=== PATIENT | female | born 1950 | race Caucasian/White ===

== ENCOUNTER 2020-03-06 08:54 | Outpatient (CLI) | payer MEDICARE, MEDICAID, SELFPAY ==
--- NOTE | ~2020-03-06 | MR_ITS ---
EXAMINATION: MR pelvis wo/w con INDICATION: Right ovarian mass TECHNIQUE: Coronal SSFSE ARC, Sagittal T2 FRFSE small rskoh-zz-xlea, Coronal 2D FIESTA FatSat, Axial SSFSE BH ARC, Axial 3D DualEcho BH, Axial STIR, Axial DWI b=500, pre and dynamic postcontrast Axial L CINTHYA ARC COMPARISON: 08/03/2019 CONTRAST: Multihance, 10 cc FINDINGS: There is a stable 3.5 x 2.6 cm heterogeneously enhancing mass of the right adnexa. The mass enhances more vigorously than the adjacent uterus. There are no pathologically enlarged pelvic lymph nodes. No dilated loops of bowel are present. There is mild lumbar spondylosis. IMPRESSION: 1. Stable enhancing solid mass of the right adnexa. Differential is unchanged including ovarian neopl asm and pedunculated fibroid. Surgical consultation is recommended if not previously obtained. Reviewed, dictated and finalized at location A. IMPRESSION: 1. Stable enhancing solid mass of the right adnexa. Differential is unchanged i ncluding ovarian neoplasm and pedunculated fibroid. Surgical consultation is re commended if not previously obtained.
[2020-03-06 09:27] LABS: Estimated Glomerular Filt Rate 44
== END 2020-03-06 08:55 | disposition home or self-care (01) ==
PROVIDERS: PCP Internal Medicine
DX: N83.8 Other noninflammatory disorders of ovary, fallopian tube and broad ligament (principal)
CPT/HCPCS: 72197; A9577

== ENCOUNTER 2020-07-02 10:56 | Outpatient (NON) | payer MEDICARE, SELFPAY ==
[2020-07-02 11:19] LABS: Basophils Absolute Auto 0.05 K/mm3 (0.00-0.10); Basophils Percent Auto 0.7 % (0.0-1.0); Eosinophils Absolute Auto 0.27 K/mm3 (0.02-0.50); Hematocrit 48.2 % (35.0-42.0); Hemoglobin 14.8 g/dL (11.7-13.8); Immature Granulocyte Absolute 0.02 K/mm3 (0.00-0.00); Immature Granulocyte Percent A 0.3 % (0.0-0.0); Lymphocytes Absolute Auto 1.22 K/mm3 (1.10-4.50); Lymphocytes Percent Auto 18.1 % (18.0-42.0); Mean Corpuscular HGB Conc 30.7 g/dL (32.0-36.0); Mean Corpuscular Hemoglobin 28.3 pg (27.0-31.0); Mean Corpuscular Volume 92.2 fL (78.0-102.0); Mean Platelet Volume 10.7 fl (9.2-11.8); Monocytes Absolute Auto 0.71 K/mm3 (0.10-0.90); Monocytes Percent Auto 10.5 % (2.0-11.0); Neutrophils Absolute Auto 4.5 K/mm3 (1.7-7.2); Neutrophils Percent Auto 66.4 % (50.0-70.0); Platelet Count Result 275 K/mm3 (150-420); Red Blood Count 5.23 M/mm3 (4.20-5.40); Red Cell Distribution Width 13.6 % (11.6-14.4); White Blood Count 6.7 K/mm3 (4.8-10.8)
[2020-07-02 11:24] LABS: Add Urine Microscopic? NO; Appearance Urine Clear (Clear); Bilirubin Urine Negative (Negative); Blood Urine Negative (Negative); Color Urine Yellow (Yellow); Glucose Urine UA Negative (Negative); Ketones Urine Negative (Negative); Leukocyte Esterase Ur Negative LEU/UL (Negative); Nitrate Urine Negative (Negative); Protein Urine Negative (Negative); Specific Grav Ur 1.015 (1.010-1.020); Urobilinogen Urine 0.2 mg/dL (0.2-1.0)
[2020-07-02 11:50] LABS: Alanine Aminotransferase 24 U/L (14-59); Albumin Level 3.4 g/dL (3.4-5.0); Alkaline Phosphatase 74 U/L (46-116); Anion Gap 7 mmol/L (8-16); Aspartate Amino Transferase 18 U/L (15-37); Bilirubin,Total 0.6 mg/dL (0.00-1.00); Blood Urea Nitrogen 17 mg/dL (7-18); Calcium 9.1 mg/dL (8.5-10.1); Carbon Dioxide 32 mmol/L (21-32); Chloride 105 mmol/L (98-108); Estimated Glomerular Filt Rate 43; Ferritin 44 ng/mL (8-252); Glucose 79 mg/dL (70-99); Iron 47 ug/dL (50-170); Lipase 198 U/L (73-393); Osmolality Calculated 298 mOsm/kg (285-295); Percent Iron Saturation 19 % (12-57); Potassium 4.6 mmol/L (3.5-5.1); Sodium 144 mmol/L (136-145); Total Protein 6.1 g/dL (6.4-8.2)
== END 2020-07-02 10:57 ==
LOC: CHSLAB 10:57
PROVIDERS: Visit Provider Internal Medicine
DX: E78.5 Hyperlipidemia, unspecified (principal); I10 Essential (primary) hypertension; E61.1 Iron deficiency
CPT/HCPCS: 36415; 80053; 81003; 82728; 83540; 83550; 83690; 85025

== ENCOUNTER 2020-10-19 08:00 | Outpatient (CLI) | payer MEDICARE, MEDICAID, SELFPAY ==
[2020-10-19] MEDS: IRON SUCROSE COMPLEX 300 MG in SODIUM CHLORIDE 0.9% IV 250 ML 125 MG IVPB (08:32)
== END 2020-10-19 08:01 | disposition home or self-care (01) ==
LOC: CHSTREATRM 08:04
PROVIDERS: PCP Internal Medicine; Visit Provider Internal Medicine
DX: D50.9 Iron deficiency anemia, unspecified (principal)
CPT/HCPCS: 96365; 96366; J1756; J7050

== ENCOUNTER 2020-11-02 10:13 | Outpatient (CLI) | payer MEDICARE, MEDICAID, SELFPAY ==
--- NOTE | 2020-11-02 10:28 | PC.NURSE ---
Pt to room 228 per wc. To chair with standby assist. A&Ox3. Has no questions or complaints. Oriented to room, call bel in reach. Reminded to call with needs.
[2020-11-02] MEDS: IRON SUCROSE COMPLEX 300 MG in SODIUM CHLORIDE 0.9% IV 250 ML 125 MG IVPB (10:42)
--- NOTE | 2020-11-02 12:45 | PC.NURSE ---
Venofer infused as ordered. Pt tolerated well. Has no complaints. Discharged back to [place] per accompanied by [facility].
== END 2020-11-02 10:14 | disposition home or self-care (01) ==
PROVIDERS: PCP Internal Medicine; Visit Provider Internal Medicine
DX: D50.9 Iron deficiency anemia, unspecified (principal)
CPT/HCPCS: 96365; 96366; J1756; J7050

== ENCOUNTER 2020-11-16 10:04 | Outpatient (CLI) | payer MEDICARE, MEDICAID, SELFPAY ==
--- NOTE | 2020-11-16 10:20 | PC.NURSE ---
PT TO ROOM 228 PER WC, TO CHAIR WITH STANDBY ASSIST. A&OX3. HAS NO QUESTIONS OR COMPLAINTS. ORIENTED TO ROOM, CALL TRISTAN IN REACH. REMINDED TO CALL WITH NEEDS.
[2020-11-16] MEDS: IRON SUCROSE COMPLEX 300 MG in SODIUM CHLORIDE 0.9% IV 250 ML 125 MG IVPB (10:47)
--- NOTE | 2020-11-16 11:30 | PC.NURSE ---
PT SLEEPING IN CHAIR, APPEARS COMFORTABLE.
--- NOTE | 2020-11-16 13:00 | PC.NURSE ---
VENOFER INFUSED ORDERED. PT TOLERATED WELL. HAS NO QUESTIONS OR COMPLAINTS. A&OX3. DISCHARGED TO HOME PER TO [facility].
== END 2020-11-16 10:05 | disposition home or self-care (01) ==
LOC: CHSTREATRM 10:06
PROVIDERS: PCP Internal Medicine; Visit Provider Internal Medicine
DX: D50.9 Iron deficiency anemia, unspecified (principal)
CPT/HCPCS: 96365; 96366; J1756; J7050

== ENCOUNTER 2020-11-28 10:36 | Outpatient (NON) | payer MEDICARE, SELFPAY ==
[2020-11-28 10:46] LABS: Basophils Absolute Auto 0.04 K/mm3 (0.00-0.10); Basophils Percent Auto 0.6 % (0.0-1.0); Eosinophils Percent Auto 5.6 % (1.0-6.0); Hematocrit 49.3 % (35.0-42.0); Hemoglobin 15.7 g/dL (11.7-13.8); Immature Granulocyte Absolute 0.02 K/mm3 (0.00-0.00); Immature Granulocyte Percent A 0.3 % (0.0-0.0); Lymphocytes Percent Auto 20.9 % (18.0-42.0); Mean Corpuscular HGB Conc 31.8 g/dL (32.0-36.0); Mean Corpuscular Hemoglobin 29.1 pg (27.0-31.0); Mean Corpuscular Volume 91.5 fL (78.0-102.0); Mean Platelet Volume 10.5 fl (9.2-11.8); Monocytes Absolute Auto 0.81 K/mm3 (0.10-0.90); Monocytes Percent Auto 11.3 % (2.0-11.0); Neutrophils Absolute Auto 4.4 K/mm3 (1.7-7.2); Neutrophils Percent Auto 61.3 % (50.0-70.0); Platelet Count Result 261 K/mm3 (150-420); Red Blood Count 5.39 M/mm3 (4.20-5.40); Red Cell Distribution Width 13.9 % (11.6-14.4); White Blood Count 7.2 K/mm3 (4.8-10.8)
[2020-11-28 11:10] LABS: Alanine Aminotransferase 33 U/L (14-59); Albumin Level 3.4 g/dL (3.4-5.0); Alkaline Phosphatase 68 U/L (46-116); Anion Gap 7 mmol/L (8-16); Aspartate Amino Transferase 22 U/L (15-37); Bilirubin,Total 0.6 mg/dL (0.00-1.00); Blood Urea Nitrogen 19 mg/dL (7-18); Calcium 8.8 mg/dL (8.5-10.1); Carbon Dioxide 31 mmol/L (21-32); Chloride 103 mmol/L (98-108); Cholesterol 139 mg/dL (0-200); Estimated Glomerular Filt Rate 44; Ferritin 229 ng/mL (8-252); Glucose 79 mg/dL (70-99); HDL Direct 51 mg/dL (40-60); Iron 48 ug/dL (50-170); LDL Cholesterol Calculated 70 mg/dL (<130); Osmolality Calculated 293 mOsm/kg (285-295); Potassium 4.5 mmol/L (3.5-5.1); Sodium 141 mmol/L (136-145); Total Protein 6.4 g/dL (6.4-8.2); Triglycerides 92 mg/dL (0-150)
== END 2020-11-28 10:37 ==
LOC: CHSLAB 10:37
PROVIDERS: Visit Provider Internal Medicine
DX: E78.2 Mixed hyperlipidemia (principal); E61.1 Iron deficiency; N18.2 Chronic kidney disease, stage 2 (mild)
CPT/HCPCS: 36415; 80053; 80061; 82728; 83540; 85025

== ENCOUNTER 2021-01-14 09:23 | Outpatient (NON) | payer MEDICARE, SELFPAY ==
[2021-01-14 09:59] LABS: Basophils Absolute Auto 0.05 K/mm3 (0.00-0.10); Basophils Percent Auto 0.7 % (0.0-1.0); Eosinophils Absolute Auto 0.32 K/mm3 (0.02-0.50); Eosinophils Percent Auto 4.6 % (1.0-6.0); Hematocrit 49.6 % (35.0-42.0); Hemoglobin 15.6 g/dL (11.7-13.8); Immature Granulocyte Absolute 0.02 K/mm3 (0.00-0.00); Immature Granulocyte Percent A 0.3 % (0.0-0.0); Lymphocytes Absolute Auto 1.57 K/mm3 (1.10-4.50); Lymphocytes Percent Auto 22.4 % (18.0-42.0); Mean Corpuscular HGB Conc 31.5 g/dL (32.0-36.0); Mean Corpuscular Hemoglobin 28.9 pg (27.0-31.0); Mean Corpuscular Volume 91.9 fL (78.0-102.0); Mean Platelet Volume 10.3 fl (9.2-11.8); Monocytes Absolute Auto 0.67 K/mm3 (0.10-0.90); Monocytes Percent Auto 9.5 % (2.0-11.0); Neutrophils Absolute Auto 4.4 K/mm3 (1.7-7.2); Neutrophils Percent Auto 62.5 % (50.0-70.0); Platelet Count Result 265 K/mm3 (150-420)
[2021-01-14 10:52] LABS: Ferritin 152 ng/mL (8-252); Iron 43 ug/dL (50-170); Percent Iron Saturation 18 % (12-57); Vitamin B12 598 pg/mL (193-986)
== END 2021-01-14 09:24 | disposition home or self-care (01) ==
LOC: CHSLAB 09:25
PROVIDERS: PCP Internal Medicine; Visit Provider Internal Medicine
DX: D50.9 Iron deficiency anemia, unspecified (principal)
CPT/HCPCS: 36415; 82607; 82728; 83540; 83550; 85025

== ENCOUNTER 2021-02-01 10:00 | Outpatient (CLI) | payer MEDICARE, MEDICAID, SELFPAY ==
[2021-02-01] MEDS: IRON SUCROSE COMPLEX 300 MG in SODIUM CHLORIDE 0.9% IV 250 ML 125 MG IVPB (10:44)
[2021-02-01 10:51] VITALS: BP 125/66; PULSE 69; RESP 16; O2SAT 95
--- NOTE | 2021-02-01 12:58 | PC.NURSE ---
Patient tolerated #1 of 3 q 2 week Venofer IV infusions. Educated on Venofer given. No concerns voiced. Will return February 15 @ 1000 for #2. Safe exit of hospital.
== END 2021-02-01 10:01 | disposition home or self-care (01) ==
LOC: CHSTREATRM 10:03
PROVIDERS: PCP Internal Medicine; Visit Provider Internal Medicine
DX: D50.9 Iron deficiency anemia, unspecified (principal)
CPT/HCPCS: 96365; 96366; J1756; J7050

== ENCOUNTER 2021-02-04 13:37 | Emergency (ER) | payer MEDICARE, MEDICAID, SELFPAY ==
[2021-02-04 13:40] VITALS: BP 129/84; PULSE 68; RESP 20; TEMP 36.9; O2SAT 100
--- NOTE | 2021-02-04 14:18 | ED.SKABFB ---
HPI - Skin/Abscess/Foreign Bdy General Chief complaint: Extremity Injury, Upper Stated complaint: Ambulance Source: patient and EMS Mode of arrival: ambulatory History of Present Illness HPI narrative: this is a 70-year-old female with history of iron deficiency anemia COPD depression that recently received IV infusion iron and few days later developed some well demarcated area of erythema mildly warm with some mild tenderness no tenseness in her muscles has good range of motion there is no fever or chills. MD complaint: discoloration Onset (ago): day(s) Location: R hand ( right arm) Severity: mild Related Data Home Medications Medication Instructions Recorded Confirmed acetaminophen 500 mg capsule 500 mg PO Q6H PRN 11/24/19 02/04/21 albuterol sulfate 90 mcg/actuation 2 puff INHALATION Q4H PRN gm MDD 11/24/19 02/04/21 aerosol inhaler 1999 alendronate 70 mg tablet 70 mg PO WEEKLY 11/24/19 02/04/21 aspirin 81 mg tablet,delayed 81 mg PO DAILY 11/24/19 02/04/21 release atorvastatin 40 mg tablet 40 mg PO DAILY 11/24/19 02/04/21 escitalopram oxalate 20 mg tablet 10 mg PO DAILY 11/24/19 02/04/21 ferrous sulfate 325 mg (65 mg 325 mg PO BID tablet 11/24/19 02/04/21 iron) tablet fluticasone propionate 115 2 puff INHALATION BID 11/24/19 02/04/21 mcg-salmeterol 21 mcg/actuation HFA inhaler furosemide 40 mg tablet 40 mg PO QAM 11/24/19 02/04/21 ipratropium 0.5 mg-albuterol 3 mg 3 ml INHALATION Q4H PRN 11/24/19 02/04/21 (2.5 mg base)/3 mL nebulization soln levetiracetam 250 mg tablet 250 mg PO Q12H 11/24/19 02/04/21 magnesium hydroxide 400 mg/5 mL 30 ml PO DAILY PRN ml 11/24/19 02/04/21 oral suspension melatonin 5 mg capsule 5 mg PO DAILY 11/24/19 02/04/21 potassium chloride 20 mEq 20 meq PO DAILY 11/24/19 02/04/21 tablet,extended release ropinirole 1 mg tablet 1 mg PO TID 11/24/19 02/04/21 spironolactone 25 mg tablet 25 mg PO DAILY 11/24/19 02/04/21 tiotropium bromide 18 mcg capsule 1 cap INHALATION DAILY 11/24/19 02/04/21 with inhalation device umeclidinium 62.5 mcg/actuation 1 inhalation INHALATION DAILY 11/24/19 02/04/21 blister powder for inhalation Allergies Allergy/AdvReac Type Severity Reaction Status Date / Time adhesive Allergy Unknown Verified 04/11/19 13:24 hydrocodone Allergy Unknown Verified 04/11/19 13:24 iodine Allergy Unknown Verified 04/11/19 13:24 latex Allergy Unknown Verified 09/26/14 10:09 lorazepam Allergy Unknown Verified 06/13/19 13:48 nickel Allergy Unknown Verified 04/11/19 13:25 Review of Systems Review of Systems: All systems reviewed & are unremarkable except as noted in HPI and below PMFSH Past Medical History Medical History CKD (chronic kidney disease) stage 3, GFR 30-59 ml/min COPD (chronic obstructive pulmonary disease) Diastolic dysfunction Dyslipidemia Edema of both legs Family History Family History Sibling Family history of arthritis Social History Social History Smoking status: Former smoker Smoking end date: 09/14/05 Alcohol intake: never Exam Const: General: no acute distress and alert Orientation/consciousness: patient oriented x3 HENMT: Head: normal to inspection Eyes: Conjunctivae: conjunctivae normal Pupils: Equal, round and reactive pupils present Neck: Neck: normal visual inspection, no lymphadenopathy and no meningeal signs Chest: Chest palpation & inspection: normal inspection of the chest Resp: Effort & Inspection: normal respiratory effort Auscultation: clear to auscultation bilaterally Cardio: Rate: regular rate Rhythm: regular rhythm GI: GI Palp: Yes Soft to palpation Percussion: Yes normal to percussion Back/Spine/Pelvis: Back: no CVA tenderness Skin: Other: Has a well demarcated area of erythema with some mild warmth and some mild tend
[2021-02-04 14:31] VITALS: BP 124/75; PULSE 83; RESP 20; TEMP 36.6; O2SAT 97
== END 2021-02-04 14:32 | disposition home or self-care (01) ==
PROVIDERS: Emergency Provider Emergency Medicine; PCP Internal Medicine
DX: L03.113 Cellulitis of right upper limb (principal)
CPT/HCPCS: 99283

== ENCOUNTER 2021-03-06 08:50 | Outpatient (CLI) | payer MEDICARE, MEDICAID, SELFPAY ==
--- NOTE | ~2021-03-06 | MR_ITS ---
EXAMINATION: MR pelvis wo/w con DATE: 03/06/2021 12:41 INDICATION: Right ovarian mass. TECHNIQUE: Magnetic resonance imaging (MRI) of the pelvis was performed without and with 10 mL MultiH ance intravenous contrast. Sequences included coronal and axial T2-weighted FS FSE, axial T1-weighted FS FSE, axial LAVA, coronal FS FIESTA, coronal LAVA-flex, axial T2-weighted FSE, axial dual-echo T1- weighted FSPGR, axial FS FIESTA, axial DWI, and small jjsfn-mg-bjex sagittal, coronal, and axial T2-w eighted FSE. Postcontrast sequences included coronal LAVA-flex and a time course of axial LAVA. COMPARISON: Pelvis MRI 03/06/2020, 08/03/2019, pelvis ultrasound 09/16/2014, CT abdomen and pelvis 015 FINDINGS: There are no dilated loops of bowel. There is a ventral hernia containing nonobstructed bowel. There is a stent graft in abdominal aorta and the common iliac arteries. There is a 2.2 cm subserosal fibro id in the fundus of the uterus. There is a 3.4 cm enhancing mass posterior to the uterus on the right . The right ovary is not specifically identified. There is a 19 mm cyst in left ovary, likely benign. There are no pathologically enlarged lymph nodes. There is no free intraperitoneal fluid. IMPRESSION: 1. 3.4 cm right adnexal mass, stable from 08/03/19 and increased in size from 2.3 cm on 09/16/14. The d ifferential diagnosis includes pedunculated fibroid and less likely ovarian neoplasm. Reviewed, dictated and finalized at location A. IMPRESSION: 1. 3.4 cm right adnexal mass, stable from 08/03/19 and increased in size from 2 .3 cm on 09/16/14. The differential diagnosis includes pedunculated fibroid and l ess likely ovarian neoplasm.
[2021-03-06 09:25] LABS: Anion Gap 8 mmol/L (8-16); Blood Urea Nitrogen 17 mg/dL (7-18); Calcium 9.4 mg/dL (8.5-10.1); Carbon Dioxide 32 mmol/L (21-32); Chloride 104 mmol/L (98-108); Estimated Glomerular Filt Rate 43; Glucose 103 mg/dL (70-99); Osmolality Calculated 299 mOsm/kg (285-295); Sodium 144 mmol/L (136-145)
[2021-03-06 15:54] LABS: Basophils Absolute Auto 0.04 K/mm3 (0.00-0.10); Basophils Percent Auto 0.5 % (0.0-1.0); Eosinophils Absolute Auto 0.36 K/mm3 (0.02-0.50); Eosinophils Percent Auto 4.3 % (1.0-6.0); Hematocrit 49.7 % (35.0-42.0); Hemoglobin 15.7 g/dL (11.7-13.8); Immature Granulocyte Absolute 0.03 K/mm3 (0.00-0.00); Immature Granulocyte Percent A 0.4 % (0.0-0.0); Lymphocytes Absolute Auto 1.39 K/mm3 (1.10-4.50); Lymphocytes Percent Auto 16.7 % (18.0-42.0); Mean Corpuscular HGB Conc 31.6 g/dL (32.0-36.0); Mean Corpuscular Hemoglobin 29.7 pg (27.0-31.0); Mean Platelet Volume 10.7 fl (9.2-11.8); Monocytes Absolute Auto 0.75 K/mm3 (0.10-0.90); Neutrophils Absolute Auto 5.8 K/mm3 (1.7-7.2); Neutrophils Percent Auto 69.1 % (50.0-70.0); Platelet Count Result 279 K/mm3 (150-420); Red Blood Count 5.29 M/mm3 (4.20-5.40); Red Cell Distribution Width 14.5 % (11.6-14.4); White Blood Count 8.3 K/mm3 (4.8-10.8)
[2021-03-06 16:16] LABS: Alanine Aminotransferase 28 U/L (14-59); Albumin Level 3.7 g/dL (3.4-5.0); Alkaline Phosphatase 71 U/L (46-116); Aspartate Amino Transferase 17 U/L (15-37); Bilirubin Direct 0.2 mg/dL (0-0.2); Bilirubin,Total 0.7 mg/dL (0.00-1.00); Cholesterol 142 mg/dL (0-200); Creatine Kinase 114 U/L (26-192); Ferritin 187 ng/mL (8-252); HDL Direct 49 mg/dL (40-60); Iron 50 ug/dL (50-170); LDL Cholesterol Calculated 71 mg/dL (<130); Percent Iron Saturation 18 % (12-57); Total Protein 6.7 g/dL (6.4-8.2); Triglycerides 109 mg/dL (0-150)
[2021-03-09 12:55] LABS: Vitamin D 25 Hydroxy 117 ng/mL (30-100)
== END 2021-03-06 08:51 | disposition home or self-care (01) ==
LOC: CHSIMG 08:52
PROVIDERS: PCP Internal Medicine; Visit Provider Obstetrics & Gynecology Gynecologic Oncology
DX: N83.8 Other noninflammatory disorders of ovary, fallopian tube and broad ligament (principal); C34.90 Malignant neoplasm of unspecified part of unspecified bronchus or lung; E78.5 Hyperlipidemia, unspecified; M81.0 Age-related osteoporosis without current pathological fracture; E61.1 Iron deficiency
CPT/HCPCS: 36415; 72197; 80048; 80061; 80076; 82306; 82550; 82728; 83540; 83550; 85025; A9577

== ENCOUNTER 2021-03-11 16:06 | Outpatient (NON) | payer MEDICARE, SELFPAY ==
[2021-03-14 04:44] LABS: CA-125 10 U/mL (<35)
== END 2021-03-11 16:07 | disposition home or self-care (01) ==
LOC: CHSLAB 16:10
PROVIDERS: Visit Provider Obstetrics & Gynecology Gynecologic Oncology
DX: R19.09 Other intra-abdominal and pelvic swelling, mass and lump (principal); N83.8 Other noninflammatory disorders of ovary, fallopian tube and broad ligament
CPT/HCPCS: 36415; 86304; 86305

== ENCOUNTER 2021-06-18 10:39 | Outpatient (NON) | payer MEDICARE, SELFPAY ==
[2021-06-18 11:01] LABS: Appearance Urine Clear (Clear); Bilirubin Urine Negative (Negative); Color Urine Light Yellow (Yellow); Glucose Urine UA Negative (Negative); Ketones Urine Negative (Negative); Leukocyte Esterase Ur 1+ (Negative); Nitrate Urine Negative (Negative); Protein Urine Negative (Negative); Specific Grav Ur 1.015 (1.010-1.020); Urobilinogen Urine 0.2 mg/dL (0.2-1.0)
[2021-06-18 11:13] LABS: Add Urine Microscopic? YES; Bacteria Urine 1+ /hpf; Blood Urine Trace-Intact (Negative); RBC Urine 0-2 /hpf (0-2); Squamous Epithelial Cell Urine Moderate /hpf (Few)
== END 2021-06-18 10:40 | disposition home or self-care (01) ==
LOC: CHSLAB 10:40
PROVIDERS: Visit Provider Internal Medicine
DX: N39.0 Urinary tract infection, site not specified (principal)
CPT/HCPCS: 81001; 87086; 87088

== ENCOUNTER 2021-09-25 10:43 | Outpatient (NON) | payer MEDICARE, SELFPAY ==
[2021-09-25 11:03] LABS: Add Urine Microscopic? YES; Appearance Urine Clear (Clear); Basophils Absolute Auto 0.06 K/mm3 (0.00-0.10); Basophils Percent Auto 0.8 % (0.0-1.0); Bilirubin Urine Negative (Negative); Blood Urine Negative (Negative); Color Urine Yellow (Yellow); Eosinophils Absolute Auto 0.37 K/mm3 (0.02-0.50); Eosinophils Percent Auto 5.1 % (1.0-6.0); Glucose Urine UA Negative (Negative); Hematocrit 49.4 % (35.0-42.0); Hemoglobin 15.6 g/dL (11.7-13.8); Immature Granulocyte Absolute 0.02 K/mm3 (0.00-0.00); Immature Granulocyte Percent A 0.3 % (0.0-0.0); Ketones Urine Negative (Negative); Leukocyte Esterase Ur Trace LEU/UL (Negative); Lymphocytes Absolute Auto 1.63 K/mm3 (1.10-4.50); Lymphocytes Percent Auto 22.6 % (18.0-42.0); Mean Corpuscular HGB Conc 31.6 g/dL (32.0-36.0); Mean Corpuscular Hemoglobin 29.7 pg (27.0-31.0); Mean Corpuscular Volume 94.1 fL (78.0-102.0); Mean Platelet Volume 11.3 fl (9.2-11.8); Monocytes Absolute Auto 0.77 K/mm3 (0.10-0.90); Monocytes Percent Auto 10.7 % (2.0-11.0); Neutrophils Absolute Auto 4.4 K/mm3 (1.7-7.2); Neutrophils Percent Auto 60.5 % (50.0-70.0); Nitrate Urine Negative (Negative); Platelet Count Result 303 K/mm3 (150-420); Protein Urine Negative (Negative); Red Blood Count 5.25 M/mm3 (4.20-5.40); Red Cell Distribution Width 13.4 % (11.6-14.4); Specific Grav Ur 1.025 (1.010-1.020); Urobilinogen Urine 0.2 mg/dL (0.2-1.0); White Blood Count 7.2 K/mm3 (4.8-10.8); pH Urine 5.5 (5.0-8.0)
[2021-09-25 11:10] LABS: Bacteria Urine 1+ /hpf; RBC Urine None seen /hpf (0-2); Squamous Epithelial Cell Urine Moderate /hpf (Few)
[2021-09-25 11:43] LABS: Alanine Aminotransferase 28 U/L (14-59); Albumin Level 3.4 g/dL (3.4-5.0); Alkaline Phosphatase 79 U/L (46-116); Anion Gap 6 mmol/L (8-16); Aspartate Amino Transferase 27 U/L (15-37); Bilirubin,Total 0.5 mg/dL (0.00-1.00); Blood Urea Nitrogen 10 mg/dL (7-18); Carbon Dioxide 32 mmol/L (21-32); Chloride 104 mmol/L (98-108); Cholesterol 156 mg/dL (0-200); Estimated Glomerular Filt Rate 45; Ferritin 163 ng/mL (8-252); Glucose 73 mg/dL (70-99); HDL Direct 52 mg/dL (40-60); Iron 60 ug/dL (50-170); LDL Cholesterol Calculated 79 mg/dL (<130); Osmolality Calculated 292 mOsm/kg (285-295); Potassium 4.3 mmol/L (3.5-5.1); Sodium 142 mmol/L (136-145); Total Protein 6.7 g/dL (6.4-8.2); Triglycerides 125 mg/dL (0-150)
[2021-09-28 12:31] LABS: Vitamin D 25 Hydroxy 118 ng/mL (30-100)
== END 2021-09-25 10:44 | disposition home or self-care (01) ==
LOC: CHSLAB 10:44
PROVIDERS: Visit Provider Internal Medicine
DX: E78.5 Hyperlipidemia, unspecified (principal); M81.0 Age-related osteoporosis without current pathological fracture; D64.0 Hereditary sideroblastic anemia; I10 Essential (primary) hypertension; N39.0 Urinary tract infection, site not specified
CPT/HCPCS: 36415; 80053; 80061; 81001; 82306; 82728; 83540; 85025

== ENCOUNTER 2021-11-22 11:06 | Outpatient (CLI) | payer MEDICARE, SELFPAY ==
[2021-11-22 11:21] LABS: Basophils Absolute Auto 0.04 K/mm3 (0.00-0.10); Basophils Percent Auto 0.4 % (0.0-1.0); Eosinophils Absolute Auto 0.23 K/mm3 (0.02-0.50); Eosinophils Percent Auto 2.3 % (1.0-6.0); Hematocrit 47.8 % (35.0-42.0); Hemoglobin 15.4 g/dL (11.7-13.8); Immature Granulocyte Absolute 0.03 K/mm3 (0.00-0.00); Immature Granulocyte Percent A 0.3 % (0.0-0.0); Lymphocytes Absolute Auto 1.25 K/mm3 (1.10-4.50); Lymphocytes Percent Auto 12.6 % (18.0-42.0); Mean Corpuscular HGB Conc 32.2 g/dL (32.0-36.0); Mean Corpuscular Hemoglobin 29.8 pg (27.0-31.0); Mean Corpuscular Volume 92.5 fL (78.0-102.0); Mean Platelet Volume 9.6 fl (9.2-11.8); Neutrophils Absolute Auto 7.8 K/mm3 (1.7-7.2); Neutrophils Percent Auto 78.4 % (50.0-70.0); Platelet Count Result 325 K/mm3 (150-420); Red Blood Count 5.17 M/mm3 (4.20-5.40); White Blood Count 9.9 K/mm3 (4.8-10.8)
--- NOTE | 2021-11-22 11:30 | ECG_ITS ---
Measurements Intervals [place] Rate: 75 P: 75 LA: 162 QRS: 87 QRSD: 90 T: 25 QT: 393 QTc: 439 Interpretive Statements SINUS RHYTHM NONSPECIFIC T-WAVE ABNORMALITY BORDERLINE ECG NO PREVIOUS ECG AVAILABLE FOR COMPARISON Electronically Signed On 11-22-2021 15:08:11 ELA TEACHER by Elijah Roberts M.D.
[2021-11-22 11:45] LABS: Alanine Aminotransferase 22 U/L (14-59); Albumin Level 3.1 g/dL (3.4-5.0); Alkaline Phosphatase 82 U/L (46-116); Anion Gap 8 mmol/L (8-16); Aspartate Amino Transferase 17 U/L (15-37); Bilirubin,Total 0.7 mg/dL (0.00-1.00); Blood Urea Nitrogen 10 mg/dL (7-18); Carbon Dioxide 31 mmol/L (21-32); Chloride 103 mmol/L (98-108); Creatine Kinase 95 U/L (26-192); Estimated Glomerular Filt Rate 43; Glucose 87 mg/dL (70-99); NT Pro B Type Natriuretic Pept 428 pg/mL (0-125); Osmolality Calculated 292 mOsm/kg (285-295); Sodium 142 mmol/L (136-145); Total Protein 7.2 g/dL (6.4-8.2); Troponin I 8.9 ng/L (0.00-60.4)
[2021-11-22 11:49] LABS: D Dimer 2.24 mg/L (0.19-0.50)
== END 2021-11-22 11:07 | disposition home or self-care (01) ==
LOC: CHSLAB 11:08
PROVIDERS: PCP Internal Medicine; Visit Provider Internal Medicine
DX: R06.00 Dyspnea, unspecified (principal)
CPT/HCPCS: 36415; 80053; 82550; 82553; 83880; 84484; 85025; 85380; 93005

== ENCOUNTER 2021-11-22 11:53 | Emergency (ER) | payer MEDICARE, MEDICAID, SELFPAY ==
--- NOTE | ~2021-11-22 | XR_ITS ---
EXAMINATION: XR chest 1V portable EXAM DATE: 11/22/2021 12:27 INDICATION: SOB times one week. TECHNIQUE: Portable AP frontal chest x-ray was obtained. Comparison is made to prior examination from 09/22/2019. FINDINGS: Some ill-defined bibasilar reticulation, possible mild pulmonary edema or pneumonia without confluent consolidation. There is old right rib fracture. There is no pneumothorax suspected. Cardio mediastinal silhouette is normal. There is aortic arteriosclerosis. Similar appearance to lungs IMPRESSION: Indistinct basilar reticulation, possible mild edema or pneumonia. Reviewed, dictated and finalized at location A. PAPER DISTRIBUTOR SUPERVISOR
--- NOTE | ~2021-11-22 | NM_ITS ---
EXAMINATION: NM pulmonary perfusion EXAM DATE: 11/22/2021 15:41 INDICATION: Shortness of breath for a week. TECHNIQUE: A perfusion lung scan was performed. The patient was injected with 5 mCi technetium 99m M AA and imaged. The Modified PIOPED 2 criteria used for interpretation of this perfusion only study, w ith 3 possible interpretations (PE present, PE absent, nondiagnostic) based on findings present, and correlated with a recent chest x-ray. More specifically, a high probability scan will be interpreted as pulmonary embolism present. A normal or near normal scan will be interpreted as pulmonary embolism absent. And finally an intermediate probability scan will be interpreted as nondiagnostic. Correlat ion is made to chest x-ray earlier same date.. FINDINGS: Chest x-ray demonstrated no focal consolidation. There are multiple segmental perfusion def ects, largest involving most of the right upper lobe, but also other segmental perfusion defects in t he lungs. High probability pulmonary embolism. IMPRESSION: Pulmonary embolism present. Reviewed, dictated and finalized at location A. ER MAKER IMPRESSION: Pulmonary embolism present.
[2021-11-22 12:00] VITALS: BP 111/80; PULSE 71; RESP 20; TEMP 36.7; O2SAT 93
--- NOTE | 2021-11-22 12:20 | ED.GENADULT ---
HPI - General Adult General Chief complaint: Recheck/Abnormal Lab/Rx Stated complaint: SOB Source: patient Mode of arrival: ambulatory Limitations: no limitations History of Present Illness HPI narrative: Teresa is a 71F with a PMH of CKD, COPD, HLD, HFpEF and osteoprosis that presented to the ED from her PCP office with a week of SOB off and on. It started suddenly 5 nights ago. She has had more coughing with the SOB but no sputum production. It is not worse with activity. She denies CP, lightheadedness and N/V. Related Data Home Medications Medication Instructions Recorded Confirmed acetaminophen 500 mg capsule 500 mg PO Q6H PRN 11/24/19 11/22/21 albuterol sulfate 90 mcg/actuation 2 puff INHALATION Q4H PRN gm MDD 11/24/19 11/22/21 aerosol inhaler 1999 alendronate 70 mg tablet 70 mg PO WEEKLY 11/24/19 11/22/21 aspirin 81 mg tablet,delayed 81 mg PO DAILY 11/24/19 11/22/21 release atorvastatin 40 mg tablet 40 mg PO DAILY 11/24/19 11/22/21 escitalopram oxalate 20 mg tablet 10 mg PO DAILY 11/24/19 11/22/21 ferrous sulfate 325 mg (65 mg 325 mg PO BID tablet 11/24/19 11/22/21 iron) tablet fluticasone propionate 115 2 puff INHALATION BID 11/24/19 11/22/21 mcg-salmeterol 21 mcg/actuation HFA inhaler furosemide 40 mg tablet 40 mg PO QAM 11/24/19 11/22/21 ipratropium 0.5 mg-albuterol 3 mg 3 ml INHALATION Q4H PRN 11/24/19 11/22/21 (2.5 mg base)/3 mL nebulization soln levetiracetam 250 mg tablet 250 mg PO Q12H 11/24/19 11/22/21 magnesium hydroxide 400 mg/5 mL 30 ml PO DAILY PRN ml 11/24/19 11/22/21 oral suspension melatonin 5 mg capsule 5 mg PO HS 11/24/19 11/22/21 potassium chloride 20 mEq 20 meq PO DAILY 11/24/19 11/22/21 tablet,extended release ropinirole 1 mg tablet 1 mg PO TID 11/24/19 11/22/21 spironolactone 25 mg tablet 25 mg PO DAILY 11/24/19 11/22/21 tiotropium bromide 18 mcg capsule 1 cap INHALATION DAILY 11/24/19 11/22/21 with inhalation device umeclidinium 62.5 mcg/actuation 1 inhalation INHALATION DAILY 11/24/19 11/22/21 blister powder for inhalation Allergies Allergy/AdvReac Type Severity Reaction Status Date / Time adhesive Allergy Unknown Verified 04/11/19 13:24 hydrocodone Allergy Unknown Verified 04/11/19 13:24 iodine Allergy Unknown Verified 04/11/19 13:24 latex Allergy Unknown Verified 09/26/14 10:09 lorazepam Allergy Unknown Verified 06/13/19 13:48 nickel Allergy Unknown Verified 04/11/19 13:25 Review of Systems Constitutional: Constitutional: Reports no additional constitutional complaints, Denies chills and Denies fever(s) Eyes: Eyes: Reports no additional eye complaints ENT: Reports system reviewed and no additional complaints, except as documented Cardiovascular: Cardiovascular: Reports no additional cardiovascular complaints Respiratory: Respiratory: Reports as per HPI Gastrointestinal: Gastrointestinal: Reports no additional gastrointestinal complaints Genitourinary: Genitourinary: Reports no additional female genitourinary complaints Musculoskeletal: Musculoskeletal: Reports no additional musculoskeletal complaints Integumentary/Breasts: Skin/Breast: Reports system reviewed and no additional complaints, except as docu Neurologic: Reports system reviewed and no additional complaints, except as documented Psychiatric: Psychiatric: Reports no additional psychiatric complaints Endocrine: Endocrine: Reports no additional endocrine complaints Hematologic/Lymphatic: Hematologic/Lymphatic: Reports no additional hematologic/lymphatic complaints Allergic/Immunologic: Allergic/Immunologic: Reports no additional allergic/immunologic complaints [facility] Past Medical History Medical History CKD (chronic kidney disease) stage 3, GFR 30-59 ml/min COPD (chronic obstructive pulmonary disease) Diastolic dysfunction Dyslipidemia Edema of both legs Family History Family History (Reviewed 11/22/21 @ 12:42 by Sukhjinder Danielson
[2021-11-22] MEDS: AZITHROMYCIN 250 MG TABLET 500 MG PO (13:09)
[2021-11-22] MEDS: predniSONE 40 MG, predniSONE 10 MG 50 MG PO (13:09)
[2021-11-22] MEDS: FUROSEMIDE INJ 40 MG/4 ML VIAL IV PUSH (13:09)
[2021-11-22 13:11] VITALS: BP 124/73; PULSE 71; RESP 20; TEMP 36.9; O2SAT 91
--- NOTE | 2021-11-22 13:31 | PC.NURSE ---
awaiting return call for nuclear medicine staff per berry in xray. pt resting per cot. no complaints or needs at time.
--- NOTE | 2021-11-22 13:46 | PC.NURSE ---
patient resting eyes closed, lights off. call jenkins in reach. pulmonary perfusion test is pending nuclear medication staff arrival at approx. 3pm
[2021-11-22 13:57] VITALS: BP 134/78; PULSE 64; RESP 20; O2SAT 91
--- NOTE | 2021-11-22 14:50 | PC.NURSE ---
Portia from nuclear medicine is here and awaiting dose for testing. pt up to commode and in wheelchair.
--- NOTE | 2021-11-22 15:16 | PC.NURSE ---
pt taken to xray department for pulmonary perfusion test.
[2021-11-22 16:46] VITALS: BP 127/76; PULSE 67; RESP 20; O2SAT 92
== END 2021-11-22 16:45 | disposition home or self-care (01) ==
PROVIDERS: Emergency Provider Family Medicine; PCP Internal Medicine
DX: I26.99 Other pulmonary embolism without acute cor pulmonale (principal); J44.9 Chronic obstructive pulmonary disease, unspecified; E78.5 Hyperlipidemia, unspecified; R60.9 Edema, unspecified; Z87.891 Personal history of nicotine dependence
CPT/HCPCS: 36415; 71045; 78580; 80053; 82550; 82553; 83880; 84484; 85025; 85380; 93005; 96374; 99284; A9270; A9540; J1940; J7512

== ENCOUNTER 2021-11-25 10:12 | Emergency (ER) | payer MEDICARE, BC, MEDICAID, SELFPAY ==
[2021-11-25 10:21] VITALS: BP 139/70; PULSE 90; RESP 16; TEMP 36.5; O2SAT 92
--- NOTE | 2021-11-25 10:28 | ED.GENADULT ---
HPI - General Adult General Chief complaint: Unspecified Stated complaint: ambulance Time Seen by Provider: 11/25/21 10:28 Source: patient, family and RN notes reviewed Mode of arrival: EMS Limitations: no limitations History of Present Illness Onset (ago): hour(s) (1) Associated symptoms: denies other symptoms Related Data Home Medications Medication Instructions Recorded Confirmed acetaminophen 500 mg capsule 500 mg PO Q6H PRN 11/24/19 11/25/21 albuterol sulfate 90 mcg/actuation 2 puff INHALATION Q4H PRN gm MDD 11/24/19 11/25/21 aerosol inhaler 1999 alendronate 70 mg tablet 70 mg PO WEEKLY 11/24/19 11/25/21 aspirin 81 mg tablet,delayed 81 mg PO DAILY 11/24/19 11/25/21 release atorvastatin 40 mg tablet 40 mg PO DAILY 11/24/19 11/25/21 escitalopram oxalate 20 mg tablet 10 mg PO DAILY 11/24/19 11/25/21 ferrous sulfate 325 mg (65 mg 325 mg PO BID tablet 11/24/19 11/25/21 iron) tablet fluticasone propionate 115 2 puff INHALATION BID 11/24/19 11/25/21 mcg-salmeterol 21 mcg/actuation HFA inhaler furosemide 40 mg tablet 40 mg PO QAM 11/24/19 11/25/21 ipratropium 0.5 mg-albuterol 3 mg 3 ml INHALATION Q4H PRN 11/24/19 11/25/21 (2.5 mg base)/3 mL nebulization soln levetiracetam 250 mg tablet 250 mg PO Q12H 11/24/19 11/25/21 magnesium hydroxide 400 mg/5 mL 30 ml PO DAILY PRN ml 11/24/19 11/25/21 oral suspension melatonin 5 mg capsule 5 mg PO HS 11/24/19 11/25/21 potassium chloride 20 mEq 20 meq PO DAILY 11/24/19 11/25/21 tablet,extended release ropinirole 1 mg tablet 1 mg PO TID 11/24/19 11/25/21 spironolactone 25 mg tablet 25 mg PO DAILY 11/24/19 11/25/21 tiotropium bromide 18 mcg capsule 1 cap INHALATION DAILY 11/24/19 11/25/21 with inhalation device umeclidinium 62.5 mcg/actuation 1 inhalation INHALATION DAILY 11/24/19 11/25/21 blister powder for inhalation Allergies Allergy/AdvReac Type Severity Reaction Status Date / Time adhesive Allergy Unknown Unknown Verified 11/25/21 10:16 hydrocodone Allergy Unknown Unknown Verified 11/25/21 10:16 iodine Allergy Unknown Unknown Verified 11/25/21 10:16 latex Allergy Unknown Unknown Verified 11/25/21 10:16 lorazepam Allergy Unknown Unknown Verified 11/25/21 10:16 nickel Allergy Unknown Unknown Verified 11/25/21 10:16 [facility] Past Medical History Medical History CKD (chronic kidney disease) stage 3, GFR 30-59 ml/min COPD (chronic obstructive pulmonary disease) Diastolic dysfunction Dyslipidemia Edema of both legs Family History Family History Sibling Family history of arthritis Social History Social History Smoking status: Former smoker Smoking end date: 09/14/05 Alcohol intake: never Discharge Plan Discharge Prescriptions: No Action apixaban 5 mg tablet 10 mg PO BID 7 Days Qty: 28 RF: 0 spironolactone 25 mg tablet 25 mg PO DAILY RF: 0 furosemide [Lasix] 40 mg tablet 40 mg PO QAM RF: 0 Spiriva with HandiHaler 18 mcg capsule, w/inhalation device 1 cap INHALATION DAILY RF: 0 ropinirole 1 mg tablet 1 mg PO TID RF: 0 albuterol sulfate [ProAir HFA] 90 mcg/actuation HFA aerosol inhaler 2 puff INHALATION Q4H MDD 2000 PRN (Reason: Pain (Scale Score 4-6)) RF: 0 potassium chloride 20 mEq tablet extended release 20 meq PO DAILY RF: 0 magnesium hydroxide [Milk of Magnesia] 400 mg/5 mL suspension 30 ml PO DAILY PRN (Reason: Constipation) RF: 0 melatonin 5 mg capsule 5 mg PO HS RF: 0 levetiracetam 250 mg tablet 250 mg PO Q12H RF: 0 ipratropium-albuterol 0.5 mg-3 mg(2.5 mg base)/3 mL solution for nebulization 3 ml INHALATION Q4H PRN (Reason: Shortness Of Breath Or Wheezing) RF: 0 Incruse Ellipta 62.5 mcg/actuation blister with device 1 inhalation INHALATION DAILY RF: 0 ferrous sulfate 325 mg (65 mg iron) tablet
--- NOTE | 2021-11-25 10:42 | ED.WEAKNESS ---
HPI - Weakness General Chief complaint: Unspecified Stated complaint: ambulance Time Seen by Provider: 11/25/21 10:28 Source: patient, EMS and RN notes reviewed Mode of arrival: EMS Limitations: no limitations History of Present Illness HPI Narrative: Patient was here 3 days ago and diagnosed at that time with a pulmonary embolism. She has a history of COPD as well. This morning at the custodial she apparently had saturations in the 80s. Her daughter states that she saw her 2 days ago on Thursday and she seemed fatigued. Then yesterday she spent all day in bed. One patient states she just feels tired weak all over. They called her primary care physician who sent her out here for further evaluation because she had the pulmonary embolism. She has been taking her Eliquis for the last 2 days. Daughter says when she talked to her this morning she just did not seem herself. Nurses at the custodial felt she was not acting right. When she arrives here she has no complaints. She only states that she is fatigued. MD Complaint: generalized weakness Onset (ago): day(s) (1) Duration: constant Location: generalized Severity: mild Relieving factors: rest Exacerbating factors: none Context: new medication Associated symptoms: denies other symptoms Related Data Home Medications Medication Instructions Recorded Confirmed acetaminophen 500 mg capsule 500 mg PO Q6H PRN 11/24/19 11/25/21 albuterol sulfate 90 mcg/actuation 2 puff INHALATION Q4H PRN gm MDD 11/24/19 11/25/21 aerosol inhaler 1999 alendronate 70 mg tablet 70 mg PO WEEKLY 11/24/19 11/25/21 aspirin 81 mg tablet,delayed 81 mg PO DAILY 11/24/19 11/25/21 release atorvastatin 40 mg tablet 40 mg PO DAILY 11/24/19 11/25/21 escitalopram oxalate 20 mg tablet 10 mg PO DAILY 11/24/19 11/25/21 ferrous sulfate 325 mg (65 mg 325 mg PO BID tablet 11/24/19 11/25/21 iron) tablet fluticasone propionate 115 2 puff INHALATION BID 11/24/19 11/25/21 mcg-salmeterol 21 mcg/actuation HFA inhaler furosemide 40 mg tablet 40 mg PO QAM 11/24/19 11/25/21 ipratropium 0.5 mg-albuterol 3 mg 3 ml INHALATION Q4H PRN 11/24/19 11/25/21 (2.5 mg base)/3 mL nebulization soln levetiracetam 250 mg tablet 250 mg PO Q12H 11/24/19 11/25/21 magnesium hydroxide 400 mg/5 mL 30 ml PO DAILY PRN ml 11/24/19 11/25/21 oral suspension melatonin 5 mg capsule 5 mg PO HS 11/24/19 11/25/21 potassium chloride 20 mEq 20 meq PO DAILY 11/24/19 11/25/21 tablet,extended release ropinirole 1 mg tablet 1 mg PO TID 11/24/19 11/25/21 spironolactone 25 mg tablet 25 mg PO DAILY 11/24/19 11/25/21 tiotropium bromide 18 mcg capsule 1 cap INHALATION DAILY 11/24/19 11/25/21 with inhalation device umeclidinium 62.5 mcg/actuation 1 inhalation INHALATION DAILY 11/24/19 11/25/21 blister powder for inhalation Allergies Allergy/AdvReac Type Severity Reaction Status Date / Time adhesive Allergy Unknown Unknown Verified 11/25/21 10:16 hydrocodone Allergy Unknown Unknown Verified 11/25/21 10:16 iodine Allergy Unknown Unknown Verified 11/25/21 10:16 latex Allergy Unknown Unknown Verified 11/25/21 10:16 lorazepam Allergy Unknown Unknown Verified 11/25/21 10:16 nickel Allergy Unknown Unknown Verified 11/25/21 10:16 Review of Systems Review of Systems: All systems reviewed & are unremarkable except as noted in HPI and below Constitutional: Constitutional: Denies chills and Denies fever(s) PMFSH Past Medical History Medical History (Updated 11/25/21 @ 11:50 by Harrison Lerner MD) CKD (chronic kidney disease) stage 3, GFR 30-59 ml/min COPD (chronic obstructive pulmonary disease) Diastolic dysfunction Dyslipidemia Edema of both legs History of tobacco abuse Small cell lung cancer Family History Family History Sibling Family history of arthritis Social History Social History Smoking status: Former smoker
[2021-11-25 11:00] LABS: Basophils Absolute Auto 0.06 K/mm3 (0.00-0.10); Basophils Percent Auto 0.6 % (0.0-1.0); Eosinophils Percent Auto 2.1 % (1.0-6.0); Hematocrit 47.3 % (35.0-42.0); Hemoglobin 15.3 g/dL (11.7-13.8); Immature Granulocyte Absolute 0.05 K/mm3 (0.00-0.00); Immature Granulocyte Percent A 0.5 % (0.0-0.0); Lymphocytes Percent Auto 16.6 % (18.0-42.0); Mean Corpuscular HGB Conc 32.3 g/dL (32.0-36.0); Mean Corpuscular Hemoglobin 29.9 pg (27.0-31.0); Mean Corpuscular Volume 92.4 fL (78.0-102.0); Mean Platelet Volume 9.7 fl (9.2-11.8); Monocytes Absolute Auto 0.63 K/mm3 (0.10-0.90); Monocytes Percent Auto 6.5 % (2.0-11.0); Neutrophils Absolute Auto 7.1 K/mm3 (1.7-7.2); Neutrophils Percent Auto 73.7 % (50.0-70.0); Platelet Count Result 359 K/mm3 (150-420); Red Blood Count 5.12 M/mm3 (4.20-5.40); White Blood Count 9.6 K/mm3 (4.8-10.8)
[2021-11-25 11:13] LABS: Add Urine Microscopic? YES; Appearance Urine Clear (Clear); Bilirubin Urine Negative (Negative); Blood Urine Negative (Negative); Color Urine Yellow (Yellow); Glucose Urine UA Negative (Negative); Ketones Urine Negative (Negative); Leukocyte Esterase Ur Trace LEU/UL (Negative); Nitrate Urine Negative (Negative); Protein Urine Negative (Negative); Specific Grav Ur 1.025 (1.010-1.020); Urobilinogen Urine 0.2 mg/dL (0.2-1.0); pH Urine 5.5 (5.0-8.0)
[2021-11-25 11:17] LABS: RBC Urine None seen /hpf (0-2); Squamous Epithelial Cell Urine Moderate /hpf (Few); WBC Urine 0-3 /hpf (0-3)
[2021-11-25 11:18] LABS: Bacteria Urine Trace /hpf
[2021-11-25 11:24] LABS: Alanine Aminotransferase 26 U/L (14-59); Albumin Level 3.3 g/dL (3.4-5.0); Alkaline Phosphatase 77 U/L (46-116); Anion Gap 9 mmol/L (8-16); Aspartate Amino Transferase 21 U/L (15-37); Bilirubin,Total 0.5 mg/dL (0.00-1.00); Blood Urea Nitrogen 20 mg/dL (7-18); Calcium 9.5 mg/dL (8.5-10.1); Carbon Dioxide 30 mmol/L (21-32); Chloride 103 mmol/L (98-108); Estimated CRCL calculation 33 ml/min; Estimated Glomerular Filt Rate 42; Glucose 85 mg/dL (70-99); Magnesium 1.9 mg/dL (1.8-2.4); Osmolality Calculated 295 mOsm/kg (285-295); Potassium 4.1 mmol/L (3.5-5.1); Sodium 142 mmol/L (136-145); Thyroid Stimulating Hormone 1.76 uIU/mL (0.36-3.74); Total Protein 7.3 g/dL (6.4-8.2)
[2021-11-25 11:59] VITALS: BP 133/87; PULSE 81; RESP 16; TEMP 36.4; O2SAT 93
== END 2021-11-25 12:01 ==
PROVIDERS: Emergency Provider Emergency Medicine; PCP Internal Medicine
DX: R53.1 Weakness (principal)
CPT/HCPCS: 36415; 80053; 81001; 83735; 84443; 85025; 99283

== ENCOUNTER 2021-12-01 08:26 | Emergency (ER) | payer MEDICARE, BC, MEDICAID, SELFPAY ==
--- NOTE | ~2021-12-01 | CT_ITS ---
EXAMINATION: CT soft tissue neck wo con DATE: 12/01/2021 09:11 INDICATION: Anterior neck pain. Patient allergic to CT contrast. TECHNIQUE: Computed tomography (CT) of the neck was performed without intravenous contrast. The dose- length product was 554.11 mGy-cm. Automated exposure control and iterative reconstruction technique w ere employed. COMPARISON: None FINDINGS: Neck soft tissues are within normal limits. No focal abnormal fluid collections or masses. No lymphadenopathy. Mucosal and parapharyngeal spaces are symmetric. Airway is patent. The parotid, s ubmandibular and thyroid glands are symmetric. There is emphysema in the lung apices. Mild cervical s pondylosis. No focal lytic or blastic lesions. IMPRESSION: 1. No significant abnormality of the neck soft tissues. Reviewed, dictated and finalized at location A.
[2021-12-01 08:37] VITALS: BP 115/71; PULSE 80; RESP 16; TEMP 36.1; O2SAT 95
--- NOTE | 2021-12-01 08:40 | ED.URI ---
HPI - URI/Sore Throat General Chief Complaint: Unspecified Stated Complaint: ambulance Time Seen by Provider: 12/01/21 08:40 Source: patient, family and RN notes reviewed Mode of arrival: ambulatory Limitations: no limitations History of Present Illness MD elicited complaint: sore throat Onset (ago): hour(s) Consistency: constant Severity: moderate Exacerbating factors: swallowing Relieving factors: nothing Associated symptoms: denies other symptoms Treatments prior to arrival: none Related Data Home Medications Medication Instructions Recorded Confirmed acetaminophen 500 mg capsule 500 mg PO Q6H PRN 11/24/19 12/01/21 albuterol sulfate 90 mcg/actuation 2 puff INHALATION Q4H PRN gm MDD 11/24/19 12/01/21 aerosol inhaler 1999 alendronate 70 mg tablet 70 mg PO WEEKLY 11/24/19 12/01/21 aspirin 81 mg tablet,delayed 81 mg PO DAILY 11/24/19 12/01/21 release atorvastatin 40 mg tablet 40 mg PO DAILY 11/24/19 12/01/21 escitalopram oxalate 20 mg tablet 10 mg PO DAILY 11/24/19 12/01/21 ferrous sulfate 325 mg (65 mg 325 mg PO BID tablet 11/24/19 12/01/21 iron) tablet fluticasone propionate 115 2 puff INHALATION BID 11/24/19 12/01/21 mcg-salmeterol 21 mcg/actuation HFA inhaler furosemide 40 mg tablet 40 mg PO QAM 11/24/19 12/01/21 ipratropium 0.5 mg-albuterol 3 mg 3 ml INHALATION Q4H PRN 11/24/19 12/01/21 (2.5 mg base)/3 mL nebulization soln levetiracetam 250 mg tablet 250 mg PO Q12H 11/24/19 12/01/21 magnesium hydroxide 400 mg/5 mL 30 ml PO DAILY PRN ml 11/24/19 12/01/21 oral suspension melatonin 5 mg capsule 5 mg PO HS 11/24/19 12/01/21 potassium chloride 20 mEq 20 meq PO DAILY 11/24/19 12/01/21 tablet,extended release ropinirole 1 mg tablet 1 mg PO TID 11/24/19 12/01/21 spironolactone 25 mg tablet 25 mg PO DAILY 03/12/20 03/20/22 tiotropium bromide 18 mcg capsule 1 cap INHALATION DAILY 11/24/19 12/01/21 with inhalation device umeclidinium 62.5 mcg/actuation 1 inhalation INHALATION DAILY 11/24/19 12/01/21 blister powder for inhalation Allergies Allergy/AdvReac Type Severity Reaction Status Date / Time adhesive Allergy Unknown Unknown Verified 12/01/21 08:41 hydrocodone Allergy Unknown Unknown Verified 12/01/21 08:41 iodine Allergy Unknown Unknown Verified 12/01/21 08:41 latex Allergy Unknown Unknown Verified 12/01/21 08:41 lorazepam Allergy Unknown Unknown Verified 12/01/21 08:41 nickel Allergy Unknown Unknown Verified 12/01/21 08:41 Review of Systems Review of Systems: All systems reviewed & are unremarkable except as noted in HPI and below PMFSH Past Medical History Medical History CKD (chronic kidney disease) stage 3, GFR 30-59 ml/min COPD (chronic obstructive pulmonary disease) Diastolic dysfunction Dyslipidemia Edema of both legs History of tobacco abuse Small cell lung cancer Family History Family History Sibling Family history of arthritis Social History Social History Smoking status: Former smoker Smoking end date: 09/14/05 Alcohol intake: never Exam Const: General: healthy appearing, no acute distress and alert Nutritional Appearance: well nourished Orientation/consciousness: patient oriented x3 HENMT: Head: normal to inspection Face and sinus: normal facial exam Mouth: Yes moist mucous membranes Throat: posterior oropharynx normal Eyes: Conjunctivae: conjunctivae normal Pupils: Equal, round and reactive pupils present EOM: EOMs intact bilaterally Neck: Neck: no lymphadenopathy, trachea midline, supple and tender (left soft tissue trachea) Resp: Effort & Inspection: normal respiratory effort Auscultation: clear to auscultation bilaterally Cardio: Rate: regular rate Rhythm: regular rhythm GI: GI Palp: Yes Soft to palpation, No Tenderness to palpation present (GI) and Yes Hernia present (large ventra
[2021-12-01] MEDS: MAG HYDROX/ALUMINUM HYD/SIMETH 30 ML, PHENobarb/HYOSCY/ATROPINE/SCOP 32.4 MG, LIDOCAINE... PO (09:55)
[2021-12-01 10:12] VITALS: BP 127/88; PULSE 79; RESP 16; TEMP 36; O2SAT 95
== END 2021-12-01 10:26 ==
PROVIDERS: Emergency Provider Emergency Medicine; PCP Internal Medicine
DX: I88.9 Nonspecific lymphadenitis, unspecified (principal); K21.9 Gastro-esophageal reflux disease without esophagitis; N18.9 Chronic kidney disease, unspecified; J44.9 Chronic obstructive pulmonary disease, unspecified; E78.5 Hyperlipidemia, unspecified; Z87.891 Personal history of nicotine dependence; Z85.118 Personal history of other malignant neoplasm of bronchus and lung
CPT/HCPCS: 70490; 99284; A9270

== ENCOUNTER 2022-01-24 12:09 | Outpatient (CLI) | payer MEDICARE, BC, MEDICAID, SELFPAY ==
--- NOTE | 2022-01-24 12:12 | ECHO_ITS ---
Patient Info Name: Teresa Levi Age: 71 years : 1950 Gender: Female Ht: 65 in Wt: 168 lbs BSA: 1.89 m2 HR: 73 bpm BP: 109 / 57 mmHg Technical Quality: Fair Exam Date: 01/24/2022 12:27 PM Exam Location: [facility] Patient Status: Outpatient Admit Date: 01/24/2022 Staff Ordering Physician: Oli Meyers DO Architectural Intern: Gamaliel Teran RDCS, RT Attending Provider: Oli Meyers DO Referring Physician: Luigi BULLARD; Exam Type: CA echo dop color flow w con Study Info Indications I26.09 - Other pulmonary embolism with acute cor pulmonale Complete two-dimensional, color flow and Doppler transthoracic echocardiogram is performed with contrast to opacify the left ventricle and to improve the deliniation of the left ventricle endocardial borders. Summary 1. Left ventricular chamber dimension is normal. 2. Definity contrast administered improved wall motion interpretation. 3. Left ventricular systolic function is normal, estimated at 55-60%. 4. The left ventricular diastolic function is grade I diastolic dysfunction. 5. E/e' 9 is minimally elevated. Left Ventricle E/e' 9 is minimally elevated. Definity contrast administered improved wall motion interpretation. Left ventricular chamber dimension is normal. Left ventricular systolic function is normal, estimated at 55-60%. The left ventricular diastolic function is grade I diastolic dysfunction. Right Ventricle Right ventricular systolic function is normal based on normal TAPSE 1.9 cm. Right ventricular chamber dimension is not well visualized. Left Atria Left atrial chamber dimension is normal. Right Atria Right atrial chamber dimension is normal. Aortic Valve The aortic valve is trileaflet. There is no aortic valve stenosis. There is no aortic valve regurgitation. Pulmonic Valve There is no pulmonic regurgitation. Mitral Valve There is no mitral valve stenosis. There is no mitral valve regurgitation. Tricuspid Valve There is no tricuspid valve regurgitation. Pericardium/Pleural There is no pericardial effusion. Inferior Vena Cava Normal inferior vena cava with >50% collapse upon inspiration consistent with normal right atrial pressure, 5 mmHg. Aorta The aortic root size at the sinus of Valsalva is normal. Left Ventricular Outflow Tract Name Value Normal LVOT 2D LVOT Diameter 2.00 cm LVOT Doppler LVOT Peak Velocity 97.38 cm/s LVOT Peak Gradient 4 mmHg LVOT Mean Gradient 2 mmHg LVOT VTI 18.46 cm LVOT VTI/AV VTI Ratio 0.64 LVOT Stroke Volume 57.95 ml Mitral Valve Name Value Normal MV Doppler MV Decel Crenshaw 539.37 cm/s2 MV PHT 0 s MV Area (PHT)
== END 2022-01-24 12:10 | disposition home or self-care (01) ==
PROVIDERS: PCP Internal Medicine; Visit Provider Internal Medicine Cardiovascular Disease
DX: I26.99 Other pulmonary embolism without acute cor pulmonale (principal)
CPT/HCPCS: C8929

== ENCOUNTER 2022-03-10 09:27 | Inpatient (IN) | payer MEDICARE, MEDICAID, SELFPAY ==
[2022-03-10] VITALS (15 sets, daily range): BP systolic 107–133; BP diastolic 33–72; PULSE 73–122; RESP 16–28; TEMP 36.2–37.1; O2SAT 88–100
--- NOTE | ~2022-03-10 | XR_ITS ---
EXAMINATION: XR chest 1V portable INDICATION: Shortness of breath TECHNIQUE: Portable AP chest at 0959 hours COMPARISON: 11/22/2021 FINDINGS: The lungs are hyperinflated but free of acute opacities. No pleural effusion or pneumothora x. The cardiomediastinal silhouette is normal. IMPRESSION: 1. No acute cardiopulmonary abnormality. 2. Emphysema. Reviewed, dictated and finalized at location A.
--- NOTE | 2022-03-10 09:35 | ED.SOB ---
HPI - SOB/Dyspnea General Chief Complaint: Shortness of Breath/Dyspnea Stated Complaint: ambulance Time Seen by Provider: 03/10/22 09:35 History of Present Illness HPI Narrative: 71-year-old female with a history of hypertension, small cell lung cancer status post chemo / RT 6 years ago, pulmonary embolism on Eliquis, COPD, diastolic CHF,dyslipidemia, CKD presents to the ER with a five-day history of -- worsening shortness of breath for which she has been using albuterol inhalers. -- today she was noted to be in severe distress with oxygen saturation of 50% as noted by EMS. EMS gave her 125 of Solu-Medrol and albuterol nebulizer treatment. -- She has a COVID test done every 2 days and has had a negative test till date. -- bilateral leg swelling She denied any chest pain. She denied any fever. No cough or sputum production. On arrival to the ER her breathing has improved and she is saturating 97% on room air. MD elicited complaint: shortness of breath Pertinent past history: COPD, congestive heart failure and PE Onset (ago): day(s) ( Started 5 days ago) Context: occurred during exertion Timing: constant Severity: severe Exacerbating factors: nothing Relieving factors: nothing Known history of: COPD, congestive heart failure and PE Associated symptoms: wheezing and chest congestion Related Data Home oxygen amount: none Home Medications Medication Instructions Recorded Confirmed acetaminophen 500 mg capsule 500 mg PO Q6H PRN Pain 11/24/19 03/10/22 albuterol sulfate 90 mcg/actuation 2 puff inhalation Q4H PRN Pain 11/24/19 03/10/22 aerosol inhaler (ProAir HFA) (Scale Score 4-6) alendronate 70 mg tablet 70 mg PO WEEKLY 11/24/19 03/10/22 aspirin 81 mg tablet,delayed 81 mg PO DAILY 11/24/19 03/10/22 release (Adult Aspirin Regimen) atorvastatin 40 mg tablet 40 mg PO DAILY 11/24/19 03/10/22 escitalopram oxalate 20 mg tablet 10 mg PO DAILY 11/24/19 03/10/22 ferrous sulfate 325 mg (65 mg 650 mg PO DAILY 11/24/19 03/10/22 iron) tablet furosemide 40 mg tablet (Lasix) 40 mg PO QAM 11/24/19 03/10/22 levetiracetam 250 mg tablet 250 mg PO Q12H 11/24/19 03/10/22 melatonin 5 mg capsule 5 mg PO HS 11/24/19 03/10/22 potassium chloride 20 mEq 20 meq PO DAILY 11/24/19 03/10/22 tablet,extended release ropinirole 1 mg tablet 1 mg PO TID 11/24/19 03/10/22 spironolactone 25 mg tablet 25 mg PO DAILY 11/24/19 03/10/22 alprazolam 0.5 mg tablet 1 tablet QID PRN Anxiety 03/10/22 03/10/22 ergocalciferol (vitamin D2) 1,250 1 cap WEEKLY 03/10/22 03/10/22 mcg (50,000 unit) capsule multivitamin with folic acid 400 1 tablet PO DAILY 03/10/22 03/10/22 mcg tablet (Daily-Annie (with folic acid)) Allergies Allergy/AdvReac Type Severity Reaction Status Date / Time adhesive Allergy Unknown Unknown Verified 03/10/22 09:36 hydrocodone Allergy Unknown Unknown Verified 03/10/22 09:36 iodine Allergy Unknown Unknown Verified 03/10/22 09:36 latex Allergy Unknown Unknown Verified 03/10/22 09:36 lorazepam Allergy Unknown Unknown Verified 03/10/22 09:36 nickel Allergy Unknown Unknown Verified 03/10/22 09:36 Review of Systems Review of Systems: All systems reviewed & are unremarkable except as noted in HPI and below Constitutional: Constitutional: Reports as per HPI, Reports no additional constitutional complaints and Reports fatigue Eyes: Eyes: Reports as per HPI and Reports no additional eye complaints ENT: Reports system reviewed and no additional complaints, except as documented and Reports as per HPI Cardiovascular: Cardiovascular: Reports as per HPI and Reports no additional cardiovascular complaints Respiratory: Respiratory: Reports as per HPI, Reports no additional respiratory complaints, Reports chest congestion, Reports dyspnea and Reports wheezing Gastrointestinal: Gastrointestinal: Reports as per HPI and Reports no additional gastrointestinal complaints Genitourinary: Genitourinary: Reports no additional female genitourinary complaints a
--- NOTE | 2022-03-10 09:46 | ECG_ITS ---
Measurements Intervals Leo Rate: 93 P: 81 MA: 172 QRS: 42 QRSD: 85 T: 71 QT: 369 QTc: 459 Interpretive Statements SINUS RHYTHM WITH OCCASIONAL VENTRICULAR PREMATURE COMPLEXES ABNORMAL ECG COMPARED TO ECG 11/22/2021 11:32:42 1 PVC IS SEEN Electronically Signed On 03-10-2022 15:42:35 CDT by Alex Burdick M.D.
[2022-03-10 10:17] LABS: Basophils Absolute Auto 0.05 K/mm3 (0.00-0.10); Basophils Percent Auto 0.5 % (0.0-1.0); Eosinophils Absolute Auto 0.49 K/mm3 (0.02-0.50); Eosinophils Percent Auto 5.2 % (1.0-6.0); Hematocrit 32.4 % (35.0-42.0); Hemoglobin 9.5 g/dL (11.7-13.8); Immature Granulocyte Absolute 0.04 K/mm3 (0.00-0.00); Immature Granulocyte Percent A 0.4 % (0.0-0.0); Immature Platelet Fraction Pct 1.7 % (1.0-7.0); Lymphocytes Absolute Auto 1.92 K/mm3 (1.10-4.50); Lymphocytes Percent Auto 20.6 % (18.0-42.0); Mean Corpuscular HGB Conc 29.3 g/dL (32.0-36.0); Mean Corpuscular Hemoglobin 29.5 pg (27.0-31.0); Mean Corpuscular Volume 100.6 fL (78.0-102.0); Monocytes Absolute Auto 0.65 K/mm3 (0.10-0.90); Neutrophils Absolute Auto 6.2 K/mm3 (1.7-7.2); Neutrophils Percent Auto 66.3 % (50.0-70.0); Platelet Count Result 410 K/mm3 (150-420); Red Blood Count 3.22 M/mm3 (4.20-5.40); Red Cell Distribution Width 13.2 % (11.6-14.4); White Blood Count 9.3 K/mm3 (4.8-10.8)
[2022-03-10 10:30] LABS: Lactic Acid Reflex 1.4 mmol/L (0.4-2.0)
[2022-03-10 10:37] LABS: Alanine Aminotransferase 23 U/L (14-59); Albumin Level 3.2 g/dL (3.4-5.0); Alkaline Phosphatase 78 U/L (46-116); Anion Gap 5 mmol/L (8-16); Aspartate Amino Transferase 20 U/L (15-37); Bilirubin,Total 0.3 mg/dL (0.00-1.00); Blood Urea Nitrogen 20 mg/dL (7-18); Calcium 9.2 mg/dL (8.5-10.1); Carbon Dioxide 35 mmol/L (21-32); Chloride 105 mmol/L (98-108); Estimated CRCL calculation 32 ml/min; Estimated Glomerular Filt Rate 38; Glucose 109 mg/dL (70-99); NT Pro B Type Natriuretic Pept 346 pg/mL (0-125); Osmolality Calculated 303 mOsm/kg (285-295); Potassium 4.3 mmol/L (3.5-5.1); Sodium 145 mmol/L (136-145); Total Protein 5.9 g/dL (6.4-8.2); Troponin I 8.5 ng/L (0.00-60.4)
[2022-03-10 10:44] LABS: Base Excess ABG 5.9 mmol/L (0-2); HCO3 ABG 31.4 mmol/L (23-29); Oxygen Content ABG 11.7 %vol (16.0-22.0); Oxygen Saturation ABG 80.6 % (95-97); Oxyhemoglobin 80.1 % (94-100); PCO2 ABG 49.9 mmHg (35-45); PO2 ABG 44.3 mmHg (75-85); Total Hemoglobin 10.4 g/dL (12.0-18.0); pH ABG 7.42 (7.35-7.45)
[2022-03-10 10:46] LABS: Device ROOM AIR; Modified Allen's Test Pass; Site Drawn LEFT RADIAL
--- NOTE | 2022-03-10 10:48 | PC.NURSE ---
Pt's O2 81% after being on RA for a while. ERP aware. After ABG's drawn, pt placed on 3L NC.
--- NOTE | 2022-03-10 10:50 | PC.NURSE ---
Pt placed on 3lpm
--- NOTE | 2022-03-10 11:45 | PC.NURSE ---
Rapid COVID test sent to lab [id number]
--- NOTE | 2022-03-10 11:51 | PC.NURSE ---
Spoke with Pt's POA, Isabela Ponce, on the phone and updated her about pt's admission and plan of care.
[2022-03-10 12:10] LABS: SARS-CoV-2 Ag Negative (Negative)
--- NOTE | 2022-03-10 14:09 | PC.NURSE ---
Pt admitted to room 205 from the ER for Exacerbation of CHF & COPD. She is A/O x3. She is very SOB with O2 @ 3L/NC. Denies pain at this time. RN reviewed the Call system, the TV remote and medications.
[2022-03-10] MEDS: rOPINIRole HCL 1 MG TABLET PO ×3 (14:31→21:32)
[2022-03-10] MEDS: ALBUTEROL SULFATE (*SP) INHALER 2 PUFF INHALATION (14:31)
[2022-03-10] MEDS: ALPRAZolam (*CRX) 0.5 MG TABLET PO ×2 (14:32→21:06)
[2022-03-10] MEDS: levETIRAcetam 250 MG TABLET PO (21:06)
[2022-03-10] MEDS: MELATONIN 5 MG TABLET PO (21:06)
[2022-03-10] MEDS: IPRATROPIUM 0.5 MG/ALBUTEROL SULFATE 2.5 MG AMPUL.NEB 3 ML INHALATION (22:55)
[2022-03-11] VITALS (19 sets, daily range): BP systolic 99–126; BP diastolic 56–69; PULSE 62–101; RESP 14–24; TEMP 36.2–36.7; O2SAT 86–100
[2022-03-11] MEDS: IPRATROPIUM 0.5 MG/ALBUTEROL SULFATE 2.5 MG AMPUL.NEB 3 ML INHALATION ×4 (05:12→23:47)
[2022-03-11 05:36] LABS: Hematocrit 30.8 % (35.0-42.0); Hemoglobin 9.1 g/dL (11.7-13.8); Mean Corpuscular HGB Conc 29.5 g/dL (32.0-36.0); Mean Corpuscular Hemoglobin 29.5 pg (27.0-31.0); Platelet Count Result 374 K/mm3 (150-420); Red Blood Count 3.08 M/mm3 (4.20-5.40); Red Cell Distribution Width 13.2 % (11.6-14.4); White Blood Count 9.8 K/mm3 (4.8-10.8)
[2022-03-11 05:46] LABS: Anion Gap 3 mmol/L (8-16); Blood Urea Nitrogen 26 mg/dL (7-18); Calcium 8.9 mg/dL (8.5-10.1); Carbon Dioxide 33 mmol/L (21-32); Chloride 106 mmol/L (98-108); Estimated CRCL calculation 34 ml/min; Estimated Glomerular Filt Rate 41; Glucose 130 mg/dL (70-99); Osmolality Calculated 300 mOsm/kg (285-295); Potassium 4.3 mmol/L (3.5-5.1); Sodium 142 mmol/L (136-145)
--- NOTE | 2022-03-11 08:00 | PM.IMHP ---
H&P: HPI History of Present Illness Date/Time: 03/11/22 08:00 Chief Complaint: Shortness of breath , COPD exacerbation Narrative: This is a 71 Year old female that lives in assisted living that came to the emergency room with shortness of breath. Patient states that any time that she is doing any activity she cannot catch her breath. Patient states she normally uses her inhaler with shortness of breath but has not had it for over 1 month as insurance was requiring her to wait for a new inhaler per patient. Patient informs me that she has a Past medical history of CHF, CKD, PE, Depression, Copd but she does not normally require oxygen. Patient according to her records shows that she had a PE this year and she has been on Eliquis every since and she will remain on it at this time. Patient does not ambulate and is normally in a wheel chair. At this time patient is on 2l NC and with activity still has some shortness of breath. On admission patient was requiring High flow oxygen at 7l NC currently patient is on 3lNC and is 98% at this time we will to monitor patient and wean her down. Patient labs on admission was WBCs 9.3, hemoglobin 9.5, platelet 14, sodium 145, potassium 4.3, BUN 20, creatinine 1.37, glucose 109, troponins normal at 8.5 at this time patient will be admitted as observation patient we will go ahead and evaluate if patient is going to need home oxygen we will continue to attempt to hydrate to fix this acute kidney injury she has at this time. Patient will receive IV steroids as well as IV antibiotic plan will be to return home physical therapy will see. Review of Systems Review of Systems: Shortness of breath All systems reviewed & are unremarkable except as noted in HPI and below PMFSH Past Medical History Medical History CKD (chronic kidney disease) stage 3, GFR 30-59 ml/min COPD (chronic obstructive pulmonary disease) Diastolic dysfunction Dyslipidemia Edema of both legs History of tobacco abuse Small cell lung cancer Family History Family History Sibling Family history of arthritis Social History Social History Smoking packs per day: 1 Smoking cigarettes per day: 20.0 Years smoked: 50 Smoking pack-years: 50.00 Smoking status: Former smoker Tobacco type: cigarettes Second hand tobacco smoke exposure: No Smoking end date: 09/14/05 Alcohol intake: never Substance use: never Substance use type: does not use Gender identity (if verbalized by the patient): Female Sexual Orientation (if Verbalized by the Patient): Straight or Heterosexual Spiritual care concerns: No Comments At time as signature, I have reviewed and agree with nursing past medical, social, surgical and family history. Please see nursing chart for further information. There is no relevant family history pertinent to the presenting complaint. Meds Home Medications and Allergies Home Medications Medication Instructions Recorded Confirmed Type acetaminophen 500 mg capsule 500 mg PO Q6H PRN Pain 11/24/19 03/10/22 History albuterol sulfate 90 mcg/actuation 2 puff inhalation Q4H PRN Pain 11/24/19 03/10/22 History aerosol inhaler (ProAir HFA) (Scale Score 4-6) aspirin 81 mg tablet,delayed 81 mg PO DAILY 11/24/19 03/10/22 History release (Adult Aspirin Regimen) atorvastatin 40 mg tablet 40 mg PO DAILY 11/24/19 03/10/22 History escitalopram oxalate 20 mg tablet 10 mg PO DAILY 11/24/19 03/10/22 History ferrous sulfate 325 mg (65 mg 650 mg PO DAILY 11/24/19 03/10/22 History iron) tablet furosemide 40 mg tablet (Lasix) 40 mg PO QAM 11/24/19 03/10/22 History levetiracetam 250 mg tablet 250 mg PO Q12H 11/24/19 03/10/22 History melatonin 5 mg capsule 5 mg PO HS 11/24/19 03/10/22 History potassium chloride 20 mEq 20 meq PO DAILY 11/24/19 03/10/22 History ta
[2022-03-11] MEDS: ASPIRIN 81 MG ENTERIC TABLET PO (09:00)
[2022-03-11] MEDS: ATORVASTATIN 40 MG TABLET PO (09:04)
[2022-03-11] MEDS: POTASSIUM CHLORIDE 20 MEQ TABLET PO (09:06)
[2022-03-11] MEDS: ALPRAZolam (*CRX) 0.5 MG TABLET PO (09:06)
[2022-03-11] MEDS: FERROUS SULFATE 324 MG TABLET 648 MG PO (09:06)
[2022-03-11] MEDS: ESCITALOPRAM OXALATE 10 MG TABLET PO (09:06)
[2022-03-11] MEDS: SPIRONOLACTONE 25 MG TABLET PO (09:07)
[2022-03-11] MEDS: MULTIVITAMINS THERAPEUTIC TAB (*BKC) 1 TABLET PO (09:07)
[2022-03-11] MEDS: FUROSEMIDE 40 MG TABLET PO (09:08)
[2022-03-11] MEDS: levETIRAcetam 250 MG TABLET PO ×2 (09:08→20:00)
--- NOTE | 2022-03-11 09:12 | HOMEO2EVAL ---
Evaluation was performed at [facility] Home Oxygen Evaluation RC: Home Oxygen (O2) Evaluation Start: 03/10/22 14:37 Freq: ONCE Status: Active Protocol: RPE Activity Type Activity Date Activity User E-sign Co-sign Detail Recorded Client Recorded Date Recorded By Document 03/11/22 08:30 [email or web address] [id number] 03/11/22 09:10 SJB Document 03/11/22 08:33 SJB [id number] 03/11/22 09:10 SJB Document 03/11/22 08:38 SJB [id number] 03/11/22 09:10 SJB 03/11/22 03/11/22 03/11/22 08:30 08:33 08:38 Home O2 Evaluation Test Phase Resting Resting Resting Oxygen Delivery Room Air Nasal Cannula Nasal Cannula Pulse Oximetry (90-100 %) 86 L 89 L 94 Pulse Rate (60-100 beats/min) 101 H 98 89 Activity Tolerance Good Good Rating of Perceived Dyspnea (PD) +1 Mild, +1 Mild, Noticeable to Noticeable to the Participant the Participant but Not to an but Not to an Observer Observer Rate of Perceived Exertion (PE) 6 Very, very 6 Very, very light light Home Oxygen Evaluation Comments Pt sitting in Pt's sp02 only On 2 lpm, pt's chair on room up to 89%, will Sp02 remained air. Pt is not increase 02 to 93-94%. Pt is ambulatory, 2 lpm. very talkative. she uses a Explained to wheelchair to patient that travel around she would be the [place]. getting oxygen Will start ordered for her patient on 1 to have at the lpm due to Sp02 [place] for being 86%. when she goes home. Treatment Charges O2 Evaluation - Inpatient
[2022-03-11] MEDS: FUROSEMIDE INJ 20 MG/2 ML VIAL 10 MG IV PUSH (10:27)
[2022-03-11] MEDS: rOPINIRole HCL 1 MG TABLET PO ×2 (13:03→17:53)
[2022-03-11] MEDS: ACETAMINOPHEN 500 MG TABLET PO (14:00)
[2022-03-11] MEDS: MELATONIN 5 MG TABLET PO (19:59)
[2022-03-12] VITALS (8 sets, daily range): BP systolic 112; BP diastolic 49; PULSE 60–100; RESP 16–20; TEMP 36.9; O2SAT 94–98
[2022-03-12] MEDS: IPRATROPIUM 0.5 MG/ALBUTEROL SULFATE 2.5 MG AMPUL.NEB 3 ML INHALATION ×2 (05:09→11:26)
[2022-03-12] MEDS: ACETAMINOPHEN 500 MG TABLET PO (06:15)
[2022-03-12] MEDS: MULTIVITAMINS THERAPEUTIC TAB (*BKC) 1 TABLET PO (09:12)
[2022-03-12] MEDS: FERROUS SULFATE 324 MG TABLET 648 MG PO (09:12)
[2022-03-12] MEDS: SPIRONOLACTONE 25 MG TABLET PO (09:12)
[2022-03-12] MEDS: rOPINIRole HCL 1 MG TABLET PO (09:13)
[2022-03-12] MEDS: levETIRAcetam 250 MG TABLET PO (09:13)
[2022-03-12] MEDS: FUROSEMIDE 40 MG TABLET PO (09:13)
[2022-03-12] MEDS: POTASSIUM CHLORIDE 20 MEQ TABLET PO (09:13)
[2022-03-12] MEDS: ASPIRIN 81 MG ENTERIC TABLET PO (09:13)
[2022-03-12] MEDS: ATORVASTATIN 40 MG TABLET PO (09:13)
[2022-03-12] MEDS: ESCITALOPRAM OXALATE 10 MG TABLET PO (09:14)
--- NOTE | 2022-03-12 10:35 | PM.DS ---
DS: Admitting Diagnosis Discharge Date 03/12/2022 Admitting Diagnosis COPD congestive heart failure exarbation DS: Discharge Diagnosis Discharge Diagnosis (1) Acute respiratory failure with hypoxia: Code(s): J96.01 - Acute respiratory failure with hypoxia Status: Acute Assessment and Plan: Improving Possibly secondary to CHF exacerbation Patient will discharge home with continuous 2 L supplementary oxygen She will also discharge home with Medrol pack, azithromycin, Tessalon Perles, guaifenesin (2) Asthma exacerbation in COPD: Code(s): J44.1 - Chronic obstructive pulmonary disease with (acute) exacerbation; J45.901 - Unspecified asthma with (acute) exacerbation Status: Acute Assessment and Plan: secondary to CHF exacerbation Patient will discharge home with continuous 2 L supplementary oxygen She will also discharge home with Medrol pack, azithromycin, Tessalon Perles, guaifenesin (3) Diastolic CHF: Code(s): I50.30 - Unspecified diastolic (congestive) heart failure Status: Acute Assessment and Plan: Improved Continue Lasix along with spironolactone (4) CKD (chronic kidney disease) stage 3, GFR 30-59 ml/min: Code(s): N18.30 - Chronic kidney disease, stage 3 unspecified Status: Acute Assessment and Plan: Improved CR 1.89..1.29 Repeat CMP in 1 week with results going to primary care physician (5) Pulmonary embolism: Code(s): I26.99 - Other pulmonary embolism without acute cor pulmonale Status: Acute Assessment and Plan: H/O of PE Continue on Eliquis (6) Dyslipidemia: Code(s): E78.5 - Hyperlipidemia, unspecified Status: Acute Assessment and Plan: continue on home medication monitor and change as indicated DS: Summary Hospital Course Reason for hospitalization: Shortness of breath Hospital Course: This is a 71 Year old female that lives in assisted living that came to the emergency room with shortness of breath. Patient states that any time that she is doing any activity she cannot catch her breath. Patient states she normally uses her inhaler with shortness of breath but has not had it for over 1 month as insurance was requiring her to wait for a new inhaler per patient. Patient informs me that she has a Past medical history of CHF, CKD, PE, Depression, Copd but she does not normally require oxygen. Patient according to her records shows that she had a PE this year and she has been on Eliquis every since and she will remain on it at this time. Patient does not ambulate and is normally in a wheel chair.? Patient condition has improved she will discharge home with oxygen at 2 L continuously. Patient condition has improved her edema to her lower extremity has also improved. Patient continues to have a cough. She was discharged home with azithromycin, Tessalon Perles, guaifenesin, and Medrol pack. She will also discharged home with home health nursing and PT. The patient denies CP, palpitation, extremity numbness, lightheadedness, dizziness, constipation, diarrhea, chills, or fever. Time Spent with Patient Time attestation: Total time spent providing and/or coordinating discharge services: Exam Narrative: GENERAL:Well-appearing, well-nourished, and in no acute distress. HEAD:Normocephalic, atraumatic. EYES: PERRLA and EOMI. ENT: Nares clear, no rhinorrhea or epistaxis. Mucous membranes moist. CHEST: Clear to diminished auscultation. No respiratory distress. Dyspnea on exertion HEART: Regular rate and rhythm. Normal peripheral pulses. ABDOMEN: Soft, nontender, nondistended, normal active bowel sounds. EXTREMITIES: Normal range of motion. trace pitting edema. SKIN: Warm, dry, no rash. NEURO: No focal deficits. Alert and oriented x3. Discharge Plan Discharge Attending physician on discharge: Demarcus Amezcua Discharging Clinician: Gabrielle Quintana Anticipated Discharge Date/Ti
--- NOTE | 2022-03-12 12:42 | PC.NURSE ---
reviewed discharge instructions with pt Isabela crews. All questions answered.
--- NOTE | 2022-03-14 12:44 | PC.NURSE ---
Unable to reach for discharge call back.
== END 2022-03-12 12:35 | disposition home health service (06) | DRG 291 ==
LOC: CHSED 12:22 → CHS2ND 03-11 08:49
PROVIDERS: Nurse Practitioner Family; Admitting Provider Internal Medicine; Emergency Provider Internal Medicine Critical Care Medicine; PCP Internal Medicine; Visit Provider Internal Medicine
DX: I50.33 Acute on chronic diastolic (congestive) heart failure (principal); J96.01 Acute respiratory failure with hypoxia; J44.9 Chronic obstructive pulmonary disease, unspecified; I13.0 Hypertensive heart and chronic kidney disease with heart failure and stage 1 through stage 4 chronic kidney disease, or unspecified chronic kidney disease; J45.901 Unspecified asthma with (acute) exacerbation; I50.30 Unspecified diastolic (congestive) heart failure; J44.1 Chronic obstructive pulmonary disease with (acute) exacerbation; N18.30 Chronic kidney disease, stage 3 unspecified; E78.5 Hyperlipidemia, unspecified; F32.A Depression, unspecified; Z20.822 Contact with and (suspected) exposure to COVID-19; Z79.01 Long term (current) use of anticoagulants; Z85.118 Personal history of other malignant neoplasm of bronchus and lung; Z86.711 Personal history of pulmonary embolism; Z87.891 Personal history of nicotine dependence
CPT/HCPCS: 36415; 36600; 71045; 80048; 80053; 82805; 83605; 83880; 84484; 85025; 85027; 85055; 87426; 93005; 94618; 94640; 97161; 97165; 97530; 97535; 99285; A9270; C9803; J0456; J0696; J1100; J1940

== ENCOUNTER 2022-04-03 15:14 | Outpatient (CLI) | payer MEDICARE, MEDICAID, SELFPAY ==
--- NOTE | ~2022-04-03 | US_ITS ---
EXAMINATION: US venous doppler [facility] DATE: 04/03/2022 16:23 INDICATION: Lower limb pain and swelling. TECHNIQUE: Grayscale ultrasound images without and with compression and Doppler ultrasound images of the bilateral lower extremity veins were obtained. COMPARISON: None. FINDINGS: The visualized portions of right common femoral vein, profunda (deep) femoral vein, femoral vein, pop liteal vein, peroneal veins, posterior tibial veins, and greater saphenous vein outflow are patent. The visualized portions of left common femoral vein, profunda femoral vein, femoral vein, popliteal v ein, peroneal veins, posterior tibial veins, and greater saphenous vein outflow are patent. IMPRESSION: 1. No deep venous thrombosis. Reviewed, dictated and finalized at location A.
[2022-04-03 15:35] LABS: Basophils Absolute Auto 0.03 K/mm3 (0.00-0.10); Basophils Percent Auto 0.4 % (0.0-1.0); Eosinophils Absolute Auto 0.28 K/mm3 (0.02-0.50); Eosinophils Percent Auto 3.4 % (1.0-6.0); Hematocrit 25.6 % (35.0-42.0); Hemoglobin 7.5 g/dL (11.7-13.8); Immature Granulocyte Absolute 0.04 K/mm3 (0.00-0.00); Immature Granulocyte Percent A 0.5 % (0.0-0.0); Lymphocytes Absolute Auto 1.32 K/mm3 (1.10-4.50); Lymphocytes Percent Auto 15.9 % (18.0-42.0); Mean Corpuscular HGB Conc 29.3 g/dL (32.0-36.0); Mean Corpuscular Hemoglobin 28.5 pg (27.0-31.0); Mean Corpuscular Volume 97.3 fL (78.0-102.0); Monocytes Absolute Auto 0.66 K/mm3 (0.10-0.90); Neutrophils Percent Auto 71.8 % (50.0-70.0); Platelet Count Result 376 K/mm3 (150-420); Red Blood Count 2.63 M/mm3 (4.20-5.40); Red Cell Distribution Width 14.6 % (11.6-14.4); White Blood Count 8.3 K/mm3 (4.8-10.8)
[2022-04-03 15:48] LABS: Add Urine Microscopic? YES; Appearance Urine Clear (Clear); Bilirubin Urine Negative (Negative); Blood Urine Negative (Negative); Color Urine Light Yellow (Yellow); Glucose Urine UA Negative (Negative); Ketones Urine Negative (Negative); Leukocyte Esterase Ur Trace (Negative); Nitrate Urine Negative (Negative); Protein Urine Negative (Negative); Urobilinogen Urine 0.2 mg/dL (0.2-1.0)
[2022-04-03 15:57] LABS: Alanine Aminotransferase 24 U/L (14-59); Albumin Level 2.9 g/dL (3.4-5.0); Alkaline Phosphatase 73 U/L (46-116); Anion Gap 3 mmol/L (8-16); Aspartate Amino Transferase 16 U/L (15-37); Bilirubin,Total 0.2 mg/dL (0.00-1.00); Blood Urea Nitrogen 18 mg/dL (7-18); Calcium 8.7 mg/dL (8.5-10.1); Carbon Dioxide 35 mmol/L (21-32); Chloride 103 mmol/L (98-108); Estimated Glomerular Filt Rate 40; Glucose 100 mg/dL (70-99); NT Pro B Type Natriuretic Pept 665 pg/mL (0-125); Osmolality Calculated 293 mOsm/kg (285-295); Sodium 141 mmol/L (136-145); Total Protein 5.9 g/dL (6.4-8.2)
[2022-04-03 15:58] LABS: CRP < 0.5 mg/dL (0.0-0.9)
[2022-04-03 16:02] LABS: Bacteria Urine Trace /hpf; RBC Urine 0-2 /hpf (0-2); Squamous Epithelial Cell Urine Rare /hpf (Few); WBC Urine 0-3 /hpf (0-3)
== END 2022-04-03 15:15 | disposition home or self-care (01) ==
LOC: CHSLAB 15:18
PROVIDERS: PCP Internal Medicine; Visit Provider Nurse Practitioner Family
DX: I50.9 Heart failure, unspecified (principal); M79.89 Other specified soft tissue disorders; R33.9 Retention of urine, unspecified
CPT/HCPCS: 36415; 80053; 81001; 83880; 85025; 86140; 87086; 93970

== ENCOUNTER 2022-04-03 16:29 | Emergency (ER) | payer MEDICARE, MEDICAID, SELFPAY ==
--- NOTE | ~2022-04-03 | XR_ITS ---
EXAMINATION: XR chest 1V portable DATE: 04/03/2022 17:50 INDICATION: Shortness of breath. TECHNIQUE: A single frontal view of the chest was obtained. COMPARISON: Chest single view 03/10/2022, CT abdomen and pelvis 04/03/2022 FINDINGS: There is mild atelectasis in the lower lung zones. No pleural effusion or pneumothorax. The heart size is normal. IMPRESSION: 1. Mild atelectasis in the lower lung zones. Reviewed, dictated and finalized at location [facility].
--- NOTE | ~2022-04-03 | CT_ITS ---
EXAMINATION: CT abdomen pelvis wo con DATE: 04/03/2022 17:50 INDICATION: Anemia, urinary retention. History of cancer. Hypertension. TECHNIQUE: Computed tomography (CT) of the abdomen and pelvis was performed without intravenous contr ast. Automated exposure control and iterative reconstruction technique were employed. Exam dose: 549 .09 mGy-cm total exam DLP. COMPARISON: None. FINDINGS: Mild bilateral lung discoid atelectasis and/or scarring. No pulmonary consolidation. Normal heart size. No pericardial or pleural effusion. The liver, gallbladder, spleen, pancreas, bile ducts and pancreatic duct are unremarkable. Normal morphology of the adrenal glands. Status post left nephrectomy. No abnormal soft tissue mass is noted in the left nephrectomy bed. No right renal mass lesion or right urinary tract calculus or hydroureteronephrosis. The urinary blad cyrus is unremarkable. Uterus and adnexal areas are unremarkable. There is extensive calcification of the abdominal aorta and particularly the right renal artery. Aortic and bilateral iliac endovascular stent. There is extensive calcification of the iliac and femo ral arteries. Diverticulosis of the sigmoid colon; no CT evidence of diverticulitis. There is a wide ventral abdomi nal wall hernia containing nonobstructed nonstrangulated colon and a loop of nonobstructed nonstrangu lated small bowel. Several additional small fat-containing ventral abdominal wall hernias. Diffuse osteopenia. Mild anterior wedge compression fracture deformity, likely chronic, at L1. Probab le chronic S2 sacral fracture deformity. Old right rib fracture deformities. IMPRESSION: Status post left nephrectomy Status post cholecystectomy Large ventral abdominal wall hernia containing nonobstructed nonstrangulated small bowel and large veronica wel; several smaller fat-containing ventral abdominal wall hernias Abdominal bilateral common iliac vascular stent Extensive atherosclerotic calcification, especially of the right renal artery Mild old L1 compression fracture deformity and probable old S2 sacral fracture deformity in addition old healed right rib fractures Reviewed, dictated and finalized at [facility]. Reviewed, dictated and finalized at location B. IMPRESSION: Status post left nephrectomy Status post cholecystectomy Large ventral abdominal wall hernia containing nonobstructed nonstrangulated sm all bowel and large bowel; several smaller fat-containing ventral abdominal wal l hernias Abdominal bilateral common iliac vascular stent Extensive atherosclerotic calcification, especially of the right renal artery Mild old L1 compression fracture deformity and probable old S2 sacral fracture deformity in addition old healed right rib fractures
[2022-04-03 16:35] VITALS: BP 148/72; PULSE 93; RESP 18; TEMP 36.5; O2SAT 97
[2022-04-03 16:55] VITALS: BP 140/66; PULSE 81; RESP 16; O2SAT 97
--- NOTE | 2022-04-03 17:08 | ECG_ITS ---
Measurements Intervals [place] Rate: 81 P: 75 [place]: 170 QRS: 45 QRSD: 86 T: 56 QT: 379 QTc: 442 Interpretive Statements SINUS RHYTHM BASELINE ARTIFACT- I, II, III, AVR, AVL, AVF, V1-V6 NORMAL ECG Electronically Signed On 04-03-2022 20:29:31 CDT by Oli Meyers D.O.
--- NOTE | 2022-04-03 17:22 | ED.GENADULT ---
HPI - General Adult General Chief complaint: Unspecified Stated complaint: bad blood work Time Seen by Provider: 04/03/22 16:33 Source: patient and RN notes reviewed Mode of arrival: wheelchair Limitations: no limitations History of Present Illness HPI narrative: persistent SOB (pt is on home oxygen); persistent leg swelling x 2 mos, worse than usual today; hands are cramping x today. Onset (ago): day(s) (1) Location: lower extremity (swollen and mild pain, more than usual) Severity: mild Severity scale (1-10): 4 Quality: aching and dull Pain Consistency: constant Relieving factors: medication Exacerbating factors: none Associated symptoms: shortness of breath Related Data Home Medications Medication Instructions Recorded Confirmed acetaminophen 500 mg capsule 500 mg PO Q6H PRN Pain 11/24/19 04/03/22 albuterol sulfate 90 mcg/actuation 2 puff inhalation Q4H PRN Pain 11/24/19 04/03/22 aerosol inhaler (ProAir HFA) (Scale Score 4-6) aspirin 81 mg tablet,delayed 81 mg PO DAILY 11/24/19 04/03/22 release (Adult Aspirin Regimen) atorvastatin 40 mg tablet 40 mg PO DAILY 11/24/19 04/03/22 escitalopram oxalate 20 mg tablet 10 mg PO DAILY 11/24/19 04/03/22 ferrous sulfate 325 mg (65 mg 650 mg PO DAILY 11/24/19 04/03/22 iron) tablet furosemide 40 mg tablet (Lasix) 40 mg PO QAM 11/24/19 04/03/22 levetiracetam 250 mg tablet 250 mg PO Q12H 11/24/19 04/03/22 melatonin 5 mg capsule 5 mg PO HS 11/24/19 04/03/22 potassium chloride 20 mEq 20 meq PO DAILY 11/24/19 04/03/22 tablet,extended release ropinirole 1 mg tablet 1 mg PO TID 11/24/19 04/03/22 spironolactone 25 mg tablet 25 mg PO DAILY 11/24/19 04/03/22 alprazolam 0.5 mg tablet 1 tablet QID PRN Anxiety 03/10/22 04/03/22 ergocalciferol (vitamin D2) 1,250 1 cap WEEKLY 03/10/22 04/03/22 mcg (50,000 unit) capsule multivitamin with folic acid 400 1 tablet PO DAILY 03/10/22 04/03/22 mcg tablet (Daily-Annie (with folic acid)) Allergies Allergy/AdvReac Type Severity Reaction Status Date / Time adhesive Allergy Unknown Unknown Verified 04/03/22 16:50 hydrocodone Allergy Unknown Unknown Verified 04/03/22 16:50 iodine Allergy Unknown Unknown Verified 04/03/22 16:50 latex Allergy Unknown Unknown Verified 04/03/22 16:50 lorazepam Allergy Unknown Unknown Verified 04/03/22 16:50 nickel Allergy Unknown Unknown Verified 04/03/22 16:50 Review of Systems Review of Systems: All systems reviewed & are unremarkable except as noted in HPI and below Constitutional: Constitutional: Reports no additional constitutional complaints Eyes: Eyes: Reports no additional eye complaints ENT: Reports system reviewed and no additional complaints, except as documented Cardiovascular: Cardiovascular: Reports no additional cardiovascular complaints Respiratory: Respiratory: Reports no additional respiratory complaints Gastrointestinal: Gastrointestinal: Reports no additional gastrointestinal complaints Genitourinary: Genitourinary: Reports no additional female genitourinary complaints Musculoskeletal: Musculoskeletal: Reports no additional musculoskeletal complaints Comments: hand cramps and leg swelling Integumentary/Breasts: Skin/Breast: Reports system reviewed and no additional complaints, except as docu Neurologic: Reports system reviewed and no additional complaints, except as documented Psychiatric: Psychiatric: Reports no additional psychiatric complaints Endocrine: Endocrine: Reports no additional endocrine complaints Hematologic/Lymphatic: Hematologic/Lymphatic: Reports no additional hematologic/lymphatic complaints Allergic/Immunologic: Allergic/Immunologic: Reports no additional allergic/immunologic complaints PMFSH Past Medical History Medical History CKD (chronic kidney disease) stage 3, GFR 30-59 ml/min COPD (chronic obstructive pulmonary disease) Diastolic dysfunction Dyslipidemia Edema of both legs Hand cramps Hi
[2022-04-03] MEDS: ACETAMINOPHEN 325 MG TABLET 650 MG PO (17:25)
[2022-04-03] MEDS: FUROSEMIDE INJ 100 MG/10 ML VIAL 80 MG IV PUSH (17:27)
[2022-04-03 17:31] LABS: Base Excess ABG 6.3 mmol/L (0-2); HCO3 ABG 31.4 mmol/L (23-29); Oxygen Content ABG 11.3 %vol (16.0-22.0); Oxyhemoglobin 97.2 % (94-100); PCO2 ABG 49.2 mmHg (35-45); PO2 ABG 110.6 mmHg (75-85); Total Hemoglobin 8.1 g/dL (12.0-18.0); pH ABG 7.42 (7.35-7.45)
[2022-04-03 17:33] LABS: Device NASAL CANNULA; Modified Allen's Test Pass; Site Drawn RIGHT RADIAL
[2022-04-03 17:51] LABS: Magnesium 1.7 mg/dL (1.8-2.4); Troponin I 10.9 ng/L (0.00-60.4)
[2022-04-03 17:52] LABS: Lactic Acid Reflex 0.8 mmol/L (0.4-2.0)
[2022-04-03] MEDS: CALCIUM CARBONATE (TUMS) 500 MG (200 MG ELEMENTAL) 1000 MG PO (18:53)
[2022-04-03] MEDS: MAGNESIUM OXIDE 400 MG TABLET PO (18:53)
[2022-04-03 18:55] VITALS: BP 130/81; PULSE 79; RESP 16; TEMP 36.6; O2SAT 97
[2022-04-03] MEDS: cefTRIAXone 1 GM, LIDOCAINE HCL 1% LOCAL INJ 2.1 ML IM (19:36)
[2022-04-03 20:01] VITALS: BP 122/68; PULSE 87; RESP 20; TEMP 36.6; O2SAT 98
--- NOTE | 2022-04-04 17:49 | PC.NURSE ---
call from [facility] to clarify lasix order. per dr galvez per phone, continue pmd orders for lasix 40mg po x1 daily. call to patient and message left for pharmacy.
--- NOTE | 2022-04-04 18:11 | PC.NURSE ---
spoke with boris ny , updated on lasix instructions. voiced understanding.
== END 2022-04-03 20:04 | disposition home or self-care (01) ==
PROVIDERS: Emergency Provider Emergency Medicine; PCP Internal Medicine
DX: R25.2 Cramp and spasm (principal); N18.30 Chronic kidney disease, stage 3 unspecified; R60.0 Localized edema; N39.0 Urinary tract infection, site not specified; J44.9 Chronic obstructive pulmonary disease, unspecified; E78.5 Hyperlipidemia, unspecified; Z87.891 Personal history of nicotine dependence
CPT/HCPCS: 36415; 36600; 71045; 74176; 80053; 81001; 82805; 83605; 83735; 83880; 84484; 85025; 86140; 87086; 93005; 93970; 96372; 96374; 99284; A9270; J0696; J1940

== ENCOUNTER 2022-04-08 15:34 | Outpatient (CLI) | payer MEDICARE, MEDICAID, SELFPAY ==
[2022-04-08 16:18] LABS: Basophils Absolute Auto 0.03 K/mm3 (0.00-0.10); Basophils Percent Auto 0.4 % (0.0-1.0); Eosinophils Absolute Auto 0.23 K/mm3 (0.02-0.50); Eosinophils Percent Auto 2.9 % (1.0-6.0); Hematocrit 23.1 % (35.0-42.0); Immature Granulocyte Absolute 0.08 K/mm3 (0.00-0.00); Immature Reticulocyte Fraction 42.6 % (2.0-16.52); Lymphocytes Percent Auto 16.3 % (18.0-42.0); Mean Corpuscular HGB Conc 28.6 g/dL (32.0-36.0); Mean Corpuscular Hemoglobin 28.6 pg (27.0-31.0); Mean Platelet Volume 9.5 fl (9.2-11.8); Neutrophils Absolute Auto 5.6 K/mm3 (1.7-7.2); Neutrophils Percent Auto 69.4 % (50.0-70.0); Nucleated Red Blood Cells Absolute Auto 0.02 K/mm3 (0.00-0.00); Nucleated Red Blood Cells Perc 0.3 % (0-0.0); Platelet Count Result 435 K/mm3 (150-420); Red Blood Count 2.31 M/mm3 (4.20-5.40); Red Cell Distribution Width 16.1 % (11.6-14.4); Reticulocyte Percent 11.89 % (0.50-1.50); Reticulocytes Absolute 0.27 M/mm3 (0.02-0.1)
[2022-04-08 16:49] LABS: Hemoglobin 6.6 g/dL (11.7-13.8)
[2022-04-08 17:32] LABS: Alanine Aminotransferase 30 U/L (14-59); Albumin Level 3.1 g/dL (3.4-5.0); Alkaline Phosphatase 64 U/L (46-116); Anion Gap 3 mmol/L (8-16); Aspartate Amino Transferase 29 U/L (15-37); Bilirubin,Total 0.2 mg/dL (0.00-1.00); Blood Urea Nitrogen 23 mg/dL (7-18); Calcium 8.6 mg/dL (8.5-10.1); Carbon Dioxide 36 mmol/L (21-32); Chloride 105 mmol/L (98-108); Estimated Glomerular Filt Rate 39; Ferritin 11 ng/mL (8-252); Glucose 92 mg/dL (70-99); Iron 127 ug/dL (50-170); NT Pro B Type Natriuretic Pept 675 pg/mL (0-125); Osmolality Calculated 301 mOsm/kg (285-295); Potassium 4.2 mmol/L (3.5-5.1); Sodium 144 mmol/L (136-145); Total Protein 5.8 g/dL (6.4-8.2); Vitamin B12 763 pg/mL (193-986)
[2022-04-12 06:01] LABS: Red Blood Cell Folate >1000 ng/mL RBC (>280)
[2022-04-14 17:36] LABS: Reference Lab Test Name FLOW CYTOMETRY
== END 2022-04-08 15:35 | disposition home or self-care (01) ==
LOC: CHSLAB 15:39
PROVIDERS: PCP Internal Medicine; Visit Provider Internal Medicine
DX: D64.9 Anemia, unspecified (principal); N18.30 Chronic kidney disease, stage 3 unspecified; I50.9 Heart failure, unspecified
CPT/HCPCS: 36415; 80053; 82607; 82728; 82747; 83540; 83880; 85025; 85046; 88184; 88185; 88189

== ENCOUNTER 2022-04-08 16:55 | Emergency (ER) | payer MEDICARE, MEDICAID, SELFPAY ==
[2022-04-08] VITALS (34 sets, daily range): BP systolic 95–137; BP diastolic 49–78; PULSE 82–103; RESP 15–32; TEMP 35.9–36.9; O2SAT 92–100
--- NOTE | 2022-04-08 17:12 | ED.GENADULT ---
HPI - General Adult General Chief complaint: Recheck/Abnormal Lab/Rx Stated complaint: low hemoglobin Source: patient, family and RN notes reviewed Mode of arrival: ambulatory Limitations: no limitations History of Present Illness HPI narrative: patient still having some cramping after visit last week. Never did get the magnesium filled because of an abnormal dose request. Sent over by her PCP for further blood testing and found to have a hemoglobin of 6.6 and is now here for blood transfusion. MD complaint: Low hemoglobin Onset (ago): day(s) (7) Severity: moderate ( Leg cramping) Quality: aching and dull Pain Consistency: intermittent Relieving factors: none Exacerbating factors: movement Associated symptoms: denies other symptoms Treatments prior to arrival: none Related Data Home Medications Medication Instructions Recorded Confirmed acetaminophen 500 mg capsule 500 mg PO Q6H PRN Pain 11/24/19 04/08/22 albuterol sulfate 90 mcg/actuation 2 puff inhalation Q4H PRN Pain 11/24/19 04/08/22 aerosol inhaler (ProAir HFA) (Scale Score 4-6) aspirin 81 mg tablet,delayed 81 mg PO DAILY 11/24/19 04/08/22 release (Adult Aspirin Regimen) atorvastatin 40 mg tablet 40 mg PO DAILY 11/24/19 04/08/22 escitalopram oxalate 20 mg tablet 10 mg PO DAILY 11/24/19 04/08/22 ferrous sulfate 325 mg (65 mg 650 mg PO DAILY 11/24/19 04/08/22 iron) tablet levetiracetam 250 mg tablet 250 mg PO Q12H 11/24/19 04/08/22 melatonin 5 mg capsule 5 mg PO HS 11/24/19 04/08/22 potassium chloride 20 mEq 20 meq PO DAILY 11/24/19 04/08/22 tablet,extended release ropinirole 1 mg tablet 1 mg PO TID 11/24/19 04/08/22 spironolactone 25 mg tablet 25 mg PO DAILY 11/24/19 04/08/22 alprazolam 0.5 mg tablet 1 tablet QID PRN Anxiety 03/10/22 04/08/22 ergocalciferol (vitamin D2) 1,250 1 cap WEEKLY 03/10/22 04/08/22 mcg (50,000 unit) capsule multivitamin with folic acid 400 1 tablet PO DAILY 03/10/22 04/08/22 mcg tablet (Daily-Annie (with folic acid)) Allergies Allergy/AdvReac Type Severity Reaction Status Date / Time adhesive Allergy Unknown Unknown Verified 04/08/22 17:19 hydrocodone Allergy Unknown Unknown Verified 04/08/22 17:19 iodine Allergy Unknown Unknown Verified 04/08/22 17:19 latex Allergy Unknown Unknown Verified 04/08/22 17:19 lorazepam Allergy Unknown Unknown Verified 04/08/22 17:19 nickel Allergy Unknown Unknown Verified 04/08/22 17:19 Review of Systems Review of Systems: All systems reviewed & are unremarkable except as noted in HPI and below PMFSH Past Medical History Medical History CKD (chronic kidney disease) stage 3, GFR 30-59 ml/min COPD (chronic obstructive pulmonary disease) Diastolic dysfunction Dyslipidemia Edema of both legs Hand cramps History of tobacco abuse Small cell lung cancer Family History Family History Sibling Family history of arthritis Social History Social History Smoking packs per day: 1 Smoking cigarettes per day: 20.0 Years smoked: 50 Smoking pack-years: 50.00 Smoking status: Former smoker Tobacco type: cigarettes Second hand tobacco smoke exposure: No Smoking end date: 09/14/05 Alcohol intake: never Substance use: never Substance use type: does not use Gender identity (if verbalized by the patient): Female Sexual Orientation (if Verbalized by the Patient): Straight or Heterosexual Spiritual care concerns: No Exam Const: General: healthy appearing, no acute distress and alert Nutritional Appearance: well nourished Orientation/consciousness: patient oriented x3 Limitations: no limitations HENMT: Head: normal to inspection Ears: external ears normal Eyes: Conjunctivae: conjunctival abnormality bilateral pallor Pupils: Equal, round and reactive pupils present EOM: EOMs intact bilaterally Neck: Neck: n
--- NOTE | 2022-04-08 17:26 | PC.NURSE ---
BLOOD CONSENT OBTAINED.
[2022-04-08] MEDS: MAGNESIUM SULF 2 GM/WATER 50ML 2 GM/50 ML BAG IVPB (17:31)
--- NOTE | 2022-04-08 18:16 | PC.NURSE ---
PT IS LYING ON STRETCHER WITH FRIEND AT BEDSIDE. VSS PER MONITOR. PT IS WATCHING TV WITHOUT DISTRESS, IV MEDICATION INFUSING ORDERED WITHOUT DIFFICULTY. PT IS AWAITING BLOOD TO BE READY IN LAB AT THIS TIME. WILL CONTINUE TO MONITOR.
--- NOTE | 2022-04-08 18:39 | PC.NURSE ---
PT UP TO WC REQUESTED. PT IS AWAITING BLOOD FOR TRANSFUSION. FRIEND REMAINS AT BEDSIDE. NAD NOTED. LAB AT BEDSIDE AT THIS TIME. WILL CONTINUE TO MONITOR.
--- NOTE | 2022-04-08 19:18 | PC.NURSE ---
1900 pt is reporting leg cramps, erp aware. blood to be given.
[2022-04-08 20:10] LABS: Hematocrit 26.8 % (35.0-42.0); Hemoglobin 7.9 g/dL (11.7-13.8)
[2022-04-08] MEDS: SODIUM CHLORIDE 0.9% IV 250 ML 30 ML IV CONT (20:26)
[2022-04-08] MEDS: FUROSEMIDE INJ 20 MG/2 ML VIAL IV PUSH (21:45)
[2022-04-08 22:59] LABS: Hematocrit 28.8 % (35.0-42.0); Hemoglobin 8.8 g/dL (11.7-13.8)
--- NOTE | 2022-04-08 23:04 | PC.NURSE ---
NS 250ml used with blood infusion of two units
== END 2022-04-08 23:26 | disposition home or self-care (01) ==
PROVIDERS: Emergency Provider Emergency Medicine; PCP Internal Medicine
DX: D64.9 Anemia, unspecified (principal); E83.42 Hypomagnesemia; N18.30 Chronic kidney disease, stage 3 unspecified; J44.9 Chronic obstructive pulmonary disease, unspecified; E78.5 Hyperlipidemia, unspecified; Z87.891 Personal history of nicotine dependence
CPT/HCPCS: 36415; 36430; 80053; 82607; 82728; 82747; 83540; 83880; 85014; 85018; 85025; 85046; 86850; 86900; 86901; 86920; 88184; 88185; 88189; 96361; 96365; 96375; 99285; J1940; J3475; J7050; P9016

== ENCOUNTER 2022-04-14 06:49 | Emergency (ER) | payer MEDICARE, MEDICAID, SELFPAY ==
--- NOTE | ~2022-04-14 | CT_ITS ---
EXAMINATION: CT brain wo con DATE: 04/14/2022 07:53 INDICATION: Fall. TECHNIQUE: Computed tomography (CT) of the head was performed without intravenous contrast. The mA wa s adjusted according to patient size. Iterative reconstruction technique was employed. The dose-lengt h product was 681.00 mGy-cm. COMPARISON: None FINDINGS: There are scattered areas of low attenuation in the cerebral white matter. There is no intr acranial hemorrhage, acute infarction, or abnormal intracranial mass lesion. The ventricles are jorge l in size. The orbits are normal. There is mild mucosal thickening in the ethmoid sinuses. There is a small left mastoid effusion. IMPRESSION: 1. Extensive nonspecific cerebral white matter disease, which likely represents chronic small vessel ischemic disease. Reviewed, dictated and finalized at location A.
--- NOTE | ~2022-04-14 | XR_ITS ---
EXAMINATION: XR hand RT min 3V DATE: 04/14/2022 07:55 INDICATION: Right hand injury. Third digit pain. TECHNIQUE: 3 views of right hand were obtained. COMPARISON: None. FINDINGS: Bone alignment is normal. There is a chip fracture of palmar base of third middle phalanx. There is mild osteoarthritis of first carpometacarpal joint and some of the interphalangeal joints. IMPRESSION: 1. Chip fracture of palmar base of third middle phalanx. 2. Mild polyarticular osteoarthritis. Reviewed, dictated and finalized at location A.
--- NOTE | ~2022-04-14 | XR_ITS ---
EXAMINATION: XR chest 1V portable DATE: 04/14/2022 07:54 INDICATION: Lung cancer. Fall. TECHNIQUE: A single frontal view of the chest was obtained. COMPARISON: Chest single view 04/03/2022, chest CT 02/28/2019 FINDINGS: There are lucencies in the lungs, consistent with emphysema. No pleural effusion or pneumot horax. The heart size is normal. There are old healed right rib fractures. IMPRESSION: 1. Emphysema. Reviewed, dictated and finalized at location A. IMPRESSION: 1. Emphysema.
--- NOTE | ~2022-04-14 | XR_ITS ---
EXAMINATION: XR knee RT 3V DATE: 04/14/2022 07:55 INDICATION: Anterior knee pain and swelling. TECHNIQUE: 3 views of right knee were obtained. COMPARISON: None. FINDINGS: Bone alignment is normal. There is a nondisplaced transverse fracture of patella. There is mild osteoarthritis of lateral compartment. There is a small knee joint effusion. IMPRESSION: 1. Nondisplaced transverse fracture of patella. 2. Mild right knee osteoarthritis. 3. Small right knee joint effusion. Reviewed, dictated and finalized at location A.
--- NOTE | ~2022-04-14 | XR_ITS ---
EXAMINATION: XR pelvis 1-2V DATE: 04/14/2022 07:56 INDICATION: Fall. TECHNIQUE: An anteroposterior view of the pelvis was obtained. COMPARISON: None. FINDINGS: Bone alignment is normal. No fracture. The hip joint spaces are normal. IMPRESSION: 1. No fracture. Reviewed, dictated and finalized at location A. IMPRESSION: 1. No fracture.
[2022-04-14 06:58] VITALS: BP 122/70; PULSE 78; RESP 20; TEMP 37.7; O2SAT 95
--- NOTE | 2022-04-14 07:08 | ECG_ITS ---
Measurements Intervals [place] Rate: 93 P: 79 [place]: 175 QRS: 68 QRSD: 89 T: 55 QT: 350 QTc: 437 Interpretive Statements SINUS RHYTHM NORMAL ECG COMPARED TO ECG 04/03/2022 17:39:41 NO SIGNIFICANT CHANGES Electronically Signed On 04-14-2022 14:27:14 CDT by Elijah Roberts M.D.
--- NOTE | 2022-04-14 07:12 | ED.GENADULT ---
HPI - General Adult General Chief complaint: Fall Stated complaint: Ambulance Time Seen by Provider: 04/14/22 06:58 Source: patient Mode of arrival: EMS History of Present Illness HPI narrative: This is a 71-year-old detention patient presents to ED after multiple falls. Patient says she was sitting in her wheelchair last night when she fell asleep. She then slid out of the wheelchair onto the floor. She had to be helped back into the chair by the detention staff. She was then trying to get into her chair this morning when she felt her right knee gave out. She then fell and struck her knee. She denies head trauma or loss of consciousness. She is complaining of pain to her right knee into her right hand. She does take Eliquis for history of blood clots. The patient denies fever, chills, chest pain difficulty breathing, abdominal pain, nausea vomiting or diarrhea. She denies urinary symptoms. She did require a transfusion of 2 units of packed red blood cells last week due to anemia of unknown origin. Related Data Home Medications Medication Instructions Recorded Confirmed acetaminophen 500 mg capsule 500 mg PO Q6H PRN Pain 11/24/19 04/14/22 aspirin 81 mg tablet,delayed 81 mg PO DAILY 11/24/19 04/14/22 release (Adult Aspirin Regimen) atorvastatin 40 mg tablet 40 mg PO DAILY 11/24/19 04/14/22 escitalopram oxalate 20 mg tablet 10 mg PO DAILY 11/24/19 04/14/22 ferrous sulfate 325 mg (65 mg 650 mg PO DAILY 11/24/19 04/14/22 iron) tablet levetiracetam 250 mg tablet 250 mg PO Q12H 11/24/19 04/14/22 melatonin 5 mg capsule 5 mg PO HS 11/24/19 04/14/22 potassium chloride 20 mEq 20 meq PO DAILY 11/24/19 04/14/22 tablet,extended release spironolactone 25 mg tablet 25 mg PO DAILY 11/24/19 04/14/22 alprazolam 0.5 mg tablet 1 tablet QID PRN Anxiety 03/10/22 04/14/22 ergocalciferol (vitamin D2) 1,250 1 cap WEEKLY 03/10/22 04/14/22 mcg (50,000 unit) capsule multivitamin with folic acid 400 1 tablet PO DAILY 03/10/22 04/14/22 mcg tablet (Daily-Annie (with folic acid)) alendronate 70 mg tablet 70 mg PO DIRECTED 04/14/22 04/14/22 gabapentin 300 mg capsule 300 mg PO DIRECTED 04/14/22 04/14/22 omeprazole 20 mg capsule,delayed 20 mg PO DIRECTED 04/14/22 04/14/22 release Allergies Allergy/AdvReac Type Severity Reaction Status Date / Time adhesive Allergy Unknown Unknown Verified 04/08/22 17:19 hydrocodone Allergy Unknown Unknown Verified 04/08/22 17:19 iodine Allergy Unknown Unknown Verified 04/08/22 17:19 latex Allergy Unknown Unknown Verified 04/08/22 17:19 lorazepam Allergy Unknown Unknown Verified 04/08/22 17:19 nickel Allergy Unknown Unknown Verified 04/08/22 17:19 Review of Systems Constitutional: Constitutional: Denies fever(s) Eyes: Eyes: Denies no additional eye complaints ENT: Denies dysphagia Cardiovascular: Cardiovascular: Denies chest pain Respiratory: Respiratory: Denies chest congestion Gastrointestinal: Gastrointestinal: Denies abdominal pain Genitourinary: Genitourinary: Denies abnormal vaginal bleeding Musculoskeletal: Musculoskeletal: Denies back pain Integumentary/Breasts: Skin/Breast: Denies breast pain Neurologic: Denies confusion Psychiatric: Psychiatric: Denies anxiety Endocrine: Endocrine: Denies excessive sweating Hematologic/Lymphatic: Hematologic/Lymphatic: Denies easy bleeding Allergic/Immunologic: Allergic/Immunologic: Denies lip swelling PMFSH Past Medical History Medical History (Updated 04/14/22 @ 07:18 by Wale Simon MD) CKD (chronic kidney disease) stage 3, GFR 30-59 ml/min COPD (chronic obstructive pulmonary disease) Diastolic dysfunction Dyslipidemia Edema of both legs Hand cramps History of tobacco abuse Pulmonary embolism Small cell lung cancer Family History Family History Sibling Family history of arthritis Social History Social History (Reviewed 04/14/22 @ 07:18 by Lucy
[2022-04-14] MEDS: ACETAMINOPHEN 500 MG TABLET 1000 MG PO (07:17)
[2022-04-14 08:11] LABS: Basophils Absolute Auto 0.04 K/mm3 (0.00-0.10); Basophils Percent Auto 0.4 % (0.0-1.0); Eosinophils Absolute Auto 0.22 K/mm3 (0.02-0.50); Hematocrit 28.6 % (35.0-42.0); Hemoglobin 8.3 g/dL (11.7-13.8); Immature Granulocyte Absolute 0.04 K/mm3 (0.00-0.00); Immature Granulocyte Percent A 0.4 % (0.0-0.0); Lymphocytes Absolute Auto 0.67 K/mm3 (1.10-4.50); Lymphocytes Percent Auto 6.1 % (18.0-42.0); Mean Corpuscular Hemoglobin 28.4 pg (27.0-31.0); Mean Corpuscular Volume 97.9 fL (78.0-102.0); Mean Platelet Volume 8.9 fl (9.2-11.8); Monocytes Absolute Auto 0.93 K/mm3 (0.10-0.90); Monocytes Percent Auto 8.5 % (2.0-11.0); Neutrophils Percent Auto 82.6 % (50.0-70.0); Platelet Count Result 402 K/mm3 (150-420); Red Blood Count 2.92 M/mm3 (4.20-5.40); White Blood Count 10.9 K/mm3 (4.8-10.8)
[2022-04-14 08:20] LABS: Anion Gap 4 mmol/L (8-16); Blood Urea Nitrogen 18 mg/dL (7-18); Calcium 8.9 mg/dL (8.5-10.1); Carbon Dioxide 33 mmol/L (21-32); Chloride 107 mmol/L (98-108); Estimated CRCL calculation 29 ml/min; Estimated Glomerular Filt Rate 36; Glucose 99 mg/dL (70-99); Osmolality Calculated 299 mOsm/kg (285-295); Potassium 4.1 mmol/L (3.5-5.1); Sodium 144 mmol/L (136-145)
[2022-04-14 09:49] LABS: Add Urine Microscopic? NO; Appearance Urine Clear (Clear); Bilirubin Urine Negative (Negative); Blood Urine Negative (Negative); Color Urine Yellow (Yellow); Glucose Urine UA Negative (Negative); Ketones Urine Negative (Negative); Leukocyte Esterase Ur Negative LEU/UL (Negative); Nitrate Urine Negative (Negative); Protein Urine Negative (Negative); Urobilinogen Urine 0.2 mg/dL (0.2-1.0)
--- NOTE | 2022-04-14 10:06 | ED.GENADULT ---
HPI - General Adult General Chief complaint: Fall Stated complaint: Ambulance Time Seen by Provider: 04/14/22 06:58 History of Present Illness HPI narrative: this is a 71-year-old intermediate patient to the ED following a fall. Patient says that she slid out of her wheelchair last night after she fell asleep in the chair. She denies hitting her head, she denies loss of consciousness, she denies any serious injury not fall. However this morning she was trying to get back into the wheelchair and she fell forward onto a flexed knee. She is now complaining of left knee and left 3rd finger pain. Patient has been unable to bear weight on her right knee since the injury. Patient takes Eliquis for pulmonary embolism. The patient denies any chest pain, dizziness, palpitations or weakness leading up to the fall. She has been feeling well overall the last several days. Related Data Home Medications Medication Instructions Recorded Confirmed acetaminophen 500 mg capsule 500 mg PO Q6H PRN Pain 11/24/19 04/14/22 aspirin 81 mg tablet,delayed 81 mg PO DAILY 11/24/19 04/14/22 release (Adult Aspirin Regimen) atorvastatin 40 mg tablet 40 mg PO DAILY 11/24/19 04/14/22 escitalopram oxalate 20 mg tablet 10 mg PO DAILY 11/24/19 04/14/22 ferrous sulfate 325 mg (65 mg 650 mg PO DAILY 11/24/19 04/14/22 iron) tablet levetiracetam 250 mg tablet 250 mg PO Q12H 11/24/19 04/14/22 melatonin 5 mg capsule 5 mg PO HS 11/24/19 04/14/22 potassium chloride 20 mEq 20 meq PO DAILY 11/24/19 04/14/22 tablet,extended release spironolactone 25 mg tablet 25 mg PO DAILY 11/24/19 04/14/22 alprazolam 0.5 mg tablet 1 tablet QID PRN Anxiety 03/10/22 04/14/22 ergocalciferol (vitamin D2) 1,250 1 cap WEEKLY 03/10/22 04/14/22 mcg (50,000 unit) capsule multivitamin with folic acid 400 1 tablet PO DAILY 03/10/22 04/14/22 mcg tablet (Daily-Annie (with folic acid)) alendronate 70 mg tablet 70 mg PO DIRECTED 04/14/22 04/14/22 gabapentin 300 mg capsule 300 mg PO DIRECTED 04/14/22 04/14/22 omeprazole 20 mg capsule,delayed 20 mg PO DIRECTED 04/14/22 04/14/22 release Allergies Allergy/AdvReac Type Severity Reaction Status Date / Time adhesive Allergy Unknown Unknown Verified 04/08/22 17:19 hydrocodone Allergy Unknown Unknown Verified 04/08/22 17:19 iodine Allergy Unknown Unknown Verified 04/08/22 17:19 latex Allergy Unknown Unknown Verified 04/08/22 17:19 lorazepam Allergy Unknown Unknown Verified 04/08/22 17:19 nickel Allergy Unknown Unknown Verified 04/08/22 17:19 Review of Systems Constitutional: Constitutional: Denies chills Eyes: Eyes: Denies no additional eye complaints ENT: Denies dysphagia Cardiovascular: Cardiovascular: Denies chest pain Respiratory: Respiratory: Denies chest congestion Gastrointestinal: Gastrointestinal: Denies abdominal pain Musculoskeletal: Musculoskeletal: Denies back pain Integumentary/Breasts: Skin/Breast: Denies breast pain Neurologic: Denies confusion Psychiatric: Psychiatric: Denies anxiety Endocrine: Endocrine: Denies excessive sweating Hematologic/Lymphatic: Hematologic/Lymphatic: Reports easy bruising Allergic/Immunologic: Allergic/Immunologic: Denies lip swelling PMFSH Past Medical History Medical History CKD (chronic kidney disease) stage 3, GFR 30-59 ml/min COPD (chronic obstructive pulmonary disease) Diastolic dysfunction Dyslipidemia Edema of both legs Hand cramps History of tobacco abuse Pulmonary embolism Small cell lung cancer Family History Family History Sibling Family history of arthritis Social History Social History Smoking packs per day: 1 Smoking cigarettes per day: 20.0 Years smoked: 50 Smoking pack-years: 50.00 Smoking status: Former smoker Tobacco type: cigarettes Second hand tobacco smoke
[2022-04-14 10:44] VITALS: BP 109/65; PULSE 83; RESP 16; O2SAT 100
--- NOTE | 2022-04-14 11:09 | PC.NURSE ---
Gave report to [facility] about pt's return. Staff concerned that Pt will not be able to get up on her own due to being non-weightbearing. RN and tech at bedside assisting Pt to wheelchair to test mobility. Pt able to get up and into wheelchair with only standby assistance. Pt states that she has a walker at her apartment that she will be able to use for stability getting up and down. [facility] aware of this and gave the ok for pt to return. Pt's TROYAIsabela, also aware of Dx and need to schedule follow-up appointment with Dr. Rudolph.
== END 2022-04-14 11:30 ==
PROVIDERS: Emergency Provider Emergency Medicine; PCP Internal Medicine
DX: S82.001A Unspecified fracture of right patella, initial encounter for closed fracture (principal); S62.622A Displaced fracture of middle phalanx of right middle finger, initial encounter for closed fracture; W05.0XXA Fall from non-moving wheelchair, initial encounter; N18.9 Chronic kidney disease, unspecified; J44.9 Chronic obstructive pulmonary disease, unspecified; E78.5 Hyperlipidemia, unspecified; Z87.891 Personal history of nicotine dependence; Z86.711 Personal history of pulmonary embolism
CPT/HCPCS: 29130; 36415; 70450; 71045; 72170; 73130; 73562; 80048; 81003; 83735; 85025; 93005; 99284; L1830

== ENCOUNTER 2022-04-17 11:12 | Outpatient (NON) | payer MEDICARE, MEDICAID, SELFPAY ==
[2022-04-17 11:45] LABS: Basophils Absolute Auto 0.05 K/mm3 (0.00-0.10); Basophils Percent Auto 0.5 % (0.0-1.0); Eosinophils Absolute Auto 0.22 K/mm3 (0.02-0.50); Eosinophils Percent Auto 2.1 % (1.0-6.0); Hematocrit 29.9 % (35.0-42.0); Hemoglobin 8.7 g/dL (11.7-13.8); Immature Granulocyte Absolute 0.04 K/mm3 (0.00-0.00); Immature Granulocyte Percent A 0.4 % (0.0-0.0); Lymphocytes Percent Auto 7.8 % (18.0-42.0); Mean Corpuscular HGB Conc 29.1 g/dL (32.0-36.0); Mean Corpuscular Hemoglobin 28.6 pg (27.0-31.0); Mean Corpuscular Volume 98.4 fL (78.0-102.0); Monocytes Absolute Auto 0.66 K/mm3 (0.10-0.90); Monocytes Percent Auto 6.4 % (2.0-11.0); Neutrophils Absolute Auto 8.5 K/mm3 (1.7-7.2); Neutrophils Percent Auto 82.8 % (50.0-70.0); Platelet Count Result 440 K/mm3 (150-420); Red Blood Count 3.04 M/mm3 (4.20-5.40); Red Cell Distribution Width 14.6 % (11.6-14.4); White Blood Count 10.3 K/mm3 (4.8-10.8)
[2022-04-17 12:05] LABS: Occult Blood Positive (Negative)
[2022-04-17 12:05] LABS: Occult Blood Positive (Negative)
[2022-04-17 12:05] LABS: Occult Blood Positive (Negative)
[2022-04-17 12:18] LABS: Anion Gap 8 mmol/L (8-16); Blood Urea Nitrogen 18 mg/dL (7-18); Calcium 8.8 mg/dL (8.5-10.1); Carbon Dioxide 34 mmol/L (21-32); Chloride 104 mmol/L (98-108); Estimated Glomerular Filt Rate 39; Glucose 111 mg/dL (70-99); NT Pro B Type Natriuretic Pept 837 pg/mL (0-125); Osmolality Calculated 304 mOsm/kg (285-295); Potassium 3.9 mmol/L (3.5-5.1); Sodium 146 mmol/L (136-145)
== END 2022-04-17 11:13 | disposition home or self-care (01) ==
LOC: CHSLAB 11:16
PROVIDERS: Visit Provider Internal Medicine
DX: D64.9 Anemia, unspecified (principal); N18.30 Chronic kidney disease, stage 3 unspecified; I50.9 Heart failure, unspecified
CPT/HCPCS: 36415; 80048; 82272; 83880; 85025

== ENCOUNTER 2022-05-01 11:16 | Emergency (ER) | payer MEDICARE, MEDICAID, SELFPAY ==
[2022-05-01] VITALS (11 sets, daily range): BP systolic 104–122; BP diastolic 50–66; PULSE 84–98; RESP 18–24; TEMP 36.2–36.8; O2SAT 92–100
--- NOTE | ~2022-05-01 | XR_ITS ---
EXAMINATION: XR chest 1V portable INDICATION: Shortness of breath TECHNIQUE: Portable AP chest at 1212 hours COMPARISON: 04/14/2022 FINDINGS: The lungs are hyperinflated. There are minimal airspace opacities of the left lung base. No pleural effusion or pneumothorax. The cardiomediastinal silhouette is normal. Healed right-sided rib fractures are noted. IMPRESSION: 1. Minimal left basilar airspace opacities, consistent with atelectasis versus pneumonia. Reviewed, dictated and finalized at location A.
--- NOTE | 2022-05-01 11:28 | ECG_ITS ---
Measurements Intervals [place] Rate: 87 P: 73 CO: 159 QRS: 55 QRSD: 92 T: 54 QT: 373 QTc: 451 Interpretive Statements SINUS RHYTHM NORMAL ECG COMPARED TO ECG 04/14/2022 07:19:54 NO SIGNIFICANT CHANGES Electronically Signed On 05-01-2022 13:53:40 CDT by Db Newell M.D.
[2022-05-01] MEDS: IPRATROPIUM 0.5 MG/ALBUTEROL SULFATE 2.5 MG AMPUL.NEB 3 ML INHALATION (12:07)
[2022-05-01] MEDS: methylPREDNISolone ACETATE 40 MG/ML VIAL 80 MG IM (12:12)
[2022-05-01 12:14] LABS: Basophils Absolute Auto 0.05 K/mm3 (0.00-0.10); Basophils Percent Auto 0.5 % (0.0-1.0); Eosinophils Absolute Auto 0.27 K/mm3 (0.02-0.50); Eosinophils Percent Auto 2.6 % (1.0-6.0); Immature Granulocyte Absolute 0.07 K/mm3 (0.00-0.00); Immature Granulocyte Percent A 0.7 % (0.0-0.0); Lymphocytes Absolute Auto 1.17 K/mm3 (1.10-4.50); Lymphocytes Percent Auto 11.4 % (18.0-42.0); Mean Corpuscular Hemoglobin 25.4 pg (27.0-31.0); Mean Corpuscular Volume 90.7 fL (78.0-102.0); Mean Platelet Volume 9.1 fl (9.2-11.8); Monocytes Absolute Auto 0.99 K/mm3 (0.10-0.90); Monocytes Percent Auto 9.6 % (2.0-11.0); Neutrophils Absolute Auto 7.7 K/mm3 (1.7-7.2); Neutrophils Percent Auto 75.2 % (50.0-70.0); Nucleated Red Blood Cells Absolute Auto 0.04 K/mm3 (0.00-0.00); Nucleated Red Blood Cells Perc 0.4 % (0-0.0); Platelet Count Result 405 K/mm3 (150-420); Red Blood Count 2.05 M/mm3 (4.20-5.40); Red Cell Distribution Width 16.6 % (11.6-14.4); White Blood Count 10.3 K/mm3 (4.8-10.8)
[2022-05-01 12:17] LABS: Hematocrit 18.6 % (35.0-42.0); Hemoglobin 5.2 g/dL (11.7-13.8)
[2022-05-01 12:41] LABS: Alanine Aminotransferase 26 U/L (14-59); Albumin Level 2.8 g/dL (3.4-5.0); Alkaline Phosphatase 71 U/L (46-116); Anion Gap 5 mmol/L (8-16); Aspartate Amino Transferase 16 U/L (15-37); Bilirubin,Total 0.3 mg/dL (0.00-1.00); Blood Urea Nitrogen 32 mg/dL (7-18); Calcium 8.7 mg/dL (8.5-10.1); Carbon Dioxide 36 mmol/L (21-32); Chloride 102 mmol/L (98-108); Estimated Glomerular Filt Rate 38; Glucose 101 mg/dL (70-99); Magnesium 2.4 mg/dL (1.8-2.4); NT Pro B Type Natriuretic Pept 1579 pg/mL (0-125); Osmolality Calculated 302 mOsm/kg (285-295); Potassium 4.1 mmol/L (3.5-5.1); Sodium 143 mmol/L (136-145); Total Protein 5.9 g/dL (6.4-8.2); Troponin I 11.6 ng/L (0.00-60.4)
[2022-05-01 12:44] LABS: INR 1.1; Partial Thromboplastin Time 25.7 SEC (23.90-30.70); Prothrombin Time 11.7 Seconds (9.50-12.10)
[2022-05-01 12:46] LABS: D Dimer 0.69 mg/L (0.19-0.50)
[2022-05-01 12:48] LABS: Occult Blood Positive (Negative)
[2022-05-01 12:58] LABS: SARS-CoV-2 RNA PCR Negative (Negative)
--- NOTE | 2022-05-01 13:05 | ED.SOB ---
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 The patient presents via EMS with increasing shortness of breath over the last day or 2 O2 sats at 100% on room air there is no chest pain no abdominal pain, although the patient does have a pretty significant central ventral ventral hernia in her abdomen, there is no abdominal pain no nausea vomiting. Currently the patient is followed from [facility], with no fever chills no chest pain. MD elicited complaint: shortness of breath Pertinent past history: asthma and congestive heart failure Onset (ago): day(s) Timing: constant Severity: moderate Exacerbating factors: nothing Related Data Home Medications Medication Instructions Recorded Confirmed acetaminophen 500 mg capsule 500 mg PO Q6H PRN Pain 11/24/19 05/01/22 aspirin 81 mg tablet,delayed 81 mg PO DAILY 11/24/19 05/01/22 release (Adult Aspirin Regimen) atorvastatin 40 mg tablet 40 mg PO DAILY 11/24/19 05/01/22 escitalopram oxalate 20 mg tablet 10 mg PO DAILY 11/24/19 05/01/22 levetiracetam 250 mg tablet 250 mg PO Q12H 11/24/19 05/01/22 melatonin 5 mg capsule 5 mg PO HS 11/24/19 05/01/22 potassium chloride 20 mEq 20 meq PO DAILY 11/24/19 05/01/22 tablet,extended release spironolactone 25 mg tablet 25 mg PO DAILY 11/24/19 05/01/22 alprazolam 0.5 mg tablet 1 tablet QID PRN Anxiety 03/10/22 05/01/22 ergocalciferol (vitamin D2) 1,250 1 cap WEEKLY 03/10/22 05/01/22 mcg (50,000 unit) capsule multivitamin with folic acid 400 1 tablet PO DAILY 03/10/22 05/01/22 mcg tablet (Daily-Annie (with folic acid)) alendronate 70 mg tablet 70 mg PO DIRECTED 04/14/22 05/01/22 gabapentin 300 mg capsule 300 mg PO DIRECTED 04/14/22 05/01/22 omeprazole 20 mg capsule,delayed 20 mg PO DIRECTED 04/14/22 05/01/22 release Allergies Allergy/AdvReac Type Severity Reaction Status Date / Time adhesive Allergy Unknown Unknown Verified 05/01/22 11:28 hydrocodone Allergy Unknown Unknown Verified 05/01/22 11:28 iodine Allergy Unknown Unknown Verified 05/01/22 11:28 latex Allergy Unknown Unknown Verified 05/01/22 11:28 lorazepam Allergy Unknown Unknown Verified 05/01/22 11:28 nickel Allergy Unknown Unknown Verified 05/01/22 11:28 Review of Systems Review of Systems: All systems reviewed & are unremarkable except as noted in HPI and below PMFSH Past Medical History Medical History CKD (chronic kidney disease) stage 3, GFR 30-59 ml/min COPD (chronic obstructive pulmonary disease) Diastolic dysfunction Dyslipidemia Edema of both legs Hand cramps History of tobacco abuse Pulmonary embolism Small cell lung cancer Family History Family History Sibling Family history of arthritis Father Melanoma Mother No problems noted. Social History Social History Smoking packs per day: 1 Smoking cigarettes per day: 20.0 Years smoked: 50 Smoking pack-years: 50.00 Smoking status: Former smoker Tobacco type: cigarettes Second hand tobacco smoke exposure: No Smoking end date: 09/14/05 Alcohol intake: never Substance use: never Substance use type: does not use Gender identity (if verbalized by the patient): Female Sexual Orientation (if Verbalized by the Patient): Straight or Heterosexual Spiritual care concerns: No Exam Const: General: healthy appearing and no acute distress Limitations: no limitations HENMT: Head: normal to inspection Face and sin
[2022-05-01] MEDS: SODIUM CHLORIDE 0.9% IV 250 ML 30 ML IV CONT (13:15)
--- NOTE | 2022-05-07 12:49 | PC.NURSE ---
final blood culture results x2 no growth
== END 2022-05-01 15:22 | disposition short-term general hospital (02) ==
PROVIDERS: Emergency Provider Emergency Medicine; PCP Internal Medicine
DX: R06.02 Shortness of breath (principal); K92.2 Gastrointestinal hemorrhage, unspecified; Z20.822 Contact with and (suspected) exposure to COVID-19; N18.30 Chronic kidney disease, stage 3 unspecified; J44.9 Chronic obstructive pulmonary disease, unspecified; E78.5 Hyperlipidemia, unspecified; Z87.891 Personal history of nicotine dependence
CPT/HCPCS: 36415; 36430; 71045; 80053; 82272; 83735; 83880; 84484; 85025; 85380; 85610; 85730; 86850; 86900; 86901; 86920; 87040; 93005; 94640; 96360; 96361; 96372; 99285; C9803; J1030; J7050; P9016; U0003; U0005

== ENCOUNTER 2022-05-01 16:00 | Inpatient (IN) | payer MEDICARE, MEDICAID, SELFPAY ==
--- NOTE | ~2022-05-01 | XR_ITS ---
EXAMINATION: XR chest 1V portable DATE: 05/03/2022 06:01 INDICATION: Shortness of breath. Wheezing. TECHNIQUE: A single frontal view of the chest was obtained. COMPARISON: Chest single view 05/02/2022 FINDINGS: There are lucencies in the lungs, consistent with emphysema. There are airspace opacities i n left lower lung zone. No pleural effusion or pneumothorax. The heart size is normal. IMPRESSION: 1. Stable airspace opacities in left lower lung zone, consistent with atelectasis versus pneumonia. 2. Emphysema. Reviewed, dictated and finalized at location A. IMPRESSION: 1. Stable airspace opacities in left lower lung zone, consistent with atelectas is versus pneumonia. 2. Emphysema.
--- NOTE | ~2022-05-01 | XR_ITS ---
EXAMINATION: XR chest 1V portable DATE: 05/02/2022 05:24 INDICATION: Shortness of breath TECHNIQUE: frontal view of the chest was obtained. COMPARISON: Chest radiograph dated 05/01/2022 FINDINGS: Mild linear discoid atelectasis in the right mid and lower lung zone. Additional more patchy airspace opacities at the medial aspect of the bilateral lower lung zones which could represent additional at electasis or pneumonia. Increased lucency and some architectural distortion in the upper lung zones c onsistent with emphysema. No pneumothorax or definitive pleural effusion. The cardiomediastinal silho uette is normal. IMPRESSION: 1. Opacities at the medial lung bases which could represent atelectasis or pneumonia. 2. Emphysema. Reviewed, dictated and finalized at location A. IMPRESSION: 1. Opacities at the medial lung bases which could represent atelectasis or pneu monia. 2. Emphysema.
--- NOTE | ~2022-05-01 | XR_ITS ---
EXAMINATION: XR chest 1V portable DATE: 05/06/2022 10:32 INDICATION: Wheezing. TECHNIQUE: A single frontal view of the chest was obtained. COMPARISON: Chest single view 05/03/2022, CT abdomen and pelvis 04/03/2022 FINDINGS: There are lucencies in the lungs, consistent with emphysema. There are airspace opacities i n right mid and lower lung zones and left lower lung zone. No pleural effusion or pneumothorax. The h eart size is normal. There are old healed right rib fractures. IMPRESSION: 1. Mild airspace opacities in right mid and lower lung zones and left lower lung zone, consistent wit h atelectasis/scarring versus pneumonia. 2. Emphysema. Reviewed, dictated and finalized at location A. IMPRESSION: 1. Mild airspace opacities in right mid and lower lung zones and left lower shyam g zone, consistent with atelectasis/scarring versus pneumonia. 2. Emphysema.
--- NOTE | ~2022-05-01 | US_ITS ---
EXAMINATION: US venous doppler UE RT DATE: 05/08/2022 11:28 INDICATION: Right upper extremity swelling and redness TECHNIQUE: Valente scale images with and without compression and Doppler images of the right upper extre mity veins were obtained. COMPARISON: None. FINDINGS: The right internal jugular vein, subclavian vein, axillary vein, brachial veins, basilic vein, cephal ic vein, radial vein, and ulnar vein are patent. IMPRESSION: 1. Patent right upper extremity veins. No evidence of deep venous thrombosis. Reviewed, dictated and finalized at location A.
--- NOTE | ~2022-05-01 | XR_ITS ---
EXAMINATION: XR elbow RT 2V DATE: 05/09/2022 11:04 INDICATION: Right elbow pain and swelling. TECHNIQUE: 2 views of right elbow were obtained. COMPARISON: None. FINDINGS: Bone alignment is normal. No fracture. Joint spaces are normal. There is heterotopic ossifi cation distal to medial humeral epicondyle. There is an elbow joint effusion. There is soft tissue sw elling overlying olecranon, consistent with bursitis. IMPRESSION: 1. Elbow joint effusion. No fracture identified. 2. Olecranon bursitis. Reviewed, dictated and finalized at location A.
--- NOTE | ~2022-05-01 | XR_ITS ---
EXAMINATION: XR chest 1V portable DATE: 05/07/2022 08:27 INDICATION: Pneumonia. TECHNIQUE: A single frontal view of the chest was obtained. COMPARISON: Chest single view 05/06/2022 FINDINGS: There are lucencies in the lungs, consistent with emphysema. There are airspace opacities i n right mid and lower lung zones and left lower lung zone. No pleural effusion or pneumothorax. The h eart size is normal. IMPRESSION: 1. Stable airspace opacities in right mid and lower lung zones and left lower lung zone, consistent w ith atelectasis/scarring versus pneumonia. 2. Emphysema. Reviewed, dictated and finalized at location A. IMPRESSION: 1. Stable airspace opacities in right mid and lower lung zones and left lower l karina zone, consistent with atelectasis/scarring versus pneumonia. 2. Emphysema.
[2022-05-01 16:05] VITALS: PULSE 88; RESP 26; O2SAT 98
--- NOTE | 2022-05-01 16:05 | ADMGEN ---
This patient, Teresa Levi, was admitted to Medical Room 249-01. Patient/family oriented to hospital policies and general routines including ID bracelet, bed and alarms, visiting hours, pain management, procedures, bathroom and other care routines, personal items, smoking policy, room service/diet, and visiting hours. Information on how to activate the Rapid Response Team has been discussed. Patient/Family are encouraged to report perceived risks to care and to ask questions if they do not understand what they are told or what they should do.
[2022-05-01 18:16] VITALS: PULSE 88; RESP 26; O2SAT 98
[2022-05-01 18:26] VITALS: BP 109/54; PULSE 97; RESP 24; TEMP 36.1; O2SAT 97
[2022-05-01 18:45] LABS: Basophils Percent Auto 0.4 % (0.2-1.2); Eosinophils Absolute Auto 0.1 K/mm3 (0-0.3); Eosinophils Percent Auto 1.4 % (0-4.4); Hematocrit 21.7 % (37.0-47.0); Immature Granulocyte Absolute 0.06 K/mm3 (0.00-0.031); Immature Granulocyte Percent A 0.6 % (0-0.5); Lymphocytes Absolute Auto 0.97 K/mm3 (0.9-3.2); Lymphocytes Percent Auto 9.5 % (18.3-44.2); Mean Corpuscular Hemoglobin 25.3 pg (26-34); Mean Corpuscular Volume 87.1 fl (80-100); Monocytes Absolute Auto 0.9 K/mm3 (0.1-0.6); Neutrophils Absolute Auto 8.1 K/mm3 (1.3-6.7); Neutrophils Percent Auto 79.1 % (45.5-73.1); Nucleated Red Blood Cells Perc 0.4 % (0.0-0.2); Platelet Count Result 373 k/mm3 (150-375); Red Blood Count 2.49 M/mm3 (4.2-5.4); Red Cell Distribution Width 17.2 % (11.5-14.5); White Blood Count 10.2 K/mm3 (4.5-10.0)
[2022-05-01 18:53] LABS: Magnesium 2.2 mg/dL (1.6-2.3)
[2022-05-01 18:56] LABS: INR 1.5; Prothrombin Time 17.1 Seconds (11.1-14.7)
[2022-05-01] MEDS: BISACODYL 5 MG TABLET EC 20 MG PO (19:01)
[2022-05-01] MEDS: polyethylene glycoL 3350 238 GM BOTTLE PO (19:02)
[2022-05-01 19:24] LABS: Hemoglobin 6.3 g/dL (12.0-15.0)
[2022-05-01 19:27] LABS: Anisocytosis 2+ (NORMAL); Hypochromasia 1+ (NORMAL); Platelet Estimate Adequate (Adequate)
[2022-05-01 20:00] VITALS: PULSE 98; RESP 20; O2SAT 93
--- NOTE | 2022-05-01 20:00 | PM.IMHP ---
H&P: HPI History of Present Illness Date/Time: 05/01/22 20:00 Chief Complaint: GI bleed, anemia. Narrative: This is a 71-year-old female with history of pulmonary embolism diagnosed in January 2022 on apixaban, chronic respiratory failure on 2 L nasal cannula, chronic obstructive pulmonary disease, stroke, seizure disorder, coronary artery disease, hypertension, and other comorbidities who is being directly admitted to the medical floor from the emergency department at the [facility] for further treatment and evaluation of anemia felt to be related to a GI bleed. She presented to the ER with complaints of shortness of breath and workup revealed profound anemia with a hemoglobin of 5.2. Over the last several months she has had 1 hospitalization and multiple ER visits and her hemoglobin and hematocrit were noted to have drifted down gradually. In fact she was seen in the ER on 04/08/2022 at which time her hemoglobin was 6.6 and she was given a unit of blood and discharged home. Her stool was guaiac positive and plans were made for and upcoming upper and lower endoscopy. At the time my evaluation she is resting comfortably and she has completed her bowel prep though she has yet to have a bowel movement. She does seem a bit short of breath after receiving a unit of blood but she states she is not more short of breath and she has been the last several days. She has not noticed any overt blood or dark stools. She has not had abdominal pain or bloating (she does have a large ventral hernia which has not been causing her problems) though she does endorse belching. Aside from the apixaban started in November 2021, she does not believe she has been placed on any new medications recently. Review of Systems Review of Systems: Twelve systems were reviewed. No fever, chills, or sweats. No cold or flu symptoms. No chest or pleuritic pain. Perhaps mild orthopnea, she has also noticed some lower extremity edema the last couple of days which is unusual for her. Appetite has been good. No nausea or vomiting. Last week she fell asleep in her wheelchair and fell forward out of the chair which resulted in a right 3rd finger fracture and a transverse, nondisplaced fracture of the right patella. She is being followed by Dr. Rudolph. Except as documented, all other systems were reviewed and are negative. [facility] Past Medical History Medical History (Updated 05/01/22 @ 23:57 by Deidre Murillo PA-C) Cerebrovascular accident Residual right-sided weakness. Chronic kidney disease, stage 3 Chronic obstructive pulmonary disease Depression with anxiety Diastolic congestive heart failure Diastolic dysfunction Dyslipidemia Hypertension Pulmonary embolism (11/2021) Seizure disorder Small cell lung cancer Status post chemoradiotherapy. Surgical History Surgical History (Updated 05/01/22 @ 23:08 by Deidre Murillo PA-C) History of abdominal aortic aneurysm repair History of cardiac catheterization History of heart artery stent History of incisional hernia repair History of inguinal hernia repair History of left nephrectomy At age 3, done for unclear reasons. Family History Family History Sibling Family history of arthritis Father Melanoma Mother No problems noted. Social History Social History (Updated 05/01/22 @ 23:55 by Deidre Murillo PA-C) Social History: [id number]: Isabela. Code status: Full code. Smoking packs per day: 1 Smoking cigarettes per day: 20.0 Years smoked: 50 Smoking pack-years: 50.00 Smoking status: Former smoker Tobacco type: cigarettes Second hand tobacco smoke exposure: No Smoking end date: 09/14/05 Alcohol intake: former Alcohol use details: No alcohol since 2005. Substance use: never Substance use type: does not use Additional living arrangements comments: Lives in assisted living. Wheelchair-bound due to r
[2022-05-01] MEDS: SODIUM CHLORIDE 0.9% IV 250 ML 30 ML IV CONT (20:05)
[2022-05-01 22:00] VITALS: BP 115/69; PULSE 98; RESP 20; TEMP 37.1; O2SAT 93
[2022-05-01] MEDS: rOPINIRole HCL 1 MG TABLET PO (22:57)
[2022-05-01] MEDS: levETIRAcetam 250 MG TABLET PO (22:57)
[2022-05-01] MEDS: MELATONIN 5 MG TABLET PO (22:57)
[2022-05-01] MEDS: GABAPENTIN 300 MG CAPSULE PO (22:58)
[2022-05-01] MEDS: PANTOPRAZOLE SODIUM IV 40 MG VIAL IV PUSH (22:58)
[2022-05-02] VITALS (26 sets, daily range): BP systolic 113–146; BP diastolic 59–85; PULSE 74–104; RESP 18–26; TEMP 36–36.9; O2SAT 89–100; BMI 34.1
[2022-05-02] MEDS: methylPREDNISolone SOD SUCC 125 MG VIAL 60 MG IV PUSH ×2 (06:39→12:10)
[2022-05-02] MEDS: SODIUM CHLORIDE 0.9% IV 250 ML 30 ML (06:43)
[2022-05-02] MEDS: ACETAMINOPHEN 500 MG TABLET PO (08:25)
[2022-05-02] MEDS: levETIRAcetam 250 MG TABLET PO ×2 (08:26→21:00)
[2022-05-02] MEDS: rOPINIRole HCL 1 MG TABLET PO ×3 (08:26→20:59)
[2022-05-02] MEDS: GABAPENTIN 300 MG CAPSULE PO ×3 (08:26→20:59)
[2022-05-02] MEDS: POTASSIUM CHLORIDE 20 MEQ TABLET.ER PO (08:26)
[2022-05-02] MEDS: FUROSEMIDE 40 MG TABLET PO (08:26)
[2022-05-02] MEDS: ALPRAZolam (*CRX) 0.5 MG TABLET BY MOUTH (08:27)
[2022-05-02] MEDS: ESCITALOPRAM OXALATE 10 MG TABLET PO (08:27)
[2022-05-02] MEDS: PANTOPRAZOLE SODIUM IV 40 MG VIAL IV PUSH ×2 (08:27→21:00)
[2022-05-02] MEDS: ALBUTEROL SULFATE NEB 2.5 MG/0.5 ML INH INHALATION ×5 (08:30→23:36)
[2022-05-02] MEDS: UMECLIDINIUM BROMIDE 62.5 MCG ELLIPTA 1 PUFF INHALATION (08:30)
[2022-05-02] MEDS: IPRATROPIUM BR 0.02% INH SOLN 0.5 MG/2.5 ML VIAL INHALATION ×5 (08:30→23:36)
[2022-05-02] MEDS: FUROSEMIDE INJ 40 MG/4 ML VIAL IV PUSH ×2 (09:10→15:43)
--- NOTE | 2022-05-02 10:05 | PM.IMPN ---
Progress Note: A&P Assessment and Plan (1) GI bleed: Code(s): K92.2 - Gastrointestinal hemorrhage, unspecified Status: Acute Assessment and Plan: patient admitted to the hospital and found to have hemoglobin 5.2 and positive fecal occult. Planned for upper and lower endoscopy with Dr. Freeman hilario is today however patient developed respiratory distress and was transferred to IMU. We will defer endoscopy until patient's respiratory status is stable. Continue IV Protonix b.i.d. Hold anticoagulation and antiplatelets. Monitor stools transfuse as needed as below (2) Acute blood loss anemia: Code(s): D62 - Acute posthemorrhagic anemia Status: Acute Assessment and Plan: Secondary to GI bleed. patient received 1 unit of PRBCs at [facility], orders to transfuse 2 units upon transfer. Patient received 1 unit of blood and then was noted to have respiratory distress. She was given Lasix 40 mg IV x1 2nd unit now transfusing and will repeat hemoglobin a 2 hours after unit. Give additional lasix 40 mg IV following the 2nd unit of blooe. Transfuse if hemoglobin <7 (3) Acute and chronic respiratory failure, unspecified whether with hypoxia or hypercapnia: Qualifiers: Respiratory failure complication: hypoxia and hypercapnia Qualified Code(s): J96.21 - Acute and chronic respiratory failure with hypoxia; J96.22 - Acute and chronic respiratory failure with hypercapnia Code(s): J96.20 - Acute and chronic respiratory failure, unspecified whether with hypoxia or hypercapnia Status: Acute Assessment and Plan: patient uses 2 L of oxygen at home chronically. Patient requiring BiPAP for respiratory distress. ABG results as above. Appears patient has chronic mildly elevated CO2. PO2 84 on 35% FiO2. We will continue treatment for acute CHF exacerbation and acute COPD exacerbation. Monitor respiratory status weaned to home oxygen use as tolerated. D-dimer 0.69 on admission. VTE on likely with age adjusted level. Per ED notes, CTA was discussed with patient's family /POA which was refused due to patient chronic kidney disease. patient does have history of PE diagnosed in November 2021 and has been on Eliquis up until admission when she was admitted for evaluation of GI bleed and acute anemia. (4) Diastolic congestive heart failure: Qualifiers: Heart failure chronicity: acute on chronic Qualified Code(s): I50.33 - Acute on chronic diastolic (congestive) heart failure Code(s): I50.30 - Unspecified diastolic (congestive) heart failure Status: Acute Assessment and Plan: 01/24/2022 transthoracic echocardiogram showed normal LV systolic function, EF 55-60% and grade 1 diastolic dysfunction. Patient had increasing shortness of breath and 2+ pitting edema to bilateral lower extremities toes to the thighs. BNP 1579 on admission. Lasix IV as above following transfusion. Then will continue 40 mg IV as blood pressure tolerates. Daily weights and strict I's and O's. Spironolactone held due to GI bleed. (5) Chronic obstructive pulmonary disease: Code(s): J44.9 - Chronic obstructive pulmonary disease, unspecified Status: Acute Assessment and Plan: patient with wheezing noted likely secondary to CHF exacerbation and volume overload from transfusions, but may be acute exacerbation of COPD. However patient does have COPD oxygen dependent and significant emphysema noticed on noted on chest x-ray. Patient was started on IV steroids overnight. Given complaints of GI bleed will decrease steroids to 40 mg IV q.8 hours. Continue DuoNebs q.4 hours scheduled. Patient was placed on BiPAP this morning at 08/19/2020/FiO2 35% with titration to keep SpO2 greater than 92%. Patient had an improved work of breathing and comfort noted following BiPAP application. Will continue for now while diuresing. ABG in a.m.
[2022-05-02 10:26] LABS: Alveolar/Arterial O2 Gradient 108.4 mmHg; Base Excess ABG 3.7 mEq/l (+/-2.0); Device BIPAP; Fractional Inspired Oxygen 35 %; HCO3 ABG 29.2 mEq/l (22.0-26.0); Modified Allen's Test Pass; Oxygen Content ABG 12.5 %vol (16.0-22.0); Oxygen Saturation ABG 96.2 % (95.0-100.0); Oxyhemoglobin 94.3 % THb (90.0-100.0); PO2 ABG 84.2 mmHg (80.0-100.0); PO2 FiO2 Ratio Arterial Blood 2.41 %; Site Drawn RIGHT RADIAL; Total Hemoglobin 9.3 g/dL (12.0-18.0); pH ABG 7.393 (7.350-7.450)
[2022-05-02 10:27] LABS: Expiratory Pressure 6 cmH2O; Inspiratory Pressure 12 cmH2O
[2022-05-02 11:22] LABS: Alanine Aminotransferase 22 U/L (6-35); Albumin Level 2.9 g/dL (3.5-5.1); Alkaline Phosphatase 66 U/L (38-126); Anion Gap 5 mmol/L (8-16); Aspartate Amino Transferase 23 U/L (14-36); Bilirubin,Total 0.3 mg/dL (0.2-1.3); Blood Urea Nitrogen 32 mg/dL (7-17); Calcium 8.7 mg/dL (8.4-10.2); Carbon Dioxide 35 mmol/L (22-30); Chloride 96 mmol/L (98-107); Estimated CRCL calculation 41 ml/min; Estimated Glomerular Filt Rate 40; Glucose 88 mg/dL (65-110); Magnesium 2.2 mg/dL (1.6-2.3); Potassium 4.3 mmol/L (3.4-5.0); Sodium 136 mmol/L (137-145)
--- NOTE | 2022-05-02 12:45 | PC.NURSE ---
Pt trx to 214 from 249 with Bipap & blood transfusing. Pt A & O x 3. V/S stable.
--- NOTE | 2022-05-02 12:52 | PC.NURSE ---
This patient, Teresa Levi, was received from room 249 to room 214 on 05/02/22 at 1252. Patient/family oriented to unit policies and routines.
--- NOTE | 2022-05-02 15:23 | WPDGICN ---
Assessment and Plan Assessment and plan (1) Acute blood loss anemia: Code(s): D62 - Acute posthemorrhagic anemia Status: Acute Assessment and Plan: admitted with worsening anemia, initially noted several weeks ago and had positive blood in stool but did not follow-up with gi patient completed prep last night but became tachypneic and currently is on bipap no overt gib and thus far responded to blood transfusion hold off endoscopy evaluation until respiratory status is better (2) Occult blood in stools: Code(s): R19.5 - Other fecal abnormalities Status: Acute Assessment and Plan: will need at some point egd and colonoscopy (3) Acute and chronic respiratory failure, unspecified whether with hypoxia or hypercapnia: Qualifiers: Respiratory failure complication: hypoxia and hypercapnia Qualified Code(s): J96.21 - Acute and chronic respiratory failure with hypoxia; J96.22 - Acute and chronic respiratory failure with hypercapnia Code(s): J96.20 - Acute and chronic respiratory failure, unspecified whether with hypoxia or hypercapnia Status: Acute Assessment and Plan: currently on bipap, also fluid overload by primary she is not stable to undergo procedures today (4) Diastolic congestive heart failure: Qualifiers: Heart failure chronicity: acute on chronic Qualified Code(s): I50.33 - Acute on chronic diastolic (congestive) heart failure Code(s): I50.30 - Unspecified diastolic (congestive) heart failure Status: Acute (5) Chronic obstructive pulmonary disease: Code(s): J44.9 - Chronic obstructive pulmonary disease, unspecified Status: Acute (6) Pulmonary embolism: Onset Date: 11/2021 Code(s): I26.99 - Other pulmonary embolism without acute cor pulmonale Status: Acute Assessment and Plan: blood thinner on hold in setting of worsening anemia (7) CKD (chronic kidney disease) stage 3, GFR 30-59 ml/min: Qualifiers: Chronic kidney disease stage 3 subtype: unspecified whether 3a or 3b Qualified Code(s): N18.30 - Chronic kidney disease, stage 3 unspecified Code(s): N18.30 - Chronic kidney disease, stage 3 unspecified Status: Acute GI Consult Note Consult date/time: 05/02/22 15:23 Reason for consult: acute on chronic blood loss anemia, FOBT+ HPI: Teresa Levi is a 71 year old female with history of pulmonary embolism diagnosed in January 2022 on apixaban, lung cancer s/p XRT and chemotherapy now on remission, chronic respiratory failure on 2 L nasal cannula, chronic obstructive pulmonary disease, stroke, seizure disorder, coronary artery disease, hypertension who was admitted from [facility] to the medical floor for further treatment and evaluation of anemia. She came here with progressive shortness of breath and fatigue, found to have profound anemia with a hemoglobin of 5.2, inr 1.5, bun 32, creatinine 1.3. She has been evaluated previously and had other ER visits, her hemoglobin noted to have drifted down gradually, she was seen in the ER on 04/08/2022 at which time her hemoglobin was 6.6 with positive occult blood in stool and given a unit of blood and discharged home but never had scopes, the idea was for her to see GI eventually. Denies obvious blood in stool but has been darker. She received more blood transfusion but also noted to have more respiratory distress and currently is on bipap with high pco2. Family member at bedside Review of Systems Constitutional: Constitutional: Reports fatigue, Reports lethargy and Reports weakness Eyes: Eyes: Denies blurry vision ENT: Reports Normal hearing present Cardiovascular: Cardiovascular: Reports lightheadedness Respiratory: Respiratory: Reports dyspnea on exertion Gastrointestinal: Gastrointestinal: Denies nausea Genitourinary: Genitourinary: Denies hematuria Musculoskeletal: Musculoskeletal: Denies myalgias Integumentary/Breast
[2022-05-02 17:04] LABS: Hematocrit 31.6 % (37.0-47.0); Hemoglobin 9.6 g/dL (12.0-15.0)
[2022-05-02] MEDS: ALBUTEROL SULFATE NEB 2.5 MG/0.5 ML INH (17:11)
[2022-05-02] MEDS: methylPREDNISolone SOD SUCC 40 MG VIAL IV PUSH (21:00)
[2022-05-03] VITALS (21 sets, daily range): BP systolic 111–129; BP diastolic 56–68; PULSE 61–87; RESP 16–28; TEMP 36.4–36.8; O2SAT 92–100
[2022-05-03] MEDS: IPRATROPIUM BR 0.02% INH SOLN 0.5 MG/2.5 ML VIAL INHALATION ×6 (04:17→23:59)
[2022-05-03] MEDS: ALBUTEROL SULFATE NEB 2.5 MG/0.5 ML INH INHALATION ×6 (04:17→23:59)
[2022-05-03 04:49] LABS: Hematocrit 29.6 % (37.0-47.0); Hemoglobin 8.9 g/dL (12.0-15.0); Mean Corpuscular HGB Conc 30.1 g/dl (32-36); Mean Corpuscular Hemoglobin 25.5 pg (26-34); Mean Corpuscular Volume 84.8 fl (80-100); Mean Platelet Volume 9.5 fl (7.4-10.4); Platelet Count Result 339 k/mm3 (150-375); Red Blood Count 3.49 M/mm3 (4.2-5.4); Red Cell Distribution Width 16.2 % (11.5-14.5); White Blood Count 4.4 K/mm3 (4.5-10.0)
[2022-05-03 05:40] LABS: Alveolar/Arterial O2 Gradient 128.7 mmHg; Base Excess ABG 9.1 mEq/l (+/-2.0); Fractional Inspired Oxygen 35 %; Oxygen Content ABG 12.4 %vol (16.0-22.0); Oxygen Saturation ABG 88.8 % (95.0-100.0); PCO2 ABG 55.9 mmHg (35.0-45.0); PO2 ABG 55.9 mmHg (80.0-100.0); Total Hemoglobin 10.2 g/dL (12.0-18.0); pH ABG 7.415 (7.350-7.450)
[2022-05-03 05:44] LABS: Device NON-INVASIVE VENT; Modified Allen's Test Pass; Non-Invasive Vent Rate 20 /MIN; Oxyhemoglobin 86.4 % THb (90.0-100.0); Site Drawn RIGHT RADIAL
[2022-05-03 05:45] LABS: Non-Invasive Expiratory Pressure 6 CMH2O; Non-Invasive Inspiratory Pressure 12 CMH2O
[2022-05-03] MEDS: methylPREDNISolone SOD SUCC 40 MG VIAL IV PUSH ×3 (06:01→21:18)
[2022-05-03] MEDS: ACETAMINOPHEN 500 MG TABLET PO (06:02)
[2022-05-03] MEDS: ALPRAZolam (*CRX) 0.5 MG TABLET BY MOUTH (06:03)
[2022-05-03] MEDS: UMECLIDINIUM BROMIDE 62.5 MCG ELLIPTA 1 PUFF INHALATION (08:51)
[2022-05-03] MEDS: ESCITALOPRAM OXALATE 10 MG TABLET PO (09:01)
[2022-05-03] MEDS: PANTOPRAZOLE SODIUM IV 40 MG VIAL IV PUSH ×2 (09:01→21:18)
[2022-05-03] MEDS: levETIRAcetam 250 MG TABLET PO ×2 (09:01→20:55)
[2022-05-03] MEDS: rOPINIRole HCL 1 MG TABLET PO ×3 (09:01→18:05)
[2022-05-03] MEDS: FUROSEMIDE INJ 40 MG/4 ML VIAL IV PUSH (09:01)
[2022-05-03] MEDS: POTASSIUM CHLORIDE 20 MEQ TABLET.ER PO (09:01)
[2022-05-03] MEDS: GABAPENTIN 300 MG CAPSULE PO ×3 (09:01→18:05)
--- NOTE | 2022-05-03 13:25 | WPDGIPROGNO ---
Progress Note: A&P Assessment and Plan (1) Acute blood loss anemia: Code(s): D62 - Acute posthemorrhagic anemia Status: Acute Assessment and Plan: ongoing for few weeks responded to blood transfusion will give her another day to improve respiratory status and most likely will do egd and colonoscopy Thursday (2) Occult blood in stools: Code(s): R19.5 - Other fecal abnormalities Status: Acute Assessment and Plan: will do egd and colonoscopy (3) Acute and chronic respiratory failure, unspecified whether with hypoxia or hypercapnia: Qualifiers: Respiratory failure complication: hypoxia and hypercapnia Qualified Code(s): J96.21 - Acute and chronic respiratory failure with hypoxia; J96.22 - Acute and chronic respiratory failure with hypercapnia Code(s): J96.20 - Acute and chronic respiratory failure, unspecified whether with hypoxia or hypercapnia Status: Acute Assessment and Plan: treated and better (4) Pulmonary embolism: Onset Date: 11/2021 Code(s): I26.99 - Other pulmonary embolism without acute cor pulmonale Status: Acute (5) Diastolic dysfunction: Code(s): I51.89 - Other ill-defined heart diseases Status: Acute Subjective Date/time seen: 05/03/22 13:25 Interval history: she is much better, fully awake and no more respiratory distress. No report of overt gib Review of Systems Review of Systems: All systems reviewed & are unremarkable except as noted in HPI and below Exam Const: General: comfortable and no acute distress Other: chronically ill appearing HENMT: General nose exam: Normal nares present Eyes: General: appearance normal, both eyes and all related structures Neck: Neck: no JVD Resp: Auscultation: no crackles and diminished lung sounds Cardio: Rate: regular rate Rhythm: regular rhythm GI: Inspection: non-distended GI Palp: Yes Soft to palpation and No Tenderness to palpation present (GI) Auscultation: normal bowel sounds Skin: General skin exam: normal color Neuro: Speech: normal speech Extrem: General: normal to inspection Psych: Mental Status: mental status grossly normal Objective Data Vital Signs Vital Signs: Vital Signs - 24 hr 05/02/22 14:05 05/02/22 16:00 05/02/22 16:45 Temperature 97.2 F L 97.7 F Pulse Rate 80 95 76 Respiratory Rate 23 H 26 H 19 Blood Pressure 146/61 H 133/85 Pulse Oximetry 96 89 L Oxygen Delivery Oxygen Flow Rate Fraction of Inspired Oxygen 05/02/22 17:00 05/02/22 18:06 05/02/22 16:00 Temperature Pulse Rate 77 Respiratory Rate 20 Blood Pressure Pulse Oximetry 97 100 Oxygen Delivery Nasal Cannula BiPAP Oxygen Flow Rate 2 Fraction of Inspired Oxygen 35 05/02/22 16:00 05/02/22 18:00 05/02/22 20:17 Temperature Pulse Rate 79 88 79 Respiratory Rate 24 H Blood Pressure Pulse Oximetry Oxygen Delivery Oxygen Flow Rate Fraction of Inspired Oxygen 05/02/22 20:21 05/02/22 20:27 05/02/22 20:00 Temperature 97.9 F Pulse Rate 82 83 Respiratory Rate 20 20 Blood Pressure 118/75 Pulse Oximetry 97 100 Oxygen Delivery Nasal Cannula Oxygen Flow Rate 2 Fraction of Inspired Oxygen 05/02/22 20:00 05/02/22 20:00 05/02/22 22:00 Temperature Pulse Rate 82 80 Respiratory Rate Blood Pressure Pulse Oximetry 100 Oxygen Delivery Nasal Cannula Oxygen Flow Rate 2 Fraction of Inspired Oxygen 05/02/22 23:25 05/02/22 23:36 05/02/22 23:45 Temperature 98.2 F Pulse Rate 84 89 88 Respiratory Rate 20 20 20 Blood Pressure 126/59 L Pulse Oximetry 95 Oxygen Delivery Oxygen Flow Rate Fraction of Inspired Oxygen 05/02/22 23:45 05/03/22 00:00 05/03/22 00:00 Temperature Pulse Rate 88 75 Respiratory Rate 20 Blood Pressure Pulse Oximetry 97 95 Oxygen Delivery BiPAP BiPAP Oxygen Flow Rate Fraction of Inspired Oxygen 35 05/03/22
--- NOTE | 2022-05-03 14:01 | PM.IMPN ---
Progress Note: A&P Assessment and Plan (1) GI bleed: Code(s): K92.2 - Gastrointestinal hemorrhage, unspecified Status: Acute Assessment and Plan: patient admitted to the hospital and found to have hemoglobin 5.2 and positive fecal occult. Planned for upper and lower endoscopy with Dr. Freeman hilario is today however patient developed respiratory distress and was transferred to IMU. We will defer endoscopy until patient's respiratory status is stable. Continue IV Protonix b.i.d. Hold anticoagulation and antiplatelets. Monitor stools transfuse as needed as below (2) Acute blood loss anemia: Code(s): D62 - Acute posthemorrhagic anemia Status: Acute Assessment and Plan: Secondary to GI bleed. patient received 1 unit of PRBCs at [facility], orders to transfuse 2 units upon transfer. Patient received 1 unit of blood and then was noted to have respiratory distress. She was given Lasix 40 mg IV x1 2nd unit now transfusing and will repeat hemoglobin a 2 hours after unit. Give additional lasix 40 mg IV following the 2nd unit of blooe. Transfuse if hemoglobin <7 05/03/2022 interval history: patient is 71 female with history of chronic respiratory failure on home oxygen 2L NC, also history of PE on Eliquis, history of diastolic CHF and COPD presented with GI bleed with hgb of 5.2 and stool Hemoccult positive, patient was transfused 2 units, initially was admitted on medsurg and developed SOB was transferred to IMU, eliquis and aspirin on hold, suspect exacerbation of diastolic CHF and being treated with lasix being treated for COPD with methylprednisone 40mg q8 and bronchodilators, patient seen by GI recommended EGD and colonoscopy for GI bleed once patient respiratory issues have improved, today stats feeling better not as short of breath, will monitor and patient is scheduled for EGD and colonoscopy, patient is clinically stable, will CPM. (3) Acute and chronic respiratory failure, unspecified whether with hypoxia or hypercapnia: Qualifiers: Respiratory failure complication: hypoxia and hypercapnia Qualified Code(s): J96.21 - Acute and chronic respiratory failure with hypoxia; J96.22 - Acute and chronic respiratory failure with hypercapnia Code(s): J96.20 - Acute and chronic respiratory failure, unspecified whether with hypoxia or hypercapnia Status: Acute Assessment and Plan: patient uses 2 L of oxygen at home chronically. Patient requiring BiPAP for respiratory distress. ABG results as above. Appears patient has chronic mildly elevated CO2. PO2 84 on 35% FiO2. We will continue treatment for acute CHF exacerbation and acute COPD exacerbation. Monitor respiratory status weaned to home oxygen use as tolerated. D-dimer 0.69 on admission. VTE on likely with age adjusted level. Per ED notes, CTA was discussed with patient's family /POA which was refused due to patient chronic kidney disease. patient does have history of PE diagnosed in November 2021 and has been on Eliquis up until admission when she was admitted for evaluation of GI bleed and acute anemia. (4) Diastolic congestive heart failure: Qualifiers: Heart failure chronicity: acute on chronic Qualified Code(s): I50.33 - Acute on chronic diastolic (congestive) heart failure Code(s): I50.30 - Unspecified diastolic (congestive) heart failure Status: Acute Assessment and Plan: 01/24/2022 transthoracic echocardiogram showed normal LV systolic function, EF 55-60% and grade 1 diastolic dysfunction. Patient had increasing shortness of breath and 2+ pitting edema to bilateral lower extremities toes to the thighs. BNP 1579 on admission. Lasix IV as above following transfusion. Then will continue 40 mg IV as blood pressure tolerates. Daily weights and strict I's and O's. Spironolactone held due to GI bleed. (5) Chronic obstructive pulmonary disease:
--- NOTE | 2022-05-03 18:41 | PC.NURSE ---
This patient, Teresa Levi, was transferred to [facility] on 05/03/22 at 1841. Personal belongings sent with patient. Report given to LEON Sanders. Appropriate documentation sent with patient.
[2022-05-04] VITALS (21 sets, daily range): BP systolic 108–118; BP diastolic 53–70; PULSE 74–89; RESP 17–24; TEMP 35.8–36.5; O2SAT 94–99
[2022-05-04] MEDS: IPRATROPIUM BR 0.02% INH SOLN 0.5 MG/2.5 ML VIAL INHALATION ×5 (03:11→20:11)
[2022-05-04] MEDS: ALBUTEROL SULFATE NEB 2.5 MG/0.5 ML INH INHALATION ×5 (03:11→20:11)
[2022-05-04] MEDS: methylPREDNISolone SOD SUCC 40 MG VIAL IV PUSH (05:33)
[2022-05-04 06:08] LABS: Hematocrit 32.7 % (37.0-47.0); Hemoglobin 9.7 g/dL (12.0-15.0); Mean Corpuscular HGB Conc 29.7 g/dl (32-36); Mean Corpuscular Hemoglobin 25.5 pg (26-34); Mean Corpuscular Volume 86.1 fl (80-100); Mean Platelet Volume 9.8 fl (7.4-10.4); Platelet Count Result 354 k/mm3 (150-375); Red Cell Distribution Width 16.7 % (11.5-14.5); White Blood Count 9.1 K/mm3 (4.5-10.0)
[2022-05-04 06:26] LABS: Anion Gap 8 mmol/L (8-16); Blood Urea Nitrogen 43 mg/dL (7-17); Calcium 8.9 mg/dL (8.4-10.2); Carbon Dioxide 33 mmol/L (22-30); Chloride 95 mmol/L (98-107); Estimated CRCL calculation 44 ml/min; Estimated Glomerular Filt Rate 44; Glucose 119 mg/dL (65-110); Potassium 3.4 mmol/L (3.4-5.0); Sodium 136 mmol/L (137-145)
[2022-05-04] MEDS: UMECLIDINIUM BROMIDE 62.5 MCG ELLIPTA 1 PUFF INHALATION (08:11)
--- NOTE | 2022-05-04 08:12 | WPDGIPROGNO ---
Progress Note: A&P Assessment and Plan (1) Acute blood loss anemia: Code(s): D62 - Acute posthemorrhagic anemia Status: Acute Assessment and Plan: ongoing for few weeks- probably slow source of bleeding responded to blood transfusion egd and colonoscopy tomorrow (2) Occult blood in stools: Code(s): R19.5 - Other fecal abnormalities Status: Acute Assessment and Plan: will do egd and colonoscopy (3) Acute and chronic respiratory failure, unspecified whether with hypoxia or hypercapnia: Qualifiers: Respiratory failure complication: hypoxia and hypercapnia Qualified Code(s): J96.21 - Acute and chronic respiratory failure with hypoxia; J96.22 - Acute and chronic respiratory failure with hypercapnia Code(s): J96.20 - Acute and chronic respiratory failure, unspecified whether with hypoxia or hypercapnia Status: Acute Assessment and Plan: treated and better, using bipap as needed (4) Pulmonary embolism: Onset Date: 11/2021 Code(s): I26.99 - Other pulmonary embolism without acute cor pulmonale Status: Acute Assessment and Plan: blood thinner on hold (5) Diastolic dysfunction: Code(s): I51.89 - Other ill-defined heart diseases Status: Acute Subjective Date/time seen: 05/04/22 08:12 Interval history: she is using bipap but comfortable and resting, no report of overt gib Review of Systems Review of Systems: All systems reviewed & are unremarkable except as noted in HPI and below Exam Const: General: comfortable and no acute distress Other: chronically ill appearing HENMT: General nose exam: Normal nares present Eyes: General: appearance normal, both eyes and all related structures Neck: Neck: no JVD Resp: Auscultation: no crackles and diminished lung sounds Other: using bipap Cardio: Rate: regular rate Rhythm: regular rhythm GI: Inspection: non-distended GI Palp: Yes Soft to palpation and No Tenderness to palpation present (GI) Auscultation: normal bowel sounds Skin: General skin exam: normal color Neuro: Speech: normal speech Extrem: General: normal to inspection Psych: Mental Status: mental status grossly normal Objective Data Vital Signs Vital Signs: Vital Signs - 24 hr 05/03/22 08:45 05/03/22 08:45 05/03/22 08:54 Temperature Pulse Rate 84 76 Respiratory Rate 20 20 Blood Pressure Pulse Oximetry 92 Oxygen Delivery Nasal Cannula Oxygen Flow Rate 2 Fraction of Inspired Oxygen 05/03/22 10:00 05/03/22 12:00 05/03/22 12:08 Temperature Pulse Rate 64 71 64 Respiratory Rate 20 20 Blood Pressure Pulse Oximetry Oxygen Delivery Oxygen Flow Rate Fraction of Inspired Oxygen 05/03/22 12:00 05/03/22 16:05 05/03/22 16:12 Temperature 98.1 F Pulse Rate 67 80 86 Respiratory Rate 24 H 20 20 Blood Pressure 129/65 Pulse Oximetry 99 Oxygen Delivery Oxygen Flow Rate Fraction of Inspired Oxygen 05/03/22 16:00 05/03/22 19:51 05/03/22 20:20 Temperature 97.9 F 98.3 F Pulse Rate 61 73 73 Respiratory Rate 28 H 20 20 Blood Pressure 111/63 115/60 Pulse Oximetry 100 96 96 Oxygen Delivery Nasal Cannula Oxygen Flow Rate 2 Fraction of Inspired Oxygen 35 05/03/22 23:30 05/04/22 00:01 05/04/22 00:11 Temperature 98.0 F Pulse Rate 74 77 77 Respiratory Rate 17 20 22 H Blood Pressure 113/58 L Pulse Oximetry 98 97 Oxygen Delivery BiPAP Oxygen Flow Rate Fraction of Inspired Oxygen 05/04/22 00:12 05/04/22 00:12 05/03/22 21:20 Temperature Pulse Rate 81 74 Respiratory Rate 20 18 Blood Pressure Pulse Oximetry 97 Oxygen Delivery BiPAP Oxygen Flow Rate Fraction of Inspired Oxygen 40 05/03/22 21:33 05/04/22 03:12 05/04/22 03:13 Temperature Pulse Rate 73 78 78 Respiratory Rate 18 20 20 Blood Pressure Pulse Oximetry 96 Oxygen Delivery BiPAP Oxygen Flow Rate Fraction of I
[2022-05-04] MEDS: rOPINIRole HCL 1 MG TABLET PO ×3 (08:32→17:03)
[2022-05-04] MEDS: levETIRAcetam 250 MG TABLET PO ×2 (08:32→20:39)
[2022-05-04] MEDS: GABAPENTIN 300 MG CAPSULE PO ×3 (08:32→17:04)
[2022-05-04] MEDS: ALPRAZolam (*CRX) 0.5 MG TABLET BY MOUTH ×2 (08:32→17:05)
[2022-05-04] MEDS: FUROSEMIDE INJ 40 MG/4 ML VIAL IV PUSH (08:32)
[2022-05-04] MEDS: ESCITALOPRAM OXALATE 10 MG TABLET PO (08:32)
[2022-05-04] MEDS: PANTOPRAZOLE SODIUM IV 40 MG VIAL IV PUSH ×2 (08:32→20:35)
[2022-05-04] MEDS: POTASSIUM CHLORIDE 20 MEQ TABLET.ER 40 MEQ PO (08:33)
--- NOTE | 2022-05-04 10:36 | PM.IMPN ---
Progress Note: A&P Assessment and Plan (1) GI bleed: Code(s): K92.2 - Gastrointestinal hemorrhage, unspecified Status: Acute Assessment and Plan: patient admitted to the hospital and found to have hemoglobin 5.2 and positive fecal occult. Planned for upper and lower endoscopy with Dr. Grider on 05/02, however patient developed respiratory distress and was transferred to IMU. Patient's respiratory status is improving with diuresis. Plan for EGD and colonoscopy Thursday. GI following. Colon prep to start tonight 05/04. Continue IV Protonix b.i.d. Hold anticoagulation and antiplatelets. Monitor stools transfuse for Hgb <7 (2) Acute blood loss anemia: Code(s): D62 - Acute posthemorrhagic anemia Status: Acute Assessment and Plan: Secondary to GI bleed. patient received 1 unit of PRBCs at [facility], orders to transfuse 2 units upon transfer. Patient received total 3 units PRBC 05/01 to 05/02. Patient received 1 unit of blood and then was noted to have respiratory distress. Hgb 9.7 today and stable from yesterday. Endoscopy 05/05 as above. Transfuse if hemoglobin <7 (3) Acute and chronic respiratory failure, unspecified whether with hypoxia or hypercapnia: Qualifiers: Respiratory failure complication: hypoxia and hypercapnia Qualified Code(s): J96.21 - Acute and chronic respiratory failure with hypoxia; J96.22 - Acute and chronic respiratory failure with hypercapnia Code(s): J96.20 - Acute and chronic respiratory failure, unspecified whether with hypoxia or hypercapnia Status: Acute Assessment and Plan: patient uses 2 L of oxygen at home chronically. Patient required BiPAP for respiratory distress and was weaned to nighttime use only on 05/03. Appears patient has chronic mildly elevated CO2. We will continue treatment for acute CHF exacerbation and acute COPD exacerbation. Monitor respiratory status weaned to home oxygen use as tolerated. D-dimer 0.69 on admission. VTE on likely with age adjusted level. Per ED notes, CTA was discussed with patient's family/POA which was refused due to patient chronic kidney disease. Patient does have history of PE diagnosed in November 2021 and has been on Eliquis up until admission when she was admitted for evaluation of GI bleed and acute anemia. 05/04 Respiratory status improving. Bipap PRN. (4) Diastolic congestive heart failure: Qualifiers: Heart failure chronicity: acute on chronic Qualified Code(s): I50.33 - Acute on chronic diastolic (congestive) heart failure Code(s): I50.30 - Unspecified diastolic (congestive) heart failure Status: Acute Assessment and Plan: Acute on chronic. 01/24/2022 transthoracic echocardiogram showed normal LV systolic function, EF 55-60% and grade 1 diastolic dysfunction. Patient had increasing shortness of breath and 2+ pitting edema to bilateral lower extremities toes to the thighs. BNP 1579 on admission. Continue 40 mg IV as blood pressure tolerates. Daily weights and strict I's and O's. Patient is -1.7 liters from admission. Weights are fluctuant and appear inaccurate. Spironolactone held due to GI bleed. (5) Chronic obstructive pulmonary disease: Code(s): J44.9 - Chronic obstructive pulmonary disease, unspecified Status: Acute Assessment and Plan: patient with wheezing noted likely secondary to CHF exacerbation and volume overload from transfusions, but may be acute exacerbation of COPD. However patient does have COPD oxygen dependent and significant emphysema noticed on noted on chest x-ray. Wean Solumedrol 40 mg IV q-day. Transition to oral prednisone after Endoscopy. Continue DuoNebs q.4 hours scheduled. Patient weaned from BiPAP Continue Xanax q.i.d. p.r.n. (6) Chronic kidney disease, stage 3: Code(s): N18.30 - Chronic kidney disease, stage 3 unspecified Status: A
[2022-05-04] MEDS: polyethylene glycoL 3350 238 GM BOTTLE PO ×2 (12:58→20:39)
[2022-05-04] MEDS: BISACODYL 5 MG TABLET EC 20 MG PO (17:04)
[2022-05-04] MEDS: ACETAMINOPHEN 500 MG TABLET PO (17:08)
[2022-05-04] MEDS: SALINE LOCK FLUSH 10 ML IV PUSH (20:49)
[2022-05-05] VITALS (17 sets, daily range): BP systolic 110–132; BP diastolic 58–72; PULSE 62–83; RESP 18–24; TEMP 36.2–36.4; O2SAT 91–98
[2022-05-05] MEDS: IPRATROPIUM BR 0.02% INH SOLN 0.5 MG/2.5 ML VIAL INHALATION ×3 (01:37→08:11)
[2022-05-05] MEDS: ALBUTEROL SULFATE NEB 2.5 MG/0.5 ML INH INHALATION ×3 (01:37→08:11)
[2022-05-05 06:51] LABS: Hematocrit 29.3 % (37.0-47.0); Hemoglobin 8.9 g/dL (12.0-15.0); Mean Corpuscular HGB Conc 30.4 g/dl (32-36); Mean Corpuscular Hemoglobin 25.8 pg (26-34); Mean Corpuscular Volume 84.9 fl (80-100); Mean Platelet Volume 9.7 fl (7.4-10.4); Platelet Count Result 332 k/mm3 (150-375); Red Blood Count 3.45 M/mm3 (4.2-5.4); Red Cell Distribution Width 16.9 % (11.5-14.5); White Blood Count 13.6 K/mm3 (4.5-10.0)
[2022-05-05 07:13] LABS: Anion Gap 6 mmol/L (8-16); Blood Urea Nitrogen 36 mg/dL (7-17); Calcium 8.1 mg/dL (8.4-10.2); Carbon Dioxide 36 mmol/L (22-30); Chloride 96 mmol/L (98-107); Estimated CRCL calculation 52 ml/min; Estimated Glomerular Filt Rate 55; Glucose 88 mg/dL (65-110); Potassium 3.6 mmol/L (3.4-5.0); Sodium 138 mmol/L (137-145)
[2022-05-05] MEDS: UMECLIDINIUM BROMIDE 62.5 MCG ELLIPTA 1 PUFF INHALATION (08:11)
[2022-05-05] MEDS: ESCITALOPRAM OXALATE 10 MG TABLET PO (09:04)
[2022-05-05] MEDS: ALPRAZolam (*CRX) 0.5 MG TABLET BY MOUTH ×2 (09:04→16:58)
[2022-05-05] MEDS: rOPINIRole HCL 1 MG TABLET PO ×2 (09:04→16:59)
[2022-05-05] MEDS: levETIRAcetam 250 MG TABLET PO ×2 (09:04→20:58)
[2022-05-05] MEDS: PANTOPRAZOLE SODIUM IV 40 MG VIAL IV PUSH (09:05)
[2022-05-05] MEDS: methylPREDNISolone SOD SUCC 40 MG VIAL IV PUSH (09:05)
[2022-05-05] MEDS: GABAPENTIN 300 MG CAPSULE PO ×2 (09:05→16:59)
[2022-05-05] MEDS: POTASSIUM CHLORIDE 20 MEQ TABLET.ER 40 MEQ PO (09:05)
--- NOTE | 2022-05-05 10:36 | PM.IMPN ---
Progress Note: A&P Assessment and Plan (1) GI bleed: Code(s): K92.2 - Gastrointestinal hemorrhage, unspecified Status: Acute Assessment and Plan: Patient admitted to the hospital and found to have hemoglobin 5.2 and positive fecal occult. 05/02 Upper and lower endoscopy Dr. Grider deferred due to respiratory distress. Respiratory status is improving with diuresis. 05/05 EGD and colonoscopy pending. Continue IV Protonix b.i.d. Hold anticoagulation and antiplatelets. Monitor stools transfuse for Hgb <7 (2) Acute blood loss anemia: Code(s): D62 - Acute posthemorrhagic anemia Status: Acute Assessment and Plan: Secondary to GI bleed. patient received 1 unit of PRBCs at [facility] and 2 units PRBC upon transfer. Hgb 9.6 to 8.9 to 9.7 to 8.9 after transfusions. Stable >48 hours. Endoscopy 05/05 as above. Transfuse if hemoglobin <7 (3) Acute and chronic respiratory failure, unspecified whether with hypoxia or hypercapnia: Qualifiers: Respiratory failure complication: hypoxia and hypercapnia Qualified Code(s): J96.21 - Acute and chronic respiratory failure with hypoxia; J96.22 - Acute and chronic respiratory failure with hypercapnia Code(s): J96.20 - Acute and chronic respiratory failure, unspecified whether with hypoxia or hypercapnia Status: Acute Assessment and Plan: Patient uses 2 L of oxygen at home chronically. Patient required BiPAP for respiratory distress and was weaned to nighttime use only on 05/03. Appears patient has chronic mildly elevated CO2. Mental status at baseline. Continue treatment for acute CHF exacerbation and acute COPD exacerbation. D-dimer 0.69 on admission. VTE on likely with age adjusted level. Per ED notes, CTA was discussed with patient's family/POA which was refused due to patient chronic kidney disease. Patient does have history of PE diagnosed in November 2021 and has been on Eliquis up until admission when she was admitted for evaluation of GI bleed and acute anemia. 05/04 Respiratory status improving. Bipap PRN. 05/05 Respiratory status continues to improve. TCO2 36. Likely from diuretic and bowel prep. Transition to oral furosemide and oral prednisone tomorrow. WBC increased 13.6, afebrile, may be secondary to steroids. (4) Diastolic congestive heart failure: Qualifiers: Heart failure chronicity: acute on chronic Qualified Code(s): I50.33 - Acute on chronic diastolic (congestive) heart failure Code(s): I50.30 - Unspecified diastolic (congestive) heart failure Status: Acute Assessment and Plan: Acute on chronic. 01/24/2022 transthoracic echocardiogram showed normal LV systolic function, EF 55-60% and grade 1 diastolic dysfunction. Patient had increasing shortness of breath and 2+ pitting edema to bilateral lower extremities toes to the thighs. BNP 1579 on admission. Transition to furosemide 40 mg PO daily as patient appears to be improving. Patient is -3.3 liters from admission. Daily weights. Spironolactone held due to GI bleed, resume when taking PO as BP tolerates (5) Chronic obstructive pulmonary disease: Qualifiers: COPD type: COPD with acute exacerbation Qualified Code(s): J44.1 - Chronic obstructive pulmonary disease with (acute) exacerbation Code(s): J44.9 - Chronic obstructive pulmonary disease, unspecified Status: Acute Assessment and Plan: Patient with wheezing noted likely secondary to CHF exacerbation and volume overload from transfusions, but may be acute exacerbation of COPD. However patient does have COPD oxygen dependent and significant emphysema noticed on noted on chest x-ray. Transition to oral prednisone tomorrow 05/06/22 with taper Continue Incruse Ellipta. Add Advair 2 puffs BID for triple therapy LAMA/LABA/ICS. Change DuoNebs q.4 hours PRN. Continue Xanax q.i.d. p.r.n. Bipap p.r.n dyspnea (6) Chronic kidn
[2022-05-05] MEDS: LACTATED RINGERS 1,000 ML 150 ML IV CONT (12:49)
--- NOTE | 2022-05-05 13:24 | WPDANESEPPF ---
Anes - Initial Pre Proc Eval Procedure: Operation Date: 05/02/22 15:45 Proposed Procedures p Esophagogastroduodenoscopy & Colonoscopy - Otf Grider MD Operation Date: 05/05/22 14:30 Proposed Procedures p Esophagogastroduodenoscopy & Colonoscopy - Otf Grider MD Date/Time: 05/05/22 13:24 Surgeon: Annalise Sinha MD Pre Op Diagnosis: Anemia Patient Data Age: 71 Gender: F Height: 1.65 m Weight: 93 kg Last Vital Signs Temp 97.4 F L 05/05/22 12:51 Pulse 78 05/05/22 12:51 Resp 20 05/05/22 12:51 BP 132/72 05/05/22 12:51 Pulse Ox 98 05/05/22 12:51 O2 Del Method Nasal Cannula 05/05/22 12:51 O2 Flow Rate 2 05/05/22 12:51 FiO2 40 05/04/22 00:12 Allergies Allergy/AdvReac Type Severity Reaction Status Date / Time adhesive Allergy Unknown Unknown Verified 05/05/22 12:50 hydrocodone Allergy Unknown Unknown Verified 05/05/22 12:50 iodine Allergy Unknown Unknown Verified 05/05/22 12:50 latex Allergy Unknown Unknown Verified 05/05/22 12:50 lorazepam Allergy Unknown Unknown Verified 05/05/22 12:50 nickel Allergy Unknown Unknown Verified 05/05/22 12:50 Home Medications Medication Instructions Recorded Confirmed Type acetaminophen 500 mg capsule 500 mg PO Q6H PRN Pain 11/24/19 05/01/22 History aspirin 81 mg tablet,delayed 81 mg PO DAILY 11/24/19 05/01/22 History release (Adult Aspirin Regimen) atorvastatin 40 mg tablet 40 mg PO DAILY 11/24/19 05/01/22 History escitalopram oxalate 20 mg tablet 10 mg PO DAILY 11/24/19 05/01/22 History levetiracetam 250 mg tablet 250 mg PO Q12H 11/24/19 05/01/22 History melatonin 5 mg capsule 5 mg PO HS 11/24/19 05/01/22 History potassium chloride 20 mEq 20 meq PO DAILY 11/24/19 05/01/22 History tablet,extended release spironolactone 25 mg tablet 25 mg PO DAILY 11/24/19 05/01/22 History alprazolam 0.5 mg tablet 1 tablet QID PRN Anxiety 03/10/22 05/01/22 History ergocalciferol (vitamin D2) 1,250 1 cap WEEKLY 03/10/22 05/01/22 History mcg (50,000 unit) capsule multivitamin with folic acid 400 1 tablet PO DAILY 03/10/22 05/01/22 History mcg tablet (Daily-Annie (with folic acid)) furosemide 40 mg tablet (Lasix) 40 mg PO DAILY #20 tabs 04/03/22 05/01/22 Rx alendronate 70 mg tablet 70 mg PO WEEKLY 04/14/22 05/01/22 History gabapentin 300 mg capsule 300 mg PO TID 04/14/22 05/01/22 History omeprazole 20 mg capsule,delayed 20 mg PO DAILY 04/14/22 05/01/22 History release apixaban 5 mg tablet (Eliquis) 5 mg PO BID 05/01/22 05/01/22 History ropinirole 1 mg tablet 1 mg PO TID 05/01/22 05/01/22 History umeclidinium 62.5 mcg/actuation 1 inh inhalation DAILY 05/01/22 05/01/22 History blister powder for inhalation (Incruse Ellipta) Laboratory Tests 05/05/22 05/05/22 06:34 06:34 WBC 13.6 K/mm3 H K/mm3 (4.5-10.0) RBC 3.45 M/mm3 L M/mm3 (4.2-5.4) Hgb 8.9 g/dL L g/dL (12.0-15.0) Hct 29.3 % L % (37.0-47.0) MCV 84.9 fl fl (80-100) MCH 25.8 pg L pg (26-34) MCHC 30.4 g/dl L g/dl (32-36) RDW 16.9 % H % (11.5-14.5) Plt Count 332 k/mm3 k/mm3 (150-375) MPV 9.7 fl fl (7.4-10.4) Sodium 138 mmol/L mmol/L (137-145) Potassium 3.6 mmol/L mmol/L (3.4-5.0) Chloride 96 mmol/L L mmol/L (98-107) Carbon Dioxide 36 mmol/L H mmol/L (22-30) Anion Gap 6 mmol/L L mmol/L (8-16) BUN 36 mg/dL H mg/dL (7-17) Creatinine 1.00 mg/dL mg/dL (0.7-1.0) Estim Creat Clear Calc 52 ml/min ml/min Estimated GFR 55 L (59 - ) Glucose 88 mg/dL mg/dL (65-110) Calcium 8.1 mg/dL L mg/dL (8.4-10.2) Patient hx anesthesia problems: none Family hx anesthesia problems: none Results Review: All pre-operative results and documents have been reviewed as part of the pre-operative evaluation. [facility] Past Medical History Medical History (Updated 05/03/22 @ 13:23 by Otf Draper
--- NOTE | 2022-05-05 14:08 | SUR.OPER ---
EGD START 1348, END 1352 COLONOSCOPY START 1358, END 1407
[2022-05-05] MEDS: ACETAMINOPHEN 500 MG TABLET PO (16:58)
[2022-05-05] MEDS: FLUTICASONE/SALMETEROL 115-21 MCG INHALER 1 PUFF 2 PUFF INHALATION (20:16)
[2022-05-05] MEDS: guaiFENesin 12 HR 600 MG TABCR PO (20:58)
[2022-05-05] MEDS: SALINE LOCK FLUSH 10 ML IV PUSH (20:58)
[2022-05-06] VITALS (8 sets, daily range): BP systolic 112–135; BP diastolic 56–90; PULSE 63–87; RESP 18–22; TEMP 35.8–36.3; O2SAT 90–98
[2022-05-06] MEDS: ACETAMINOPHEN 500 MG TABLET PO (01:17)
[2022-05-06] MEDS: ALPRAZolam (*CRX) 0.5 MG TABLET BY MOUTH (01:19)
[2022-05-06] MEDS: GABAPENTIN 300 MG CAPSULE PO ×4 (02:44→16:51)
[2022-05-06] MEDS: rOPINIRole HCL 1 MG TABLET PO ×4 (02:44→16:51)
[2022-05-06] MEDS: SALINE LOCK FLUSH 10 ML IV PUSH ×3 (05:36→20:42)
[2022-05-06 05:55] LABS: Hematocrit 31.2 % (37.0-47.0); Hemoglobin 9.1 g/dL (12.0-15.0); Mean Corpuscular HGB Conc 29.2 g/dl (32-36); Mean Corpuscular Hemoglobin 25.2 pg (26-34); Mean Corpuscular Volume 86.4 fl (80-100); Mean Platelet Volume 9.9 fl (7.4-10.4); Platelet Count Result 310 k/mm3 (150-375); Red Blood Count 3.61 M/mm3 (4.2-5.4); Red Cell Distribution Width 16.7 % (11.5-14.5); White Blood Count 13.2 K/mm3 (4.5-10.0)
[2022-05-06 06:09] LABS: Anion Gap 4 mmol/L (8-16); Blood Urea Nitrogen 30 mg/dL (7-17); Calcium 8.8 mg/dL (8.4-10.2); Carbon Dioxide 34 mmol/L (22-30); Chloride 96 mmol/L (98-107); Estimated CRCL calculation 52 ml/min; Estimated Glomerular Filt Rate 55; Glucose 84 mg/dL (65-110); Potassium 3.8 mmol/L (3.4-5.0); Sodium 134 mmol/L (137-145)
[2022-05-06] MEDS: UMECLIDINIUM BROMIDE 62.5 MCG ELLIPTA 1 PUFF INHALATION (07:50)
[2022-05-06] MEDS: FLUTICASONE/SALMETEROL 115-21 MCG INHALER 1 PUFF 2 PUFF INHALATION ×2 (07:50→20:25)
[2022-05-06] MEDS: ESCITALOPRAM OXALATE 10 MG TABLET PO (08:30)
[2022-05-06] MEDS: guaiFENesin 12 HR 600 MG TABCR PO ×2 (08:30→20:42)
[2022-05-06] MEDS: FUROSEMIDE 40 MG TABLET PO (08:30)
[2022-05-06] MEDS: levETIRAcetam 250 MG TABLET PO ×2 (08:30→20:42)
[2022-05-06] MEDS: predniSONE 20 MG TABLET 40 MG PO (08:30)
[2022-05-06] MEDS: PANTOPRAZOLE 40 MG TABLET PO (08:30)
[2022-05-06] MEDS: POTASSIUM CHLORIDE 20 MEQ TABLET.ER 40 MEQ PO (08:31)
--- NOTE | 2022-05-06 12:57 | P.DS_ITS ---
DS: Discharge Diagnosis Discharge Diagnosis (1) GI bleed: Code(s): K92.2 - Gastrointestinal hemorrhage, unspecified Status: Acute Assessment and Plan: Patient admitted to the hospital and found to have hemoglobin 5.2 and positive fecal occult. 05/02 Upper and lower endoscopy Dr. Grider deferred due to respiratory distress. Respiratory status is improving with diuresis. 05/05 EGD and colonoscopy pending. Continue IV Protonix b.i.d. Hold anticoagulation and antiplatelets. Monitor stools transfuse for Hgb <7 (2) Acute blood loss anemia: Code(s): D62 - Acute posthemorrhagic anemia Status: Acute Assessment and Plan: Secondary to GI bleed. patient received 1 unit of PRBCs at [facility] and 2 units PRBC upon transfer. Hgb 9.6 to 8.9 to 9.7 to 8.9 after transfusions. Stable >48 hours. Endoscopy 05/05 as above. Transfuse if hemoglobin <7 (3) Acute and chronic respiratory failure, unspecified whether with hypoxia or hypercapnia: Qualifiers: Respiratory failure complication: hypoxia and hypercapnia Qualified Code(s): J96.21 - Acute and chronic respiratory failure with hypoxia; J96.22 - Acute and chronic respiratory failure with hypercapnia Code(s): J96.20 - Acute and chronic respiratory failure, unspecified whether with hypoxia or hypercapnia Status: Acute Assessment and Plan: Patient uses 2 L of oxygen at home chronically. Patient required BiPAP for respiratory distress and was weaned to nighttime use only on 05/03. Appears patient has chronic mildly elevated CO2. Mental status at baseline. Continue treatment for acute CHF exacerbation and acute COPD exacerbation. D-dimer 0.69 on admission. VTE on likely with age adjusted level. Per ED notes, CTA was discussed with patient's family/POA which was refused due to patient chronic kidney disease. Patient does have history of PE diagnosed in November 2021 and has been on Eliquis up until admission when she was admitted for evaluation of GI bleed and acute anemia. 05/04 Respiratory status improving. Bipap PRN. 05/05 Respiratory status continues to improve. TCO2 36. Likely from diuretic and bowel prep. Transition to oral furosemide and oral prednisone tomorrow. WBC increased 13.6, afebrile, may be secondary to steroids. (4) Diastolic congestive heart failure: Qualifiers: Heart failure chronicity: acute on chronic Qualified Code(s): I50.33 - Acute on chronic diastolic (congestive) heart failure Code(s): I50.30 - Unspecified diastolic (congestive) heart failure Status: Acute Assessment and Plan: Acute on chronic. 01/24/2022 transthoracic echocardiogram showed normal LV systolic function, EF 55-60% and grade 1 diastolic dysfunction. Patient had increasing shortness of breath and 2+ pitting edema to bilateral lower extremities toes to the thighs. BNP 1579 on admission. Transition to furosemide 40 mg PO daily as patient appears to be improving. Patient is -3.3 liters from admission. Daily weights. Spironolactone held due to GI bleed, resume when taking PO as BP tolerates (5) Chronic obstructive pulmonary disease: Qualifiers: COPD type: COPD with acute exacerbation Qualified Code(s): J44.1 - Chronic obstructive pulmonary disease with (acute) exacerbation Code(s): J44.9 - Chronic obstructive pulmonary disease, unspecified Status: Acute Assessment and Plan: Patient with wheezing noted likely secondary to CHF exacerbation and volume overload from transfusions, but may be acute exacerbation of COPD. However patient does lopez
--- NOTE | 2022-05-06 15:30 | PM.IMPN ---
Progress Note: A&P Assessment and Plan (1) GI bleed: Code(s): K92.2 - Gastrointestinal hemorrhage, unspecified Status: Acute Assessment and Plan: Patient admitted to the hospital and found to have hemoglobin 5.2 and positive fecal occult.? 05/02 Upper and lower endoscopy Dr. Grider deferred due to respiratory distress.? Respiratory status is improving with diuresis. 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 Continue IV Protonix b.i.d. Hold anticoagulation and antiplatelets.? Monitor stools transfuse for Hgb <7 05/06 Hgb 8.0, no stools, patient needs small bowel capsule endoscopy. Discussed with GI. Hold Eliquis until after capsule study and then will re-evaluate if it is safe to resume. Resume aspirin in 48 hours. (2) Acute blood loss anemia: Code(s): D62 - Acute posthemorrhagic anemia Status: Acute Assessment and Plan: Secondary to GI bleed.? patient received 1 unit of PRBCs at [facility] and 2 units PRBC upon transfer.? Hgb 9.6 to 8.9 to 9.7 to 8.9 after transfusions. Stable >48 hours. Transfuse if hemoglobin <7 Will start iron supplement x 8 weeks. (3) Acute and chronic respiratory failure, unspecified whether with hypoxia or hypercapnia: Qualifiers: Respiratory failure complication: hypoxia and hypercapnia Qualified Code(s): J96.21 - Acute and chronic respiratory failure with hypoxia; J96.22 - Acute and chronic respiratory failure with hypercapnia Code(s): J96.20 - Acute and chronic respiratory failure, unspecified whether with hypoxia or hypercapnia Status: Acute Assessment and Plan: Patient uses 2 L of oxygen at home chronically.? Patient required BiPAP for respiratory distress and was weaned to nighttime use only on 05/03. Appears patient has chronic mildly elevated CO2. Mental status at baseline. Continue treatment for acute CHF exacerbation and acute COPD exacerbation.? D-dimer 0.69 on admission. VTE on likely with age adjusted level.? Per ED notes, CTA was discussed with patient's family/POA which was refused due to patient chronic kidney disease.? Patient does have history of PE diagnosed in November 2021 and has been on Eliquis up until admission when she was admitted for evaluation of GI bleed and acute anemia. 05/04 Respiratory status improving. Bipap PRN. 05/05 Respiratory status continues to improve. TCO2 36. Likely from diuretic and bowel prep. Transition to oral furosemide and oral prednisone tomorrow. WBC increased 13.6, afebrile, may be secondary to steroids. 05/06/22 WBC 13.2. Repeat chest x-ray appears improved from previous images. Continue prednisone with 12-day taper outpatient. Resume furosemide 40 mg PO daily. Jerel added outpatient. She reports Pulmonology appointment is upcoming next week. Patient could not tolerate bipap last night. She may need evaluation in the future given her emphysema, however, the most recent blood gas shows pCO2 55, however, this maybe be falsely elevated from aggressive diuresis. (4) Diastolic congestive heart failure: Qualifiers: Heart failure chronicity: acute on chronic Qualified Code(s): I50.33 - Acute on chronic diastolic (congestive) heart failure Code(s): I50.30 - Unspecified diastolic (congestive) heart failure Status: Acute Assessment and Plan: cute on chronic. 01/24/2022 transthoracic echocardiogram showed normal LV systolic function, EF 55-60% and grade 1 diastolic dysfunction.? Patient had increasing shortness of breath and 2+ pitting edema to bilateral lower extremities toes to the thighs.? BNP 1579 on admission. Transition to furosemide 40 mg PO daily as patient appears to be improving. Patient is -3.3 liters from admission. Daily weights. Resume Spironolactone (5) Chronic obstructive pulmonary disease: Qualifiers: COPD type: COPD with acute exacerbation Qualified Code(s): J44.1 - Chronic obstructive pulmonary disea
[2022-05-07] VITALS (10 sets, daily range): BP systolic 98–143; BP diastolic 44–69; PULSE 62–96; RESP 16–18; TEMP 36.1–37.5; O2SAT 88–98
[2022-05-07] MEDS: ALTEPLASE 2 MG VIAL (CATHFLO) 1 MG IV PUSH (00:29)
[2022-05-07 04:07] LABS: EDCOVIDSCREEN Negative (Negative)
[2022-05-07] MEDS: ALPRAZolam (*CRX) 0.5 MG TABLET BY MOUTH (04:59)
[2022-05-07] MEDS: ACETAMINOPHEN 500 MG TABLET PO ×2 (04:59→20:02)
[2022-05-07] MEDS: SALINE LOCK FLUSH 10 ML IV PUSH ×3 (05:50→20:03)
[2022-05-07 06:44] LABS: Hematocrit 32.4 % (37.0-47.0); Hemoglobin 9.4 g/dL (12.0-15.0); Mean Corpuscular Hemoglobin 25.7 pg (26-34); Mean Corpuscular Volume 88.5 fl (80-100); Mean Platelet Volume 9.8 fl (7.4-10.4); Platelet Count Result 324 k/mm3 (150-375); Red Blood Count 3.66 M/mm3 (4.2-5.4); Red Cell Distribution Width 17.2 % (11.5-14.5); White Blood Count 17.3 K/mm3 (4.5-10.0)
[2022-05-07 07:00] LABS: Anion Gap 3 mmol/L (8-16); Blood Urea Nitrogen 29 mg/dL (7-17); Calcium 8.4 mg/dL (8.4-10.2); Carbon Dioxide 35 mmol/L (22-30); Chloride 99 mmol/L (98-107); Estimated CRCL calculation 51 ml/min; Estimated Glomerular Filt Rate 55; Glucose 84 mg/dL (65-110); Potassium 3.9 mmol/L (3.4-5.0); Sodium 137 mmol/L (137-145)
[2022-05-07] MEDS: UMECLIDINIUM BROMIDE 62.5 MCG ELLIPTA 1 PUFF INHALATION (07:47)
[2022-05-07] MEDS: FLUTICASONE/SALMETEROL 115-21 MCG INHALER 1 PUFF 2 PUFF INHALATION ×2 (07:50→19:51)
--- NOTE | 2022-05-07 08:04 | P.PNIM_ITS ---
Progress Note: A&P Assessment and Plan (1) GI bleed: Code(s): K92.2 - Gastrointestinal hemorrhage, unspecified Status: Acute Assessment and Plan: Patient admitted to the hospital and found to have hemoglobin 5.2 and positive fecal occult.? 05/02 Upper and lower endoscopy Dr. Grider deferred due to respiratory distress.? Respiratory status is improving with diuresis. 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 Continue IV Protonix b.i.d. Hold anticoagulation and antiplatelets.? Monitor stools transfuse for Hgb <7 05/06 Hgb 8.0, no stools, patient needs small bowel capsule endoscopy. Discussed with GI. Hold Eliquis until after capsule study and then will re-evaluate if it is safe to resume. Resume aspirin in 48 hours. (2) Acute blood loss anemia: Code(s): D62 - Acute posthemorrhagic anemia Status: Acute Assessment and Plan: Secondary to GI bleed.? patient received [address] [facility] and 2 units PRBC upon transfer.? Hgb 9.6 to 8.9 to 9.7 to 8.9 after transfusions. Stable >48 hours. Transfuse if hemoglobin <7 Will start iron supplement x 8 weeks. (3) Acute and chronic respiratory failure, unspecified whether with hypoxia or hypercapnia: Qualifiers: Respiratory failure complication: hypoxia and hypercapnia Qualified Code(s): J96.21 - Acute and chronic respiratory failure with hypoxia; J96.22 - Acute and chronic respiratory failure with hypercapnia Code(s): J96.20 - Acute and chronic respiratory failure, unspecified whether with hypoxia or hypercapnia Status: Acute Assessment and Plan: Patient uses 2 L of oxygen at home chronically.? Patient required BiPAP for respiratory distress and was weaned to nighttime use only on 05/03. Appears patient has chronic mildly elevated CO2. Mental status at baseline. Continue treatment for acute CHF exacerbation and acute COPD exacerbation.? D-dimer 0.69 on admission. VTE on likely with age adjusted level.? Per ED notes, CTA was discussed with patient's family/POA which was refused due to patient chronic kidney disease.? Patient does have history of PE diagnosed in November 2021 and has been on Eliquis up until admission when she was admitted for evaluation of GI bleed and acute anemia. 05/04 Respiratory status improving. Bipap PRN. 05/05 Respiratory status continues to improve. TCO2 36. Likely from diuretic and bowel prep. Transition to oral furosemide and oral prednisone tomorrow. WBC increased 13.6, afebrile, may be secondary to steroids. 05/06/22 WBC 13.2. Repeat chest x-ray appears improved from previous images. Continue prednisone with 12-day taper outpatient. Resume furosemide 40 mg PO daily. Jerel added outpatient. She reports Pulmonology appointment is upcoming next week. Patient could not tolerate bipap last night. She may need evaluation in the future given her emphysema, however, the most recent blood gas shows pCO2 55, however, this maybe be falsely elevated from aggressive diuresis. (4) Diastolic congestive heart failure: Qualifiers: Heart failure chronicity: acute on chronic Qualified Code(s): I50.33 - Acute on chronic diastolic (congestive) heart failure Code(s): I50.30 - Unspecified diastolic (congestive) heart failure Status: Acute Assessment and Plan: cute on chronic. 01/24/2022 transthoracic echocardiogram showed normal LV systolic function, EF 55-60% and grade 1 diastolic dysfunction.? Patient had increasing shortness of breath and 2+ pitting edema to bilateral lower extremities toes to the thighs.? BNP 1579 on admission. Transition to furosemide 40 mg P
--- NOTE | 2022-05-07 08:07 | P.PNIM_ITS ---
Progress Note: A&P Assessment and Plan (1) GI bleed: Code(s): K92.2 - Gastrointestinal hemorrhage, unspecified Status: Acute Assessment and Plan: Patient admitted to the hospital and found to have hemoglobin 5.2 and positive fecal occult.? 05/02 Upper and lower endoscopy Dr. Grider deferred due to respiratory distress.? Respiratory status is improving with diuresis. 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 Continue IV Protonix b.i.d. Hold anticoagulation and antiplatelets.? Monitor stools transfuse for Hgb <7 05/06 Hgb 8.0, no stools, patient needs small bowel capsule endoscopy. Discussed with GI. Hold Eliquis until after capsule study and then will re-evaluate if it is safe to resume. Resume aspirin in 48 hours. - stable (2) Acute blood loss anemia: Code(s): D62 - Acute posthemorrhagic anemia Status: Acute Assessment and Plan: Secondary to GI bleed.? patient received 1 unit of PRBCs at [facility] and 2 units PRBC upon transfer.? Hgb 9.6 to 8.9 to 9.7 to 8.9 after transfusions. Stable >48 hours. Transfuse if hemoglobin <7 continue iron supplement x 8 weeks. (3) Acute and chronic respiratory failure, unspecified whether with hypoxia or hypercapnia: Qualifiers: Respiratory failure complication: hypoxia and hypercapnia Qualified Code(s): J96.21 - Acute and chronic respiratory failure with hypoxia; J96.22 - Acute and chronic respiratory failure with hypercapnia Code(s): J96.20 - Acute and chronic respiratory failure, unspecified whether with hypoxia or hypercapnia Status: Acute Assessment and Plan: Patient uses 2 L of oxygen at home chronically.? Patient required BiPAP for respiratory distress and was weaned to nighttime use only on 05/03. --repeat chest x-ray --Monitor vital signs, I&Os, neuro status and patient is a fall risk Follow WBC, serum electrolytes, temperature curves and cultures Send sputum cultures Obtain Pneumococcal antigen urine and legionella pneumophila Ag Ur Oxygen via NC; wean as tolerated. Keep SpO2 greater than 88% Ceftriaxone 2 gram IV q24H and Azithromycin 500mg IV q24H Continue breathing treatments P.r.n. Tylenol, Zofran, and melatonin (4) Diastolic congestive heart failure: Qualifiers: Heart failure chronicity: acute on chronic Qualified Code(s): I50.33 - Acute on chronic diastolic (congestive) heart failure Code(s): I50.30 - Unspecified diastolic (congestive) heart failure Status: Acute Assessment and Plan: acute on chronic. 01/24/2022 transthoracic echocardiogram showed normal LV systolic function, EF 55-60% and grade 1 diastolic dysfunction.? Patient had increasing shortness of breath and 2+ pitting edema to bilateral lower extremities toes to the thighs.? BNP 1579 on admission. Transition to furosemide 40 mg PO daily as patient appears to be improving. Patient is -3.3 liters from admission. Daily weights. Resume Spironolactone (5) Chronic obstructive pulmonary disease: Qualifiers: COPD type: COPD with acute exacerbation Qualified Code(s): J44.1 - Chronic obstructive pulmonary disease with (acute) exacerbation Code(s): J44.9 - Chronic obstructive pulmonary disease, unspecified Status: Acute Assessment and Plan: Patient with wheezing noted likely secondary to CHF exacerbation and volume overload from transfusions, but may be acute exacerbation of COPD.? However patient does have COPD oxygen dependent and significant emphysema noticed on noted on chest x-ray. Transition to oral prednisone tomorrow 05/06/22 with tap
[2022-05-07] MEDS: predniSONE 20 MG TABLET 40 MG PO (08:48)
[2022-05-07] MEDS: ESCITALOPRAM OXALATE 10 MG TABLET PO (08:50)
[2022-05-07] MEDS: SPIRONOLACTONE 25 MG TABLET PO (08:50)
[2022-05-07] MEDS: GABAPENTIN 300 MG CAPSULE PO ×3 (08:50→17:51)
[2022-05-07] MEDS: guaiFENesin 12 HR 600 MG TABCR PO ×2 (08:50→20:03)
[2022-05-07] MEDS: rOPINIRole HCL 1 MG TABLET PO ×3 (08:50→17:51)
[2022-05-07] MEDS: levETIRAcetam 250 MG TABLET PO ×2 (08:51→20:03)
[2022-05-07] MEDS: PANTOPRAZOLE 40 MG TABLET PO (08:51)
[2022-05-07] MEDS: FUROSEMIDE 40 MG TABLET PO (08:51)
[2022-05-07] MEDS: POTASSIUM CHLORIDE 20 MEQ TABLET.ER 40 MEQ PO (08:51)
[2022-05-08] VITALS (11 sets, daily range): BP systolic 101–137; BP diastolic 62–75; PULSE 70–87; RESP 16–24; TEMP 36.8; O2SAT 94–100
[2022-05-08] MEDS: SALINE LOCK FLUSH 10 ML IV PUSH ×3 (05:32→20:11)
[2022-05-08 06:49] LABS: Hematocrit 34.4 % (37.0-47.0); Hemoglobin 9.2 g/dL (12.0-15.0); Mean Corpuscular HGB Conc 26.7 g/dl (32-36); Mean Corpuscular Hemoglobin 25.6 pg (26-34); Mean Corpuscular Volume 95.6 fl (80-100); Mean Platelet Volume 10.7 fl (7.4-10.4); Platelet Count Result 257 k/mm3 (150-375); Red Cell Distribution Width 17.6 % (11.5-14.5); White Blood Count 12.9 K/mm3 (4.5-10.0)
[2022-05-08 07:09] LABS: Anion Gap 6 mmol/L (8-16); Blood Urea Nitrogen 27 mg/dL (7-17); Calcium 8.7 mg/dL (8.4-10.2); Carbon Dioxide 29 mmol/L (22-30); Chloride 100 mmol/L (98-107); Estimated CRCL calculation 56 ml/min; Estimated Glomerular Filt Rate > 60; Glucose 79 mg/dL (65-110); Potassium 3.9 mmol/L (3.4-5.0); Sodium 135 mmol/L (137-145)
--- NOTE | 2022-05-08 08:03 | PM.IMPN ---
Progress Note: A&P Assessment and Plan (1) GI bleed: Code(s): K92.2 - Gastrointestinal hemorrhage, unspecified Status: Acute Assessment and Plan: Patient admitted to the hospital and found to have hemoglobin 5.2 and positive fecal occult.? 05/02 Upper and lower endoscopy Dr. Grider deferred due to respiratory distress.? Respiratory status is improving with diuresis. 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 Continue IV Protonix b.i.d. Hold anticoagulation and antiplatelets.? Monitor stools transfuse for Hgb <7 05/06 Hgb 8.0, no stools, patient needs small bowel capsule endoscopy. Discussed with GI. Hold Eliquis until after capsule study and then will re-evaluate if it is safe to resume. Resume aspirin in 48 hours. - stable (2) Acute blood loss anemia: Code(s): D62 - Acute posthemorrhagic anemia Status: Acute Assessment and Plan: Secondary to GI bleed.? patient received 1 unit of PRBCs at [facility] and 2 units PRBC upon transfer.? Hgb 9.6 to 8.9 to 9.7 to 8.9 after transfusions. Stable >48 hours. Transfuse if hemoglobin <7 continue iron supplement x 8 weeks. (3) Acute and chronic respiratory failure, unspecified whether with hypoxia or hypercapnia: Qualifiers: Respiratory failure complication: hypoxia and hypercapnia Qualified Code(s): J96.21 - Acute and chronic respiratory failure with hypoxia; J96.22 - Acute and chronic respiratory failure with hypercapnia Code(s): J96.20 - Acute and chronic respiratory failure, unspecified whether with hypoxia or hypercapnia Status: Acute Assessment and Plan: Patient uses 2 L of oxygen at home chronically.? Patient required BiPAP for respiratory distress and was weaned to nighttime use only on 05/03. --repeat chest x-ray --Monitor vital signs, I&Os, neuro status and patient is a fall risk Follow WBC, serum electrolytes, temperature curves and cultures Send sputum cultures Obtain Pneumococcal antigen urine and legionella pneumophila Ag Ur Oxygen via NC; wean as tolerated. Keep SpO2 greater than 88% Ceftriaxone 2 gram IV q24H and Azithromycin 500mg IV q24H Continue breathing treatments P.r.n. Tylenol, Zofran, and melatonin (4) Diastolic congestive heart failure: Qualifiers: Heart failure chronicity: acute on chronic Qualified Code(s): I50.33 - Acute on chronic diastolic (congestive) heart failure Code(s): I50.30 - Unspecified diastolic (congestive) heart failure Status: Acute Assessment and Plan: acute on chronic. 01/24/2022 transthoracic echocardiogram showed normal LV systolic function, EF 55-60% and grade 1 diastolic dysfunction.? Patient had increasing shortness of breath and 2+ pitting edema to bilateral lower extremities toes to the thighs.? BNP 1579 on admission. Transition to furosemide 40 mg PO daily as patient appears to be improving. Patient is -3.3 liters from admission. Daily weights. Resume Spironolactone 05/08/22 Administered x1 furosemide 20 mg IVP (5) Chronic obstructive pulmonary disease: Qualifiers: COPD type: COPD with acute exacerbation Qualified Code(s): J44.1 - Chronic obstructive pulmonary disease with (acute) exacerbation Code(s): J44.9 - Chronic obstructive pulmonary disease, unspecified Status: Acute Assessment and Plan: Patient with wheezing noted likely secondary to CHF exacerbation and volume overload from transfusions, but may be acute exacerbation of COPD.? However patient does have COPD oxygen dependent and significant emphysema noticed on noted on chest x-ray. Transition to oral prednisone tomorrow 05/06/22 with taper Continue Incruse Ellipta and Advair 2 puffs BID for triple therapy LAMA/LABA/ICS. Change DuoNebs q.4 hours PRN. ? Continue Xanax q.i.d. p.r.n. Patient could not tolerate bipap last night. (6) Chronic kidney disease, stage 3: Code(s): N18.30 - Chronic kidney disease, sta
[2022-05-08] MEDS: ACETAMINOPHEN 500 MG TABLET PO (08:15)
[2022-05-08] MEDS: levETIRAcetam 250 MG TABLET PO ×2 (08:18→20:11)
[2022-05-08] MEDS: POTASSIUM CHLORIDE 20 MEQ TABLET.ER 40 MEQ PO (08:18)
[2022-05-08] MEDS: GABAPENTIN 300 MG CAPSULE PO ×3 (08:18→17:11)
[2022-05-08] MEDS: PANTOPRAZOLE 40 MG TABLET PO (08:19)
[2022-05-08] MEDS: guaiFENesin 12 HR 600 MG TABCR PO ×2 (08:19→20:11)
[2022-05-08] MEDS: ESCITALOPRAM OXALATE 10 MG TABLET PO (08:19)
[2022-05-08] MEDS: rOPINIRole HCL 1 MG TABLET PO ×3 (08:19→17:11)
[2022-05-08] MEDS: FUROSEMIDE 40 MG TABLET PO (08:19)
[2022-05-08] MEDS: SPIRONOLACTONE 25 MG TABLET PO (08:20)
[2022-05-08] MEDS: predniSONE 20 MG TABLET 40 MG PO (08:20)
--- NOTE | 2022-05-08 08:47 | PCOTNOTE ---
Attempted to see patient this am, however patient declined due to pain in arm and (L) side of neck. Pt reported They've given me pain medicine, and they've repositioned me. I'd like to rest.
[2022-05-08] MEDS: UMECLIDINIUM BROMIDE 62.5 MCG ELLIPTA 1 PUFF INHALATION (08:48)
[2022-05-08] MEDS: FLUTICASONE/SALMETEROL 115-21 MCG INHALER 1 PUFF 2 PUFF INHALATION ×2 (08:48→21:11)
--- NOTE | 2022-05-08 11:05 | PC.NURSE ---
to ultrasound per bed with oxygen @3L
[2022-05-08] MEDS: FUROSEMIDE INJ 40 MG/4 ML VIAL 20 MG IV PUSH (11:55)
[2022-05-08] MEDS: ALBUTEROL SULFATE NEB 2.5 MG/0.5 ML INH INHALATION ×2 (14:11→21:09)
[2022-05-08] MEDS: IPRATROPIUM BR 0.02% INH SOLN 0.5 MG/2.5 ML VIAL INHALATION ×2 (14:11→21:09)
[2022-05-08] MEDS: ALPRAZolam (*CRX) 0.5 MG TABLET BY MOUTH ×2 (14:41→20:11)
[2022-05-08] MEDS: TROLAMINE SALICYLATE 10% (*BKC) 113 GM CREAM 1 APPLIC TOPICAL (20:12)
[2022-05-09] VITALS (9 sets, daily range): BP systolic 104–124; BP diastolic 47–68; PULSE 61–83; RESP 16–22; TEMP 36–36.1; O2SAT 92–99
[2022-05-09] MEDS: SALINE LOCK FLUSH 10 ML IV PUSH ×3 (05:46→20:01)
[2022-05-09] MEDS: IPRATROPIUM BR 0.02% INH SOLN 0.5 MG/2.5 ML VIAL INHALATION (07:37)
[2022-05-09] MEDS: ALBUTEROL SULFATE NEB 2.5 MG/0.5 ML INH INHALATION (07:37)
[2022-05-09] MEDS: FLUTICASONE/SALMETEROL 115-21 MCG INHALER 1 PUFF 2 PUFF INHALATION ×2 (07:38→20:23)
--- NOTE | 2022-05-09 07:47 | PM.DS ---
DS: Admitting Diagnosis Discharge Date 05/10/2022 Admitting Diagnosis gastrointestinal hemorrhage Acute blood loss anemia Acute on chronic respiratory failure COPD CKD stage 3 Epilepsy Community-acquired pneumonia bursitis DS: Discharge Diagnosis Discharge Diagnosis (1) GI bleed: Code(s): K92.2 - Gastrointestinal hemorrhage, unspecified Status: Acute Assessment and Plan: Patient admitted to the hospital and found to have hemoglobin 5.2 and positive fecal occult.? 05/02 Upper and lower endoscopy Dr. Grider deferred due to respiratory distress.? Respiratory status is improving with diuresis. 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 Continue IV Protonix b.i.d. Hold anticoagulation and antiplatelets.? Monitor stools transfuse for Hgb <7 05/06 Hgb 8.0, no stools, patient needs small bowel capsule endoscopy. Discussed with GI. Hold Eliquis until after capsule study and then will re-evaluate if it is safe to resume. Resume aspirin in 48 hours. - stable (2) Acute blood loss anemia: Code(s): D62 - Acute posthemorrhagic anemia Status: Acute Assessment and Plan: Secondary to GI bleed.? patient received 1 unit of PRBCs at [facility] and 2 units PRBC upon transfer.? Hgb 9.6 to 8.9 to 9.7 to 8.9 after transfusions. Stable >48 hours. Transfuse if hemoglobin <7 continue iron supplement x 8 weeks. (3) Acute and chronic respiratory failure, unspecified whether with hypoxia or hypercapnia: Qualifiers: Respiratory failure complication: hypoxia and hypercapnia Qualified Code(s): J96.21 - Acute and chronic respiratory failure with hypoxia; J96.22 - Acute and chronic respiratory failure with hypercapnia Code(s): J96.20 - Acute and chronic respiratory failure, unspecified whether with hypoxia or hypercapnia Status: Acute Assessment and Plan: Patient uses 2 L of oxygen at home chronically.? Patient required BiPAP for respiratory distress and was weaned to nighttime use only on 05/03. --repeat chest x-ray --Monitor vital signs, I&Os, neuro status and patient is a fall risk Follow WBC, serum electrolytes, temperature curves and cultures Send sputum cultures Obtain Pneumococcal antigen urine and legionella pneumophila Ag Ur Oxygen via NC; wean as tolerated. Keep SpO2 greater than 88% Ceftriaxone 2 gram IV q24H and Azithromycin 500mg IV q24H Continue breathing treatments P.r.n. Tylenol, Zofran, and melatonin (4) Diastolic congestive heart failure: Qualifiers: Heart failure chronicity: acute on chronic Qualified Code(s): I50.33 - Acute on chronic diastolic (congestive) heart failure Code(s): I50.30 - Unspecified diastolic (congestive) heart failure Status: Acute Assessment and Plan: acute on chronic. 01/24/2022 transthoracic echocardiogram showed normal LV systolic function, EF 55-60% and grade 1 diastolic dysfunction.? Patient had increasing shortness of breath and 2+ pitting edema to bilateral lower extremities toes to the thighs.? BNP 1579 on admission. Transition to furosemide 40 mg PO daily as patient appears to be improving. Patient is -3.3 liters from admission. Daily weights. Resume Spironolactone 05/08/22 Administered x1 furosemide 20 mg IVP (5) Chronic obstructive pulmonary disease: Qualifiers: COPD type: COPD with acute exacerbation Qualified Code(s): J44.1 - Chronic obstructive pulmonary disease with (acute) exacerbation Code(s): J44.9 - Chronic obstructive pulmonary disease, unspecified Status: Acute Assessment and Plan: Patient with wheezing noted likely secondary to CHF exacerbation and volume overload from transfusions, but may be acute exacerbation of COPD.? However patient does have COPD oxygen dependent and significant emphysema noticed on noted on chest x-ray. Transition to oral prednisone tomorrow 05/06/22 with taper Continue Incruse Ellipta and
[2022-05-09] MEDS: UMECLIDINIUM BROMIDE 62.5 MCG ELLIPTA 1 PUFF INHALATION (07:48)
[2022-05-09] MEDS: levETIRAcetam 250 MG TABLET PO ×2 (09:12→20:01)
[2022-05-09] MEDS: PANTOPRAZOLE 40 MG TABLET PO (09:12)
[2022-05-09] MEDS: predniSONE 20 MG TABLET 40 MG PO (09:12)
[2022-05-09] MEDS: SPIRONOLACTONE 25 MG TABLET PO (09:12)
[2022-05-09] MEDS: ESCITALOPRAM OXALATE 10 MG TABLET PO (09:12)
[2022-05-09] MEDS: rOPINIRole HCL 1 MG TABLET PO ×3 (09:13→17:30)
[2022-05-09] MEDS: FUROSEMIDE 40 MG TABLET PO (09:13)
[2022-05-09] MEDS: guaiFENesin 12 HR 600 MG TABCR PO ×2 (09:13→20:01)
[2022-05-09] MEDS: GABAPENTIN 300 MG CAPSULE PO ×3 (09:13→17:30)
[2022-05-09] MEDS: POTASSIUM CHLORIDE 20 MEQ TABLET.ER 40 MEQ PO (09:13)
[2022-05-09 09:51] LABS: Basophils Percent Auto 0.1 % (0.2-1.2); Eosinophils Absolute Auto 0.1 K/mm3 (0-0.3); Eosinophils Percent Auto 0.8 % (0-4.4); Hematocrit 34.5 % (37.0-47.0); Hemoglobin 9.8 g/dL (12.0-15.0); Immature Granulocyte Percent A 0.6 % (0-0.5); Lymphocytes Absolute Auto 1.14 K/mm3 (0.9-3.2); Lymphocytes Percent Auto 6.7 % (18.3-44.2); Mean Corpuscular HGB Conc 28.4 g/dl (32-36); Mean Platelet Volume 9.8 fl (7.4-10.4); Monocytes Absolute Auto 0.7 K/mm3 (0.1-0.6); Monocytes Percent Auto 4.2 % (2.6-8.5); Neutrophils Absolute Auto 14.9 K/mm3 (1.3-6.7); Neutrophils Percent Auto 87.6 % (45.5-73.1); Platelet Count Result 338 k/mm3 (150-375); Red Blood Count 3.92 M/mm3 (4.2-5.4); Red Cell Distribution Width 17.2 % (11.5-14.5)
[2022-05-09 10:02] LABS: Anion Gap 5 mmol/L (8-16); Blood Urea Nitrogen 25 mg/dL (7-17); Calcium 8.5 mg/dL (8.4-10.2); Carbon Dioxide 37 mmol/L (22-30); Chloride 98 mmol/L (98-107); Estimated CRCL calculation 51 ml/min; Estimated Glomerular Filt Rate 55; Glucose 136 mg/dL (65-110); Potassium 3.7 mmol/L (3.4-5.0); Sodium 140 mmol/L (137-145)
[2022-05-09] MEDS: ACETAMINOPHEN 500 MG TABLET PO (10:11)
[2022-05-09] MEDS: IBUPROFEN 600 MG TABLET PO (12:44)
--- NOTE | 2022-05-09 12:47 | PM.IMPN ---
Progress Note: A&P Assessment and Plan (1) GI bleed: Code(s): K92.2 - Gastrointestinal hemorrhage, unspecified Status: Acute Assessment and Plan: Patient admitted to the hospital and found to have hemoglobin 5.2 and positive fecal occult.? 05/02 Upper and lower endoscopy Dr. Grider deferred due to respiratory distress.? Respiratory status is improving with diuresis. 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 Continue IV Protonix b.i.d. Hold anticoagulation and antiplatelets.? Monitor stools transfuse for Hgb <7 05/06 Hgb 8.0, no stools, patient needs small bowel capsule endoscopy. Discussed with GI. Hold Eliquis until after capsule study and then will re-evaluate if it is safe to resume. Resume aspirin in 48 hours. - stable (2) Acute blood loss anemia: Code(s): D62 - Acute posthemorrhagic anemia Status: Acute Assessment and Plan: Secondary to GI bleed.? patient received [address] [facility] and 2 units PRBC upon transfer.? Hgb 9.6 to 8.9 to 9.7 to 8.9 after transfusions. Stable >48 hours. Transfuse if hemoglobin <7 continue iron supplement x 8 weeks. (3) Acute and chronic respiratory failure, unspecified whether with hypoxia or hypercapnia: Qualifiers: Respiratory failure complication: hypoxia and hypercapnia Qualified Code(s): J96.21 - Acute and chronic respiratory failure with hypoxia; J96.22 - Acute and chronic respiratory failure with hypercapnia Code(s): J96.20 - Acute and chronic respiratory failure, unspecified whether with hypoxia or hypercapnia Status: Acute Assessment and Plan: Patient uses 2 L of oxygen at home chronically.? Patient required BiPAP for respiratory distress and was weaned to nighttime use only on 05/03. --repeat chest x-ray --Monitor vital signs, I&Os, neuro status and patient is a fall risk Follow WBC, serum electrolytes, temperature curves and cultures Send sputum cultures Obtain Pneumococcal antigen urine and legionella pneumophila Ag Ur Oxygen via NC; wean as tolerated. Keep SpO2 greater than 88% Ceftriaxone 2 gram IV q24H and Azithromycin 500mg IV q24H Discontinued, change antibiotics to doxycycline Continue breathing treatments P.r.n. Tylenol, Zofran, and melatonin (4) Diastolic congestive heart failure: Qualifiers: Heart failure chronicity: acute on chronic Qualified Code(s): I50.33 - Acute on chronic diastolic (congestive) heart failure Code(s): I50.30 - Unspecified diastolic (congestive) heart failure Status: Acute Assessment and Plan: acute on chronic. 01/24/2022 transthoracic echocardiogram showed normal LV systolic function, EF 55-60% and grade 1 diastolic dysfunction.? Patient had increasing shortness of breath and 2+ pitting edema to bilateral lower extremities toes to the thighs.? BNP 1579 on admission. Transition to furosemide 40 mg PO daily as patient appears to be improving. Patient is -3.3 liters from admission. Daily weights. Resume Spironolactone 05/08/22 Administered x1 furosemide 20 mg IVP stable (5) Chronic obstructive pulmonary disease: Qualifiers: COPD type: COPD with acute exacerbation Qualified Code(s): J44.1 - Chronic obstructive pulmonary disease with (acute) exacerbation Code(s): J44.9 - Chronic obstructive pulmonary disease, unspecified Status: Acute Assessment and Plan: Patient with wheezing noted likely secondary to CHF exacerbation and volume overload from transfusions, but may be acute exacerbation of COPD.? However patient does have COPD oxygen dependent and significant emphysema noticed on noted on chest x-ray. Transition to oral prednisone tomorrow 05/06/22 with taper Continue Incruse Ellipta and Advair 2 puffs BID for triple therapy LAMA/LABA/ICS. Change DuoNebs q.4 hours PRN. ? Continue Xanax q.i.d. p.r.n. Patient could not tolerate bipap last night. stable (6) Chronic kidney disea
[2022-05-09 13:06] LABS: CRP 0.7 mg/dL (<1.0)
[2022-05-09 13:50] LABS: Erythrocyte Sedimentation Rate 12 mm/hr (0-20)
--- NOTE | 2022-05-09 16:41 | PM.CNOR ---
Assessment and Plan Assessment and plan (1) Olecranon bursitis of right elbow: Code(s): M70.21 - Olecranon bursitis, right elbow Status: Acute (2) Fracture of phalanx of right middle finger: Code(s): S62.602A - Fracture of unspecified phalanx of right middle finger, initial encounter for closed fracture Status: Acute (3) Right patella fracture: Code(s): S82.001A - Unspecified fracture of right patella, initial encounter for closed fracture Status: Acute Plan Olecranon bursitis. No signs of infection at this time. Bursa is soft and without erythema. I agree to continue antibiotics because she does have some redness and skin irritation and abrasions. Discussed options with patient. I recommend against draining the bursa at this time to avoid introducing infection. May consider drainage as an outpatient if pain persists. I recommend she avoid pressure at the elbow and avoid repetitive elbow motion. I recommend she ice and elevate her hand to help decrease swelling. Continue knee immobilizer until next visit in the office. Middle phalanx fracture looks stable. She has a follow up apt already scheduled at our office on 05/21/22. Will follow up for bursitis at that time. History of Present Illness HPI Consult date: 05/11/22 Chief complaint: elbow pain Narrative: Patient complains for elbow pain and swelling in her arm that started yesterday 05/08/22. Notes pain when she rests her elbow on the arm rest. Notes it feels warm and swollen. She has never had this before. Notes that a lot of IVs were attempted in that arm prior to placing a port. Skin irritation around sites of IV attempts. She does have a skin proximal to the elbow. No numbness or tingling. She is wearing her knee immobilizer from patella fracture. No pain at patella. Review of Systems Review of Systems: All systems reviewed & are unremarkable except as noted in HPI and below PMFSH Past Medical History Medical History (Updated 05/11/22 @ 10:09 by NATASHA Guzman) Cerebrovascular accident Residual right-sided weakness. Chronic kidney disease, stage 3 Chronic obstructive pulmonary disease Depression with anxiety Diastolic congestive heart failure Diastolic dysfunction Dyslipidemia Hypertension Occult blood in stools Pulmonary embolism (11/2021) Seizure disorder Small cell lung cancer Status post chemoradiotherapy. Surgical History Surgical History (Updated 05/01/22 @ 23:08 by Deidre Murillo PA-C) History of abdominal aortic aneurysm repair History of cardiac catheterization History of heart artery stent History of incisional hernia repair History of inguinal hernia repair History of left nephrectomy At age 3, done for unclear reasons. Family History Family History Sibling Family history of arthritis Father Melanoma Mother No problems noted. Social History Social History (Updated 05/01/22 @ 23:55 by Deidre Murillo PA-C) Social History: [id number]: Isabela. Code status: Full code. Smoking packs per day: 1 Smoking cigarettes per day: 20.0 Years smoked: 20 Smoking pack-years: 20.00 Smoking status: Former smoker Tobacco type: cigarettes Second hand tobacco smoke exposure: No Smoking end date: 09/14/05 Alcohol intake: former Alcohol use details: No alcohol since 2005. Substance use: never Substance use type: does not use Additional living arrangements comments: Lives in assisted living. Wheelchair-bound due to right-sided deficits from prior CVA. Spiritual care concerns: No Meds Home Medications and Allergies Home Medications Medication Instructions Recorded Confirmed Type acetaminophen 500 mg capsule 500 mg PO Q6H PRN Pain 11/24/19 05/10/22 History aspirin 81 mg tablet,delayed 81 mg PO DAILY 11/24/19 05/10/22 History release (Adult Aspirin Regimen) atorvastatin 40 mg tablet 40 mg PO DA
[2022-05-09] MEDS: DOXYCYCLINE HYCLATE 100 MG TABLET PO (20:01)
[2022-05-09] MEDS: SULFAMETHOXAZOLE/TRIMETHOPRIM 800/160 MG DS TABLET 1 TAB PO (20:01)
[2022-05-09] MEDS: ALPRAZolam (*CRX) 0.5 MG TABLET BY MOUTH (20:03)
[2022-05-10] VITALS (8 sets, daily range): BP systolic 119–132; BP diastolic 62–74; PULSE 52–93; RESP 16–24; TEMP 35.5–36.6; O2SAT 97–100
[2022-05-10 00:07] LABS: Pneumococcal Antigen Urine Not Detected (Not Detected)
[2022-05-10] MEDS: SALINE LOCK FLUSH 10 ML IV PUSH ×2 (06:02→13:47)
[2022-05-10 06:13] LABS: Hematocrit 32.2 % (37.0-47.0); Hemoglobin 9.3 g/dL (12.0-15.0); Mean Corpuscular HGB Conc 28.9 g/dl (32-36); Mean Corpuscular Hemoglobin 25.1 pg (26-34); Mean Corpuscular Volume 86.8 fl (80-100); Mean Platelet Volume 9.9 fl (7.4-10.4); Platelet Count Result 332 k/mm3 (150-375); Red Blood Count 3.71 M/mm3 (4.2-5.4); Red Cell Distribution Width 17.3 % (11.5-14.5); White Blood Count 11.6 K/mm3 (4.5-10.0)
[2022-05-10 06:26] LABS: Anion Gap 5 mmol/L (8-16); Blood Urea Nitrogen 25 mg/dL (7-17); Calcium 8.8 mg/dL (8.4-10.2); Carbon Dioxide 33 mmol/L (22-30); Chloride 98 mmol/L (98-107); Estimated CRCL calculation 51 ml/min; Estimated Glomerular Filt Rate 55; Glucose 84 mg/dL (65-110); Potassium 3.9 mmol/L (3.4-5.0); Sodium 136 mmol/L (137-145)
[2022-05-10] MEDS: FLUTICASONE/SALMETEROL 115-21 MCG INHALER 1 PUFF 2 PUFF INHALATION (07:44)
[2022-05-10] MEDS: UMECLIDINIUM BROMIDE 62.5 MCG ELLIPTA 1 PUFF INHALATION (07:44)
[2022-05-10] MEDS: GABAPENTIN 300 MG CAPSULE PO ×3 (08:45→17:05)
[2022-05-10] MEDS: predniSONE 20 MG TABLET 40 MG PO (08:45)
[2022-05-10] MEDS: FUROSEMIDE 40 MG TABLET PO (08:45)
[2022-05-10] MEDS: DOXYCYCLINE HYCLATE 100 MG TABLET PO (08:45)
[2022-05-10] MEDS: ESCITALOPRAM OXALATE 10 MG TABLET PO (08:45)
[2022-05-10] MEDS: levETIRAcetam 250 MG TABLET PO (08:46)
[2022-05-10] MEDS: POTASSIUM CHLORIDE 20 MEQ TABLET.ER 40 MEQ PO (08:46)
[2022-05-10] MEDS: guaiFENesin 12 HR 600 MG TABCR PO (08:46)
[2022-05-10] MEDS: SULFAMETHOXAZOLE/TRIMETHOPRIM 800/160 MG DS TABLET 1 TAB PO (08:46)
[2022-05-10] MEDS: PANTOPRAZOLE 40 MG TABLET PO (08:46)
[2022-05-10] MEDS: SPIRONOLACTONE 25 MG TABLET PO (08:46)
[2022-05-10] MEDS: rOPINIRole HCL 1 MG TABLET PO ×3 (08:46→17:05)
[2022-05-10 14:19] LABS: EDCOVIDSCREEN Negative (Negative)
[2022-05-10] MEDS: ALPRAZolam (*CRX) 0.5 MG TABLET BY MOUTH (17:08)
[2022-05-10] MEDS: IPRATROPIUM BR 0.02% INH SOLN 0.5 MG/2.5 ML VIAL INHALATION (17:13)
[2022-05-10] MEDS: ALBUTEROL SULFATE NEB 2.5 MG/0.5 ML INH INHALATION (17:13)
[2022-05-11 21:45] LABS: Legionella pneumophila Ag Ur Not Detected (Not Detected)
== END 2022-05-10 18:25 | disposition swing bed (61) | DRG 377 ==
LOC: ANH2MED 05-02 10:14 → ANHIMU 05-02 12:48 → ANH3MEDSUR 05-03 19:08
PROVIDERS: Internal Medicine; Internal Medicine Gastroenterology; Nurse Practitioner Family; Physician Assistant; Admitting Provider Family Medicine; PCP Internal Medicine; Visit Provider Nurse Practitioner Family
PROC: 0DJ08ZZ Inspection of Upper Intestinal Tract, Via Natural or Artificial Opening Endoscopic (ICD-10-PCS; CPT 43235; principal; 2022-05-05 14:30)
DX: K31.811 Angiodysplasia of stomach and duodenum with bleeding (principal); I50.33 Acute on chronic diastolic (congestive) heart failure; J18.9 Pneumonia, unspecified organism; J96.22 Acute and chronic respiratory failure with hypercapnia; J96.21 Acute and chronic respiratory failure with hypoxia; D62 Acute posthemorrhagic anemia; I13.0 Hypertensive heart and chronic kidney disease with heart failure and stage 1 through stage 4 chronic kidney disease, or unspecified chronic kidney disease; K57.31 Diverticulosis of large intestine without perforation or abscess with bleeding; K44.9 Diaphragmatic hernia without obstruction or gangrene; K64.8 Other hemorrhoids; K63.5 Polyp of colon; J43.9 Emphysema, unspecified; N18.30 Chronic kidney disease, stage 3 unspecified; G40.909 Epilepsy, unspecified, not intractable, without status epilepticus; I25.10 Atherosclerotic heart disease of native coronary artery without angina pectoris; E78.5 Hyperlipidemia, unspecified; M70.21 Olecranon bursitis, right elbow; F41.8 Other specified anxiety disorders; S82.034D Nondisplaced transverse fracture of right patella, subsequent encounter for closed fracture with routine healing; S62.602D Fracture of unspecified phalanx of right middle finger, subsequent encounter for fracture with routine healing; D50.9 Iron deficiency anemia, unspecified; E66.9 Obesity, unspecified; Z68.34 Body mass index [BMI] 34.0-34.9, adult; S50.811A Abrasion of right forearm, initial encounter; Y84.8 Other medical procedures as the cause of abnormal reaction of the patient, or of later complication, without mention of misadventure at the time of the procedure; Y82.8 Other medical devices associated with adverse incidents; Z20.822 Contact with and (suspected) exposure to COVID-19; Z87.891 Personal history of nicotine dependence; Z79.82 Long term (current) use of aspirin; Z95.5 Presence of coronary angioplasty implant and graft; Z90.5 Acquired absence of kidney; Z85.118 Personal history of other malignant neoplasm of bronchus and lung; Z99.81 Dependence on supplemental oxygen; Z86.711 Personal history of pulmonary embolism; Z79.01 Long term (current) use of anticoagulants; Z92.21 Personal history of antineoplastic chemotherapy; Z92.3 Personal history of irradiation; Z99.3 Dependence on wheelchair; W05.0XXD Fall from non-moving wheelchair, subsequent encounter
CPT/HCPCS: 36415; 36430; 36569; 36600; 71045; 73070; 80048; 80053; 82805; 83735; 85014; 85018; 85025; 85027; 85610; 85652; 86140; 86850; 86900; 86901; 86920; 87426; 87449; 87899; 88305; 93971; 94002; 94003; 94640; 94667; 94668; 96374; 96375; 96376; 97161; 97166; 97530; 97535; A9270; C1751; C9113; C9803; G0378; G0379; J0456; J0696; J1940; J2704; J2920; J2930; J2997; J7050; J7120; J7512; P9016

== ENCOUNTER 2022-05-10 18:53 | Inpatient (IN) | payer MEDICARE, MEDICAID, SELFPAY ==
--- NOTE | ~2022-05-10 | XR_ITS ---
EXAMINATION: XR chest 1V portable DATE: 05/19/2022 07:50 INDICATION: Chronic shortness of breath. Cough. TECHNIQUE: A single frontal view of the chest was obtained. COMPARISON: Chest single view 05/07/2022, CT abdomen and pelvis 04/03/2022 FINDINGS: There are lucencies in the lungs, consistent with emphysema. There are airspace and interst itial opacities in the lower lung zones. No pleural effusion or pneumothorax. The heart size is jorge l. IMPRESSION: 1. Stable airspace and interstitial opacities in the lower lung zones, consistent with atelectasis/sc arring versus pneumonia. 2. Emphysema. Reviewed, dictated and finalized at location A. IMPRESSION: 1. Stable airspace and interstitial opacities in the lower lung zones, consiste nt with atelectasis/scarring versus pneumonia. 2. Emphysema.
[2022-05-10 19:58] VITALS: BMI 30.1
[2022-05-10 20:00] VITALS: PULSE 80; O2SAT 94
--- NOTE | 2022-05-10 20:25 | ADMGEN ---
This patient, Teresa Levi, was admitted to 2nd Floor Room 205-2. Patient oriented to hospital policies and general routines including ID bracelet, bed and alarms, visiting hours, pain management, procedures, bathroom and other care routines, personal items, smoking policy, room service/diet, and visiting hours. Information on how to activate the Rapid Response Team has been discussed. Patient are encouraged to report perceived risks to care and to ask questions if they do not understand what they are told or what they should do.
[2022-05-10 20:55] VITALS: O2SAT 94
[2022-05-10] MEDS: MELATONIN 5 MG TABLET PO (21:52)
[2022-05-10] MEDS: levETIRAcetam 250 MG TABLET PO (21:52)
[2022-05-10] MEDS: DOXYCYCLINE HYCLATE 100 MG TABLET PO (21:52)
[2022-05-10 23:20] VITALS: BP 138/59; PULSE 78; RESP 15; TEMP 36.4; O2SAT 96
[2022-05-11 05:36] VITALS: O2SAT 95
[2022-05-11 08:00] VITALS: BP 125/70; PULSE 80; PULSE 83; RESP 14; RESP 16; TEMP 36.4; O2SAT 96; O2SAT 97
[2022-05-11] MEDS: DOXYCYCLINE HYCLATE 100 MG TABLET PO ×2 (08:54→20:18)
[2022-05-11] MEDS: UMECLIDINIUM BROMIDE 62.5 MCG ELLIPTA 1 PUFF INHALATION (08:54)
[2022-05-11] MEDS: GABAPENTIN 300 MG CAPSULE PO ×3 (08:54→16:11)
[2022-05-11] MEDS: ESCITALOPRAM OXALATE 10 MG TABLET PO (08:54)
[2022-05-11] MEDS: PANTOPRAZOLE 40 MG TABLET PO (08:54)
[2022-05-11] MEDS: MULTIVITAMINS THERAPEUTIC TAB (*BKC) 1 TABLET PO (08:55)
[2022-05-11] MEDS: ATORVASTATIN 40 MG TABLET PO (08:55)
[2022-05-11] MEDS: ASPIRIN 81 MG ENTERIC TABLET PO (08:55)
[2022-05-11] MEDS: rOPINIRole HCL 1 MG TABLET PO ×3 (08:55→16:11)
[2022-05-11] MEDS: POTASSIUM CHLORIDE 20 MEQ TABLET PO (08:55)
[2022-05-11] MEDS: FUROSEMIDE 40 MG TABLET PO (08:55)
[2022-05-11] MEDS: levETIRAcetam 250 MG TABLET PO ×2 (08:56→20:17)
--- NOTE | 2022-05-11 09:09 | PM.IMHP ---
H&P: HPI History of Present Illness Date/Time: 05/11/22 09:09 Chief Complaint: Rehab weakness Narrative: 71-year-old female with history of pulmonary embolism diagnosed in January 2022 on apixaban, chronic respiratory failure on 2 L nasal cannula, chronic obstructive pulmonary disease, stroke, seizure disorder, coronary artery disease, osteoporosis and hypertension. Patient presented to the emergency department with a hemoglobin of 5.2 and occult blood positive. EGD completed on patient while hospitalized with consult from GI. It appears that patient also required BiPAP at bedtime. according to hospitalist Dilia Yepez NP patient refused BiPAP as inpatient ,does not indicate that on respiratory therapist notes. Patient will come to our hospital without the use of BiPAP. According to hospitalist patient will need a sleep study as outpatient. Patient is currently using 2 L nasal cannula which is chronic for her she does not appear to be in any respiratory distress Patient was also diagnosed with pneumonia she is currently taking doxycycline and Bactrim for treatment. Patient was also diagnosed with bursitis we will continue treatment plan. She will need to follow orthopedic as outpatient. Patient admitted in swing bed for rehabilitation due to decreased balance decreased mobility in severe limited function endurant and/or mobility. The patient denies SOB, CP, palpitation, extremity numbness, lightheadedness, dizziness, constipation, diarrhea, chills, or fever. Review of Systems Review of Systems: A 14 organ system Review of Systems was performed and pertinent positives included in the HPI, otherwise remaining ROS is negative. [facility] Past Medical History Medical History (Updated 05/11/22 @ 10:09 by NATASHA Guzman) Cerebrovascular accident Residual right-sided weakness. Chronic kidney disease, stage 3 Chronic obstructive pulmonary disease Depression with anxiety Diastolic congestive heart failure Diastolic dysfunction Dyslipidemia Hypertension Occult blood in stools Pulmonary embolism (11/2021) Seizure disorder Small cell lung cancer Status post chemoradiotherapy. Surgical History Surgical History (Updated 05/01/22 @ 23:08 by Deidre Murillo PA-C) History of abdominal aortic aneurysm repair History of cardiac catheterization History of heart artery stent History of incisional hernia repair History of inguinal hernia repair History of left nephrectomy At age 3, done for unclear reasons. Family History Family History Sibling Family history of arthritis Father Melanoma Mother No problems noted. Social History Social History (Updated 05/01/22 @ 23:55 by Deidre Murillo PA-C) Social History: [id number]: Isabela. Code status: Full code. Smoking packs per day: 1 Smoking cigarettes per day: 20.0 Years smoked: 20 Smoking pack-years: 20.00 Smoking status: Former smoker Tobacco type: cigarettes Second hand tobacco smoke exposure: No Smoking end date: 09/14/05 Alcohol intake: former Alcohol use details: No alcohol since 2005. Substance use: never Substance use type: does not use Additional living arrangements comments: Lives in assisted living. Wheelchair-bound due to right-sided deficits from prior CVA. Spiritual care concerns: No Meds Home Medications and Allergies Home Medications Medication Instructions Recorded Confirmed Type acetaminophen 500 mg capsule 500 mg PO Q6H PRN Pain 11/24/19 05/10/22 History aspirin 81 mg tablet,delayed 81 mg PO DAILY 11/24/19 05/10/22 History release (Adult Aspirin Regimen) atorvastatin 40 mg tablet 40 mg PO DAILY 11/24/19 05/10/22 History escitalopram oxalate 20 mg tablet 10 mg PO DAILY 11/24/19 05/10/22 History levetiracetam 250 mg tablet 250 mg PO Q12H 11/24/19 05/10/22 History melatonin 5 mg capsule 5 mg PO HS 11/24/19 05/10/22 History potassium chlo
[2022-05-11] MEDS: SALMET XINAFT/FLUTIC PROPIN 100 MCG/50 MCG INH CAP 1 PUFF INHALATION ×2 (11:00→16:12)
[2022-05-11 16:20] VITALS: BP 116/52; PULSE 77; RESP 18; TEMP 36.4; O2SAT 94
[2022-05-11 20:00] VITALS: O2SAT 94
[2022-05-11] MEDS: MELATONIN 5 MG TABLET PO (20:18)
[2022-05-11] MEDS: SULFAMETHOXAZOLE/TRIMETHOPRIM 800/160 MG DS TABLET 1 TAB PO (20:18)
[2022-05-11] MEDS: traMADol HCL (*CRX) 25 MG TABLET PO (20:22)
[2022-05-11 23:16] VITALS: BP 100/56; PULSE 73; RESP 17; TEMP 36.7; O2SAT 95
[2022-05-12 05:39] VITALS: O2SAT 100
[2022-05-12] MEDS: SALMET XINAFT/FLUTIC PROPIN 100 MCG/50 MCG INH CAP 1 PUFF INHALATION ×2 (06:21→18:03)
--- NOTE | 2022-05-12 06:27 | PC.NURSE ---
Pt educated on proper technique on using the Advair Diskus and rinsing the mouth out after use to prevent thrush.
[2022-05-12 07:51] VITALS: BP 111/50; PULSE 66; RESP 14; TEMP 36.2; O2SAT 94
[2022-05-12 08:00] VITALS: PULSE 66; RESP 14; O2SAT 94
[2022-05-12] MEDS: UMECLIDINIUM BROMIDE 62.5 MCG ELLIPTA 1 PUFF INHALATION (08:52)
[2022-05-12] MEDS: levETIRAcetam 250 MG TABLET PO ×2 (08:53→20:28)
[2022-05-12] MEDS: GABAPENTIN 300 MG CAPSULE PO ×3 (08:53→16:28)
[2022-05-12] MEDS: predniSONE 20 MG TABLET 40 MG PO (08:54)
[2022-05-12] MEDS: MULTIVITAMINS THERAPEUTIC TAB (*BKC) 1 TABLET PO (08:54)
[2022-05-12] MEDS: ATORVASTATIN 40 MG TABLET PO (08:54)
[2022-05-12] MEDS: FUROSEMIDE 40 MG TABLET PO (08:54)
[2022-05-12] MEDS: PANTOPRAZOLE 40 MG TABLET PO (08:55)
[2022-05-12] MEDS: POTASSIUM CHLORIDE 20 MEQ TABLET PO (08:55)
[2022-05-12] MEDS: ESCITALOPRAM OXALATE 10 MG TABLET PO (08:55)
[2022-05-12] MEDS: SULFAMETHOXAZOLE/TRIMETHOPRIM 800/160 MG DS TABLET 1 TAB PO ×2 (08:55→20:28)
[2022-05-12] MEDS: ASPIRIN 81 MG ENTERIC TABLET PO (08:55)
[2022-05-12] MEDS: DOXYCYCLINE HYCLATE 100 MG TABLET PO ×2 (09:00→20:28)
[2022-05-12] MEDS: rOPINIRole HCL 1 MG TABLET PO ×3 (09:05→16:28)
[2022-05-12] MEDS: traMADol HCL (*CRX) 25 MG TABLET PO (09:07)
[2022-05-12] MEDS: ACETAMINOPHEN 500 MG TABLET 1000 MG PO (13:06)
[2022-05-12] MEDS: ALPRAZolam (*CRX) 0.5 MG TABLET PO (13:07)
[2022-05-12 15:38] VITALS: BP 107/46; PULSE 68; RESP 20; TEMP 36.1; O2SAT 95
[2022-05-12] MEDS: traZODone HCL 50 MG TABLET PO (20:28)
[2022-05-12] MEDS: MELATONIN 5 MG TABLET PO (20:28)
[2022-05-13] VITALS: BP 105/44; PULSE 54; RESP 16; TEMP 36.6; O2SAT 100
[2022-05-13 05:42] VITALS: O2SAT 97
[2022-05-13] MEDS: SALMET XINAFT/FLUTIC PROPIN 100 MCG/50 MCG INH CAP 1 PUFF INHALATION ×2 (06:32→17:44)
[2022-05-13 07:35] VITALS: BP 104/50; PULSE 62; RESP 18; TEMP 36.3; O2SAT 94
[2022-05-13] MEDS: UMECLIDINIUM BROMIDE 62.5 MCG ELLIPTA 1 PUFF INHALATION (08:15)
[2022-05-13] MEDS: levETIRAcetam 250 MG TABLET PO ×2 (08:16→20:38)
[2022-05-13] MEDS: ASPIRIN 81 MG ENTERIC TABLET PO (08:17)
[2022-05-13] MEDS: ESCITALOPRAM OXALATE 10 MG TABLET PO (08:17)
[2022-05-13] MEDS: GABAPENTIN 300 MG CAPSULE PO ×3 (08:17→17:44)
[2022-05-13] MEDS: POTASSIUM CHLORIDE 20 MEQ TABLET PO (08:17)
[2022-05-13] MEDS: FUROSEMIDE 40 MG TABLET PO (08:17)
[2022-05-13] MEDS: MULTIVITAMINS THERAPEUTIC TAB (*BKC) 1 TABLET PO (08:17)
[2022-05-13] MEDS: PANTOPRAZOLE 40 MG TABLET PO (08:18)
[2022-05-13] MEDS: ATORVASTATIN 40 MG TABLET PO (08:18)
[2022-05-13] MEDS: rOPINIRole HCL 1 MG TABLET PO ×3 (08:18→17:44)
[2022-05-13] MEDS: predniSONE 20 MG TABLET 40 MG PO (08:18)
[2022-05-13] MEDS: DOXYCYCLINE HYCLATE 100 MG TABLET PO ×2 (08:19→20:37)
[2022-05-13] MEDS: SULFAMETHOXAZOLE/TRIMETHOPRIM 800/160 MG DS TABLET 1 TAB PO ×2 (08:19→20:37)
[2022-05-13 16:00] VITALS: BP 106/52; PULSE 64; RESP 18; TEMP 36.2; O2SAT 95
[2022-05-13] MEDS: traZODone HCL 50 MG TABLET PO (20:37)
[2022-05-13] MEDS: MELATONIN 5 MG TABLET PO (20:38)
[2022-05-14] VITALS: BP 106/63; PULSE 68; RESP 16; TEMP 36.5; O2SAT 97
[2022-05-14 05:40] VITALS: O2SAT 93
[2022-05-14] MEDS: SALMET XINAFT/FLUTIC PROPIN 100 MCG/50 MCG INH CAP 1 PUFF INHALATION ×2 (06:30→19:01)
[2022-05-14 08:00] VITALS: BP 109/42; PULSE 70; RESP 16; TEMP 36.2; O2SAT 93
[2022-05-14] MEDS: predniSONE 20 MG TABLET 40 MG PO (08:57)
[2022-05-14] MEDS: ASPIRIN 81 MG ENTERIC TABLET PO (08:57)
[2022-05-14] MEDS: levETIRAcetam 250 MG TABLET PO ×2 (08:57→21:25)
[2022-05-14] MEDS: MULTIVITAMINS THERAPEUTIC TAB (*BKC) 1 TABLET PO (08:58)
[2022-05-14] MEDS: FUROSEMIDE 40 MG TABLET PO (08:58)
[2022-05-14] MEDS: ATORVASTATIN 40 MG TABLET PO (08:58)
[2022-05-14] MEDS: rOPINIRole HCL 1 MG TABLET PO ×3 (08:58→17:29)
[2022-05-14] MEDS: PANTOPRAZOLE 40 MG TABLET PO (08:58)
[2022-05-14] MEDS: SULFAMETHOXAZOLE/TRIMETHOPRIM 800/160 MG DS TABLET 1 TAB PO ×2 (08:58→20:16)
[2022-05-14] MEDS: GABAPENTIN 300 MG CAPSULE PO ×3 (08:59→17:29)
[2022-05-14] MEDS: DOXYCYCLINE HYCLATE 100 MG TABLET PO ×2 (08:59→20:16)
[2022-05-14] MEDS: ESCITALOPRAM OXALATE 10 MG TABLET PO (08:59)
[2022-05-14] MEDS: UMECLIDINIUM BROMIDE 62.5 MCG ELLIPTA 1 PUFF INHALATION (09:00)
[2022-05-14] MEDS: POTASSIUM CHLORIDE 20 MEQ TABLET PO (09:00)
[2022-05-14] MEDS: polyethylene glycoL 3350 17 GM POWD.PACK PO (10:00)
[2022-05-14 15:36] VITALS: BP 102/54; PULSE 78; RESP 18; TEMP 36.6; O2SAT 94
[2022-05-14] MEDS: MELATONIN 5 MG TABLET PO (20:16)
[2022-05-14] MEDS: traZODone HCL 50 MG TABLET PO (21:25)
[2022-05-14] MEDS: ACETAMINOPHEN 500 MG TABLET 1000 MG PO (21:26)
--- NOTE | 2022-05-14 22:57 | PC.NURSE ---
Rounding note charted at 2253 in error, charted on incorrect patient.
[2022-05-14 23:40] VITALS: BP 108/41; PULSE 88; RESP 18; TEMP 36.4; O2SAT 93
[2022-05-15 05:24] VITALS: O2SAT 93
[2022-05-15] MEDS: SALMET XINAFT/FLUTIC PROPIN 100 MCG/50 MCG INH CAP 1 PUFF INHALATION ×2 (06:04→16:46)
[2022-05-15 08:00] VITALS: BP 100/49; PULSE 69; RESP 16; TEMP 36.4; O2SAT 91; O2SAT 92
[2022-05-15] MEDS: predniSONE 20 MG TABLET 40 MG PO (08:15)
[2022-05-15] MEDS: rOPINIRole HCL 1 MG TABLET PO ×3 (09:06→16:46)
[2022-05-15] MEDS: MULTIVITAMINS THERAPEUTIC TAB (*BKC) 1 TABLET PO (09:06)
[2022-05-15] MEDS: PANTOPRAZOLE 40 MG TABLET PO (09:06)
[2022-05-15] MEDS: POTASSIUM CHLORIDE 20 MEQ TABLET PO (09:06)
[2022-05-15] MEDS: GABAPENTIN 300 MG CAPSULE PO ×3 (09:07→16:46)
[2022-05-15] MEDS: SULFAMETHOXAZOLE/TRIMETHOPRIM 800/160 MG DS TABLET 1 TAB PO ×2 (09:07→20:04)
[2022-05-15] MEDS: ATORVASTATIN 40 MG TABLET PO (09:07)
[2022-05-15] MEDS: DOXYCYCLINE HYCLATE 100 MG TABLET PO ×2 (09:08→20:04)
[2022-05-15] MEDS: FUROSEMIDE 40 MG TABLET PO (09:08)
[2022-05-15] MEDS: ESCITALOPRAM OXALATE 10 MG TABLET PO (09:08)
[2022-05-15] MEDS: ASPIRIN 81 MG ENTERIC TABLET PO (09:08)
[2022-05-15] MEDS: levETIRAcetam 250 MG TABLET PO ×2 (09:25→20:04)
[2022-05-15] MEDS: UMECLIDINIUM BROMIDE 62.5 MCG ELLIPTA 1 PUFF INHALATION (09:36)
[2022-05-15 16:40] VITALS: BP 112/49; PULSE 75; RESP 75; TEMP 36.2; O2SAT 93
[2022-05-15 19:34] VITALS: PULSE 75; RESP 16; O2SAT 93
[2022-05-15] MEDS: MELATONIN 5 MG TABLET PO (20:04)
[2022-05-15] MEDS: ACETAMINOPHEN 500 MG TABLET 1000 MG PO (20:04)
[2022-05-15 23:57] VITALS: BP 111/58; PULSE 81; RESP 17; TEMP 36.6; O2SAT 93
[2022-05-16] MEDS: SALMET XINAFT/FLUTIC PROPIN 100 MCG/50 MCG INH CAP 1 PUFF INHALATION ×2 (05:39→16:37)
[2022-05-16 06:30] VITALS: O2SAT 96
[2022-05-16 08:00] VITALS: BP 115/60; PULSE 80; RESP 16; TEMP 36.6; O2SAT 93; O2SAT 94
[2022-05-16] MEDS: predniSONE 20 MG TABLET 40 MG PO (08:15)
[2022-05-16] MEDS: POTASSIUM CHLORIDE 20 MEQ TABLET PO (09:20)
[2022-05-16] MEDS: levETIRAcetam 250 MG TABLET PO ×2 (09:54→21:24)
[2022-05-16] MEDS: PANTOPRAZOLE 40 MG TABLET PO (09:55)
[2022-05-16] MEDS: MULTIVITAMINS THERAPEUTIC TAB (*BKC) 1 TABLET PO (09:55)
[2022-05-16] MEDS: GABAPENTIN 300 MG CAPSULE PO ×3 (09:55→16:37)
[2022-05-16] MEDS: rOPINIRole HCL 1 MG TABLET PO ×3 (09:55→16:37)
[2022-05-16] MEDS: ATORVASTATIN 40 MG TABLET PO (09:56)
[2022-05-16] MEDS: SULFAMETHOXAZOLE/TRIMETHOPRIM 800/160 MG DS TABLET 1 TAB PO ×2 (09:56→21:20)
[2022-05-16] MEDS: DOXYCYCLINE HYCLATE 100 MG TABLET PO (09:56)
[2022-05-16] MEDS: FUROSEMIDE 40 MG TABLET PO (09:57)
[2022-05-16] MEDS: ESCITALOPRAM OXALATE 10 MG TABLET PO (09:57)
[2022-05-16] MEDS: ASPIRIN 81 MG ENTERIC TABLET PO (09:59)
[2022-05-16] MEDS: UMECLIDINIUM BROMIDE 62.5 MCG ELLIPTA 1 PUFF INHALATION (09:59)
--- NOTE | 2022-05-16 14:02 | PC.NURSE ---
Pt left heel is red and non blanchable but firm. Left heel off the bed and elevated when up. Right heel is red but does jas. It is also elevated when in bed or up. Pt denies any pain in either heel.
[2022-05-16 16:35] VITALS: BP 110/54; PULSE 70; RESP 18; TEMP 36.3; O2SAT 96
[2022-05-16 19:49] VITALS: O2SAT 94
[2022-05-16] MEDS: MELATONIN 5 MG TABLET PO (21:21)
[2022-05-16] MEDS: traZODone HCL 50 MG TABLET PO (21:21)
[2022-05-17] VITALS: BP 128/57; PULSE 70; RESP 20; TEMP 35.9; O2SAT 96
[2022-05-17 05:45] VITALS: O2SAT 99
[2022-05-17] MEDS: SALMET XINAFT/FLUTIC PROPIN 100 MCG/50 MCG INH CAP 1 PUFF INHALATION ×2 (06:32→18:44)
[2022-05-17 08:00] VITALS: BP 135/76; PULSE 86; RESP 16; TEMP 36.5; O2SAT 97
[2022-05-17] MEDS: ASPIRIN 81 MG ENTERIC TABLET PO (08:53)
[2022-05-17] MEDS: POTASSIUM CHLORIDE 20 MEQ TABLET PO (08:53)
[2022-05-17] MEDS: PANTOPRAZOLE 40 MG TABLET PO (08:54)
[2022-05-17] MEDS: MULTIVITAMINS THERAPEUTIC TAB (*BKC) 1 TABLET PO (08:54)
[2022-05-17] MEDS: ESCITALOPRAM OXALATE 10 MG TABLET PO (08:54)
[2022-05-17] MEDS: predniSONE 20 MG TABLET 40 MG PO (08:54)
[2022-05-17] MEDS: SULFAMETHOXAZOLE/TRIMETHOPRIM 800/160 MG DS TABLET 1 TAB PO ×2 (08:54→21:30)
[2022-05-17] MEDS: GABAPENTIN 300 MG CAPSULE PO ×3 (08:55→16:34)
[2022-05-17] MEDS: ATORVASTATIN 40 MG TABLET PO (08:55)
[2022-05-17] MEDS: rOPINIRole HCL 1 MG TABLET PO ×3 (08:55→16:34)
[2022-05-17] MEDS: FUROSEMIDE 40 MG TABLET PO (08:55)
[2022-05-17] MEDS: levETIRAcetam 250 MG TABLET PO ×2 (08:56→21:30)
[2022-05-17] MEDS: UMECLIDINIUM BROMIDE 62.5 MCG ELLIPTA 1 PUFF INHALATION (08:57)
[2022-05-17] MEDS: polyethylene glycoL 3350 17 GM POWD.PACK PO (08:57)
[2022-05-17 15:43] VITALS: BP 135/56; PULSE 98; TEMP 36.6; O2SAT 93
[2022-05-17] MEDS: traZODone HCL 50 MG TABLET PO (21:31)
[2022-05-17] MEDS: MELATONIN 5 MG TABLET PO (21:31)
[2022-05-18] VITALS (8 sets, daily range): BP systolic 100–127; BP diastolic 49–62; PULSE 59–85; RESP 14–20; TEMP 36.4–36.6; O2SAT 94–99
[2022-05-18] MEDS: SALMET XINAFT/FLUTIC PROPIN 100 MCG/50 MCG INH CAP 1 PUFF INHALATION ×2 (06:31→18:36)
[2022-05-18] MEDS: BENZOCAINE/MENTHOL (*BKC) LOZENGE 1 LOZENGE PO ×2 (07:14→21:33)
[2022-05-18] MEDS: rOPINIRole HCL 1 MG TABLET PO ×3 (08:04→16:55)
[2022-05-18] MEDS: MULTIVITAMINS THERAPEUTIC TAB (*BKC) 1 TABLET PO (08:04)
[2022-05-18] MEDS: GABAPENTIN 300 MG CAPSULE PO ×3 (08:04→16:55)
[2022-05-18] MEDS: ATORVASTATIN 40 MG TABLET PO (08:04)
[2022-05-18] MEDS: SULFAMETHOXAZOLE/TRIMETHOPRIM 800/160 MG DS TABLET 1 TAB PO ×2 (08:04→21:33)
[2022-05-18] MEDS: ESCITALOPRAM OXALATE 10 MG TABLET PO (08:04)
[2022-05-18] MEDS: predniSONE 20 MG TABLET 40 MG PO (08:05)
[2022-05-18] MEDS: POTASSIUM CHLORIDE 20 MEQ TABLET PO (08:05)
[2022-05-18] MEDS: FUROSEMIDE 40 MG TABLET PO (08:05)
[2022-05-18] MEDS: ASPIRIN 81 MG ENTERIC TABLET PO (08:06)
[2022-05-18] MEDS: levETIRAcetam 250 MG TABLET PO ×2 (08:06→21:33)
[2022-05-18] MEDS: PANTOPRAZOLE 40 MG TABLET PO (08:06)
[2022-05-18] MEDS: UMECLIDINIUM BROMIDE 62.5 MCG ELLIPTA 1 PUFF INHALATION (08:07)
[2022-05-18] MEDS: polyethylene glycoL 3350 17 GM POWD.PACK PO (08:07)
[2022-05-18] MEDS: IPRATROPIUM 0.5 MG/ALBUTEROL SULFATE 2.5 MG AMPUL.NEB 3 ML INHALATION ×2 (12:34→18:12)
[2022-05-18] MEDS: traZODone HCL 50 MG TABLET PO (21:33)
[2022-05-18] MEDS: MELATONIN 5 MG TABLET PO (21:33)
[2022-05-19] VITALS (12 sets, daily range): BP systolic 95–115; BP diastolic 41–59; PULSE 69–95; RESP 12–20; TEMP 36.1–36.6; O2SAT 95–99
[2022-05-19] MEDS: IPRATROPIUM 0.5 MG/ALBUTEROL SULFATE 2.5 MG AMPUL.NEB 3 ML INHALATION ×3 (00:17→12:33)
[2022-05-19 05:27] LABS: Hematocrit 29.7 % (35.0-42.0); Hemoglobin 8.7 g/dL (11.7-13.8); Mean Corpuscular HGB Conc 29.3 g/dL (32.0-36.0); Mean Corpuscular Hemoglobin 24.6 pg (27.0-31.0); Mean Corpuscular Volume 84.1 fL (78.0-102.0); Mean Platelet Volume 10.8 fl (9.2-11.8); Platelet Count Result 310 K/mm3 (150-420); Red Blood Count 3.53 M/mm3 (4.20-5.40); White Blood Count 10.8 K/mm3 (4.8-10.8)
[2022-05-19 05:50] LABS: Anion Gap 4 mmol/L (8-16); Blood Urea Nitrogen 27 mg/dL (7-18); Calcium 8.6 mg/dL (8.5-10.1); Carbon Dioxide 32 mmol/L (21-32); Chloride 103 mmol/L (98-108); Estimated CRCL calculation 37 ml/min; Estimated Glomerular Filt Rate 40; Glucose 74 mg/dL (70-99); NT Pro B Type Natriuretic Pept 955 pg/mL (0-125); Osmolality Calculated 292 mOsm/kg (285-295); Sodium 139 mmol/L (136-145)
[2022-05-19] MEDS: SALMET XINAFT/FLUTIC PROPIN 100 MCG/50 MCG INH CAP 1 PUFF INHALATION ×2 (07:05→18:17)
[2022-05-19] MEDS: POTASSIUM CHLORIDE 20 MEQ TABLET PO (08:39)
[2022-05-19] MEDS: BENZOCAINE/MENTHOL (*BKC) LOZENGE 1 LOZENGE PO ×2 (08:39→21:38)
[2022-05-19] MEDS: levETIRAcetam 250 MG TABLET PO ×2 (08:40→21:37)
[2022-05-19] MEDS: predniSONE 20 MG, predniSONE 10 MG 30 MG PO (08:41)
[2022-05-19] MEDS: PANTOPRAZOLE 40 MG TABLET PO (08:42)
[2022-05-19] MEDS: SULFAMETHOXAZOLE/TRIMETHOPRIM 800/160 MG DS TABLET 1 TAB PO ×2 (08:42→21:37)
[2022-05-19] MEDS: MULTIVITAMINS THERAPEUTIC TAB (*BKC) 1 TABLET PO (08:42)
[2022-05-19] MEDS: GABAPENTIN 300 MG CAPSULE PO ×3 (08:42→16:09)
[2022-05-19] MEDS: ATORVASTATIN 40 MG TABLET PO (08:43)
[2022-05-19] MEDS: FUROSEMIDE 40 MG TABLET PO (08:43)
[2022-05-19] MEDS: ESCITALOPRAM OXALATE 10 MG TABLET PO (08:43)
[2022-05-19] MEDS: ASPIRIN 81 MG ENTERIC TABLET PO (08:44)
[2022-05-19] MEDS: rOPINIRole HCL 1 MG TABLET PO ×3 (08:45→16:09)
[2022-05-19] MEDS: UMECLIDINIUM BROMIDE 62.5 MCG ELLIPTA 1 PUFF INHALATION (08:45)
[2022-05-19] MEDS: polyethylene glycoL 3350 17 GM POWD.PACK PO (08:49)
--- NOTE | 2022-05-19 12:28 | P.PNIM_ITS ---
Progress Note: A&P Assessment and Plan (1) Olecranon bursitis of right elbow: Code(s): M70.21 - Olecranon bursitis, right elbow Status: Acute Assessment and Plan: * on 05/08/2022 ultrasound was obtained, did not reveal a DVT or soft tissue swelling. * On 05/09/2022 .? X-ray was obtained which revealed effusion and some soft tissue swelling overlying the olecranon * Ortho was consulted per Ortho no signs of infection of antibiotics recommend against draining may consider draining as outpatient if pain is persistent. Recommend to ice and elevate extremity swelling * Continue to keep heel elevated as they are marvin (2) Diastolic congestive heart failure: Qualifiers: Heart failure chronicity: acute on chronic Qualified Code(s): I50.33 - Acute on chronic diastolic (congestive) heart failure Code(s): I50.30 - Unspecified diastolic (congestive) heart failure Status: Acute Assessment and Plan: * Compensated * 01/24/2022 transthoracic echocardiogram showed normal LV systolic function, EF 55-60% and grade 1 diastolic dysfunction. * Continue Lasix and spironolactone daily * Will monitor patient does have pitting edema 2+ to lower extremities will possibly need to increase * Continue daily weights (3) GI bleed: Code(s): K92.2 - Gastrointestinal hemorrhage, unspecified Status: Acute Assessment and Plan: * Result * Hold Eliquis until small bowel capsule endoscope. Will determine after proced ure of Eliquis will continue continue for now continue aspirin. Hold antiplatelets as well * 05/02 Upper and lower endoscopy Dr. 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 * Periodically monitor H&H * Sinew iron supplements x8 weeks (4) Seizure disorder: Code(s): G40.909 - Epilepsy, unspecified, not intractable, without status epilepticus Status: Chronic Assessment and Plan: * Continue Keppra * no s/s seizures (5) Chronic obstructive pulmonary disease: Qualifiers: COPD type: COPD with acute exacerbation Qualified Code(s): J44.1 - Chronic obstructive pulmonary disease with (acute) exacerbation Code(s): J44.9 - Chronic obstructive pulmonary disease, unspecified Status: Acute Assessment and Plan: * Stable * 3 oxygen changed to 2l * Continue inhalers * Duonebs q6 h * prednisone dosage changed to a tapered dosage (6) Right patella fracture: Code(s): S82.001A - Unspecified fracture of right patella, initial encounter for closed fracture Status: Acute Assessment and Plan: * Status post fall 1 04/14/[address] Rudolph nonweightbearing to the right lower extremity with knee immobilizer * Ortho consulted continue knee immobilizer until next visit in office.Middle phalanx fracture looks stable stable * Patient is chair bound at baseline (7) Weakness: Code(s): R53.1 - Weakness Status: Acute Assessment and Plan: ? Exhibit tolerance during physical activity as evidenced by a normal fluctuation of vital signs during physical activity. ? Patient will be ability to perform required activities of daily living. ? Provide appropriate nutrition for healing and strength. ? Use appropriate to prevent falls. ? Continue physical therapy/occupational therapy. (8) Fracture of phalanx of right middle finger: Code(s): S62.602A - Fracture of unspecified phalanx of right middle finger, initial encounter for closed fracture Status: Acute (9) CKD (chronic kidney disease) stage 3, GFR
--- NOTE | 2022-05-19 12:28 | PM.IMPN ---
Progress Note: A&P Assessment and Plan (1) Olecranon bursitis of right elbow: Code(s): M70.21 - Olecranon bursitis, right elbow Status: Acute Assessment and Plan: on 05/08/2022 ultrasound was obtained, did not reveal a DVT or soft tissue swelling. On 05/09/2022 .? X-ray was obtained which revealed effusion and some soft tissue swelling overlying the olecranon Ortho was consulted per Ortho no signs of infection of antibiotics recommend against draining may consider draining as outpatient if pain is persistent. Recommend to ice and elevate extremity swelling Continue to keep heel elevated as they are marvin (2) Diastolic congestive heart failure: Qualifiers: Heart failure chronicity: acute on chronic Qualified Code(s): I50.33 - Acute on chronic diastolic (congestive) heart failure Code(s): I50.30 - Unspecified diastolic (congestive) heart failure Status: Acute Assessment and Plan: Compensated 01/24/2022 transthoracic echocardiogram showed normal LV systolic function, EF 55-60% and grade 1 diastolic dysfunction. Continue Lasix and spironolactone daily Will monitor patient does have pitting edema 2+ to lower extremities will possibly need to increase Continue daily weights (3) GI bleed: Code(s): K92.2 - Gastrointestinal hemorrhage, unspecified Status: Acute Assessment and Plan: Result Hold Eliquis until small bowel capsule endoscope. Will determine after procedure of Eliquis will continue continue for now continue aspirin. Hold antiplatelets as well 05/02 Upper and lower endoscopy Dr. 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 Periodically monitor H&H Sinew iron supplements x8 weeks (4) Seizure disorder: Code(s): G40.909 - Epilepsy, unspecified, not intractable, without status epilepticus Status: Chronic Assessment and Plan: Continue Keppra no s/s seizures (5) Chronic obstructive pulmonary disease: Qualifiers: COPD type: COPD with acute exacerbation Qualified Code(s): J44.1 - Chronic obstructive pulmonary disease with (acute) exacerbation Code(s): J44.9 - Chronic obstructive pulmonary disease, unspecified Status: Acute Assessment and Plan: Stable 3 oxygen changed to 2l Continue inhalers Duonebs q6 h prednisone dosage changed to a tapered dosage (6) Right patella fracture: Code(s): S82.001A - Unspecified fracture of right patella, initial encounter for closed fracture Status: Acute Assessment and Plan: Status post fall 1 04/14/[address] Rudolph nonweightbearing to the right lower extremity with knee immobilizer Ortho consulted continue knee immobilizer until next visit in office.Middle phalanx fracture looks stable stable Patient is chair bound at baseline (7) Weakness: Code(s): R53.1 - Weakness Status: Acute Assessment and Plan: ? Exhibit tolerance during physical activity as evidenced by a normal fluctuation of vital signs during physical activity. ? Patient will be ability to perform required activities of daily living. ? Provide appropriate nutrition for healing and strength. ? Use appropriate to prevent falls. ? Continue physical therapy/occupational therapy. (8) Fracture of phalanx of right middle finger: Code(s): S62.602A - Fracture of unspecified phalanx of right middle finger, initial encounter for closed fracture Status: Acute (9) CKD (chronic kidney disease) stage 3, GFR 30-59 ml/min: Qualifiers: Chronic kidney disease stage 3 subtype: unspecified whether 3a or 3b Qualified Code(s): N18.30 - Chronic kidney disease, stage 3 unspecified Code(s): N18.30 - Chronic kidney disease, stage 3 unspecified Status: Acute Assessment and Plan: chronic, stage III,? baseline BUN 18-26,? creatinine 1.2-1.3,? GFR 36-40. Will periodically monitor due t
[2022-05-19] MEDS: MELATONIN 5 MG TABLET PO (21:37)
[2022-05-19] MEDS: ACETAMINOPHEN 500 MG TABLET 1000 MG PO (21:38)
[2022-05-20] VITALS: BP 110/56; PULSE 86; RESP 18; TEMP 36.5; O2SAT 96
[2022-05-20] MEDS: BENZOCAINE/MENTHOL (*BKC) LOZENGE 1 LOZENGE PO ×2 (03:14→06:03)
[2022-05-20] MEDS: SALMET XINAFT/FLUTIC PROPIN 100 MCG/50 MCG INH CAP 1 PUFF INHALATION (06:02)
--- NOTE | 2022-05-20 07:53 | P.DS_ITS ---
DS: Admitting Diagnosis Discharge Date 05/20/2022 Admitting Diagnosis REhab, Weakness, Fracture of right patella DS: Discharge Diagnosis Discharge Diagnosis (1) Weakness: Code(s): R53.1 - Weakness Status: Acute Assessment and Plan: ? Exhibit tolerance during physical activity as evidenced by a normal fluctuation of vital signs during physical activity. ? Patient will be ability to perform required activities of daily living. ? Provide appropriate nutrition for healing and strength. ? Use appropriate to prevent falls. ? Continue physical therapy/occupational therapy. (2) Seizure disorder: Code(s): G40.909 - Epilepsy, unspecified, not intractable, without status epilepticus Status: Chronic Assessment and Plan: * no s/s of seizures (3) Chronic obstructive pulmonary disease: Qualifiers: COPD type: COPD with acute exacerbation Qualified Code(s): J44.1 - Chronic obstructive pulmonary disease with (acute) exacerbation Code(s): J44.9 - Chronic obstructive pulmonary disease, unspecified Status: Acute Assessment and Plan: * Stable * 3 oxygen changed to 2l * Continue inhalers * Duonebs q6 h * prednisone dosage changed to a tapered dosage * Prednisone 20 mg x2day, 10mg x 2 days, 5mg x2days (4) Chronic kidney disease, stage 3: Code(s): N18.30 - Chronic kidney disease, stage 3 unspecified Status: Acute Assessment and Plan: * BUN 27 * CR 1.32 (5) Acute respiratory failure with hypoxia: Code(s): J96.01 - Acute respiratory failure with hypoxia Status: Acute Assessment and Plan: * Prednisone 20 mg x2day, 10mg x 2 days, 5mg x2days (6) Olecranon bursitis of right elbow: Code(s): M70.21 - Olecranon bursitis, right elbow Status: Acute Assessment and Plan: * on 05/08/2022 ultrasound was obtained, did not reveal a DVT or soft tissue swelling. * On 05/09/2022 .? X-ray was obtained which revealed effusion and some soft tissue swelling overlying the olecranon * Ortho was consulted per Ortho no signs of infection of antibiotics recommend against draining may consider draining as outpatient if pain is persistent. Recommend to ice and elevate extremity swelling * Continue to keep heel elevated as they are marvin (7) Diastolic congestive heart failure: Qualifiers: Heart failure chronicity: acute on chronic Qualified Code(s): I50.33 - Acute on chronic diastolic (congestive) heart failure Code(s): I50.30 - Unspecified diastolic (congestive) heart failure Status: Acute Assessment and Plan: * Compensated * 01/24/2022 transthoracic echocardiogram showed normal LV systolic function, EF 55-60% and grade 1 diastolic dysfunction. * Continue Lasix and spironolactone daily * Will monitor patient does have pitting edema 2+ to lower extremities will possibly need to increase * Continue daily weights (8) GI bleed: Code(s): K92.2 - Gastrointestinal hemorrhage, unspecified Status: Acute Assessment and Plan: * Result * Hold Eliquis until small bowel capsule endoscope. Will determine after procedure of Eliquis will continue continue for now continue aspirin. Hold antiplatelets as well * 05/02 Upper and lower endoscopy Dr. 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 * Periodically monitor H&H * Sinew iron supplements x8 weeks (9) Right patella fracture: Code(s): S82.001A - Unspecified fracture of right patella, initial encounter for clos
--- NOTE | 2022-05-20 07:53 | PM.DS ---
DS: Admitting Diagnosis Discharge Date 05/20/2022 Admitting Diagnosis REhab, Weakness, Fracture of right patella DS: Discharge Diagnosis Discharge Diagnosis (1) Weakness: Code(s): R53.1 - Weakness Status: Acute Assessment and Plan: ? Exhibit tolerance during physical activity as evidenced by a normal fluctuation of vital signs during physical activity. ? Patient will be ability to perform required activities of daily living. ? Provide appropriate nutrition for healing and strength. ? Use appropriate to prevent falls. ? Continue physical therapy/occupational therapy. (2) Seizure disorder: Code(s): G40.909 - Epilepsy, unspecified, not intractable, without status epilepticus Status: Chronic Assessment and Plan: no s/s of seizures (3) Chronic obstructive pulmonary disease: Qualifiers: COPD type: COPD with acute exacerbation Qualified Code(s): J44.1 - Chronic obstructive pulmonary disease with (acute) exacerbation Code(s): J44.9 - Chronic obstructive pulmonary disease, unspecified Status: Acute Assessment and Plan: Stable 3 oxygen changed to 2l Continue inhalers Duonebs q6 h prednisone dosage changed to a tapered dosage Prednisone 20 mg x2day, 10mg x 2 days, 5mg x2days (4) Chronic kidney disease, stage 3: Code(s): N18.30 - Chronic kidney disease, stage 3 unspecified Status: Acute Assessment and Plan: BUN 27 CR 1.32 (5) Acute respiratory failure with hypoxia: Code(s): J96.01 - Acute respiratory failure with hypoxia Status: Acute Assessment and Plan: Prednisone 20 mg x2day, 10mg x 2 days, 5mg x2days (6) Olecranon bursitis of right elbow: Code(s): M70.21 - Olecranon bursitis, right elbow Status: Acute Assessment and Plan: on 05/08/2022 ultrasound was obtained, did not reveal a DVT or soft tissue swelling. On 05/09/2022 .? X-ray was obtained which revealed effusion and some soft tissue swelling overlying the olecranon Ortho was consulted per Ortho no signs of infection of antibiotics recommend against draining may consider draining as outpatient if pain is persistent. Recommend to ice and elevate extremity swelling Continue to keep heel elevated as they are marvin (7) Diastolic congestive heart failure: Qualifiers: Heart failure chronicity: acute on chronic Qualified Code(s): I50.33 - Acute on chronic diastolic (congestive) heart failure Code(s): I50.30 - Unspecified diastolic (congestive) heart failure Status: Acute Assessment and Plan: Compensated 01/24/2022 transthoracic echocardiogram showed normal LV systolic function, EF 55-60% and grade 1 diastolic dysfunction. Continue Lasix and spironolactone daily Will monitor patient does have pitting edema 2+ to lower extremities will possibly need to increase Continue daily weights (8) GI bleed: Code(s): K92.2 - Gastrointestinal hemorrhage, unspecified Status: Acute Assessment and Plan: Result Hold Eliquis until small bowel capsule endoscope. Will determine after procedure of Eliquis will continue continue for now continue aspirin. Hold antiplatelets as well 05/02 Upper and lower endoscopy Dr. 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 Periodically monitor H&H Sinew iron supplements x8 weeks (9) Right patella fracture: Code(s): S82.001A - Unspecified fracture of right patella, initial encounter for closed fracture Status: Acute Assessment and Plan: Status post fall 1 04/14/[address] Rudolph nonweightbearing to the right lower extremity with knee immobilizer Ortho consulted continue knee immobilizer until next visit in office.Middle phalanx fracture looks stable stable Patient is chair bound at baseline (10) Fracture of phalanx of right middle finger: Code(s): S62.602A - Fracture of unspe
[2022-05-20 08:00] VITALS: BP 120/60; PULSE 80; RESP 16; TEMP 36.8; O2SAT 95; O2SAT 96
[2022-05-20] MEDS: levETIRAcetam 250 MG TABLET PO (08:52)
[2022-05-20] MEDS: polyethylene glycoL 3350 17 GM POWD.PACK PO (08:52)
[2022-05-20] MEDS: SULFAMETHOXAZOLE/TRIMETHOPRIM 800/160 MG DS TABLET 1 TAB PO (08:53)
[2022-05-20] MEDS: ASPIRIN 81 MG ENTERIC TABLET PO (08:53)
[2022-05-20] MEDS: ATORVASTATIN 40 MG TABLET PO (08:53)
[2022-05-20] MEDS: ESCITALOPRAM OXALATE 10 MG TABLET PO (08:53)
[2022-05-20] MEDS: POTASSIUM CHLORIDE 20 MEQ TABLET PO (08:53)
[2022-05-20] MEDS: MULTIVITAMINS THERAPEUTIC TAB (*BKC) 1 TABLET PO (08:53)
[2022-05-20] MEDS: GABAPENTIN 300 MG CAPSULE PO ×2 (08:53→12:49)
[2022-05-20] MEDS: FUROSEMIDE 40 MG TABLET PO (08:54)
[2022-05-20] MEDS: rOPINIRole HCL 1 MG TABLET PO ×2 (08:54→12:49)
[2022-05-20] MEDS: PANTOPRAZOLE 40 MG TABLET PO (08:54)
[2022-05-20] MEDS: predniSONE 20 MG, predniSONE 10 MG 30 MG PO (08:54)
[2022-05-20] MEDS: UMECLIDINIUM BROMIDE 62.5 MCG ELLIPTA 1 PUFF INHALATION (08:55)
[2022-05-20 14:03] VITALS: O2SAT 94
--- NOTE | 2022-05-20 14:42 | PC.NURSE ---
Pt discharged home with her friend Isabela. Discharge instructions given for new medication: Prednisone in decreasing dosage, script sent to pt pharmacy of choice. All other home medications remain the same. Instructions for wound care of abrasion on Left angulo given to pt. Pt instructed to keep the right knee brace on while up and to keep her appointment with her ortho doctor. Follow up appointments reviewed with pt. RN transfered pt to family car via and helped her inside.
--- NOTE | 2022-05-21 10:02 | PC.NURSE ---
Follow up call attempted, called home phone and cell phone, no answer.
--- NOTE | 2022-05-22 13:18 | PC.NURSE ---
discharge call back completed, all instructions reviewed, no questions, saw ortho yesterday, brace is off, call apply weight as tolerated, home health has seen her and will draw her blood thursday, bath aid will be in tomorrow, pt/ot schedule still to be determined, call in for pulmonology appointment, to see Dr Meyers thursday next week.
== END 2022-05-20 14:30 | disposition home health service (06) | DRG 947 ==
PROVIDERS: Nurse Practitioner Family; Admitting Provider Internal Medicine; PCP Internal Medicine; Visit Provider Internal Medicine
DX: R53.1 Weakness (principal); J18.9 Pneumonia, unspecified organism; J96.10 Chronic respiratory failure, unspecified whether with hypoxia or hypercapnia; I13.0 Hypertensive heart and chronic kidney disease with heart failure and stage 1 through stage 4 chronic kidney disease, or unspecified chronic kidney disease; I50.32 Chronic diastolic (congestive) heart failure; I69.351 Hemiplegia and hemiparesis following cerebral infarction affecting right dominant side; S82.001D Unspecified fracture of right patella, subsequent encounter for closed fracture with routine healing; N18.30 Chronic kidney disease, stage 3 unspecified; I25.10 Atherosclerotic heart disease of native coronary artery without angina pectoris; K31.819 Angiodysplasia of stomach and duodenum without bleeding; J44.9 Chronic obstructive pulmonary disease, unspecified; E78.5 Hyperlipidemia, unspecified; M81.0 Age-related osteoporosis without current pathological fracture; M70.21 Olecranon bursitis, right elbow; G40.909 Epilepsy, unspecified, not intractable, without status epilepticus; F32.A Depression, unspecified; F41.9 Anxiety disorder, unspecified; W19.XXXD Unspecified fall, subsequent encounter; S62.602D Fracture of unspecified phalanx of right middle finger, subsequent encounter for fracture with routine healing; Z86.711 Personal history of pulmonary embolism; Z79.01 Long term (current) use of anticoagulants; Z85.118 Personal history of other malignant neoplasm of bronchus and lung; Z87.891 Personal history of nicotine dependence; Z99.81 Dependence on supplemental oxygen; Z95.5 Presence of coronary angioplasty implant and graft; Z90.5 Acquired absence of kidney
CPT/HCPCS: 36415; 71045; 80048; 83880; 85027; 92526; 92610; 94640; 97110; 97161; 97165; 97530; 97535; A9270; J7512

== ENCOUNTER 2022-05-22 05:52 | Outpatient (CLI) | payer MEDICARE, MEDICAID, SELFPAY ==
--- NOTE | 2022-05-22 06:54 | SUR.OPER ---
Patient brought to GI Lab. Instructions for patient undergoing Capsule Endoscopy reviewed with patient. Consent form signed. Sensor array applied to patient's abdomen and connected to recorded. Patient swallowed capsule with 16 ozs of water infused with Simethicone. Patient instructed they may have clear liquids at 0830 this AM and eat or drink at 1030 this AM. Patient instructed that GI RN Hali will arrive at [place] around 5pm today for removal of recording device and to call [phone] or to return to the hospital if any nausea and vomiting or abdominal pain is experienced.
--- NOTE | 2022-05-23 09:15 | SUR.OPER ---
Patient unable to return to Endoscopy to remove recorder so I went to [facility] in [facility] for recorder box removal. Patient voiced no complaints. States they have understanding of instructions. Facility aware recorder removed at 1600. Recorder returned to Endoscopy 0715 05/23/2022 to Rose Marie Gunn Rn.
== END 2022-05-22 05:53 | disposition home or self-care (01) ==
PROVIDERS: PCP Internal Medicine; Visit Provider Internal Medicine Gastroenterology
PROC: 0DJ07ZZ Inspection of Upper Intestinal Tract, Via Natural or Artificial Opening (ICD-10-PCS; CPT 91110; principal; 2022-05-22 07:00)
DX: Z01.818 Encounter for other preprocedural examination (principal)
CPT/HCPCS: 91110

== ENCOUNTER 2022-05-26 13:25 | Outpatient (NON) | payer MEDICARE, SELFPAY ==
[2022-05-26 13:39] LABS: Basophils Absolute Auto 0.03 K/mm3 (0.00-0.10); Basophils Percent Auto 0.2 % (0.0-1.0); Eosinophils Absolute Auto 0.09 K/mm3 (0.02-0.50); Eosinophils Percent Auto 0.7 % (1.0-6.0); Hematocrit 33.6 % (35.0-42.0); Hemoglobin 9.5 g/dL (11.7-13.8); Immature Granulocyte Absolute 0.13 K/mm3 (0.00-0.00); Immature Granulocyte Percent A 1.1 % (0.0-0.0); Lymphocytes Absolute Auto 0.55 K/mm3 (1.10-4.50); Lymphocytes Percent Auto 4.6 % (18.0-42.0); Mean Corpuscular HGB Conc 28.3 g/dL (32.0-36.0); Mean Corpuscular Hemoglobin 24.4 pg (27.0-31.0); Mean Corpuscular Volume 86.2 fL (78.0-102.0); Mean Platelet Volume 10.1 fl (9.2-11.8); Monocytes Absolute Auto 0.53 K/mm3 (0.10-0.90); Monocytes Percent Auto 4.4 % (2.0-11.0); Neutrophils Absolute Auto 10.8 K/mm3 (1.7-7.2); Nucleated Red Blood Cells Absolute Auto 0.02 K/mm3 (0.00-0.00); Nucleated Red Blood Cells Perc 0.2 % (0-0.0); Platelet Count Result 369 K/mm3 (150-420); Red Cell Distribution Width 17.9 % (11.6-14.4); White Blood Count 12.1 K/mm3 (4.8-10.8)
[2022-05-26 14:01] LABS: Alanine Aminotransferase 33 U/L (14-59); Albumin Level 3.3 g/dL (3.4-5.0); Alkaline Phosphatase 81 U/L (46-116); Anion Gap 6 mmol/L (8-16); Aspartate Amino Transferase 16 U/L (15-37); Bilirubin,Total 0.4 mg/dL (0.00-1.00); Blood Urea Nitrogen 19 mg/dL (7-18); Calcium 8.8 mg/dL (8.5-10.1); Carbon Dioxide 37 mmol/L (21-32); Chloride 100 mmol/L (98-108); Estimated Glomerular Filt Rate 51; Glucose 121 mg/dL (70-99); NT Pro B Type Natriuretic Pept 753 pg/mL (0-125); Osmolality Calculated 299 mOsm/kg (285-295); Potassium 3.8 mmol/L (3.5-5.1); Sodium 143 mmol/L (136-145); Total Protein 5.9 g/dL (6.4-8.2)
== END 2022-05-26 13:26 | disposition home or self-care (01) ==
LOC: CHSLAB 13:27
PROVIDERS: Visit Provider Internal Medicine
DX: D64.9 Anemia, unspecified (principal); J44.9 Chronic obstructive pulmonary disease, unspecified; I10 Essential (primary) hypertension; I50.9 Heart failure, unspecified
CPT/HCPCS: 80053; 83880; 85025

== ENCOUNTER 2022-06-05 16:24 | Inpatient (IN) | payer MEDICARE, MEDICAID, SELFPAY ==
[2022-06-05] VITALS (24 sets, daily range): BP systolic 100–136; BP diastolic 61–104; PULSE 79–101; RESP 12–26; TEMP 36.5–37; O2SAT 94–100; BMI 29.0
--- NOTE | ~2022-06-05 | XR_ITS ---
EXAMINATION: XR chest 2V DATE: 06/05/2022 16:56 INDICATION: Shortness of breath TECHNIQUE: AP and lateral views of the chest are obtained. COMPARISON: 05/19/2022, 05/07/2022 FINDINGS: There are small pleural effusions. There is no pneumothorax. There are minimal airspace opa cities of the lung bases. The cardiomediastinal silhouette is normal. There is a chronic compression fracture of T6 without significant change. IMPRESSION: 1. Small pleural effusions with minimal bibasilar airspace opacities, likely atelectasis. Reviewed, dictated and finalized at location A. IMPRESSION: 1. Small pleural effusions with minimal bibasilar airspace opacities, likely at electasis.
--- NOTE | 2022-06-05 16:37 | ECG_ITS ---
Measurements Intervals [place] Rate: 84 P: 70 VA: 166 QRS: 31 QRSD: 89 T: 45 QT: 372 QTc: 442 Interpretive Statements SINUS RHYTHM BASELINE WANDER- V5 NORMAL ECG COMPARED TO ECG 05/01/2022 11:36:10 NO SIGNIFICANT CHANGES Electronically Signed On 06-05-2022 16:50:24 CDT by Oli Meyers D.O.
--- NOTE | 2022-06-05 16:37 | ED.SOB ---
HPI - SOB/Dyspnea General Chief Complaint: Shortness of Breath/Dyspnea Stated Complaint: SOB Time Seen by Provider: 06/05/22 16:37 History of Present Illness HPI Narrative: Patient is a 71-year-old female with a history of COPD (on 2 L baseline), HFpEF, PE on Eliquis, hyperlipidemia, seizure disorder presenting with shortness of breath. Patient states that she has been increasingly short of breath over the last week. Her decorating consultant increased her Lasix dose on Thursday but the prescription was not completed until yesterday. She has taken 2 doses but her shortness of breath has continued. She has also had a productive cough. Denies fevers, chest pain, abdominal pain, nausea or vomiting, diarrhea, dysuria. States her leg swelling has been controlled but her left leg has been weeping. Related Data Home Medications Medication Instructions Recorded Confirmed acetaminophen 500 mg capsule 500 mg PO Q6H PRN Pain 11/24/19 06/02/22 aspirin 81 mg tablet,delayed 81 mg PO DAILY 11/24/19 06/02/22 release (Adult Aspirin Regimen) atorvastatin 40 mg tablet 40 mg PO DAILY 11/24/19 06/02/22 escitalopram oxalate 20 mg tablet 10 mg PO DAILY 11/24/19 06/02/22 levetiracetam 250 mg tablet 250 mg PO Q12H 11/24/19 06/02/22 melatonin 5 mg capsule 5 mg PO HS 11/24/19 06/02/22 potassium chloride 20 mEq 20 meq PO DAILY 11/24/19 06/02/22 tablet,extended release spironolactone 25 mg tablet 25 mg PO DAILY 11/24/19 06/02/22 alprazolam 0.5 mg tablet 1 tablet QID PRN Anxiety 03/10/22 06/02/22 multivitamin with folic acid 400 1 tablet PO DAILY 03/10/22 06/02/22 mcg tablet (Daily-Annie (with folic acid)) gabapentin 300 mg capsule 300 mg PO TID 04/14/22 06/02/22 apixaban 5 mg tablet (Eliquis) 5 mg PO BID 05/01/22 06/02/22 ropinirole 1 mg tablet 1 mg PO TID 05/01/22 06/02/22 umeclidinium 62.5 mcg/actuation 1 inh inhalation DAILY 05/01/22 06/02/22 blister powder for inhalation (Incruse Ellipta) fluticasone propionate 230 1 puff inhalation BID 05/21/22 06/02/22 mcg-salmeterol 21 mcg/actuation HFA inhaler Allergies Allergy/AdvReac Type Severity Reaction Status Date / Time adhesive Allergy Unknown Unknown Verified 06/05/22 16:39 hydrocodone Allergy Unknown Unknown Verified 06/05/22 16:39 iodine Allergy Unknown Unknown Verified 06/05/22 16:39 latex Allergy Unknown Unknown Verified 06/05/22 16:39 lorazepam Allergy Unknown Unknown Verified 06/05/22 16:39 nickel Allergy Unknown Unknown Verified 06/05/22 16:39 Review of Systems Review of Systems: All systems reviewed & are unremarkable except as noted in HPI and below PMFSH Past Medical History Medical History Cerebrovascular accident Residual right-sided weakness. Chronic kidney disease, stage 3 Chronic obstructive pulmonary disease Depression with anxiety Diastolic congestive heart failure Diastolic dysfunction Dyslipidemia Hypertension Occult blood in stools Pulmonary embolism (11/2021) Seizure disorder Small cell lung cancer Status post chemoradiotherapy. Surgical History Surgical History History of abdominal aortic aneurysm repair History of cardiac catheterization History of heart artery stent History of incisional hernia repair History of inguinal hernia repair History of left nephrectomy At age 3, done for unclear reasons. Family History Family History Sibling Family history of arthritis Father Melanoma Mother No problems noted. Social History Social History Social History: [id number]: Isabela. Code status: Full code. Smoking packs per day: 1 Smoking cigarettes per day: 20.0 Years smoked: 20 Smoking pack-years: 20.00 Smoking status: Former smoker Tobacco type: cigarettes Second hand tobacco smoke exposure: No Smo
[2022-06-05 17:25] LABS: Basophils Percent Auto 0.2 % (0.2-1.2); Eosinophils Absolute Auto 0.1 K/mm3 (0-0.3); Eosinophils Percent Auto 1.5 % (0-4.4); Immature Granulocyte Absolute 0.07 K/mm3 (0.00-0.031); Immature Granulocyte Percent A 0.8 % (0-0.5); Lymphocytes Absolute Auto 1.28 K/mm3 (0.9-3.2); Lymphocytes Percent Auto 15.5 % (18.3-44.2); Mean Corpuscular HGB Conc 27.2 g/dl (32-36); Mean Corpuscular Hemoglobin 23.6 pg (26-34); Mean Corpuscular Volume 86.7 fl (80-100); Mean Platelet Volume 10.1 fl (7.4-10.4); Monocytes Absolute Auto 0.6 K/mm3 (0.1-0.6); Monocytes Percent Auto 6.8 % (2.6-8.5); Neutrophils Absolute Auto 6.2 K/mm3 (1.3-6.7); Neutrophils Percent Auto 75.2 % (45.5-73.1); Nucleated Red Blood Cells Absolute Auto 0.1 K/mm3 (0.0-0.012); Nucleated Red Blood Cells Perc 0.8 % (0.0-0.2); Platelet Count Result 303 k/mm3 (150-375); Red Blood Count 2.33 M/mm3 (4.2-5.4); Red Cell Distribution Width 19.5 % (11.5-14.5); White Blood Count 8.3 K/mm3 (4.5-10.0)
[2022-06-05 17:29] LABS: Alanine Aminotransferase 23 U/L (6-35); Albumin Level 3.2 g/dL (3.5-5.1); Alkaline Phosphatase 62 U/L (38-126); Anion Gap 5 mmol/L (8-16); Aspartate Amino Transferase 26 U/L (14-36); Bilirubin,Total 0.2 mg/dL (0.2-1.3); Blood Urea Nitrogen 38 mg/dL (7-17); Calcium 9.3 mg/dL (8.4-10.2); Carbon Dioxide 38 mmol/L (22-30); Chloride 97 mmol/L (98-107); Estimated Glomerular Filt Rate 40; Glucose 118 mg/dL (65-110); Potassium 3.6 mmol/L (3.4-5.0); Sodium 140 mmol/L (137-145)
[2022-06-05 17:48] LABS: Hematocrit 20.2 % (37.0-47.0); Hemoglobin 5.5 g/dL (12.0-15.0)
[2022-06-05 17:49] LABS: Hypochromasia 1+ (NORMAL); Ovalocytes 1+ (NORMAL); Platelet Estimate Adequate (Adequate); Target Cells 1+ (NORMAL)
[2022-06-05 17:50] LABS: Schistocytes None Seen (NORMAL)
[2022-06-05] MEDS: IPRATROPIUM BR 0.02% INH SOLN 0.5 MG/2.5 ML VIAL INHALATION (17:55)
[2022-06-05] MEDS: ALBUTEROL SULFATE NEB 2.5 MG/3 ML INH 10 MG INHALATION (17:55)
[2022-06-05 18:42] LABS: SARS-CoV-2 RNA PCR Negative
[2022-06-05] MEDS: TUBING, BLOOD SET 1 EACH XX (21:12)
[2022-06-05] MEDS: SODIUM CHLORIDE 0.9% IV 250 ML 30 ML IV CONT (21:12)
[2022-06-05] MEDS: TUBING, BLOOD PLUM PUMP TUBING 1 EACH XX (21:12)
--- NOTE | 2022-06-05 21:56 | PM.IMHP ---
H&P: HPI History of Present Illness Date/Time: 06/05/22 21:56 Chief Complaint: generalizzed weakness Narrative: Patient is a 71-year-old female with a history of COPD (on 2 L baseline), HFpEF, PE on Eliquis, hyperlipidemia, seizure disorder presenting with worsening shortness of breath and generalsied weakness. she is also had cough. she was here in april and had pneumoina at that time. she went to [facility] for 10 more days. she then recently had a egd/colonoscpy done on 05/29/2022 and had cauterisation done. she also had a video capsule endoscopy which she reports came back okay. she dneies any blood in her stool and also no dark stool. she was told she was low in the blood by her PCP yesterday. she asked her to go to the hospital. the blood were drawn a week ago. she denies any chest pain, nasuea, vomiting. she reprts leg swelling since april. 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 she has hx of stroke with right side weakness residual deficit. Review of Systems Review of Systems: - CONSTITUTIONAL: Denies weight loss, fever and chills. - HEENT: Denies changes in vision and hearing - RESPIRATORY: rerots SOB and cough. - CV: Denies palpitations and CP. - GI: Denies abdominal pain, nausea, vomiting and diarrhea. - : Denies dysuria and urinary frequency. - MSK: Denies myalgia and joint pain. - SKIN: Denies rash and pruritus. - NEUROLOGICAL: Denies headache and syncope. - PSYCHIATRIC: Denies recent changes in mood. Denies anxiety and depression. All systems reviewed & are unremarkable except as noted in HPI and below PMFSH Past Medical History Medical History Cerebrovascular accident Residual right-sided weakness. Chronic kidney disease, stage 3 Chronic obstructive pulmonary disease Depression with anxiety Diastolic congestive heart failure Diastolic dysfunction Dyslipidemia Hypertension Occult blood in stools Pulmonary embolism (11/2021) Seizure disorder Small cell lung cancer Status post chemoradiotherapy. Surgical History Surgical History History of abdominal aortic aneurysm repair History of cardiac catheterization History of heart artery stent History of incisional hernia repair History of inguinal hernia repair History of left nephrectomy At age 3, done for unclear reasons. Family History Family History Sibling Family history of arthritis Father Melanoma Mother No problems noted. Social History Social History Social History: [id number]: Isabela. Code status: Full code. Smoking packs per day: 1 Smoking cigarettes per day: 20.0 Years smoked: 20 Smoking pack-years: 20.00 Smoking status: Former smoker Tobacco type: cigarettes Second hand tobacco smoke exposure: No Smoking end date: 09/14/05 Alcohol intake: former Alcohol use details: No alcohol since 2005. Substance use: never Substance use type: does not use Additional living arrangements comments: Lives in assisted living. Wheelchair-bound due to right-sided deficits from prior CVA. Spiritual care concerns: No Meds Home Medications and Allergies Home Medications Medication Instructions Recorded Confirmed Type acetaminophen 500 mg capsule 500 mg PO Q6H PRN Pain 11/24/19 06/02/22 History aspirin 81 mg tablet,delayed 81 mg PO DAILY 11/24/19 06/02/22 History release (Adult Aspirin Regimen) atorvastatin 40 mg tablet 40 mg PO DAILY 11/24/19 06/02/22 History escitalopram oxalate 20 mg tablet 10 mg PO DAILY 11/24/19 06/02/22 History levetiracetam 250 mg tablet 250 mg PO Q12H 11/24/19 06/02/22 History melatonin 5 mg capsule 5 mg PO HS 11/24/19 06/02/22 History potassium chloride 20 mEq 20 meq PO DAILY
[2022-06-05 21:57] LABS: NT Pro B Type Natriuretic Pept 1180 pg/mL (5-100)
--- NOTE | 2022-06-05 23:00 | ADMGEN ---
This patient, Teresa Levi, was admitted to IMU Room 206-01. Patient/family oriented to hospital policies and general routines including ID bracelet, bed and alarms, visiting hours, pain management, procedures, bathroom and other care routines, personal items, smoking policy, room service/diet, and visiting hours. Information on how to activate the Rapid Response Team has been discussed. Patient/Family are encouraged to report perceived risks to care and to ask questions if they do not understand what they are told or what they should do.
[2022-06-05] MEDS: FUROSEMIDE INJ 40 MG/4 ML VIAL IV PUSH (23:59)
[2022-06-05] MEDS: SODIUM CHLORIDE 0.9% IV 100 ML 30 ML (23:59)
[2022-06-05] MEDS: PANTOPRAZOLE SODIUM IV 40 MG VIAL IV PUSH (23:59)
[2022-06-06] VITALS (17 sets, daily range): BP systolic 114–122; BP diastolic 54–79; PULSE 71–101; RESP 16–20; TEMP 36.3–36.8; O2SAT 94–100
--- NOTE | 2022-06-06 | ECHO_ITS ---
Patient Info Name: Teresa Levi Age: 71 years : 1950 Gender: Female Ht: 65 in Wt: 170 lbs BSA: 1.90 m2 HR: 72 bpm BP: 132 / 85 mmHg Technical Quality: Good Exam Date: 06/06/2022 10:46 AM Exam Location: [facility] Patient Status: Inpatient Admit Date: 06/05/2022 Staff Ordering Physician: Grupo Cabrales MD Transportation Attendant: Gamaliel Teran, YIN, RT Attending Provider: Grupo Cabrales MD Exam Type: CA echo doppler color flow Study Info Indications I50.9 - Heart failure, unspecified Complete two-dimensional, color flow and Doppler transthoracic echocardiogram is performed. Summary 1. Complete two-dimensional, color flow and Doppler transthoracic echocardiogram is performed. 2. Left ventricular chamber dimension is normal. 3. Left ventricular systolic function is normal, estimated at 55-60%. 4. There is mildly increased left ventricular wall thickness. 5. The left ventricular diastolic function is grade I diastolic dysfunction. 6. E/e' 13 is mildly elevated. 7. The mitral valve has moderately calcified annulus. 8. Dilated inferior vena cava with >50% collapse upon inspiration consistent with elevated right atrial pressure, 10 mmHg. Left Ventricle E/e' 13 is mildly elevated. Left ventricular chamber dimension is normal. Left ventricular systolic function is normal, estimated at 55-60%. There is mildly increased left ventricular wall thickness. The left ventricular diastolic function is grade I diastolic dysfunction. Right Ventricle Right ventricular systolic function is normal and with normal TAPSE 2.9 cm. Right ventricular chamber dimension is normal. Left Atria Left atrial chamber dimension is normal. Right Atria Right atrial chamber dimension is normal. Aortic Valve The aortic valve is trileaflet. There is no aortic valve stenosis. There is no aortic valve regurgitation. Pulmonic Valve There is no pulmonic regurgitation. Mitral Valve The mitral valve has moderately calcified annulus. There is no mitral valve stenosis. There is no mitral valve regurgitation. Tricuspid Valve There is no tricuspid valve regurgitation. Pericardium/Pleural There is no pericardial effusion. Inferior Vena Cava Dilated inferior vena cava with >50% collapse upon inspiration consistent with elevated right atrial pressure, 10 mmHg. Aorta The aortic root size at the sinus of Valsalva is normal. Left Ventricular Outflow Tract Name Value Normal LVOT 2D LVOT Diameter 2.1 cm LVOT Doppler LVOT Peak Gradient 5 mmHg LVOT Mean Gradient 2 mmHg LVOT VTI 21 cm LVOT VTI/AV VTI Ratio 0.7 LVOT Stroke Volume 73 ml Mitral Valve Name Value Normal MV Doppler MV Decel [place] 619 cm/s2
[2022-06-06 04:20] LABS: Lactate Dehydrogenase 167 U/L (120-246)
[2022-06-06 05:33] LABS: Basophils Percent Auto 0.1 % (0.2-1.2); Hematocrit 26.6 % (37.0-47.0); Immature Granulocyte Absolute 0.09 K/mm3 (0.00-0.031); Immature Granulocyte Percent A 1.2 % (0-0.5); Immature Platelet Fraction Pct 2.5 % (0.9-11.2); Immature Reticulocyte Fraction 30.1 % (3.0-15.9); Lymphocytes Absolute Auto 0.51 K/mm3 (0.9-3.2); Lymphocytes Percent Auto 6.6 % (18.3-44.2); Mean Corpuscular HGB Conc 30.1 g/dl (32-36); Mean Corpuscular Hemoglobin 25.9 pg (26-34); Mean Corpuscular Volume 86.1 fl (80-100); Mean Platelet Volume 9.5 fl (7.4-10.4); Monocytes Absolute Auto 0.1 K/mm3 (0.1-0.6); Monocytes Percent Auto 1.3 % (2.6-8.5); Neutrophils Percent Auto 90.8 % (45.5-73.1); Nucleated Red Blood Cells Absolute Auto 0.1 K/mm3 (0.0-0.012); Nucleated Red Blood Cells Perc 1.7 % (0.0-0.2); Platelet Count Result 318 k/mm3 (150-375); Red Blood Count 3.09 M/mm3 (4.2-5.4); Red Cell Distribution Width 17.5 % (11.5-14.5); Reticulocyte Hemoglobin Conten 18.9 pg (28.2-35.7); Reticulocyte Percent 5.84 % (0.7-4.3); Reticulocytes Absolute 0.18 B/L (32.2-175.7); White Blood Count 7.7 K/mm3 (4.5-10.0)
[2022-06-06 05:56] LABS: Platelet Estimate Adequate (Adequate)
[2022-06-06 05:57] LABS: Anisocytosis 2+ (NORMAL); Hypochromasia 2+ (NORMAL); Ovalocytes 1+ (NORMAL); Poikilocytosis 1+ (NORMAL); Schistocytes None Seen (NORMAL); Target Cells 1+ (NORMAL)
[2022-06-06] MEDS: PANTOPRAZOLE SODIUM IV 40 MG VIAL IV PUSH ×2 (08:13→21:18)
[2022-06-06] MEDS: ESCITALOPRAM OXALATE 10 MG TABLET PO (09:31)
[2022-06-06] MEDS: ATORVASTATIN 40 MG TABLET PO (09:31)
[2022-06-06] MEDS: GABAPENTIN 300 MG CAPSULE PO ×3 (09:31→16:18)
[2022-06-06] MEDS: levETIRAcetam 250 MG TABLET PO ×2 (09:31→21:18)
[2022-06-06] MEDS: MULTIVITAMINS THERAPEUTIC TAB (*BKC) 1 TABLET PO (09:31)
[2022-06-06] MEDS: FUROSEMIDE 40 MG TABLET PO ×2 (09:31→16:17)
[2022-06-06] MEDS: POTASSIUM CHLORIDE 20 MEQ TABLET.ER PO (09:31)
[2022-06-06] MEDS: SPIRONOLACTONE 25 MG TABLET PO (09:31)
--- NOTE | 2022-06-06 10:16 | PM.IMPN ---
Progress Note: A&P Assessment and Plan (1) Weakness: Code(s): R53.1 - Weakness Status: Acute (2) Acute blood loss anemia: Code(s): D62 - Acute posthemorrhagic anemia Status: Acute (3) Diastolic congestive heart failure: Qualifiers: Heart failure chronicity: acute on chronic Qualified Code(s): I50.33 - Acute on chronic diastolic (congestive) heart failure Code(s): I50.30 - Unspecified diastolic (congestive) heart failure Status: Acute (4) Seizure disorder: Code(s): G40.909 - Epilepsy, unspecified, not intractable, without status epilepticus Status: Chronic (5) GI bleed: Code(s): K92.2 - Gastrointestinal hemorrhage, unspecified Status: Acute (6) Chronic obstructive pulmonary disease: Qualifiers: COPD type: COPD with acute exacerbation Qualified Code(s): J44.1 - Chronic obstructive pulmonary disease with (acute) exacerbation Code(s): J44.9 - Chronic obstructive pulmonary disease, unspecified Status: Acute (7) Chronic kidney disease, stage 3: Code(s): N18.30 - Chronic kidney disease, stage 3 unspecified Status: Acute (8) Pulmonary embolism: Onset Date: 11/2021 Code(s): I26.99 - Other pulmonary embolism without acute cor pulmonale Status: Acute (9) Dyslipidemia: Code(s): E78.5 - Hyperlipidemia, unspecified Status: Acute (10) Diastolic dysfunction: Code(s): I51.89 - Other ill-defined heart diseases Status: Acute Plan # generalsied weaknesss/progressvie shortness: noted to have severe anemia. Improved with transfusion # severe anemia: acute on chornic: hb down to 5.5. hb 9.5 05/26 transfuse two units prbc. lasix in between. no signs of blood loss noted. recent EGD and colonoscpy with AVM s/p APC. PPI bid. ongoing gi bleed vs other etiologies. hematology consult. Post transfusion hemoglobin appropriately jeri. Continue to monitor H&H. PPI. Underlying AVMs and ongoing anticoagulation is likely the reason for an ongoing anemia and dependency on transfusion for area. history of PE in November of 2021 diagnosed with lung scan. No venous duplex was done at the time. Repeat venous duplex subsequently has all been negative. This is the only time she had issue withVTE . Now with ongoing bleeding issues She is wheelchair-bound with limited ambulation and hence has underlying risk factors for DVT /PE May benefit from prophylactic dose rather for VTE risk 2.5 mg b.i.d. # hx of lung cancer s/p chemo and radiation in remission; follows oncologist in [facility] # COPD not in exacerbation. continue inhaler as home # HFpEF: compesnated fairly. monitor volume status # Chronic resp failure: on home oxygen 2 L at all times. # hx of stroke with right sided residual weakness, wheelchair bound # iron deficiency anemia hx. 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 on Protonix bid. capsule endoscopy negative. # ckd stage III # chronic anemia: needing blood transfusion intermittently. eliquis at home. which will be kept on hold. # pulmonary embolism: on eliquis # Seziure disorder; on keppra. no active seizure # DVT proph: SCDs # Code status: full code Subjective Date/time seen: 06/06/22 10:16 Interval history: Patient is a 71-year-old female with a history of COPD (on 2 L baseline), HFpEF, PE on Eliquis, hyperlipidemia, seizure disorder presenting with worsening shortness of breath and generalsied weakness. she is also had cough. she was here in april and had pneumoina at that time. she went to [facility] for 10 more days. she then recently had a egd/colonoscpy done on 05/29/2022 and had cauterisation done. she also had a video capsule endoscopy which she reports came back okay. she dneies any blood in her stool and also no dark stool. she was told she was low in the blood by her PCP yesterday. she asked her to go to the hospital. the blood were drawn a week ago. she d
[2022-06-06] MEDS: IRON SUCROSE COMPLEX 200 MG in SODIUM CHLORIDE 0.9% IV 50 ML 120 MG IVPB (10:21)
[2022-06-06] MEDS: rOPINIRole HCL 1 MG TABLET BY MOUTH ×2 (12:15→16:17)
--- NOTE | 2022-06-06 17:49 | PDONCCN ---
HPI - Date of Consult Date/Time: 06/06/22 17:49 Requesting Physician: Grupo Cabrales MD Primary Care Provider: Salima Donahue MD - Consult Narrative Reason for consult: Normocytic anemia Narrative: Teresa Levi is a 71 year old female with history of lung cancer 7 years ago status post chemotherapy and radiation therapy, history of congenitally absent 1 kidney, COPD, pulmonary embolism on Eliquis diagnosed in November of 2021 came into the hospital with shortness of breath and tiredness and fatigue. She denies any diarrhea constipation. She denies any melena hematochezia. Labs showed hemoglobin of 5.5. She denies being a vegetarian. Denies any previous history of stomach surgeries. She was taking oral iron but discontinued by the primary care physician previously. Patient had EGD and colonoscopy done on May 05 that showed colonic polyps, internal hemorrhoid and diverticulosis. EGD showed hiatal hernia and duodenal AVM. AVM was updated. Patient had capsule enteroscopy done on May 22 that came back unremarkable. Patient has received 2 units of packed red blood cell. Review of Systems - Review of Systems All systems reviewed & are unremarkable except as noted in HPI and [facility] Medical History: Medical History (Last Reviewed 06/05/22 @ 17:39 by Rose Marie Butterfield MD) Cerebrovascular accident Residual right-sided weakness. Chronic kidney disease, stage 3 Chronic obstructive pulmonary disease Depression with anxiety Diastolic congestive heart failure Diastolic dysfunction Dyslipidemia Hypertension Occult blood in stools Pulmonary embolism Onset Date: 11/2021 Seizure disorder Small cell lung cancer Status post chemoradiotherapy. Surgical History: Surgical History (Last Reviewed 06/05/22 @ 17:39 by Rose Marie Butterfield MD) History of abdominal aortic aneurysm repair History of cardiac catheterization History of heart artery stent History of incisional hernia repair History of inguinal hernia repair History of left nephrectomy At age 3, done for unclear reasons. Family History: Family History (Last Reviewed 06/05/22 @ 23:36 by Pooja Hawkins RN) Sibling Family history of arthritis Father Melanoma Mother No problems noted. - Social History Social History: Social History (Last Reviewed 06/05/22 @ 17:39 by Rose Marie Butterfield MD) Alcohol Use: Alcohol intake: never Alcohol use details: No alcohol since 2005. Substance Use: Substance use: never Substance use type: does not use Others: Spiritual care concerns: No Smoking Status: Smoking status: Former smoker Tobacco type: cigarettes Second hand tobacco smoke exposure: No Smoking end date: 09/14/05 Approximate Smoking End Date: stopped smoking 2016 Smoking Pack-years: Smoking packs per day: 1 Smoking cigarettes per day: 10 Years smoked: 20 Smoking pack-years: 10.00 Exam - Vital Signs Vital Signs - 24 hr 06/05/22 18:06 06/05/22 18:03 06/05/22 20:43 Temperature 36.7 C Pulse Rate 87 83 96 Respiratory Rate 20 12 20 Blood Pressure 130/67 100/78 Pulse Oximetry 100 95 Oxygen Delivery Oxygen Flow Rate 06/05/22 21:08 06/05/22 21:24 06/05/22 21:39 Temperature 36.7 C 36.7 C 37.0 C Pulse Rate 98 96 90 Respiratory Rate 20 22 H 20 Blood Pressure 124/65 106/77 126/61 Pulse Oximetry 95 96 97 Oxygen Delivery Oxygen Flow Rate 06/05/22 21:53 06/05/22 22:00 06/05/22 21:45 Temperature Pulse Rate 92 92 Respiratory Rate 18 26 H Blood Pressure 114/99 H 126/61 Pulse Oximetry 97 97 97 Oxygen Delivery Nasal Cannula Oxygen Flow Rate 3 06/05/22 21:30 06/05/22 21:00 06/05/22 20:50 Temperature Pulse Rate 91 92 92 Respiratory Rate 20 20 18 Blood Pressure 125/71 124/65 124/65 Pulse Oximetry 98 95 95 Oxygen Delivery Oxygen Flow Rate 06/05/22 20:37 06/05/22 20:30 06/05/22 20:00 Temperat
[2022-06-06] MEDS: IRON SUCROSE COMPLEX 500 MG in SODIUM CHLORIDE 0.9% IV 250 ML 78.57 MG IVPB (18:59)
[2022-06-06] MEDS: EPOETIN ALFA-EPBX 20,000 UNITS/ML VIAL 20000 UNITS SUB-Q (18:59)
[2022-06-06] MEDS: FLUTICASONE/SALMETEROL 230-21 MCG INHALER 1 PUFF 2 PUFF INHALATION (20:02)
--- NOTE | 2022-06-06 21:35 | PC.NURSE ---
Called report to LEON Newell. No report needed. [id number].
--- NOTE | 2022-06-06 21:59 | ADMGEN ---
This patient, Teresa Levi, was tranferd to [facility] surg Room 302 . Patient/family oriented to hospital policies and general routines including ID bracelet, bed and alarms, visiting hours, pain management, procedures, bathroom and other care routines, personal items, smoking policy, room service/diet, and visiting hours. Information on how to activate the Rapid Response Team has been discussed. Patient/Family are encouraged to report perceived risks to care and to ask questions if they do not understand what they are told or what they should do.
[2022-06-06] MEDS: MELATONIN 5 MG TABLET PO (22:04)
[2022-06-07] MEDS: ALPRAZolam (*CRX) 0.5 MG TABLET BY MOUTH ×2 (06:15→20:51)
[2022-06-07] MEDS: FLUTICASONE/SALMETEROL 230-21 MCG INHALER 1 PUFF 2 PUFF INHALATION ×2 (07:26→20:20)
[2022-06-07 08:00] VITALS: O2SAT 95
[2022-06-07] MEDS: UMECLIDINIUM BROMIDE 62.5 MCG ELLIPTA 1 PUFF INHALATION (08:07)
[2022-06-07] MEDS: GABAPENTIN 300 MG CAPSULE PO ×3 (08:11→16:46)
[2022-06-07] MEDS: PANTOPRAZOLE SODIUM IV 40 MG VIAL IV PUSH ×2 (08:11→20:52)
[2022-06-07] MEDS: ATORVASTATIN 40 MG TABLET PO (08:11)
[2022-06-07] MEDS: SPIRONOLACTONE 25 MG TABLET PO (08:12)
[2022-06-07] MEDS: rOPINIRole HCL 1 MG TABLET BY MOUTH ×3 (08:12→16:46)
[2022-06-07] MEDS: ESCITALOPRAM OXALATE 10 MG TABLET PO (08:12)
[2022-06-07] MEDS: MULTIVITAMINS THERAPEUTIC TAB (*BKC) 1 TABLET PO (08:12)
[2022-06-07] MEDS: levETIRAcetam 250 MG TABLET PO ×2 (08:12→20:51)
[2022-06-07] MEDS: FUROSEMIDE 40 MG TABLET PO ×2 (08:12→16:46)
[2022-06-07] MEDS: POTASSIUM CHLORIDE 20 MEQ TABLET.ER PO (08:12)
[2022-06-07 09:28] LABS: Basophils Percent Auto 0.3 % (0.2-1.2); Eosinophils Absolute Auto 0.1 K/mm3 (0-0.3); Eosinophils Percent Auto 1.3 % (0-4.4); Hematocrit 25.2 % (37.0-47.0); Hemoglobin 7.4 g/dL (12.0-15.0); Immature Granulocyte Absolute 0.17 K/mm3 (0.00-0.031); Immature Granulocyte Percent A 1.7 % (0-0.5); Lymphocytes Absolute Auto 0.93 K/mm3 (0.9-3.2); Lymphocytes Percent Auto 9.4 % (18.3-44.2); Mean Corpuscular HGB Conc 29.4 g/dl (32-36); Mean Corpuscular Volume 88.4 fl (80-100); Mean Platelet Volume 9.8 fl (7.4-10.4); Monocytes Percent Auto 9.9 % (2.6-8.5); Neutrophils Absolute Auto 7.6 K/mm3 (1.3-6.7); Neutrophils Percent Auto 77.4 % (45.5-73.1); Nucleated Red Blood Cells Absolute Auto 0.3 K/mm3 (0.0-0.012); Nucleated Red Blood Cells Perc 2.8 % (0.0-0.2); Platelet Count Result 298 k/mm3 (150-375); Red Blood Count 2.85 M/mm3 (4.2-5.4); Red Cell Distribution Width 18.6 % (11.5-14.5); White Blood Count 9.9 K/mm3 (4.5-10.0)
[2022-06-07 09:43] LABS: Alanine Aminotransferase 19 U/L (6-35); Albumin Level 3.2 g/dL (3.5-5.1); Alkaline Phosphatase 50 U/L (38-126); Anion Gap 9 mmol/L (8-16); Aspartate Amino Transferase 21 U/L (14-36); Bilirubin,Total 0.3 mg/dL (0.2-1.3); Blood Urea Nitrogen 33 mg/dL (7-17); Calcium 8.5 mg/dL (8.4-10.2); Carbon Dioxide 37 mmol/L (22-30); Chloride 98 mmol/L (98-107); Estimated CRCL calculation 37 ml/min; Estimated Glomerular Filt Rate 40; Glucose 103 mg/dL (65-110); Magnesium 1.9 mg/dL (1.6-2.3); Potassium 3.1 mmol/L (3.4-5.0); Sodium 144 mmol/L (137-145)
--- NOTE | 2022-06-07 10:26 | WPDGICN ---
Assessment and Plan Assessment and plan (1) Iron deficiency anemia: Code(s): D50.9 - Iron deficiency anemia, unspecified Status: Acute Assessment and Plan: the dropping ferritin suggest chronic blood loss anemia. Dr. Millard has just completed and investigation with upper endoscopy, colonoscopy, and small-bowel capsule endoscopy with the only finding being a small AVM in the duodenum that was obliterated. (2) Occult blood in stools: Code(s): R19.5 - Other fecal abnormalities Status: Acute Assessment and Plan: positive Hemoccult could be caused by a number of factors and is not unlikely in a patient who is anticoagulated. Considering her significant drop in blood counts however 1 would have to assume that she has some sort of blood loss anemia although there are no overt signs of it. (3) Pulmonary embolism: Onset Date: 11/2021 Code(s): I26.99 - Other pulmonary embolism without acute cor pulmonale Status: Acute Assessment and Plan: Given the recent diagnosis of pulmonary embolism she is anticoagulated. (4) Chronic anticoagulation: Code(s): Z79.01 - snf (current) use of anticoagulants Status: Acute Assessment and Plan: Given that these significant drops in her blood count began after she was placed on anticoagulant, it is suspicious for possible minute source of bleeding not found on previous investigation. (5) Chronic kidney disease, stage 3: Code(s): N18.30 - Chronic kidney disease, stage 3 unspecified Status: Acute Assessment and Plan: This could be slight factor her anemia although would not explain her low ferritin Plan I would discussed with Dr. Millard to see if he would like to repeat endoscopic examination. GI Consult Note Consult date/time: 06/07/22 10:26 HPI: Teresa Levi is a 71 year old female with a complicated medical history was admitted this time because of marked weakness, shortness of breath, and fatigue. Dr. Millard has recently evaluated her and we are asked to see her again at this time. She was found to be markedly anemic with hemoglobin of 5.5. She was admitted just over 1 month ago with a similar situation and underwent endoscopic investigation which revealed a small duodenal AVM which was cauterized. Colonoscopy did not show any thing that would explain anemia. Subsequent capsule endoscopy done by Dr. Millard was also normal. She has not seen blood in her stools. She has not had black or tarry stools. She is not having any acute gastrointestinal symptoms at this time. She has a history of having had a pulmonary embolism 5 months ago for which reason she is on apixaban. She has history of lung cancer treated with chemotherapy and radiation. She does have COPD for which she is on oxygen. She also has a history of abdominal aortic aneurysm repair and cardiac stents placed. Her serum ferritin, which was 187 a year ago dropped to 11 last month and is 5 now. She has been seen i n consultation by , oncologist, who is planning continuing investigation as an outpatient. Review of Systems Review of Systems: All systems reviewed & are unremarkable except as noted in HPI and below PMFSH Past Medical History Medical History Cerebrovascular accident Residual right-sided weakness. Chronic kidney disease, stage 3 Chronic obstructive pulmonary disease Depression with anxiety Diastolic congestive heart failure Diastolic dysfunction Dyslipidemia Hypertension Occult blood in stools Pulmonary embolism (11/2021) Seizure disorder Small cell lung cancer Status post chemoradiotherapy. Surgical History Surgical History History of abdominal aortic aneurysm repair History of cardiac catheterization History of heart artery stent History of incisional hernia r
[2022-06-07 11:50] LABS: Platelet Estimate Adequate (Adequate)
[2022-06-07 11:51] LABS: Anisocytosis 2+ (NORMAL); Hypochromasia 2+ (NORMAL); Poikilocytosis 1+ (NORMAL)
[2022-06-07 11:54] LABS: Ovalocytes 1+ (NORMAL)
[2022-06-07 11:55] LABS: Schistocytes None Seen (NORMAL)
--- NOTE | 2022-06-07 13:35 | PM.IMPN ---
Progress Note: A&P Assessment and Plan (1) Weakness: Code(s): R53.1 - Weakness Status: Acute (2) Acute blood loss anemia: Code(s): D62 - Acute posthemorrhagic anemia Status: Acute (3) Diastolic congestive heart failure: Qualifiers: Heart failure chronicity: acute on chronic Qualified Code(s): I50.33 - Acute on chronic diastolic (congestive) heart failure Code(s): I50.30 - Unspecified diastolic (congestive) heart failure Status: Acute (4) Seizure disorder: Code(s): G40.909 - Epilepsy, unspecified, not intractable, without status epilepticus Status: Chronic (5) GI bleed: Code(s): K92.2 - Gastrointestinal hemorrhage, unspecified Status: Acute (6) Chronic obstructive pulmonary disease: Qualifiers: COPD type: COPD with acute exacerbation Qualified Code(s): J44.1 - Chronic obstructive pulmonary disease with (acute) exacerbation Code(s): J44.9 - Chronic obstructive pulmonary disease, unspecified Status: Acute (7) Chronic kidney disease, stage 3: Code(s): N18.30 - Chronic kidney disease, stage 3 unspecified Status: Acute (8) Pulmonary embolism: Onset Date: 11/2021 Code(s): I26.99 - Other pulmonary embolism without acute cor pulmonale Status: Acute (9) Dyslipidemia: Code(s): E78.5 - Hyperlipidemia, unspecified Status: Acute (10) Diastolic dysfunction: Code(s): I51.89 - Other ill-defined heart diseases Status: Acute Plan # generalsied weaknesss/progressvie shortness: noted to have severe anemia. Improved with transfusion # severe anemia: acute on chornic: hb down to 5.5. hb 9.5 05/26 transfuse two units prbc. lasix in between. no signs of blood loss noted. recent EGD and colonoscpy with AVM s/p APC. PPI bid. ongoing gi bleed vs other etiologies. hematology consulted. Post transfusion hemoglobin appropriately jeri. Continue to monitor H&H. PPI. Underlying AVMs and ongoing anticoagulation is likely the reason for an ongoing anemia and dependency on transfusion for area. history of PE in November of 2021 diagnosed with lung scan. No venous duplex was done at the time. Repeat venous duplex subsequently has all been negative. This is the only time she had issue withVTE . Now with ongoing bleeding issues She is wheelchair-bound with limited ambulation and hence has underlying risk factors for DVT /PE Discussed with the going off anticoagulation as she has completed full course of anticoagulation treatment for her were 1 time diagnosis of PE. Family is agreeable with the plan Also started on Epogen by Hematology for her anemia related to anemia of chronic disease with underlying CKD stage III Dr. Millard to see in a.m. if repeat scopes are needed which I doubt unless the H&H continues to drop again This was discussed with the family and patient. I am hopeful with and discontinued on anticoagulation the problem of ongoing bleed intermittently will resolve. # hx of lung cancer s/p chemo and radiation in remission; follows oncologist in [facility]. No evidence of active cancer # COPD not in exacerbation. continue inhaler as home # HFpEF: compesnated fairly. monitor volume status # Chronic resp failure: on home oxygen 2 L at all times. # hx of stroke with right sided residual weakness, wheelchair bound # iron deficiency anemia hx. 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 on Protonix bid. capsule endoscopy negative. # ckd stage III # chronic anemia: needing blood transfusion intermittently. eliquis at home. which will be kept on hold. # pulmonary embolism: on eliquis. Will stop as this was only 1 episode of PE that was diagnosed in November of 2021. Venous duplex was not done at that time but subsequent venous duplex x2 has been negative # Seziure disorder; on keppra. no active seizure # DVT proph: SCDs # Code status: full code Subjective
[2022-06-07 14:00] VITALS: BP 102/53; PULSE 82; RESP 18; TEMP 36.2; O2SAT 97
[2022-06-07 14:14] VITALS: BP 102/64
[2022-06-07] MEDS: POTASSIUM CHLORIDE 20 MEQ TABLET 40 MEQ PO (14:59)
[2022-06-07 20:20] VITALS: PULSE 83; RESP 16; O2SAT 92
[2022-06-07 20:33] VITALS: PULSE 85; RESP 18
[2022-06-07] MEDS: MELATONIN 5 MG TABLET PO (20:51)
[2022-06-07 22:00] VITALS: BP 116/63; PULSE 84; RESP 19; TEMP 36.4; O2SAT 98
[2022-06-08] VITALS (7 sets, daily range): BP systolic 94–123; BP diastolic 51–62; PULSE 66–83; RESP 16–22; TEMP 36.3–37.1; O2SAT 92–97
[2022-06-08 06:24] LABS: Basophils Percent Auto 0.4 % (0.2-1.2); Eosinophils Absolute Auto 0.2 K/mm3 (0-0.3); Eosinophils Percent Auto 1.9 % (0-4.4); Hematocrit 25.4 % (37.0-47.0); Hemoglobin 7.4 g/dL (12.0-15.0); Immature Granulocyte Absolute 0.35 K/mm3 (0.00-0.031); Immature Granulocyte Percent A 3.8 % (0-0.5); Lymphocytes Percent Auto 12.9 % (18.3-44.2); Mean Corpuscular HGB Conc 29.1 g/dl (32-36); Mean Corpuscular Hemoglobin 25.9 pg (26-34); Mean Corpuscular Volume 88.8 fl (80-100); Mean Platelet Volume 9.9 fl (7.4-10.4); Monocytes Absolute Auto 0.9 K/mm3 (0.1-0.6); Monocytes Percent Auto 9.7 % (2.6-8.5); Neutrophils Absolute Auto 6.6 K/mm3 (1.3-6.7); Neutrophils Percent Auto 71.3 % (45.5-73.1); Nucleated Red Blood Cells Absolute Auto 0.3 K/mm3 (0.0-0.012); Nucleated Red Blood Cells Perc 3.6 % (0.0-0.2); Platelet Count Result 316 k/mm3 (150-375); Red Blood Count 2.86 M/mm3 (4.2-5.4); Red Cell Distribution Width 19.1 % (11.5-14.5); White Blood Count 9.3 K/mm3 (4.5-10.0)
[2022-06-08 06:48] LABS: Alanine Aminotransferase 20 U/L (6-35); Albumin Level 3.1 g/dL (3.5-5.1); Alkaline Phosphatase 60 U/L (38-126); Anion Gap 7 mmol/L (8-16); Aspartate Amino Transferase 24 U/L (14-36); Bilirubin,Total 0.4 mg/dL (0.2-1.3); Blood Urea Nitrogen 29 mg/dL (7-17); Calcium 8.6 mg/dL (8.4-10.2); Carbon Dioxide 33 mmol/L (22-30); Chloride 99 mmol/L (98-107); Estimated CRCL calculation 40 ml/min; Estimated Glomerular Filt Rate 44; Glucose 85 mg/dL (65-110); Magnesium 1.8 mg/dL (1.6-2.3); Potassium 3.6 mmol/L (3.4-5.0); Sodium 139 mmol/L (137-145)
[2022-06-08 07:29] LABS: Anisocytosis 1+ (NORMAL); Platelet Estimate Adequate (Adequate)
[2022-06-08 07:30] LABS: Hypochromasia 1+ (NORMAL); Ovalocytes 1+ (NORMAL); Schistocytes None Seen (NORMAL)
[2022-06-08] MEDS: FLUTICASONE/SALMETEROL 230-21 MCG INHALER 1 PUFF 2 PUFF INHALATION ×2 (07:54→20:03)
[2022-06-08] MEDS: UMECLIDINIUM BROMIDE 62.5 MCG ELLIPTA 1 PUFF INHALATION (07:54)
[2022-06-08] MEDS: GABAPENTIN 300 MG CAPSULE PO ×3 (08:38→17:02)
[2022-06-08] MEDS: ATORVASTATIN 40 MG TABLET PO (08:38)
[2022-06-08] MEDS: FUROSEMIDE 40 MG TABLET PO ×2 (08:38→17:02)
[2022-06-08] MEDS: PANTOPRAZOLE SODIUM IV 40 MG VIAL IV PUSH ×2 (08:38→20:37)
[2022-06-08] MEDS: rOPINIRole HCL 1 MG TABLET BY MOUTH ×3 (08:38→17:02)
[2022-06-08] MEDS: SPIRONOLACTONE 25 MG TABLET PO (08:38)
[2022-06-08] MEDS: MULTIVITAMINS THERAPEUTIC TAB (*BKC) 1 TABLET PO (08:38)
[2022-06-08] MEDS: ESCITALOPRAM OXALATE 10 MG TABLET PO (08:38)
[2022-06-08] MEDS: levETIRAcetam 250 MG TABLET PO ×2 (08:38→20:37)
[2022-06-08] MEDS: POTASSIUM CHLORIDE 20 MEQ TABLET.ER PO (08:38)
--- NOTE | 2022-06-08 08:52 | WPDGIPROGNO ---
Progress Note: A&P Assessment and Plan (1) Occult blood in stools: Code(s): R19.5 - Other fecal abnormalities Status: Acute Assessment and Plan: ? positive Hemoccult could be caused? by a number of factors and is not unlikely in a patient who is anticoagulated.? Considering her significant drop in blood counts however 1 would have to assume that she has some sort of blood loss anemia although there are no overt signs of it. (2) Iron deficiency anemia: Code(s): D50.9 - Iron deficiency anemia, unspecified Status: Acute Assessment and Plan: I believe that if she is able to stay off Eliquis that there is a very high probability that she would not have further drop in her blood counts. Therefore this point we will not plan further diagnostic studies such as endoscopy for the time being. 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 Plan From my perspective, she can be discharged. Subjective Date/time seen: Teresa Levi is a 71 year old female? with a complicated medical history was admitted this time because of marked weakness, shortness of breath, and fatigue. ? Dr. Millard has recently evaluated her and we are asked to see her again at this time. She was found to be markedly anemic with hemoglobin of 5.5.? She was admitted just over 1 month ago with a similar situation and underwent endoscopic investigation which revealed a small duodenal? AVM which was cauterized.? Colonoscopy did not show any thing that would explain anemia.? Subsequent capsule endoscopy done by Dr. Millard was also normal.? She has not seen blood in her stools.? She has not had black or tarry stools.? She is not having any acute gastrointestinal? symptoms at this time.? She has a history of having had a pulmonary embolism 5 months ago for which reason she is on apixaban.? She has history of lung cancer treated with chemotherapy and radiation.? She does have COPD for which she is on oxygen.? She also has a history of abdominal aortic aneurysm repair and cardiac stents placed. ? Her serum ferritin, which was 187 a year ago dropped to 11 last month and is 5 now.? She has been seen i n consultation by ,? oncologist, who is planning? continuing investigation as an outpatient 06/08/22 08:52 Hemoglobin is remaining stable off Eliquis. It appears that all are in agreement that she could stay to discontinue it at this time which I think will significantly decrease the chance of further drop in her counts. Exam Const: General: comfortable and alert; No acute distress Nutritional Appearance: average body habitus Orientation/consciousness: patient oriented x3 Resp: Auscultation: clear to auscultation bilaterally Cardio: Rhythm: regular rhythm GI: Inspection: normal to inspection GI Palp: Yes Soft to palpation, No Tenderness to palpation present (GI), Yes No hepatosplenomegaly present and Yes Hernia present ( large ventral hernia) Auscultation: normal bowel sounds Skin: General skin exam: ecchymosis ( Multiple ecchymoses on upper extremities), no petechiae and pallor Neuro: General: patient oriented x3 Objective Data Vital Signs Vital Signs: Vital Signs - 24 hr 06/07/22 10:20 06/07/22 14:00 06/07/22 14:14 Temperature 36.2 C L Pulse Rate 82 Respiratory Rate 18 Blood Pressure 102/53 L 102/64 Pulse Oximetry 97 Oxygen Delivery Nasal Cannula Oxygen Flow Rate 2 06/07/22 20:20 06/07/22 20:20 06/07/22 20:33 Temperature Pulse Rate 83 83 85 Respiratory Rate 16 16 18 Blood Pressure Pulse Oximetry 92 Oxygen Delivery Nasal Cannula Oxygen Flow Rate 2 06/07/22 22:00 06/08/22 07:55 06/08/22 06:00 Temperature 36.4 C L 37.1 C Pulse Rate 84 80 66 Respiratory Rate 19 22 H Blood Pressure 116/63 123/58
--- NOTE | 2022-06-08 15:19 | PM.IMPN ---
Progress Note: A&P Assessment and Plan (1) Weakness: Code(s): R53.1 - Weakness Status: Acute (2) Acute blood loss anemia: Code(s): D62 - Acute posthemorrhagic anemia Status: Acute (3) Diastolic congestive heart failure: Qualifiers: Heart failure chronicity: acute on chronic Qualified Code(s): I50.33 - Acute on chronic diastolic (congestive) heart failure Code(s): I50.30 - Unspecified diastolic (congestive) heart failure Status: Acute (4) Seizure disorder: Code(s): G40.909 - Epilepsy, unspecified, not intractable, without status epilepticus Status: Chronic (5) GI bleed: Code(s): K92.2 - Gastrointestinal hemorrhage, unspecified Status: Acute (6) Chronic obstructive pulmonary disease: Qualifiers: COPD type: COPD with acute exacerbation Qualified Code(s): J44.1 - Chronic obstructive pulmonary disease with (acute) exacerbation Code(s): J44.9 - Chronic obstructive pulmonary disease, unspecified Status: Acute (7) Chronic kidney disease, stage 3: Code(s): N18.30 - Chronic kidney disease, stage 3 unspecified Status: Acute (8) Pulmonary embolism: Onset Date: 11/2021 Code(s): I26.99 - Other pulmonary embolism without acute cor pulmonale Status: Acute (9) Dyslipidemia: Code(s): E78.5 - Hyperlipidemia, unspecified Status: Acute (10) Diastolic dysfunction: Code(s): I51.89 - Other ill-defined heart diseases Status: Acute Plan # generalsied weaknesss/progressvie shortness: noted to have severe anemia. Improved with transfusion # severe anemia: acute on chronic: hb down to 5.5. hb 9.5 05/26 transfuse two units prbc. lasix in between. no signs of blood loss noted. recent EGD and colonoscpy with AVM s/p APC. PPI bid. ongoing gi bleed vs other etiologies. hematology consulted. Post transfusion hemoglobin appropriately jeri. Continue to monitor H&H. PPI. Underlying AVMs and ongoing anticoagulation is likely the reason for an ongoing anemia and dependency on transfusion for area. history of PE in November of 2021 diagnosed with lung scan. No venous duplex was done at the time. Repeat venous duplex subsequently has all been negative. This is the only time she had issue with VTE . Now with ongoing bleeding issues She is wheelchair-bound with limited ambulation and hence has underlying risk factors for DVT /PE Discussed with going off anticoagulation as she has completed full course of anticoagulation treatment for her were 1 time diagnosis of PE. Family is agreeable with the plan Also started on Epogen by Hematology for her anemia related to anemia of chronic disease with underlying CKD stage III Dr. Millard to see in a.m. if repeat scopes are needed which I doubt unless the H&H continues to drop again This was discussed with the family and patient. I am hopeful with that with anticoagulation discontinued, the problem of ongoing bleed intermittently will resolve. # hx of lung cancer s/p chemo and radiation in remission; follows oncologist in [facility]. No evidence of active cancer # COPD not in exacerbation. continue inhaler as home # HFpEF: compesnated fairly. monitor volume status # Chronic resp failure: on home oxygen 2 L at all times. # hx of stroke with right sided residual weakness, wheelchair bound # iron deficiency anemia hx. 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 on Protonix bid. capsule endoscopy negative. # ckd stage III # chronic anemia: needing blood transfusion intermittently. eliquis at home. which will be kept on hold. # pulmonary embolism: on eliquis. Will stop as this was only 1 episode of PE that was diagnosed in November of 2021. Venous duplex was not done at that time but subsequent venous duplex x2 has been negative # Seizure disorder; on keppra. no active seizure # DVT proph: SCDs # Code status: full code Subject
[2022-06-08] MEDS: MELATONIN 5 MG TABLET PO (20:42)
[2022-06-09 06:00] VITALS: BP 103/54; PULSE 77; RESP 20; TEMP 36.6; O2SAT 97
[2022-06-09 06:43] LABS: Basophils Percent Auto 0.5 % (0.2-1.2); Eosinophils Absolute Auto 0.1 K/mm3 (0-0.3); Eosinophils Percent Auto 1.5 % (0-4.4); Hematocrit 26.6 % (37.0-47.0); Hemoglobin 7.5 g/dL (12.0-15.0); Immature Granulocyte Absolute 0.32 K/mm3 (0.00-0.031); Immature Granulocyte Percent A 3.7 % (0-0.5); Lymphocytes Absolute Auto 1.23 K/mm3 (0.9-3.2); Lymphocytes Percent Auto 14.4 % (18.3-44.2); Mean Corpuscular HGB Conc 28.2 g/dl (32-36); Mean Corpuscular Hemoglobin 25.9 pg (26-34); Mean Corpuscular Volume 91.7 fl (80-100); Mean Platelet Volume 9.9 fl (7.4-10.4); Monocytes Absolute Auto 0.7 K/mm3 (0.1-0.6); Monocytes Percent Auto 8.6 % (2.6-8.5); Neutrophils Absolute Auto 6.1 K/mm3 (1.3-6.7); Neutrophils Percent Auto 71.3 % (45.5-73.1); Nucleated Red Blood Cells Absolute Auto 0.4 K/mm3 (0.0-0.012); Nucleated Red Blood Cells Perc 4.3 % (0.0-0.2); Platelet Count Result 342 k/mm3 (150-375); Red Cell Distribution Width 19.7 % (11.5-14.5); White Blood Count 8.6 K/mm3 (4.5-10.0)
[2022-06-09 06:54] LABS: Alanine Aminotransferase 20 U/L (6-35); Alkaline Phosphatase 62 U/L (38-126); Anion Gap 4 mmol/L (8-16); Aspartate Amino Transferase 24 U/L (14-36); Bilirubin,Total 0.3 mg/dL (0.2-1.3); Blood Urea Nitrogen 23 mg/dL (7-17); Calcium 8.5 mg/dL (8.4-10.2); Carbon Dioxide 38 mmol/L (22-30); Chloride 97 mmol/L (98-107); Estimated CRCL calculation 35 ml/min; Estimated Glomerular Filt Rate 37; Glucose 90 mg/dL (65-110); Magnesium 1.8 mg/dL (1.6-2.3); Potassium 3.6 mmol/L (3.4-5.0); Sodium 139 mmol/L (137-145)
[2022-06-09] MEDS: UMECLIDINIUM BROMIDE 62.5 MCG ELLIPTA 1 PUFF INHALATION (07:46)
[2022-06-09] MEDS: FLUTICASONE/SALMETEROL 230-21 MCG INHALER 1 PUFF 2 PUFF INHALATION ×2 (07:46→20:30)
[2022-06-09 07:49] VITALS: PULSE 79; RESP 18; O2SAT 96
[2022-06-09] MEDS: rOPINIRole HCL 1 MG TABLET BY MOUTH ×3 (09:20→17:03)
[2022-06-09] MEDS: MULTIVITAMINS THERAPEUTIC TAB (*BKC) 1 TABLET PO (09:20)
[2022-06-09] MEDS: ATORVASTATIN 40 MG TABLET PO (09:21)
[2022-06-09] MEDS: SPIRONOLACTONE 25 MG TABLET PO (09:21)
[2022-06-09] MEDS: GABAPENTIN 300 MG CAPSULE PO ×3 (09:21→17:03)
[2022-06-09] MEDS: levETIRAcetam 250 MG TABLET PO ×2 (09:21→21:14)
[2022-06-09] MEDS: FUROSEMIDE 40 MG TABLET PO ×2 (09:21→17:03)
[2022-06-09] MEDS: ESCITALOPRAM OXALATE 10 MG TABLET PO (09:21)
[2022-06-09] MEDS: POTASSIUM CHLORIDE 20 MEQ TABLET.ER PO (09:22)
[2022-06-09] MEDS: PANTOPRAZOLE SODIUM IV 40 MG VIAL IV PUSH ×2 (09:22→21:15)
--- NOTE | 2022-06-09 11:44 | PM.IMPN ---
Progress Note: A&P Assessment and Plan (1) Weakness: Code(s): R53.1 - Weakness Status: Acute (2) Acute blood loss anemia: Code(s): D62 - Acute posthemorrhagic anemia Status: Acute (3) Diastolic congestive heart failure: Qualifiers: Heart failure chronicity: acute on chronic Qualified Code(s): I50.33 - Acute on chronic diastolic (congestive) heart failure Code(s): I50.30 - Unspecified diastolic (congestive) heart failure Status: Acute (4) Seizure disorder: Code(s): G40.909 - Epilepsy, unspecified, not intractable, without status epilepticus Status: Chronic (5) GI bleed: Code(s): K92.2 - Gastrointestinal hemorrhage, unspecified Status: Acute (6) Chronic obstructive pulmonary disease: Qualifiers: COPD type: COPD with acute exacerbation Qualified Code(s): J44.1 - Chronic obstructive pulmonary disease with (acute) exacerbation Code(s): J44.9 - Chronic obstructive pulmonary disease, unspecified Status: Acute (7) Chronic kidney disease, stage 3: Code(s): N18.30 - Chronic kidney disease, stage 3 unspecified Status: Acute (8) Pulmonary embolism: Onset Date: 11/2021 Code(s): I26.99 - Other pulmonary embolism without acute cor pulmonale Status: Acute (9) Dyslipidemia: Code(s): E78.5 - Hyperlipidemia, unspecified Status: Acute (10) Diastolic dysfunction: Code(s): I51.89 - Other ill-defined heart diseases Status: Acute Plan # generalsied weaknesss/progressvie shortness: noted to have severe anemia. Improved with transfusion # severe anemia: acute on chronic: hb down to 5.5. hb 9.5 05/26 transfuse two units prbc. lasix in between. no signs of blood loss noted. recent EGD and colonoscpy with AVM s/p APC. PPI bid. ongoing gi bleed vs other etiologies. hematology consulted. Post transfusion hemoglobin appropriately jeri. Continue to monitor H&H. PPI. Underlying AVMs and ongoing anticoagulation is likely the reason for an ongoing anemia and dependency on transfusion for area. history of PE in November of 2021 diagnosed with lung scan. No venous duplex was done at the time. Repeat venous duplex subsequently has all been negative. This is the only time she had issue with VTE . Now with ongoing bleeding issues She is wheelchair-bound with limited ambulation and hence has underlying risk factors for DVT /PE Discussed with going off anticoagulation as she has completed full course of anticoagulation treatment for her were 1 time diagnosis of PE. Family is agreeable with the plan Also started on Epogen by Hematology for her anemia related to anemia of chronic disease with underlying CKD stage III Dr. Millard to see in a.m. if repeat scopes are needed which I doubt unless the H&H continues to drop again This was discussed with the family and patient. I am hopeful with that with anticoagulation discontinued, the problem of ongoing bleed intermittently will resolve. Discussed with Dr. Millard he will evaluate and discuss # hx of lung cancer s/p chemo and radiation in remission; follows oncologist in [facility]. No evidence of active cancer # COPD not in exacerbation. continue inhaler as home # HFpEF: compesnated fairly. monitor volume status # Chronic resp failure: on home oxygen 2 L at all times. # hx of stroke with right sided residual weakness, wheelchair bound # iron deficiency anemia hx. 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 on Protonix bid. capsule endoscopy negative. # ckd stage III # chronic anemia: needing blood transfusion intermittently. eliquis at home. which will be discontinued now # pulmonary embolism: on eliquis. Will stop as this was only 1 episode of PE that was diagnosed in November of 2021. Venous duplex was not done at that time but subsequent venous duplex x2 has been negative # Seizure disorder; on keppra. no a
[2022-06-09 14:00] VITALS: BP 101/53; PULSE 91; RESP 19; TEMP 37.2; O2SAT 95
[2022-06-09 20:30] VITALS: PULSE 84; RESP 18; O2SAT 97
[2022-06-09 20:45] VITALS: O2SAT 97
[2022-06-09] MEDS: MELATONIN 5 MG TABLET PO (21:14)
[2022-06-09 22:00] VITALS: BP 112/63; PULSE 85; RESP 16; TEMP 35.8; O2SAT 100
[2022-06-10 05:58] LABS: Basophils Percent Auto 0.5 % (0.2-1.2); Eosinophils Absolute Auto 0.2 K/mm3 (0-0.3); Hematocrit 27.2 % (37.0-47.0); Hemoglobin 7.7 g/dL (12.0-15.0); Immature Granulocyte Absolute 0.36 K/mm3 (0.00-0.031); Immature Granulocyte Percent A 4.3 % (0-0.5); Lymphocytes Percent Auto 16.5 % (18.3-44.2); Mean Corpuscular HGB Conc 28.3 g/dl (32-36); Mean Corpuscular Hemoglobin 26.1 pg (26-34); Mean Corpuscular Volume 92.2 fl (80-100); Mean Platelet Volume 9.7 fl (7.4-10.4); Monocytes Absolute Auto 0.7 K/mm3 (0.1-0.6); Monocytes Percent Auto 8.5 % (2.6-8.5); Neutrophils Absolute Auto 5.8 K/mm3 (1.3-6.7); Neutrophils Percent Auto 68.2 % (45.5-73.1); Nucleated Red Blood Cells Absolute Auto 0.1 K/mm3 (0.0-0.012); Nucleated Red Blood Cells Perc 1.2 % (0.0-0.2); Platelet Count Result 381 k/mm3 (150-375); Red Blood Count 2.95 M/mm3 (4.2-5.4); Red Cell Distribution Width 21.2 % (11.5-14.5); White Blood Count 8.5 K/mm3 (4.5-10.0)
[2022-06-10 06:00] VITALS: BP 100/63; PULSE 71; RESP 18; TEMP 36.6; O2SAT 98
[2022-06-10 06:17] LABS: Alanine Aminotransferase 20 U/L (6-35); Alkaline Phosphatase 60 U/L (38-126); Anion Gap 4 mmol/L (8-16); Aspartate Amino Transferase 23 U/L (14-36); Bilirubin,Total 0.4 mg/dL (0.2-1.3); Blood Urea Nitrogen 20 mg/dL (7-17); Calcium 8.3 mg/dL (8.4-10.2); Carbon Dioxide 37 mmol/L (22-30); Chloride 96 mmol/L (98-107); Estimated CRCL calculation 37 ml/min; Estimated Glomerular Filt Rate 40; Glucose 87 mg/dL (65-110); Magnesium 1.8 mg/dL (1.6-2.3); Potassium 3.6 mmol/L (3.4-5.0); Sodium 137 mmol/L (137-145)
[2022-06-10 06:39] LABS: Anisocytosis 1+ (NORMAL); Hypochromasia 1+ (NORMAL); Microcytosis 1+ (NORMAL)
[2022-06-10 06:48] LABS: Schistocytes None Seen (NORMAL)
[2022-06-10] MEDS: FLUTICASONE/SALMETEROL 230-21 MCG INHALER 1 PUFF 2 PUFF INHALATION (08:06)
[2022-06-10] MEDS: UMECLIDINIUM BROMIDE 62.5 MCG ELLIPTA 1 PUFF INHALATION (08:06)
[2022-06-10 08:07] VITALS: O2SAT 96
[2022-06-10] MEDS: rOPINIRole HCL 1 MG TABLET BY MOUTH ×3 (08:43→16:47)
[2022-06-10] MEDS: GABAPENTIN 300 MG CAPSULE PO ×3 (08:43→16:47)
[2022-06-10] MEDS: levETIRAcetam 250 MG TABLET PO ×2 (08:43→20:23)
[2022-06-10] MEDS: POTASSIUM CHLORIDE 20 MEQ TABLET.ER PO (08:43)
[2022-06-10] MEDS: SPIRONOLACTONE 25 MG TABLET PO (08:43)
[2022-06-10] MEDS: FUROSEMIDE 40 MG TABLET PO ×2 (08:43→16:47)
[2022-06-10] MEDS: ATORVASTATIN 40 MG TABLET PO (08:43)
[2022-06-10] MEDS: MULTIVITAMINS THERAPEUTIC TAB (*BKC) 1 TABLET PO (08:44)
[2022-06-10] MEDS: PANTOPRAZOLE SODIUM IV 40 MG VIAL IV PUSH (08:44)
[2022-06-10] MEDS: ESCITALOPRAM OXALATE 10 MG TABLET PO (08:44)
[2022-06-10 08:45] VITALS: O2SAT 97
[2022-06-10 13:45] VITALS: BP 106/59; PULSE 95; RESP 12; TEMP 36.9; O2SAT 96
--- NOTE | 2022-06-10 13:54 | PM.DS ---
DS: Admitting Diagnosis Discharge Date 06/10/2022 Admitting Diagnosis acute on chronic anemia DS: Discharge Diagnosis Discharge Diagnosis (1) Weakness: Code(s): R53.1 - Weakness Status: Acute (2) Acute blood loss anemia: Code(s): D62 - Acute posthemorrhagic anemia Status: Acute (3) Diastolic congestive heart failure: Qualifiers: Heart failure chronicity: acute on chronic Qualified Code(s): I50.33 - Acute on chronic diastolic (congestive) heart failure Code(s): I50.30 - Unspecified diastolic (congestive) heart failure Status: Acute (4) Seizure disorder: Code(s): G40.909 - Epilepsy, unspecified, not intractable, without status epilepticus Status: Chronic (5) GI bleed: Code(s): K92.2 - Gastrointestinal hemorrhage, unspecified Status: Acute (6) Chronic obstructive pulmonary disease: Qualifiers: COPD type: COPD with acute exacerbation Qualified Code(s): J44.1 - Chronic obstructive pulmonary disease with (acute) exacerbation Code(s): J44.9 - Chronic obstructive pulmonary disease, unspecified Status: Acute (7) Chronic kidney disease, stage 3: Code(s): N18.30 - Chronic kidney disease, stage 3 unspecified Status: Acute (8) Pulmonary embolism: Onset Date: 11/2021 Code(s): I26.99 - Other pulmonary embolism without acute cor pulmonale Status: Acute (9) Dyslipidemia: Code(s): E78.5 - Hyperlipidemia, unspecified Status: Acute (10) Diastolic dysfunction: Code(s): I51.89 - Other ill-defined heart diseases Status: Acute DS: Summary Hospital Course Hospital Course: # generalsied weaknesss/progressvie shortness: noted to have severe anemia.? Improved with transfusion # severe anemia: acute on chronic: hb down to 5.5. hb 9.5 05/26 transfuse two units prbc. lasix in between. no signs of blood loss noted. recent EGD and colonoscpy with AVM s/p APC. PPI bid. ongoing gi bleed vs other etiologies. hematology consulted.? Post transfusion hemoglobin appropriately jeri.? Continue to monitor H&H.? PPI.? Underlying AVMs and ongoing anticoagulation is likely the reason for an ongoing anemia and dependency on transfusion for anemia. ? history of PE in? November of 2021 diagnosed with lung scan.? No venous duplex was done at the time.? Repeat venous duplex subsequently has all been negative.? ? This is the only time she had issue with VTE .? Now with ongoing bleeding issues . While she does have risk factors for DVT/ PE due to wheelchair-bound limited ambulation. Discussed pros and cons with ongoing anticoagulation and adequate treatment for 1 episode of PE. Discuss going off anticoagulation due to ongoing GI bleed and severe anemia and family agreeable with the plan. A hopeful that anticoagulation discontinued the problem 1 going bleed intermittently will resolve. H&H monitored throughout the hospital stay and remained stable. She was also seen by liaison officer and was started on Epogen for anemia related to anemia of chronic disease with underlying CKD stage 3. # hx of lung cancer s/p chemo and radiation in remission; follows oncologist in [facility].? No evidence of active cancer # COPD not in exacerbation. continue inhaler as home # HFpEF: compesnated fairly. monitor volume status # Chronic resp failure: on home oxygen 2 L at all times. # hx of stroke with right sided residual weakness, wheelchair bound # iron deficiency anemia hx.? 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 on Protonix bid. capsule endoscopy negative. # ckd stage III # chronic anemia: needing blood transfusion intermittently. eliquis at home. which will be? discontinued now # pulmonary embolism: on eliquis.? Will stop as this was only 1 episode of PE that was diagnosed in November of 2021.? Venous duplex was not done at that time but subsequent venous duplex x2 has been negative # Seizure disorder; o
[2022-06-10 16:14] LABS: EDCOVIDSCREEN Negative (Negative)
[2022-06-10] MEDS: MELATONIN 5 MG TABLET PO (20:24)
== END 2022-06-10 20:40 | disposition home health service (06) | DRG 811 ==
LOC: ANHED 16:56 → ANHIMU 21:43 → ANH3MEDSUR 06-06 22:34
PROVIDERS: Emergency Medicine; Admitting Provider Internal Medicine; Emergency Provider Emergency Medicine; PCP Internal Medicine; Visit Provider Internal Medicine
DX: D62 Acute posthemorrhagic anemia (principal); I50.33 Acute on chronic diastolic (congestive) heart failure; K92.2 Gastrointestinal hemorrhage, unspecified; I13.0 Hypertensive heart and chronic kidney disease with heart failure and stage 1 through stage 4 chronic kidney disease, or unspecified chronic kidney disease; I69.351 Hemiplegia and hemiparesis following cerebral infarction affecting right dominant side; J96.10 Chronic respiratory failure, unspecified whether with hypoxia or hypercapnia; J44.9 Chronic obstructive pulmonary disease, unspecified; N18.30 Chronic kidney disease, stage 3 unspecified; D63.1 Anemia in chronic kidney disease; T45.515A Adverse effect of anticoagulants, initial encounter; E78.5 Hyperlipidemia, unspecified; G40.909 Epilepsy, unspecified, not intractable, without status epilepticus; F32.A Depression, unspecified; F41.9 Anxiety disorder, unspecified; Z20.822 Contact with and (suspected) exposure to COVID-19; Z79.01 Long term (current) use of anticoagulants; Z86.711 Personal history of pulmonary embolism; Z95.5 Presence of coronary angioplasty implant and graft; Z85.118 Personal history of other malignant neoplasm of bronchus and lung; Z87.891 Personal history of nicotine dependence; Z92.3 Personal history of irradiation; Z99.3 Dependence on wheelchair; Z99.81 Dependence on supplemental oxygen; Z90.5 Acquired absence of kidney
CPT/HCPCS: 36415; 36430; 71046; 80053; 82728; 83615; 83735; 83880; 85025; 85046; 85055; 86850; 86900; 86901; 86920; 87426; 93005; 93306; 94640; 97110; 97162; 97165; 97530; 97535; 99285; A9270; C9113; C9803; J1756; J1940; J7050; P9016; Q5105; U0003; U0005

== ENCOUNTER 2022-06-19 13:41 | Outpatient (NON) | payer MEDICARE, SELFPAY ==
[2022-06-19 13:56] LABS: Basophils Absolute Auto 0.05 K/mm3 (0.00-0.10); Basophils Percent Auto 0.4 % (0.0-1.0); Eosinophils Absolute Auto 0.13 K/mm3 (0.02-0.50); Eosinophils Percent Auto 1.1 % (1.0-6.0); Hematocrit 35.5 % (35.0-42.0); Hemoglobin 10.1 g/dL (11.7-13.8); Immature Granulocyte Absolute 0.12 K/mm3 (0.00-0.00); Lymphocytes Absolute Auto 1.82 K/mm3 (1.10-4.50); Lymphocytes Percent Auto 15.2 % (18.0-42.0); Mean Corpuscular HGB Conc 28.5 g/dL (32.0-36.0); Mean Corpuscular Hemoglobin 25.5 pg (27.0-31.0); Mean Corpuscular Volume 89.6 fL (78.0-102.0); Mean Platelet Volume 10.8 fl (9.2-11.8); Monocytes Absolute Auto 0.92 K/mm3 (0.10-0.90); Monocytes Percent Auto 7.7 % (2.0-11.0); Neutrophils Percent Auto 74.6 % (50.0-70.0); Platelet Count Result 422 K/mm3 (150-420); Red Blood Count 3.96 M/mm3 (4.20-5.40); Red Cell Distribution Width 20.1 % (11.6-14.4)
[2022-06-19 14:33] LABS: Alanine Aminotransferase 23 U/L (14-59); Albumin Level 3.3 g/dL (3.4-5.0); Alkaline Phosphatase 85 U/L (46-116); Anion Gap 7 mmol/L (8-16); Aspartate Amino Transferase 20 U/L (15-37); Bilirubin,Total 0.4 mg/dL (0.00-1.00); Blood Urea Nitrogen 15 mg/dL (7-18); Calcium 9.5 mg/dL (8.5-10.1); Carbon Dioxide 35 mmol/L (21-32); Chloride 101 mmol/L (98-108); Estimated Glomerular Filt Rate 33; Glucose 99 mg/dL (70-99); Osmolality Calculated 296 mOsm/kg (285-295); Potassium 3.7 mmol/L (3.5-5.1); Sodium 143 mmol/L (136-145); Total Protein 6.3 g/dL (6.4-8.2)
== END 2022-06-19 13:42 | disposition home or self-care (01) ==
LOC: CHSLAB 13:43
PROVIDERS: Visit Provider Internal Medicine
DX: I50.30 Unspecified diastolic (congestive) heart failure (principal); D50.9 Iron deficiency anemia, unspecified
CPT/HCPCS: 36415; 80053; 85025

== ENCOUNTER 2022-07-16 10:48 | Outpatient (NON) | payer MEDICARE, SELFPAY ==
[2022-07-16 11:04] LABS: Basophils Absolute Auto 0.04 K/mm3 (0.00-0.10); Basophils Percent Auto 0.5 % (0.0-1.0); Eosinophils Absolute Auto 0.38 K/mm3 (0.02-0.50); Eosinophils Percent Auto 4.7 % (1.0-6.0); Hematocrit 34.4 % (35.0-42.0); Hemoglobin 9.6 g/dL (11.7-13.8); Immature Granulocyte Absolute 0.03 K/mm3 (0.00-0.00); Immature Granulocyte Percent A 0.4 % (0.0-0.0); Lymphocytes Absolute Auto 1.67 K/mm3 (1.10-4.50); Lymphocytes Percent Auto 20.7 % (18.0-42.0); Mean Corpuscular HGB Conc 27.9 g/dL (32.0-36.0); Mean Corpuscular Hemoglobin 23.5 pg (27.0-31.0); Mean Corpuscular Volume 84.3 fL (78.0-102.0); Mean Platelet Volume 10.1 fl (9.2-11.8); Monocytes Absolute Auto 0.84 K/mm3 (0.10-0.90); Monocytes Percent Auto 10.4 % (2.0-11.0); Neutrophils Absolute Auto 5.1 K/mm3 (1.7-7.2); Neutrophils Percent Auto 63.3 % (50.0-70.0); Platelet Count Result 406 K/mm3 (150-420); Red Blood Count 4.08 M/mm3 (4.20-5.40); Red Cell Distribution Width 18.9 % (11.6-14.4); White Blood Count 8.1 K/mm3 (4.8-10.8)
[2022-07-16 11:59] LABS: Alanine Aminotransferase 19 U/L (14-59); Albumin Level 3.2 g/dL (3.4-5.0); Alkaline Phosphatase 71 U/L (46-116); Anion Gap 5 mmol/L (8-16); Aspartate Amino Transferase 20 U/L (15-37); Bilirubin,Total 0.4 mg/dL (0.00-1.00); Blood Urea Nitrogen 18 mg/dL (7-18); Calcium 9.1 mg/dL (8.5-10.1); Carbon Dioxide 34 mmol/L (21-32); Chloride 104 mmol/L (98-108); Estimated Glomerular Filt Rate 37; Ferritin 11 ng/mL (8-252); Glucose 81 mg/dL (70-99); Iron 15 ug/dL (50-170); NT Pro B Type Natriuretic Pept 395 pg/mL (0-125); Osmolality Calculated 296 mOsm/kg (285-295); Potassium 3.6 mmol/L (3.5-5.1); Sodium 143 mmol/L (136-145); Total Protein 7.1 g/dL (6.4-8.2)
== END 2022-07-16 10:49 | disposition home or self-care (01) ==
LOC: CHSLAB 10:50
PROVIDERS: Visit Provider Internal Medicine
DX: I50.9 Heart failure, unspecified (principal); I12.9 Hypertensive chronic kidney disease with stage 1 through stage 4 chronic kidney disease, or unspecified chronic kidney disease; N18.30 Chronic kidney disease, stage 3 unspecified; D64.9 Anemia, unspecified
CPT/HCPCS: 36415; 80053; 82728; 83540; 83880; 85025

== ENCOUNTER 2022-07-17 13:29 | Emergency (ER) | payer MEDICARE, MEDICAID, SELFPAY ==
--- NOTE | ~2022-07-17 | XR_ITS ---
EXAMINATION: XR chest 1V portable DATE: 07/17/2022 13:54 INDICATION: Shortness of breath TECHNIQUE: frontal view of the chest was obtained. COMPARISON: Chest radiograph dated 06/05/2022 FINDINGS: Mild hyperexpansion of lungs with increased lucency and architectural distortion in the upper lung zo jay consistent with moderate emphysema better appreciated on CT dated 02/28/2019. Bronchovascular [place] ding along with some bronchial wall thickening in the bilateral lower lung zones. No pleural effusion or pneumothorax. Heart size is normal. IMPRESSION: 1. Emphysema. 2. Bronchial wall thickening in the lower lung zones which could be seen with bronchitis, reactive ai rway disease/asthma or mild pulmonary edema. Reviewed, dictated and finalized at location [facility]. IMPRESSION: 1. Emphysema. 2. Bronchial wall thickening in the lower lung zones which could be seen with b ronchitis, reactive airway disease/asthma or mild pulmonary edema.
[2022-07-17 13:51] VITALS: BP 118/66; PULSE 88; RESP 20; TEMP 36.6; O2SAT 98
[2022-07-17 14:01] VITALS: O2SAT 98
[2022-07-17 14:05] LABS: Basophils Absolute Auto 0.03 K/mm3 (0.00-0.10); Basophils Percent Auto 0.3 % (0.0-1.0); Eosinophils Absolute Auto 0.29 K/mm3 (0.02-0.50); Hematocrit 31.8 % (35.0-42.0); Hemoglobin 9.2 g/dL (11.7-13.8); Immature Granulocyte Absolute 0.04 K/mm3 (0.00-0.00); Immature Granulocyte Percent A 0.4 % (0.0-0.0); Lymphocytes Absolute Auto 1.75 K/mm3 (1.10-4.50); Lymphocytes Percent Auto 18.1 % (18.0-42.0); Mean Corpuscular HGB Conc 28.9 g/dL (32.0-36.0); Mean Corpuscular Hemoglobin 23.8 pg (27.0-31.0); Mean Corpuscular Volume 82.4 fL (78.0-102.0); Mean Platelet Volume 9.3 fl (9.2-11.8); Monocytes Absolute Auto 0.75 K/mm3 (0.10-0.90); Monocytes Percent Auto 7.8 % (2.0-11.0); Neutrophils Absolute Auto 6.8 K/mm3 (1.7-7.2); Neutrophils Percent Auto 70.4 % (50.0-70.0); Platelet Count Result 452 K/mm3 (150-420); Red Blood Count 3.86 M/mm3 (4.20-5.40); Red Cell Distribution Width 18.8 % (11.6-14.4); White Blood Count 9.7 K/mm3 (4.8-10.8)
--- NOTE | 2022-07-17 14:13 | ED.SOB ---
HPI - SOB/Dyspnea General Chief Complaint: Shortness of Breath/Dyspnea Stated Complaint: Ambulance Time Seen by Provider: 07/17/22 13:44 Source: patient and EMS Mode of arrival: EMS Limitations: no limitations History of Present Illness HPI Narrative: this is a 72-year-old female from [facility] that presents after EMS was called for a patient that was choking, upon arrival the the patient had removed the the substance that was causing the choking patient was after that mildly short of breath, has a history of COPD and currently is satting 98 to 99% on 4L of oxygen which is her level of oxygen that she uses at the [facility] for her COPD. After talking to the patient she is back to normal she does not feel short of breath she did receive a breathing treatment EN route via EMS. Currently there is no fever chills no coughing no shortness of breath no chest pain or pressure. MD elicited complaint: shortness of breath Onset (ago): hour(s) Related Data Home Medications Medication Instructions Recorded Confirmed acetaminophen 500 mg capsule 500 mg PO Q6H PRN Pain (Scale 11/24/19 07/17/22 Score 1-3) aspirin 81 mg tablet,delayed 81 mg PO DAILY 11/24/19 07/17/22 release (Adult Aspirin Regimen) atorvastatin 40 mg tablet 40 mg PO HS 11/24/19 07/17/22 escitalopram oxalate 20 mg tablet 10 mg PO DAILY 11/24/19 07/17/22 levetiracetam 250 mg tablet 250 mg PO Q12H 11/24/19 07/17/22 (Keppra) melatonin 5 mg capsule 5 mg PO HS 11/24/19 07/17/22 potassium chloride 20 mEq 20 meq PO DAILY 11/24/19 07/17/22 tablet,extended release spironolactone 25 mg tablet 25 mg PO DAILY 11/24/19 07/17/22 alprazolam 0.5 mg tablet 1 tablet PO Q6H PRN Anxiety 03/10/22 07/17/22 multivitamin with folic acid 400 1 tablet PO DAILY 03/10/22 07/17/22 mcg tablet (Daily-Annie (with folic acid)) gabapentin 300 mg capsule 300 mg PO TID 04/14/22 07/17/22 umeclidinium 62.5 mcg/actuation 1 inh inhalation DAILY 05/01/22 07/17/22 blister powder for inhalation (Incruse Ellipta) fluticasone propionate 230 2 puff inhalation BID 05/21/22 07/17/22 mcg-salmeterol 21 mcg/actuation HFA inhaler (Advair HFA) ropinirole 1 mg tablet 1 mg TID 06/06/22 07/17/22 Allergies Allergy/AdvReac Type Severity Reaction Status Date / Time adhesive Allergy Unknown Unknown Verified 07/17/22 14:06 hydrocodone Allergy Unknown Unknown Verified 07/17/22 14:06 iodine Allergy Unknown Unknown Verified 07/17/22 14:06 latex Allergy Unknown Unknown Verified 07/17/22 14:06 lorazepam Allergy Unknown Unknown Verified 07/17/22 14:06 nickel Allergy Unknown Unknown Verified 07/17/22 14:06 ferrous sulfate Allergy Unknown Verified 07/17/22 14:06 Review of Systems Review of Systems: All systems reviewed & are unremarkable except as noted in HPI and below PMFSH Past Medical History Medical History Cerebrovascular accident Residual right-sided weakness. Chronic kidney disease, stage 3 Chronic obstructive pulmonary disease Depression with anxiety Diastolic congestive heart failure Diastolic dysfunction Dyslipidemia Hypertension Occult blood in stools Pulmonary embolism (11/2021) Seizure disorder Small cell lung cancer Status post chemoradiotherapy. Surgical History Surgical History History of abdominal aortic aneurysm repair History of cardiac catheterization History of heart artery stent History of incisional hernia repair History of inguinal hernia repair History of left nephrectomy At age 3, done for unclear reasons. Family History Family History Sibling Family history of arthritis Father Melanoma Mother No problems noted. Social History Social History Social History: [id number]: Isabela. Code status: Full code. Smoking pa
[2022-07-17 14:23] LABS: Alanine Aminotransferase 22 U/L (14-59); Albumin Level 3.2 g/dL (3.4-5.0); Alkaline Phosphatase 70 U/L (46-116); Anion Gap 3 mmol/L (8-16); Aspartate Amino Transferase 17 U/L (15-37); Bilirubin,Total 0.4 mg/dL (0.00-1.00); Blood Urea Nitrogen 18 mg/dL (7-18); Calcium 8.9 mg/dL (8.5-10.1); Carbon Dioxide 35 mmol/L (21-32); Chloride 105 mmol/L (98-108); Estimated CRCL calculation 32 ml/min; Estimated Glomerular Filt Rate 35; Glucose 106 mg/dL (70-99); Osmolality Calculated 297 mOsm/kg (285-295); Sodium 143 mmol/L (136-145)
[2022-07-17] MEDS: cefTRIAXone 1 GM VIAL IM (14:25)
[2022-07-17] MEDS: LIDOCAINE HCL 1% LOCAL INJ 10 ML VIAL (14:25)
[2022-07-17 14:51] VITALS: BP 119/73; PULSE 85; RESP 20; TEMP 36.7; O2SAT 97
== END 2022-07-17 14:56 ==
PROVIDERS: Emergency Provider Emergency Medicine; PCP Internal Medicine
DX: J44.9 Chronic obstructive pulmonary disease, unspecified (principal); I12.9 Hypertensive chronic kidney disease with stage 1 through stage 4 chronic kidney disease, or unspecified chronic kidney disease; N18.30 Chronic kidney disease, stage 3 unspecified; E78.5 Hyperlipidemia, unspecified; G40.909 Epilepsy, unspecified, not intractable, without status epilepticus; Z87.891 Personal history of nicotine dependence
CPT/HCPCS: 36415; 71045; 80053; 85025; 96372; 99283; J0696

== ENCOUNTER 2022-07-31 15:45 | Outpatient (CLI) | payer MEDICARE, MEDICAID, SELFPAY ==
[2022-07-31 16:07] LABS: Basophils Absolute Auto 0.1 K/mm3 (0.0-0.1); Basophils Percent Auto 0.5 % (0.2-1.2); Eosinophils Absolute Auto 0.3 K/mm3 (0-0.3); Eosinophils Percent Auto 2.5 % (0-4.4); Hemoglobin 8.6 g/dL (12.0-15.0); Immature Granulocyte Absolute 0.04 K/mm3 (0.00-0.031); Immature Granulocyte Percent A 0.3 % (0-0.5); Lymphocytes Percent Auto 15.6 % (18.3-44.2); Mean Corpuscular HGB Conc 28.7 g/dl (32-36); Mean Corpuscular Hemoglobin 22.8 pg (26-34); Mean Corpuscular Volume 79.4 fl (80-100); Mean Platelet Volume 8.6 fl (7.4-10.4); Monocytes Absolute Auto 0.9 K/mm3 (0.1-0.6); Monocytes Percent Auto 7.7 % (2.6-8.5); Neutrophils Absolute Auto 8.5 K/mm3 (1.3-6.7); Neutrophils Percent Auto 73.4 % (45.5-73.1); Platelet Count Result 400 k/mm3 (150-375); Red Blood Count 3.78 M/mm3 (4.2-5.4); Red Cell Distribution Width 18.6 % (11.5-14.5); White Blood Count 11.6 K/mm3 (4.5-10.0)
[2022-07-31 16:11] LABS: Platelet Estimate Increased (Adequate)
[2022-07-31 16:12] LABS: Anisocytosis 1+ (NORMAL); Hypochromasia 1+ (NORMAL); Ovalocytes 1+ (NORMAL); Poikilocytosis 1+ (NORMAL); Schistocytes None Seen (NORMAL)
[2022-07-31 17:17] LABS: Iron 22 ug/dL (37-170)
[2022-07-31 17:23] LABS: Percent Iron Saturation 5 % (20-50)
[2022-07-31 17:53] LABS: Ferritin 5.19 ng/mL (11.1-264)
== END 2022-07-31 15:46 | disposition home or self-care (01) ==
LOC: ANHLAB 15:48
PROVIDERS: PCP Internal Medicine; Visit Provider Internal Medicine Hematology & Oncology
DX: D64.9 Anemia, unspecified (principal)
CPT/HCPCS: 36415; 82607; 82728; 83540; 83550; 85025

== ENCOUNTER 2022-08-12 12:34 | Outpatient (CLI) | payer MEDICARE, MEDICAID, SELFPAY ==
--- NOTE | ~2022-08-12 | CT_ITS ---
EXAMINATION: CT diagnostic chest wo con DATE: 08/12/2022 13:10 INDICATION: Shortness of breath for 2 days. COPD. History of lung cancer. TECHNIQUE: Computed tomography (CT) of the chest was performed without intravenous contrast. Automate d exposure control and iterative reconstruction technique were employed. Exam dose: 239.43 mGy-cm to paco exam DLP. COMPARISON: 07/17/2022 portable AP chest 02/28/2019 CTA chest FINDINGS: Heart size is within normal range. No pericardial or pleural effusion. There is extensive thoracic aortic and some great vessel calcifications in addition to prominent gideon nary artery calcifications. No thoracic aortic aneurysm. Normal size and attenuation of the thyroid gland. No hilar or mediastinal mass lesion or lymphadenopa thy. Moderate to moderately severe emphysema and bilateral pulmonary hyperinflation. There is a chronic linear scarring in the right lower lobe and left lower lobe. There is another line ar scar or discoid atelectasis in the right lower lobe since 02/28/2019. There is minimal atelectasis at the dependent lung bases, both lower lobes. Included portions of the adrenal glands are unremarkable. One or more ventral abdominal wall hernias. Multiple old healed right rib fractures. Moderate anterior wedge compression fracture deformity of T6. Degenerative disc disease of the lower cervical spine and degenerative spurring of the thoracic spine . No suspicious osteolytic or osteoblastic lesions are noted. IMPRESSION: Moderate to moderately severe emphysema Mild discoid atelectasis and/or scarring in the lower lobes Minimal bilateral lower lobe dependent atelectasis Aortic, great vessel and coronary artery atherosclerosis Reviewed, dictated and finalized at [facility]. Reviewed, dictated and finalized at location [facility]. [employer]
== END 2022-08-12 12:35 | disposition home or self-care (01) ==
LOC: CHSIMG 12:36
PROVIDERS: PCP Internal Medicine; Visit Provider Internal Medicine Pulmonary Disease
DX: C34.90 Malignant neoplasm of unspecified part of unspecified bronchus or lung (principal); R06.00 Dyspnea, unspecified; J44.1 Chronic obstructive pulmonary disease with (acute) exacerbation
CPT/HCPCS: 71250

== ENCOUNTER 2022-09-15 06:19 | Inpatient (IN) | payer MEDICARE, MEDICAID, SELFPAY ==
[2022-09-15] VITALS (13 sets, daily range): BP systolic 117–138; BP diastolic 60–74; PULSE 73–110; RESP 17–28; TEMP 36–37.3; O2SAT 90–98; BMI 32.5; BMI 30.5
--- NOTE | ~2022-09-15 | XR_ITS ---
EXAMINATION: XR chest 1V portable DATE: 09/15/2022 06:43 INDICATION: Cough. TECHNIQUE: A single frontal view of the chest was obtained. COMPARISON: Chest single view 07/17/2022, chest CT 08/12/2022 FINDINGS: The lungs are hyperexpanded with lucencies, consistent with emphysema. There are mild airsp gregorio opacities in the lower lung zones. No pleural effusion or pneumothorax. The heart size is normal. IMPRESSION: 1. Stable mild airspace opacities in the lower lung zones, consistent with atelectasis/scarring or le ss likely pneumonia. 2. Severe emphysema. Reviewed, dictated and finalized at location A. [facility] ASS[facility] IMPRESSION: 1. Stable mild airspace opacities in the lower lung zones, consistent with atel ectasis/scarring or less likely pneumonia. 2. Severe emphysema.
--- NOTE | 2022-09-15 06:22 | ECG_ITS ---
Measurements Intervals [place] Rate: 104 P: 73 UT: 156 QRS: 31 QRSD: 94 T: 72 QT: 335 QTc: 442 Interpretive Statements SINUS TACHYCARDIA ATRIAL AND VENTRICULAR PREMATURE COMPLEXES DELAYED PRECORDIAL R/S TRANSITION BASELINE ARTIFACT- I, II, III, AVR, AVL, AVF, V1-V6 ABNORMAL ECG COMPARED TO ECG 06/05/2022 16:42:01 SINUS TACHYCARDIA NOW PRESENT Electronically Signed On 09-15-2022 7:51:00 TYPE CUTTER by Oli Meyers D.O.
[2022-09-15 06:41] LABS: Alveolar/Arterial O2 Gradient 156.4 mmHg; Base Excess ABG 9.1 mEq/l (+/-2.0); Carboxyhemoglobin 1.1 % THb (0-2.0); Fractional Inspired Oxygen 45 %; HCO3 ABG 36.4 mEq/l (22.0-26.0); Methemoglobin ABG 0.3 %THb (0-1.5); Oxygen Content ABG 17.6 %vol (16.0-22.0); Oxygen Saturation ABG 96.8 % (95.0-100.0); PO2 ABG 93.1 mmHg (80.0-100.0); PO2 FiO2 Ratio Arterial Blood 2.07 %; Reduced Hemoglobin 3.6 %THb (0-5.0); Total Hemoglobin 13.1 g/dL (12.0-18.0); pH ABG 7.382 (7.350-7.450)
[2022-09-15 06:43] LABS: PCO2 ABG 62.7 mmHg (35.0-45.0)
[2022-09-15] MEDS: methylPREDNISolone SOD SUCC 125 MG VIAL IV PUSH (06:43)
[2022-09-15 06:44] LABS: Device OTHER DEVICE; Modified Allen's Test Pass; Site Drawn RIGHT RADIAL
[2022-09-15 07:02] LABS: Basophils Absolute Auto 0.1 K/mm3 (0.0-0.1); Basophils Percent Auto 0.4 % (0.2-1.2); Eosinophils Absolute Auto 0.2 K/mm3 (0-0.3); Eosinophils Percent Auto 1.3 % (0-4.4); Hemoglobin 12.3 g/dL (12.0-15.0); Immature Granulocyte Percent A 0.5 % (0-0.5); Lymphocytes Absolute Auto 2.56 K/mm3 (0.9-3.2); Lymphocytes Percent Auto 13.6 % (18.3-44.2); Mean Corpuscular HGB Conc 29.3 g/dl (32-36); Mean Corpuscular Hemoglobin 25.9 pg (26-34); Mean Corpuscular Volume 88.6 fl (80-100); Mean Platelet Volume 10.2 fl (7.4-10.4); Monocytes Absolute Auto 1.7 K/mm3 (0.1-0.6); Neutrophils Absolute Auto 14.2 K/mm3 (1.3-6.7); Neutrophils Percent Auto 75.2 % (45.5-73.1); Platelet Count Result 304 k/mm3 (150-375); Red Blood Count 4.74 M/mm3 (4.2-5.4); White Blood Count 18.8 K/mm3 (4.5-10.0)
[2022-09-15 07:03] LABS: Albumin Level 4.1 g/dL (3.5-5.1); Alkaline Phosphatase 72 U/L (38-126); Aspartate Amino Transferase 36 U/L (14-36); Bilirubin,Total 0.7 mg/dL (0.2-1.3); Blood Urea Nitrogen 27 mg/dL (7-17); Carbon Dioxide 38 mmol/L (22-30); Estimated Glomerular Filt Rate 40; Glucose 109 mg/dL (65-110)
[2022-09-15 07:08] LABS: Alanine Aminotransferase 22 U/L (6-35); Anion Gap 4 mmol/L (8-16); Calcium 8.7 mg/dL (8.4-10.2); Chloride 95 mmol/L (98-107); Sodium 137 mmol/L (137-145)
[2022-09-15 07:25] LABS: Hypochromasia 1+ (NORMAL); Platelet Estimate Adequate (Adequate); Poikilocytosis 1+ (NORMAL)
[2022-09-15 07:26] LABS: Anisocytosis 1+ (NORMAL); Influenza A QL RT-PCR Negative (Negative); Influenza B QL RT-PCR Negative (Negative); Ovalocytes 1+ (NORMAL); RSV RNA, RT-PCR Negative (Negative); SARS-CoV-2 RNA PCR Negative; Schistocytes Rare (NORMAL)
[2022-09-15] MEDS: ALBUTEROL SULFATE NEB 2.5 MG/3 ML INH 10 MG INHALATION (07:42)
[2022-09-15] MEDS: IPRATROPIUM BR 0.02% INH SOLN 0.5 MG/2.5 ML VIAL 1 MG INHALATION (07:42)
--- NOTE | 2022-09-15 08:02 | ED.SOB ---
HPI - SOB/Dyspnea General Chief Complaint: Shortness of Breath/Dyspnea Stated Complaint: SOB, COUGH Time Seen by Provider: 09/15/22 07:08 Source: patient, EMS, RN notes reviewed and old records reviewed Mode of arrival: EMS Limitations: no limitations History of Present Illness HPI Narrative: THis is a 72 year old female with history of COPD, chronic respiratory failure on 2 L NC who presents for evaluation of shortness of breath. She reports having shortness of breath for 4 days. She also has cough productive with yellow phlegm. She denies fever, chills, nausea or vomiting. EMS reports patient was 78% on her 2L on their arrival, so they gave her neb treatment. She states she feels better but she is still sob. She is 99% on roon her 2 L NC currently. She denies chest pain as well. Related Data Home oxygen amount: 2 liters Home Medications Medication Instructions Recorded Confirmed acetaminophen 500 mg capsule 500 mg PO Q6H PRN Pain (Scale 11/24/19 09/15/22 Score 1-3) aspirin 81 mg tablet,delayed 81 mg PO DAILY 11/24/19 09/15/22 release (Adult Aspirin Regimen) atorvastatin 40 mg tablet 40 mg PO HS 11/24/19 09/15/22 escitalopram oxalate 20 mg tablet 10 mg PO DAILY 11/24/19 09/15/22 levetiracetam 250 mg tablet 250 mg PO Q12H 11/24/19 09/15/22 (Keppra) melatonin 5 mg capsule 5 mg PO HS 11/24/19 09/15/22 potassium chloride 20 mEq 20 meq PO DAILY 11/24/19 09/15/22 tablet,extended release spironolactone 25 mg tablet 25 mg PO DAILY 11/24/19 09/15/22 alprazolam 0.5 mg tablet 1 tablet PO HS PRN Anxiety 03/10/22 09/15/22 multivitamin with folic acid 400 1 tablet PO DAILY 03/10/22 09/15/22 mcg tablet (Daily-Annie (with folic acid)) gabapentin 300 mg capsule 300 mg PO TID 04/14/22 09/15/22 umeclidinium 62.5 mcg/actuation 1 inh inhalation DAILY 05/01/22 09/15/22 blister powder for inhalation (Incruse Ellipta) fluticasone propionate 230 2 puff inhalation BID 05/21/22 09/15/22 mcg-salmeterol 21 mcg/actuation HFA inhaler (Advair HFA) ropinirole 1 mg tablet 1 mg TID 06/06/22 09/15/22 calcium-ergocalciferol (vit D2) 1 tablet PO WEEKLY 08/22/22 09/15/22 tablet ferrous sulfate 325 mg (65 mg 325 mg PO BID 08/22/22 09/15/22 iron) tablet Allergies Allergy/AdvReac Type Severity Reaction Status Date / Time iodine Allergy Unknown Unknown Verified 09/01/22 13:43 latex Allergy Unknown Unknown Verified 09/01/22 13:43 lorazepam Allergy Unknown Unknown Verified 09/01/22 13:43 ferrous sulfate AdvReac Other Verified 09/01/22 13:43 iohexol AdvReac Other Verified 09/01/22 13:43 [From contrast - CT, X-RAY] Review of Systems Constitutional: Constitutional: Denies weakness Cardiovascular: Cardiovascular: Denies syncope, Denies rapid heart rate, Denies irregular heart rhythm, Denies leg edema and Denies dyspnea Respiratory: Respiratory: Reports chest congestion, Reports cough, Denies hemoptysis, Denies excessive phlegm production, Reports dyspnea and Reports wheezing Gastrointestinal: Gastrointestinal: Denies abdominal pain, Denies hematochezia, Denies diarrhea and Denies vomiting Genitourinary: Genitourinary: Denies hematuria and Denies dysuria Musculoskeletal: Musculoskeletal: Denies joint swelling, Denies loss of height and Denies muscle weakness Neurologic: Denies syncope, Denies focal weakness and Denies weakness PMF Past Medical History Medical History Cerebrovascular accident Residual right-sided weakness. Chronic kidney disease, stage 3 Chronic obstructive pulmonary disease Depression with anxiety Diastolic congestive heart failure Diastolic dysfunction Dyslipidemia Hypertension Occult blood in stools Pulmonary embolism (11/2021) Seizure disorder Small cell lung cancer Status post chemoradiotherapy. Surgical History Surgical History History of abdominal aortic aneurysm repair H
[2022-09-15 08:57] LABS: NT Pro B Type Natriuretic Pept 773 pg/mL (5-100)
[2022-09-15 09:21] LABS: Lactic Acid Reflex 0.9 mmol/L (0.7-2.0)
--- NOTE | 2022-09-15 10:29 | ADMGEN ---
This patient, Teresa Levi, was admitted to IMU Room 204-01. 09:59 am Patient/family oriented to hospital policies and general routines including ID bracelet, bed and alarms, visiting hours, pain management, procedures, bathroom and other care routines, personal items, smoking policy, room service/diet, and visiting hours. Patient on 2L NC. A&O X 4. No distress noted. Information on how to activate the Rapid Response Team has been discussed. Patient/Family are encouraged to report perceived risks to care and to ask questions if they do not understand what they are told or what they should do.
[2022-09-15] MEDS: methylPREDNISolone SOD SUCC 125 MG VIAL 60 MG IV PUSH ×3 (12:05→23:14)
[2022-09-15] MEDS: ALBUTEROL SULFATE NEB 2.5 MG/3 ML INH 5 MG INHALATION ×2 (15:00→20:12)
[2022-09-15] MEDS: IPRATROPIUM BR 0.02% INH SOLN 0.5 MG/2.5 ML VIAL INHALATION ×2 (15:00→20:12)
--- NOTE | 2022-09-15 19:30 | PM.IMHP ---
H&P: HPI History of Present Illness Date/Time: 09/15/22 19:30 Chief Complaint: Cough and shortness of breath. Narrative: This is a pleasant 72-year-old female with history of pulmonary embolism, chronic respiratory failure on 2 L nasal cannula, chronic obstructive pulmonary disease, stroke, seizures, coronary artery disease, hypertension, and other comorbidities who presented to the emergency department via EMS for evaluation of cough and shortness of breath. She is chronically on 2 liters and does endorse baseline dyspnea with exertion and dry cough. Over last several days however she has developed a cough which is now productive of green-yellow phlegm and she also notes increasing dyspnea on lesser and lesser exertion. She denies sick contacts. She has not had fever chills but endorses sweats. Appetite has been okay without nausea, vomiting, or significant diarrhea. She denies chest pain, pleuritic pain, and palpitations. She endorses some mild discomfort in the left superior shoulder which is reproducible on exam. She has not noticed any significant lower extremity edema. No syncope or near syncope. Today she was much more short of breath and was struggling to breathe and she called 911. On EMS arrival her SpO2 was reportedly 78% on her usual 2 liters and she was given a nebulizer treatment in route to the hospital with some improvement. She was afebrile with stable vital signs on arrival to the ED. Chest x-ray showed stable mild airspace opacities and severe emphysema. She was negative for COVID, RSV, and influenza. Due to ongoing wheezing and cough she is being admitted in this setting for treatment of COPD exacerbation in addition to probable pneumonia. Review of Systems Review of Systems: Twelve systems were reviewed and are negative except for as per HPI. 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 Chronic kidney disease, stage 3 Chronic obstructive pulmonary disease Chronic respiratory failure with hypoxia, on home oxygen therapy Depression with anxiety Diastolic congestive heart failure Diastolic dysfunction Dyslipidemia Hypertension Occult blood in stools Pulmonary embolism (11/2021) Seizure disorder Small cell lung cancer Status post chemoradiotherapy. Surgical History Surgical History History of abdominal aortic aneurysm repair History of cardiac catheterization History of heart artery stent History of incisional hernia repair History of inguinal hernia repair History of left nephrectomy At age 3, done for unclear reasons. Family History Family History Sibling Family history of arthritis Father Melanoma Mother No problems noted. Social History Social History (Updated 09/15/22 @ 19:20 by Deidre Murillo PA-C) Social History: Ijlea-ev-qauojfoy: Isabela Ponce, friend. Code status: Full code. Smoking packs per day: 1 Smoking cigarettes per day: 20.0 Years smoked: 30 Smoking pack-years: 30.00 Smoking status: Former smoker Tobacco type: cigarettes Second hand tobacco smoke exposure: No Smoking end date: 09/14/05 Alcohol intake: former Alcohol use details: No alcohol since 2005. Substance use: never Substance use type: does not use Lack of Transportation: No Lack of Food: Never True Current Housing: I Have Housing Concerned About Future Housing: No Difficulty Paying Gas/Electric Bills: No Difficulty Paying for Meds: No Currently Unemployed: No Education: High School Diploma/GED Difficulty w/ Childcare or Family Care: No Additional living arrangements comments: Lives in assisted living. Wheelchair-bound due to right-sided deficits from prior CVA. Spiritual care concerns: No
[2022-09-15] MEDS: ACETAMINOPHEN 325 MG TABLET 650 MG PO (20:38)
[2022-09-15] MEDS: guaiFENesin 12 HR 600 MG TABCR PO (20:39)
[2022-09-15] MEDS: ATORVASTATIN 40 MG TABLET PO (23:13)
[2022-09-15] MEDS: rOPINIRole HCL 1 MG TABLET BY MOUTH (23:13)
[2022-09-15] MEDS: MELATONIN 5 MG TABLET PO (23:13)
[2022-09-15] MEDS: GABAPENTIN 300 MG CAPSULE PO (23:13)
[2022-09-15] MEDS: levETIRAcetam 250 MG TABLET PO (23:13)
[2022-09-16] VITALS (21 sets, daily range): BP systolic 118–125; BP diastolic 54–74; PULSE 70–96; RESP 14–20; TEMP 36.1–37.1; O2SAT 91–95; BMI 31.5
[2022-09-16] MEDS: IPRATROPIUM BR 0.02% INH SOLN 0.5 MG/2.5 ML VIAL INHALATION ×4 (02:21→20:35)
[2022-09-16] MEDS: ALBUTEROL SULFATE NEB 2.5 MG/3 ML INH 5 MG INHALATION ×4 (02:21→20:35)
[2022-09-16 04:39] LABS: Hematocrit 38.2 % (37.0-47.0); Hemoglobin 11.4 g/dL (12.0-15.0); Mean Corpuscular HGB Conc 29.8 g/dl (32-36); Platelet Count Result 303 k/mm3 (150-375); Red Blood Count 4.39 M/mm3 (4.2-5.4); Red Cell Distribution Width 24.8 % (11.5-14.5); White Blood Count 14.1 K/mm3 (4.5-10.0)
[2022-09-16 04:52] LABS: Alanine Aminotransferase 21 U/L (6-35); Albumin Level 3.9 g/dL (3.5-5.1); Alkaline Phosphatase 79 U/L (38-126); Anion Gap 7 mmol/L (8-16); Aspartate Amino Transferase 24 U/L (14-36); Bilirubin,Total 0.4 mg/dL (0.2-1.3); Blood Urea Nitrogen 31 mg/dL (7-17); Calcium 8.9 mg/dL (8.4-10.2); Carbon Dioxide 34 mmol/L (22-30); Chloride 95 mmol/L (98-107); Estimated CRCL calculation 34 ml/min; Estimated Glomerular Filt Rate 40; Glucose 128 mg/dL (65-110); Magnesium 2.5 mg/dL (1.6-2.3); Potassium 3.7 mmol/L (3.4-5.0); Sodium 136 mmol/L (137-145)
[2022-09-16 05:09] LABS: Band Neutrophils Percent 12 % (0-6); Lymphocytes Absolute Manual 0.42 K/mm3 (1.1-4.5); Neutrophils Absolute Manual 13.67 K/mm3 (1.7-7.2); Neutrophils Percent Manual 85 % (46-73); Total Cells Counted 100
[2022-09-16 05:10] LABS: Hypochromasia 1+ (NORMAL); Microcytosis 1+ (NORMAL); Platelet Estimate Adequate (Adequate); Schistocytes None Seen (NORMAL)
[2022-09-16] MEDS: methylPREDNISolone SOD SUCC 125 MG VIAL 60 MG IV PUSH ×4 (06:16→23:32)
[2022-09-16] MEDS: GABAPENTIN 300 MG CAPSULE PO ×3 (08:06→16:40)
[2022-09-16] MEDS: PANTOPRAZOLE 40 MG TABLET PO (08:06)
[2022-09-16] MEDS: POTASSIUM CHLORIDE 20 MEQ TABLET.ER PO (08:06)
[2022-09-16] MEDS: MULTIVITAMINS THERAPEUTIC TAB (*BKC) 1 TABLET PO (08:06)
[2022-09-16] MEDS: rOPINIRole HCL 1 MG TABLET BY MOUTH ×3 (08:07→16:40)
[2022-09-16] MEDS: SPIRONOLACTONE 25 MG TABLET PO (08:07)
[2022-09-16] MEDS: ASPIRIN 81 MG ENTERIC TABLET PO (08:07)
[2022-09-16] MEDS: guaiFENesin 12 HR 600 MG TABCR PO ×2 (08:07→21:12)
[2022-09-16] MEDS: ESCITALOPRAM OXALATE 10 MG TABLET PO (08:07)
[2022-09-16] MEDS: levETIRAcetam 250 MG TABLET PO ×2 (08:07→21:12)
[2022-09-16] MEDS: FUROSEMIDE 40 MG TABLET PO ×2 (08:07→16:40)
[2022-09-16] MEDS: FLUTICASONE/SALMETEROL 230-21 MCG INHALER 1 PUFF 2 PUFF INHALATION ×2 (08:27→20:35)
--- NOTE | 2022-09-16 16:01 | PM.IMPN ---
Progress Note: A&P Assessment and Plan (1) Shortness of breath: Code(s): R06.02 - Shortness of breath Status: Acute (2) Chronic obstructive pulmonary disease: Qualifiers: COPD type: COPD with acute exacerbation Qualified Code(s): J44.1 - Chronic obstructive pulmonary disease with (acute) exacerbation Code(s): J44.9 - Chronic obstructive pulmonary disease, unspecified Status: Acute (3) Community acquired pneumonia: Code(s): J18.9 - Pneumonia, unspecified organism Status: Acute (4) Chronic respiratory failure with hypoxia, on home oxygen therapy: Code(s): J96.11 - Chronic respiratory failure with hypoxia; Z99.81 - Dependence on supplemental oxygen Status: Acute (5) Diastolic congestive heart failure: Qualifiers: Heart failure chronicity: acute on chronic Qualified Code(s): I50.33 - Acute on chronic diastolic (congestive) heart failure Code(s): I50.30 - Unspecified diastolic (congestive) heart failure Status: Acute (6) Chronic kidney disease, stage 3: Code(s): N18.30 - Chronic kidney disease, stage 3 unspecified Status: Acute (7) Seizure disorder: Code(s): G40.909 - Epilepsy, unspecified, not intractable, without status epilepticus Status: Chronic (8) Hypertension: Code(s): I10 - Essential (primary) hypertension Status: Acute Plan The patient presented to the emergency department via EMS for evaluation of cough and shortness of breath for the last 4 days or so. # bilateral pneumonia: With associated COPD exacerbation. On ceftriaxone and azithromycin continue # acute on chronic hypoxic respiratory failure: SpO2 and mid 70s on EMS arrival improved with nebulization. Likely COPD exacerbation with pneumonia. On 2 L oxygen at all times # acute COPD exacerbation: On Solu-Medrol and bronchodilators scheduled continue same # chronic CHF with preserved ejection fraction: BNP is 773 fairly at baseline. No leg swelling noted. Not in exacerbation. Will continue Lasix and spironolactone. # chronic anemia: With history of GI bleed from AVMs in the past. Intermittent transfusion required in the past. H&H remains stable continue to monitor. This was while she was on anticoagulation which has now been stopped. # history of lung cancer status post chemoradiation in remission; follows oncologist in [facility].? No evidence of active cancer # hx of stroke with right sided residual weakness, wheelchair bound # iron deficiency anemia hx.? 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 on Protonix bid. capsule endoscopy negative. # ckd stage III currently at baseline continue to monitor # history of PE November 2021 1 episode and hence anticoagulation was stopped since then particularly also because complicated by recurrent GI bleed # Seizure disorder; on keppra. no active seizure # DVT proph: SCDs # Code status: full code Subjective Date/time seen: 09/16/22 16:01 Interval history: History reviewed. Feels about the same oxygen requirement has gone down. Still has cough and shortness of breath on exertion. Labs and x-rays were reviewed Review of Systems Review of Systems: All systems reviewed & are unremarkable except as noted in HPI and below Exam Narrative: General: Well-developed, non toxic appearing female in no acute distress HEENT: PERRL, EOMI. Sclera anicteric. Oral mucosa moist. Neck: Supple. No JVD or lymphadenopathy. Respiratory: Coarse breath sound with bilateral diffuse wheezes, no respiratory distress Cardiovascular: Regular rate and rhythm with S1-S2. Gastrointestinal: Abdomen is soft, nontender, and nondistended with positive bowel sounds. Large ventral hernias reproducible and not tender to palpation. Skin: Warm and dry. No rash or lesions on limited exam. Extremities: No cyanosis, clubbing, or significant edema. Radial and pedal pulses intact. Negative Lakshmi
[2022-09-16] MEDS: ATORVASTATIN 40 MG TABLET PO (21:12)
[2022-09-16] MEDS: MELATONIN 5 MG TABLET PO (21:13)
--- NOTE | 2022-09-16 22:48 | PC.NURSE ---
Patient transferred from IMU. Report received from LEON Love.
--- NOTE | 2022-09-16 23:16 | PC.NURSE ---
This patient, Teresa Levi, was transferred to [ [facility]] on 09/16/22 at 2245. Personal belongings sent with patient. Report given to [ JOSE]. Appropriate documentation sent with patient.
[2022-09-16] MEDS: ACETAMINOPHEN 325 MG TABLET 650 MG PO (23:31)
[2022-09-17] VITALS (20 sets, daily range): BP systolic 117–135; BP diastolic 61–75; PULSE 75–102; RESP 16–22; TEMP 36.2–37.1; O2SAT 92–99
[2022-09-17] MEDS: IPRATROPIUM BR 0.02% INH SOLN 0.5 MG/2.5 ML VIAL INHALATION ×4 (01:53→19:39)
[2022-09-17] MEDS: ALBUTEROL SULFATE NEB 2.5 MG/3 ML INH 5 MG INHALATION ×4 (01:53→19:39)
[2022-09-17] MEDS: methylPREDNISolone SOD SUCC 125 MG VIAL 60 MG IV PUSH ×3 (06:07→18:00)
[2022-09-17 06:35] LABS: Basophils Percent Auto 0.2 % (0.2-1.2); Hematocrit 37.4 % (37.0-47.0); Hemoglobin 11.2 g/dL (12.0-15.0); Immature Granulocyte Absolute 0.18 K/mm3 (0.00-0.031); Immature Granulocyte Percent A 1.4 % (0-0.5); Lymphocytes Percent Auto 3.2 % (18.3-44.2); Mean Corpuscular HGB Conc 29.9 g/dl (32-36); Mean Corpuscular Hemoglobin 25.6 pg (26-34); Mean Corpuscular Volume 85.6 fl (80-100); Monocytes Absolute Auto 0.2 K/mm3 (0.1-0.6); Monocytes Percent Auto 1.6 % (2.6-8.5); Neutrophils Absolute Auto 11.8 K/mm3 (1.3-6.7); Neutrophils Percent Auto 93.6 % (45.5-73.1); Platelet Count Result 330 k/mm3 (150-375); Red Blood Count 4.37 M/mm3 (4.2-5.4); Red Cell Distribution Width 24.6 % (11.5-14.5); White Blood Count 12.6 K/mm3 (4.5-10.0)
[2022-09-17 06:49] LABS: Alanine Aminotransferase 23 U/L (6-35); Albumin Level 3.7 g/dL (3.5-5.1); Alkaline Phosphatase 73 U/L (38-126); Anion Gap 5 mmol/L (8-16); Aspartate Amino Transferase 29 U/L (14-36); Bilirubin,Total 0.4 mg/dL (0.2-1.3); Blood Urea Nitrogen 43 mg/dL (7-17); Calcium 8.6 mg/dL (8.4-10.2); Carbon Dioxide 34 mmol/L (22-30); Chloride 100 mmol/L (98-107); Estimated CRCL calculation 34 ml/min; Estimated Glomerular Filt Rate 40; Glucose 132 mg/dL (65-110); Magnesium 2.4 mg/dL (1.6-2.3); Potassium 3.8 mmol/L (3.4-5.0); Sodium 139 mmol/L (137-145)
[2022-09-17] MEDS: FLUTICASONE/SALMETEROL 230-21 MCG INHALER 1 PUFF 2 PUFF INHALATION ×2 (08:32→20:11)
[2022-09-17] MEDS: levETIRAcetam 250 MG TABLET PO ×2 (09:47→20:59)
[2022-09-17] MEDS: rOPINIRole HCL 1 MG TABLET BY MOUTH ×3 (09:48→16:13)
[2022-09-17] MEDS: FUROSEMIDE 40 MG TABLET PO ×2 (09:48→16:15)
[2022-09-17] MEDS: GABAPENTIN 300 MG CAPSULE PO ×3 (09:48→16:13)
[2022-09-17] MEDS: POTASSIUM CHLORIDE 20 MEQ TABLET.ER PO (09:48)
[2022-09-17] MEDS: PANTOPRAZOLE 40 MG TABLET PO (09:48)
[2022-09-17] MEDS: SPIRONOLACTONE 25 MG TABLET PO (09:48)
[2022-09-17] MEDS: ASPIRIN 81 MG ENTERIC TABLET PO (09:48)
[2022-09-17] MEDS: ESCITALOPRAM OXALATE 10 MG TABLET PO (09:48)
[2022-09-17] MEDS: MULTIVITAMINS THERAPEUTIC TAB (*BKC) 1 TABLET PO (09:48)
[2022-09-17] MEDS: guaiFENesin 12 HR 600 MG TABCR PO ×2 (09:49→20:59)
[2022-09-17] MEDS: hydrOXYzine HCL 25 MG TABLET PO ×2 (11:47→18:00)
--- NOTE | 2022-09-17 15:03 | PCPTNOTE ---
Attempted PT evaluation, pt refused due to pain. Pt stated she would do therapy later. RN aware. Will follow
--- NOTE | 2022-09-17 16:08 | PM.IMPN ---
Progress Note: A&P Assessment and Plan (1) Shortness of breath: Code(s): R06.02 - Shortness of breath Status: Acute (2) Chronic obstructive pulmonary disease: Qualifiers: COPD type: COPD with acute exacerbation Qualified Code(s): J44.1 - Chronic obstructive pulmonary disease with (acute) exacerbation Code(s): J44.9 - Chronic obstructive pulmonary disease, unspecified Status: Acute (3) Community acquired pneumonia: Code(s): J18.9 - Pneumonia, unspecified organism Status: Acute (4) Chronic respiratory failure with hypoxia, on home oxygen therapy: Code(s): J96.11 - Chronic respiratory failure with hypoxia; Z99.81 - Dependence on supplemental oxygen Status: Acute (5) Diastolic congestive heart failure: Qualifiers: Heart failure chronicity: acute on chronic Qualified Code(s): I50.33 - Acute on chronic diastolic (congestive) heart failure Code(s): I50.30 - Unspecified diastolic (congestive) heart failure Status: Acute (6) Chronic kidney disease, stage 3: Code(s): N18.30 - Chronic kidney disease, stage 3 unspecified Status: Acute (7) Seizure disorder: Code(s): G40.909 - Epilepsy, unspecified, not intractable, without status epilepticus Status: Chronic (8) Hypertension: Code(s): I10 - Essential (primary) hypertension Status: Acute Plan The patient presented to the emergency department via EMS for evaluation of cough and shortness of breath for the last 4 days or so. # bilateral pneumonia: With associated COPD exacerbation. On ceftriaxone and azithromycin continue # acute on chronic hypoxic respiratory failure: SpO2 and mid 70s on EMS arrival improved with nebulization. Likely COPD exacerbation with pneumonia. On 2 L oxygen at all times # acute COPD exacerbation: On Solu-Medrol and bronchodilators scheduled continue same # chronic CHF with preserved ejection fraction: BNP is 773 fairly at baseline. No leg swelling noted. Not in exacerbation. Will continue Lasix and spironolactone. # chronic anemia: With history of GI bleed from AVMs in the past. Intermittent transfusion required in the past. H&H remains stable continue to monitor. This was while she was on anticoagulation which has now been stopped. # history of lung cancer status post chemoradiation in remission; follows oncologist in [facility].? No evidence of active cancer # hx of stroke with right sided residual weakness, wheelchair bound # iron deficiency anemia hx.? 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 on Protonix bid. capsule endoscopy negative. # ckd stage III currently at baseline continue to monitor # history of PE November 2021 1 episode and hence anticoagulation was stopped since then particularly also because complicated by recurrent GI bleed # Seizure disorder; on keppra. no active seizure # DVT proph: SCDs # Code status: full code 09/17/2021 interval history: patient with shortness of breath multifactorial as patient has exacerbation of COPD being treated with steroid and bronchodilator there is also concern the patient has pneumonia patient is being treated ceftriaxone and azithromycin also concerning for CHF his patient the diastolic dysfunction patient being diuresed with furosemide 40 mg b.i.d. patient's symptoms are getting better not requiring as much oxygen however patient feels anxious most likely secondary to steroid will give the patient hydroxyzine will monitor. Subjective Date/time seen: 09/17/22 16:08 Interval history: History reviewed. Feels about the same oxygen requirement has gone down. Still has cough and shortness of breath on exertion. Labs and x-rays were reviewed 09/17/2021 interval history: patient with shortness of breath multifactorial as patient has exacerbation of COPD being treated with steroid and bronchodilator there is also concern the patient has pneumonia patient is
[2022-09-17] MEDS: ATORVASTATIN 40 MG TABLET PO (20:58)
[2022-09-17] MEDS: MELATONIN 5 MG TABLET PO (20:59)
[2022-09-18] VITALS (20 sets, daily range): BP systolic 100–128; BP diastolic 47–76; PULSE 65–114; RESP 16–20; TEMP 36.1–36.6; O2SAT 93–95
[2022-09-18] MEDS: methylPREDNISolone SOD SUCC 125 MG VIAL 60 MG IV PUSH ×5 (01:08→23:50)
[2022-09-18] MEDS: ALBUTEROL SULFATE NEB 2.5 MG/3 ML INH 5 MG INHALATION ×4 (02:14→21:51)
[2022-09-18] MEDS: IPRATROPIUM BR 0.02% INH SOLN 0.5 MG/2.5 ML VIAL INHALATION ×4 (02:14→21:51)
[2022-09-18 07:41] LABS: Hemoglobin 11.8 g/dL (12.0-15.0); Mean Corpuscular HGB Conc 30.3 g/dl (32-36); Mean Corpuscular Hemoglobin 25.7 pg (26-34); Mean Corpuscular Volume 84.8 fl (80-100); Mean Platelet Volume 9.6 fl (7.4-10.4); Platelet Count Result 337 k/mm3 (150-375); White Blood Count 11.8 K/mm3 (4.5-10.0)
[2022-09-18 07:53] LABS: Anion Gap 5 mmol/L (8-16); Blood Urea Nitrogen 44 mg/dL (7-17); Calcium 8.8 mg/dL (8.4-10.2); Carbon Dioxide 35 mmol/L (22-30); Chloride 98 mmol/L (98-107); Estimated CRCL calculation 37 ml/min; Estimated Glomerular Filt Rate 44; Glucose 123 mg/dL (65-110); Magnesium 2.3 mg/dL (1.6-2.3); Potassium 4.3 mmol/L (3.4-5.0); Sodium 138 mmol/L (137-145)
[2022-09-18] MEDS: ESCITALOPRAM OXALATE 10 MG TABLET PO (08:05)
[2022-09-18] MEDS: rOPINIRole HCL 1 MG TABLET BY MOUTH ×3 (08:05→17:58)
[2022-09-18] MEDS: GABAPENTIN 300 MG CAPSULE PO ×3 (08:05→17:58)
[2022-09-18] MEDS: guaiFENesin 12 HR 600 MG TABCR PO ×2 (08:05→21:53)
[2022-09-18] MEDS: POTASSIUM CHLORIDE 20 MEQ TABLET.ER PO (08:06)
[2022-09-18] MEDS: levETIRAcetam 250 MG TABLET PO ×2 (08:06→21:53)
[2022-09-18] MEDS: SPIRONOLACTONE 25 MG TABLET PO (08:06)
[2022-09-18] MEDS: PANTOPRAZOLE 40 MG TABLET PO (08:07)
[2022-09-18] MEDS: ASPIRIN 81 MG ENTERIC TABLET PO (08:07)
[2022-09-18] MEDS: MULTIVITAMINS THERAPEUTIC TAB (*BKC) 1 TABLET PO (08:07)
[2022-09-18] MEDS: FUROSEMIDE 40 MG TABLET PO ×2 (08:07→17:58)
[2022-09-18] MEDS: SODIUM CHLORIDE 0.9% IV 250 ML 75 ML (08:08)
[2022-09-18] MEDS: FLUTICASONE/SALMETEROL 230-21 MCG INHALER 1 PUFF 2 PUFF INHALATION ×2 (10:13→21:51)
[2022-09-18] MEDS: hydrOXYzine HCL 25 MG TABLET PO ×2 (13:09→17:57)
--- NOTE | 2022-09-18 13:53 | PM.IMPN ---
Progress Note: A&P Assessment and Plan (1) Shortness of breath: Code(s): R06.02 - Shortness of breath Status: Acute (2) Chronic obstructive pulmonary disease: Qualifiers: COPD type: COPD with acute exacerbation Qualified Code(s): J44.1 - Chronic obstructive pulmonary disease with (acute) exacerbation Code(s): J44.9 - Chronic obstructive pulmonary disease, unspecified Status: Acute (3) Community acquired pneumonia: Code(s): J18.9 - Pneumonia, unspecified organism Status: Acute (4) Chronic respiratory failure with hypoxia, on home oxygen therapy: Code(s): J96.11 - Chronic respiratory failure with hypoxia; Z99.81 - Dependence on supplemental oxygen Status: Acute (5) Diastolic congestive heart failure: Qualifiers: Heart failure chronicity: acute on chronic Qualified Code(s): I50.33 - Acute on chronic diastolic (congestive) heart failure Code(s): I50.30 - Unspecified diastolic (congestive) heart failure Status: Acute (6) Chronic kidney disease, stage 3: Code(s): N18.30 - Chronic kidney disease, stage 3 unspecified Status: Acute (7) Seizure disorder: Code(s): G40.909 - Epilepsy, unspecified, not intractable, without status epilepticus Status: Chronic (8) Hypertension: Code(s): I10 - Essential (primary) hypertension Status: Acute Plan The patient presented to the emergency department via EMS for evaluation of cough and shortness of breath for the last 4 days or so. # bilateral pneumonia: With associated COPD exacerbation. On ceftriaxone and azithromycin continue # acute on chronic hypoxic respiratory failure: SpO2 and mid 70s on EMS arrival improved with nebulization. Likely COPD exacerbation with pneumonia. On 2 L oxygen at all times # acute COPD exacerbation: On Solu-Medrol and bronchodilators scheduled continue same # chronic CHF with preserved ejection fraction: BNP is 773 fairly at baseline. No leg swelling noted. Not in exacerbation. Will continue Lasix and spironolactone. # chronic anemia: With history of GI bleed from AVMs in the past. Intermittent transfusion required in the past. H&H remains stable continue to monitor. This was while she was on anticoagulation which has now been stopped. # history of lung cancer status post chemoradiation in remission; follows oncologist in [facility].? No evidence of active cancer # hx of stroke with right sided residual weakness, wheelchair bound # iron deficiency anemia hx.? 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 on Protonix bid. capsule endoscopy negative. # ckd stage III currently at baseline continue to monitor # history of PE November 2021 1 episode and hence anticoagulation was stopped since then particularly also because complicated by recurrent GI bleed # Seizure disorder; on keppra. no active seizure # DVT proph: SCDs # Code status: full code 09/18/2021 interval history: patient with shortness of breath multifactorial as patient has exacerbation of COPD being treated with steroid and bronchodilator there is also concern the patient has pneumonia patient is being treated ceftriaxone and azithromycin also concerning for CHF his patient the diastolic dysfunction patient being diuresed with furosemide 40 mg b.i.d. patient's symptoms are getting better not requiring as much oxygen however patient was feeling anxious on 09/17 most likely secondary to steroid, gave the patient hydroxyzine, today patient is not appear as anxious, will have a PT OT evaluate the patient continue to monitor Subjective Date/time seen: 09/18/22 13:53 Interval history: History reviewed. Feels about the same oxygen requirement has gone down. Still has cough and shortness of breath on exertion. Labs and x-rays were reviewed 09/18/2021 interval history: patient with shortness of breath multifactorial as patient has exacerbation of COPD being ezekiel
--- NOTE | 2022-09-18 17:13 | ECG_ITS ---
Measurements Intervals [place] Rate: 83 P: 77 KS: 148 QRS: 36 QRSD: 92 T: 52 QT: 370 QTc: 435 Interpretive Statements SINUS RHYTHM BASELINE ARTIFACT- I, II, III, AVR, AVL, AVF, V1-V3 NORMAL ECG COMPARED TO ECG 09/15/2022 06:28:14 SINUS RHYTHM NOW PRESENT Electronically Signed On 09-18-2022 19:07:41 [employer] LETTER CARRIER by Oli Meyers D.O.
[2022-09-18] MEDS: ATORVASTATIN 40 MG TABLET PO (21:53)
[2022-09-18] MEDS: MELATONIN 5 MG TABLET PO (21:53)
[2022-09-19] VITALS (16 sets, daily range): BP systolic 124–131; BP diastolic 57–81; PULSE 64–95; RESP 14–20; TEMP 36.3–36.6; O2SAT 92–97
[2022-09-19] MEDS: methylPREDNISolone SOD SUCC 125 MG VIAL 60 MG IV PUSH ×3 (05:51→17:00)
[2022-09-19] MEDS: hydrOXYzine HCL 25 MG TABLET PO (06:43)
[2022-09-19 07:11] LABS: Hematocrit 38.2 % (37.0-47.0); Hemoglobin 11.7 g/dL (12.0-15.0); Mean Corpuscular HGB Conc 30.6 g/dl (32-36); Mean Corpuscular Hemoglobin 25.4 pg (26-34); Mean Platelet Volume 9.4 fl (7.4-10.4); Platelet Count Result 321 k/mm3 (150-375); White Blood Count 11.4 K/mm3 (4.5-10.0)
[2022-09-19 07:25] LABS: Anion Gap 4 mmol/L (8-16); Blood Urea Nitrogen 40 mg/dL (7-17); Calcium 8.7 mg/dL (8.4-10.2); Carbon Dioxide 35 mmol/L (22-30); Chloride 97 mmol/L (98-107); Estimated CRCL calculation 41 ml/min; Estimated Glomerular Filt Rate 49; Glucose 117 mg/dL (65-110); Magnesium 2.2 mg/dL (1.6-2.3); Potassium 4.2 mmol/L (3.4-5.0); Sodium 136 mmol/L (137-145)
[2022-09-19] MEDS: ESCITALOPRAM OXALATE 10 MG TABLET PO (08:04)
[2022-09-19] MEDS: rOPINIRole HCL 1 MG TABLET BY MOUTH ×3 (08:04→16:56)
[2022-09-19] MEDS: levETIRAcetam 250 MG TABLET PO ×2 (08:04→22:56)
[2022-09-19] MEDS: FUROSEMIDE 40 MG TABLET PO ×2 (08:04→16:55)
[2022-09-19] MEDS: PANTOPRAZOLE 40 MG TABLET PO (08:04)
[2022-09-19] MEDS: GABAPENTIN 300 MG CAPSULE PO ×3 (08:04→16:55)
[2022-09-19] MEDS: guaiFENesin 12 HR 600 MG TABCR PO ×2 (08:04→22:56)
[2022-09-19] MEDS: AZITHROMYCIN 250 MG TABLET 500 MG PO (08:04)
[2022-09-19] MEDS: ASPIRIN 81 MG ENTERIC TABLET PO (08:04)
[2022-09-19] MEDS: CEFDINIR 300 MG CAPSULE PO ×2 (08:05→22:56)
[2022-09-19] MEDS: SPIRONOLACTONE 25 MG TABLET PO (08:05)
[2022-09-19] MEDS: POTASSIUM CHLORIDE 20 MEQ TABLET.ER PO (08:05)
[2022-09-19] MEDS: IPRATROPIUM BR 0.02% INH SOLN 0.5 MG/2.5 ML VIAL INHALATION ×3 (08:26→21:28)
[2022-09-19] MEDS: ALBUTEROL SULFATE NEB 2.5 MG/3 ML INH 5 MG INHALATION ×3 (08:26→21:29)
--- NOTE | 2022-09-19 09:06 | PCOTNOTE ---
Attempted to see patient this am, however patient was severely nauseated and dry heaving.
[2022-09-19] MEDS: ONDANSETRON INJ 4 MG/2 ML VIAL IV PUSH (09:28)
[2022-09-19] MEDS: MULTIVITAMINS THERAPEUTIC TAB (*BKC) 1 TABLET PO (12:08)
--- NOTE | 2022-09-19 14:21 | PM.DS ---
DS: Admitting Diagnosis Discharge Date 09/19/2022 Admitting Diagnosis Cough and shortness of breath. DS: Discharge Diagnosis Discharge Diagnosis (1) Shortness of breath: Code(s): R06.02 - Shortness of breath Status: Acute (2) Chronic obstructive pulmonary disease: Qualifiers: COPD type: COPD with acute exacerbation Qualified Code(s): J44.1 - Chronic obstructive pulmonary disease with (acute) exacerbation Code(s): J44.9 - Chronic obstructive pulmonary disease, unspecified Status: Acute (3) Community acquired pneumonia: Code(s): J18.9 - Pneumonia, unspecified organism Status: Acute (4) Chronic respiratory failure with hypoxia, on home oxygen therapy: Code(s): J96.11 - Chronic respiratory failure with hypoxia; Z99.81 - Dependence on supplemental oxygen Status: Acute (5) Diastolic congestive heart failure: Qualifiers: Heart failure chronicity: acute on chronic Qualified Code(s): I50.33 - Acute on chronic diastolic (congestive) heart failure Code(s): I50.30 - Unspecified diastolic (congestive) heart failure Status: Acute (6) Chronic kidney disease, stage 3: Code(s): N18.30 - Chronic kidney disease, stage 3 unspecified Status: Acute (7) Seizure disorder: Code(s): G40.909 - Epilepsy, unspecified, not intractable, without status epilepticus Status: Chronic (8) Hypertension: Code(s): I10 - Essential (primary) hypertension Status: Acute Plan The patient presented to the emergency department via EMS for evaluation of cough and shortness of breath for the last 4 days or so. # bilateral pneumonia: With associated COPD exacerbation. On ceftriaxone and azithromycin continue # acute on chronic hypoxic respiratory failure: SpO2 and mid 70s on EMS arrival improved with nebulization. Likely COPD exacerbation with pneumonia. On 2 L oxygen at all times # acute COPD exacerbation: On Solu-Medrol and bronchodilators scheduled continue same # chronic CHF with preserved ejection fraction: BNP is 773 fairly at baseline. No leg swelling noted. Not in exacerbation. Will continue Lasix and spironolactone. # chronic anemia: With history of GI bleed from AVMs in the past. Intermittent transfusion required in the past. H&H remains stable continue to monitor. This was while she was on anticoagulation which has now been stopped. # history of lung cancer status post chemoradiation in remission; follows oncologist in [facility].? No evidence of active cancer # hx of stroke with right sided residual weakness, wheelchair bound # iron deficiency anemia hx.? 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 on Protonix bid. capsule endoscopy negative. # ckd stage III currently at baseline continue to monitor # history of PE November 2021 1 episode and hence anticoagulation was stopped since then particularly also because complicated by recurrent GI bleed # Seizure disorder; on keppra. no active seizure # DVT proph: SCDs # Code status: full code 09/18/2021 interval history: patient with shortness of breath multifactorial as patient has exacerbation of COPD being treated with steroid and bronchodilator there is also concern the patient has pneumonia patient is being treated ceftriaxone and azithromycin also concerning for CHF his patient the diastolic dysfunction patient being diuresed with furosemide 40 mg b.i.d. patient's symptoms are getting better not requiring as much oxygen however patient was feeling anxious on 09/17 most likely secondary to steroid, gave the patient hydroxyzine, today patient is not appear as anxious, will have a PT OT evaluate the patient continue to monitor DS: Summary Hospital Course Reason for hospitalization: Cough and shortness of breath. Narrative: This is a pleasant 72-year-old female with history of pulmonary embolism, chronic respiratory failure on 2 L nasal cannula, chronic ob
[2022-09-19 19:17] LABS: Mycoplasma IgM Antibody Titer 508 U/mL (<770)
--- NOTE | 2022-09-19 19:26 | PC.NURSE ---
informed GILDA Murillo pt no IV access, possible discharge pending ambulance pick-up. solumetrol not d/c'd. Discharge medication prednisone, inquiring about ok to d/c solumetrol ordered scheduled q6hrs, awaiting call back.
[2022-09-19] MEDS: ATORVASTATIN 40 MG TABLET PO (20:01)
[2022-09-19] MEDS: FLUTICASONE/SALMETEROL 230-21 MCG INHALER 1 PUFF 2 PUFF INHALATION (21:28)
--- NOTE | 2022-09-19 23:41 | PC.NURSE ---
called SILVIO Orourke [phone] informed pt in route to facility spoke with Sanket.
== END 2022-09-19 23:40 | disposition home health service (06) | DRG 190 ==
LOC: ANHED 07:29 → ANHIMU 09:12 → ANH3MEDSUR 09-17 14:00 → ANHIMU 09-22 10:51
PROVIDERS: Emergency Medicine; Internal Medicine; Physician Assistant; Admitting Provider Student in an Organized Health Care Education/Training Program; Emergency Provider General Practice; PCP Internal Medicine; Visit Provider Family Medicine
DX: J44.0 Chronic obstructive pulmonary disease with (acute) lower respiratory infection (principal); J18.9 Pneumonia, unspecified organism; I13.0 Hypertensive heart and chronic kidney disease with heart failure and stage 1 through stage 4 chronic kidney disease, or unspecified chronic kidney disease; I50.32 Chronic diastolic (congestive) heart failure; I69.353 Hemiplegia and hemiparesis following cerebral infarction affecting right non-dominant side; J96.11 Chronic respiratory failure with hypoxia; J44.1 Chronic obstructive pulmonary disease with (acute) exacerbation; N18.30 Chronic kidney disease, stage 3 unspecified; I25.10 Atherosclerotic heart disease of native coronary artery without angina pectoris; D50.9 Iron deficiency anemia, unspecified; E78.5 Hyperlipidemia, unspecified; G40.909 Epilepsy, unspecified, not intractable, without status epilepticus; F32.A Depression, unspecified; F41.9 Anxiety disorder, unspecified; Z20.822 Contact with and (suspected) exposure to COVID-19; Z86.711 Personal history of pulmonary embolism; Z99.81 Dependence on supplemental oxygen; Z95.5 Presence of coronary angioplasty implant and graft; Z90.5 Acquired absence of kidney; Z87.891 Personal history of nicotine dependence; Z99.3 Dependence on wheelchair; Z85.118 Personal history of other malignant neoplasm of bronchus and lung
CPT/HCPCS: 36415; 36600; 71045; 80048; 80053; 82375; 82805; 83050; 83605; 83735; 83880; 85025; 85027; 86738; 87040; 87637; 93005; 94640; 94667; 94668; 96365; 96366; 96375; 97161; 97165; 97530; 97535; 99285; A9270; G0378; J0131; J0456; J0696; J2405; J2930; J7050

== ENCOUNTER 2022-11-17 11:21 | Outpatient (NON) | payer MEDICARE, SELFPAY ==
[2022-11-17 11:41] LABS: Hematocrit 39.3 % (35.0-42.0); Hemoglobin 12.3 g/dL (11.7-13.8); Mean Corpuscular HGB Conc 31.3 g/dL (32.0-36.0); Mean Corpuscular Hemoglobin 28.7 pg (27.0-31.0); Mean Corpuscular Volume 91.6 fL (78.0-102.0); Platelet Count Result 302 K/mm3 (150-420); Red Blood Count 4.29 M/mm3 (4.20-5.40); Red Cell Distribution Width 17.6 % (11.6-14.4); White Blood Count 8.7 K/mm3 (4.8-10.8)
[2022-11-17 12:08] LABS: Anion Gap 5 mmol/L (8-16); Blood Urea Nitrogen 16 mg/dL (7-18); Calcium 9.3 mg/dL (8.5-10.1); Carbon Dioxide 37 mmol/L (21-32); Chloride 103 mmol/L (98-108); Estimated Glomerular Filt Rate 38; Ferritin 38 ng/mL (8-252); Glucose 78 mg/dL (70-99); Iron 107 ug/dL (50-170); Osmolality Calculated 300 mOsm/kg (285-295); Percent Iron Saturation 33 % (12-57); Potassium 4.2 mmol/L (3.5-5.1); Sodium 145 mmol/L (136-145)
== END 2022-11-17 11:22 | disposition home or self-care (01) ==
LOC: CHSLAB 11:25
PROVIDERS: Visit Provider Internal Medicine Hematology & Oncology
DX: D64.9 Anemia, unspecified (principal)
CPT/HCPCS: 36415; 80048; 82728; 83540; 83550; 85027

== ENCOUNTER 2022-11-28 12:19 | Outpatient (CLI) | payer MEDICARE, MEDICAID, SELFPAY ==
[2022-11-28 13:27] LABS: Alveolar/Arterial O2 Gradient 86.3 mmHg; Base Excess ABG 9.3 mEq/l (+/-2.0); Carboxyhemoglobin 0.1 % THb (0-2.0); Fractional Inspired Oxygen 28 %; HCO3 ABG 35.7 mEq/l (22.0-26.0); Methemoglobin ABG 0.3 %THb (0-1.5); Oxygen Content ABG 16.1 %vol (16.0-22.0); PO2 FiO2 Ratio Arterial Blood 1.69 %; Reduced Hemoglobin 16.6 %THb (0-5.0); Total Hemoglobin 13.8 g/dL (12.0-18.0); pH ABG 7.422 (7.350-7.450)
[2022-11-28 13:31] LABS: Modified Allen's Test Pass; Oxygen Saturation ABG 83.1 % (95.0-100.0); PO2 ABG 47.3 mmHg (80.0-100.0); Site Drawn RIGHT RADIAL
[2022-11-28 13:32] LABS: Device NASAL CANNULA
[2022-11-28 14:00] VITALS: PULSE 76; O2SAT 84
[2022-11-28 14:01] VITALS: O2SAT 86
[2022-11-28 14:02] VITALS: O2SAT 92
[2022-11-28 14:05] VITALS: PULSE 79; PULSE 89; O2SAT 90; O2SAT 93
--- NOTE | 2022-11-28 15:17 | HOMEO2EVAL ---
Evaluation was performed at [facility] Home Oxygen Evaluation RC: Home Oxygen (O2) Evaluation Start: 11/28/22 15:15 Freq: Status: Active Protocol: RPE Activity Type Activity Date Activity User E-sign Co-sign Detail Recorded Client Recorded Date Recorded By Document 11/28/22 14:00 [email or web address] [email or web address] 11/28/22 15:17 ROSIE Document 11/28/22 14:01 ROSIE [email or web address] 11/28/22 15:17 ROSIE Document 11/28/22 14:02 ROSIE [email or web address] 11/28/22 15:17 ROSIE Document 11/28/22 14:05 ROSIE [email or web address] 11/28/22 15:17 ROSIE Document 11/28/22 14:05 ROSIE [email or web address] 11/28/22 15:17 ROSIE 11/28/22 11/28/22 11/28/22 14:00 14:01 14:02 Home O2 Evaluation [Oxygen] -Test Phase Resting Resting Resting -Oxygen Delivery Room Air Nasal Cannula Nasal Cannula -Oxygen Flow Rate (L/min) 1 2 [Pulse Oximetry] -Pulse Oximetry (90-100 %) 84 L 86 L 92 [Pulse Rate] -Pulse Rate (60-100 beats/min) 76 [Comments] -Home Oxygen Evaluation Comments [Charges] -Treatment Charges O2 Evaluation - Outpatient 11/28/22 11/28/22 14:05 14:05 Home O2 Evaluation [Oxygen] -Test Phase Exercise Resting -Oxygen Delivery Nasal Cannula Nasal Cannula -Oxygen Flow Rate (L/min) 2 2 [Pulse Oximetry] -Pulse Oximetry (90-100 %) 90 93 [Pulse Rate] -Pulse Rate (60-100 beats/min) 89 79 [Comments] -Home Oxygen Evaluation Comments PT REQUIRES 2 L AT REST AND WITH ACTIVITY [Charges] -Treatment Charges
--- NOTE | 2022-11-28 15:18 | PCRCNOTE ---
FAXED EVAL TO DR POST OFFICE STAFF, PT IS REQUESTING A POC. DR POST IS AWARE. UNABLE TO TOLERATE PULSE DOSE TANKS, UNABLE TO OPEN PORTABLE TANKS WITH TANK BURKS. POC WILL HELP PT STAY ACTIVE AND INDEPENDENT
--- NOTE | 2022-11-28 15:37 | P.PCNPFT_ITS ---
PFT Procedure Performed PFT Procedure Performed Spirometry with Pre/Post Bronchodilator Plethysmography (Lung Vol) Diffusing Cap (DLCO) Flow Vol Loop PFT Interpretation This is a pulmonary function test with pre and post-bronchodilator spirometry, plethysmography and diffusing capacity. The test was performed and results interpreted in accordance with the 2019 and 2005 ATS/ERS Task Force guidelines respectively using the Global Lung Function Initiative-2012 reference equations. Patient demonstrated good effort and cooperation. Reproducibility criteria were met. The quality of the pre bronchodilator spirometry maneuver was Grade A and post bronchodilator spirometry maneuver was Grade A. Findings: Spirometry: There is decreased maximal expiratory airflow at all lung volumes with concave expiratory flow tracing. The contour the inspiratory flow tracing is normal. pre bronchodilator FVC is 1.39 L, 48% predicted. The pre bronchodilator FEV1 is 0.59 L, 26% predicted. The pre bronchodilator FEV1: FVC ratio is 42%. The post bronchodilator FVC is 1.50 L, representing an 8% increase. The post bronchodilator FEV1 is 0.63 L, representing a 6% increase. The post bronchodilator FEV1: FVC ratio is 42%. Plethysmography: The total lung capacity is 4.40 L, 85% predicted. The functional residual capacity is 3.27 L, 110% predicted. The residual volume is 3.01 L, 133% predicted. Diffusing capacity: The diffusing capacity unadjusted for hemoglobin and carboxyhemoglobin is 5.2, 25% predicted. The diffusing capacity adjusted for alveolar volume is 2.58, 61% predicted. When compared to PFTs from [facility] on 06/20/2019 the post bronchodilator FVC has decreased from 2.10 L to 1.50 L. The post bronchodilator FEV1 has decreased from 0.80 L to 0.63 L. The total lung capacity is unchanged from 4.88 L to 4.40 L. The functional residual capacity is unchanged from 3.71 L to 3.27 L. The residual volume is unchanged from 3.24 L to 3.01 L. The diffusing capacity unadjusted from hemoglobin and carboxyhemoglobin is unchanged from 5.6 to 5.2. The diffusing capacity adjusted for alveolar volume is unchanged from 2.39 to 2.58. Impression: There is a very severe obstructive abnormality without significant improvement after inhaling a single dose of albuterol. The increase in residual volume is consistent with air trapping from an obstructive abnormality. The diffusing capacity unadjusted for hemoglobin and carboxyhemoglobin is severely decreased and remains mildly decreased when adjusted for alveolar volume. When compared to previous PFTs there has been a greater than anticipated time dependent decrease in the FVC and FEV1 with no significant change in the total lung capacity, functional residual capacity, residual volume or DLCO.
== END 2022-11-28 12:20 | disposition home or self-care (01) ==
LOC: ANHPFT 12:20
PROVIDERS: PCP Internal Medicine; Visit Provider Internal Medicine Pulmonary Disease
DX: J44.1 Chronic obstructive pulmonary disease with (acute) exacerbation (principal); R06.00 Dyspnea, unspecified; R94.2 Abnormal results of pulmonary function studies
CPT/HCPCS: 36600; 82375; 82805; 83050; 94060; 94618; 94726; 94729

== ENCOUNTER 2023-01-26 12:58 | Outpatient (NON) | payer MEDICARE, SELFPAY ==
[2023-01-26 13:21] LABS: Basophils Absolute Auto 0.04 K/mm3 (0.00-0.10); Basophils Percent Auto 0.5 % (0.0-1.0); Eosinophils Absolute Auto 0.27 K/mm3 (0.02-0.50); Eosinophils Percent Auto 3.4 % (1.0-6.0); Hematocrit 42.1 % (35.0-42.0); Hemoglobin 12.8 g/dL (11.7-13.8); Immature Granulocyte Absolute 0.02 K/mm3 (0.00-0.00); Immature Granulocyte Percent A 0.3 % (0.0-0.0); Lymphocytes Absolute Auto 1.32 K/mm3 (1.10-4.50); Lymphocytes Percent Auto 16.5 % (18.0-42.0); Mean Corpuscular HGB Conc 30.4 g/dL (32.0-36.0); Mean Corpuscular Hemoglobin 28.2 pg (27.0-31.0); Mean Corpuscular Volume 92.7 fL (78.0-102.0); Monocytes Absolute Auto 0.73 K/mm3 (0.10-0.90); Monocytes Percent Auto 9.1 % (2.0-11.0); Neutrophils Absolute Auto 5.6 K/mm3 (1.7-7.2); Neutrophils Percent Auto 70.2 % (50.0-70.0); Platelet Count Result 276 K/mm3 (150-420); Red Blood Count 4.54 M/mm3 (4.20-5.40); Red Cell Distribution Width 14.3 % (11.6-14.4)
[2023-01-26 13:34] LABS: Alanine Aminotransferase 23 U/L (14-59); Albumin Level 3.5 g/dL (3.4-5.0); Alkaline Phosphatase 74 U/L (46-116); Anion Gap 8 mmol/L (8-16); Aspartate Amino Transferase 23 U/L (15-37); Bilirubin,Total 0.4 mg/dL (0.00-1.00); Blood Urea Nitrogen 20 mg/dL (7-18); Calcium 9.1 mg/dL (8.5-10.1); Carbon Dioxide 36 mmol/L (21-32); Chloride 102 mmol/L (98-108); Estimated Glomerular Filt Rate 43; Glucose 77 mg/dL (70-99); Osmolality Calculated 303 mOsm/kg (285-295); Potassium 3.5 mmol/L (3.5-5.1); Sodium 146 mmol/L (136-145); Total Protein 6.6 g/dL (6.4-8.2)
== END 2023-01-26 12:59 | disposition home or self-care (01) ==
LOC: CHSLAB 13:00
PROVIDERS: Visit Provider Internal Medicine
DX: E86.0 Dehydration (principal); D64.0 Hereditary sideroblastic anemia
CPT/HCPCS: 80053; 85025

== ENCOUNTER 2023-02-12 13:38 | Outpatient (NON) | payer MEDICARE, SELFPAY ==
[2023-02-12 13:51] LABS: Basophils Absolute Auto 0.06 K/mm3 (0.00-0.10); Basophils Percent Auto 0.6 % (0.0-1.0); Eosinophils Absolute Auto 0.21 K/mm3 (0.02-0.50); Eosinophils Percent Auto 2.2 % (1.0-6.0); Hematocrit 39.5 % (35.0-42.0); Hemoglobin 12.1 g/dL (11.7-13.8); Immature Granulocyte Absolute 0.06 K/mm3 (0.00-0.00); Immature Granulocyte Percent A 0.6 % (0.0-0.0); Lymphocytes Absolute Auto 1.11 K/mm3 (1.10-4.50); Lymphocytes Percent Auto 11.8 % (18.0-42.0); Mean Corpuscular HGB Conc 30.6 g/dL (32.0-36.0); Mean Corpuscular Hemoglobin 28.3 pg (27.0-31.0); Mean Corpuscular Volume 92.3 fL (78.0-102.0); Mean Platelet Volume 10.3 fl (9.2-11.8); Monocytes Absolute Auto 0.56 K/mm3 (0.10-0.90); Neutrophils Absolute Auto 7.4 K/mm3 (1.7-7.2); Neutrophils Percent Auto 78.8 % (50.0-70.0); Platelet Count Result 329 K/mm3 (150-420); Red Blood Count 4.28 M/mm3 (4.20-5.40); White Blood Count 9.4 K/mm3 (4.8-10.8)
[2023-02-12 14:56] LABS: Ferritin 24 ng/mL (8-252); Iron 48 ug/dL (50-170); Percent Iron Saturation 16 % (12-57)
== END 2023-02-12 13:39 | disposition home or self-care (01) ==
LOC: CHSLAB 13:39
PROVIDERS: Visit Provider Internal Medicine Hematology & Oncology
DX: D64.9 Anemia, unspecified (principal)
CPT/HCPCS: 36415; 82728; 83540; 83550; 85025

== ENCOUNTER 2023-02-23 14:26 | Outpatient (NON) | payer MEDICARE, SELFPAY ==
[2023-02-23 14:46] LABS: Iron 51 ug/dL (50-170); Percent Iron Saturation 17 % (12-57)
== END 2023-02-23 14:27 | disposition home or self-care (01) ==
LOC: CHSLAB 14:28
PROVIDERS: Visit Provider Internal Medicine Hematology & Oncology
DX: D64.9 Anemia, unspecified (principal)
CPT/HCPCS: 36415; 83540; 83550

== ENCOUNTER 2023-04-02 11:44 | Outpatient (NON) | payer MEDICARE, SELFPAY ==
[2023-04-02 12:22] LABS: Appearance Urine Clear (Clear); Basophils Absolute Auto 0.04 K/mm3 (0.00-0.10); Basophils Percent Auto 0.5 % (0.0-1.0); Bilirubin Urine Negative (Negative); Blood Urine Negative (Negative); Color Urine Light Yellow (Yellow); Eosinophils Absolute Auto 0.29 K/mm3 (0.02-0.50); Eosinophils Percent Auto 3.6 % (1.0-6.0); Glucose Urine UA Negative (Negative); Hematocrit 42.8 % (35.0-42.0); Hemoglobin 13.4 g/dL (11.7-13.8); Immature Granulocyte Absolute 0.03 K/mm3 (0.00-0.00); Immature Granulocyte Percent A 0.4 % (0.0-0.0); Ketones Urine Negative (Negative); Leukocyte Esterase Ur Negative LEU/UL (Negative); Lymphocytes Absolute Auto 1.33 K/mm3 (1.10-4.50); Lymphocytes Percent Auto 16.7 % (18.0-42.0); Mean Corpuscular HGB Conc 31.3 g/dL (32.0-36.0); Mean Corpuscular Hemoglobin 28.3 pg (27.0-31.0); Mean Corpuscular Volume 90.5 fL (78.0-102.0); Mean Platelet Volume 10.7 fl (9.2-11.8); Monocytes Absolute Auto 0.87 K/mm3 (0.10-0.90); Monocytes Percent Auto 10.9 % (2.0-11.0); Neutrophils Absolute Auto 5.4 K/mm3 (1.7-7.2); Neutrophils Percent Auto 67.9 % (50.0-70.0); Nitrate Urine Negative (Negative); Platelet Count Result 321 K/mm3 (150-420); Protein Urine Negative (Negative); Red Blood Count 4.73 M/mm3 (4.20-5.40); Red Cell Distribution Width 15.3 % (11.6-14.4); Urobilinogen Urine 0.2 mg/dL (0.2-1.0)
[2023-04-02 12:30] LABS: Add Urine Microscopic? NO
[2023-04-02 12:55] LABS: Alanine Aminotransferase 27 U/L (14-59); Albumin Level 3.6 g/dL (3.4-5.0); Alkaline Phosphatase 82 U/L (46-116); Anion Gap 5 mmol/L (8-16); Aspartate Amino Transferase 21 U/L (15-37); Bilirubin,Total 0.7 mg/dL (0.00-1.00); Blood Urea Nitrogen 20 mg/dL (7-18); Calcium 9.5 mg/dL (8.5-10.1); Carbon Dioxide 39 mmol/L (21-32); Chloride 102 mmol/L (98-108); Cholesterol 160 mg/dL (0-200); Creatine Kinase 144 U/L (26-192); Estimated Glomerular Filt Rate 37; Ferritin 31 ng/mL (8-252); Glucose 83 mg/dL (70-99); HDL Direct 59 mg/dL (40-60); Iron 74 ug/dL (50-170); LDL Cholesterol Calculated 88 mg/dL (<130); NT Pro B Type Natriuretic Pept 437 pg/mL (0-125); Osmolality Calculated 303 mOsm/kg (285-295); Sodium 146 mmol/L (136-145); Total Protein 6.7 g/dL (6.4-8.2); Triglycerides 66 mg/dL (0-150)
[2023-04-06 13:03] LABS: Vitamin D 25 Hydroxy 123 ng/mL (30-100)
== END 2023-04-02 11:45 | disposition home or self-care (01) ==
LOC: CHSLAB 11:46
PROVIDERS: Visit Provider Internal Medicine
DX: M81.0 Age-related osteoporosis without current pathological fracture (principal); E78.2 Mixed hyperlipidemia; D64.9 Anemia, unspecified; R06.00 Dyspnea, unspecified; N39.0 Urinary tract infection, site not specified
CPT/HCPCS: 36415; 80053; 80061; 81003; 82306; 82550; 82728; 83540; 83880; 85025

== ENCOUNTER 2023-06-12 13:35 | Outpatient (CLI) | payer MEDICARE, SELFPAY ==
--- NOTE | ~2023-06-12 | XR_ITS ---
EXAMINATION: XR wrist LT min 3V, XR hand LT min 3V DATE: 06/12/2023 14:11 INDICATION: First digit pain at the left hand TECHNIQUE: 1. Posteroanterior, ulnar deviation, oblique, and lateral views of the left wrist were obtained. 2. Dorsal palmar, oblique and lateral views of the left hand were obtained. COMPARISON: None. FINDINGS: Alignment of the left hand and wrist is normal. No fracture identified. Mild osteoarthritis at the d istal radioulnar, radiocarpal and first carpal metacarpal joints. Negligible osteoarthritis at a few of the interphalangeal joints. No erosions to suggest inflammatory arthritis. Diffuse osteopenia. Sof t tissues are unremarkable. No focal soft tissue swelling. IMPRESSION: 1. 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 No acute osseous abnormal ity. Reviewed, dictated and finalized at location A. IMPRESSION: 1. 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 No acute osseous abnormality.
[2023-06-12 13:51] LABS: Basophils Absolute Auto 0.05 K/mm3 (0.00-0.10); Basophils Percent Auto 0.5 % (0.0-1.0); Eosinophils Absolute Auto 0.49 K/mm3 (0.02-0.50); Eosinophils Percent Auto 4.9 % (1.0-6.0); Hematocrit 43.1 % (35.0-42.0); Hemoglobin 13.6 g/dL (11.7-13.8); Immature Granulocyte Absolute 0.04 K/mm3 (0.00-0.00); Immature Granulocyte Percent A 0.4 % (0.0-0.0); Lymphocytes Absolute Auto 1.22 K/mm3 (1.10-4.50); Lymphocytes Percent Auto 12.2 % (18.0-42.0); Mean Corpuscular HGB Conc 31.6 g/dL (32.0-36.0); Mean Corpuscular Hemoglobin 27.5 pg (27.0-31.0); Mean Corpuscular Volume 87.1 fL (78.0-102.0); Mean Platelet Volume 9.6 fl (9.2-11.8); Monocytes Absolute Auto 0.97 K/mm3 (0.10-0.90); Monocytes Percent Auto 9.7 % (2.0-11.0); Neutrophils Absolute Auto 7.2 K/mm3 (1.7-7.2); Neutrophils Percent Auto 72.3 % (50.0-70.0); Platelet Count Result 358 K/mm3 (150-420); Red Blood Count 4.95 M/mm3 (4.20-5.40)
[2023-06-12 15:18] LABS: Alanine Aminotransferase 23 U/L (14-59); Albumin Level 3.2 g/dL (3.4-5.0); Alkaline Phosphatase 86 U/L (46-116); Anion Gap 7 mmol/L (8-16); Aspartate Amino Transferase 22 U/L (15-37); Bilirubin,Total 0.5 mg/dL (0.00-1.00); Blood Urea Nitrogen 15 mg/dL (7-18); Calcium 9.9 mg/dL (8.5-10.1); Carbon Dioxide 36 mmol/L (21-32); Chloride 100 mmol/L (98-108); Estimated Glomerular Filt Rate 47; Glucose 79 mg/dL (70-99); NT Pro B Type Natriuretic Pept 600 pg/mL (0-125); Osmolality Calculated 295 mOsm/kg (285-295); Potassium 3.4 mmol/L (3.5-5.1); Sodium 143 mmol/L (136-145); Total Protein 6.8 g/dL (6.4-8.2); Uric Acid 7.7 mg/dL (2.6-6.0)
== END 2023-06-12 13:36 | disposition home or self-care (01) ==
LOC: CHSIMG 13:37
PROVIDERS: PCP Internal Medicine; Visit Provider Nurse Practitioner Family
DX: M19.042 Primary osteoarthritis, left hand (principal); M19.032 Primary osteoarthritis, left wrist; I50.9 Heart failure, unspecified; N18.9 Chronic kidney disease, unspecified
CPT/HCPCS: 36415; 73110; 73130; 80053; 83880; 84550; 85025

== ENCOUNTER 2023-06-15 10:32 | Outpatient (NON) | payer MEDICARE, SELFPAY ==
[2023-06-15 11:19] LABS: Basophils Absolute Auto 0.06 K/mm3 (0.00-0.10); Basophils Percent Auto 0.5 % (0.0-1.0); Eosinophils Absolute Auto 0.23 K/mm3 (0.02-0.50); Eosinophils Percent Auto 1.8 % (1.0-6.0); Hematocrit 42.8 % (35.0-42.0); Hemoglobin 13.1 g/dL (11.7-13.8); Immature Granulocyte Absolute 0.09 K/mm3 (0.00-0.00); Immature Granulocyte Percent A 0.7 % (0.0-0.0); Lymphocytes Percent Auto 13.4 % (18.0-42.0); Mean Corpuscular HGB Conc 30.6 g/dL (32.0-36.0); Mean Corpuscular Hemoglobin 27.2 pg (27.0-31.0); Mean Corpuscular Volume 88.8 fL (78.0-102.0); Mean Platelet Volume 10.8 fl (9.2-11.8); Monocytes Absolute Auto 1.42 K/mm3 (0.10-0.90); Monocytes Percent Auto 11.2 % (2.0-11.0); Neutrophils Absolute Auto 9.2 K/mm3 (1.7-7.2); Neutrophils Percent Auto 72.4 % (50.0-70.0); Platelet Count Result 403 K/mm3 (150-420); Red Blood Count 4.82 M/mm3 (4.20-5.40); Red Cell Distribution Width 14.1 % (11.6-14.4); White Blood Count 12.7 K/mm3 (4.8-10.8)
[2023-06-15 12:04] LABS: Anion Gap 8 mmol/L (8-16); Blood Urea Nitrogen 18 mg/dL (7-18); Carbon Dioxide 34 mmol/L (21-32); Chloride 103 mmol/L (98-108); Estimated Glomerular Filt Rate 48; Ferritin 49 ng/mL (8-252); Folic Acid 10.4 ng/mL (8.6->20); Glucose 61 mg/dL (70-99); Iron 39 ug/dL (50-170); Osmolality Calculated 299 mOsm/kg (285-295); Percent Iron Saturation 15 % (12-57); Potassium 3.7 mmol/L (3.5-5.1); Sodium 145 mmol/L (136-145); Vitamin B12 677 pg/mL (193-986)
== END 2023-06-15 10:33 | disposition home or self-care (01) ==
LOC: CHSLAB 10:34
PROVIDERS: Visit Provider Internal Medicine Hematology & Oncology
DX: D64.9 Anemia, unspecified (principal)
CPT/HCPCS: 80048; 82607; 82728; 82746; 83540; 83550; 85025

== ENCOUNTER 2023-06-29 11:15 | Emergency (ER) | payer MEDICARE, MEDICAID, SELFPAY ==
[2023-06-29] VITALS (32 sets, daily range): BP systolic 96–136; BP diastolic 53–81; PULSE 72–106; RESP 15–27; TEMP 37.1; O2SAT 86–100
--- NOTE | ~2023-06-29 | US_ITS ---
EXAMINATION: US venous doppler LE DATE: 06/29/2023 12:50 INDICATION: Lower limb swelling, shortness of breath and elevated d-dimer. TECHNIQUE: Grayscale ultrasound images without and with compression and Doppler ultrasound images of the bilateral lower extremity veins were obtained. COMPARISON: None. FINDINGS: The visualized portions of right common femoral vein, profunda (deep) femoral vein, femoral vein, pop liteal vein, posterior tibial veins, peroneal veins, gastrocnemius vein and greater saphenous vein ou tflow are patent. The visualized portions of left common femoral vein, profunda femoral vein, femoral vein, popliteal v ein, posterior tibial veins, peroneal veins, gastrocnemius vein and greater saphenous vein outflow ar e patent. IMPRESSION: 1. No deep venous thrombosis in either lower limb. Reviewed, dictated and finalized at location A.
--- NOTE | ~2023-06-29 | XR_ITS ---
Portable chest x-ray Comparison: 09/15/2022 Clinical History: Shortness of breath Findings: There is interstitial prominence, with basilar predominance. No definite pleural effusion. Cardiomediastinal silhouette is stable. Bones and soft tissues are unremarkable. Impression: Chronic interstitial disease versus interstitial pulmonary edema. Correlate clinically. Reviewed, dictated and finalized at [facility]. Impression: Chronic interstitial disease versus interstitial pulmonary edema. Correlate cli nically.
--- NOTE | 2023-06-29 11:25 | ED.SOB ---
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 Patient and family at bedside note that the shortness of breath started around 06/20/2023. She went in for a primary care doctor appointment last Thursday, they noted that she should increase her oxygen from 2 L to 4 L at that time and prescribed her with Levaquin. The daughter at bedside was unable to fill that medication until last . Patient states that she does not believe the antibiotics have done anything for her symptoms. She has continued to have significant shortness of breath which is much worse with attempting to walk around her assisted living facility. She notes she gets significantly winded just from getting up to do a small task within her kitchen. She Denies any associated fever chills. She does note that she feels some chest congestion but is unable to cough up much sputum. She is supposed to be wearing a BiPAP at night but has been having difficulty wearing LEs due to issues with the mask and needing to take it off throughout the night. She did go into her primary care doctor's office today and they noted that she was still hypoxic and sent her into the emergency department for continued workup. Patient denies any associated chest pain. She does note some chronic lower extremity swelling which does not seem to have worsened from baseline. She does not believe she has put on any water weight. Related Data Home Medications Medication Instructions Recorded Confirmed acetaminophen 500 mg capsule 500 mg PO Q6H PRN Pain (Scale 11/24/19 06/29/23 Score 1-3) aspirin 81 mg tablet,delayed 81 mg PO DAILY 11/24/19 06/29/23 release (Adult Aspirin Regimen) atorvastatin 40 mg tablet 40 mg PO HS 11/24/19 06/29/23 escitalopram oxalate 20 mg tablet 10 mg PO DAILY 11/24/19 06/29/23 levetiracetam 250 mg tablet 250 mg PO Q12H 11/24/19 06/29/23 (Keppra) melatonin 5 mg capsule 5 mg PO HS 11/24/19 06/29/23 potassium chloride 20 mEq 20 meq PO DAILY 11/24/19 06/29/23 tablet,extended release multivitamin with folic acid 400 1 tablet PO DAILY 03/10/22 06/29/23 mcg tablet (Daily-Annie (with folic acid)) gabapentin 300 mg capsule 300 mg PO TID 04/14/22 06/29/23 umeclidinium 62.5 mcg/actuation 1 inh inhalation DAILY 05/01/22 06/29/23 blister powder for inhalation (Incruse Ellipta) fluticasone propionate 230 2 puff inhalation BID 05/21/22 06/29/23 mcg-salmeterol 21 mcg/actuation HFA inhaler (Advair HFA) ropinirole 1 mg tablet 1 mg TID 06/06/22 06/29/23 calcium-ergocalciferol (vit D2) 1 tablet PO WEEKLY 08/22/22 06/29/23 tablet ferrous sulfate 325 mg (65 mg 325 mg PO BID 08/22/22 06/29/23 iron) tablet levofloxacin 500 mg tablet 500 mg PO DAILY 06/29/23 06/29/23 Allergies Allergy/AdvReac Type Severity Reaction Status Date / Time iodine Allergy Unknown Unknown Verified 06/29/23 11:28 latex Allergy Unknown Unknown Verified 06/29/23 11:28 lorazepam Allergy Unknown Unknown Verified 06/29/23 11:28 ferrous sulfate AdvReac Other Verified 06/29/23 11:28 iohexol AdvReac Other Verified 06/29/23 11:28 [From contrast - CT, X-RAY] Review of Systems Review of Systems: All systems reviewed & are unremarkable except as noted in HPI and below PMFSH Past Medical History Medical History 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 Chronic kidney disease, stage 3 Chronic obstructive pulmonary disease Chronic respiratory failure with hypoxia, on home oxygen therapy Depression with anxiety Diastolic congestive heart failure Riri
--- NOTE | 2023-06-29 11:30 | ECG_ITS ---
Measurements Intervals [place] Rate: 87 P: 55 [place]: 169 QRS: 11 QRSD: 89 T: 32 QT: 363 QTc: 438 Interpretive Statements SINUS RHYTHM WITH OCCASIONAL VENTRICULAR PREMATURE COMPLEXES BASELINE ARTIFACT BORDERLINE ECG COMPARED TO ECG 09/18/2022 17:48:45 NO SIGNIFICANT CHANGES Electronically Signed On 06-29-2023 16:37:22 CDT by Elijah Roberts M.D.
[2023-06-29 11:57] LABS: Basophils Absolute Auto 0.06 K/mm3 (0.00-0.10); Basophils Percent Auto 0.4 % (0.0-1.0); Eosinophils Absolute Auto 0.74 K/mm3 (0.02-0.50); Eosinophils Percent Auto 5.4 % (1.0-6.0); Hematocrit 41.6 % (35.0-42.0); Hemoglobin 12.4 g/dL (11.7-13.8); Immature Granulocyte Absolute 0.07 K/mm3 (0.00-0.00); Immature Granulocyte Percent A 0.5 % (0.0-0.0); Lymphocytes Absolute Auto 0.64 K/mm3 (1.10-4.50); Lymphocytes Percent Auto 4.6 % (18.0-42.0); Mean Corpuscular HGB Conc 29.8 g/dL (32.0-36.0); Mean Corpuscular Hemoglobin 27.4 pg (27.0-31.0); Mean Corpuscular Volume 91.8 fL (78.0-102.0); Mean Platelet Volume 10.4 fl (9.2-11.8); Monocytes Absolute Auto 1.05 K/mm3 (0.10-0.90); Monocytes Percent Auto 7.6 % (2.0-11.0); Neutrophils Absolute Auto 11.2 K/mm3 (1.7-7.2); Neutrophils Percent Auto 81.5 % (50.0-70.0); Platelet Count Result 355 K/mm3 (150-420); Red Blood Count 4.53 M/mm3 (4.20-5.40); Red Cell Distribution Width 14.2 % (11.6-14.4); White Blood Count 13.8 K/mm3 (4.8-10.8)
[2023-06-29] MEDS: ALBUTEROL SULFATE NEB 2.5 MG/3 ML INH INHALATION (12:02)
[2023-06-29] MEDS: IPRATROPIUM BR 0.02% INH SOLN 0.5 MG/2.5 ML VIAL 1 MG INHALATION (12:02)
[2023-06-29] MEDS: methylPREDNISolone SOD SUCC 125 MG VIAL IV PUSH (12:02)
[2023-06-29 12:12] LABS: Partial Thromboplastin Time 26.8 SEC (23.90-30.70); Prothrombin Time 11.3 Seconds (9.50-12.10)
[2023-06-29 12:14] LABS: D Dimer 1.45 mg/L (0.19-0.50)
[2023-06-29 12:21] LABS: Alanine Aminotransferase 24 U/L (14-59); Albumin Level 2.6 g/dL (3.4-5.0); Alkaline Phosphatase 84 U/L (46-116); Anion Gap 6 mmol/L (8-16); Aspartate Amino Transferase 14 U/L (15-37); Bilirubin,Total 0.5 mg/dL (0.00-1.00); Blood Urea Nitrogen 14 mg/dL (7-18); Calcium 9.3 mg/dL (8.5-10.1); Carbon Dioxide 36 mmol/L (21-32); Chloride 102 mmol/L (98-108); Estimated CRCL calculation 38 ml/min; Estimated Glomerular Filt Rate 43; Glucose 94 mg/dL (70-99); Magnesium 1.9 mg/dL (1.8-2.4); NT Pro B Type Natriuretic Pept 876 pg/mL (0-125); Osmolality Calculated 298 mOsm/kg (285-295); Potassium 3.6 mmol/L (3.5-5.1); Sodium 144 mmol/L (136-145); Total Protein 7.1 g/dL (6.4-8.2); Troponin I 9.4 ng/L (0.00-60.4)
[2023-06-29 12:32] LABS: Influenza A QL RT-PCR Negative (Negative); Influenza B QL RT-PCR Negative (Negative); SARS-CoV-2 RNA PCR Negative (Negative)
[2023-06-29 12:34] LABS: RSV RNA, RT-PCR Negative (Negative)
[2023-06-29 13:15] LABS: Appearance Urine Clear (Clear); Bilirubin Urine Negative (Negative); Blood Urine Negative (Negative); Color Urine Light Yellow (Yellow); Glucose Urine UA Negative (Negative); Ketones Urine Negative (Negative); Leukocyte Esterase Ur Negative LEU/UL (Negative); Nitrate Urine Negative (Negative); Protein Urine Negative (Negative); Specific Grav Ur 1.015 (1.010-1.020); Urobilinogen Urine 0.2 mg/dL (0.2-1.0); pH Urine 6.5 (5.0-8.0)
[2023-06-29 13:16] LABS: Add Urine Microscopic? NO
--- NOTE | 2023-06-29 13:17 | PC.NURSE ---
PT HAS RETURNED FROM US, USED BEDSIDE COMMODE AND IS AWAITING RETURN CALL FROM [facility] AT THIS TIME. LOOSE COUGH NOTED UPON TRANSFER. PT WAS ABLE TO TRANSFER MUCH BETTER THAN WHEN SHE ARRIVED. PT RESP STATUS HAS IMPROVED POST NEB TX. DAUGHTER HAS LEFT FOR AN APPOINTMENT, SHE IS TO RETURN. PT IS AWAITING BLOOD CULTURES TO BE OBTAINED PRIOR TO INITIATING ABX. WILL CONTINUE TO MONITOR.
[2023-06-29] MEDS: DOXYCYCLINE HYCLATE 100 MG TABLET PO (13:33)
[2023-06-29] MEDS: ENOXAPARIN 100 MG/ML SYRINGE 76 MG SUB-Q (13:34)
[2023-06-29 13:36] LABS: HCO3 VBG 33.3 mEq/l (24.0-30.0); PCO2 VBG 60.4 mmHg (42.0-48.0); PO2 VBG 31.5 mmHg (35.0-45.0); pH VBG 7.36 (7.33-7.43)
[2023-06-29 13:37] LABS: Device ROOM AIR
--- NOTE | 2023-06-29 14:51 | PC.NURSE ---
PT SLEEPING UPON TRANSFER, EMS AT BEDSIDE. DAUGHTER HAS RETURNED AND AWARE OF PLAN OF CARE. PT SX GREATLY IMPROVED. BELONGINGS LIST COMPLETED.
--- NOTE | 2023-07-05 12:10 | PC.NURSE ---
final blood culture reports x2 reviewed. no growth after 5 days. no change in plan of care.
== END 2023-06-29 14:52 | disposition short-term general hospital (02) ==
PROVIDERS: Emergency Provider Student in an Organized Health Care Education/Training Program; PCP Internal Medicine
DX: J44.1 Chronic obstructive pulmonary disease with (acute) exacerbation (principal); J15.9 Unspecified bacterial pneumonia; R09.02 Hypoxemia; R79.1 Abnormal coagulation profile; I25.10 Atherosclerotic heart disease of native coronary artery without angina pectoris; I13.0 Hypertensive heart and chronic kidney disease with heart failure and stage 1 through stage 4 chronic kidney disease, or unspecified chronic kidney disease; N18.30 Chronic kidney disease, stage 3 unspecified; I50.30 Unspecified diastolic (congestive) heart failure; E78.5 Hyperlipidemia, unspecified; Z20.822 Contact with and (suspected) exposure to COVID-19; Z87.891 Personal history of nicotine dependence
CPT/HCPCS: 36415; 71045; 80053; 81003; 82803; 83735; 83880; 84484; 85025; 85380; 85610; 85730; 87040; 87637; 93005; 93970; 96365; 96372; 96375; 99285; A9270; J0696; J1650; J2930

== ENCOUNTER 2023-06-29 15:35 | Inpatient (IN) | payer MEDICARE, MEDICAID, SELFPAY ==
[2023-06-29] VITALS (7 sets, daily range): BP systolic 109–116; BP diastolic 66–68; PULSE 76–90; RESP 20–22; TEMP 36.2–36.4; O2SAT 90–94; BMI 27.5
--- NOTE | ~2023-06-29 | CT_ITS ---
EXAMINATION: CTA chest PE protocol DATE: 06/30/2023 14:52 INDICATION: Hypoxia. TECHNIQUE: Computed tomography angiography (CTA) of the chest was performed with 100 mL Omnipaque-350 intravenous contrast timed to evaluate the pulmonary arteries. Coronal maximum intensity projection 3D-reconstructions were created by the technologist. Automated exposure control and iterative reconst ruction technique were employed. The dose-length product was 419.69 mGy-cm. COMPARISON: Chest CT 08/12/2022 FINDINGS: There is severe emphysema. There is mild atelectasis bilaterally, worst in the lower lobes. No pleural effusion. The heart size is normal. There are coronary artery calcifications. No pericard ial effusion. There is no pulmonary embolus. There is a gallstone in the gallbladder which is normal in size. There is a ventral hernia containing colon. There is kyphosis and moderate spondylosis of th oracic spine. There is a chronic burst fracture of T6. There is a chronic compression fracture of L1. IMPRESSION: 1. No pulmonary embolus. 2. Severe emphysema. Reviewed, dictated and finalized at location E.
--- NOTE | ~2023-06-29 | NM_ITS ---
EXAMINATION: NM lung vent and perfusion DATE: 06/29/2023 18:44 INDICATION: Hypoxia. TECHNIQUE: 24.9 x 3 xenon-133 was given for ventilation images. 4.88 mCi Tc-99m MAA was administered intravenously for perfusion images. Scintigraphic images of the chest were obtained. COMPARISON: Chest single view 06/29/2023, chest CT 08/12/2022 FINDINGS: Ventilation images demonstrate small and moderate size defects in the upper and lower lobes on the si ngle breath image. There is diffuse retention in the lungs bilaterally on the washout images. Perfusi on images show matched large defects in the upper lobes and left lower lobe and matched moderate size d defects in right lower lobe. These findings are likely at least predominantly secondary to severe e mphysema. IMPRESSION: 1. Nondiagnostic (intermediate probability for pulmonary embolism). Reviewed, dictated and finalized at location E.
--- NOTE | 2023-06-29 16:21 | ADMGEN ---
This patient, Teresa Levi, was admitted to 3 [facility] Surg Room 332-02 from [facility]. Patient arrived per [facility] by [place]. Patient/family oriented to hospital policies and general routines including ID bracelet, bed and alarms, visiting hours, pain management, procedures, bathroom and other care routines, personal items, smoking policy, room service/diet, and visiting hours. Information on how to activate the Rapid Response Team has been discussed. Patient/Family are encouraged to report perceived risks to care and to ask questions if they do not understand what they are told or what they should do.
--- NOTE | 2023-06-29 19:50 | PM.IMHP ---
H&P: HPI History of Present Illness Date/Time: 06/29/23 18:30 Chief Complaint: Shortness of breath. Narrative: This is a very pleasant 73-year-old female with history of pulmonary embolism, chronic respiratory failure on 2 L nasal cannula, chronic obstructive pulmonary disease, stroke, seizures, coronary artery disease, hypertension, and other comorbidities who presented to the emergency department the [facility] early this morning for evaluation of shortness of breath. She has chronic shortness of breath though endorses increasing dyspnea on lesser and lesser exertion for the past 5 days or so. She was seen by her primary doctor last Thursday at which time she was told to increase her oxygen from 2 L to 4 L. She was prescribed Levaquin though it does not sound as though she had any imaging done at that time. It is now to the point where she is getting short of breath when doing small tasks at home. She has mild chest congestion and has a cough which is occasionally productive of clear sputum though she feels like she has more to cough up. She is post wear BiPAP at night however has difficulties wearing it; she frequently takes it off while asleep and does not remember doing so. She went back to her doctor today for a follow-up appointment and was directed to the ED for further evaluation. Initial concerns were for COPD exacerbation versus pneumonia versus CHF exacerbation or combination of the above. She was ambulated and desaturated to the 70s on 4 L when moving from a wheelchair to the stretcher. She was given a nebulizer treatment and Solu-Medrol. D-dimer was elevated however she has a contrast allergy and a solitary kidney the she is being transferred to this facility for V/Q scan. Lower extremity venous Doppler ultrasounds were negative for DVT. She was given a dose of Lovenox 1 milligram/kilogram x1 and she is being admitted in this setting. At the time my evaluation she is resting comfortably. She does have some wheezing and she is requesting a nebulizer treatment. She denies fever, chills, sweats, sinus congestion, sore throat, chest pain, pleuritic pain, palpitations, nausea, and vomiting. Review of Systems Review of Systems: Twelve systems were reviewed and are negative except for as per HPI. 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 Chronic kidney disease, stage 3 Chronic obstructive pulmonary disease Chronic respiratory failure with hypoxia, on home oxygen therapy Depression with anxiety Diastolic congestive heart failure Diastolic dysfunction Dyslipidemia Hypertension Occult blood in stools Pulmonary embolism (11/2021) Seizure disorder Small cell lung cancer Status post chemoradiotherapy. Surgical History Surgical History History of abdominal aortic aneurysm repair History of cardiac catheterization History of heart artery stent History of incisional hernia repair History of inguinal hernia repair History of left nephrectomy At age 3, done for unclear reasons. Family History Family History Sibling Family history of arthritis Lung transplant status, bilateral COPD (chronic obstructive pulmonary disease) Colon cancer Father Melanoma Mother No problems noted. Social History Social History Social History: Qfbal-ul-xaslebyt: Isabeal Ponce, friend. Code status: Full code. Smoking packs per day: 1 Smoking cigarettes per day: 20.0 Years smoked: 30 Smoking pack-years: 30.00 Smoking status: Former smoker Tobacco type: cigarettes Second hand tobacco smoke exposure: No Smoking end date: 09/14/05 Alcohol intake: never Alcohol use detai
[2023-06-29] MEDS: ALBUTEROL SULFATE NEB 2.5 MG/3 ML INH INHALATION (20:19)
[2023-06-29] MEDS: IPRATROPIUM BR 0.02% INH SOLN 0.5 MG/2.5 ML VIAL INHALATION (20:19)
[2023-06-29] MEDS: FLUTICASONE/SALMETEROL 230-21 MCG INHALER 1 PUFF 2 PUFF INHALATION (20:19)
[2023-06-29] MEDS: NYSTATIN 100,000 UNITS/ML SUSP 5 ML ORAL.SUSP 4 ML PO (21:05)
[2023-06-29] MEDS: MELATONIN 5 MG TABLET PO (21:06)
[2023-06-29] MEDS: ATORVASTATIN 40 MG TABLET PO (21:06)
[2023-06-29] MEDS: GABAPENTIN 300 MG CAPSULE PO (21:06)
[2023-06-29] MEDS: levETIRAcetam 250 MG TABLET PO (21:06)
[2023-06-29] MEDS: rOPINIRole HCL 1 MG TABLET BY MOUTH (21:06)
[2023-06-29] MEDS: ALPRAZolam (*CRX) 0.5 MG TABLET PO (21:06)
[2023-06-30] VITALS (19 sets, daily range): BP systolic 103–113; BP diastolic 59–89; PULSE 58–126; RESP 16–24; TEMP 36.1–36.3; O2SAT 88–95
[2023-06-30] MEDS: methylPREDNISolone SOD SUCC 125 MG VIAL 60 MG IV PUSH ×5 (00:33→23:54)
[2023-06-30] MEDS: ALBUTEROL SULFATE NEB 2.5 MG/3 ML INH INHALATION ×4 (02:17→20:12)
[2023-06-30] MEDS: IPRATROPIUM BR 0.02% INH SOLN 0.5 MG/2.5 ML VIAL INHALATION ×4 (02:17→20:12)
[2023-06-30] MEDS: ALPRAZolam (*CRX) 0.5 MG TABLET PO (06:13)
[2023-06-30 07:05] LABS: Hemoglobin 11.6 g/dL (12.0-15.0); Mean Corpuscular HGB Conc 31.4 g/dl (32-36); Mean Corpuscular Hemoglobin 27.6 pg (26-34); Mean Corpuscular Volume 88.1 fl (80-100); Mean Platelet Volume 10.2 fl (7.4-10.4); Platelet Count Result 340 k/mm3 (150-375); White Blood Count 8.1 K/mm3 (4.5-10.0)
[2023-06-30 07:19] LABS: Anion Gap 5 mmol/L (8-16); Blood Urea Nitrogen 23 mg/dL (7-17); Calcium 8.9 mg/dL (8.4-10.2); Carbon Dioxide 36 mmol/L (22-30); Chloride 98 mmol/L (98-107); Estimated CRCL calculation 42 ml/min; Estimated Glomerular Filt Rate 49; Glucose 145 mg/dL (65-110); Magnesium 2.3 mg/dL (1.6-2.3); Potassium 3.8 mmol/L (3.4-5.0); Sodium 139 mmol/L (137-145)
[2023-06-30] MEDS: FLUTICASONE/SALMETEROL 230-21 MCG INHALER 1 PUFF 2 PUFF INHALATION ×2 (08:01→20:12)
[2023-06-30] MEDS: POTASSIUM CHLORIDE 20 MEQ ER TABLET PO ×2 (09:31→17:31)
[2023-06-30] MEDS: NYSTATIN 100,000 UNITS/ML SUSP 5 ML ORAL.SUSP 4 ML PO ×4 (09:31→20:42)
[2023-06-30] MEDS: levETIRAcetam 250 MG TABLET PO ×2 (09:31→20:41)
[2023-06-30] MEDS: GABAPENTIN 300 MG CAPSULE PO ×3 (09:32→17:32)
[2023-06-30] MEDS: ESCITALOPRAM OXALATE 10 MG TABLET PO (09:32)
[2023-06-30] MEDS: rOPINIRole HCL 1 MG TABLET BY MOUTH ×3 (09:32→17:32)
[2023-06-30] MEDS: FERROUS SULFATE 325 MG TABLET DR PO ×2 (09:32→17:31)
[2023-06-30] MEDS: MULTIVITAMINS THERAPEUTIC TAB (*BKC) 1 TABLET PO (09:32)
[2023-06-30] MEDS: PANTOPRAZOLE 40 MG TABLET PO (09:32)
[2023-06-30] MEDS: levoFLOXacin 500 MG TABLET PO (09:33)
[2023-06-30] MEDS: ASPIRIN 81 MG ENTERIC TABLET PO (09:33)
[2023-06-30] MEDS: ENOXAPARIN 40 MG/0.4 ML SYRINGE SUB-Q (09:33)
[2023-06-30] MEDS: FUROSEMIDE 40 MG TABLET PO ×2 (09:33→17:31)
--- NOTE | 2023-06-30 11:55 | PM.IMPN ---
Progress Note: A&P Assessment and Plan (1) Acute exacerbation of chronic obstructive pulmonary disease: Code(s): J44.1 - Chronic obstructive pulmonary disease with (acute) exacerbation Status: Inactive Assessment and Plan: The patient transferred to the ED from an outside facility for evaluation of increasing SOB. CXR showing chronic interstitial dz vs pulmonary edema. BNP 876. Troponin negative x1. EKG showing NSR, no change. DDimer positive - see below Concern for COPD exacerbation: started on levaquin, scheduled bronchodilators and Solu-Medrol Although she denies feeling better, her cough is improved and exam better. Continue the same. Wean O2 as toelrated to baseline 2L. (2) D-dimer, elevated: Code(s): R79.89 - Other specified abnormal findings of blood chemistry Status: Inactive Assessment and Plan: DDimer was positive at the outside hospital at 1.45. DDimer has been elevated in the past. LE venous doppler negative for DVT VQ scan was nondiagnostic (intermediate probability) No true allergy to contrast (and on steroids anyway). Cr 1.1. CrCl 42. Discussed with patient and family about needing CTA. The POA is aware of the risk of contrast on the kidney. Start NS. Check CTA chest (3) Chronic respiratory failure with hypoxia, on home oxygen therapy: Code(s): J96.11 - Chronic respiratory failure with hypoxia; Z99.81 - Dependence on supplemental oxygen Status: Acute Assessment and Plan: Patient with acute on chronic respiratory failure. She is normally on 2L but has been up to 4L past few days related to above. Wean o2 as tolerated. (4) Chronic kidney disease, stage 3: Code(s): N18.30 - Chronic kidney disease, stage 3 unspecified Status: Acute Assessment and Plan: Baseline Cr 1.1-1.4 mostly. Cr stable and within her baseline. Follow closely after contrast exposure. (5) Diastolic congestive heart failure: Qualifiers: Heart failure chronicity: acute on chronic Qualified Code(s): I50.33 - Acute on chronic diastolic (congestive) heart failure Code(s): I50.30 - Unspecified diastolic (congestive) heart failure Status: Acute Assessment and Plan: Echo from May 2022 showing EF 55-60% with Grade I diastolic dysfunction. As above. (6) Hypertension: Code(s): I10 - Essential (primary) hypertension Status: Acute Assessment and Plan: Patient's blood pressure was reviewed on 06/30 Blood pressure remains well controlled. Will continue to monitor (7) Seizure disorder: Code(s): G40.909 - Epilepsy, unspecified, not intractable, without status epilepticus Status: Chronic Assessment and Plan: Patient with history of seizure disorder. Keppra continued. Plan DVT prophylaxis -Lovenox Code status -modified Subjective Date/time seen: 06/30/23 11:55 Interval history: 73yo female with COPD, chronic respiratory failure(2L), CKD (only has 1 kidney), dCHF and HTN here for shortness of breath. Patient denies CP or abd pain. No n/v. Eating okay. She feels 'terrible' but can not clarify what specific symptoms she has. Cough is nonproductive and seems to be decreasing. Friend (POA) in the room who supplements hx. Patietn has been wheezing. Denies myalgias. Friend states patient is at an assisted living and can transfer herself to on her own. She does not walk due to strke. Patient is supposed to be wearing a bipap at night and is mostly compliant. The patient is NOT allergic to contrast but family/patient was supposed to tell people that because she has one kidney and can not tolerate to much dye load. Exam Narrative: AF 97.0 108/60 72 94% 4L Gen - NARD lying semi-recumbent in bed Chest - distant but clear BS, prlonged expiratory phase but no wheezing CV - RRR S1/S2. Tele showing no significant dysrhythmias Abd - Soft, NT/ND, Positive BS. central hernia not
[2023-06-30] MEDS: SODIUM CHLORIDE 0.9% IV 1,000 ML 100 ML IV CONT (15:51)
[2023-06-30] MEDS: MELATONIN 5 MG TABLET PO (20:41)
[2023-06-30] MEDS: ATORVASTATIN 40 MG TABLET PO (20:41)
[2023-06-30] MEDS: FLUTICASONE PROPIONATE 0.05% NA SPR 16 GM BTL (*BKC) 1 SPRAY NASAL (20:43)
--- NOTE | 2023-06-30 21:06 | ECG_ITS ---
Measurements Intervals [place] Rate: 120 P: [place]: 180 QRS: 56 QRSD: 87 T: 65 QT: 295 QTc: 417 Interpretive Statements SINUS TACHYCARDIA BASELINE ARTIFACT BORDERLINE ECG COMPARED TO ECG 06/29/2023 11:40:56 HEART RATE HAS INCREASED Electronically Signed On 07-01-2023 8:57:26 CDT by Elijah Roberts M.D.
[2023-06-30] MEDS: guaiFENesin 12 HR 600 MG TABCR 1200 MG PO (21:59)
[2023-07-01] VITALS (22 sets, daily range): BP systolic 106–113; BP diastolic 53–68; PULSE 71–110; RESP 14–22; TEMP 36.1–36.4; O2SAT 78–95
[2023-07-01] MEDS: IPRATROPIUM BR 0.02% INH SOLN 0.5 MG/2.5 ML VIAL INHALATION ×4 (02:12→19:32)
[2023-07-01] MEDS: ALBUTEROL SULFATE NEB 2.5 MG/3 ML INH INHALATION ×4 (02:15→19:32)
[2023-07-01] MEDS: methylPREDNISolone SOD SUCC 125 MG VIAL 60 MG IV PUSH ×2 (05:16→12:27)
[2023-07-01 06:19] LABS: Hematocrit 38.1 % (37.0-47.0); Hemoglobin 11.8 g/dL (12.0-15.0); Mean Corpuscular Hemoglobin 27.5 pg (26-34); Mean Corpuscular Volume 88.8 fl (80-100); Mean Platelet Volume 9.8 fl (7.4-10.4); Platelet Count Result 353 k/mm3 (150-375); Red Blood Count 4.29 M/mm3 (4.2-5.4); Red Cell Distribution Width 14.6 % (11.5-14.5); White Blood Count 19.3 K/mm3 (4.5-10.0)
[2023-07-01 06:36] LABS: Anion Gap 6 mmol/L (8-16); Blood Urea Nitrogen 31 mg/dL (7-17); Calcium 8.7 mg/dL (8.4-10.2); Carbon Dioxide 31 mmol/L (22-30); Chloride 102 mmol/L (98-107); Estimated CRCL calculation 40 ml/min; Estimated Glomerular Filt Rate 44; Glucose 135 mg/dL (65-110); Potassium 3.9 mmol/L (3.4-5.0); Sodium 139 mmol/L (137-145)
[2023-07-01] MEDS: UMECLIDINIUM BROMIDE 62.5 MCG ELLIPTA 1 PUFF INHALATION (07:10)
[2023-07-01] MEDS: rOPINIRole HCL 1 MG TABLET BY MOUTH ×3 (08:58→17:04)
[2023-07-01] MEDS: NYSTATIN 100,000 UNITS/ML SUSP 5 ML ORAL.SUSP 4 ML PO ×4 (08:58→20:16)
[2023-07-01] MEDS: levoFLOXacin 500 MG TABLET PO (08:58)
[2023-07-01] MEDS: guaiFENesin 12 HR 600 MG TABCR 1200 MG PO ×2 (08:58→20:02)
[2023-07-01] MEDS: POTASSIUM CHLORIDE 20 MEQ ER TABLET PO ×2 (08:58→17:04)
[2023-07-01] MEDS: FERROUS SULFATE 325 MG TABLET DR PO ×2 (08:59→17:04)
[2023-07-01] MEDS: MULTIVITAMINS THERAPEUTIC TAB (*BKC) 1 TABLET PO (08:59)
[2023-07-01] MEDS: GABAPENTIN 300 MG CAPSULE PO ×3 (08:59→17:04)
[2023-07-01] MEDS: ENOXAPARIN 40 MG/0.4 ML SYRINGE SUB-Q (08:59)
[2023-07-01] MEDS: ESCITALOPRAM OXALATE 10 MG TABLET PO (08:59)
[2023-07-01] MEDS: FUROSEMIDE 40 MG TABLET PO ×2 (08:59→17:04)
[2023-07-01] MEDS: ASPIRIN 81 MG ENTERIC TABLET PO (08:59)
[2023-07-01] MEDS: PANTOPRAZOLE 40 MG TABLET PO (08:59)
[2023-07-01] MEDS: levETIRAcetam 250 MG TABLET PO ×2 (08:59→20:02)
--- NOTE | 2023-07-01 13:37 | PM.IMPN ---
Progress Note: A&P Assessment and Plan (1) Acute exacerbation of chronic obstructive pulmonary disease: Code(s): J44.1 - Chronic obstructive pulmonary disease with (acute) exacerbation Status: Inactive Assessment and Plan: The patient transferred to the ED from an outside facility for evaluation of increasing SOB. CXR showing chronic interstitial dz vs pulmonary edema. BNP 876. Troponin negative x1. EKG showing NSR, no change. DDimer positive - see below Concern for COPD exacerbation: started on levaquin, scheduled bronchodilators and Solu-Medrol Although she denies feeling better, her cough is improved and exam better. Continue the same. Wean O2 as tolerated to baseline 2L. DC IV steroids, start oral steroids tomorrow (2) D-dimer, elevated: Code(s): R79.89 - Other specified abnormal findings of blood chemistry Status: Inactive Assessment and Plan: DDimer was positive at the outside hospital at 1.45. DDimer has been elevated in the past. LE venous doppler negative for DVT VQ scan was nondiagnostic (intermediate probability) No true allergy to contrast (and on steroids anyway). Cr 1.1. CrCl 42. Discussed with patient and family about needing CTA. The POA is aware of the risk of contrast on the kidney. Start NS. Check CTA chest (3) Chronic respiratory failure with hypoxia, on home oxygen therapy: Code(s): J96.11 - Chronic respiratory failure with hypoxia; Z99.81 - Dependence on supplemental oxygen Status: Acute Assessment and Plan: Patient with acute on chronic respiratory failure. She is normally on 2L but has been up to 4L past few days related to above. Wean o2 as tolerated. (4) Chronic kidney disease, stage 3: Code(s): N18.30 - Chronic kidney disease, stage 3 unspecified Status: Acute Assessment and Plan: Baseline Cr 1.1-1.4 mostly. Cr stable and within her baseline. Follow closely after contrast exposure. (5) Diastolic congestive heart failure: Qualifiers: Heart failure chronicity: acute on chronic Qualified Code(s): I50.33 - Acute on chronic diastolic (congestive) heart failure Code(s): I50.30 - Unspecified diastolic (congestive) heart failure Status: Acute Assessment and Plan: Echo from May 2022 showing EF 55-60% with Grade I diastolic dysfunction. As above. (6) Hypertension: Code(s): I10 - Essential (primary) hypertension Status: Acute Assessment and Plan: Patient's blood pressure was reviewed on 07/01 Blood pressure remains well controlled. Will continue to monitor (7) Seizure disorder: Code(s): G40.909 - Epilepsy, unspecified, not intractable, without status epilepticus Status: Chronic Assessment and Plan: Patient with history of seizure disorder. Keppra continued. Plan DVT prophylaxis -Lovenox Code status -modified Subjective Date/time seen: 07/01/23 13:37 Interval history: 73yo female with COPD, chronic respiratory failure(2L), CKD (only has 1 kidney), dCHF and HTN here for shortness of breath. No overnight events noted. No chest pain or shortness of breath. No nausea, vomiting or diarrhea. No fevers or chills. Patient still feels quite weak and dyspneic with exertion. Review of Systems Review of Systems: 12 point review of systems was assessed and was negative except as noted in the HPI Exam Narrative: General: No acute distress, alert and oriented per baseline HEENT: Atraumatic, normocephalic, mucous membranes moist CV: Regular rate and rhythm, S1, S2 Lungs: Diminished throughout, scattered soft end expiratory wheezes Abdomen: Soft, nontender, nondistended Extremities: Normal to inspection Skin: No rashes noted, no lesions or wounds seen Psych: Euthymic, normal affect Objective Data Vital Signs Vital Signs: Vital Signs - 24 hr 06/30/23 13:39 06/30/23 13:39 06/30/23 13
[2023-07-01] MEDS: ACETAMINOPHEN 500 MG TABLET PO (14:14)
--- NOTE | 2023-07-01 14:37 | PM.CNPUL ---
Assessment and Plan Assessment and plan (1) COPD exacerbation: Code(s): J44.1 - Chronic obstructive pulmonary disease with (acute) exacerbation Status: Acute Assessment and Plan: Patient with tobacco use (35 PY, quit 2003), PFTs 11/28/2022 with FEV1 0.59 L, 26%, no bronchodilator response, airtrapping, decreased DLCO when corrected for alveolar volume, severe apical panlobular emphysema on CT scan of the neck from 03/04/2019 and chest on 08/13/2022, hypoxic respiratory failure on 2 L NC rest and activity since 2020, hypercarbic respiratory failure with ABG on 2 L was 7.42/56/47 and started on noninvasive ventilation 12/2022.? Wheelchair bound after she had a stroke in 2013 with dyspnea on exertion with wheelchair transfers and pivots? Echocardiogram from with LVEF 50-55%, grade 1 diastolic dysfunction, RVSP 37. ? Inpatient COPD exacerbation and pneumonia 09/15/2022. ? 09/15/2022 white blood cell count 18.8, eosinophils 1.3%=244/uL.? 08/22/2022 white blood cell count 10.5,? eosinophils 3.1% equals 326/uL. 06/29/2023, white blood cell count 13.8, eosinophils 5.4%=745. 06/29/2023: Patient admitted with COPD exacerbation treated with Solu-Medrol, Levaquin and bronchodilators. CT angiogram of the chest negative for PE, bibasilar atelectasis and severe panlobular emphysema. 07/01: Currently the patient tells me that she has not improved compared to 2 days ago. She still has dyspnea on exertion moving in bed, she is not wheezing, her cough is mildly improved with decreased mucus and she has no hemoptysis. She is afebrile. Currently she is on 4 L nasal cannula saturations 92%. White blood cell count 19.3, blood cultures negative, she is on 4 L nasal cannula saturations 92%. Plan: I will increase the frequency of her albuterol and ipratropium nebulizers from Q 6 hours to q.4 hours. I will continue Solu-Medrol at 40 mg IV q.6 hours. Continue guaifenesin 1200 mg p.o. b.i.d.. [facility] aid in sp[facility] expectoration. Continue Tessalon Perles 200 mg t.i.d.. Continue Levaquin 500 mg p.o. q.day. I will place the patient on a hospital noninvasive ventilator with the AVAPS mode as below. Will follow with you. (2) Respiratory failure with hypoxia and hypercapnia: Code(s): J96.91 - Respiratory failure, unspecified with hypoxia; J96.92 - Respiratory failure, unspecified with hypercapnia Status: Acute Assessment and Plan: Patient with chronic hypoxemic and hypercarbic respiratory failure from her COPD. She is on 2 L nasal cannula at rest and with ambulation at baseline and a home noninvasive ventilator with 2 l bleed in. I have a download from 12/20/2022 through 01/19/2023 from [employer]. ?No use until approximately 12/30/22. Patient is on VIVO45 machine with a rate of 12, tidal volume 400, EPAP minimum 5, maximum EPAP 10, minimal pressure support 10, maximal pressure support 15, rise time of 3. ?Total usage days is 42%.? Days with compliance greater than 4 hours is 19%.? Average EPAP is 8. Average peak pressure is 18, tidal volume 582, average leak 52. ?I interpret this download as poor compliance, adequate pressures and high leak. 07/01: Will place the patient on hospital AVAPS rate of 14, tidal volume 400, EPAP 8, minimal PSV 9, maximal PSV 25 and FiO2 32%. I will check a blood gas prior to removal. History of Present Illness History of Present Illness Consult date: 07/01/23 Chief complaint: Acute on Chronic Respiratory Failure Narrative: 07/01/2023: This is a new pulmonary consult for COPD exacerbation. ?history of GOLD grade 4 group E COPD with chronic hypoxemic respiratory failure on 2 L with rest and activity and chronic hypercarbic respiratory failure on noninvasive ventilation, diastolic dysfunction, lung CA, CAD with PCI in 1992, AAA repaired in 2007, CKD s/p nephrectomy in childhood. Patient is followed in the [facility] in last seen on 01/21/2023. From that office note: GOLD g
[2023-07-01] MEDS: methylPREDNISolone SOD SUCC 40 MG VIAL IV PUSH (17:03)
[2023-07-01] MEDS: BENZONATATE 100 MG CAPSULE 200 MG PO (17:04)
[2023-07-01] MEDS: HYDROcodone/acetaminophen (*CRX) 5-325 MG TABLET 1 TAB PO (17:22)
[2023-07-01] MEDS: MELATONIN 5 MG TABLET PO (20:02)
[2023-07-01] MEDS: ALPRAZolam (*CRX) 0.5 MG TABLET PO (20:02)
[2023-07-01] MEDS: ATORVASTATIN 40 MG TABLET PO (20:02)
[2023-07-01] MEDS: FLUTICASONE PROPIONATE 0.05% NA SPR 16 GM BTL (*BKC) 1 SPRAY NASAL (20:05)
[2023-07-02] VITALS (21 sets, daily range): BP systolic 120–125; BP diastolic 61–74; PULSE 59–106; RESP 16–22; TEMP 35.7–36.2; O2SAT 92–98
[2023-07-02] MEDS: IPRATROPIUM BR 0.02% INH SOLN 0.5 MG/2.5 ML VIAL INHALATION ×6 (00:43→20:07)
[2023-07-02] MEDS: ALBUTEROL SULFATE NEB 2.5 MG/3 ML INH INHALATION ×6 (00:43→20:07)
[2023-07-02 05:11] LABS: Alveolar/Arterial O2 Gradient 130.1 mmHg; Base Excess ABG 6.5 mEq/l (+/-2.0); Fractional Inspired Oxygen 40 %; HCO3 ABG 32.3 mEq/l (22.0-26.0); Oxygen Content ABG 17.7 %vol (16.0-22.0); Oxygen Saturation ABG 97.3 % (95.0-100.0); Oxyhemoglobin 96.3 % THb (90.0-100.0); PCO2 ABG 51.1 mmHg (35.0-45.0); PO2 ABG 96.3 mmHg (80.0-100.0); PO2 FiO2 Ratio Arterial Blood 2.41 %; pH ABG 7.418 (7.350-7.450)
[2023-07-02 05:14] LABS: Device NON-INVASIVE VENT; Modified Allen's Test Pass; Site Drawn RIGHT RADIAL
[2023-07-02 05:15] LABS: Non-Invasive Vent Rate 12 /MIN
[2023-07-02] MEDS: methylPREDNISolone SOD SUCC 40 MG VIAL IV PUSH ×2 (05:56→05:57)
[2023-07-02 09:14] LABS: Influenza A QL RT-PCR Negative (Negative); Influenza B QL RT-PCR Negative (Negative); RSV RNA, RT-PCR Negative (Negative); SARS-CoV-2 RNA PCR Negative (Negative)
[2023-07-02] MEDS: ASPIRIN 81 MG ENTERIC TABLET PO (09:30)
[2023-07-02] MEDS: guaiFENesin 12 HR 600 MG TABCR 1200 MG PO ×2 (09:30→21:41)
[2023-07-02] MEDS: ESCITALOPRAM OXALATE 10 MG TABLET PO (09:30)
[2023-07-02] MEDS: NYSTATIN 100,000 UNITS/ML SUSP 5 ML ORAL.SUSP 4 ML PO ×4 (09:30→21:42)
[2023-07-02] MEDS: rOPINIRole HCL 1 MG TABLET BY MOUTH ×3 (09:30→18:02)
[2023-07-02] MEDS: ENOXAPARIN 40 MG/0.4 ML SYRINGE SUB-Q (09:30)
[2023-07-02] MEDS: levoFLOXacin 500 MG TABLET PO (09:30)
[2023-07-02] MEDS: PANTOPRAZOLE 40 MG TABLET PO (09:31)
[2023-07-02] MEDS: GABAPENTIN 300 MG CAPSULE PO ×3 (09:31→18:02)
[2023-07-02] MEDS: FERROUS SULFATE 325 MG TABLET DR PO ×2 (09:31→18:02)
[2023-07-02] MEDS: BENZONATATE 100 MG CAPSULE 200 MG PO ×3 (09:31→18:02)
[2023-07-02] MEDS: FUROSEMIDE 40 MG TABLET PO ×2 (09:31→18:02)
[2023-07-02] MEDS: POTASSIUM CHLORIDE 20 MEQ ER TABLET PO ×2 (09:31→18:02)
[2023-07-02] MEDS: levETIRAcetam 250 MG TABLET PO ×2 (09:31→21:41)
[2023-07-02] MEDS: MULTIVITAMINS THERAPEUTIC TAB (*BKC) 1 TABLET PO (09:31)
--- NOTE | 2023-07-02 10:52 | PM.PNPUL ---
Progress Note: A&P Assessment and Plan (1) COPD exacerbation: Code(s): J44.1 - Chronic obstructive pulmonary disease with (acute) exacerbation Status: Acute Assessment and Plan: Patient with tobacco use (35 PY, quit 2003), PFTs 11/28/2022 with FEV1 0.59 L, 26%, no bronchodilator response, airtrapping, decreased DLCO when corrected for alveolar volume, severe apical panlobular emphysema on CT scan of the neck from 03/04/2019 and chest on 08/13/2022, hypoxic respiratory failure on 2 L NC rest and activity since 2020, hypercarbic respiratory failure with ABG on 2 L was 7.42/56/47 and started on noninvasive ventilation 12/2022.? Wheelchair bound after she had a stroke in 2013 with dyspnea on exertion with wheelchair transfers and pivots? Echocardiogram from with LVEF 50-55%, grade 1 diastolic dysfunction, RVSP 37. ? Inpatient COPD exacerbation and pneumonia 09/15/2022. ? 09/15/2022 white blood cell count 18.8, eosinophils 1.3%=244/uL.? 08/22/2022 white blood cell count 10.5,? eosinophils 3.1% equals 326/uL. 06/29/2023, white blood cell count 13.8, eosinophils 5.4%=745. 06/29/2023: Patient admitted with COPD exacerbation treated with Solu-Medrol, Levaquin and bronchodilators. CT angiogram of the chest negative for PE, bibasilar atelectasis and severe panlobular emphysema. 07/01: Currently the patient tells me that she has not improved compared to 2 days ago. She still has dyspnea on exertion moving in bed, she is not wheezing, her cough is mildly improved with decreased mucus and she has no hemoptysis. She is afebrile. Currently she is on 4 L nasal cannula saturations 92%. White blood cell count 19.3, blood cultures negative, she is on 4 L nasal cannula saturations 92%. Plan: I will increase the frequency of her albuterol and ipratropium nebulizers from Q 6 hours to q.4 hours. I will continue Solu-Medrol at 40 mg IV q.6 hours. Continue guaifenesin 1200 mg p.o. b.i.d.. I have ordered of [employer] flutter valve to aid in sputum expectoration. Continue Tessalon Perles 200 mg t.i.d.. Continue Levaquin 500 mg p.o. q.day. I will place the patient on a hospital noninvasive ventilator with the AVAPS mode as below. 07/02/23: Patient tells me she is feeling a little bit better overall but her breathing still is the same with shortness of breath at rest and dyspnea on exertion. She has walked to the bathroom. She denies cough, phlegm, hemoptysis. She has no wheezing. Currently she is on 4 L nasal cannula saturations 93%. Repeat COVID, influenza and RSV RT PCR test today negative. Plan: Patient has no wheezing on exam and I will decrease her Solu-Medrol to 20 mg IV q.6 hours. Continue albuterol and ipratropium nebulizers q.4 hours. Continue Tessalon Perles 200 t.i.d. guaifenesin 1200 mg p.o. q.i.d., the [employer] flutter valve. She has received a total of 7 days of Levaquin as an outpatient and an inpatient and currently she has no phlegm production I will discontinue the Levaquin today. Discuss with Lela Aguirre, will follow with you. (2) Respiratory failure with hypoxia and hypercapnia: Code(s): J96.91 - Respiratory failure, unspecified with hypoxia; J96.92 - Respiratory failure, unspecified with hypercapnia Status: Acute Assessment and Plan: Patient with chronic hypoxemic and hypercarbic respiratory failure from her COPD. She is on 2 L nasal cannula at rest and with ambulation at baseline and a home noninvasive ventilator with 2 l bleed in. I have a download from 12/20/2022 through 01/19/2023 from [employer]. ?No use until approximately 12/30/22. Patient is on VIVO45 machine with a rate of 12, tidal volume 400, EPAP minimum 5, maximum EPAP 10, minimal pressure support 10, maximal pressure support 15, rise time of 3. ?Total usage days is 42%.? Days with compliance greater than 4 hours is 19%.? Average EPAP is 8. Average peak pressure is 18, tidal volume 582, average leak 52. ?I interpret this download as poor compliance, adequate pr
[2023-07-02] MEDS: methylPREDNISolone SOD SUCC 40 MG VIAL 20 MG IV PUSH ×2 (12:25→18:02)
--- NOTE | 2023-07-02 14:01 | PM.IMPN ---
Progress Note: A&P Assessment and Plan (1) Acute exacerbation of chronic obstructive pulmonary disease: Code(s): J44.1 - Chronic obstructive pulmonary disease with (acute) exacerbation Status: Inactive Assessment and Plan: The patient transferred to the ED from an outside facility for evaluation of increasing SOB. CXR showing chronic interstitial dz vs pulmonary edema. BNP 876. Troponin negative x1. EKG showing NSR, no change. DDimer positive - see below Concern for COPD exacerbation: started on levaquin, scheduled bronchodilators and Solu-Medrol Although she denies feeling better, her cough is improved and exam better. Appreciate pulmonology consultation, IV steroid dose decreased today, repeat COVID test ordered and pending Wean O2 as tolerated to baseline 2L. (2) D-dimer, elevated: Code(s): R79.89 - Other specified abnormal findings of blood chemistry Status: Inactive Assessment and Plan: DDimer was positive at the outside hospital at 1.45. DDimer has been elevated in the past. LE venous doppler negative for DVT VQ scan was nondiagnostic (intermediate probability) No true allergy to contrast (and on steroids anyway). Cr 1.1. CrCl 42. Discussed with patient and family about needing CTA. The POA is aware of the risk of contrast on the kidney. CTA showed no PE, severe emphysema (3) Chronic respiratory failure with hypoxia, on home oxygen therapy: Code(s): J96.11 - Chronic respiratory failure with hypoxia; Z99.81 - Dependence on supplemental oxygen Status: Acute Assessment and Plan: Patient with acute on chronic respiratory failure. She is normally on 2L but has been up to 4L past few days related to above. Wean o2 as tolerated. (4) Chronic kidney disease, stage 3: Code(s): N18.30 - Chronic kidney disease, stage 3 unspecified Status: Acute Assessment and Plan: Baseline Cr 1.1-1.4 mostly. Cr stable and within her baseline. Follow closely after contrast exposure. (5) Diastolic congestive heart failure: Qualifiers: Heart failure chronicity: acute on chronic Qualified Code(s): I50.33 - Acute on chronic diastolic (congestive) heart failure Code(s): I50.30 - Unspecified diastolic (congestive) heart failure Status: Acute Assessment and Plan: Echo from May 2022 showing EF 55-60% with Grade I diastolic dysfunction. As above. (6) Hypertension: Code(s): I10 - Essential (primary) hypertension Status: Acute Assessment and Plan: Patient's blood pressure was reviewed on 07/02 Blood pressure remains well controlled. Will continue to monitor (7) Seizure disorder: Code(s): G40.909 - Epilepsy, unspecified, not intractable, without status epilepticus Status: Chronic Assessment and Plan: Patient with history of seizure disorder. Keppra continued. Plan DVT prophylaxis -Lovenox Code status -modified Subjective Date/time seen: 07/02/23 14:01 Interval history: 73yo female with COPD, chronic respiratory failure(2L), CKD (only has 1 kidney), dCHF and HTN here for shortness of breath. No overnight events noted. No chest pain or shortness of breath. No nausea, vomiting or diarrhea. No fevers or chills. Patient still feels quite weak and dyspneic with exertion. Review of Systems Review of Systems: 12 point review of systems was assessed and was negative except as noted in the HPI Exam Narrative: General: No acute distress, alert and oriented per baseline HEENT: Atraumatic, normocephalic, mucous membranes moist CV: Regular rate and rhythm, S1, S2 Lungs: Diminished throughout, scattered soft end expiratory wheezes Abdomen: Soft, nontender, nondistended Extremities: Normal to inspection Skin: No rashes noted, no lesions or wounds seen Psych: Euthymic, normal affect Objective Data Vital Signs Vital Signs: Vital Signs -
[2023-07-02] MEDS: MELATONIN 5 MG TABLET PO (21:41)
[2023-07-02] MEDS: ATORVASTATIN 40 MG TABLET PO (21:42)
[2023-07-02] MEDS: FLUTICASONE PROPIONATE 0.05% NA SPR 16 GM BTL (*BKC) 1 SPRAY NASAL (21:43)
[2023-07-02] MEDS: ALPRAZolam (*CRX) 0.5 MG TABLET PO (21:50)
[2023-07-03] VITALS (27 sets, daily range): BP systolic 132–136; BP diastolic 60–68; PULSE 4–102; RESP 18–20; TEMP 35.8–36.6; O2SAT 83–99
[2023-07-03] MEDS: methylPREDNISolone SOD SUCC 40 MG VIAL 20 MG IV PUSH ×2 (00:08→06:08)
[2023-07-03 05:03] LABS: Alveolar/Arterial O2 Gradient 131.9 mmHg; Base Excess ABG 6.2 mEq/l (+/-2.0); Fractional Inspired Oxygen 36 %; HCO3 ABG 31.5 mEq/l (22.0-26.0); Oxygen Content ABG 17.3 %vol (16.0-22.0); Oxygen Saturation ABG 94.3 % (95.0-100.0); Oxyhemoglobin 92.9 % THb (90.0-100.0); PCO2 ABG 47.7 mmHg (35.0-45.0); PO2 ABG 69.5 mmHg (80.0-100.0); PO2 FiO2 Ratio Arterial Blood 1.93 %; Total Hemoglobin 13.2 g/dL (12.0-18.0); pH ABG 7.437 (7.350-7.450)
[2023-07-03 05:04] LABS: Modified Allen's Test Pass; Site Drawn RIGHT RADIAL
[2023-07-03 05:05] LABS: Device OTHER DEVICE
[2023-07-03] MEDS: IPRATROPIUM BR 0.02% INH SOLN 0.5 MG/2.5 ML VIAL INHALATION ×5 (05:15→20:39)
[2023-07-03] MEDS: ALBUTEROL SULFATE NEB 2.5 MG/3 ML INH INHALATION ×5 (05:15→20:39)
[2023-07-03] MEDS: POTASSIUM CHLORIDE 20 MEQ ER TABLET PO ×2 (09:06→17:28)
[2023-07-03] MEDS: rOPINIRole HCL 1 MG TABLET BY MOUTH ×3 (09:06→17:28)
[2023-07-03] MEDS: ESCITALOPRAM OXALATE 10 MG TABLET PO (09:06)
[2023-07-03] MEDS: GABAPENTIN 300 MG CAPSULE PO ×3 (09:06→17:29)
[2023-07-03] MEDS: ASPIRIN 81 MG ENTERIC TABLET PO (09:06)
[2023-07-03] MEDS: levETIRAcetam 250 MG TABLET PO ×2 (09:07→22:17)
[2023-07-03] MEDS: PANTOPRAZOLE 40 MG TABLET PO (09:07)
[2023-07-03] MEDS: ENOXAPARIN 40 MG/0.4 ML SYRINGE SUB-Q (09:07)
[2023-07-03] MEDS: NYSTATIN 100,000 UNITS/ML SUSP 5 ML ORAL.SUSP 4 ML PO ×4 (09:07→22:19)
[2023-07-03] MEDS: FUROSEMIDE 40 MG TABLET PO ×2 (09:07→17:29)
[2023-07-03] MEDS: guaiFENesin 12 HR 600 MG TABCR 1200 MG PO ×2 (09:07→22:18)
[2023-07-03] MEDS: FERROUS SULFATE 325 MG TABLET DR PO ×2 (09:07→17:29)
[2023-07-03] MEDS: MULTIVITAMINS THERAPEUTIC TAB (*BKC) 1 TABLET PO (09:07)
[2023-07-03] MEDS: BENZONATATE 100 MG CAPSULE 200 MG PO ×3 (09:08→17:29)
[2023-07-03 09:31] LABS: Basophils Percent Auto 0.3 % (0.2-1.2); Hematocrit 41.8 % (37.0-47.0); Hemoglobin 12.9 g/dL (12.0-15.0); Immature Granulocyte Absolute 0.25 K/mm3 (0.00-0.031); Immature Granulocyte Percent A 1.8 % (0-0.5); Lymphocytes Absolute Auto 0.54 K/mm3 (0.9-3.2); Lymphocytes Percent Auto 3.9 % (18.3-44.2); Mean Corpuscular HGB Conc 30.9 g/dl (32-36); Mean Corpuscular Hemoglobin 27.2 pg (26-34); Mean Corpuscular Volume 88.2 fl (80-100); Mean Platelet Volume 9.7 fl (7.4-10.4); Monocytes Absolute Auto 0.3 K/mm3 (0.1-0.6); Neutrophils Absolute Auto 12.7 K/mm3 (1.3-6.7); Platelet Count Result 378 k/mm3 (150-375); Red Blood Count 4.74 M/mm3 (4.2-5.4); Red Cell Distribution Width 14.7 % (11.5-14.5); White Blood Count 13.8 K/mm3 (4.5-10.0)
[2023-07-03 09:35] LABS: Alanine Aminotransferase 25 U/L (6-35); Albumin Level 3.8 g/dL (3.5-5.1); Alkaline Phosphatase 70 U/L (38-126); Anion Gap 5 mmol/L (8-16); Aspartate Amino Transferase 26 U/L (14-36); Bilirubin,Total 0.6 mg/dL (0.2-1.3); Blood Urea Nitrogen 38 mg/dL (7-17); Calcium 9.1 mg/dL (8.4-10.2); Carbon Dioxide 35 mmol/L (22-30); Chloride 101 mmol/L (98-107); Estimated CRCL calculation 37 ml/min; Estimated Glomerular Filt Rate 40; Glucose 120 mg/dL (65-110); Potassium 3.9 mmol/L (3.4-5.0); Sodium 141 mmol/L (137-145)
--- NOTE | 2023-07-03 10:09 | PM.PNPUL ---
Progress Note: A&P Assessment and Plan (1) COPD exacerbation: Code(s): J44.1 - Chronic obstructive pulmonary disease with (acute) exacerbation Status: Acute Assessment and Plan: Patient with tobacco use (35 PY, quit 2003), PFTs 11/28/2022 with FEV1 0.59 L, 26%, no bronchodilator response, airtrapping, decreased DLCO when corrected for alveolar volume, severe apical panlobular emphysema on CT scan of the neck from 03/04/2019 and chest on 08/13/2022, hypoxic respiratory failure on 2 L NC rest and activity since 2020, hypercarbic respiratory failure with ABG on 2 L was 7.42/56/47 and started on noninvasive ventilation 12/2022.? Wheelchair bound after she had a stroke in 2013 with dyspnea on exertion with wheelchair transfers and pivots? Echocardiogram from with LVEF 50-55%, grade 1 diastolic dysfunction, RVSP 37. ? Inpatient COPD exacerbation and pneumonia 09/15/2022. ? 09/15/2022 white blood cell count 18.8, eosinophils 1.3%=244/uL.? 08/22/2022 white blood cell count 10.5,? eosinophils 3.1% equals 326/uL. 06/29/2023, white blood cell count 13.8, eosinophils 5.4%=745. 06/29/2023: Patient admitted with COPD exacerbation treated with Solu-Medrol, Levaquin and bronchodilators. CT angiogram of the chest negative for PE, bibasilar atelectasis and severe panlobular emphysema. 07/01: Currently the patient tells me that she has not improved compared to 2 days ago. She still has dyspnea on exertion moving in bed, she is not wheezing, her cough is mildly improved with decreased mucus and she has no hemoptysis. She is afebrile. Currently she is on 4 L nasal cannula saturations 92%. White blood cell count 19.3, blood cultures negative, she is on 4 L nasal cannula saturations 92%. Plan: I will increase the frequency of her albuterol and ipratropium nebulizers from Q 6 hours to q.4 hours. I will continue Solu-Medrol at 40 mg IV q.6 hours. Continue guaifenesin 1200 mg p.o. b.i.d.. I have ordered of [employer] flutter valve to aid in sputum expectoration. Continue Tessalon Perles 200 mg t.i.d.. Continue Levaquin 500 mg p.o. q.day. I will place the patient on a hospital noninvasive ventilator with the AVAPS mode as below. 07/02/23: Patient tells me she is feeling a little bit better overall but her breathing still is the same with shortness of breath at rest and dyspnea on exertion. She has walked to the bathroom. She denies cough, phlegm, hemoptysis. She has no wheezing. Currently she is on 4 L nasal cannula saturations 93%. Repeat COVID, influenza and RSV RT PCR test today negative. Plan: Patient has no wheezing on exam and I will decrease her Solu-Medrol to 20 mg IV q.6 hours. Continue albuterol and ipratropium nebulizers q.4 hours. Continue Tessalon Perles 200 t.i.d. guaifenesin 1200 mg p.o. q.i.d., the [employer] flutter valve. She has received a total of 7 days of Levaquin as an outpatient and an inpatient and currently she has no phlegm production I will discontinue the Levaquin today. 07/03: Patient continues to improve and feels at her baseline at rest. She pivots and did get out of bed yesterday. She is producing a small amount of phlegm that is clear in color. Patient is afebrile. Currently she is on 4 L with saturation 91%. White blood cell count 13.8, creatinine 1.3. Weight 81.5 kg. Plan: No wheezing today and I will change patient to prednisone 40 mg p.o. q.day. I will change her albuterol and ipratropium nebulizers from q.4 hours to q. 4 hours while awake. Continue Tessalon Perles 200 t.i.d., guaifenesin 1200 mg b.i.d. and [employer] flutter valve while awake. If patient remains clinically stable on 07/04 she will be ready from discharge from a pulmonary perspective on these pulmonary medicines. The patient tells me she may be discharged to [facility] (swing bed): Prednisone 40 mg p.o. q.day x4 days. Advair 230-21 at 2 puffs twice a day Incruse Ellipta 62.5 at 1 puff q.day. Albuterol 2 puffs q.4 hours p.r.n. shortness of bill
[2023-07-03] MEDS: predniSONE 20 MG TABLET 40 MG PO (11:10)
--- NOTE | 2023-07-03 15:16 | HOMEO2EVAL ---
Evaluation was performed at [facility] Home Oxygen Evaluation RC: Home Oxygen (O2) Evaluation Start: 07/03/23 09:11 Freq: ONCE Status: Active Protocol: RPE Activity Type Activity Date Activity User E-sign Co-sign Detail Recorded Client Recorded Date Recorded By Document 07/03/23 14:00 [email or web address] [email or web address] 07/03/23 15:16 DJO Document 07/03/23 14:05 [email or web address] [email or web address] 07/03/23 15:16 DJO Document 07/03/23 14:10 [email or web address] [email or web address] 07/03/23 15:16 DJO Document 07/03/23 14:15 [email or web address] [email or web address] 07/03/23 15:16 DJO Document 07/03/23 14:20 [email or web address] [email or web address] 07/03/23 15:16 DJO Document 07/03/23 14:25 [email or web address] [email or web address] 07/03/23 15:16 DJO Document 07/03/23 14:35 [email or web address] [email or web address] 07/03/23 15:16 DJO 07/03/23 07/03/23 07/03/23 14:00 14:05 14:10 Home O2 Evaluation [Oxygen] -Test Phase Resting Resting Resting -Oxygen Delivery Room Air Nasal Cannula Nasal Cannula -Oxygen Flow Rate (L/min) 2 3 [Pulse Oximetry] -Pulse Oximetry (90-100 %) 83 L 87 L 88 L [Pulse Rate] -Pulse Rate (60-100 beats/min) 95 84 92 [Evaluation] -Activity Tolerance [Charges] -Treatment Charges O2 Evaluation - Inpatient 07/03/23 07/03/23 07/03/23 14:15 14:20 14:25 Home O2 Evaluation [Oxygen] -Test Phase Resting Exercise Exercise -Oxygen Delivery Nasal Cannula Nasal Cannula Nasal Cannula -Oxygen Flow Rate (L/min) 4 4 5 [Pulse Oximetry] -Pulse Oximetry (90-100 %) 91 88 L 90 [Pulse Rate] -Pulse Rate (60-100 beats/min) 90 100 102 H [Evaluation] -Activity Tolerance Poor Poor [Charges] -Treatment Charges 07/03/23 14:35 Home O2 Evaluation [Oxygen] -Test Phase Resting -Oxygen Delivery Nasal Cannula -Oxygen Flow Rate (L/min) 4 [Pulse Oximetry] -Pulse Oximetry (90-100 %) 90 [Pulse Rate] -Pulse Rate (60-100 beats/min) 4 L [Evaluation] -Activity Tolerance [Charges] -Treatment Charges
--- NOTE | 2023-07-03 15:23 | PCRTNOTE ---
HOME O2 EVAL COMPLETE, 4L AT REST AND 5L WITH ACTIVITY. AMBULANCE TO TRANSFER PT HOME. NO TANK NEEDED FOR DISCHARGE
--- NOTE | 2023-07-03 16:15 | PM.IMPN ---
Progress Note: A&P Assessment and Plan (1) Acute exacerbation of chronic obstructive pulmonary disease: Code(s): J44.1 - Chronic obstructive pulmonary disease with (acute) exacerbation Status: Inactive Assessment and Plan: The patient transferred to the ED from an outside facility for evaluation of increasing SOB. CXR showing chronic interstitial dz vs pulmonary edema. BNP 876. Troponin negative x1. EKG showing NSR, no change. DDimer positive - see below Concern for COPD exacerbation: started on levaquin, scheduled bronchodilators and Solu-Medrol Although she denies feeling better, her cough is improved and exam better. Appreciate pulmonology consultation DC IV steroids, start prednisone (2) D-dimer, elevated: Code(s): R79.89 - Other specified abnormal findings of blood chemistry Status: Inactive Assessment and Plan: DDimer was positive at the outside hospital at 1.45. DDimer has been elevated in the past. LE venous doppler negative for DVT VQ scan was nondiagnostic (intermediate probability) No true allergy to contrast (and on steroids anyway). Cr 1.1. CrCl 42. Discussed with patient and family about needing CTA. The POA is aware of the risk of contrast on the kidney. CTA showed no PE, severe emphysema (3) Chronic respiratory failure with hypoxia, on home oxygen therapy: Code(s): J96.11 - Chronic respiratory failure with hypoxia; Z99.81 - Dependence on supplemental oxygen Status: Acute Assessment and Plan: Patient with acute on chronic respiratory failure. She is normally on 2L but has been up to 4L past few days related to above. Wean o2 as tolerated. (4) Chronic kidney disease, stage 3: Code(s): N18.30 - Chronic kidney disease, stage 3 unspecified Status: Acute Assessment and Plan: Baseline Cr 1.1-1.4 mostly. Cr stable and within her baseline. Follow closely after contrast exposure. (5) Diastolic congestive heart failure: Qualifiers: Heart failure chronicity: acute on chronic Qualified Code(s): I50.33 - Acute on chronic diastolic (congestive) heart failure Code(s): I50.30 - Unspecified diastolic (congestive) heart failure Status: Acute Assessment and Plan: Echo from May 2022 showing EF 55-60% with Grade I diastolic dysfunction. As above. (6) Hypertension: Code(s): I10 - Essential (primary) hypertension Status: Acute Assessment and Plan: Patient's blood pressure was reviewed on 07/02 Blood pressure remains well controlled. Will continue to monitor (7) Seizure disorder: Code(s): G40.909 - Epilepsy, unspecified, not intractable, without status epilepticus Status: Chronic Assessment and Plan: Patient with history of seizure disorder. Keppra continued. Plan DVT prophylaxis -Lovenox Code status -modified Subjective Date/time seen: 07/03/23 16:15 Interval history: 73yo female with COPD, chronic respiratory failure(2L), CKD (only has 1 kidney), dCHF and HTN here for shortness of breath. No overnight events noted. No chest pain or shortness of breath. No nausea, vomiting or diarrhea. No fevers or chills. Feeling much better than yesterday. Review of Systems Review of Systems: 12 point review of systems was assessed and was negative except as noted in the HPI Exam Narrative: General: No acute distress, alert and oriented per baseline HEENT: Atraumatic, normocephalic, mucous membranes moist CV: Regular rate and rhythm, S1, S2 Lungs: Diminished throughout, scattered soft end expiratory wheezes Abdomen: Soft, nontender, nondistended Extremities: Normal to inspection Skin: No rashes noted, no lesions or wounds seen Psych: Euthymic, normal affect Objective Data Vital Signs Vital Signs: Vital Signs - 24 hr 07/02/23 20:07 07/02/23 20:08 07/02/23 20:20 Temperature Pulse Rate 88 94 Respir
[2023-07-03] MEDS: ATORVASTATIN 40 MG TABLET PO (22:16)
[2023-07-03] MEDS: FLUTICASONE PROPIONATE 0.05% NA SPR 16 GM BTL (*BKC) 1 SPRAY NASAL (22:19)
[2023-07-03] MEDS: MELATONIN 5 MG TABLET PO (22:19)
[2023-07-04] VITALS (13 sets, daily range): BP systolic 120–127; BP diastolic 67–68; PULSE 55–94; RESP 20; TEMP 35.8–36.7; O2SAT 92–96
[2023-07-04] MEDS: IPRATROPIUM BR 0.02% INH SOLN 0.5 MG/2.5 ML VIAL INHALATION ×3 (07:34→14:57)
[2023-07-04] MEDS: ALBUTEROL SULFATE NEB 2.5 MG/3 ML INH INHALATION ×3 (07:34→14:57)
[2023-07-04] MEDS: predniSONE 20 MG TABLET 40 MG PO (08:59)
[2023-07-04] MEDS: BENZONATATE 100 MG CAPSULE 200 MG PO ×3 (09:00→18:12)
[2023-07-04] MEDS: POTASSIUM CHLORIDE 20 MEQ ER TABLET PO ×2 (09:00→18:12)
[2023-07-04] MEDS: PANTOPRAZOLE 40 MG TABLET PO (09:00)
[2023-07-04] MEDS: MULTIVITAMINS THERAPEUTIC TAB (*BKC) 1 TABLET PO (09:00)
[2023-07-04] MEDS: levETIRAcetam 250 MG TABLET PO (09:00)
[2023-07-04] MEDS: guaiFENesin 12 HR 600 MG TABCR 1200 MG PO (09:00)
[2023-07-04] MEDS: rOPINIRole HCL 1 MG TABLET BY MOUTH ×3 (09:00→18:13)
[2023-07-04] MEDS: NYSTATIN 100,000 UNITS/ML SUSP 5 ML ORAL.SUSP 4 ML PO ×3 (09:00→18:14)
[2023-07-04] MEDS: FUROSEMIDE 40 MG TABLET PO ×2 (09:00→18:13)
[2023-07-04] MEDS: ESCITALOPRAM OXALATE 10 MG TABLET PO (09:00)
[2023-07-04] MEDS: ASPIRIN 81 MG ENTERIC TABLET PO (09:01)
[2023-07-04] MEDS: FERROUS SULFATE 325 MG TABLET DR PO ×2 (09:01→18:12)
[2023-07-04] MEDS: GABAPENTIN 300 MG CAPSULE PO ×3 (09:01→18:12)
--- NOTE | 2023-07-04 10:03 | PM.DS ---
DS: Admitting Diagnosis Discharge Date 07/04/23 Admitting Diagnosis sob DS: Discharge Diagnosis Discharge Diagnosis (1) Acute exacerbation of chronic obstructive pulmonary disease: Code(s): J44.1 - Chronic obstructive pulmonary disease with (acute) exacerbation Status: Inactive Assessment and Plan: The patient transferred to the ED from an outside facility for evaluation of increasing SOB. CXR showing chronic interstitial dz vs pulmonary edema. BNP 876. Troponin negative x1. EKG showing NSR, no change. DDimer positive - see below Concern for COPD exacerbation: started on levaquin, scheduled bronchodilators and Solu-Medrol Although she denies feeling better, her cough is improved and exam better. Appreciate pulmonology consultation DC IV steroids, start prednisone (2) D-dimer, elevated: Code(s): R79.89 - Other specified abnormal findings of blood chemistry Status: Inactive Assessment and Plan: DDimer was positive at the outside hospital at 1.45. DDimer has been elevated in the past. LE venous doppler negative for DVT VQ scan was nondiagnostic (intermediate probability) No true allergy to contrast (and on steroids anyway). Cr 1.1. CrCl 42. Discussed with patient and family about needing CTA. The POA is aware of the risk of contrast on the kidney. CTA showed no PE, severe emphysema (3) Chronic respiratory failure with hypoxia, on home oxygen therapy: Code(s): J96.11 - Chronic respiratory failure with hypoxia; Z99.81 - Dependence on supplemental oxygen Status: Acute Assessment and Plan: Patient with acute on chronic respiratory failure. She is normally on 2L but has been up to 4L past few days related to above. Wean o2 as tolerated. (4) Chronic kidney disease, stage 3: Code(s): N18.30 - Chronic kidney disease, stage 3 unspecified Status: Acute Assessment and Plan: Baseline Cr 1.1-1.4 mostly. Cr stable and within her baseline. Follow closely after contrast exposure. (5) Diastolic congestive heart failure: Qualifiers: Heart failure chronicity: acute on chronic Qualified Code(s): I50.33 - Acute on chronic diastolic (congestive) heart failure Code(s): I50.30 - Unspecified diastolic (congestive) heart failure Status: Acute Assessment and Plan: Echo from May 2022 showing EF 55-60% with Grade I diastolic dysfunction. As above. (6) Hypertension: Code(s): I10 - Essential (primary) hypertension Status: Acute Assessment and Plan: Patient's blood pressure was reviewed on 07/02 Blood pressure remains well controlled. Will continue to monitor (7) Seizure disorder: Code(s): G40.909 - Epilepsy, unspecified, not intractable, without status epilepticus Status: Chronic Assessment and Plan: Patient with history of seizure disorder. Keppra continued. Plan DVT prophylaxis -Lovenox Code status -modified DS: Summary Hospital Course Hospital Course: 73yo female with COPD, chronic respiratory failure(2L), CKD (only has 1 kidney), dCHF and HTN here for shortness of breath. The patient transferred to the ED from an outside facility for evaluation of increasing SOB. CXR showing chronic interstitial dz vs pulmonary edema. BNP 876. Troponin negative x1. EKG showing NSR, no change. DDimer positive - see below Concern for COPD exacerbation: started on levaquin, scheduled bronchodilators and Solu-Medrol Although she denies feeling better, her cough is improved and exam better. Appreciate pulmonology consultation DC IV steroids, start prednisone DDimer was positive at the outside hospital at 1.45. DDimer has been elevated in the past. LE venous doppler negative for DVT VQ scan was nondiagnostic (intermediate probability) No true allergy to contrast (and on steroids anyway). Cr 1.1. CrCl 42. Discussed with patient and family about needing CTA. The POA is aware of the r
[2023-07-04] MEDS: ENOXAPARIN 40 MG/0.4 ML SYRINGE SUB-Q (13:00)
[2023-07-04 14:07] LABS: SARS-CoV-2 RNA PCR Negative (Negative)
--- NOTE | 2023-07-04 15:59 | PC.NURSE ---
This RN gave report to Sheryl QUINTERO at [facility] at 1559. Sheryl QUINTERO agreed to receive the pt and continue care.
[2023-07-07 04:29] LABS: Adenovirus DNA Not Detected (Not Detected); Chlamydophila pneumoniae Not Detected (Not Detected); Coronavirus 229E Not Detected (Not Detected); Coronavirus HKU1 Not Detected (Not Detected); Coronavirus NL63 Not Detected (Not Detected); Coronavirus OC43 Not Detected (Not Detected); Human Metapneumovirus Not Detected (Not Detected); Human Parainfluenza Virus 1 Not Detected (Not Detected); Human Parainfluenza Virus 2 Not Detected (Not Detected); Human Parainfluenza Virus 3 Not Detected (Not Detected); Human Parainfluenza Virus 4 Not Detected (Not Detected); Human RSV B Not Detected (Not Detected); Influenza A Not Detected (Not Detected); Influenza B Not Detected (Not Detected); Mycoplasma pneumoniae Not Detected (Not Detected); Rhinovirus/Enterovirus Detected (Not Detected)
[2023-07-08 12:58] LABS: Alpha-1-Antitrypsin, QN 173 mg/dL (83-199)
== END 2023-07-04 20:00 | disposition swing bed (61) | DRG 190 ==
PROVIDERS: Internal Medicine; Internal Medicine Pulmonary Disease; Physician Assistant; Admitting Provider Internal Medicine; PCP Internal Medicine; Visit Provider Student in an Organized Health Care Education/Training Program
DX: J44.1 Chronic obstructive pulmonary disease with (acute) exacerbation (principal); I50.33 Acute on chronic diastolic (congestive) heart failure; J96.21 Acute and chronic respiratory failure with hypoxia; I13.0 Hypertensive heart and chronic kidney disease with heart failure and stage 1 through stage 4 chronic kidney disease, or unspecified chronic kidney disease; I69.351 Hemiplegia and hemiparesis following cerebral infarction affecting right dominant side; N18.30 Chronic kidney disease, stage 3 unspecified; F41.8 Other specified anxiety disorders; I25.10 Atherosclerotic heart disease of native coronary artery without angina pectoris; G40.909 Epilepsy, unspecified, not intractable, without status epilepticus; Z20.822 Contact with and (suspected) exposure to COVID-19; Z99.81 Dependence on supplemental oxygen; Z86.711 Personal history of pulmonary embolism; Z85.118 Personal history of other malignant neoplasm of bronchus and lung; Z95.5 Presence of coronary angioplasty implant and graft; Z90.5 Acquired absence of kidney; Z87.891 Personal history of nicotine dependence; Z79.82 Long term (current) use of aspirin
CPT/HCPCS: 36415; 36600; 71275; 78582; 80048; 80053; 82103; 82104; 82805; 83735; 85025; 85027; 87633; 87635; 87637; 93005; 94002; 94618; 94640; 97110; 97161; 97166; 97530; 97535; A9270; A9540; A9558; J1650; J2920; J2930; J7030; J7512; Q9967

== ENCOUNTER 2023-07-04 20:37 | Inpatient (IN) | payer MEDICARE, MEDICAID, SELFPAY ==
[2023-07-04 20:56] VITALS: O2SAT 92
--- NOTE | 2023-07-04 20:59 | ADMGEN ---
This patient, Teresa Levi, was admitted to 2nd Floor Room 203-2. Patient oriented to hospital policies and general routines including ID bracelet, bed and alarms, visiting hours, pain management, procedures, bathroom and other care routines, personal items, smoking policy, room service/diet, and visiting hours. Information on how to activate the Rapid Response Team has been discussed. Patient are encouraged to report perceived risks to care and to ask questions if they do not understand what they are told or what they should do.
[2023-07-04 21:00] VITALS: O2SAT 92
[2023-07-04 21:13] VITALS: O2SAT 92
[2023-07-04] MEDS: ATORVASTATIN 40 MG TABLET PO (21:53)
[2023-07-04] MEDS: NYSTATIN 100,000 UNITS/ML SUSP 5 ML ORAL.SUSP 4 ML PO (21:53)
[2023-07-04] MEDS: levETIRAcetam 250 MG TABLET PO (21:53)
[2023-07-04] MEDS: FLUTICASONE PROPIONATE 0.05% NA SPR 16 GM BTL (*BKC) 1 SPRAY NASAL (21:53)
[2023-07-04] MEDS: MELATONIN 5 MG TABLET PO (21:54)
[2023-07-05] VITALS: BP 131/67; PULSE 62; RESP 16; TEMP 36.1; O2SAT 92
--- NOTE | 2023-07-05 00:13 | PC.NURSE ---
Pt is now laying in bed w/CPAP on that came w/pt on w/previous settings unchanged.
[2023-07-05 05:32] VITALS: O2SAT 96
[2023-07-05] MEDS: SALMET XINAFT/FLUTIC PROPIN 250 MCG/50 MCG INH CAP 1 PUFF INHALATION ×2 (06:29→09:11)
[2023-07-05 08:00] VITALS: BP 128/70; PULSE 75; RESP 17; TEMP 35.8; O2SAT 96
[2023-07-05] MEDS: ENOXAPARIN 40 MG/0.4 ML SYRINGE SUB-Q (09:11)
[2023-07-05] MEDS: PANTOPRAZOLE 40 MG TABLET PO (09:12)
[2023-07-05] MEDS: BENZONATATE 100 MG CAPSULE 200 MG PO ×3 (09:12→17:49)
[2023-07-05] MEDS: MULTIVITAMINS THERAPEUTIC TAB (*BKC) 1 TABLET PO (09:12)
[2023-07-05] MEDS: NYSTATIN 100,000 UNITS/ML SUSP 5 ML ORAL.SUSP 4 ML PO ×4 (09:12→20:24)
[2023-07-05] MEDS: rOPINIRole HCL 1 MG TABLET BY MOUTH ×3 (09:12→17:49)
[2023-07-05] MEDS: POTASSIUM CHLORIDE 20 MEQ ER TABLET PO ×2 (09:12→17:48)
[2023-07-05] MEDS: FUROSEMIDE 40 MG TABLET PO ×2 (09:13→17:49)
[2023-07-05] MEDS: GABAPENTIN 300 MG CAPSULE PO ×3 (09:13→17:49)
[2023-07-05] MEDS: levETIRAcetam 250 MG TABLET PO ×2 (09:13→20:24)
[2023-07-05] MEDS: DOCUSATE SODIUM 100 MG CAPSULE PO ×2 (09:13→17:49)
[2023-07-05] MEDS: predniSONE 20 MG TABLET 40 MG PO (09:13)
[2023-07-05] MEDS: ESCITALOPRAM OXALATE 10 MG TABLET PO (09:13)
[2023-07-05] MEDS: ASPIRIN 81 MG ENTERIC TABLET PO (09:13)
[2023-07-05] MEDS: FERROUS SULFATE 325 MG TABLET DR PO ×2 (09:14→17:49)
[2023-07-05] MEDS: UMECLIDINIUM/VILANTEROL 62.5-25 MCG ELLIPTA 1 PUFF INHALATION (09:23)
--- NOTE | 2023-07-05 14:38 | PM.IMHP ---
H&P: HPI History of Present Illness Date/Time: 07/05/23 14:38 Chief Complaint: Shortness of breath Narrative: This is a 73 year old pleasant female with a PMH of COPD on 4-5 L NC, CVA with right sided residual, CKD 3, COPD, depression, diastolic heart failure, HLD, HTN, seizures, PE, and small cell lung carcinoma. She presented to [facility] on 06/29 with complaints of shortness of breath and then transferred to [facility]. She has chronic SOB but was having increased dyspnea with minimal exertion. She also had an oxygen increase from 2 L nc baseline to 4 L nc. She had some mild chest congestion and cough as well. She was admitted for a COPD exacerbation and superimposed pneumonia. She was treated with IV antibiotics, steroids, adjustments to her BiPAP settings, and increased oxygen. She presents to [facility] for continued therapy as this episode has caused her considerable weakness. She normally was walking 4 laps at the assisted living (the [facility]) where she lives but now she fatigues with minimal transfers from her wheelchair to bed, also requiring increase in oxygen to 5 L with activity. 07/05-Today she appears well. She is obviously chronically ill but is able to have a conversation without becoming short of breath. She does say that she feels fatigued and her shortness of breath is present but stable. She denies dizziness, headache, chest pain, n/v/d. She had a bowel movement yesterday. She does say she feels jittery from the steroids and she has been having difficulties sleeping. I reviewed the plan of care with her and her POAIsabela. All questions and concerns were answered. 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 Chronic kidney disease, stage 3 Chronic obstructive pulmonary disease Chronic respiratory failure with hypoxia, on home oxygen therapy Depression with anxiety Diastolic congestive heart failure Diastolic dysfunction Dyslipidemia Hypertension Occult blood in stools Pulmonary embolism (11/2021) Seizure disorder Small cell lung cancer Status post chemoradiotherapy. Surgical History Surgical History History of abdominal aortic aneurysm repair History of cardiac catheterization History of heart artery stent History of incisional hernia repair History of inguinal hernia repair History of left nephrectomy At age 3, done for unclear reasons. Family History Family History Sibling Family history of arthritis Lung transplant status, bilateral COPD (chronic obstructive pulmonary disease) Colon cancer Father Melanoma Mother No problems noted. Social History Social History Social History: [id number]: Isabela Ponce, friend. Code status: Full code. Smoking packs per day: 1 Smoking cigarettes per day: 20.0 Years smoked: 36 Smoking pack-years: 36.00 Smoking status: Former smoker Tobacco type: cigarettes Second hand tobacco smoke exposure: No Smoking end date: 09/14/05 Alcohol intake: former Alcohol use details: No alcohol since 2005. Substance use: current Substance use type: prescription drug Lack of Transportation: No Lack of Food: Never True Current Housing: I Have Housing Concerned About Future Housing: No Difficulty Paying Gas/Electric Bills: No Difficulty Paying for Meds: No Currently Unemployed: No Education: High School Diploma/GED Difficulty w/ Childcare or Family Care: No Additional living arrangements comments: Lives in assisted living. Wheelchair-bound due to right-sided deficits from prior CVA.
[2023-07-05 16:00] VITALS: BP 128/70; PULSE 82; RESP 17; TEMP 35.8; O2SAT 97
[2023-07-05] MEDS: MELATONIN 5 MG TABLET PO (20:24)
[2023-07-05] MEDS: ATORVASTATIN 40 MG TABLET PO (20:24)
[2023-07-05] MEDS: FLUTICASONE PROPIONATE 0.05% NA SPR 16 GM BTL (*BKC) 1 SPRAY NASAL (20:24)
[2023-07-05] MEDS: ACETAMINOPHEN 325 MG TABLET 650 MG PO (22:51)
[2023-07-05] MEDS: guaiFENesin 12 HR 600 MG TABCR 1200 MG PO (22:52)
[2023-07-05 23:08] VITALS: BP 128/73; PULSE 65; RESP 19; TEMP 36.1; O2SAT 96
[2023-07-06 05:30] VITALS: O2SAT 93
[2023-07-06 05:42] LABS: Basophils Absolute Auto 0.01 K/mm3 (0.00-0.10); Basophils Percent Auto 0.1 % (0.0-1.0); Eosinophils Absolute Auto 0.19 K/mm3 (0.02-0.50); Hematocrit 39.1 % (35.0-42.0); Hemoglobin 12.3 g/dL (11.7-13.8); Immature Granulocyte Absolute 0.79 K/mm3 (0.00-0.00); Immature Granulocyte Percent A 8.4 % (0.0-0.0); Lymphocytes Percent Auto 11.7 % (18.0-42.0); Mean Corpuscular HGB Conc 31.5 g/dL (32.0-36.0); Mean Corpuscular Hemoglobin 27.5 pg (27.0-31.0); Mean Corpuscular Volume 87.3 fL (78.0-102.0); Mean Platelet Volume 9.9 fl (9.2-11.8); Monocytes Percent Auto 8.5 % (2.0-11.0); Neutrophils Absolute Auto 6.5 K/mm3 (1.7-7.2); Neutrophils Percent Auto 69.3 % (50.0-70.0); Platelet Count Result 372 K/mm3 (150-420); Red Blood Count 4.48 M/mm3 (4.20-5.40); Red Cell Distribution Width 14.7 % (11.6-14.4); White Blood Count 9.4 K/mm3 (4.8-10.8)
[2023-07-06 05:47] LABS: Alanine Aminotransferase 21 U/L (14-59); Albumin Level 2.2 g/dL (3.4-5.0); Alkaline Phosphatase 62 U/L (46-116); Anion Gap 6 mmol/L (8-16); Aspartate Amino Transferase 15 U/L (15-37); Bilirubin,Total 0.6 mg/dL (0.00-1.00); Blood Urea Nitrogen 34 mg/dL (7-18); Calcium 8.6 mg/dL (8.5-10.1); Carbon Dioxide 31 mmol/L (21-32); Chloride 105 mmol/L (98-108); Estimated CRCL calculation 38 ml/min; Estimated Glomerular Filt Rate 51; Glucose 73 mg/dL (70-99); Osmolality Calculated 300 mOsm/kg (285-295); Potassium 3.6 mmol/L (3.5-5.1); Sodium 142 mmol/L (136-145); Total Protein 5.6 g/dL (6.4-8.2)
[2023-07-06 06:22] LABS: Total Cells Counted 100
[2023-07-06 06:23] LABS: Band Neutrophils Percent 0 % (0-6); Basophils Percent Manual 0 % (0-1); Eosinophils Percent Manual 0 % (1-6); Lymphocytes Absolute Manual 1.31 K/mm3 (1.1-4.5); Lymphocytes Percent Manual 14 % (18-44); Metamyelocytes Percent 1 %; Monocytes Absolute Manual 0.84 K/mm3 (0.1-0.90); Monocytes Percent Manual 9 % (3-9); Myelocytes Percent 3 %; Neutrophils Absolute Manual 6.86 K/mm3 (1.7-7.2); Neutrophils Percent Manual 73 % (46-73); Platelet Estimate Adequate (Adequate); Schistocytes None Seen (NORMAL)
[2023-07-06] MEDS: SALMET XINAFT/FLUTIC PROPIN 250 MCG/50 MCG INH CAP 1 PUFF INHALATION ×2 (06:38→18:25)
[2023-07-06 08:00] VITALS: BP 114/63; PULSE 62; RESP 16; TEMP 36.2; O2SAT 93
[2023-07-06] MEDS: predniSONE 20 MG TABLET 40 MG PO (08:53)
[2023-07-06] MEDS: ASPIRIN 81 MG ENTERIC TABLET PO (08:54)
[2023-07-06] MEDS: BENZONATATE 100 MG CAPSULE 200 MG PO ×3 (08:54→17:04)
[2023-07-06] MEDS: DOCUSATE SODIUM 100 MG CAPSULE PO ×2 (08:54→17:06)
[2023-07-06] MEDS: PANTOPRAZOLE 40 MG TABLET PO (08:55)
[2023-07-06] MEDS: GABAPENTIN 300 MG CAPSULE PO ×3 (08:55→17:05)
[2023-07-06] MEDS: ESCITALOPRAM OXALATE 10 MG TABLET PO (08:56)
[2023-07-06] MEDS: rOPINIRole HCL 1 MG TABLET BY MOUTH ×3 (08:56→17:05)
[2023-07-06] MEDS: levETIRAcetam 250 MG TABLET PO ×2 (08:56→20:16)
[2023-07-06] MEDS: MULTIVITAMINS THERAPEUTIC TAB (*BKC) 1 TABLET PO (08:57)
[2023-07-06] MEDS: FUROSEMIDE 40 MG TABLET PO ×2 (08:57→17:06)
[2023-07-06] MEDS: POTASSIUM CHLORIDE 20 MEQ ER TABLET PO ×2 (08:57→17:05)
[2023-07-06] MEDS: FERROUS SULFATE 325 MG TABLET DR PO ×2 (08:58→17:06)
[2023-07-06] MEDS: UMECLIDINIUM/VILANTEROL 62.5-25 MCG ELLIPTA 1 PUFF INHALATION (08:58)
[2023-07-06] MEDS: NYSTATIN 100,000 UNITS/ML SUSP 5 ML ORAL.SUSP 4 ML PO ×4 (08:58→20:15)
[2023-07-06] MEDS: ENOXAPARIN 40 MG/0.4 ML SYRINGE SUB-Q (08:59)
[2023-07-06 16:00] VITALS: BP 104/59; PULSE 72; RESP 16; TEMP 36.7; O2SAT 97
[2023-07-06] MEDS: FLUTICASONE PROPIONATE 0.05% NA SPR 16 GM BTL (*BKC) 1 SPRAY NASAL (20:15)
[2023-07-06] MEDS: ATORVASTATIN 40 MG TABLET PO (20:16)
[2023-07-06] MEDS: ACETAMINOPHEN 325 MG TABLET 650 MG PO (20:16)
[2023-07-06] MEDS: MELATONIN 5 MG TABLET PO (20:16)
[2023-07-06 23:25] VITALS: BP 116/67; PULSE 70; RESP 20; TEMP 36.3; O2SAT 93
[2023-07-07 05:30] VITALS: O2SAT 97
[2023-07-07] MEDS: SALMET XINAFT/FLUTIC PROPIN 250 MCG/50 MCG INH CAP 1 PUFF INHALATION ×2 (05:53→18:02)
[2023-07-07 08:00] VITALS: BP 119/72; PULSE 71; RESP 16; TEMP 36.1; O2SAT 93
[2023-07-07] MEDS: ENOXAPARIN 40 MG/0.4 ML SYRINGE SUB-Q (08:48)
[2023-07-07] MEDS: PANTOPRAZOLE 40 MG TABLET PO (08:49)
[2023-07-07] MEDS: rOPINIRole HCL 1 MG TABLET BY MOUTH ×3 (08:49→16:25)
[2023-07-07] MEDS: GABAPENTIN 300 MG CAPSULE PO ×3 (08:50→16:26)
[2023-07-07] MEDS: POTASSIUM CHLORIDE 20 MEQ ER TABLET PO ×2 (08:50→16:26)
[2023-07-07] MEDS: NYSTATIN 100,000 UNITS/ML SUSP 5 ML ORAL.SUSP 4 ML PO ×4 (08:50→20:46)
[2023-07-07] MEDS: ESCITALOPRAM OXALATE 10 MG TABLET PO (08:51)
[2023-07-07] MEDS: FUROSEMIDE 40 MG TABLET PO ×2 (08:51→16:26)
[2023-07-07] MEDS: MULTIVITAMINS THERAPEUTIC TAB (*BKC) 1 TABLET PO (08:51)
[2023-07-07] MEDS: DOCUSATE SODIUM 100 MG CAPSULE PO ×2 (08:51→16:25)
[2023-07-07] MEDS: levETIRAcetam 250 MG TABLET PO ×2 (08:52→20:45)
[2023-07-07] MEDS: predniSONE 20 MG TABLET 40 MG PO (08:52)
[2023-07-07] MEDS: BENZONATATE 100 MG CAPSULE 200 MG PO ×3 (08:52→16:25)
[2023-07-07] MEDS: FERROUS SULFATE 325 MG TABLET DR PO ×2 (08:53→16:26)
[2023-07-07] MEDS: ASPIRIN 81 MG ENTERIC TABLET PO (08:53)
[2023-07-07] MEDS: UMECLIDINIUM/VILANTEROL 62.5-25 MCG ELLIPTA 1 PUFF INHALATION (08:54)
[2023-07-07 16:00] VITALS: BP 123/58; PULSE 63; RESP 16; TEMP 36.5; O2SAT 95
[2023-07-07] MEDS: ARTIFICIAL TEARS OPHTH SOLN 15 ML BOTTLE 1 DROP EACH EYE ×2 (17:03→20:45)
[2023-07-07 20:00] VITALS: PULSE 63; RESP 16; O2SAT 95
[2023-07-07] MEDS: MELATONIN 5 MG TABLET PO (20:45)
[2023-07-07] MEDS: ACETAMINOPHEN 325 MG TABLET 650 MG PO (20:46)
[2023-07-07] MEDS: ATORVASTATIN 40 MG TABLET PO (20:46)
[2023-07-07] MEDS: FLUTICASONE PROPIONATE 0.05% NA SPR 16 GM BTL (*BKC) 1 SPRAY NASAL (20:47)
[2023-07-08] VITALS: BP 113/70; PULSE 84; RESP 17; TEMP 36.6; O2SAT 97
[2023-07-08 05:30] VITALS: O2SAT 96
[2023-07-08] MEDS: SALMET XINAFT/FLUTIC PROPIN 250 MCG/50 MCG INH CAP 1 PUFF INHALATION ×2 (06:03→18:07)
[2023-07-08] MEDS: ARTIFICIAL TEARS OPHTH SOLN 15 ML BOTTLE 1 DROP EACH EYE ×3 (06:03→21:02)
[2023-07-08 08:00] VITALS: BP 106/65; PULSE 67; PULSE 68; RESP 14; TEMP 36.4; O2SAT 97
[2023-07-08] MEDS: GABAPENTIN 300 MG CAPSULE PO ×3 (09:13→16:23)
[2023-07-08] MEDS: BENZONATATE 100 MG CAPSULE 200 MG PO ×3 (09:13→16:23)
[2023-07-08] MEDS: predniSONE 20 MG TABLET 40 MG PO (09:14)
[2023-07-08] MEDS: FUROSEMIDE 40 MG TABLET PO ×2 (09:14→16:25)
[2023-07-08] MEDS: FERROUS SULFATE 325 MG TABLET DR PO ×2 (09:14→16:24)
[2023-07-08] MEDS: MULTIVITAMINS THERAPEUTIC TAB (*BKC) 1 TABLET PO (09:14)
[2023-07-08] MEDS: PANTOPRAZOLE 40 MG TABLET PO (09:15)
[2023-07-08] MEDS: rOPINIRole HCL 1 MG TABLET BY MOUTH ×3 (09:15→16:23)
[2023-07-08] MEDS: POTASSIUM CHLORIDE 20 MEQ ER TABLET PO ×2 (09:15→16:24)
[2023-07-08] MEDS: DOCUSATE SODIUM 100 MG CAPSULE PO ×2 (09:15→16:23)
[2023-07-08] MEDS: ASPIRIN 81 MG ENTERIC TABLET PO (09:15)
[2023-07-08] MEDS: levETIRAcetam 250 MG TABLET PO ×2 (09:16→21:04)
[2023-07-08] MEDS: NYSTATIN 100,000 UNITS/ML SUSP 5 ML ORAL.SUSP 4 ML PO ×4 (09:16→21:04)
[2023-07-08] MEDS: ESCITALOPRAM OXALATE 10 MG TABLET PO (09:17)
[2023-07-08] MEDS: ENOXAPARIN 40 MG/0.4 ML SYRINGE SUB-Q (09:17)
[2023-07-08] MEDS: UMECLIDINIUM/VILANTEROL 62.5-25 MCG ELLIPTA 1 PUFF INHALATION (10:00)
[2023-07-08 16:00] VITALS: BP 124/88; PULSE 69; RESP 16; TEMP 36.7; O2SAT 94
[2023-07-08] MEDS: OLOPATADINE 0.1% OPHTH SOLN 5 ML BTL 1 DROP RIGHT EYE (16:20)
[2023-07-08] MEDS: ACETAMINOPHEN 325 MG TABLET 650 MG PO (21:04)
[2023-07-08] MEDS: FLUTICASONE PROPIONATE 0.05% NA SPR 16 GM BTL (*BKC) 1 SPRAY NASAL (21:04)
[2023-07-08] MEDS: ATORVASTATIN 40 MG TABLET PO (21:04)
[2023-07-08] MEDS: MELATONIN 5 MG TABLET PO (21:04)
[2023-07-08 23:21] VITALS: BP 119/69; PULSE 78; RESP 19; TEMP 36.6; O2SAT 96
[2023-07-09 05:27] VITALS: O2SAT 96
[2023-07-09] MEDS: SALMET XINAFT/FLUTIC PROPIN 250 MCG/50 MCG INH CAP 1 PUFF INHALATION ×2 (06:32→17:51)
[2023-07-09 08:00] VITALS: BP 103/52; PULSE 78; PULSE 80; RESP 14; RESP 16; TEMP 36.7; O2SAT 98
[2023-07-09] MEDS: POTASSIUM CHLORIDE 20 MEQ ER TABLET PO ×2 (09:15→16:48)
[2023-07-09] MEDS: NYSTATIN 100,000 UNITS/ML SUSP 5 ML ORAL.SUSP 4 ML PO ×4 (09:15→20:38)
[2023-07-09] MEDS: FERROUS SULFATE 325 MG TABLET DR PO ×2 (09:16→16:49)
[2023-07-09] MEDS: rOPINIRole HCL 1 MG TABLET BY MOUTH ×3 (09:16→16:50)
[2023-07-09] MEDS: FUROSEMIDE 40 MG TABLET PO ×2 (09:16→16:49)
[2023-07-09] MEDS: GABAPENTIN 300 MG CAPSULE PO ×3 (09:16→16:49)
[2023-07-09] MEDS: BENZONATATE 100 MG CAPSULE 200 MG PO ×3 (09:16→16:49)
[2023-07-09] MEDS: PANTOPRAZOLE 40 MG TABLET PO (09:16)
[2023-07-09] MEDS: DOCUSATE SODIUM 100 MG CAPSULE PO ×2 (09:17→16:49)
[2023-07-09] MEDS: levETIRAcetam 250 MG TABLET PO ×2 (09:17→20:38)
[2023-07-09] MEDS: ESCITALOPRAM OXALATE 10 MG TABLET PO (09:17)
[2023-07-09] MEDS: ASPIRIN 81 MG ENTERIC TABLET PO (09:18)
[2023-07-09] MEDS: UMECLIDINIUM/VILANTEROL 62.5-25 MCG ELLIPTA 1 PUFF INHALATION (09:22)
[2023-07-09] MEDS: OLOPATADINE 0.1% OPHTH SOLN 5 ML BTL 1 DROP RIGHT EYE (09:23)
[2023-07-09] MEDS: MULTIVITAMINS THERAPEUTIC TAB (*BKC) 1 TABLET PO (09:24)
[2023-07-09] MEDS: ENOXAPARIN 40 MG/0.4 ML SYRINGE SUB-Q (09:24)
[2023-07-09 15:58] VITALS: BP 130/66; PULSE 85; RESP 20; TEMP 36.2; O2SAT 92
[2023-07-09] MEDS: FLUTICASONE PROPIONATE 0.05% NA SPR 16 GM BTL (*BKC) 1 SPRAY NASAL (20:38)
[2023-07-09] MEDS: MELATONIN 5 MG TABLET PO (20:38)
[2023-07-09] MEDS: ATORVASTATIN 40 MG TABLET PO (20:38)
[2023-07-09] MEDS: ACETAMINOPHEN 325 MG TABLET 650 MG PO (20:38)
[2023-07-09] MEDS: TOBRAMYCIN SULFATE 0.3% OPHTH SOLN 5 ML 1 DROP EACH EYE (20:39)
[2023-07-09 23:58] VITALS: BP 121/67; PULSE 72; RESP 17; TEMP 36.8; O2SAT 96
[2023-07-10] MEDS: TOBRAMYCIN SULFATE 0.3% OPHTH SOLN 5 ML 1 DROP EACH EYE ×3 (05:00→12:43)
[2023-07-10] MEDS: SALMET XINAFT/FLUTIC PROPIN 250 MCG/50 MCG INH CAP 1 PUFF INHALATION (05:31)
--- NOTE | 2023-07-10 07:28 | PM.DS ---
DS: Admitting Diagnosis Discharge Date 07/10/2023 Admitting Diagnosis COPD and CHF, DS: Discharge Diagnosis Discharge Diagnosis (1) Respiratory failure with hypoxia and hypercapnia: Code(s): J96.91 - Respiratory failure, unspecified with hypoxia; J96.92 - Respiratory failure, unspecified with hypercapnia Status: Acute Assessment and Plan: Severe COPD Recent admission at [facility] for COPD exacerbation with superimposed bacteria pneumonia Followed by pulmonology during her stay Received Levaquin, bronchodilations, and solu-medrol Increased oxygen requirements. She was on 2 L NC at baseline prior to this admission, now requiring 4 L at rest and 5 L with activity. Her IV steroids were d/c'd and she was started on prednisone 40 mg PO for 4 days. (07/05-07/08) Continue with Advair inhaler, Incruse Ellipta, Albuterol, Tessalon caity, and Mucinex When she naps or sleeps noninvasive ventilator with the AVAPS AE mode through [employer]: AVAPS-AE mode with a rate of 12, tidal volume 400, EPAP minimum 5, maximum EPAP 10, minimal pressure support 10, maximal pressure support 15, rise time of 3 with 4 L bleed. She has her home BiPAP machine here. (2) Community acquired pneumonia: Code(s): J18.9 - Pneumonia, unspecified organism Status: Acute Assessment and Plan: Completed Levaquin at [facility] (3) Hypertension: Code(s): I10 - Essential (primary) hypertension Status: Acute Assessment and Plan: Stable on home agents. Blood pressures reviewed 120-130/70, HR 60-70 (4) Anemia, unspecified: Code(s): D64.9 - Anemia, unspecified Status: Acute Assessment and Plan: Follows with Dr Farfan. Fe Deficiency. Continue ferrous sulfate 325 mg PO BID (5) Diastolic congestive heart failure: Qualifiers: Heart failure chronicity: acute on chronic Qualified Code(s): I50.33 - Acute on chronic diastolic (congestive) heart failure Code(s): I50.30 - Unspecified diastolic (congestive) heart failure Status: Acute Assessment and Plan: Follows with Dr Meyers. Lasix 40 mg daily, ASA 81 mg ECHO from 05/2023 Summary ? 1. Complete two-dimensional, color flow and Doppler transthoracic echocardiogram is performed. ? 2. Left ventricular chamber dimension is normal. ? 3. Left ventricular systolic function is normal, estimated at 55-60%. ? 4. There is mildly increased left ventricular wall thickness. ? 5. The left ventricular diastolic function is grade I diastolic dysfunction. ? 6. E/e' 13 is mildly elevated. ? 7. The mitral valve has moderately calcified annulus. ? 8. Dilated inferior vena cava with >50% collapse upon inspiration consistent with elevated right atrial pressure, 10 mmHg. (6) Seizure disorder: Code(s): G40.909 - Epilepsy, unspecified, not intractable, without status epilepticus Status: Chronic Assessment and Plan: Simple seizure disorder Takes keppra daily Last seizure was when she was hospitalized in 2013 for her lung cancer (7) Chronic kidney disease, stage 3: Code(s): N18.30 - Chronic kidney disease, stage 3 unspecified Status: Acute Assessment and Plan: Cr seems to range anywhere from 1.1-1.5 nephrectomy as a child due to underdeveloped kidney avoid nephrotoxic agents (8) Dyslipidemia: Code(s): E78.5 - Hyperlipidemia, unspecified Status: Acute Assessment and Plan: Stable on Atorvastatin (9) Chronic anticoagulation: Code(s): Z79.01 - joint terminal attack controller (current) use of anticoagulants Status: Acute Assessment and Plan: Hx of PE and Stroke Takes Jessica DS: Summary Hospital Course Reason for hospitalization: COPD Exacerbation , Right eye infection Hospital Course: This is a 73 year old ill looking female who lives in assistive living. Patient has conjunctivitis with erythema to the right eye. Patient is on onxygen which is chronic she currently h
[2023-07-10 08:00] VITALS: BP 125/70; PULSE 72; RESP 14; TEMP 36.6; O2SAT 96; O2SAT 97
[2023-07-10] MEDS: ENOXAPARIN 40 MG/0.4 ML SYRINGE SUB-Q (08:48)
[2023-07-10] MEDS: rOPINIRole HCL 1 MG TABLET BY MOUTH ×2 (08:48→12:44)
[2023-07-10] MEDS: GABAPENTIN 300 MG CAPSULE PO ×2 (08:48→12:43)
[2023-07-10] MEDS: POTASSIUM CHLORIDE 20 MEQ ER TABLET PO (08:49)
[2023-07-10] MEDS: NYSTATIN 100,000 UNITS/ML SUSP 5 ML ORAL.SUSP 4 ML PO ×2 (08:49→12:43)
[2023-07-10] MEDS: PANTOPRAZOLE 40 MG TABLET PO (08:50)
[2023-07-10] MEDS: BENZONATATE 100 MG CAPSULE 200 MG PO ×2 (08:50→12:44)
[2023-07-10] MEDS: levETIRAcetam 250 MG TABLET PO (08:50)
[2023-07-10] MEDS: FUROSEMIDE 40 MG TABLET PO (08:50)
[2023-07-10] MEDS: ASPIRIN 81 MG ENTERIC TABLET PO (08:50)
[2023-07-10] MEDS: MULTIVITAMINS THERAPEUTIC TAB (*BKC) 1 TABLET PO (08:50)
[2023-07-10] MEDS: FERROUS SULFATE 325 MG TABLET DR PO (08:51)
[2023-07-10] MEDS: DOCUSATE SODIUM 100 MG CAPSULE PO (08:51)
[2023-07-10] MEDS: ESCITALOPRAM OXALATE 10 MG TABLET PO (08:51)
[2023-07-10] MEDS: UMECLIDINIUM/VILANTEROL 62.5-25 MCG ELLIPTA 1 PUFF INHALATION (08:52)
--- NOTE | 2023-07-10 14:10 | PC.NURSE ---
Pt discharged back to her home at the [facility]. [facility] personal picked pt up . RN took pt down stairs via WC and helped her into the car. Pt was given medication instructions and instructed to call her PCP for a post hospital follow up.
--- NOTE | 2023-07-13 09:14 | PC.NURSE ---
discharge call back, to jonathan, no questions on dc instructions today
== END 2023-07-10 13:30 | DRG 947 ==
PROVIDERS: Nurse Practitioner Acute Care; Admitting Provider Internal Medicine; PCP Internal Medicine; Visit Provider Nurse Practitioner Family
DX: R53.1 Weakness (principal); J18.9 Pneumonia, unspecified organism; I13.0 Hypertensive heart and chronic kidney disease with heart failure and stage 1 through stage 4 chronic kidney disease, or unspecified chronic kidney disease; I50.32 Chronic diastolic (congestive) heart failure; J96.11 Chronic respiratory failure with hypoxia; I69.351 Hemiplegia and hemiparesis following cerebral infarction affecting right dominant side; N18.30 Chronic kidney disease, stage 3 unspecified; J44.9 Chronic obstructive pulmonary disease, unspecified; E78.5 Hyperlipidemia, unspecified; D64.9 Anemia, unspecified; G40.909 Epilepsy, unspecified, not intractable, without status epilepticus; F32.A Depression, unspecified; F41.9 Anxiety disorder, unspecified; Z79.82 Long term (current) use of aspirin; Z99.81 Dependence on supplemental oxygen; Z86.711 Personal history of pulmonary embolism; Z85.038 Personal history of other malignant neoplasm of large intestine; Z95.5 Presence of coronary angioplasty implant and graft; Z87.891 Personal history of nicotine dependence; Z99.3 Dependence on wheelchair
CPT/HCPCS: 36415; 80053; 85025; 97110; 97161; 97165; 97530; 97535; A9270; J1650; J7512

== ENCOUNTER 2023-07-16 16:09 | Outpatient (CLI) | payer MEDICARE, SELFPAY ==
[2023-07-16 16:26] LABS: Basophils Absolute Auto 0.02 K/mm3 (0.00-0.10); Basophils Percent Auto 0.2 % (0.0-1.0); Eosinophils Absolute Auto 0.31 K/mm3 (0.02-0.50); Eosinophils Percent Auto 2.8 % (1.0-6.0); Hematocrit 40.3 % (35.0-42.0); Hemoglobin 12.5 g/dL (11.7-13.8); Immature Granulocyte Absolute 0.05 K/mm3 (0.00-0.00); Immature Granulocyte Percent A 0.5 % (0.0-0.0); Lymphocytes Absolute Auto 0.96 K/mm3 (1.10-4.50); Lymphocytes Percent Auto 8.8 % (18.0-42.0); Mean Corpuscular Hemoglobin 27.3 pg (27.0-31.0); Mean Platelet Volume 9.9 fl (9.2-11.8); Monocytes Absolute Auto 1.14 K/mm3 (0.10-0.90); Monocytes Percent Auto 10.4 % (2.0-11.0); Neutrophils Absolute Auto 8.5 K/mm3 (1.7-7.2); Neutrophils Percent Auto 77.3 % (50.0-70.0); Platelet Count Result 309 K/mm3 (150-420); Red Blood Count 4.58 M/mm3 (4.20-5.40); Red Cell Distribution Width 15.2 % (11.6-14.4); White Blood Count 10.9 K/mm3 (4.8-10.8)
[2023-07-16 17:02] LABS: Alanine Aminotransferase 28 U/L (14-59); Albumin Level 2.7 g/dL (3.4-5.0); Alkaline Phosphatase 83 U/L (46-116); Anion Gap 3 mmol/L (8-16); Aspartate Amino Transferase 15 U/L (15-37); Bilirubin,Total 0.6 mg/dL (0.00-1.00); Blood Urea Nitrogen 15 mg/dL (7-18); Calcium 9.5 mg/dL (8.5-10.1); Carbon Dioxide 40 mmol/L (21-32); Chloride 100 mmol/L (98-108); Estimated Glomerular Filt Rate 49; Glucose 109 mg/dL (70-99); NT Pro B Type Natriuretic Pept 600 pg/mL (0-125); Osmolality Calculated 297 mOsm/kg (285-295); Potassium 3.4 mmol/L (3.5-5.1); Sodium 143 mmol/L (136-145); Total Protein 6.1 g/dL (6.4-8.2)
== END 2023-07-16 16:10 | disposition home or self-care (01) ==
LOC: CHSLAB 16:11
PROVIDERS: PCP Internal Medicine; Visit Provider Nurse Practitioner Family
DX: R53.83 Other fatigue (principal); J44.9 Chronic obstructive pulmonary disease, unspecified; I50.22 Chronic systolic (congestive) heart failure
CPT/HCPCS: 36415; 80053; 83880; 85025

== ENCOUNTER 2023-07-17 13:36 | Outpatient (NON) | payer MEDICARE, SELFPAY ==
[2023-07-17 14:14] LABS: Appearance Urine Clear (Clear); Bilirubin Urine Negative (Negative); Blood Urine Negative (Negative); Color Urine Light Yellow (Yellow); Glucose Urine UA Negative (Negative); Ketones Urine Negative (Negative); Leukocyte Esterase Ur Negative (Negative); Nitrate Urine Negative (Negative); Protein Urine Negative (Negative); Urobilinogen Urine 0.2 mg/dL (0.2-1.0)
[2023-07-17 14:30] LABS: Add Urine Microscopic? NO
== END 2023-07-17 13:37 | disposition home or self-care (01) ==
LOC: CHSLAB 13:40
PROVIDERS: PCP Internal Medicine; Visit Provider Nurse Practitioner Family
DX: N39.0 Urinary tract infection, site not specified (principal)
CPT/HCPCS: 81003; 87086

== ENCOUNTER 2023-07-22 09:35 | Emergency (ER) | payer MEDICARE, MEDICAID, SELFPAY ==
--- NOTE | ~2023-07-22 | US_ITS ---
EXAMINATION: US venous doppler [facility] DATE: 07/22/2023 12:03 INDICATION: Lower limb pain, swelling and erythema TECHNIQUE: Grayscale ultrasound images without and with compression and Doppler ultrasound images of the bilateral lower extremity veins were obtained. COMPARISON: 06/29/2023 FINDINGS: The visualized portions of right common femoral vein, profunda (deep) femoral vein, femoral vein, pop liteal vein, posterior tibial veins, peroneal veins, gastrocnemius vein and greater saphenous vein ou tflow remain patent. The visualized portions of left common femoral vein, profunda femoral vein, femoral vein, popliteal v ein, posterior tibial veins, peroneal veins, gastrocnemius vein and greater saphenous vein outflow re main patent. IMPRESSION: 1. No deep venous thrombosis in either lower limb. Reviewed, dictated and finalized at location A. ALION CHIEF
--- NOTE | ~2023-07-22 | XR_ITS ---
EXAMINATION: XR chest 2V DATE: 07/22/2023 10:39 INDICATION: Shortness of breath TECHNIQUE: AP and lateral views of the chest are obtained. COMPARISON: 06/29/2023 FINDINGS: Emphysema is again noted. There is mild atelectasis of the lung bases. No pleural effusion or pneumothorax. The cardiomediastinal silhouette is normal. There is moderate thoracic spondylosis. A T6 compression fracture is again noted. IMPRESSION: 1. Mild atelectasis of the lung bases. Reviewed, dictated and finalized at location B. CHEMIST
[2023-07-22 09:36] VITALS: BP 142/74; PULSE 87; RESP 20; TEMP 36.9; O2SAT 100
--- NOTE | 2023-07-22 09:41 | ECG_ITS ---
Measurements Intervals [place] Rate: 85 P: 55 RI: 175 QRS: 16 QRSD: 91 T: 53 QT: 361 QTc: 432 Interpretive Statements SINUS RHYTHM WITH SINUS ARRHYTHMIA BASELINE ARTIFACT- I, II, III, AVR NORMAL ECG COMPARED TO ECG 06/30/2023 21:18:31 SINUS RHYTHM NOW PRESENT SINUS ARRHYTHMIA NOW PRESENT Electronically Signed On 07-22-2023 10:09:45 [employer]ORCYCLE [employer] by Oli Meyers D.O.
[2023-07-22] MEDS: ALBUTEROL SULFATE NEB 2.5 MG/3 ML INH INHALATION (10:04)
[2023-07-22] MEDS: IPRATROPIUM BR 0.02% INH SOLN 0.5 MG/2.5 ML VIAL INHALATION (10:04)
[2023-07-22 10:05] VITALS: PULSE 94; RESP 17
[2023-07-22 10:14] VITALS: PULSE 95; RESP 27
[2023-07-22 10:16] LABS: Basophils Percent Auto 0.3 % (0.2-1.2); Eosinophils Absolute Auto 0.5 K/mm3 (0-0.3); Eosinophils Percent Auto 5.1 % (0-4.4); Hematocrit 38.7 % (37.0-47.0); Hemoglobin 11.6 g/dL (12.0-15.0); Immature Granulocyte Absolute 0.03 K/mm3 (0.00-0.031); Immature Granulocyte Percent A 0.3 % (0-0.5); Lymphocytes Absolute Auto 0.93 K/mm3 (0.9-3.2); Lymphocytes Percent Auto 9.4 % (18.3-44.2); Mean Corpuscular Hemoglobin 26.8 pg (26-34); Mean Corpuscular Volume 89.4 fl (80-100); Mean Platelet Volume 9.6 fl (7.4-10.4); Monocytes Absolute Auto 0.8 K/mm3 (0.1-0.6); Monocytes Percent Auto 7.7 % (2.6-8.5); Neutrophils Absolute Auto 7.6 K/mm3 (1.3-6.7); Neutrophils Percent Auto 77.2 % (45.5-73.1); Platelet Count Result 299 k/mm3 (150-375); Red Blood Count 4.33 M/mm3 (4.2-5.4); Red Cell Distribution Width 15.7 % (11.5-14.5); White Blood Count 9.9 K/mm3 (4.5-10.0)
[2023-07-22 10:28] LABS: Prothrombin Time 13.5 Seconds (11.1-14.7)
[2023-07-22 10:29] LABS: Partial Thromboplastin Time 31.8 SECONDS (22.3-36.8)
[2023-07-22 10:32] LABS: Alanine Aminotransferase 22 U/L (6-35); Albumin Level 3.6 g/dL (3.5-5.1); Alkaline Phosphatase 84 U/L (38-126); Aspartate Amino Transferase 26 U/L (14-36); Bilirubin,Total 0.8 mg/dL (0.2-1.3); Blood Urea Nitrogen 8 mg/dL (7-17); Calcium 9.5 mg/dL (8.4-10.2); Carbon Dioxide > 40 mmol/L (22-30); Chloride 97 mmol/L (98-107); Estimated Glomerular Filt Rate 55; Glucose 103 mg/dL (65-110); Potassium 3.7 mmol/L (3.4-5.0); Sodium 138 mmol/L (137-145)
[2023-07-22 10:38] LABS: NT Pro B Type Natriuretic Pept 765 pg/mL (19.9-100)
--- NOTE | 2023-07-22 10:57 | PCRCNOTE ---
Addendum entered by Irais Ling, SLD EDUCATIONAL AIDE 07/22/23 11:12: Spoke with ultrasound, stated they will notify respiratory when patient returns to room. Original Note: Attempted to obtain ABG, patient in imaging.
[2023-07-22 12:12] LABS: Alveolar/Arterial O2 Gradient 130.7 mmHg; Carboxyhemoglobin 0.2 % THb (0-2.0); Device NASAL CANNULA; Fractional Inspired Oxygen 36 %; Methemoglobin ABG 0.3 %THb (0-1.5); Modified Allen's Test Pass; Oxygen Content ABG 16.5 %vol (16.0-22.0); Oxygen Saturation ABG 92.9 % (95.0-100.0); Oxyhemoglobin 91.8 % THb (90.0-100.0); PCO2 ABG 50.9 mmHg (35.0-45.0); PO2 ABG 66.9 mmHg (80.0-100.0); PO2 FiO2 Ratio Arterial Blood 1.86 %; Reduced Hemoglobin 7.7 %THb (0-5.0); Site Drawn LEFT RADIAL; Total Hemoglobin 12.8 g/dL (12.0-18.0); pH ABG 7.388 (7.350-7.450)
--- NOTE | 2023-07-22 13:34 | ED.GENADULT ---
HPI - General Adult General Chief complaint: Extremity Injury, Lower Stated complaint: possible blood clot going knee to ankle Time Seen by Provider: 07/22/23 09:45 History of Present Illness HPI narrative: Patient is a 73-year-old female who presents ER for evaluation of her left lower extremity. Patient was sent by her assisted living for evaluation of possible DVT. Patient had recent hospitalization for COPD. Patient reports she is having increased edema in her legs but more so on the left side. She has developed some redness and has had some weeping blisters. No fevers or chills or sweats. No chest pain or chest pressure. Patient has chronic dyspnea and is dependent on 4 L of oxygen at all times. She has mild wheezing at this time. Related Data Home Medications Medication Instructions Recorded Confirmed acetaminophen 500 mg capsule 500 mg PO Q6H PRN Pain (Scale 11/24/19 07/04/23 Score 1-3) aspirin 81 mg tablet,delayed 81 mg PO DAILY 11/24/19 07/04/23 release (Adult Aspirin Regimen) atorvastatin 40 mg tablet 40 mg PO HS 11/24/19 07/04/23 escitalopram oxalate 20 mg tablet 10 mg PO DAILY 11/24/19 07/04/23 levetiracetam 250 mg tablet 250 mg PO Q12H 11/24/19 07/04/23 (Keppra) melatonin 5 mg capsule 5 mg PO HS 11/24/19 07/04/23 potassium chloride 20 mEq 20 meq PO BID 11/24/19 07/04/23 tablet,extended release multivitamin with folic acid 400 1 tablet PO DAILY 03/10/22 07/04/23 mcg tablet (Daily-Annie (with folic acid)) gabapentin 300 mg capsule 300 mg PO TID 04/14/22 07/04/23 ropinirole 1 mg tablet 1 mg TID 06/06/22 07/04/23 ferrous sulfate 325 mg (65 mg 325 mg PO BID 08/22/22 07/04/23 iron) tablet albuterol sulfate 90 mcg/actuation 2 puff inhalation Q6H PRN 06/29/23 07/04/23 aerosol inhaler shortness of breath or wheezing alprazolam 0.5 mg tablet 0.5 mg PO Q8-12H PRN Anxiety 06/29/23 07/04/23 ergocalciferol (vitamin D2) 1,250 50,000 unit PO WEEKLY 06/29/23 07/04/23 mcg (50,000 unit) capsule fluticasone propionate 50 1 spray intranasal HS 06/29/23 07/04/23 mcg/actuation nasal spray,suspension nystatin 100,000 unit/mL oral 4 ml PO QID 06/29/23 07/04/23 suspension Allergies Allergy/AdvReac Type Severity Reaction Status Date / Time latex Allergy Unknown Unknown Verified 06/29/23 16:25 lorazepam Allergy Unknown Unknown Verified 06/29/23 11:28 adhesive tape AdvReac Rash Verified 06/29/23 16:25 nickel AdvReac Rash Verified 06/29/23 16:25 Review of Systems Review of Systems: All systems reviewed & are unremarkable except as noted in HPI and below Constitutional: Constitutional: Denies chills, Denies fatigue and Denies fever(s) ENT: Denies nasal congestion and Denies sore throat Cardiovascular: Cardiovascular: Reports no additional cardiovascular complaints Respiratory: Respiratory: Reports cough, Reports dyspnea and Reports wheezing Gastrointestinal: Gastrointestinal: Reports no additional gastrointestinal complaints Integumentary/Breasts: Skin/Breast: Reports erythema and Denies rash Comments: Clusters PMFSH Past Medical History Medical History 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 Chronic kidney disease, stage 3 Chronic obstructive pulmonary disease Chronic respiratory failure with hypoxia, on home oxygen therapy Depression with anxiety Diastolic congestive heart failure Diastolic dysfunction Dyslipidemia Hypertension Occult blood in stools Pulmonary embolism (11/2021) Seizure disorder Small cell lung cancer Status post chemoradiotherapy. Surgical History Surgical History History of abdominal aortic aneurysm repair History of cardiac catheterization History of heart artery stent History of incisional hernia repair History of inguinal hernia repair History of left nephrectomy At age 3, do
== END 2023-07-22 15:23 ==
PROVIDERS: Emergency Provider Emergency Medicine; PCP Internal Medicine
DX: I69.951 Hemiplegia and hemiparesis following unspecified cerebrovascular disease affecting right dominant side (principal); I13.0 Hypertensive heart and chronic kidney disease with heart failure and stage 1 through stage 4 chronic kidney disease, or unspecified chronic kidney disease; N18.30 Chronic kidney disease, stage 3 unspecified; I50.30 Unspecified diastolic (congestive) heart failure; J96.11 Chronic respiratory failure with hypoxia; J44.9 Chronic obstructive pulmonary disease, unspecified; Z99.81 Dependence on supplemental oxygen; G40.909 Epilepsy, unspecified, not intractable, without status epilepticus; F41.8 Other specified anxiety disorders; Z95.5 Presence of coronary angioplasty implant and graft; Z86.711 Personal history of pulmonary embolism; Z85.118 Personal history of other malignant neoplasm of bronchus and lung; Z92.21 Personal history of antineoplastic chemotherapy; Z92.3 Personal history of irradiation; Z87.891 Personal history of nicotine dependence; Z90.5 Acquired absence of kidney; Z79.82 Long term (current) use of aspirin
CPT/HCPCS: 36415; 36600; 71046; 80053; 82375; 82805; 83050; 83880; 85025; 85610; 85730; 93005; 93970; 94640; 99284

== ENCOUNTER 2023-11-05 12:29 | Outpatient (NON) | payer MEDICARE, SELFPAY ==
[2023-11-05 13:10] LABS: Basophils Absolute Auto 0.04 K/mm3 (0.00-0.10); Basophils Percent Auto 0.5 % (0.0-1.0); Eosinophils Absolute Auto 0.22 K/mm3 (0.02-0.50); Eosinophils Percent Auto 2.9 % (1.0-6.0); Hematocrit 41.3 % (35.0-42.0); Hemoglobin 12.9 g/dL (11.7-13.8); Immature Granulocyte Absolute 0.04 K/mm3 (0.00-0.00); Immature Granulocyte Percent A 0.5 % (0.0-0.0); Lymphocytes Percent Auto 18.7 % (18.0-42.0); Mean Corpuscular HGB Conc 31.2 g/dL (32.0-36.0); Mean Corpuscular Volume 89.6 fL (78.0-102.0); Mean Platelet Volume 10.6 fl (9.2-11.8); Monocytes Absolute Auto 0.72 K/mm3 (0.10-0.90); Monocytes Percent Auto 9.6 % (2.0-11.0); Neutrophils Absolute Auto 5.1 K/mm3 (1.7-7.2); Neutrophils Percent Auto 67.8 % (50.0-70.0); Platelet Count Result 309 K/mm3 (150-420); Red Blood Count 4.61 M/mm3 (4.20-5.40); Red Cell Distribution Width 14.2 % (11.6-14.4); White Blood Count 7.5 K/mm3 (4.8-10.8)
[2023-11-05 13:11] LABS: Appearance Urine Clear (Clear); Bilirubin Urine Negative (Negative); Blood Urine Negative (Negative); Color Urine Light Yellow (Yellow); Glucose Urine UA Negative (Negative); Ketones Urine Negative (Negative); Leukocyte Esterase Ur 1+ LEU/UL (Negative); Nitrate Urine Negative (Negative); Protein Urine Negative (Negative); Specific Grav Ur 1.025 (1.010-1.020); Urobilinogen Urine 0.2 mg/dL (0.2-1.0)
[2023-11-05 13:20] LABS: Add Urine Microscopic? YES; Bacteria Urine 1+ /hpf; RBC Urine None seen /hpf (0-2); Squamous Epithelial Cell Urine Moderate /hpf (Few)
[2023-11-05 14:06] LABS: Alanine Aminotransferase 31 U/L (14-59); Albumin Level 2.9 g/dL (3.4-5.0); Alkaline Phosphatase 62 U/L (46-116); Anion Gap 9 mmol/L (8-16); Aspartate Amino Transferase 19 U/L (15-37); Bilirubin,Total 0.5 mg/dL (0.00-1.00); Blood Urea Nitrogen 17 mg/dL (7-18); Calcium 8.6 mg/dL (8.5-10.1); Carbon Dioxide 34 mmol/L (21-32); Chloride 103 mmol/L (98-108); Cholesterol 159 mg/dL (0-200); Creatine Kinase 109 U/L (26-192); Estimated Glomerular Filt Rate 40; Ferritin 29 ng/mL (8-252); Free T3 2.63 pg/mL (2.18-3.98); Free T4 Free Thyroxine 1.05 ng/dL (0.76-1.46); Glucose 76 mg/dL (70-99); HDL Direct 56 mg/dL (40-60); Iron 29 ug/dL (50-170); LDL Cholesterol Calculated 88 mg/dL (<130); NT Pro B Type Natriuretic Pept 699 pg/mL (0-125); Osmolality Calculated 302 mOsm/kg (285-295); Potassium 3.6 mmol/L (3.5-5.1); Sodium 146 mmol/L (136-145); Thyroid Stimulating Hormone 1.56 uIU/mL (0.36-3.74); Total Protein 5.8 g/dL (6.4-8.2); Triglycerides 75 mg/dL (0-150); Vitamin B12 807 pg/mL (193-986)
== END 2023-11-05 12:30 | disposition home or self-care (01) ==
LOC: CHSLAB 12:31
PROVIDERS: Visit Provider Internal Medicine
DX: E78.2 Mixed hyperlipidemia (principal); D64.9 Anemia, unspecified; N39.0 Urinary tract infection, site not specified; I50.9 Heart failure, unspecified; R53.83 Other fatigue
CPT/HCPCS: 80053; 80061; 81001; 82550; 82607; 82728; 83540; 83880; 84439; 84443; 84481; 85025; 87086; 87088

== ENCOUNTER 2023-11-06 12:19 | Outpatient (CLI) | payer MEDICARE, SELFPAY ==
--- NOTE | ~2023-11-06 | XR_ITS ---
Clinical Indication: Shortness of breath PA and lateral views of the chest: Comparison: 07/22/2023 Findings: The lungs are clear, without evidence of focal consolidation or pleural effusion. Suspected COPD. Cardiomediastinal silhouette is within normal limits. Bones and soft tissues are unremarkable. Impression: Clear lungs. Suspected COPD. Reviewed, dictated and finalized at location . D WASTE DIVISION SUPERVISOR Impression: Clear lungs. Suspected COPD.
--- NOTE | ~2023-11-06 | US_ITS ---
US arterial ankle brachial ind INDICATION: Hypertension. Hyperlipidemia. Stroke. TECHNIQUE: Segmental pressures and plethysmographic and Doppler waveforms of the brachial and lower e xtremity arteries were obtained. COMPARISON: None. FINDINGS: Right and left brachial artery pressures of 136 mm Hg and 140 mm Hg, respectively, are concordant (no rmal difference <= 30 mmHg). The right ankle-brachial index (YENNY) is 1.06 (normal >= 0.9-1.0). The right great toe-brachial index (TBI) is 0.76 (normal >= 0.60). The left YENNY is 0.94. The left TBI is 0.65. IMPRESSION: 1. Normal ankle-brachial indices. Reviewed, dictated and finalized at location A. UTER TECHNICAL SUPPORT SPECIALIST
== END 2023-11-06 12:20 | disposition home or self-care (01) ==
LOC: CHSIMG 12:20
PROVIDERS: PCP Internal Medicine; Visit Provider Internal Medicine
DX: I73.9 Peripheral vascular disease, unspecified (principal); R06.02 Shortness of breath
CPT/HCPCS: 71046; 93922

== ENCOUNTER 2023-12-10 11:49 | Outpatient (NON) | payer MEDICARE, SELFPAY ==
[2023-12-10 13:01] LABS: Basophils Absolute Auto 0.02 K/mm3 (0.00-0.10); Basophils Percent Auto 0.3 % (0.0-1.0); Eosinophils Absolute Auto 0.23 K/mm3 (0.02-0.50); Eosinophils Percent Auto 3.2 % (1.0-6.0); Hematocrit 42.1 % (35.0-42.0); Hemoglobin 13.2 g/dL (11.7-13.8); Immature Granulocyte Absolute 0.03 K/mm3 (0.00-0.00); Immature Granulocyte Percent A 0.4 % (0.0-0.0); Mean Corpuscular HGB Conc 31.4 g/dL (32-36); Mean Corpuscular Hemoglobin 27.8 pg (27.0-31.0); Mean Corpuscular Volume 88.6 fL (78.0-102.0); Mean Platelet Volume 11.2 fl (9.2-11.8); Monocytes Absolute Auto 0.71 K/mm3 (0.10-0.90); Monocytes Percent Auto 9.9 % (2.0-11.0); Neutrophils Absolute Auto 4.41 K/mm3 (1.70-7.20); Neutrophils Percent Auto 61.2 % (50.0-70.0); Platelet Count Result 330 K/mm3 (150-420); Red Blood Count 4.75 M/mm3 (4.20-5.40); Red Cell Distribution Width 14.2 % (11.6-14.4); White Blood Count 7.2 K/mm3 (4.8-10.8)
[2023-12-10 17:55] LABS: Ferritin 47 ng/mL (8-252); Iron 49 ug/dL (50-170)
== END 2023-12-10 11:50 | disposition home or self-care (01) ==
LOC: CHSLAB 11:50
PROVIDERS: Visit Provider Internal Medicine
DX: D50.9 Iron deficiency anemia, unspecified (principal)
CPT/HCPCS: 36415; 82728; 83540; 85025

== ENCOUNTER 2024-03-02 14:06 | Outpatient (NON) | payer MEDICARE, SELFPAY ==
[2024-03-02 14:24] LABS: Basophils Absolute Auto 0.02 K/mm3 (0.00-0.10); Basophils Percent Auto 0.3 % (0.0-1.0); Eosinophils Absolute Auto 0.23 K/mm3 (0.02-0.50); Hematocrit 43.6 % (35.0-42.0); Hemoglobin 13.6 g/dL (11.7-13.8); Immature Granulocyte Absolute 0.03 K/mm3 (0.00-0.00); Immature Granulocyte Percent A 0.4 % (0.0-0.0); Lymphocytes Absolute Auto 1.19 K/mm3 (1.10-4.50); Lymphocytes Percent Auto 15.6 % (18.0-42.0); Mean Corpuscular HGB Conc 31.2 g/dL (32-36); Mean Corpuscular Hemoglobin 28.1 pg (27.0-31.0); Mean Corpuscular Volume 90.1 fL (78.0-102.0); Mean Platelet Volume 10.1 fl (9.2-11.8); Monocytes Absolute Auto 0.52 K/mm3 (0.10-0.90); Monocytes Percent Auto 6.8 % (2.0-11.0); Neutrophils Absolute Auto 5.66 K/mm3 (1.70-7.20); Neutrophils Percent Auto 73.9 % (50.0-70.0); Platelet Count Result 328 K/mm3 (150-420); Red Blood Count 4.84 M/mm3 (4.20-5.40); White Blood Count 7.7 K/mm3 (4.8-10.8)
[2024-03-02 15:37] LABS: Anion Gap 7 mmol/L (4-12); Calcium 9.3 mg/dL (8.5-10.1); Carbon Dioxide 34 mmol/L (21-32); Chloride 101 mmol/L (98-108); Estimated Glomerular Filt Rate 52; Ferritin 36 ng/mL (8-252); Glucose 100 mg/dL (70-99); Iron 63 ug/dL (50-170); Percent Iron Saturation 23 % (12-57); Potassium 3.6 mmol/L (3.5-5.1); Sodium 142 mmol/L (136-145); Vitamin B12 1100 pg/mL (193-986)
[2024-03-02 16:03] LABS: Blood Urea Nitrogen 17 mg/dL (7-18); Osmolality Calculated 295 mOsm/kg (285-295)
[2024-03-02 16:04] LABS: Folic Acid > 20.0 ng/mL (8.6->20)
== END 2024-03-02 14:07 | disposition home or self-care (01) ==
LOC: CHSLAB 14:09
PROVIDERS: Visit Provider Internal Medicine Hematology & Oncology
DX: D64.9 Anemia, unspecified (principal)
CPT/HCPCS: 36415; 80048; 82607; 82728; 82746; 83540; 83550; 85025

== ENCOUNTER 2024-05-11 10:01 | Outpatient (NON) | payer MEDICARE, SELFPAY ==
[2024-05-11 10:58] LABS: Basophils Absolute Auto 0.05 K/mm3 (0.00-0.10); Basophils Percent Auto 0.7 % (0.0-1.0); Eosinophils Absolute Auto 0.25 K/mm3 (0.02-0.50); Eosinophils Percent Auto 3.6 % (1.0-6.0); Hematocrit 40.5 % (35.0-42.0); Hemoglobin 12.8 g/dL (11.7-13.8); Immature Granulocyte Absolute 0.02 K/mm3 (0.00-0.00); Immature Granulocyte Percent A 0.3 % (0.0-0.0); Lymphocytes Absolute Auto 1.47 K/mm3 (1.10-4.50); Lymphocytes Percent Auto 21.3 % (18.0-42.0); Mean Corpuscular HGB Conc 31.6 g/dL (32-36); Mean Corpuscular Hemoglobin 28.5 pg (27.0-31.0); Mean Corpuscular Volume 90.2 fL (78.0-102.0); Mean Platelet Volume 10.9 fl (9.2-11.8); Monocytes Absolute Auto 0.75 K/mm3 (0.10-0.90); Monocytes Percent Auto 10.9 % (2.0-11.0); Neutrophils Absolute Auto 4.37 K/mm3 (1.70-7.20); Neutrophils Percent Auto 63.2 % (50.0-70.0); Platelet Count Result 292 K/mm3 (150-420); Red Blood Count 4.49 M/mm3 (4.20-5.40); Red Cell Distribution Width 13.7 % (11.6-14.4); White Blood Count 6.9 K/mm3 (4.8-10.8)
[2024-05-11 10:59] LABS: Add Urine Microscopic? YES; Appearance Urine Clear (Clear); Bilirubin Urine Negative (Negative); Blood Urine Negative (Negative); Color Urine Light Yellow (Yellow); Glucose Urine UA Negative (Negative); Ketones Urine Negative (Negative); Leukocyte Esterase Ur 2+ (Negative); Nitrate Urine Negative (Negative); Protein Urine Negative (Negative); Urobilinogen Urine 0.2 mg/dL (0.2-1.0)
[2024-05-11 11:04] LABS: Bacteria Urine 2+ /hpf; RBC Urine None seen /hpf (0-2); Squamous Epithelial Cell Urine Few /hpf (Few); Transitional Epi Cells Urine Few /hpf
[2024-05-11 12:14] LABS: Alanine Aminotransferase 25 U/L (14-59); Albumin Level 3.3 g/dL (3.4-5.0); Alkaline Phosphatase 72 U/L (46-116); Anion Gap 6 mmol/L (4-12); Aspartate Amino Transferase 22 U/L (15-37); Bilirubin,Total 0.4 mg/dL (0.00-1.00); Blood Urea Nitrogen 17 mg/dL (7-18); Calcium 9.2 mg/dL (8.5-10.1); Carbon Dioxide 38 mmol/L (21-32); Chloride 100 mmol/L (98-108); Cholesterol 161 mg/dL (0-200); Creatine Kinase 100 U/L (26-192); Estimated Glomerular Filt Rate 52; Ferritin 28 ng/mL (8-252); Free T4 Free Thyroxine 0.93 ng/dL (0.76-1.46); Glucose 76 mg/dL (70-99); HDL Direct 65 mg/dL (40-60); Iron 30 ug/dL (50-170); LDL Cholesterol Calculated 86 mg/dL (<130); NT Pro B Type Natriuretic Pept 470 pg/mL (0-125); Osmolality Calculated 298 mOsm/kg (285-295); Potassium 3.3 mmol/L (3.5-5.1); Sodium 144 mmol/L (136-145); Thyroid Stimulating Hormone 1.25 uIU/mL (0.36-3.74); Total Protein 5.9 g/dL (6.4-8.2); Triglycerides 52 mg/dL (0-150); Uric Acid 6.9 mg/dL (2.6-6.0)
== END 2024-05-11 10:02 | disposition home or self-care (01) ==
LOC: CHSLAB 10:03
PROVIDERS: Visit Provider Internal Medicine
DX: D64.9 Anemia, unspecified (principal); G40.89 Other seizures; E79.0 Hyperuricemia without signs of inflammatory arthritis and tophaceous disease; E78.2 Mixed hyperlipidemia; R53.83 Other fatigue; I25.10 Atherosclerotic heart disease of native coronary artery without angina pectoris; I50.9 Heart failure, unspecified
CPT/HCPCS: 36415; 80053; 80061; 81001; 82550; 82728; 83540; 83880; 84439; 84443; 84550; 85025; 87086; 87088

== ENCOUNTER 2024-06-17 09:44 | Outpatient (CLI) | payer MEDICARE, MEDICAID, SELFPAY ==
[2024-06-17] MEDS: IRON SUCROSE COMPLEX 500 MG in SODIUM CHLORIDE 0.9% IV 250 ML 62.5 MG IVPB (10:39)
[2024-06-17 10:40] VITALS: BP 130/60; PULSE 76; RESP 18; TEMP 36.1; O2SAT 90; BMI 23.3
== END 2024-06-17 09:45 | disposition home or self-care (01) ==
PROVIDERS: PCP Internal Medicine; Visit Provider Internal Medicine
DX: D50.9 Iron deficiency anemia, unspecified (principal)
CPT/HCPCS: 96365; 96366; J1756; J7050

== ENCOUNTER 2024-07-01 09:49 | Outpatient (CLI) | payer MEDICARE, MEDICAID, SELFPAY ==
[2024-07-01] MEDS: IRON SUCROSE COMPLEX 400 MG, IRON SUCROSE COMPLEX 100 MG in SODIUM CHLORIDE 0.9% IV 250 ML 62.5 MG IVPB (10:39)
[2024-07-01 10:57] VITALS: BMI 24.0
[2024-07-01 10:58] VITALS: BP 120/60; PULSE 74; RESP 18; TEMP 36.6; O2SAT 94
== END 2024-07-01 14:45 | disposition home or self-care (01) ==
PROVIDERS: PCP Internal Medicine; Visit Provider Internal Medicine
DX: D50.9 Iron deficiency anemia, unspecified (principal)
CPT/HCPCS: 96365; 96366; J1756; J7050

== ENCOUNTER 2024-07-27 11:00 | Outpatient (CLI) | payer MEDICARE, MEDICAID, SELFPAY ==
--- NOTE | ~2024-07-27 | CT_ITS ---
EXAMINATION: CT brain wo con DATE: 07/27/2024 11:35 INDICATION: Unilateral right hemiparesis TECHNIQUE: Computed tomography (CT) of the head was performed without intravenous contrast. Sagittal and coronal reconstructions were performed. The mA was adjusted according to patient size. Iterative reconstruction technique was employed. The dose-length product was 605.33 mGy-cm. COMPARISON: head CT dated 04/14/2022 FINDINGS: No acute intracranial hemorrhage, acute infarction or abnormal extra axial fluid collection. Unchange d small old lacunar infarct in the periventricular right frontoparietal rankin radiata. There is mode rate scattered white matter hypoattenuation consistent with chronic small vessel ischemic disease. Sy mmetric prominence of the sulci consistent with mild age-appropriate diffuse cerebral and cerebellar volume loss. Ventricles are normal and symmetric. No mass/mass effect. The orbits, paranasal sinuses and mastoid air cells are normal. IMPRESSION: 1. No acute intracranial process. 2. Unchanged small old lacunar infarct at the right frontoparietal rankin radiata and moderate scatte red white matter hypoattenuation consistent with chronic small vessel ischemic disease. Reviewed, dictated and finalized at location B. TING SIGN MACHINE OPERATOR IMPRESSION: 1. No acute intracranial process. 2. Unchanged small old lacunar infarct at the right frontoparietal rankin radia ta and moderate scattered white matter hypoattenuation consistent with chronic small vessel ischemic disease.
== END 2024-07-27 11:01 | disposition home or self-care (01) ==
PROVIDERS: PCP Internal Medicine; Visit Provider Nurse Practitioner Family
DX: G81.90 Hemiplegia, unspecified affecting unspecified side (principal); Z86.73 Personal history of transient ischemic attack (TIA), and cerebral infarction without residual deficits
CPT/HCPCS: 70450

== ENCOUNTER 2024-11-09 13:29 | Outpatient (CLI) | payer MEDICARE, MEDICAID, SELFPAY ==
--- OUTSIDE RECORDS SUMMARY | 2024-11-09 15:13 | XMS_ITS | Encounter Summary ---
Author Organization [facility] Address [address] [place] [address] Care Team Providers Care Marine Propulsion Technician Name Role Phone Salima Donahue MD Primary Care Provider [phone] Gordy Rodriguez MD Unavailable Unavailable Encounter Details Date Type Department Care Team (Late st Contact Info) Description 02/19/2019 Abstract SFL CONVERSION [address] [place] [address] , Generic Conversion, Social History Tobacco Use Types Packs/Day Years Used Date Smoking Tobacco: Former Cigarettes Q uit: 2008 Smokeless Tobacco: Never Alcohol Use Standard Drinks/Week Comments No 0 (1 standard drink = 0.6 oz pur e alcohol) Comments Unknown Sex and Gender Information Value Date Recorded Sex Assigned at Not on file Legal Sex Female 6:15 PM CDT Gender Identity Not on file Sexual Orientation Not on file documented as of this encounter Functional Status * RETIRED Are you deaf or do you have serious difficulty hearing Answer Date of Assessment Author Status No 01/09/2019 10:40 AM CDT Acti ve * RETIRED Are you blind or do you have serious difficulty seeing, even when wearing glasses? Answer Date of Assessment Author Status Yes 01/09/2019 10:40 AM CDT Acti ve * Do you have serious difficulty walking or climbing stairs? Answer Date of Assessment Author Status Yes 01/09/2019 10:40 AM CDT Mckayla Dc RN Active * Do you have difficulty dressing or bathing? Answer Date of Assessment Author Status Yes 01/09/2019 10:40 AM CDT Mckayla Dc RN Active * Because of a physical, mental, or emotional condition, do you have difficulty doing errands alone such as visiting a doctor's office or shopping? Answer Date of Assessment Author Status Yes 01/09/2019 10:40 AM CDT Mckayla Dc RN Active documented as of this encounter Mental Status * Because of a physical, mental, or emotional condition, do you have serious difficulty concentrating, remembering, or making decisions? Answer Entry Date Author Status No 01/09/2019 10:40 AM AGUSTINT Mckayla Dc RN Active documented in this encounter Plan of Treatment Not on file documented as of this encounter Visit Diagnoses Not on filedocumented in this encounter Care Teams Marine Propulsion Technician Relationship Specialty Start Date End Date Salima Donahue MD [address] [place] [id number] PCP - General INTERNAL MEDICINE 12/10/17 Gordy Rodriguez MD [address] [place] [address] [place] Senior Boiler Operator INTERVENTIONAL CARDIOLOGY 09/24/18 documented as of this encounter
--- OUTSIDE RECORDS SUMMARY | 2024-11-09 15:13 | XMS_ITS | Clinical Summary ---
Author Organization [facility] Address [address] [facility] [place] [address] Care Team Providers Care Shop Helper Name Role Phone Salima Donahue MD Primary Care Provider + Allergies Active Allergy Reactions Criticality Noted Date Comments Iodine Rash High 02/28/2019 Patient states it made her kidney fail Nickel Rash Low 02/28/2019 Tapentadol Rash Low 02/28/2019 Patient states the adhesive takes her skin off Medications spironolactone (ALDACTONE) 25 mg tablet 2 Active melatonin 5 mg Tablet Take 5 mg by mouth. Active escitalopram oxalate (LEXAPRO) 20 mg tablet 2 Active acetaminophen (TYLENOL) 500 mg tablet 2 Active levETIRAcetam (KEPPRA) 250 mg tablet 2 Active albuterol sulfate 90 mcg/Actuation inhaler INHALE 2 PUFFS BY INHALATION ROUTE EVERY 6 HOURS 2 Active ALPRAZolam (XANAX) 0.5 mg tablet Take 0.5 mg by mouth every 4 hours as needed. 2 Active atorvastatin (LIPITOR) 40 mg tablet 2 Active Advair HFA 230-21 mcg/actuation HFA Aerosol Inhaler INHALE 2 PUFFS BY INHALATION ROUTE 2 TIMES PER DAY IN THE MORNING ANDEVENING 2 Active furosemide (LASIX) 40 mg tablet Take 40 mg by mouth 2 times daily. 2 Active gabapentin (NEURONTIN) 300 mg capsule TAKE 1 CAPSULE BY MOUTH THREE TIMES A DAY 2 Active omeprazole (PriLOSEC) 20 mg Capsule, Delayed Release(E.C.) 2 Active rOPINIRole (REQUIP) 1 mg tablet 2 Active Incruse Ellipta 62.5 mcg/actuation Disk with Device 2 Active umeclidinium (INCRUSE ELLIPTA) 62.5 mcg/actuation Disk with Device Take 1 Puff by inhalation daily. Active ferrous sulfate 325 mg (65 mg iron) Tablet, Delayed Release (E.C.)Indicatio ns:Chronic anemia Take 2 Tablets (650 mg) by mouth 2 times daily. 60 Tablet 6 3 Active ferrous sulfate 325 mg (65 mg iron) tablet Take 1 Tablet (325 mg) by mouth 2 times daily. 60 Tablet 5 3 Active Active Problems No known active problems Encounters Date Type Department Care Team Description 11/02/2024 External Device Data STL ABSTRACTION Provider, Abstract 10/11/2024 External Device Data STL ABSTRACTION Provider, Abstract 10/05/2024 External Device Data STL ABSTRACTION Provider, Abstract 10/05/2024 External Device Data STL ABSTRACTION Provider, Abstract from Last 3 Months Family History Medical History Relation Name Comments Melanoma Father No Known Problems Mother No Known Problems Sister 1 No Known Problems Sister 2 No Known Problems Sister 3 No Known Problems Sister 4 No Known Problems Sister 5 Relation Name Status Comments Father Mother Sister 1 Alive Sister 2 Alive Sister 3 Alive Sister 4 Alive Sister 5 Alive Social History Tobacco Use Types Packs/Day Years Used Date Smoking Tobacco: Former Cigarettes 1 30 0 09/14/1973 - 09/14/2003 Smokeless Tobacco: Never Tobacco Cessation:Counseling Given: Not Answered Alcohol Use Standard Drinks/Week Comments Never 0 (1 standard drink = 0.6 oz pur e alcohol) Comments Unknown Sex and Gender Information Value Date Recorded Sex Assigned at Not on file Legal Sex Female 2:17 PM CDT Gender Identity Not on file Sexual Orientation Not on file Last Filed Vital Signs Vital Sign Reading Time Taken Comments Blood Pressure 124/63 03/10/2024 10:55 AM CDT Pulse 72 03/10/2024 10:55 AM CDT Temperature 36.6 C (97.8 F) 03/10/2024 10:52 AM CDT Respiratory Rate 16 03/10/2024 10:52 AM CDT Oxygen Saturation 90% 03/10/2024 10:52 AM CDT Inhaled Oxygen Concentration - - Weight 59.4 kg (131 lb) 03/10/2024 10:52 AM CDT Height 165.1 cm (5' 5 ) 07/31/2022 2:58 PM PIECE GOODS PACKER Body Mass Index 21.8 07/31/2022 2:58 PM PIECE GOODS PACKER Plan of Treatment Upcoming Encounters Date Type Department Care Team (Late st Contact Info) Description 03/28/2025 11:00 AM CDT Office Visit [facility] - [place] [address] [facility] [address] [place] [address] Dino Farfan MD [address] [facility] [address] [place] [address] Health Maintenance Due Date Last Done Comments DTAP/TDAP/TD VACCINES (1 - Tdap) 1970 PNEUMOCOCCAL VACCINE 65+ YEARS (1 of 2 - PCV) 06/16/19 70 BREAST CANCER SCREENING 1991 COLORECTAL SCREENING 1996 Colorectal Cancer Screening 1996 FIT-DNA Q 3 years 1996 FIT/FOBT Q 1 year 1996 Flex Sig/CT Colonography Q 5 years 1996 ZOSTER VACCINE (1 of 2) 2001 RSV VACCINE (60+ or ) (1 - Risk 60-74 years 1-dose series) 2011 OSTEOPOROSIS SCREENING 2016 INFLUENZA VACCINE (#1) 2024 Insurance MEDICARE PART A AND B [facility] [place] [id number] Care Teams Shop Helper Relationship Specialty Start Date End Date Salima Donahue MD [address] [place] [address] PCP - General Internal Medicine 07/31/22
--- OUTSIDE RECORDS SUMMARY | 2024-11-09 15:13 | XMS_ITS | Encounter Summary ---
Author Organization [facility] Address [address] [place] [address] Care Team Providers Care Manager Card Name Role Phone Salima Donahue MD Primary Care Provider [phone] Claude Pinto MD Unavailable Gordy Rodriguez MD Unavailable Unavailable Encounter Details Date Type Department Care Team (Late st Contact Info) Description 11/28/2017 Abstract SJS CONVERSION [address] [place] [address] , Generic MD Jenniffer Social History Tobacco Use Types Packs/Day Years Used Date Smoking Tobacco: Former Comments Unknown Sex and Gender Information Value Date Recorded Sex Assigned at Not on file Legal Sex Female 6:15 PM CDT Gender Identity Not on file Sexual Orientation Not on file documented as of this encounter Plan of Treatment Not on file documented as of this encounter Visit Diagnoses Not on filedocumented in this encounter Care Teams Manager Card Relationship Specialty Start Date End Date Salima Donahue MD [address] [place] [address] PCP - General INTERNAL MEDICINE 12/10/17 Claude Pinto MD [address] [place] [address] [place] It Support Specialist CARDIOVASCULAR DISEASE 12/10/17 09/27/18 Gordy Rodriguez MD [address] [place] [address] Bowler It Support Specialist INTERVENTIONAL CARDIOLOGY 09/24/18 documented as of this encounter
--- OUTSIDE RECORDS SUMMARY | 2024-11-09 15:13 | XMS_ITS | Continuity of Care Document ---
Author Organization [facility] Address [address] [place] [address] Phone Care Team Providers Care Echocardiography Radiology Technologist Name Role Phone Faina ROGERS, Heidi Unavailable [...] Glaucoma EYE EXAM ESTABLISHED PATIENT, MEDICAL Oc t Scan Image/ OCT, Glaucoma SPECIAL REPORTS OR FORMS EYE EXAM ESTABLISHED PATIENT, MEDICAL Oc t Scan Image/ OCT, Retina FUNDUS PHOTOGRAPHY EYE EXAM, NEW PATIENT MEDICAL REFRACTION NO UPDATE DU VISUAL FIELD, BI-LATERAL Scan Image/ OCT, Retina Advance Directives Directive Yes / No Effective Date File Name No Information Encounters Encounter Description Practice Location Reason(s) For Visit Diagnoses Date Provider Providers Copied on Encounter [facility], [address] [place] [address], [id number] , [phone] [facility] No Information 3 Faina Gordon. [address] [place] [address], [id number], [place]. tel:[phone] [facility], [address] [place] [address], [id number] , [place] tel:[phone] [facility] decreased vision, double vision (chief complaint) Papilledema, unspecifiedOpen angle with borderline glaucoma findingsOther dissociated deviation of eye movementsNystagmus, unspecifiedOpen angle with borderline glaucoma findings 3 Ruben Newell. [address] [place] [address], [address], [place], [place], [id number], [place]. tel:[phone] Referring Provider: Norman Gould, [address] [place] [address], [id number] . tel:[phone] [facility], [address] [place] [address], [id number] , tel:[phone] [facility] Macular puckering of retinaPapilledema, unspecifiedOther dissociated deviation of eye movements May-0 3 Ruben Newell. [address] [place] [address], [address], [address] [place] [address], [place]. tel:[phone] [facility], [address] [place] [address], [address] [place] [address] , tel:[phone] [facility] no change in vision (chief complaint) Nystagmus, unspecifiedAnatomic al narrow angle borderline glaucomaLens replaced by other meansPapilledema, unspecifiedOther dissociated deviation of eye movementsMacular puckering of retinaSenile nuclear sclerosisEpilepsy, unspecifiedNystagmu s, unspecified Sep-2 2 Ruben Newell. [address] [place] [address], [address], [address] [place] [address], . tel:[phone] Referring Provider: Reece Perez, [address] [place] [address], [id number] . tel:[phone] [facility], [address] [place] [address], [address] [place] [address] , tel:[phone] [facility] No Information Apr-0 2 Ruben Newell. [address] [place] [address], [id number], [place]. tel:[phone] Referring Provider: Norman Gould, [address] [place] [address], [address] . tel:[phone] [facility], [address] [place] [address], [id number] , tel:[phone] [facility] improved vision (chief complaint) Papilledema, unspecifiedOther dissociated deviation of eye movements Mar-0 2 Ruben Newell. [address] [place] [address], [address], [id number], [place]. [phone] Referring Provider: Reece Perez, [address] [place] [address], [address] . tel:[phone] [facility], [address] [place] [address], [address] [place] [address] , tel:[phone] [facility] No Information 2 Lee Austin. [address] [place] [address], [address] [place] [address], [place]. tel:[phone] Referring Provider: Norman Gould, [address] [place] [address], [id number] . tel:[phone] [facility], [address] [place] [address], [address] [place] [address] , tel:[phone] [facility] No Information 2 Ruben Newell. [address] [place] [address], [address] [place] [address], [place]. tel:[phone] Referring Provider: Norman Gould, [address] [place] [address], [id number] . tel:[phone] [facility], [address] [place] [address], [address] [place] [address] , tel:[phone] [facility] follow-up (chief complaint) Papilledema, unspecifiedCATOther dissociated deviation of eye movementsEpilepsy, unspecified 1 Ruben Newell. [address] [place] [address], [address] [place] [address], [id number], [place]. [phone] Referring Provider: Norman Gould, [address] [place] [address], [id number] . tel:[phone] [facility], [address] [place] [address], [id number] , tel:[phone] [facility] Macular puckering of retinaPapilledema, unspecifiedSenile nuclear sclerosisSenile nuclear sclerosisOther dissociated deviation of eye movementsOther dissociated deviation of eye movements Dec-0 1-201 1 Knupp Reece. [address] [place] [address], [address], [place], [address] [place] [address], [place]. [phone] [facility], [address] [place] [address], [address] [place] [address] , tel:[phone] [facility] Floaters & Flashes (chief complaint) Macular puckering of retinaPapilledema, unspecifiedPapilled demetrio, unspecifiedMacular puckering of retina Oct-2 5-201 1 Knupadali Newell. [address] [place] [address], [address], [place], [address] [place] [address], [place]. [phone] Referring Provider: Norman Gould, [address] [place] [address], [id number] . tel:[phone] [facility], [address] [place] [address], [address] [place] [address] , tel:[phone] [facility] No Information Oct-2 1 anne Newell. [address] [place] [address], [address] [place] [address], [address] [place] [address], [place]. tel:[phone] Referring Provider: Norman Gould, [address] [place] [address], [id number] . tel:[phone] [facility], [address] [place] [address], [id number] , tel:[phone] [facility] No Information Oct-1 2- 1 Lee Austin. [address] [place] [address], [id number], [place]. tel:[phone] Referring Provider: Norman Gould, [address] [place] [address], [address] . tel:[phone] [facility], [address] [place] [address], [id number] , [phone] [facility] No Information Ruben Newell. [address], [address], [place], [place], [id number], . tel:[phone] Referring Provider: Reece Perez, [address], [place], [address] . tel:[phone] Family History Family Member Type Diagnosis Age [...] Disease Payers Payer name Insurance type Covered green party ID Authoriza tion(s) [place] [employer] [facility] [id number] Social History Type Description Quantity Date Captured [...] weeks I will refer to university based neuro-conservation biology professor for further evaluation and care. She will [...] advised pt and family that follow-up with neuro-conservation biology professor at a university setting is necessary per her new development with nystagmus and change in measurements found at todays exam. This will be arranged by our office. Dr. Miranda will be leaving the area permanently soon so patient will continue the new MD as needed. Educational materials provided:none needed. Related to Papilledema, unspecified - PRN Related to Papil ledema, unspecified - Return in 01/21/13 with KARINA for Ref T & VF then KARINA to ck pupils, then Dil and OCT (ON). Related to Skew deviation Papilledema, unspeci fied Skew deviation Related to Skew deviation Papilledema, unspeci fied - Addendum:Follow up with Neurology and PCP as per their instructions, previously. Related to Papilledema, unspecified - Return in 1 year w brant COLLINS for Ref T & VF then Dil [...] previous papilledema. Letter Dr. Callie MD [facility] Neurology, Dr. Godfrey MD PCP [...] Dr. Hebert Lozano & Dr Rajan ([facility] Neuro), Dr. Donaheu, done Related to Papilledema, unspecified - 6 [...] Dr. Hebert Lozano & Dr Rajan ([facility] Neuro), Dr. Donahue, done Related to CAT - 3 mo c KARINA/VF and OCT KARINA will dilate Related to CAT Papilledema, Recurre nt since 05/12/11. OCT demonstrates increased thcikness OU (OD 96->107, OS99->209). Decreased vision OU (20/25->20/30 OD 20/25->20/50 OS) Recurrence of diplopia since 05/12 (2LHT) pc/IOL OU ERM OS - 1. Pt. to be admitted at [facility]. for recurrence of papilledema, diplopia (LHT) in the presence of encephalopahty of unknown etiology. Original improved after high dose steroids. Will be done thru a direct admit to Dr. Musa (Neurology at [facility]). Spoke with [facility] Resident display fabrication supervisor who will write the orders (pager [phone]) Pt. given order for admission under Dr. Musa.LETTER TO CALLIE, done will be faxed as soon as typed 07/09. Related to Papilledema, unspecified - 4-6 weeks for HVF, Refract, KARINA to dilate Related to Papilledema, unspecified Assessments Type Assessment Date No Information Patient Care Teams Name Effective Dates (start - stop) Status Members No Information
--- OUTSIDE RECORDS SUMMARY | 2024-11-09 15:13 | XMS_ITS | Clinical Summary ---
Author Organization [facility] Address [address] [place] [address] Care Team Providers Care Warehouse Order Filler Name Role Phone Salima Donahue MD Primary Care Provider [phone] Gordy Rodriguez MD Unavailable Unavailable Allergies Active Allergy Reactions Criticality Noted Date Comments Acyclovir Vomiting Low 09/16/2012 Lorazepam Other (see comment) 12/08/2017 Patient states it made her kidney fail Hydrocodone-Acetaminop hen Rash Low 04/27/2017 Iodine Other (see comment) High 02/28/2019 Patient states it made her kidney fail Nickel Rash Low 02/28/2019 Tape Rash Low 02/28/2019 Patient states the adhesive takes her skin off Medications albuterol sulfate HFA (PROAIR HFA) 108 (90 BASE) MCG/ACT inhaler Inhale 1 puff into the lungs four times daily 2 Active ropinirole 1 MG tablet Take 1 mg by mouth 3 (three) times daily. Active levETIRAcetam 250 MG tablet Take 250 mg by mouth 2 (two) times daily. Active atorvastatin 40 MG tablet Take 40 mg by mouth nightly at bedtime. Active escitalopram 20 MG tablet Take 20 mg by mouth daily. Active Umeclidinium [place] (INCRUSE ELLIPTA) 62.5 MCG/INH AEROSOL POWDER, BREATH ACTIVATED Inhale 1 puff into the lungs daily. Active alendronate 70 MG tablet Take 70 mg by mouth every 7 days. Take in the morning with a full glass of water, on an empty stomach, and do not take anything else by mouth or lie down for the next 30 min. Active vitamin D2, ergocalciferol, 42913 UNITS capsule Take 50,000 Units by mouth once a week. Active aspirin 81 MG tablet Take 81 mg by mouth daily. Active acetaminophen 500 MG tablet Take 500 mg by mouth every 6 (six) hours as needed for Pain. Active ferrous sulfate EC 325 (65 Fe) MG tablet Take 2 tablets by mouth daily. Active melatonin 5 MG tablet Take 5 mg by mouth nightly at bedtime. Active ipratropium-alb uterol 0.5-2.5 (3) MG/3ML Solution Take 3 mLs by nebulization every 4 (four) hours as needed. Active predniSONE 20 MG tablet 40 mg daily for 3 days then 30 mg daily for 3 days then 20 mg daily for 3 days then 10 mg daily for 3 days then stop. 40 tablet 9 Active Active Problems Problem Noted Date Diagnosed Date COPD exacerbation ([facility]) 02/28/2019 CHF exacerbation ([facility]) 01/09/2019 PVD (peripheral vascular disease) 11/17/2018 Exertional dyspnea 10/20/2018 H/O: lung cancer 12/09/2017 Coronary artery disease invo lving [place] coronary artery of [place] heart without angina pectoris COPD (chronic obstructive pu lmonary disease) ([facility]) Hypercholesterolemia S/P AAA repair Immunizations Name Administration Dates Next Due Pneumococcal (Pneumovax 23) 01/13/2019(D eferred: Other - patient believes she has already had one ) Social History Tobacco Use Types Packs/Day Years Used Date Smoking Tobacco: Former Cigarettes Q uit: 2007 Smokeless Tobacco: Never Alcohol Use Standard Drinks/Week Comments No 0 (1 standard drink = 0.6 oz pur e alcohol) Comments Unknown Sex and Gender Information Value Date Recorded Sex Assigned at Not on file Legal Sex Female 6:15 PM CDT Gender Identity Not on file Sexual Orientation Not on file Last Filed Vital Signs Vital Sign Reading Time Taken Comments Blood Pressure 132/69 03/06/2019 3:53 AM CDT Pulse 64 03/06/2019 3:53 AM CDT Temperature 36.7 C (98.1 F) 03/06/2019 3:53 AM CDT Respiratory Rate 18 03/06/2019 3:53 AM CDT Oxygen Saturation 96% 03/06/2019 3:53 AM CDT Inhaled Oxygen Concentration - - Weight 76 kg (167 lb 8.8 oz) 03/06/2019 3:53 AM CDT Height 165.1 cm (5' 5 ) 03/01/2019 4:51 AM CDT Body Mass Index 27.88 03/01/2019 4:51 AM CDT Plan of Treatment Health Maintenance Due Date Last Done Comments ASCVD Statin 1950 Colorectal Cancer Screening Colonoscopy (10 Years) 1950 Pneumococcal Vaccine: 65+ Years (1 of 2 - PCV) 1957 Hepatitis C 1969 DTaP, Tdap and Td Vaccines (1 - Tdap) 1970 Mammogram Screening 1991 Zoster Vaccines (1 of 2) 2001 RSV Immunization or 60+ Years (1 - Risk 60-74 years 1-dose series) 2011 Annual Medicare Wellness Visit 2016 Dexa Scan (General) 2016 ASCVD LDL 03/01/2020 03/01/2019, 08/14, 08/27/2018, Additional history exists COVID-19 Vaccine ( season) 2024 Influenza Adult (#1) 2024 Meningococcal B Vaccine Aged Out No l onger eligible based on patient's age to complete this topic Meningococcal Vaccine Aged Out No lisseth kimberly eligible based on patient's age to complete this topic RSV Immunizations Under 20 Months Aged Out No longer eligible based on patient's age to complete this topic Procedures Procedure Name Priority Date/Time Associated Diagnosis Comments LIPID PANEL Routine 03/01/2019 3:14 AM CDT from Last 3 Months or Most Recently Relevant to Health Maintenance Results * LIPID PANEL (03/01/2019 3:14 AM CDT) CHOLESTEROL 112 MG/DL 03/01/2019 4:04 AM CDT [facility] Comment:DESIRABLE: <200 TRIGLYCERIDES 59 MG/DL 03/01/2019 4:04 AM CDT [facility] Comment:<150 NORMAL HDL 56 >49 MG/DL 03/01/2019 4:04 AM CDT [facility] LDL (CALCULATED) 44 MG/DL 03/01/20 19 4:04 AM CDT [facility] Comment:<100 OPTIMAL VLDL CALCULATION 12 MG/DL 03/01/20 19 4:04 AM CDT [facility] Comment:REFERENCE RANGE NOT ESTABLISHED CHOL/HDL RATIO 2.0 03/01/2019 4:04 AM CDT [facility] Comment:REFERENCE RANGE NOT ESTABLISHED LDL/HDL 0.8 03/01/2019 4:04 AM CDT [facility] Comment:REFERENCE RANGE NOT ESTABLISHED NON HDL CHOLESTEROL 56 MG/DL 03/01/2019 4:04 AM CDT [facility] Comment:REFERENCE RANGE NOT ESTABLISHED 03/01/2019 3:14 AM CDT [facility] Uday DO LABORATORY Final Result Performing Organization Address City/State/[facility] Co de Phone Number [facility] [address] [place] [address], [id number] from Last 3 Months or Most Recently Relevant to Health Maintenance Insurance MEDICAID MEDICARE MEDICARE MEDICAID Advance Directives Documents on File Type Date Recorded Patient Draw Hand Expl anation Advance Directives and Living Will 03/02/2019 10:16 AM short form poa for health care Advance Directives and Living Will 03/02/2019 9:23 AM POLST Power of Field Party Manager 01/17/2019 7:32 AM Advance Directives and Living Will 01/10/2019 2:49 PM 12/30/2007 POA FOR HEALTHCARE Advance Directives and Living Will 05/25/2014 ADVANCE DIRECTIVE Advance Directives and Living Will 05/25/2014 ADVANCE DIRECTIVE Advance Directives and Living Will 12/12/2013 ADVANCE DIRECTIVE Advance Directives and Living Will 12/12/2013 ADVANCE DIRECTIVE Advance Directives and Living Will 12/05/2013 ADVANCE DIRECTIVE Advance Directives and Living Will 12/05/2013 ADVANCE DIRECTIVE Advance Directives and Living Will 11/07/2013 ADVANCE DIRECTIVE * Full Code (Latest Code Status on File) Date Activated Date Inactivated Comments 02/28/2019 8:42 PM 03/06/2019 3:05 PM * DNR Date Activated Date Inactivated Comments 01/13/2019 3:34 PM 01/14/2019 7:54 PM * Full Code Date Activated Date Inactivated Comments 01/09/2019 10:34 AM 01/13/2019 3:34 PM Care Teams Warehouse Order Filler Relationship Specialty Start Date End Date Salima Donahue MD [address] [place] [address] PCP - General INTERNAL MEDICINE 12/10/17 Gordy Rodriguez MD [address] [place] [address] [place] [facility] Administrative Assistant INTERVENTIONAL CARDIOLOGY 09/24/18
== END 2024-11-09 13:30 | disposition home or self-care (01) ==
LOC: ANHNEURO 13:30
PROVIDERS: PCP Internal Medicine; Visit Provider Nurse Practitioner Family
DX: R29.898 Other symptoms and signs involving the musculoskeletal system (principal)
CPT/HCPCS: 95886; 95909

== ENCOUNTER 2025-04-04 09:46 | Outpatient (CLI) | payer MEDICARE, MEDICAID, SELFPAY ==
--- OUTSIDE RECORDS SUMMARY | 2025-04-04 09:53 | XMS_ITS | Clinical Summary ---
Author Organization [facility] Address [address] [place] [address] Care Team Providers Care Jewel Sawyer Name Role Phone Salima Donahue MD Primary Care Provider [phone] Gordy Rodriguez MD Unavailable Unavailable Allergies Active [...] 20 mg by mouth daily. Active Umeclidinium [place] (INCRUSE ELLIPTA) 62.5 MCG/INH AEROSOL POWDER, BREATH ACTIVATED Inhale 1 puff into the lungs daily. Active alendronate 70 MG tablet Take 70 mg by mouth every 7 days. Take in the morning with a full glass of water, on an empty stomach, and do not take anything else by mouth or lie down for the next 30 min. Active vitamin D2, ergocalciferol, 78570 UNITS capsule Take 50,000 Units by mouth [...] Problem Noted Date Diagnosed Date COPD exacerbation ([facility]) 02/28/2019 CHF exacerbation ([facility]) 01/09/2019 PVD (peripheral vascular disease) 11/17/2018 Exertional dyspnea 10/20/2018 H/O: lung cancer 12/09/2017 Coronary artery disease invo lving [place] coronary artery of [place] heart without angina pectoris COPD (chronic obstructive pu lmonary disease) ([facility]) Hypercholesterolemia S/P AAA repair Immunizations Immunization Administration Dates Next Due Pneumococcal (Pneumovax 23) 01/13/2019(D eferred: Other - patient believes she has already had one) Social History Tobacco Use Types Packs/Day Years [...] 3:53 AM CDT Height 165.1 cm (5' 5) 03/01/2019 4:51 AM CDT Body Mass Index 27.88 03/01/2019 4:51 AM CDT Plan of Treatment Health Maintenance Due Date Last Done Comments ASCVD Statin 1950 Colorectal Cancer Screening Colonoscopy (10 Years) 1951 Hepatitis C 1969 DTaP, Tdap and Td Vaccines (1 - Tdap) 1970 Pneumococcal Vaccine: 50+ Years (1 of 2 - PCV) 1970 Mammogram Screening 1991 Zoster Vaccines (1 of 2) 2001 RSV Immunization or 60+ Years (1 - Risk 60-74 years 1-dose series) 2011 Annual Medicare Wellness Visit 2016 Dexa Scan (General) 2016 [facility] LDL 03/01/2020 03/01/2019, 08/14, 08/27/2018, Additional history exists COVID-19 Vaccine (2023- season) 2024 Meningococcal B Vaccine Aged Out No [...] CHOLESTEROL 112 MG/DL 03/01/2019 4:04 AM CDT [facility] Comment:DESIRABLE: <200 TRIGLYCERIDES 59 MG/DL 03/01/2019 4:04 AM CDT [facility] Comment:<150 NORMAL HDL 56 >49 MG/DL 03/01/2019 4:04 AM CDT [facility] LDL (CALCULATED) 44 MG/DL 03/01/20 4:04 AM CDT [facility] Comment:<100 OPTIMAL VLDL CALCULATION 12 MG/DL 03/01/20 4:04 AM CDT [facility] Comment:REFERENCE RANGE NOT ESTABLISHED CHOL/HDL RATIO 2.0 03/01/2019 4:04 AM CDT [facility] Comment:REFERENCE RANGE NOT ESTABLISHED LDL/HDL 0.8 03/01/2019 4:04 AM CDT [facility] Comment:REFERENCE RANGE NOT ESTABLISHED NON HDL CHOLESTEROL 56 MG/DL 03/01/2019 4:04 AM CDT [facility] Comment:REFERENCE RANGE NOT ESTABLISHED 03/01/2019 3:14 AM CDT Dino S Uday DO LABORATORY Final Result [facility] [address] [place] [address], [id number] from Last 3 Months or Most Recently Relevant to Health Maintenance Insurance MEDICAID MEDICARE MEDICARE MEDICAID Advance Directives Documents on File Type Date Recorded Patient Enterostomal Nurse Expl anation Advance Directives and Living Will 03/02/2019 10:16 AM short form poa for health care Advance Directives and Living Will 03/02/2019 9:23 AM POLST Power of Zipper Setter Chainstitch 01/17/2019 7:32 AM Advance Directives and Living [...] 10:34 AM 01/13/2019 3:34 PM Care Teams Jewel Sawyer Relationship Specialty Start Date End Date Salima Donahue MD [address] [place] [id number] PCP - General INTERNAL MEDICINE 12/10/17 Gordy Rodriguez MD [address] [place] [address] [place] Sr. Director INTERVENTIONAL CARDIOLOGY 09/24/18
--- OUTSIDE RECORDS SUMMARY | 2025-04-04 09:53 | XMS_ITS | Clinical Summary ---
Author Organization [facility] Address [address] [facility] [place] [address] Care Team Providers Care Client Insights Consultant Name Role Phone Salima Donahue MD Primary [...] times daily. 60 Tablet 5 3 Active amoxicillin-cla vulanate (AUGMENTIN) 875-125 mg tablet Take 1 Tablet by mouth 2 times daily. 5 Active Active Problems No known active problems Encounters Date Type Department Care Team Description 03/28/2025 11:00 AM CDT Office Visit [facility] Oncology and Hematology - [place] [address] [place] [address] Dino Farfan MD Chronic anemia (Primary Dx) 03/20/2025 Orders Only Initial Department [address] YOST: [place] [address] Provider, Historical 03/07/2025 External Device Data STL ABSTRACTION Provider, Abstract 02/28/2025 External Device Data STL ABSTRACTION Provider, Abstract 02/07/2025 External Device Data STL ABSTRACTION Provider, Abstract 02/02/2025 External Device Data STL ABSTRACTION Provider, Abstract 02/01/2025 External Device Data STL ABSTRACTION Provider, Abstract 01/31/2025 External Device Data STL ABSTRACTION Provider, Abstract [...] Sign Reading Time Taken Comments Blood Pressure 126/73 03/28/2025 11:08 AM CDT Pulse 66 03/28/2025 11:08 AM CDT Temperature 36.3 C (97.4 F) 03/28/2025 11:08 AM CDT Respiratory Rate 15 03/28/2025 11:08 AM CDT Oxygen Saturation 91% 03/28/2025 11:08 AM CDT Inhaled Oxygen Concentration - - Weight 63.1 kg (139 lb 3.2 oz) 03/28/2025 11:08 AM CDT Height 165.1 cm (5' 5) 07/31/2022 2:58 PM PAYMENT POSTER Body Mass Index 23.16 07/31/2022 2:58 PM PAYMENT POSTER Plan of Treatment Upcoming Encounters Date Type Department Care Team (Late st Contact Info) Description 09/28/2025 2:30 PM PAYMENT POSTER Office Visit [facility] Oncology and Hematology [facility] [address] [place] [address] [facility] [address] [place] [address] Dino Farfan MD [address] [facility] [address] [place] [address] Health Maintenance Due Date Last Done Comments DTAP/TDAP/TD VACCINES (1 - Tdap) 1970 PNEUMOCOCCAL VACCINE 50+ YEARS (1 of 2 - PCV) 06/16/19 70 Traditional Medicare (ACO) Annual Wellness Visit 06/16 BREAST CANCER SCREENING 1991 COLORECTAL SCREENING 1996 Colorectal Cancer Screening 1996 FIT-DNA Q 3 years 1996 FIT/FOBT Q 1 year 1996 Flex Sig/CT Colonography Q 5 years 1996 ZOSTER VACCINE (1 of 2) 2001 RSV VACCINE (60+ or ) (1 - Risk 60-74 years 1-dose series) 2011 OSTEOPOROSIS SCREENING 2016 INFLUENZA VACCINE (#1) 2025 Procedures Procedure Name Priority Date/Time Associated Diagnosis Comments VITAMIN D 25 HYDROXY Routine 03/20/2025 11:20 AM CDT BRAIN NATRIURETIC PEPTIDE, BNP OR PROBNP Routine 03/20/2025 11:20 AM CDT VITAMIN B12 LEVEL Routine 03/20/2025 11: 20 AM CDT TSH Routine 03/20/2025 11:20 AM CDT T4 FREE Routine 03/20/2025 11:20 AM CDT CBC WITH DIFFERENTIAL Routine 03/20/2025 11:20 AM CDT URINALYSIS WITH REFLEX CULTURE Routine 03/20/2025 11:20 AM CDT CK Routine 03/20/2025 11:20 AM CDT LIPID PANEL Routine 03/20/2025 11:20 AM CDT COMPREHENSIVE METABOLIC PANEL Routine 03/20/2025 11:20 AM CDT URIC ACID Routine 03/20/2025 11:20 AM CDT IRON, TIBC, AND PERCENT SATURATION Routine 03/20/2025 11:20 AM CDT URINE CULTURE Routine 03/20/2025 11:20 AM CDT from Last 3 Months Results * (ABNORMAL) URINALYSIS WITH REFLEX CULTURE (03/20/2025 11:20 AM CDT) COLOR UA YELLOW YELLOW [facility] CLARITY UA CLEAR CLEAR [facility] SPECIFIC GRAVITY UA 1.011 1.001 - 1.035 [facility] PH UA 7.5 5.0 - 8.0 [facility] GLUCOSE UA NEGATIVE NEGATIVE [facility] BILIRUBIN UA NEGATIVE NEGATIVE [facility] KETONES UA NEGATIVE NEGATIVE [facility] BLOOD UA NEGATIVE NEGATIVE [facility] PROTEIN UA NEGATIVE NEGATIVE [facility] NITRITE UA POSITIVE(A) NEGATIVE [facility] LEUKOCYTE ESTERASE UA 2+(A) NEGATIVE [facility] WBC UA 6-10(A) < OR = 5 /HPF [facility] RBC UA NONE SEEN < OR = 2 /HPF [facility] EPITHELIAL CELLS, URINE NONE SEEN < OR = 5 /HPF [facility] BACTERIA UA MANY(A) NONE SEEN /HPF [facility] HYALINE CAST 6-10(A) NONE SEEN /LPF [facility] URINE NOTE [facility] Comment: This urine was analyzed for the presence of WBC, RBC, bacteria, casts, and other formed elements. Only those elements seen were reported. URINE CULTURE [facility] Comment: CULTURE INDICATED - RESULTS TO FOLLOW [facility] [address] [place] [address] 03/20/2025 11:2 0 AM CDT 03/20/2025 11:21 AM CDT Salima Donahue MD URINE ORDERABLES Final R esult [facility] [phone] [facility] [address] [place] [address] * IRON, TIBC, AND PERCENT SATURATION (03/20/2025 11:20 AM CDT) IRON 74 45 - 160 mcg/dL [facility] TIBC 276 250 - 450 mcg/dL (calc) [facility] IRON % SATURATION 27 16 - 45 % (calc) [facility] FERRITIN 50 16 - 288 ng/mL [facility] Comment: [facility] [address] [place] [address] 03/20/2025 11:2 0 AM CDT 03/20/2025 11:21 AM CDT us Salima Donahue MD CHEMISTRY ORDERABLES Fin al Result [facility] [phone] [facility] [address] [address] * (ABNORMAL) CBC WITH DIFFERENTIAL (03/20/2025 11:20 AM CDT) WBC 9.3 3.8 - 10.8 Thousand/u L [facility] RBC 4.53 3.80 - 5.10 Million/uL [facility] HEMOGLOBIN 12.9 11.7 - 15.5 g/dL [facility] HEMATOCRIT 41.9 35.0 - 45.0 % [facility] MCV 92.5 80.0 - 100.0 fL [facility] MCH 28.5 27.0 - 33.0 pg [facility] MCHC 30.8(L) 32.0 - 36.0 g/dL [facility] Comment: For adults, a slight decrease in the calculated MCHC value (in the range of 30 to 32 g/dL) is most likely not clinically significant; however, it should be interpreted with caution in correlation with other red cell parameters and the patient's clinical condition. RDW 13.5 11.0 - 15.0 % [facility] PLATELETS 333 140 - 400 Thousand/u L [facility] MPV 10.2 7.5 - 12.5 fL [facility] NEUTROPHIL ABSOLUTE 6,947 1,500 - 7,800 cells/uL [facility] LYMPHOCYTE ABSOLUTE 1,414 850 - 3,900 cells/uL [facility] MONOCYTE ABSOLUTE 605 200 - 950 cells/uL [facility] EOSINOPHIL ABSOLUTE 279 15 - 500 cells/uL [facility] BASOPHILS ABSOLUTE 56 0 - 200 cells/uL [facility] NEUTROPHIL 74.7 % [facility] LYMPHOCYTES 15.2 % [facility] MONOCYTE 6.5 % [facility] EOSINOPHILS 3.0 % [facility] BASOPHILS 0.6 % [facility] COMMENT HEMATOLOGY [facility] Comment: We received your handwritten test order and performed CBC with differential (includes hemogram, platelet count and WBC with automated differential). If you intended to order a CBC without differential or another test, please contact us at [phone] ( ), to adjust the billing appropriately. [address] [address] 03/20/2025 11:2 0 AM CDT 03/20/2025 11:21 AM CDT us Salima Donahue MD HEMATOLOGY ORDERABLES Fi nal Result [facility] [phone] [employer] [facility] [address] [place] [address] * (ABNORMAL) VITAMIN D 25 HYDROXY (03/20/2025 11:20 AM CDT) VITAMIN D, 25 OH, TOTAL >150(H) 30 - 100 ng/mL [facility] Comment: Vitamin D Status 25-OH Vitamin D: Deficiency: <20 ng/mL Insufficiency: 20 - 29 ng/mL Optimal: > or = 30 ng/mL For 25-OH Vitamin D testing on patients on D2-supplementation and patients for whom quantitation of D2 and D3 fractions is required, the QuestAssureD(TM) 25-OH VIT D, (D2,D3), LC/MS/MS is recommended: order code 94144 (patients >2yrs). Vitamin D is fat-soluble and therefore inadvertent or intentional ingestion of excessively high amounts could be toxic. Studies in children and adults suggest blood levels would need to exceed 150 ng/mL before there is any concern. Abida MF, Marixa SORIA, Rosie ALFORD, et al., Evaluation, treatment, and prevention of vitamin D deficiency: an Endocrine Society clinical practice guideline. J.Clin. Endocrinol.Metab.2011;96 (7):1911-30. See Note 1 Note 1 For additional information, please refer to http://education.Accelitec/faq/ZIV779 (This link is being provided for informational/ educational purposes only.) [facility] [address] [place] [address] 03/20/2025 11:2 0 AM CDT 03/20/2025 11:21 AM CDT Salima Donahue MD CHEMISTRY ORDERABLES Fin al Result [facility] [phone] [facility] [address] [place] [address] * (ABNORMAL) URINE CULTURE (03/20/2025 11:20 AM CDT) URINE CULTURE SEE NOTE(A) [facility] Comment: CULTURE, URINE, ROUTINE Micro Number: [id number] Test Status: Final Specimen Source: Urine Specimen Quality: Adequate Result: Greater than 100,000 CFU/mL of Escherichia coli E.coli INT SPARKLE AMOX/CLAVULANATE S 4 AMP/SULBACTAM S <=2 CEFAZOLIN NR <=4 2 CEFEPIME S <=0.12 CEFTAZIDIME S <=1 CEFTRIAXONE S <=0.25 CIPROFLOXACIN R >=4 GENTAMICIN S <=1 IMIPENEM S <=0.25 LEVOFLOXACIN R >=8 MEROPENEM S <=0.25 NITROFURANTOIN I 64 PIP/TAZOBACTAM S <=4 TRIMETHOPRIM/SULFA S <=20 S = Susceptible I = Intermediate R = Resistant NS = Not susceptible SDD = Susceptible Dose Dependent * = Not Tested NR = Not Reported NN = See Therapy Comments THERAPY COMMENTS Note 1: For infections other than uncomplicated UTI caused by E. coli, K. pneumoniae or P. mirabilis: Cefazolin is resistant if SPARKLE > or = 8 mcg/mL. (Distinguishing susceptible versus intermediate for isolates with SPARKLE < or = 4 mcg/mL requires additional testing.) Note 2: For uncomplicated UTI caused by E. coli, K. pneumoniae or P. mirabilis: Cefazolin is susceptible if SPARKLE <32 mcg/mL and predicts susceptible to the oral agents cefaclor, cefdinir, cefpodoxime, cefprozil, cefuroxime, cephalexin and loracarbef. [facility] [address] [place] [address] 03/20/2025 11:2 0 AM CDT 03/20/2025 11:21 AM CDT Salima Donahue MD MICROBIOLOGY - GENERAL O RDERABLES Final Result Performing Organization Address City/[facility] Co de Phone Number [facility] [phone] [facility] [address] [place] [address] * URIC ACID (03/20/2025 11:20 AM CDT) URIC ACID 6.6 2.5 - 7.0 mg/dL [facility] Comment: Therapeutic target for gout patients: <6.0 mg/dL [address] [address] 03/20/2025 11:2 0 AM CDT 03/20/2025 11:21 AM CDT Salima Donahue MD CHEMISTRY ORDERABLES Fin al Result Performing Organization Address [facility] Co de Phone Number [facility] [phone] [facility] [address] [place] [address] * TSH (03/20/2025 11:20 AM CDT) TSH 1.12 0.40 - 4.50 mIU/L [facility] Comment: [place] [address] [place] [address] 03/20/2025 11:2 0 AM CDT 03/20/2025 11:21 AM CDT Salima Donahue MD CHEMISTRY ORDERABLES Fin al Result [facility] [phone] [employer] [facility] [address] [place] [address] * T4 FREE (03/20/2025 11:20 AM CDT) [facility] T4 FREE 1.1 0.8 - 1.8 ng/dL [facility] Comment: [facility] [address] [place] [address] 03/20/2025 11:2 0 AM CDT 03/20/2025 11:21 AM CDT Salima Donahue MD CHEMISTRY ORDERABLES Fin al Result Performing Organization Address [facility] Co de Phone Number [facility] [phone] [facility] [address] [place] [address] * BRAIN NATRIURETIC PEPTIDE, BNP OR PROBNP (03/20/2025 11:20 AM CDT) [facility] BRAIN NATRIURETIC PEPTIDE 69 <100 pg/mL [facility] Comment: BNP levels increase with age in the general population with the highest values seen in individuals greater than 75 years of age. Reference: J. Am. Karlo. Cardiol. 2002; 40:976-982. [facility] [address] [place] [address] 03/20/2025 11:2 0 AM CDT 03/20/2025 11:21 AM CDT Salima Donahue MD CHEMISTRY ORDERABLES Fin al Result Performing Organization Address City/[facility] Co de Phone Number [facility] [phone] [facility] [address] [place] [address] * VITAMIN B12 LEVEL (03/20/2025 11:20 AM CDT) VITAMIN B12 872 200 - 1100 pg/mL [facility] Comment: [facility] [address] [place] [address] 03/20/2025 11:2 0 AM CDT 03/20/2025 11:21 AM CDT Salima Donahue MD CHEMISTRY ORDERABLES Fin al Result Performing Organization Address City/[facility]/ZIP Co de Phone Number [facility] [phone] [facility] [address] [place] [address] * CK (03/20/2025 11:20 AM CDT) Pathologist [facility] CK 181 18 - 225 U/L [facility] Comment: [facility] [address] [place] [address] 03/20/2025 11:2 0 AM CDT 03/20/2025 11:21 AM CDT Salima Donahue MD CHEMISTRY ORDERABLES Fin al Result Performing Organization Address City/[facility] de Phone Number [facility] [phone] [facility] [address] [place] [address] * LIPID PANEL (03/20/2025 11:20 AM CDT) Pathologist [facility] CHOLESTEROL 172 <200 mg/dL [facility] HDL 63 > OR = 50 mg/dL [facility] TRIGLYCERIDE 81 <150 mg/dL [facility] LDL CALCULATED 92 mg/dL (calc) [facility] Comment: Reference range: <100 Desirable range <100 mg/dL for primary prevention; <70 mg/dL for patients with CHD or diabetic patients with > or = 2 CHD risk factors. LDL-C is now calculated using the Grayson calculation, which is a validated novel method providing better accuracy than the Friedewald equation in the estimation of LDL-C. Bethel LIRA et al. POLLY. 2013;310(19): 7053-2752 (http://education.[employer]Art [employer]/faq/DGO539) CHOL/HDL RATIO 2.7 <5.0 (calc) [facility] NON-HDL CHOLESTEROL 109 <130 mg/dL (calc) [facility] Comment: For patients with diabetes plus 1 major ASCVD risk factor, treating to a non-HDL-C goal of <100 mg/dL (LDL-C of <70 mg/dL) is considered a therapeutic option. [address] [address] 03/20/2025 11:2 0 AM CDT 03/20/2025 11:21 AM CDT us Salima Donahue MD CHEMISTRY ORDERABLES Fin al Result [facility] [phone] [facility] [address] [place] [address] * (ABNORMAL) COMPREHENSIVE METABOLIC PANEL (03/20/2025 11:20 AM CDT) GLUCOSE 86 65 - 99 mg/dL [facility] Comment: Fasting reference interval BUN 19 7 - 25 mg/dL [facility] CREATININE 1.15(H) 0.60 - 1.00 mg/dL [facility] GFR 50(L) > OR = 60 mL/min/1.7 3m2 [facility] BUN/CREAT RATIO 17 6 - 22 (calc) [facility] SODIUM 143 135 - 146 mmol/L [facility] POTASSIUM 3.9 3.5 - 5.3 mmol/L [facility] CHLORIDE 96(L) 98 - 110 mmol/L [facility] CO2 36(H) 20 - 32 mmol/L [facility] CALCIUM 9.9 8.6 - 10.4 mg/dL [facility] TOTAL PROTEIN 6.7 6.1 - 8.1 g/dL [facility] ALBUMIN 4.0 3.6 - 5.1 g/dL [facility] GLOBULIN 2.7 1.9 - 3.7 g/dL (calc) [facility] ALBUMIN/GLOBULIN RATIO 1.5 1.0 - 2.5 (calc) [facility] BILIRUBIN TOTAL 0.5 0.2 - 1.2 mg/dL [facility] ALKALINE PHOSPHATASE 63 37 - 153 U/L [facility] AST 26 10 - 35 U/L [facility] ALT 19 6 - 29 U/L [facility] Comment: [facility] [address] [place] [address] 03/20/2025 11:2 0 AM CDT 03/20/2025 11:21 AM CDT Salima Donahue MD CHEMISTRY ORDERABLES Fin al Result Performing Organization Address City/State/[facility] Phone Number [facility] [phone] [employer] [facility] [address] [place] [address] from Last 3 Months Insurance MEDICARE PART A AND B [facility] GILDA [place]N [id number] Care Teams Client Insights Consultant Relationship Specialty Start Date End Date Salima Donahue MD [address] [place] [address] PCP - General Internal Medicine 07/31/22
--- OUTSIDE RECORDS SUMMARY | 2025-04-04 09:53 | XMS_ITS | Encounter Summary ---
Author Organization [facility] Address [address] [place] [address] Care Team Providers Care Dish Up Person Name Role Phone Salima Donahue MD Primary Care Provider [phone] Gordy Rodriguez MD Unavailable Unavailable Encounter Details Date Type Department Care Team (Late st Contact Info) Description 02/19/2019 Abstract [facility] CONVERSION [address] [place] [address] , Generic Conversion, Social History Tobacco Use [...] on filedocumented in this encounter Care Teams Dish Up Person Relationship Specialty Start Date End Date Salima Donahue MD [address] [place] [address] PCP - General INTERNAL MEDICINE 12/10/17 Gordy Rodriguez MD [address] [place] [address] [place] Production Maintenance Mechanic INTERVENTIONAL CARDIOLOGY 09/24/18 documented as of this encounter
--- OUTSIDE RECORDS SUMMARY | 2025-04-04 09:53 | XMS_ITS | Encounter Summary ---
Author Organization [facility] Address [address] [place] [address] Care Team Providers Care Burnt Lime Drawer Name Role Phone Salima Donahue MD Primary Care Provider Claude Pinto MD Unavailable Gordy Rodriguez MD Unavailable Unavailable Encounter Details Date Type Department Care Team (Late st Contact Info) Description 11/28/2017 Abstract [facility] CONVERSION [address] [place] [address] , Generic MD Jenniffer Social History Tobacco [...] on filedocumented in this encounter Care Teams Burnt Lime Drawer Relationship Specialty Start Date End Date Salima Donahue MD [address] [place] [address] PCP - General INTERNAL MEDICINE 12/10/17 Claude Pinto MD [address] [place] [address] [employer] Teacher CARDIOVASCULAR DISEASE 12/10/17 09/27/18 Gordy Rodriguez MD [address] [place] [address] [employer] Teacher INTERVENTIONAL CARDIOLOGY 09/24/18 documented as of this encounter
[2025-04-04 10:12] VITALS: BP 136/79; PULSE 72; RESP 16; TEMP 36.6; O2SAT 95; BMI 24.0
[2025-04-04] MEDS: ZOLEDRONIC ACID 5 MG/100 ML 100 ML 400 MG IVPB (10:19)
[2025-04-04 10:41] VITALS: BP 132/67; PULSE 68; RESP 14; O2SAT 94
--- NOTE | 2025-04-04 10:43 | PC.NURSE ---
Tolerated Reclast infusion well. SEE MAR/patient care notes.
--- NOTE | 2025-04-04 10:43 | PC.NURSE ---
doesn't need CBC prior to this infusion. Had to say yes in order go forward in the MAR.
--- NOTE | 2025-04-04 10:46 | PC.NURSE ---
[facility] came to pick patient up to return to [facility].
== END 2025-04-04 09:47 | disposition home or self-care (01) ==
PROVIDERS: PCP Internal Medicine; Visit Provider Internal Medicine
DX: M81.0 Age-related osteoporosis without current pathological fracture (principal)
CPT/HCPCS: 96374; J3489

== ENCOUNTER 2025-06-28 14:24 | Outpatient (CLI) | payer MEDICARE, MEDICAID, SELFPAY ==
--- OUTSIDE RECORDS SUMMARY | 2013-03-23 04:59 | XMS_ITS | Continuity of Care Document ---
Author Organization [facility], L TD Address [address] [place] [address] Phone Care Team Providers Care Export Administrator Name Role Phone Heidi Eisenberg MD Unavailable Unavailable Allergies, Adverse Reactions, Alerts Substance Reaction Status Criticality acyclovir Unknown Active No Information Medications Medication Instructions Dosage Effective Dates (start - stop) Status Comments CITALOPRAM HBR (unknown strength) Not Available - Active ALPRAZOLAM (unknown strength) Not Available - Active ALLOPURINOL (unknown strength) Not Available - Active VITAMINS (unknown strength) Not Available - Active XANAX (unknown strength) Not Available - Active METOPROLOL SUCCINATE (unknown strength) Not Available - Active LOVASTATIN (unknown strength) Not Available - Active B12 (unknown strength) Not Available - Act charissa ASPIR 81 (unknown strength) Not Available - Active SPIRIVA HANDIHALER (unknown strength) Not Available - Active CALCIO HUMAIRA (unknown strength) Not Available - Active POTASSIUM (unknown strength) Not Available - Active VITAMIN D2 (unknown strength) Not Available - Active MAGNESIA [...] Provider Providers Copied on Encounter [facility], [address] [place] [address], [id number] , tel:[phone] [facility] No Information 3 Faina Gordon. [address] [place] [address], [id number], [place]. tel:[phone] [facility], [address] [place] [address], [id number] , [place] tel:[phone] [facility] Papilledema, unspecifiedOpen angle with borderline glaucoma findingsOther dissociated deviation of eye movementsNystagmus, unspecifiedOpen angle with borderline glaucoma findings 3 Ruben Newell. [address] [place] [address], [address], [place], [place], [id number], [place]. tel:[phone] Referring Provider: Norman Gould, [address] [place] [address], [id number] . tel:[phone] [facility], [address] [place] [address], [id number] , [place] tel:[phone] [facility] Macular puckering of retinaPapilledema, unspecifiedOther dissociated deviation of eye movements May-0 3 Ruben Newell. [address] [place] [address], [address] [facility], [place], [place], [id number], [place]. tel:[phone] [facility], [address] [place] [address], [id number] , [place] tel:[phone] [facility] Nystagmus, unspecifiedAnatomic al narrow angle borderline glaucomaLens replaced by other meansPapilledema, unspecifiedOther dissociated deviation of eye movementsMacular puckering of retinaSenile nuclear sclerosisEpilepsy, unspecifiedNystagmu s, unspecified Sep-2 2 Ruben Newell. [address] [place] [address], [place], [place], [id number], [place]. tel:[phone] Referring Provider: Reece Perez, [address] [place] [address], [place], [address] . tel:[phone] [facility], [address] [place] [address], [id number] , [place] tel:[phone] [facility] No Information 2 Ruben Newell. [address] [place] [address], [place], [place], [id number], [place]. tel:[phone] Referring Provider: Norman Gould, [address] [place] [address], [id number] . tel:[phone] [facility], [address] [place] [address], [id number] , [place] tel:[phone] [facility] Papilledema, unspecifiedOther dissociated deviation of eye movements Nov-0 2 Ruben Newell. [address] [place] [address], [address] [facility], [place], [place], [id number], [place]. tel:[phone] Referring Provider: Reece Perez, [address] [place] [address] [address] [facility], [place], [place], [address] [place] [address] . tel:[phone] [facility], [address] [place] [address], [address] [place] [address] , tel: [phone] [facility] No Information 2 Lee Norman. [address] [place] [address], [address] [place] [address], . tel:[phone] Referring Provider: Norman Gould, [address] [place] [address], [address] [place] [address] . tel:[phone] [facility], [address] [place] [address], [address] [place] [address] , tel: [phone] [facility] No Information 2 Knupp Reece. [address] [place] [address], [address], [address] [place] [address], . tel:[phone] Referring Provider: Norman Gould, [address] [place] [address], [address] [place] [address] . tel:[phone] [facility], [address] [place] [address], [address] [place] [address] , tel: [phone] [facility] Papilledema, unspecifiedCATOther dissociated deviation of eye movementsEpilepsy, unspecified Dec- 1 Knupp Reece. [address] [place] [address], [address], [place], [address] [place] [address], . tel:[phone] Referring Provider: Norman Mosesatia Bryanna, [address] [place] [address], [address] [place] [address] . tel:[phone] [facility], [address] [place] [address], [address] [place] [address] , tel: [phone] [facility] Macular puckering of retinaPapilledema, unspecifiedSenile nuclear sclerosisSenile nuclear sclerosisOther dissociated deviation of eye movementsOther dissociated deviation of eye movements Dec- 1 Knupp Reece. [address] [place] [address], [address] [facility], [place], [id number], [place]. tel:[phone] [facility], [address] [place] [address], [id number] , [place] tel:[phone] [facility] Macular puckering of retinaPapilledema, unspecifiedPapilled demetrio, unspecifiedMacular puckering of retina Oct-2 1 Ruben Newell. [address] [place] [address], [address], [place], [place], [id number], [place]. tel:[phone] Referring Provider: Norman Gould, [address] [place] [address], [id number] . tel:[phone] [facility], [address] [place] [address], [id number] , [place] tel:[phone] [facility] No Information Jun-2 1 Ruben Newell. [address] [place] [address], [place] [address], [place], [id number], [place]. [phone] Referring Provider: Norman Gould, [address] [place] [address], [id number] . tel:[phone] [facility], [address] [place] [address], [id number] , [place] tel:[phone] [facility] No Information Jun- 1 Lee Austin. [address] [place] [address], [id number], [place]. tel:[phone] Referring Provider: Norman Gould, [address] [place] [address], [id number] . tel:[phone] [facility], [address] [place] [address], [id number] , [place] tel:[phone] [facility] No Information Apr- 1 Ruben Newell. [address] [place] [address], [address], [place], [place], [id number], [place]. tel:[phone] Referring Provider: Reece Perez, [address] [facility] [address], [place], [address] . tel:[phone] Family History Family Member Type Diagnosis Age [...] Insurance type Covered republican ID Authoriza tion(s) [facility] [id number] Social History Type Description Quantity Date Captured [...] weeks I will refer to university based neuro-pattern clerk for further evaluation and care. She will [...] advised pt and family that follow-up with neuro-pattern clerk at a [place] setting is necessary per her new development [...] from previous papilledema. Letter Dr. Callie MD [facility] Neurology, Dr. Godfrey MD PCP done. [...] Letter Dr. Hebert Lozano & Dr Rajan ([facility] Neuro), Dr. Donahue, done Related to [...] Letter Dr. Hebert Lozano & Dr Rajan ([facility] Neuro), Dr. Donahue, done Related to CAT - 4-6 weeks for HVF, Refract, KARINA to dilate Related to Papilledema, unspecified Papilledema, Recurre nt since 05/12/11. OCT demonstrates increased thcikness OU (OD 96->107, OS99->209). Decreased vision OU (20/25->20/30 OD 20/25->20/50 OS) Recurrence of diplopia since 05/12 (2LHT) pc/IOL OU ERM OS - 1. Pt. to be admitted at [facility]. for recurrence of papilledema, diplopia (LHT) in the presence of encephalopahty of unknown etiology. Original improved after high dose steroids. Will be done thru a direct admit to Dr. Musa (Neurology at [facility]). Spoke with LEIGH Resident christian education director who will write the orders (pager [phone]) Pt. given order for admission under Dr. Musa.LETTER TO CALLIE, done will be faxed as soon as typed 07/09. Related to Papilledema, unspecified Assessments Type Assessment Date No Information Patient Care Teams Name Effective Dates (start - stop) Status Members No Information
--- NOTE | ~2025-06-28 | US_ITS ---
EXAMINATION: US venous doppler [facility] DATE: 06/28/2025 15:17 INDICATION: Left lower limb swelling TECHNIQUE: Grayscale ultrasound images without and with compression and Doppler ultrasound images of the left lower extremity veins were obtained. COMPARISON: None. FINDINGS: The visualized portions of left common femoral vein, profunda (deep) femoral vein, femoral vein, popliteal vein, peroneal veins, posterior tibial veins, gastrocnemius vein and greater saphenous vein outflow are patent. Subcutaneous edema at the left calf. IMPRESSION: 1. No deep venous thrombosis in the left lower limb. Reviewed, dictated and finalized at location A.
[2025-06-28 14:46] LABS: Hematocrit 40.3 % (35.0-42.0); Hemoglobin 12.2 g/dL (11.7-13.8); Mean Corpuscular HGB Conc 30.3 g/dL (32-36); Mean Corpuscular Hemoglobin 28.2 pg (27.0-31.0); Mean Corpuscular Volume 93.3 fL (78.0-102.0); Platelet Count Result 305 K/mm3 (150-420); Red Blood Count 4.32 M/mm3 (4.20-5.40); White Blood Count 8.1 K/mm3 (4.8-10.8)
--- OUTSIDE RECORDS SUMMARY | 2025-06-28 16:47 | XMS_ITS | Encounter Summary ---
Author Organization [facility] Address [address] [place] [address] Care Team Providers Care Unit Secy Name Role Phone Salima Donahue MD Primary Care Provider [phone] Claude Pinto MD Unavailable [phone] Gordy Rodriguez MD Unavailable Unavailable Encounter Details Date Type Department Care Team (Late st Contact Info) Description 11/28/2017 Abstract [facility] CONVERSION [address] [place] [address] , Generic MD Jenniffer Social History Tobacco [...] on filedocumented in this encounter Care Teams Unit Secy Relationship Specialty Start Date End Date Salima Donahue MD [address] [place] [address] PCP - General INTERNAL MEDICINE 12/10/17 Claude Pinto MD [address] [place] [address] [place] Compressor Assembler CARDIOVASCULAR DISEASE 12/10/17 09/27/18 Gordy Rodriguez MD [address] [place] [address] [place] Compressor Assembler INTERVENTIONAL CARDIOLOGY 09/24/18 documented as of this encounter
--- OUTSIDE RECORDS SUMMARY | 2025-06-28 16:47 | XMS_ITS | Clinical Summary ---
Author Organization [facility] Address [address] [place] [address] Care Team Providers Care Automotive Title Clerk Name Role Phone Salima Donahue MD Primary Care Provider [phone] Gordy Rodriguez MD Unavailable Unavailable Allergies Active [...] 20 mg by mouth daily. Active Umeclidinium [place] (INCRUSE ELLIPTA) 62.5 MCG/INH AEROSOL POWDER, BREATH ACTIVATED Inhale 1 puff into the lungs daily. Active alendronate 70 MG tablet Take 70 mg by mouth every 7 days. Take in the morning with a full glass of water, on an empty stomach, and do not take anything else by mouth or lie down for the next 30 min. Active vitamin D2, ergocalciferol, 01706 UNITS capsule Take 50,000 Units by mouth [...] Problem Noted Date Diagnosed Date COPD exacerbation 02/28/2019 CHF exacerbation 01/09/2019 PVD (peripheral vascular disease) 11/17/2018 Exertional dyspnea 10/20/2018 H/O: lung cancer 12/09/2017 Coronary artery disease invo lving [place] coronary artery of [place] heart without angina pectoris COPD (chronic obstructive pulmonary disease) Hypercholesterolemia S/P AAA repair Immunizations Immunization Administration [...] Additional history exists COVID-19 Vaccine ( season) 2025 Influenza Adult (#1) 2025 Hepatitis A Vaccines Aged Out No long er eligible based on patient's age to complete this topic Meningococcal B Vaccine Aged Out No l [...] CHOLESTEROL 112 MG/DL 03/01/2019 4:04 AM CDT [facility] Comment:DESIRABLE: <200 TRIGLYCERIDES 59 MG/DL 03/01/2019 4:04 AM CDT [facility] Comment:<150 NORMAL HDL 56 >49 MG/DL 03/01/2019 4:04 AM CDT [facility] LDL (CALCULATED) 44 MG/DL 03/01/20 4:04 AM CDT [facility] Comment:<100 OPTIMAL VLDL CALCULATION 12 MG/DL 03/01/20 4:04 AM CDT [facility] Comment:REFERENCE RANGE NOT ESTABLISHED CHOL/HDL RATIO 2.0 03/01/2019 4:04 AM CDT [facility] Comment:REFERENCE RANGE NOT ESTABLISHED LDL/HDL 0.8 03/01/2019 4:04 AM CDT [facility] Comment:REFERENCE RANGE NOT ESTABLISHED NON HDL CHOLESTEROL 56 MG/DL 03/01/2019 4:04 AM CDT [facility] Comment:REFERENCE RANGE NOT ESTABLISHED 03/01/2019 3:14 AM CDT Dino Frye DO LABORATORY Final Result Performing Organization Address City/State/[facility] Co de Phone Number [facility] [address] [place] [address], [id number] from Last 3 Months or Most Recently Relevant to Health Maintenance Insurance MEDICAID MEDICARE MEDICARE MEDICAID Advance Directives Documents on File Type Date Recorded Patient 2Nd Pressman Expl anation Advance Directives and Living Will 03/02/2019 10:16 AM short form poa for health care Advance Directives and Living Will 03/02/2019 9:23 AM POLST Power of Occupational Therapy Assistant 01/17/2019 7:32 AM Advance Directives and Living [...] 10:34 AM 01/13/2019 3:34 PM Care Teams Automotive Title Clerk Relationship Specialty Start Date End Date Salima Donahue MD [address] [place] [address] PCP - General INTERNAL MEDICINE 12/10/17 Gordy Rodriguez MD [address] [place] [address] [place] Image Editor INTERVENTIONAL CARDIOLOGY 09/24/18
--- OUTSIDE RECORDS SUMMARY | 2025-06-28 16:47 | XMS_ITS | Encounter Summary ---
Author Organization [facility] Address [address] [place] [address] Care Team Providers Care Contract Administrative Assistant Name Role Phone Salima Donahue MD Primary Care Provider [phone] Gordy Rodriguez MD Unavailable Unavailable Encounter Details Date Type Department Care Team (Late st Contact Info) Description 02/19/2019 Abstract SFL CONVERSION [address] [place] [address] , Generic Conversion, Social History Tobacco Use [...] Assessment Author Status Yes 01/09/2019 10:40 AM Mckayla Soliman RN Active * Because of a physical, mental, or emotional condition, do you have difficulty doing errands alone such as visiting a doctor's office or shopping? Answer Date of Assessment Author Status Yes 01/09/2019 10:40 AM Mckayla Soliman RN Active documented as of this encounter Mental Status * Because of a physical, mental, or emotional condition, do you have serious difficulty concentrating, remembering, or making decisions? Answer Entry Date Author Status No 01/09/2019 10:40 AM Mckayla Soliman RN Active documented in this encounter Plan of Treatment Not on file documented as of this encounter Visit Diagnoses Not on filedocumented in this encounter Care Teams Contract Administrative Assistant Relationship Specialty Start Date End Date Salima Donahue MD [address] [place] [phone] PCP - General INTERNAL MEDICINE 12/10/17 Gordy Rodriguez MD [address] [place] [address] [place] Is Manager INTERVENTIONAL CARDIOLOGY 09/24/18 documented as of this encounter
--- OUTSIDE RECORDS SUMMARY | 2025-06-28 16:47 | XMS_ITS | Clinical Summary ---
Author Organization [facility] Address [address] [facility] [place] [address] Care Team Providers Care Relocation Director Name Role Phone Salima Donahue MD Primary [...] Encounters Date Type Department Care Team Description 06/06/2025 External Device Data STL ABSTRACTION Provider, Abstract 05/30/2025 External Device Data STL ABSTRACTION Provider, Abstract 04/04/2025 External Device Data STL ABSTRACTION Provider, Abstract 03/28/2025 11:00 AM CDT Office Visit [facility] Oncology and Hematology - [facility] Uziel Bailey [address] [place] [phone] Dino Farfan MD Chronic anemia (Primary Dx) from Last 3 Months Family History Medical [...] 165.1 cm (5' 5) 07/31/2022 2:58 PM CASE MONITOR Body Mass Index 23.16 07/31/2022 2:58 PM CASE MONITOR Plan of Treatment Upcoming Encounters Date Type Department Care Team (Late st Contact Info) Description 09/28/2025 2:30 PM CASE MONITOR Office Visit [facility] Oncology and Hematology [facility] [address] [facility] [address] [place] [address] Dino Farfan MD [address] [facility] [address] [place] [address] Health Maintenance Due Date Last Done Comments DTAP/TDAP/TD VACCINES (1 - Tdap) 1970 PNEUMOCOCCAL VACCINE 50+ YEARS (1 of 2 - PCV) 06/16/19 70 BREAST CANCER SCREENING 1991 FIT-DNA Q 3 years 1996 FIT/FOBT Q 1 year 1996 Flex Sig/CT Colonography Q 5 years 1996 ZOSTER VACCINE (1 of 2) 2001 RSV VACCINE (60+ or ) (1 - Risk 60-74 years 1-dose series) 2011 OSTEOPOROSIS SCREENING 2016 INFLUENZA VACCINE (#1) 2025 COLORECTAL SCREENING 05/05/2032 05/05/2022 Colorectal Cancer Screening 05/05/2032 Insurance MEDICARE PART A AND B [facility] Care Teams Relocation Director Relationship Specialty Start Date End Date Salima Donahue MD [address] [place] [phone] PCP - General Internal Medicine 07/31/22
== END 2025-06-28 14:25 | disposition home or self-care (01) ==
LOC: CHSLAB 14:26
PROVIDERS: PCP Internal Medicine; Visit Provider Internal Medicine
DX: M79.89 Other specified soft tissue disorders (principal); E55.9 Vitamin D deficiency, unspecified
CPT/HCPCS: 36415; 82306; 85027; 93971

== ENCOUNTER 2025-07-02 14:43 | Emergency (ER) | payer MEDICARE, MEDICAID, SELFPAY ==
--- OUTSIDE RECORDS SUMMARY | 2013-03-23 04:59 | XMS_ITS | Continuity of Care Document ---
Author Organization [facility], TD Address [address] [place] [address] Phone Care Team Providers Care Web Content Developer Name Role Phone Faina ROGERS, Heidi Unavailable [...] Diagnoses Date Provider Providers Copied on Encounter [facility], [address] [place] [address], [id number] , tel:[phone] [facility] No Information 3 Faina Gordon. [address] [place] [address], [id number], [place]. tel:[phone] [facility], [address] [place] [address], [id number] , [place] tel:[phone] [facility] Papilledema, unspecifiedOpen angle with borderline glaucoma findingsOther dissociated deviation of eye movementsNystagmus, unspecifiedOpen angle with borderline glaucoma findings 3 Ruben Newell. [address] [place] [address], [address], [place], [place], [id number], [place]. tel:[phone] Referring Provider: Norman Gould, [address] [place] [address], [address] . tel:[phone] [facility], [address] [place] [address], [id number] , [place] tel:[phone] [facility] Macular puckering of retinaPapilledema, unspecifiedOther dissociated deviation of eye movements May-0 3 Ruben Newell. [address] [place] [address], [address] [facility], [place], [place], [id number], [place]. tel:[phone] [facility], [address] [place] [address], [id number] , [place] tel:[phone] [facility] Nystagmus, unspecifiedAnatomic al narrow angle borderline glaucomaLens replaced by other meansPapilledema, unspecifiedOther dissociated deviation of eye movementsMacular puckering of retinaSenile nuclear sclerosisEpilepsy, unspecifiedNystagmu s, unspecified Sep-2 2 Ruben Newell. [address] [place] [address], [place], [place], [id number], [place]. tel:[phone] Referring Provider: Reece Perez, [address] [place] [address], [place], [address] . tel:[phone] [facility], [address] [place] [address], [id number] , [place] tel:[phone] [facility] No Information 2 Ruben Newell. [address] [place] [address], [place], [place], [id number], [place]. tel:[phone] Referring Provider: Norman Gould, [address] [place] [address], [address] . tel:[phone] [facility], [address] [place] [address], [id number] , [place] tel:[phone] [facility] Papilledema, unspecifiedOther dissociated deviation of eye movements Nov-0 2 Ruben Newell. [address] [place] [address], [address] [facility], [place], [place], [id number], [place]. tel:[phone] Referring Provider: Reece Perez, [address] [place] [address] [address] [facility], [place], [place], [address] [place] [address] . tel:[phone] [facility], [address] [place] [address], [address] [place] [address] , tel: [phone] [facility] No Information 2 Lee Norman. [address] [place] [address], [address] [place] [address], . tel:[phone] Referring Provider: Norman Gould, [address] [place] [address], [address] [place] [address] . tel:[phone] [facility], [address] [place] [address], [address] [place] [address] , tel: [phone] [facility] No Information 2 Knupp Reece. [address] [place] [address], [address], [address] [place] [address], . tel:[phone] Referring Provider: Norman Gould, [address] [place] [address], [address] [place] [address] . tel:[phone] [facility], [address] [place] [address], [address] [place] [address] , tel: [phone] [facility] Papilledema, unspecifiedCATOther dissociated deviation of eye movementsEpilepsy, unspecified Dec- 1 Knupp Reece. [address] [place] [address], [address], [place], [address] [place] [address], . tel:[phone] Referring Provider: Norman Mosesatia Bryanna, [address] [place] [address], [address] [place] [address] . tel:[phone] [facility], [address] [place] [address], [address] [place] [address] , tel: [phone] [facility] Macular puckering of retinaPapilledema, unspecifiedSenile nuclear sclerosisSenile nuclear sclerosisOther dissociated deviation of eye movementsOther dissociated deviation of eye movements Dec- 1 Knupp Reece. [address] [place] [address], [address] [facility], [place], [place], [id number], [place]. tel:[phone] [facility], [address] [place] [address], [id number] , [place] tel:[phone] [facility] Macular puckering of retinaPapilledema, unspecifiedPapilled demetrio, unspecifiedMacular puckering of retina Oct-2 1 Ruben Newell. [address] [place] [address], [address], [place], [place], [id number], [place]. tel:[phone] Referring Provider: Norman Gould, [address] [place] [address], [address] . tel:[phone] [facility], [address] [place] [address], [id number] , [place] tel:[phone] [facility] No Information Jun-2 1 Ruben Newell. [address] [place] [address], [place] [address], [place], [place], [id number], [place]. [phone] Referring Provider: Norman Gould, [address] [place] [address], [address] . tel:[phone] [facility], [address] [place] [address], [id number] , [place] tel:[phone] [facility] No Information Jun- 1 Lee Austin. [address] [place] [address], [id number], [place]. tel:[phone] Referring Provider: Norman Gould, [address] [place] [address], [address] . tel:[phone] [facility], [address] [place] [address], [id number] , [place] tel: [phone] [facility] No Information Apr- 1 Ruben Newell. [address] [place] [address], [address], [place], [place], [id number], [place]. tel:[phone] Referring Provider: Reece Perez, [address], [place], [address] . tel:[phone] Family History Family Member Type Diagnosis Age [...] Disease Payers Payer name Insurance type Covered alliance party ID Authoriza tion(s) [facility] [id number] Social History Type Description Quantity Date Captured Comments Sex Female Smoking Status No Information Chief Complaint And Reason For Visit No Information Reason For Referral Reason For Referral No Information History Of Present Illness Encounter Date Complaint History Of Prese nt Illness No Information Functional Status Date Functional Assessmen t No Information Instructions Date Instruction Additional Infor alex Papilledema, unspeci fied - Addendum:1. Previous episodes [...] weeks I will refer to university based neuro-hat band attacher for further evaluation and care. She will remain under care of Dr. Kerri Lozano MD as well (local neurologist). Related to Papilledema, unspecified - Return in 6 months with ADA [...] advised pt and family that follow-up with neuro-hat band attacher at a [place] setting is necessary per her new development with nystagmus and change in measurements found at todays exam. This will be arranged by our office. Dr. Miranda will be leaving the area permanently soon so patient will continue the new MD as needed. Educational materials provided:none needed. Related to Papilledema, unspecified - PRN Related to Papil ledema, unspecified - Repeat visual field in 6 month s OU. Related to Central 30-2 test performed. Papilledema, unspeci fied Skew deviation Related to Skew deviation - Return in 01/21/13 with KARINA for Ref T & VF then KARINA to ck pupils, then Dil and OCT (ON). Related to Skew deviation Papilledema, unspeci fied - Addendum:Follow up with Neurology and PCP as per their instructions, previously. Related to Papilledema, unspecified - Return in 1 year w [facility] KARINA for Ref T & VF then [...] papilledema. Letter Dr. Callie MD [facility] Neurology, Dr. Godfrey MD PCP done. Related to Papilledema, unspecified - Return in Return i n 1 year with KARINA for Ref T & D. Related to Papilledema, unspecified - Repeat visual field in 1 year OU. Related to Central 30-2 test performed. - Repeat visual field in 6 month [...] Hebert Lozano & Dr Rajan ([facility] Neuro), Dr. Donahue, done Related [...] Hebert Lozano & Dr Rajan ([facility] Neuro), Dr. Donahue, done Related to CAT - 3 mo c KARINA/VF and OCT KARINA will dilate Related to CAT Papilledema, Recurre nt since 05/12/11. OCT demonstrates increased thcikness OU (OD 96->107, OS99->209). Decreased vision OU (20/25->20/30 OD 20/25->20/50 OS) Recurrence of diplopia since 05/12 (2LHT) pc/IOL OU ERM OS - 1. Pt. to be admitted at [facility]. for recurrence of papilledema, diplopia (LHT) in the presence of encephalopahty of unknown etiology. Original improved after high dose steroids. Will be done thru a direct admit to Dr. Musa (Neurology at [facility]). Spoke with [facility] Resident employment consultant who will write the orders (pager [phone]) Pt. given order for admission under Dr. Musa.LETTER TO CALLIE, done will be faxed as soon as typed 07/09. Related to Papilledema, unspecified - 4-6 weeks for HVF, Refract, KARINA to dilate Related to Papilledema, unspecified Assessments Type Assessment Date No Information Patient Care Teams Name Effective Dates (start - stop) Status Members No Information
[2025-07-02 14:43] VITALS: BP 114/82; PULSE 84; RESP 18; TEMP 36.5; O2SAT 97
--- OUTSIDE RECORDS SUMMARY | 2025-07-02 14:47 | XMS_ITS | Clinical Summary ---
Author Organization [facility] Address [address] [place] [address] Care Team Providers Care Cam Specialist Name Role Phone Salima Donahue MD Primary Care Provider [phone] Gordy Rodriguez MD Unavailable Unavailable Allergies Active [...] 20 mg by mouth daily. Active Umeclidinium [place] (INCRUSE ELLIPTA) 62.5 MCG/INH AEROSOL POWDER, BREATH ACTIVATED Inhale 1 puff into the lungs daily. Active alendronate 70 MG tablet Take 70 mg by mouth every 7 days. Take in the morning with a full glass of water, on an empty stomach, and do not take anything else by mouth or lie down for the next 30 min. Active vitamin D2, ergocalciferol, 37350 UNITS capsule Take 50,000 Units by mouth [...] cancer 12/09/2017 Coronary artery disease invo lving [place] coronary artery of [place] heart without angina pectoris COPD (chronic obstructive [...] CHOLESTEROL 112 MG/DL 03/01/2019 4:04 AM CDT [facility] Comment:DESIRABLE: <200 TRIGLYCERIDES 59 MG/DL 03/01/2019 4:04 AM CDT [facility] Comment:<150 NORMAL HDL 56 >49 MG/DL 03/01/2019 4:04 AM CDT [facility] LDL (CALCULATED) 44 MG/DL 03/01/20 4:04 AM CDT [facility] Comment:<100 OPTIMAL VLDL CALCULATION 12 MG/DL 03/01/20 4:04 AM CDT [facility] Comment:REFERENCE RANGE NOT ESTABLISHED CHOL/HDL RATIO 2.0 03/01/2019 4:04 AM CDT [facility] Comment:REFERENCE RANGE NOT ESTABLISHED LDL/HDL 0.8 03/01/2019 4:04 AM CDT [facility] Comment:REFERENCE RANGE NOT ESTABLISHED NON HDL CHOLESTEROL 56 MG/DL 03/01/2019 4:04 AM CDT [facility] Comment:REFERENCE RANGE NOT ESTABLISHED 03/01/2019 3:14 AM CDT Dino Frye DO LABORATORY Final Result Performing Organization Address City/State/[facility] Co de Phone Number [facility] [address] [place] [address], [phone] from Last 3 Months or Most Recently Relevant to Health Maintenance Insurance MEDICAID MEDICARE MEDICARE MEDICAID Advance Directives Documents on File Type Date Recorded Patient Co Founder And Chief Strategy Officer Expl anation Advance Directives and Living Will 03/02/2019 10:16 AM short form poa for health care Advance Directives and Living Will 03/02/2019 9:23 AM POLST Power of Jigman 01/17/2019 7:32 AM Advance Directives and Living [...] 10:34 AM 01/13/2019 3:34 PM Care Teams Cam Specialist Relationship Specialty Start Date End Date Salima Donahue MD [address] [place] [address] PCP - General INTERNAL MEDICINE 12/10/17 Gordy Rodriguez MD [address] [place] [address] [place] Control Room Tender INTERVENTIONAL CARDIOLOGY 09/24/18
--- OUTSIDE RECORDS SUMMARY | 2025-07-02 14:47 | XMS_ITS | Clinical Summary ---
Author Organization [facility] Address [address] [place] [address] Care Team Providers Care Tube Sizer Operator Name Role Phone Salima Donahue MD Primary [...] 165.1 cm (5' 5) 07/31/2022 2:58 PM STAVE CUTTER Body Mass Index 23.16 07/31/2022 2:58 PM STAVE CUTTER Plan of Treatment Upcoming Encounters Date Type Department Care Team (Late st Contact Info) Description 09/28/2025 2:30 PM STAVE CUTTER Office Visit [facility] Oncology and Hematology - [place] [address] [facility] [address] [place] [address] Dino Farfan MD [address] [facility] [address] [place] [address] Health Maintenance Due Date Last [...] 05/05/2032 Insurance MEDICARE PART A AND B [facility] Care Teams Tube Sizer Operator Relationship Specialty Start Date End Date Salima Donahue MD [address] [place] [phone] PCP - General Internal Medicine 07/31/22
--- OUTSIDE RECORDS SUMMARY | 2025-07-02 14:47 | XMS_ITS | Encounter Summary ---
Author Organization [facility] Address [address] [place] [address] Care Team Providers Care Airplane Patroller Name Role Phone Salima Donahue MD Primary Care Provider [phone] Claude Pinto MD Unavailable [phone] Gordy Rodriguez MD Unavailable Unavailable Encounter Details Date Type Department Care Team (Late st Contact Info) Description 11/28/2017 Abstract [facility]JS CONVERSION [address] [place] [address] , Generic MD Jenniffer Social History Tobacco [...] on filedocumented in this encounter Care Teams Airplane Patroller Relationship Specialty Start Date End Date Salima Donahue MD [address] [place] [address] PCP - General INTERNAL MEDICINE 12/10/17 Claude Pinto MD [address] [place] [address] [place] Floor Broker CARDIOVASCULAR DISEASE 12/10/17 09/27/18 Gordy Rodriguez MD [address] [place] [address] [place] Floor Broker INTERVENTIONAL CARDIOLOGY 09/24/18 documented as of this encounter
--- OUTSIDE RECORDS SUMMARY | 2025-07-02 14:47 | XMS_ITS | Encounter Summary ---
Author Organization [facility] Address [address] [place] [address] Care Team Providers Care National Service Officer Name Role Phone Salima Donahue MD Primary Care Provider [phone] Gordy Rodriguez MD Unavailable Unavailable Encounter Details Date Type Department Care Team (Late st Contact Info) Description 02/19/2019 Abstract SFL CONVERSION [address] [place] [address] , Generic Conversion, Social History Tobacco Use [...] on filedocumented in this encounter Care Teams National Service Officer Relationship Specialty Start Date End Date Salima Donahue MD [address] [place] [phone] PCP - General INTERNAL MEDICINE 12/10/17 Gordy Rodriguez MD [address] [place] [address] [place] Checker Loader INTERVENTIONAL CARDIOLOGY 09/24/18 documented as of this encounter
--- NOTE | 2025-07-02 14:54 | ED.GENADULT ---
HPI - General Adult General Chief complaint: Extremity Injury, Lower Stated complaint: bruised leg Time Seen by Provider: 07/02/25 14:51 History of Present Illness HPI narrative: Teresa is a 75F with a PMH of lung cancer, PE, CKD, CHF, and COPD that presented to the ED via EMS from the [facility] via EMS. She hit her leg on a wheelchair and has had painful swelling since. No other injuries reported. Related Data Home Medications ?Medication ?Instructions ?Recorded ?Confirmed ?Last Taken ?Type acetaminophen 500 mg capsule 500 mg PO Q6H PRN Pain (Scale 11/24/19 05/23/25 07/01/23 14:15 History Score 1-3) aspirin 81 mg tablet,delayed 81 mg PO DAILY 11/24/19 05/23/25 07/01/24 History release (Adult Aspirin Regimen) atorvastatin 40 mg tablet 40 mg PO HS 11/24/19 05/23/25 07/01/24 History escitalopram oxalate 20 mg tablet 10 mg PO DAILY 11/24/19 05/23/25 07/01/24 History levetiracetam 250 mg tablet 250 mg PO Q12H 11/24/19 05/23/25 07/01/24 History (Keppra) melatonin 5 mg capsule 5 mg PO HS 11/24/19 05/23/25 06/30/24 History potassium chloride 20 mEq 30 meq PO BID 11/24/19 05/23/25 07/01/24 History tablet,extended release multivitamin with folic acid 400 1 tablet PO DAILY 03/10/22 05/23/25 07/01/24 History mcg tablet (Daily-Annie (with folic acid)) alprazolam 0.5 mg tablet 0.5 mg PO Q8-12H PRN Anxiety 06/29/23 05/23/25 06/17/24 History ferrous sulfate 325 mg (65 mg 325 mg PO TID 12/02/23 05/23/25 07/01/24 History iron) tablet Allergies Allergy/AdvReac Type Severity Reaction Status Date / Time latex Allergy Unknown Unknown Verified 07/02/25 14:53 lorazepam Allergy Unknown Unknown Verified 07/02/25 14:53 adhesive tape AdvReac Rash Verified 07/02/25 14:53 nickel AdvReac Rash Verified 07/02/25 14:53 Review of Systems Review of Systems: All systems reviewed & are unremarkable except as noted in HPI and below [facility] Past Medical History Medical History Chronic respiratory failure with hypoxia, on home oxygen therapy 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 Chronic obstructive pulmonary disease Chronic kidney disease, stage 3 Pulmonary embolism (11/2021) Small cell lung cancer Status post chemoradiotherapy. Dyslipidemia Diastolic dysfunction Surgical History Surgical History History of incisional hernia repair History of inguinal hernia repair History of heart artery stent History of cardiac catheterization History of left nephrectomy At age 3, done for unclear reasons. History of abdominal aortic aneurysm repair Family History Family History Sibling Family history of arthritis Lung transplant status, bilateral COPD (chronic obstructive pulmonary disease) Colon cancer Father Melanoma Mother No problems noted. Social History Social History Social History: [id number]: Isabela Ponce, friend. Code status: Full code. Smoking packs per day: 1 Smoking cigarettes per day: 20.0 Years smoked: 36 Smoking pack-years: 36.00 Smoking status: Former smoker Tobacco type: cigarettes Second hand tobacco smoke exposure: No Smoking end date: 09/14/05 Alcohol intake: former Alcohol use details: No alcohol since 2005. Substance use: current Substance use type: prescription drug Lack of Transportation: No Lack of Food: Never True Current Housing: I Have Housing Concerned About Future Housing: No Difficulty Paying Gas/Electric Bills: No Difficulty Paying for Meds: No Currently Unemployed: No Education: High School Diploma/GED Difficulty w/ Childcare or Family Care: No Additional living arrangements comments: Lives in assisted living. Wheelchair-bound due to right-sided deficits from prior CVA. Spiritual care concerns: No Exam Const: General: cooperative, healthy appearing, comfortable, no acute distress, well developed, alert, awake and Physically active Orientation/consciousness: oriented to person, oriented to place and oriented to time HENMT: Head: normal to inspection, normocephalic and atraumatic Ears: hearing grossly normal bilaterally and external ears normal Face/Nose/Sinus: Normal external nose present Eyes: General: appearance normal, both eyes and all related structures Periorbital: periorbital findings normal Sclera: sclerae normal Pupils: Equal, round and reactive pupils present Neck: Neck: normal visual inspection Chest: Chest palpation & inspection: normal inspection of the chest Resp: Effort & Inspection: normal respiratory effort, able to speak in complete sentences and no respiratory distress Other: on supplemental oxygen Cardio: Jugular venous distension: no JVD Skin: General skin exam: normal color and no rashes or lesions noted Neuro: General: oriented to person, oriented to place and oriented to time Cranial nerves: Yes Equal, round and reactive pupils present Extrem: General: normal to inspection Other: hematoma on RLE Course Course Emergency Course: Attempted to drain hematoma but blood had congealed. Hematoma placed under a compression bandage. Vital Signs Vital signs: Vital Signs Temperature 97.7 F 07/02/25 14:43 Pulse Rate 84 07/02/25 14:43 Respiratory Rate 18 07/02/25 14:43 Blood Pressure 114/82 07/02/25 14:43 Pulse Oximetry 97 07/02/25 14:43 Oxygen Delivery Nasal Cannula 07/02/25 14:43 Oxygen Flow Rate 2 07/02/25 14:43 Temperature 97.8 F 07/02/25 16:45 Pulse Rate 66 07/02/25 16:45 Respiratory Rate 16 07/02/25 16:45 Blood Pressure 130/65 07/02/25 16:45 Pulse Oximetry 99 07/02/25 16:45 Oxygen Delivery Nasal Cannula 07/02/25 16:45 Oxygen Flow Rate 2 07/02/25 16:45 Medical Decision Making Vital Signs Vital Signs: Vital Signs Temperature 97.7 F 07/02/25 14:43 Pulse Rate 84 07/02/25 14:43 Respiratory Rate 18 07/02/25 14:43 Blood Pressure 114/82 07/02/25 14:43 Pulse Oximetry 97 07/02/25 14:43 Oxygen Delivery Nasal Cannula 07/02/25 14:43 Oxygen Flow Rate 2 07/02/25 14:43 Temperature 97.8 F 07/02/25 16:45 Pulse Rate 66 07/02/25 16:45 Respiratory Rate 16 07/02/25 16:45 Blood Pressure 130/65 07/02/25 16:45 Pulse Oximetry 99 07/02/25 16:45 Oxygen Delivery Nasal Cannula 07/02/25 16:45 Oxygen Flow Rate 2 07/02/25 16:45 Discharge Plan Discharge Clinical Impression: Hematoma Patient Disposition: Home Condition: Stable Instructions: Hematoma (ED) Patient Language: Citizen Of [place] Prescriptions: No Action multivitamin with folic acid [Daily-Annie (with folic acid)] 400 mcg tablet 1 tablet PO DAILY ferrous sulfate 325 mg (65 mg iron) tablet 325 mg PO TID potassium chloride 20 mEq tablet extended release 30 meq PO BID melatonin 5 mg capsule 5 mg PO HS levetiracetam [Keppra] 250 mg tablet 250 mg PO Q12H escitalopram oxalate 20 mg tablet 10 mg PO DAILY atorvastatin 40 mg tablet 40 mg PO HS aspirin [Adult Aspirin Regimen] 81 mg tablet,delayed release (DR/EC) 81 mg PO DAILY acetaminophen 500 mg capsule 500 mg PO Q6H PRN (Reason: Pain (Scale Score 1-3)) (DME) comp.stocking,knee,long,medium Misc See Rx Instructions .Route Qty: 12 0RF Rx Instructions: As directed furosemide [Lasix] 40 mg tablet 40 mg PO BID Qty: 60 0RF fluticasone propion-salmeterol [Advair HFA] 230-21 mcg/actuation HFA aerosol inhaler See Rx Instructions .ROUTE .COMPLEX Qty: 12 6RF Dose Instruction: Inhale 2 puffs by mouth twice daily. Rx Instructions: Inhale 2 puffs by mouth twice daily. albuterol sulfate 90 mcg/actuation HFA aerosol inhaler 2 puff inhalation Q6H PRN (Reason: shortness of breath or wheezing) Qty: 8.5 3RF Rx Instructions: Use with spacer. alprazolam 0.5 mg tablet 0.5 mg PO Q8-12H PRN (Reason: Anxiety) pantoprazole 40 mg Tablet,Delayed Release (Dr/Ec) 40 mg PO QAM Qty: 30 0RF Incruse Ellipta 62.5 mcg/actuation blister with device See Rx Instructions .ROUTE .COMPLEX Qty: 30 6RF Dose Instruction: Inhale 1 puff by mouth at the same time daily. Rx Instructions: Inhale 1 puff by mouth at the same time daily. Follow-up/Referrals: Salima Donahue MD [Primary Care Provider, Internal Medicine]
[2025-07-02] MEDS: MORPHINE SULFATE (*CRX) 4 MG/ML INJ 2 MG IM (15:08)
[2025-07-02] MEDS: LIDOCAINE, EPINEPHRINE, TETRACAINE VISCOUS SOLN 3 ML TOPICAL (15:09)
[2025-07-02 16:45] VITALS: BP 130/65; PULSE 66; RESP 16; TEMP 36.6; O2SAT 99
== END 2025-07-02 18:35 | disposition home or self-care (01) ==
PROVIDERS: Emergency Provider Family Medicine; PCP Internal Medicine
DX: S80.11XA Contusion of right lower leg, initial encounter (principal); I13.0 Hypertensive heart and chronic kidney disease with heart failure and stage 1 through stage 4 chronic kidney disease, or unspecified chronic kidney disease; I50.9 Heart failure, unspecified; N18.30 Chronic kidney disease, stage 3 unspecified; J44.9 Chronic obstructive pulmonary disease, unspecified; Z87.891 Personal history of nicotine dependence; W22.8XXA Striking against or struck by other objects, initial encounter
CPT/HCPCS: 96372; 99283; J2270

== ENCOUNTER 2025-07-18 15:47 | Emergency (ER) | payer MEDICARE, MEDICAID, SELFPAY ==
--- OUTSIDE RECORDS SUMMARY | 2013-03-23 03:59 | XMS_ITS | Continuity of Care Document ---
Author Organization [facility], L TD Address [address] [place] [address] Phone Care Team Providers Care Net Developer Contract Name Role Phone Faina ROGERS, Heidi Unavailable [...] Diagnoses Date Provider Providers Copied on Encounter [facility], [address] [place] [address], [id number] , tel:[phone] [facility] No Information 3 Faina Gordon. [address] [place] [address], [id number], [place]. tel:[phone] [facility], [address] [place] [address], [id number] , [place] tel:[phone] [facility] Papilledema, unspecifiedOpen angle with borderline glaucoma findingsOther dissociated deviation of eye movementsNystagmus, unspecifiedOpen angle with borderline glaucoma findings 3 Ruben Newell. [address] [place] [address], [address], [place], [place], [id number], [place]. tel:[phone] Referring Provider: Norman Gould, [address] [place] [address], [address] . tel:[phone] [facility], [address] [place] [address], [id number] , [place] tel:[phone] [facility] Macular puckering of retinaPapilledema, unspecifiedOther dissociated deviation of eye movements May-0 3 Ruben Newell. [address] [place] [address], [address] [facility], [place], [place], [id number], [place]. tel:[phone] [facility], [address] [place] [address], [id number] , [place] tel:[phone] [facility] Nystagmus, unspecifiedAnatomic al narrow angle borderline glaucomaLens replaced by other meansPapilledema, unspecifiedOther dissociated deviation of eye movementsMacular puckering of retinaSenile nuclear sclerosisEpilepsy, unspecifiedNystagmu s, unspecified Sep-2 2 Ruben Newell. [address] [place] [address], [place], [place], [id number], [place]. tel:[phone] Referring Provider: Reece Perez, [address] [place] [address], [place], [address] . tel:[phone] [facility], [address] [place] [address], [id number] , [place] tel:[phone] [facility] No Information 2 Ruben Newell. [address] [place] [address], [place], [place], [id number], [place]. tel:[phone] Referring Provider: Norman Gould, [address] [place] [address], [address] . tel:[phone] [facility], [address] [place] [address], [id number] , [place] tel:[phone] [facility] Papilledema, unspecifiedOther dissociated deviation of eye movements Nov-0 2 Ruben Newell. [address] [place] [address], [address] [facility], [place], [place], [id number], [place]. tel:[phone] Referring Provider: Reece Perez, [address] [place] [address] [address] [facility], [place], [address] [place] [address] . tel:[phone] [facility], [address] [place] [address], [address] [place] [address] , tel: [phone] [facility] No Information 2 Lee Norman. [address] [place] [address], [address] [place] [address], . tel:[phone] Referring Provider: Norman Gould, [address] [place] [address], [address] [place] [address] . tel:[phone] [facility], [address] [place] [address], [address] [place] [address] , tel: [phone] [facility] No Information 2 Knupp Reece. [address] [place] [address], [address], [address] [place] [address], . tel:[phone] Referring Provider: Norman Gould, [address] [place] [address], [address] [place] [address] . tel:[phone] [facility], [address] [place] [address], [address] [place] [address] , tel: [phone] [facility] Papilledema, unspecifiedCATOther dissociated deviation of eye movementsEpilepsy, unspecified Dec- 1 Knupp Reece. [address] [place] [address], [address], [place], [address] [place] [address], . tel:[phone] Referring Provider: Norman Mosesatia Bryanna, [address] [place] [address], [address] [place] [address] . tel:[phone] [facility], [address] [place] [address], [address] [place] [address] , tel: [phone] [facility] Macular puckering of retinaPapilledema, unspecifiedSenile nuclear sclerosisSenile nuclear sclerosisOther dissociated deviation of eye movementsOther dissociated deviation of eye movements Dec- 1 Knupp Reece. [address] [place] [address], [address] [facility], [place], [place], [id number], [place]. tel:[phone] [facility], [address] [place] [address], [id number] , [place] tel:[phone] [facility] Macular puckering of retinaPapilledema, unspecifiedPapilled demetrio, unspecifiedMacular puckering of retina Oct-2 1 Ruben [place]ell. [address] [place] [address], [address], [place], [place], [id number], [place]. tel:[phone] Referring Provider: Norman Gould, [address] [place] [address], [address] . tel:[phone] [facility], [address] [place] [address], [id number] , [place] tel:[phone] [facility] No Information Jun-2 1 Ruben [place]ell. [address] [place] [address], [place] [address], [place], [place], [id number], [place]. [phone] Referring Provider: Norman Gould, [address] [place] [address], [id number] . tel:[phone] [facility], [address] [place] [address], [id number] , [place] tel:[phone] [facility] No Information Jun- 1 Lee Austin. [address] [place] [address], [id number], [place]. tel:[phone] Referring Provider: Norman Gould, [address] [place] [address], [id number] . tel:[phone] [facility], [address] [place] [address], [id number] , [place] tel:[phone] [facility] No Information Apr- 1 Ruben [place]ell. [address] [place] [address], [address], [place], [place], [id number], [place]. tel:[phone] Referring Provider: Reece Perez, [address] [facility] [address], [place], [address] . tel:[phone] Family History Family Member Type Diagnosis Age [...] Insurance type Covered republican ID Authoriza tion(s) [place] Public [facility] [id number] Social History Type Description Quantity Date Captured [...] weeks I will refer to university based neuro-telesales representative for further evaluation and care. She will [...] advised pt and family that follow-up with neuro-telesales representative at a [facility] [place] setting is necessary per her new development [...] from previous papilledema. Letter Dr. Callie MD [facility] Neurology, Dr. Godfrey MD PCP [...] Letter Dr. Hebert Lozano & Dr Rajan ([facility] Neuro), Dr. Donahue, done Related [...] Letter Dr. Hebert Lozano & Dr Rajan ([facility] Neuro), Dr. Donahue, done Related to CAT - 4-6 weeks for HVF, Refract, KARINA to dilate Related to Papilledema, unspecified Papilledema, Recurre nt since 05/12/11. OCT demonstrates increased thcikness OU (OD 96->107, OS99->209). Decreased vision OU (20/25->20/30 OD 20/25->20/50 OS) Recurrence of diplopia since 05/12 (2LHT) pc/IOL OU ERM OS - 1. Pt. to be admitted at [facility]. for recurrence of papilledema, diplopia (LHT) in the presence of encephalopahty of unknown etiology. Original improved after high dose steroids. Will be done thru a direct admit to Dr. Musa (Neurology at [facility]). Spoke with LEIGH Resident network operations center engineer who will write the orders (pager [phone]) Pt. given order for admission under Dr. Musa.LETTER TO CALLIE, done will be faxed as soon as typed 07/09. Related to Papilledema, unspecified Assessments Type Assessment Date No Information Patient Care Teams Name Effective Dates (start - stop) Status Members No Information
--- OUTSIDE RECORDS SUMMARY | 2013-03-23 03:59 | XMS_ITS | Continuity of Care Document ---
Author Organization [facility], TD Address [address] [place] [address] Phone Care Team Providers Care Insulation Foreman Name Role Phone Faina ROGERS, Heidi Unavailable Unavailable Allergies, Adverse Reactions, Alerts Substance Reaction Status Criticality acyclovir Unknown Active No Information Medications Medication Instructions Dosage Effective Dates (start - stop) Status Comments ALPRAZOLAM (unknown strength) Not Available - Active CITALOPRAM HBR (unknown strength) Not Available - Active ALLOPURINOL (unknown strength) Not Available - Active VITAMINS (unknown strength) Not Available - Active XANAX [...] Diagnoses Date Provider Providers Copied on Encounter [facility], [address] [place] [address], [id number] , tel:[phone] [facility] No Information 3 Faina Gordon. [address] [place] [address], [id number], [place]. tel:[phone] [facility], [address] [place] [address], [id number] , [place] tel:[phone] [facility] Papilledema, unspecifiedOpen angle with borderline glaucoma findingsOther dissociated deviation of eye movementsNystagmus, unspecifiedOpen angle with borderline glaucoma findings 3 Ruben [place]. [address] [place] [address], [address], [place], [place], [id number], [place]. tel:[phone] Referring Provider: Norman Gould, [address] [place] [address], [address] . tel:[phone] [facility], [address] [place] [address], [id number] , [place] tel:[phone] [facility] Macular puckering of retinaPapilledema, unspecifiedOther dissociated deviation of eye movements May-0 3 Ruben [place]ell. [address] [place] [address], [address] [facility], [place], [place], [id number], [place]. tel:[phone] [facility], [address] [place] [address], [id number] , [place] tel:[phone] [facility] Nystagmus, unspecifiedAnatomic al narrow angle borderline glaucomaLens replaced by other meansPapilledema, unspecifiedOther dissociated deviation of eye movementsMacular puckering of retinaSenile nuclear sclerosisEpilepsy, unspecifiedNystagmu s, unspecified Sep-2 2 Ruben Newell. [address] [place] [address], [place], [place], [id number], [place]. tel:[phone] Referring Provider: Reece Perez, [address] [place] [address], [place], [address] . tel:[phone] [facility], [address] [place] [address], [id number] , [place] tel:[phone] [facility] No Information 2 Ruben [place]ell. [address] [place] [address], [place], [place], [id number], [place]. tel:[phone] Referring Provider: Norman Gould, [address] [place] [address], [id number] . tel:[phone] [facility], [address] [place] [address], [id number] , [place] tel:[phone] [facility] Papilledema, unspecifiedOther dissociated deviation of eye movements Nov-0 2 Ruben Newell. [address] [place] [address], [address] [facility], [place], [place], [id number], [place]. tel:[phone] Referring Provider: Reece Perez, [address] [place] [address] [address] [facility], [place], [place], [address] [place] [address] . tel:[phone] [facility], [address] [place] [address], [address] [place] [address] , tel: [phone] [facility] No Information 2 Lee Norman. [address] [place] [address], [address] [place] [address], . tel:[phone] Referring Provider: Norman Gould, [address] [place] [address], [address] [place] [address] . tel:[phone] [facility], [address] [place] [address], [address] [place] [address] , tel: [phone] [facility] No Information 2 Knupp Reece. [address] [place] [address], [address], [address] [place] [address], . tel:[phone] Referring Provider: Norman Gould, [address] [place] [address], [address] [place] [address] . tel:[phone] [facility], [address] [place] [address], [address] [place] [address] , tel: [phone] [facility] Papilledema, unspecifiedCATOther dissociated deviation of eye movementsEpilepsy, unspecified Dec- 1 Knupp Reece. [address] [place] [address], [address], [place], [address] [place] [address], . tel:[phone] Referring Provider: Norman Mosesatia Bryanna, [address] [place] [address], [address] [place] [address] . tel:[phone] [facility], [address] [place] [address], [address] [place] [address] , tel: [phone] [facility] Macular puckering of retinaPapilledema, unspecifiedSenile nuclear sclerosisSenile nuclear sclerosisOther dissociated deviation of eye movementsOther dissociated deviation of eye movements Dec- 1 Knupp Reece. [address] [place] [address], [address] [facility], [place], [place], [id number], [place]. tel:[phone] [facility], [address] [place] [address], [id number] , [place] tel:[phone] [facility] Macular puckering of retinaPapilledema, unspecifiedPapilled demetrio, unspecifiedMacular puckering of retina Oct-2 1 Ruben [place]. [address] [place] [address], [address], [place], [place], [id number], [place]. tel:[phone] Referring Provider: Norman Gould, [address] [place] [address], [id number] . tel:[phone] [facility], [address] [place] [address], [id number] , [place] tel:[phone] [facility] No Information Jun-2 1 Ruben [place]. [address] [place] [address], [place] [address], [place], [id number], [place]. [phone] Referring Provider: Norman Gould, [address] [place] [address], [id number] . tel:[phone] [facility], [address] [place] [address], [id number] , [place] tel:[phone] [facility] No Information Jun- 1 Lee Austin. [address] [place] [address], [id number], [place]. tel:[phone] Referring Provider: Norman Gould, [address] [place] [address], [id number] . tel:[phone] [facility], [address] [place] [address], [id number] , [place] tel:[phone] [facility] No Information Apr- 1 Ruben [place]. [address] [place] [address], [address], [place], [place], [id number], [place]. tel:[phone] Referring Provider: Reece Perez, [address] [facility] [address], [place], [address] . tel:[phone] Family History Family Member Type Diagnosis Age [...] Disorders Payers Payer name Insurance type Covered constitution party ID Authoriza tion(s) [place] Public [facility] [id number] Social History Type Description Quantity Date Captured [...] dilate andOCT disc, Related to Papilledema, unspecified - Repeat visual field in 6 month s OU. Related to Central 30-2 test performed. Papilledema, unspeci fied - Addendum:1. Previous episodes [...] weeks I will refer to university based neuro-residential living assistant for further evaluation and care. She will remain under care of Dr. Kerri Lozano MD as well (local neurologist). Related to Papilledema, unspecified Papilledema, unspeci fied . Condition: stable. [...] advised pt and family that follow-up with neuro-residential living assistant at a [facility] [place] setting is necessary per her new development with nystagmus and change in measurements found at todays exam. This will be arranged by our office. Dr. Miranda will be leaving the area permanently soon so patient will continue the new MD as needed. Educational materials provided:none needed. Related to Papilledema, unspecified - PRN Related to Papil ledema, unspecified Papilledema, unspeci fied Skew deviation Related to Skew deviation - Return in 01/21/13 with KARINA for Ref T & VF then KARINA to ck pupils, then Dil and OCT (ON). Related to Skew deviation - Repeat visual field in 1 year OU. Related to Central 30-2 test performed. - Return in Return i n 1 year with KARINA for Ref T & D. Related to Papilledema, unspecified - Return in 1 year w ith KARINA for Ref T & VF then Dil and OCT (ON). Related to Papilledema, unspecified Papilledema, unspeci fied - Addendum:Follow up with Neurology and PCP as per their instructions, previously. Related to Papilledema, unspecified Papilledema, unspeci fied [...] from previous papilledema. Letter Dr. Callie MD [facility] Neurology, Dr. Godfrey MD PCP done. Related to Papilledema, unspecified FU bilat Papilledema skew dev 2ndary to ? encephalopathy: VF, (no progression): OD full OS NFL Def s/I with nasal step S/I, no change 08-24. Skew Dev resolved @ 08/14/11 exam. [...] Letter Dr. Hebert Lozano & Dr Rajan ([facility] Neuro), Dr. Donahue, done Related to Papilledema, unspecified - 6 m c KARINA/HVF, IOP check, KARINA to dilate then OCT Related to Papilledema, unspecified - Repeat visual field in 6 month s OU. Related to Central 30-2 test performed. FU bilat Papilledema skew dev 2ndary to [...] Letter Dr. Hebert Lozano & Dr Rajan ([facility] Neuro), Dr. Donahue, done Related to CAT - 3 mo c KARINA/VF and OCT KARINA will dilate Related to CAT Papilledema, Recurre nt since 05/12/11. OCT demonstrates increased thcikness OU (OD 96->107, OS99->209). Decreased vision OU (20/25->20/30 OD 20/25->20/50 OS) Recurrence of diplopia since 05/12 (2LHT) pc/IOL OU ERM OS - 1. Pt. to be admitted at [facility]. for recurrence of papilledema, diplopia (LHT) in the presence of encephalopahty of unknown etiology. Original improved after high dose steroids. Will be done thru a direct admit to Dr. Musa (Neurology at [facility]). Spoke with [facility] Resident certified personal chef who will write the orders (pager [phone]) Pt. given order for admission under Dr. Musa.LETTER TO CALLIE, done will be faxed as soon as typed 07/09. Related to Papilledema, unspecified - 4-6 weeks for HVF, Refract, KARINA to dilate Related to Papilledema, unspecified Assessments Type Assessment Date No Information Patient Care Teams Name Effective Dates (start - stop) Status Members No Information
[2025-07-18] VITALS (14 sets, daily range): BP systolic 130–156; BP diastolic 70–77; O2SAT 94–98
--- NOTE | 2025-07-18 16:05 | ED.LOWEXIN ---
HPI - Extremity Injury (Lower) General Chief Complaint: Extremity Injury, Lower Stated Complaint: Swollen, Painful L. Leg Time Seen by Provider: 07/18/25 16:06 Source: patient and family Mode of arrival: ambulatory Limitations: no limitations History of Present Illness HPI Narrative: Patient is a 75-year-old female with a left lower extremity pain and swelling with skin changes of redness over the past 3 days. Patient does not definitely recall an injury but she has been running into her wheelchair sides lately with her legs. No fever or chills. MD complaint: leg injury (Left lower) Onset (ago): day(s) (3) Type of Injury: unknown Place: home Severity: moderate Severity scale (1-10): 6 Relieving factors: nothing Exacerbating factors: weight bearing, movement and palpation Context: other (Patient has been hurting her legs on her wheelchair lately and now she has a left lower extremity pain and swelling and skin change for the past 3 days) Associated symptoms: swelling and able to partially bear weight Other symptoms: none Treatments prior to arrival: other (None) Related Data Home Medications ?Medication ?Instructions ?Recorded ?Confirmed ?Last Taken ?Type acetaminophen 500 mg capsule 500 mg PO Q6H PRN Pain (Scale 11/24/19 05/23/25 07/01/23 14:15 History Score 1-3) aspirin 81 mg tablet,delayed 81 mg PO DAILY 11/24/19 05/23/25 07/01/24 History release (Adult Aspirin Regimen) atorvastatin 40 mg tablet 40 mg PO HS 11/24/19 05/23/25 07/01/24 History escitalopram oxalate 20 mg tablet 10 mg PO DAILY 11/24/19 05/23/25 07/01/24 History levetiracetam 250 mg tablet 250 mg PO Q12H 11/24/19 05/23/25 07/01/24 History (Keppra) melatonin 5 mg capsule 5 mg PO HS 11/24/19 05/23/25 06/30/24 History potassium chloride 20 mEq 30 meq PO BID 11/24/19 05/23/25 07/01/24 History tablet,extended release multivitamin with folic acid 400 1 tablet PO DAILY 03/10/22 05/23/25 07/01/24 History mcg tablet (Daily-Annie (with folic acid)) alprazolam 0.5 mg tablet 0.5 mg PO Q8-12H PRN Anxiety 06/29/23 05/23/25 06/17/24 History ferrous sulfate 325 mg (65 mg 325 mg PO TID 12/02/23 05/23/25 07/01/24 History iron) tablet escitalopram oxalate 10 mg tablet mg 07/18/25 Unknown History levocetirizine 5 mg tablet mg 07/18/25 Unknown History ropinirole 2 mg tablet mg 07/18/25 Unknown History Allergies Allergy/AdvReac Type Severity Reaction Status Date / Time Iodinated Contrast Media Allergy Unknown Rash Verified 07/18/25 16:38 latex Allergy Unknown Unknown Verified 07/18/25 16:38 lorazepam Allergy Unknown Unknown Verified 07/18/25 16:38 adhesive tape AdvReac Rash Verified 07/18/25 16:38 nickel AdvReac Rash Verified 07/18/25 16:38 Review of Systems Review of Systems: All systems reviewed & are unremarkable except as noted in HPI and below Constitutional: Constitutional: Reports no additional constitutional complaints Eyes: Eyes: Reports no additional eye complaints ENT: Reports system reviewed and no additional complaints, except as documented Cardiovascular: Cardiovascular: Reports no additional cardiovascular complaints Respiratory: Respiratory: Reports no additional respiratory complaints Gastrointestinal: Gastrointestinal: Reports no additional gastrointestinal complaints Genitourinary: Genitourinary: Reports no additional female genitourinary complaints Musculoskeletal: Musculoskeletal: Reports no additional musculoskeletal complaints Integumentary/Breasts: Skin/Breast: Reports system reviewed and no additional complaints, except as docu Neurologic: Reports system reviewed and no additional complaints, except as documented Psychiatric: Psychiatric: Reports no additional psychiatric complaints Endocrine: Endocrine: Reports no additional endocrine complaints Hematologic/Lymphatic: Hematologic/Lymphatic: Reports no additional hematologic/lymphatic complaints Allergic/Immunologic: Allergic/Immunologic: Reports no additional allergic/immunologic complaints PMFSH Past Medical History Medical History Chronic respiratory failure with hypoxia, on home oxygen therapy 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 Chronic obstructive pulmonary disease Chronic kidney disease, stage 3 Pulmonary embolism (11/2021) Small cell lung cancer Status post chemoradiotherapy. Dyslipidemia Diastolic dysfunction Surgical History Surgical History History of incisional hernia repair History of inguinal hernia repair History of heart artery stent History of cardiac catheterization History of left nephrectomy At age 3, done for unclear reasons. History of abdominal aortic aneurysm repair Family History Family History Sibling Family history of arthritis Lung transplant status, bilateral COPD (chronic obstructive pulmonary disease) Colon cancer Father Melanoma Mother No problems noted. Social History Social History Social History: [id number]: Isabela Ponce, friend. Code status: Full code. Smoking packs per day: 1 Smoking cigarettes per day: 20.0 Years smoked: 36 Smoking pack-years: 36.00 Tobacco type: cigarettes Second hand tobacco smoke exposure: No Smoking end date: 09/14/05 Alcohol intake: former Alcohol use details: No alcohol since 2005. Substance use: current Substance use type: prescription drug Lack of Transportation: No Lack of Food: Never True Current Housing: I Have Housing Concerned About Future Housing: No Difficulty Paying Gas/Electric Bills: No Difficulty Paying for Meds: No Currently Unemployed: No Education: High School Diploma/GED Difficulty w/ Childcare or Family Care: No Additional living arrangements comments: Lives in assisted living. Wheelchair-bound due to right-sided deficits from prior CVA. Spiritual care concerns: No Exam Const: General: healthy appearing Nutritional Appearance: well nourished Orientation/consciousness: patient oriented x3 HENMT: Head: normal to inspection Ears: external ears normal Face/Nose/Sinus: Normal external nose present Eyes: Conjunctivae: conjunctivae normal Pupils: Equal, round and reactive pupils present EOM: EOMs intact bilaterally Neck: Neck: normal visual inspection Chest: Chest palpation & inspection: normal inspection of the chest Resp: Effort & Inspection: normal respiratory effort and not labored Auscultation: clear to auscultation bilaterally and no crackles Cardio: Rate: regular rate Rhythm: regular rhythm Heart sounds: no murmurs GI: Inspection: non-distended GI Palp: Yes Soft to palpation and No Tenderness to palpation present (GI) Auscultation: normal bowel sounds : General: Yes bladder normal to palpation Back/Spine/Pelvis: Back: no CVA tenderness Skin: General skin exam: No normal color Rashes: no rashes Wounds: wound noted Other: Left lower extremity is swollen and red and painful to palpation which extends below the knee to the top of the ankle Neuro: General: patient oriented x3, moves all extremities and no meningeal signs Psych: Mental Status: mental status grossly normal Affect: normal affect Attitude: cooperative MDM - Extremity Injury (Lower) MDM Narrative Medical decision making narrative: Patient is a 75-year-old female with a left lower extremity pain and swelling over the past 3 days. She will need an ultrasound for DVT rule out but we will need to transfer her up to [facility] if needed. We will get labs to include a dimer and pain control. Transfer patient to [facility] for ultrasound and rule out DVT. She will need further treatment with antibiotics for cellulitis. Lab Data Attestation: I reviewed the patient's lab results. 07/18/25 16:04 07/18/25 16:04 Labs: Lab Results 07/18/25 Range/Units 16:04 WBC 9.1 (4.8-10.8) K/mm3 RBC 4.18 L (4.20-5.40) M/mm3 Hgb 11.9 (11.7-13.8) g/dL Hct 39.2 (35.0-42.0) % MCV 93.8 (78.0-102.0) fL MCH 28.5 (27.0-31.0) pg MCHC 30.4 L (32-36) g/dL RDW 13.4 (11.6-14.4) % Plt Count 314 (150-420) K/mm3 MPV 9.4 (9.2-11.8) fl Immature Gran % (Auto) 0.4 H (0.0-0.0) % Neut % (Auto) 69.2 (50.0-70.0) % Lymph % (Auto) 15.7 L (18.0-42.0) % [place] % (Auto) 9.9 (2.0-11.0) % Eos % (Auto) 4.4 (1.0-6.0) % Baso % (Auto) 0.4 (0.0-1.0) % Lymph # (Auto) 1.43 (1.10-4.50) K/mm3 [place] # (Auto) 0.90 (0.10-0.90) K/mm3 Eos # (Auto) 0.40 (0.02-0.50) K/mm3 Baso # (Auto) 0.04 (0.00-0.10) K/mm3 Abs Immat Gran (auto) 0.04 H (0.00-0.00) K/mm3 Absolute Neuts (auto) 6.29 (1.70-7.20) K/mm3 Absolute Nucleated RBC 0.00 (0.00-0.00) K/mm3 Nucleated RBC % 0.0 (0-0.0) % PT 10.6 (9.50-12.1) Seconds INR 1.0 APTT 27.9 (23.9-30.70) Sec D-Dimer 1.71 H (0.19-0.50) mg/L Sodium 145 (137-145) mmol/L Potassium 3.9 (3.4-5.0) mmol/L Chloride 100 (98-107) mmol/L Carbon Dioxide > 40 H (22-30) mmol/L Anion Gap 4.32521 (4-12) mmol/L BUN 21 H D (7-17) mg/dL Creatinine 1.28 H (0.7-1.0) mg/dL Estim Creat Clear Calc Not Reportable Estimated GFR 41 L (59 - ) Glucose 100 (65-110) mg/dL Calculated Osmolality 303 H (285-295) mOsm/kg Lactic Acid 0.9 (0.7-2.0) mmol/L Calcium 9.6 (8.4-10.2) mg/dL Total Bilirubin 1.5 H (0.2-1.3) mg/dL AST 53 H (14-36) U/L ALT 32 (6-35) U/L Alkaline Phosphatase 70 (38-126) U/L Total Protein 6.9 (6.3-8.2) g/dL Albumin 4.1 (3.5-5.1) g/dL Discharge Plan Discharge Clinical Impression: Cellulitis of left leg, Left leg swelling Patient Disposition: Acute Care Hospital Condition: Stable Patient Language: Japanese Prescriptions: No Action multivitamin with folic acid [Daily-Annie (with folic acid)] 400 mcg tablet 1 tablet PO DAILY ropinirole 2 mg tablet escitalopram oxalate 10 mg tablet levocetirizine 5 mg tablet ferrous sulfate 325 mg (65 mg iron) tablet 325 mg PO TID potassium chloride 20 mEq tablet extended release 30 meq PO BID melatonin 5 mg capsule 5 mg PO HS levetiracetam [Keppra] 250 mg tablet 250 mg PO Q12H escitalopram oxalate 20 mg tablet 10 mg PO DAILY atorvastatin 40 mg tablet 40 mg PO HS aspirin [Adult Aspirin Regimen] 81 mg tablet,delayed release (DR/EC) 81 mg PO DAILY acetaminophen 500 mg capsule 500 mg PO Q6H PRN (Reason: Pain (Scale Score 1-3)) (DME) comp.stocking,knee,long,medium Misc See Rx Instructions .Route Qty: 12 0RF Rx Instructions: As directed furosemide [Lasix] 40 mg tablet 40 mg PO BID Qty: 60 0RF fluticasone propion-salmeterol [Advair HFA] 230-21 mcg/actuation HFA aerosol inhaler See Rx Instructions .ROUTE .COMPLEX Qty: 12 6RF Dose Instruction: Inhale 2 puffs by mouth twice daily. Rx Instructions: Inhale 2 puffs by mouth twice daily. alprazolam 0.5 mg tablet 0.5 mg PO Q8-12H PRN (Reason: Anxiety) pantoprazole 40 mg Tablet,Delayed Release (Dr/Ec) 40 mg PO QAM Qty: 30 0RF Incruse Ellipta 62.5 mcg/actuation blister with device See Rx Instructions .ROUTE .COMPLEX Qty: 30 6RF Dose Instruction: Inhale 1 puff by mouth at the same time daily. Rx Instructions: Inhale 1 puff by mouth at the same time daily. albuterol sulfate 90 mcg/actuation HFA aerosol inhaler 2 puff inhalation Q6H PRN (Reason: shortness of breath or wheezing) Qty: 8.5 3RF Rx Instructions: Use with spacer. Follow-up/Referrals: Salima Donahue MD [Primary Care Provider, Internal Medicine] Time of Disposition: 17:09
[2025-07-18] MEDS: MORPHINE SULFATE (*CRX) 4 MG/ML INJ IV PUSH (16:14)
[2025-07-18 16:18] LABS: Hematocrit 39.2 % (35.0-42.0); Hemoglobin 11.9 g/dL (11.7-13.8); Immature Granulocyte Percent A 0.4 % (0.0-0.0); Lymphocytes Absolute Auto 1.43 K/mm3 (1.10-4.50); Mean Corpuscular HGB Conc 30.4 g/dL (32-36); Mean Corpuscular Hemoglobin 28.5 pg (27.0-31.0); Mean Corpuscular Volume 93.8 fL (78.0-102.0); Nucleated Red Blood Cells Absolute Auto 0.00 K/mm3 (0.00-0.00); Nucleated Red Blood Cells Perc 0.0 % (0-0.0); Platelet Count Result 314 K/mm3 (150-420); Red Blood Count 4.18 M/mm3 (4.20-5.40); White Blood Count 9.1 K/mm3 (4.8-10.8)
[2025-07-18 16:22] LABS: Alanine Aminotransferase 32 U/L (6-35); Albumin Level 4.1 g/dL (3.5-5.1); Alkaline Phosphatase 70 U/L (38-126); Anion Gap 4.99999 mmol/L (4-12); Aspartate Amino Transferase 53 U/L (14-36); Bilirubin,Total 1.5 mg/dL (0.2-1.3); Blood Urea Nitrogen 21 mg/dL (7-17); Calcium 9.6 mg/dL (8.4-10.2); Carbon Dioxide > 40 mmol/L (22-30); Chloride 100 mmol/L (98-107); Estimated Glomerular Filt Rate 41; Glucose 100 mg/dL (65-110); Osmolality Calculated 303 mOsm/kg (285-295); Potassium 3.9 mmol/L (3.4-5.0); Sodium 145 mmol/L (137-145); Total Protein 6.9 g/dL (6.3-8.2)
[2025-07-18 16:24] LABS: INR 1.0; Partial Thromboplastin Time 27.9 Sec (23.9-30.70); Prothrombin Time 10.6 Seconds (9.50-12.1)
[2025-07-18] MEDS: cefTRIAXone 1 GM in SODIUM CHLORIDE 0.9% IV 50 ML 100 ML IVPB (16:24)
--- OUTSIDE RECORDS SUMMARY | 2025-07-18 16:46 | XMS_ITS | Encounter Summary ---
Author Organization [facility] Address [address] [place] [address] Care Team Providers Care Senior Reactor Operator Name Role Phone Salima Donahue MD Primary Care Provider [phone] Gordy Rodriguez MD Unavailable Unavailable Encounter Details Date Type Department Care Team (Late st Contact Info) Description 02/19/2019 Abstract [facility] CONVERSION [address] [place] [address] , Generic Conversion, Social History Tobacco Use [...] on filedocumented in this encounter Care Teams Senior Reactor Operator Relationship Specialty Start Date End Date Salima Donahue MD [address] [place] [id number] PCP - General INTERNAL MEDICINE 12/10/17 Gordy Rodriguez MD [address] [place] [address] [place] [employer] Supervisor INTERVENTIONAL CARDIOLOGY 09/24/18 documented as of this encounter
--- OUTSIDE RECORDS SUMMARY | 2025-07-18 16:47 | XMS_ITS | Clinical Summary ---
Author Organization [facility] Address [address] [address] Care Team Providers Care Athletic Coach Name Role Phone Salima Donahue MD Primary [...] Encounters Date Type Department Care Team Description 07/05/2025 External Device Data STL ABSTRACTION Provider, Abstract 07/04/2025 External Device Data STL ABSTRACTION Provider, Abstract 06/06/2025 External Device Data STL ABSTRACTION Provider, [...] 165.1 cm (5' 5) 07/31/2022 2:58 PM LINE OUT WORKER Body Mass Index 23.16 07/31/2022 2:58 PM LINE OUT WORKER Plan of Treatment Upcoming Encounters Date Type Department Care Team (Late st Contact Info) Description 09/28/2025 2:30 PM LINE OUT WORKER Office Visit [facility] - [place] [address] [facility] [address] [place] [address] Dino Farfan MD [address] [facility] [address] [place] [address] Health Maintenance Due Date Last Done Comments DTAP/TDAP/TD VACCINES (1 - Tdap) 1970 PNEUMOCOCCAL VACCINE 50+ YEARS (1 of 2 - PCV) 06/16/19 70 BREAST CANCER SCREENING 1991 FIT-DNA Q 3 years 1996 FIT/FOBT Q 1 year 1996 Flex Sig/CT Colonography Q 5 years 1996 RSV VACCINE (60+ or ) (1 - Risk 50-74 years 1-dose series) 2001 ZOSTER VACCINE (1 of 2) 2001 OSTEOPOROSIS SCREENING 2016 INFLUENZA VACCINE (#1) 2025 COLORECTAL SCREENING 05/05/2032 05/05/2022 Colorectal Cancer Screening 05/05/2032 Insurance MEDICARE PART A AND B [facility] Care Teams Athletic Coach Relationship Specialty Start Date End Date Salima Donahue MD [address] [place] [phone] PCP - General Internal Medicine 07/31/22
--- OUTSIDE RECORDS SUMMARY | 2025-07-18 16:47 | XMS_ITS | Encounter Summary ---
Author Organization [facility] Address [address] [place] [address] Care Team Providers Care Healthcare Interpreter Name Role Phone Salima Donahue MD Primary Care Provider [phone] Claude Pinto MD Unavailable [phone] Gordy Rodriguez MD Unavailable Unavailable Encounter Details Date Type Department Care Team (Late st Contact Info) Description 11/28/2017 Abstract [facility] CONVERSION [address] [place] [address] , Generic MD Jenniffer Social History Tobacco [...] on filedocumented in this encounter Care Teams Healthcare Interpreter Relationship Specialty Start Date End Date Salima Donahue MD [address] [place] [address] PCP - General INTERNAL MEDICINE 12/10/17 Claude Pinto MD [address] [place] [address] [place] [employer]orer CARDIOVASCULAR DISEASE 12/10/17 09/27/18 Gordy Rodriguez MD [address] [place] [address] [place] [employer] INTERVENTIONAL CARDIOLOGY 09/24/18 documented as of this encounter
--- OUTSIDE RECORDS SUMMARY | 2025-07-18 16:47 | XMS_ITS | Clinical Summary ---
Author Organization [facility] Address [address] [place] [address] Care Team Providers Care Therapeutic Strategy Lead Name Role Phone Salima Donahue MD Primary Care Provider [phone] Gordy Rodriguez MD Unavailable Unavailable Allergies Active [...] 20 mg by mouth daily. Active Umeclidinium [place] (INCRUSE ELLIPTA) 62.5 MCG/INH AEROSOL POWDER, BREATH ACTIVATED Inhale 1 puff into the lungs daily. Active alendronate 70 MG tablet Take 70 mg by mouth every 7 days. Take in the morning with a full glass of water, on an empty stomach, and do not take anything else by mouth or lie down for the next 30 min. 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 COPD (chronic obstructive [...] CHOLESTEROL 112 MG/DL 03/01/2019 4:04 AM CDT [facility] Comment:DESIRABLE: <200 TRIGLYCERIDES 59 MG/DL 03/01/2019 4:04 AM CDT [facility] Comment:<150 NORMAL HDL 56 >49 MG/DL 03/01/2019 4:04 AM CDT [facility] LDL (CALCULATED) 44 MG/DL 03/01/20 4:04 AM CDT [facility] Comment:<100 OPTIMAL VLDL CALCULATION 12 MG/DL 03/01/20 4:04 AM CDT [facility] Comment:REFERENCE RANGE NOT ESTABLISHED CHOL/HDL RATIO 2.0 03/01/2019 4:04 AM CDT [facility] Comment:REFERENCE RANGE NOT ESTABLISHED LDL/HDL 0.8 03/01/2019 4:04 AM CDT [facility] Comment:REFERENCE RANGE NOT ESTABLISHED NON HDL CHOLESTEROL 56 MG/DL 03/01/2019 4:04 AM CDT [facility] Comment:REFERENCE RANGE NOT ESTABLISHED 03/01/2019 3:14 AM CDT Dino Frye DO LABORATORY Final Result Performing Organization Address City/State/[facility] Co de Phone Number [facility] [address] [place] [address], [phone] from Last 3 Months or Most Recently Relevant to Health Maintenance Insurance MEDICAID MEDICARE MEDICARE MEDICAID Advance Directives Documents on File Type Date Recorded Patient Strings Teacher Expl anation Advance Directives and Living Will 03/02/2019 10:16 AM short form poa for health care Advance Directives and Living Will 03/02/2019 9:23 AM POLST Power of Design Teacher 01/17/2019 7:32 AM Advance Directives and Living [...] 10:34 AM 01/13/2019 3:34 PM Care Teams Therapeutic Strategy Lead Relationship Specialty Start Date End Date Salima Donahue MD [address] [place] [address] PCP - General INTERNAL MEDICINE 12/10/17 Gordy Rodriguez MD [address] [place] [address] [employer] INTERVENTIONAL CARDIOLOGY 09/24/18
[2025-07-18] MEDS: SODIUM CHLORIDE 0.9% IV 500 ML 999 ML IV CONT (17:37)
--- NOTE | 2025-07-22 13:07 | PC.NURSE ---
PRELIMINARY BLOOD CULTURE NO GROWTH IN 24 HOURS
--- NOTE | 2025-07-23 12:49 | PC.NURSE ---
PRELIMINARY BLOOD CULTURE REPORT; NO GROWTH IN 48 HOURS.
--- NOTE | 2025-07-26 13:02 | PC.NURSE ---
blood, final, no growth
== END 2025-07-18 18:00 | disposition short-term general hospital (02) ==
PROVIDERS: Emergency Provider Emergency Medicine; PCP Internal Medicine
DX: L03.116 Cellulitis of left lower limb (principal); I13.0 Hypertensive heart and chronic kidney disease with heart failure and stage 1 through stage 4 chronic kidney disease, or unspecified chronic kidney disease; I50.30 Unspecified diastolic (congestive) heart failure; N18.30 Chronic kidney disease, stage 3 unspecified; F17.210 Nicotine dependence, cigarettes, uncomplicated; Z86.73 Personal history of transient ischemic attack (TIA), and cerebral infarction without residual deficits; Z79.899 Other long term (current) drug therapy; Z85.118 Personal history of other malignant neoplasm of bronchus and lung
CPT/HCPCS: 36415; 80053; 83605; 85025; 85380; 85610; 85730; 96365; 96375; 99285; J0696; J2270; J7040

== ENCOUNTER 2025-07-18 19:04 | Emergency (ER) | payer MEDICARE, MEDICAID, SELFPAY ==
--- OUTSIDE RECORDS SUMMARY | 2013-03-23 03:59 | XMS_ITS | Continuity of Care Document ---
Author Organization [facility], [facility] Address [address] [place] [address] Phone Care Team Providers Care Paste Mixer Name Role Phone Faina ROGERS, Heidi Unavailable [...] Provider Providers Copied on Encounter [facility], [address] [place] [address], [id number] , tel:[phone] [facility] No Information 3 Faina Gordon. [address] [place] [address], [id number], [place]. tel:[phone] [facility], [address] [place] [address], [id number] , [place] tel:[phone] [facility] Papilledema, unspecifiedOpen angle with borderline glaucoma findingsOther dissociated deviation of eye movementsNystagmus, unspecifiedOpen angle with borderline glaucoma findings 3 Ruben Newell. [address] [place] [address], [address], [place], [place], [id number], [place]. tel:[phone] Referring Provider: Norman Gould, [address] [place] [address], [address] . tel:[phone] [facility], [address] [place] [address], [id number] , [place] tel:[phone] [facility] Macular puckering of retinaPapilledema, unspecifiedOther dissociated deviation of eye movements May-0 3 Ruben Newell. [address] [place] [address], [address] [facility], [place], [place], [id number], [place]. tel:[phone] [facility], [address] [place] [address], [id number] , [place] tel:[phone] [facility] Nystagmus, unspecifiedAnatomic al narrow angle borderline glaucomaLens replaced by other meansPapilledema, unspecifiedOther dissociated deviation of eye movementsMacular puckering of retinaSenile nuclear sclerosisEpilepsy, unspecifiedNystagmu s, unspecified Sep-2 2 Ruben Newell. [address] [place] [address], [place], [place], [id number], [place]. tel:[phone] Referring Provider: Reece Perez, [address] [place] [address], [place], [address] . tel:[phone] [facility], [address] [place] [address], [id number] , [place] tel:[phone] [facility] No Information 2 Ruben Newell. [address] [place] [address], [place], [place], [id number], [place]. tel:[phone] Referring Provider: Normna Gould, [address] [place] [address], [address] . tel:[phone] [facility], [address] [place] [address], [id number] , [place] tel:[phone] [facility] Papilledema, unspecifiedOther dissociated deviation of eye movements Nov-0 2 Ruben Newell. [address] [place] [address], [address] [facility], [place], [place], [id number], [place]. tel:[phone] Referring Provider: Reece Perez, [address] [place] [address] [address] [facility], [place], [place], [address] [place] [address] . tel:[phone] [facility], [address] [place] [address], [address] [place] [address] , tel: [phone] [facility] No Information 2 Lee Norman. [address] [place] [address], [address] [place] [address], . tel:[phone] Referring Provider: Norman Gould, [address] [place] [address], [address] [place] [address] . tel:[phone] [facility], [address] [place] [address], [address] [place] [address] , tel: [phone] [facility] No Information 2 Knupp Reece. [address] [place] [address], [address], [address] [place] [address], . tel:[phone] Referring Provider: Norman Gould, [address] [place] [address], [address] [place] [address] . tel:[phone] [facility], [address] [place] [address], [address] [place] [address] , tel: [phone] [facility] Papilledema, unspecifiedCATOther dissociated deviation of eye movementsEpilepsy, unspecified Dec- 1 Knupp Reece. [address] [place] [address], [address], [place], [address] [place] [address], . tel:[phone] Referring Provider: Norman Mosesatia Bryanna, [address] [place] [address], [address] [place] [address] . tel:[phone] [facility], [address] [place] [address], [address] [place] [address] , tel: [phone] [facility] Macular puckering of retinaPapilledema, unspecifiedSenile nuclear sclerosisSenile nuclear sclerosisOther dissociated deviation of eye movementsOther dissociated deviation of eye movements Dec- 1 Knupp Reece. [address] [place] [address], [address] [facility], [place], [id number], [place]. tel:[phone] [facility], [address] [place] [address], [id number] , [place] tel:[phone] [facility] Macular puckering of retinaPapilledema, unspecifiedPapilled demetrio, unspecifiedMacular puckering of retina Oct-2 1 Ruben Newell. [address] [place] [address], [address], [place], [place], [id number], [place]. tel:[phone] Referring Provider: Norman Gould, [address] [place] [address], [address] . tel:[phone] [facility], [address] [place] [address], [id number] , [place] tel:[phone] [facility] No Information Jun-2 1 Ruben Newell. [address] [place] [address], [place] [address], [place], [place], [id number], [place]. [phone] Referring Provider: Norman Gould, [address] [place] [address], [address] . tel:[phone] [facility], [address] [place] [address], [id number] , [place] tel:[phone] [facility] No Information Jun- 1 Lee Austin. [address] [place] [address], [id number], [place]. tel:[phone] Referring Provider: Norman Gould, [address] [place] [address], [address] . tel:[phone] [facility], [address] [place] [address], [id number] , [place] tel:[phone] [facility] No Information Apr- 1 Ruben Newell. [address] [place] [address], [address], [place], [place], [id number], [place]. tel:[phone] Referring Provider: Reece Perez, [address] [facility] [address], [place], [address] . tel:[phone] Family History Family Member Type Diagnosis Age [...] Disorders Payers Payer name Insurance type Covered alliance party ID Authoriza tion(s) [place] Public [facility] [id number] Social History Type Description Quantity Date Captured [...] weeks I will refer to university based neuro-wood engraver for further evaluation and care. She will [...] advised pt and family that follow-up with neuro-wood engraver at a [place] setting is necessary per her new development [...] from previous papilledema. Letter Dr. Callie MD [facility] Neurology, Dr. Godfrey MD PCP done. Related [...] Letter Dr. Hebert Lozano & Dr Rajan ([facility] Neuro), Dr. Donahue, done Related to Papilledema, [...] Letter Dr. Hebert Lozano & Dr Rajan ([facility] Neuro), Dr. Donahue, done Related to CAT - 4-6 weeks for HVF, Refract, KARINA to dilate Related to Papilledema, unspecified Papilledema, Recurre nt since 05/12/11. OCT demonstrates increased thcikness OU (OD 96->107, OS99->209). Decreased vision OU (20/25->20/30 OD 20/25->20/50 OS) Recurrence of diplopia since 05/12 (2LHT) pc/IOL OU ERM OS - 1. Pt. to be admitted at [facility]. for recurrence of papilledema, diplopia (LHT) in the presence of encephalopahty of unknown etiology. Original improved after high dose steroids. Will be done thru a direct admit to Dr. Musa (Neurology at [facility]). Spoke with LEIGH Resident insulation cupola operator who will write the orders (pager [phone]) Pt. given order for admission under Dr. Musa.LETTER TO CALLIE, done will be faxed as soon as typed 07/09. Related to Papilledema, unspecified Assessments Type Assessment Date No Information Patient Care Teams Name Effective Dates (start - stop) Status Members No Information
--- OUTSIDE RECORDS SUMMARY | 2013-03-23 03:59 | XMS_ITS | Continuity of Care Document ---
Author Organization [facility], L TD Address [address] [place] [address] Phone Care Team Providers Care Accounting Manager Assistant Controller Name Role Phone Faina ROGERS, Heidi Unavailable [...] Provider Providers Copied on Encounter [facility], [address] [place] [address], [id number] , tel:[phone] [facility] No Information 3 Faina Gordon. [address] [place] [address], [id number], [place]. tel:[phone] [facility], [address] [place] [address], [id number] , [place] tel:[phone] [facility] Papilledema, unspecifiedOpen angle with borderline glaucoma findingsOther dissociated deviation of eye movementsNystagmus, unspecifiedOpen angle with borderline glaucoma findings 3 Ruben Newell. [address] [place] [address], [address], [place], [place], [id number], [place]. tel:[phone] Referring Provider: Norman Gould, [address] [place] [address], [address] . tel:[phone] [facility], [address] [place] [address], [id number] , [place] tel:[phone] [facility] Macular puckering of retinaPapilledema, unspecifiedOther dissociated deviation of eye movements May-0 3 Ruben Newell. [address] [place] [address], [address] [facility], [place], [place], [id number], [place]. tel:[phone] [facility], [address] [place] [address], [id number] , [place] tel:[phone] [facility] Nystagmus, unspecifiedAnatomic al narrow angle borderline glaucomaLens replaced by other meansPapilledema, unspecifiedOther dissociated deviation of eye movementsMacular puckering of retinaSenile nuclear sclerosisEpilepsy, unspecifiedNystagmu s, unspecified Sep-2 2 Ruben Newell. [address] [place] [address], [place], [place], [id number], [place]. tel:[phone] Referring Provider: Reece Perez, [address] [place] [address], [place], [address] . tel:[phone] [facility], [address] [place] [address], [id number] , [place] tel:[phone] [facility] No Information 2 Ruben Newell. [address] [place] [address], [place], [place], [id number], [place]. tel:[phone] Referring Provider: Nomran Gould, [address] [place] [address], [address] . tel:[phone] [facility], [address] [place] [address], [id number] , [place] tel:[phone] [facility] Papilledema, unspecifiedOther dissociated deviation of eye movements Nov-0 2 Ruben Newell. [address] [place] [address], [address] [facility], [place], [place], [id number], [place]. tel:[phone] Referring Provider: Reece Perez, [address] [place] [address] [address] [facility], [place], [place], [address] [place] [address] . tel:[phone] [facility], [address] [place] [address], [address] [place] [address] , tel: [phone] [facility] No Information 2 Lee Norman. [address] [place] [address], [address] [place] [address], . tel:[phone] Referring Provider: Norman Gould, [address] [place] [address], [address] [place] [address] . tel:[phone] [facility], [address] [place] [address], [address] [place] [address] , tel: [phone] [facility] No Information 2 Knupp Reece. [address] [place] [address], [address], [address] [place] [address], . tel:[phone] Referring Provider: Norman Gould, [address] [place] [address], [address] [place] [address] . tel:[phone] [facility], [address] [place] [address], [address] [place] [address] , tel: [phone] [facility] Papilledema, unspecifiedCATOther dissociated deviation of eye movementsEpilepsy, unspecified Dec- 1 Knupp Reece. [address] [place] [address], [address], [place], [place], [address] [place] [address], . tel:[phone] Referring Provider: Norman Mosesatia Bryanna, [address] [place] [address], [address] [place] [address] . tel:[phone] [facility], [address] [place] [address], [address] [place] [address] , tel: [phone] [facility] Macular puckering of retinaPapilledema, unspecifiedSenile nuclear sclerosisSenile nuclear sclerosisOther dissociated deviation of eye movementsOther dissociated deviation of eye movements Dec- 1 Knupp Reece. [address] [place] [address], [address] [facility], [place], [place], [id number], [place]. tel:[phone] [facility], [address] [place] [address], [id number] , [place] tel:[phone] [facility] Macular puckering of retinaPapilledema, unspecifiedPapilled demetrio, unspecifiedMacular puckering of retina Oct-2 1 Ruben Newell. [address] [place] [address], [address], [place], [place], [id number], [place]. tel:[phone] Referring Provider: Norman Gould, [address] [place] [address], [address] . tel:[phone] [facility], [address] [place] [address], [id number] , [place] tel:[phone] [facility] No Information Jun-2 1 Ruben Newell. [address] [place] [address], [place] [address], [place], [place], [id number], [place]. [phone] Referring Provider: Norman Gould, [address] [place] [address], [address] . tel:[phone] [facility], [address] [place] [address], [id number] , [place] tel:[phone] [facility] No Information Jun- 1 Lee Austin. [address] [place] [address], [id number], [place]. tel:[phone] Referring Provider: Norman Gould, [address] [place] [address], [address] . tel:[phone] [facility], [address] [place] [address], [id number] , [place] tel:[phone] [facility] No Information Apr- 1 Ruben Newell. [address] [place] [address], [address], [place], [place], [id number], [place]. tel:[phone] Referring Provider: Reece Perez, [address] [facility] [address], [place], [address] . tel:[phone] Family History Family Member Type Diagnosis Age [...] Disorders Payers Payer name Insurance type Covered green party ID Authoriza tion(s) [place] [facility] [id number] Social History Type Description Quantity Date Captured [...] weeks I will refer to university based neuro-distribution sales manager for further evaluation and care. She will [...] advised pt and family that follow-up with neuro-distribution sales manager at a [place] setting is necessary per her new development [...] papilledema. Letter Dr. Callie MD [facility] Neurology, Dr. Godfrey MD PCP [...] Hebert Lozano & Dr Rajan ([facility] Neuro), Dr. Donahue, done Related [...] Hebert Lozano & Dr Rajan ([facility] Neuro), Dr. Donahue, done Related to CAT - 4-6 weeks for HVF, Refract, KARINA to dilate Related to Papilledema, unspecified Papilledema, Recurre nt since 05/12/11. OCT demonstrates increased thcikness OU (OD 96->107, OS99->209). Decreased vision OU (20/25->20/30 OD 20/25->20/50 OS) Recurrence of diplopia since 05/12 (2LHT) pc/IOL OU ERM OS - 1. Pt. to be admitted at [facility]. for recurrence of papilledema, diplopia (LHT) in the presence of encephalopahty of unknown etiology. Original improved after high dose steroids. Will be done thru a direct admit to Dr. Musa (Neurology at [facility]). Spoke with LEIGH Resident hydro generation supervisor who will write the orders (pager [phone]) Pt. given order for admission under Dr. Musa.LETTER TO CALLIE, done will be faxed as soon as typed 07/09. Related to Papilledema, unspecified Assessments Type Assessment Date No Information Patient Care Teams Name Effective Dates (start - stop) Status Members No Information
--- NOTE | ~2025-07-18 | US_ITS ---
EXAMINATION:US venous doppler LE LT INDICATION:Possible DVT TECHNIQUE: Multiple grayscale, color flow and Doppler images of the left lower extremity deep venous systems were obtained and reviewed. COMPARISON:Ultrasound dated 06/28/2025 FINDINGS: The common femoral, superficial femoral and popliteal veins demonstrate normal respiratory variation, augmentation and compressibility. Color flow is also seen within the posterior tibial, peroneal, greater saphenous and profunda veins. In the left lateral angulo in the area of redness and swelling there is an oval hypoechoic parallel oriented mass located superficially measuring 2.3 x 2.5 x 0.5 cm, most likely hematoma. IMPRESSION: 1: No lower extremity deep venous thrombosis. 2: Oval parallel oriented hypoechoic 2.5 cm mass located superficially in the area of swelling and bruising, most likely hematoma. Reviewed, dictated and finalized at location O. S OPERATOR APPRENTICE
--- NOTE | 2025-07-18 20:14 | ED.GENADULT ---
HPI - General Adult General Chief complaint: Extremity Problem,Nontraumatic Stated complaint: Left leg pain Time Seen by Provider: 07/18/25 19:11 History of Present Illness HPI narrative: This is a 75 year old female sent from [place] for possible DVT. Patient is poor historian due to previous CVA. Her vnkrz-qr-qsfzqjzt and close friend is with her and says that she has been having issues hitting her legs on the side of her wheelchair. She developed a hematoma several weeks ago that needed to be drained. Today she has redness and discoloration of her left leg. There is a fluctuant mass in the middle. It is very tender and causing her significant pain. She denies fevers chills nausea vomiting diarrhea. Related Data Home Medications ?Medication ?Instructions ?Recorded ?Confirmed ?Last Taken ?Type acetaminophen 500 mg capsule 500 mg PO Q6H PRN Pain (Scale 11/24/19 05/23/25 07/01/23 14:15 History Score 1-3) aspirin 81 mg tablet,delayed 81 mg PO DAILY 11/24/19 05/23/25 07/01/24 History release (Adult Aspirin Regimen) atorvastatin 40 mg tablet 40 mg PO HS 11/24/19 05/23/25 07/01/24 History escitalopram oxalate 20 mg tablet 10 mg PO DAILY 11/24/19 05/23/25 07/01/24 History levetiracetam 250 mg tablet 250 mg PO Q12H 11/24/19 05/23/25 07/01/24 History (Keppra) melatonin 5 mg capsule 5 mg PO HS 11/24/19 05/23/25 06/30/24 History potassium chloride 20 mEq 30 meq PO BID 11/24/19 05/23/25 07/01/24 History tablet,extended release multivitamin with folic acid 400 1 tablet PO DAILY 03/10/22 05/23/25 07/01/24 History mcg tablet (Daily-Annie (with folic acid)) alprazolam 0.5 mg tablet 0.5 mg PO Q8-12H PRN Anxiety 06/29/23 05/23/25 06/17/24 History ferrous sulfate 325 mg (65 mg 325 mg PO TID 12/02/23 05/23/25 07/01/24 History iron) tablet escitalopram oxalate 10 mg tablet mg 07/18/25 Unknown History levocetirizine 5 mg tablet mg 07/18/25 Unknown History ropinirole 2 mg tablet mg 07/18/25 Unknown History Allergies Allergy/AdvReac Type Severity Reaction Status Date / Time Iodinated Contrast Media Allergy Unknown Rash Verified 07/18/25 16:38 latex Allergy Unknown Unknown Verified 07/18/25 16:38 lorazepam Allergy Unknown Unknown Verified 07/18/25 16:38 adhesive tape AdvReac Rash Verified 07/18/25 16:38 nickel AdvReac Rash Verified 07/18/25 16:38 [facility] Past Medical History Medical History Chronic respiratory failure with hypoxia, on home oxygen therapy 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 Chronic obstructive pulmonary disease Chronic kidney disease, stage 3 Pulmonary embolism (11/2021) Small cell lung cancer Status post chemoradiotherapy. Dyslipidemia Diastolic dysfunction Surgical History Surgical History History of incisional hernia repair History of inguinal hernia repair History of heart artery stent History of cardiac catheterization History of left nephrectomy At age 3, done for unclear reasons. History of abdominal aortic aneurysm repair Family History Family History Sibling Family history of arthritis Lung transplant status, bilateral COPD (chronic obstructive pulmonary disease) Colon cancer Father Melanoma Mother No problems noted. Social History Social History Social History: Wtwoy-yd-wangbkow: Isabela Ponce, friend. Code status: Full code. Smoking packs per day: 1 Smoking cigarettes per day: 20.0 Years smoked: 36 Smoking pack-years: 36.00 Tobacco type: cigarettes Second hand tobacco smoke exposure: No Smoking end date: 09/14/05 Alcohol intake: former Alcohol use details: No alcohol since 2005. Substance use: current Substance use type: prescription drug Lack of Transportation: No Lack of Food: Never True Current Housing: I Have Housing Concerned About Future Housing: No Difficulty Paying Gas/Electric Bills: No Difficulty Paying for Meds: No Currently Unemployed: No Education: High School Diploma/GED Difficulty w/ Childcare or Family Care: No Additional living arrangements comments: Lives in assisted living. Wheelchair-bound due to right-sided deficits from prior CVA. Spiritual care concerns: No Exam Narrative: APPEARANCE: No apparent distress. Head: atraumatic. EYES: EOMI, NOSE: Atraumatic NECK: Trachea midline RESPIRATORY: No increased rate of breathing CARDIOVASCULAR: RRR, ABDOMINAL: Non-distended MUSCULOSKELETAl: No obvious deformities NEURO: Alert. Moving 4/4 extremities SKIN:: Focal exam of the left lower extremity revealed +2 pitting edema. She has significant bruising and erythema over the left lower extremity with a central fluctuant mass. pulses are +2. Cap Refill is normal. PSYCHIATRIC: Normal affect Medical Decision Making MDM Narrative Medical decision making narrative: -Course: 75-year-old female presenting with redness and discoloration to the left lower extremity. She has a tense/fluctuant mass in middle which is causing her significant pain. Differential includes hematoma versus abscess. different options were discussed with the patient but given the unclear etiology we will do an I and D. incision and drainage was performed with evacuation of clotted blood. Pressure dressing was placed. Patient will be discharged on prophylactic Keflex. She has close follow-up with her primary care physician Dr. Donahue. Patient discharged with return precautions. -DDX includes but is not limited to: Hematoma, abscess Discharge Plan Discharge Clinical Impression: Hematoma, Bruise Patient Disposition: Home Condition: Stable Instructions: Antibiotic Form, Hematoma (ED) Additional Instructions: You were seen emergency department for a hematoma. This was drained in the emergency department. Please follow-up with Dr. Donahue at your appointment tomorrow morning. Please complete a course of keflex. Teresa is at high risk for infection, so if she develops worsening redness fevers or swelling please return ED for re-evaluation. Patient Language: Honduran Prescriptions: New cephalexin 500 mg capsule 500 mg PO Q12H Qty: 14 0RF No Action multivitamin with folic acid [Daily-Annie (with folic acid)] 400 mcg tablet 1 tablet PO DAILY ropinirole 2 mg tablet escitalopram oxalate 10 mg tablet levocetirizine 5 mg tablet ferrous sulfate 325 mg (65 mg iron) tablet 325 mg PO TID potassium chloride 20 mEq tablet extended release 30 meq PO BID melatonin 5 mg capsule 5 mg PO HS levetiracetam [Keppra] 250 mg tablet 250 mg PO Q12H escitalopram oxalate 20 mg tablet 10 mg PO DAILY atorvastatin 40 mg tablet 40 mg PO HS aspirin [Adult Aspirin Regimen] 81 mg tablet,delayed release (DR/EC) 81 mg PO DAILY acetaminophen 500 mg capsule 500 mg PO Q6H PRN (Reason: Pain (Scale Score 1-3)) (DME) comp.stocking,knee,long,medium Misc See Rx Instructions .Route Qty: 12 0RF Rx Instructions: As directed furosemide [Lasix] 40 mg tablet 40 mg PO BID Qty: 60 0RF fluticasone propion-salmeterol [Advair HFA] 230-21 mcg/actuation HFA aerosol inhaler See Rx Instructions .ROUTE .COMPLEX Qty: 12 6RF Dose Instruction: Inhale 2 puffs by mouth twice daily. Rx Instructions: Inhale 2 puffs by mouth twice daily. alprazolam 0.5 mg tablet 0.5 mg PO Q8-12H PRN (Reason: Anxiety) pantoprazole 40 mg Tablet,Delayed Release (Dr/Ec) 40 mg PO QAM Qty: 30 0RF Incruse Ellipta 62.5 mcg/actuation blister with device See Rx Instructions .ROUTE .COMPLEX Qty: 30 6RF Dose Instruction: Inhale 1 puff by mouth at the same time daily. Rx Instructions: Inhale 1 puff by mouth at the same time daily. albuterol sulfate 90 mcg/actuation HFA aerosol inhaler 2 puff inhalation Q6H PRN (Reason: shortness of breath or wheezing) Qty: 8.5 3RF Rx Instructions: Use with spacer. Follow-up/Referrals: Salima Donahue MD [Primary Care Provider, Internal Medicine] - 1 Day
[2025-07-18] MEDS: CEPHALEXIN 500 MG CAPSULE PO (21:00)
== END 2025-07-18 21:27 | disposition home or self-care (01) ==
PROVIDERS: Emergency Provider Emergency Medicine; PCP Internal Medicine
DX: S80.12XA Contusion of left lower leg, initial encounter (principal); J96.11 Chronic respiratory failure with hypoxia; J44.9 Chronic obstructive pulmonary disease, unspecified; Z99.81 Dependence on supplemental oxygen; I50.30 Unspecified diastolic (congestive) heart failure; I13.0 Hypertensive heart and chronic kidney disease with heart failure and stage 1 through stage 4 chronic kidney disease, or unspecified chronic kidney disease; N18.30 Chronic kidney disease, stage 3 unspecified; G40.909 Epilepsy, unspecified, not intractable, without status epilepticus; I69.951 Hemiplegia and hemiparesis following unspecified cerebrovascular disease affecting right dominant side; E78.5 Hyperlipidemia, unspecified; F41.8 Other specified anxiety disorders; Z99.3 Dependence on wheelchair; Z95.5 Presence of coronary angioplasty implant and graft; Z85.118 Personal history of other malignant neoplasm of bronchus and lung; Z87.891 Personal history of nicotine dependence; Z86.711 Personal history of pulmonary embolism; Z90.5 Acquired absence of kidney; Z79.82 Long term (current) use of aspirin; Z79.899 Other long term (current) drug therapy; X58.XXXA Exposure to other specified factors, initial encounter
CPT/HCPCS: 10060; 10140; 93971; 99284; A9270

== ENCOUNTER 2025-07-21 16:25 | Emergency (ER) | payer MEDICARE, MEDICAID, SELFPAY ==
[2025-07-21 16:27] VITALS: PULSE 87; RESP 18; TEMP 36.4; O2SAT 98
--- OUTSIDE RECORDS SUMMARY | 2025-07-21 16:28 | XMS_ITS | Clinical Summary ---
Author Organization [facility] Address [address] [place] [address] Care Team Providers Care Industrial Gas Fitter Helper Name Role Phone Salima Donahue MD Primary Care Provider [phone] Gordy Rodriguez MD Unavailable Unavailable Allergies Active [...] 20 mg by mouth daily. Active Umeclidinium Wisner (INCRUSE ELLIPTA) 62.5 MCG/INH AEROSOL POWDER, BREATH ACTIVATED Inhale 1 puff into the lungs daily. Active alendronate 70 MG tablet Take 70 mg by mouth every 7 days. Take in the morning with a full glass of water, on an empty stomach, and do not take anything else by mouth or lie down for the next 30 min. Active vitamin D2, ergocalciferol, 90734 UNITS capsule Take 50,000 Units by mouth [...] cancer 12/09/2017 Coronary artery disease invo lving [place] coronary artery of [place] heart without angina pectoris COPD (chronic obstructive [...] CHOLESTEROL 112 MG/DL 03/01/2019 4:04 AM CDT [facility] Comment:DESIRABLE: <200 TRIGLYCERIDES 59 MG/DL 03/01/2019 4:04 AM CDT [facility] Comment:<150 NORMAL HDL 56 >49 MG/DL 03/01/2019 4:04 AM CDT [facility] LDL (CALCULATED) 44 MG/DL 03/01/20 4:04 AM CDT [facility] Comment:<100 OPTIMAL VLDL CALCULATION 12 MG/DL 03/01/20 4:04 AM CDT [facility] Comment:REFERENCE [place] NOT ESTABLISHED CHOL/HDL RATIO 2.0 03/01/2019 4:04 AM CDT [facility] Comment:REFERENCE [place] NOT ESTABLISHED LDL/HDL 0.8 03/01/2019 4:04 AM CDT [facility] Comment:REFERENCE RANGE NOT ESTABLISHED NON HDL CHOLESTEROL 56 MG/DL 03/01/2019 4:04 AM CDT [facility] Comment:REFERENCE [place] NOT ESTABLISHED 03/01/2019 3:14 AM CDT Dino Frye DO LABORATORY Final Result Performing Organization Address City/State/[facility] Co de Phone Number [facility] [address] [place] [address], [phone] from Last 3 Months or Most Recently Relevant to Health Maintenance Insurance MEDICAID MEDICARE MEDICARE MEDICAID Advance Directives Documents on File Type Date Recorded Patient Medical Insurance Verifier Expl anation Advance Directives and Living Will 03/02/2019 10:16 AM short form poa for health care Advance Directives and Living Will 03/02/2019 9:23 AM POLST Power of Student Assistant 01/17/2019 7:32 AM Advance Directives and [...] 10:34 AM 01/13/2019 3:34 PM Care Teams Industrial Gas Fitter Helper Relationship Specialty Start Date End Date Salima Donahue MD [address] [place] [address] PCP - General INTERNAL MEDICINE 12/10/17 Gordy Rodriguez MD [address] [place] [address] [place] Endless Track Vehicle Supervisor INTERVENTIONAL CARDIOLOGY 09/24/18
--- OUTSIDE RECORDS SUMMARY | 2025-07-21 16:28 | XMS_ITS | Encounter Summary ---
Author Organization [facility] Address [address] [place] [address] Care Team Providers Care Marine Oil Terminal Superintendent Name Role Phone Salima Donahue MD Primary Care Provider [phone] Claude Pinto MD Unavailable [phone] Gordy Rodriguez MD Unavailable Unavailable Encounter Details Date Type Department Care Team (Late st Contact Info) Description 11/28/2017 Abstract [facility] CONVERSION [address] [place] [address] , Generic MD Jenniffer Social History Tobacco [...] filedocumented in this encounter Care Teams Marine Oil Terminal Superintendent Relationship Specialty Start Date End Date Salima Donahue MD [address] [place] [address] PCP - General INTERNAL MEDICINE 12/10/17 Claude Pinto MD [address] [place] [address] [place] Groundman CARDIOVASCULAR DISEASE 12/10/17 09/27/18 Gordy Rodriguez MD [address] [place] [address] [employer] Groundman INTERVENTIONAL CARDIOLOGY 09/24/18 documented as of this encounter
--- OUTSIDE RECORDS SUMMARY | 2025-07-21 16:28 | XMS_ITS | Clinical Summary ---
Author Organization [facility] Address [address] [facility] [place] [address] Care Team Providers Care Mason Liner Name Role Phone Salima Donahue MD Primary [...] 165.1 cm (5' 5) 07/31/2022 2:58 PM BOAT OPERATOR Body Mass Index 23.16 07/31/2022 2:58 PM BOAT OPERATOR Plan of Treatment Upcoming Encounters Date Type Department Care Team (Late st Contact Info) Description 09/28/2025 2:30 PM BOAT OPERATOR Office Visit [facility] Oncology and Hematology - [place] [address] [facility] [address] [place] [address] Dino Farfan MD [address] [facility] [address] [place] [address] Health Maintenance Due Date Last [...] 05/05/2032 Insurance MEDICARE PART A AND B [facility] Care Teams Mason Liner Relationship Specialty Start Date End Date Salima Donahue MD [address] [place] [id number] PCP - General Internal Medicine 07/31/22
--- OUTSIDE RECORDS SUMMARY | 2025-07-21 16:28 | XMS_ITS | Encounter Summary ---
Author Organization [facility] Address [address] [place] [address] Care Team Providers Care Baseball Sewer Hand Name Role Phone Salima Donahue MD Primary Care Provider [phone] Gordy Rodriguez MD Unavailable Unavailable Encounter Details Date Type Department Care Team (Late st Contact Info) Description 02/19/2019 Abstract [facility] CONVERSION [address] [place] [address] , Generic Conversion, Social History Tobacco Use [...] on filedocumented in this encounter Care Teams Baseball Sewer Hand Relationship Specialty Start Date End Date Salima Donahue MD [address] [place] [id number] PCP - General INTERNAL MEDICINE 12/10/17 Gordy Rodriguez MD [address] [place] [address] [place] M[place] Machine Operator Gear INTERVENTIONAL CARDIOLOGY 09/24/18 documented as of this encounter
[2025-07-21 20:00] VITALS: PULSE 85; RESP 18; O2SAT 98
[2025-07-21 21:14] VITALS: BP 130/66; PULSE 87; RESP 18; O2SAT 98
--- NOTE | 2025-07-21 21:17 | ED.GENADULT ---
HPI - General Adult General Chief complaint: Recheck/Abnormal Lab/Rx Stated complaint: L LEG SWELLING S/P PROCEDURE Time Seen by Provider: 07/21/25 20:07 History of Present Illness HPI narrative: This is a 75-year-old female presenting for a wound check. She had a hematoma on her left leg that was drained in our ED several days ago. She then saw her primary care physician put multiple stitches into and then put a compression bandage on it. She started to experience pain and discomfort on bandage in called EMS. EMS remove the compression bandage and her symptoms have resolved. No other symptoms. Related Data Home Medications ?Medication ?Instructions ?Recorded ?Confirmed ?Last Taken ?Type acetaminophen 500 mg capsule 500 mg PO Q6H PRN Pain (Scale 11/24/19 05/23/25 07/01/23 14:15 History Score 1-3) aspirin 81 mg tablet,delayed 81 mg PO DAILY 11/24/19 05/23/25 07/01/24 History release (Adult Aspirin Regimen) atorvastatin 40 mg tablet 40 mg PO HS 11/24/19 05/23/25 07/01/24 History escitalopram oxalate 20 mg tablet 10 mg PO DAILY 11/24/19 05/23/25 07/01/24 History levetiracetam 250 mg tablet 250 mg PO Q12H 11/24/19 05/23/25 07/01/24 History (Keppra) melatonin 5 mg capsule 5 mg PO HS 11/24/19 05/23/25 06/30/24 History potassium chloride 20 mEq 30 meq PO BID 11/24/19 05/23/25 07/01/24 History tablet,extended release multivitamin with folic acid 400 1 tablet PO DAILY 03/10/22 05/23/25 07/01/24 History mcg tablet (Daily-Annie (with folic acid)) alprazolam 0.5 mg tablet 0.5 mg PO Q8-12H PRN Anxiety 06/29/23 05/23/25 06/17/24 History ferrous sulfate 325 mg (65 mg 325 mg PO TID 12/02/23 05/23/25 07/01/24 History iron) tablet escitalopram oxalate 10 mg tablet mg 07/18/25 Unknown History levocetirizine 5 mg tablet mg 07/18/25 Unknown History ropinirole 2 mg tablet mg 07/18/25 Unknown History Allergies Allergy/AdvReac Type Severity Reaction Status Date / Time Iodinated Contrast Media Allergy Unknown Rash Verified 07/21/25 16:26 latex Allergy Unknown Unknown Verified 07/21/25 16:26 lorazepam Allergy Unknown Unknown Verified 07/21/25 16:26 adhesive tape AdvReac Rash Verified 07/21/25 16:26 nickel AdvReac Rash Verified 07/21/25 16:26 [facility] Past Medical History Medical History Chronic respiratory failure with hypoxia, on home oxygen therapy 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 Chronic obstructive pulmonary disease Chronic kidney disease, stage 3 Pulmonary embolism (11/2021) Small cell lung cancer Status post chemoradiotherapy. Dyslipidemia Diastolic dysfunction Surgical History Surgical History History of incisional hernia repair History of inguinal hernia repair History of heart artery stent History of cardiac catheterization History of left nephrectomy At age 3, done for unclear reasons. History of abdominal aortic aneurysm repair Family History Family History Sibling Family history of arthritis Lung transplant status, bilateral COPD (chronic obstructive pulmonary disease) Colon cancer Father Melanoma Mother No problems noted. Social History Social History Social History: Jjifl-ab-ahurvmge: Isabela Ponce, friend. Code status: Full code. Smoking packs per day: 1 Smoking cigarettes per day: 20.0 Years smoked: 36 Smoking pack-years: 36.00 Tobacco type: cigarettes Second hand tobacco smoke exposure: No Smoking end date: 09/14/05 Alcohol intake: former Alcohol use details: No alcohol since 2005. Substance use: current Substance use type: prescription drug Lack of Transportation: No Lack of Food: Never True Current Housing: I Have Housing Concerned About Future Housing: No Difficulty Paying Gas/Electric Bills: No Difficulty Paying for Meds: No Currently Unemployed: No Education: High School Diploma/GED Difficulty w/ Childcare or Family Care: No Additional living arrangements comments: Lives in assisted living. Wheelchair-bound due to right-sided deficits from prior CVA. Spiritual care concerns: No Exam Narrative: APPEARANCE: No apparent distress. Head: atraumatic. EYES: EOMI, NOSE: Atraumatic NECK: Trachea midline RESPIRATORY: No increased rate of breathing CARDIOVASCULAR: RRR, ABDOMINAL: Non-distended MUSCULOSKELETAl: No obvious deformities NEURO: Alert. Moving 4/4 extremities SKIN:: Focal exam of the left leg showed a well-healed incision that has been repaired from sutures since it was incised several days ago. There is no signs of infection, hematoma or fluctuance. Foot is well perfused. PSYCHIATRIC: Normal affect Course Vital Signs Vital signs: Vital Signs Temperature 97.6 F 07/21/25 16:27 Pulse Rate 87 07/21/25 16:27 Respiratory Rate 18 07/21/25 16:27 Pulse Oximetry 98 07/21/25 16:27 Temperature 97.6 F 07/21/25 16:27 Pulse Rate 87 07/21/25 21:14 Respiratory Rate 18 07/21/25 21:14 Blood Pressure 130/66 07/21/25 21:14 Pulse Oximetry 98 07/21/25 21:14 Medical Decision Making MDM Narrative Medical decision making narrative: -Course: 75-year-old female presenting for a wound check. She is having discomfort in her leg that resolved after the compression bandage was removed. The wound itself looks like it is healing well without signs of infection. She will be discharged follow-up with primary care physician. -DDX includes but is not limited to: Wound infection, compression bandage too tight, Vital Signs Vital Signs: Vital Signs Temperature 97.6 F 07/21/25 16:27 Pulse Rate 87 07/21/25 16:27 Respiratory Rate 18 07/21/25 16:27 Pulse Oximetry 98 07/21/25 16:27 Temperature 97.6 F 07/21/25 16:27 Pulse Rate 87 07/21/25 21:14 Respiratory Rate 18 07/21/25 21:14 Blood Pressure 130/66 07/21/25 21:14 Pulse Oximetry 98 07/21/25 21:14 Discharge Plan Discharge Clinical Impression: Visit for wound check Patient Disposition: Home Condition: Stable Instructions: Antibiotic Form, Acute Wounds (ED) Additional Instructions: You were seen for a wound check. Your wound is healing well. Please follow-up with Dr. Donahue for suture removal as directed by Dr. Yip. Patient Language: Turkish Prescriptions: No Action multivitamin with folic acid [Daily-Annie (with folic acid)] 400 mcg tablet 1 tablet PO DAILY ropinirole 2 mg tablet escitalopram oxalate 10 mg tablet levocetirizine 5 mg tablet ferrous sulfate 325 mg (65 mg iron) tablet 325 mg PO TID potassium chloride 20 mEq tablet extended release 30 meq PO BID melatonin 5 mg capsule 5 mg PO HS levetiracetam [Keppra] 250 mg tablet 250 mg PO Q12H escitalopram oxalate 20 mg tablet 10 mg PO DAILY atorvastatin 40 mg tablet 40 mg PO HS aspirin [Adult Aspirin Regimen] 81 mg tablet,delayed release (DR/EC) 81 mg PO DAILY acetaminophen 500 mg capsule 500 mg PO Q6H PRN (Reason: Pain (Scale Score 1-3)) (DME) comp.stocking,knee,long,medium Misc See Rx Instructions .Route Qty: 12 0RF Rx Instructions: As directed furosemide [Lasix] 40 mg tablet 40 mg PO BID Qty: 60 0RF fluticasone propion-salmeterol [Advair HFA] 230-21 mcg/actuation HFA aerosol inhaler See Rx Instructions .ROUTE .COMPLEX Qty: 12 6RF Dose Instruction: Inhale 2 puffs by mouth twice daily. Rx Instructions: Inhale 2 puffs by mouth twice daily. alprazolam 0.5 mg tablet 0.5 mg PO Q8-12H PRN (Reason: Anxiety) pantoprazole 40 mg Tablet,Delayed Release (Dr/Ec) 40 mg PO QAM Qty: 30 0RF cephalexin 500 mg capsule 500 mg PO Q12H Qty: 14 0RF Incruse Ellipta 62.5 mcg/actuation blister with device See Rx Instructions .ROUTE .COMPLEX Qty: 30 6RF Dose Instruction: Inhale 1 puff by mouth at the same time daily. Rx Instructions: Inhale 1 puff by mouth at the same time daily. albuterol sulfate 90 mcg/actuation HFA aerosol inhaler 2 puff inhalation Q6H PRN (Reason: shortness of breath or wheezing) Qty: 8.5 3RF Rx Instructions: Use with spacer. Follow-up/Referrals: Salima Donahue MD [Primary Care Provider, Internal Medicine]
== END 2025-07-21 23:41 ==
PROVIDERS: Emergency Provider Emergency Medicine; PCP Internal Medicine
DX: S80.12XD Contusion of left lower leg, subsequent encounter (principal); J96.11 Chronic respiratory failure with hypoxia; Z99.81 Dependence on supplemental oxygen; I50.30 Unspecified diastolic (congestive) heart failure; I11.0 Hypertensive heart disease with heart failure; I69.951 Hemiplegia and hemiparesis following unspecified cerebrovascular disease affecting right dominant side; E78.5 Hyperlipidemia, unspecified; G40.909 Epilepsy, unspecified, not intractable, without status epilepticus; J44.9 Chronic obstructive pulmonary disease, unspecified; F41.8 Other specified anxiety disorders; Z99.3 Dependence on wheelchair; Z95.5 Presence of coronary angioplasty implant and graft; Z86.711 Personal history of pulmonary embolism; Z85.118 Personal history of other malignant neoplasm of bronchus and lung; Z87.891 Personal history of nicotine dependence; Z90.5 Acquired absence of kidney; Z79.82 Long term (current) use of aspirin; Z79.899 Other long term (current) drug therapy; X58.XXXD Exposure to other specified factors, subsequent encounter
CPT/HCPCS: 99281

== ENCOUNTER 2025-07-30 14:13 | Inpatient (IN) | payer MEDICARE, MEDICAID, SELFPAY ==
--- OUTSIDE RECORDS SUMMARY | 2013-03-23 03:59 | XMS_ITS | Continuity of Care Document ---
Author Organization [facility], [facility] TD Address [address] [place] [address] Phone Care Team Providers Care Social Media Marketer Name Role Phone Faina ROGERS, Heidi Unavailable Unavailable Allergies, Adverse Reactions, Alerts Substance Reaction Status Criticality acyclovir Unknown Active No Information Medications Medication Instructions Dosage Effective Dates (start - stop) Status Comments VITAMINS (unknown strength) Not Available - Active ALLOPURINOL (unknown strength) Not Available - Active CITALOPRAM HBR (unknown strength) Not Available - Active ALPRAZOLAM (unknown strength) Not Available - Active XANAX (unknown strength) Not Available - Active MAGNESIA (unknown strength) Not Available - Active METOPROLOL SUCCINATE (unknown strength) Not Available - Active LOVASTATIN (unknown strength) Not Available - Active B12 (unknown strength) Not Available - Act charissa ASPIR 81 (unknown strength) Not Available - Active SPIRIVA HANDIHALER (unknown strength) Not Available - Active CALCIO HUMAIRA (unknown strength) Not Available - Active VITAMIN D2 (unknown strength) Not Available - Active POTASSIUM (unknown strength) Not Available - Active Procedures Procedure Date EYE EXAM ESTABLISHED PATIENT, MEDICAL Mc REFRACTION OPTIONAL UPDATE DU VISUAL FIELD Scan Image/ OCT, Glaucoma EYE EXAM ESTABLISHED PATIENT, MEDICAL Se DU VISUAL FIELD, BI-LATERAL Scan Image/ OCT, Glaucoma SPECIAL REPORTS OR FORMS EYE EXAM ESTABLISHED PATIENT, MEDICAL Ma DU VISUAL FIELD, BI-LATERAL Scan Image/ OCT, [...] Diagnoses Date Provider Providers Copied on Encounter [facility], [address] [place] [address], [id number] , tel:[phone] [facility] No Information 3 Faina Gordon. [address] [place] [address], [id number], [place]. tel:[phone] [facility], [address] [place] [address], [id number] , [place] tel:[phone] [facility] Papilledema, unspecifiedOpen angle with borderline glaucoma findingsOther dissociated deviation of eye movementsNystagmus, unspecifiedOpen angle with borderline glaucoma findings 3 Ruben Newell. [address] [place] [address], [address], [place], [place], [id number], [place]. tel:[phone] Referring Provider: Norman Gould, [address] [place] [address], [address] . tel:[phone] [facility], [address] [place] [address], [id number] , [place] tel:[phone] [facility] Macular puckering of retinaPapilledema, unspecifiedOther dissociated deviation of eye movements May-0 3 Ruben Newell. [address] [place] [address], [address] [facility], [place], [place], [id number], [place]. tel:[phone] [facility], [address] [place] [address], [id number] , [place] tel:[phone] [facility] Nystagmus, unspecifiedAnatomic al narrow angle borderline glaucomaLens replaced by other meansPapilledema, unspecifiedOther dissociated deviation of eye movementsMacular puckering of retinaSenile nuclear sclerosisEpilepsy, unspecifiedNystagmu s, unspecified Sep-2 2 Ruben Newell. [address] [place] [address], [place], [place], [id number], [place]. tel:[phone] Referring Provider: Reece Perez, [address] [place] [address], [place], [address] . tel:[phone] [facility], [address] [place] [address], [id number] , [place] tel:[phone] [facility] No Information 2 Ruben Newell. [address] [place] [address], [place], [place], [id number], [place]. tel:[phone] Referring Provider: Norman Gould, [address] [place] [address], [address] . tel:[phone] [facility], [address] [place] [address], [id number] , [place] tel:[phone] [facility] Papilledema, unspecifiedOther dissociated deviation of eye movements Nov-0 2 Ruben Newell. [address] [place] [address], [address] [facility], [place], [id number], [place]. tel:[phone] Referring Provider: Reece Perez, [address] [place] [address] [address] [facility], [place], [place], [address] [place] [address] . tel:[phone] [facility], [address] [place] [address], [address] [place] [address] , tel: [phone] [facility] No Information 2 Lee Norman. [address] [place] [address], [address] [place] [address], . tel:[phone] Referring Provider: Norman Gould, [address] [place] [address], [address] [place] [address] . tel:[phone] [facility], [address] [place] [address], [address] [place] [address] , tel: [phone] [facility] No Information 2 Knupp Reece. [address] [place] [address], [address], [address] [place] [address], . tel:[phone] Referring Provider: Norman Gould, [address] [place] [address], [address] [place] [address] . tel:[phone] [facility], [address] [place] [address], [address] [place] [address] , tel: [phone] [facility] Papilledema, unspecifiedCATOther dissociated deviation of eye movementsEpilepsy, unspecified Dec- 1 Knupp Reece. [address] [place] [address], [address], [place], [address] [place] [address], . tel:[phone] Referring Provider: Norman Mosesatia Bryanna, [address] [place] [address], [address] [place] [address] . tel:[phone] [facility], [address] [place] [address], [address] [place] [address] , tel: [phone] [facility] Macular puckering of retinaPapilledema, unspecifiedSenile nuclear sclerosisSenile nuclear sclerosisOther dissociated deviation of eye movementsOther dissociated deviation of eye movements Dec- 1 Knupp Reece. [address] [place] [address], [address] [facility], [place], [id number], [place]. tel:[phone] [facility], [address] [place] [address], [id number] , [place] tel:[phone] [facility] Macular puckering of retinaPapilledema, unspecifiedPapilled demetrio, unspecifiedMacular puckering of retina Oct-2 1 Ruben Newell. [address] [place] [address], [address], [place], [place], [id number], [place]. tel:[phone] Referring Provider: Norman Gould, [address] [place] [address], [address] . tel:[phone] [facility], [address] [place] [address], [id number] , [place] tel:[phone] [facility] No Information Jun-2 1 Ruben Newell. [address] [place] [address], [place] [address], [place], [id number], [place]. [phone] Referring Provider: Norman Gould, [address] [place] [address], [address] . tel:[phone] [facility], [address] [place] [address], [id number] , [place] tel:[phone] [facility] No Information Jun- 1 Lee Austin. [address] [place] [address], [id number], [place]. tel:[phone] Referring Provider: Norman Gould, [address] [place] [address], [address] . tel:[phone] [facility], [address] [place] [address], [id number] , [place] tel:[phone] [facility] No Information Apr- 1 Ruben Newell. [address] [place] [address], [address], [place], [place], [id number], [place]. tel:[phone] Referring Provider: Reece Perez, [address] [facility] [address], [place], [address] . tel:[phone] Family History Family Member Type Diagnosis Age At Onset Problem (finding) No Family history of Re spiratory Disease Mother Problem (finding) HBP Grandmother Problem (finding) stroke Problem (finding) No Family history of As thma Problem (finding) No Family history of St rabismus Problem (finding) No Family hist ory of Macular Degeneration Problem (finding) No Family history of Gl aucoma Problem (finding) No Family history of He art Disease Problem (finding) No Family history of Di abetes mellitus Father Problem (finding) cataract Problem (finding) No Family history of Ar thritis Problem (finding) No Family history of Re tinal Disorders Payers Payer name Insurance type Covered republican ID Authoriza tion(s) [place] [employer] [facility] [id number] Social History Type Description Quantity Date Captured [...] weeks I will refer to university based neuro-finishing area operator for further evaluation and care. She will remain under care of Dr. Kerri Lozano MD as well (local neurologist). Related to Papilledema, unspecified - Repeat visual field in 6 month s OU. Related to Central 30-2 test performed. - PRN Related to Papil ledema, unspecified [...] advised pt and family that follow-up with neuro-finishing area operator [place] setting is necessary per her new development with nystagmus and change in measurements found at todays exam. This will be arranged by our office. Dr. Miranda will be leaving the area permanently soon so patient will continue the new MD as needed. Educational materials provided:none needed. Related to Papilledema, unspecified - Return in 01/21/13 with KARINA for [...] from previous papilledema. Letter Dr. Callie MD [facility] Neurology, Dr. Godfrey MD PCP done. [...] Letter Dr. Hebert Lozano & Dr Rajan ([facility] Neuro), Dr. Donahue, done Related to Papilledema, unspecified - 3 mo c KARINA/VF and OCT KARINA will dilate Related to CAT FU bilat Papilledema skew dev 2ndary to [...] Letter Dr. Hebert Lozano & Dr Rajan ([facility] Neuro), Dr. Donahue, done Related to CAT - 4-6 weeks for HVF, Refract, KARINA to dilate Related to Papilledema, unspecified Papilledema, Recurre nt since 05/12/11. OCT demonstrates increased thcikness OU (OD 96->107, OS99->209). Decreased vision OU (20/25->20/30 OD 20/25->20/50 OS) Recurrence of diplopia since 05/12 (2LHT) pc/IOL OU ERM OS - 1. Pt. to be admitted at [facility]. for recurrence of papilledema, diplopia (LHT) in the presence of encephalopahty of unknown etiology. Original improved after high dose steroids. Will be done thru a direct admit to Dr. Musa (Neurology at [facility]). Spoke with LEIGH Resident broadcast operations engineer who will write the orders (pager [phone]) Pt. given order for admission under Dr. Musa.LETTER TO CALLIE, done will be faxed as soon as typed 07/09. Related to Papilledema, unspecified Assessments Type Assessment Date No Information Patient Care Teams Name Effective Dates (start - stop) Status Members No Information
--- OUTSIDE RECORDS SUMMARY | 2013-03-23 03:59 | XMS_ITS | Continuity of Care Document ---
Author Organization [facility], L TD Address [address] [place] [address] Phone Care Team Providers Care Blood Tester Name Role Phone Faina ROGERS, Heidi Unavailable [...] Diagnoses Date Provider Providers Copied on Encounter [facility], [address] [place] [address], [id number] , tel:[phone] [facility] No Information 3 Faina Gordon. [address] [place] [address], [id number], [place]. tel:[phone] [facility], [address] [place] [address], [id number] , [place] tel:[phone] [facility] Papilledema, unspecifiedOpen angle with borderline glaucoma findingsOther dissociated deviation of eye movementsNystagmus, unspecifiedOpen angle with borderline glaucoma findings 3 Ruben Newell. [address] [place] [address], [address], [place], [place], [id number], [place]. tel:[phone] Referring Provider: Norman Gould, [address] [place] [address], [address] . tel:[phone] [facility], [address] [place] [address], [id number] , [place] tel:[phone] [facility] Macular puckering of retinaPapilledema, unspecifiedOther dissociated deviation of eye movements May-0 3 Ruben Newell. [address] [place] [address], [address], [place], [place], [id number], [place]. tel:[phone] [facility], [address] [place] [address], [id number] , [place] tel:[phone] [facility] Nystagmus, unspecifiedAnatomic al narrow angle borderline glaucomaLens replaced by other meansPapilledema, unspecifiedOther dissociated deviation of eye movementsMacular puckering of retinaSenile nuclear sclerosisEpilepsy, unspecifiedNystagmu s, unspecified Sep-2 2 Ruben Newell. [address] [place] [address], [place], [place], [id number], [place]. tel:[phone] Referring Provider: Reece Perez, [address] [place] [address], [place], [address] . tel:[phone] [facility], [address] [place] [address], [id number] , [place] tel:[phone] [facility] No Information 2 Ruben Newell. [address] [place] [address], [place], [place], [id number], [place]. tel:[phone] Referring Provider: Norman Gould, [address] [place] [address], [address] . tel:[phone] [facility], [address] [place] [address], [id number] , [place] tel:[phone] [facility] Papilledema, unspecifiedOther dissociated deviation of eye movements Nov-0 2 Ruben Newell. [address] [place] [address], [address], [place], [place], [id number], [place]. tel:[phone] Referring Provider: Reece Perez, [address] [place] [address], [place], [place], [address] [place] [address] . tel:[phone] [facility], [address] [place] [address], [address] [place] [address] , tel: [phone] [facility] No Information 2 Lee Norman. [address] [place] [address], [address] [place] [address], . tel:[phone] Referring Provider: Norman Gould, [address] [place] [address], [address] [place] [address] . tel:[phone] [facility], [address] [place] [address], [address] [place] [address] , tel: [phone] [facility] No Information 2 Knupp Reece. [address] [place] [address], [address], [address] [place] [address], . tel:[phone] Referring Provider: Norman Gould, [address] [place] [address], [address] [place] [address] . tel:[phone] [facility], [address] [place] [address], [address] [place] [address] , tel: [phone] [facility] Papilledema, unspecifiedCATOther dissociated deviation of eye movementsEpilepsy, unspecified Dec- 1 Knupp Reece. [address] [place] [address], [address], [place], [address] [place] [address], . tel:[phone] Referring Provider: Norman Mosesatia Bryanna, [address] [place] [address], [address] [place] [address] . tel:[phone] [facility], [address] [place] [address], [address] [place] [address] , tel: [phone] [facility] Macular puckering of retinaPapilledema, unspecifiedSenile nuclear sclerosisSenile nuclear sclerosisOther dissociated deviation of eye movementsOther dissociated deviation of eye movements Dec- 1 Knupp Reece. [address] [place] [address], [address], [place], [place], [id number], [place]. tel:[phone] [facility], [address] [place] [address], [id number] , [place] tel:[phone] [facility] Macular puckering of retinaPapilledema, unspecifiedPapilled demetrio, unspecifiedMacular puckering of retina Oct-2 1 Ruben Newell. [address] [place] [address], [address], [place], [place], [id number], [place]. tel:[phone] Referring Provider: Norman Gould, [address] [place] [address], [address] . tel:[phone] [facility], [address] [place] [address], [id number] , [place] tel:[phone] [facility] No Information Jun-2 1 Ruben Newell. [address] [place] [address], [place] [address], [place], [place], [id number], [place]. [phone] Referring Provider: Norman Gould, [address] [place] [address], [address] . tel:[phone] [facility], [address] [place] [address], [id number] , [place] tel:[phone] [facility] No Information Jun- 1 Lee Austin. [address] [place] [address], [id number], [place]. tel:[phone] Referring Provider: Norman Gould, [address] [place] [address], [address] . tel:[phone] [facility], [address] [place] [address], [id number] , [place] tel:[phone] [facility] No Information Apr- 1 Ruben Newell. [address] [place] [address], [address], [place], [place], [id number], [place]. tel:[phone] Referring Provider: Reece Perez, [address], [place], [address] . tel:[phone] Family History Family Member Type Diagnosis Age [...] Disease Payers Payer name Insurance type Covered republican ID Authoriza tion(s) [place] [facility] [id number] Social History Type Description Quantity Date Captured [...] weeks I will refer to university based neuro-lawn sprinkler installer for further evaluation and care. She will [...] advised pt and family that follow-up with neuro-lawn sprinkler installer at a [place] setting is necessary per her new development [...] from previous papilledema. Letter Dr. Callie MD [facility] Neurology, Dr. Godfrey MD PCP done. Related [...] Letter Dr. Hebert Lozano & Dr Rajan ([facility] Neuro), Dr. Donahue, done Related to Papilledema, [...] Letter Dr. Hebert Lozano & Dr Rajan ([facility] Neuro), Dr. Donahue, done Related to CAT - 4-6 weeks for HVF, Refract, KARINA to dilate Related to Papilledema, unspecified Papilledema, Recurre nt since 05/12/11. OCT demonstrates increased thcikness OU (OD 96->107, OS99->209). Decreased vision OU (20/25->20/30 OD 20/25->20/50 OS) Recurrence of diplopia since 05/12 (2LHT) pc/IOL OU ERM OS - 1. Pt. to be admitted at [facility]. for recurrence of papilledema, diplopia (LHT) in the presence of encephalopahty of unknown etiology. Original improved after high dose steroids. Will be done thru a direct admit to Dr. Musa (Neurology at [facility]). Spoke with LEIGH Resident primary special education teacher who will write the orders (pager [phone]) Pt. given order for admission under Dr. Musa.LETTER TO CALLIE, done will be faxed as soon as typed 07/09. Related to Papilledema, unspecified Assessments Type Assessment Date No Information Patient Care Teams Name Effective Dates (start - stop) Status Members No Information
--- OUTSIDE RECORDS SUMMARY | 2013-03-23 03:59 | XMS_ITS | Continuity of Care Document ---
Author Organization [facility], L TD Address [address] [place] [address] Phone Care Team Providers Care Radiology Tech Name Role Phone Faina ROGERS, Heidi Unavailable [...] Diagnoses Date Provider Providers Copied on Encounter [facility], [address] [place] [address], [id number] , tel:[phone] [facility] No Information 3 Faina Gordon. [address] [place] [address], [id number], [place]. tel:[phone] [facility], [address] [place] [address], [id number] , [place] tel:[phone] [facility] Papilledema, unspecifiedOpen angle with borderline glaucoma findingsOther dissociated deviation of eye movementsNystagmus, unspecifiedOpen angle with borderline glaucoma findings 3 Ruben Newell. [address] [place] [address], [address], [place], [place], [id number], [place]. tel:[phone] Referring Provider: Norman Gould, [address] [place] [address], [address] . tel:[phone] [facility], [address] [place] [address], [id number] , [place] tel:[phone] [facility] Macular puckering of retinaPapilledema, unspecifiedOther dissociated deviation of eye movements May-0 3 Ruben Newell. [address] [place] [address], [address] [facility], [place], [place], [id number], [place]. tel:[phone] [facility], [address] [place] [address], [id number] , [place] tel:[phone] [facility] Nystagmus, unspecifiedAnatomic al narrow angle borderline glaucomaLens replaced by other meansPapilledema, unspecifiedOther dissociated deviation of eye movementsMacular puckering of retinaSenile nuclear sclerosisEpilepsy, unspecifiedNystagmu s, unspecified Sep-2 2 Ruben Newell. [address] [place] [address], [place], [place], [id number], [place]. tel:[phone] Referring Provider: Reece Perez, [address] [place] [address], [place], [address] . tel:[phone] [facility], [address] [place] [address], [id number] , [place] tel:[phone] [facility] No Information 2 Ruben Newell. [address] [place] [address], [place], [place], [id number], [place]. tel:[phone] Referring Provider: Norman Gould, [address] [place] [address], [address] . tel:[phone] [facility], [address] [place] [address], [id number] , [place] tel:[phone] [facility] Papilledema, unspecifiedOther dissociated deviation of eye movements Nov-0 2 Ruben Newell. [address] [place] [address], [address] [facility], [place], [place], [id number], [place]. tel:[phone] Referring Provider: Reece Perez, [address] [place] [address] [address] [facility], [place], [place], [address] [place] [address] . tel:[phone] [facility], [address] [place] [address], [address] [place] [address] , tel: [phone] [facility] No Information 2 Lee Norman. [address] [place] [address], [address] [place] [address], . tel:[phone] Referring Provider: Norman Gould, [address] [place] [address], [address] [place] [address] . tel:[phone] [facility], [address] [place] [address], [address] [place] [address] , tel: [phone] [facility] No Information 2 Knupp Reece. [address] [place] [address], [address], [address] [place] [address], . tel:[phone] Referring Provider: Norman Gould, [address] [place] [address], [address] [place] [address] . tel:[phone] [facility], [address] [place] [address], [address] [place] [address] , tel: [phone] [facility] Papilledema, unspecifiedCATOther dissociated deviation of eye movementsEpilepsy, unspecified Dec- 1 Knupp Reece. [address] [place] [address], [address], [place], [address] [place] [address], . tel:[phone] Referring Provider: Norman Mosesatia Bryanna, [address] [place] [address], [address] [place] [address] . tel:[phone] [facility], [address] [place] [address], [address] [place] [address] , tel: [phone] [facility] Macular puckering of retinaPapilledema, unspecifiedSenile nuclear sclerosisSenile nuclear sclerosisOther dissociated deviation of eye movementsOther dissociated deviation of eye movements Dec- 1 Knupp Reece. [address] [place] [address], [address] [facility], [place], [id number], [place]. tel:[phone] [facility], [address] [place] [address], [id number] , [place] tel:[phone] [facility] Macular puckering of retinaPapilledema, unspecifiedPapilled demetrio, unspecifiedMacular puckering of retina Oct-2 1 Ruben Newell. [address] [place] [address], [address], [place], [place], [id number], [place]. tel:[phone] Referring Provider: Norman Gould, [address] [place] [address], [address] . tel:[phone] [facility], [address] [place] [address], [id number] , [place] tel:[phone] [facility] No Information Jun-2 1 Ruben Newell. [address] [place] [address], [place] [address], [place], [place], [id number], [place]. [phone] Referring Provider: Norman Gould, [address] [place] [address], [address] . tel:[phone] [facility], [address] [place] [address], [id number] , [place] tel:[phone] [facility] No Information Jun- 1 Lee Austin. [address] [place] [address], [id number], [place]. tel:[phone] Referring Provider: Norman Gould, [address] [place] [address], [address] . tel:[phone] [facility], [address] [place] [address], [id number] , [place] tel:[phone] [facility] No Information Apr- 1 Ruben Newell. [address] [place] [address], [address], [place], [place], [id number], [place]. tel:[phone] Referring Provider: Reece Perez, [address] [facility] [address], [place], [address] . tel:[phone] Family History Family Member Type Diagnosis Age [...] Disorders Payers Payer name Insurance type Covered democrat ID Authoriza tion(s) [place] [employer] [facility] [id number] Social History Type Description Quantity Date Captured [...] weeks I will refer to university based neuro-school speech language pathologist for further evaluation and care. She will [...] advised pt and family that follow-up with neuro-school speech language pathologist at a [place] setting is necessary per her new development [...] from previous papilledema. Letter Dr. Callie MD [facility] Neurology, Dr. Godfrey MD PCP done. [...] Letter Dr. Hebert Lozano & Dr Rajan ([facility] Neuro), Dr. Donahue, done Related to [...] Letter Dr. Hebert Lozano & Dr Rajan ([facility] Neuro), Dr. Donahue, done Related to CAT - 4-6 weeks for HVF, Refract, KARINA to dilate Related to Papilledema, unspecified Papilledema, Recurre nt since 05/12/11. OCT demonstrates increased thcikness OU (OD 96->107, OS99->209). Decreased vision OU (20/25->20/30 OD 20/25->20/50 OS) Recurrence of diplopia since 05/12 (2LHT) pc/IOL OU ERM OS - 1. Pt. to be admitted at [facility]. for recurrence of papilledema, diplopia (LHT) in the presence of encephalopahty of unknown etiology. Original improved after high dose steroids. Will be done thru a direct admit to Dr. Musa (Neurology at [facility]). Spoke with LEIGH Resident qa automation architect who will write the orders (pager [phone]) Pt. given order for admission under Dr. Musa.LETTER TO CALLIE, done will be faxed as soon as typed 07/09. Related to Papilledema, unspecified Assessments Type Assessment Date No Information Patient Care Teams Name Effective Dates (start - stop) Status Members No Information
[2025-07-30] VITALS (25 sets, daily range): BP systolic 116–150; BP diastolic 57–98; PULSE 88–109; RESP 18–33; TEMP 36.8–38; O2SAT 97–100; BMI 25.0
--- NOTE | ~2025-07-30 | CT_ITS ---
EXAMINATION:CT diagnostic chest wo con DATE: 07/31/2025 13:48 INDICATION: Pneumonia COPD TECHNIQUE: Computed tomography (CT) of the chest was performed without intravenous contrast. The dose-length product (DLP) was 207.44 mGy-cm. COMPARISON: None. FINDINGS: Patchy consolidative changes are developing in the medial segment of the right middle lobe. Mild scattered fibrotic and atelectatic appearing changes throughout the lower lobes bilaterally. Moderately severe centrilobular emphysematous changes especially in the upper lobes. No new nodules or masses seen. Heart and great vessels stable in size with no cardiomegaly or large pericardial effusion/bulky lymphadenopathy. Coronary artery calcification and/or stenting. 50% compression deformity of T6 similar to the previous exam. IMPRESSION: Small area of consolidation in the medial segment of the right middle lobe consistent with early pneumonia. Finding should be followed radiographically until clear. Reviewed, dictated and finalized at location A. THERAPIST IMPRESSION: Small area of consolidation in the medial segment of the right midd le lobe consistent with early pneumonia. Finding should be followed radiographi adrienne until clear.
--- NOTE | ~2025-07-30 | XR_ITS ---
EXAMINATION: XR chest 2V, 07/30/2025 14:55 STRAP STITCHER HISTORY: SOB COMPARISON: No comparisons available. Technique: 2 views obtained. Findings: COPD changes noted. Small basilar infiltrates. No pneumothorax. Heart is normal size. Small hiatal hernia. Bony thorax no acute abnormality. Impression: Early bilateral pneumonia Reviewed, dictated and finalized at location P. P STITCHER Impression: Early bilateral pneumonia
--- NOTE | ~2025-07-30 | US_ITS ---
EXAMINATION: US venous doppler [facility], 08/01/2025 7:14 [employer] WORK[employer] HISTORY: swelling COMPARISON: None Technique: Valente-scale and color Doppler images were attempted of the lower saphenofemoral junction, common femoral vein,superficial femoral vein, proximal deep femoral vein, proximal deep femoral vein, popliteal vein and posterior tibial veins. Findings: Deep Venous System:Normal flow, augmentation and compressibility. No echogenic thrombus identified. Superficial Venous SystemNo superficial thrombophlebitis. Soft tissues: Soft tissues are unremarkable. Impression: Negative for DVT. Reviewed, dictated and finalized at location P. HOUSE WORKER Impression: Negative for DVT.
--- NOTE | 2025-07-30 14:24 | ECG_ITS ---
Test Date: 2025-07-30 14:27:28 Measurements Intervals [place] Rate: 87 P: 75 MN: 165 QRS: 38 QRSD: 92 T: 61 QT: 357 QTc: 431 Interpretive Statements SINUS RHYTHM NONSPECIFIC T-WAVE ABNORMALITY No previous ECG available for comparison Electronically Signed On 07-31-2025 00:09:26 SHAPING MACHINE TENDER by Alexei Epps D.O
[2025-07-30 14:41] LABS: Hematocrit 35.4 % (37.0-47.0); Hemoglobin 10.6 g/dL (12.0-15.0); Immature Granulocyte Percent A 0.5 % (0-0.5); Lymphocytes Absolute Auto 1.02 K/mm3 (0.9-3.2); Mean Corpuscular HGB Conc 29.9 g/dl (32-36); Mean Corpuscular Hemoglobin 28.7 pg (26-34); Mean Corpuscular Volume 95.9 fl (80-100); Nucleated Red Blood Cells Absolute Auto 0.000 K/mm3 (0.0-0.012); Nucleated Red Blood Cells Perc 0.0 % (0.0-0.2); Platelet Count Result 270 k/mm3 (150-375); Red Blood Count 3.69 M/mm3 (4.2-5.4); White Blood Count 15.5 K/mm3 (4.5-10.0)
[2025-07-30 14:50] LABS: Hypochromasia 1+; Schistocytes None Seen; Stomatocytes 1+
[2025-07-30 14:54] LABS: Alanine Aminotransferase 29 U/L (6-35); Albumin Level 3.6 g/dL (3.5-5.1); Alkaline Phosphatase 65 U/L (38-126); Aspartate Amino Transferase 36 U/L (14-36); Bilirubin,Total 0.5 mg/dL (0.2-1.3); Blood Urea Nitrogen 22 mg/dL (7-17); Calcium 9.3 mg/dL (8.4-10.2); Chloride 95 mmol/L (98-107); Estimated CRCL calculation 40 ml/min; Estimated Glomerular Filt Rate 48; Glucose 110 mg/dL (65-110); Potassium 4.4 mmol/L (3.4-5.0); Sodium 141 mmol/L (137-145); Total Protein 6.7 g/dL (6.3-8.2)
[2025-07-30] MEDS: IPRATROPIUM 0.5 MG/ALBUTEROL SULFATE 2.5 MG (BASE) AMPUL.NEB 3 ML INHALATION ×6 (15:01→23:06)
--- NOTE | 2025-07-30 15:03 | ED.URI ---
HPI - URI/Sore Throat General Chief Complaint: Upper Respiratory Infection Stated Complaint: cough, body aches Time Seen by Provider: 07/30/25 14:39 Source: patient and EMS Mode of arrival: EMS Limitations: no limitations History of Present Illness HPI Narrative: This is a 75-year-old female with history of COPD, hypertension, lung cancer, CHF, CKD who presents the ED for shortness of breath. Patient states that for the past couple days she has been having upper respiratory type symptoms with worsening shortness of breath. She does wear 3 L of oxygen at baseline. She has an inhaler that she takes a few times a day but has no breathing treatments at home. Denies fevers, chills. She states that today her shortness of breath became severe prompting her to call EMS. Related Data Home Medications ?Medication ?Instructions ?Recorded ?Confirmed ?Last Taken ?Type acetaminophen 500 mg capsule 500 mg PO Q6H PRN Pain (Scale 11/24/19 07/30/25 07/01/23 14:15 History Score 1-3) aspirin 81 mg tablet,delayed 81 mg PO DAILY 11/24/19 07/30/25 07/01/24 History release (Adult Aspirin Regimen) atorvastatin 40 mg tablet 40 mg PO HS 11/24/19 07/30/25 07/01/24 History levetiracetam 250 mg tablet 250 mg PO Q12H 11/24/19 07/30/25 07/01/24 History (Keppra) melatonin 5 mg capsule 5 mg PO HS 11/24/19 07/30/25 06/30/24 History potassium chloride 20 mEq 20 meq PO BID 11/24/19 07/30/25 07/01/24 History tablet,extended release multivitamin with folic acid 400 1 tablet PO DAILY 03/10/22 07/30/25 07/01/24 History mcg tablet (Daily-Annie (with folic acid)) alprazolam 0.5 mg tablet 0.5 mg PO Q8-12H PRN Anxiety 06/29/23 07/30/25 06/17/24 History ferrous sulfate 325 mg (65 mg 325 mg PO TID 12/02/23 07/30/25 07/01/24 History iron) tablet escitalopram oxalate 10 mg tablet 10 mg PO DAILY 07/18/25 07/30/25 Unknown History levocetirizine 5 mg tablet 5 mg PO QPM 07/18/25 07/30/25 Unknown History ropinirole 2 mg tablet 1 mg PO TID 07/18/25 07/30/25 Unknown History ergocalciferol (vitamin D2) 1,250 1,250 mcg PO WEEKLY 07/30/25 07/30/25 Unknown History mcg (50,000 unit) capsule (Vitamin D2) gabapentin 300 mg capsule 300 mg PO TID 07/30/25 07/30/25 Unknown History spironolactone 25 mg tablet 25 mg PO DAILY 07/30/25 07/30/25 Unknown History (Aldactone) Allergies Allergy/AdvReac Type Severity Reaction Status Date / Time Iodinated Contrast Media Allergy Unknown Rash Verified 07/30/25 17:36 latex Allergy Unknown Unknown Verified 07/30/25 17:36 adhesive tape AdvReac Rash Verified 07/30/25 17:36 nickel AdvReac Rash Verified 07/30/25 17:36 Review of Systems Review of Systems: Gen.: Denies fevers or chills Eyes: Denies eye pain or visual change ENT: Denies congestion Respiratory: As per HPI CV: Denies chest pain or palpitations GI: Denies abdominal pain nausea, emesis or diarrhea denies burning, urgency, frequency or hematuria Musculoskeletal: Denies back pain or muscle pain Neuro: Denies numbness, tingling, weakness or focal weakness Skin: Denies rash Except as documented, all other systems reviewed and negative [facility] Past Medical History Medical History Chronic respiratory failure with hypoxia, on home oxygen therapy 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 Chronic obstructive pulmonary disease Chronic kidney disease, stage 3 Pulmonary embolism (11/2021) Small cell lung cancer Status post chemoradiotherapy. Dyslipidemia Diastolic dysfunction Surgical History Surgical History History of incisional hernia repair History of inguinal hernia repair History of heart artery stent History of cardiac catheterization History of left nephrectomy At age 3, done for unclear reasons. History of abdominal aortic aneurysm repair Family History Family History Sibling Family history of arthritis Lung transplant status, bilateral COPD (chronic obstructive pulmonary disease) Colon cancer Father Melanoma Mother No problems noted. Social History Social History Social History: [id number]: Isabela Ponce, friend. Code status: Full code. Smoking packs per day: 1 Smoking cigarettes per day: 20.0 Years smoked: 40 Smoking pack-years: 40.00 Smoking status: Former smoker Tobacco type: cigarettes Second hand tobacco smoke exposure: No Smoking end date: 09/14/05 Alcohol intake: never Alcohol use details: No alcohol since 2005. Substance use: former Substance use type: does not use Other substance usage details: one pack per day for 40 years Lack of Transportation: No Lack of Food: Never True Current Housing: I Have Housing Concerned About Future Housing: No Difficulty Paying Gas/Electric Bills: No Difficulty Paying for Meds: No Currently Unemployed: No Education: High School Diploma/GED Difficulty w/ Childcare or Family Care: No Additional living arrangements comments: Lives in assisted living. Wheelchair-bound due to right-sided deficits from prior CVA. Spiritual care concerns: No Exam Narrative: APPEARANCE: No acute distress, nontoxic, resting in bed EYES: EOMI HEENT: Normocephalic, atraumatic, OMM RESPIRATORY: Tachypneic. Diminished breath sounds throughout with faint end-expiratory wheezes CARDIOVASCULAR: Regular rate and rhythm without murmurs rubs or gallops. ABDOMINAL: Soft, nontender, nondistended, no rebound or guarding MUSCULOSKELETAl: Moves all extremities. No clubbing, cyanosis or edema. NEURO: Awake and alert. Following commands, speech normal, no focal deficits SKIN:: Warm, dry. No rashes lesions or abrasions PSYCHIATRIC: Normal affect/mood, Course Vital Signs Vital signs: Vital Signs Temperature 98.3 F 07/30/25 14:17 Pulse Rate 88 07/30/25 14:17 Respiratory Rate 24 H 07/30/25 14:17 Blood Pressure 116/98 H 07/30/25 14:17 Pulse Oximetry 100 07/30/25 14:17 Oxygen Delivery Nasal Cannula 07/30/25 14:17 Oxygen Flow Rate 3 07/30/25 14:17 Temperature 98.9 F 07/30/25 19:02 Pulse Rate 94 07/30/25 19:47 Respiratory Rate 18 07/30/25 19:47 Blood Pressure 146/73 H 07/30/25 17:37 Pulse Oximetry 97 07/30/25 19:47 Oxygen Delivery BiPAP 07/30/25 19:47 Oxygen Flow Rate 3 07/30/25 15:35 Fraction of Inspired Oxygen 40 07/30/25 16:30 MDM - URI/Sore Throat MDM Narrative Medical decision making narrative: 75-year-old female Presenting for shortness of breath. On initial evaluation patient was in moderate distress, afebrile, hemodynamic stable. She was tachypneic to 24 on 3 L nasal cannula. Differentials include but are not limited to: ACS, CHF Exacerbation, COPD exacerbation, PE, PNA, PTX, bronchitis, viral syndrome Notable exam findings: Tachypneic with accessory muscle use with significantly diminished breath sounds throughout with very faint end-expiratory wheezes throughout. I personally reviewed the patient's lab result. Notable lab findings: Leukocytosis at 15.5. Anemia at 10.6. ABG interpreted by myself likely consistent with a mixed sample but still showed a significant hypercarbia at 77. CMP showed a metabolic alkalosis. COVID/flu/RSV negative. I personally reviewed the patient's images and interpret as follows: Chest x-ray: Bibasilar infiltrates I personally reviewed the patient's EKGs: 07/30/2025 at 2:27 p.m.: Normal sinus rhythm, normal axis, normal intervals, nonspecific T-wave change, no ST changes Patient was given 1 DuoNeb with slight improvement of her symptoms but she still is using significant accessory muscles and was still very tight. She was given 2 subsequent DuoNebs but after discussion with respiratory therapist, we did elect to start the patient on BiPAP. At that time, POA wanted it to be known that she is DNR/DNI in the patient does corroborate this. On re-evaluation, she did seem to have significant improvement of her respiratory effort and was beginning to have improvement of her aeration. Patient was started on Rocephin and doxycycline. She was given 125 mg Solu-Medrol. Case was discussed with hospitalist who will admit the patient. CRITICAL CARE Indication: Acute hypercarbic respiratory failure, COPD exacerbation Time type: intermittent I provided a total of 50 minutes of critical care excluding separately billable procedures. This includes time w/ EMS, initial bedside evaluation, reviewing old records, review of testing done while under my care, discussion w/ the family, nurses, technical healthcare consultant and guiding the patient?s care while in the emergency department. Approximate time distribution: 15 minutes ? Initial evaluation, d/w involved parties, attempting to gather old records. 5 minutes ? Documenting medical record 10 minutes ? Review of results (EKGs, labs, imaging) 15 minutes ? Serial repeat bedside evaluation 5 minutes ? Discussing case with multiple providers Medical Records Attestation: I reviewed the patient's medical records. Lab Data Attestation: I reviewed the patient's lab results. 07/30/25 14:35 07/30/25 14:35 Labs: Lab Results 07/30/25 07/30/25 Range/Units 14:32 14:35 WBC 15.5 H (4.5-10.0) K/mm3 RBC 3.69 L (4.2-5.4) M/mm3 Hgb 10.6 L (12.0-15.0) g/dL Hct 35.4 L (37.0-47.0) % MCV 95.9 (80-100) fl MCH 28.7 (26-34) pg MCHC 29.9 L (32-36) g/dl RDW 14.2 (11.5-14.5) % Plt Count 270 (150-375) k/mm3 MPV 9.1 (7.4-10.4) fl Immature Gran % (Auto) 0.5 (0-0.5) % Neut % (Auto) 83.2 H (45.5-73.1) % Lymph % (Auto) 6.6 L (18.3-44.2) % Edwards % (Auto) 7.5 (2.6-8.5) % Eos % (Auto) 1.9 (0-4.4) % Baso % (Auto) 0.3 (0.2-1.2) % Lymph # (Auto) 1.02 (0.9-3.2) K/mm3 Edwards # (Auto) 1.2 H (0.1-0.6) K/mm3 Eos # (Auto) 0.3 (0-0.3) K/mm3 Baso # (Auto) 0.0 (0.0-0.1) K/mm3 Abs Immat Gran (auto) 0.07 H (0.00-0.031) K/mm3 Absolute Neuts (auto) 12.9 H (1.3-6.7) K/mm3 Absolute Nucleated RBC 0.000 (0.0-0.012) K/mm3 Band Neutrophils % Not Reportable Nucleated RBC % 0.0 (0.0-0.2) % Platelet Estimate Adequate (Adequate) Hypochromasia 1+ Stomatocytes 1+ Schistocytes None seen Sodium 141 (137-145) mmol/L Potassium 4.4 (3.4-5.0) mmol/L Chloride 95 L (98-107) mmol/L Carbon Dioxide > 40 H (22-30) mmol/L Anion Gap (4-12) mmol/L BUN 22 H (7-17) mg/dL Creatinine 1.12 H (0.7-1.0) mg/dL Estim Creat Clear Calc 40 ml/min Estimated GFR 48 L (59 - ) Glucose 110 (65-110) mg/dL Calcium 9.3 (8.4-10.2) mg/dL Total Bilirubin 0.5 (0.2-1.3) mg/dL AST 36 (14-36) U/L ALT 29 (6-35) U/L Alkaline Phosphatase 65 (38-126) U/L Total Protein 6.7 (6.3-8.2) g/dL Albumin 3.6 (3.5-5.1) g/dL Influenza A (RT-PCR) Negative (Negative) Influenza B (RT-PCR) Negative (Negative) RSV (RT-PCR) Negative (Negative) SARS-CoV-2 RNA (RT-PCR) Negative (Negative) ABG Data ABG results: 07/30/25 15:36 Puncture Site Right radial ABG pH 7.355 ABG pCO2 76.9 H* ABG pO2 29.5 L* ABG PO2/FiO2 Ratio 1.05 ABG HCO3 42.0 H ABG O2 Saturation 50.2 L* ABG O2 Content 9.4 L ABG Base Excess 13.3 A-a Gradient 79.4 Oxyhemoglobin 54.4 L* Total Hemoglobin 12.3 O2 Delivery Device Nasal cannula O2 Liters/Min 2.0 FiO2 28 Imaging Data Radiologist's impression: Impressions Chest X-Ray 07/30/25 15:01 Impression: Early bilateral pneumonia Discharge Plan Discharge Clinical Impression: Acute hypercapnic respiratory failure, Acute exacerbation of chronic obstructive pulmonary disease Bilateral pneumonia Qualifiers: Pneumonia type: due to unspecified organism Lung location: lower lobe of lung Qualified Code(s): J18.9 - Pneumonia, unspecified organism Anemia, unspecified Qualifiers: Anemia type: unspecified type Qualified Code(s): D64.9 - Anemia, unspecified Patient Disposition: Still a Patient Condition: Serious
[2025-07-30 15:14] LABS: Influenza A QL RT-PCR Negative (Negative); Influenza B QL RT-PCR Negative (Negative); RSV RNA, RT-PCR Negative (Negative); SARS-CoV-2 RNA PCR Negative (Negative)
[2025-07-30 15:22] LABS: Carbon Dioxide > 40 mmol/L (22-30)
--- NOTE | 2025-07-30 15:36 | PC.NURSE ---
2x RN attempts unable to obtain blood cultures
[2025-07-30 15:48] LABS: Alveolar/Arterial O2 Gradient 79.4 mmHg; Fractional Inspired Oxygen 28 %; HCO3 ABG 42.0 mEq/l (22.0-26.0); Oxygen Content ABG 9.4 %vol (16.0-22.0); PO2 FiO2 Ratio Arterial Blood 1.05 %
--- OUTSIDE RECORDS SUMMARY | 2025-07-30 15:52 | XMS_ITS | Encounter Summary ---
Author Organization [facility] Address [address] [place] [address] Care Team Providers Care Ice Seller Name Role Phone Salima Donahue MD Primary Care Provider [phone] Gordy Rodriguez MD Unavailable Unavailable Encounter Details Date Type Department Care Team (Late st Contact Info) Description 02/19/2019 Abstract [facility] CONVERSION [address] [place] [address] , Generic Conversion, Social History Tobacco Use [...] on filedocumented in this encounter Care Teams Ice Seller Relationship Specialty Start Date End Date Salima Donahue MD [address] [place] [phone] PCP - General INTERNAL MEDICINE 12/10/17 Gordy Rodriguez MD [address] [place] [address] [place] [employer] Motor Assembler And Tester INTERVENTIONAL CARDIOLOGY 09/24/18 documented as of this encounter
--- OUTSIDE RECORDS SUMMARY | 2025-07-30 15:52 | XMS_ITS | Clinical Summary ---
Author Organization [facility] Address [address] [place] [address] Care Team Providers Care Flaker Tender Name Role Phone Salima Donahue MD Primary Care Provider Gordy Rodriguez MD Unavailable Unavailable Allergies Active [...] 20 mg by mouth daily. Active Umeclidinium Bruno (INCRUSE ELLIPTA) 62.5 MCG/INH AEROSOL POWDER, BREATH ACTIVATED Inhale 1 puff into the lungs daily. Active alendronate 70 MG tablet Take 70 mg by mouth every 7 days. Take in the morning with a full glass of water, on an empty stomach, and do not take anything else by mouth or lie down for the next 30 min. Active vitamin D2, ergocalciferol, 38147 UNITS capsule Take 50,000 Units by mouth [...] cancer 12/09/2017 Coronary artery disease invo lving [place] coronary artery of [place] heart without angina pectoris COPD (chronic obstructive [...] CHOLESTEROL 112 MG/DL 03/01/2019 4:04 AM CDT [facility] Comment:DESIRABLE: <200 TRIGLYCERIDES 59 MG/DL 03/01/2019 4:04 AM CDT [facility] Comment:<150 NORMAL HDL 56 >49 MG/DL 03/01/2019 4:04 AM CDT [facility] LDL (CALCULATED) 44 MG/DL 03/01/20 4:04 AM CDT [facility] Comment:<100 OPTIMAL VLDL CALCULATION 12 MG/DL 03/01/20 4:04 AM CDT [facility] Comment:REFERENCE RANGE NOT ESTABLISHED CHOL/HDL RATIO 2.0 03/01/2019 4:04 AM CDT [facility] Comment:REFERENCE RANGE NOT ESTABLISHED LDL/HDL 0.8 03/01/2019 4:04 AM CDT [facility] Comment:REFERENCE RANGE NOT ESTABLISHED NON HDL CHOLESTEROL 56 MG/DL 03/01/2019 4:04 AM CDT [facility] Comment:REFERENCE RANGE NOT ESTABLISHED 03/01/2019 3:14 AM CDT Dino Frye DO LABORATORY Final Result Performing Organization Address City/State/[facility] Co de Phone Number [facility] [address] [place] [address], [id number] from Last 3 Months or Most Recently Relevant to Health Maintenance Insurance MEDICAID MEDICARE MEDICARE MEDICAID Advance Directives Documents on File Type Date Recorded Patient Logger Driving Horses Expl anation Advance Directives and Living Will 03/02/2019 10:16 AM short form poa for health care Advance Directives and Living Will 03/02/2019 9:23 AM POLST Power of Hole Filler 01/17/2019 7:32 AM Advance Directives and Living [...] 10:34 AM 01/13/2019 3:34 PM Care Teams Flaker Tender Relationship Specialty Start Date End Date Salima Donahue MD [address] [place] [address] PCP - General INTERNAL MEDICINE 12/10/17 Gordy Rodriguez MD [address] [place] [address] Production Manager INTERVENTIONAL CARDIOLOGY 09/24/18
--- OUTSIDE RECORDS SUMMARY | 2025-07-30 15:52 | XMS_ITS | Clinical Summary ---
Author Organization [facility] Chidi Velezbrett Address [address] [place] [address] Care Team Providers Care Basketball Assembler Name Role Phone Salima Donahue MD Primary [...] 165.1 cm (5' 5) 07/31/2022 2:58 PM MARKETING OPERATIONS ASSOCIATE Body Mass Index 23.16 07/31/2022 2:58 PM MARKETING OPERATIONS ASSOCIATE Plan of Treatment Upcoming Encounters Date Type Department Care Team (Late st Contact Info) Description 09/28/2025 2:30 PM MARKETING OPERATIONS ASSOCIATE Office Visit [facility] Oncology and Hematology - [place] [address] [facility] [address] [place] [address] Dino Farfan MD [address] [facility] [address] [place] [address] Health Maintenance Due Date Last [...] 05/05/2032 Insurance MEDICARE PART A AND B [facility] [employer] [place] Care Teams Basketball Assembler Relationship Specialty Start Date End Date Salima Donahue MD [address] [place] [phone] PCP - General Internal Medicine 07/31/22
--- OUTSIDE RECORDS SUMMARY | 2025-07-30 15:52 | XMS_ITS | Encounter Summary ---
Author Organization [facility] Address [address] [place] [address] Care Team Providers Care Textile Science Technician Name Role Phone Salima Donahue MD Primary Care Provider [phone] Claude Pinto MD Unavailable [phone] Gordy Rodriguez MD Unavailable Unavailable Encounter Details Date Type Department Care Team (Late st Contact Info) Description 11/28/2017 Abstract [facility] CONVERSION [address] [place] [address] , Generic MD Jenniffer Social History Tobacco [...] on filedocumented in this encounter Care Teams Textile Science Technician Relationship Specialty Start Date End Date Salima Donahue MD [address] [place] [address] PCP - General INTERNAL MEDICINE 12/10/17 Claude Pinto MD [address] [place] [address] [place] [facility] CARDIOVASCULAR DISEASE 12/10/17 09/27/18 Gordy Rodriguez MD [address] [place] [address] [place] [facility] INTERVENTIONAL CARDIOLOGY 09/24/18 documented as of this encounter
--- NOTE | 2025-07-30 15:53 | PC.NURSE ---
Pt. receiving breathing treatment. Phlebotomy at bedside attempting blood cultures.
[2025-07-30] MEDS: cefTRIAXone 1 GM in SODIUM CHLORIDE 0.9% IV 50 ML 100 ML IVPB (16:14)
[2025-07-30 16:27] LABS: PCO2 ABG 76.9 mmHg (35.0-45.0); PO2 ABG 29.5 mmHg (80.0-100.0)
[2025-07-30 16:28] LABS: Oxygen Saturation ABG 50.2 % (95.0-100.0)
[2025-07-30 16:29] LABS: Liters per Minute 2.0 LPM; Modified Allen's Test Pass; Site Drawn RIGHT RADIAL
--- NOTE | 2025-07-30 16:30 | PCRCNOTE ---
Pt appears SOB with rest.Breath sounds are extremely diminished with scattered wheezes.. Gave patient 3 duoneb treatments, jeromy ABG, placed on BIPAP for respiratory distress. POA in room and told me Teresa wants meds only and no intubation. Dr. Jo made aware.
[2025-07-30] MEDS: DOXYCYCLINE IV 100 MG in SODIUM CHLORIDE 0.9% IV 100 ML IVPB (16:46)
--- NOTE | 2025-07-30 17:00 | WPCEDHO ---
ED Hand Off Checklist All vitals saved: YES IV Site documented: YES All med administrations documented: YES Triage Note Triage Note Arrived to ed from an assisted 07/30/25 14:17 living facility [facility]. Complaining of fever, body aches and cough. Audible wheezes heard at bedside. Pt on home O2 @3L/NC. 99% on O2. Harsh cough, afebrile Allergies Iodinated Contrast Media Allergy (Unknown, Verified 07/30/25 14:28) Rash latex Allergy (Unknown, Verified 07/30/25 14:28) Unknown skin reaction adhesive tape Adverse Reaction (Verified 07/30/25 14:28) Rash nickel Adverse Reaction (Verified 07/30/25 14:28) Rash Family History (Last Reviewed 07/30/25 @ 15:07 by Jesus Jo DO) Sibling Family history of arthritis Lung transplant status, bilateral COPD (chronic obstructive pulmonary disease) Colon cancer Father Melanoma Mother No problems noted. Administered/Completed Medications Discontinued Medications Albuterol/Ipratropium (Ipratropium 0.5 Mg/Albuterol Sulfate 2.5 Mg (Base) Ampul.Neb 3 Ml) 3 ml INHALATION ONCE STA Stop: 07/30/25 14:46 Last Admin: 07/30/25 15:01 Dose: 3 ml Documented By: SHAKIRA Albuterol/Ipratropium (Ipratropium 0.5 Mg/Albuterol Sulfate 2.5 Mg (Base) Ampul.Neb 3 Ml) 3 ml INHALATION ONCE STA Stop: 07/30/25 15:26 Last Admin: 07/30/25 15:53 Dose: 3 ml Documented By: SHAKIRA Albuterol/Ipratropium (Ipratropium 0.5 Mg/Albuterol Sulfate 2.5 Mg (Base) Ampul.Neb 3 Ml) 3 ml INHALATION ONCE STA Stop: 07/30/25 15:56 Last Admin: 07/30/25 15:55 Dose: 3 ml Documented By: SHAKIRA Ceftriaxone Sodium 1 gm/ (Sodium Chloride) 50 mls @ 100 mls/hr IVPB ONCE STA Stop: 07/30/25 15:38 Last Infusion: 07/30/25 16:46 Dose: Infused Documented By: Admin: 07/30/25 16:14 Dose: 100 mls/hr Documented By: SHIVA Doxycycline Hyclate 100 mg/ (Sodium Chloride) 100 mls @ 100 mls/hr IVPB ONCE ONE Stop: 07/30/25 16:08 Last Admin: 07/30/25 16:46 Dose: 100 mls/hr Documented By: JACQUI Methylprednisolone Sodium Succinate (Methylprednisolone Sod Succ 125 Mg Vial) 125 mg IV PUSH ONCE STA Stop: 07/30/25 14:56 Last Admin: 07/30/25 15:35 Dose: 125 mg Documented By: SHIVA Heard 07/30/25 16:59 ED Hand Off by Grace Alvarez ED Hand Off Checklist All vitals saved: YES IV Site documented:YES All med administrations documented:YES Triage Note Triage Note Arrived to ed from an assisted 07/30/25 14:17 living facility [facility]. Complaining of fever, body aches and cough. Audible wheezes heard at bedside. Pt on home O2 @3L/NC. 99% on O2. Harsh cough, afebrile Allergies Iodinated Contrast Media Allergy (Unknown, Verified 07/30/25 14:28) Rash latex Allergy (Unknown, Verified 07/30/25 14:28) Unknown skin reaction adhesive tape Adverse Reaction (Verified 07/30/25 14:28) Rash nickel Adverse Reaction (Verified 07/30/25 14:28) Rash Family History (Last Reviewed 07/30/25 @ 15:07 by Jesus Jo DO) Sibling Family history of arthritis Lung transplant status, bilateral COPD (chronic obstructive pulmonary disease) Colon cancer Father Melanoma Mother No problems noted. Administered/Completed Medications Discontinued Medications Albuterol/Ipratropium (Ipratropium 0.5 Mg/Albuterol Sulfate 2.5 Mg (Base) Ampul.Neb 3 Ml) 3 ml INHALATION ONCE STA Stop: 07/30/25 14:46 Last Admin: 07/30/25 15:01 Dose: 3 ml Documented By: SHAKIRA Albuterol/Ipratropium (Ipratropium 0.5 Mg/Albuterol Sulfate 2.5 Mg (Base) Ampul.Neb 3 Ml) 3 ml INHALATION ONCE STA Stop: 07/30/25 15:26 Last Admin: 07/30/25 15:53 Dose: 3 ml Documented By: SHAKIRA Albuterol/Ipratropium (Ipratropium 0.5 Mg/Albuterol Sulfate 2.5 Mg (Base) Ampul.Neb 3 Ml) 3 ml INHALATION ONCE STA Stop: 07/30/25 15:56 Last Admin: 07/30/25 15:55 Dose: 3 ml Documented By: SHAKIRA Ceftriaxone Sodium 1 gm/ (Sodium Chloride) 50 mls @ 100 mls/hr IVPB ONCE STA Stop: 07/30/25 15:38 Last Infusion: 07/30/25 16:46 Dose: Infused Documented By: Admin: 07/30/25 16:14 Dose: 100 mls/hr Documented By: SHIVA Doxycycline Hyclate 100 mg/ (Sodium Chloride) 100 mls @ 100 mls/hr IVPB ONCE ONE Stop: 07/30/25 16:08 Last Admin: 07/30/25 16:46 Dose: 100 mls/hr Documented By: JACQUI Methylprednisolone Sodium Succinate (Methylprednisolone Sod Succ 125 Mg Vial) 125 mg IV PUSH ONCE STA Stop: 07/30/25 14:56 Last Admin: 07/30/25 15:35 Dose: 125 mg Documented By: SHIVA Notes 07/30/25 16:30 Respiratory Therapy Note by Elba Mcgrath Pt appears SOB with rest.Breath sounds are extremely diminished with scattered wheezes.. Gave patient 3 duoneb treatments, jeromy ABG, placed on BIPAP for respiratory distress. POA in room and told me Teresa wants meds only and no intubation. Dr. Jo made aware. Initialized on 07/30/25 16:30 - END OF NOTE 07/30/25 15:53 Nurse Note by Grace Alvarez Pt. receiving breathing treatment. Phlebotomy at bedside attempting blood cultures. Initialized on 07/30/25 15:53 - END OF NOTE 07/30/25 15:36 Nurse Note by Grace Pineda 2x RN attempts unable to obtain blood cultures Initialized on 07/30/25 15:36 - END OF NOTE Interventions/Assessments IV / Saline Lock, Insert Start: 07/30/25 14:24 Freq: STAT Status: Active Protocol: Document 07/30/25 14:36 SAB (Rec: 07/30/25 14:37 SAB [id number]) IV Assessment Peripheral Access Right Antecubital IV Catheter Access Initiated IV Insertion Date 07/30/25 IV Insertion Time 14:37 Catheter Gauge 20 IV Insertion 1 Attempts IV Site Assessment WNL IV Care and WNL Maintenance PA: Respiratory Assessment Start: 07/30/25 14:17 Freq: Status: Active Protocol: Document 07/30/25 15:35 [facility] (Rec: 07/30/25 15:36 Jann [id number]) Respiratory Assessment Symptoms Cough,Shortness of Breath at Rest,Shortness of Breath With Exertion Effort Abdominal Breathing,Short of Breath Pattern Tachypnea Adult Capillary Normal/Less than 2 Seconds Refill Anterior Bilateral Throughout Phase Inspiratory & Expiratory Lung Sounds Wheezes Cough Description Ineffective,Non-Productive Cough Frequency Intermittent Oxygen Delivery Oxygen Delivery Nasal Cannula Oxygen Flow Rate (L/ 3 min) Pulse Oximetry (90- 99 100 %) Last Vital Signs Temperature 99.4 F 07/30/25 16:58 Pulse Rate 96 07/30/25 16:58 Respiratory Rate 24 H 07/30/25 16:58 Pulse Oximetry 97 07/30/25 16:58 Blood Pressure 138/97 H 07/30/25 16:58 Blood Pressure Mean 110 07/30/25 16:58 Blood Pressure Position Sitting 07/30/25 16:30 Oxygen Delivery BiPAP 07/30/25 16:30 Oxygen Flow Rate 3 07/30/25 15:35 Fraction of Inspired Oxygen 40 07/30/25 16:30 Weight 77.1 kg 07/30/25 14:17 Last Result - Abnormals Only WBC 15.5 K/mm3 (4.5-10.0) H 07/30/25 14:35 RBC 3.69 M/mm3 (4.2-5.4) L 07/30/25 14:35 Hgb 10.6 g/dL (12.0-15.0) L 07/30/25 14:35 Hct 35.4 % (37.0-47.0) L 07/30/25 14:35 MCHC 29.9 g/dl (32-36) L 07/30/25 14:35 Neut % (Auto) 83.2 % (45.5-73.1) H 07/30/25 14:35 Lymph % (Auto) 6.6 % (18.3-44.2) L 07/30/25 14:35 [place] # (Auto) 1.2 K/mm3 (0.1-0.6) H 07/30/25 14:35 Abs Immat Gran (auto) 0.07 K/mm3 (0.00-0.031) H 07/30/25 14:35 Absolute Neuts (auto) 12.9 K/mm3 (1.3-6.7) H 07/30/25 14:35 ABG pCO2 76.9 mmHg (35.0-45.0) H* 07/30/25 15:36 ABG pO2 29.5 mmHg (80.0-100.0) L* 07/30/25 15:36 ABG HCO3 42.0 mEq/l (22.0-26.0) H 07/30/25 15:36 ABG O2 Saturation 50.2 % (95.0-100.0) L* 07/30/25 15:36 ABG O2 Content 9.4 %vol (16.0-22.0) L 07/30/25 15:36 Oxyhemoglobin 54.4 % THb (90.0-100.0) L* 07/30/25 15:36 Chloride 95 mmol/L (98-107) L 07/30/25 14:35 Carbon Dioxide > 40 mmol/L (22-30) H 07/30/25 14:35 BUN 22 mg/dL (7-17) H 07/30/25 14:35 Creatinine 1.12 mg/dL (0.7-1.0) H 07/30/25 14:35 Estimated GFR 48 (59-) L 07/30/25 14:35 Most Recent Suicide Severity Rating Suicide Severity Rating NO RISK INDICATED 07/30/25 14:17 Initialized on 07/30/25 16:59 - END OF NOTE 07/30/25 16:30 Respiratory Therapy Note by Elba Mcgrath Pt appears SOB with rest.Breath sounds are extremely diminished with scattered wheezes.. Gave patient 3 duoneb treatments, jeromy ABG, placed on BIPAP for respiratory distress. POA in room and told me Teresa wants meds only and no intubation. Dr. Jo made aware. Initialized on 07/30/25 16:30 - END OF NOTE 07/30/25 15:53 Nurse Note by Grace Alvarez Pt. receiving breathing treatment. Phlebotomy at bedside attempting blood cultures. Initialized on 07/30/25 15:53 - END OF NOTE 07/30/25 15:36 Nurse Note by Grace Pineda RN attempts unable to obtain blood cultures Initialized on 07/30/25 15:36 - END OF NOTE Interventions/Assessments IV / Saline Lock, Insert Start: 07/30/25 14:24 Freq: STAT Status: Active Protocol: Document 07/30/25 14:36 SAB (Rec: 07/30/25 14:37 SAB [id number]) IV Assessment Peripheral Access Right Antecubital IV Catheter Access Initiated IV Insertion Date 07/30/25 IV Insertion Time 14:37 Catheter Gauge 20 IV Insertion 1 Attempts IV Site Assessment WNL IV Care and WNL Maintenance PA: Respiratory Assessment Start: 07/30/25 14:17 Freq: Status: Active Protocol: Document 07/30/25 15:35 KED (Rec: 07/30/25 15:36 KED [id number]) Respiratory Assessment Symptoms Cough,Shortness of Breath at Rest,Shortness of Breath With Exertion Effort Abdominal Breathing,Short of Breath Pattern Tachypnea Adult Capillary Normal/Less than 2 Seconds Refill Anterior Bilateral Throughout Phase Inspiratory & Expiratory Lung Sounds Wheezes Cough Description Ineffective,Non-Productive Cough Frequency Intermittent Oxygen Delivery Oxygen Flow Rate 3 Oxygen Delivery Nasal Cannula Pulse Oximetry (90- 99 100) Last Vital Signs Temperature 99.4 F 07/30/25 16:58 Pulse Rate 96 07/30/25 16:58 Respiratory Rate 24 H 07/30/25 16:58 Pulse Oximetry 97 07/30/25 16:58 Blood Pressure 138/97 H 07/30/25 16:58 Blood Pressure Mean 110 07/30/25 16:58 Blood Pressure Position Sitting 07/30/25 16:30 Oxygen Delivery BiPAP 07/30/25 16:30 Oxygen Flow Rate 3 07/30/25 15:35 Fraction of Inspired Oxygen 40 07/30/25 16:30 Weight 77.1 kg 07/30/25 14:17 Last Result - Abnormals Only WBC 15.5 K/mm3 (4.5-10.0) H 07/30/25 14:35 RBC 3.69 M/mm3 (4.2-5.4) L 07/30/25 14:35 Hgb 10.6 g/dL (12.0-15.0) L 07/30/25 14:35 Hct 35.4 % (37.0-47.0) L 07/30/25 14:35 MCHC 29.9 g/dl (32-36) L 07/30/25 14:35 Neut % (Auto) 83.2 % (45.5-73.1) H 07/30/25 14:35 Lymph % (Auto) 6.6 % (18.3-44.2) L 07/30/25 14:35 [place] # (Auto) 1.2 K/mm3 (0.1-0.6) H 07/30/25 14:35 Abs Immat Gran (auto) 0.07 K/mm3 (0.00-0.031) H 07/30/25 14:35 Absolute Neuts (auto) 12.9 K/mm3 (1.3-6.7) H 07/30/25 14:35 ABG pCO2 76.9 mmHg (35.0-45.0) H* 07/30/25 15:36 ABG pO2 29.5 mmHg (80.0-100.0) L* 07/30/25 15:36 ABG HCO3 42.0 mEq/l (22.0-26.0) H 07/30/25 15:36 ABG O2 Saturation 50.2 % (95.0-100.0) L* 07/30/25 15:36 ABG O2 Content 9.4 %vol (16.0-22.0) L 07/30/25 15:36 Oxyhemoglobin 54.4 % THb (90.0-100.0) L* 07/30/25 15:36 Chloride 95 mmol/L (98-107) L 07/30/25 14:35 Carbon Dioxide > 40 mmol/L (22-30) H 07/30/25 14:35 BUN 22 mg/dL (7-17) H 07/30/25 14:35 Creatinine 1.12 mg/dL (0.7-1.0) H 07/30/25 14:35 Estimated GFR 48 (59-) L 07/30/25 14:35 Most Recent Suicide Severity Rating Suicide Severity Rating NO RISK INDICATED 07/30/25 14:17
--- NOTE | 2025-07-30 18:23 | ADMGEN ---
This patient, Teresa Levi, was admitted to IMU Room 200-01 at approximately 1722. Patient/family oriented to hospital policies and general routines including ID bracelet, bed and alarms, visiting hours, pain management, procedures, bathroom and other care routines, personal items, smoking policy, room service/diet, and visiting hours. Information on how to activate the Rapid Response Team has been discussed. Patient/Family are encouraged to report perceived risks to care and to ask questions if they do not understand what they are told or what they should do.
--- NOTE | 2025-07-30 18:27 | PM.IMHP ---
H&P: HPI History of Present Illness Date/Time: 07/30/25 18:27 Chief Complaint: Body aches and cough Narrative: 75-year-old female with a past medical history of CHF, seizure disorder, CVA, CKD, COPD, PE, small cell lung cancer, hypertension presents to the ED from assisted living on 07/30/2025 with complaints of shortness of breath. Patient states that for the past few days she has been having worsening dyspnea with a cough with white sputum that has increased from her chronic cough along with body aches and fever. Patient does wear 2 L of oxygen at baseline. She is prescribed NIV but does not wear it as she does not like the masks going over the bridge of her nose. Initial vital signs 116/98, HR 88, respirations 24, afebrile and 100% on 3 L O2 Labs significant for WBC 15.5 anemia with hemoglobin 10.6 and hematocrit 35.4. Chemistry with chloride 95, carbon dioxide greater than 40, BUN 22, creatinine 1.12. Viral panel negative. 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 Chronic obstructive pulmonary disease Chronic kidney disease, stage 3 Pulmonary embolism (11/2021) Small cell lung cancer Status post chemoradiotherapy. Dyslipidemia Diastolic dysfunction Surgical History Surgical History History of incisional hernia repair History of inguinal hernia repair History of heart artery stent History of cardiac catheterization History of left nephrectomy At age 3, done for unclear reasons. History of abdominal aortic aneurysm repair Family History Family History Sibling Family history of arthritis Lung transplant status, bilateral COPD (chronic obstructive pulmonary disease) Colon cancer Father Melanoma Mother No problems noted. Social History Social History Social History: [id number]: Isabela Quacher, friend. Code status: Full code. Smoking packs per day: 1 Smoking cigarettes per day: 20.0 Years smoked: 40 Smoking pack-years: 40.00 Smoking status: Former smoker Tobacco type: cigarettes Second hand tobacco smoke exposure: No Smoking end date: 09/14/05 Alcohol intake: never Alcohol use details: No alcohol since 2005. Substance use: former Substance use type: does not use Other substance usage details: one pack per day for 40 years Lack of Transportation: No Lack of Food: Never True Current Housing: I Have Housing Concerned About Future Housing: No Difficulty Paying Gas/Electric Bills: No Difficulty Paying for Meds: No Currently Unemployed: No Education: High School Diploma/GED Difficulty w/ Childcare or Family Care: No Additional living arrangements comments: Lives in assisted living. Wheelchair-bound due to right-sided deficits from prior CVA. Spiritual care concerns: No Meds Home Medications and Allergies Home Medications ?Medication ?Instructions ?Recorded ?Confirmed ?Type acetaminophen 500 mg capsule 500 mg PO Q6H PRN Pain (Scale 11/24/19 07/30/25 History Score 1-3) aspirin 81 mg tablet,delayed 81 mg PO DAILY 11/24/19 07/30/25 History release (Adult Aspirin Regimen) atorvastatin 40 mg tablet 40 mg PO HS 11/24/19 07/30/25 History levetiracetam 250 mg tablet 250 mg PO Q12H 11/24/19 07/30/25 History (Keppra) melatonin 5 mg capsule 5 mg PO HS 11/24/19 07/30/25 History potassium chloride 20 mEq 20 meq PO BID 11/24/19 07/30/25 History tablet,extended release multivitamin with folic acid 400 1 tablet PO DAILY 03/10/22 07/30/25 History mcg tablet (Daily-Annie (with folic acid)) pantoprazole 40 mg tablet,delayed 40 mg PO QAM #30 tabs 05/06/22 07/30/25 Rx release comp.stocking,knee,long,medium #12 ea 06/02/22 07/30/25 Rx Held on 07/30/25. Instructions: Patient no longer taking furosemide 40 mg tablet (Lasix) 40 mg PO BID #60 tabs 06/02/22 07/30/25 Rx alprazolam 0.5 mg tablet 0.5 mg PO Q8-12H PRN Anxiety 06/29/23 07/30/25 History ferrous sulfate 325 mg (65 mg 325 mg PO TID 12/02/23 07/30/25 History iron) tablet umeclidinium 62.5 mcg/actuation See Rx Instructions .Route 01/09/25 07/30/25 Rx blister powder for inhalation .COMPLEX #30 grams (Incruse Ellipta) Advair HFA 230 mcg-21 See Rx Instructions .Route 05/23/25 07/30/25 Rx mcg/actuation aerosol inhaler .COMPLEX #12 grams (fluticasone propion-salmeterol) albuterol sulfate 90 mcg/actuation 2 puff inhalation Q6H PRN 07/06/25 07/30/25 Rx aerosol inhaler shortness of breath or wheezing #8.5 grams escitalopram oxalate 10 mg tablet 10 mg PO DAILY 07/18/25 07/30/25 History levocetirizine 5 mg tablet 5 mg PO QPM 07/18/25 07/30/25 History ropinirole 2 mg tablet 1 mg PO TID 07/18/25 07/30/25 History ergocalciferol (vitamin D2) 1,250 1,250 mcg PO WEEKLY 07/30/25 07/30/25 History mcg (50,000 unit) capsule (Vitamin D2) gabapentin 300 mg capsule 300 mg PO TID 07/30/25 07/30/25 History spironolactone 25 mg tablet 25 mg PO DAILY 07/30/25 07/30/25 History (Aldactone) Allergies Allergy/AdvReac Type Severity Reaction Status Date / Time Iodinated Contrast Media Allergy Unknown Rash Verified 07/30/25 17:36 latex Allergy Unknown Unknown Verified 07/30/25 17:36 adhesive tape AdvReac Rash Verified 07/30/25 17:36 nickel AdvReac Rash Verified 07/30/25 17:36 Vital Signs Vital Signs - 24 hr 07/30/25 14:17 07/30/25 15:02 07/30/25 15:05 Temperature 98.3 F Pulse Rate 88 89 89 Respiratory Rate 24 H 22 H 22 H Blood Pressure 116/98 H Pulse Oximetry 100 98 Oxygen Delivery Nasal Cannula Nasal Cannula Oxygen Flow Rate 3 3 Fraction of Inspired Oxygen 07/30/25 15:11 07/30/25 15:12 07/30/25 15:35 Temperature Pulse Rate 98 Respiratory Rate 22 H Blood Pressure Pulse Oximetry 100 99 Oxygen Delivery Nasal Cannula Nasal Cannula Oxygen Flow Rate 2 3 Fraction of Inspired Oxygen 07/30/25 15:35 07/30/25 15:55 07/30/25 16:01 Temperature Pulse Rate 99 100 102 H Respiratory Rate 24 H 28 H 28 H Blood Pressure 150/74 H Pulse Oximetry 98 98 Oxygen Delivery BiPAP Oxygen Flow Rate Fraction of Inspired Oxygen 07/30/25 16:15 07/30/25 16:30 07/30/25 16:30 Temperature Pulse Rate 103 H 104 H Respiratory Rate 26 H 23 H Blood Pressure 129/69 138/97 H Pulse Oximetry 98 98 98 Oxygen Delivery BiPAP Oxygen Flow Rate Fraction of Inspired Oxygen 40 07/30/25 16:52 07/30/25 16:58 07/30/25 17:37 Temperature 99.4 F 100.4 F H Pulse Rate 96 109 H Respiratory Rate 24 H 33 H Blood Pressure 138/97 H 146/73 H Pulse Oximetry 98 97 98 Oxygen Delivery Oxygen Flow Rate Fraction of Inspired Oxygen Exam Narrative: GENERAL: non-toxic appearing. Tachypneic in mild distress HEAD: Normocephalic, atraumatic. EYES: PERRLA. Conjunctivae clear. NOSE: Normal no drainage. THROAT: Pharynx clear, no exudate. NECK: Trachea midline. Thyroid not palpable. No adenopathy, no masses. RESPIRATORY: Airway patent. Decreased air movement with expiratory wheezes heard throughout. Mildly tachypneic and using accessory muscles. BiPAP in place CARDIOVASCULAR: Regular rate and rhythm BREASTS: Defer GASTROINTESTINAL: Abdomen is soft and nontender. Large, soft ventral hernia present with no erythema or pain. GENITOURINARY: Defer MUSCULOSKELETAL: Moves all extremities. No gross deformities. Bilateral lower extremity edema with scattered bruising. Dressing to left lateral leg SKIN: Warm, dry, normal color. NEURO: A&O X4. Speech clear PSYCHIATRIC: Normal interaction H&P: Results Labs Labs: Short CBC 07/30/25 Range/Units 14:35 WBC 15.5 H (4.5-10.0) K/mm3 Hgb 10.6 L (12.0-15.0) g/dL Hct 35.4 L (37.0-47.0) % Plt Count 270 (150-375) k/mm3 BMP 07/30/25 14:35 Sodium 141 Potassium 4.4 Chloride 95 L Carbon Dioxide > 40 H BUN 22 H Creatinine 1.12 H Glucose 110 Calcium 9.3 Liver Function 07/30/25 Range/Units 14:35 Total Bilirubin 0.5 (0.2-1.3) mg/dL AST 36 (14-36) U/L ALT 29 (6-35) U/L Alkaline Phosphatase 65 (38-126) U/L Albumin 3.6 (3.5-5.1) g/dL Assessment and Plan Assessment and plan (1) Respiratory failure with hypoxia and hypercapnia: Qualifiers: Chronicity: acute on chronic Qualified Code(s): J96.21 - Acute and chronic respiratory failure with hypoxia; J96.22 - Acute and chronic respiratory failure with hypercapnia Code(s): J96.91 - Respiratory failure, unspecified with hypoxia; J96.92 - Respiratory failure, unspecified with hypercapnia Status: Acute Assessment and Plan: - DuoNebs Q2H for 3 doses, then Q4H scheduled - steroids: Methylprednisolone 125 once in ED--> methylprednisolone 60 mg IV push b.i.d. - home medications: Advair b.i.d., albuterol p.r.n., Incruse Ellipta daily - started on ceftriaxone and azithromycin on 07/30 - currently requiring BiPAP -ABG in a.m. -pulmonology consult (2) Bilateral pneumonia: Qualifiers: Lung location: lower lobe of lung Pneumonia type: due to unspecified organism Qualified Code(s): J18.9 - Pneumonia, unspecified organism Code(s): J18.9 - Pneumonia, unspecified organism Status: Acute Assessment and Plan: Patient states that for the past few days she has been having worsening dyspnea with a cough with white sputum that has increased from her chronic cough along with body aches and fever. Chest x-ray read COPD changes with early bilateral pneumonia. - started on ceftriaxone and azithromycin on 07/30 -schedule DuoNebs as above -Tylenol p.r.n. -Mucinex 600 b.i.d. -MRSA PCR pending - Viral PCR negative - sputum culture -currently requiring BiPAP -trend CBC -trend fever curve (3) Diastolic CHF: Qualifiers: Heart failure chronicity: unspecified Qualified Code(s): I50.30 - Unspecified diastolic (congestive) heart failure Code(s): I50.30 - Unspecified diastolic (congestive) heart failure Status: Chronic Assessment and Plan: - most recent echo 06/05/2022 EF 55-60%. Grade I diastolic dysfunction. Elevated RA pressure. Increased LV wall thickness. - echo ordered - BNP in a.m. - currently on: Lasix 40 mg p.o. b.i.d., spironolactone 25 mg p.o. daily - monitor I&Os and daily weights - trend renal function (4) Seizure disorder: Code(s): G40.909 - Epilepsy, unspecified, not intractable, without status epilepticus Status: Chronic Assessment and Plan: Patient unsure when last seizure was. -continue Keppra Plan Diet: NPO with sips GI prophylaxis: Pantoprazole DVT prophylaxis: Lovenox lines/drains: PIV Fluids: NA Code status: DNR/DNI Quality VTE Prophylaxis VTE prophylaxis: pharmacologic ordered Hospitalist [facility] Advance Care Plan I have confirmed that the patient's Advanced Care Plan is present, code status is documented, or surrogate decision maker is listed in patient medical record.: Yes Medication Reconciliation I have utilized all available resources to obtain, update and review the patients current medications (includes all prescriptions, OTC, herbals, cannabis, and nutritional supplements).: Yes
[2025-07-30] MEDS: AZITHROMYCIN IV 500 MG in SODIUM CHLORIDE 0.9% IV 250 ML IVPB (19:03)
[2025-07-30] MEDS: ATORVASTATIN 40 MG TABLET PO (20:48)
[2025-07-30] MEDS: MELATONIN 5 MG TABLET PO (20:49)
[2025-07-30] MEDS: LORATADINE 10 MG TABLET PO (20:49)
[2025-07-30] MEDS: ENOXAPARIN 40 MG/0.4 ML SYRINGE SUB-Q (21:43)
[2025-07-31] VITALS (23 sets, daily range): BP systolic 111–127; BP diastolic 56–95; PULSE 70–91; RESP 15–27; TEMP 36.3–36.8; O2SAT 93–98
--- NOTE | 2025-07-31 | ECHO_ITS ---
Patient Info Name: Teresa Levi Age: 75 years : 1950 Gender: Female Ht: 65 in Wt: 150 lbs BSA: 1.78 m2 HR: 76 bpm BP: 112 / 59 mmHg Technical Quality: Poor Exam Date: 07/31/2025 10:23 AM Patient Status: I Admit Date: 07/30/2025 Exam Type: CA echo dop color flow w con Complete two-dimensional, color flow and Doppler transthoracic echocardiogram is performed with contrast to opacify the left ventricle and to improve the deliniation of the left ventricle endocardial borders. Staff Referring Physician: Alex Nava Executive Cyber Leader: Mildred Walker Attending Provider: [employer] Contrast/Agitated Saline Contrast/Ag. Saline: Definity Amount: 3.00 ml Existing IV Access: Yes Reason for Poor Study: poor echocardiographic windows Summary 1. Technically suboptimal study due to poor sonographic images. 2. Definity contrast administered improved wall motion interpretation. 3. Left ventricular chamber dimension is moderately enlarged. 4. Left ventricular systolic function is moderately globally reduced, estimated at 40-45. 5. The left ventricular diastolic function is grade I diastolic dysfunction. 6. No pulmonary hypertension, estimated pulmonary arterial systolic pressure is 19 mmHg. Left Ventricle Definity contrast administered improved wall motion interpretation. Left ventricular chamber dimension is moderately enlarged. Left ventricular systolic function is moderately globally reduced, estimated at 40-45. The left ventricular diastolic function is grade I diastolic dysfunction. Right Ventricle Right ventricular chamber dimension is normal. Right ventricular systolic function is normal. Left Atria Left atrial chamber dimension is normal. Right Atria Right atrial chamber dimension is normal. Aortic Valve The aortic valve is trileaflet. There is no aortic valve stenosis. There is no aortic valve regurgitation. Pulmonic Valve There is no pulmonic regurgitation. Mitral Valve There is no mitral valve stenosis. There is no mitral valve regurgitation. Tricuspid Valve There is no tricuspid valve regurgitation. No pulmonary hypertension, estimated pulmonary arterial systolic pressure is 19 mmHg. Pericardium/Pleural There is no pericardial effusion. Inferior Vena Cava Normal inferior vena cava with >50% collapse upon inspiration consistent with normal right atrial pressure, 5 mmHg. Aorta The aortic root size at the sinus of Valsalva is normal. Left Ventricular Outflow Tract Name Value Normal LVOT 2D LVOT Diameter 2.0 cm Pulmonic Valve Name Value Normal PV Doppler PV Peak Velocity 106 cm/s PV Peak Gradient 5 mmHg Mitral Valve Name Value Normal MV Diastolic Function MV E Peak Velocity 78 cm/s MV A Peak Velocity 92 cm/s MV E/A 0.8 MV Decel Time (PW) 140 ms MV Annular TDI MV E/e' (Septal) 11.1 MV E/e' (Lateral) 6.7 MV E/e' (Average) 8.9 Tricuspid Valve Name Value Normal TV Regurgitation Doppler TR Peak Velocity 188 cm/s TR Peak Gradient 14 mmHg Estimated PAP/RSVP RA Pressure 5 mmHg <=5 PA Systolic Pressure 19 mmHg <36 RV Systolic Pressure 19 mmHg <36 Aortic Valve Name Value Normal AV Doppler AV Peak Velocity 143 cm/s AV Peak Gradient 8 mmHg AV Mean Gradient 5 mmHg AV VTI 26 cm AV Regurgitation 2D LVOT Area 3.0 cm2 Ventricles Name Value Normal LV Dimensions 2D/MM IVS Diastolic Thickness (2D) 1.1 cm 0.6-1.0 LVID Diastole (2D) 4.6 cm 3.8-5.2 LVIW Diastolic Thickness (2D) 0.9 cm 0.6-0.9 LVID Systole (2D) 3.5 cm 2.2-3.5 LVOT Diameter 2.0 cm LV Mass (2D Cubed) 154.44 g 67.00-162.00 LV Mass Index (2D Cubed) 87 g/m2 43-95 Relative Wall Thickness (2D) 0.39 <=0.42 LV Fractional Shortening/Ejection Fraction 2D/MM LV Fractional Shortening (2D) 24 % 27-45 LV EF (2D Teichkirstenz) 48 % LV Diastolic Volume (4C MOD) 161 ml LV EF (4C MOD) 41 % LV Diastolic Volume (2C MOD) 134 ml LV EF (2C MOD) 38 % LV Diastolic Volume (BP MOD) 150 ml 46-106 LV Diastolic Volume Index (BP MOD) 85 ml/m2 29-61 LV Systolic Volume (BP MOD) 92 ml 14-42 LV Systolic Volume Index (BP MOD) 52 ml/m2 8-24 LV EF (BP MOD) 39 % 54-74 LV Diastolic Length (4C) 8.5 cm LV Systolic Length (4C) 7.9 cm LV Stroke Volume (4C MOD) 65 ml Atria Name Value Normal LA Dimensions LA Volume (4C A-L) 42 ml LA Volume (BP A-L) 40 ml RA Dimensions RA Systolic Major [place] Length (4C) 4.4 cm 2.2-2.8 RA Area (4C) 11.1 cm2 <=18.0 Report Signatures
[2025-07-31] MEDS: ACETAMINOPHEN 325 MG TABLET 650 MG PO (03:49)
[2025-07-31] MEDS: ALPRAZolam (*CRX) 0.5 MG TABLET PO (03:49)
[2025-07-31 03:54] LABS: Hematocrit 35.6 % (37.0-47.0); Hemoglobin 10.9 g/dL (12.0-15.0); Immature Granulocyte Percent A 0.6 % (0-0.5); Lymphocytes Absolute Auto 0.59 K/mm3 (0.9-3.2); Mean Corpuscular HGB Conc 30.6 g/dl (32-36); Mean Corpuscular Hemoglobin 29.0 pg (26-34); Mean Corpuscular Volume 94.7 fl (80-100); Nucleated Red Blood Cells Absolute Auto 0.000 K/mm3 (0.0-0.012); Nucleated Red Blood Cells Perc 0.0 % (0.0-0.2); Platelet Count Result 299 k/mm3 (150-375); Red Blood Count 3.76 M/mm3 (4.2-5.4); White Blood Count 12.5 K/mm3 (4.5-10.0)
[2025-07-31] MEDS: IPRATROPIUM 0.5 MG/ALBUTEROL SULFATE 2.5 MG (BASE) AMPUL.NEB 3 ML INHALATION ×4 (03:59→19:58)
[2025-07-31 04:06] LABS: Alanine Aminotransferase 32 U/L (6-35); Albumin Level 3.9 g/dL (3.5-5.1); Alkaline Phosphatase 63 U/L (38-126); Anion Gap 5 mmol/L (4-12); Aspartate Amino Transferase 38 U/L (14-36); Bilirubin,Total 0.5 mg/dL (0.2-1.3); Blood Urea Nitrogen 24 mg/dL (7-17); Calcium 8.9 mg/dL (8.4-10.2); Carbon Dioxide 36 mmol/L (22-30); Chloride 98 mmol/L (98-107); Estimated CRCL calculation 36 ml/min; Estimated Glomerular Filt Rate 48; Glucose 133 mg/dL (65-110); Magnesium 2.2 mg/dL (1.6-2.3); Potassium 4.4 mmol/L (3.4-5.0); Sodium 139 mmol/L (137-145); Total Protein 7.1 g/dL (6.3-8.2)
[2025-07-31 04:11] LABS: NT Pro B Type Natriuretic Pept 1520 pg/mL (19.9-100)
[2025-07-31 04:25] LABS: Alveolar/Arterial O2 Gradient 115.1 mmHg; Fractional Inspired Oxygen 40 %; HCO3 ABG 42.2 mEq/l (22.0-26.0); Oxygen Content ABG 16.2 %vol (16.0-22.0); Oxygen Saturation ABG 97.0 % (95.0-100.0); PO2 ABG 93.7 mmHg (80.0-100.0); PO2 FiO2 Ratio Arterial Blood 2.34 %
[2025-07-31 04:28] LABS: Modified Allen's Test Pass; PCO2 ABG 66.4 mmHg (35.0-45.0); Site Drawn RIGHT RADIAL
[2025-07-31 04:37] LABS: Anisocytosis 1+; Schistocytes None Seen
[2025-07-31 06:30] LABS: MRSA (PCR) NOT DETECTED (NOT DETECTE)
[2025-07-31] MEDS: ASPIRIN 81 MG ENTERIC TABLET PO (08:43)
[2025-07-31] MEDS: SPIRONOLACTONE 25 MG TABLET PO (08:43)
[2025-07-31] MEDS: GABAPENTIN 300 MG CAPSULE PO ×3 (08:43→16:03)
[2025-07-31] MEDS: PANTOPRAZOLE 40 MG TABLET PO (08:45)
[2025-07-31] MEDS: guaiFENesin 12 HR 600 MG TABCR PO ×2 (08:45→20:20)
[2025-07-31] MEDS: ESCITALOPRAM OXALATE 10 MG TABLET PO (08:45)
[2025-07-31] MEDS: POTASSIUM CHLORIDE 20 MEQ ER TABLET PO ×2 (08:45→16:03)
[2025-07-31] MEDS: FUROSEMIDE 40 MG TABLET PO (08:45)
[2025-07-31 09:02] LABS: CRP 2.2 mg/dL (<1.0)
[2025-07-31 09:49] LABS: Procalcitonin 0.1 ng/mL
[2025-07-31] MEDS: PERFLUTREN LIPID MICROSPHERES 1.5 ML VIAL DILUTED TO 10 ML TOTAL VOLUME IV PUSH (12:28)
--- NOTE | 2025-07-31 12:54 | P.CONPL_ITS ---
Assessment and Plan Assessment and plan (1) Chronic obstructive pulmonary disease: Qualifiers: COPD type: COPD with acute exacerbation Qualified Code(s): J44.1 - Chronic obstructive pulmonary disease with (acute) exacerbation Code(s): J44.9 - Chronic obstructive pulmonary disease, unspecified Status: Acute Assessment and Plan: GOLD grade 4 group E COPD Patient with tobacco use (35 PY, quit 2003), Alpha 1 anti trypsin genotype MM. PFTs 11/28/2022 with FEV1 0.59 L, 26%, no bronchodilator response, airtrapping, decreased DLCO when corrected for alveolar volume, severe apical panlobular emphysema on CT scan of the neck from 03/04/2019 and chest on 08/13/2022, hypoxic respiratory failure on 2 L NC rest and activity since 2020, hypercarbic respiratory failure with ABG on 2 L was 7.42/56/47 and started on noninvasive ventilation with 4 L bleed in on 12/2022. Unable to tolerate noninvasive ventilation due to mask discomfort despite multiple mask trials. Wheelchair bound after she had a stroke in 2013 with dyspnea on exertion with wheelchair transfers and pivots Echocardiogram from 06/06/2022 with LVEF 55-60, grade 1 diastolic dysfunction, Normal right ventricular size and function. Normal right atrial size. No tricuspid regurg to measure RVSP. Inpatient COPD exacerbation and pneumonia 09/15/2022. 09/15/2022 white blood cell count 18.8, eosinophils 1.3%=244/uL. 08/22/2022 white blood cell count 10.5, eosinophils 3.1% equals 326/uL. Last inpatient hospitalization 06/29/2023 (rhinoviral infection). Currently the patient has COPD exacerbation precipitated by turning the heat on in her building. She was seen in the emergency department with wheezing, treated with Solu-Medrol, bronchodilators and antibiotics for possible pneumonia. 07/31/2025: Patient wore the noninvasive ventilator with a BiPAP mode overnight. When I enter the room she was on the BiPAP. She told me she was much better. She told me she is breathing back to her normal. She denied fever cough, phlegm or hemoptysis. She is afebrile. White blood cell count 12.5, creatinine 1.11, BNP 1520, procalcitonin 0.1, CRP 2.2, D-dimer 1.27. Patient told me the BiPAP was uncomfortable and I placed her on noninvasive ventilation with the AVAPS mode and adjusted the settings to come for resulting in a rate of 14, tidal volume 500, EPAP 7, minimal inspiratory pressure 8, maximal inspiratory pressure 25, inspiratory time 1.2, rise of 5 which is a slowest and 30% FiO2. She was requesting to come off of the noninvasive ventilator and I placed her on 2 L nasal cannula and she had no respiratory distress with saturations 96%. Plan: Agree with treatment for COPD exacerbation. Patient has improved and I will change her Solu-Medrol to prednisone 40 mg p.o. q.day. she has no wheezing and I will decrease her duo nebulizer frequency from q.4 hours to q.6 hours. I will continued Claritin 10 mg p.o. q.day and guaifenesin 600 mg p.o. b.i.d.. I will send a respiratory pathogen panel, urine for Legionella antigen, urine for pneumococcal antigen and mycoplasma IgM looking for infectious etiologies. I will obtain a CT scan of the chest to assess for pneumonia, CHF, or other concurrent illnesses. Patient with positive D-dimer the low clinical suspicion for PE. she has had leg trauma with swelling of the legs and will obtain lower extremity Dopplers to exclude DVT. Discussed with Dr. Leo, will follow with you (2) Respiratory failure with hypoxia and hypercapnia: Qualifiers: Chronicity: acute on chronic Qualified Code(s): J96.21 - Acute and chronic respiratory failure with hypoxia; J96.22 - Acute and chronic respiratory failure with hypercapnia Code(s): J96.91 - Respiratory failure, unspecified with hypoxia; J96.92 - Respiratory failure, unspecified with hypercapnia Status: Acute Assessment and Plan: patient with chronic hypoxemic respiratory failure requiring 4 L bleed in at night with her noninvasive ventilator. last home O2 assessment on 07/03/2023 required 4 L at rest and 5 L with activity. Recently the patient tells me she has when wearing 2 L nasal cannula 24-7 and this is increased to 3 L 24-7 over the last week. Regarding her chronic hypercarbic respiratory failure patient had ABG on 11/28/2022 at 7.42/56/47 on 2 L nasal cannula. Patient was set up with noninvasive ventilation with AVAPS AE mode through via [employer]. with auto breath rate, tidal volume 525, minimum EPAP 5, maximum EPAP 10, minimum pressure support 10, maximum pressure support 20, AVAPS rate 5, inspiratory time 1.0. Patient tried multiple face mass but never could find a mask that she could tolerate and therefore has been non compliant. 01/29/2025: Overnight oximetry on noninvasive ventilator with 4 L bleed in. Recording duration 7 hours and 53 minutes. Basal saturation 97.5. Low saturation 94%. High saturation 99%. Time with saturation less than or equal to 88% was 0 minutes. Oxygen desaturation 0. 4 L provides adequate oxygenation. Will call the patient to determine if she was wearing her noninvasive ventilator or not. 07/30/2025 patient presents with COPD exacerbation and ABG on 2 L nasal cannula 7.. This was a mixed sample with chronic compensated respiratory acidosis. Patient was started on BiPAP rate of 12, pressures 14/6 and 40% FiO2 with repeat blood gas 7.42/94. She said these pressures were uncomfortable and she could not tolerate the BiPAP. 07/31/2025: I changed her to noninvasive ventilation With the AVAPS mode And adjusting the settings to comfort resulting in rate of 14, tidal volume 500, EPAP 7, minimal inspiratory pressure 8, maximal inspiratory pressure 25, inspiratory time 1.0, rise of 5 which is are slowest and 32% FiO2. plan: The patient can wear AVAPS p.r.n. during the day. She should wear AVAPS mode with the settings above tonight. I will chain an overnight oximetry and an ABG prior to removal on these settings. ABG on noninvasive ventilator will be assessed and changes will be made the night of 08/01/2025. (3) Lung cancer: Code(s): C34.90 - Malignant neoplasm of unspecified part of unspecified bronchus or lung Status: Acute Assessment and Plan: patient with a history of tobacco use, 35 pack years, quit 2003. patient with a history of small cell lung cancer in 02/2013 status post chemotherapy and radiation therapy. Is felt that she was cured. Given her continued symptoms and hypoxemic respiratory failure I will obtain a CT scan of the chest. 08/13/2022: Chest CT demonstrated severe apical predominant panlobular emphysema, bilateral lower lobe atelectasis.? No evidence of lung cancer. 01/16/23: Patient has quit for smoking for greater than 15 years and does not qualify for low-dose CT scan. 06/30/23: CT angiogram of the chest shows no pulmonary embolism severe emphysema no concerning nodules or masses. 12/02/23: Quit tobacco in 2003 and does not qualify for low-dose CT scan. 05/18/2024: Patient quit tobacco in 2003 and does not qualify for low-dose CT scan screening. 11/15/2024: Patient quit tobacco in 2003 and does not qualify for low-dose CT scan. 07/31/2025: Will obtain CT scan of the chest. History of Present Illness History of Present Illness Consult date: 07/31/25 Chief complaint: acute hypercarbic failure,copd exacerabtion,cap Narrative: 07/31/2025: This is a new pulmonary consult for COPD exacerbation and acute on chronic hypercarbic and hypoxemic respiratory failure. Patient with a history of gold grade 4 group E COPD with chronic hypercarbic and hypoxemic respiratory failure prescribed a nonnvasive ventilator with the AVAPS mode but is intolerant, 2 L nasal cannula 24-7, diastolic heart failure, small cell lung cancer 02/2013 status post chemotherapy and radiation and felt to be cured. Patient is followed in the Pulmonary Clinic in last seen on 06/02/2025. At that time she was stable on Advair 230-21 at 2 puffs b.i.d., Incruse 1 puff q.day, albuterol p.r.n., 2 L 24-7. She was prescribed noninvasive ventilation but not wearing it because she has failed multiple masks. She was in wheelchair from a previous stroke but had been working with PT at assisted living with walking in the halls with a walker. Medications were continued, recommended regular exercise is stain up-to-date on vaccines. 07/02/2025: The patient was seen in the emergency department for leg trauma after hitting this on her wheelchair with painful swelling. She was diagnosed with a hematoma. Again seen in the ER 07/18/2025 for the same issue and had an I and D with 5 mL expressed. Placed on Keflex. Again seen on 07/21/2025 With leg pain as her PCP but multiple stitches in her leg and a compression bandage. The compression bandage was removed and pain went away. On 07/24/2025 the heater was turned on in her facility and this caused her to have shortness of breath, wheezing and a dry cough. She then developed decreased appetite and pain throughout her body. She had chills but no fever. 07/30/25: Symptoms progressed and she presented to the emergency room on 07/31/25. Her blood pressure is 116/98, heart rate 88, respirations 24 with saturations on 3 L nasal cannula 100%. She was afebrile. She had a faint wheeze with decreased breath sounds. White blood cell count was 15.5, creatinine was 1.12, COVID influenza RSV RT PCR assay negative, MRSA swab negative. ABG on 2 L nasal cannula 7.36//30. He has and fills were 1.9% equals 295 per micro L. patient was placed on BiPAP rate of 12, pressures 14/6 and 40% with a repeat blood gas of 7.42/66/94. Patient was treated with Solu- Medrol, ceftriaxone, doxycycline that was changed to azithromycin. Patient also started on Claritin 10 and guaifenesin 600 p.o. b.i.d.. 07/31/2025: Patient wore the noninvasive ventilator with a BiPAP mode overnight. When I enter the room she was on the BiPAP. She told me she was much better. She told me she is breathing back to her normal. She denied fever cough, phlegm or hemoptysis. She is afebrile. White blood cell count 12.5, creatinine 1.11, BNP 1520, procalcitonin 0.1, CRP 2.2, D-dimer 1.27. Patient told me the BiPAP was uncomfortable and I placed her on noninvasive ventilation with the AVAPS mode and adjusted the settings to come for resulting in a rate of 14, tidal volume 500, EPAP 7, minimal inspiratory pressure 8, maximal inspiratory pressure 25, inspiratory time 1.2, rise of 5 which is a slowest and 30% FiO2. She was requesting to come off of the noninvasive ventilator and I placed her on 2 L nasal cannula and she had no respiratory distress with saturations 96%. DATA: 01/29/25 - Overnight oximetry on noninvasive ventilator with 4 L bleed in. Recording duration 7 hours and 53 minutes. Basal saturation 97.5. Low saturation 94%. High saturation 99%. Time with saturation less than or equal to 88% was 0 minutes. Oxygen desaturation 0. 4 L provides adequate oxygenation. 11/06/23 - CXR - The lungs are clear, without evidence of focal consolidation or pleural effusion. Suspected COPD. Cardiomediastinal silhouette is within normal limits. Bones and soft tissues are unremarkable. 07/03/2023: Home O2 assessment: Rest room air saturations 83%. Rest nasal cannula 2 L saturation 87%. Rest nasal cannula 3 L saturation 88%. Rest nasal cannula 4 L saturation 91%. Exercise nasal cannula 4 L, saturations 88%. Exercise nasal cannula 5 L saturation 90%. Patient requires 4 L at rest and 5 with activity. 07/02/24: Patient wore her home noninvasive ventilator in the hospital, with an AVAPS-AE mode with a rate of 12, tidal volume 400, EPAP minimum 5, maximum EPAP 10, minimal pressure support 10, maximal pressure support 15, rise time of 3 with 4 L bleed in and did well.? Patient had an overnight oximetry with recording time of 7 hours and 31 minutes, average saturation 92%.? Low saturation 88%.? Time with saturation less than or equal to 88% was 1 minute, oxygen desaturation index 0.4.? Patient had a blood gas prior to removal of this machine with pH of 7.44/48/70.? These settings provide adequate oxygenation and ventilation.? 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 06/30/2023: EXAMINATION: CTA chest PE protocol ?INDICATION: Hypoxia. ?COMPARISON: Chest CT 08/12/2022 ?FINDINGS: There is severe emphysema. There is mild atelectasis bilaterally, worst in the lower lobes. No pleural effusion. The heart size is normal. There are coronary artery calcifications. No pericardial effusion. There is no pulmonary embolus. There is a gallstone in the gallbladder which is normal in size. There is a ventral hernia containing colon. There is kyphosis and moderate spondylosis of thoracic spine. There is a chronic burst fracture of T6. There is a chronic compression fracture of L1. ?IMPRESSION: ?1. No pulmonary embolus. ?2. Severe emphysema. ?11/28/2022 PFTs ??The test was performed and results interpreted in accordance with the 2019 and 2005 ATS/ERS Task Force guidelines respectively using the Global Lung Function Initiative-2012 reference equations. Patient demonstrated good effort and cooperation. Reproducibility criteria were met. The quality of the pre bronchodilator spirometry maneuver was Grade A and post bronchodilator spirometry maneuver was Grade A. ??Findings: ??Spirometry: ? There is decreased maximal expiratory airflow at all lung volumes with concave expiratory flow tracing.? The contour the inspiratory flow tracing is normal.? pre bronchodilator FVC is 1.39 L, 48% predicted.? The pre bronchodilator FEV1 is 0.59 L, 26% predicted.? The pre bronchodilator FEV1:? FVC ratio is 42%.? The post bronchodilator FVC is 1.50 L,? representing an 8% increase.? The post bronchodilator FEV1 is 0.63 L, representing a 6% increase.? The post bronchodilator FEV1:? FVC ratio is 42%.? ??Plethysmography:? The total lung capacity is 4.40 L, 85% predicted.? The functional residual capacity is 3.27 L, 110% predicted.? The residual volume is 3.01 L, 133% predicted.? ??Diffusing capacity:? The diffusing capacity unadjusted for hemoglobin and carboxyhemoglobin is 5.2, 25% predicted.? The diffusing capacity adjusted for alveolar volume is 2.58, 61% predicted. ??When compared to PFTs from [facility] on 06/20/2019 the post bronchodilator FVC has decreased from 2.10 L to 1.50 L.? The post bronchodilator FEV1 has decreased from 0.80 L to 0.63 L.? The total lung capacity is unchanged from 4.88 L to 4.40 L.? The functional residual capacity is unchanged from 3.71 L to 3.27 L.? The residual volume is unchanged from 3.24 L to 3.01 L.? The diffusing capacity unadjusted from hemoglobin and carboxyhemoglobin is unchanged from 5.6 to 5.2.? The diffusing capacity adjusted for alveolar volume is unchanged from 2.39 to 2.58. ??Impression:?There is a very severe obstructive abnormality without significant improvement after inhaling a single dose of albuterol.?The increase in residual volume is consistent with?air trapping?from an obstructive abnormality.? The diffusing capacity unadjusted for hemoglobin and carboxyhemoglobin is severely decreased and?remains mildly decreased when adjusted for alveolar volume. ??When compared to previous PFTs there has been a?greater than anticipated time dependent decrease in the FVC and FEV1?with no significant change in the total lung capacity, functional residual capacity, residual volume or DLCO. ?11/28/2022? ABG on 2 L nasal cannula pulse delivery: ? PH 7.42 / 56/47. ? Saturations were 83%.? Checked manually saturations were 84%. ?11/28/2022 ? Home O2 assessment:? Rest room air saturation 84%.? Rest nasal cannula 1 L saturation 86%, rest nasal cannula 2 L saturation 92%.? Exercise 2 L nasal cannula saturation 90%. ? These measurements were made with continuous flow nasal cannula.? I spoke with the floor technician and they attempted to place the patient on 4 L pulse delivery nasal cannula and her saturations remained less than 88%.??The patient requires 2 L oxygen at rest and with exercise at continuous flow. ??? Collectively these results demonstrate progression of the patient's very severe obstructive abnormality consistent with GOLD grade 4 COPD? with chronic hypercarbic respiratory failure from her COPD and hypoxemic respiratory failure from her COPD. ? Patient has chronic hypercarbic respiratory failure from her COPD and would benefit from noninvasive ventilation. ? She would benefit from noninvasive ventilation to prevent further deterioration and subsequent hospitalizations. ? Previously the patient had been on BiPAP on 05/05/2022 and she said that she could not tolerate these pressures and she had claustrophobia.?? I talked to the patient about this and she is also had a stroke with decreased mobility of her right upper extremity and is unsure if she will be able to? initiate her machine and mask at home although she is willing to try. ??? I will initiate home noninvasive ventilation with an AVAPS-AE mode? with a set rate of auto, tidal volume 500, minimal inspiratory pressure 5, maximal expiratory pressure 15, minimal inspiratory pressure 6, maximal inspiratory pressure 25,? rise time 1.0 sec, and 2 L bleed in. These settings can be adjusted for patient comfort on initial set up. ??? The pulmonary function test coordinator has reached out to [facility] to see if this can be coordinated through them and the outpatient clinic will coordinate our efforts with the PFT lab. ?? 08/12/2022 EXAMINATION: CT diagnostic chest wo con ???INDICATION: SOB for 2 days. COPD. History of lung cancer. ???COMPARISON: 07/17/2022 portable AP chest ???02/28/2019 CTA chest ???FINDINGS: Heart size is within normal range. No pericardial or pleural effusion. ???There is extensive thoracic aortic and some great vessel calcifications in addition to prominent coronary artery calcifications. No thoracic aortic aneurysm. ???Normal size and attenuation of the thyroid gland. No hilar or mediastinal mass lesion or lymphadenopathy. ???Moderate to moderately severe emphysema and bilateral pulmonary hyperinflation. ???There is a chronic linear scarring in the right lower lobe and left lower lobe. There is another linear scar or discoid atelectasis in the right lower lobe since 02/28/2019. ???There is minimal atelectasis at the dependent lung bases, both lower lobes. ???Included portions of the adrenal glands are unremarkable. ???One or more ventral abdominal wall hernias. ???Multiple old healed right rib fractures. ???Moderate anterior wedge compression fracture deformity of T6. ???Degenerative disc disease of the lower cervical spine and degenerative spurring of the thoracic spine. ???No suspicious osteolytic or osteoblastic lesions are noted. ???IMPRESSION:? Moderate to moderately severe emphysema ???Mild discoid atelectasis and/or scarring in the lower lobes ???Minimal bilateral lower lobe dependent atelectasis ???Aortic, great vessel and coronary artery atherosclerosis ???06/05/2022 CXR EXAMINATION: XR chest 2V ?INDICATION: SOB,?COMPARISON: 05/19/2022, 05/07/2022 ?FINDINGS: There are small pleural effusions. There is no pneumothorax. There are minimal airspace opacities of the lung bases. The cardiomediastinal silhouette is normal. There is a chronic compression fracture of T6 without significant change. ?IMPRESSION: ?1. Small pleural effusions with minimal bibasilar airspace opacities, likely atelectasis. ???04/03/2022 ABG on 3 L 7.42/49/111 ???03/10/2022 ABG RA 7.42/50/44 ?06/20/2019:? I have PFT report from [facility]. ???Findings: ???Spirometry:? There is decreased maximal expiratory airflow at all lung volumes with concave expiratory flow tracing.? The contour of the inspiratory flow tracing is normal.? The pre bronchodilator FVC is 1.64 L, 64% predicted.? The pre bronchodilator FEV1 is 0.76 L, 37% predicted.? The pre bronchodilator FEV1:? FVC ratio is 47%.? The post bronchodilator FVC is 2.10 L, representing a 28% increase.? The post bronchodilator FEV1 is 0.80 L, representing a 5% increase.? The post bronchodilator FEV1:? FVC ratio is 38%. ???Plethysmography:? The total lung capacity is 4.88 L, 110% predicted.? The functional residual capacity is 3.71 L, 159% predicted.? The residual volume is 3.24 L, 185% predicted. ???Diffusing capacity:? The diffusing capacity unadjusted for hemoglobin and carboxyhemoglobin is 5.6, 28% predicted.? The diffusing capacity adjusted for alveolar volume is 2.39, 66% predicted. ?My?Impression: There is a severe obstructive abnormality with significant improvement after inhaling a single dose of albuterol. The increase in residual volume is consistent with air trapping from an obstructive abnormality.? Hyperinflation is present as demonstrated by the increase in functional residual capacity and is consistent with an obstructive abnormality. The diffusing capacity unadjusted for hemoglobin and carboxyhemoglobin is severely decreased and is mildly decreased when adjusted for alveolar volume. ???When compared to the spirometry on 03/03/2019 the pre bronchodilator FVC has increased from 1.05 L to 1.64 L. The pre bronchodilator FEV1 has increased from 0.47 L to 0.76 L. ?03/03/2019 I have an echocardiogram report from [facility]: ???Summary:? The calculated ejection fraction is 52.? Left ventricular diastolic function is abnormal, grade 1 impaired relaxation.? Right ventricular systolic function is normal.? No evidence of pericardial effusion.? A trace of tricuspid regurgitation normal RV size and function normal right atrial size. ???01/09/2019 echocardiogram report from [facility].? Summary:? The left ventricle size is normal.? The left ventricular systolic function is lower limits of normal with an estimated LV EF of 50-55%.? Left ventricular diastolic function is abnormal grade 1, impaired relaxation, right ventricular systolic pressure is 37, mild aortic valve sclerosis ?03/03/2019:? I have a spirometry report from [facility]. ??Spirometry:? There is decreased maximal expiratory airflow at all lung volumes with concave expiratory flow tracing.? The contour the inspiratory flow tracing is normal.? The FVC is 1.05 L, 36% predicted.? The FEV1 is 0.47 L, 20% predicted.? The FEV1:? FVC ratio is 45%. ???My impression:? There is a very severe obstructive abnormality. ?? ?01/09/2019:? CT angiogram chest report from [facility].? Impression: no CT evidence of pulmonary embolism.? Mosaic perfusion in the upper and lower lobes may represent small airways disease or peripheral airways disease or sequela of radiation therapy if applicable.? The left hilar and suprahilar mass seen in 2012 is no longer present. ? 09/22/2018:? I have a report CT scan of the chest from [facility] demonstrating no pulmonary embolism, mild to moderate emphysema small amount of post infectious residual, no lymphadenopathy no pleural effusions, no pericardial effusion, no pneumothorax. ?? 01/09/2019: ? Report from [facility] ???EXAMINATION:CTA, CHEST FOR PE ???CLINICAL INDICATION: ???68-year-old inpatient with increasing SOB bilateral hand??and leg swelling over the past 6 weeks.? Given history of CHF, COPD,??coronary artery disease and lung carcinoma.??COMPARISON:??CTA chest abdomen pelvis with contrast 01/28/2013 and FDG PET/CT 02/02/2013 ?FINDINGS: ?The study was technically adequate??No intraluminal filling defects, wall thickening, or thrombus is present in??the pulmonary arterial vascular tree to suggest pulmonary embolus ?Although there is no given history of whether this patient had radiation or??chemotherapy the large left hilar and suprahilar mass seen in 2013 is no??longer present.? Mild thickening within the left hilar region of the??previously seen mass.? No recurrent hilar mass or mediastinal or hilar??lymphadenopathy.? Subtle mosaic perfusion of the upper lobes and dependent??lower lobes may represent small airway disease or peripheral airway disease ???or could be sequela of radiation therapy.? Additionally, small bibasilar??effusions and bilateral enhancing lower lobe atelectasis probably??compressive atelectasis.? The mosaic perfusion in the lower lobes has??superimposed interlobar septal thickening and groundglass opacities which??is suggestive of development of pulmonary edema. ???Mild cardiomegaly due to biventricular prominence.? No pericardial??effusion.? There is moderate hepatic venous reflux suggestive of a elevated??right heart pressures..? Normal caliber thoracic aorta.? No evidence of??aortic dissection. ???Included portions of the liver is homogeneous in density.? No definite??enhancing hepatic mass in the upper liver.? The spleen and adrenal glands??and tail of pancreas are unremarkable.? Stable wide neck supra umbilical?epigastric region ventral wall hernia containing nonentrapped nonobstructed?appearing loops of transverse colon unchanged since 2013.? This is only?partially included on this study. ???Bone window imaging fails to demonstrate pathologic bony abnormality.???Interval wedge compression deformity of T6. ?IMPRESSION: ???1. No CT evidence of pulmonary embolus ???2.? Mosaic perfusion in the upper and lower lobes may represent small ???airway disease or peripheral airway disease or sequela of radiation therapy?if applicable. ???3.? Concomitant findings of definite pulmonary edema bibasilar effusions??lower lobe atelectasis may represent CHF; there is always a possibility??this could represent malignant pleural effusions ???4.? Although there is no given history of bladder on this patient has?undergone radiation therapy or chemotherapy the left hilar and suprahilar?mass seen in 2013 is no longer present. ???5.? Wedge compression deformity T6 Since 2013 Review of Systems 2 Constitutional: Constitutional: Reports no additional constitutional complaints Eyes: Eyes: Reports no additional eye complaints ENT: Reports system reviewed and no additional complaints, except as documented Cardiovascular: Cardiovascular: Reports no additional cardiovascular complaints Respiratory: Respiratory: Reports no additional respiratory complaints Gastrointestinal: Gastrointestinal: Reports no additional gastrointestinal complaints Musculoskeletal: Musculoskeletal: Reports no additional musculoskeletal complaints Neurologic: Reports system reviewed and no additional complaints, except as documented Psychiatric: Psychiatric: Reports no additional psychiatric complaints Endocrine: Endocrine: Reports no additional endocrine complaints Hematologic/Lymphatic: Hematologic/Lymphatic: Reports no additional hematologic/lymphatic complaints Allergic/Immunologic: Allergic/Immunologic: Reports no additional allergic/immunologic complaints [facility] Past Medical History Medical History Chronic respiratory failure with hypoxia, on home oxygen therapy 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 Chronic obstructive pulmonary disease Chronic kidney disease, stage 3 Pulmonary embolism (11/2021) Small cell lung cancer Status post chemoradiotherapy. Dyslipidemia Diastolic dysfunction Surgical History Surgical History History of incisional hernia repair History of inguinal hernia repair History of heart artery stent History of cardiac catheterization History of left nephrectomy At age 3, done for unclear reasons. History of abdominal aortic aneurysm repair Family History Family History Sibling Family history of arthritis Lung transplant status, bilateral COPD (chronic obstructive pulmonary disease) Colon cancer Father Melanoma Mother No problems noted. Social History Social History Social History: [id number]: Isabela Ponce, friend. Code status: Full code. Smoking packs per day: 1 Smoking cigarettes per day: 20.0 Years smoked: 40 Smoking pack-years: 40.00 Smoking status: Former smoker Tobacco type: cigarettes Second hand tobacco smoke exposure: No Smoking end date: 09/14/05 Alcohol intake: never Alcohol use details: No alcohol since 2005. Substance use: former Substance use type: does not use Other substance usage details: one pack per day for 40 years Lack of Transportation: No Lack of Food: Never True Current Housing: I Have Housing Concerned About Future Housing: No Difficulty Paying Gas/Electric Bills: No Difficulty Paying for Meds: No Currently Unemployed: No Education: High School Diploma/GED Difficulty w/ Childcare or Family Care: No Additional living arrangements comments: Lives in assisted living. Wheelchair- bound due to right-sided deficits from prior CVA. Spiritual care concerns: No Meds Home Medications and Allergies Home Medications ?Medication ?Instructions ?Recorded ?Confirmed ?Type acetaminophen 500 mg capsule 500 mg PO Q6H PRN Pain (S elizabeth 11/24/19 07/30/25 History Score 1-3) aspirin 81 mg tablet,delayed 81 mg PO DAILY 11/24/19 1 09/29/24 History release (Adult Aspirin Regimen) atorvastatin 40 mg tablet 40 mg PO HS 11/24/19 5 History levetiracetam 250 mg tablet 250 mg PO Q12H 11/24/19 History (Keppra) melatonin 5 mg capsule 5 mg PO HS 11/24/19 07/30/25 History potassium chloride 20 mEq 20 meq PO BID 11/24/1907/30 History tablet,extended release multivitamin with folic acid 400 1 tablet PO DAILY 07/30/25 History mcg tablet (Daily-Annie (with folic acid)) pantoprazole 40 mg tablet,delayed 40 mg PO QAM #30 tab s 05/06/22 07/30/25 Rx release comp.stocking,knee,long,medium #12 ea 06/02/22 5 Rx Held on 07/30/25. Instructions: Patient no longer taking furosemide 40 mg tablet (Lasix) 40 mg PO BID #60 tabs 06/02/22 07/30/25 Rx alprazolam 0.5 mg tablet 0.5 mg PO Q8-12H PRN Anxiety 06/29/23 07/30/25 History ferrous sulfate 325 mg (65 mg 325 mg PO TID 12/02/23 1 09/29/24 History iron) tablet Advair HFA 230 mcg-21 See Rx Instructions .Route 0 05/23/25 07/30/25 Rx mcg/actuation aerosol inhaler .COMPLEX #12 grams (fluticasone propion-salmeterol) albuterol sulfate 90 mcg/actuation 2 puff inhalation Q 6H PRN 07/06/25 07/30/25 Rx aerosol inhaler shortness of breath or wheez ing #8.5 grams escitalopram oxalate 10 mg tablet 10 mg PO DAILY 07/1807/30/25 History levocetirizine 5 mg tablet 5 mg PO QPM 07/18/25 History ropinirole 2 mg tablet 1 mg PO TID 07/18/25 5 History ergocalciferol (vitamin D2) 1,250 1,250 mcg PO WEEKLY 07/30/25 07/30/25 History mcg (50,000 unit) capsule (Vitamin D2) gabapentin 300 mg capsule 300 mg PO TID 07/30/2507/30 History spironolactone 25 mg tablet 25 mg PO DAILY 07/30/25 History (Aldactone) umeclidinium 62.5 mcg/actuation See Rx Instructions .R oute 07/31/25 Rx blister powder for inhalation .COMPLEX #30 grams (Incruse Ellipta) Allergies Allergy/AdvReac Type Severity Reaction Status Date / Time Iodinated Contrast Media Allergy Unknown Rash Verified 07/30/25 17:36 latex Allergy Unknown Unknown Verified 07/30/25 17:36 adhesive tape AdvReac Rash Verified 07/30/25 17:36 nickel AdvReac Rash Verified 07/30/25 17:36 Vital Signs Vital Signs - 24 hr 07/30/25 14:17 07/30/25 15:02 07/30/25 15:05 Temperature 36.8 C Pulse Rate 88 89 89 Respiratory Rate 24 H 22 H 22 H Blood Pressure 116/98 H Pulse Oximetry 100 98 Oxygen Delivery Nasal Cannula Nasal Cannula Oxygen Flow Rate 3 3 Fraction of Inspired Oxygen 07/30/25 15:11 07/30/25 15:12 07/30/25 15:35 Temperature Pulse Rate 98 Respiratory Rate 22 H Blood Pressure Pulse Oximetry 100 99 Oxygen Delivery Nasal Cannula Nasal Cannula Oxygen Flow Rate 2 3 Fraction of Inspired Oxygen 07/30/25 15:35 07/30/25 15:55 07/30/25 16:01 Temperature Pulse Rate 99 100 102 H Respiratory Rate 24 H 28 H 28 H Blood Pressure 150/74 H Pulse Oximetry 98 98 Oxygen Delivery BiPAP Oxygen Flow Rate Fraction of Inspired Oxygen 07/30/25 16:15 07/30/25 16:30 07/30/25 16:30 Temperature Pulse Rate 103 H 104 H Respiratory Rate 26 H 23 H Blood Pressure 129/69 138/97 H Pulse Oximetry 98 98 98 Oxygen Delivery BiPAP Oxygen Flow Rate Fraction of Inspired Oxygen 40 07/30/25 16:52 07/30/25 16:58 07/30/25 17:37 Temperature 37.4 C 38.0 C H Pulse Rate 96 109 H Respiratory Rate 24 H 33 H Blood Pressure 138/97 H 146/73 H Pulse Oximetry 98 97 98 Oxygen Delivery Oxygen Flow Rate Fraction of Inspired Oxygen 07/30/25 18:00 07/30/25 19:02 07/30/25 19:40 Temperature 37.2 C Pulse Rate 95 94 Respiratory Rate 18 Blood Pressure Pulse Oximetry Oxygen Delivery Oxygen Flow Rate Fraction of Inspired Oxygen 07/30/25 19:47 07/30/25 19:50 07/30/25 20:00 Temperature 37.1 C Pulse Rate 94 96 99 Respiratory Rate 18 20 24 H Blood Pressure 126/57 L Pulse Oximetry 97 97 Oxygen Delivery BiPAP Oxygen Flow Rate Fraction of Inspired Oxygen 07/30/25 20:00 07/30/25 20:00 07/30/25 21:38 Temperature Pulse Rate 106 H 90 Respiratory Rate 21 H Blood Pressure Pulse Oximetry Oxygen Delivery BiPAP Oxygen Flow Rate Fraction of Inspired Oxygen 40 07/30/25 21:45 07/30/25 21:53 07/30/25 23:00 Temperature Pulse Rate 96 95 94 Respiratory Rate 22 H 21 H Blood Pressure Pulse Oximetry Oxygen Delivery Oxygen Flow Rate Fraction of Inspired Oxygen 07/30/25 23:15 07/30/25 23:30 07/30/25 23:56 Temperature Pulse Rate 96 98 Respiratory Rate 22 H 18 Blood Pressure Pulse Oximetry 98 Oxygen Delivery BiPAP BiPAP Oxygen Flow Rate Fraction of Inspired Oxygen 40 07/31/25 00:00 07/31/25 00:00 07/31/25 04:00 Temperature 36.6 C Pulse Rate 78 84 74 Respiratory Rate 24 H 20 Blood Pressure 122/62 Pulse Oximetry 97 Oxygen Delivery Oxygen Flow Rate Fraction of Inspired Oxygen 07/31/25 04:00 07/31/25 04:00 07/31/25 04:00 Temperature 36.3 C L Pulse Rate 91 77 Respiratory Rate 27 H Blood Pressure 112/59 L Pulse Oximetry 97 Oxygen Delivery BiPAP Oxygen Flow Rate Fraction of Inspired Oxygen 40 07/31/25 04:03 07/31/25 04:16 07/31/25 07:34 Temperature Pulse Rate 75 82 73 Respiratory Rate 16 16 19 Blood Pressure Pulse Oximetry 98 98 Oxygen Delivery BiPAP BiPAP Oxygen Flow Rate Fraction of Inspired Oxygen 07/31/25 07:44 07/31/25 07:50 07/31/25 08:00 Temperature 36.6 C Pulse Rate 76 73 75 Respiratory Rate 15 16 26 H Blood Pressure 111/58 L Pulse Oximetry 96 Oxygen Delivery Oxygen Flow Rate Fraction of Inspired Oxygen 07/31/25 08:00 07/31/25 08:00 07/31/25 08:36 Temperature Pulse Rate 75 Respiratory Rate Blood Pressure Pulse Oximetry 98 94 Oxygen Delivery BiPAP Oxygen Flow Rate 12 Fraction of Inspired Oxygen 30 07/31/25 10:00 07/31/25 11:28 07/31/25 12:00 Temperature Pulse Rate 76 Respiratory Rate Blood Pressure Pulse Oximetry 95 93 Oxygen Delivery Nasal Cannula Nasal Cannula Oxygen Flow Rate 2 2 Fraction of Inspired Oxygen 07/31/25 12:00 07/31/25 12:00 Temperature 36.7 C Pulse Rate 80 84 Respiratory Rate 20 Blood Pressure 126/95 H Pulse Oximetry 96 Oxygen Delivery Oxygen Flow Rate Fraction of Inspired Oxygen Exam 2 Const: General: cooperative, comfortable and no acute distress O rientation/consciousness: oriented to person, oriented to place and oriented to time HENMT: Head: normal to inspection Ears: hearing grossly normal bilaterally Eyes: General: appearance normal, both eyes and all related structures Neck: Neck: normal visual inspection Chest: Chest palpation & inspection: normal inspection of the chest Resp: Effort & Inspection: normal respiratory effort and able to speak in complete sentences Auscultation: no crackles, no rales, no rhonchi, no wheezes and diminished lung sounds Cardio: Jugular venous distension: no JVD GI: Inspection: normal to inspection GI Palp: No abdominal tenderness Skin: General skin exam: normal color Neuro: General: oriented to person, oriented to place and oriented to time Extrem: General: normal to inspection and edema Other: Positive bilateral lower extremity edema. Psych: Appearance: grossly normal Results Laboratory Findings 07/31/25 03:15 07/31/25 03:15 ABG, PT/INR, D-dimer: ABG ABG pH 7.421 (7.350-7.450) 07/31/25 04:07 ABG pCO2 66.4 mmHg (35.0-45.0) H* 07/31/25 04:07 ABG pO2 93.7 mmHg (80.0-100.0) 07/31/25 04:07 ABG O2 Saturation 97.0 % (95.0-100.0) 07/31/25 04:07 PT/INR, D-dimer D-Dimer 1.27 ug/mL (<0.48) H 07/31/25 09:02 Abnormal lab findings: Abnormal Labs 07/30/25 07/30/25 07/31/25 14:35 15:36 03:15 WBC 15.5 H 12.5 H RBC 3.69 L 3.76 L Hgb 10.6 L 10.9 L Hct 35.4 L 35.6 L MCHC 29.9 L 30.6 L Immature Gran % (Auto) 0.6 H Neut % (Auto) 83.2 H 93.5 H Lymph % (Auto) 6.6 L 4.7 L [place] % (Auto) 1.0 L Lymph # (Auto) 0.59 L [place] # (Auto) 1.2 H Abs Immat Gran (auto) 0.07 H 0.08 H Absolute Neuts (auto) 12.9 H 11.6 H D-Dimer ABG pCO2 76.9 H* ABG pO2 29.5 L* ABG HCO3 42.0 H ABG O2 Saturation 50.2 L* ABG O2 Content 9.4 L Oxyhemoglobin 54.4 L* Total Hemoglobin Chloride 95 L Carbon Dioxide > 40 H 36 H BUN 22 H 24 H Creatinine 1.12 H 1.11 H Estimated GFR 48 L 48 L Glucose 133 H AST 38 H C-Reactive Protein 2.2 H NT-Pro-B Natriuret Pep 1520 H 07/31/25 07/31/25 04:07 09:02 WBC RBC Hgb Hct MCHC Immature Gran % (Auto) Neut % (Auto) Lymph % (Auto) [place] % (Auto) Lymph # (Auto) [place] # (Auto) Abs Immat Gran (auto) Absolute Neuts (auto) D-Dimer 1.27 H ABG pCO2 66.4 H* ABG pO2 ABG HCO3 42.2 H ABG O2 Saturation ABG O2 Content Oxyhemoglobin Total Hemoglobin 11.8 L Chloride Carbon Dioxide BUN Creatinine Estimated GFR Glucose AST C-Reactive Protein NT-Pro-B Natriuret Pep Diagnostic Findings Additional studies: ITS Impressions Chest X-Ray 07/30/25 15:01 Impression: Early bilateral pneumonia
--- NOTE | 2025-07-31 13:22 | IVDEFINITY ---
Prior to administration of IV Definity the patient was educated on the risks and benefits of the imaging enhancing agent including potential adverse side effects. The patient verbalized understanding. Allergies were verified. No exclusion criteria were identified and at least one of the following inclusion criteria were met: 1) physician request, 2) patient technically difficult to image (per the [place] [employer] guidelines of two or more segments not discernable within the apical view), or 3) questionable left ventricular function. ?
--- NOTE | 2025-07-31 14:52 | P.PNIM_ITS ---
Progress Note: A&P Assessment and Plan (1) Acute exacerbation of chronic obstructive pulmonary disease: Code(s): J44.1 - Chronic obstructive pulmonary disease with (acute) exacerbation Status: Acute Plan Acute COPD exacerbation Acute on chronic hypercapnic and hypoxic respiratory failure Right middle lobe pneumonia -patient has longstanding COPD follows Dr. Nava -she has gold grade 4, history of alpha-1 antitrypsin genotype mm -she has air trapping with COPD not a candidate for zephyr valve or surgery -appreciate pulmonology consultation: Discussed with Dr. Nava, plan for AVAPS mode on noninvasive ventilator. With elevated dimer will evaluate for DVT/PE, imaging ordered. 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 We will follow the infection lab panel. -D-dimer 1.27, CT chest noncontrast was ordered which shows small area of consolidation in medial segment of right middle lobe, will follow lower extremity venous duplex. If we still have concern for pulmonary embolism we may need to repeat CT with a CTA chest for PE protocol -pCO2 66.4, P is stable 7.42, likely could hypercarbia is chronic -PT OT consulted for weakness -apnea link ordered for this evening on AVAPS -steroids: Changes Solu-Medrol to prednisone 40 mg daily -nebs: duoneb QID -guaifenesin for cough -patient developing infiltrate in the right middle lobe seen on CT scan -antibiotics: Rocephin/azithromycin 07/30- -at home on Advair Chronic conditions -left lower extremity hematoma: Has been lanced and stitches placed on 07/18, we will remove sutures -heart failure: On Aldactone, Lasix with potassium supplement -RLS: requip -GERD: PPI -insomnia: melatonin -allergies: claritin -siezure disorder: keppra BID -peripheral neuropathy: Gabapentin -depression: Lexapro, p.r.n. Xanax -hyperlipidemia: Aspirin, statin -supplements: On ferrous sulfate, vitamin-D 2, multivitamin Diet: Heart healthy DVT prophylaxis: SCDs, Lovenox. Patient had recent hematoma on her leg which is resolved, will monitor closely for any signs of bleeding Code status: DNR Disposition: Home in 2-3 days Time Spent With Patient Time: 35 minutes Subjective Date/time seen: 07/31/25 14:52 Interval history: Patient seen examined. Patient was admitted overnight with COPD exacerbation and acute chronic hypercarbic respiratory failure. She is very well known to Dr. Nava. Recommendation for pulmonology is to workup for clots with elevated dimer, CTA chest and venous duplex ordered. Pulmonology team will adjust her BiPAP to AVAPS mode. She has pCO2 elevated at 66 hour with stable PH this appears to be chronic. She has stitches on her left lower extremity which are due to be removed, they were placed for a bleeding wound on 07/18. She denies fever, chills, nausea vomiting diarrhea. She states her breathing may be better than yesterday. Family updated at bedside. Echocardiogram from this morning shows EF 40-45%, grade 1 diastolic dysfunction, no pulm htn. Review of Systems Review of Systems: 10 point ROS complete, negative other th an what is specified in HPI. Exam Narrative: - GENERAL: Pleasant elderly woman in no acute distress. - EYES: EOMI. Anicteric. - HENT: Moist mucous membranes. - LUNGS: End-expiratory wheezing bilate rally throughout, no rhonchi - CARDIOVASCULAR: Regular rate and rhyth m. - ABDOMEN: Soft, non-tender and non-dist ended. - EXTREMITIES: 2+ lower extremity edema , peripheral pulses intact, wound on left lower extremity eschar with stitches in place - NEUROLOGIC: No focal neurological defi cits. - PSYCHIATRIC: Awake, Alert and oriented x 3. Appropriate mood and affect. - SKIN: No rashes or lesions. Objective Data Vital Signs Vital Signs: Vital Signs - 24 hr 07/30/25 15:02 07/30/25 15:05 07/30/25 15:11 Temperature Pulse Rate 89 89 Respiratory Rate 22 H 22 H Blood Pressure Pulse Oximetry 98 100 Oxygen Delivery Nasal Cannula Nasal Cannula Oxygen Flow Rate 3 2 Fraction of Inspired Oxygen 07/30/25 15:12 07/30/25 15:35 07/30/25 15:35 Temperature Pulse Rate 98 99 Respiratory Rate 22 H 24 H Blood Pressure 150/74 H Pulse Oximetry 99 98 Oxygen Delivery Nasal Cannula Oxygen Flow Rate 3 Fraction of Inspired Oxygen 07/30/25 15:55 07/30/25 16:01 07/30/25 16:15 Temperature Pulse Rate 100 102 H 103 H Respiratory Rate 28 H 28 H 26 H Blood Pressure 129/69 Pulse Oximetry 98 98 Oxygen Delivery BiPAP Oxygen Flow Rate Fraction of Inspired Oxygen 07/30/25 16:30 07/30/25 16:30 07/30/25 16:52 Temperature Pulse Rate 104 H Respiratory Rate 23 H Blood Pressure 138/97 H Pulse Oximetry 98 98 98 Oxygen Delivery BiPAP Oxygen Flow Rate Fraction of Inspired Oxygen 40 07/30/25 16:58 07/30/25 17:37 07/30/25 18:00 Temperature 37.4 C 38.0 C H Pulse Rate 96 109 H 95 Respiratory Rate 24 H 33 H Blood Pressure 138/97 H 146/73 H Pulse Oximetry 97 98 Oxygen Delivery Oxygen Flow Rate Fraction of Inspired Oxygen 07/30/25 19:02 07/30/25 19:40 07/30/25 19:47 Temperature 37.2 C Pulse Rate 94 94 Respiratory Rate 18 18 Blood Pressure Pulse Oximetry 97 Oxygen Delivery BiPAP Oxygen Flow Rate Fraction of Inspired Oxygen 07/30/25 19:50 07/30/25 20:00 07/30/25 20:00 Temperature 37.1 C Pulse Rate 96 99 106 H Respiratory Rate 20 24 H Blood Pressure 126/57 L Pulse Oximetry 97 Oxygen Delivery Oxygen Flow Rate Fraction of Inspired Oxygen 07/30/25 20:00 07/30/25 21:38 07/30/25 21:45 Temperature Pulse Rate 90 96 Respiratory Rate 21 H 22 H Blood Pressure Pulse Oximetry Oxygen Delivery BiPAP Oxygen Flow Rate Fraction of Inspired Oxygen 40 07/30/25 21:53 07/30/25 23:00 07/30/25 23:15 Temperature Pulse Rate 95 94 96 Respiratory Rate 21 H 22 H Blood Pressure Pulse Oximetry Oxygen Delivery Oxygen Flow Rate Fraction of Inspired Oxygen 07/30/25 23:30 07/30/25 23:56 07/31/25 00:00 Temperature Pulse Rate 98 78 Respiratory Rate 18 Blood Pressure Pulse Oximetry 98 Oxygen Delivery BiPAP BiPAP Oxygen Flow Rate Fraction of Inspired Oxygen 40 07/31/25 00:00 07/31/25 04:00 07/31/25 04:00 Temperature 36.6 C Pulse Rate 84 74 Respiratory Rate 24 H 20 Blood Pressure 122/62 Pulse Oximetry 97 Oxygen Delivery BiPAP Oxygen Flow Rate Fraction of Inspired Oxygen 40 07/31/25 04:00 07/31/25 04:00 07/31/25 04:03 Temperature 36.3 C L Pulse Rate 91 77 75 Respiratory Rate 27 H 16 Blood Pressure 112/59 L Pulse Oximetry 97 98 Oxygen Delivery BiPAP Oxygen Flow Rate Fraction of Inspired Oxygen 07/31/25 04:16 07/31/25 07:34 07/31/25 07:44 Temperature Pulse Rate 82 73 76 Respiratory Rate 16 19 15 Blood Pressure Pulse Oximetry 98 Oxygen Delivery BiPAP Oxygen Flow Rate Fraction of Inspired Oxygen 07/31/25 07:50 07/31/25 08:00 07/31/25 08:00 Temperature 36.6 C Pulse Rate 73 75 75 Respiratory Rate 16 26 H Blood Pressure 111/58 L Pulse Oximetry 96 Oxygen Delivery Oxygen Flow Rate Fraction of Inspired Oxygen 07/31/25 08:00 07/31/25 08:36 07/31/25 10:00 Temperature Pulse Rate 76 Respiratory Rate Blood Pressure Pulse Oximetry 98 94 Oxygen Delivery BiPAP Oxygen Flow Rate 12 Fraction of Inspired Oxygen 30 07/31/25 11:28 07/31/25 12:00 07/31/25 12:00 Temperature Pulse Rate 80 Respiratory Rate Blood Pressure Pulse Oximetry 95 93 Oxygen Delivery Nasal Cannula Nasal Cannula Oxygen Flow Rate 2 2 Fraction of Inspired Oxygen 07/31/25 12:00 07/31/25 13:24 07/31/25 13:30 Temperature 36.7 C Pulse Rate 84 85 90 Respiratory Rate 20 18 18 Blood Pressure 126/95 H Pulse Oximetry 96 Oxygen Delivery Oxygen Flow Rate Fraction of Inspired Oxygen 07/31/25 14:00 07/31/25 14:03 Temperature Pulse Rate 90 Respiratory Rate Blood Pressure Pulse Oximetry Oxygen Delivery Nasal Cannula Oxygen Flow Rate 2 Fraction of Inspired Oxygen Intake/Output Intake/Output: Intake & Output 07/28/25 07/29/25 07/30/25 07/31/25 23:59 23:59 23:59 23:59 Intake Total 300 25 Output Total 250 Balance 300 -225 Meds/Results Medications: Active Medications Generic Name Dose Route Start Last Admin Trade Name Freq PRN Reason Stop Dose Admin Acetaminophen 650 mg 07/30/25 18:01 07/31/25 03:49 Acetaminophen 325 Mg Tablet PO 650 mg Q6H PRN Administration Mild Pain (1-3) or Fever Albuterol/Ipratropium 3 ml 07/31/25 14:00 07/31/25 13:22 Ipratropium 0.5 Mg/Albuterol Sulfate 2.5 Mg (Base) Ampul.Neb 3 Ml INHALATION 3 ml Q6HRT JESSIE Administration Alprazolam 0.5 mg 07/30/25 23:58 07/31/25 03:49 Alprazolam (*Crx) 0.5 Mg Tablet PO 0.5 mg Q8H PRN Administration Anxiety Aspirin 81 mg 07/31/25 09:00 07/31/25 08:43 Aspirin 81 Mg Enteric Tablet PO 81 mg DAILY JESSIE Administration Atorvastatin Calcium 40 mg 07/30/25 21:00 07/30/25 20:48 Atorvastatin 40 Mg Tablet PO 40 mg HS JESSIE Administration Enoxaparin Sodium 40 mg 07/30/25 21:00 07/30/25 21:43 Enoxaparin 40 Mg/0.4 Ml Syringe SUB-Q 40 mg HS JESSIE Administration Escitalopram Oxalate 10 mg 07/31/25 09:00 07/31/25 08:45 Escitalopram Oxalate 10 Mg Tablet PO 10 mg DAILY JESSIE Administration Furosemide 40 mg 07/31/25 09:00 07/31/25 08:45 Furosemide 40 Mg Tablet PO 40 mg On Hold: 07/31/25 11:06 BID JESSIE Administration Gabapentin 300 mg 07/31/25 09:00 07/31/25 12:10 Gabapentin 300 Mg Capsule PO 300 mg TID JESSIE Administration Guaifenesin 600 mg 07/31/25 09:00 07/31/25 08:45 Guaifenesin 12 Hr 600 Mg Tabcr PO 600 mg Q12HR JESSIE Administration Ceftriaxone Sodium 1 gm/ 50 mls @ 100 mls/hr 07/31/25 16:00 Sodium Chloride IVPB Q24H JESSIE Azithromycin 500 mg/ Sodium 250 mls @ 250 mls/hr 07/30/25 19:00 07/30/25 20:50 Chloride IVPB 08/03/25 19:59 Infused Q24H JESSIE Infusion Levetiracetam 250 mg 07/30/25 21:00 07/31/25 08:45 Levetiracetam 250 Mg Tablet PO 250 mg Q12HR JESSIE Administration Loratadine 10 mg 07/30/25 21:00 07/30/25 20:49 Loratadine 10 Mg Tablet PO 10 mg HS JESSIE Administration Melatonin 5 mg 07/30/25 18:38 07/30/25 20:49 Melatonin 5 Mg Tablet PO 5 mg HS PRN Administration Insomnia Pantoprazole Sodium 40 mg 07/31/25 09:00 07/31/25 08:45 Pantoprazole 40 Mg Tablet PO 40 mg QAM JESSIE Administration Potassium Chloride 20 meq 07/31/25 09:00 07/31/25 08:45 Potassium Chloride 20 Meq Er Tablet PO 20 meq BID JESSIE Administration Prednisone 40 mg 07/31/25 11:50 07/31/25 12:10 Prednisone 20 Mg Tablet PO 40 mg DAILY@0800 JESSIE Administration Ropinirole HCl 1 mg 07/31/25 09:00 07/31/25 12:10 Ropinirole Hcl 1 Mg Tablet PO 1 mg TID JESSIE Administration Spironolactone 25 mg 07/31/25 09:00 07/31/25 08:43 Spironolactone 25 Mg Tablet PO 25 mg DAILY JESISE Administration Radiology Results: ITS Impressions Chest X-Ray 07/30/25 15:01 Impression: Early bilateral pneumonia Chest CT 07/31/25 14:05 IMPRESSION: Small area of consolidation in the medial segment of the right middle lobe consistent with early pneumonia. Finding should be followed radiographically until clear. Labs Labs: Laboratory Results - last 24 hr 07/30/25 07/30/25 07/30/25 14:32 14:35 15:36 WBC RBC Hgb Hct MCV MCH MCHC RDW Plt Count MPV Immature Gran % (Auto) Neut % (Auto) Lymph % (Auto) [place] % (Auto) Eos % (Auto) Baso % (Auto) Lymph # (Auto) [place] # (Auto) Eos # (Auto) Baso # (Auto) Abs Immat Gran (auto) Absolute Neuts (auto) Absolute Nucleated RBC Band Neutrophils % Nucleated RBC % Platelet Estimate Anisocytosis Schistocytes D-Dimer Puncture Site Right radial ABG pH 7.355 ABG pCO2 76.9 H* ABG pO2 29.5 L* ABG PO2/FiO2 Ratio 1.05 ABG HCO3 42.0 H ABG O2 Saturation 50.2 L* ABG O2 Content 9.4 L ABG Base Excess 13.3 A-a Gradient 79.4 Oxyhemoglobin 54.4 L* Total Hemoglobin 12.3 O2 Delivery Device Nasal cannula O2 Liters/Min 2.0 FiO2 28 Expiratory Pressure Inspiratory Pressure Sodium 141 Potassium 4.4 Chloride 95 L Carbon Dioxide > 40 H Anion Gap BUN 22 H Creatinine 1.12 H Estim Creat Clear Calc 40 Estimated GFR 48 L Glucose 110 Calcium 9.3 Magnesium Total Bilirubin 0.5 AST 36 ALT 29 Alkaline Phosphatase 65 C-Reactive Protein NT-Pro-B Natriuret Pep Total Protein 6.7 Albumin 3.6 Procalcitonin Nasal MRSA (PCR) Influenza A (RT-PCR) Negative Influenza B (RT-PCR) Negative RSV (RT-PCR) Negative SARS-CoV-2 RNA (RT-PCR) Negative 07/31/25 07/31/25 07/31/25 03:15 04:07 05:13 WBC 12.5 H RBC 3.76 L Hgb 10.9 L Hct 35.6 L MCV 94.7 MCH 29.0 MCHC 30.6 L RDW 14.5 Plt Count 299 MPV 9.8 Immature Gran % (Auto) 0.6 H Neut % (Auto) 93.5 H Lymph % (Auto) 4.7 L [place] % (Auto) 1.0 L Eos % (Auto) 0.0 Baso % (Auto) 0.2 Lymph # (Auto) 0.59 L [place] # (Auto) 0.1 Eos # (Auto) 0.0 Baso # (Auto) 0.0 Abs Immat Gran (auto) 0.08 H Absolute Neuts (auto) 11.6 H Absolute Nucleated RBC 0.000 Band Neutrophils % Not Reportable Nucleated RBC % 0.0 Platelet Estimate Adequate Anisocytosis 1+ Schistocytes None seen D-Dimer Puncture Site Right radial ABG pH 7.421 ABG pCO2 66.4 H* ABG pO2 93.7 ABG PO2/FiO2 Ratio 2.34 ABG HCO3 42.2 H ABG O2 Saturation 97.0 ABG O2 Content 16.2 ABG Base Excess 15.0 A-a Gradient 115.1 Oxyhemoglobin 96.7 Total Hemoglobin 11.8 L O2 Delivery Device Bipap O2 Liters/Min Not Reportable FiO2 40 Expiratory Pressure 6 Inspiratory Pressure 14 Sodium 139 Potassium 4.4 Chloride 98 Carbon Dioxide 36 H Anion Gap 5 BUN 24 H Creatinine 1.11 H Estim Creat Clear Calc 36 Estimated GFR 48 L Glucose 133 H Calcium 8.9 Magnesium 2.2 Total Bilirubin 0.5 AST 38 H ALT 32 Alkaline Phosphatase 63 C-Reactive Protein 2.2 H NT-Pro-B Natriuret Pep 1520 H Total Protein 7.1 Albumin 3.9 Procalcitonin Nasal MRSA (PCR) Not detected Influenza A (RT-PCR) Influenza B (RT-PCR) RSV (RT-PCR) SARS-CoV-2 RNA (RT-PCR) 07/31/25 09:02 WBC RBC Hgb Hct MCV MCH MCHC RDW Plt Count MPV Immature Gran % (Auto) Neut % (Auto) Lymph % (Auto) [place] % (Auto) Eos % (Auto) Baso % (Auto) Lymph # (Auto) [place] # (Auto) Eos # (Auto) Baso # (Auto) Abs Immat Gran (auto) Absolute Neuts (auto) Absolute Nucleated RBC Band Neutrophils % Nucleated RBC % Platelet Estimate Anisocytosis Schistocytes D-Dimer 1.27 H Puncture Site ABG pH ABG pCO2 ABG pO2 ABG PO2/FiO2 Ratio ABG HCO3 ABG O2 Saturation ABG O2 Content ABG Base Excess A-a Gradient Oxyhemoglobin Total Hemoglobin O2 Delivery Device O2 Liters/Min FiO2 Expiratory Pressure Inspiratory Pressure Sodium Potassium Chloride Carbon Dioxide Anion Gap BUN Creatinine Estim Creat Clear Calc Estimated GFR Glucose Calcium Magnesium Total Bilirubin AST ALT Alkaline Phosphatase C-Reactive Protein NT-Pro-B Natriuret Pep Total Protein Albumin Procalcitonin 0.1 Nasal MRSA (PCR) Influenza A (RT-PCR) Influenza B (RT-PCR) RSV (RT-PCR) SARS-CoV-2 RNA (RT-PCR)
[2025-07-31] MEDS: cefTRIAXone 1 GM in SODIUM CHLORIDE 0.9% IV 50 ML 100 ML IVPB (15:51)
[2025-07-31] MEDS: AZITHROMYCIN IV 500 MG in SODIUM CHLORIDE 0.9% IV 250 ML IVPB (18:00)
[2025-07-31] MEDS: ENOXAPARIN 40 MG/0.4 ML SYRINGE SUB-Q (20:20)
[2025-07-31] MEDS: ATORVASTATIN 40 MG TABLET PO (20:20)
[2025-07-31] MEDS: LORATADINE 10 MG TABLET PO (20:20)
[2025-08-01] VITALS (24 sets, daily range): BP systolic 118–142; BP diastolic 57–73; PULSE 57–101; RESP 15–29; TEMP 36.4–36.7; O2SAT 91–100
[2025-08-01] MEDS: IPRATROPIUM 0.5 MG/ALBUTEROL SULFATE 2.5 MG (BASE) AMPUL.NEB 3 ML INHALATION ×4 (01:47→19:20)
--- NOTE | 2025-08-01 01:47 | PCRCNOTE ---
Pt having an apnea link procedure. 0200 tx omitted.
[2025-08-01 04:51] LABS: Alveolar/Arterial O2 Gradient 74.5 mmHg; Fractional Inspired Oxygen 32 %; HCO3 ABG 37.8 mEq/l (22.0-26.0); Oxygen Content ABG 16.0 %vol (16.0-22.0); Oxygen Saturation ABG 96.0 % (95.0-100.0); PO2 ABG 83.0 mmHg (80.0-100.0); PO2 FiO2 Ratio Arterial Blood 2.59 %
[2025-08-01 04:56] LABS: Modified Allen's Test Pass; PCO2 ABG 60.4 mmHg (35.0-45.0); Site Drawn RIGHT RADIAL
--- NOTE | 2025-08-01 08:13 | PM.IMPN ---
Progress Note: A&P Assessment and Plan (1) Acute exacerbation of chronic obstructive pulmonary disease: Code(s): J44.1 - Chronic obstructive pulmonary disease with (acute) exacerbation Status: Acute Plan Acute COPD exacerbation Acute on chronic hypercapnic and hypoxic respiratory failure Right middle lobe pneumonia -patient has longstanding COPD follows Dr. Nava -she has gold grade 4, history of alpha-1 antitrypsin genotype mm -she has air trapping with COPD not a candidate for zephyr valve or surgery -appreciate pulmonology consultation: Discussed with Dr. Nava, plan for AVAPS mode on noninvasive ventilator. With elevated dimer will evaluate for DVT/PE, imaging ordered. Trials Manager changing to p.o. prednisone and decreased Chel frequency. We will follow the infection lab panel. -D-dimer 1.27, CT chest noncontrast was ordered which shows small area of consolidation in medial segment of right middle lobe, will follow lower extremity venous duplex. If we still have concern for pulmonary embolism we may need to repeat CT with a CTA chest for PE protocol -pCO2 66.4, P is stable 7.42, likely could hypercarbia is chronic -PT OT consulted for weakness -apnea link ordered for this evening on AVAPS -steroids: Changes Solu-Medrol to prednisone 40 mg daily -nebs: duoneb QID -guaifenesin for cough -patient developing infiltrate in the right middle lobe seen on CT scan -antibiotics: Rocephin/azithromycin 07/30- -at home on Advair Chronic conditions -left lower extremity hematoma: Has been lanced and stitches placed on 07/18, we will remove sutures -heart failure: On Aldactone, Lasix with potassium supplement -RLS: requip -GERD: PPI -insomnia: melatonin -allergies: claritin -siezure disorder: keppra BID -peripheral neuropathy: Gabapentin -depression: Lexapro, p.r.n. Xanax -hyperlipidemia: Aspirin, statin -supplements: On ferrous sulfate, vitamin-D 2, multivitamin Diet: Heart healthy DVT prophylaxis: SCDs, Lovenox. Patient had recent hematoma on her leg which is resolved, will monitor closely for any signs of bleeding Code status: DNR Disposition: Home in 2-3 days Subjective Date/time seen: 08/01/25 08:13 Interval history: 08/01: Consulted cardiology due to reduced ejection fraction. Patient reports breathing better than yesterday. No evidence of lower extremity DVT. Review of Systems Review of Systems: 10 point ROS complete, negative other than what is specified in HPI. All systems reviewed & are unremarkable except as noted in HPI and below Exam Narrative: - GENERAL: Pleasant elderly woman in no acute distress. - EYES: EOMI. Anicteric. - HENT: Moist mucous membranes. - LUNGS: End-expiratory wheezing bilaterally throughout, no rhonchi - CARDIOVASCULAR: Regular rate and rhythm. - ABDOMEN: Soft, non-tender and non-distended. - EXTREMITIES: 2+ lower extremity edema, peripheral pulses intact, wound on left lower extremity eschar with stitches in place - NEUROLOGIC: No focal neurological deficits. - PSYCHIATRIC: Awake, Alert and oriented x 3. Appropriate mood and affect. - SKIN: No rashes or lesions. Objective Data Vital Signs Vital Signs: Vital Signs - 24 hr 07/31/25 08:36 07/31/25 10:00 07/31/25 11:28 Temperature Pulse Rate 76 Respiratory Rate Blood Pressure Pulse Oximetry 94 95 Oxygen Delivery Nasal Cannula Oxygen Flow Rate 2 Fraction of Inspired Oxygen 07/31/25 12:00 07/31/25 12:00 07/31/25 12:00 Temperature 98.1 F Pulse Rate 80 84 Respiratory Rate 20 Blood Pressure 126/95 H Pulse Oximetry 93 96 Oxygen Delivery Nasal Cannula Oxygen Flow Rate 2 Fraction of Inspired Oxygen 07/31/25 13:24 07/31/25 13:30 07/31/25 14:00 Temperature Pulse Rate 85 90 90 Respiratory Rate 18 18 Blood Pressure Pulse Oximetry Oxygen Delivery Oxygen Flow Rate Fraction of Inspired Oxygen 07/31/25 14:03 07/31/25 14:31 07/31/25 16:00 Temperature Pulse Rate 78 Respiratory Rate Blood Pressure Pulse Oximetry Oxygen Delivery Nasal Cannula Nasal Cannula Oxygen Flow Rate 2 2 Fraction of Inspired Oxygen 07/31/25 16:00 07/31/25 16:00 07/31/25 18:00 Temperature 98.3 F Pulse Rate 81 73 Respiratory Rate 22 H Blood Pressure 119/56 L Pulse Oximetry 96 97 Oxygen Delivery Nasal Cannula Oxygen Flow Rate 2 Fraction of Inspired Oxygen 07/31/25 19:58 07/31/25 20:00 07/31/25 20:00 Temperature 97.5 F L Pulse Rate 82 80 74 Respiratory Rate 20 21 H Blood Pressure 127/61 Pulse Oximetry 96 Oxygen Delivery Oxygen Flow Rate Fraction of Inspired Oxygen 07/31/25 20:04 07/31/25 20:04 07/31/25 21:50 Temperature Pulse Rate 70 78 Respiratory Rate 18 22 H Blood Pressure Pulse Oximetry 95 93 Oxygen Delivery Nasal Cannula BiPAP Oxygen Flow Rate 2 Fraction of Inspired Oxygen 07/31/25 21:59 07/31/25 22:00 08/01/25 00:00 Temperature 97.5 F L Pulse Rate 70 61 Respiratory Rate 15 Blood Pressure 120/61 Pulse Oximetry 93 98 Oxygen Delivery BiPAP Oxygen Flow Rate Fraction of Inspired Oxygen 32 08/01/25 00:00 08/01/25 02:00 08/01/25 02:10 Temperature Pulse Rate 61 61 57 L Respiratory Rate 19 Blood Pressure Pulse Oximetry 100 Oxygen Delivery BiPAP Oxygen Flow Rate Fraction of Inspired Oxygen 08/01/25 04:00 08/01/25 04:00 08/01/25 06:00 Temperature 98.1 F Pulse Rate 61 57 L 66 Respiratory Rate 15 Blood Pressure 125/65 Pulse Oximetry 97 Oxygen Delivery Oxygen Flow Rate Fraction of Inspired Oxygen 08/01/25 07:31 08/01/25 07:59 Temperature 98.0 F Pulse Rate 69 91 Respiratory Rate 18 Blood Pressure 142/72 H Pulse Oximetry 100 95 Oxygen Delivery Oxygen Flow Rate Fraction of Inspired Oxygen Intake/Output Intake/Output: Intake & Output 07/29/25 07/30/25 07/31/25 08/01/25 23:59 23:59 23:59 23:59 Intake Total 300 1105 60 Output Total 650 320 Balance 300 455 -260 Meds/Results Medications: Active Medications Generic Name Dose Route Start Last Admin Trade Name Monsterq PRN Reason Stop Dose Admin Acetaminophen 650 mg 07/30/25 18:01 07/31/25 03:49 Acetaminophen 325 Mg Tablet PO 650 mg Q6H PRN Administration Mild Pain (1-3) or Fever Albuterol/Ipratropium 3 ml 07/31/25 14:00 08/01/25 01:47 Ipratropium 0.5 Mg/Albuterol Sulfate 2.5 Mg (Base) Ampul.Neb 3 Ml INHALATION 3 ml Q6HRT JESSIE Administration Alprazolam 0.5 mg 07/30/25 23:58 07/31/25 03:49 Alprazolam (*Crx) 0.5 Mg Tablet PO 0.5 mg Q8H PRN Administration Anxiety Aspirin 81 mg 07/31/25 09:00 07/31/25 08:43 Aspirin 81 Mg Enteric Tablet PO 81 mg DAILY JESSIE Administration Atorvastatin Calcium 40 mg 07/30/25 21:00 07/31/25 20:20 Atorvastatin 40 Mg Tablet PO 40 mg HS JESSIE Administration Enoxaparin Sodium 40 mg 07/30/25 21:00 07/31/25 20:20 Enoxaparin 40 Mg/0.4 Ml Syringe SUB-Q 40 mg HS JESSIE Administration Escitalopram Oxalate 10 mg 07/31/25 09:00 07/31/25 08:45 Escitalopram Oxalate 10 Mg Tablet PO 10 mg DAILY JESSIE Administration Furosemide 40 mg 07/31/25 09:00 07/31/25 08:45 Furosemide 40 Mg Tablet PO 40 mg On Hold: 07/31/25 11:06 BID JESSIE Administration Gabapentin 300 mg 07/31/25 09:00 07/31/25 16:03 Gabapentin 300 Mg Capsule PO 300 mg TID JESSIE Administration Guaifenesin 600 mg 07/31/25 09:00 07/31/25 20:20 Guaifenesin 12 Hr 600 Mg Tabcr PO 600 mg Q12HR JESSIE Administration Ceftriaxone Sodium 1 gm/ 50 mls @ 100 mls/hr 07/31/25 16:00 07/31/25 15:51 Sodium Chloride IVPB 100 mls/hr Q24H JESSIE Administration Azithromycin 500 mg/ Sodium 250 mls @ 250 mls/hr 07/30/25 19:00 07/31/25 18:00 Chloride IVPB 08/03/25 19:59 250 mls/hr Q24H JESSIE Administration Levetiracetam 250 mg 07/30/25 21:00 07/31/25 20:19 Levetiracetam 250 Mg Tablet PO 250 mg Q12HR JESSIE Administration Loratadine 10 mg 07/30/25 21:00 07/31/25 20:20 Loratadine 10 Mg Tablet PO 10 mg HS JESSIE Administration Melatonin 5 mg 07/30/25 18:38 07/30/25 20:49 Melatonin 5 Mg Tablet PO 5 mg HS PRN Administration Insomnia Pantoprazole Sodium 40 mg 07/31/25 09:00 07/31/25 08:45 Pantoprazole 40 Mg Tablet PO 40 mg QAM JESSIE Administration Potassium Chloride 20 meq 07/31/25 09:00 07/31/25 16:03 Potassium Chloride 20 Meq Er Tablet PO 20 meq BID JESSIE Administration Prednisone 40 mg 07/31/25 11:50 07/31/25 12:10 Prednisone 20 Mg Tablet PO 40 mg DAILY@0800 JESSIE Administration Ropinirole HCl 1 mg 07/31/25 09:00 07/31/25 16:03 Ropinirole Hcl 1 Mg Tablet PO 1 mg TID JESSIE Administration Spironolactone 25 mg 07/31/25 09:00 07/31/25 08:43 Spironolactone 25 Mg Tablet PO 25 mg DAILY JESSIE Administration Radiology Results: ITS Impressions Chest X-Ray 07/30/25 15:01 Impression: Early bilateral pneumonia Chest CT 07/31/25 14:05 IMPRESSION: Small area of consolidation in the medial segment of the right middle lobe consistent with early pneumonia. Finding should be followed radiographically until clear. Venous Doppler Study 08/01/25 08:07 Impression: Negative for DVT. Labs Labs: Laboratory Results - last 24 hr 07/31/25 07/31/25 08/01/25 03:15 09:02 04:38 D-Dimer 1.27 H Puncture Site Right radial ABG pH 7.414 ABG pCO2 60.4 H* ABG pO2 83.0 ABG PO2/FiO2 Ratio 2.59 ABG HCO3 37.8 H ABG O2 Saturation 96.0 ABG O2 Content 16.0 ABG Base Excess 11.1 A-a Gradient 74.5 Oxyhemoglobin 95.9 Total Hemoglobin 11.8 L O2 Delivery Device Bipap O2 Liters/Min Not Reportable FiO2 32 Expiratory Pressure 8 Inspiratory Pressure 25 C-Reactive Protein 2.2 H Procalcitonin 0.1 Quality VTE Prophylaxis VTE prophylaxis: pharmacologic ordered Hospitalist [facility] Advance Care Plan I have confirmed that the patient's Advanced Care Plan is present, code status is documented, or surrogate decision maker is listed in patient medical record.: Yes Medication Reconciliation I have utilized all available resources to obtain, update and review the patients current medications (includes all prescriptions, OTC, herbals, cannabis, and nutritional supplements).: Yes
[2025-08-01] MEDS: GABAPENTIN 300 MG CAPSULE PO ×3 (08:23→16:58)
[2025-08-01] MEDS: guaiFENesin 12 HR 600 MG TABCR PO (08:23)
[2025-08-01] MEDS: ASPIRIN 81 MG ENTERIC TABLET PO (08:23)
[2025-08-01] MEDS: ESCITALOPRAM OXALATE 10 MG TABLET PO (08:23)
[2025-08-01] MEDS: POTASSIUM CHLORIDE 20 MEQ ER TABLET PO ×2 (08:23→16:58)
[2025-08-01] MEDS: SPIRONOLACTONE 25 MG TABLET PO (08:24)
[2025-08-01] MEDS: PANTOPRAZOLE 40 MG TABLET PO (08:24)
[2025-08-01 09:28] LABS: Hematocrit 37.1 % (37.0-47.0); Hemoglobin 11.3 g/dL (12.0-15.0); Mean Corpuscular HGB Conc 30.5 g/dl (32-36); Mean Corpuscular Hemoglobin 29.2 pg (26-34); Mean Corpuscular Volume 95.9 fl (80-100); Platelet Count Result 287 k/mm3 (150-375); Red Blood Count 3.87 M/mm3 (4.2-5.4); White Blood Count 14.0 K/mm3 (4.5-10.0)
[2025-08-01 10:07] LABS: Alanine Aminotransferase 32 U/L (6-35); Albumin Level 3.9 g/dL (3.5-5.1); Alkaline Phosphatase 60 U/L (38-126); Anion Gap 5 mmol/L (4-12); Aspartate Amino Transferase 38 U/L (14-36); Bilirubin,Total 0.5 mg/dL (0.2-1.3); Blood Urea Nitrogen 37 mg/dL (7-17); Calcium 9.0 mg/dL (8.4-10.2); Carbon Dioxide 36 mmol/L (22-30); Chloride 99 mmol/L (98-107); Estimated CRCL calculation 33 ml/min; Estimated Glomerular Filt Rate 44; Glucose 101 mg/dL (65-110); Potassium 3.9 mmol/L (3.4-5.0); Sodium 140 mmol/L (137-145); Total Protein 7.1 g/dL (6.3-8.2)
--- NOTE | 2025-08-01 11:29 | P.PNPL_ITS ---
Progress Note: A&P Assessment and Plan (1) Chronic obstructive pulmonary disease: Qualifiers: COPD type: COPD with acute exacerbation Qualified Code(s): J44.1 - Chronic obstructive pulmonary disease with (acute) exacerbation Code(s): J44.9 - Chronic obstructive pulmonary disease, unspecified Status: Acute Assessment and Plan: GOLD grade 4 group E COPD Patient with tobacco use (35 PY, quit 2003), Alpha 1 anti trypsin genotype MM. PFTs 11/28/2022 with FEV1 0.59 L, 26%, no bronchodilator response, airtrapping, decreased DLCO when corrected for alveolar volume, severe apical panlobular emphysema on CT scan of the neck from 03/04/2019 and chest on 08/13/2022, hypoxic respiratory failure on 2 L NC rest and activity since 2020, hypercarbic respiratory failure with ABG on 2 L was 7.42/56/47 and started on noninvasive ventilation with 4 L bleed in on 12/2022. Unable to tolerate noninvasive ventilation due to mask discomfort despite multiple mask trials. Wheelchair bound after she had a stroke in 2013 with dyspnea on exertion with wheelchair transfers and pivots Echocardiogram from 06/06/2022 with LVEF 55-60, grade 1 diastolic dysfunction, Normal right ventricular size and function. Normal right atrial size. No tricuspid regurg to measure RVSP. Inpatient COPD exacerbation and pneumonia 09/15/2022. 09/15/2022 white blood cell count 18.8, eosinophils 1.3%=244/uL. 08/22/2022 white blood cell count 10.5, eosinophils 3.1% equals 326/uL. Last inpatient hospitalization 06/29/2023 (rhinoviral infection). Currently the patient has COPD exacerbation precipitated by turning the heat on in her building. She was seen in the emergency department with wheezing, treated with Solu-Medrol, bronchodilators and antibiotics for possible pneumonia. 07/31/2025: Patient wore the noninvasive ventilator with a BiPAP mode overnight. When I enter the room she was on the BiPAP. She told me she was much better. She told me she is breathing back to her normal. She denied fever cough, phlegm or hemoptysis. She is afebrile. White blood cell count 12.5, creatinine 1.11, BNP 1520, procalcitonin 0.1, CRP 2.2, D-dimer 1.27. Patient told me the BiPAP was uncomfortable and I placed her on noninvasive ventilation with the AVAPS mode and adjusted the settings to come for resulting in a rate of 14, tidal volume 500, EPAP 7, minimal inspiratory pressure 8, maximal inspiratory pressure 25, inspiratory time 1.2, rise of 5 which is a slowest and 30% FiO2. She was requesting to come off of the noninvasive ventilator and I placed her on 2 L nasal cannula and she had no respiratory distress with saturations 96%. Plan: Agree with treatment for COPD exacerbation. Patient has improved and I will change her Solu-Medrol to prednisone 40 mg p.o. q.day. she has no wheezing and I will decrease her duo nebulizer frequency from q.4 hours to q.6 hours. I will continued Claritin 10 mg p.o. q.day and guaifenesin 600 mg p.o. b.i.d.. I will send a respiratory pathogen panel, urine for Legionella antigen, urine for pneumococcal antigen and mycoplasma IgM looking for infectious etiologies. I will obtain a CT scan of the chest to assess for pneumonia, CHF, or other concurrent illnesses. Patient with positive D-dimer the low clinical suspicion for PE. she has had leg trauma with swelling of the legs and will obtain lower extremity Dopplers to exclude DVT. Later in the day patient had a CT scan of the chest which demonstrated a new right middle lobe infiltrate and severe apical predominant centrilobular emphysema. Echocardiogram with an LVEF of 40-45%, grade 1 diastolic dysfunction, normal RV size and function. Normal right atrial size. PASP 19. 08/01/2025: Patient tells me she has rest shortness of breath and the same dyspnea on exertion is yesterday. She has coughing but the phlegm is stuck in her throat. Her nasal congestion is the same. Overall she feels slightly worse than yesterday. When I enter the room she was on 2 L nasal cannula saturation 90%. She is afebrile. White blood cell count 12.5, creatinine 1.19, yesterday she was positive 455 mL and is cumulative positive 495 mL since admission. Weight today is 66.4. Plan: Will continue treatment for COPD exacerbation and pneumonia. Continue prednisone 40 mg p.o. q.day, day 3. Continue ceftriaxone and azithromycin, both day 3. Continue DuoNebs q.6 hours. I will increase guaifenesin from 600 to 1200 mg p.o. b.i.d.. I will add a Cornet flutter valve. Continue Claritin 10 Q.day. respiratory pathogen panel, urine for Legionella antigen, urine for pneumococcal antigen, serum mycoplasma IgM pending. Discussed with Dr. Wilkins, will follow with you (2) Respiratory failure with hypoxia and hypercapnia: Qualifiers: Chronicity: acute on chronic Qualified Code(s): J96.21 - Acute and chronic respiratory failure with hypoxia; J96.22 - Acute and chronic respiratory failure with hypercapnia Code(s): J96.91 - Respiratory failure, unspecified with hypoxia; J96.92 - Respiratory failure, unspecified with hypercapnia Status: Acute Assessment and Plan: patient with chronic hypoxemic respiratory failure requiring 4 L bleed in at night with her noninvasive ventilator. last home O2 assessment on 07/03/2023 required 4 L at rest and 5 L with activity. Recently the patient tells me she has when wearing 2 L nasal cannula 24-7 and this is increased to 3 L 24-7 over the last week. Regarding her chronic hypercarbic respiratory failure patient had ABG on 11/28/2022 at 7.42/56/47 on 2 L nasal cannula. Patient was set up with noninvasive ventilation with AVAPS AE mode through via [employer] with auto breath rate, tidal volume 525, minimum EPAP 5, maximum EPAP 10, minimum pressure support 10, maximum pressure support 20, AVAPS rate 5, inspiratory time 1.0. Patient tried multiple face mass but never could find a mask that she could tolerate and therefore has been non compliant. 01/29/2025: Overnight oximetry on noninvasive ventilator with 4 L bleed in. Recording duration 7 hours and 53 minutes. Basal saturation 97.5. Low saturation 94%. High saturation 99%. Time with saturation less than or equal to 88% was 0 minutes. Oxygen desaturation 0. 4 L provides adequate oxygenation. Will call the patient to determine if she was wearing her noninvasive ventilator or not. 07/30/2025 patient presents with COPD exacerbation and ABG on 2 L nasal cannula 7.36/77/ 30. This was a mixed sample with chronic compensated respiratory acidosis. Patient was started on BiPAP rate of 12, pressures 14/6 and 40% FiO2 with repeat blood gas 7.42/66/94. She said these pressures were uncomfortable and she could not tolerate the BiPAP. 07/31/2025: I changed her to noninvasive ventilation With the AVAPS mode And adjusting the settings to comfort resulting in rate of 14, tidal volume 500, EPAP 7, minimal inspiratory pressure 8, maximal inspiratory pressure 25, inspiratory time 1.0, rise of 5 which is are slowest and 32% FiO2. plan: The patient can wear AVAPS p.r.n. during the day. She should wear AVAPS mode with the settings above tonight. I will chain an overnight oximetry and an ABG prior to removal on these settings. ABG on noninvasive ventilator will be assessed and changes will be made the night of 08/01/2025. 08/01/25: Patient wore the hospital noninvasive ventilator with the AVAPS mode and said that it hurt her nose. The air delivery was acceptable but she has a previous history of a broken nose and cannot sleep with the mask on and has failed multiple masks as an outpatient. Patient had an ABG prior to removal with pH of 7.41/60/83. Patient had an overnight oximetry on these settings and 32% FiO2 with a recording duration of 8 hours, average saturation 95%. Low saturation 88%. Time with saturation less than or equal to 88% was 0 minutes. Oxygen desaturation index 2.2. Obtained download from [facility] from October 29, 2024 to January 19, 2025.. Patient is on a Vivo 45. Patient is on a AVAPS AE mode with a set rate of 12, target volume 400 mL. EPAP minimum 5. EPAP maximum 10. minimum pressure support 10. Maximum pressure support 15. , rise time of 3. Backup inspiratory time 1.5 seconds. There has been no usage during this time interval. I interpret this download as total noncompliance. Plan: The above AVAPS settings provide adequate oxygenation and ventilation although the patient has a difficult time sleeping with this. I told her she can wear it during the day when she is awake. Tonight if she cannot sleep after 1-2 hours of the AVAPS she should discontinue this so she can get a good night's sleep. (3) Lung cancer: Code(s): C34.90 - Malignant neoplasm of unspecified part of unspecified bronchus or lung Status: Acute Assessment and Plan: patient with a history of tobacco use, 35 pack years, quit 2003. patient with a history of small cell lung cancer in 02/2013 status post chemotherapy and radiation therapy. Is felt that she was cured. Given her continued symptoms and hypoxemic respiratory failure I will obtain a CT scan of the chest. 08/13/2022: Chest CT demonstrated severe apical predominant panlobular emphysema, bilateral lower lobe atelectasis.? No evidence of lung cancer. 01/16/23: Patient has quit for smoking for greater than 15 years and does not qualify for low-dose CT scan. 06/30/23: CT angiogram of the chest shows no pulmonary embolism severe emphysema no concerning nodules or masses. 12/02/23: Quit tobacco in 2003 and does not qualify for low-dose CT scan. 05/18/2024: Patient quit tobacco in 2003 and does not qualify for low-dose CT scan screening. 11/15/2024: Patient quit tobacco in 2003 and does not qualify for low-dose CT scan. 07/31/2025: Will obtain CT scan of the chest. Later in the day patient had a CT scan of the chest which demonstrated a new right middle lobe infiltrate and severe apical predominant centrilobular emphysema. No concerning nodules or masses. Subjective Date/time seen: 08/01/25 11:29 Interval history: 07/31/2025: This is a new pulmonary consult for COPD exacerbation and acute on chronic hypercarbic and hypoxemic respiratory failure. Patient with a history of gold grade 4 group E COPD with chronic hypercarbic and hypoxemic respiratory failure prescribed a nonnvasive ventilator with the AVAPS mode but is intolerant, 2 L nasal cannula 24-7, diastolic heart failure, small cell lung cancer 02/2013 status post chemotherapy and radiation and felt to be cured. Patient is followed in the [facility]monary [facility] in last seen on 06/02/2025. At that time she was stable on Advair 230-21 at 2 puffs b.i.d., Incruse 1 puff q.day, albuterol p.r.n., 2 L 24-7. She was prescribed noninvasive ventilation but not wearing it because she has failed multiple masks. She was in wheelchair from a previous stroke but had been working with PT at assisted living with walking in the halls with a walker. Medications were continued, recommended regular exercise is stain up-to-date on vaccines. 07/02/2025: The patient was seen in the emergency department for leg trauma after hitting this on her wheelchair with painful swelling. She was diagnosed with a hematoma. Again seen in the ER 07/18/2025 for the same issue and had an I and D with 5 mL expressed. Placed on Keflex. Again seen on 07/21/2025 With leg pain as her PCP but multiple stitches in her leg and a compression bandage. The compression bandage was removed and pain went away. On 07/24/2025 the heater was turned on in her facility and this caused her to have shortness of breath, wheezing and a dry cough. She then developed decreased appetite and pain throughout her body. She had chills but no fever. 07/30/25: Symptoms progressed and she presented to the emergency room on 07/31/25. Her blood pressure is 116/98, heart rate 88, respirations 24 with saturations on 3 L nasal cannula 100%. She was afebrile. She had a faint wheeze with decreased breath sounds. White blood cell count was 15.5, creatinine was 1.12, COVID influenza RSV RT PCR assay negative, MRSA swab negative. ABG on 2 L nasal cannula 7.36/77/30. He has and fills were 1.9% equals 295 per micro L. patient was placed on BiPAP rate of 12, pressures 14/6 and 40% with a repeat blood gas of 7.42/66/94. Patient was treated with Solu- Medrol, ceftriaxone, doxycycline that was changed to azithromycin. Patient also started on Claritin 10 and guaifenesin 600 p.o. b.i.d.. 07/31/2025: Patient wore the noninvasive ventilator with a BiPAP mode overnight. When I enter the room she was on the BiPAP. She told me she was much better. She told me she is breathing back to her normal. She denied fever cough, phlegm or hemoptysis. She is afebrile. White blood cell count 12.5, creatinine 1.11, BNP 1520, procalcitonin 0.1, CRP 2.2, D-dimer 1.27. Patient told me the BiPAP was uncomfortable and I placed her on noninvasive ventilation with the AVAPS mode and adjusted the settings to come for resulting in a rate of 14, tidal volume 500, EPAP 7, minimal inspiratory pressure 8, maximal inspiratory pressure 25, inspiratory time 1.2, rise of 5 which is a slowest and 32% FiO2. She was requesting to come off of the noninvasive ventilator and I placed her on 2 L nasal cannula and she had no respiratory distress with saturations 96%. Later in the day patient had a CT scan of the chest which demonstrated a new right middle lobe infiltrate and severe apical predominant centrilobular emphysema. Echocardiogram with an LVEF of 40-45%, grade 1 diastolic dysfunction, normal RV size and function. Normal right atrial size. PASP 19. Obtained download from [facility] [facility] from October 29, 2024 to January 19, 2025.. Patient is on a Vivo 45. Patient is on a AVAPS AE mode with a set rate of 12, target volume 400 mL. EPAP minimum 5. EPAP maximum 10. minimum pressure support 10. Maximum pressure support 15. , rise time of 3. Backup inspiratory time 1.5 seconds. There has been no usage during this time interval. I interpret this download as total noncompliance. 08/01/2025: Patient tells me she has rest shortness of breath and the same dyspnea on exertion is yesterday. She has coughing but the phlegm is stuck in her throat. Her nasal congestion is the same. Overall she feels slightly worse than yesterday. When I enter the room she was on 2 L nasal cannula saturation 90%. She is afebrile. White blood cell count 12.5, creatinine 1.19, yesterday she was positive 455 mL and is cumulative positive 495 mL since admission. W eight today is 66.4. Patient wore the hospital noninvasive ventilator with the AVAPS mode and said that it hurt her nose. The air delivery was acceptable but she has a previous history of a broken nose and cannot sleep with the mask on and has failed multiple masks as an outpatient. Patient had an ABG prior to removal with pH of 7.41/60/83. Patient had an overnight oximetry on these settings and 32% FiO2 with a recording duration of 8 hours, average saturation 95%. Low saturation 88%. Time with saturation less than or equal to 88% was 0 minutes. Oxygen desaturation index 2.2. DATA: 07/31/25: Echo Summary 1. Technically suboptimal study due to poor sonographic images. 2. Definity contrast administered improved wall motion interpretation. 3. Left ventricular chamber dimension is moderately enlarged. 4. Left ventricular systolic function is moderately globally reduced, estimated at 40-45. 5. The left ventricular diastolic function is grade I diastolic dysfunction. 6. No pulmonary hypertension, estimated pulmonary arterial systolic pressure is 19 mmHg. Right Ventricle Right ventricular chamber dimension is normal. Right ventricular systolic function is normal. Left Atria Left atrial chamber dimension is normal. Right Atria Right atrial chamber dimension is normal. 07/31/25: EXAMINATION:CT diagnostic chest wo con INDICATION: Pneumonia COPD COMPARISON: None. FINDINGS: Patchy consolidative changes are developing in the medial segment of the right middle lobe. Mild scattered fibrotic and atelectatic appearing changes throughout the lower lobes bilaterally. Moderately severe centrilobular emphysematous changes especially in the upper lobes. No new nodules or masses seen. Heart and great vessels stable in size with no cardiomegaly or large pericardial effusion/bulky lymphadenopathy. Coronary artery calcification and/or stenting. 50% compression deformity of T6 similar to the previous exam. IMPRESSION: Small area of consolidation in the medial segment of the right middle lobe consistent with early pneumonia. Finding should be followed radiographically until clear. 01/29/25 - Overnight oximetry on noninvasive ventilator with 4 L bleed in. Recording duration 7 hours and 53 minutes. Basal saturation 97.5. Low saturation 94%. High saturation 99%. Time with saturation less than or equal to 88% was 0 minutes. Oxygen desaturation 0. 4 L provides adequate oxygenation. 11/06/23 - CXR - The lungs are clear, without evidence of focal consolidation or pleural effusion. Suspected COPD. Cardiomediastinal silhouette is within normal limits. Bones and soft tissues are unremarkable. 07/03/2023: Home O2 assessment: Rest room air saturations 83%. Rest nasal cannula 2 L saturation 87%. Rest nasal cannula 3 L saturation 88%. Rest nasal cannula 4 L saturation 91%. Exercise nasal cannula 4 L, saturations 88%. Exercise nasal cannula 5 L saturation 90%. Patient requires 4 L at rest and 5 with activity. 07/02/24: Patient wore her home noninvasive ventilator in the hospital, with an AVAPS-AE mode with a rate of 12, tidal volume 400, EPAP minimum 5, maximum EPAP 10, minimal pressure support 10, maximal pressure support 15, rise time of 3 with 4 L bleed in and did well.? Patient had an overnight oximetry with recording time of 7 hours and 31 minutes, average saturation 92%.? Low saturation 88%.? Time with saturation less than or equal to 88% was 1 minute, oxygen desaturation index 0.4.? Patient had a blood gas prior to removal of this machine with pH of 7.44/48/70.? These settings provide adequate oxygenation and ventilation.? 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 06/30/2023: EXAMINATION: CTA chest PE protocol ?INDICATION: Hypoxia. ?COMPARISON: Chest CT 08/12/2022 ?FINDINGS: There is severe emphysema. There is mild atelectasis bilaterally, worst in the lower lobes. No pleural effusion. The heart size is normal. There are coronary artery calcifications. No pericardial effusion. There is no pulmonary embolus. There is a gallstone in the gallbladder which is normal in size. There is a ventral hernia containing colon. There is kyphosis and moderate spondylosis of thoracic spine. There is a chronic burst fracture of T6. There is a chronic compression fracture of L1. ?IMPRESSION: ?1. No pulmonary embolus. ?2. Severe emphysema. ?11/28/2022 PFTs ??The test was performed and results interpreted in accordance with the 2019 and 2005 ATS/ERS Task Force guidelines respectively using the Global Lung Function Initiative-2012 reference equations. Patient demonstrated good effort and cooperation. Reproducibility criteria were met. The quality of the pre br onchodilator spirometry maneuver was Grade A and post bronchodilator spirometry maneuver was Grade A. ??Findings: ??Spirometry: ? There is decreased maximal expiratory airflow at all lung volumes with concave expiratory flow tracing.? The contour the inspiratory flow tracing is normal.? pre bronchodilator FVC is 1.39 L, 48% predicted.? The pre bronchodilator FEV1 is 0.59 L, 26% predicted.? The pre bronchodilator FEV1:? FVC ratio is 42%.? The post bronchodilator FVC is 1.50 L,? representing an 8% increase.? The post bronchodilator FEV1 is 0.63 L, representing a 6% increase.? The post bronchodilator FEV1:? FVC ratio is 42%.? ??Plethysmography:? The total lung capacity is 4.40 L, 85% predicted.? The functional residual capacity is 3.27 L, 110% predicted.? The residual volume is 3.01 L, 133% predicted.? ??Diffusing capacity:? The diffusing capacity unadjusted for hemoglobin and carboxyhemoglobin is 5.2, 25% predicted.? The diffusing capacity adjusted for alveolar volume is 2.58, 61% predicted. ??When compared to PFTs from [facility] on 06/20/2019 the post bronchodilator FVC has decreased from 2.10 L to 1.50 L.? The post bronchodilator FEV1 has decreased from 0.80 L to 0.63 L.? The total lung capacity is unchanged from 4.88 L to 4.40 L.? The functional residual capacity is unchanged from 3.71 L to 3.27 L.? The residual volume is unchanged from 3.24 L to 3.01 L.? The diffusing capacity unadjusted from hemoglobin and carboxyhemoglobin is unchanged from 5.6 to 5.2.? The diffusing capacity adjusted for alveolar volume is unchanged from 2.39 to 2.58. ??Impression:?There is a very severe obstructive abnormality without significant improvement after inhaling a single dose of albuterol.?The increase in residual volume is consistent with?air trapping?from an obstructive abnormality.? The diffusing capacity unadjusted for hemoglobin and carboxyhemoglobin is severely decreased and?remains mildly decreased when adjusted for alveolar volume. ??When compared to previous PFTs there has been a?greater than anticipated time dependent decrease in the FVC and FEV1?with no significant change in the total lung capacity, functional residual capacity, residual volume or DLCO. ?11/28/2022? ABG on 2 L nasal cannula pulse delivery: ? PH 7.42 / 56/47. ? Saturations were 83%.? Checked manually saturations were 84%. ?11/28/2022 ? Home O2 assessment:? Rest room air saturation 84%.? Rest nasal cannula 1 L saturation 86%, rest nasal cannula 2 L saturation 92%.? Exercise 2 L nasal cannula saturation 90%. ? These measurements were made with continuous flow nasal cannula.? I spoke with the orthotic finish grinding technician and they attempted to place the patient on 4 L pulse delivery nasal cannula and her saturations remained less than 88%.??The patient requires 2 L oxygen at rest and with exercise at continuous flow. ??? Collectively these results demonstrate progression of the patient's very severe obstructive abnormality consistent with GOLD grade 4 COPD? with chronic hypercarbic respiratory failure from her COPD and hypoxemic respiratory failure from her COPD. ? Patient has chronic hypercarbic respiratory failure from her COPD and would benefit from noninvasive ventilation. ? She would benefit from noninvasive ventilation to prevent further deterioration and subsequent hospitalizations. ? Previously the patient had been on BiPAP on 05/05/2022 and she said that she could not tolerate these pressures and she had claustrophobia.?? I talked to the patient about this and she is also had a stroke with decreased mobility of her right upper extremity and is unsure if she will be able to? initiate her machine and mask at home although she is willing to try. ??? I will initiate home noninvasive ventilation with an AVAPS-AE mode? with a set rate of auto, tidal volume 500, minimal inspiratory pressure 5, maximal expiratory pressure 15, minimal inspiratory pressure 6, maximal inspiratory pressure 25,? rise time 1.0 sec, and 2 L bleed in. These settings can be adjusted for patient comfort on initial set up. ??? The pulmonary function test coordinator has reached out to [facility] to see if this can be coordinated through them and the outpatient clinic will coordinate our efforts with the PFT lab. ?? 08/12/2022 EXAMINATION: CT diagnostic chest wo con ???INDICATION: SOB for 2 days. COPD. History of lung cancer. ???COMPARISON: 07/17/2022 portable AP chest ???02/28/2019 CTA chest ???FINDINGS: Heart size is within normal range. No pericardial or pleural effus ion. ???There is extensive thoracic aortic and some great vessel calcifications in addition to prominent coronary artery calcifications. No thoracic aortic aneurysm. ???Normal size and attenuation of the thyroid gland. No hilar or mediastinal mass lesion or lymphadenopathy. ???Moderate to moderately severe emphysema and bilateral pulmonary hyperinflation. ???There is a chronic linear scarring in the right lower lobe and left lower lobe. There is another linear scar or discoid atelectasis in the right lower lobe since 02/28/2019. ???There is minimal atelectasis at the dependent lung bases, both lower lobes. ???Included portions of the adrenal glands are unremarkable. ???One or more ventral abdominal wall hernias. ???Multiple old healed right rib fractures. ???Moderate anterior wedge compression fracture deformity of T6. ???Degenerative disc disease of the lower cervical spine and degenerative spurring of the thoracic spine. ???No suspicious osteolytic or osteoblastic lesions are noted. ???IMPRESSION:? Moderate to moderately severe emphysema ???Mild discoid atelectasis and/or scarring in the lower lobes ???Minimal bilateral lower lobe dependent atelectasis ???Aortic, great vessel and coronary artery atherosclerosis ???06/05/2022 CXR EXAMINATION: XR chest 2V ?INDICATION: SOB,?COMPARISON: 05/19/2022, 05/07/2022 ?FINDINGS: There are small pleural effusions. There is no pneumothorax. There are minimal airspace opacities of the lung bases. The cardiomediastinal silhouette is normal. There is a chronic compression fracture of T6 without significant change. ?IMPRESSION: ?1. Small pleural effusions with minimal bibasilar airspace opacities, likely atelectasis. ???04/03/2022 ABG on 3 L 7.42/49/111 ???03/10/2022 ABG RA 7.42/50/44 ?06/20/2019:? I have PFT report from [facility]. ???Findings: ???Spirometry:? There is decreased maximal expiratory airflow at all lung volumes with concave expiratory flow tracing.? The contour of the inspiratory flow tracing is normal.? The pre bronchodilator FVC is 1.64 L, 64% predicted.? The pre bronchodilator FEV1 is 0.76 L, 37% predicted.? The pre bronchodilator FEV1:? FVC ratio is 47%.? The post bronchodilator FVC is 2.10 L, representing a 28% increase.? The post bronchodilator FEV1 is 0.80 L, representing a 5% increase.? The post bronchodilator FEV1:? FVC ratio is 38%. ???Plethysmography:? The total lung capacity is 4.88 L, 110% predicted.? The functional residual capacity is 3.71 L, 159% predicted.? The residual volume is 3.24 L, 185% predicted. ???Diffusing capacity:? The diffusing capacity unadjusted for hemoglobin and carboxyhemoglobin is 5.6, 28% predicted.? The diffusing capacity adjusted for alveolar volume is 2.39, 66% predicted. ?My?Impression: There is a severe obstructive abnormality with significant improvement after inhaling a single dose of albuterol. The increase in residual volume is consistent with air trapping from an obstructive abnormality.? Hyperinflation is present as demonstrated by the increase in functional residual capacity and is consistent with an obstructive abnormality. The diffusing capacity unadjusted for hemoglobin and carboxyhemoglobin is severely decreased and is mildly decreased when adjusted for alveolar volume. ???When compared to the spirometry on 03/03/2019 the pre bronchodilator FVC has increased from 1.05 L to 1.64 L. The pre bronchodilator FEV1 has increased from 0.47 L to 0.76 L. ?03/03/2019 I have an echocardiogram report from [facility]: ???Summary:? The calculated ejection fraction is 52.? Left ventricular diastolic function is abnormal, grade 1 impaired relaxation.? Right ventricular systolic function is normal.? No evidence of pericardial effusion.? A trace of tricuspid regurgitation normal RV size and function normal right atrial size. ???01/09/2019 echocardiogram report from [facility].? Summary:? The left ventricle size is normal.? The left ventricular systolic function is lower limits of normal with an estimated LV EF of 50-55%.? Left ventricular diastolic function is abnormal grade 1, impaired relaxation, right ventricular systolic pressure is 37, mild aortic valve sclerosis ?03/03/2019:? I have a spirometry report from [facility]. ??Spirometry:? There is decreased maximal expiratory airflow at all lung volumes with concave expiratory flow tracing.? The contour the inspiratory flow tracing is normal.? The FVC is 1.05 L, 36% predicted.? The FEV1 is 0.47 L, 20% predicted.? The FEV1:? FVC ratio is 45%. ???My impression:? There is a very severe obstructive abnormality. ?? ?01/09/2019:? CT angiogram chest report from [facility].? Impression: no CT evidence of pulmonary embolism.? Mosaic perfusion in the upper and lower lobes may represent small airways disease or peripheral airways disease or sequela of radiation therapy if applicable.? The left hilar and suprahilar mass seen in 2012 is no longer present. ? 09/22/2018:? I have a report CT scan of the chest from [facility] demonstrating no pulmonary embolism, mild to moderate emphysema small amount of post infectious residual, no lymphadenopathy no pleural effusions, no pericardial effusion, no pneumothorax. ?? 01/09/2019: ? Report from [facility] ???EXAMINATION:CTA, CHEST FOR PE ???CLINICAL INDICATION: ???68-year-old inpatient with increasing SOB bilateral hand??and leg swelling over the past 6 weeks.? Given history of CHF, COPD,??coronary artery disease and lung carcinoma.??COMPARISON:??CTA chest abdomen pelvis with contrast 01/28/2013 and FDG PET/CT 02/02/2013 ?FINDINGS: ?The study was technically adequate??No intraluminal filling defects, wall thickening, or thrombus is present in??the pulmonary arterial vascular tree to suggest pulmonary embolus ?Although there is no given history of whether this patient had radiation or??chemotherapy the large left hilar and suprahilar mass seen in 2012 is no??longer present.? Mild thickening within the left hilar region of the??previously seen mass.? No recurrent hilar mass or mediastinal or hil ar??lymphadenopathy.? Subtle mosaic perfusion of the upper lobes and dependent??lower lobes may represent small airway disease or peripheral airway disease ???or could be sequela of radiation therapy.? Additionally, small bibasilar??effusions and bilateral enhancing lower lobe atelectasis probably??compressive atelectasis.? The mosaic perfusion in the lower lobes has??superimposed interlobar septal thickening and groundglass opacities which??is suggestive of development of pulmonary edema. ???Mild cardiomegaly due to biventricular prominence.? No pericardial??effusion.? There is moderate hepatic venous reflux suggestive of a elevated??right heart pressures..? Normal caliber thoracic aorta.? No evidence of??aortic dissection. ???Included portions of the liver is homogeneous in density.? No definite??enhancing hepatic mass in the upper liver.? The spleen and adrenal glands??and tail of pancreas are unremarkable.? Stable wide neck supra umbilical?epigastric region ventral wall hernia containing nonentrapped nonobstructed?appearing loops of transverse colon unchanged since 2013.? This is only?partially included on this study. ???Bone window imaging fails to demonstrate pathologic bony abnormality.???Interval wedge compression deformity of T6. ?IMPRESSION: ???1. No CT evidence of pulmonary embolus ???2.? Mosaic perfusion in the upper and lower lobes may represent small ???airway disease or peripheral airway disease or sequela of radiation therapy?if applicable. ???3.? Concomitant findings of definite pulmonary edema bibasilar effusions??lower lobe atelectasis may represent CHF; there is always a possibility??this could represent malignant pleural effusions ???4.? Although there is no given history of bladder on this patient has?undergone radiation therapy or chemotherapy the left hilar and suprahilar?mass seen in 2013 is no longer present. ???5.? Wedge compression deformity T6 Since 2013 Review of Systems Constitutional: Constitutional: Reports no additional constitutional complaints Eyes: Eyes: Reports no additional eye complaints ENT: Reports system reviewed and no additional complaints, except as documented Cardiovascular: Cardiovascular: Reports no additional cardiovascular complaints Respiratory: Respiratory: Reports no additional respiratory complaints Gastrointestinal: Gastrointestinal: Reports no additional gastrointestinal complaints Musculoskeletal: Musculoskeletal: Reports no additional musculoskeletal complaints Neurologic: Reports system reviewed and no additional complaints, except as documented Psychiatric: Psychiatric: Reports no additional psychiatric complaints Endocrine: Endocrine: Reports no additional endocrine complaints Hematologic/Lymphatic: Hematologic/Lymphatic: Reports no additional hematologic/lymphatic complaints Allergic/Immunologic: Allergic/Immunologic: Reports no additional allergic/immunologic complaints Exam Const: General: cooperative, comfortable and no acute distress Orientation/consciousness: oriented to person, oriented to place and oriented to time HENMT: Head: normal to inspection Ears: hearing grossly normal bilaterally Eyes: General: appearance normal, both eyes and all related structures Neck: Neck: normal visual inspection Chest: Chest palpation & inspection: normal inspection of the chest Resp: Effort & Inspection: normal respiratory effort and able to speak in complete sentences Auscultation: no crackles, no rales, no rhonchi, no wheezes and diminished lung sounds Cardio: Jugular venous distension: no JVD GI: Inspection: normal to inspection Skin: General skin exam: normal color Neuro: General: oriented to person, oriented to place and oriented to time Extrem: General: normal to inspection and edema Other: Positive bilateral lower extremity edema. Psych: Appearance: grossly normal Objective Data Vital Signs Vital Signs: Vital Signs - 24 hr 07/31/25 12:00 07/31/25 12:00 07/31/25 12:00 Temperature 36.7 C Pulse Rate 80 84 Respiratory Rate 20 Blood Pressure 126/95 H Pulse Oximetry 93 96 Oxygen Delivery Nasal Cannula Oxygen Flow Rate 2 Fraction of Inspired Oxygen 07/31/25 13:24 07/31/25 13:30 07/31/25 14:00 Temperature Pulse Rate 85 90 90 Respiratory Rate 18 18 Blood Pressure Pulse Oximetry Oxygen Delivery Oxygen Flow Rate Fraction of Inspired Oxygen 07/31/25 14:03 07/31/25 14:31 07/31/25 16:00 Temperature Pulse Rate 78 Respiratory Rate Blood Pressure Pulse Oximetry Oxygen Delivery Nasal Cannula Nasal Cannula Oxygen Flow Rate 2 2 Fraction of Inspired Oxygen 07/31/25 16:00 07/31/25 16:00 07/31/25 18:00 Temperature 36.8 C Pulse Rate 81 73 Respiratory Rate 22 H Blood Pressure 119/56 L Pulse Oximetry 96 97 Oxygen Delivery Nasal Cannula Oxygen Flow Rate 2 Fraction of Inspired Oxygen 07/31/25 19:58 07/31/25 20:00 07/31/25 20:00 Temperature 36.4 C L Pulse Rate 82 80 74 Respiratory Rate 20 21 H Blood Pressure 127/61 Pulse Oximetry 96 Oxygen Delivery Oxygen Flow Rate Fraction of Inspired Oxygen 07/31/25 20:04 07/31/25 20:04 07/31/25 21:50 Temperature Pulse Rate 70 78 Respiratory Rate 18 22 H Blood Pressure Pulse Oximetry 95 93 Oxygen Delivery Nasal Cannula BiPAP Oxygen Flow Rate 2 Fraction of Inspired Oxygen 07/31/25 21:59 07/31/25 22:00 08/01/25 00:00 Temperature 36.4 C L Pulse Rate 70 61 Respiratory Rate 15 Blood Pressure 120/61 Pulse Oximetry 93 98 Oxygen Delivery BiPAP Oxygen Flow Rate Fraction of Inspired Oxygen 32 08/01/25 00:00 08/01/25 02:00 08/01/25 02:10 Temperature Pulse Rate 61 61 57 L Respiratory Rate 19 Blood Pressure Pulse Oximetry 100 Oxygen Delivery BiPAP Oxygen Flow Rate Fraction of Inspired Oxygen 08/01/25 04:00 08/01/25 04:00 08/01/25 06:00 Temperature 36.7 C Pulse Rate 61 57 L 66 Respiratory Rate 15 Blood Pressure 125/65 Pulse Oximetry 97 Oxygen Delivery Oxygen Flow Rate Fraction of Inspired Oxygen 08/01/25 07:31 08/01/25 07:59 08/01/25 08:00 Temperature 36.7 C Pulse Rate 69 91 86 Respiratory Rate 18 Blood Pressure 142/72 H Pulse Oximetry 100 95 Oxygen Delivery Oxygen Flow Rate Fraction of Inspired Oxygen 08/01/25 08:00 08/01/25 08:25 08/01/25 08:25 Temperature Pulse Rate 101 H Respiratory Rate 24 H Blood Pressure Pulse Oximetry 98 91 91 Oxygen Delivery Nasal Cannula Nasal Cannula Nasal Cannula Oxygen Flow Rate 2 2 Fraction of Inspired Oxygen 08/01/25 08:25 08/01/25 08:35 08/01/25 10:00 Temperature Pulse Rate 101 H 97 87 Respiratory Rate 24 H 24 H Blood Pressure Pulse Oximetry Oxygen Delivery Oxygen Flow Rate Fraction of Inspired Oxygen Intake/Output Intake/Output: Intake & Output 07/29/25 07/30/25 07/31/25 08/01/25 23:59 23:59 23:59 23:59 Intake Total 300 1105 110 Output Total 650 720 Balance 300 455 -610 Meds/Results Medications: Active Medications Generic Name Dose Route Start Last Admin Trade Name Freq PRN Reason Stop Dose Admin Acetaminophen 650 mg 07/30/25 18:01 07/31/25 03:49 Acetaminophen 325 Mg Tablet PO 650 mg Q6H PRN Administration Mild Pain (1-3) or Fever Albuterol/Ipratropium 3 ml 07/31/25 14:00 08/01/25 08:25 Ipratropium 0.5 Mg/Albuterol Sulfate 2.5 Mg (Base) Ampul.Neb 3 Ml INHALATION 3 ml Q6HRT JESSIE Administration Alprazolam 0.5 mg 07/30/25 23:58 07/31/25 03:49 Alprazolam (*Crx) 0.5 Mg Tablet PO 0.5 mg Q8H PRN Administration Anxiety Aspirin 81 mg 07/31/25 09:00 08/01/25 08:23 Aspirin 81 Mg Enteric Tablet PO 81 mg DAILY JESSIE Administration Atorvastatin Calcium 40 mg 07/30/25 21:00 07/31/25 20:20 Atorvastatin 40 Mg Tablet PO 40 mg HS JESSIE Administration Enoxaparin Sodium 40 mg 07/30/25 21:00 07/31/25 20:20 Enoxaparin 40 Mg/0.4 Ml Syringe SUB-Q 40 mg HS JESSIE Administration Escitalopram Oxalate 10 mg 07/31/25 09:00 08/01/25 08:23 Escitalopram Oxalate 10 Mg Tablet PO 10 mg DAILY JESSIE Administration Furosemide 40 mg 07/31/25 09:00 07/31/25 08:45 Furosemide 40 Mg Tablet PO 40 mg On Hold: 07/31/25 11:06 BID JESSIE Administration Gabapentin 300 mg 07/31/25 09:00 08/01/25 08:23 Gabapentin 300 Mg Capsule PO 300 mg TID JESSIE Administration Guaifenesin 600 mg 07/31/25 09:00 08/01/25 08:23 Guaifenesin 12 Hr 600 Mg Tabcr PO 600 mg Q12HR JESSIE Administration Ceftriaxone Sodium 1 gm/ 50 mls @ 100 mls/hr 07/31/25 16:00 07/31/25 15:51 Sodium Chloride IVPB 100 mls/hr Q24H JESSIE Administration Azithromycin 500 mg/ Sodium 250 mls @ 250 mls/hr 07/30/25 19:00 07/31/25 18:00 Chloride IVPB 08/03/25 19:59 250 mls/hr Q24H JESSIE Administration Levetiracetam 250 mg 07/30/25 21:00 08/01/25 08:24 Levetiracetam 250 Mg Tablet PO 250 mg Q12HR JESSIE Administration Loratadine 10 mg 07/30/25 21:00 07/31/25 20:20 Loratadine 10 Mg Tablet PO 10 mg HS JESSIE Administration Melatonin 5 mg 07/30/25 18:38 07/30/25 20:49 Melatonin 5 Mg Tablet PO 5 mg HS PRN Administration Insomnia Pantoprazole Sodium 40 mg 07/31/25 09:00 08/01/25 08:24 Pantoprazole 40 Mg Tablet PO 40 mg QAM JESSIE Administration Potassium Chloride 20 meq 07/31/25 09:00 08/01/25 08:23 Potassium Chloride 20 Meq Er Tablet PO 20 meq BID JESSIE Administration Prednisone 40 mg 07/31/25 11:50 08/01/25 08:23 Prednisone 20 Mg Tablet PO 40 mg DAILY@0800 JESSIE Administration Ropinirole HCl 1 mg 07/31/25 09:00 08/01/25 08:23 Ropinirole Hcl 1 Mg Tablet PO 1 mg TID JESSIE Administration Spironolactone 25 mg 07/31/25 09:00 08/01/25 08:24 Spironolactone 25 Mg Tablet PO 25 mg DAILY JESSIE Administration Radiology Results: ITS Impressions Chest X-Ray 07/30/25 15:01 Impression: Early bilateral pneumonia Chest CT 07/31/25 14:05 IMPRESSION: Small area of consolidation in the medial segment of the right middle lobe consistent with early pneumonia. Finding should be followed radiographically until clear. Venous Doppler Study 08/01/25 08:07 Impression: Negative for DVT. Labs Labs: Laboratory Results - last 24 hr 08/01/25 08/01/25 04:38 09:00 WBC 14.0 H RBC 3.87 L Hgb 11.3 L Hct 37.1 MCV 95.9 MCH 29.2 MCHC 30.5 L RDW 14.7 H Plt Count 287 MPV 9.7 Puncture Site Right radial ABG pH 7.414 ABG pCO2 60.4 H* ABG pO2 83.0 ABG PO2/FiO2 Ratio 2.59 ABG HCO3 37.8 H ABG O2 Saturation 96.0 ABG O2 Content 16.0 ABG Base Excess 11.1 A-a Gradient 74.5 Oxyhemoglobin 95.9 Total Hemoglobin 11.8 L O2 Delivery Device Bipap O2 Liters/Min Not Reportable FiO2 32 Expiratory Pressure 8 Inspiratory Pressure 25 Sodium 140 Potassium 3.9 Chloride 99 Carbon Dioxide 36 H Anion Gap 5 BUN 37 H D Creatinine 1.19 H Estim Creat Clear Calc 33 Estimated GFR 44 L Glucose 101 Calcium 9.0 Total Bilirubin 0.5 AST 38 H ALT 32 Alkaline Phosphatase 60 Total Protein 7.1 Albumin 3.9
--- NOTE | 2025-08-01 12:16 | PM.CNCAR ---
Assessment and Plan Assessment and plan (1) Bilateral pneumonia: Qualifiers: Lung location: lower lobe of lung Pneumonia type: due to unspecified organism Qualified Code(s): J18.9 - Pneumonia, unspecified organism Code(s): J18.9 - Pneumonia, unspecified organism Status: Acute Assessment and Plan: On antibiotics. (2) COPD exacerbation: Code(s): J44.1 - Chronic obstructive pulmonary disease with (acute) exacerbation Status: Acute (3) Combined systolic and diastolic cardiac dysfunction: Code(s): I51.89 - Other ill-defined heart diseases Status: Acute Assessment and Plan: Mild. Appears euvolemic except mild edema of legs. On Lasix 40 mg PO BID and Spironolactone 25 mg daily. No further cardiac workup is needed. Will sign off, please call with any questions. (4) Dyslipidemia: Code(s): E78.5 - Hyperlipidemia, unspecified Status: Acute Assessment and Plan: On Atorvastatin. History of Present Illness History of Present Illness Consult date/time: 08/01/25 12:16 Reason For Visit: acute hypercarbic failure,copd exacerabtion,cap Narrative: 75 yr old woman who is my regular cardiology patient presents to ER with sob. She has a history of stroke with residual right sided weakness in 2015, systolic and diastolic dysfunction, COPD, dyslipidemia, pulmonary embolism. States she was sob for last few days and came to ER which showed RML pneumonia. She had injuries to both legs from trauma from her wheelchair that had to be cushioned. She got left leg lanced to remove some hematoma. She has mod left and mild right leg edema. She has been wheelchair bound since her stroke and can walk with assistance very short distance due to weakness. Denies chest pain, orthopnea, palpitations, dizziness. Cardiovascular Procedures Echo/MUGA:: 07/31/25 Echo: EF 40-45%, mod LVE, grade I diastolic dsyfunction. 06/06/22 Echo: EF 55-60%, mild LVH, grade I diastolic dysfunction (E/e' 13), mod MAC. 01/24/22 Echo: EF 55-60%, grade I diastolic dysfunction (E/e' 9). 03/03/19 Echo: EF 52%, grade I diastolic dysfunction, trace TR. Electrophysiology:: 07/22/23 EKG: Sinus rhythm with sinus arrhythmia. 05/01/22 EKG: Sinus rhythm. 11/22/21 EKG: Sinus rhythm, borderline T wave in inferior leads. Stress Tests:: 06/28/25 Venous duplex; No DVT of left leg. 06/20/23 CTA chest: No pulm embolism. Severe emphysema. 07/22/23 Venous duplex: No DVT of both legs. 11/22/21 V/Q scan: High probability for pulm embolism, majority in RUL. Review of Systems Review of Systems: All systems reviewed & are unremarkable except as noted in HPI and below Constitutional: Constitutional: Reports as per HPI, Denies chills, Reports fatigue and Denies fever(s) Cardiovascular: Cardiovascular: Reports as per HPI and Denies chest pain Respiratory: Respiratory: Reports as per HPI, Reports cough, Reports excessive phlegm production and Reports dyspnea Gastrointestinal: Gastrointestinal: Reports as per HPI and Denies abdominal pain Genitourinary: Genitourinary: Reports as per HPI and Denies dysuria Musculoskeletal: Musculoskeletal: Reports as per HPI Neurologic: Reports as per HPI, Denies dizziness and Denies syncope [facility] Past Medical History Medical History Chronic respiratory failure with hypoxia, on home oxygen therapy 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 Chronic obstructive pulmonary disease Chronic kidney disease, stage 3 Pulmonary embolism (11/2021) Small cell lung cancer Status post chemoradiotherapy. Dyslipidemia Diastolic dysfunction Surgical History Surgical History History of incisional hernia repair History of inguinal hernia repair History of heart artery stent History of cardiac catheterization History of left nephrectomy At age 3, done for unclear reasons. History of abdominal aortic aneurysm repair Family History Family History Sibling Family history of arthritis Lung transplant status, bilateral COPD (chronic obstructive pulmonary disease) Colon cancer Father Melanoma Mother No problems noted. Social History Social History Social History: [id number]: Isabela Ponce, friend. Code status: Full code. Smoking packs per day: 1 Smoking cigarettes per day: 20.0 Years smoked: 40 Smoking pack-years: 40.00 Smoking status: Former smoker Tobacco type: cigarettes Second hand tobacco smoke exposure: No Smoking end date: 09/14/05 Alcohol intake: never Alcohol use details: No alcohol since 2005. Substance use: former Substance use type: does not use Other substance usage details: one pack per day for 40 years Lack of Transportation: No Lack of Food: Never True Current Housing: I Have Housing Concerned About Future Housing: No Difficulty Paying Gas/Electric Bills: No Difficulty Paying for Meds: No Currently Unemployed: No Education: High School Diploma/GED Difficulty w/ Childcare or Family Care: No Additional living arrangements comments: Lives in assisted living. Wheelchair-bound due to right-sided deficits from prior CVA. Spiritual care concerns: No Meds Home Medications and Allergies Home Medications ?Medication ?Instructions ?Recorded ?Confirmed ?Type acetaminophen 500 mg capsule 500 mg PO Q6H PRN Pain (Scale 11/24/19 07/30/25 History Score 1-3) aspirin 81 mg tablet,delayed 81 mg PO DAILY 11/24/19 07/30/25 History release (Adult Aspirin Regimen) atorvastatin 40 mg tablet 40 mg PO HS 11/24/19 07/30/25 History levetiracetam 250 mg tablet 250 mg PO Q12H 11/24/19 07/30/25 History (Keppra) melatonin 5 mg capsule 5 mg PO HS 11/24/19 07/30/25 History potassium chloride 20 mEq 20 meq PO BID 11/24/19 07/30/25 History tablet,extended release multivitamin with folic acid 400 1 tablet PO DAILY 03/10/22 07/30/25 History mcg tablet (Daily-Annie (with folic acid)) pantoprazole 40 mg tablet,delayed 40 mg PO QAM #30 tabs 05/06/22 07/30/25 Rx release comp.stocking,knee,long,medium #12 ea 06/02/22 07/30/25 Rx Held on 07/30/25. Instructions: Patient no longer taking furosemide 40 mg tablet (Lasix) 40 mg PO BID #60 tabs 06/02/22 07/30/25 Rx alprazolam 0.5 mg tablet 0.5 mg PO Q8-12H PRN Anxiety 06/29/23 07/30/25 History ferrous sulfate 325 mg (65 mg 325 mg PO TID 12/02/23 07/30/25 History iron) tablet Advair HFA 230 mcg-21 See Rx Instructions .Route 05/23/25 07/30/25 Rx mcg/actuation aerosol inhaler .COMPLEX #12 grams (fluticasone propion-salmeterol) albuterol sulfate 90 mcg/actuation 2 puff inhalation Q6H PRN 07/06/25 07/30/25 Rx aerosol inhaler shortness of breath or wheezing #8.5 grams escitalopram oxalate 10 mg tablet 10 mg PO DAILY 07/18/25 07/30/25 History levocetirizine 5 mg tablet 5 mg PO QPM 07/18/25 07/30/25 History ropinirole 2 mg tablet 1 mg PO TID 07/18/25 07/30/25 History ergocalciferol (vitamin D2) 1,250 1,250 mcg PO WEEKLY 07/30/25 07/30/25 History mcg (50,000 unit) capsule (Vitamin D2) gabapentin 300 mg capsule 300 mg PO TID 07/30/25 07/30/25 History spironolactone 25 mg tablet 25 mg PO DAILY 07/30/25 07/30/25 History (Aldactone) umeclidinium 62.5 mcg/actuation See Rx Instructions .Route 07/31/25 Rx blister powder for inhalation .COMPLEX #30 grams (Incruse Ellipta) Allergies Allergy/AdvReac Type Severity Reaction Status Date / Time Iodinated Contrast Media Allergy Unknown Rash Verified 07/30/25 17:36 latex Allergy Unknown Unknown Verified 07/30/25 17:36 adhesive tape AdvReac Rash Verified 07/30/25 17:36 nickel AdvReac Rash Verified 07/30/25 17:36 Vital Signs Vital Signs - 24 hr 07/31/25 13:24 07/31/25 13:30 07/31/25 14:00 Temperature Pulse Rate 85 90 90 Respiratory Rate 18 18 Blood Pressure Pulse Oximetry Oxygen Delivery Oxygen Flow Rate Fraction of Inspired Oxygen 07/31/25 14:03 07/31/25 14:31 07/31/25 16:00 Temperature Pulse Rate 78 Respiratory Rate Blood Pressure Pulse Oximetry Oxygen Delivery Nasal Cannula Nasal Cannula Oxygen Flow Rate 2 2 Fraction of Inspired Oxygen 07/31/25 16:00 07/31/25 16:00 07/31/25 18:00 Temperature 98.3 F Pulse Rate 81 73 Respiratory Rate 22 H Blood Pressure 119/56 L Pulse Oximetry 96 97 Oxygen Delivery Nasal Cannula Oxygen Flow Rate 2 Fraction of Inspired Oxygen 07/31/25 19:58 07/31/25 20:00 07/31/25 20:00 Temperature 97.5 F L Pulse Rate 82 80 74 Respiratory Rate 20 21 H Blood Pressure 127/61 Pulse Oximetry 96 Oxygen Delivery Oxygen Flow Rate Fraction of Inspired Oxygen 07/31/25 20:04 07/31/25 20:04 07/31/25 21:50 Temperature Pulse Rate 70 78 Respiratory Rate 18 22 H Blood Pressure Pulse Oximetry 95 93 Oxygen Delivery Nasal Cannula BiPAP Oxygen Flow Rate 2 Fraction of Inspired Oxygen 07/31/25 21:59 07/31/25 22:00 08/01/25 00:00 Temperature 97.5 F L Pulse Rate 70 61 Respiratory Rate 15 Blood Pressure 120/61 Pulse Oximetry 93 98 Oxygen Delivery BiPAP Oxygen Flow Rate Fraction of Inspired Oxygen 32 08/01/25 00:00 08/01/25 02:00 08/01/25 02:10 Temperature Pulse Rate 61 61 57 L Respiratory Rate 19 Blood Pressure Pulse Oximetry 100 Oxygen Delivery BiPAP Oxygen Flow Rate Fraction of Inspired Oxygen 08/01/25 04:00 08/01/25 04:00 08/01/25 06:00 Temperature 98.1 F Pulse Rate 61 57 L 66 Respiratory Rate 15 Blood Pressure 125/65 Pulse Oximetry 97 Oxygen Delivery Oxygen Flow Rate Fraction of Inspired Oxygen 08/01/25 07:31 08/01/25 07:59 08/01/25 08:00 Temperature 98.0 F Pulse Rate 69 91 86 Respiratory Rate 18 Blood Pressure 142/72 H Pulse Oximetry 100 95 Oxygen Delivery Oxygen Flow Rate Fraction of Inspired Oxygen 08/01/25 08:00 08/01/25 08:25 08/01/25 08:25 Temperature Pulse Rate 101 H Respiratory Rate 24 H Blood Pressure Pulse Oximetry 98 91 91 Oxygen Delivery Nasal Cannula Nasal Cannula Nasal Cannula Oxygen Flow Rate 2 2 Fraction of Inspired Oxygen 08/01/25 08:25 08/01/25 08:35 08/01/25 10:00 Temperature Pulse Rate 101 H 97 87 Respiratory Rate 24 H 24 H Blood Pressure Pulse Oximetry Oxygen Delivery Oxygen Flow Rate Fraction of Inspired Oxygen 08/01/25 11:29 08/01/25 12:00 08/01/25 12:00 Temperature 98.1 F Pulse Rate 86 97 Respiratory Rate 22 H Blood Pressure 120/63 Pulse Oximetry 96 99 Oxygen Delivery Nasal Cannula Oxygen Flow Rate 2 Fraction of Inspired Oxygen Exam Const: General: cooperative, healthy appearing and comfortable Resp: Auscultation: wheezes and diminished lung sounds Cardio: Rate: regular rate Rhythm: regular rhythm Heart sounds: no murmurs Peripheral pulses: dorsalis pedis present GI: GI Palp: No abdominal tenderness and Yes Soft to palpation Neuro: General: oriented to person, oriented to place and oriented to time Extrem: Right lower extremity: edema Left lower extremity: edema Other: Mild-mod edema of both legs Results Labs and Meds 08/01/25 09:00 08/01/25 09:00 Lab results: Cardiac Enzymes 08/01/25 Range/Units 09:00 AST 38 H (14-36) U/L CBC 08/01/25 Range/Units 09:00 WBC 14.0 H (4.5-10.0) K/mm3 RBC 3.87 L (4.2-5.4) M/mm3 Hgb 11.3 L (12.0-15.0) g/dL Hct 37.1 (37.0-47.0) % Plt Count 287 (150-375) k/mm3 Comprehensive Metabolic Panel 08/01/25 Range/Units 09:00 Sodium 140 (137-145) mmol/L Potassium 3.9 (3.4-5.0) mmol/L Chloride 99 (98-107) mmol/L Carbon Dioxide 36 H (22-30) mmol/L BUN 37 H D (7-17) mg/dL Creatinine 1.19 H (0.7-1.0) mg/dL Glucose 101 (65-110) mg/dL Calcium 9.0 (8.4-10.2) mg/dL AST 38 H (14-36) U/L ALT 32 (6-35) U/L Alkaline Phosphatase 60 (38-126) U/L Total Protein 7.1 (6.3-8.2) g/dL Albumin 3.9 (3.5-5.1) g/dL Intake and Output 07/31/25 08/01/25 08/01/25 23:59 07:59 15:59 Intake Total 840 60 290 Output Total 400 320 400 Balance 440 -260 -110 Intake: Oral 840 60 290 Output: Urine 400 320 Catheter Urine 400 Coude 400 Other: # Urine Diapers 1 Number of Bowel Movements Today 0 Patient Weight 08/01/25 23:59 Weight 66.4 kg
[2025-08-01] MEDS: cefTRIAXone 1 GM in SODIUM CHLORIDE 0.9% IV 50 ML 100 ML IVPB (15:03)
[2025-08-01] MEDS: AZITHROMYCIN IV 500 MG in SODIUM CHLORIDE 0.9% IV 250 ML IVPB (18:19)
[2025-08-01 20:16] LABS: Magnesium 2.3 mg/dL (1.6-2.3)
[2025-08-01] MEDS: ATORVASTATIN 40 MG TABLET PO (21:09)
[2025-08-01] MEDS: ENOXAPARIN 40 MG/0.4 ML SYRINGE SUB-Q (21:09)
[2025-08-01] MEDS: guaiFENesin 12 HR 600 MG TABCR 1200 MG PO (21:09)
[2025-08-01] MEDS: LORATADINE 10 MG TABLET PO (21:10)
[2025-08-02] VITALS (21 sets, daily range): BP systolic 116–130; BP diastolic 55–69; PULSE 59–101; RESP 16–24; TEMP 36.2–36.8; O2SAT 91–100
[2025-08-02] MEDS: ACETAMINOPHEN 325 MG TABLET 650 MG PO (00:09)
[2025-08-02] MEDS: IPRATROPIUM 0.5 MG/ALBUTEROL SULFATE 2.5 MG (BASE) AMPUL.NEB 3 ML INHALATION ×4 (01:11→19:23)
[2025-08-02] MEDS: ALPRAZolam (*CRX) 0.5 MG TABLET PO (02:15)
[2025-08-02 04:35] LABS: Hematocrit 33.7 % (37.0-47.0); Hemoglobin 10.2 g/dL (12.0-15.0); Mean Corpuscular HGB Conc 30.3 g/dl (32-36); Mean Corpuscular Hemoglobin 28.8 pg (26-34); Mean Corpuscular Volume 95.2 fl (80-100); Platelet Count Result 283 k/mm3 (150-375); Red Blood Count 3.54 M/mm3 (4.2-5.4); White Blood Count 11.2 K/mm3 (4.5-10.0)
[2025-08-02 04:50] LABS: Alanine Aminotransferase 30 U/L (6-35); Albumin Level 3.6 g/dL (3.5-5.1); Alkaline Phosphatase 60 U/L (38-126); Anion Gap 4 mmol/L (4-12); Aspartate Amino Transferase 36 U/L (14-36); Bilirubin,Total 0.4 mg/dL (0.2-1.3); Blood Urea Nitrogen 50 mg/dL (7-17); Calcium 8.5 mg/dL (8.4-10.2); Carbon Dioxide 33 mmol/L (22-30); Chloride 99 mmol/L (98-107); Estimated CRCL calculation 28 ml/min; Estimated Glomerular Filt Rate 36; Glucose 105 mg/dL (65-110); Potassium 3.8 mmol/L (3.4-5.0); Sodium 136 mmol/L (137-145); Total Protein 6.5 g/dL (6.3-8.2)
--- NOTE | 2025-08-02 07:28 | P.PNIM_ITS ---
Progress Note: A&P Assessment and Plan (1) Acute exacerbation of chronic obstructive pulmonary disease: Code(s): J44.1 - Chronic obstructive pulmonary disease with (acute) exacerbation Status: Acute Plan Acute COPD exacerbation Acute on chronic hypercapnic and hypoxic respiratory failure Right middle lobe pneumonia -patient has longstanding COPD follows Dr. Nava -she has gold grade 4, history of alpha-1 antitrypsin genotype mm -she has air trapping with COPD not a candidate for zephyr valve or surgery -Discussed with Dr. Nava, plan for AVAPS mode on noninvasive ventilator. -lower extremity ultrasound negative for DVT -pCO2 66.4, P is stable 7.42, likely could hypercarbia is chronic -PT OT consulted for weakness -steroids: Changes Solu-Medrol to prednisone 40 mg daily -nebs: duoneb QID -guaifenesin for cough -patient developing infiltrate in the right middle lobe seen on CT scan -continue ceftriaxone and azithromycin -at home on Advair CHF -BNP pending -cardiology consulted -IV Lasix 40 b.i.d. -monitor renal function during diuresis -echocardiogram shows 40-45% left ventricular diastolic dysfunction -EKG sinus rhythm -comorbid condition COPD -currently on spironolactone and Lasix -beta-cody can be added as outpatient after discussing with Cardiology -Daily weights. -fluid restriction -Strict I&O's -elevate/Samir wrap legs if needed -atorvastatin 40 mg p.o. q.h.s. -Optimize blood pressure less than 130/80. -Fall risk assessment. Chronic conditions -left lower extremity hematoma: Has been lanced and stitches placed on 07/18, we will remove sutures -heart failure: On Aldactone, Lasix with potassium supplement -RLS: requip -GERD: PPI -insomnia: melatonin -allergies: claritin -siezure disorder: keppra BID -peripheral neuropathy: Gabapentin -depression: Lexapro, p.r.n. Xanax -hyperlipidemia: Aspirin, statin -supplements: On ferrous sulfate, vitamin-D 2, multivitamin Diet: Heart healthy DVT prophylaxis: SCDs, Lovenox. Patient had recent hematoma on her leg which is resolved, will monitor closely for any signs of bleeding Code status: DNR Disposition: Home in 2-3 days Subjective Date/time seen: 08/02/25 07:28 Interval history: Patient was evaluated by the Cardiology. Advised to continue Lasix and spironolactone. Lasix currently on hold will restart. Creatinine rise from 1.19-1.44. Discussed with the Nephrology who agrees with the plan. The patient will use home CPAP today. Review of Systems Review of Systems: 10 point ROS complete, negative other th an what is specified in HPI. All systems reviewed & are unremarkable except as noted in HPI and below Exam Narrative: - GENERAL: Pleasant elderly woman in no acute distress. - EYES: EOMI. Anicteric. - HENT: Moist mucous membranes. - LUNGS: End-expiratory wheezing bilate rally throughout, no rhonchi - CARDIOVASCULAR: Regular rate and rhyth m. - ABDOMEN: Soft, non-tender and non-dist ended. - EXTREMITIES: 2+ lower extremity edema , peripheral pulses intact, wound on left lower extremity eschar with stitches in place - NEUROLOGIC: No focal neurological defi cits. - PSYCHIATRIC: Awake, Alert and oriented x 3. Appropriate mood and affect. - SKIN: No rashes or lesions. Objective Data Vital Signs Vital Signs: Vital Signs - 24 hr 08/01/25 07:31 08/01/25 07:59 08/01/25 08:00 Temperature 98.0 F Pulse Rate 69 91 86 Respiratory Rate 18 Blood Pressure 142/72 H Pulse Oximetry 100 95 Oxygen Delivery Oxygen Flow Rate 08/01/25 08:00 08/01/25 08:25 08/01/25 08:25 Temperature Pulse Rate 101 H Respiratory Rate 24 H Blood Pressure Pulse Oximetry 98 91 91 Oxygen Delivery Nasal Cannula Nasal Cannula Nasal Cannula Oxygen Flow Rate 2 2 08/01/25 08:25 08/01/25 08:35 08/01/25 10:00 Temperature Pulse Rate 101 H 97 87 Respiratory Rate 24 H 24 H Blood Pressure Pulse Oximetry Oxygen Delivery Oxygen Flow Rate 08/01/25 11:29 08/01/25 12:00 08/01/25 12:00 Temperature 98.1 F Pulse Rate 86 97 Respiratory Rate 22 H Blood Pressure 120/63 Pulse Oximetry 96 99 Oxygen Delivery Nasal Cannula Oxygen Flow Rate 2 08/01/25 14:00 08/01/25 14:22 08/01/25 14:22 Temperature Pulse Rate 82 89 89 Respiratory Rate 20 20 Blood Pressure Pulse Oximetry 94 Oxygen Delivery Nasal Cannula Oxygen Flow Rate 2 08/01/25 15:20 08/01/25 15:52 08/01/25 16:00 Temperature 98.1 F Pulse Rate 73 90 Respiratory Rate 18 29 H Blood Pressure 118/57 L Pulse Oximetry 95 98 Oxygen Delivery Nasal Cannula Oxygen Flow Rate 2 08/01/25 16:00 08/01/25 18:00 08/01/25 19:20 Temperature Pulse Rate 88 96 91 Respiratory Rate 20 Blood Pressure Pulse Oximetry Oxygen Delivery Oxygen Flow Rate 08/01/25 19:30 08/01/25 20:00 08/01/25 20:00 Temperature 98.1 F Pulse Rate 100 88 Respiratory Rate 20 24 H Blood Pressure 137/73 Pulse Oximetry 98 98 Oxygen Delivery Nasal Cannula Oxygen Flow Rate 2 08/01/25 20:00 08/01/25 22:00 08/01/25 23:40 Temperature 97.5 F L Pulse Rate 95 84 80 Respiratory Rate 23 H Blood Pressure 122/64 Pulse Oximetry 100 Oxygen Delivery Oxygen Flow Rate 08/02/25 00:00 08/02/25 00:00 08/02/25 01:11 Temperature Pulse Rate 79 79 Respiratory Rate 20 Blood Pressure Pulse Oximetry 97 Oxygen Delivery Nasal Cannula Oxygen Flow Rate 2 08/02/25 01:23 08/02/25 02:00 08/02/25 04:00 Temperature Pulse Rate 92 81 Respiratory Rate 20 Blood Pressure Pulse Oximetry 99 Oxygen Delivery Nasal Cannula Oxygen Flow Rate 2 08/02/25 04:00 08/02/25 04:00 08/02/25 06:00 Temperature 97.3 F L Pulse Rate 73 59 L 60 Respiratory Rate Blood Pressure 119/69 Pulse Oximetry 99 Oxygen Delivery Oxygen Flow Rate Intake/Output Intake/Output: Intake & Output 07/30/25 07/31/25 08/01/25 08/02/25 23:59 23:59 23:59 23:59 Intake Total 300 1405 822 450 Output Total 650 820 260 Balance 300 755 2 190 Meds/Results Medications: Active Medications Generic Name Dose Route Start Last Admin Trade Name Freq PRN Reason Stop Dose Admin Acetaminophen 650 mg 07/30/25 18:01 08/02/25 00:09 Acetaminophen 325 Mg Tablet PO 650 mg Q6H PRN Administration Mild Pain (1-3) or Fever Albuterol/Ipratropium 3 ml 07/31/25 14:00 08/02/25 01:11 Ipratropium 0.5 Mg/Albuterol Sulfate 2.5 Mg (Base) Ampul.Neb 3 Ml INHALATION 3 ml Q6HRT JESSIE Administration Alprazolam 0.5 mg 07/30/25 23:58 08/02/25 02:15 Alprazolam (*Crx) 0.5 Mg Tablet PO 0.5 mg Q8H PRN Administration Anxiety Aspirin 81 mg 07/31/25 09:00 08/01/25 08:23 Aspirin 81 Mg Enteric Tablet PO 81 mg DAILY JESSIE Administration Atorvastatin Calcium 40 mg 07/30/25 21:00 08/01/25 21:09 Atorvastatin 40 Mg Tablet PO 40 mg HS JESSIE Administration Enoxaparin Sodium 40 mg 07/30/25 21:00 08/01/25 21:09 Enoxaparin 40 Mg/0.4 Ml Syringe SUB-Q 40 mg HS JESSIE Administration Escitalopram Oxalate 10 mg 07/31/25 09:00 08/01/25 08:23 Escitalopram Oxalate 10 Mg Tablet PO 10 mg DAILY JESSIE Administration Furosemide 40 mg 07/31/25 09:00 07/31/25 08:45 Furosemide 40 Mg Tablet PO 40 mg On Hold: 07/31/25 11:06 BID JESSIE Administration Gabapentin 300 mg 07/31/25 09:00 08/01/25 16:58 Gabapentin 300 Mg Capsule PO 300 mg TID JESSIE Administration Guaifenesin 1,200 mg 08/01/25 21:00 08/01/25 21:09 Guaifenesin 12 Hr 600 Mg Tabcr PO 1,200 mg Q12HR JESSIE Administration Ceftriaxone Sodium 1 gm/ 50 mls @ 100 mls/hr 07/31/25 16:00 08/01/25 15:03 Sodium Chloride IVPB 100 mls/hr Q24H JESSIE Administration Azithromycin 500 mg/ Sodium 250 mls @ 250 mls/hr 07/30/25 19:00 08/01/25 18:19 Chloride IVPB 08/03/25 19:59 250 mls/hr Q24H JESSIE Administration Levetiracetam 250 mg 07/30/25 21:00 08/01/25 21:10 Levetiracetam 250 Mg Tablet PO 250 mg Q12HR JESSIE Administration Loratadine 10 mg 07/30/25 21:00 08/01/25 21:10 Loratadine 10 Mg Tablet PO 10 mg HS JESSIE Administration Melatonin 5 mg 07/30/25 18:38 07/30/25 20:49 Melatonin 5 Mg Tablet PO 5 mg HS PRN Administration Insomnia Pantoprazole Sodium 40 mg 07/31/25 09:00 08/01/25 08:24 Pantoprazole 40 Mg Tablet PO 40 mg QAM JESSIE Administration Potassium Chloride 20 meq 07/31/25 09:00 08/01/25 16:58 Potassium Chloride 20 Meq Er Tablet PO 20 meq BID JESSIE Administration Prednisone 40 mg 07/31/25 11:50 08/01/25 08:23 Prednisone 20 Mg Tablet PO 40 mg DAILY@0800 JESSIE Administration Ropinirole HCl 1 mg 07/31/25 09:00 08/01/25 16:58 Ropinirole Hcl 1 Mg Tablet PO 1 mg TID JESSIE Administration Spironolactone 25 mg 07/31/25 09:00 08/01/25 08:24 Spironolactone 25 Mg Tablet PO 25 mg DAILY JESSIE Administration Radiology Results: ITS Impressions Chest X-Ray 07/30/25 15:01 Impression: Early bilateral pneumonia Chest CT 07/31/25 14:05 IMPRESSION: Small area of consolidation in the medial segment of the right middle lobe consistent with early pneumonia. Finding should be followed radiographically until clear. Venous Doppler Study 08/01/25 08:07 Impression: Negative for DVT. Labs Labs: Laboratory Results - last 24 hr 07/31/25 07/31/25 08/01/25 09:02 13:34 09:00 WBC 14.0 H RBC 3.87 L Hgb 11.3 L Hct 37.1 MCV 95.9 MCH 29.2 MCHC 30.5 L RDW 14.7 H Plt Count 287 MPV 9.7 Sodium 140 Potassium 3.9 Chloride 99 Carbon Dioxide 36 H Anion Gap 5 BUN 37 H D Creatinine 1.19 H Estim Creat Clear Calc 33 Estimated GFR 44 L Glucose 101 Calcium 9.0 Magnesium 2.3 Total Bilirubin 0.5 AST 38 H ALT 32 Alkaline Phosphatase 60 Total Protein 7.1 Albumin 3.9 Chlamy pneumoniae PCR Not detected Adenovirus (PCR) Not detected B. pertussis DNA (PCR) Not detected B.parapertussis DNA PCR Not detected Coronavirus OC43 (PCR) Not detected Coronavirus HKU1 (PCR) Not detected Coronavirus 229E (PCR) Not detected Coronavirus NL63 (PCR) Not detected Human Metapneumovir PCR Not detected Influenza A (H1) PCR Not detected Influ A (H1/) PCR Not detected Influenza A (H3) PCR Not detected Influenza Type A (PCR) Not detected Influenza Type B (PCR) Not detected M.pneumoniae IgM Titer <770 M. pneumoniae (PCR) Not detected Parainfluenza 1 (PCR) Not detected Parainfluenza 2 (PCR) Not detected Parainfluenza 3 (PCR) Not detected Parainfluenza 4 (PCR) Not detected RSV (PCR) Not detected Entero/Rhino (PCR) Not detected SARS-CoV-2 (PCR) Not detected 08/02/25 03:44 WBC 11.2 H RBC 3.54 L Hgb 10.2 L Hct 33.7 L MCV 95.2 MCH 28.8 MCHC 30.3 L RDW 14.5 Plt Count 283 MPV 9.9 Sodium 136 L Potassium 3.8 Chloride 99 Carbon Dioxide 33 H Anion Gap 4 BUN 50 H D Creatinine 1.44 H Estim Creat Clear Calc 28 Estimated GFR 36 L Glucose 105 Calcium 8.5 Magnesium Total Bilirubin 0.4 AST 36 ALT 30 Alkaline Phosphatase 60 Total Protein 6.5 Albumin 3.6 Chlamy pneumoniae PCR Adenovirus (PCR) B. pertussis DNA (PCR) B.parapertussis DNA PCR Coronavirus OC43 (PCR) Coronavirus HKU1 (PCR) Coronavirus 229E (PCR) Coronavirus NL63 (PCR) Human Metapneumovir PCR Influenza A (H1) PCR Influ A (H1/) PCR Influenza A (H3) PCR Influenza Type A (PCR) Influenza Type B (PCR) M.pneumoniae IgM Titer M. pneumoniae (PCR) Parainfluenza 1 (PCR) Parainfluenza 2 (PCR) Parainfluenza 3 (PCR) Parainfluenza 4 (PCR) RSV (PCR) Entero/Rhino (PCR) SARS-CoV-2 (PCR) Quality VTE Prophylaxis VTE prophylaxis: pharmacologic ordered Hospitalist MIPS Advance Care Plan I have confirmed that the patient's Advanced Care Plan is present, code status is documented, or surrogate decision maker is listed in patient medical record.: Yes Medication Reconciliation I have utilized all available resources to obtain, update and review the patients current medications (includes all prescriptions, OTC, herbals, cannabis, and nutritional supplements).: Yes
[2025-08-02 07:56] LABS: NT Pro B Type Natriuretic Pept 1580 pg/mL (19.9-100)
[2025-08-02] MEDS: PANTOPRAZOLE 40 MG TABLET PO (08:20)
[2025-08-02] MEDS: GABAPENTIN 300 MG CAPSULE PO ×3 (08:20→17:42)
[2025-08-02] MEDS: guaiFENesin 12 HR 600 MG TABCR 1200 MG PO ×2 (08:20→22:07)
[2025-08-02] MEDS: SPIRONOLACTONE 25 MG TABLET PO (08:21)
[2025-08-02] MEDS: ESCITALOPRAM OXALATE 10 MG TABLET PO (08:21)
[2025-08-02] MEDS: ASPIRIN 81 MG ENTERIC TABLET PO (08:21)
[2025-08-02] MEDS: POTASSIUM CHLORIDE 20 MEQ ER TABLET PO ×2 (08:21→17:45)
[2025-08-02] MEDS: FUROSEMIDE 40 MG TABLET PO ×2 (08:21→17:42)
--- NOTE | 2025-08-02 08:45 | P.PNPL_ITS ---
Progress Note: A&P Assessment and Plan (1) Chronic obstructive pulmonary disease: Qualifiers: COPD type: COPD with acute exacerbation Qualified Code(s): J44.1 - Chronic obstructive pulmonary disease with (acute) exacerbation Code(s): J44.9 - Chronic obstructive pulmonary disease, unspecified Status: Acute Assessment and Plan: GOLD grade 4 group E COPD Patient with tobacco use (35 PY, quit 2003), Alpha 1 anti trypsin genotype MM. PFTs 11/28/2022 with FEV1 0.59 L, 26%, no bronchodilator response, airtrapping, decreased DLCO when corrected for alveolar volume, severe apical panlobular emphysema on CT scan of the neck from 03/04/2019 and chest on 08/13/2022, hypoxic respiratory failure on 2 L NC rest and activity since 2020, hypercarbic respiratory failure with ABG on 2 L was 7.42/56/47 and started on noninvasive ventilation with 4 L bleed in on 12/2022. Unable to tolerate noninvasive ventilation due to mask discomfort despite multiple mask trials. Wheelchair bound after she had a stroke in 2013 with dyspnea on exertion with wheelchair transfers and pivots Echocardiogram from 06/06/2022 with LVEF 55-60, grade 1 diastolic dysfunction, Normal right ventricular size and function. Normal right atrial size. No tricuspid regurg to measure RVSP. Inpatient COPD exacerbation and pneumonia 09/15/2022. 09/15/2022 white blood cell count 18.8, eosinophils 1.3%=244/uL. 08/22/2022 white blood cell count 10.5, eosinophils 3.1% equals 326/uL. Last inpatient hospitalization 06/29/2023 (rhinoviral infection). Currently the patient has COPD exacerbation precipitated by turning the heat on in her building. She was seen in the emergency department with wheezing, treated with Solu-Medrol, bronchodilators and antibiotics for possible pneumonia. 07/31/2025: Patient wore the noninvasive ventilator with a BiPAP mode overnight. When I enter the room she was on the BiPAP. She told me she was much better. She told me she is breathing back to her normal. She denied fever cough, phlegm or hemoptysis. She is afebrile. White blood cell count 12.5, creatinine 1.11, BNP 1520, procalcitonin 0.1, CRP 2.2, D-dimer 1.27. Patient told me the BiPAP was uncomfortable and I placed her on noninvasive ventilation with the AVAPS mode and adjusted the settings to come for resulting in a rate of 14, tidal volume 500, EPAP 7, minimal inspiratory pressure 8, maximal inspiratory pressure 25, inspiratory time 1.2, rise of 5 which is a slowest and 30% FiO2. She was requesting to come off of the noninvasive ventilator and I placed her on 2 L nasal cannula and she had no respiratory distress with saturations 96%. Plan: Agree with treatment for COPD exacerbation. Patient has improved and I will change her Solu-Medrol to prednisone 40 mg p.o. q.day. she has no wheezing and I will decrease her duo nebulizer frequency from q.4 hours to q.6 hours. I will continued Claritin 10 mg p.o. q.day and guaifenesin 600 mg p.o. b.i.d.. I will send a respiratory pathogen panel, urine for Legionella antigen, urine for pneumococcal antigen and mycoplasma IgM looking for infectious etiologies. I will obtain a CT scan of the chest to assess for pneumonia, CHF, or other concurrent illnesses. Patient with positive D-dimer the low clinical suspicion for PE. she has had leg trauma with swelling of the legs and will obtain lower extremity Dopplers to exclude DVT. Later in the day patient had a CT scan of the chest which demonstrated a new right middle lobe infiltrate and severe apical predominant centrilobular emphysema. Echocardiogram with an LVEF of 40-45%, grade 1 diastolic dysfunction, normal RV size and function. Normal right atrial size. PASP 19. 08/01/2025: Patient tells me she has rest shortness of breath and the same dyspnea on exertion is yesterday. She has coughing but the phlegm is stuck in her throat. Her nasal congestion is the same. Overall she feels slightly worse than yesterday. When I enter the room she was on 2 L nasal cannula saturation 90%. She is afebrile. White blood cell count 12.5, creatinine 1.19, yesterday she was positive 455 mL and is cumulative positive 495 mL since admission. Weight today is 66.4. Plan: Will continue treatment for COPD exacerbation and pneumonia. Continue prednisone 40 mg p.o. q.day, day 3. Continue ceftriaxone and azithromycin, both day 3. Continue DuoNebs q.6 hours. I will increase guaifenesin from 600 to 1200 mg p.o. b.i.d.. I will add a Cornet flutter valve. Continue Claritin 10 Q.day. respiratory pathogen panel, urine for Legionella antigen, urine for pneumococcal antigen, serum mycoplasma IgM pending. 08/02/2025: Patient complains of fatigue. She still has shortness of breath at rest and dyspnea on exertion walking from the bed to the chair. She was in the chair 15 hours yesterday. She denies cough and phlegm and says that her phlegm just gets stuck in her throat. Last night she did not wear the noninvasive ventilator and wore 2 L nasal cannula. When I enter the room she was on 2 L nasal cannula saturations 99%. I decreased from 1 L and her saturati ons were 97%. White blood cell count 11.2, creatinine 1.44. BNP is unchanged from 1520 on 07/31 to 1580 today. she is using a Cornet flutter valve. Yesterday she was positive 2 mL and cumulative she is positive 1.2 L since admission. Her weight today is 68.7. Lasix is on on hold because of creatinine at 1.44. MRSA nasal swab negative. Respiratory pathogen panel negative, serum mycoplasma IgM negative, urine for Legionella antigen, urine for pneumococcal antigen pending. Plan: Will continue treatment for COPD exacerbation and pneumonia. Continue prednisone 40 mg p.o. q.day, day 4. Continue ceftriaxone and azithromycin, both day 4. Continue DuoNebs q.6 hours, guaifenesin 1200 mg p.o. b.i.d. I will add Mucomyst nebulizers q.6 hours.. Continue flutter valve. Continue Claritin [address] Wilkins, will follow with you (2) Respiratory failure with hypoxia and hypercapnia: Qualifiers: Chronicity: acute on chronic Qualified Code(s): J96.21 - Acute and chronic respiratory failure with hypoxia; J96.22 - Acute and chronic respiratory failure with hypercapnia Code(s): J96.91 - Respiratory failure, unspecified with hypoxia; J96.92 - Respiratory failure, unspecified with hypercapnia Status: Acute Assessment and Plan: patient with chronic hypoxemic respiratory failure requiring 4 L bleed in at night with her noninvasive ventilator. last home O2 assessment on 07/03/2023 required 4 L at rest and 5 L with activity. Recently the patient tells me she has when wearing 2 L nasal cannula 24-7 and this is increased to 3 L 24-7 over the last week. Regarding her chronic hypercarbic respiratory failure patient had ABG on 11/28/2022 at 7.42/56/47 on 2 L nasal cannula. Patient was set up with noninvasive ventilation with AVAPS AE mode through via [employer] with auto breath rate, tidal volume 525, minimum EPAP 5, maximum EPAP 10, minimum pressure support 10, maximum pressure support 20, AVAPS rate 5, inspiratory time 1.0. Patient tried multiple face mass but never could find a mask that she could tolerate and therefore has been non compliant. 01/29/2025: Overnight oximetry on noninvasive ventilator with 4 L bleed in. Recording duration 7 hours and 53 minutes. Basal saturation 97.5. Low saturation 94%. High saturation 99%. Time with saturation less than or equal to 88% was 0 minutes. Oxygen desaturation 0. 4 L provides adequate oxygenation. Will call the patient to determine if she was wearing her noninvasive ventilator or not. 07/30/2025 patient presents with COPD exacerbation and ABG on 2 L nasal cannula 7.36/77/ 30. This was a mixed sample with chronic compensated respiratory acidosis. Patient was started on BiPAP rate of 12, pressures 14/6 and 40% FiO2 with repeat blood gas 7.42/66/94. She said these pressures were uncomfortable and she could not tolerate the BiPAP. 07/31/2025: I changed her to noninvasive ventilation With the AVAPS mode And adjusting the settings to comfort resulting in rate of 14, tidal volume 500, EPAP 7, minimal inspiratory pressure 8, maximal inspiratory pressure 25, inspiratory time 1.0, rise of 5 which is are slowest and 32% FiO2. plan: The patient can wear AVAPS p.r.n. during the day. She should wear AVAPS mode with the settings above tonight. I will chain an overnight oximetry and an ABG prior to removal on these settings. ABG on noninvasive ventilator will be assessed and changes will be made the night of 08/01/2025. 08/01/25: Patient wore the hospital noninvasive ventilator with the AVAPS mode and said that it hurt her nose. The air delivery was acceptable but she has a previous history of a broken nose and cannot sleep with the mask on and has failed multiple masks as an outpatient. Patient had an ABG prior to removal with pH of 7.41/60/83. Patient had an overnight oximetry on these settings and 32% FiO2 with a recording duration of 8 hours, average saturation 95%. Low saturation 88%. Time with saturation less than or equal to 88% was 0 minutes. Oxygen desaturation index 2.2. Obtained download from [employer] from October 29, 2024 to January 19, 2025.. Patient is on a Vivo 45. Patient is on a AVAPS AE mode with a set rate of 12, target volume 400 mL. EPAP minimum 5. EPAP maximum 10. minimum pressure support 10. Maximum pressure support 15. , rise time of 3. Backup inspiratory time 1.5 seconds. There has been no usage during this time interval. I interpret this download as total noncompliance. Plan: The above AVAPS settings provide adequate oxygenation and ventilation although the patient has a difficult time sleeping with this. I told her she can wear it during the day when she is awake. Tonight if she cannot sleep after 1-2 hours of the AVAPS she should discontinue this so she can get a good night's sleep. 08/02/25: Patient not tolerate the hospital machine because the mask is uncomfortable. Her family supposed to bring in her home machine today. Plan: Given her previous broken nose she cannot tolerate any mask on the bridge of her nose. Although she has failed an over the mouth under the nose mask at home she only tried this for a few days and is willing to try and over the mouth under the nose mask again. We will try to obtain this from the [employer] and if not will try to provide her 1 through our respiratory division. Will change her home noninvasive ventilator settings to AVAPS AE with a rate of 14, tidal volume 500, EPAP minimum 5, EPAP maximum 15, pressure support minimum 10, pressure support maximum 25. (3) Lung cancer: Code(s): C34.90 - Malignant neoplasm of unspecified part of unspecified bronchus or lung Status: Acute Assessment and Plan: patient with a history of tobacco use, 35 pack years, quit 2003. patient with a history of small cell lung cancer in 02/2013 status post chemotherapy and radiation therapy. Is felt that she was cured. Given her continued symptoms and hypoxemic respiratory failure I will obtain a CT scan of the chest. 08/13/2022: Chest CT demonstrated severe apical predominant panlobular emphysema, bilateral lower lobe atelectasis.? No evidence of lung cancer. 01/16/23: Patient has quit for smoking for greater than 15 years and does not qualify for low-dose CT scan. 06/30/23: CT angiogram of the chest shows no pulmonary embolism severe emphysema no concerning nodules or masses. 12/02/23: Quit tobacco in 2003 and does not qualify for low-dose CT scan. 05/18/2024: Patient quit tobacco in 2003 and does not qualify for low-dose CT scan screening. 11/15/2024: Patient quit tobacco in 2003 and does not qualify for low-dose CT scan. 07/31/2025: Will obtain CT scan of the chest. Later in the day patient had a CT scan of the chest which demonstrated a new right middle lobe infiltrate and severe apical predominant centrilobular emphysema. No concerning nodules or masses. Subjective Date/time seen: 08/02/25 08:45 Interval history: 07/31/2025: This is a new pulmonary consult for COPD exacerbation and acute on chronic hypercarbic and hypoxemic respiratory failure. Patient with a history of gold grade 4 group E COPD with chronic hypercarbic and hypoxemic respiratory failure prescribed a nonnvasive ventilator with the AVAPS mode but is intolerant, 2 L nasal cannula 24-7, diastolic heart failure, small cell lung cancer 02/2013 status post chemotherapy and radiation and felt to be cured. Patient is followed in the [facility] in last seen on 06/02/2025. At that time she was stable on Advair 230-21 at 2 puffs b.i.d., Incruse 1 puff q.day, albuterol p.r.n., 2 L 24-7. She was prescribed noninvasive ventilation b ut not wearing it because she has failed multiple masks. She was in wheelchair from a previous stroke but had been working with PT at assisted living with walking in the halls with a walker. Medications were continued, recommended regular exercise is stain up-to-date on vaccines. 07/02/2025: The patient was seen in the emergency department for leg trauma after hitting this on her wheelchair with painful swelling. She was diagnosed with a hematoma. Again seen in the ER 07/18/2025 for the same issue and had an I and D with 5 mL expressed. Placed on Keflex. Again seen on 07/21/2025 With leg pain as her PCP but multiple stitches in her leg and a compression bandage. The compression bandage was removed and pain went away. On 07/24/2025 the heater was turned on in her facility and this caused her to have shortness of breath, wheezing and a dry cough. She then developed decreased appetite and pain throughout her body. She had chills but no fever. 07/30/25: Symptoms progressed and she presented to the emergency room on 07/31/25. Her blood pressure is 116/98, heart rate 88, respirations 24 with saturations on 3 L nasal cannula 100%. She was afebrile. She had a faint wheeze with decreased breath sounds. White blood cell count was 15.5, creatinine was 1.12, COVID influenza RSV RT PCR assay negative, MRSA swab negative. ABG on 2 L nasal cannula 7.36//30. He has and fills were 1.9% equals 295 per micro L. patient was placed on BiPAP rate of 12, pressures 14/6 and 40% with a repeat blood gas of 7.42/66/94. Patient was treated with Solu- Medrol, ceftriaxone, doxycycline that was changed to azithromycin. Patient also started on Claritin 10 and guaifenesin 600 p.o. b.i.d.. 07/31/2025: Patient wore the noninvasive ventilator with a BiPAP mode overnight. When I enter the room she was on the BiPAP. She told me she was much better. She told me she is breathing back to her normal. She denied fever cough, phlegm or hemoptysis. She is afebrile. White blood cell count 12.5, creatinine 1.11, BNP 1520, procalcitonin 0.1, CRP 2.2, D-dimer 1.27. Patient told me the BiPAP was uncomfortable and I placed her on noninvasive ventilation with the AVAPS mode and adjusted the settings to come for resulting in a rate of 14, tidal volume 500, EPAP 7, minimal inspiratory pressure 8, maximal inspiratory pressure 25, inspiratory time 1.2, rise of 5 which is a slowest and 32% FiO2. She was requesting to come off of the noninvasive ventilator and I placed her on 2 L nasal cannula and she had no respiratory distress with saturations 96%. Later in the day patient had a CT scan of the chest which demonstrated a new right middle lobe infiltrate and severe apical predominant centrilobular emphysema. Echocardiogram with an LVEF of 40-45%, grade 1 diastolic dysfunction, normal RV size and function. Normal right atrial size. PASP 19. Obtained download from [employer] from October 29, 2024 to January 19, 2025.. Patient is on a Vivo 45. Patient is on a AVAPS AE mode with a set rate of 12, target volume 400 mL. EPAP minimum 5. EPAP maximum 10. minimum pressure support 10. Maximum pressure support 15. , rise time of 3. Backup inspiratory time 1.5 seconds. There has been no usage during this time interval. I interpret this download as total noncompliance. 08/01/2025: Patient tells me she has rest shortness of breath and the same dyspnea on exertion is yesterday. She has coughing but the phlegm is stuck in her throat. Her nasal congestion is the same. Overall she feels slightly worse than yesterday. When I enter the room she was on 2 L nasal cannula saturation 90%. She is afebrile. White blood cell count 12.5, creatinine 1.19, yesterday she was positive 455 mL and is cumulative positive 495 mL since admission. Weight today is 66.4. Patient wore the hospital noninvasive ventilator with the AVAPS mode and said that it hurt her nose. The air delivery was acceptable but she has a previous history of a broken nose and cannot sleep with the mask on and has failed multiple masks as an outpatient. Patient had an ABG prior to removal with pH of 7.41/60/83. Patient had an overnight oximetry on these settings and 32% FiO2 with a recording duration of 8 hours, average saturation 95%. Low saturation 88%. Time with saturation less than or equal to 88% was 0 minutes. Oxygen desaturation index 2.2. 08/02/2025: Patient complains of fatigue. She still has shortness of breath at rest and dyspnea on exertion walking from the bed to the chair. She was in the chair 15 hours yesterday. She denies cough and phlegm and says that her phlegm just gets stuck in her throat. Last night she did not wear the noninvasive ventilator and wore 2 L nasal cannula. When I enter the room she was on 2 L nasal cannula saturations 99%. I decreased from 1 L and her saturations were 97%. White blood cell count 11.2, creatinine 1.44. BNP is unchanged from 1520 on 07/31 to 1580 today. she is using a Cornet flutter valve. Yesterday she was positive 2 mL and cumulative she is positive 1.2 L since admission. Her weight today is 68.7. Lasix is on on hold because of creatinine at 1.44. DATA: 07/31/25: Echo Summary 1. Technically suboptimal study due to poor sonographic images. 2. Definity contrast administered improved wall motion interpretation. 3. Left ventricular chamber dimension is moderately enlarged. 4. Left ventricular systolic function is moderately globally reduced, estimated at 40-45. 5. The left ventricular diastolic function is grade I diastolic dysfunction. 6. No pulmonary hypertension, estimated pulmonary arterial systolic pressure is 19 mmHg. Right Ventricle Right ventricular chamber dimension is normal. Right ventricular systolic function is normal. Left Atria Left atrial chamber dimension is normal. Right Atria Right atrial chamber dimension is normal. 07/31/25: EXAMINATION:CT diagnostic chest wo con INDICATION: Pneumonia COPD COMPARISON: None. FINDINGS: Patchy consolidative changes are developing in the medial segment of t he right middle lobe. Mild scattered fibrotic and atelectatic appearing changes throughout the lower lobes bilaterally. Moderately severe centrilobular emphysematous changes especially in the upper lobes. No new nodules or masses seen. Heart and great vessels stable in size with no cardiomegaly or large pericardial effusion/bulky lymphadenopathy. Coronary artery calcification and/or stenting. 50% compression deformity of T6 similar to the previous exam. IMPRESSION: Small area of consolidation in the medial segment of the right middle lobe consistent with early pneumonia. Finding should be followed radiographically until clear. 01/29/25 - Overnight oximetry on noninvasive ventilator with 4 L bleed in. Recording duration 7 hours and 53 minutes. Basal saturation 97.5. Low saturation 94%. High saturation 99%. Time with saturation less than or equal to 88% was 0 minutes. Oxygen desaturation 0. 4 L provides adequate oxygenation. 11/06/23 - CXR - The lungs are clear, without evidence of focal consolidation or pleural effusion. Suspected COPD. Cardiomediastinal silhouette is within normal limits. Bones and soft tissues are unremarkable. 07/03/2023: Home O2 assessment: Rest room air saturations 83%. Rest nasal cannula 2 L saturation 87%. Rest nasal cannula 3 L saturation 88%. Rest nasal cannula 4 L saturation 91%. Exercise nasal cannula 4 L, saturations 88%. Exercise nasal cannula 5 L saturation 90%. Patient requires 4 L at rest and 5 with activity. 07/02/24: Patient wore her home noninvasive ventilator in the hospital, with an AVAPS-AE mode with a rate of 12, tidal volume 400, EPAP minimum 5, maximum EPAP 10, minimal pressure support 10, maximal pressure support 15, rise time of 3 with 4 L bleed in and did well.? Patient had an overnight oximetry with recording time of 7 hours and 31 minutes, average saturation 92%.? Low saturation 88%.? Time with saturation less than or equal to 88% was 1 minute, oxygen desaturation index 0.4.? Patient had a blood gas prior to removal of this machine with pH of 7.44/48/70.? These settings provide adequate oxygenation and ventilation.? 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 06/30/2023: EXAMINATION: CTA chest PE protocol ?INDICATION: Hypoxia. ?COMPARISON: Chest CT 08/12/2022 ?FINDINGS: There is severe emphysema. There is mild atelectasis bilaterally, worst in the lower lobes. No pleural effusion. The heart size is normal. There are coronary artery calcifications. No pericardial effusion. There is no pulmonary embolus. There is a gallstone in the gallbladder which is normal in size. There is a ventral hernia containing colon. There is kyphosis and moderate spondylosis of thoracic spine. There is a chronic burst fracture of T6. There is a chronic compression fracture of L1. ?IMPRESSION: ?1. No pulmonary embolus. ?2. Severe emphysema. ?11/28/2022 PFTs ??The test was performed and results interpreted in accordance with the 2019 and 2005 ATS/ERS Task Force guidelines respectively using the Global Lung Function Initiative-2012 reference equations. Patient demonstrated good effort and cooperation. Reproducibility criteria were met. The quality of the pre bronchodilator spirometry maneuver was Grade A and post bronchodilator spirometry maneuver was Grade A. ??Findings: ??Spirometry: ? There is decreased maximal expiratory airflow at all lung volumes with concave expiratory flow tracing.? The contour the inspiratory flow tracing is normal.? pre bronchodilator FVC is 1.39 L, 48% predicted.? The pre bronchodilator FEV1 is 0.59 L, 26% predicted.? The pre bronchodilator FEV1:? FVC ratio is 42%.? The post bronchodilator FVC is 1.50 L,? representing an 8% increase.? The post bronchodilator FEV1 is 0.63 L, representing a 6% increase.? The post bronchodilator FEV1:? FVC ratio is 42%.? ??Plethysmography:? The total lung capacity is 4.40 L, 85% predicted.? The functional residual capacity is 3.27 L, 110% predicted.? The residual volume is 3.01 L, 133% predicted.? ??Diffusing capacity:? The diffusing capacity unadjusted for hemoglobin and carboxyhemoglobin is 5.2, 25% predicted.? The diffusing capacity adjusted for alveolar volume is 2.58, 61% predicted. ??When compared to PFTs from [facility] on 06/20/2019 the post bronchodilator FVC has decreased from 2.10 L to 1.50 L.? The post bronchodilator FEV1 has decreased from 0.80 L to 0.63 L.? The total lung capacity is unchanged from 4.88 L to 4.40 L.? The functional residual capacity is unchanged from 3.71 L to 3.27 L.? The residual volume is unchanged from 3.24 L to 3.01 L.? The diffusing capacity unadjusted from hemoglobin and carboxyhemoglobin is unchanged from 5.6 to 5.2.? The diffusing capacity adjusted for alveolar volume is unchanged from 2.39 to 2.58. ??Impression:?There is a very severe obstructive abnormality without significant improvement after inhaling a single dose of albuterol.?The increase in residual volume is consistent with?air trapping?from an obstructive abnormality.? The diffusing capacity unadjusted for hemoglobin and carboxyhemoglobin is severely decreased and?remains mildly decreased when adjusted for alveolar volume. ??When compared to previous PFTs there has been a?greater than anticipated time dependent decrease in the FVC and FEV1?with no significant change in the total lung capacity, functional residual capacity, residual volume or DLCO. ?11/28/2022? ABG on 2 L nasal cannula pulse delivery: ? PH 7.42 / 56/47. ? Saturations were 83%.? Checked manually saturations were 84%. ?11/28/2022 ? Home O2 assessment:? Rest room air saturation 84%.? Rest nasal cannula 1 L saturation 86%, rest nasal cannula 2 L saturation 92%.? Exercise 2 L nasal cannula saturation 90%. ? These measurements were made with continuous flow nasal cannula.? I spoke with the oil and gas exploration technician and they attempted to place the patient on 4 L pulse delivery nasal cannula and her saturations remained less than 88%.??The patient requires 2 L oxygen at rest and with exercise at continuous flow. ??? Collectively these results demonstrate progression of the patient's very severe obstructive abnormality consistent with GOLD grade 4 COPD? with chronic hypercarbic respiratory failure from her COPD and hypoxemic respiratory failure from her COPD. ? Patient has chronic hypercarbic respiratory failure from her COPD and would benefit from noninvasive ventilation. ? She would benefit from noninvasive ventilation to prevent further deterioration and subsequent hospitalizations. ? Previously the patient had been on BiPAP on 05/05/2022 and she said that she could not tolerate these pressures and she had claustrophobia.?? I talked to the patient about this and she is also had a stroke with decreased mobility of her right upper extremity and is unsure if she will be able to? initiate her machine and mask at home although she is willing to try. ??? I will initiate home noninvasive ventilation with an AVAPS-AE mode? with a set rate of auto, tidal volume 500, minimal inspiratory pressure 5, maximal expiratory pressure 15, minimal inspiratory pressure 6, maximal inspiratory pressure 25,? rise time 1.0 sec, and 2 L bleed in. These settings can be adjusted for patient comfort on initial set up. ??? The pulmonary function test coordinator has reached out to [facility] to see if this can be coordinated through them and the outpatient clinic will coordinate our efforts with the PFT lab. ?? 08/12/2022 EXAMINATION: CT diagnostic chest wo con ???INDICATION: SOB for 2 days. COPD. History of lung cancer. ???COMPARISON: 07/17/2022 portable AP chest ???02/28/2019 CTA chest ???FINDINGS: Heart size is within normal range. No pericardial or pleural ef fusion. ???There is extensive thoracic aortic and some great vessel calcifications in addition to prominent coronary artery calcifications. No thoracic aortic aneurysm. ???Normal size and attenuation of the thyroid gland. No hilar or mediastinal mass lesion or lymphadenopathy. ???Moderate to moderately severe emphysema and bilateral pulmonary hyperinflation. ???There is a chronic linear scarring in the right lower lobe and left lower lobe. There is another linear scar or discoid atelectasis in the right lower lobe since 02/28/2019. ???There is minimal atelectasis at the dependent lung bases, both lower lobes. ???Included portions of the adrenal glands are unremarkable. ???One or more ventral abdominal wall hernias. ???Multiple old healed right rib fractures. ???Moderate anterior wedge compression fracture deformity of T6. ???Degenerative disc disease of the lower cervical spine and degenerative spurring of the thoracic spine. ???No suspicious osteolytic or osteoblastic lesions are noted. ???IMPRESSION:? Moderate to moderately severe emphysema ???Mild discoid atelectasis and/or scarring in the lower lobes ???Minimal bilateral lower lobe dependent atelectasis ???Aortic, great vessel and coronary artery atherosclerosis ???06/05/2022 CXR EXAMINATION: XR chest 2V ?INDICATION: SOB,?COMPARISON: 05/19/2022, 05/07/2022 ?FINDINGS: There are small pleural effusions. There is no pneumothorax. There are minimal airspace opacities of the lung bases. The cardiomediastinal silhouette is normal. There is a chronic compression fracture of T6 without significant change. ?IMPRESSION: ?1. Small pleural effusions with minimal bibasilar airspace opacities, likely atelectasis. ???04/03/2022 ABG on 3 L 7.42/49/111 ???03/10/2022 ABG RA 7.42/50/44 ?06/20/2019:? I have PFT report from [facility]. ???Findings: ???Spirometry:? There is decreased maximal expiratory airflow at all lung volumes with concave expiratory flow tracing.? The contour of the inspiratory flow tracing is normal.? The pre bronchodilator FVC is 1.64 L, 64% predicted.? The pre bronchodilator FEV1 is 0.76 L, 37% predicted.? The pre bronchodilator FEV1:? FVC ratio is 47%.? The post bronchodilator FVC is 2.10 L, representing a 28% increase.? The post bronchodilator FEV1 is 0.80 L, representing a 5% increas e.? The post bronchodilator FEV1:? FVC ratio is 38%. ???Plethysmography:? The total lung capacity is 4.88 L, 110% predicted.? The functional residual capacity is 3.71 L, 159% predicted.? The residual volume is 3.24 L, 185% predicted. ???Diffusing capacity:? The diffusing capacity unadjusted for hemoglobin and carboxyhemoglobin is 5.6, 28% predicted.? The diffusing capacity adjusted for alveolar volume is 2.39, 66% predicted. ?My?Impression: There is a severe obstructive abnormality with significant improvement after inhaling a single dose of albuterol. The increase in residual volume is consistent with air trapping from an obstructive abnormality.? Hyperinflation is present as demonstrated by the increase in functional residual capacity and is consistent with an obstructive abnormality. The diffusing capacity unadjusted for hemoglobin and carboxyhemoglobin is severely decreased and is mildly decreased when adjusted for alveolar volume. ???When compared to the spirometry on 03/03/2019 the pre bronchodilator FVC has increased from 1.05 L to 1.64 L. The pre bronchodilator FEV1 has increased from 0.47 L to 0.76 L. ?03/03/2019 [place] [facility] [place]:? The calculated ejection fraction is 52.? Left ventricular diastolic function is abnormal, grade 1 impaired relaxation.? Right ventricular systolic function is normal.? No evidence of pericardial effusion.? A trace of tricuspid regurgitation normal RV size and function normal right atrial size. ???01/09/2019 echocardiogram report from [facility].? Summary:? The left ventricle size is normal.? The left ventricular systolic function is lower limits of normal with an estimated LV EF of 50-55%.? Left ventricular diastolic function is abnormal grade 1, impaired relaxation, right ventricular systolic pressure is 37, mild aortic valve sclerosis ?03/03/2019:? I have a spirometry report from [facility]. ??Spirometry:? There is decreased maximal expiratory airflow at all lung volumes with concave expiratory flow tracing.? The contour the inspiratory flow tracing is normal.? The FVC is 1.05 L, 36% predicted.? The FEV1 is 0.47 L, 20% predicted.? The FEV1:? FVC ratio is 45%. ???My impression:? There is a very severe obstructive abnormality. ?? ?01/09/2019:? CT angiogram chest report from [facility].? Impression: no CT evidence of pulmonary embolism.? Mosaic perfusion in the upper and lower lobes may represent small airways disease or peripheral airways disease or sequela of radiation therapy if applicable.? The left hilar and suprahilar mass seen in 2012 is no longer present. ? 09/22/2018:? I have a report CT scan of the chest from [facility] demonstrating no pulmonary embolism, mild to moderate emphysema small amount of post infectious residual, no lymphadenopathy no pleural effusions, no pericardial effusion, no pneumothorax. ?? 01/09/2019: ? Report from [facility] ???EXAMINATION:CTA, CHEST FOR PE ???CLINICAL INDICATION: ???68-year-old inpatient with increasing SOB bilateral hand??and leg swelling over the past 6 weeks.? Given history of CHF, COPD,??coronary artery disease and lung carcinoma.??COMPARISON:??CTA chest abdomen pelvis with contrast 01/28/2013 and FDG PET/CT 02/02/2013 ?FINDINGS: ?The study was technically adequate??No intraluminal filling defects, wall thickening, or thrombus is present in??the pulmonary arterial vascular tree to suggest pulmonary embolus ?Although there is no given history of whether this patient had radiation or??chemotherapy the large left hilar and suprahilar mass seen in 2013 is no??longer present.? Mild thickening within the left hilar region of the??previously seen mass.? No recurrent hilar mass or mediastinal or hilar??lymphadenopathy.? Subtle mosaic perfusion of the upper lobes and dependent??lower lobes may represent small airway disease or peripheral airway disease ???or could be sequela of radiation therapy.? Additionally, small bibasilar??effusions and bilateral enhancing lower lobe atelectasis probably??compressive atelectasis.? The mosaic perfusion in the lower lobes has??superimposed interlobar septal thickening and groundglass opacities which??is suggestive of development of pulmonary edema. ???Mild cardiomegaly due to biventricular prominence.? No pericardial??effusion.? There is moderate hepatic venous reflux suggestive of a elevated??right heart pressures..? Normal caliber thoracic aorta.? No evidence of??aortic dissection. ???Included portions of the liver is homogeneous in density.? No definite??enhancing hepatic mass in the upper liver.? The spleen and adrenal glands??and tail of pancreas are unremarkable.? Stable wide neck supra umbilical?epigastric region ventral wall hernia containing nonentrapped nonobstructed?appearing loops of transverse colon unchanged since 2013.? This is only?partially included on this study. ???Bone window imaging fails to demonstrate pathologic bony abnormality.???Interval wedge compression deformity of T6. ?IMPRESSION: ???1. No CT evidence of pulmonary embolus ???2.? Mosaic perfusion in the upper and lower lobes may represent small ???airway disease or peripheral airway disease or sequela of radiation therapy?if applicable. ???3.? Concomitant findings of definite pulmonary edema bibasilar effusions??lower lobe atelectasis may represent CHF; there is always a possibility??this could represent malignant pleural effusions ???4.? Although there is no given history of bladder on this patient has?undergone radiation therapy or chemotherapy the left hilar and suprahilar?mass seen in 2013 is no longer present. ???5.? Wedge compression deformity T6 Since 2013 Review of Systems Constitutional: Constitutional: Reports no additional constitutional complaints Eyes: Eyes: Reports no additional eye complaints ENT: Reports system reviewed and no additional complaints, except as documented Cardiovascular: Cardiovascular: Reports no additional cardiovascular complaints Respiratory: Respiratory: Reports no additional respiratory complaints Gastrointestinal: Gastrointestinal: Reports no additional gastrointestinal complaints Musculoskeletal: Musculoskeletal: Reports no additional musculoskeletal complaints Neurologic: Reports system reviewed and no additional complaints, except as d ocumented Psychiatric: Psychiatric: Reports no additional psychiatric complaints Endocrine: Endocrine: Reports no additional endocrine complaints Hematologic/Lymphatic: Hematologic/Lymphatic: Reports no additional hematologic/lymphatic complaints Allergic/Immunologic: Allergic/Immunologic: Reports no additional allergic/immunologic complaints Exam Const: General: cooperative, comfortable and no acute distress Orientation/consciousness: oriented to person, oriented to place and oriented to time HENMT: Head: normal to inspection Ears: hearing grossly normal bilaterally Eyes: General: appearance normal, both eyes and all related structures Neck: Neck: normal visual inspection Chest: Chest palpation & inspection: normal inspection of the chest Resp: Effort & Inspection: normal respiratory effort and able to speak in complete sentences Auscultation: no crackles, no rales, no rhonchi, no wheezes and diminished lung sounds Cardio: Jugular venous distension: no JVD GI: Inspection: normal to inspection Skin: General skin exam: normal color Neuro: General: oriented to person, oriented to place and oriented to time Extrem: General: normal to inspection and edema Other: Positive bilateral lower extremity edema. Psych: Appearance: grossly normal Objective Data Vital Signs Vital Signs: Vital Signs - 24 hr 08/01/25 10:00 08/01/25 11:29 08/01/25 12:00 Temperature 36.7 C Pulse Rate 87 86 Respiratory Rate 22 H Blood Pressure 120/63 Pulse Oximetry 96 99 Oxygen Delivery Nasal Cannula Oxygen Flow Rate 2 08/01/25 12:00 08/01/25 14:00 08/01/25 14:22 Temperature Pulse Rate 97 82 89 Respiratory Rate 20 Blood Pressure Pulse Oximetry 94 Oxygen Delivery Nasal Cannula Oxygen Flow Rate 2 08/01/25 14:22 08/01/25 15:20 08/01/25 15:52 Temperature 36.7 C Pulse Rate 89 73 90 Respiratory Rate 20 18 29 H Blood Pressure 118/57 L Pulse Oximetry 95 Oxygen Delivery Oxygen Flow Rate 08/01/25 16:00 08/01/25 16:00 08/01/25 18:00 Temperature Pulse Rate 88 96 Respiratory Rate Blood Pressure Pulse Oximetry 98 Oxygen Delivery Nasal Cannula Oxygen Flow Rate 2 08/01/25 19:20 08/01/25 19:30 08/01/25 20:00 Temperature 36.7 C Pulse Rate 91 100 88 Respiratory Rate 20 20 24 H Blood Pressure 137/73 Pulse Oximetry 98 Oxygen Delivery Oxygen Flow Rate 08/01/25 20:00 08/01/25 20:00 08/01/25 22:00 Temperature Pulse Rate 95 84 Respiratory Rate Blood Pressure Pulse Oximetry 98 Oxygen Delivery Nasal Cannula Oxygen Flow Rate 2 08/01/25 23:40 08/02/25 00:00 08/02/25 00:00 Temperature 36.4 C L Pulse Rate 80 79 Respiratory Rate 23 H Blood Pressure 122/64 Pulse Oximetry 100 97 Oxygen Delivery Nasal Cannula Oxygen Flow Rate 2 08/02/25 01:11 08/02/25 01:23 08/02/25 02:00 Temperature Pulse Rate 79 92 81 Respiratory Rate 20 20 Blood Pressure Pulse Oximetry Oxygen Delivery Oxygen Flow Rate 08/02/25 04:00 08/02/25 04:00 08/02/25 04:00 Temperature 36.3 C L Pulse Rate 73 59 L Respiratory Rate Blood Pressure 119/69 Pulse Oximetry 99 99 Oxygen Delivery Nasal Cannula Oxygen Flow Rate 2 08/02/25 06:00 08/02/25 07:54 08/02/25 07:54 Temperature Pulse Rate 60 76 Respiratory Rate 20 Blood Pressure Pulse Oximetry 100 Oxygen Delivery Nasal Cannula Oxygen Flow Rate 3 08/02/25 07:54 08/02/25 08:03 Temperature 36.6 C Pulse Rate 75 77 Respiratory Rate 22 H 24 H Blood Pressure 116/67 Pulse Oximetry 100 Oxygen Delivery Oxygen Flow Rate Intake/Output Intake/Output: Intake & Output 07/30/25 07/31/25 08/01/25 08/02/25 23:59 23:59 23:59 23:59 Intake Total 300 1405 822 450 Output Total 650 820 260 Balance 300 755 2 190 Meds/Results Medications: Active Medications Generic Name Dose Route Start Last Admin Trade Name Freq PRN Reason Stop Dose Admin Acetaminophen 650 mg 07/30/25 18:01 08/02/25 00:09 Acetaminophen 325 Mg Tablet PO 650 mg Q6H PRN Administration Mild Pain (1-3) or Fever Acetylcysteine 200 mg 08/02/25 14:00 Acetylcysteine 20% Inhal Soln 800 Mg/4 Ml Vial INHALATION Q6HRT JESSIE Albuterol/Ipratropium 3 ml 07/31/25 14:00 08/02/25 07:53 Ipratropium 0.5 Mg/Albuterol Sulfate 2.5 Mg (Base) Ampul.Neb 3 Ml INHALATION 3 ml Q6HRT JESSIE Administration Alprazolam 0.5 mg 07/30/25 23:58 08/02/25 02:15 Alprazolam (*Crx) 0.5 Mg Tablet PO 0.5 mg Q8H PRN Administration Anxiety Aspirin 81 mg 07/31/25 09:00 08/02/25 08:21 Aspirin 81 Mg Enteric Tablet PO 81 mg DAILY JESSIE Administration Atorvastatin Calcium 40 mg 07/30/25 21:00 08/01/25 21:09 Atorvastatin 40 Mg Tablet PO 40 mg HS JESSIE Administration Enoxaparin Sodium 40 mg 07/30/25 21:00 08/01/25 21:09 Enoxaparin 40 Mg/0.4 Ml Syringe SUB-Q 40 mg HS JESSIE Administration Escitalopram Oxalate 10 mg 07/31/25 09:00 08/02/25 08:21 Escitalopram Oxalate 10 Mg Tablet PO 10 mg DAILY JESSIE Administration Furosemide 40 mg 07/31/25 09:00 08/02/25 08:21 Furosemide 40 Mg Tablet PO 40 mg BID JESSIE Administration Gabapentin 300 mg 07/31/25 09:00 08/02/25 08:20 Gabapentin 300 Mg Capsule PO 300 mg TID JESSIE Administration Guaifenesin 1,200 mg 08/01/25 21:00 08/02/25 08:20 Guaifenesin 12 Hr 600 Mg Tabcr PO 1,200 mg Q12HR JESSIE Administration Ceftriaxone Sodium 1 gm/ 50 mls @ 100 mls/hr 07/31/25 16:00 08/01/25 15:03 Sodium Chloride IVPB 100 mls/hr Q24H JESSIE Administration Azithromycin 500 mg/ Sodium 250 mls @ 250 mls/hr 07/30/25 19:00 08/01/25 18:19 Chloride IVPB 08/03/25 19:59 250 mls/hr Q24H JESSIE Administration Levetiracetam 250 mg 07/30/25 21:00 08/02/25 08:21 Levetiracetam 250 Mg Tablet PO 250 mg Q12HR JESSIE Administration Loratadine 10 mg 07/30/25 21:00 08/01/25 21:10 Loratadine 10 Mg Tablet PO 10 mg HS JESSIE Administration Melatonin 5 mg 07/30/25 18:38 07/30/25 20:49 Melatonin 5 Mg Tablet PO 5 mg HS PRN Administration Insomnia Pantoprazole Sodium 40 mg 07/31/25 09:00 08/02/25 08:20 Pantoprazole 40 Mg Tablet PO 40 mg QAM JESSIE Administration Potassium Chloride 20 meq 07/31/25 09:00 08/02/25 08:21 Potassium Chloride 20 Meq Er Tablet PO 20 meq BID JESSIE Administration Prednisone 40 mg 07/31/25 11:50 08/02/25 08:20 Prednisone 20 Mg Tablet PO 40 mg DAILY@0800 JESSIE Administration Ropinirole HCl 1 mg 07/31/25 09:00 08/02/25 08:21 Ropinirole Hcl 1 Mg Tablet PO 1 mg TID JESSIE Administration Spironolactone 25 mg 07/31/25 09:00 08/02/25 08:21 Spironolactone 25 Mg Tablet PO 25 mg DAILY JESSIE Administration Radiology Results: ITS Impressions Chest X-Ray 07/30/25 15:01 Impression: Early bilateral pneumonia Chest CT 07/31/25 14:05 IMPRESSION: Small area of consolidation in the medial segment of the right middle lobe consistent with early pneumonia. Finding should be followed radiographically until clear. Venous Doppler Study 08/01/25 08:07 Impression: Negative for DVT. Labs Labs: Laboratory Results - last 24 hr 07/31/25 07/31/25 08/01/25 09:02 13:34 09:00 WBC 14.0 H RBC 3.87 L Hgb 11.3 L Hct 37.1 MCV 95.9 MCH 29.2 MCHC 30.5 L RDW 14.7 H Plt Count 287 MPV 9.7 Sodium 140 Potassium 3.9 Chloride 99 Carbon Dioxide 36 H Anion Gap 5 BUN 37 H D Creatinine 1.19 H Estim Creat Clear Calc 33 Estimated GFR 44 L Glucose 101 Calcium 9.0 Magnesium 2.3 Total Bilirubin 0.5 AST 38 H ALT 32 Alkaline Phosphatase 60 NT-Pro-B Natriuret Pep Total Protein 7.1 Albumin 3.9 Chlamy pneumoniae PCR Not detected Adenovirus (PCR) Not detected B. pertussis DNA (PCR) Not detected B.parapertussis DNA PCR Not detected Coronavirus OC43 (PCR) Not detected Coronavirus HKU1 (PCR) Not detected Coronavirus 229E (PCR) Not detected Coronavirus NL63 (PCR) Not detected Human Metapneumovir PCR Not detected Influenza A (H1) PCR Not detected Influ A () PCR Not detected Influenza A (H3) PCR Not detected Influenza Type A (PCR) Not detected Influenza Type B (PCR) Not detected M.pneumoniae IgM Titer <770 M. pneumoniae (PCR) Not detected Parainfluenza 1 (PCR) Not detected Parainfluenza 2 (PCR) Not detected Parainfluenza 3 (PCR) Not detected Parainfluenza 4 (PCR) Not detected RSV (PCR) Not detected Entero/Rhino (PCR) Not detected SARS-CoV-2 (PCR) Not detected 08/02/25 03:44 WBC 11.2 H RBC 3.54 L Hgb 10.2 L Hct 33.7 L MCV 95.2 MCH 28.8 MCHC 30.3 L RDW 14.5 Plt Count 283 MPV 9.9 Sodium 136 L Potassium 3.8 Chloride 99 Carbon Dioxide 33 H Anion Gap 4 BUN 50 H D Creatinine 1.44 H Estim Creat Clear Calc 28 Estimated GFR 36 L Glucose 105 Calcium 8.5 Magnesium Total Bilirubin 0.4 AST 36 ALT 30 Alkaline Phosphatase 60 NT-Pro-B Natriuret Pep 1580 H Total Protein 6.5 Albumin 3.6 Chlamy pneumoniae PCR Adenovirus (PCR) B. pertussis DNA (PCR) B.parapertussis DNA PCR Coronavirus OC43 (PCR) Coronavirus HKU1 (PCR) Coronavirus 229E (PCR) Coronavirus NL63 (PCR) Human Metapneumovir PCR Influenza A (H1) PCR Influ A () PCR Influenza A (H3) PCR Influenza Type A (PCR) Influenza Type B (PCR) M.pneumoniae IgM Titer M. pneumoniae (PCR) Parainfluenza 1 (PCR) Parainfluenza 2 (PCR) Parainfluenza 3 (PCR) Parainfluenza 4 (PCR) RSV (PCR) Entero/Rhino (PCR) SARS-CoV-2 (PCR)
[2025-08-02] MEDS: ACETYLCYSTEINE 20% INHAL SOLN 800 MG/4 ML VIAL 200 MG INHALATION ×2 (13:38→19:23)
--- NOTE | 2025-08-02 14:04 | PC.NURSE ---
Pt transferred to room 244 at 1400. Report given to LEON [place].
[2025-08-02] MEDS: cefTRIAXone 1 GM in SODIUM CHLORIDE 0.9% IV 50 ML 100 ML IVPB (17:45)
--- NOTE | 2025-08-02 18:03 | PCRCNOTE ---
Patient spoke with Dr. Quiroz today regarding her home cpap machine. Dr Nava's would like respiratory therapist to set patient up with one of the hospital mouth only mask and cpap tubing on patients home unit for a better fit for the patient. Therapist did so and patient will attempt apnea link tonight on home unit with new mask and tubing. Richie aware.
[2025-08-02] MEDS: AZITHROMYCIN IV 500 MG in SODIUM CHLORIDE 0.9% IV 250 ML IVPB (19:23)
[2025-08-02] MEDS: ATORVASTATIN 40 MG TABLET PO (22:07)
[2025-08-02] MEDS: LORATADINE 10 MG TABLET PO (22:07)
[2025-08-02] MEDS: MELATONIN 5 MG TABLET PO (22:07)
[2025-08-02] MEDS: ENOXAPARIN 40 MG/0.4 ML SYRINGE SUB-Q (22:07)
--- NOTE | 2025-08-02 22:47 | PCRCNOTE ---
Patient had an order for overnight oximetry on her home bipap/cpap unit. Patients home unit would not work. After several attempts to restart the machine, used her home circuit and mask, tried using a hospital circuit and mask - the machine kept alarming Internal Function Failure: 2. The machine would not start up after this alarm. Unable to perform overnight oximetry on the patients home unit. Patient is wearing hospital V60 with AVAPS settings, with under the nose mask for sleep tonight. Advised patient to call home care company to tend to her machine.
[2025-08-03] VITALS (18 sets, daily range): BP systolic 126–138; BP diastolic 60–78; PULSE 58–86; RESP 16–20; TEMP 36.2–36.6; O2SAT 90–99
[2025-08-03] MEDS: IPRATROPIUM 0.5 MG/ALBUTEROL SULFATE 2.5 MG (BASE) AMPUL.NEB 3 ML INHALATION ×4 (02:44→20:01)
[2025-08-03] MEDS: ACETYLCYSTEINE 20% INHAL SOLN 800 MG/4 ML VIAL 200 MG INHALATION ×4 (02:47→20:01)
--- NOTE | 2025-08-03 04:18 | PC.NURSE ---
Pt having severe restless legs at this time, Adriana Moore notified and order received to give morning requip early.
--- NOTE | 2025-08-03 05:11 | PCRCNOTE ---
ABG was ordered for 08/03/25 0500, to be collected prior to removal of home BiPAP/CPAP machine. The home machine was not functioning. Overnight Oximetry was not completed and ABG was not drawn due to the same; last ABG from 08/01/25 am, was collected prior to removal of V60 with the same AVAPS settings as was used last night. RN aware.
[2025-08-03 08:08] LABS: Hematocrit 37.1 % (37.0-47.0); Hemoglobin 11.2 g/dL (12.0-15.0); Mean Corpuscular HGB Conc 30.2 g/dl (32-36); Mean Corpuscular Hemoglobin 28.7 pg (26-34); Mean Corpuscular Volume 95.1 fl (80-100); Platelet Count Result 316 k/mm3 (150-375); Red Blood Count 3.90 M/mm3 (4.2-5.4); White Blood Count 7.7 K/mm3 (4.5-10.0)
[2025-08-03] MEDS: ESCITALOPRAM OXALATE 10 MG TABLET PO (08:13)
[2025-08-03] MEDS: ASPIRIN 81 MG ENTERIC TABLET PO (08:13)
[2025-08-03] MEDS: SPIRONOLACTONE 25 MG TABLET PO (08:14)
[2025-08-03] MEDS: FUROSEMIDE 40 MG TABLET PO ×2 (08:14→16:04)
[2025-08-03] MEDS: PANTOPRAZOLE 40 MG TABLET PO (08:14)
[2025-08-03] MEDS: guaiFENesin 12 HR 600 MG TABCR 1200 MG PO ×2 (08:14→20:48)
[2025-08-03] MEDS: GABAPENTIN 300 MG CAPSULE PO ×3 (08:14→16:04)
[2025-08-03 08:24] LABS: Alanine Aminotransferase 31 U/L (6-35); Albumin Level 3.8 g/dL (3.5-5.1); Alkaline Phosphatase 60 U/L (38-126); Anion Gap 4 mmol/L (4-12); Aspartate Amino Transferase 29 U/L (14-36); Bilirubin,Total 0.4 mg/dL (0.2-1.3); Blood Urea Nitrogen 31 mg/dL (7-17); Calcium 8.3 mg/dL (8.4-10.2); Carbon Dioxide 37 mmol/L (22-30); Chloride 100 mmol/L (98-107); Estimated CRCL calculation 32 ml/min; Estimated Glomerular Filt Rate 42; Glucose 94 mg/dL (65-110); Potassium 3.8 mmol/L (3.4-5.0); Sodium 141 mmol/L (137-145); Total Protein 6.7 g/dL (6.3-8.2)
[2025-08-03 08:32] LABS: NT Pro B Type Natriuretic Pept 1150 pg/mL (19.9-100)
[2025-08-03] MEDS: POTASSIUM CHLORIDE 20 MEQ ER TABLET PO ×2 (09:09→16:04)
--- NOTE | 2025-08-03 09:40 | PM.PNPUL ---
Progress Note: A&P Assessment and Plan (1) Chronic obstructive pulmonary disease: Qualifiers: COPD type: COPD with acute exacerbation Qualified Code(s): J44.1 - Chronic obstructive pulmonary disease with (acute) exacerbation Code(s): J44.9 - Chronic obstructive pulmonary disease, unspecified Status: Acute Assessment and Plan: GOLD grade 4 group E COPD Patient with tobacco use (35 PY, quit 2003), Alpha 1 anti trypsin genotype MM. PFTs 11/28/2022 with FEV1 0.59 L, 26%, no bronchodilator response, airtrapping, decreased DLCO when corrected for alveolar volume, severe apical panlobular emphysema on CT scan of the neck from 03/04/2019 and chest on 08/13/2022, hypoxic respiratory failure on 2 L NC rest and activity since 2020, hypercarbic respiratory failure with ABG on 2 L was 7.42/56/47 and started on noninvasive ventilation with 4 L bleed in on 12/2022. Unable to tolerate noninvasive ventilation due to mask discomfort despite multiple mask trials. Wheelchair bound after she had a stroke in 2013 with dyspnea on exertion with wheelchair transfers and pivots Echocardiogram from 06/06/2022 with LVEF 55-60, grade 1 diastolic dysfunction, Normal right ventricular size and function. Normal right atrial size. No tricuspid regurg to measure RVSP. Inpatient COPD exacerbation and pneumonia 09/15/2022. 09/15/2022 white blood cell count 18.8, eosinophils 1.3%=244/uL. 08/22/2022 white blood cell count 10.5, eosinophils 3.1% equals 326/uL. Last inpatient hospitalization 06/29/2023 (rhinoviral infection). Currently the patient has COPD exacerbation precipitated by turning the heat on in her building. She was seen in the emergency department with wheezing, treated with Solu-Medrol, bronchodilators and antibiotics for possible pneumonia. 07/31/2025: Patient wore the noninvasive ventilator with a BiPAP mode overnight. When I enter the room she was on the BiPAP. She told me she was much better. She told me she is breathing back to her normal. She denied fever cough, phlegm or hemoptysis. She is afebrile. White blood cell count 12.5, creatinine 1.11, BNP 1520, procalcitonin 0.1, CRP 2.2, D-dimer 1.27. Patient told me the BiPAP was uncomfortable and I placed her on noninvasive ventilation with the AVAPS mode and adjusted the settings to come for resulting in a rate of 14, tidal volume 500, EPAP 7, minimal inspiratory pressure 8, maximal inspiratory pressure 25, inspiratory time 1.2, rise of 5 which is a slowest and 30% FiO2. She was requesting to come off of the noninvasive ventilator and I placed her on 2 L nasal cannula and she had no respiratory distress with saturations 96%. Plan: Agree with treatment for COPD exacerbation. Patient has improved and I will change her Solu-Medrol to prednisone 40 mg p.o. q.day. she has no wheezing and I will decrease her duo nebulizer frequency from q.4 hours to q.6 hours. I will continued Claritin 10 mg p.o. q.day and guaifenesin 600 mg p.o. b.i.d.. I will send a respiratory pathogen panel, urine for Legionella antigen, urine for pneumococcal antigen and mycoplasma IgM looking for infectious etiologies. I will obtain a CT scan of the chest to assess for pneumonia, CHF, or other concurrent illnesses. Patient with positive D-dimer the low clinical suspicion for PE. she has had leg trauma with swelling of the legs and will obtain lower extremity Dopplers to exclude DVT. Later in the day patient had a CT scan of the chest which demonstrated a new right middle lobe infiltrate and severe apical predominant centrilobular emphysema. Echocardiogram with an LVEF of 40-45%, grade 1 diastolic dysfunction, normal RV size and function. Normal right atrial size. PASP 19. 08/01/2025: Patient tells me she has rest shortness of breath and the same dyspnea on exertion is yesterday. She has coughing but the phlegm is stuck in her throat. Her nasal congestion is the same. Overall she feels slightly worse than yesterday. When I enter the room she was on 2 L nasal cannula saturation 90%. She is afebrile. White blood cell count 12.5, creatinine 1.19, yesterday she was positive 455 mL and is cumulative positive 495 mL since admission. Weight today is 66.4. Plan: Will continue treatment for COPD exacerbation and pneumonia. Continue prednisone 40 mg p.o. q.day, day 3. Continue ceftriaxone and azithromycin, both day 3. Continue DuoNebs q.6 hours. I will increase guaifenesin from 600 to 1200 mg p.o. b.i.d.. I will add a Cornet flutter valve. Continue Claritin 10 Q.day. respiratory pathogen panel, urine for Legionella antigen, urine for pneumococcal antigen, serum mycoplasma IgM pending. 08/02/2025: Patient complains of fatigue. She still has shortness of breath at rest and dyspnea on exertion walking from the bed to the chair. She was in the chair 15 hours yesterday. She denies cough and phlegm and says that her phlegm just gets stuck in her throat. Last night she did not wear the noninvasive ventilator and wore 2 L nasal cannula. When I enter the room she was on 2 L nasal cannula saturations 99%. I decreased from 1 L and her saturations were 97%. White blood cell count 11.2, creatinine 1.44. BNP is unchanged from 1520 on 07/31 to 1580 today. she is using a Cornet flutter valve. Yesterday she was positive 2 mL and cumulative she is positive 1.2 L since admission. Her weight today is 68.7. Lasix is on on hold because of creatinine at 1.44. MRSA nasal swab negative. Respiratory pathogen panel negative, serum mycoplasma IgM negative, urine for Legionella antigen, urine for pneumococcal antigen pending. Plan: Will continue treatment for COPD exacerbation and pneumonia. Continue prednisone 40 mg p.o. q.day, day 4. Continue ceftriaxone and azithromycin, both day 4. Continue DuoNebs q.6 hours, guaifenesin 1200 mg p.o. b.i.d. I will add Mucomyst nebulizers q.6 hours.. Continue flutter valve. Continue Claritin 10 Q.day. 08/03/2025: Patient tells me she is better today. She feels she is breathing 80% back to her normal. Her cough is at her normal with no phlegm. She still gets phlegm stuck in her throat. She has sinus congestion that is controlled with Claritin. She did not do any walking yesterday. When I enter the room she was on 1 L nasal cannula saturation 92%. Yesterday she was 770 mL positive. Cumulative since admission she is 1.7 L positive. Her weight today is 69.4 kg. Plan: Will continue treatment for COPD exacerbation and pneumonia. Continue prednisone 40 mg p.o. q.day, day 5. Continue ceftriaxone and azithromycin, both day 5, DC azithromycin after todays dose. Continue DuoNebs q.6 hours, guaifenesin 1200 mg p.o. b.i.d., Mucomyst nebulizers q.6 hours and flutter valve. Continue Claritin 10 Q.day. If patient remains stable and can correct the 8 hours on her home noninvasive ventilator possible discharge on 08/04/2025. Discussed with Dr. Wilkins, will follow with you (2) Respiratory failure with hypoxia and hypercapnia: Qualifiers: Chronicity: acute on chronic Qualified Code(s): J96.21 - Acute and chronic respiratory failure with hypoxia; J96.22 - Acute and chronic respiratory failure with hypercapnia Code(s): J96.91 - Respiratory failure, unspecified with hypoxia; J96.92 - Respiratory failure, unspecified with hypercapnia Status: Acute Assessment and Plan: patient with chronic hypoxemic respiratory failure requiring 4 L bleed in at night with her noninvasive ventilator. last home O2 assessment on 07/03/2023 required 4 L at rest and 5 L with activity. Recently the patient tells me she has when wearing 2 L nasal cannula 24-7 and this is increased to 3 L 24-7 over the last week. Regarding her chronic hypercarbic respiratory failure patient had ABG on 11/28/2022 at 7.42/56/47 on 2 L nasal cannula. Patient was set up with noninvasive ventilation with AVAPS AE mode through via [employer] with auto breath rate, tidal volume 525, minimum EPAP 5, maximum EPAP 10, minimum pressure support 10, maximum pressure support 20, AVAPS rate 5, inspiratory time 1.0. Patient tried multiple face mass but never could find a mask that she could tolerate and therefore has been non compliant. 01/29/2025: Overnight oximetry on noninvasive ventilator with 4 L bleed in. Recording duration 7 hours and 53 minutes. Basal saturation 97.5. Low saturation 94%. High saturation 99%. Time with saturation less than or equal to 88% was 0 minutes. Oxygen desaturation 0. 4 L provides adequate oxygenation. Will call the patient to determine if she was wearing her noninvasive ventilator or not. 07/30/2025 patient presents with COPD exacerbation and ABG on 2 L nasal cannula 7.36/77/ 30. This was a mixed sample with chronic compensated respiratory acidosis. Patient was started on BiPAP rate of 12, pressures 14/6 and 40% FiO2 with repeat blood gas 7.42/66/94. She said these pressures were uncomfortable and she could not tolerate the BiPAP. 07/31/2025: I changed her to noninvasive ventilation With the AVAPS mode And adjusting the settings to comfort resulting in rate of 14, tidal volume 500, EPAP 7, minimal inspiratory pressure 8, maximal inspiratory pressure 25, inspiratory time 1.0, rise of 5 which is are slowest and 32% FiO2. plan: The patient can wear AVAPS p.r.n. during the day. She should wear AVAPS mode with the settings above tonight. I will chain an overnight oximetry and an ABG prior to removal on these settings. ABG on noninvasive ventilator will be assessed and changes will be made the night of 08/01/2025. 08/01/25: Patient wore the hospital noninvasive ventilator with the AVAPS mode and said that it hurt her nose. The air delivery was acceptable but she has a previous history of a broken nose and cannot sleep with the mask on and has failed multiple masks as an outpatient. Patient had an ABG prior to removal with pH of 7.41/60/83. Patient had an overnight oximetry on these settings and 32% FiO2 with a recording duration of 8 hours, average saturation 95%. Low saturation 88%. Time with saturation less than or equal to 88% was 0 minutes. Oxygen desaturation index 2.2. Obtained download from [employer] from October 29, 2024 to January 19, 2025.. Patient is on a Vivo 45. Patient is on a AVAPS AE mode with a set rate of 12, target volume 400 mL. EPAP minimum 5. EPAP maximum 10. minimum pressure support 10. Maximum pressure support 15. , rise time of 3. Backup inspiratory time 1.5 seconds. There has been no usage during this time interval. I interpret this download as total noncompliance. Plan: The above AVAPS settings provide adequate oxygenation and ventilation although the patient has a difficult time sleeping with this. I told her she can wear it during the day when she is awake. Tonight if she cannot sleep after 1-2 hours of the AVAPS she should discontinue this so she can get a good night's sleep. 08/02/25: Patient not tolerate the hospital machine because the mask is uncomfortable. Her family supposed to bring in her home machine today. Plan: Given her previous broken nose she cannot tolerate any mask on the bridge of her nose. Although she has failed an over the mouth under the nose mask at home she only tried this for a few days and is willing to try and over the mouth under the nose mask again. We will try to obtain this from the [employer] and if not will try to provide her 1 through our respiratory division. Will change her home noninvasive ventilator settings to AVAPS AE with a rate of 14, tidal volume 500, EPAP minimum 5, EPAP maximum 15, pressure support minimum 10, pressure support maximum 25. 08/03/25: Patient brought her home machine in yesterday but this was giving us an error and we could not building supervisor and over the mouth under the nose mask to that her home machine. She used in over the mouth under the mat nose mask on the hospital machine with AVAPS settings and said she did well and was able to sleep. Plan: Will call [employer] via [employer] to come in and make changes to her AVAPS AE with the settings as above and initiate a over the mouth under the nose mask. will perform overnight oximetry on 2 L bleed in and ABG prior to removal. (3) Lung cancer: Code(s): C34.90 - Malignant neoplasm of unspecified part of unspecified bronchus or lung Status: Acute Assessment and Plan: patient with a history of tobacco use, 35 pack years, quit 2003. patient with a history of small cell lung cancer in 02/2013 status post chemotherapy and radiation therapy. Is felt that she was cured. Given her continued symptoms and hypoxemic respiratory failure I will obtain a CT scan of the chest. 08/13/2022: Chest CT demonstrated severe apical predominant panlobular emphysema, bilateral lower lobe atelectasis.? No evidence of lung cancer. 01/16/23: Patient has quit for smoking for greater than 15 years and does not qualify for low-dose CT scan. 06/30/23: CT angiogram of the chest shows no pulmonary embolism severe emphysema no concerning nodules or masses. 12/02/23: Quit tobacco in 2003 and does not qualify for low-dose CT scan. 05/18/2024: Patient quit tobacco in 2003 and does not qualify for low-dose CT scan screening. 11/15/2024: Patient quit tobacco in 2003 and does not qualify for low-dose CT scan. 07/31/2025: Will obtain CT scan of the chest. Later in the day patient had a CT scan of the chest which demonstrated a new right middle lobe infiltrate and severe apical predominant centrilobular emphysema. No concerning nodules or masses. Subjective Date/time seen: 08/03/25 09:40 Interval history: 07/31/2025: This is a new pulmonary consult for COPD exacerbation and acute on chronic hypercarbic and hypoxemic respiratory failure. Patient with a history of gold grade 4 group E COPD with chronic hypercarbic and hypoxemic respiratory failure prescribed a nonnvasive ventilator with the AVAPS mode but is intolerant, 2 L nasal cannula 24-7, diastolic heart failure, small cell lung cancer 02/2013 status post chemotherapy and radiation and felt to be cured. Patient is followed in the [facility] in last seen on 06/02/2025. At that time she was stable on Advair 230-21 at 2 puffs b.i.d., Incruse 1 puff q.day, albuterol p.r.n., 2 L 24-7. She was prescribed noninvasive ventilation but not wearing it because she has failed multiple masks. She was in wheelchair from a previous stroke but had been working with PT at assisted living with walking in the halls with a walker. Medications were continued, recommended regular exercise is stain up-to-date on vaccines. 07/02/2025: The patient was seen in the emergency department for leg trauma after hitting this on her wheelchair with painful swelling. She was diagnosed with a hematoma. Again seen in the ER 07/18/2025 for the same issue and had an I and D with 5 mL expressed. Placed on Keflex. Again seen on 07/21/2025 With leg pain as her PCP but multiple stitches in her leg and a compression bandage. The compression bandage was removed and pain went away. On 07/24/2025 the heater was turned on in her facility and this caused her to have shortness of breath, wheezing and a dry cough. She then developed decreased appetite and pain throughout her body. She had chills but no fever. 07/30/25: Symptoms progressed and she presented to the emergency room on 07/31/25. Her blood pressure is 116/98, heart rate 88, respirations 24 with saturations on 3 L nasal cannula 100%. She was afebrile. She had a faint wheeze with decreased breath sounds. White blood cell count was 15.5, creatinine was 1.12, COVID influenza RSV RT PCR assay negative, MRSA swab negative. ABG on 2 L nasal cannula 7.36/77/30. He has and fills were 1.9% equals 295 per micro L. patient was placed on BiPAP rate of 12, pressures 14/6 and 40% with a repeat blood gas of 7.42/66/94. Patient was treated with Solu-Medrol, ceftriaxone, doxycycline that was changed to azithromycin. Patient also started on Claritin 10 and guaifenesin 600 p.o. b.i.d.. 07/31/2025: Patient wore the noninvasive ventilator with a BiPAP mode overnight. When I enter the room she was on the BiPAP. She told me she was much better. She told me she is breathing back to her normal. She denied fever cough, phlegm or hemoptysis. She is afebrile. White blood cell count 12.5, creatinine 1.11, BNP 1520, procalcitonin 0.1, CRP 2.2, D-dimer 1.27. Patient told me the BiPAP was uncomfortable and I placed her on noninvasive ventilation with the AVAPS mode and adjusted the settings to come for resulting in a rate of 14, tidal volume 500, EPAP 7, minimal inspiratory pressure 8, maximal inspiratory pressure 25, inspiratory time 1.2, rise of 5 which is a slowest and 32% FiO2. She was requesting to come off of the noninvasive ventilator and I placed her on 2 L nasal cannula and she had no respiratory distress with saturations 96%. Later in the day patient had a CT scan of the chest which demonstrated a new right middle lobe infiltrate and severe apical predominant centrilobular emphysema. Echocardiogram with an LVEF of 40-45%, grade 1 diastolic dysfunction, normal RV size and function. Normal right atrial size. PASP 19. Obtained download from [employer] from October 29, 2024 to January 19, 2025.. Patient is on a Vivo 45. Patient is on a AVAPS AE mode with a set rate of 12, target volume 400 mL. EPAP minimum 5. EPAP maximum 10. minimum pressure support 10. Maximum pressure support 15. , rise time of 3. Backup inspiratory time 1.5 seconds. There has been no usage during this time interval. I interpret this download as total noncompliance. 08/01/2025: Patient tells me she has rest shortness of breath and the same dyspnea on exertion is yesterday. She has coughing but the phlegm is stuck in her throat. Her nasal congestion is the same. Overall she feels slightly worse than yesterday. When I enter the room she was on 2 L nasal cannula saturation 90%. She is afebrile. White blood cell count 12.5, creatinine 1.19, yesterday she was positive 455 mL and is cumulative positive 495 mL since admission. Weight today is 66.4. Patient wore the hospital noninvasive ventilator with the AVAPS mode and said that it hurt her nose. The air delivery was acceptable but she has a previous history of a broken nose and cannot sleep with the mask on and has failed multiple masks as an outpatient. Patient had an ABG prior to removal with pH of 7.41/60/83. Patient had an overnight oximetry on these settings and 32% FiO2 with a recording duration of 8 hours, average saturation 95%. Low saturation 88%. Time with saturation less than or equal to 88% was 0 minutes. Oxygen desaturation index 2.2. 08/02/2025: Patient complains of fatigue. She still has shortness of breath at rest and dyspnea on exertion walking from the bed to the chair. She was in the chair 15 hours yesterday. She denies cough and phlegm and says that her phlegm just gets stuck in her throat. Last night she did not wear the noninvasive ventilator and wore 2 L nasal cannula. When I enter the room she was on 2 L nasal cannula saturations 99%. I decreased from 1 L and her saturations were 97%. White blood cell count 11.2, creatinine 1.44. BNP is unchanged from 1520 on 07/31 to 1580 today. she is using a Cornet flutter valve. Yesterday she was positive 2 mL and cumulative she is positive 1.2 L since admission. Her weight today is 68.7. Lasix is on on hold because of creatinine at 1.44. 08/03/2025: Patient tells me she is better today. She feels she is breathing 80% back to her normal. Her cough is at her normal with no phlegm. She still gets phlegm stuck in her throat. She has sinus congestion that is controlled with Claritin. She did not do any walking yesterday. When I enter the room she was on 1 L nasal cannula saturation 92%. Yesterday she was 770 mL positive. Cumulative since admission she is 1.7 L positive. Her weight today is 69.4 kg. Patient brought her home machine in yesterday but this was giving us an error and we could not building supervisor and over the mouth under the nose mask to that her home machine. She used in over the mouth under the mat nose mask on the hospital machine with AVAPS settings and said she did well and was able to sleep. DATA: 07/31/25: Echo Summary 1. Technically suboptimal study due to poor sonographic images. 2. Definity contrast administered improved wall motion interpretation. 3. Left ventricular chamber dimension is moderately enlarged. 4. Left ventricular systolic function is moderately globally reduced, estimated at 40-45. 5. The left ventricular diastolic function is grade I diastolic dysfunction. 6. No pulmonary hypertension, estimated pulmonary arterial systolic pressure is 19 mmHg. Right Ventricle Right ventricular chamber dimension is normal. Right ventricular systolic function is normal. Left Atria Left atrial chamber dimension is normal. Right Atria Right atrial chamber dimension is normal. 07/31/25: EXAMINATION:CT diagnostic chest wo con INDICATION: Pneumonia COPD COMPARISON: None. FINDINGS: Patchy consolidative changes are developing in the medial segment of the right middle lobe. Mild scattered fibrotic and atelectatic appearing changes throughout the lower lobes bilaterally. Moderately severe centrilobular emphysematous changes especially in the upper lobes. No new nodules or masses seen. Heart and great vessels stable in size with no cardiomegaly or large pericardial effusion/bulky lymphadenopathy. Coronary artery calcification and/or stenting. 50% compression deformity of T6 similar to the previous exam. IMPRESSION: Small area of consolidation in the medial segment of the right middle lobe consistent with early pneumonia. Finding should be followed radiographically until clear. 01/29/25 - Overnight oximetry on noninvasive ventilator with 4 L bleed in. Recording duration 7 hours and 53 minutes. Basal saturation 97.5. Low saturation 94%. High saturation 99%. Time with saturation less than or equal to 88% was 0 minutes. Oxygen desaturation 0. 4 L provides adequate oxygenation. 11/06/23 - CXR - The lungs are clear, without evidence of focal consolidation or pleural effusion. Suspected COPD. Cardiomediastinal silhouette is within normal limits. Bones and soft tissues are unremarkable. 07/03/2023: Home O2 assessment: Rest room air saturations 83%. Rest nasal cannula 2 L saturation 87%. Rest nasal cannula 3 L saturation 88%. Rest nasal cannula 4 L saturation 91%. Exercise nasal cannula 4 L, saturations 88%. Exercise nasal cannula 5 L saturation 90%. Patient requires 4 L at rest and 5 with activity. 07/02/24: Patient wore her home noninvasive ventilator in the hospital, with an AVAPS-AE mode with a rate of 12, tidal volume 400, EPAP minimum 5, maximum EPAP 10, minimal pressure support 10, maximal pressure support 15, rise time of 3 with 4 L bleed in and did well.? Patient had an overnight oximetry with recording time of 7 hours and 31 minutes, average saturation 92%.? Low saturation 88%.? Time with saturation less than or equal to 88% was 1 minute, oxygen desaturation index 0.4.? Patient had a blood gas prior to removal of this machine with pH of 7.44/48/70.? These settings provide adequate oxygenation and ventilation.? 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 06/30/2023: EXAMINATION: CTA chest PE protocol ?INDICATION: Hypoxia. ?COMPARISON: Chest CT 08/12/2022 ?FINDINGS: There is severe emphysema. There is mild atelectasis bilaterally, worst in the lower lobes. No pleural effusion. The heart size is normal. There are coronary artery calcifications. No pericardial effusion. There is no pulmonary embolus. There is a gallstone in the gallbladder which is normal in size. There is a ventral hernia containing colon. There is kyphosis and moderate spondylosis of thoracic spine. There is a chronic burst fracture of T6. There is a chronic compression fracture of L1. ?IMPRESSION: ?1. No pulmonary embolus. ?2. Severe emphysema. ?11/28/2022 PFTs ??The test was performed and results interpreted in accordance with the 2019 and 2005 ATS/ERS Task Force guidelines respectively using the Global Lung Function Initiative-2012 reference equations. Patient demonstrated good effort and cooperation. Reproducibility criteria were met. The quality of the pre bronchodilator spirometry maneuver was Grade A and post bronchodilator spirometry maneuver was Grade A. ??Findings: ??Spirometry: ? There is decreased maximal expiratory airflow at all lung volumes with concave expiratory flow tracing.? The contour the inspiratory flow tracing is normal.? pre bronchodilator FVC is 1.39 L, 48% predicted.? The pre bronchodilator FEV1 is 0.59 L, 26% predicted.? The pre bronchodilator FEV1:? FVC ratio is 42%.? The post bronchodilator FVC is 1.50 L,? representing an 8% increase.? The post bronchodilator FEV1 is 0.63 L, representing a 6% increase.? The post bronchodilator FEV1:? FVC ratio is 42%.? ??Plethysmography:? The total lung capacity is 4.40 L, 85% predicted.? The functional residual capacity is 3.27 L, 110% predicted.? The residual volume is 3.01 L, 133% predicted.? ??Diffusing capacity:? The diffusing capacity unadjusted for hemoglobin and carboxyhemoglobin is 5.2, 25% predicted.? The diffusing capacity adjusted for alveolar volume is 2.58, 61% predicted. ??When compared to PFTs from [facility] on 06/20/2019 the post bronchodilator FVC has decreased from 2.10 L to 1.50 L.? The post bronchodilator FEV1 has decreased from 0.80 L to 0.63 L.? The total lung capacity is unchanged from 4.88 L to 4.40 L.? The functional residual capacity is unchanged from 3.71 L to 3.27 L.? The residual volume is unchanged from 3.24 L to 3.01 L.? The diffusing capacity unadjusted from hemoglobin and carboxyhemoglobin is unchanged from 5.6 to 5.2.? The diffusing capacity adjusted for alveolar volume is unchanged from 2.39 to 2.58. ??Impression:?There is a very severe obstructive abnormality without significant improvement after inhaling a single dose of albuterol.?The increase in residual volume is consistent with?air trapping?from an obstructive abnormality.? The diffusing capacity unadjusted for hemoglobin and carboxyhemoglobin is severely decreased and?remains mildly decreased when adjusted for alveolar volume. ??When compared to previous PFTs there has been a?greater than anticipated time dependent decrease in the FVC and FEV1?with no significant change in the total lung capacity, functional residual capacity, residual volume or DLCO. ?11/28/2022? ABG on 2 L nasal cannula pulse delivery: ? PH 7.42 / 56/47. ? Saturations were 83%.? Checked manually saturations were 84%. ?11/28/2022 ? Home O2 assessment:? Rest room air saturation 84%.? Rest nasal cannula 1 L saturation 86%, rest nasal cannula 2 L saturation 92%.? Exercise 2 L nasal cannula saturation 90%. ? These measurements were made with continuous flow nasal cannula.? I spoke with the medical delivery technician and they attempted to place the patient on 4 L pulse delivery nasal cannula and her saturations remained less than 88%.??The patient requires 2 L oxygen at rest and with exercise at continuous flow. ??? Collectively these results demonstrate progression of the patient's very severe obstructive abnormality consistent with GOLD grade 4 COPD? with chronic hypercarbic respiratory failure from her COPD and hypoxemic respiratory failure from her COPD. ? Patient has chronic hypercarbic respiratory failure from her COPD and would benefit from noninvasive ventilation. ? She would benefit from noninvasive ventilation to prevent further deterioration and subsequent hospitalizations. ? Previously the patient had been on BiPAP on 05/05/2022 and she said that she could not tolerate these pressures and she had claustrophobia.?? I talked to the patient about this and she is also had a stroke with decreased mobility of her right upper extremity and is unsure if she will be able to? initiate her machine and mask at home although she is willing to try. ??? I will initiate home noninvasive ventilation with an AVAPS-AE mode? with a set rate of auto, tidal volume 500, minimal inspiratory pressure 5, maximal expiratory pressure 15, minimal inspiratory pressure 6, maximal inspiratory pressure 25,? rise time 1.0 sec, and 2 L bleed in. These settings can be adjusted for patient comfort on initial set up. ??? The pulmonary function test coordinator has reached out to [facility] to see if this can be coordinated through them and the outpatient clinic will coordinate our efforts with the PFT lab. ?? 08/12/2022 EXAMINATION: CT diagnostic chest wo con ???INDICATION: SOB for 2 days. COPD. History of lung cancer. ???COMPARISON: 07/17/2022 portable AP chest ???02/28/2019 CTA chest ???FINDINGS: Heart size is within normal range. No pericardial or pleural effusion. ???There is extensive thoracic aortic and some great vessel calcifications in addition to prominent coronary artery calcifications. No thoracic aortic aneurysm. ???Normal size and attenuation of the thyroid gland. No hilar or mediastinal mass lesion or lymphadenopathy. ???Moderate to moderately severe emphysema and bilateral pulmonary hyperinflation. ???There is a chronic linear scarring in the right lower lobe and left lower lobe. There is another linear scar or discoid atelectasis in the right lower lobe since 02/28/2019. ???There is minimal atelectasis at the dependent lung bases, both lower lobes. ???Included portions of the adrenal glands are unremarkable. ???One or more ventral abdominal wall hernias. ???Multiple old healed right rib fractures. ???Moderate anterior wedge compression fracture deformity of T6. ???Degenerative disc disease of the lower cervical spine and degenerative spurring of the thoracic spine. ???No suspicious osteolytic or osteoblastic lesions are noted. ???IMPRESSION:? Moderate to moderately severe emphysema ???Mild discoid atelectasis and/or scarring in the lower lobes ???Minimal bilateral lower lobe dependent atelectasis ???Aortic, great vessel and coronary artery atherosclerosis ???06/05/2022 CXR EXAMINATION: XR chest 2V ?INDICATION: SOB,?COMPARISON: 05/19/2022, 05/07/2022 ?FINDINGS: There are small pleural effusions. There is no pneumothorax. There are minimal airspace opacities of the lung bases. The cardiomediastinal silhouette is normal. There is a chronic compression fracture of T6 without significant change. ?IMPRESSION: ?1. Small pleural effusions with minimal bibasilar airspace opacities, likely atelectasis. ???04/03/2022 ABG on 3 L 7.42/49/111 ???03/10/2022 ABG RA 7.42/50/44 ?06/20/2019:? I have PFT report from [facility]. ???Findings: ???Spirometry:? There is decreased maximal expiratory airflow at all lung volumes with concave expiratory flow tracing.? The contour of the inspiratory flow tracing is normal.? The pre bronchodilator FVC is 1.64 L, 64% predicted.? The pre bronchodilator FEV1 is 0.76 L, 37% predicted.? The pre bronchodilator FEV1:? FVC ratio is 47%.? The post bronchodilator FVC is 2.10 L, representing a 28% increase.? The post bronchodilator FEV1 is 0.80 L, representing a 5% increase.? The post bronchodilator FEV1:? FVC ratio is 38%. ???Plethysmography:? The total lung capacity is 4.88 L, 110% predicted.? The functional residual capacity is 3.71 L, 159% predicted.? The residual volume is 3.24 L, 185% predicted. ???Diffusing capacity:? The diffusing capacity unadjusted for hemoglobin and carboxyhemoglobin is 5.6, 28% predicted.? The diffusing capacity adjusted for alveolar volume is 2.39, 66% predicted. ?My?Impression: There is a severe obstructive abnormality with significant improvement after inhaling a single dose of albuterol. The increase in residual volume is consistent with air trapping from an obstructive abnormality.? Hyperinflation is present as demonstrated by the increase in functional residual capacity and is consistent with an obstructive abnormality. The diffusing capacity unadjusted for hemoglobin and carboxyhemoglobin is severely decreased and is mildly decreased when adjusted for alveolar volume. ???When compared to the spirometry on 03/03/2019 the pre bronchodilator FVC has increased from 1.05 L to 1.64 L. The pre bronchodilator FEV1 has increased from 0.47 L to 0.76 L. ?03/03/2019 I have an echocardiogram report from [facility]: ???Summary:? The calculated ejection fraction is 52.? Left ventricular diastolic function is abnormal, grade 1 impaired relaxation.? Right ventricular systolic function is normal.? No evidence of pericardial effusion.? A trace of tricuspid regurgitation normal RV size and function normal right atrial size. ???01/09/2019 echocardiogram report from [facility].? Summary:? The left ventricle size is normal.? The left ventricular systolic function is lower limits of normal with an estimated LV EF of 50-55%.? Left ventricular diastolic function is abnormal grade 1, impaired relaxation, right ventricular systolic pressure is 37, mild aortic valve sclerosis ?03/03/2019:? I have a spirometry report from [facility]. ??Spirometry:? There is decreased maximal expiratory airflow at all lung volumes with concave expiratory flow tracing.? The contour the inspiratory flow tracing is normal.? The FVC is 1.05 L, 36% predicted.? The FEV1 is 0.47 L, 20% predicted.? The FEV1:? FVC ratio is 45%. ???My impression:? There is a very severe obstructive abnormality. ?? ?01/09/2019:? CT angiogram chest report from [facility].? Impression: no CT evidence of pulmonary embolism.? Mosaic perfusion in the upper and lower lobes may represent small airways disease or peripheral airways disease or sequela of radiation therapy if applicable.? The left hilar and suprahilar mass seen in 2012 is no longer present. ? 09/22/2018:? I have a report CT scan of the chest from [facility] demonstrating no pulmonary embolism, mild to moderate emphysema small amount of post infectious residual, no lymphadenopathy no pleural effusions, no pericardial effusion, no pneumothorax. ?? 01/09/2019: ? Report from [facility] ???EXAMINATION:CTA, CHEST FOR PE ???CLINICAL INDICATION: ???68-year-old inpatient with increasing SOB bilateral hand??and leg swelling over the past 6 weeks.? Given history of CHF, COPD,??coronary artery disease and lung carcinoma.??COMPARISON:??CTA chest abdomen pelvis with contrast 01/28/2013 and FDG PET/CT 02/02/2013 ?FINDINGS: ?The study was technically adequate??No intraluminal filling defects, wall thickening, or thrombus is present in??the pulmonary arterial vascular tree to suggest pulmonary embolus ?Although there is no given history of whether this patient had radiation or??chemotherapy the large left hilar and suprahilar mass seen in 2013 is no??longer present.? Mild thickening within the left hilar region of the??previously seen mass.? No recurrent hilar mass or mediastinal or hilar??lymphadenopathy.? Subtle mosaic perfusion of the upper lobes and dependent??lower lobes may represent small airway disease or peripheral airway disease ???or could be sequela of radiation therapy.? Additionally, small bibasilar??effusions and bilateral enhancing lower lobe atelectasis probably??compressive atelectasis.? The mosaic perfusion in the lower lobes has??superimposed interlobar septal thickening and groundglass opacities which??is suggestive of development of pulmonary edema. ???Mild cardiomegaly due to biventricular prominence.? No pericardial??effusion.? There is moderate hepatic venous reflux suggestive of a elevated??right heart pressures..? Normal caliber thoracic aorta.? No evidence of??aortic dissection. ???Included portions of the liver is homogeneous in density.? No definite??enhancing hepatic mass in the upper liver.? The spleen and adrenal glands??and tail of pancreas are unremarkable.? Stable wide neck supra umbilical?epigastric region ventral wall hernia containing nonentrapped nonobstructed?appearing loops of transverse colon unchanged since 2013.? This is only?partially included on this study. ???Bone window imaging fails to demonstrate pathologic bony abnormality.???Interval wedge compression deformity of T6. ?IMPRESSION: ???1. No CT evidence of pulmonary embolus ???2.? Mosaic perfusion in the upper and lower lobes may represent small ???airway disease or peripheral airway disease or sequela of radiation therapy?if applicable. ???3.? Concomitant findings of definite pulmonary edema bibasilar effusions??lower lobe atelectasis may represent CHF; there is always a possibility??this could represent malignant pleural effusions ???4.? Although there is no given history of bladder on this patient has?undergone radiation therapy or chemotherapy the left hilar and suprahilar?mass seen in 2013 is no longer present. ???5.? Wedge compression deformity T6 Since 2013 Review of Systems Constitutional: Constitutional: Reports no additional constitutional complaints Eyes: Eyes: Reports no additional eye complaints ENT: Reports system reviewed and no additional complaints, except as documented Cardiovascular: Cardiovascular: Reports no additional cardiovascular complaints Respiratory: Respiratory: Reports no additional respiratory complaints Gastrointestinal: Gastrointestinal: Reports no additional gastrointestinal complaints Musculoskeletal: Musculoskeletal: Reports no additional musculoskeletal complaints Neurologic: Reports system reviewed and no additional complaints, except as documented Psychiatric: Psychiatric: Reports no additional psychiatric complaints Endocrine: Endocrine: Reports no additional endocrine complaints Hematologic/Lymphatic: Hematologic/Lymphatic: Reports no additional hematologic/lymphatic complaints Allergic/Immunologic: Allergic/Immunologic: Reports no additional allergic/immunologic complaints Exam Const: General: cooperative, comfortable and no acute distress Orientation/consciousness: oriented to person, oriented to place and oriented to time HENMT: Head: normal to inspection Ears: hearing grossly normal bilaterally Eyes: General: appearance normal, both eyes and all related structures Neck: Neck: normal visual inspection Chest: Chest palpation & inspection: normal inspection of the chest Resp: Effort & Inspection: normal respiratory effort and able to speak in complete sentences Auscultation: no crackles, no rales, no rhonchi, no wheezes and diminished lung sounds Cardio: Jugular venous distension: no JVD GI: Inspection: normal to inspection Skin: General skin exam: normal color Neuro: General: oriented to person, oriented to place and oriented to time Extrem: General: normal to inspection and edema Other: Positive bilateral lower extremity edema. Psych: Appearance: grossly normal Objective Data Vital Signs Vital Signs: Vital Signs - 24 hr 08/02/25 10:00 08/02/25 12:00 08/02/25 12:00 Temperature 36.8 C Pulse Rate 85 77 Respiratory Rate 20 Blood Pressure 130/63 Pulse Oximetry 99 95 Oxygen Delivery Nasal Cannula Oxygen Flow Rate 1 08/02/25 12:00 08/02/25 13:41 08/02/25 13:48 Temperature Pulse Rate 81 81 79 Respiratory Rate 20 20 Blood Pressure Pulse Oximetry Oxygen Delivery Oxygen Flow Rate 08/02/25 14:25 08/02/25 16:00 08/02/25 16:00 Temperature 36.5 C 36.5 C Pulse Rate 80 78 80 Respiratory Rate 16 16 Blood Pressure 119/57 L 121/58 L Pulse Oximetry 92 93 Oxygen Delivery Oxygen Flow Rate 08/02/25 19:26 08/02/25 19:36 08/02/25 19:36 Temperature Pulse Rate 79 82 Respiratory Rate 18 18 Blood Pressure Pulse Oximetry 92 Oxygen Delivery Nasal Cannula Oxygen Flow Rate 0.5 08/02/25 20:00 08/02/25 20:00 08/02/25 20:49 Temperature 36.2 C L Pulse Rate 86 87 Respiratory Rate 20 Blood Pressure 122/55 L Pulse Oximetry 91 Oxygen Delivery Nasal Cannula Oxygen Flow Rate 0.5 08/02/25 22:35 08/03/25 00:00 08/03/25 02:55 Temperature Pulse Rate 101 H 61 58 L Respiratory Rate 20 19 Blood Pressure Pulse Oximetry 93 99 Oxygen Delivery Oxygen Flow Rate 08/03/25 02:55 08/03/25 04:00 08/03/25 04:35 Temperature 36.4 C Pulse Rate 58 L 64 73 Respiratory Rate 19 20 Blood Pressure 126/61 Pulse Oximetry 94 Oxygen Delivery Oxygen Flow Rate 08/03/25 08:00 08/03/25 08:00 08/03/25 08:56 Temperature Pulse Rate 75 Respiratory Rate Blood Pressure Pulse Oximetry 90 94 Oxygen Delivery Nasal Cannula Nasal Cannula Oxygen Flow Rate 1 1 08/03/25 08:58 08/03/25 09:05 Temperature Pulse Rate 82 80 Respiratory Rate 18 18 Blood Pressure Pulse Oximetry Oxygen Delivery Oxygen Flow Rate Intake/Output Intake/Output: Intake & Output 07/31/25 08/01/25 08/02/25 08/03/25 23:59 23:59 23:59 23:59 Intake Total 1405 1122 1180 540 Output Total 650 820 410 650 Balance 755 302 770 -110 Meds/Results Medications: Active Medications Generic Name Dose Route Start Last Admin Trade Name Freq PRN Reason Stop Dose Admin Acetaminophen 650 mg 07/30/25 18:01 08/02/25 00:09 Acetaminophen 325 Mg Tablet PO 650 mg Q6H PRN Administration Mild Pain (1-3) or Fever Acetylcysteine 200 mg 08/02/25 14:00 08/03/25 08:54 Acetylcysteine 20% Inhal Soln 800 Mg/4 Ml Vial INHALATION 200 mg Q6HRT JESSIE Administration Albuterol/Ipratropium 3 ml 07/31/25 14:00 08/03/25 08:54 Ipratropium 0.5 Mg/Albuterol Sulfate 2.5 Mg (Base) Ampul.Neb 3 Ml INHALATION 3 ml Q6HRT JESSIE Administration Alprazolam 0.5 mg 07/30/25 23:58 08/02/25 02:15 Alprazolam (*Crx) 0.5 Mg Tablet PO 0.5 mg Q8H PRN Administration Anxiety Amoxicillin/Clavulanate Potassium 1 tablet 08/03/25 21:00 Amoxicillin/Clavulanate K 875-125 Mg Tab PO 08/06/25 20:59 Q12HR JESSIE Aspirin 81 mg 07/31/25 09:00 08/03/25 08:13 Aspirin 81 Mg Enteric Tablet PO 81 mg DAILY JESSIE Administration Atorvastatin Calcium 40 mg 07/30/25 21:00 08/02/25 22:07 Atorvastatin 40 Mg Tablet PO 40 mg HS JESSIE Administration Enoxaparin Sodium 40 mg 07/30/25 21:00 08/02/25 22:07 Enoxaparin 40 Mg/0.4 Ml Syringe SUB-Q 40 mg HS JESSIE Administration Escitalopram Oxalate 10 mg 07/31/25 09:00 08/03/25 08:13 Escitalopram Oxalate 10 Mg Tablet PO 10 mg DAILY JESSIE Administration Furosemide 40 mg 07/31/25 09:00 08/03/25 08:14 Furosemide 40 Mg Tablet PO 40 mg BID JESSIE Administration Gabapentin 300 mg 07/31/25 09:00 08/03/25 08:14 Gabapentin 300 Mg Capsule PO 300 mg TID JESSIE Administration Guaifenesin 1,200 mg 08/01/25 21:00 08/03/25 08:14 Guaifenesin 12 Hr 600 Mg Tabcr PO 1,200 mg Q12HR JESSIE Administration Azithromycin 500 mg/ Sodium 250 mls @ 250 mls/hr 07/30/25 19:00 08/02/25 21:00 Chloride IVPB 08/03/25 19:59 Infused Q24H JESSIE Infusion Levetiracetam 250 mg 07/30/25 21:00 08/03/25 08:14 Levetiracetam 250 Mg Tablet PO 250 mg Q12HR JESSIE Administration Loratadine 10 mg 07/30/25 21:00 08/02/25 22:07 Loratadine 10 Mg Tablet PO 10 mg HS JESSIE Administration Melatonin 5 mg 07/30/25 18:38 08/02/25 22:07 Melatonin 5 Mg Tablet PO 5 mg HS PRN Administration Insomnia Pantoprazole Sodium 40 mg 07/31/25 09:00 08/03/25 08:14 Pantoprazole 40 Mg Tablet PO 40 mg QAM JESSIE Administration Potassium Chloride 20 meq 07/31/25 09:00 08/03/25 09:09 Potassium Chloride 20 Meq Er Tablet PO 20 meq BID JESSIE Administration Prednisone 40 mg 07/31/25 11:50 08/03/25 08:13 Prednisone 20 Mg Tablet PO 40 mg DAILY@0800 JESSIE Administration Ropinirole HCl 1 mg 07/31/25 09:00 08/03/25 04:16 Ropinirole Hcl 1 Mg Tablet PO 1 mg TID JESSIE Administration Spironolactone 25 mg 07/31/25 09:00 08/03/25 08:14 Spironolactone 25 Mg Tablet PO 25 mg DAILY JESSIE Administration Radiology Results: ITS Impressions Chest X-Ray 07/30/25 15:01 Impression: Early bilateral pneumonia Chest CT 07/31/25 14:05 IMPRESSION: Small area of consolidation in the medial segment of the right middle lobe consistent with early pneumonia. Finding should be followed radiographically until clear. Venous Doppler Study 08/01/25 08:07 Impression: Negative for DVT. Labs Labs: Laboratory Results - last 24 hr 08/03/25 07:31 WBC 7.7 RBC 3.90 L Hgb 11.2 L Hct 37.1 MCV 95.1 MCH 28.7 MCHC 30.2 L RDW 14.7 H Plt Count 316 MPV 9.8 Sodium 141 Potassium 3.8 Chloride 100 Carbon Dioxide 37 H Anion Gap 4 BUN 31 H D Creatinine 1.24 H Estim Creat Clear Calc 32 Estimated GFR 42 L Glucose 94 Calcium 8.3 L Total Bilirubin 0.4 AST 29 ALT 31 Alkaline Phosphatase 60 NT-Pro-B Natriuret Pep 1150 H Total Protein 6.7 Albumin 3.8
--- NOTE | 2025-08-03 12:19 | P.PNIM_ITS ---
Progress Note: A&P Assessment and Plan (1) Acute exacerbation of chronic obstructive pulmonary disease: Code(s): J44.1 - Chronic obstructive pulmonary disease with (acute) exacerbation Status: Acute Plan Acute COPD exacerbation Acute on chronic hypercapnic and hypoxic respiratory failure Right middle lobe pneumonia -patient has longstanding COPD follows Dr. Nava -she has gold grade 4, history of alpha-1 antitrypsin genotype mm -she has air trapping with COPD not a candidate for zephyr valve or surgery -Discussed with Dr. Nava, plan for AVAPS mode on noninvasive ventilator. -lower extremity ultrasound negative for DVT -pCO2 66.4, P is stable 7.42, likely could hypercarbia is chronic -PT OT consulted for weakness -steroids: Changes Solu-Medrol to prednisone 40 mg daily -nebs: duoneb QID -guaifenesin for cough -patient developing infiltrate in the right middle lobe seen on CT scan -continue ceftriaxone and azithromycin -at home on Advair CHF -08/03:BNP 1150, improving -cardiology consulted -IV Lasix 40 b.i.d. -monitor renal function during diuresis -echocardiogram shows 40-45% left ventricular diastolic dysfunction -EKG sinus rhythm -comorbid condition COPD -currently on spironolactone and Lasix -beta-cody can be added as outpatient after discussing with Cardiology -Daily weights. -fluid restriction -Strict I&O's -elevate/Samir wrap legs if needed -atorvastatin 40 mg p.o. q.h.s. -Optimize blood pressure less than 130/80. -Fall risk assessment. Chronic conditions -left lower extremity hematoma: Has been lanced and stitches placed on 07/18, we will remove sutures -heart failure: On Aldactone, Lasix with potassium supplement -RLS: requip -GERD: PPI -insomnia: melatonin -allergies: claritin -siezure disorder: keppra BID -peripheral neuropathy: Gabapentin -depression: Lexapro, p.r.n. Xanax -hyperlipidemia: Aspirin, statin -supplements: On ferrous sulfate, vitamin-D 2, multivitamin Diet: Heart healthy DVT prophylaxis: SCDs, Lovenox. Patient had recent hematoma on her leg which is resolved, will monitor closely for any signs of bleeding Code status: DNR Disposition: Home in 2-3 days Subjective Date/time seen: 08/03/25 12:19 Interval history: WBC and creatinine improving. Will continue Lasix 40 mg p.o. b.i.d.. Patient is currently on Augmentin and azithromycin. Blood culture negative. Review of Systems Review of Systems: 10 point ROS complete, negative other th an what is specified in HPI. All systems reviewed & are unremarkable except as noted in HPI and below Exam Narrative: - GENERAL: Pleasant elderly woman in no acute distress. - EYES: EOMI. Anicteric. - HENT: Moist mucous membranes. - LUNGS: End-expiratory wheezing bilate rally throughout, no rhonchi - CARDIOVASCULAR: Regular rate and rhyth m. - ABDOMEN: Soft, non-tender and non-dist ended. - EXTREMITIES: 2+ lower extremity edema , peripheral pulses intact, wound on left lower extremity eschar with stitches in place - NEUROLOGIC: No focal neurological defi cits. - PSYCHIATRIC: Awake, Alert and oriented x 3. Appropriate mood and affect. - SKIN: No rashes or lesions. Objective Data Vital Signs Vital Signs: Vital Signs - 24 hr 08/02/25 13:41 08/02/25 13:48 08/02/25 14:25 Temperature 97.7 F Pulse Rate 81 79 80 Respiratory Rate 20 20 16 Blood Pressure 119/57 L Pulse Oximetry 92 Oxygen Delivery Oxygen Flow Rate 08/02/25 16:00 08/02/25 16:00 08/02/25 19:26 Temperature 97.7 F Pulse Rate 78 80 79 Respiratory Rate 16 18 Blood Pressure 121/58 L Pulse Oximetry 93 Oxygen Delivery Oxygen Flow Rate 08/02/25 19:36 08/02/25 19:36 08/02/25 20:00 Temperature Pulse Rate 82 86 Respiratory Rate 18 Blood Pressure Pulse Oximetry 92 Oxygen Delivery Nasal Cannula Oxygen Flow Rate 0.5 08/02/25 20:00 08/02/25 20:49 08/02/25 22:35 Temperature 97.2 F L Pulse Rate 87 101 H Respiratory Rate 20 20 Blood Pressure 122/55 L Pulse Oximetry 91 93 Oxygen Delivery Nasal Cannula Oxygen Flow Rate 0.5 08/03/25 00:00 08/03/25 02:55 08/03/25 02:55 Temperature Pulse Rate 61 58 L 58 L Respiratory Rate 19 19 Blood Pressure Pulse Oximetry 99 Oxygen Delivery Oxygen Flow Rate 08/03/25 04:00 08/03/25 04:35 08/03/25 08:00 Temperature 97.6 F Pulse Rate 64 73 Respiratory Rate 20 Blood Pressure 126/61 Pulse Oximetry 94 90 Oxygen Delivery Nasal Cannula Oxygen Flow Rate 1 08/03/25 08:00 08/03/25 08:56 08/03/25 08:58 Temperature Pulse Rate 75 82 Respiratory Rate 18 Blood Pressure Pulse Oximetry 94 Oxygen Delivery Nasal Cannula Oxygen Flow Rate 1 08/03/25 09:05 Temperature Pulse Rate 80 Respiratory Rate 18 Blood Pressure Pulse Oximetry Oxygen Delivery Oxygen Flow Rate Intake/Output Intake/Output: Intake & Output 07/31/25 08/01/25 08/02/25 08/03/25 23:59 23:59 23:59 23:59 Intake Total 1405 1122 1180 540 Output Total 650 820 410 650 Balance 755 302 770 -110 Meds/Results Medications: Active Medications Generic Name Dose Route Start Last Admin Trade Name Freq PRN Reason Stop Dose Admin Acetaminophen 650 mg 07/30/25 18:01 08/02/25 00:09 Acetaminophen 325 Mg Tablet PO 650 mg Q6H PRN Administration Mild Pain (1-3) or Fever Acetylcysteine 200 mg 08/02/25 14:00 08/03/25 08:54 Acetylcysteine 20% Inhal Soln 800 Mg/4 Ml Vial INHALATION 200 mg Q6HRT JESSIE Administration Albuterol/Ipratropium 3 ml 07/31/25 14:00 08/03/25 08:54 Ipratropium 0.5 Mg/Albuterol Sulfate 2.5 Mg (Base) Ampul.Neb 3 Ml INHALATION 3 ml Q6HRT JESSIE Administration Alprazolam 0.5 mg 07/30/25 23:58 08/02/25 02:15 Alprazolam (*Crx) 0.5 Mg Tablet PO 0.5 mg Q8H PRN Administration Anxiety Amoxicillin/Clavulanate Potassium 1 tablet 08/03/25 21:00 Amoxicillin/Clavulanate K 875-125 Mg Tab PO 08/06/25 20:59 Q12HR JESSIE Aspirin 81 mg 07/31/25 09:00 08/03/25 08:13 Aspirin 81 Mg Enteric Tablet PO 81 mg DAILY JESSIE Administration Atorvastatin Calcium 40 mg 07/30/25 21:00 08/02/25 22:07 Atorvastatin 40 Mg Tablet PO 40 mg HS JESSIE Administration Enoxaparin Sodium 40 mg 07/30/25 21:00 08/02/25 22:07 Enoxaparin 40 Mg/0.4 Ml Syringe SUB-Q 40 mg HS JESSIE Administration Escitalopram Oxalate 10 mg 07/31/25 09:00 08/03/25 08:13 Escitalopram Oxalate 10 Mg Tablet PO 10 mg DAILY JESSIE Administration Furosemide 40 mg 07/31/25 09:00 08/03/25 08:14 Furosemide 40 Mg Tablet PO 40 mg BID JESSIE Administration Gabapentin 300 mg 07/31/25 09:00 08/03/25 08:14 Gabapentin 300 Mg Capsule PO 300 mg TID JESSIE Administration Guaifenesin 1,200 mg 08/01/25 21:00 08/03/25 08:14 Guaifenesin 12 Hr 600 Mg Tabcr PO 1,200 mg Q12HR JESSIE Administration Azithromycin 500 mg/ Sodium 250 mls @ 250 mls/hr 07/30/25 19:00 08/02/25 21:00 Chloride IVPB 08/03/25 19:59 Infused Q24H JESSIE Infusion Levetiracetam 250 mg 07/30/25 21:00 08/03/25 08:14 Levetiracetam 250 Mg Tablet PO 250 mg Q12HR JESSIE Administration Loratadine 10 mg 07/30/25 21:00 08/02/25 22:07 Loratadine 10 Mg Tablet PO 10 mg HS JESSIE Administration Melatonin 5 mg 07/30/25 18:38 08/02/25 22:07 Melatonin 5 Mg Tablet PO 5 mg HS PRN Administration Insomnia Pantoprazole Sodium 40 mg 07/31/25 09:00 08/03/25 08:14 Pantoprazole 40 Mg Tablet PO 40 mg QAM JESSIE Administration Polyethylene Glycol 17 gm 08/03/25 10:44 08/03/25 11:09 Polyethylene Glycol 3350 17 Gm Powd.Pack PO 17 gm QAM JESSIE Administration Potassium Chloride 20 meq 07/31/25 09:00 08/03/25 09:09 Potassium Chloride 20 Meq Er Tablet PO 20 meq BID JESSIE Administration Prednisone 40 mg 07/31/25 11:50 08/03/25 08:13 Prednisone 20 Mg Tablet PO 40 mg DAILY@0800 JESSIE Administration Ropinirole HCl 1 mg 07/31/25 09:00 08/03/25 04:16 Ropinirole Hcl 1 Mg Tablet PO 1 mg TID JESSIE Administration Spironolactone 25 mg 07/31/25 09:00 08/03/25 08:14 Spironolactone 25 Mg Tablet PO 25 mg DAILY JESSIE Administration Radiology Results: ITS Impressions Chest X-Ray 07/30/25 15:01 Impression: Early bilateral pneumonia Chest CT 07/31/25 14:05 IMPRESSION: Small area of consolidation in the medial segment of the right middle lobe consistent with early pneumonia. Finding should be followed radiographically until clear. Venous Doppler Study 08/01/25 08:07 Impression: Negative for DVT. Labs Labs: Laboratory Results - last 24 hr 08/03/25 07:31 WBC 7.7 RBC 3.90 L Hgb 11.2 L Hct 37.1 MCV 95.1 MCH 28.7 MCHC 30.2 L RDW 14.7 H Plt Count 316 MPV 9.8 Sodium 141 Potassium 3.8 Chloride 100 Carbon Dioxide 37 H Anion Gap 4 BUN 31 H D Creatinine 1.24 H Estim Creat Clear Calc 32 Estimated GFR 42 L Glucose 94 Calcium 8.3 L Total Bilirubin 0.4 AST 29 ALT 31 Alkaline Phosphatase 60 NT-Pro-B Natriuret Pep 1150 H Total Protein 6.7 Albumin 3.8 Quality VTE Prophylaxis VTE prophylaxis: pharmacologic ordered
[2025-08-03] MEDS: AZITHROMYCIN IV 500 MG in SODIUM CHLORIDE 0.9% IV 250 ML IVPB (18:01)
[2025-08-03] MEDS: ATORVASTATIN 40 MG TABLET PO (20:48)
[2025-08-03] MEDS: LORATADINE 10 MG TABLET PO (20:48)
[2025-08-03] MEDS: ENOXAPARIN 40 MG/0.4 ML SYRINGE SUB-Q (20:51)
[2025-08-03] MEDS: ALPRAZolam (*CRX) 0.5 MG TABLET PO (23:28)
[2025-08-04] VITALS (10 sets, daily range): BP systolic 144; BP diastolic 68; PULSE 64–677; RESP 18–20; TEMP 36.3; O2SAT 88–96
--- NOTE | 2025-08-04 02:21 | PCRCNOTE ---
Patient did not receive 0200 updraft treatment due to being on an overnight oximetry study.
[2025-08-04 04:05] LABS: Alveolar/Arterial O2 Gradient 82.0 mmHg; Carboxyhemoglobin 0.4 % THb (0-2.0); Fractional Inspired Oxygen 28 %; HCO3 ABG 30.5 mEq/l (22.0-26.0); Methemoglobin ABG 0.1 %THb (0-1.5); Oxygen Content ABG 15.3 %vol (16.0-22.0); Oxygen Saturation ABG 90.1 % (95.0-100.0); PCO2 ABG 50.1 mmHg (35.0-45.0); PO2 ABG 58.5 mmHg (80.0-100.0); PO2 FiO2 Ratio Arterial Blood 2.09 %; Reduced Hemoglobin 8.6 %THb (0-5.0)
[2025-08-04 04:06] LABS: Site Drawn RIGHT BRACHIAL
[2025-08-04 04:07] LABS: Liters per Minute 2.0 LPM; Non-Invasive Vent Rate 14 /MIN
[2025-08-04 04:08] LABS: Non-Invasive Expiratory Pressure 7 CMH2O
[2025-08-04 05:50] LABS: Potassium 4.1 mmol/L (3.4-5.0)
[2025-08-04] MEDS: ACETAMINOPHEN 325 MG TABLET 650 MG PO (05:52)
[2025-08-04] MEDS: ASPIRIN 81 MG ENTERIC TABLET PO (08:53)
[2025-08-04] MEDS: SPIRONOLACTONE 25 MG TABLET PO (08:53)
[2025-08-04] MEDS: FUROSEMIDE 40 MG TABLET PO (08:53)
[2025-08-04] MEDS: GABAPENTIN 300 MG CAPSULE PO (08:53)
[2025-08-04] MEDS: ESCITALOPRAM OXALATE 10 MG TABLET PO (08:53)
[2025-08-04] MEDS: POTASSIUM CHLORIDE 20 MEQ ER TABLET PO (08:54)
[2025-08-04] MEDS: PANTOPRAZOLE 40 MG TABLET PO (08:54)
[2025-08-04] MEDS: guaiFENesin 12 HR 600 MG TABCR 1200 MG PO (08:54)
--- NOTE | 2025-08-04 09:31 | PCRCNOTE ---
went to room twice and pt was not available for treatment.
[2025-08-04 09:45] LABS: Hematocrit 35.5 % (37.0-47.0); Hemoglobin 10.5 g/dL (12.0-15.0); Mean Corpuscular HGB Conc 29.6 g/dl (32-36); Mean Corpuscular Hemoglobin 28.5 pg (26-34); Mean Corpuscular Volume 96.2 fl (80-100); Platelet Count Result 309 k/mm3 (150-375); Red Blood Count 3.69 M/mm3 (4.2-5.4); White Blood Count 8.0 K/mm3 (4.5-10.0)
[2025-08-04 09:48] LABS: Alanine Aminotransferase 28 U/L (6-35); Albumin Level 3.3 g/dL (3.5-5.1); Alkaline Phosphatase 60 U/L (38-126); Anion Gap 4 mmol/L (4-12); Aspartate Amino Transferase 29 U/L (14-36); Bilirubin,Total 0.4 mg/dL (0.2-1.3); Blood Urea Nitrogen 29 mg/dL (7-17); Calcium 8.1 mg/dL (8.4-10.2); Carbon Dioxide 32 mmol/L (22-30); Chloride 103 mmol/L (98-107); Estimated CRCL calculation 36 ml/min; Estimated Glomerular Filt Rate 50; Glucose 78 mg/dL (65-110); Sodium 139 mmol/L (137-145); Total Protein 6.1 g/dL (6.3-8.2)
--- NOTE | 2025-08-04 09:49 | PM.PNPUL ---
Progress Note: A&P Assessment and Plan (1) Chronic obstructive pulmonary disease: Qualifiers: COPD type: COPD with acute exacerbation Qualified Code(s): J44.1 - Chronic obstructive pulmonary disease with (acute) exacerbation Code(s): J44.9 - Chronic obstructive pulmonary disease, unspecified Status: Acute Assessment and Plan: GOLD grade 4 group E COPD Patient with tobacco use (35 PY, quit 2003), Alpha 1 anti trypsin genotype MM. PFTs 11/28/2022 with FEV1 0.59 L, 26%, no bronchodilator response, airtrapping, decreased DLCO when corrected for alveolar volume, severe apical panlobular emphysema on CT scan of the neck from 03/04/2019 and chest on 08/13/2022, hypoxic respiratory failure on 2 L NC rest and activity since 2020, hypercarbic respiratory failure with ABG on 2 L was 7.42/56/47 and started on noninvasive ventilation with 4 L bleed in on 12/2022. Unable to tolerate noninvasive ventilation due to mask discomfort despite multiple mask trials. Wheelchair bound after she had a stroke in 2013 with dyspnea on exertion with wheelchair transfers and pivots Echocardiogram from 06/06/2022 with LVEF 55-60, grade 1 diastolic dysfunction, Normal right ventricular size and function. Normal right atrial size. No tricuspid regurg to measure RVSP. Inpatient COPD exacerbation and pneumonia 09/15/2022. 09/15/2022 white blood cell count 18.8, eosinophils 1.3%=244/uL. 08/22/2022 white blood cell count 10.5, eosinophils 3.1% equals 326/uL. Last inpatient hospitalization 06/29/2023 (rhinoviral infection). Currently the patient has COPD exacerbation precipitated by turning the heat on in her building. She was seen in the emergency department with wheezing, treated with Solu-Medrol, bronchodilators and antibiotics for possible pneumonia. 07/31/2025: Patient wore the noninvasive ventilator with a BiPAP mode overnight. When I enter the room she was on the BiPAP. She told me she was much better. She told me she is breathing back to her normal. She denied fever cough, phlegm or hemoptysis. She is afebrile. White blood cell count 12.5, creatinine 1.11, BNP 1520, procalcitonin 0.1, CRP 2.2, D-dimer 1.27. Patient told me the BiPAP was uncomfortable and I placed her on noninvasive ventilation with the AVAPS mode and adjusted the settings to come for resulting in a rate of 14, tidal volume 500, EPAP 7, minimal inspiratory pressure 8, maximal inspiratory pressure 25, inspiratory time 1.2, rise of 5 which is a slowest and 30% FiO2. She was requesting to come off of the noninvasive ventilator and I placed her on 2 L nasal cannula and she had no respiratory distress with saturations 96%. Plan: Agree with treatment for COPD exacerbation. Patient has improved and I will change her Solu-Medrol to prednisone 40 mg p.o. q.day. she has no wheezing and I will decrease her duo nebulizer frequency from q.4 hours to q.6 hours. I will continued Claritin 10 mg p.o. q.day and guaifenesin 600 mg p.o. b.i.d.. I will send a respiratory pathogen panel, urine for Legionella antigen, urine for pneumococcal antigen and mycoplasma IgM looking for infectious etiologies. I will obtain a CT scan of the chest to assess for pneumonia, CHF, or other concurrent illnesses. Patient with positive D-dimer the low clinical suspicion for PE. she has had leg trauma with swelling of the legs and will obtain lower extremity Dopplers to exclude DVT. Later in the day patient had a CT scan of the chest which demonstrated a new right middle lobe infiltrate and severe apical predominant centrilobular emphysema. Echocardiogram with an LVEF of 40-45%, grade 1 diastolic dysfunction, normal RV size and function. Normal right atrial size. PASP 19. 08/01/2025: Patient tells me she has rest shortness of breath and the same dyspnea on exertion is yesterday. She has coughing but the phlegm is stuck in her throat. Her nasal congestion is the same. Overall she feels slightly worse than yesterday. When I enter the room she was on 2 L nasal cannula saturation 90%. She is afebrile. White blood cell count 12.5, creatinine 1.19, yesterday she was positive 455 mL and is cumulative positive 495 mL since admission. Weight today is 66.4. Plan: Will continue treatment for COPD exacerbation and pneumonia. Continue prednisone 40 mg p.o. q.day, day 3. Continue ceftriaxone and azithromycin, both day 3. Continue DuoNebs q.6 hours. I will increase guaifenesin from 600 to 1200 mg p.o. b.i.d.. I will add a Cornet flutter valve. Continue Claritin 10 Q.day. respiratory pathogen panel, urine for Legionella antigen, urine for pneumococcal antigen, serum mycoplasma IgM pending. 08/02/2025: Patient complains of fatigue. She still has shortness of breath at rest and dyspnea on exertion walking from the bed to the chair. She was in the chair 15 hours yesterday. She denies cough and phlegm and says that her phlegm just gets stuck in her throat. Last night she did not wear the noninvasive ventilator and wore 2 L nasal cannula. When I enter the room she was on 2 L nasal cannula saturations 99%. I decreased from 1 L and her saturations were 97%. White blood cell count 11.2, creatinine 1.44. BNP is unchanged from 1520 on 07/31 to 1580 today. she is using a Cornet flutter valve. Yesterday she was positive 2 mL and cumulative she is positive 1.2 L since admission. Her weight today is 68.7. Lasix is on on hold because of creatinine at 1.44. MRSA nasal swab negative. Respiratory pathogen panel negative, serum mycoplasma IgM negative, urine for Legionella antigen, urine for pneumococcal antigen pending. Plan: Will continue treatment for COPD exacerbation and pneumonia. Continue prednisone 40 mg p.o. q.day, day 4. Continue ceftriaxone and azithromycin, both day 4. Continue DuoNebs q.6 hours, guaifenesin 1200 mg p.o. b.i.d. I will add Mucomyst nebulizers q.6 hours.. Continue flutter valve. Continue Claritin 10 Q.day. 08/03/2025: Patient tells me she is better today. She feels she is breathing 80% back to her normal. Her cough is at her normal with no phlegm. She still gets phlegm stuck in her throat. She has sinus congestion that is controlled with Claritin. She did not do any walking yesterday. When I enter the room she was on 1 L nasal cannula saturation 92%. Yesterday she was 770 mL positive. Cumulative since admission she is 1.7 L positive. Her weight today is 69.4 kg. Plan: Will continue treatment for COPD exacerbation and pneumonia. Continue prednisone 40 mg p.o. q.day, day 5. Continue ceftriaxone and azithromycin, both day 5, DC azithromycin after todays dose. Continue DuoNebs q.6 hours, guaifenesin 1200 mg p.o. b.i.d., Mucomyst nebulizers q.6 hours and flutter valve. Continue Claritin 10 Q.day. If patient remains stable and can correct tolerate her home noninvasive ventilator possible discharge on 08/04/2025. 10/04/2024: Patient states she is breathing back at her baseline. She is feeling better than she has in the last month. Her cough is better with minimal phlegm and no hemoptysis. She ambulated from the bed to the chair. When I enter the room the patient was on 1 L nasal cannula saturations 98%. I placed her on room air and the patient saturations were 92%. White blood cell count 8.0, creatinine 1.08, BNP 1470. She is positive 1.0 L yesterday and cumulative she is positive 2.7 L. Her weight today is 70.5. Patient tells me she is ready to go home. Daughter is in the room and agrees. from a pulmonary perspective patient is ready to be discharged on these pulmonary medications: Augmentin 875-125 b.i.d. x4 days. Advair 230-21 at 2 puffs b.i.d. Incruse Ellipta 62.5 at 1 puff q.day Rescue albuterol 2 puffs q.4 hours p.r.n. shortness of breath or wheezing. Guaifenesin 600 mg p.o. b.i.d. p.r.n. congestion Flutter valve q.2 hours while awake Oxygen at rest and with activity per formal home O2 assessment which I have ordered. When she naps or sleeps: Through [employer], AVAPS AE rate of 14, tidal volume 500, EPAP minimum 5, EPAP maximum 15, pressure support minimum 10, pressure support maximum 25 with 3 L bleed in using an over the mouth under the nose mask. Diuretics per hospitalist team. Currently the patient is on Lasix 40 p.o. b.i.d.. Her weight is 70.5 kg. Follow-up in the Pulmonary Clinic in 3 weeks. 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 Discussed with Dr. Wilkins, will sign off, call with questions. (2) Respiratory failure with hypoxia and hypercapnia: Qualifiers: Chronicity: acute on chronic Qualified Code(s): J96.21 - Acute and chronic respiratory failure with hypoxia; J96.22 - Acute and chronic respiratory failure with hypercapnia Code(s): J96.91 - Respiratory failure, unspecified with hypoxia; J96.92 - Respiratory failure, unspecified with hypercapnia Status: Acute Assessment and Plan: patient with chronic hypoxemic respiratory failure requiring 4 L bleed in at night with her noninvasive ventilator. last home O2 assessment on 07/03/2023 required 4 L at rest and 5 L with activity. Recently the patient tells me she has when wearing 2 L nasal cannula 24-7 and this is increased to 3 L 24-7 over the last week. Regarding her chronic hypercarbic respiratory failure patient had ABG on 11/28/2022 at 7.42/56/47 on 2 L nasal cannula. Patient was set up with noninvasive ventilation with AVAPS AE mode through via [employer] with auto breath rate, tidal volume 525, minimum EPAP 5, maximum EPAP 10, minimum pressure support 10, maximum pressure support 20, AVAPS rate 5, inspiratory time 1.0. Patient tried multiple face mass but never could find a mask that she could tolerate and therefore has been non compliant. 01/29/2025: Overnight oximetry on noninvasive ventilator with 4 L bleed in. Recording duration 7 hours and 53 minutes. Basal saturation 97.5. Low saturation 94%. High saturation 99%. Time with saturation less than or equal to 88% was 0 minutes. Oxygen desaturation 0. 4 L provides adequate oxygenation. Will call the patient to determine if she was wearing her noninvasive ventilator or not. 07/30/2025 patient presents with COPD exacerbation and ABG on 2 L nasal cannula 7.36/77/ 30. This was a mixed sample with chronic compensated respiratory acidosis. Patient was started on BiPAP rate of 12, pressures 14/6 and 40% FiO2 with repeat blood gas 7.42/66/94. She said these pressures were uncomfortable and she could not tolerate the BiPAP. 07/31/2025: I changed her to noninvasive ventilation With the AVAPS mode And adjusting the settings to comfort resulting in rate of 14, tidal volume 500, EPAP 7, minimal inspiratory pressure 8, maximal inspiratory pressure 25, inspiratory time 1.0, rise of 5 which is are slowest and 32% FiO2. plan: The patient can wear AVAPS p.r.n. during the day. She should wear AVAPS mode with the settings above tonight. I will chain an overnight oximetry and an ABG prior to removal on these settings. ABG on noninvasive ventilator will be assessed and changes will be made the night of 08/01/2025. 08/01/25: Patient wore the hospital noninvasive ventilator with the AVAPS mode with 32% FIO2 and said that it hurt her nose. The air delivery was acceptable but she has a previous history of a broken nose and cannot sleep with the mask on and has failed multiple masks as an outpatient. Patient had an ABG prior to removal with pH of 7.41/60/83. Patient had an overnight oximetry on these settings and 32% FiO2 with a recording duration of 8 hours, average saturation 95%. Low saturation 88%. Time with saturation less than or equal to 88% was 0 minutes. Oxygen desaturation index 2.2. Obtained download from [employer] from October 29, 2024 to January 19, 2025.. Patient is on a Vivo 45. Patient is on a AVAPS AE mode with a set rate of 12, target volume 400 mL. EPAP minimum 5. EPAP maximum 10. minimum pressure support 10. Maximum pressure support 15. , rise time of 3. Backup inspiratory time 1.5 seconds. There has been no usage during this time interval. I interpret this download as total noncompliance. Plan: The above AVAPS settings provide adequate oxygenation and ventilation although the patient has a difficult time sleeping with this. I told her she can wear it during the day when she is awake. Tonight if she cannot sleep after 1-2 hours of the AVAPS she should discontinue this so she can get a good night's sleep. 08/02/25: Patient not tolerate the hospital machine because the mask is uncomfortable. Her family supposed to bring in her home machine today. Plan: Given her previous broken nose she cannot tolerate any mask on the bridge of her nose. Although she has failed an over the mouth under the nose mask at home she only tried this for a few days and is willing to try and over the mouth under the nose mask again. We will try to obtain this from the [facility] and if not will try to provide her 1 through our respiratory division. Will change her home noninvasive ventilator settings to AVAPS AE with a rate of 14, tidal volume 500, EPAP minimum 5, EPAP maximum 15, pressure support minimum 10, pressure support maximum 25. 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 She used in over the mouth under the mat nose mask on the hospital machine with AVAPS settings and said she did well and was able to sleep. Plan: Will call [facility] via [employer] to come in and make changes to her AVAPS AE with the settings as above and initiate a over the mouth under the nose mask. will perform overnight oximetry on 2 L bleed in and ABG prior to removal. 08/04/25: Patient wear her home machine with AVAPS AE rate of 14, tidal volume 500, EPAP minimum 5, EPAP maximum 15, pressure support minimum 10, pressure support maximum 25 with 2 L bleed in. Patient was using and over the mouth under the nose mask And said that she slept for 3 hours and feels like this was greatly improved. Patient had an overnight oximetry on these settings with recording duration of 4 hours and 18 minutes, average saturation 93%, low saturation 82%, time with saturation less than or equal to 88% was 31 minutes. Oxygen desaturation index 8.9. Patient had ABG prior to removal with a pH of 7.40/50/59. Plan: current AVAPS AE settings with under the nose over the mouth mask provide adequate ventilation. Overnight oximetry on 32% FiO2 on 08/01 provided adequate oxygenation and I will discharge her on 3 L bleed in at night. (3) Lung cancer: Code(s): C34.90 - Malignant neoplasm of unspecified part of unspecified bronchus or lung Status: Acute Assessment and Plan: patient with a history of tobacco use, 35 pack years, quit 2003. patient with a history of small cell lung cancer in 02/2013 status post chemotherapy and radiation therapy. Is felt that she was cured. Given her continued symptoms and hypoxemic respiratory failure I will obtain a CT scan of the chest. 08/13/2022: Chest CT demonstrated severe apical predominant panlobular emphysema, bilateral lower lobe atelectasis.? No evidence of lung cancer. 01/16/23: Patient has quit for smoking for greater than 15 years and does not qualify for low-dose CT scan. 06/30/23: CT angiogram of the chest shows no pulmonary embolism severe emphysema no concerning nodules or masses. 12/02/23: Quit tobacco in 2003 and does not qualify for low-dose CT scan. 05/18/2024: Patient quit tobacco in 2003 and does not qualify for low-dose CT scan screening. 11/15/2024: Patient quit tobacco in 2003 and does not qualify for low-dose CT scan. 07/31/2025: Will obtain CT scan of the chest. Later in the day patient had a CT scan of the chest which demonstrated a new right middle lobe infiltrate and severe apical predominant centrilobular emphysema. No concerning nodules or masses. Subjective Date/time seen: 08/04/25 09:49 Interval history: 07/31/2025: This is a new pulmonary consult for COPD exacerbation and acute on chronic hypercarbic and hypoxemic respiratory failure. Patient with a history of gold grade 4 group E COPD with chronic hypercarbic and hypoxemic respiratory failure prescribed a nonnvasive ventilator with the AVAPS mode but is intolerant, 2 L nasal cannula 24-7, diastolic heart failure, small cell lung cancer 02/2013 status post chemotherapy and radiation and felt to be cured. Patient is followed in the Pulmonary Clinic in last seen on 06/02/2025. At that time she was stable on Advair 230-21 at 2 puffs b.i.d., Incruse 1 puff q.day, albuterol p.r.n., 2 L 24-7. She was prescribed noninvasive ventilation but not wearing it because she has failed multiple masks. She was in wheelchair from a previous stroke but had been working with PT at assisted living with walking in the halls with a walker. Medications were continued, recommended regular exercise is stain up-to-date on vaccines. 07/02/2025: The patient was seen in the emergency department for leg trauma after hitting this on her wheelchair with painful swelling. She was diagnosed with a hematoma. Again seen in the ER 07/18/2025 for the same issue and had an I and D with 5 mL expressed. Placed on Keflex. Again seen on 07/21/2025 With leg pain as her PCP but multiple stitches in her leg and a compression bandage. The compression bandage was removed and pain went away. On 07/24/2025 the heater was turned on in her facility and this caused her to have shortness of breath, wheezing and a dry cough. She then developed decreased appetite and pain throughout her body. She had chills but no fever. 07/30/25: Symptoms progressed and she presented to the emergency room on 07/31/25. Her blood pressure is 116/98, heart rate 88, respirations 24 with saturations on 3 L nasal cannula 100%. She was afebrile. She had a faint wheeze with decreased breath sounds. White blood cell count was 15.5, creatinine was 1.12, COVID influenza RSV RT PCR assay negative, MRSA swab negative. ABG on 2 L nasal cannula 7.36/77/30. He has and fills were 1.9% equals 295 per micro L. patient was placed on BiPAP rate of 12, pressures 14/6 and 40% with a repeat blood gas of 7.42/66/94. Patient was treated with Solu-Medrol, ceftriaxone, doxycycline that was changed to azithromycin. Patient also started on Claritin 10 and guaifenesin 600 p.o. b.i.d.. 07/31/2025: Patient wore the noninvasive ventilator with a BiPAP mode overnight. When I enter the room she was on the BiPAP. She told me she was much better. She told me she is breathing back to her normal. She denied fever cough, phlegm or hemoptysis. She is afebrile. White blood cell count 12.5, creatinine 1.11, BNP 1520, procalcitonin 0.1, CRP 2.2, D-dimer 1.27. Patient told me the BiPAP was uncomfortable and I placed her on noninvasive ventilation with the AVAPS mode and adjusted the settings to come for resulting in a rate of 14, tidal volume 500, EPAP 7, minimal inspiratory pressure 8, maximal inspiratory pressure 25, inspiratory time 1.2, rise of 5 which is a slowest and 32% FiO2. She was requesting to come off of the noninvasive ventilator and I placed her on 2 L nasal cannula and she had no respiratory distress with saturations 96%. Later in the day patient had a CT scan of the chest which demonstrated a new right middle lobe infiltrate and severe apical predominant centrilobular emphysema. Echocardiogram with an LVEF of 40-45%, grade 1 diastolic dysfunction, normal RV size and function. Normal right atrial size. PASP 19. Obtained download from [employer] from October 29, 2024 to January 19, 2025.. Patient is on a Vivo 45. Patient is on a AVAPS AE mode with a set rate of 12, target volume 400 mL. EPAP minimum 5. EPAP maximum 10. minimum pressure support 10. Maximum pressure support 15. , rise time of 3. Backup inspiratory time 1.5 seconds. There has been no usage during this time interval. I interpret this download as total noncompliance. 08/01/2025: Patient tells me she has rest shortness of breath and the same dyspnea on exertion is yesterday. She has coughing but the phlegm is stuck in her throat. Her nasal congestion is the same. Overall she feels slightly worse than yesterday. When I enter the room she was on 2 L nasal cannula saturation 90%. She is afebrile. White blood cell count 12.5, creatinine 1.19, yesterday she was positive 455 mL and is cumulative positive 495 mL since admission. Weight today is 66.4. Patient wore the hospital noninvasive ventilator with the AVAPS mode and said that it hurt her nose. The air delivery was acceptable but she has a previous history of a broken nose and cannot sleep with the mask on and has failed multiple masks as an outpatient. Patient had an ABG prior to removal with pH of 7.41/60/83. Patient had an overnight oximetry on these settings and 32% FiO2 with a recording duration of 8 hours, average saturation 95%. Low saturation 88%. Time with saturation less than or equal to 88% was 0 minutes. Oxygen desaturation index 2.2. 08/02/2025: Patient complains of fatigue. She still has shortness of breath at rest and dyspnea on exertion walking from the bed to the chair. She was in the chair 15 hours yesterday. She denies cough and phlegm and says that her phlegm just gets stuck in her throat. Last night she did not wear the noninvasive ventilator and wore 2 L nasal cannula. When I enter the room she was on 2 L nasal cannula saturations 99%. I decreased from 1 L and her saturations were 97%. White blood cell count 11.2, creatinine 1.44. BNP is unchanged from 1520 on 07/31 to 1580 today. she is using a Cornet flutter valve. Yesterday she was positive 2 mL and cumulative she is positive 1.2 L since admission. Her weight today is 68.7. Lasix is on on hold because of creatinine at 1.44. 08/03/2025: Patient tells me she is better today. She feels she is breathing 80% back to her normal. Her cough is at her normal with no phlegm. She still gets phlegm stuck in her throat. She has sinus congestion that is controlled with Claritin. She did not do any walking yesterday. When I enter the room she was on 1 L nasal cannula saturation 92%. Yesterday she was 770 mL positive. Cumulative since admission she is 1.7 L positive. Her weight today is 69.4 kg. 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 She used in over the mouth under the mat nose mask on the hospital machine with AVAPS settings and said she did well and was able to sleep. 10/04/2024: Patient states she is breathing back at her baseline. She is feeling better than she has in the last month. Her cough is better with minimal phlegm and no hemoptysis. She ambulated from the bed to the chair. When I enter the room the patient was on 1 L nasal cannula saturations 98%. I placed her on room air and the patient saturations were 92%. She is positive 1.0 L yesterday and cumulative she is positive 2.7 L. Her weight today is 70.5. Patient tells me she is ready to go home. Daughter is in the room and agrees. Patient wear her home machine with AVAPS AE rate of 14, tidal volume 500, EPAP minimum 5, EPAP maximum 15, pressure support minimum 10, pressure support maximum 25 with 2 L bleed in. Patient was using and over the mouth under the nose mask And said that she slept for 3 hours and feels like this was greatly improved. Patient had an overnight oximetry on these settings with recording duration of 4 hours and 18 minutes, average saturation 93%, low saturation 82%, time with saturation less than or equal to 88% was 31 minutes. Oxygen desaturation index 8.9. Patient had ABG prior to removal with a pH of 7.40/50/59. DATA: 07/31/25: Echo Summary 1. Technically suboptimal study due to poor sonographic images. 2. Definity contrast administered improved wall motion interpretation. 3. Left ventricular chamber dimension is moderately enlarged. 4. Left ventricular systolic function is moderately globally reduced, estimated at 40-45. 5. The left ventricular diastolic function is grade I diastolic dysfunction. 6. No pulmonary hypertension, estimated pulmonary arterial systolic pressure is 19 mmHg. Right Ventricle Right ventricular chamber dimension is normal. Right ventricular systolic function is normal. Left Atria Left atrial chamber dimension is normal. Right Atria Right atrial chamber dimension is normal. 07/31/25: EXAMINATION:CT diagnostic chest wo con INDICATION: Pneumonia COPD COMPARISON: None. FINDINGS: Patchy consolidative changes are developing in the medial segment of the right middle lobe. Mild scattered fibrotic and atelectatic appearing changes throughout the lower lobes bilaterally. Moderately severe centrilobular emphysematous changes especially in the upper lobes. No new nodules or masses seen. Heart and great vessels stable in size with no cardiomegaly or large pericardial effusion/bulky lymphadenopathy. Coronary artery calcification and/or stenting. 50% compression deformity of T6 similar to the previous exam. IMPRESSION: Small area of consolidation in the medial segment of the right middle lobe consistent with early pneumonia. Finding should be followed radiographically until clear. 01/29/25 - Overnight oximetry on noninvasive ventilator with 4 L bleed in. Recording duration 7 hours and 53 minutes. Basal saturation 97.5. Low saturation 94%. High saturation 99%. Time with saturation less than or equal to 88% was 0 minutes. Oxygen desaturation 0. 4 L provides adequate oxygenation. 11/06/23 - CXR - The lungs are clear, without evidence of focal consolidation or pleural effusion. Suspected COPD. Cardiomediastinal silhouette is within normal limits. Bones and soft tissues are unremarkable. 07/03/2023: Home O2 assessment: Rest room air saturations 83%. Rest nasal cannula 2 L saturation 87%. Rest nasal cannula 3 L saturation 88%. Rest nasal cannula 4 L saturation 91%. Exercise nasal cannula 4 L, saturations 88%. Exercise nasal cannula 5 L saturation 90%. Patient requires 4 L at rest and 5 with activity. 07/02/24: Patient wore her home noninvasive ventilator in the hospital, with an AVAPS-AE mode with a rate of 12, tidal volume 400, EPAP minimum 5, maximum EPAP 10, minimal pressure support 10, maximal pressure support 15, rise time of 3 with 4 L bleed in and did well.? Patient had an overnight oximetry with recording time of 7 hours and 31 minutes, average saturation 92%.? Low saturation 88%.? Time with saturation less than or equal to 88% was 1 minute, oxygen desaturation index 0.4.? Patient had a blood gas prior to removal of this machine with pH of 7.44/48/70.? These settings provide adequate oxygenation and ventilation.? 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 06/30/2023: EXAMINATION: CTA chest PE protocol ?INDICATION: Hypoxia. ?COMPARISON: Chest CT 08/12/2022 ?FINDINGS: There is severe emphysema. There is mild atelectasis bilaterally, worst in the lower lobes. No pleural effusion. The heart size is normal. There are coronary artery calcifications. No pericardial effusion. There is no pulmonary embolus. There is a gallstone in the gallbladder which is normal in size. There is a ventral hernia containing colon. There is kyphosis and moderate spondylosis of thoracic spine. There is a chronic burst fracture of T6. There is a chronic compression fracture of L1. ?IMPRESSION: ?1. No pulmonary embolus. ?2. Severe emphysema. ?11/28/2022 PFTs ??The test was performed and results interpreted in accordance with the 2019 and 2005 ATS/ERS Task Force guidelines respectively using the Global Lung Function Initiative-2012 reference equations. Patient demonstrated good effort and cooperation. Reproducibility criteria were met. The quality of the pre bronchodilator spirometry maneuver was Grade A and post bronchodilator spirometry maneuver was Grade A. ??Findings: ??Spirometry: ? There is decreased maximal expiratory airflow at all lung volumes with concave expiratory flow tracing.? The contour the inspiratory flow tracing is normal.? pre bronchodilator FVC is 1.39 L, 48% predicted.? The pre bronchodilator FEV1 is 0.59 L, 26% predicted.? The pre bronchodilator FEV1:? FVC ratio is 42%.? The post bronchodilator FVC is 1.50 L,? representing an 8% increase.? The post bronchodilator FEV1 is 0.63 L, representing a 6% increase.? The post bronchodilator FEV1:? FVC ratio is 42%.? ??Plethysmography:? The total lung capacity is 4.40 L, 85% predicted.? The functional residual capacity is 3.27 L, 110% predicted.? The residual volume is 3.01 L, 133% predicted.? ??Diffusing capacity:? The diffusing capacity unadjusted for hemoglobin and carboxyhemoglobin is 5.2, 25% predicted.? The diffusing capacity adjusted for alveolar volume is 2.58, 61% predicted. ??When compared to PFTs from [facility] on 06/20/2019 the post bronchodilator FVC has decreased from 2.10 L to 1.50 L.? The post bronchodilator FEV1 has decreased from 0.80 L to 0.63 L.? The total lung capacity is unchanged from 4.88 L to 4.40 L.? The functional residual capacity is unchanged from 3.71 L to 3.27 L.? The residual volume is unchanged from 3.24 L to 3.01 L.? The diffusing capacity unadjusted from hemoglobin and carboxyhemoglobin is unchanged from 5.6 to 5.2.? The diffusing capacity adjusted for alveolar volume is unchanged from 2.39 to 2.58. ??Impression:?There is a very severe obstructive abnormality without significant improvement after inhaling a single dose of albuterol.?The increase in residual volume is consistent with?air trapping?from an obstructive abnormality.? The diffusing capacity unadjusted for hemoglobin and carboxyhemoglobin is severely decreased and?remains mildly decreased when adjusted for alveolar volume. ??When compared to previous PFTs there has been a?greater than anticipated time dependent decrease in the FVC and FEV1?with no significant change in the total lung capacity, functional residual capacity, residual volume or DLCO. ?11/28/2022? ABG on 2 L nasal cannula pulse delivery: ? PH 7.42 / 56/47. ? Saturations were 83%.? Checked manually saturations were 84%. ?11/28/2022 ? Home O2 assessment:? Rest room air saturation 84%.? Rest nasal cannula 1 L saturation 86%, rest nasal cannula 2 L saturation 92%.? Exercise 2 L nasal cannula saturation 90%. ? These measurements were made with continuous flow nasal cannula.? I spoke with the alternative energy technician and they attempted to place the patient on 4 L pulse delivery nasal cannula and her saturations remained less than 88%.??The patient requires 2 L oxygen at rest and with exercise at continuous flow. ??? Collectively these results demonstrate progression of the patient's very severe obstructive abnormality consistent with GOLD grade 4 COPD? with chronic hypercarbic respiratory failure from her COPD and hypoxemic respiratory failure from her COPD. ? Patient has chronic hypercarbic respiratory failure from her COPD and would benefit from noninvasive ventilation. ? She would benefit from noninvasive ventilation to prevent further deterioration and subsequent hospitalizations. ? Previously the patient had been on BiPAP on 05/05/2022 and she said that she could not tolerate these pressures and she had claustrophobia.?? I talked to the patient about this and she is also had a stroke with decreased mobility of her right upper extremity and is unsure if she will be able to? initiate her machine and mask at home although she is willing to try. ??? I will initiate home noninvasive ventilation with an AVAPS-AE mode? with a set rate of auto, tidal volume 500, minimal inspiratory pressure 5, maximal expiratory pressure 15, minimal inspiratory pressure 6, maximal inspiratory pressure 25,? rise time 1.0 sec, and 2 L bleed in. These settings can be adjusted for patient comfort on initial set up. ??? The pulmonary function test coordinator has reached out to [facility] to see if this can be coordinated through them and the outpatient clinic will coordinate our efforts with the PFT lab. ?? 08/12/2022 EXAMINATION: CT diagnostic chest wo con ???INDICATION: SOB for 2 days. COPD. History of lung cancer. ???COMPARISON: 07/17/2022 portable AP chest ???02/28/2019 CTA chest ???FINDINGS: Heart size is within normal range. No pericardial or pleural effusion. ???There is extensive thoracic aortic and some great vessel calcifications in addition to prominent coronary artery calcifications. No thoracic aortic aneurysm. ???Normal size and attenuation of the thyroid gland. No hilar or mediastinal mass lesion or lymphadenopathy. ???Moderate to moderately severe emphysema and bilateral pulmonary hyperinflation. ???There is a chronic linear scarring in the right lower lobe and left lower lobe. There is another linear scar or discoid atelectasis in the right lower lobe since 02/28/2019. ???There is minimal atelectasis at the dependent lung bases, both lower lobes. ???Included portions of the adrenal glands are unremarkable. ???One or more ventral abdominal wall hernias. ???Multiple old healed right rib fractures. ???Moderate anterior wedge compression fracture deformity of T6. ???Degenerative disc disease of the lower cervical spine and degenerative spurring of the thoracic spine. ???No suspicious osteolytic or osteoblastic lesions are noted. ???IMPRESSION:? Moderate to moderately severe emphysema ???Mild discoid atelectasis and/or scarring in the lower lobes ???Minimal bilateral lower lobe dependent atelectasis ???Aortic, great vessel and coronary artery atherosclerosis ???06/05/2022 CXR EXAMINATION: XR chest 2V ?INDICATION: SOB,?COMPARISON: 05/19/2022, 05/07/2022 ?FINDINGS: There are small pleural effusions. There is no pneumothorax. There are minimal airspace opacities of the lung bases. The cardiomediastinal silhouette is normal. There is a chronic compression fracture of T6 without significant change. ?IMPRESSION: ?1. Small pleural effusions with minimal bibasilar airspace opacities, likely atelectasis. ???04/03/2022 ABG on 3 L 7.42/49/111 ???03/10/2022 ABG RA 7.42/50/44 ?06/20/2019:? I have PFT report from [facility]. ???Findings: ???Spirometry:? There is decreased maximal expiratory airflow at all lung volumes with concave expiratory flow tracing.? The contour of the inspiratory flow tracing is normal.? The pre bronchodilator FVC is 1.64 L, 64% predicted.? The pre bronchodilator FEV1 is 0.76 L, 37% predicted.? The pre bronchodilator FEV1:? FVC ratio is 47%.? The post bronchodilator FVC is 2.10 L, representing a 28% increase.? The post bronchodilator FEV1 is 0.80 L, representing a 5% increase.? The post bronchodilator FEV1:? FVC ratio is 38%. ???Plethysmography:? The total lung capacity is 4.88 L, 110% predicted.? The functional residual capacity is 3.71 L, 159% predicted.? The residual volume is 3.24 L, 185% predicted. ???Diffusing capacity:? The diffusing capacity unadjusted for hemoglobin and carboxyhemoglobin is 5.6, 28% predicted.? The diffusing capacity adjusted for alveolar volume is 2.39, 66% predicted. ?My?Impression: There is a severe obstructive abnormality with significant improvement after inhaling a single dose of albuterol. The increase in residual volume is consistent with air trapping from an obstructive abnormality.? Hyperinflation is present as demonstrated by the increase in functional residual capacity and is consistent with an obstructive abnormality. The diffusing capacity unadjusted for hemoglobin and carboxyhemoglobin is severely decreased and is mildly decreased when adjusted for alveolar volume. ???When compared to the spirometry on 03/03/2019 the pre bronchodilator FVC has increased from 1.05 L to 1.64 L. The pre bronchodilator FEV1 has increased from 0.47 L to 0.76 L. ?03/03/2019 I have an echocardiogram report from [facility]: ???Summary:? The calculated ejection fraction is 52.? Left ventricular diastolic function is abnormal, grade 1 impaired relaxation.? Right ventricular systolic function is normal.? No evidence of pericardial effusion.? A trace of tricuspid regurgitation normal RV size and function normal right atrial size. ???01/09/2019 echocardiogram report from [facility].? Summary:? The left ventricle size is normal.? The left ventricular systolic function is lower limits of normal with an estimated LV EF of 50-55%.? Left ventricular diastolic function is abnormal grade 1, impaired relaxation, right ventricular systolic pressure is 37, mild aortic valve sclerosis ?03/03/2019:? I have a spirometry report from [facility]. ??Spirometry:? There is decreased maximal expiratory airflow at all lung volumes with concave expiratory flow tracing.? The contour the inspiratory flow tracing is normal.? The FVC is 1.05 L, 36% predicted.? The FEV1 is 0.47 L, 20% predicted.? The FEV1:? FVC ratio is 45%. ???My impression:? There is a very severe obstructive abnormality. ?? ?01/09/2019:? CT angiogram chest report from [facility].? Impression: no CT evidence of pulmonary embolism.? Mosaic perfusion in the upper and lower lobes may represent small airways disease or peripheral airways disease or sequela of radiation therapy if applicable.? The left hilar and suprahilar mass seen in 2012 is no longer present. ? 09/22/2018:? I have a report CT scan of the chest from [facility] demonstrating no pulmonary embolism, mild to moderate emphysema small amount of post infectious residual, no lymphadenopathy no pleural effusions, no pericardial effusion, no pneumothorax. ?? 01/09/2019: ? Report from [facility] ???EXAMINATION:CTA, CHEST FOR PE ???CLINICAL INDICATION: ???68-year-old inpatient with increasing SOB bilateral hand??and leg swelling over the past 6 weeks.? Given history of CHF, COPD,??coronary artery disease and lung carcinoma.??COMPARISON:??CTA chest abdomen pelvis with contrast 01/28/2013 and FDG PET/CT 02/02/2013 ?FINDINGS: ?The study was technically adequate??No intraluminal filling defects, wall thickening, or thrombus is present in??the pulmonary arterial vascular tree to suggest pulmonary embolus ?Although there is no given history of whether this patient had radiation or??chemotherapy the large left hilar and suprahilar mass seen in 2012 is no??longer present.? Mild thickening within the left hilar region of the??previously seen mass.? No recurrent hilar mass or mediastinal or hilar??lymphadenopathy.? Subtle mosaic perfusion of the upper lobes and dependent??lower lobes may represent small airway disease or peripheral airway disease ???or could be sequela of radiation therapy.? Additionally, small bibasilar??effusions and bilateral enhancing lower lobe atelectasis probably??compressive atelectasis.? The mosaic perfusion in the lower lobes has??superimposed interlobar septal thickening and groundglass opacities which??is suggestive of development of pulmonary edema. ???Mild cardiomegaly due to biventricular prominence.? No pericardial??effusion.? There is moderate hepatic venous reflux suggestive of a elevated??right heart pressures..? Normal caliber thoracic aorta.? No evidence of??aortic dissection. ???Included portions of the liver is homogeneous in density.? No definite??enhancing hepatic mass in the upper liver.? The spleen and adrenal glands??and tail of pancreas are unremarkable.? Stable wide neck supra umbilical?epigastric region ventral wall hernia containing nonentrapped nonobstructed?appearing loops of transverse colon unchanged since 2013.? This is only?partially included on this study. ???Bone window imaging fails to demonstrate pathologic bony abnormality.???Interval wedge compression deformity of T6. ?IMPRESSION: ???1. No CT evidence of pulmonary embolus ???2.? Mosaic perfusion in the upper and lower lobes may represent small ???airway disease or peripheral airway disease or sequela of radiation therapy?if applicable. ???3.? Concomitant findings of definite pulmonary edema bibasilar effusions??lower lobe atelectasis may represent CHF; there is always a possibility??this could represent malignant pleural effusions ???4.? Although there is no given history of bladder on this patient has?undergone radiation therapy or chemotherapy the left hilar and suprahilar?mass seen in 2013 is no longer present. ???5.? Wedge compression deformity T6 Since 2013 Review of Systems Constitutional: Constitutional: Reports no additional constitutional complaints Eyes: Eyes: Reports no additional eye complaints ENT: Reports system reviewed and no additional complaints, except as documented Cardiovascular: Cardiovascular: Reports no additional cardiovascular complaints Respiratory: Respiratory: Reports no additional respiratory complaints Gastrointestinal: Gastrointestinal: Reports no additional gastrointestinal complaints Musculoskeletal: Musculoskeletal: Reports no additional musculoskeletal complaints Neurologic: Reports system reviewed and no additional complaints, except as documented Psychiatric: Psychiatric: Reports no additional psychiatric complaints Endocrine: Endocrine: Reports no additional endocrine complaints Hematologic/Lymphatic: Hematologic/Lymphatic: Reports no additional hematologic/lymphatic complaints Allergic/Immunologic: Allergic/Immunologic: Reports no additional allergic/immunologic complaints Exam Const: General: cooperative, comfortable and no acute distress Orientation/consciousness: oriented to person, oriented to place and oriented to time HENMT: Head: normal to inspection Ears: hearing grossly normal bilaterally Eyes: General: appearance normal, both eyes and all related structures Neck: Neck: normal visual inspection Chest: Chest palpation & inspection: normal inspection of the chest Resp: Effort & Inspection: normal respiratory effort and able to speak in complete sentences Auscultation: no crackles, no rales, no rhonchi, no wheezes and diminished lung sounds Cardio: Jugular venous distension: no JVD GI: Inspection: normal to inspection Skin: General skin exam: normal color Neuro: General: oriented to person, oriented to place and oriented to time Extrem: General: normal to inspection and edema Other: Positive bilateral lower extremity edema. Psych: Appearance: grossly normal Objective Data Vital Signs Vital Signs: Vital Signs - 24 hr 08/03/25 12:00 08/03/25 14:01 08/03/25 14:15 Temperature Pulse Rate 86 75 75 Respiratory Rate 18 18 Blood Pressure Pulse Oximetry Oxygen Delivery Oxygen Flow Rate Fraction of Inspired Oxygen 08/03/25 16:00 08/03/25 16:00 08/03/25 20:00 Temperature 36.6 C Pulse Rate 72 75 60 Respiratory Rate 16 18 Blood Pressure 132/60 Pulse Oximetry 94 97 Oxygen Delivery BiPAP Oxygen Flow Rate Fraction of Inspired Oxygen 32 08/03/25 20:00 08/03/25 20:01 08/03/25 20:11 Temperature Pulse Rate 78 84 79 Respiratory Rate 20 20 Blood Pressure Pulse Oximetry Oxygen Delivery Oxygen Flow Rate Fraction of Inspired Oxygen 08/03/25 20:51 08/03/25 21:00 08/03/25 23:41 Temperature 36.2 C L Pulse Rate 80 77 60 Respiratory Rate 18 Blood Pressure 138/78 Pulse Oximetry 93 97 Oxygen Delivery Oxygen Flow Rate Fraction of Inspired Oxygen 08/03/25 23:41 08/04/25 00:00 08/04/25 02:34 Temperature Pulse Rate 60 677 H 69 Respiratory Rate Blood Pressure Pulse Oximetry 97 92 Oxygen Delivery BiPAP Oxygen Flow Rate 2 Fraction of Inspired Oxygen 08/04/25 04:00 08/04/25 04:24 08/04/25 08:00 Temperature 36.3 C L Pulse Rate 64 68 Respiratory Rate 20 Blood Pressure 144/68 H Pulse Oximetry 96 94 Oxygen Delivery Nasal Cannula Oxygen Flow Rate 1 Fraction of Inspired Oxygen 08/04/25 08:00 Temperature Pulse Rate 71 Respiratory Rate Blood Pressure Pulse Oximetry Oxygen Delivery Oxygen Flow Rate Fraction of Inspired Oxygen Intake/Output Intake/Output: Intake & Output 08/01/25 08/02/25 08/03/25 08/04/25 23:59 23:59 23:59 23:59 Intake Total 1122 1180 1900 740 Output Total 820 410 850 700 Balance 022 558 2300 40 Meds/Results Medications: Active Medications Generic Name Dose Route Start Last Admin Trade Name Freq PRN Reason Stop Dose Admin Acetaminophen 650 mg 07/30/25 18:01 08/04/25 05:52 Acetaminophen 325 Mg Tablet PO 650 mg Q6H PRN Administration Mild Pain (1-3) or Fever Acetylcysteine 200 mg 08/02/25 14:00 08/04/25 09:31 Acetylcysteine 20% Inhal Soln 800 Mg/4 Ml Vial INHALATION Not Given Q6HRT JESSIE Albuterol/Ipratropium 3 ml 07/31/25 14:00 08/04/25 08:50 Ipratropium 0.5 Mg/Albuterol Sulfate 2.5 Mg (Base) Ampul.Neb 3 Ml INHALATION Not Given Q6HRT JESSIE Alprazolam 0.5 mg 07/30/25 23:58 08/03/25 23:28 Alprazolam (*Crx) 0.5 Mg Tablet PO 0.5 mg Q8H PRN Administration Anxiety Amoxicillin/Clavulanate Potassium 1 tablet 08/03/25 21:00 08/04/25 08:53 Amoxicillin/Clavulanate K 875-125 Mg Tab PO 08/06/25 20:59 1 tablet Q12HR JESSIE Administration Aspirin 81 mg 07/31/25 09:00 08/04/25 08:53 Aspirin 81 Mg Enteric Tablet PO 81 mg DAILY JESSIE Administration Atorvastatin Calcium 40 mg 07/30/25 21:00 08/03/25 20:48 Atorvastatin 40 Mg Tablet PO 40 mg HS JESSIE Administration Enoxaparin Sodium 40 mg 07/30/25 21:00 08/03/25 20:51 Enoxaparin 40 Mg/0.4 Ml Syringe SUB-Q 40 mg HS JESSIE Administration Escitalopram Oxalate 10 mg 07/31/25 09:00 08/04/25 08:53 Escitalopram Oxalate 10 Mg Tablet PO 10 mg DAILY JESSIE Administration Furosemide 40 mg 07/31/25 09:00 08/04/25 08:53 Furosemide 40 Mg Tablet PO 40 mg BID JESSIE Administration Gabapentin 300 mg 07/31/25 09:00 08/04/25 08:53 Gabapentin 300 Mg Capsule PO 300 mg TID JESSIE Administration Guaifenesin 1,200 mg 08/01/25 21:00 08/04/25 08:54 Guaifenesin 12 Hr 600 Mg Tabcr PO 1,200 mg Q12HR JESSIE Administration Levetiracetam 250 mg 07/30/25 21:00 08/04/25 08:54 Levetiracetam 250 Mg Tablet PO 250 mg Q12HR JESSIE Administration Loratadine 10 mg 07/30/25 21:00 08/03/25 20:48 Loratadine 10 Mg Tablet PO 10 mg HS JESSIE Administration Melatonin 5 mg 07/30/25 18:38 08/02/25 22:07 Melatonin 5 Mg Tablet PO 5 mg HS PRN Administration Insomnia Pantoprazole Sodium 40 mg 07/31/25 09:00 08/04/25 08:54 Pantoprazole 40 Mg Tablet PO 40 mg QAM JESSIE Administration Polyethylene Glycol 17 gm 08/03/25 10:44 08/04/25 08:55 Polyethylene Glycol 3350 17 Gm Powd.Pack PO Not Given QAM JESSIE Potassium Chloride 20 meq 07/31/25 09:00 08/04/25 08:54 Potassium Chloride 20 Meq Er Tablet PO 20 meq BID JESSIE Administration Prednisone 40 mg 07/31/25 11:50 08/04/25 08:52 Prednisone 20 Mg Tablet PO 40 mg DAILY@0800 JESSIE Administration Ropinirole HCl 1 mg 07/31/25 09:00 08/04/25 08:53 Ropinirole Hcl 1 Mg Tablet PO 1 mg TID JESSIE Administration Spironolactone 25 mg 07/31/25 09:00 08/04/25 08:53 Spironolactone 25 Mg Tablet PO 25 mg DAILY JESSIE Administration Radiology Results: ITS Impressions Chest X-Ray 07/30/25 15:01 Impression: Early bilateral pneumonia Chest CT 07/31/25 14:05 IMPRESSION: Small area of consolidation in the medial segment of the right middle lobe consistent with early pneumonia. Finding should be followed radiographically until clear. Venous Doppler Study 08/01/25 08:07 Impression: Negative for DVT. Labs Labs: Laboratory Results - last 24 hr 08/04/25 08/04/25 03:48 05:00 WBC 8.0 RBC 3.69 L Hgb 10.5 L Hct 35.5 L MCV 96.2 MCH 28.5 MCHC 29.6 L RDW 14.6 H Plt Count 309 MPV 10.7 H Puncture Site Right brachial ABG pH 7.402 ABG pCO2 50.1 H ABG pO2 58.5 L ABG PO2/FiO2 Ratio 2.09 ABG HCO3 30.5 H ABG O2 Saturation 90.1 L ABG O2 Content 15.3 L ABG Base Excess 4.8 A-a Gradient 82.0 Oxyhemoglobin 90.9 Carboxyhemoglobin 0.4 Methemoglobin 0.1 Reduced Hemoglobin 8.6 H Total Hemoglobin 12.0 O2 Delivery Device Non-invasive vent O2 Liters/Min 2.0 Vent Rate 14 FiO2 28 Expiratory Pressure 7 Inspiratory Pressure Not Reportable Sodium 139 Potassium 4.1 Chloride 103 Carbon Dioxide 32 H Anion Gap 4 BUN 29 H Creatinine 1.08 H Estim Creat Clear Calc 36 Estimated GFR 50 L Glucose 78 Calcium 8.1 L Total Bilirubin 0.4 AST 29 ALT 28 Alkaline Phosphatase 60 Total Protein 6.1 L Albumin 3.3 L
[2025-08-04 09:56] LABS: NT Pro B Type Natriuretic Pept 1470 pg/mL (19.9-100)
--- NOTE | 2025-08-04 11:09 | PM.DS ---
DS: Admitting Diagnosis Discharge Date 08/04/2025 Admitting Diagnosis Body aches and cough DS: Discharge Diagnosis Discharge Diagnosis (1) Acute exacerbation of chronic obstructive pulmonary disease: Code(s): J44.1 - Chronic obstructive pulmonary disease with (acute) exacerbation Status: Acute Plan Acute COPD exacerbation Acute on chronic hypercapnic and hypoxic respiratory failure Right middle lobe pneumonia -patient has longstanding COPD follows Dr. Nava -she has gold grade 4, history of alpha-1 antitrypsin genotype mm -she has air trapping with COPD not a candidate for zephyr valve or surgery -Discussed with Dr. Nava, plan for AVAPS mode on noninvasive ventilator. -lower extremity ultrasound negative for DVT -pCO2 66.4, P is stable 7.42, likely could hypercarbia is chronic -PT OT consulted for weakness -steroids: Changes Solu-Medrol to prednisone 40 mg daily -nebs: duoneb QID -guaifenesin for cough -patient developing infiltrate in the right middle lobe seen on CT scan -continue ceftriaxone and azithromycin -at home on Advair CHF -08/03:BNP 1150, improving -cardiology consulted -IV Lasix 40 b.i.d. -monitor renal function during diuresis -echocardiogram shows 40-45% left ventricular diastolic dysfunction -EKG sinus rhythm -comorbid condition COPD -currently on spironolactone and Lasix -beta-cody can be added as outpatient after discussing with Cardiology -Daily weights. -fluid restriction -Strict I&O's -elevate/Samir wrap legs if needed -atorvastatin 40 mg p.o. q.h.s. -Optimize blood pressure less than 130/80. -Fall risk assessment. Chronic conditions -left lower extremity hematoma: Has been lanced and stitches placed on 07/18, we will remove sutures -heart failure: On Aldactone, Lasix with potassium supplement -RLS: requip -GERD: PPI -insomnia: melatonin -allergies: claritin -siezure disorder: keppra BID -peripheral neuropathy: Gabapentin -depression: Lexapro, p.r.n. Xanax -hyperlipidemia: Aspirin, statin -supplements: On ferrous sulfate, vitamin-D 2, multivitamin Diet: Heart healthy DVT prophylaxis: SCDs, Lovenox. Patient had recent hematoma on her leg which is resolved, will monitor closely for any signs of bleeding Code status: DNR Disposition: Home in 2-3 days DS: Summary Hospital Course Hospital Course: 75-year-old female with a past medical history of CHF, seizure disorder, CVA, CKD, COPD, PE, small cell lung cancer, hypertension presents to the ED from assisted living on 07/30/2025 with complaints of shortness of breath. Patient states that for the past few days she has been having worsening dyspnea with a cough with white sputum that has increased from her chronic cough along with body aches and fever. Patient does wear 2 L of oxygen at baseline. She is prescribed NIV but does not wear it as she does not like the masks going over the bridge of her nose. Regarding COPD exacerbation patient is currently breathing at her baseline. Patient is currently on monitor nasal cannula and saturating around 98%. Patient will be discharged with the following recommendation from pulmonology: Augmentin 875-125 b.i.d. x4 days. Advair 230-21 at 2 puffs b.i.d. Incruse Ellipta 62.5 at 1 puff q.day Rescue albuterol 2 puffs q.4 hours p.r.n. shortness of breath or wheezing. Guaifenesin 600 mg p.o. b.i.d. p.r.n. congestion Flutter valve q.2 hours while awake Oxygen at rest and with activity per formal home O2 assessment which I have ordered. When she naps or sleeps: Through [facility], AVAPS AE rate of 14, tidal volume 500, EPAP minimum 5, EPAP maximum 15, pressure support minimum 10, pressure support maximum 25 with 3 L bleed in using an over the mouth under the nose mask. Regarding CHF cardiology evaluated the patient since her echocardiogram shows 40-45% which is reduced from her previous echocardiography which was done 2021 which shows normal ejection fraction 50-60%. Cardiology advised to continue the Lasix 40 mg p.o. b.i.d. and spironolactone 25 mg p.o. q.d. and no further workup. Follows up with Dr. Meyers as an outpatient. On the day of discharge, the patient was seen and examined. Vital signs were stable. Physical exam were stable and labs were reviewed at length. Discharge instructions, medications, and follow-up appointments were discussed with the patient at length and all day questions were answered. ER warnings were given. Status at Discharge Cognitive/behavioral status at discharge: Stable Time Spent with Patient Time attestation: Total time spent providing and/or coordinating discharge services: 45 minutes Exam Narrative: - GENERAL: Pleasant elderly woman in no acute distress. - EYES: EOMI. Anicteric. - HENT: Moist mucous membranes. - LUNGS: End-expiratory wheezing bilaterally throughout, no rhonchi - CARDIOVASCULAR: Regular rate and rhythm. - ABDOMEN: Soft, non-tender and non-distended. - EXTREMITIES: 2+ lower extremity edema, peripheral pulses intact, wound on left lower extremity eschar with stitches in place - NEUROLOGIC: No focal neurological deficits. - PSYCHIATRIC: Awake, Alert and oriented x 3. Appropriate mood and affect. - SKIN: No rashes or lesions. DS: Data Data Completed and Pending Labs on day of discharge: Labs from last 24 hours 08/04/25 08/04/25 05:00 03:48 WBC 8.0 RBC 3.69 L Hgb 10.5 L Hct 35.5 L MCV 96.2 MCH 28.5 MCHC 29.6 L RDW 14.6 H Plt Count 309 MPV 10.7 H Puncture Site Right brachial ABG pH 7.402 ABG pCO2 50.1 H ABG pO2 58.5 L ABG PO2/FiO2 Ratio 2.09 ABG HCO3 30.5 H ABG O2 Saturation 90.1 L ABG O2 Content 15.3 L ABG Base Excess 4.8 A-a Gradient 82.0 Oxyhemoglobin 90.9 Carboxyhemoglobin 0.4 Methemoglobin 0.1 Reduced Hemoglobin 8.6 H Total Hemoglobin 12.0 O2 Delivery Device Non-invasive vent O2 Liters/Min 2.0 Vent Rate 14 FiO2 28 Expiratory Pressure 7 Inspiratory Pressure Not Reportable Sodium 139 Potassium 4.1 Chloride 103 Carbon Dioxide 32 H Anion Gap 4 BUN 29 H Creatinine 1.08 H Estim Creat Clear Calc 36 Estimated GFR 50 L Glucose 78 Calcium 8.1 L Total Bilirubin 0.4 AST 29 ALT 28 Alkaline Phosphatase 60 NT-Pro-B Natriuret Pep 1470 H Total Protein 6.1 L Albumin 3.3 L Preliminary micro results at discharge 07/30/25 16:04 Blood Culture - Preliminary Blood 07/30/25 16:04 Blood Culture - Preliminary Blood Discharge Plan Discharge Attending physician on discharge: Solomon Wilkins Consulting providers: Alex Nava; Oli Meyers Discharging Clinician: Solomon Wilkins Anticipated Discharge Date/Time: 08/04/25 13:03 Patient Disposition: [facility] Activity: as tolerated Diet: heart healthy Discharge Instructions: Check blood pressure 1 to 2 times a day. Record and bring into your doctor for review. Call your doctor if your blood pressure is greater than 180/110 or less than 90/45. Walk with cane or other assist device. Take precautions to avoid falls. Rise slowly from a lying or sitting position. Pause before standing or walking. Contact your doctor or call 911 and come to the Emergency Room if you have any type of trauma, lightheadedness with standing or other worrisome symptoms. Avoid NSAIDs (ibuprofen, naproxen, Aleve). Tylenol is safe to take. Follow-up with your primary care provider in 1-2 weeks. Please call for appointment. Follow-up with Pulmonology and Cardiology in 2-4 weeks. Please call for an appointment. Per Pulmonology: Augmentin 875-125 b.i.d. x5 days. Advair 230-21 at 2 puffs b.i.d. Incruse Ellipta 62.5 at 1 puff q.day Rescue albuterol 2 puffs q.4 hours p.r.n. shortness of breath or wheezing. Guaifenesin 600 mg p.o. b.i.d. p.r.n. congestion Flutter valve q.2 hours while awake Oxygen at rest and with activity per formal home O2 assessment which I have ordered. When she naps or sleeps: Through [facility], AVAPS AE rate of 14, tidal volume 500, EPAP minimum 5, EPAP maximum 15, pressure support minimum 10, pressure support maximum 25 with 3 L bleed in using an over the mouth under the nose mask. Thank you for using [facility] for your health care needs. Patient Instructions: Antibiotic Form Patient Language: Maori Stand Alone Forms: General Discharge Information Follow-up/Referrals: Salima Donahue MD [Primary Care Provider, Internal Medicine] Alex Nava MD [Physician, Pulmonology] Discharge Medications: New (DME) mucus clearing device Device See Rx Instructions .Route Qty: 10 0RF Rx Instructions: As directed amoxicillin-pot clavulanate 875-125 mg tablet 1 tablet PO Q12H 5 Days Qty: 10 0RF guaifenesin [Mucus Relief ER] 600 mg Tablet Extended Release 12hr 600 mg PO Q12HR Qty: 30 0RF Continued multivitamin with folic acid [Daily-Annie (with folic acid)] 400 mcg tablet 1 tablet PO DAILY ropinirole 2 mg tablet 1 mg PO TID escitalopram oxalate 10 mg tablet 10 mg PO DAILY levocetirizine 5 mg tablet 5 mg PO QPM ferrous sulfate 325 mg (65 mg iron) tablet 325 mg PO TID potassium chloride 20 mEq tablet extended release 20 meq PO BID melatonin 5 mg capsule 5 mg PO HS levetiracetam [Keppra] 250 mg tablet 250 mg PO Q12H atorvastatin 40 mg tablet 40 mg PO HS aspirin [Adult Aspirin Regimen] 81 mg tablet,delayed release (DR/EC) 81 mg PO DAILY acetaminophen 500 mg capsule 500 mg PO Q6H PRN (Reason: Pain (Scale Score 1-3)) (DME) comp.stocking,knee,long,medium Misc See Rx Instructions .Route Qty: 12 0RF Rx Instructions: As directed furosemide [Lasix] 40 mg tablet 40 mg PO BID Qty: 60 0RF fluticasone propion-salmeterol [Advair HFA] 230-21 mcg/actuation HFA aerosol inhaler See Rx Instructions .ROUTE .COMPLEX Qty: 12 6RF Dose Instruction: Inhale 2 puffs by mouth twice daily. Rx Instructions: Inhale 2 puffs by mouth twice daily. alprazolam 0.5 mg tablet 0.5 mg PO Q8-12H PRN (Reason: Anxiety) gabapentin 300 mg capsule 300 mg PO TID spironolactone [Aldactone] 25 mg tablet 25 mg PO DAILY ergocalciferol (vitamin D2) [Vitamin D2] 1,250 mcg (50,000 unit) capsule 1,250 mcg PO WEEKLY pantoprazole 40 mg Tablet,Delayed Release (Dr/Ec) 40 mg PO QAM Qty: 30 0RF albuterol sulfate 90 mcg/actuation HFA aerosol inhaler 2 puff inhalation Q6H PRN (Reason: shortness of breath or wheezing) Qty: 8.5 3RF Rx Instructions: Use with spacer. Incruse Ellipta 62.5 mcg/actuation blister with device See Rx Instructions .ROUTE .COMPLEX Qty: 30 5RF Dose Instruction: Inhale 1 puff by mouth at the same time daily. Rx Instructions: Inhale 1 puff by mouth at the same time daily. Date of admission: 07/30/25 16:19 Primary Care Provider: Salima Donahue Admitting Provider: Grupo Cabrales Attending physician on admission: Grupo Cabrales Condition: Stable
--- NOTE | 2025-08-04 11:20 | HOMEO2EVAL ---
Evaluation was performed at [facility] Home Oxygen Evaluation RC: Home Oxygen (O2) Evaluation Start: 08/04/25 09:27 Freq: ONCE Status: Active Protocol: RPE Activity Type Activity Date Activity User E-sign Co-sign Detail Recorded Client Recorded Date Recorded By Document 08/04/25 10:50 DJO [email or web address] 08/04/25 11:20 DJO Document 08/04/25 10:55 [email or web address] [email or web address] 08/04/25 11:20 DJO Document 08/04/25 11:00 [email or web address] [email or web address] 08/04/25 11:20 DJO 08/04/25 08/04/25 08/04/25 10:50 10:55 11:00 Home O2 Evaluation [Oxygen] -Test Phase Resting Resting Exercise -Oxygen Delivery Room Air Nasal Cannula Nasal Cannula -Oxygen Flow Rate (L/min) 1 1 [Pulse Oximetry] -Pulse Oximetry (90-100 %) 88 L 92 91 [Pulse Rate] -Pulse Rate (60-100 beats/min) 68 66 78 [Comments] -Home Oxygen Evaluation Comments PT NON AMBULATORY, WE DID SITTING EXERCISES WITH FEET [Charges] -Evaluation Charges O2 Evaluation by Pulmonary
--- NOTE | 2025-08-04 11:20 | PCRCNOTE ---
HOME O2 EVAL COMPLETE, 1L REST AND ACTIVITY. PT NON AMBULATORY. SHE HAS HOME O2 AND HAS A PORTABLE CONCENTRATOR FOR DISCHARGE.
== END 2025-08-04 14:02 | DRG 193 ==
LOC: ANHED 15:49 → ANHIMU 16:51 → ANH2MED 08-02 16:02 → ANHIMU 08-08 09:26
PROVIDERS: Internal Medicine Pulmonary Disease; Nurse Practitioner Adult Health; Student in an Organized Health Care Education/Training Program; Admitting Provider Internal Medicine; Emergency Provider Student in an Organized Health Care Education/Training Program; PCP Internal Medicine; Visit Provider General Practice
DX: J18.9 Pneumonia, unspecified organism (principal); J96.21 Acute and chronic respiratory failure with hypoxia; J96.22 Acute and chronic respiratory failure with hypercapnia; J44.0 Chronic obstructive pulmonary disease with (acute) lower respiratory infection; J44.1 Chronic obstructive pulmonary disease with (acute) exacerbation; I13.0 Hypertensive heart and chronic kidney disease with heart failure and stage 1 through stage 4 chronic kidney disease, or unspecified chronic kidney disease; I50.32 Chronic diastolic (congestive) heart failure; I69.351 Hemiplegia and hemiparesis following cerebral infarction affecting right dominant side; N18.30 Chronic kidney disease, stage 3 unspecified; E78.5 Hyperlipidemia, unspecified; G40.909 Epilepsy, unspecified, not intractable, without status epilepticus; F32.A Depression, unspecified; F41.9 Anxiety disorder, unspecified; Z20.822 Contact with and (suspected) exposure to COVID-19; Z79.82 Long term (current) use of aspirin; Z99.81 Dependence on supplemental oxygen; Z86.711 Personal history of pulmonary embolism; Z85.118 Personal history of other malignant neoplasm of bronchus and lung; Z95.5 Presence of coronary angioplasty implant and graft; Z90.5 Acquired absence of kidney; Z87.891 Personal history of nicotine dependence; Z99.3 Dependence on wheelchair
CPT/HCPCS: 36415; 36600; 71046; 71250; 80053; 82375; 82805; 83050; 83735; 83880; 84132; 84145; 85018; 85025; 85027; 85380; 86140; 86738; 87040; 87449; 87637; 87641; 87899; 93005; 93970; 94003; 94618; 94640; 94762; 96374; 97161; 97166; 97530; 97535; 99285; A9270; C8929; J0456; J0696; J1650; J2919; J7050; J7512; Q9957

== ENCOUNTER 2025-08-17 06:13 | Inpatient (IN) | payer MEDICARE, MEDICAID, SELFPAY ==
--- OUTSIDE RECORDS SUMMARY | 2013-03-23 03:59 | XMS_ITS | Continuity of Care Document ---
Author Organization [facility], L TD Address [address] [place] [address] Phone Care Team Providers Care Customer Success Manager Name Role Phone Faina ROGERS, Heidi Unavailable Unavailable Allergies, Adverse Reactions, Alerts Substance Reaction Status Criticality acyclovir Unknown Active No Information Medications Medication Instructions Dosage Effective Dates (start - stop) Status Comments ALLOPURINOL (unknown strength) Not Available - Active VITAMINS (unknown strength) Not Available - Active ALPRAZOLAM (unknown strength) Not Available - Active CITALOPRAM HBR (unknown strength) Not Available - Active XANAX (unknown strength) Not Available - Active POTASSIUM (unknown strength) Not Available - Active VITAMIN D2 (unknown strength) Not Available - Active CALCIO HUMAIRA (unknown strength) Not Available - Active SPIRIVA HANDIHALER (unknown strength) Not Available - Active ASPIR 81 (unknown strength) Not Available - Active B12 (unknown strength) Not Available - Act charissa LOVASTATIN (unknown strength) Not Available - Active METOPROLOL SUCCINATE (unknown strength) Not Available - Active MAGNESIA (unknown strength) Not Available - Active Procedures Procedure Date EYE EXAM ESTABLISHED PATIENT, MEDICAL Mc REFRACTION OPTIONAL UPDATE DU VISUAL FIELD Scan Image/ OCT, Glaucoma EYE EXAM ESTABLISHED PATIENT, MEDICAL Se DU VISUAL FIELD, BI-LATERAL Scan Image/ OCT, Glaucoma SPECIAL REPORTS OR FORMS EYE EXAM ESTABLISHED PATIENT, MEDICAL Ma r DU VISUAL FIELD, BI-LATERAL Scan Image/ OCT, Glaucoma GONIOSCOPY SPECIAL REPORTS OR FORMS SPECIAL REPORTS OR FORMS EYE EXAM ESTABLISHED PAT, MEDICAL DU VISUAL FIELD, BI-LATERAL Scan Image/ OCT, Glaucoma EYE EXAM ESTABLISHED PATIENT, MEDICAL Oc Scan Image/ OCT, Glaucoma SPECIAL REPORTS OR FORMS EYE EXAM ESTABLISHED PATIENT, MEDICAL Oc t Scan Image/ OCT, Retina FUNDUS PHOTOGRAPHY EYE EXAM, NEW PATIENT MEDICAL 1 REFRACTION NO UPDATE DU VISUAL FIELD, BI-LATERAL Scan Image/ OCT, Retina Advance Directives Directive Yes / No Effective Date File Name No Information Encounters Encounter Description Practice Location Reason(s) For Visit Diagnoses Date Provider Providers Copied on Encounter [facility], [address] [place] [address], [id number] , tel:[phone] [facility] No Information 3 Faina Gordon. [address] [place] [address], [id number], [place]. tel:[phone] [facility], [address] [place] [address], [id number] , [place] tel:[phone] [facility] Papilledema, unspecifiedOpen angle with borderline glaucoma findingsOther dissociated deviation of eye movementsNystagmus, unspecifiedOpen angle with borderline glaucoma findings 3 Ruben Newell. [address] [place] [address], [address], [place], [place], [id number], [place]. tel:[phone] Referring Provider: Norman Gould, [address] [place] [address], [id number] . tel:[phone] [facility], [address] [place] [address], [id number] , [place] tel:[phone] [facility] Macular puckering of retinaPapilledema, unspecifiedOther dissociated deviation of eye movements May-0 3 Ruben Newell. [address] [place] [address], [address] [facility], [place], [place], [id number], [place]. tel:[phone] [facility], [address] [place] [address], [id number] , [place] tel:[phone] [facility] Nystagmus, unspecifiedAnatomic al narrow angle borderline glaucomaLens replaced by other meansPapilledema, unspecifiedOther dissociated deviation of eye movementsMacular puckering of retinaSenile nuclear sclerosisEpilepsy, unspecifiedNystagmu s, unspecified Sep-2 2 Ruben Newell. [address] [place] [address], [place], [place], [id number], [place]. tel:[phone] Referring Provider: Reece Perez, [address] [place] [address], [place], [address] . tel:[phone] [facility], [address] [place] [address], [id number] , [place] tel:[phone] [facility] No Information 2 Ruben Newell. [address] [place] [address], [place], [place], [id number], [place]. tel:[phone] Referring Provider: Norman Gould, [address] [place] [address], [id number] . tel:[phone] [facility], [address] [place] [address], [id number] , [place] tel:[phone] [facility] Papilledema, unspecifiedOther dissociated deviation of eye movements Nov-0 2 Ruben Newell. [address] [place] [address], [address] [facility], [place], [place], [id number], [place]. tel:[phone] Referring Provider: Reece Perez, [address] [place] [address] [address] [facility], [place], [place], [address] [place] [address] . tel:[phone] [facility], [address] [place] [address], [address] [place] [address] , tel: [phone] [facility] No Information 2 Lee Norman. [address] [place] [address], [address] [place] [address], . tel:[phone] Referring Provider: Norman Gould, [address] [place] [address], [address] [place] [address] . tel:[phone] [facility], [address] [place] [address], [address] [place] [address] , tel: [phone] [facility] No Information 2 Knupp Reece. [address] [place] [address], [address], [address] [place] [address], . tel:[phone] Referring Provider: Norman Gould, [address] [place] [address], [address] [place] [address] . tel:[phone] [facility], [address] [place] [address], [address] [place] [address] , tel: [phone] [facility] Papilledema, unspecifiedCATOther dissociated deviation of eye movementsEpilepsy, unspecified Dec- 1 Knupp Reece. [address] [place] [address], [address], [place], [place], [address] [place] [address], . tel:[phone] Referring Provider: Norman Mosesatia Bryanna, [address] [place] [address], [address] [place] [address] . tel:[phone] [facility], [address] [place] [address], [address] [place] [address] , tel: [phone] [facility] Macular puckering of retinaPapilledema, unspecifiedSenile nuclear sclerosisSenile nuclear sclerosisOther dissociated deviation of eye movementsOther dissociated deviation of eye movements Dec- 1 Knupp Reece. [address] [place] [address], [address] [facility], [place], [place], [id number], [place]. tel:[phone] [facility], [address] [place] [address], [id number] , [place] tel:[phone] [facility] Macular puckering of retinaPapilledema, unspecifiedPapilled demetrio, unspecifiedMacular puckering of retina Oct-2 1 Ruben Newell. [address] [place] [address], [address], [place], [place], [id number], [place]. tel:[phone] Referring Provider: Norman Gould, [address] [place] [address], [id number] . tel:[phone] [facility], [address] [place] [address], [id number] , [place] tel:[phone] [facility] No Information Jun-2 1 Ruben Newell. [address] [place] [address], [place] [address], [place], [place], [id number], [place]. [phone] Referring Provider: Norman Gould, [address] [place] [address], [id number] . tel:[phone] [facility], [address] [place] [address], [id number] , [place] tel:[phone] [facility] No Information Jun- 1 Lee Austin. [address] [place] [address], [id number], [place]. tel:[phone] Referring Provider: Norman Gould, [address] [place] [address], [id number] . tel:[phone] [facility], [address] [place] [address], [id number] , [place] tel:[phone] [facility] No Information Apr- 1 Ruben Newell. [address] [place] [address], [address], [place], [place], [id number], [place]. tel:[phone] Referring Provider: Reece Perez, [address], [place], [address] . tel:[phone] Family History Family Member Type Diagnosis Age At Onset Problem (finding) No Family history of Re tinal Disorders Problem (finding) No Family history of Ar thritis Father Problem (finding) cataract Problem (finding) No Family history of Di abetes mellitus Problem (finding) No Family history of He art Disease Problem (finding) No Family history of Gl aucoma Problem (finding) No Family hist ory of Macular Degeneration Problem (finding) No Family history of St rabismus Problem (finding) No Family history of As thma Grandmother Problem (finding) stroke Mother Problem (finding) HBP Problem (finding) No Family history of Re spiratory Disease Payers Payer name Insurance type Covered libertarian ID Authoriza tion(s) [place] [employer] [facility] [id number] Social History Type Description Quantity Date Captured Comments Sex Female Smoking Status No Information Chief Complaint And Reason For Visit No Information Reason For Referral Reason For Referral No Information History Of Present Illness Encounter Date Complaint History Of Prese nt Illness No Information Functional Status Date Functional Assessmen t No Information Instructions Date Instruction Additional Infor alex - Return in 6 months with ADA for Ref T, VF then dilate andOCT disc, Related to Papilledema, unspecified Papilledema, unspeci fied - Addendum:1. 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 Both episodes (02/22, and 06/24) resolved after IV steroids. MS medications not started. 2. New onset of downbeat nystagmus, not previously recorded causing difficulty reading. Pt offered a prescription for glasses with or without prisms, and did not like them. Repeat development of small skew deviation also present today, but this time without clear cut papilledema (VA 20/25 OU, No APD, no clinical evidence of disc edema). Since I am leaving the community permanently in the next few weeks I will refer to [facility] based neuro-case consultant for further evaluation and care. She will remain under care of Dr. Kerri Lozano MD as well (local neurologist). Related to Papilledema, unspecified - PRN Related to Papil ledema, unspecified Papilledema, unspeci fied . Condition: stable. Skew deviation . Condition: uncontrolled. Nystagmus, unspecified OU. Condition: uncontrolled. Open angle with borderline glaucoma findings OU. Condition: stable. - 1. Papilledema hx, 2ndary to previous encephalopathy, no papilledema at todays exam per OCT, no changes in pt VF from previous2. Skew deviation: Measurements variable at todays exam. During exam pt responds refract and loose prism improve VA and diplopia, however when offered to her in a trial frame, pt states they are no better than without correction.3. New onset of downbeat nystagmus at todays exam, previously nystagmus seen on lateral gaze*KARINA advised pt and family that follow-up with neuro-case consultant at a [place] setting is necessary per her new development with nystagmus and change in measurements found at todays exam. This will be arranged by our office. Dr. Miranda will be leaving the area permanently soon so patient will continue the new MD as needed. Educational materials provided:none needed. Related to Papilledema, unspecified - Repeat visual field in 6 month s OU. Related to Central 30-2 test performed. - Return in 01/21/13 with KARINA for Ref T & VF then KARINA to ck pupils, then Dil and OCT (ON). Related to Skew deviation Papilledema, unspeci fied Skew deviation Related to Skew deviation - Repeat visual field in 1 year OU. Related to Central 30-2 test performed. - Return in Return i n 1 year with KARINA for Ref T & D. Related to Papilledema, unspecified Papilledema, unspeci fied . Condition: resolved. Skew deviation, intermittent Esotropia seen only on extreme lateral gazes, possibly aggrevated by end-gaze nystagmus OU. - 1. 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 No papilledema on todays exam. s/p IV steroid treatment x 2. OCT confirms resolution of papilledema without recurrence. a. Will continue to observe condition and or symptoms. Educational materials provided:none needed.2. Skew deviation: No diplopia in primary gaze. Minimal deviation on extreme side gaze. Probably aggrevated by endgaze nystagmus. Previous Left hypertropioa resolved. 3. Presbyopia OU: Patient satisfied with OTC readers. Hyperopia, astigmatism. Pt does not feel glasses for distance helpful.4. Visual field seem improved after papilledema resolution. Changes that look like optic nerve fiber layer defects probably test taking errors. No clear cut chnges from previous papilledema. Letter Dr. Callie MD [facility] Neurology, Dr. Godfrey MD PCP done. Related to Papilledema, unspecified - Return in 1 year w brant KARINA for Ref T & VF then Dil and OCT (ON). Related to Papilledema, unspecified Papilledema, unspeci fied - Addendum:Follow up with Neurology and PCP as per their instructions, previously. Related to Papilledema, unspecified - Repeat visual field in 6 month s OU. Related to Central 30-2 test performed. - 6 m c KARINA/HVF, IOP check, KARINA to dilate then OCT Related to Papilledema, unspecified FU bilat Papilledema skew dev 2ndary to ? encephalopathy: VF, (no progression): OD full OS NFL Def s/I with nasal step S/I, no change 04-24, 08-24. Skew Dev resolved @ 08/14/11 exam. Ortho cf to 2LHT. Best corrected VA 20/20 OD, 20/30 OS stable - 1. Improved encephalopathy of unknown etiology, after IV Steroid therapy 07/08/11. Initial treatment ~ 02/26->recurrence 07/10/11->2nd IV steroid Rx->now resolved again. As documented by:2. Resolving Bilat Papilledema (08/14/11 OCT 91/145->today 88/110) 3. Resolved skew (07/10/11 2 LHT-> Ortho today)4. VA Improved best corrected VA (20/40 on 07/10/11->20/20, 20/30 today+150 -125 x 87 OD 20/20 OD, +125 -125 x 101 20/30 OS5. VF, stable, no worsening: (OD full OS NFL Def s/I with nasal sstep S/I, no change 05-12-11)6. Etiology unclear but Neuro may be starting MS treatments after clearance from potential CMV infection. None started yet.7. NAG suspect narrow angle Meeting target IOP (<21 OU) s meds Letter Dr. Hebert Lozano & Dr Rajan ([facility] Neuro), Dr. Donahue, done Related to Papilledema, unspecified FU bilat Papilledema skew dev 2ndary to ? encephalopathy: VF, (no progression): OD full OS NFL Def s/I with nasal sstep S/I, no change 05-12-11. Skew Dev resolved @ 08/14/11 exam. Ortho cf to 2LHT. Best corrected VA 20/25 OU, also improved from 20/4 - 1. Improved encephalopathy of unknown etiology, after IV Steroid therapy 07/08/11. Initial treatment ~ 02/26->recurrence 07/10/11->2nd IV steroid Rx->now resolved again. As documented by:2. Resolving Bilat Papilledema (07/08/11 OCT 107/209->today 91/145) 3. Resolved skew (07/10/11 2 LHT-> Ortho today)4. VA Improved best corrected VA (20/40 on 07/10/11->20/20, 20/25 today5. VF, stable, no worsening: (OD full OS NFL Def s/I with nasal sstep S/I, no change 05-12-11)6. Etiology unclear but Neuro may be starting MS treatments after clearance from potential CMV infection. Letter Dr. Hebert Lozano & Dr Rajan ([facility] Neuro), Dr. Donahue, done Related to CAT - 3 mo c KARINA/VF and OCT KARINA will dilate Related to CAT - 4-6 weeks for HVF, Refract, KARINA to dilate Related to Papilledema, unspecified Papilledema, Recurre nt since 05/12/11. OCT demonstrates increased thcikness OU (OD 96->107, OS99->209). Decreased vision OU (20/25->20/30 OD 20/25->20/50 OS) Recurrence of diplopia since 05/12 (2LHT) pc/IOL OU ERM OS - 1. Pt. to be admitted at [facility]. for recurrence of papilledema, diplopia (LHT) in the presence of encephalopahty of unknown etiology. Original improved after high dose steroids. Will be done thru a direct admit to Dr. Musa (Neurology at [facility]). Spoke with LEIGH Resident operational trainer who will write the orders (pager [phone]) Pt. given order for admission under Dr. Musa.LETTER TO CALLIE, done will be faxed as soon as typed 07/09. Related to Papilledema, unspecified Assessments Type Assessment Date No Information Patient Care Teams Name Effective Dates (start - stop) Status Members No Information
[2025-08-17] VITALS (52 sets, daily range): BP systolic 117–186; BP diastolic 49–141; PULSE 56–93; RESP 14–28; TEMP 36.3–36.7; O2SAT 92–100; BMI 29.0; BMI 24.2
--- NOTE | ~2025-08-17 | XR_ITS ---
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 Findings: No acute fracture or malalignment. No significant degenerative changes. Soft tissues unremarkable. Impression: No acute fracture or malalignment. Reviewed, dictated and finalized at location P. LINES OPERATOR Impression: No acute fracture or malalignment.
--- NOTE | ~2025-08-17 | XR_ITS ---
Examination: XR chest 2V Clinical History: SOB Comparison: 07/30/2025 Technique: PA and Lateral Findings: Cardiomediastinal silhouette normal size and configuration. Mild right basilar airspace disease persists. No acute bony abnormality. Osteopenia. IMPRESSION: 1. Suspect mild persistent right basilar airspace disease. Reviewed, dictated and finalized at location R. ERER
--- NOTE | ~2025-08-17 | XR_ITS ---
EXAMINATION: XR chest 1V portable COMPARISON: No comparisons available. HISTORY: COPD FINDINGS: The lungs are clear, no effusion. No pneumothorax. Heart is normal size. Mediastinal and hilar contours are within normal limits. Bony thorax no acute abnormality. Miscellaneous: None Impression: No acute cardiopulmonary abnormality. Reviewed, dictated and finalized at location P. ING SCHOOL INSTRUCTOR Impression: No acute cardiopulmonary abnormality.
--- NOTE | ~2025-08-17 | XR_ITS ---
Examination: XR knee RT 3V Clinical History: pain, BRUISING SWELLING AFTER FALL Comparison: None Technique: 3 views right knee Findings/impression: 1. Probably chronic injury along posterior patellar surface but an acute process not excluded. 2. Suspect small joint effusion. 3. Otherwise no acute abnormality noted. 4. Peripheral arterial disease Reviewed, dictated and finalized at location R. INE SOLE LEVELER
--- NOTE | 2025-08-17 06:36 | ECG_ITS ---
Test Date: 2025-08-17 06:53:43 Measurements Intervals [place] Rate: 65 P: 66 [place]: 168 QRS: 19 QRSD: 98 T: 49 QT: 411 QTc: 430 Interpretive Statements SINUS RHYTHM WITH OCCASIONAL SUPRAVENTRICULAR PREMATURE COMPLEXES MINIMAL Q WAVES- INF/LAT LEADS BASELINE ARTIFACT- I, II, III, AVR, AVL, AVF, V1, V3, V5 BORDERLINE ECG Compared to ECG 07/30/2025 14:27:28 NO SIGNIFICANT CHANGE Electronically Signed On 08-17-2025 07:54:26 REFERENCE TEST CLERK by Oli Meyers D.O.
[2025-08-17 06:53] LABS: Hematocrit 37.5 % (37.0-47.0); Hemoglobin 11.3 g/dL (12.0-15.0); Immature Granulocyte Percent A 0.5 % (0-0.5); Lymphocytes Absolute Auto 1.20 K/mm3 (0.9-3.2); Mean Corpuscular HGB Conc 30.1 g/dl (32-36); Mean Corpuscular Hemoglobin 28.8 pg (26-34); Mean Corpuscular Volume 95.7 fl (80-100); Nucleated Red Blood Cells Absolute Auto 0.000 K/mm3 (0.0-0.012); Nucleated Red Blood Cells Perc 0.0 % (0.0-0.2); Platelet Count Result 302 k/mm3 (150-375); Red Blood Count 3.92 M/mm3 (4.2-5.4); White Blood Count 8.3 K/mm3 (4.5-10.0)
[2025-08-17 07:04] LABS: Alanine Aminotransferase 19 U/L (6-35); Albumin Level 3.8 g/dL (3.5-5.1); Alkaline Phosphatase 74 U/L (38-126); Aspartate Amino Transferase 26 U/L (14-36); Bilirubin,Total 0.4 mg/dL (0.2-1.3); Blood Urea Nitrogen 24 mg/dL (7-17); Calcium 9.1 mg/dL (8.4-10.2); Chloride 98 mmol/L (98-107); Estimated Glomerular Filt Rate 43; Glucose 90 mg/dL (65-110); Potassium 3.8 mmol/L (3.4-5.0); Sodium 141 mmol/L (137-145); Total Protein 6.9 g/dL (6.3-8.2)
[2025-08-17 07:05] LABS: Carbon Dioxide > 40 mmol/L (22-30)
--- OUTSIDE RECORDS SUMMARY | 2025-08-17 07:59 | XMS_ITS ---
Author Organization [facility] Care Team Providers Care [employer] Maintenance Worker Name Role Phone [facility] Unavailable Unavailable Salima Donahue Unavailable Unavailable Allergies and adverse reactions Code CodeSystem Substance Reaction Severity StartDate Concern Status 281 RXNORM Acyclovir Unknown 01/14/2019 active Adhesive Unknown Unknown active Ativan Unknown 01/14/2019 active Hydrocodone W/Apap ([place]) Unknown 01/14 active 5933 RXNORM Iodine Unknown Unknown active Latent Tgf-Beta Binding Proteins Unknown Unknown active NICKEL Unknown Unknown active Care Team Name Role Address Phone Organization Dates Salima Donahue PCP [address] [place], [address], [facility] (Office): : [facility] 01/15/2019 - 05/24/2019 [place] [address] [place], [address], [facility] (Office): [facility] 01/15/2019 - 05/24/2019 Immunizations Immunization Status Vaccine Details Vaccine Code CodeSystem Blane e Notes Influenza cancelled Influenza, high-dose, split virus, quadrivalent, injectable, preservative free 197 CVX created date: 11/25/2014 consent date: 11/25/2014 TB 2 Step Mantoux Skin Test completed tuberculin skin test; unspecified formulation lotNumber: [id number] expiry: 08/03/2019 Mfg: sanofi pasteur Given 0.1 ml Left Forearm intradermally Step 2 of Multi-step with next step required 98 CVX created date: 01/26/2019 consent date: 01/26/2019 administere d date: 01/26/2019 TB 2 Step Mantoux Skin Test completed tuberculin skin test; unspecified formulation lotNumber: [id number] Given Left Forearm Step 1 of Multi-step with next step required 98 CVX created date: 01/16/2019 consent date: 01/15/2019 administere d date: 01/15/2019 TB 2 Step Mantoux Skin Test completed tuberculin skin test; unspecified formulation lotNumber: [id number] expiry: 09/28/2016 Mfg: Tubersol Given Right Forearm Step 1 of Multi-step with next step required 98 CVX created date: 09/23/2014 consent date: 09/22/2014 administere d date: 09/22/2014 TB 2 Step Mantoux Skin Test completed tuberculin skin test; unspecified formulation lotNumber: [id number] expiry: 09/28/2016 Mfg: Tubersol Given 0.1 ml Right Forearm intradermally Step 2 of Multi-step with next step required 98 CVX created date: 09/25/2014 consent date: 09/25/2014 administere d date: 09/22/2014 Mental Status Section Date Assessment Total Score Description 05/24/2019 BIMS 15 cognitively int act CAM 0 No delirium ind icated PHQ-9 01 minimal depress ion 04/03/2019 BIMS 15 cognitively int act CAM 0 No delirium ind icated PHQ-9 00 Insurance Providers Coverage Status Coverage Type Relationship to Subscriber Member Identifier Subscriber Identifier Group Identifier Payer Identifier and Other information 2019 Code: 2 Code System OID:2..84 0.1.374778. 3.221.5 Code System Name: Source of Payment Typology (PHDSC) Display: Medicaid Translation : Code: 48 Code System: OID:10.30.84 0.1.298645. 6.255.1336 Code System Name: Insurance Type Code ([id number]) Display Name: Medicaid Code: SELF Code System Name: HL7 RoleCode Code System OID:2.16.840.1 .628891.5.111 Display Name: Self [id number] Root: [id number] Payer Name: [facility] Address: [place] [address] City: [place] State: [place] Country: [place] Code: 81 Code System OID:..84 0.1.148212. 3.221.5 Code System Name: Source of Payment Typology (PHDSC) Display: Self Pay Translation : Code: 09 Code System: OID:10.30.84 0.1.522364. 6.255.1336 Code System Name: Insurance Type Code ([id number]) Display Name: Self-pay Code: 1 Code System OID:..84 0.1.043865. 3.221.5 Code System Name: Source of Payment Typology (PHDSC) Display: Medicare Translation : Code: MB Code System: OID:2.16.84 0.1.661936. 6.255.1336 Code System Name: Insurance Type Code ([id number]) Display Name: Medicare Part B Code: 2 Code System OID:2.16.84 0.1.407626. 3.221.5 Code System Name: Source of Payment Typology ([facility]) Display: Medicaid Translation : Code: 48 Code System: OID:2.16.84 0.1.428854. 6.255.1336 Code System Name: Insurance Type Code ([id number]) Display Name: Medicaid Problems Problem # Description Date of onset Resolved Date Code CodeSystem Concern Status 1 DIFFICULTY IN WALKING, NOT ELSEWHERE CLASSIFIED 019 04/16/[address] completed 2 MUSCLE WASTING AND ATROPHY, NOT ELSEWHERE CLASSIFIED, UNSPECIFIED SITE 019 04/16/[address] completed 3 NEED FOR ASSISTANCE WITH PERSONAL CARE 019 04/16/[address] completed 4 ACUTE ON CHRONIC DIASTOLIC (CONGESTIVE) HEART FAILURE [address] active 5 ATHEROSCLEROTIC HEART DISEASE OF [place] CORONARY ARTERY WITHOUT ANGINA PECTORIS [address] active 6 CHRONIC KIDNEY DISEASE, STAGE 2 (MILD) [address] active 7 CHRONIC OBSTRUCTIVE PULMONARY DISEASE WITH (ACUTE) EXACERBATION [address] active 8 MAJOR DEPRESSIVE DISORDER, RECURRENT, UNSPECIFIED [address] active 9 OTHER SEIZURES [address] active 10 PERIPHERAL VASCULAR DISEASE, UNSPECIFIED [address] active 11 PERSONAL HISTORY OF OTHER MALIGNANT NEOPLASM OF BRONCHUS AND LUNG [address] active 12 PURE HYPERCHOLESTEROLEM [place], UNSPECIFIED [address] active 13 RESTLESS LEGS SYNDROME [address] active 14 HYPOKALEMIA 019 03/05/[address] completed 15 ANEMIA, UNSPECIFIED [address] active 16 NEED FOR ASSISTANCE WITH PERSONAL CARE 019 03/05/[address] completed 17 CHRONIC OBSTRUCTIVE PULMONARY DISEASE, UNSPECIFIED [address] active 18 UNSPECIFIED COMBINED SYSTOLIC (CONGESTIVE) AND DIASTOLIC (CONGESTIVE) HEART FAILURE 019 01/17/[address] completed 19 ACQUIRED ABSENCE OF KIDNEY [address] active 20 ANXIETY DISORDER, UNSPECIFIED [address] active 21 HEART FAILURE, UNSPECIFIED 019 03/05/[address] completed 22 MUSCLE WASTING AND ATROPHY, NOT ELSEWHERE CLASSIFIED, UNSPECIFIED SITE 019 03/05/[address] completed 23 MUSCLE WEAKNESS (GENERALIZED) 019 03/05/[address] completed 24 UNSPECIFIED ABDOMINAL HERNIA WITHOUT OBSTRUCTION OR GANGRENE [address] active 25 UNSPECIFIED OVARIAN CYST, UNSPECIFIED SIDE [address] active 26 UNSTEADINESS ON FEET 019 03/05/[address] completed 27 RESTLESS LEGS SYNDROME 015 01/14/[address] completed 28 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 015 01/14/[address] completed 29 CELLULITIS OF OTHER SITES 015 01/14/[address] completed 30 CHRONIC ISCHEMIC HEART DISEASE, UNSPECIFIED 015 01/14/[address] completed 31 CHRONIC PAIN SYNDROME 015 01/14/[address] completed 32 ENCOUNTER FOR OTHER SPECIFIED AFTERCARE 015 01/14/[address] completed 33 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 015 01/14/[address] completed 34 MAJOR DEPRESSIVE DISORDER, SINGLE EPISODE, UNSPECIFIED 015 01/14/[address] completed 35 MUSCLE WASTING AND ATROPHY, NOT ELSEWHERE CLASSIFIED, UNSPECIFIED SITE 015 01/14/[address] completed 36 OTHER CEREBROVASCULAR DISEASE 01/14/[address] completed 37 OTHER EPILEPSY, NOT INTRACTABLE, WITHOUT STATUS EPILEPTICUS 01/14/[address] completed 38 OTHER SPECIFIED CONDITIONS ASSOCIATED WITH FEMALE GENITAL ORGANS AND MENSTRUAL CYCLE 01/14/[address] completed 39 PERIPHERAL VASCULAR DISEASE, UNSPECIFIED 01/14/[address] completed 40 UNSPECIFIED ABDOMINAL HERNIA WITHOUT OBSTRUCTION OR GANGRENE 01/14/[address] completed 41 UNSPECIFIED ABNORMALITIES OF GAIT AND MOBILITY 01/14/[address] completed Reason for Referral No Reasons for Referral Entered Social History Social History Observation Description Start Date End Date Code Code System Current Smoking Status Tobacco smoking consumption unknown 283018914 SNOMED CT Sex Assigned At Female 1950 85726-8 [facility] Gender Identity Sexual Orientation Vital Signs Code Code System Vitals Name Values and Units Timing Information 46973-9 [facility] O2 % BldC Oximetry Value=94.0 Units= % 05/24/2019 08063-8 [facility] Weight Mkyts=152.0 Units=Lbs 05/2019 8462-4 [facility] Blood Pressure-Diastolic Value=80 Un its=mmHg 05/23/2019 8480-6 [facility] Blood Pressure-Systolic Vnuyu=350 Un its=mmHg 05/23/2019 8867-4 [facility] Heart rate Value=78.0 Units=/min 05/2019 72457-6 [facility] Pain Level Value=2.0 05/23/2019 9279-1 [facility] Respiratory Rate Value=20.0 Units=/m in 05/17/2019 8310-5 [facility] Body Temperature Value=98.1 Units= F 05/17/2019 8302-2 [facility] Height Value=63.0 Units=Inches 01/15/2019
--- OUTSIDE RECORDS SUMMARY | 2025-08-17 07:59 | XMS_ITS | Clinical Summary ---
Author Organization [facility] Address [address] [place] [address] Care Team Providers Care Dressage Judge Name Role Phone Salima Donahue MD Primary [...] 165.1 cm (5' 5) 07/31/2022 2:58 PM [facility] Body Mass Index 23.16 07/31/2022 2:58 PM [facility] Plan of Treatment Upcoming Encounters Date Type Department Care Team (Late st Contact Info) Description 09/28/2025 2:30 PM [facility] Office Visit [facility] Oncology and Hematology - [place] [address] [facility] [address] [place] [address] Dino Farfan MD [address] [facility] [address] [place] [address] Health Maintenance Due Date Last [...] Insurance MEDICARE PART A AND B [facility] [place] [place] Care Teams Dressage Judge Relationship Specialty Start Date End Date Salima Donahue MD [address] [place] [id number] PCP - General Internal Medicine 07/31/22
--- OUTSIDE RECORDS SUMMARY | 2025-08-17 07:59 | XMS_ITS | Clinical Summary ---
Author Organization [facility] Address [address] [place] [address] Care Team Providers Care Chairman And Chief Executive Officer Name Role Phone Salima Donahue MD Primary Care Provider [phone] Gordy Rodriguez MD Unavailable Unavailable Allergies Active [...] 20 mg by mouth daily. Active Umeclidinium Clinton (INCRUSE ELLIPTA) 62.5 MCG/INH AEROSOL POWDER, BREATH ACTIVATED Inhale 1 puff into the lungs daily. Active alendronate 70 MG tablet Take 70 mg by mouth every 7 days. Take in the morning with a full glass of water, on an empty stomach, and do not take anything else by mouth or lie down for the next 30 min. Active vitamin D2, ergocalciferol, 13279 UNITS capsule Take 50,000 Units by mouth [...] cancer 12/09/2017 Coronary artery disease invo lving [place] coronary artery of [place] heart without angina pectoris COPD (chronic obstructive [...] CHOLESTEROL 112 MG/DL 03/01/2019 4:04 AM CDT [facility] Comment:DESIRABLE: <200 TRIGLYCERIDES 59 MG/DL 03/01/2019 4:04 AM CDT [facility] Comment:<150 NORMAL HDL 56 >49 MG/DL 03/01/2019 4:04 AM CDT [facility] LDL (CALCULATED) 44 MG/DL 03/01/20 4:04 AM CDT [facility] Comment:<100 OPTIMAL VLDL CALCULATION 12 MG/DL 03/01/20 4:04 AM CDT [facility] Comment:REFERENCE RANGE NOT ESTABLISHED CHOL/HDL RATIO 2.0 03/01/2019 4:04 AM CDT [facility] Comment:REFERENCE RANGE NOT ESTABLISHED LDL/HDL 0.8 03/01/2019 4:04 AM CDT [facility] Comment:REFERENCE RANGE NOT ESTABLISHED NON HDL CHOLESTEROL 56 MG/DL 03/01/2019 4:04 AM CDT [facility] Comment:REFERENCE RANGE NOT ESTABLISHED 03/01/2019 3:14 AM CDT Dino Frye DO LABORATORY Final Result Performing Organization Address City/State/[place] Co de Phone Number [facility] [address] [place] [address], [id number] from Last 3 Months or Most Recently Relevant to Health Maintenance Insurance MEDICAID MEDICARE MEDICARE MEDICAID Advance Directives Documents on File Type Date Recorded Patient Devulcanizer Charger Expl anation Advance Directives and Living Will 03/02/2019 10:16 AM short form poa for health care Advance Directives and Living Will 03/02/2019 9:23 AM POLST Power of Funeral Workers 01/17/2019 7:32 AM Advance Directives and Living [...] 10:34 AM 01/13/2019 3:34 PM Care Teams Chairman And Chief Executive Officer Relationship Specialty Start Date End Date Salima Donahue MD [address] [place] [address] PCP - General INTERNAL MEDICINE 12/10/17 Gordy Rodriguez MD [address] [place] [address] [place] Clinical Nursing Instructor INTERVENTIONAL CARDIOLOGY 09/24/18
--- OUTSIDE RECORDS SUMMARY | 2025-08-17 07:59 | XMS_ITS | Encounter Summary ---
Author Organization [facility] Address [address] [place] [address] Care Team Providers Care Safe Deposit Box Rental Clerk Name Role Phone Salima Donahue MD Primary Care Provider [phone] Gordy Rodriguez MD Unavailable Unavailable Encounter Details Date Type Department Care Team (Late st Contact Info) Description 02/19/2019 Abstract [facility] CONVERSION [address] [place] [address] , Generic Conversion, Social History Tobacco Use [...] on filedocumented in this encounter Care Teams Safe Deposit Box Rental Clerk Relationship Specialty Start Date End Date Salima Donahue MD [address] [place] [id number] PCP - General INTERNAL MEDICINE 12/10/17 Gordy Rodriguze MD [address] [place] [address] [facility] INTERVENTIONAL CARDIOLOGY 09/24/18 documented as of this encounter
--- OUTSIDE RECORDS SUMMARY | 2025-08-17 07:59 | XMS_ITS | Encounter Summary ---
Author Organization [facility] Address [address] [place] [address] Care Team Providers Care Pen Rider Name Role Phone Salima Donahue MD Primary Care Provider [phone] Claude Pinto MD Unavailable [phone] Gordy Rodriguez MD Unavailable Unavailable Encounter Details Date Type Department Care Team (Late st Contact Info) Description 11/28/2017 Abstract [facility] CONVERSION [address] [place] [address] , Generic MD Jenniffer Social History Tobacco [...] on filedocumented in this encounter Care Teams Pen Rider Relationship Specialty Start Date End Date Salima Donahue MD [address] [place] [address] PCP - General INTERNAL MEDICINE 12/10/17 Claude Pinto MD [address] [place] [address] [place] [employer] Representative CARDIOVASCULAR DISEASE 12/10/17 09/27/18 Gordy Rodriguez MD [address] [place] [address] [place] [employer] Representative INTERVENTIONAL CARDIOLOGY 09/24/18 documented as of this encounter
[2025-08-17 08:01] LABS: NT Pro B Type Natriuretic Pept 729 pg/mL (19.9-100)
[2025-08-17] MEDS: IPRATROPIUM 0.5 MG/ALBUTEROL SULFATE 2.5 MG (BASE) AMPUL.NEB 3 ML INHALATION ×3 (08:55→20:38)
--- NOTE | 2025-08-17 09:02 | PCRCNOTE ---
DOCTOR IS IN ROOM ASSESSING WOUND ON PT, DELAY ON ABG
[2025-08-17] MEDS: TETANUS,DIPHTHERIA,AC PERTUSSIS ADULT (0.5 ML) BOOSTRIX IM (09:08)
[2025-08-17 09:24] LABS: Alveolar/Arterial O2 Gradient 75.5 mmHg; Carboxyhemoglobin 0.8 % THb (0-2.0); Fractional Inspired Oxygen 32 %; HCO3 ABG 37.9 mEq/l (22.0-26.0); Methemoglobin ABG 0.3 %THb (0-1.5); Oxygen Content ABG 16.4 %vol (16.0-22.0); Oxygen Saturation ABG 95.3 % (95.0-100.0); PO2 ABG 79.0 mmHg (80.0-100.0); PO2 FiO2 Ratio Arterial Blood 2.47 %; Reduced Hemoglobin 3.9 %THb (0-5.0)
[2025-08-17 09:26] LABS: Liters per Minute 3.0 LPM; Modified Allen's Test Pass; PCO2 ABG 63.0 mmHg (35.0-45.0); Site Drawn RIGHT RADIAL
[2025-08-17] MEDS: AZITHROMYCIN 500 MG TABLET PO (10:08)
[2025-08-17] MEDS: cefTRIAXone 1 GM in SODIUM CHLORIDE 0.9% IV 50 ML 100 ML IVPB (10:08)
--- NOTE | 2025-08-17 10:52 | ED.SOB ---
HPI - SOB/Dyspnea General Chief Complaint: Shortness of Breath/Dyspnea Stated Complaint: FALL, LEFT KNEE LAC Time Seen by Provider: 08/17/25 07:00 History of Present Illness HPI Narrative: Patient presenting with fall, she is wheelchair-bound at assisted living, with history of COPD and CHF on oxygen, however the last 2 days has had increasing shortness of breath, to the point where she has had to sleep in her wheelchair; this morning she fell out of bed and landed on her knees, did not hit her head, but she did skin her knees. Related Data Home Medications ?Medication ?Instructions ?Recorded ?Confirmed ?Last Taken ?Type acetaminophen 500 mg capsule 500 mg PO Q6H PRN Pain (Scale 11/24/19 07/30/25 07/01/23 14:15 History Score 1-3) aspirin 81 mg tablet,delayed 81 mg PO DAILY 11/24/19 07/30/25 07/01/24 History release (Adult Aspirin Regimen) atorvastatin 40 mg tablet 40 mg PO HS 11/24/19 07/30/25 07/01/24 History levetiracetam 250 mg tablet 250 mg PO Q12H 11/24/19 07/30/25 07/01/24 History (Keppra) melatonin 5 mg capsule 5 mg PO HS 11/24/19 07/30/25 06/30/24 History potassium chloride 20 mEq 20 meq PO BID 11/24/19 07/30/25 07/01/24 History tablet,extended release multivitamin with folic acid 400 1 tablet PO DAILY 03/10/22 07/30/25 07/01/24 History mcg tablet (Daily-Annie (with folic acid)) alprazolam 0.5 mg tablet 0.5 mg PO Q8-12H PRN Anxiety 06/29/23 07/30/25 06/17/24 History ferrous sulfate 325 mg (65 mg 325 mg PO TID 12/02/23 07/30/25 07/01/24 History iron) tablet escitalopram oxalate 10 mg tablet 10 mg PO DAILY 07/18/25 07/30/25 Unknown History levocetirizine 5 mg tablet 5 mg PO QPM 07/18/25 07/30/25 Unknown History ropinirole 2 mg tablet 1 mg PO TID 07/18/25 07/30/25 Unknown History ergocalciferol (vitamin D2) 1,250 1,250 mcg PO WEEKLY 07/30/25 07/30/25 Unknown History mcg (50,000 unit) capsule (Vitamin D2) gabapentin 300 mg capsule 300 mg PO TID 07/30/25 07/30/25 Unknown History spironolactone 25 mg tablet 25 mg PO DAILY 07/30/25 07/30/25 Unknown History (Aldactone) Allergies Allergy/AdvReac Type Severity Reaction Status Date / Time Iodinated Contrast Media Allergy Unknown Rash Verified 07/30/25 17:36 latex Allergy Unknown Unknown Verified 07/30/25 17:36 adhesive tape AdvReac Rash Verified 07/30/25 17:36 nickel AdvReac Rash Verified 07/30/25 17:36 Review of Systems Review of Systems: All systems reviewed & are unremarkable except as noted in HPI and below PMFSH Past Medical History Medical History Chronic respiratory failure with hypoxia, on home oxygen therapy 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 Chronic obstructive pulmonary disease Chronic kidney disease, stage 3 Pulmonary embolism (11/2021) Small cell lung cancer Status post chemoradiotherapy. Dyslipidemia Diastolic dysfunction Surgical History Surgical History History of incisional hernia repair History of inguinal hernia repair History of heart artery stent History of cardiac catheterization History of left nephrectomy At age 3, done for unclear reasons. History of abdominal aortic aneurysm repair Family History Family History Sibling Family history of arthritis Lung transplant status, bilateral COPD (chronic obstructive pulmonary disease) Colon cancer Father Melanoma Mother No problems noted. Social History Social History Social History: [id number]: Isabela Ponce, friend. Code status: Full code. Smoking packs per day: 1 Smoking cigarettes per day: 20.0 Years smoked: 40 Smoking pack-years: 40.00 Smoking status: Former smoker Tobacco type: cigarettes Second hand tobacco smoke exposure: No Smoking end date: 09/14/05 Alcohol intake: never Alcohol use details: No alcohol since 2005. Substance use: former Substance use type: does not use Other substance usage details: one pack per day for 40 years Lack of Transportation: No Lack of Food: Never True Current Housing: I Have Housing Concerned About Future Housing: No Difficulty Paying Gas/Electric Bills: No Difficulty Paying for Meds: No Currently Unemployed: No Education: High School Diploma/GED Difficulty w/ Childcare or Family Care: No Additional living arrangements comments: Lives in assisted living. Wheelchair-bound due to right-sided deficits from prior CVA. Spiritual care concerns: No Exam Narrative: EXAMINATION OF ORGAN SYSTEMS/BODY AREAS: Constitutional: Vital signs per nursing GENERAL:[No acute distress, non-toxic appearing.] Does appear quite tired. HEAD: Normal with no signs of head trauma. EYES: EOMI, conjunctiva normal ENT: Hearing grossly intact LUNGS: Nonlabored breathing. Diminished breath sounds/crackles bilateral HEART: [Regular rate and rhythm] ABD: [Soft], [nontender to palpation] EXT: Normal range of motion SKIN: 6 cm laceration across right knee with exposed subcutaneous fat. NEURO: [Alert. No gross focal sensory or strength deficits.] PSYCH: Normal affect Course Vital Signs Vital signs: Vital Signs Temperature 98 F 08/17/25 06:14 Pulse Rate 74 08/17/25 06:14 Respiratory Rate 17 08/17/25 06:14 Blood Pressure 133/69 08/17/25 06:14 Pulse Oximetry 95 08/17/25 06:14 Oxygen Delivery Nasal Cannula 08/17/25 06:14 Oxygen Flow Rate 3 08/17/25 06:14 Temperature 98.0 F 08/17/25 10:07 Pulse Rate 66 08/17/25 10:07 Respiratory Rate 23 H 08/17/25 10:07 Blood Pressure 120/67 08/17/25 10:07 Pulse Oximetry 100 08/17/25 10:07 Oxygen Delivery BiPAP 08/17/25 09:47 Oxygen Flow Rate 3 08/17/25 07:25 Procedures Laceration Laceration 1: Date: 08/17/25 Time: 10:57 Site: lower extremity Side (If applicable): right Size (cm): 6 Description: linear Depth: simple, single layer Local Anesthetic: lidocaine 1% Amount of anesthesia used (mL): 5 Pre-repair: wound explored, irrigated and deep structures intact ====== Skin Level ====== Skin layer closed with: vicryl and steri strips Size (cm): 3-0 Number of sutures: 6 Technique: simple, interrupted ====== Subcutaneous Layer ====== ====== Muscle Layer ====== ====== Tendon Layer ====== MDM MDM Narrative Medical decision making narrative: Patient presenting with fall, she is wheelchair-bound at assisted living, with history of COPD and CHF on oxygen, however the last 2 days has had increasing shortness of breath, to the point where she has had to sleep in her wheelchair; this morning she fell out of bed and landed on her knees, did not hit her head, but she did skin her knees. 1) Differential diagnosis: CHF, COPD, pneumonia, etc. 2) Comorbidities: COPD, CHF 3) External notes reviewed: Prior admission note 4) History sources independently obtained from: Daughter at bedside 5) Discussion of management with: Hospitalist 6) Independent interpretation of: ABG: No acidosis, elevated pCO2 likely chronic 7) Diagnostic tests or therapies considered but not ordered: n/a 8) Social determinants of health: At assisted living facility where she feels she does not get adequate care 9) Shared decision making: Given her increased shortness of breath causing inability to sleep, discussed admission here to hopefully help elucidate cause of symptoms, which may be from pneumonia for which I will start antibiotics or possible CHF though there is not overwhelming amount of fluid and BNP not too high. Her laceration on her right knee is cleaned and irrigated, is quite long with subcutaneous fat exposed, her skin is super thin, so I did hold together with Steri-Strips then sewed over the Steri-Strips to hold everything together. Tetanus updated. Discussed with hospitalist for admission. Differential Diagnosis Differential Diagnosis: CHF, COPD, pneumonia, etc. Lab Data 08/17/25 06:44 08/17/25 06:44 Labs: Lab Results 08/17/25 08/17/25 Range/Units 06:44 08:59 WBC 8.3 (4.5-10.0) K/mm3 RBC 3.92 L (4.2-5.4) M/mm3 Hgb 11.3 L (12.0-15.0) g/dL Hct 37.5 (37.0-47.0) % MCV 95.7 (80-100) fl MCH 28.8 (26-34) pg MCHC 30.1 L (32-36) g/dl RDW 14.5 (11.5-14.5) % Plt Count 302 (150-375) k/mm3 MPV 9.4 (7.4-10.4) fl Immature Gran % (Auto) 0.5 (0-0.5) % Neut % (Auto) 69.6 (45.5-73.1) % Lymph % (Auto) 14.5 L (18.3-44.2) % Villalba % (Auto) 10.4 H (2.6-8.5) % Eos % (Auto) 4.5 H (0-4.4) % Baso % (Auto) 0.5 (0.2-1.2) % Lymph # (Auto) 1.20 (0.9-3.2) K/mm3 Villalba # (Auto) 0.9 H (0.1-0.6) K/mm3 Eos # (Auto) 0.4 H (0-0.3) K/mm3 Baso # (Auto) 0.0 (0.0-0.1) K/mm3 Abs Immat Gran (auto) 0.04 H (0.00-0.031) K/mm3 Absolute Neuts (auto) 5.8 (1.3-6.7) K/mm3 Absolute Nucleated RBC 0.000 (0.0-0.012) K/mm3 Nucleated RBC % 0.0 (0.0-0.2) % Methemoglobin 0.3 (0-1.5) %THb Sodium 141 (137-145) mmol/L Potassium 3.8 (3.4-5.0) mmol/L Chloride 98 (98-107) mmol/L Carbon Dioxide > 40 H (22-30) mmol/L Anion Gap (4-12) mmol/L BUN 24 H (7-17) mg/dL Creatinine 1.22 H (0.7-1.0) mg/dL Estim Creat Clear Calc Not Reportable Estimated GFR 43 L (59 - ) Glucose 90 (65-110) mg/dL Lactic Acid 1.0 (0.7-2.0) mmol/L Calcium 9.1 (8.4-10.2) mg/dL Total Bilirubin 0.4 (0.2-1.3) mg/dL AST 26 (14-36) U/L ALT 19 (6-35) U/L Alkaline Phosphatase 74 (38-126) U/L NT-Pro-B Natriuret Pep 729 H (19.9-100) pg/mL Total Protein 6.9 (6.3-8.2) g/dL Albumin 3.8 (3.5-5.1) g/dL ABG Data ABG results: 08/17/25 08:59 Puncture Site Right radial ABG pH 7.397 ABG pCO2 63.0 H* ABG pO2 79.0 L ABG PO2/FiO2 Ratio 2.47 ABG HCO3 37.9 H ABG O2 Saturation 95.3 ABG O2 Content 16.4 ABG Base Excess 10.8 A-a Gradient 75.5 Oxyhemoglobin 95.0 Carboxyhemoglobin 0.8 Reduced Hemoglobin 3.9 Total Hemoglobin 12.2 O2 Delivery Device Nasal cannula O2 Liters/Min 3.0 FiO2 32 Imaging Data Radiologist's impression: ITS Impressions Chest X-Ray 08/17/25 07:42 IMPRESSION: 1. Suspect mild persistent right basilar airspace disease. Discharge Plan Discharge Clinical Impression: Fall, Laceration, Shortness of breath Patient Disposition: Still a Patient Condition: Stable
[2025-08-17] MEDS: Please enter patient height and weight for medication dosing XX (12:03)
[2025-08-17] MEDS: ENOXAPARIN 40 MG/0.4 ML SYRINGE SUB-Q (12:06)
[2025-08-17] MEDS: FUROSEMIDE INJ 40 MG/4 ML VIAL IV PUSH ×2 (12:06→18:08)
--- NOTE | 2025-08-17 12:30 | PM.CNCAR ---
Assessment and Plan Assessment and plan (1) Shortness of breath: Code(s): R06.02 - Shortness of breath Status: Acute Assessment and Plan: Differential includes COPD exac, pneumonia, pulm embolism, and less likely CHF given insignificant NTproBNP at 729 and CXR without CHF findings. (2) Combined systolic and diastolic cardiac dysfunction: Code(s): I51.89 - Other ill-defined heart diseases Status: Acute Assessment and Plan: Mild and stable. (3) Chronic obstructive pulmonary disease: Qualifiers: COPD type: COPD with acute exacerbation Qualified Code(s): J44.1 - Chronic obstructive pulmonary disease with (acute) exacerbation Code(s): J44.9 - Chronic obstructive pulmonary disease, unspecified Status: Acute Assessment and Plan: On CPAP now. Was seen by Dr. Nava last admission. (4) Edema of both legs: Code(s): R60.0 - Localized edema Status: Acute Assessment and Plan: Due to venous insufficiency. 08/01/25 Venous duplex: No DVT of both legs. On home Lasix 40 mg PO BID and Spironolactone 25 mg daily. Restrict fluid to 1.5 l/day and wear compression stockings during the day and keep elevated while seated. Started Lasix 40 mg IV BID for now. History of Present Illness History of Present Illness Consult date/time: 08/17/25 12:30 Reason For Visit: Pneumonia/CHF Exacerbation/ Acute Hypoxic Resp Erick Narrative: 75 yr old woman who is my regular cardiology patient presents to ER with sob. She has a history of stroke with residual right sided weakness in 2014, systolic and diastolic dysfunction, COPD, dyslipidemia, pulmonary embolism. She was admitted a few weeks ago for pneumonia. States she was sob for last few days and came to ER. She has mod bilateral edema of legs. She has been wheelchair bound since her stroke and can walk with assistance very short distance due to weakness. Denies chest pain, orthopnea, palpitations, dizziness. Previously, she had injuries to both legs from trauma from her wheelchair that had to be cushioned. She got left leg lanced to remove some hematoma. Review of Systems Review of Systems: All systems reviewed & are unremarkable except as noted in HPI and below Constitutional: Constitutional: Reports as per HPI, Denies chills and Denies fever(s) Cardiovascular: Cardiovascular: Reports as per HPI, Denies chest pain and Denies irregular heart rhythm Respiratory: Respiratory: Reports as per HPI, Reports dyspnea and Reports wheezing Gastrointestinal: Gastrointestinal: Reports as per HPI and Denies abdominal pain Genitourinary: Genitourinary: Reports as per HPI and Denies dysuria Musculoskeletal: Musculoskeletal: Reports as per HPI Neurologic: Reports as per HPI, Denies dizziness and Denies syncope [facility] Past Medical History Medical History Chronic respiratory failure with hypoxia, on home oxygen therapy 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 Chronic obstructive pulmonary disease Chronic kidney disease, stage 3 Pulmonary embolism (11/2021) Small cell lung cancer Status post chemoradiotherapy. Dyslipidemia Diastolic dysfunction Surgical History Surgical History History of incisional hernia repair History of inguinal hernia repair History of heart artery stent History of cardiac catheterization History of left nephrectomy At age 3, done for unclear reasons. History of abdominal aortic aneurysm repair Family History Family History Sibling Family history of arthritis Lung transplant status, bilateral COPD (chronic obstructive pulmonary disease) Colon cancer Father Melanoma Mother No problems noted. Social History Social History Social History: [id number]: Isabela Ponce, friend. Code status: Full code. Smoking packs per day: 1 Smoking cigarettes per day: 20.0 Years smoked: 40 Smoking pack-years: 40.00 Smoking status: Former smoker Tobacco type: cigarettes Second hand tobacco smoke exposure: No Smoking end date: 09/14/05 Alcohol intake: never Alcohol use details: No alcohol since 2005. Substance use: former Substance use type: does not use Other substance usage details: one pack per day for 40 years Lack of Transportation: No Lack of Food: Never True Current Housing: I Have Housing Concerned About Future Housing: No Difficulty Paying Gas/Electric Bills: No Difficulty Paying for Meds: No Currently Unemployed: No Education: High School Diploma/GED Difficulty w/ Childcare or Family Care: No Additional living arrangements comments: Lives in assisted living. Wheelchair-bound due to right-sided deficits from prior CVA. Spiritual care concerns: No Meds Home Medications and Allergies Home Medications ?Medication ?Instructions ?Recorded ?Confirmed ?Type acetaminophen 500 mg capsule 500 mg PO Q6H PRN Pain (Scale 11/24/19 07/30/25 History Score 1-3) aspirin 81 mg tablet,delayed 81 mg PO DAILY 11/24/19 07/30/25 History release (Adult Aspirin Regimen) atorvastatin 40 mg tablet 40 mg PO HS 11/24/19 07/30/25 History levetiracetam 250 mg tablet 250 mg PO Q12H 11/24/19 07/30/25 History (Keppra) melatonin 5 mg capsule 5 mg PO HS 11/24/19 07/30/25 History potassium chloride 20 mEq 20 meq PO BID 11/24/19 07/30/25 History tablet,extended release multivitamin with folic acid 400 1 tablet PO DAILY 03/10/22 07/30/25 History mcg tablet (Daily-Annie (with folic acid)) pantoprazole 40 mg tablet,delayed 40 mg PO QAM #30 tabs 05/06/22 07/30/25 Rx release comp.stocking,knee,long,medium #12 ea 06/02/22 07/30/25 Rx furosemide 40 mg tablet (Lasix) 40 mg PO BID #60 tabs 06/02/22 07/30/25 Rx alprazolam 0.5 mg tablet 0.5 mg PO Q8-12H PRN Anxiety 06/29/23 07/30/25 History ferrous sulfate 325 mg (65 mg 325 mg PO TID 12/02/23 07/30/25 History iron) tablet Advair HFA 230 mcg-21 See Rx Instructions .Route 05/23/25 07/30/25 Rx mcg/actuation aerosol inhaler .COMPLEX #12 grams (fluticasone propion-salmeterol) albuterol sulfate 90 mcg/actuation 2 puff inhalation Q6H PRN 07/06/25 07/30/25 Rx aerosol inhaler shortness of breath or wheezing #8.5 grams escitalopram oxalate 10 mg tablet 10 mg PO DAILY 07/18/25 07/30/25 History levocetirizine 5 mg tablet 5 mg PO QPM 07/18/25 07/30/25 History ropinirole 2 mg tablet 1 mg PO TID 07/18/25 07/30/25 History ergocalciferol (vitamin D2) 1,250 1,250 mcg PO WEEKLY 07/30/25 07/30/25 History mcg (50,000 unit) capsule (Vitamin D2) gabapentin 300 mg capsule 300 mg PO TID 07/30/25 07/30/25 History spironolactone 25 mg tablet 25 mg PO DAILY 07/30/25 07/30/25 History (Aldactone) umeclidinium 62.5 mcg/actuation See Rx Instructions .Route 07/31/25 Rx blister powder for inhalation .COMPLEX #30 grams (Incruse Ellipta) amoxicillin 875 mg-potassium 1 tablet PO Q12H 5 days #10 tabs 08/04/25 Rx clavulanate 125 mg tablet guaifenesin 600 mg tablet, 600 mg PO Q12HR #30 tabs 08/04/25 Rx extended release 12 hr (Mucus Relief ER) mucus clearing device #10 ea 08/04/25 Rx Allergies Allergy/AdvReac Type Severity Reaction Status Date / Time Iodinated Contrast Media Allergy Unknown Rash Verified 07/30/25 17:36 latex Allergy Unknown Unknown Verified 07/30/25 17:36 adhesive tape AdvReac Rash Verified 07/30/25 17:36 nickel AdvReac Rash Verified 07/30/25 17:36 Vital Signs Vital Signs - 24 hr 08/17/25 06:14 08/17/25 06:33 08/17/25 07:23 Temperature 98 F Pulse Rate 74 59 L Respiratory Rate 17 Blood Pressure 133/69 Pulse Oximetry 95 98 Oxygen Delivery Nasal Cannula Nasal Cannula Oxygen Flow Rate 3 3 08/17/25 07:25 08/17/25 08:55 08/17/25 09:47 Temperature Pulse Rate 84 Respiratory Rate 20 21 H Blood Pressure Pulse Oximetry 100 100 Oxygen Delivery Nasal Cannula BiPAP Oxygen Flow Rate 3 08/17/25 10:07 08/17/25 10:52 08/17/25 12:02 Temperature 98.0 F 97.4 F L Pulse Rate 66 73 63 Respiratory Rate 23 H 18 21 H Blood Pressure 120/67 136/66 Pulse Oximetry 100 100 100 Oxygen Delivery BiPAP Oxygen Flow Rate Exam Const: General: cooperative, healthy appearing and comfortable Resp: Auscultation: no crackles, wheezes and diminished lung sounds Cardio: Rate: regular rate Rhythm: regular rhythm Heart sounds: no murmurs Peripheral pulses: dorsalis pedis present GI: GI Palp: No abdominal tenderness and Yes Soft to palpation Neuro: General: oriented to person, oriented to place and oriented to time Extrem: Right lower extremity: edema Left lower extremity: edema Other: Moderate-severe edema of both legs Results Labs and Meds 08/17/25 06:44 08/17/25 06:44 Lab results: Cardiac Enzymes 08/17/25 Range/Units 06:44 AST 26 (14-36) U/L CBC 08/17/25 Range/Units 06:44 WBC 8.3 (4.5-10.0) K/mm3 RBC 3.92 L (4.2-5.4) M/mm3 Hgb 11.3 L (12.0-15.0) g/dL Hct 37.5 (37.0-47.0) % Plt Count 302 (150-375) k/mm3 Lymph # (Auto) 1.20 (0.9-3.2) K/mm3 Dane # (Auto) 0.9 H (0.1-0.6) K/mm3 Eos # (Auto) 0.4 H (0-0.3) K/mm3 Baso # (Auto) 0.0 (0.0-0.1) K/mm3 Comprehensive Metabolic Panel 08/17/25 Range/Units 06:44 Sodium 141 (137-145) mmol/L Potassium 3.8 (3.4-5.0) mmol/L Chloride 98 (98-107) mmol/L Carbon Dioxide > 40 H (22-30) mmol/L BUN 24 H (7-17) mg/dL Creatinine 1.22 H (0.7-1.0) mg/dL Glucose 90 (65-110) mg/dL Calcium 9.1 (8.4-10.2) mg/dL AST 26 (14-36) U/L ALT 19 (6-35) U/L Alkaline Phosphatase 74 (38-126) U/L Total Protein 6.9 (6.3-8.2) g/dL Albumin 3.8 (3.5-5.1) g/dL Intake and Output 08/16/25 08/17/25 08/17/25 23:59 07:59 15:59 Intake Total 50 Balance 50 Intake: IV 50 cefTRIAXone 1 gm In Sodium 50 Chloride 0.9% IV 50 ml @ 100 mls/hr IVPB ONCE STA Rx#: [id number] Patient Weight 08/17/25 23:59 Weight 72 kg
--- NOTE | 2025-08-17 13:27 | PM.IMHP2 ---
H&P: HPI History of Present Illness Date/Time: 08/17/25 10:27 Chief Complaint: Shortness of breath, leg edema, fall out of wheelchair. presenting with fall, she is wheelchair-bound at assisted living, with history of COPD and CHF on oxygen, however the last 2 days has had increasing shortness of breath, to the point where she has had to sleep in her wheelchair; this morning she fell out of bed and landed on her knees, did not hit her head, but she did skin her knees. Narrative: This is a 75 y/o female patient with medical history of CHF - EF of 40-45% left diastolic dysfunction, GERD, RLS, neuropathy, iron def anemia, hyperlipidemia, CVA, COPD on O2 @ 2 l, Small Valery Lung Cancer, HTN, seizures, that presented to the ER this am with reports of falling out of her wheel chair. Patient is wheelchair-bound at assisted living, and reports she slipped out of the chair onto her knees. patient had no LOC, no other injury, no injury to head. Patient had skin tear to the right knee on arrival. patient also reports the last 2 days has had increasing shortness of breath, to the point where she has had to sleep in her wheelchair. Patient was recently admitted to this hospital 07/30/25 - 08/04/25 for Acute COPD, chronic hypercapnic and hypoxic resp failure, Right middle lobe PNE, CHF with elevated BNP. Patient was instructed at that time to continue outpatient ATB, lasix, Oxygen at 2 liters with BiPap at night and while napping - rate of 14, tidal volume 500, EPAP minimum 5 max 15, pressure support minimum 10 max 25 with 3 liter bleed. patient admits she has not been compliant with her BiPap. She does see Dr Quiroz for pulmonology. She denies cough, fever, chills, headache, chest pain or distress. Patient states she had to sleep in her wheel chair the lasts two days due to shortness of breath. vital signs on arrival noted temp 98, pulse 74, resp 17, b/p - 133/69, oxygen sat 95% on 3 liters per nasal canula. ER workup noted white blood cell count 8.3, hemoglobin 11.3 hematocrit 37.5, platelets 302. PH 7.397, pCO2 63, PO2 79, bicarb 37.9, oxygen saturation 95.3. Sodium 141 potassium 3.9 carbon dioxide greater than 40, BUN 24 creatinine 1.22, GFR 43. Lactic acid 1.0. BNP 729. Patient was placed on BiPAP in the emergency department. Given her increased shortness of breath causing inability to sleep, increased BNP, will admit to hospital on BiPap. Consult Pharmacognosist and Pulmonolgy. Patient was started on IVPB Rocephin and Azithromycin for PNE. Will start IV lasix for CHF though there is not overwhelming amount of fluid and BNP not too high. Her laceration on her right knee is cleaned and irrigated, is quite long with subcutaneous fat exposed, her skin is super thin, held together with Steri-Strips then sewed over the Steri-Strips to hold everything together by ER . Tetanus updated. 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 Chronic obstructive pulmonary disease Chronic kidney disease, stage 3 Pulmonary embolism (11/2021) Small cell lung cancer Status post chemoradiotherapy. Dyslipidemia Diastolic dysfunction Surgical History Surgical History History of incisional hernia repair History of inguinal hernia repair History of heart artery stent History of cardiac catheterization History of left nephrectomy At age 3, done for unclear reasons. History of abdominal aortic aneurysm repair Family History Family History Sibling Family history of arthritis Lung transplant status, bilateral COPD (chronic obstructive pulmonary disease) Colon cancer Father Melanoma Mother No problems noted. Social History Social History Social History: [id number]: Isabela Ponce, friend. Code status: Full code. Smoking packs per day: 1 Smoking cigarettes per day: 20.0 Years smoked: 30 Smoking pack-years: 30.00 Smoking status: Former smoker Tobacco type: cigarettes Second hand tobacco smoke exposure: No Smoking end date: 09/14/05 Alcohol intake: never Alcohol use details: No alcohol since 2005. Substance use: never Substance use type: does not use Other substance usage details: one pack per day for 40 years Lack of Transportation: No Lack of Food: Never True Current Housing: I Have Housing Concerned About Future Housing: No Difficulty Paying Gas/Electric Bills: No Difficulty Paying for Meds: No Currently Unemployed: No Education: High School Diploma/GED Difficulty w/ Childcare or Family Care: No Additional living arrangements comments: Lives in assisted living. Wheelchair-bound due to right-sided deficits from prior CVA. Spiritual care concerns: No Meds Home Medications and Allergies Home Medications ?Medication ?Instructions ?Recorded ?Confirmed ?Type acetaminophen 500 mg capsule 500 mg PO Q6H PRN Pain (Scale 11/24/19 08/17/25 History Score 1-3) aspirin 81 mg tablet,delayed 81 mg PO DAILY 11/24/19 08/17/25 History release (Adult Aspirin Regimen) atorvastatin 40 mg tablet 40 mg PO HS 11/24/19 08/17/25 History levetiracetam 250 mg tablet 250 mg PO Q12H 11/24/19 08/17/25 History (Keppra) melatonin 5 mg capsule 5 mg PO HS 11/24/19 08/17/25 History potassium chloride 20 mEq 20 meq PO BID 11/24/19 08/17/25 History tablet,extended release multivitamin with folic acid 400 1 tablet PO DAILY 03/10/22 08/17/25 History mcg tablet (Daily-Annie (with folic acid)) pantoprazole 40 mg tablet,delayed 40 mg PO QAM #30 tabs 05/06/22 08/17/25 Rx release comp.stocking,knee,long,medium #12 ea 06/02/22 07/30/25 Rx furosemide 40 mg tablet (Lasix) 40 mg PO BID #60 tabs 06/02/22 08/17/25 Rx alprazolam 0.5 mg tablet 0.5 mg PO Q8-12H PRN Anxiety 06/29/23 08/17/25 History ferrous sulfate 325 mg (65 mg 325 mg PO TID 12/02/23 08/17/25 History iron) tablet Advair HFA 230 mcg-21 See Rx Instructions .Route 05/23/25 08/17/25 Rx mcg/actuation aerosol inhaler .COMPLEX #12 grams (fluticasone propion-salmeterol) albuterol sulfate 90 mcg/actuation 2 puff inhalation Q6H PRN 07/06/25 08/17/25 Rx aerosol inhaler shortness of breath or wheezing #8.5 grams escitalopram oxalate 10 mg tablet 10 mg PO DAILY 07/18/25 08/17/25 History levocetirizine 5 mg tablet 5 mg PO QPM 07/18/25 08/17/25 History ropinirole 2 mg tablet 1 mg PO TID 07/18/25 08/17/25 History ergocalciferol (vitamin D2) 1,250 1,250 mcg PO WEEKLY 07/30/25 08/17/25 History mcg (50,000 unit) capsule (Vitamin D2) gabapentin 300 mg capsule 300 mg PO TID 07/30/25 08/17/25 History spironolactone 25 mg tablet 25 mg PO DAILY 07/30/25 08/17/25 History (Aldactone) umeclidinium 62.5 mcg/actuation See Rx Instructions .Route 07/31/25 08/17/25 Rx blister powder for inhalation .COMPLEX #30 grams (Incruse Ellipta) mucus clearing device #10 ea 08/04/25 Rx guaifenesin 400 mg tablet (Mucus 400 mg PO DAILY 08/17/25 08/17/25 History Relief) Allergies Allergy/AdvReac Type Severity Reaction Status Date / Time Iodinated Contrast Media Allergy Unknown Rash Verified 08/17/25 13:55 latex Allergy Unknown Unknown Verified 08/17/25 13:55 adhesive tape AdvReac Rash Verified 08/17/25 13:55 nickel AdvReac Rash Verified 08/17/25 13:55 Vital Signs Vital Signs - 24 hr 08/17/25 06:14 08/17/25 06:33 08/17/25 07:13 Temperature 98 F Pulse Rate 74 68 Respiratory Rate 17 22 H Blood Pressure 133/69 Pulse Oximetry 95 98 100 Oxygen Delivery Nasal Cannula Nasal Cannula Oxygen Flow Rate 3 3 08/17/25 07:16 08/17/25 07:18 08/17/25 07:23 Temperature Pulse Rate 59 L 58 L 59 L Respiratory Rate 14 19 Blood Pressure 136/69 Pulse Oximetry 100 100 Oxygen Delivery Oxygen Flow Rate 08/17/25 07:25 08/17/25 07:34 08/17/25 07:49 Temperature Pulse Rate 73 59 L Respiratory Rate 21 H 19 Blood Pressure 186/141 H Pulse Oximetry 100 Oxygen Delivery Nasal Cannula Oxygen Flow Rate 3 08/17/25 08:01 08/17/25 08:18 08/17/25 08:30 Temperature Pulse Rate 61 56 L 57 L Respiratory Rate 18 18 16 Blood Pressure Pulse Oximetry Oxygen Delivery Oxygen Flow Rate 08/17/25 08:46 08/17/25 08:55 08/17/25 09:05 Temperature Pulse Rate 80 84 Respiratory Rate 23 H 20 Blood Pressure Pulse Oximetry 100 Oxygen Delivery Oxygen Flow Rate 08/17/25 09:15 08/17/25 09:44 08/17/25 09:45 Temperature Pulse Rate Respiratory Rate Blood Pressure Pulse Oximetry 100 100 100 Oxygen Delivery Oxygen Flow Rate 08/17/25 09:47 08/17/25 10:00 08/17/25 10:07 Temperature 98.0 F Pulse Rate 66 Respiratory Rate 21 H 23 H Blood Pressure 120/67 Pulse Oximetry 100 100 100 Oxygen Delivery BiPAP Oxygen Flow Rate 08/17/25 10:07 08/17/25 10:15 08/17/25 10:30 Temperature Pulse Rate 62 68 Respiratory Rate 16 21 H Blood Pressure 120/67 Pulse Oximetry 100 100 100 Oxygen Delivery Oxygen Flow Rate 08/17/25 10:46 08/17/25 10:52 08/17/25 11:00 Temperature 97.4 F L Pulse Rate 77 73 61 Respiratory Rate 24 H 18 16 Blood Pressure Pulse Oximetry 100 100 Oxygen Delivery Oxygen Flow Rate 08/17/25 11:19 08/17/25 11:30 08/17/25 11:45 Temperature Pulse Rate 62 62 83 Respiratory Rate 17 19 18 Blood Pressure Pulse Oximetry 100 100 92 Oxygen Delivery Oxygen Flow Rate 08/17/25 11:59 08/17/25 12:00 08/17/25 12:01 Temperature Pulse Rate 62 61 67 Respiratory Rate 16 14 16 Blood Pressure 130/66 136/66 Pulse Oximetry 96 100 99 Oxygen Delivery Oxygen Flow Rate 08/17/25 12:02 08/17/25 12:10 08/17/25 12:15 Temperature Pulse Rate 63 69 Respiratory Rate 21 H 21 H 17 Blood Pressure 136/66 Pulse Oximetry 100 100 100 Oxygen Delivery BiPAP BiPAP Oxygen Flow Rate 08/17/25 13:07 Temperature Pulse Rate 64 Respiratory Rate 15 Blood Pressure 120/56 L Pulse Oximetry 100 Oxygen Delivery Oxygen Flow Rate Exam Const: General: comfortable HENMT: Face/Nose/Sinus: Normal nares present Mouth: Yes moist mucous membranes Eyes: General: appearance normal, both eyes and all related structures Pupils: Equal, round and reactive pupils present EOM: EOMs intact bilaterally Neck: Neck: supple Thyroid: thyroid normal Resp: Effort & Inspection: normal respiratory effort (on BiPap at this time. ) Auscultation: rhonchi left upper and right upper and diminished lung sounds bilateral in the lower lung cristina Cardio: Jugular venous distension: no JVD Rate: regular rate Rhythm: regular rhythm Heart sounds: S1 normal heart sound present and S2 normal heart sound present GI: GI Palp: Yes Soft to palpation Auscultation: normal bowel sounds : General: Yes bladder normal to palpation Skin: General skin exam: erythema (to the bilateral lower extremities, worse on left than right) Trauma: abrasion (left anterior knee) and laceration right anterior knee Wounds: wounds noted (right knee, laceration with steristrip/suture.) laceration right anterior knee , abrasion to left knee, scabbed. Neuro: Motor exam (neuro): Abnormal motor strength present (generalized weakness) Extrem: General: pedal edema bilaterally pitting and 1+ Psych: Mental Status: mental status grossly normal Affect: normal affect Results Labs Labs: Short CBC 08/17/25 Range/Units 06:44 WBC 8.3 (4.5-10.0) K/mm3 Hgb 11.3 L (12.0-15.0) g/dL Hct 37.5 (37.0-47.0) % Plt Count 302 (150-375) k/mm3 BMP 08/17/25 06:44 Sodium 141 Potassium 3.8 Chloride 98 Carbon Dioxide > 40 H BUN 24 H Creatinine 1.22 H Glucose 90 Calcium 9.1 Liver Function 08/17/25 Range/Units 06:44 Total Bilirubin 0.4 (0.2-1.3) mg/dL AST 26 (14-36) U/L ALT 19 (6-35) U/L Alkaline Phosphatase 74 (38-126) U/L Albumin 3.8 (3.5-5.1) g/dL Attestation: I personally reviewed all lab results ABG ABG results: 08/17/25 08:59 Puncture Site Right radial ABG pH 7.397 ABG pCO2 63.0 H* ABG pO2 79.0 L ABG PO2/FiO2 Ratio 2.47 ABG HCO3 37.9 H ABG O2 Saturation 95.3 ABG O2 Content 16.4 ABG Base Excess 10.8 A-a Gradient 75.5 Oxyhemoglobin 95.0 Carboxyhemoglobin 0.8 Reduced Hemoglobin 3.9 Total Hemoglobin 12.2 O2 Delivery Device Nasal cannula O2 Liters/Min 3.0 FiO2 32 Attestation: I personally reviewed and interpreted this ABG as follows: Imaging Chest x-ray: Attestation: I personally reviewed this imaging study Radiologist's impression: Chest X-Ray 08/17/25 07:42 IMPRESSION: 1. Suspect mild persistent right basilar airspace disease. Quality VTE Prophylaxis VTE prophylaxis: pharmacologic ordered Assessment and Plan Assessment and plan (1) Acute hypercapnic respiratory failure: Code(s): J96.02 - Acute respiratory failure with hypercapnia Status: Acute Assessment and Plan: - has history of gold grade 4, history of alpha-1 antitrypsin genotype mm - PH 7.397, pCO2 63, PO2 79, bicarb 37.9, oxygen saturation 95.3. - Consult to pulmonology for consideration and further management - BiPap per settings - continue oxygen per protocol. - Repeat ABGs in AM - monitor closely (2) Acute exacerbation of chronic obstructive pulmonary disease: Code(s): J44.1 - Chronic obstructive pulmonary disease with (acute) exacerbation Status: Acute Assessment and Plan: - will continue solumedrol - consulted Pulmonolgy - oxygen per protocol - Duonebs QID - quaifenesin for cough (3) Bilateral pneumonia: Qualifiers: Lung location: lower lobe of lung Pneumonia type: due to unspecified organism Qualified Code(s): J18.9 - Pneumonia, unspecified organism Code(s): J18.9 - Pneumonia, unspecified organism Status: Acute Assessment and Plan: - will continue IVPB rocephin and Azithromycin - first doses in ER - monitor labs (4) Diastolic CHF: Qualifiers: Heart failure chronicity: unspecified Qualified Code(s): I50.30 - Unspecified diastolic (congestive) heart failure Code(s): I50.30 - Unspecified diastolic (congestive) heart failure Status: Chronic Assessment and Plan: - echocardiogram shows 40-45% left ventricular diastolic dysfunction - BNP 729 - continue lasix BID - Consulted Cardiology - continue home medications (5) Laceration: Status: Acute Assessment and Plan: ER provider cleansed, applied Steri-Strips then sewed over the Steri-Strips to hold everything together. Tetanus updated. (6) CKD (chronic kidney disease) stage 3, GFR 30-59 ml/min: Qualifiers: Chronic kidney disease stage 3 subtype: unspecified whether 3a or 3b Qualified Code(s): N18.30 - Chronic kidney disease, stage 3 unspecified Code(s): N18.30 - Chronic kidney disease, stage 3 unspecified Status: Acute Assessment and Plan: - BUN 24, creat 1.22 - with IV lasix, will monitor BMP dialy (7) Iron deficiency anemia: Code(s): D50.9 - Iron deficiency anemia, unspecified Status: Acute Assessment and Plan: Hemoglobin currently stable at 11.3 hematocrit 37.5 will monitor closely (8) Hypertension: Qualifiers: Hypertension type: primary hypertension Qualified Code(s): I10 - Essential (primary) hypertension Code(s): I10 - Essential (primary) hypertension Status: Chronic Assessment and Plan: Continue medications monitor vital signs (9) Dyslipidemia: Code(s): E78.5 - Hyperlipidemia, unspecified Status: Acute Assessment and Plan: continue home medications (10) Seizure disorder: Code(s): G40.909 - Epilepsy, unspecified, not intractable, without status epilepticus Status: Chronic Assessment and Plan: continue keppra monitor (11) Weakness: Code(s): R53.1 - Weakness Status: Acute Assessment and Plan: PT and OT to evaluate patient Plan -code status -full code DVT - lovenox subq disposition - will continue to monitor patient closely, once stable will discharge back to assisted living vs rehab stay. Will work with discharge planning for discharge. Prior Studies I have reviewed the following patient records and this information was taken into consideration when formulating the assessment and plan.: previous labs Consultations Consultations: I have discussed the care of this pt with the consulting providers. Time Spent with Patient Time with patient: 75 minutes or greater Hospitalist MIPS Advance Care Plan I have confirmed that the patient's Advanced Care Plan is present, code status is documented, or surrogate decision maker is listed in patient medical record.: Yes Medication Reconciliation I have utilized all available resources to obtain, update and review the patients current medications (includes all prescriptions, OTC, herbals, cannabis, and nutritional supplements).: Yes
--- NOTE | 2025-08-17 13:54 | ADMGEN ---
This patient, Teresa Levi, was admitted to [facility]. Patient/family oriented to hospital policies and general routines including ID bracelet, bed and alarms, visiting hours, pain management, procedures, bathroom and other care routines, personal items, smoking policy, room service/diet, and visiting hours. Information on how to activate the Rapid Response Team has been discussed. Patient/Family are encouraged to report perceived risks to care and to ask questions if they do not understand what they are told or what they should do. Patient currently boarding in ER.
--- NOTE | 2025-08-17 15:52 | WPCEDHO ---
ED Hand Off Checklist All vitals saved:yes IV Site documented:yes All med administrations documented:yes Triage Note Triage Note Pt BIBEMS from [place] of 08/17/25 06:14 [place]. Pt fell asleep in her wheelchair and slipped out of it this morning. Pt has several skin tears to both knees. Pt has oxygen on that she wears 2 L with activity. Allergies Iodinated Contrast Media Allergy (Unknown, Verified 08/17/25 13:55) Rash latex Allergy (Unknown, Verified 08/17/25 13:55) Unknown skin reaction adhesive tape Adverse Reaction (Verified 08/17/25 13:55) Rash nickel Adverse Reaction (Verified 08/17/25 13:55) Rash Current Diagnoses Iron deficiency anemia, unspecified (08/17/25) Hyperlipidemia, unspecified (08/17/25) Epilepsy, unspecified, not intractable, without status epilepticus (08/17/25) Essential (primary) hypertension (08/17/25) Unspecified diastolic (congestive) heart failure (08/17/25) Other ill-defined heart diseases (08/17/25) Pneumonia, unspecified organism (08/17/25) Chronic obstructive pulmonary disease with (acute) exacerbation (08/17/25) Acute respiratory failure with hypercapnia (08/17/25) Chronic kidney disease, stage 3 unspecified (08/17/25) Shortness of breath (08/17/25) Weakness (08/17/25) Localized edema (08/17/25) Family History (Last Reviewed 08/17/25 @ 13:58 by Evon Baker RN) Sibling Family history of arthritis Lung transplant status, bilateral COPD (chronic obstructive pulmonary disease) Colon cancer Father Melanoma Mother No problems noted. Active Medications including assessments/comments Enoxaparin Sodium (Enoxaparin 40 Mg/0.4 Ml Syringe) 40 mg SUB-Q DAILY [facility] Last Admin: 08/17/25 12:06 Dose: 40 mg Documented By: ALAINA Sub Q Injection Site Document 08/17/25 12:06 ALAINA (Rec: 08/17/25 12:06 ALAINA [id number]) Sub Q Injection Site Sub Q Injection Site Abdomen, Left Furosemide (Furosemide Inj 40 Mg/4 Ml Vial) 40 mg IV PUSH BID JESSIE Last Admin: 08/17/25 12:06 Dose: 40 mg Documented By: ALAINA Miscellaneous Information (Please Enter Patient Height And Weight For Medication Dosing) 0 each XX CLARIFY JESSIE Stop: 09/16/25 00:00 Last Admin: 08/17/25 12:03 Dose: 1 each Documented By: ALAINA Administered/Completed Medications Discontinued Medications Albuterol/Ipratropium (Ipratropium 0.5 Mg/Albuterol Sulfate 2.5 Mg (Base) Ampul.Neb 3 Ml) 3 ml INHALATION ONCE STA Stop: 08/17/25 08:42 Last Admin: 08/17/25 08:55 Dose: 3 ml Documented By: ROXANN Azithromycin (Azithromycin 500 Mg Tablet) 500 mg PO ONCE STA Stop: 08/17/25 09:31 Last Admin: 08/17/25 10:08 Dose: 500 mg Documented By: ALAINA Diphtheria/Tetanus/Acell Pertussis (Tetanus,Diphtheria,Ac Pertussis Adult (0.5 Ml) Boostrix) 0.5 ml IM .ONCE ONE Stop: 08/17/25 08:16 Last Admin: 08/17/25 09:08 Dose: 0.5 ml Documented By: ALAYNA Ceftriaxone Sodium 1 gm/ (Sodium Chloride) 50 mls @ 100 mls/hr IVPB ONCE STA Stop: 08/17/25 09:59 Last Infusion: 08/17/25 10:37 Dose: Infused Documented By: Admin: 08/17/25 10:08 Dose: 100 mls/hr Documented By: ALAINA Ceftriaxone Sodium 1 gm/ (Sodium Chloride) 50 mls @ 100 mls/hr IVPB ONCE ONE Stop: 08/17/25 11:24 Last Admin: 08/17/25 13:07 Dose: Not Given Documented By: ALAINA Non-Admin Reason: Duplicate Dose Notes 08/17/25 13:54 General Admission Note by Evon Baker This patient, Teresa Levi, was admitted to [facility]. Patient/family oriented to hospital policies and general routines including ID bracelet, bed and alarms, visiting hours, pain management, procedures, bathroom and other care routines, personal items, smoking policy, room service/diet, and visiting hours. Information on how to activate the Rapid Response Team has been discussed. Patient/Family are encouraged to report perceived risks to care and to ask questions if they do not understand what they are told or what they should do. Patient currently boarding in ER. Initialized on 08/17/25 13:54 - END OF NOTE 08/17/25 09:02 Respiratory Therapy Note by Reynaldo Heath DOCTOR IS IN ROOM ASSESSING WOUND ON PT, DELAY ON ABG Initialized on 08/17/25 09:02 - END OF NOTE Interventions/Assessments Cardiac Monitoring Start: 08/17/25 06:33 Freq: Status: Active Protocol: Document 08/17/25 07:23 ALAINA (Rec: 08/17/25 07:23 ALAINA [id number]) Seaweed Harvester Assessment Seaweed Harvester Yes Applied Pulse Rate (60-100 59 L beats/min) IV / Saline Lock, Insert Start: 08/17/25 06:36 Freq: STAT Status: Active Protocol: Document 08/17/25 06:48 [facility] (Rec: 08/17/25 06:48 AM[facility] [id number]) IV Assessment Peripheral Access Right Antecubital IV Catheter Access Initiated IV Insertion Date 08/17/25 IV Insertion Time 06:48 Catheter Gauge 18 IV Insertion 1 Attempts Ultrasound Used for No Placement IV Site Assessment WNL IV Care and WNL Maintenance PA: Cardiovascular Assessment Start: 08/17/25 06:33 Freq: Status: Active Protocol: Document 08/17/25 06:33 [facility] (Rec: 08/17/25 06:35 AMH [id number]) Cardiovascular Assessment Cardiovascular Dyspnea Symptoms Skin Description Dusky Heart Sounds Normal Jugular Vein None Distention PA: Respiratory Assessment Start: 08/17/25 06:33 Freq: Status: Active Protocol: Document 08/17/25 06:33 AM[facility] (Rec: 08/17/25 06:35 AMH [id number]) Respiratory Assessment Symptoms Shortness of Breath at Rest,Shortness of Breath With Exertion Effort Abdominal Breathing,Accessory Muscle Use,Short of Breath Pattern Regular Depth Normal Chest Expansion Symmetrical Adult Capillary Greater than or Equal to 2 Seconds Refill Bilateral Throughout Phase Inspiratory & Expiratory Lung Sounds Coarse,Diminished Cough Description None Oxygen Delivery Oxygen Delivery Nasal Cannula Oxygen Flow Rate (L/ 3 min) Pulse Oximetry (90- 98 100 %) Last Vital Signs Temperature 97.4 F L 08/17/25 10:52 Pulse Rate 64 08/17/25 14:28 Respiratory Rate 17 08/17/25 14:28 Pulse Oximetry 100 08/17/25 14:28 Blood Pressure 126/71 08/17/25 14:28 Blood Pressure Mean 89 08/17/25 14:28 Blood Pressure Position Sitting 08/17/25 14:28 Oxygen Delivery BiPAP 08/17/25 12:10 Oxygen Flow Rate 3 08/17/25 07:25 Weight 72 kg 08/17/25 13:56 Last Result - Abnormals Only RBC 3.92 M/mm3 (4.2-5.4) L 08/17/25 06:44 Hgb 11.3 g/dL (12.0-15.0) L 08/17/25 06:44 MCHC 30.1 g/dl (32-36) L 08/17/25 06:44 Lymph % (Auto) 14.5 % (18.3-44.2) L 08/17/25 06:44 Angelina % (Auto) 10.4 % (2.6-8.5) H 08/17/25 06:44 Eos % (Auto) 4.5 % (0-4.4) H 08/17/25 06:44 Angelina # (Auto) 0.9 K/mm3 (0.1-0.6) H 08/17/25 06:44 Eos # (Auto) 0.4 K/mm3 (0-0.3) H 08/17/25 06:44 Abs Immat Gran (auto) 0.04 K/mm3 (0.00-0.031) H 08/17/25 06:44 ABG pCO2 63.0 mmHg (35.0-45.0) H* 08/17/25 08:59 ABG pO2 79.0 mmHg (80.0-100.0) L 08/17/25 08:59 ABG HCO3 37.9 mEq/l (22.0-26.0) H 08/17/25 08:59 Carbon Dioxide > 40 mmol/L (22-30) H 08/17/25 06:44 BUN 24 mg/dL (7-17) H 08/17/25 06:44 Creatinine 1.22 mg/dL (0.7-1.0) H 08/17/25 06:44 Estimated GFR 43 (59-) L 08/17/25 06:44 NT-Pro-B Natriuret Pep 729 pg/mL (19.9-100) H 08/17/25 06:44 Most Recent Suicide Severity Rating Suicide Severity Rating NO RISK INDICATED 08/17/25 13:48
--- NOTE | 2025-08-17 17:11 | ADMGEN ---
This patient, Teresa Levi, was admitted to ROOM 231 @ 1640. bipap ON .resp nonlabored Patient oriented to hospital policies and general routines including ID bracelet, bed and alarms, visiting hours, pain management, procedures, bathroom and other care routines, personal items, smoking policy, room service/diet, and visiting hours. Information on how to activate the Rapid Response Team has been discussed. Patient/Family are encouraged to report perceived risks to care and to ask questions if they do not understand what they are told or what they should do.
[2025-08-17] MEDS: FERROUS SULFATE 325 MG TABLET BY MOUTH (18:05)
[2025-08-17] MEDS: HYDROcodone/acetaminophen (*CRX) 5-325 MG TABLET 1 TAB PO (18:06)
[2025-08-17] MEDS: POTASSIUM CHLORIDE 20 MEQ ER TABLET PO (18:08)
[2025-08-17] MEDS: LORATADINE 5 MG TABLET PO (18:15)
[2025-08-17] MEDS: guaiFENesin 12 HR 600 MG TABCR PO (20:13)
[2025-08-17] MEDS: ATORVASTATIN 40 MG TABLET PO (20:13)
[2025-08-17] MEDS: GABAPENTIN 300 MG CAPSULE PO (20:14)
[2025-08-17] MEDS: MELATONIN 5 MG TABLET PO (20:14)
[2025-08-17] MEDS: ALPRAZolam (*CRX) 0.5 MG TABLET PO (20:14)
[2025-08-18] VITALS (24 sets, daily range): BP systolic 104–162; BP diastolic 58–109; PULSE 50–105; RESP 16–22; TEMP 36.3–37.1; O2SAT 90–97
[2025-08-18 05:28] LABS: Alveolar/Arterial O2 Gradient 68.0 mmHg; Fractional Inspired Oxygen 30 %; HCO3 ABG 38.3 mEq/l (22.0-26.0); Oxygen Content ABG 15.5 %vol (16.0-22.0); Oxygen Saturation ABG 92.1 % (95.0-100.0); PO2 ABG 66.8 mmHg (80.0-100.0); PO2 FiO2 Ratio Arterial Blood 2.23 %
[2025-08-18 05:32] LABS: Modified Allen's Test Pass; PCO2 ABG 67.3 mmHg (35.0-45.0); Site Drawn RIGHT RADIAL
--- NOTE | 2025-08-18 06:16 | PM.EVENT ---
Event Note Event Note Event Note: Patient is A&O x4, a competent decision maker. She has elected to be DNR. Code status changed in the system.
[2025-08-18 06:21] LABS: Hematocrit 41.6 % (37.0-47.0); Hemoglobin 12.1 g/dL (12.0-15.0); Mean Corpuscular HGB Conc 29.1 g/dl (32-36); Mean Corpuscular Hemoglobin 28.3 pg (26-34); Mean Corpuscular Volume 97.2 fl (80-100); Platelet Count Result 269 k/mm3 (150-375); Red Blood Count 4.28 M/mm3 (4.2-5.4); White Blood Count 7.1 K/mm3 (4.5-10.0)
[2025-08-18] MEDS: GABAPENTIN 300 MG CAPSULE PO ×3 (06:31→21:01)
[2025-08-18 06:44] LABS: Alanine Aminotransferase 23 U/L (6-35); Albumin Level 4.0 g/dL (3.5-5.1); Alkaline Phosphatase 74 U/L (38-126); Anion Gap 3 mmol/L (4-12); Aspartate Amino Transferase 44 U/L (14-36); Bilirubin,Total 0.6 mg/dL (0.2-1.3); Blood Urea Nitrogen 28 mg/dL (7-17); Calcium 9.1 mg/dL (8.4-10.2); Carbon Dioxide 37 mmol/L (22-30); Chloride 100 mmol/L (98-107); Estimated CRCL calculation 36 ml/min; Estimated Glomerular Filt Rate 48; Glucose 139 mg/dL (65-110); Magnesium 2.4 mg/dL (1.6-2.3); Potassium 4.4 mmol/L (3.4-5.0); Sodium 140 mmol/L (137-145); Total Protein 7.1 g/dL (6.3-8.2)
[2025-08-18 06:51] LABS: Band Neutrophils Percent 3 % (0-6); Basophils Absolute Manual 0.07 K/mm3 (0.0-0.1); Basophils Percent Manual 1 % (0-1); Lymphocytes Absolute Manual 0.07 K/mm3 (1.1-4.5); Lymphocytes Percent Manual 1 % (18-44); Neutrophils Absolute Manual 6.95 K/mm3 (1.3-6.7); Neutrophils Percent Manual 95 % (46-73); Total Cells Counted 100
[2025-08-18 06:52] LABS: Hypochromasia Occasional; Schistocytes Occasional
--- NOTE | 2025-08-18 06:56 | PM.PNCARD ---
Progress Note: A&P Assessment and Plan (1) Shortness of breath: Code(s): R06.02 - Shortness of breath Status: Acute Assessment and Plan: Improved. Differential includes COPD exac, pneumonia, pulm embolism, and less likely CHF given insignificant NTproBNP at 729 and CXR without CHF findings. (2) Combined systolic and diastolic cardiac dysfunction: Code(s): I51.89 - Other ill-defined heart diseases Status: Acute Assessment and Plan: Mild and stable. (3) Chronic obstructive pulmonary disease: Qualifiers: COPD type: COPD with acute exacerbation Qualified Code(s): J44.1 - Chronic obstructive pulmonary disease with (acute) exacerbation Code(s): J44.9 - Chronic obstructive pulmonary disease, unspecified Status: Acute Assessment and Plan: On CPAP now. Was seen by Dr. Nava last admission. (4) Edema of both legs: Code(s): R60.0 - Localized edema Status: Acute Assessment and Plan: Due to venous insufficiency. 08/01/25 Venous duplex: No DVT of both legs. On home Lasix 40 mg PO BID and Spironolactone 25 mg daily. Restrict fluid to 1.5 l/day and wear compression stockings during the day and keep elevated while seated. On Lasix 40 mg IV BID for now. Edema responded to IV Lasix much better than PO Lasix. Therefore, upon discharge change Lasix to Bumetanide 1 mg BID and continue Spironolactone 25 mg daily. If d/c home have her f/u with me in 2 weeks. Subjective Date/time seen: 08/18/25 06:56 Interval history: She feels breathing is improving. No chest pains. Exam Const: General: cooperative, healthy appearing and comfortable Orientation/consciousness: oriented to person, oriented to place and oriented to time Resp: Auscultation: no crackles, no rales, no rhonchi, no wheezes and diminished lung sounds Cardio: Rate: regular rate Rhythm: regular rhythm Heart sounds: no murmurs Peripheral pulses: dorsalis pedis present Neuro: General: oriented to person, oriented to place and oriented to time Extrem: Right lower extremity: edema Left lower extremity: edema Other: Mild edema of both legs Objective Data Vital Signs Vital Signs: Vital Signs - 24 hr 08/17/25 07:13 08/17/25 07:16 08/17/25 07:18 Temperature Pulse Rate 68 59 L 58 L Respiratory Rate 22 H 14 19 Blood Pressure 136/69 Pulse Oximetry 100 100 100 Oxygen Delivery Oxygen Flow Rate Fraction of Inspired Oxygen 08/17/25 07:23 08/17/25 07:25 08/17/25 07:34 Temperature Pulse Rate 59 L 73 Respiratory Rate 21 H Blood Pressure 186/141 H Pulse Oximetry 100 Oxygen Delivery Nasal Cannula Oxygen Flow Rate 3 Fraction of Inspired Oxygen 08/17/25 07:49 08/17/25 08:01 08/17/25 08:18 Temperature Pulse Rate 59 L 61 56 L Respiratory Rate 19 18 18 Blood Pressure Pulse Oximetry Oxygen Delivery Oxygen Flow Rate Fraction of Inspired Oxygen 08/17/25 08:30 08/17/25 08:46 08/17/25 08:55 Temperature Pulse Rate 57 L 80 84 Respiratory Rate 16 23 H 20 Blood Pressure Pulse Oximetry Oxygen Delivery Oxygen Flow Rate Fraction of Inspired Oxygen 08/17/25 09:05 08/17/25 09:15 08/17/25 09:44 Temperature Pulse Rate Respiratory Rate Blood Pressure Pulse Oximetry 100 100 100 Oxygen Delivery Oxygen Flow Rate Fraction of Inspired Oxygen 08/17/25 09:45 08/17/25 09:47 08/17/25 10:00 Temperature Pulse Rate Respiratory Rate 21 H Blood Pressure Pulse Oximetry 100 100 100 Oxygen Delivery BiPAP Oxygen Flow Rate Fraction of Inspired Oxygen 08/17/25 10:07 08/17/25 10:07 08/17/25 10:15 Temperature 98.0 F Pulse Rate 66 62 Respiratory Rate 23 H 16 Blood Pressure 120/67 120/67 Pulse Oximetry 100 100 100 Oxygen Delivery Oxygen Flow Rate Fraction of Inspired Oxygen 08/17/25 10:30 08/17/25 10:46 08/17/25 10:52 Temperature 97.4 F L Pulse Rate 68 77 73 Respiratory Rate 21 H 24 H 18 Blood Pressure Pulse Oximetry 100 100 Oxygen Delivery Oxygen Flow Rate Fraction of Inspired Oxygen 08/17/25 11:00 08/17/25 11:19 08/17/25 11:30 Temperature Pulse Rate 61 62 62 Respiratory Rate 16 17 19 Blood Pressure Pulse Oximetry 100 100 100 Oxygen Delivery Oxygen Flow Rate Fraction of Inspired Oxygen 08/17/25 11:45 08/17/25 11:59 08/17/25 12:00 Temperature Pulse Rate 83 62 61 Respiratory Rate 18 16 14 Blood Pressure 130/66 Pulse Oximetry 92 96 100 Oxygen Delivery Oxygen Flow Rate Fraction of Inspired Oxygen 08/17/25 12:01 08/17/25 12:02 08/17/25 12:10 Temperature Pulse Rate 67 63 Respiratory Rate 16 21 H 21 H Blood Pressure 136/66 136/66 Pulse Oximetry 99 100 100 Oxygen Delivery BiPAP BiPAP Oxygen Flow Rate Fraction of Inspired Oxygen 08/17/25 12:15 08/17/25 13:07 08/17/25 13:32 Temperature Pulse Rate 69 64 79 Respiratory Rate 17 15 23 H Blood Pressure 120/56 L 120/71 Pulse Oximetry 100 100 100 Oxygen Delivery Oxygen Flow Rate Fraction of Inspired Oxygen 08/17/25 14:28 08/17/25 15:00 08/17/25 16:01 Temperature Pulse Rate 64 74 77 Respiratory Rate 17 27 H 20 Blood Pressure 126/71 120/61 Pulse Oximetry 100 100 100 Oxygen Delivery BiPAP Oxygen Flow Rate Fraction of Inspired Oxygen 08/17/25 16:55 08/17/25 16:55 08/17/25 17:00 Temperature 97.8 F Pulse Rate 65 65 65 Respiratory Rate 20 20 Blood Pressure 129/79 Pulse Oximetry 100 100 Oxygen Delivery BiPAP Oxygen Flow Rate Fraction of Inspired Oxygen 40 08/17/25 17:34 08/17/25 17:41 08/17/25 18:00 Temperature Pulse Rate 93 91 69 Respiratory Rate 28 H 23 H Blood Pressure Pulse Oximetry Oxygen Delivery Oxygen Flow Rate Fraction of Inspired Oxygen 08/17/25 20:00 08/17/25 20:00 08/17/25 20:40 Temperature Pulse Rate 70 63 Respiratory Rate 16 Blood Pressure Pulse Oximetry 95 Oxygen Delivery BiPAP Oxygen Flow Rate Fraction of Inspired Oxygen 30 08/17/25 20:41 08/17/25 20:51 08/17/25 20:53 Temperature 97.7 F Pulse Rate 77 63 86 Respiratory Rate 16 16 18 Blood Pressure 117/49 L Pulse Oximetry 98 99 Oxygen Delivery BiPAP Oxygen Flow Rate Fraction of Inspired Oxygen 08/17/25 21:34 08/17/25 23:51 08/18/25 00:00 Temperature Pulse Rate 63 79 Respiratory Rate 16 Blood Pressure Pulse Oximetry 98 94 Oxygen Delivery BiPAP BiPAP Oxygen Flow Rate Fraction of Inspired Oxygen 30 08/18/25 00:00 08/18/25 00:00 08/18/25 02:00 Temperature 97.3 F L Pulse Rate 68 63 53 L Respiratory Rate 19 Blood Pressure 118/64 Pulse Oximetry 96 Oxygen Delivery Oxygen Flow Rate Fraction of Inspired Oxygen 08/18/25 02:27 08/18/25 03:22 08/18/25 04:00 Temperature Pulse Rate 52 L 51 L Respiratory Rate 18 Blood Pressure Pulse Oximetry 95 95 Oxygen Delivery BiPAP BiPAP Oxygen Flow Rate Fraction of Inspired Oxygen 30 08/18/25 04:00 08/18/25 05:04 08/18/25 06:00 Temperature 97.5 F L Pulse Rate 71 57 L 50 L Respiratory Rate 21 H 18 Blood Pressure 162/109 H Pulse Oximetry 97 97 Oxygen Delivery BiPAP Oxygen Flow Rate Fraction of Inspired Oxygen Intake/Output Intake/Output: Intake & Output 08/15/25 08/16/25 08/17/25 08/18/25 23:59 23:59 23:59 23:59 Intake Total 530 Output Total 100 Balance 430 Meds/Results Medications: Active Medications Generic Name Dose Route Start Last Admin Trade Name Freq PRN Reason Stop Dose Admin Acetaminophen 650 mg 08/17/25 10:40 Acetaminophen 325 Mg Tablet PO Q4H PRN Mild Pain (1-3) or Fever Hydrocodone Bitart/Acetaminophen 1 tab 08/17/25 10:40 08/17/25 18:06 Hydrocodone/Acetaminophen (*Crx) 5-325 Mg Tablet PO 1 tab Q4H PRN Administration Moderate Pain (4-6) Al Hydrox/Mg Hydrox/Simethicone 30 ml 08/17/25 10:40 Mag Hydrox/Al Hydrox/Simeth 30 Ml Udc PO QID PRN Dyspepsia Albuterol 2 puff 08/17/25 14:38 Albuterol Sulfate (*Sp) Aerosol 1 Puff INHALATION Q6HRT PRN Shortness Of Breath Or Wheezing Albuterol/Ipratropium 3 ml 08/17/25 16:00 08/17/25 20:38 Ipratropium 0.5 Mg/Albuterol Sulfate 2.5 Mg (Base) Ampul.Neb 3 Ml INHALATION 3 ml QIDRT JESSIE Administration Alprazolam 0.5 mg 08/17/25 14:38 08/17/25 20:14 Alprazolam (*Crx) 0.5 Mg Tablet PO 0.5 mg Q8H PRN Administration Anxiety Aspirin 81 mg 08/18/25 09:00 Aspirin 81 Mg Enteric Tablet PO DAILY [facility] Atorvastatin Calcium 40 mg 08/17/25 21:00 08/17/25 20:13 Atorvastatin 40 Mg Tablet PO 40 mg HS JESSIE Administration Enoxaparin Sodium 40 mg 08/17/25 11:00 08/17/25 12:06 Enoxaparin 40 Mg/0.4 Ml Syringe SUB-Q 40 mg DAILY JESSIE Administration Escitalopram Oxalate 10 mg 08/18/25 09:00 Escitalopram Oxalate 10 Mg Tablet PO DAILY [facility] Ferrous Sulfate 325 mg 08/17/25 17:00 08/17/25 18:05 Ferrous Sulfate 325 Mg Tablet BY MOUTH 325 mg TID JESSIE Administration Furosemide 40 mg 08/17/25 11:00 08/17/25 18:08 Furosemide Inj 40 Mg/4 Ml Vial IV PUSH 40 mg BID JESSIE Administration Gabapentin 300 mg 08/17/25 22:00 08/18/25 06:31 Gabapentin 300 Mg Capsule PO 300 mg Q8HR JESSIE Administration Guaifenesin 600 mg 08/17/25 21:00 08/17/25 20:13 Guaifenesin 12 Hr 600 Mg Tabcr PO 600 mg Q12HR JESSIE Administration Azithromycin 500 mg/ Sodium 250 mls @ 250 mls/hr 08/18/25 10:00 Chloride IVPB Q24H [facility] Ceftriaxone Sodium 2 gm/ 100 mls @ 200 mls/hr 08/18/25 09:00 Sodium Chloride IVPB Q24H [facility] Levetiracetam 250 mg 08/17/25 21:00 08/17/25 20:13 Levetiracetam 250 Mg Tablet PO 250 mg Q12H JESSIE Administration Loratadine 5 mg 08/17/25 18:00 08/17/25 18:15 Loratadine 5 Mg Tablet PO 5 mg QPM JESSIE Administration Magnesium Hydroxide 30 ml 08/17/25 10:40 Magnesium Hydroxide Susp 30 Ml Udc PO DAILY PRN Constipation Melatonin 5 mg 08/17/25 21:00 08/17/25 20:14 Melatonin 5 Mg Tablet PO 5 mg HS JESSIE Administration Methylprednisolone Sodium Succinate 40 mg 08/17/25 17:00 08/17/25 20:14 Methylprednisolone Sod Succ 40 Mg Vial IV PUSH 40 mg QID JESSIE Administration Multivitamins Therapeutic 1 tablet 08/18/25 09:00 Multivitamins Therapeutic Tab (*Bkc) PO DAILY [facility] Ondansetron HCl 4 mg 08/17/25 10:40 Ondansetron Inj 4 Mg/2 Ml Vial IV PUSH Q6H PRN Nausea And Vomiting Pantoprazole Sodium 40 mg 08/18/25 09:00 Pantoprazole 40 Mg Tablet PO QAM [facility] Potassium Chloride 20 meq 08/17/25 17:00 08/17/25 18:08 Potassium Chloride 20 Meq Er Tablet PO 20 meq BID JESSIE Administration Ropinirole HCl 1 mg 08/17/25 17:00 08/17/25 18:05 Ropinirole Hcl 1 Mg Tablet PO 1 mg TID [facility] Administration Fluticasone/Salmeterol 2 puff 08/17/25 20:00 Fluticasone/Salmeterol 230-21 Mcg Inhaler 1 Puff INHALATION On Hold: 08/17/25 17:08 Q12HRT [facility] Comment: HOLD WHILE ON DUONEB UPDRAFT. ALSO PATIENT ON SOLUEDROL Spironolactone 25 mg 08/18/25 09:00 Spironolactone 25 Mg Tablet PO DAILY [facility] Radiology Results: ITS Impressions Chest X-Ray 08/17/25 07:42 IMPRESSION: 1. Suspect mild persistent right basilar airspace disease. Labs Labs: Laboratory Results - last 24 hr 08/17/25 08/17/25 08/18/25 06:44 08:59 05:06 WBC RBC Hgb Hct MCV MCH MCHC RDW Plt Count MPV Immature Gran % (Auto) Neut % (Auto) Lymph % (Auto) [place] % (Auto) Eos % (Auto) Baso % (Auto) Lymph # (Auto) [place] # (Auto) Eos # (Auto) Baso # (Auto) Abs Immat Gran (auto) Absolute Neuts (auto) Absolute Nucleated RBC Total Counted Neutrophils % (Manual) Band Neutrophils % Lymphocytes % (Manual) Basophils % (Manual) Nucleated RBC % Abs Neuts (Manual) Abs Lymphs (Manual) Abs Basophils (Manual) Platelet Estimate Large Platelets Hypochromasia Schistocytes Puncture Site Right radial Right radial ABG pH 7.397 7.373 ABG pCO2 63.0 H* 67.3 H* ABG pO2 79.0 L 66.8 L ABG PO2/FiO2 Ratio 2.47 2.23 ABG HCO3 37.9 H 38.3 H ABG O2 Saturation 95.3 92.1 L ABG O2 Content 16.4 15.5 L ABG Base Excess 10.8 10.7 A-a Gradient 75.5 68.0 Oxyhemoglobin 95.0 92.2 Carboxyhemoglobin 0.8 Methemoglobin 0.3 Reduced Hemoglobin 3.9 Total Hemoglobin 12.2 11.9 L O2 Delivery Device Nasal cannula Bipap O2 Liters/Min 3.0 Not Reportable FiO2 32 30 Expiratory Pressure 8 Inspiratory Pressure 16 Sodium 141 Potassium 3.8 Chloride 98 Carbon Dioxide > 40 H Anion Gap BUN 24 H Creatinine 1.22 H Estim Creat Clear Calc Not Reportable Estimated GFR 43 L Glucose 90 Lactic Acid 1.0 Calcium 9.1 Magnesium Total Bilirubin 0.4 AST 26 ALT 19 Alkaline Phosphatase 74 NT-Pro-B Natriuret Pep 729 H Total Protein 6.9 Albumin 3.8 08/18/25 06:04 WBC 7.1 RBC 4.28 Hgb 12.1 Hct 41.6 MCV 97.2 MCH 28.3 MCHC 29.1 L RDW 14.6 H Plt Count 269 MPV 10.3 Immature Gran % (Auto) Not Reportable Neut % (Auto) Not Reportable Lymph % (Auto) Not Reportable [place] % (Auto) Not Reportable Eos % (Auto) Not Reportable Baso % (Auto) Not Reportable Lymph # (Auto) Not Reportable [place] # (Auto) Not Reportable Eos # (Auto) Not Reportable Baso # (Auto) Not Reportable Abs Immat Gran (auto) Not Reportable Absolute Neuts (auto) Not Reportable Absolute Nucleated RBC Not Reportable Total Counted 100 Neutrophils % (Manual) 95 H Band Neutrophils % 3 Lymphocytes % (Manual) 1 L Basophils % (Manual) 1 Nucleated RBC % Not Reportable Abs Neuts (Manual) 6.95 H Abs Lymphs (Manual) 0.07 L Abs Basophils (Manual) 0.07 Platelet Estimate Adequate Large Platelets Present Hypochromasia Occasional Schistocytes Occasional Puncture Site ABG pH ABG pCO2 ABG pO2 ABG PO2/FiO2 Ratio ABG HCO3 ABG O2 Saturation ABG O2 Content ABG Base Excess A-a Gradient Oxyhemoglobin Carboxyhemoglobin Methemoglobin Reduced Hemoglobin Total Hemoglobin O2 Delivery Device O2 Liters/Min FiO2 Expiratory Pressure Inspiratory Pressure Sodium 140 Potassium 4.4 Chloride 100 Carbon Dioxide 37 H Anion Gap 3 L BUN 28 H Creatinine 1.11 H Estim Creat Clear Calc 36 Estimated GFR 48 L Glucose 139 H Lactic Acid Calcium 9.1 Magnesium 2.4 H Total Bilirubin 0.6 AST 44 H ALT 23 Alkaline Phosphatase 74 NT-Pro-B Natriuret Pep Total Protein 7.1 Albumin 4.0
[2025-08-18 06:59] LABS: NT Pro B Type Natriuretic Pept 500 pg/mL (19.9-100)
[2025-08-18] MEDS: IPRATROPIUM 0.5 MG/ALBUTEROL SULFATE 2.5 MG (BASE) AMPUL.NEB 3 ML INHALATION ×4 (07:59→22:10)
--- NOTE | 2025-08-18 08:39 | PM.IMPN2 ---
Assessment and Plan Assessment and Plan (1) Acute hypercapnic respiratory failure: Code(s): J96.02 - Acute respiratory failure with hypercapnia Status: Acute Assessment and Plan: - has history of gold grade 4, history of alpha-1 antitrypsin genotype mm - PH 7.397, pCO2 63, PO2 79, bicarb 37.9, oxygen saturation 95.3. - Consult to pulmonology for consideration and further management - BiPap per settings - continue oxygen per protocol. - Repeat ABGs in AM - monitor closely - patient reports she does not use her BIPAP at home due to claustrophobia, we discussed the importance of using it nightly, patient agrees to try it again at night with increased dose of alprazolam (2) Acute exacerbation of chronic obstructive pulmonary disease: Code(s): J44.1 - Chronic obstructive pulmonary disease with (acute) exacerbation Status: Acute Assessment and Plan: - will continue solumedrol - consulted Pulmonolgy - oxygen per protocol - Duonebs QID - quaifenesin for cough - question if patient's COPD is progressing versus an acute exacerbation - PT/OT, patient may need SNF on discharge (3) Bilateral pneumonia: Qualifiers: Lung location: lower lobe of lung Pneumonia type: due to unspecified organism Qualified Code(s): J18.9 - Pneumonia, unspecified organism Code(s): J18.9 - Pneumonia, unspecified organism Status: Acute Assessment and Plan: - will continue IVPB rocephin and Azithromycin - first doses in ER - monitor labs -f/u blood cultures (4) Diastolic CHF: Qualifiers: Heart failure chronicity: unspecified Qualified Code(s): I50.30 - Unspecified diastolic (congestive) heart failure Code(s): I50.30 - Unspecified diastolic (congestive) heart failure Status: Chronic Assessment and Plan: - echocardiogram shows 40-45% left ventricular diastolic dysfunction - BNP 729 - continue lasix BID - Cardiology following - continue home medications - per cardiology change patient's furosemide to PO Bumetanide 1 mg BID and continue spironolactone 25 mg daily on discharge - f/u with cardiology Dr. Meyers 2 weeks after discharge (5) Laceration: Status: Acute Assessment and Plan: ER provider cleansed, applied Steri-Strips then sewed over the Steri-Strips to hold everything together. Tetanus updated. (6) CKD (chronic kidney disease) stage 3, GFR 30-59 ml/min: Qualifiers: Chronic kidney disease stage 3 subtype: unspecified whether 3a or 3b Qualified Code(s): N18.30 - Chronic kidney disease, stage 3 unspecified Code(s): N18.30 - Chronic kidney disease, stage 3 unspecified Status: Acute Assessment and Plan: - BUN 24, creat 1.22 - with IV lasix, will monitor BMP dialy (7) Iron deficiency anemia: Code(s): D50.9 - Iron deficiency anemia, unspecified Status: Acute Assessment and Plan: Hemoglobin currently stable at 11.3 hematocrit 37.5 will monitor closely (8) Hypertension: Qualifiers: Hypertension type: primary hypertension Qualified Code(s): I10 - Essential (primary) hypertension Code(s): I10 - Essential (primary) hypertension Status: Chronic Assessment and Plan: Continue medications monitor vital signs (9) Dyslipidemia: Code(s): E78.5 - Hyperlipidemia, unspecified Status: Acute Assessment and Plan: continue home medications (10) Seizure disorder: Code(s): G40.909 - Epilepsy, unspecified, not intractable, without status epilepticus Status: Chronic Assessment and Plan: continue keppra seizure precautions monitor (11) Weakness: Code(s): R53.1 - Weakness Status: Acute Assessment and Plan: PT and OT to evaluate patient question if patient will be able to return to SNF or if she will need a higher level of care SNF vs possible NH on discharge Subjective Date/time seen: 08/18/25 08:39 Interval history: Patient seen for a follow up visit. Patient lying in bed, in no acute distress. Patient with dyspnea with conversation and pursed lip breathing. Patient denies acute pain. Patient reports she wore the BIPAP last night but did not sleep and felt claustrophobic the whole time. Patient has a friend at bedside during visit. Patient continues on IV antibiotics, IV Lasix and IV steroids. Discussed the possibility of progression of COPD causing worsening in respiratory status vs acute illnesses. Pulmonology consulted and awaiting recommendations. Cardiology consulted, appreciate recommendations. PT/OT evaluation to help with discharge planning. Review of Systems Review of Systems: All systems reviewed & are unremarkable except as noted in HPI and below Objective Data Vital Signs Vital Signs: Vital Signs - 24 hr 08/17/25 08:46 08/17/25 08:55 08/17/25 09:05 Temperature Pulse Rate 80 84 Respiratory Rate 23 H 20 Blood Pressure Pulse Oximetry 100 Oxygen Delivery Oxygen Flow Rate Fraction of Inspired Oxygen 08/17/25 09:15 08/17/25 09:44 08/17/25 09:45 Temperature Pulse Rate Respiratory Rate Blood Pressure Pulse Oximetry 100 100 100 Oxygen Delivery Oxygen Flow Rate Fraction of Inspired Oxygen 08/17/25 09:47 08/17/25 10:00 08/17/25 10:07 Temperature 98.0 F Pulse Rate 66 Respiratory Rate 21 H 23 H Blood Pressure 120/67 Pulse Oximetry 100 100 100 Oxygen Delivery BiPAP Oxygen Flow Rate Fraction of Inspired Oxygen 08/17/25 10:07 08/17/25 10:15 08/17/25 10:30 Temperature Pulse Rate 62 68 Respiratory Rate 16 21 H Blood Pressure 120/67 Pulse Oximetry 100 100 100 Oxygen Delivery Oxygen Flow Rate Fraction of Inspired Oxygen 08/17/25 10:46 08/17/25 10:52 08/17/25 11:00 Temperature 97.4 F L Pulse Rate 77 73 61 Respiratory Rate 24 H 18 16 Blood Pressure Pulse Oximetry 100 100 Oxygen Delivery Oxygen Flow Rate Fraction of Inspired Oxygen 08/17/25 11:19 08/17/25 11:30 08/17/25 11:45 Temperature Pulse Rate 62 62 83 Respiratory Rate 17 19 18 Blood Pressure Pulse Oximetry 100 100 92 Oxygen Delivery Oxygen Flow Rate Fraction of Inspired Oxygen 08/17/25 11:59 08/17/25 12:00 08/17/25 12:01 Temperature Pulse Rate 62 61 67 Respiratory Rate 16 14 16 Blood Pressure 130/66 136/66 Pulse Oximetry 96 100 99 Oxygen Delivery Oxygen Flow Rate Fraction of Inspired Oxygen 08/17/25 12:02 08/17/25 12:10 08/17/25 12:15 Temperature Pulse Rate 63 69 Respiratory Rate 21 H 21 H 17 Blood Pressure 136/66 Pulse Oximetry 100 100 100 Oxygen Delivery BiPAP BiPAP Oxygen Flow Rate Fraction of Inspired Oxygen 08/17/25 13:07 08/17/25 13:32 08/17/25 14:28 Temperature Pulse Rate 64 79 64 Respiratory Rate 15 23 H 17 Blood Pressure 120/56 L 120/71 126/71 Pulse Oximetry 100 100 100 Oxygen Delivery Oxygen Flow Rate Fraction of Inspired Oxygen 08/17/25 15:00 08/17/25 16:01 08/17/25 16:55 Temperature Pulse Rate 74 77 65 Respiratory Rate 27 H 20 20 Blood Pressure 120/61 Pulse Oximetry 100 100 100 Oxygen Delivery BiPAP BiPAP Oxygen Flow Rate Fraction of Inspired Oxygen 40 08/17/25 16:55 08/17/25 17:00 08/17/25 17:34 Temperature 97.8 F Pulse Rate 65 65 93 Respiratory Rate 20 28 H Blood Pressure 129/79 Pulse Oximetry 100 Oxygen Delivery Oxygen Flow Rate Fraction of Inspired Oxygen 08/17/25 17:41 08/17/25 18:00 08/17/25 20:00 Temperature Pulse Rate 91 69 Respiratory Rate 23 H Blood Pressure Pulse Oximetry 95 Oxygen Delivery BiPAP Oxygen Flow Rate Fraction of Inspired Oxygen 30 08/17/25 20:00 08/17/25 20:40 08/17/25 20:41 Temperature Pulse Rate 70 63 77 Respiratory Rate 16 16 Blood Pressure Pulse Oximetry 98 Oxygen Delivery BiPAP Oxygen Flow Rate Fraction of Inspired Oxygen 08/17/25 20:51 08/17/25 20:53 08/17/25 21:34 Temperature 97.7 F Pulse Rate 63 86 63 Respiratory Rate 16 18 Blood Pressure 117/49 L Pulse Oximetry 99 Oxygen Delivery Oxygen Flow Rate Fraction of Inspired Oxygen 08/17/25 23:51 08/18/25 00:00 08/18/25 00:00 Temperature Pulse Rate 79 68 Respiratory Rate 16 Blood Pressure Pulse Oximetry 98 94 Oxygen Delivery BiPAP BiPAP Oxygen Flow Rate Fraction of Inspired Oxygen 30 08/18/25 00:00 08/18/25 02:00 08/18/25 02:27 Temperature 97.3 F L Pulse Rate 63 53 L 52 L Respiratory Rate 19 18 Blood Pressure 118/64 Pulse Oximetry 96 95 Oxygen Delivery BiPAP Oxygen Flow Rate Fraction of Inspired Oxygen 08/18/25 03:22 08/18/25 04:00 08/18/25 04:00 Temperature 97.5 F L Pulse Rate 51 L 71 Respiratory Rate 21 H Blood Pressure 162/109 H Pulse Oximetry 95 97 Oxygen Delivery BiPAP Oxygen Flow Rate Fraction of Inspired Oxygen 30 08/18/25 05:04 08/18/25 06:00 08/18/25 08:00 Temperature Pulse Rate 57 L 50 L Respiratory Rate 18 Blood Pressure Pulse Oximetry 97 91 Oxygen Delivery BiPAP Nasal Cannula Oxygen Flow Rate 2 Fraction of Inspired Oxygen 08/18/25 08:00 08/18/25 08:00 08/18/25 08:05 Temperature 97.9 F Pulse Rate 79 78 79 Respiratory Rate 19 16 19 Blood Pressure 119/67 Pulse Oximetry 95 Oxygen Delivery Oxygen Flow Rate Fraction of Inspired Oxygen Intake/Output Intake/Output: Intake & Output 08/15/25 08/16/25 08/17/25 08/18/25 23:59 23:59 23:59 23:59 Intake Total 530 270 Output Total 100 250 Balance 430 20 Meds/Results Medications: Active Medications Generic Name Dose Route Start Last Admin Trade Name Freq PRN Reason Stop Dose Admin Acetaminophen 650 mg 08/17/25 10:40 Acetaminophen 325 Mg Tablet PO Q4H PRN Mild Pain (1-3) or Fever Hydrocodone Bitart/Acetaminophen 1 tab 08/17/25 10:40 08/17/25 18:06 Hydrocodone/Acetaminophen (*Crx) 5-325 Mg Tablet PO 1 tab Q4H PRN Administration Moderate Pain (4-6) Al Hydrox/Mg Hydrox/Simethicone 30 ml 08/17/25 10:40 Mag Hydrox/Al Hydrox/Simeth 30 Ml Udc PO QID PRN Dyspepsia Albuterol 2 puff 08/17/25 14:38 Albuterol Sulfate (*Sp) Aerosol 1 Puff INHALATION Q6HRT PRN Shortness Of Breath Or Wheezing Albuterol/Ipratropium 3 ml 08/17/25 16:00 08/18/25 07:59 Ipratropium 0.5 Mg/Albuterol Sulfate 2.5 Mg (Base) Ampul.Neb 3 Ml INHALATION 3 ml QIDRT JESSIE Administration Alprazolam 0.5 mg 08/17/25 14:38 08/17/25 20:14 Alprazolam (*Crx) 0.5 Mg Tablet PO 0.5 mg Q8H PRN Administration Anxiety Aspirin 81 mg 08/18/25 09:00 Aspirin 81 Mg Enteric Tablet PO DAILY JESSIE Atorvastatin Calcium 40 mg 08/17/25 21:00 08/17/25 20:13 Atorvastatin 40 Mg Tablet PO 40 mg HS JESSIE Administration Enoxaparin Sodium 40 mg 08/17/25 11:00 08/17/25 12:06 Enoxaparin 40 Mg/0.4 Ml Syringe SUB-Q 40 mg DAILY JESSIE Administration Escitalopram Oxalate 10 mg 08/18/25 09:00 Escitalopram Oxalate 10 Mg Tablet PO DAILY [facility] Ferrous Sulfate 325 mg 08/17/25 17:00 08/17/25 18:05 Ferrous Sulfate 325 Mg Tablet BY MOUTH 325 mg TID [facility] Administration Furosemide 40 mg 08/17/25 11:00 08/17/25 18:08 Furosemide Inj 40 Mg/4 Ml Vial IV PUSH 40 mg BID JESSIE Administration Gabapentin 300 mg 08/17/25 22:00 08/18/25 06:31 Gabapentin 300 Mg Capsule PO 300 mg Q8HR [facility] Administration Guaifenesin 600 mg 08/17/25 21:00 08/17/25 20:13 Guaifenesin 12 Hr 600 Mg Tabcr PO 600 mg Q12HR [facility] Administration Azithromycin 500 mg/ Sodium 250 mls @ 250 mls/hr 08/18/25 10:00 Chloride IVPB Q24H [facility] Ceftriaxone Sodium 2 gm/ 100 mls @ 200 mls/hr 08/18/25 09:00 Sodium Chloride IVPB Q24H [facility] Levetiracetam 250 mg 08/17/25 21:00 08/17/25 20:13 Levetiracetam 250 Mg Tablet PO 250 mg Q12H [facility] Administration Loratadine 5 mg 08/17/25 18:00 08/17/25 18:15 Loratadine 5 Mg Tablet PO 5 mg QPM [facility] Administration Magnesium Hydroxide 30 ml 08/17/25 10:40 Magnesium Hydroxide Susp 30 Ml Udc PO DAILY PRN Constipation Melatonin 5 mg 08/17/25 21:00 08/17/25 20:14 Melatonin 5 Mg Tablet PO 5 mg HS [facility] Administration Methylprednisolone Sodium Succinate 40 mg 08/17/25 17:00 08/17/25 20:14 Methylprednisolone Sod Succ 40 Mg Vial IV PUSH 40 mg QID [facility] Administration Multivitamins Therapeutic 1 tablet 08/18/25 09:00 Multivitamins Therapeutic Tab (*Bkc) PO DAILY [facility] Ondansetron HCl 4 mg 08/17/25 10:40 Ondansetron Inj 4 Mg/2 Ml Vial IV PUSH Q6H PRN Nausea And Vomiting Pantoprazole Sodium 40 mg 08/18/25 09:00 Pantoprazole 40 Mg Tablet PO QAM [facility] Potassium Chloride 20 meq 08/17/25 17:00 08/17/25 18:08 Potassium Chloride 20 Meq Er Tablet PO 20 meq BID JESSIE Administration Ropinirole HCl 1 mg 08/17/25 17:00 08/17/25 18:05 Ropinirole Hcl 1 Mg Tablet PO 1 mg TID JESSIE Administration Fluticasone/Salmeterol 2 puff 08/17/25 20:00 Fluticasone/Salmeterol 230-21 Mcg Inhaler 1 Puff INHALATION On Hold: 08/17/25 17:08 Q12HRT [facility] Comment: HOLD WHILE ON DUONEB UPDRAFT. ALSO PATIENT ON SOLUEDROL Spironolactone 25 mg 08/18/25 09:00 Spironolactone 25 Mg Tablet PO DAILY [facility] Radiology Results: ITS Impressions Chest X-Ray 08/17/25 07:42 IMPRESSION: 1. Suspect mild persistent right basilar airspace disease. Labs Labs: Laboratory Results - last 24 hr 08/17/25 08/18/25 08/18/25 08:59 05:06 06:04 WBC 7.1 RBC 4.28 Hgb 12.1 Hct 41.6 MCV 97.2 MCH 28.3 MCHC 29.1 L RDW 14.6 H Plt Count 269 MPV 10.3 Immature Gran % (Auto) Not Reportable Neut % (Auto) Not Reportable Lymph % (Auto) Not Reportable [place] % (Auto) Not Reportable Eos % (Auto) Not Reportable Baso % (Auto) Not Reportable Lymph # (Auto) Not Reportable [place] # (Auto) Not Reportable Eos # (Auto) Not Reportable Baso # (Auto) Not Reportable Abs Immat Gran (auto) Not Reportable Absolute Neuts (auto) Not Reportable Absolute Nucleated RBC Not Reportable Total Counted 100 Neutrophils % (Manual) 95 H Band Neutrophils % 3 Lymphocytes % (Manual) 1 L Basophils % (Manual) 1 Nucleated RBC % Not Reportable Abs Neuts (Manual) 6.95 H Abs Lymphs (Manual) 0.07 L Abs Basophils (Manual) 0.07 Platelet Estimate Adequate Large Platelets Present Hypochromasia Occasional Schistocytes Occasional Puncture Site Right radial Right radial ABG pH 7.397 7.373 ABG pCO2 63.0 H* 67.3 H* ABG pO2 79.0 L 66.8 L ABG PO2/FiO2 Ratio 2.47 2.23 ABG HCO3 37.9 H 38.3 H ABG O2 Saturation 95.3 92.1 L ABG O2 Content 16.4 15.5 L ABG Base Excess 10.8 10.7 A-a Gradient 75.5 68.0 Oxyhemoglobin 95.0 92.2 Carboxyhemoglobin 0.8 Methemoglobin 0.3 Reduced Hemoglobin 3.9 Total Hemoglobin 12.2 11.9 L O2 Delivery Device Nasal cannula Bipap O2 Liters/Min 3.0 Not Reportable FiO2 32 30 Expiratory Pressure 8 Inspiratory Pressure 16 Sodium 140 Potassium 4.4 Chloride 100 Carbon Dioxide 37 H Anion Gap 3 L BUN 28 H Creatinine 1.11 H Estim Creat Clear Calc 36 Estimated GFR 48 L Glucose 139 H Calcium 9.1 Magnesium 2.4 H Total Bilirubin 0.6 AST 44 H ALT 23 Alkaline Phosphatase 74 NT-Pro-B Natriuret Pep 500 H Total Protein 7.1 Albumin 4.0 Quality VTE Prophylaxis VTE prophylaxis: pharmacologic ordered
[2025-08-18] MEDS: ESCITALOPRAM OXALATE 10 MG TABLET PO (09:33)
[2025-08-18] MEDS: POTASSIUM CHLORIDE 20 MEQ ER TABLET PO ×2 (09:33→17:32)
[2025-08-18] MEDS: guaiFENesin 12 HR 600 MG TABCR PO ×2 (09:33→20:45)
[2025-08-18] MEDS: FUROSEMIDE INJ 40 MG/4 ML VIAL IV PUSH ×2 (09:33→17:32)
[2025-08-18] MEDS: SPIRONOLACTONE 25 MG TABLET PO (09:33)
[2025-08-18] MEDS: FERROUS SULFATE 325 MG TABLET BY MOUTH ×3 (09:33→17:32)
[2025-08-18] MEDS: MULTIVITAMINS THERAPEUTIC TAB (*BKC) 1 TABLET PO (09:33)
[2025-08-18] MEDS: PANTOPRAZOLE 40 MG TABLET PO (09:33)
[2025-08-18] MEDS: ASPIRIN 81 MG ENTERIC TABLET PO (09:34)
[2025-08-18] MEDS: cefTRIAXone 2 GM in SODIUM CHLORIDE 0.9% IV 100 ML 200 ML IVPB (09:34)
[2025-08-18] MEDS: ENOXAPARIN 40 MG/0.4 ML SYRINGE SUB-Q (09:34)
[2025-08-18] MEDS: AZITHROMYCIN IV 500 MG in SODIUM CHLORIDE 0.9% IV 250 ML IVPB (10:17)
--- NOTE | 2025-08-18 16:07 | PM.CNPUL ---
Assessment and Plan Assessment and plan (1) Acute and chronic respiratory failure, unspecified whether with hypoxia or hypercapnia: Qualifiers: Respiratory failure complication: hypoxia and hypercapnia Qualified Code(s): J96.21 - Acute and chronic respiratory failure with hypoxia; J96.22 - Acute and chronic respiratory failure with hypercapnia Code(s): J96.20 - Acute and chronic respiratory failure, unspecified whether with hypoxia or hypercapnia Status: Acute Assessment and Plan: Worsening compared to discharge on Aug 04, anxiety contributed to panic, poor choices, not using NIV, over using O2, more falls with lower leg injuries treated at ER and Dr Donahue's office. She may be at end stage, however O2 requirement is low. She has low exerzize toelrance due to stroke, right hemiplegia. Does not appear to have a new pneumonia. Some of this is destabilized cardiac function, EF 40%, has diastolic an systolic dysfunction, and the large ventral hernia is not helping. 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 (2) Chronic respiratory failure with hypoxia, on home oxygen therapy: Code(s): J96.11 - Chronic respiratory failure with hypoxia; Z99.81 - Dependence on supplemental oxygen Status: Acute Assessment and Plan: On O2 at home for a while, she cannot recall how long; at last admission, she was discharged with instructions to use O2 nasal cannula 1 L at test and with exertion, At rest with 1 L = saturation 92%. Exercise nasal cannula 1 L saturation 91%. Patient is nonambulatory and did exercises with the feet. Patient requires 1 L oxygen at rest and with activity. She increased this and is using 2.5 L all the time, finding sat lower in the 70s when she goes to the bathroom. Isabela told me that today going to the bathroom, her saturation was 97% on 2 L. This is not a coherent way to use O2. Patient adjusts O2, does not have a plan for goals of O2 use. (3) Shortness of breath: Code(s): R06.02 - Shortness of breath Status: Acute Assessment and Plan: Much more short of breath, deteriorating, and with each admission, she may have a step gomez decrease in baseline functioning. (4) COPD exacerbation: Code(s): J44.1 - Chronic obstructive pulmonary disease with (acute) exacerbation Status: Acute Assessment and Plan: Long standing advanced COPD, FEV1 much less than a liter in 2018, on Advair 230/21 and umeclidinium / Incruse 62.5 once a day; Isabela told me that her insurance is switching her to Spiriva on Sep 14, so she won't be able to take Incruse any longer. She has end stage COPD, and with increased eosinophils, she may benefit from Dupixent as add-on therapy. This is not for acute decompensations, only maintenance. This is not available in the hosital setting as it is for maintanence, not exacerbations. Plan plan: 1. Add buspirone 2.5 mg b.i.d. to decrease anxiety and dyspnea. She is taking alprazolam 5 mg HS to help get to sleep, and take the edge off her anxiety fidelina with using PAP. This medication is not likely to lower seizure threshold. 2. Add flutter valve; she has her Cornet at home, says that she uses it 8 exhalations twice a day, no increase in sputum expectoration, although today, chest sound as if she has loose secretions, wet with loud rhonchi. continue antibiotics for preseumed pneumonia; she had infiltrates in same locations on CR last admission. These could be residual; CXR can lag behind patient recovery. 3. She has been on NIV for a while, this is not new, although she is having more problems using it now with a second admission 13 days after discharge brought on by not using AVAPS at home, using too much O2, getting less coordinated using her wheelchair, banging her legs, falling out landing on her knees. re-start AVAPS settings; AVAPS AE rate of 14, tidal volume 500, EPAP minimum 5, EPAP maximum 15, pressure support minimum 10, pressure support maximum 25 with 3 L bleed in using an over the mouth under the nose mask. 4. She is not going to be able to use [employer] trade name for umeclidinium after Sep 14, due to insurance rules. I wonder if she could use Breztri 2 puffs bid instead of Advair 230/21 ONE puff b.i.d.& Spiriva TWO Puffs Q day. Few inhalers = more compliance. Compliance is really important for her. 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 This is out patient, not in-patient. 5. O2; she is making her own rules for oxygen use; she is using more when she feels short of breath. This can be a problem with hypercapnia. She does not know what her goals are supposed to be for O2 use, does not appreciate that oxygen is a drug, and using it correctly can improve one's condition. Use what is needed, not more. Will follow closeky; d/w Sierra White [employer]INE ENGINEER[employer]PER[employer] today. Comple patient. History of Present Illness History of Present Illness Consult date: 08/18/25 Requesting physician: Sierra White APRN Chief complaint: Pneumonia/CHF Exacerbation/ Acute Hypoxic Resp Erick Narrative: Patient was seen August 18, 2025, at 18:55, room 231 Her friend gabrielle roberts [facility], Isabela, is at the bedside, assists with the history. NEW: Teresa Levi is a 75-year-old woman with COPD [id number] in our clinic, sees Dr Nava, was admitted Jul 30 to , went home, did not use BiPAP at [facility]. She was admitted with increased shortness of breath, worsening balance in her wheelchair running into things causes gashes on her lower legs with trips to the ER. She banged up her left knee, left lateral leg, last admission she was on AVAPS, and although she was not wearing it, AVAPS would be a better option for her because of the indication, chronic hypercapneic respiraotry failure. She does not have obesity hypoventilation. She is using a hybrid mask at home, under the nose which is more comfortable comared to over the nose fidelina with her claustrophobia. recurrent hypercapnic respiratory failure, acute exacerbation of COPD, bilateral infiltrates consistent with pneumonia, dCHF, diuretics adjusted, and CKD, HTN, gout, lung cancer 10 yeas ago. She was here less than a month ago. She does not use BiPAP at home due to claustrophobia, takes alprazolam 0.5 mg HS to assist with sleep onset, also makes trying PAP easier, She uses O2 at home. At discharge, she was on be on O2 at 1 L, increase with exertion. She was not using her PAP machine at [facility], was sleeping in a recliner, turned O2 up when she felt short of breath. She has been falling frequently with injuries to lower legs, and has a large injury to the LUE after a tourniquet placed while in an ambulance. She had one of the gashes in her lower leg sewn together by Dr Donahue. She is on 2 L, sat is 93%.Admitted Aug 17, wbc 7.1 k with mild increase in eosinophils. She has had high eosinophils on at least 3 occasions, now 400 this admission. She was admitted July 30 through the , last month for an acute exacerbation of COPD, acute hypercapnic hypoxemic respiratory failure and right middle lobe pneumonia.She went home, did not use her NIV, slept in recliner, turne O2 higher than needed, was falling out of wheelchair and running into things, gashing her little legs. DATA * Date 08/0108/04/25 3:48 am discharged 08/17/25 8:59 08/18/2025 5:06 a.m. pH 7.41 7.40 7.39 7.37 pCO2 60 50 63 67 pO2 83 58.5 79 66.8 HCO3 37.8 30.5 38 38 sat 96% 90% 95% 92% CarboxyHgb FiO2 40% 28% 32% 30% O2 delivery BiPAP IPAP 25 16 EPAP 8 7 cm 8 * 08/17/25, CXR : Cardiomediastinal silhouette normal size and configuration. Mild right basilar airspace disease persists. No acute bony abnormality. Osteopenia. IMPRESSION: Suspect mild persistent right basilar airspace disease. {THIS IS WHERE SHE HAD INFILTRATES in [place]} * 07/30/2025 LE Dopplers ; Negative for DVT. * 07/03/2023 and 07/31/2025; extended spectrum respiratory pathogen panel negative last admission and in 2022. * 08/17/2025 white blood cell count 8.3 k with 4.5% eosinophils, - absolute eosinophil count 400 which is increased. Also had elevated eosinophils on June 29, 2023, 740 eosinophils, June 21, 2023 with 500 eosinophils. from day of discharge from [place] Aug 04, 2025, [facility]: Patient with tobacco use (35 PY, quit 2003), Alpha 1 anti trypsin genotype MM. PFTs 11/28/2022 with FEV1 0.59 L, 26%, no bronchodilator response, airtrapping, decreased DLCO when corrected for alveolar volume, severe apical panlobular emphysema on CT scan of the neck from 03/04/2019 and chest on 08/13/2022, hypoxic respiratory failure on 2 L NC rest and activity since 2020, hypercarbic respiratory failure with ABG on 2 L was 7.42/56/47 and started on noninvasive ventilation with 4 L bleed in on 12/2022. Unable to tolerate noninvasive ventilation due to mask discomfort despite multiple mask trials. Wheelchair bound after she had a stroke in 2013 with dyspnea on exertion with wheelchair transfers and pivots Echocardiogram from 06/06/2022 with LVEF 55-60, grade 1 diastolic dysfunction, Normal right ventricular size and function. Normal right atrial size. No tricuspid regurg to measure RVSP. Inpatient COPD exacerbation and pneumonia 09/15/2022. 09/15/2022 white blood cell count 18.8, eosinophils 1.3%=244/uL. 08/22/2022 white blood cell count 10.5, eosinophils 3.1% equals 326/uL. Last inpatient hospitalization 06/29/2023 (rhinoviral infection). Currently the patient has COPD exacerbation precipitated by turning the heat on in her building. She was seen in the emergency department with wheezing, treated with Solu-Medrol, bronchodilators and antibiotics for possible pneumonia. 07/31/2025: Patient wore the noninvasive ventilator with a BiPAP mode overnight. When I enter the room she was on the BiPAP. She told me she was much better. She told me she is breathing back to her normal. She denied fever cough, phlegm or hemoptysis. She is afebrile. White blood cell count 12.5, creatinine 1.11, BNP 1520, procalcitonin 0.1, CRP 2.2, D-dimer 1.27. Patient told me the BiPAP was uncomfortable and I placed her on noninvasive ventilation with the AVAPS mode and adjusted the settings to come for resulting in a rate of 14, tidal volume 500, EPAP 7, minimal inspiratory pressure 8, maximal inspiratory pressure 25, inspiratory time 1.2, rise of 5 which is a slowest and 30% FiO2. She was requesting to come off of the noninvasive ventilator and I placed her on 2 L nasal cannula and she had no respiratory distress with saturations 96%. Plan: Agree with treatment for COPD exacerbation. Patient has improved and I will change her Solu-Medrol to prednisone 40 mg p.o. q.day. she has no wheezing and I will decrease her duo nebulizer frequency from q.4 hours to q.6 hours. I will continued Claritin 10 mg p.o. q.day and guaifenesin 600 mg p.o. b.i.d.. I will send a respiratory pathogen panel, urine for Legionella antigen, urine for pneumococcal antigen and mycoplasma IgM looking for infectious etiologies. I will obtain a CT scan of the chest to assess for pneumonia, CHF, or other concurrent illnesses. Patient with positive D-dimer the low clinical suspicion for PE. she has had leg trauma with swelling of the legs and will obtain lower extremity Dopplers to exclude DVT. Later in the day patient had a CT scan of the chest which demonstrated a new right middle lobe infiltrate and severe apical predominant centrilobular emphysema. Echocardiogram with an LVEF of 40-45%, grade 1 diastolic dysfunction, normal RV size and function. Normal right atrial size. PASP 19. 08/01/2025: Patient tells me she has rest shortness of breath and the same dyspnea on exertion is yesterday. She has coughing but the phlegm is stuck in her throat. Her nasal congestion is the same. Overall she feels slightly worse than yesterday. When I enter the room she was on 2 L nasal cannula saturation 90%. She is afebrile. White blood cell count 12.5, creatinine 1.19, yesterday she was positive 455 mL and is cumulative positive 495 mL since admission. Weight today is 66.4. Plan: Will continue treatment for COPD exacerbation and pneumonia. Continue prednisone 40 mg p.o. q.day, day 3. Continue ceftriaxone and azithromycin, both day 3. Continue DuoNebs q.6 hours. I will increase guaifenesin from 600 to 1200 mg p.o. b.i.d.. I will add a Cornet flutter valve. Continue Claritin 10 Q.day. respiratory pathogen panel, urine for Legionella antigen, urine for pneumococcal antigen, serum mycoplasma IgM pending. 08/02/2025: Patient complains of fatigue. She still has shortness of breath at rest and dyspnea on exertion walking from the bed to the chair. She was in the chair 15 hours yesterday. She denies cough and phlegm and says that her phlegm just gets stuck in her throat. Last night she did not wear the noninvasive ventilator and wore 2 L nasal cannula. When I enter the room she was on 2 L nasal cannula saturations 99%. I decreased from 1 L and her saturations were 97%. White blood cell count 11.2, creatinine 1.44. BNP is unchanged from 1520 on 07/31 to 1580 today. she is using a Cornet flutter valve. Yesterday she was positive 2 mL and cumulative she is positive 1.2 L since admission. Her weight today is 68.7. Lasix is on on hold because of creatinine at 1.44. MRSA nasal swab negative. Respiratory pathogen panel negative, serum mycoplasma IgM negative, urine for Legionella antigen, urine for pneumococcal antigen pending. Plan: Will continue treatment for COPD exacerbation and pneumonia. Continue prednisone 40 mg p.o. q.day, day 4. Continue ceftriaxone and azithromycin, both day 4. Continue DuoNebs q.6 hours, guaifenesin 1200 mg p.o. b.i.d. I will add Mucomyst nebulizers q.6 hours.. Continue flutter valve. Continue Claritin 10 Q.day. 08/03/2025: Patient tells me she is better today. She feels she is breathing 80% back to her normal. Her cough is at her normal with no phlegm. She still gets phlegm stuck in her throat. She has sinus congestion that is controlled with Claritin. She did not do any walking yesterday. When I enter the room she was on 1 L nasal cannula saturation 92%. Yesterday she was 770 mL positive. Cumulative since admission she is 1.7 L positive. Her weight today is 69.4 kg. Plan: Will continue treatment for COPD exacerbation and pneumonia. Continue prednisone 40 mg p.o. q.day, day 5. Continue ceftriaxone and azithromycin, both day 5, DC azithromycin after todays dose. Continue DuoNebs q.6 hours, guaifenesin 1200 mg p.o. b.i.d., Mucomyst nebulizers q.6 hours and flutter valve. Continue Claritin 10 Q.day. If patient remains stable and can correct tolerate her home noninvasive ventilator possible discharge on 08/04/2025. 10/04/2024: Patient states she is breathing back at her baseline. She is feeling better than she has in the last month. Her cough is better with minimal phlegm and no hemoptysis. She ambulated from the bed to the chair. When I enter the room the patient was on 1 L nasal cannula saturations 98%. I placed her on room air and the patient saturations were 92%. White blood cell count 8.0, creatinine 1.08, BNP 1470. She is positive 1.0 L yesterday and cumulative she is positive 2.7 L. Her weight today is 70.5. Patient tells me she is ready to go home. Daughter is in the room and agrees. from a pulmonary perspective patient is ready to be discharged on these pulmonary medications: Augmentin 875-125 b.i.d. x4 days. Advair 230-21 at 2 puffs b.i.d. Incruse Ellipta 62.5 at 1 puff q.day Rescue albuterol 2 puffs q.4 hours p.r.n. shortness of breath or wheezing. Guaifenesin 600 mg p.o. b.i.d. p.r.n. congestion Flutter valve q.2 hours while awake Oxygen at rest and with activity per formal home O2 assessment which I have ordered. When she naps or sleeps: Through [facility], AVAPS AE rate of 14, tidal volume 500, EPAP minimum 5, EPAP maximum 15, pressure support minimum 10, pressure support maximum 25 with 3 L bleed in using an over the mouth under the nose mask. Diuretics per hospitalist team. Currently the patient is on Lasix 40 p.o. b.i.d.. Her weight is 70.5 kg. Follow-up in the Pulmonary Clinic in 3 weeks. I gave her our business card and informed our equipment scheduler. 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 Chronic obstructive pulmonary disease Chronic kidney disease, stage 3 Pulmonary embolism (11/2021) Small cell lung cancer Status post chemoradiotherapy. Dyslipidemia Diastolic dysfunction Surgical History Surgical History History of incisional hernia repair History of inguinal hernia repair History of heart artery stent History of cardiac catheterization History of left nephrectomy At age 3, done for unclear reasons. History of abdominal aortic aneurysm repair Family History Family History Sibling Family history of arthritis Lung transplant status, bilateral COPD (chronic obstructive pulmonary disease) Colon cancer Father Melanoma Mother No problems noted. Social History Social History Social History: [id number]: Isabela Ponce, friend. Code status: Full code. Smoking packs per day: 1 Smoking cigarettes per day: 20.0 Years smoked: 30 Smoking pack-years: 30.00 Smoking status: Former smoker Tobacco type: cigarettes Second hand tobacco smoke exposure: No Smoking end date: 09/14/05 Alcohol intake: never Alcohol use details: No alcohol since 2005. Substance use: never Substance use type: does not use Other substance usage details: one pack per day for 40 years Lack of Transportation: No Lack of Food: Never True Current Housing: I Have Housing Concerned About Future Housing: No Difficulty Paying Gas/Electric Bills: No Difficulty Paying for Meds: No Currently Unemployed: No Education: High School Diploma/GED Difficulty w/ Childcare or Family Care: No Additional living arrangements comments: Lives in assisted living. Wheelchair-bound due to right-sided deficits from prior CVA. Spiritual care concerns: No Meds Home Medications and Allergies Home Medications ?Medication ?Instructions ?Recorded ?Confirmed ?Type acetaminophen 500 mg capsule 500 mg PO Q6H PRN Pain (Scale 11/24/19 08/17/25 History Score 1-3) aspirin 81 mg tablet,delayed 81 mg PO DAILY 11/24/19 08/17/25 History release (Adult Aspirin Regimen) atorvastatin 40 mg tablet 40 mg PO HS 11/24/19 08/17/25 History levetiracetam 250 mg tablet 250 mg PO Q12H 11/24/19 08/17/25 History (Keppra) melatonin 5 mg capsule 5 mg PO HS 11/24/19 08/17/25 History potassium chloride 20 mEq 20 meq PO BID 11/24/19 08/17/25 History tablet,extended release multivitamin with folic acid 400 1 tablet PO DAILY 03/10/22 08/17/25 History mcg tablet (Daily-Annie (with folic acid)) pantoprazole 40 mg tablet,delayed 40 mg PO QAM #30 tabs 05/06/22 08/17/25 Rx release comp.stocking,knee,long,medium #12 ea 06/02/22 08/17/25 Rx furosemide 40 mg tablet (Lasix) 40 mg PO BID #60 tabs 06/02/22 08/17/25 Rx alprazolam 0.5 mg tablet 0.5 mg PO Q8-12H PRN Anxiety 06/29/23 08/17/25 History ferrous sulfate 325 mg (65 mg 325 mg PO TID 12/02/23 08/17/25 History iron) tablet Advair HFA 230 mcg-21 See Rx Instructions .Route 05/23/25 08/17/25 Rx mcg/actuation aerosol inhaler .COMPLEX #12 grams (fluticasone propion-salmeterol) albuterol sulfate 90 mcg/actuation 2 puff inhalation Q6H PRN 07/06/25 08/17/25 Rx aerosol inhaler shortness of breath or wheezing #8.5 grams escitalopram oxalate 10 mg tablet 10 mg PO DAILY 07/18/25 08/17/25 History levocetirizine 5 mg tablet 5 mg PO QPM 07/18/25 08/17/25 History ropinirole 2 mg tablet 1 mg PO TID 07/18/25 08/17/25 History ergocalciferol (vitamin D2) 1,250 1,250 mcg PO WEEKLY 07/30/25 08/17/25 History mcg (50,000 unit) capsule (Vitamin D2) gabapentin 300 mg capsule 300 mg PO TID 07/30/25 08/17/25 History spironolactone 25 mg tablet 25 mg PO DAILY 07/30/25 08/17/25 History (Aldactone) umeclidinium 62.5 mcg/actuation See Rx Instructions .Route 07/31/25 08/17/25 Rx blister powder for inhalation .COMPLEX #30 grams (Incruse Ellipta) mucus clearing device #10 ea 08/04/25 08/17/25 Rx guaifenesin 400 mg tablet (Mucus 400 mg PO DAILY 08/17/25 08/17/25 History Relief) Allergies Allergy/AdvReac Type Severity Reaction Status Date / Time Iodinated Contrast Media Allergy Unknown Rash Verified 08/17/25 13:55 latex Allergy Unknown Unknown Verified 08/17/25 13:55 adhesive tape AdvReac Rash Verified 08/17/25 13:55 nickel AdvReac Rash Verified 08/17/25 13:55 Vital Signs Vital Signs - 24 hr 08/17/25 16:55 08/17/25 16:55 08/17/25 17:00 Temperature 36.6 C Pulse Rate 65 65 65 Respiratory Rate 20 20 Blood Pressure 129/79 Pulse Oximetry 100 100 Oxygen Delivery BiPAP Oxygen Flow Rate Fraction of Inspired Oxygen 40 12/04/25 17:34 08/17/25 17:41 08/17/25 18:00 Temperature Pulse Rate 93 91 69 Respiratory Rate 28 H 23 H Blood Pressure Pulse Oximetry Oxygen Delivery Oxygen Flow Rate Fraction of Inspired Oxygen 08/17/25 20:00 08/17/25 20:00 08/17/25 20:40 Temperature Pulse Rate 70 63 Respiratory Rate 16 Blood Pressure Pulse Oximetry 95 Oxygen Delivery BiPAP Oxygen Flow Rate Fraction of Inspired Oxygen 30 08/17/25 20:41 08/17/25 20:51 08/17/25 20:53 Temperature 36.5 C Pulse Rate 77 63 86 Respiratory Rate 16 16 18 Blood Pressure 117/49 L Pulse Oximetry 98 99 Oxygen Delivery BiPAP Oxygen Flow Rate Fraction of Inspired Oxygen 08/17/25 21:34 08/17/25 23:51 08/18/25 00:00 Temperature Pulse Rate 63 79 Respiratory Rate 16 Blood Pressure Pulse Oximetry 98 94 Oxygen Delivery BiPAP BiPAP Oxygen Flow Rate Fraction of Inspired Oxygen 30 08/18/25 00:00 08/18/25 00:00 08/18/25 02:00 Temperature 36.3 C L Pulse Rate 68 63 53 L Respiratory Rate 19 Blood Pressure 118/64 Pulse Oximetry 96 Oxygen Delivery Oxygen Flow Rate Fraction of Inspired Oxygen 08/18/25 02:27 08/18/25 03:22 08/18/25 04:00 Temperature Pulse Rate 52 L 51 L Respiratory Rate 18 Blood Pressure Pulse Oximetry 95 95 Oxygen Delivery BiPAP BiPAP Oxygen Flow Rate Fraction of Inspired Oxygen 30 08/18/25 04:00 08/18/25 05:04 08/18/25 06:00 Temperature 36.4 C L Pulse Rate 71 57 L 50 L Respiratory Rate 21 H 18 Blood Pressure 162/109 H Pulse Oximetry 97 97 Oxygen Delivery BiPAP Oxygen Flow Rate Fraction of Inspired Oxygen 08/18/25 08:00 08/18/25 08:00 08/18/25 08:00 Temperature 36.6 C Pulse Rate 79 78 Respiratory Rate 19 16 Blood Pressure 119/67 Pulse Oximetry 91 95 Oxygen Delivery Nasal Cannula Oxygen Flow Rate 2 Fraction of Inspired Oxygen 08/18/25 08:00 08/18/25 08:00 08/18/25 08:05 Temperature Pulse Rate 78 79 Respiratory Rate 19 Blood Pressure Pulse Oximetry 95 Oxygen Delivery Nasal Cannula Oxygen Flow Rate 2 Fraction of Inspired Oxygen 08/18/25 10:00 08/18/25 11:34 08/18/25 11:39 Temperature Pulse Rate 69 68 94 Respiratory Rate 19 19 Blood Pressure Pulse Oximetry Oxygen Delivery Oxygen Flow Rate Fraction of Inspired Oxygen 08/18/25 12:00 08/18/25 12:00 08/18/25 12:00 Temperature 36.4 C Pulse Rate 89 83 Respiratory Rate 20 Blood Pressure 109/64 Pulse Oximetry 93 93 Oxygen Delivery Nasal Cannula Oxygen Flow Rate 2 Fraction of Inspired Oxygen 08/18/25 14:00 Temperature Pulse Rate 90 Respiratory Rate Blood Pressure Pulse Oximetry Oxygen Delivery Oxygen Flow Rate Fraction of Inspired Oxygen Exam Narrative: GEN: Alert, oriented, moderate respiratory distress, using accessory muscles and speaking in short sentences; Isabela helps give her history. HEENT: pupils are equal, EOMI, symmetrical face; oral membranes moist, Mallampati III airway, upper dentures, lower dentures do not fit, not wearing NECK: Trachea is midline CHEST: Equal air entry, symmetric excursion, scattered rhonchi, prolonged expiration; few wheezes CV: Regular S1S2 no m/g/r ABD : (+) bowel sounds; she had a diastasis recti hernia with a small bowling ball sized extrusion of ventral abdominal wall Extremities : no clubbing, cyanosis; she has an swollen left knee, bruised, healing gash on left lateral leg, Kerlix around the right knee from a fall with flap of skin sewn on and wrapped. no calf tenderness. PSYCH: normal thought and speech, gait is not tested; she has right hemiplegia, stays in a wheelchair since stroke 10 years ago. Neuro: General: oriented to person, oriented to place and oriented to time Extrem: General: normal to inspection and edema Other: Positive bilateral lower extremity edema. Psych: Appearance: grossly normal Results Laboratory Findings 08/18/25 06:04 08/18/25 06:04 ABG, PT/INR, D-dimer: ABG ABG pH 7.373 (7.350-7.450) 08/18/25 05:06 ABG pCO2 67.3 mmHg (35.0-45.0) H* 08/18/25 05:06 ABG pO2 66.8 mmHg (80.0-100.0) L 08/18/25 05:06 ABG O2 Saturation 92.1 % (95.0-100.0) L 08/18/25 05:06 Abnormal lab findings: Abnormal Labs 08/17/25 08/17/25 08/18/25 06:44 08:59 05:06 RBC 3.92 L Hgb 11.3 L MCHC 30.1 L RDW Lymph % (Auto) 14.5 L [place] % (Auto) 10.4 H Eos % (Auto) 4.5 H [place] # (Auto) 0.9 H Eos # (Auto) 0.4 H Abs Immat Gran (auto) 0.04 H Neutrophils % (Manual) Lymphocytes % (Manual) Abs Neuts (Manual) Abs Lymphs (Manual) ABG pCO2 63.0 H* 67.3 H* ABG pO2 79.0 L 66.8 L ABG HCO3 37.9 H 38.3 H ABG O2 Saturation 92.1 L ABG O2 Content 15.5 L Total Hemoglobin 11.9 L Carbon Dioxide > 40 H Anion Gap BUN 24 H Creatinine 1.22 H Estimated GFR 43 L Glucose Magnesium AST NT-Pro-B Natriuret Pep 729 H 08/18/25 06:04 RBC Hgb MCHC 29.1 L RDW 14.6 H Lymph % (Auto) Bailey % (Auto) Eos % (Auto) Bailey # (Auto) Eos # (Auto) Abs Immat Gran (auto) Neutrophils % (Manual) 95 H Lymphocytes % (Manual) 1 L Abs Neuts (Manual) 6.95 H Abs Lymphs (Manual) 0.07 L ABG pCO2 ABG pO2 ABG HCO3 ABG O2 Saturation ABG O2 Content Total Hemoglobin Carbon Dioxide 37 H Anion Gap 3 L BUN 28 H Creatinine 1.11 H Estimated GFR 48 L Glucose 139 H Magnesium 2.4 H AST 44 H NT-Pro-B Natriuret Pep 500 H
[2025-08-18] MEDS: LORATADINE 5 MG TABLET PO (17:32)
[2025-08-18] MEDS: ALPRAZolam (*CRX) 0.5 MG TABLET PO (20:46)
[2025-08-18] MEDS: ATORVASTATIN 40 MG TABLET PO (20:46)
[2025-08-18] MEDS: busPIRone HCL 2.5 MG TABLET PO (20:46)
[2025-08-18] MEDS: MELATONIN 5 MG TABLET PO (20:47)
[2025-08-18] MEDS: HYDROcodone/acetaminophen (*CRX) 5-325 MG TABLET 1 TAB PO (20:47)
[2025-08-19] VITALS (26 sets, daily range): BP systolic 116–138; BP diastolic 51–68; PULSE 64–96; RESP 16–22; TEMP 36.4–37.2; O2SAT 91–100
[2025-08-19 04:41] LABS: Hematocrit 34.3 % (37.0-47.0); Hemoglobin 10.3 g/dL (12.0-15.0); Immature Granulocyte Percent A 0.6 % (0-0.5); Lymphocytes Absolute Auto 0.48 K/mm3 (0.9-3.2); Mean Corpuscular HGB Conc 30.0 g/dl (32-36); Mean Corpuscular Hemoglobin 28.7 pg (26-34); Mean Corpuscular Volume 95.5 fl (80-100); Nucleated Red Blood Cells Absolute Auto 0.000 K/mm3 (0.0-0.012); Nucleated Red Blood Cells Perc 0.0 % (0.0-0.2); Platelet Count Result 258 k/mm3 (150-375); Red Blood Count 3.59 M/mm3 (4.2-5.4); White Blood Count 13.2 K/mm3 (4.5-10.0)
[2025-08-19 05:32] LABS: Alanine Aminotransferase 18 U/L (6-35); Albumin Level 3.5 g/dL (3.5-5.1); Alkaline Phosphatase 66 U/L (38-126); Anion Gap 3 mmol/L (4-12); Aspartate Amino Transferase 23 U/L (14-36); Bilirubin,Total 0.3 mg/dL (0.2-1.3); Blood Urea Nitrogen 37 mg/dL (7-17); Calcium 8.3 mg/dL (8.4-10.2); Carbon Dioxide 33 mmol/L (22-30); Chloride 102 mmol/L (98-107); Estimated CRCL calculation 32 ml/min; Estimated Glomerular Filt Rate 42; Glucose 131 mg/dL (65-110); Magnesium 2.4 mg/dL (1.6-2.3); NT Pro B Type Natriuretic Pept 1200 pg/mL (19.9-100); Potassium 4.0 mmol/L (3.4-5.0); Sodium 138 mmol/L (137-145); Total Protein 6.4 g/dL (6.3-8.2)
[2025-08-19] MEDS: IPRATROPIUM 0.5 MG/ALBUTEROL SULFATE 2.5 MG (BASE) AMPUL.NEB 3 ML INHALATION ×4 (07:32→20:37)
--- NOTE | 2025-08-19 07:59 | PM.IMPN2 ---
Assessment and Plan Assessment and Plan (1) Acute hypercapnic respiratory failure: Code(s): J96.02 - Acute respiratory failure with hypercapnia Status: Acute Assessment and Plan: - has history of gold grade 4, history of alpha-1 antitrypsin genotype mm - PH 7.397, pCO2 63, PO2 79, bicarb 37.9, oxygen saturation 95.3. - Consult to pulmonology for consideration and further management - BiPap per settings - continue oxygen per protocol. - monitor closely - patient reports she does not use her BIPAP at home due to feeling claurophobic - pulmonary added buspirone scheduled - encourage patient to use BIPAP machine at night (2) Acute exacerbation of chronic obstructive pulmonary disease: Code(s): J44.1 - Chronic obstructive pulmonary disease with (acute) exacerbation Status: Acute Assessment and Plan: - will continue solumedrol - consulted Pulmonolgy - oxygen per protocol - Duonebs QID - quaifenesin for cough - question if patient's COPD is progressing versus an acute exacerbation - PT/OT, patient will need SNF on discharge - pulmonary recommended adding medications as outpatient (3) Bilateral pneumonia: Qualifiers: Lung location: lower lobe of lung Pneumonia type: due to unspecified organism Qualified Code(s): J18.9 - Pneumonia, unspecified organism Code(s): J18.9 - Pneumonia, unspecified organism Status: Acute Assessment and Plan: - will continue IVPB rocephin and Azithromycin - first doses in ER - monitor labs -f/u blood cultures -AM labs -patient will need SNF on discharge (4) Diastolic CHF: Qualifiers: Heart failure chronicity: unspecified Qualified Code(s): I50.30 - Unspecified diastolic (congestive) heart failure Code(s): I50.30 - Unspecified diastolic (congestive) heart failure Status: Chronic Assessment and Plan: - echocardiogram shows 40-45% left ventricular diastolic dysfunction - BNP 729 - continue lasix BID - Cardiology following - continue home medications - per cardiology change patient's furosemide to PO Bumetanide 1 mg BID and continue spironolactone 25 mg daily on discharge - f/u with cardiology Dr. Meyers 2 weeks after discharge (5) Laceration: Status: Acute Assessment and Plan: ER provider cleansed, applied Steri-Strips then sewed over the Steri-Strips to hold everything together. Tetanus updated. (6) CKD (chronic kidney disease) stage 3, GFR 30-59 ml/min: Qualifiers: Chronic kidney disease stage 3 subtype: unspecified whether 3a or 3b Qualified Code(s): N18.30 - Chronic kidney disease, stage 3 unspecified Code(s): N18.30 - Chronic kidney disease, stage 3 unspecified Status: Acute Assessment and Plan: - BUN 24, creat 1.22 - with IV lasix, will monitor BMP dialy (7) Iron deficiency anemia: Code(s): D50.9 - Iron deficiency anemia, unspecified Status: Acute Assessment and Plan: Hemoglobin currently stable at 11.3 hematocrit 37.5 will monitor closely (8) Hypertension: Qualifiers: Hypertension type: primary hypertension Qualified Code(s): I10 - Essential (primary) hypertension Code(s): I10 - Essential (primary) hypertension Status: Chronic Assessment and Plan: Continue medications monitor vital signs (9) Dyslipidemia: Code(s): E78.5 - Hyperlipidemia, unspecified Status: Acute Assessment and Plan: continue home medications (10) Seizure disorder: Code(s): G40.909 - Epilepsy, unspecified, not intractable, without status epilepticus Status: Chronic Assessment and Plan: continue keppra seizure precautions monitor (11) Weakness: Code(s): R53.1 - Weakness Status: Acute Assessment and Plan: PT and OT to evaluate patient question if patient will be able to return to SNF or if she will need a higher level of care SNF vs possible NH on discharge Subjective Date/time seen: 08/19/25 07:59 Interval history: Patient seen for a follow up visit. Patient sitting up in chair, in some mild respiratory distress. Patient just completed ambulating with PT a short distance and feels short of breath. Patient's oxygen saturations dropped into the low 80s and PT increased oxygen while patient recovered. Patient continues on IV antibiotics and IV steroids. Pulmonology following patient. Patient will need SNF when ready to discharge. Review of Systems Review of Systems: All systems reviewed & are unremarkable except as noted in HPI and below Objective Data Vital Signs Vital Signs: Vital Signs - 24 hr 08/18/25 08:00 08/18/25 08:00 08/18/25 08:00 Temperature 97.9 F Pulse Rate 79 78 Respiratory Rate 19 16 Blood Pressure 119/67 Pulse Oximetry 91 95 Oxygen Delivery Nasal Cannula Oxygen Flow Rate 2 Fraction of Inspired Oxygen 08/18/25 08:00 08/18/25 08:00 08/18/25 08:05 Temperature Pulse Rate 78 79 Respiratory Rate 19 Blood Pressure Pulse Oximetry 95 Oxygen Delivery Nasal Cannula Oxygen Flow Rate 2 Fraction of Inspired Oxygen 08/18/25 10:00 08/18/25 11:34 08/18/25 11:39 Temperature Pulse Rate 69 68 94 Respiratory Rate 19 19 Blood Pressure Pulse Oximetry Oxygen Delivery Oxygen Flow Rate Fraction of Inspired Oxygen 08/18/25 12:00 08/18/25 12:00 08/18/25 12:00 Temperature 97.6 F Pulse Rate 89 83 Respiratory Rate 20 Blood Pressure 109/64 Pulse Oximetry 93 93 Oxygen Delivery Nasal Cannula Oxygen Flow Rate 2 Fraction of Inspired Oxygen 08/18/25 14:00 08/18/25 16:00 08/18/25 16:00 Temperature 98.5 F Pulse Rate 90 77 75 Respiratory Rate 22 H Blood Pressure 123/71 Pulse Oximetry 93 Oxygen Delivery Oxygen Flow Rate Fraction of Inspired Oxygen 08/18/25 16:00 08/18/25 16:13 08/18/25 16:18 Temperature Pulse Rate 81 84 Respiratory Rate 19 19 Blood Pressure Pulse Oximetry 93 Oxygen Delivery Nasal Cannula Oxygen Flow Rate 2 Fraction of Inspired Oxygen 08/18/25 18:00 08/18/25 20:00 08/18/25 20:00 Temperature Pulse Rate 105 H 90 Respiratory Rate Blood Pressure Pulse Oximetry 93 Oxygen Delivery Nasal Cannula Oxygen Flow Rate 2 Fraction of Inspired Oxygen 08/18/25 20:28 08/18/25 22:00 08/18/25 22:12 Temperature 98.6 F Pulse Rate 91 73 Respiratory Rate 22 H Blood Pressure 128/69 Pulse Oximetry 90 93 Oxygen Delivery Nasal Cannula Oxygen Flow Rate 2 Fraction of Inspired Oxygen 08/18/25 22:12 08/18/25 22:19 08/18/25 23:53 Temperature 98.7 F Pulse Rate 93 95 75 Respiratory Rate 18 18 16 Blood Pressure 104/58 L Pulse Oximetry 96 Oxygen Delivery Oxygen Flow Rate Fraction of Inspired Oxygen 08/19/25 00:00 08/19/25 00:00 08/19/25 02:00 Temperature Pulse Rate 70 67 Respiratory Rate Blood Pressure Pulse Oximetry 96 Oxygen Delivery BiPAP Oxygen Flow Rate Fraction of Inspired Oxygen 30 08/19/25 04:00 08/19/25 04:00 08/19/25 05:00 Temperature Pulse Rate 65 Respiratory Rate Blood Pressure Pulse Oximetry 96 96 Oxygen Delivery BiPAP Nasal Cannula Oxygen Flow Rate 2 Fraction of Inspired Oxygen 30 08/19/25 05:39 08/19/25 06:17 08/19/25 07:31 Temperature 98.9 F 98.3 F Pulse Rate 64 86 79 Respiratory Rate 16 22 H Blood Pressure 127/65 121/67 Pulse Oximetry 95 94 Oxygen Delivery Oxygen Flow Rate Fraction of Inspired Oxygen Intake/Output Intake/Output: Intake & Output 08/16/25 08/17/25 08/18/25 08/19/25 23:59 23:59 23:59 23:59 Intake Total 530 510 790 Output Total 100 600 300 Balance 430 -90 490 Meds/Results Medications: Active Medications Generic Name Dose Route Start Last Admin Trade Name Freq PRN Reason Stop Dose Admin Acetaminophen 650 mg 08/17/25 10:40 Acetaminophen 325 Mg Tablet PO Q4H PRN Mild Pain (1-3) or Fever Hydrocodone Bitart/Acetaminophen 1 tab 08/17/25 10:40 08/18/25 20:47 Hydrocodone/Acetaminophen (*Crx) 5-325 Mg Tablet PO 1 tab Q4H PRN Administration Moderate Pain (4-6) Al Hydrox/Mg Hydrox/Simethicone 30 ml 08/17/25 10:40 Mag Hydrox/Al Hydrox/Simeth 30 Ml Udc PO QID PRN Dyspepsia Albuterol 2 puff 08/17/25 14:38 Albuterol Sulfate (*Sp) Aerosol 1 Puff INHALATION Q6HRT PRN Shortness Of Breath Or Wheezing Albuterol/Ipratropium 3 ml 08/17/25 16:00 08/19/25 07:32 Ipratropium 0.5 Mg/Albuterol Sulfate 2.5 Mg (Base) Ampul.Neb 3 Ml INHALATION 3 ml QIDRT JESSIE Administration Alprazolam 0.5 mg 08/17/25 14:38 08/18/25 20:46 Alprazolam (*Crx) 0.5 Mg Tablet PO 0.5 mg Q8H PRN Administration Anxiety Aspirin 81 mg 08/18/25 09:00 08/18/25 09:34 Aspirin 81 Mg Enteric Tablet PO 81 mg DAILY JESSIE Administration Atorvastatin Calcium 40 mg 08/17/25 21:00 08/18/25 20:46 Atorvastatin 40 Mg Tablet PO 40 mg HS JESSIE Administration Buspirone HCl 2.5 mg 08/18/25 21:00 08/18/25 20:46 Buspirone Hcl 2.5 Mg Tablet PO 2.5 mg Q12HR JESSIE Administration Enoxaparin Sodium 40 mg 08/17/25 11:00 08/18/25 09:34 Enoxaparin 40 Mg/0.4 Ml Syringe SUB-Q 40 mg DAILY JESSIE Administration Escitalopram Oxalate 10 mg 08/18/25 09:00 08/18/25 09:33 Escitalopram Oxalate 10 Mg Tablet PO 10 mg DAILY JESSIE Administration Ferrous Sulfate 325 mg 08/17/25 17:00 08/18/25 17:32 Ferrous Sulfate 325 Mg Tablet BY MOUTH 325 mg TID JESSIE Administration Furosemide 40 mg 08/17/25 11:00 08/18/25 17:32 Furosemide Inj 40 Mg/4 Ml Vial IV PUSH 40 mg BID JESSIE Administration Gabapentin 300 mg 08/17/25 22:00 08/18/25 21:01 Gabapentin 300 Mg Capsule PO 300 mg Q8HR JESSIE Administration Guaifenesin 600 mg 08/17/25 21:00 08/18/25 20:45 Guaifenesin 12 Hr 600 Mg Tabcr PO 600 mg Q12HR JESSIE Administration Azithromycin 500 mg/ Sodium 250 mls @ 250 mls/hr 08/18/25 10:00 08/18/25 10:17 Chloride IVPB 250 mls/hr Q24H JESSIE Administration Ceftriaxone Sodium 2 gm/ 100 mls @ 200 mls/hr 08/18/25 09:00 08/18/25 09:34 Sodium Chloride IVPB 200 mls/hr Q24H JESSIE Administration Levetiracetam 250 mg 08/17/25 21:00 08/18/25 20:46 Levetiracetam 250 Mg Tablet PO 250 mg Q12H JESSIE Administration Loratadine 5 mg 08/17/25 18:00 08/18/25 17:32 Loratadine 5 Mg Tablet PO 5 mg QPM JESSIE Administration Magnesium Hydroxide 30 ml 08/17/25 10:40 Magnesium Hydroxide Susp 30 Ml Udc PO DAILY PRN Constipation Melatonin 5 mg 08/17/25 21:00 08/18/25 20:47 Melatonin 5 Mg Tablet PO 5 mg HS JESSIE Administration Methylprednisolone Sodium Succinate 40 mg 08/17/25 17:00 08/18/25 20:48 Methylprednisolone Sod Succ 40 Mg Vial IV PUSH 40 mg QID JESSIE Administration Multivitamins Therapeutic 1 tablet 08/18/25 09:00 08/18/25 09:33 Multivitamins Therapeutic Tab (*Bkc) PO 1 tablet DAILY JESSIE Administration Ondansetron HCl 4 mg 08/17/25 10:40 Ondansetron Inj 4 Mg/2 Ml Vial IV PUSH Q6H PRN Nausea And Vomiting Pantoprazole Sodium 40 mg 08/18/25 09:00 08/18/25 09:33 Pantoprazole 40 Mg Tablet PO 40 mg QAM JESSIE Administration Potassium Chloride 20 meq 08/17/25 17:00 08/18/25 17:32 Potassium Chloride 20 Meq Er Tablet PO 20 meq BID JESSIE Administration Ropinirole HCl 1 mg 08/17/25 17:00 08/18/25 17:32 Ropinirole Hcl 1 Mg Tablet PO 1 mg TID JESSIE Administration Fluticasone/Salmeterol 2 puff 08/17/25 20:00 Fluticasone/Salmeterol 230-21 Mcg Inhaler 1 Puff INHALATION On Hold: 08/17/25 17:08 Q12HRT JESSIE Comment: HOLD WHILE ON DUONEB UPDRAFT. ALSO PATIENT ON SOLUEDROL Spironolactone 25 mg 08/18/25 09:00 08/18/25 09:33 Spironolactone 25 Mg Tablet PO 25 mg DAILY JESSIE Administration Radiology Results: ITS Impressions Chest X-Ray 08/17/25 07:42 IMPRESSION: 1. Suspect mild persistent right basilar airspace disease. Labs Labs: Laboratory Results - last 24 hr 08/19/25 04:09 WBC 13.2 H RBC 3.59 L Hgb 10.3 L Hct 34.3 L MCV 95.5 MCH 28.7 MCHC 30.0 L RDW 14.6 H Plt Count 258 MPV 10.0 Immature Gran % (Auto) 0.6 H Neut % (Auto) 94.2 H Lymph % (Auto) 3.6 L [place] % (Auto) 1.5 L Eos % (Auto) 0.0 Baso % (Auto) 0.1 L Lymph # (Auto) 0.48 L [place] # (Auto) 0.2 Eos # (Auto) 0.0 Baso # (Auto) 0.0 Abs Immat Gran (auto) 0.08 H Absolute Neuts (auto) 12.5 H Absolute Nucleated RBC 0.000 Nucleated RBC % 0.0 Sodium 138 Potassium 4.0 Chloride 102 Carbon Dioxide 33 H Anion Gap 3 L BUN 37 H Creatinine 1.24 H Estim Creat Clear Calc 32 Estimated GFR 42 L Glucose 131 H Calcium 8.3 L Magnesium 2.4 H Total Bilirubin 0.3 AST 23 ALT 18 Alkaline Phosphatase 66 NT-Pro-B Natriuret Pep 1200 H Total Protein 6.4 Albumin 3.5 Quality VTE Prophylaxis VTE prophylaxis: pharmacologic ordered
[2025-08-19] MEDS: FUROSEMIDE INJ 40 MG/4 ML VIAL IV PUSH ×2 (09:06→17:36)
[2025-08-19] MEDS: cefTRIAXone 2 GM in SODIUM CHLORIDE 0.9% IV 100 ML 200 ML IVPB (09:06)
[2025-08-19] MEDS: SPIRONOLACTONE 25 MG TABLET PO (09:07)
[2025-08-19] MEDS: ESCITALOPRAM OXALATE 10 MG TABLET PO (09:07)
[2025-08-19] MEDS: FERROUS SULFATE 325 MG TABLET BY MOUTH ×3 (09:07→17:35)
[2025-08-19] MEDS: PANTOPRAZOLE 40 MG TABLET PO (09:07)
[2025-08-19] MEDS: ASPIRIN 81 MG ENTERIC TABLET PO (09:07)
[2025-08-19] MEDS: POTASSIUM CHLORIDE 20 MEQ ER TABLET PO ×2 (09:07→17:35)
[2025-08-19] MEDS: ENOXAPARIN 40 MG/0.4 ML SYRINGE SUB-Q (09:07)
[2025-08-19] MEDS: MULTIVITAMINS THERAPEUTIC TAB (*BKC) 1 TABLET PO (09:07)
[2025-08-19] MEDS: busPIRone HCL 2.5 MG TABLET PO ×2 (09:07→21:42)
[2025-08-19] MEDS: guaiFENesin 12 HR 600 MG TABCR PO ×2 (09:07→21:41)
[2025-08-19] MEDS: AZITHROMYCIN IV 500 MG in SODIUM CHLORIDE 0.9% IV 250 ML IVPB (09:53)
[2025-08-19] MEDS: HYDROcodone/acetaminophen (*CRX) 5-325 MG TABLET 1 TAB PO (13:53)
[2025-08-19] MEDS: GABAPENTIN 300 MG CAPSULE PO ×2 (13:53→21:41)
[2025-08-19] MEDS: LORATADINE 5 MG TABLET PO (17:35)
[2025-08-19] MEDS: ATORVASTATIN 40 MG TABLET PO (21:41)
[2025-08-19] MEDS: MELATONIN 5 MG TABLET PO (21:42)
[2025-08-20] VITALS (22 sets, daily range): BP systolic 121–137; BP diastolic 58–70; PULSE 60–89; RESP 18–24; TEMP 36.5–36.9; O2SAT 90–100
[2025-08-20 04:26] LABS: Hematocrit 35.0 % (37.0-47.0); Hemoglobin 10.5 g/dL (12.0-15.0); Immature Granulocyte Percent A 1.1 % (0-0.5); Lymphocytes Absolute Auto 0.43 K/mm3 (0.9-3.2); Mean Corpuscular HGB Conc 30.0 g/dl (32-36); Mean Corpuscular Hemoglobin 28.7 pg (26-34); Mean Corpuscular Volume 95.6 fl (80-100); Nucleated Red Blood Cells Absolute Auto 0.000 K/mm3 (0.0-0.012); Nucleated Red Blood Cells Perc 0.0 % (0.0-0.2); Platelet Count Result 249 k/mm3 (150-375); Red Blood Count 3.66 M/mm3 (4.2-5.4); White Blood Count 13.1 K/mm3 (4.5-10.0)
[2025-08-20 04:40] LABS: Alanine Aminotransferase 18 U/L (6-35); Albumin Level 3.6 g/dL (3.5-5.1); Alkaline Phosphatase 62 U/L (38-126); Anion Gap 3 mmol/L (4-12); Aspartate Amino Transferase 24 U/L (14-36); Bilirubin,Total 0.3 mg/dL (0.2-1.3); Calcium 8.1 mg/dL (8.4-10.2); Carbon Dioxide 31 mmol/L (22-30); Chloride 104 mmol/L (98-107); Glucose 127 mg/dL (65-110); Magnesium 2.4 mg/dL (1.6-2.3); Sodium 138 mmol/L (137-145); Total Protein 6.6 g/dL (6.3-8.2)
[2025-08-20 04:52] LABS: Blood Urea Nitrogen 39 mg/dL (7-17); Estimated CRCL calculation 31 ml/min; Estimated Glomerular Filt Rate 41; Potassium 4.1 mmol/L (3.4-5.0)
[2025-08-20] MEDS: IPRATROPIUM 0.5 MG/ALBUTEROL SULFATE 2.5 MG (BASE) AMPUL.NEB 3 ML INHALATION ×3 (07:48→20:50)
[2025-08-20] MEDS: cefTRIAXone 2 GM in SODIUM CHLORIDE 0.9% IV 100 ML 200 ML IVPB (09:09)
[2025-08-20] MEDS: ENOXAPARIN 40 MG/0.4 ML SYRINGE SUB-Q (09:11)
[2025-08-20] MEDS: FERROUS SULFATE 325 MG TABLET BY MOUTH ×3 (09:12→16:44)
[2025-08-20] MEDS: PANTOPRAZOLE 40 MG TABLET PO (09:12)
[2025-08-20] MEDS: guaiFENesin 12 HR 600 MG TABCR PO ×2 (09:12→21:45)
[2025-08-20] MEDS: ASPIRIN 81 MG ENTERIC TABLET PO (09:12)
[2025-08-20] MEDS: POTASSIUM CHLORIDE 20 MEQ ER TABLET PO ×2 (09:12→16:44)
[2025-08-20] MEDS: SPIRONOLACTONE 25 MG TABLET PO (09:12)
[2025-08-20] MEDS: ESCITALOPRAM OXALATE 10 MG TABLET PO (09:12)
[2025-08-20] MEDS: busPIRone HCL 2.5 MG TABLET PO ×2 (09:12→21:45)
[2025-08-20] MEDS: MULTIVITAMINS THERAPEUTIC TAB (*BKC) 1 TABLET PO (09:12)
[2025-08-20] MEDS: FUROSEMIDE INJ 40 MG/4 ML VIAL IV PUSH ×2 (09:12→16:44)
[2025-08-20] MEDS: AZITHROMYCIN IV 500 MG in SODIUM CHLORIDE 0.9% IV 250 ML IVPB (10:30)
--- NOTE | 2025-08-20 11:09 | P.PN_ITS ---
Progress Note: A&P Assessment and Plan (1) Acute hypercapnic respiratory failure: Code(s): J96.02 - Acute respiratory failure with hypercapnia Status: Acute Assessment and Plan: Has history of gold grade 4, history of alpha-1 antitrypsin genotype mm * Appreciate pulmonology consultation and recommendations * Continue with supplemental O2 and BiPAP settings as recommended by pulmonology (2) Acute exacerbation of chronic obstructive pulmonary disease: Code(s): J44.1 - Chronic obstructive pulmonary disease with (acute) exacerbation Status: Acute Assessment and Plan: Recently hospitalized and discharged, now having worsening symptoms. [place] to be due to poor compliance with noninvasive ventilation in overuse of supplemental O2 * As above, appreciate pulmonology recommendations * Continue with supplemental O2 per protocol * Continue IV Solu-Medrol, wean as tolerated * Continue with DuoNebs, expectorants, flutter valve * Will need close outpatient follow-up with pulmonology as her insurance is changing September 14 and will need to be started on new inhalers (3) Bilateral pneumonia: Qualifiers: Lung location: lower lobe of lung Pneumonia type: due to unspecified organism Qualified Code(s): J18.9 - Pneumonia, unspecified organism Code(s): J18.9 - Pneumonia, unspecified organism Status: Acute Assessment and Plan: Repeat CXR 08/17/2025 shows persistent airspace disease * Continue ceftriaxone and azithromycin day #3 * Continue supportive care measures as above * Urine antigens negative for strep pneumonia and Legionella (4) Diastolic CHF: Qualifiers: Heart failure chronicity: unspecified Qualified Code(s): I50.30 - Unspecified diastolic (congestive) heart failure Code(s): I50.30 - Unspecified diastolic (congestive) heart failure Status: Chronic Assessment and Plan: echocardiogram shows 40-45% left ventricular diastolic dysfunction * Appreciate cardiology consultation and recommendation * Continue Lasix 40 mg IV b.i.d., plan to wean as tolerated once she demonstrates improvement * When she is off IV diuresis, she will need to be transitioned to p.o. bumetanide 1 mg b.i.d. her Cardiology recommendations as oral Lasix had not been helping improve her symptoms. Will continue spironolactone 25 mg daily * Fluid restriction 1.5 L per day. Weigh patient daily * Continue compression stockings and leg elevation * Needs outpatient follow-up with Dr. Meyers 2 weeks following discharge (5) Laceration: Status: Acute Assessment and Plan: Developed right knee laceration following fall * Received wound care in ED. Wound was irrigated. 6 sutures placed. * Will need suture removal 10-14 days following placement (6) CKD (chronic kidney disease) stage 3, GFR 30-59 ml/min: Qualifiers: Chronic kidney disease stage 3 subtype: unspecified whether 3a or 3b Qualified Code(s): N18.30 - Chronic kidney disease, stage 3 unspecified Code(s): N18.30 - Chronic kidney disease, stage 3 unspecified Status: Acute Assessment and Plan: Chronic * Slight elevation in creatinine today to 1.27, likely due to IV diuresis * Monitor BMP closely, hold Lasix if any further increase (7) Iron deficiency anemia: Code(s): D50.9 - Iron deficiency anemia, unspecified Status: Acute Assessment and Plan: H&H remaining stable * Monitor daily (8) Hypertension: Qualifiers: Hypertension type: primary hypertension Qualified Code(s): I10 - Essential (primary) hypertension Code(s): I10 - Essential (primary) hypertension Status: Chronic Assessment and Plan: Blood pressure stable, 136/67 today * Continue furosemide and spironolactone * Monitor BP trends (9) Weakness: Code(s): R53.1 - Weakness Status: Acute Assessment and Plan: Progressive weakening with more frequent falls * Continue PT/OT during admission Subjective Date/time seen: 08/20/25 11:09 Interval history: Continues to feel short of breath today. Just finished a breathing treatment w [facility] she did find to be helpful. States that she has been coughing more. Cough is nonproductive. She feels that she has sputum stuck but she cannot get it out. Denies wheezing. She denies chest pain, palpitations, dizziness, lightheadedness, or weakness. She does endorse orthopnea and dyspnea on exertion. States that she has not been up and ambulating today, however yesterday ambulated to the door and then had to go back to bed as she became more short of breath. Continues to endorse swelling in her lower extremities, though notes some improvement overall from admission. Denies abdominal pain, nausea, vomiting, fever, or chills. States she is voiding without difficulty. She is tolerating her diet. She does endorse constipation, states last bowel movement was 3 days ago. Review of Systems Review of Systems: All systems reviewed & are unremarkable except as noted in HPI and below Exam Narrative: General: well nourished, well developed, no acute distress Neuro: awake, alert and oriented x4 HEENT: normocephalic, atraumatic CV: regular rate, rhythm Respiratory: Diminished lung sounds bilaterally, no increased work of breathing, able to speak in complete sentences, on supplemental oxygen Abd: soft, nondistended, nontender, normoactive bowel sounds Extremities: no erythema or swelling Psych: appropriate mood and affect Objective Data Vital Signs Vital Signs: Vital Signs - 24 hr 08/19/25 11:39 08/19/25 12:00 08/19/25 12:00 Temperature 97.7 F Pulse Rate 64 96 Respiratory Rate 18 Blood Pressure 138/68 Pulse Oximetry 95 95 Oxygen Delivery Nasal Cannula Oxygen Flow Rate 2 Fraction of Inspired Oxygen 08/19/25 13:00 08/19/25 13:08 08/19/25 13:24 Temperature Pulse Rate 87 85 Respiratory Rate 20 20 Blood Pressure Pulse Oximetry Oxygen Delivery High Flow Therapy with Na Oxygen Flow Rate 2 Fraction of Inspired Oxygen 08/19/25 14:00 08/19/25 15:49 08/19/25 16:00 Temperature 97.5 F L Pulse Rate 94 72 87 Respiratory Rate 17 Blood Pressure 130/57 L Pulse Oximetry 100 Oxygen Delivery Oxygen Flow Rate Fraction of Inspired Oxygen 08/19/25 16:00 08/19/25 16:10 08/19/25 16:20 Temperature Pulse Rate 84 85 Respiratory Rate 20 20 Blood Pressure Pulse Oximetry 100 Oxygen Delivery High Flow Therapy with Na Oxygen Flow Rate 2 Fraction of Inspired Oxygen 08/19/25 18:00 08/19/25 20:00 08/19/25 20:00 Temperature 97.6 F Pulse Rate 90 89 Respiratory Rate 20 Blood Pressure 116/51 L Pulse Oximetry 95 91 Oxygen Delivery Nasal Cannula Oxygen Flow Rate 2 Fraction of Inspired Oxygen 08/19/25 20:00 08/19/25 20:37 08/19/25 22:00 Temperature Pulse Rate 89 78 78 Respiratory Rate 20 Blood Pressure Pulse Oximetry Oxygen Delivery Oxygen Flow Rate Fraction of Inspired Oxygen 08/19/25 23:44 08/19/25 23:45 08/20/25 00:00 Temperature 97.5 F L Pulse Rate 73 81 Respiratory Rate 22 H Blood Pressure 128/65 Pulse Oximetry 95 96 90 Oxygen Delivery BiPAP High Flow Therapy with Na Oxygen Flow Rate 2 Fraction of Inspired Oxygen 08/20/25 00:00 08/20/25 02:00 08/20/25 02:22 Temperature Pulse Rate 73 62 62 Respiratory Rate Blood Pressure Pulse Oximetry 98 Oxygen Delivery Oxygen Flow Rate Fraction of Inspired Oxygen 08/20/25 04:00 08/20/25 04:00 08/20/25 04:00 Temperature 97.7 F Pulse Rate 60 61 Respiratory Rate 21 H Blood Pressure 136/67 Pulse Oximetry 98 98 Oxygen Delivery Nasal Cannula Oxygen Flow Rate 2 Fraction of Inspired Oxygen 08/20/25 06:00 08/20/25 07:48 08/20/25 07:48 Temperature Pulse Rate 60 83 83 Respiratory Rate 20 20 Blood Pressure Pulse Oximetry 94 Oxygen Delivery Nasal Cannula Oxygen Flow Rate 2 Fraction of Inspired Oxygen 28 08/20/25 08:00 08/20/25 08:00 08/20/25 08:00 Temperature 98.1 F Pulse Rate 78 85 85 Respiratory Rate 24 H 20 Blood Pressure 127/63 Pulse Oximetry 100 Oxygen Delivery Oxygen Flow Rate Fraction of Inspired Oxygen 08/20/25 08:00 Temperature Pulse Rate Respiratory Rate Blood Pressure Pulse Oximetry 100 Oxygen Delivery Nasal Cannula Oxygen Flow Rate 2 Fraction of Inspired Oxygen Intake/Output Intake/Output: Intake & Output 08/17/25 08/18/25 08/19/25 08/20/25 23:59 23:59 23:59 23:59 Intake Total 763 646 5581 280 Output Total 100 600 780 390 Balance 823 889 5948 -110 Meds/Results Medications: Active Medications Generic Name Dose Route Start Last Admin Trade Name Freq PRN Reason Stop Dose Admin Acetaminophen 650 mg 08/17/25 10:40 Acetaminophen 325 Mg Tablet PO Q4H PRN Mild Pain (1-3) or Fever Hydrocodone Bitart/Acetaminophen 1 tab 08/17/25 10:40 08/19/25 13:53 Hydrocodone/Acetaminophen (*Crx) 5-325 Mg Tablet PO 1 tab Q4H PRN Administration Moderate Pain (4-6) Al Hydrox/Mg Hydrox/Simethicone 30 ml 08/17/25 10:40 Mag Hydrox/Al Hydrox/Simeth 30 Ml Udc PO QID PRN Dyspepsia Albuterol 2 puff 08/17/25 14:38 Albuterol Sulfate (*Sp) Aerosol 1 Puff INHALATION Q6HRT PRN Shortness Of Breath Or Wheezing Albuterol/Ipratropium 3 ml 08/17/25 16:00 08/20/25 07:48 Ipratropium 0.5 Mg/Albuterol Sulfate 2.5 Mg (Base) Ampul.Neb 3 Ml INHALATION 3 ml QIDRT JESSIE Administration Alprazolam 0.5 mg 08/17/25 14:38 08/18/25 20:46 Alprazolam (*Crx) 0.5 Mg Tablet PO 0.5 mg Q8H PRN Administration Anxiety Aspirin 81 mg 08/18/25 09:00 08/20/25 09:12 Aspirin 81 Mg Enteric Tablet PO 81 mg DAILY JESSIE Administration Atorvastatin Calcium 40 mg 08/17/25 21:00 08/19/25 21:41 Atorvastatin 40 Mg Tablet PO 40 mg HS JESSIE Administration Buspirone HCl 2.5 mg 08/18/25 21:00 08/20/25 09:12 Buspirone Hcl 2.5 Mg Tablet PO 2.5 mg Q12HR JESSIE Administration Enoxaparin Sodium 40 mg 08/17/25 11:00 08/20/25 09:11 Enoxaparin 40 Mg/0.4 Ml Syringe SUB-Q 40 mg DAILY JESSIE Administration Escitalopram Oxalate 10 mg 08/18/25 09:00 08/20/25 09:12 Escitalopram Oxalate 10 Mg Tablet PO 10 mg DAILY JESSIE Administration Ferrous Sulfate 325 mg 08/17/25 17:00 08/20/25 09:12 Ferrous Sulfate 325 Mg Tablet BY MOUTH 325 mg TID JESSIE Administration Furosemide 40 mg 08/17/25 11:00 08/20/25 09:12 Furosemide Inj 40 Mg/4 Ml Vial IV PUSH 40 mg BID JESSIE Administration Gabapentin 300 mg 08/17/25 22:00 08/19/25 21:41 Gabapentin 300 Mg Capsule PO 300 mg Q8HR JESSIE Administration Guaifenesin 600 mg 08/17/25 21:00 08/20/25 09:12 Guaifenesin 12 Hr 600 Mg Tabcr PO 600 mg Q12HR JESSIE Administration Azithromycin 500 mg/ Sodium 250 mls @ 250 mls/hr 08/18/25 10:00 08/20/25 10:30 Chloride IVPB 250 mls/hr Q24H JESSIE Administration Ceftriaxone Sodium 2 gm/ 100 mls @ 200 mls/hr 08/18/25 09:00 08/20/25 09:09 Sodium Chloride IVPB 200 mls/hr Q24H JESSIE Administration Levetiracetam 250 mg 08/17/25 21:00 08/20/25 09:12 Levetiracetam 250 Mg Tablet PO 250 mg Q12H JESSIE Administration Loratadine 5 mg 08/17/25 18:00 08/19/25 17:35 Loratadine 5 Mg Tablet PO 5 mg QPM JESSIE Administration Magnesium Hydroxide 30 ml 08/17/25 10:40 Magnesium Hydroxide Susp 30 Ml Udc PO DAILY PRN Constipation Melatonin 5 mg 08/17/25 21:00 08/19/25 21:42 Melatonin 5 Mg Tablet PO 5 mg HS JESSIE Administration Methylprednisolone Sodium Succinate 40 mg 08/17/25 17:00 08/20/25 09:11 Methylprednisolone Sod Succ 40 Mg Vial IV PUSH 40 mg QID JESSIE Administration Multivitamins Therapeutic 1 tablet 08/18/25 09:00 08/20/25 09:12 Multivitamins Therapeutic Tab (*Bkc) PO 1 tablet DAILY JESSIE Administration Ondansetron HCl 4 mg 08/17/25 10:40 Ondansetron Inj 4 Mg/2 Ml Vial IV PUSH Q6H PRN Nausea And Vomiting Pantoprazole Sodium 40 mg 08/18/25 09:00 08/20/25 09:12 Pantoprazole 40 Mg Tablet PO 40 mg QAM JESSIE Administration Potassium Chloride 20 meq 08/17/25 17:00 08/20/25 09:12 Potassium Chloride 20 Meq Er Tablet PO 20 meq BID JESSIE Administration Ropinirole HCl 1 mg 08/17/25 17:00 08/20/25 09:12 Ropinirole Hcl 1 Mg Tablet PO 1 mg TID JESSIE Administration Fluticasone/Salmeterol 2 puff 08/17/25 20:00 Fluticasone/Salmeterol 230-21 Mcg Inhaler 1 Puff INHALATION On Hold: 08/17/25 17:08 Q12HRT [facility] Comment: HOLD WHILE ON DUONEB UPDRAFT. ALSO PATIENT ON SOLUEDROL Spironolactone 25 mg 08/18/25 09:00 08/20/25 09:12 Spironolactone 25 Mg Tablet PO 25 mg DAILY JESSIE Administration Radiology Results: ITS Impressions Chest X-Ray 08/17/25 07:42 IMPRESSION: 1. Suspect mild persistent right basilar airspace disease. Labs Labs: Laboratory Results - last 24 hr 08/20/25 04:10 WBC 13.1 H RBC 3.66 L Hgb 10.5 L Hct 35.0 L MCV 95.6 MCH 28.7 MCHC 30.0 L RDW 14.6 H Plt Count 249 MPV 9.8 Immature Gran % (Auto) 1.1 H Neut % (Auto) 94.0 H Lymph % (Auto) 3.3 L [place] % (Auto) 1.4 L Eos % (Auto) 0.0 Baso % (Auto) 0.2 Lymph # (Auto) 0.43 L [place] # (Auto) 0.2 Eos # (Auto) 0.0 Baso # (Auto) 0.0 Abs Immat Gran (auto) 0.15 H Absolute Neuts (auto) 12.3 H Absolute Nucleated RBC 0.000 Nucleated RBC % 0.0 Sodium 138 Potassium 4.1 Chloride 104 Carbon Dioxide 31 H Anion Gap 3 L BUN 39 H Creatinine 1.27 H Estim Creat Clear Calc 31 Estimated GFR 41 L Glucose 127 H Calcium 8.1 L Magnesium 2.4 H Total Bilirubin 0.3 AST 24 ALT 18 Alkaline Phosphatase 62 Total Protein 6.6 Albumin 3.6 Quality VTE Prophylaxis VTE prophylaxis: pharmacologic ordered
[2025-08-20] MEDS: GABAPENTIN 300 MG CAPSULE PO ×2 (13:54→21:44)
[2025-08-20] MEDS: HYDROcodone/acetaminophen (*CRX) 5-325 MG TABLET 1 TAB PO (13:56)
--- NOTE | 2025-08-20 15:32 | P.PNPL_ITS ---
Progress Note: A&P Assessment and Plan (1) Acute and chronic respiratory failure, unspecified whether with hypoxia or hypercapnia: Qualifiers: Respiratory failure complication: hypoxia and hypercapnia Qualified Code(s): J96.21 - Acute and chronic respiratory failure with hypoxia; J96.22 - Acute and chronic respiratory failure with hypercapnia Code(s): J96.20 - Acute and chronic respiratory failure, unspecified whether with hypoxia or hypercapnia Status: Acute Assessment and Plan: Acute and chronic respiratory failure, unspecified whether with hypoxia or hypercapnia Status: Acute Assessment and Plan: Worsening compared to discharge on Aug 04, anxiety contributed to panic, poor choices, not using NIV, over using O2, more falls with lower leg injuries treated at ER and Dr Donahue's office. She may be at end stage, however O2 requirement is low. She has low exerzize toelrance due to stroke, right hemiplegia. Does not appear to have a new pneumonia. Some of this is destabilized cardiac function, EF 40%, has diastolic an systolic dysfunction, and the large ventral hernia is not helping. 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 (2) Chronic respiratory failure with hypoxia, on home oxygen therapy: Code(s): J96.11 - Chronic respiratory failure with hypoxia; Z99.81 - Dependence on supplemental oxygen Status: Acute Assessment and Plan: On O2 at home for a while, she cannot recall how long; at last admission, she was discharged with instructions to use O2 nasal cannula 1 L at test and with exertion, At rest with 1 L = saturation 92%. Exercise nasal cannula 1 L saturation 91%. Patient is nonambulatory and did exercises with the feet. Patient requires 1 L oxygen at rest and with activity. She increased this and is using 2.5 L all the time, finding sat lower in the 70s when she goes to the bathroom. Isabela told me that today going to the bathroom, her saturation was 97% on 2 L. This is not a coherent way to use O2. Patient adjusts O2, does not have a plan for goals of O2 use. _ (3) Shortness of breath: Code(s): R06.02 - Shortness of breath Status: Acute Assessment and Plan: Much more short of breath, deteriorating, and with each admission, she may have a step gomez decrease in baseline functioning. (4) COPD exacerbation: Code(s): J44.1 - Chronic obstructive pulmonary disease with (acute) exacerbation Status: Acute Assessment and Plan: Long standing advanced COPD, FEV1 much less than a liter in 2017, on Advair 230/21 and umeclidinium / Incruse 62.5 once a day; Isabela told me that her insur liana is switching her to Spiriva on Sep 14, so she won't be able to take Incruse any longer. She has end stage COPD, and with increased eosinophils, she may benefit from Dupixent as add-on therapy. This is not for acute decompensations, only maintenance. This is not available in the hosital setting as it is for maintanence, not exacerbations. Plan plan: 1. Increase buspirone to 5 mg from 2.5 mg b.i.d. to decrease anxiety and dyspnea. She is taking alprazolam 5 mg HS to help get to sleep, and take the edge off her anxiety fidelina with using PAP. This medication is not likely to lower seizure threshold. Try to fin a better mask, ffm is not ocmfortable, She is ok wit hteh pressure on NIV. 2. Continue flutter valve; she has her Cornet at home, says that she uses it 8 exhalations twice a day, no increase in sputum expectoration, although today, chest sound as if she has loose secretions, wet with loud rhonchi. continue antibiotics for presumed pneumonia; she had infiltrates in same locations on CR last admission. These could be residual; CXR can lag behind patient recovery. 3. She has been on NIV for a while, this is not new, although she is having more problems using it now with a second admission 13 days after discharge brought on by not using AVAPS at home, using too much O2, getting less coordinated using her wheelchair, banging her legs, falling out landing on her knees. re-start AVAPS settings; AVAPS AE rate of 14, tidal volume 500, EPAP minimum 5, EPAP maximum 15, pressure support minimum 10, pressure support maximum 25 with 3 L bleed in using an over the mouth under the nose mask. 4. She is not going to be able to use [facility] trade name for umeclidinium after Sep 14, due to insurance rules. I wonder if she could use Breztri 2 puffs bid instead of Advair 230/21 ONE puff b.i.d.& Spiriva TWO Puffs Q day. Few inhalers = more compliance. Compliance is really important for her. 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 This is out patient, not in-patient. 5. O2; she is making her own rules for oxygen use; she is using more when she feels short of breath. This can be a problem with hypercapnia. She does not know what her goals are supposed to be for O2 use, does not appreciate that oxygen is a drug, and using it correctly can improve one's condition. Use what is needed, not more. Will follow closely; d/w [employer] today. Complex patient. Subjective Date/time seen: 08/20/25 15:32 Objective Data Vital Signs Vital Signs: Vital Signs - 24 hr 08/19/25 15:49 08/19/25 16:00 08/19/25 16:00 Temperature 36.4 C L Pulse Rate 72 87 Respiratory Rate 17 Blood Pressure 130/57 L Pulse Oximetry 100 100 Oxygen Delivery High Flow Therapy with Na Oxygen Flow Rate 2 Fraction of Inspired Oxygen 08/19/25 16:10 08/19/25 16:20 08/19/25 18:00 Temperature Pulse Rate 84 85 90 Respiratory Rate 20 20 Blood Pressure Pulse Oximetry Oxygen Delivery Oxygen Flow Rate Fraction of Inspired Oxygen 08/19/25 20:00 08/19/25 20:00 08/19/25 20:00 Temperature 36.4 C Pulse Rate 89 89 Respiratory Rate 20 Blood Pressure 116/51 L Pulse Oximetry 95 91 Oxygen Delivery Nasal Cannula Oxygen Flow Rate 2 Fraction of Inspired Oxygen 08/19/25 20:37 08/19/25 22:00 08/19/25 23:44 Temperature Pulse Rate 78 78 73 Respiratory Rate 20 Blood Pressure Pulse Oximetry 95 Oxygen Delivery BiPAP Oxygen Flow Rate Fraction of Inspired Oxygen 08/19/25 23:45 08/20/25 00:00 08/20/25 00:00 Temperature 36.4 C L Pulse Rate 81 73 Respiratory Rate 22 H Blood Pressure 128/65 Pulse Oximetry 96 90 Oxygen Delivery High Flow Therapy with Na Oxygen Flow Rate 2 Fraction of Inspired Oxygen 08/20/25 02:00 08/20/25 02:22 08/20/25 04:00 Temperature 36.5 C Pulse Rate 62 62 60 Respiratory Rate 21 H Blood Pressure 136/67 Pulse Oximetry 98 98 Oxygen Delivery Oxygen Flow Rate Fraction of Inspired Oxygen 08/20/25 04:00 08/20/25 04:00 08/20/25 06:00 Temperature Pulse Rate 61 60 Respiratory Rate Blood Pressure Pulse Oximetry 98 Oxygen Delivery Nasal Cannula Oxygen Flow Rate 2 Fraction of Inspired Oxygen 08/20/25 07:48 08/20/25 07:48 08/20/25 08:00 Temperature 36.7 C Pulse Rate 83 83 78 Respiratory Rate 20 20 24 H Blood Pressure 127/63 Pulse Oximetry 94 100 Oxygen Delivery Nasal Cannula Oxygen Flow Rate 2 Fraction of Inspired Oxygen 28 08/20/25 08:00 08/20/25 08:00 08/20/25 08:00 Temperature Pulse Rate 85 85 Respiratory Rate 20 Blood Pressure Pulse Oximetry 100 Oxygen Delivery Nasal Cannula Oxygen Flow Rate 2 Fraction of Inspired Oxygen 08/20/25 10:00 08/20/25 11:20 08/20/25 12:00 Temperature 36.9 C Pulse Rate 74 85 Respiratory Rate 20 Blood Pressure 121/58 L Pulse Oximetry 100 Oxygen Delivery Nasal Cannula Oxygen Flow Rate 2 Fraction of Inspired Oxygen 08/20/25 12:00 08/20/25 12:00 08/20/25 14:00 Temperature Pulse Rate 89 87 Respiratory Rate Blood Pressure Pulse Oximetry 100 Oxygen Delivery Nasal Cannula Oxygen Flow Rate 2 Fraction of Inspired Oxygen 08/20/25 15:00 08/20/25 15:07 Temperature Pulse Rate 73 75 Respiratory Rate 20 20 Blood Pressure Pulse Oximetry Oxygen Delivery Oxygen Flow Rate Fraction of Inspired Oxygen Intake/Output Intake/Output: Intake & Output 08/17/25 08/18/25 08/19/25 08/20/25 23:59 23:59 23:59 23:59 Intake Total 442 026 5362 520 Output Total 100 600 780 390 Balance 365 037 6539 130 Meds/Results Medications: Active Medications Generic Name Dose Route Start Last Admin Trade Name Freq PRN Reason Stop Dose Admin Acetaminophen 650 mg 08/17/25 10:40 Acetaminophen 325 Mg Tablet PO Q4H PRN Mild Pain (1-3) or Fever Hydrocodone Bitart/Acetaminophen 1 tab 08/17/25 10:40 08/20/25 13:56 Hydrocodone/Acetaminophen (*Crx) 5-325 Mg Tablet PO 1 tab Q4H PRN Administration Moderate Pain (4-6) Al Hydrox/Mg Hydrox/Simethicone 30 ml 08/17/25 10:40 Mag Hydrox/Al Hydrox/Simeth 30 Ml Udc PO QID PRN Dyspepsia Albuterol 2 puff 08/17/25 14:38 Albuterol Sulfate (*Sp) Aerosol 1 Puff INHALATION Q6HRT PRN Shortness Of Breath Or Wheezing Albuterol/Ipratropium 3 ml 08/17/25 16:00 08/20/25 15:06 Ipratropium 0.5 Mg/Albuterol Sulfate 2.5 Mg (Base) Ampul.Neb 3 Ml INHALATION 3 ml QIDRT JESSIE Administration Alprazolam 0.5 mg 08/17/25 14:38 08/18/25 20:46 Alprazolam (*Crx) 0.5 Mg Tablet PO 0.5 mg Q8H PRN Administration Anxiety Aspirin 81 mg 08/18/25 09:00 08/20/25 09:12 Aspirin 81 Mg Enteric Tablet PO 81 mg DAILY JESSIE Administration Atorvastatin Calcium 40 mg 08/17/25 21:00 08/19/25 21:41 Atorvastatin 40 Mg Tablet PO 40 mg HS JESSIE Administration Buspirone HCl 2.5 mg 08/18/25 21:00 08/20/25 09:12 Buspirone Hcl 2.5 Mg Tablet PO 2.5 mg Q12HR JESSIE Administration Docusate Sodium 100 mg 08/20/25 11:23 Docusate Sodium 100 Mg Capsule PO Q12H PRN Constipation Enoxaparin Sodium 40 mg 08/17/25 11:00 08/20/25 09:11 Enoxaparin 40 Mg/0.4 Ml Syringe SUB-Q 40 mg DAILY JESSIE Administration Escitalopram Oxalate 10 mg 08/18/25 09:00 08/20/25 09:12 Escitalopram Oxalate 10 Mg Tablet PO 10 mg DAILY JESSIE Administration Ferrous Sulfate 325 mg 08/17/25 17:00 08/20/25 13:54 Ferrous Sulfate 325 Mg Tablet BY MOUTH 325 mg TID JESSIE Administration Furosemide 40 mg 08/17/25 11:00 08/20/25 09:12 Furosemide Inj 40 Mg/4 Ml Vial IV PUSH 40 mg BID JESSIE Administration Gabapentin 300 mg 08/17/25 22:00 08/20/25 13:54 Gabapentin 300 Mg Capsule PO 300 mg Q8HR JESSIE Administration Guaifenesin 600 mg 08/17/25 21:00 08/20/25 09:12 Guaifenesin 12 Hr 600 Mg Tabcr PO 600 mg Q12HR JESSIE Administration Azithromycin 500 mg/ Sodium 250 mls @ 250 mls/hr 08/18/25 10:00 08/20/25 10:30 Chloride IVPB 250 mls/hr Q24H JESSIE Administration Ceftriaxone Sodium 2 gm/ 100 mls @ 200 mls/hr 08/18/25 09:00 08/20/25 09:09 Sodium Chloride IVPB 200 mls/hr Q24H JESSIE Administration Levetiracetam 250 mg 08/17/25 21:00 08/20/25 09:12 Levetiracetam 250 Mg Tablet PO 250 mg Q12H JESSIE Administration Loratadine 5 mg 08/17/25 18:00 08/19/25 17:35 Loratadine 5 Mg Tablet PO 5 mg QPM JESSIE Administration Magnesium Hydroxide 30 ml 08/17/25 10:40 Magnesium Hydroxide Susp 30 Ml Udc PO DAILY PRN Constipation Melatonin 5 mg 08/17/25 21:00 08/19/25 21:42 Melatonin 5 Mg Tablet PO 5 mg HS JESSIE Administration Methylprednisolone Sodium Succinate 40 mg 08/17/25 17:00 08/20/25 13:55 Methylprednisolone Sod Succ 40 Mg Vial IV PUSH 40 mg QID JESSIE Administration Multivitamins Therapeutic 1 tablet 08/18/25 09:00 08/20/25 09:12 Multivitamins Therapeutic Tab (*Bkc) PO 1 tablet DAILY JESSIE Administration Ondansetron HCl 4 mg 08/17/25 10:40 Ondansetron Inj 4 Mg/2 Ml Vial IV PUSH Q6H PRN Nausea And Vomiting Pantoprazole Sodium 40 mg 08/18/25 09:00 08/20/25 09:12 Pantoprazole 40 Mg Tablet PO 40 mg QAM JESSIE Administration Potassium Chloride 20 meq 08/17/25 17:00 08/20/25 09:12 Potassium Chloride 20 Meq Er Tablet PO 20 meq BID JESSIE Administration Ropinirole HCl 1 mg 08/17/25 17:00 08/20/25 13:54 Ropinirole Hcl 1 Mg Tablet PO 1 mg TID JESSIE Administration Fluticasone/Salmeterol 2 puff 08/17/25 20:00 Fluticasone/Salmeterol 230-21 Mcg Inhaler 1 Puff INHALATION On Hold: 08/17/25 17:08 Q12HRT JESSIE Comment: HOLD WHILE ON DUONEB UPDRAFT. ALSO PATIENT ON SOLUEDROL Spironolactone 25 mg 08/18/25 09:00 08/20/25 09:12 Spironolactone 25 Mg Tablet PO 25 mg DAILY JESSIE Administration Radiology Results: ITS Impressions Chest X-Ray 08/17/25 07:42 IMPRESSION: 1. Suspect mild persistent right basilar airspace disease. Labs Labs: Laboratory Results - last 24 hr 08/20/25 04:10 WBC 13.1 H RBC 3.66 L Hgb 10.5 L Hct 35.0 L MCV 95.6 MCH 28.7 MCHC 30.0 L RDW 14.6 H Plt Count 249 MPV 9.8 Immature Gran % (Auto) 1.1 H Neut % (Auto) 94.0 H Lymph % (Auto) 3.3 L [place] % (Auto) 1.4 L Eos % (Auto) 0.0 Baso % (Auto) 0.2 Lymph # (Auto) 0.43 L [place] # (Auto) 0.2 Eos # (Auto) 0.0 Baso # (Auto) 0.0 Abs Immat Gran (auto) 0.15 H Absolute Neuts (auto) 12.3 H Absolute Nucleated RBC 0.000 Nucleated RBC % 0.0 Sodium 138 Potassium 4.1 Chloride 104 Carbon Dioxide 31 H Anion Gap 3 L BUN 39 H Creatinine 1.27 H Estim Creat Clear Calc 31 Estimated GFR 41 L Glucose 127 H Calcium 8.1 L Magnesium 2.4 H Total Bilirubin 0.3 AST 24 ALT 18 Alkaline Phosphatase 62 Total Protein 6.6 Albumin 3.6
[2025-08-20] MEDS: LORATADINE 5 MG TABLET PO (16:44)
[2025-08-20] MEDS: ATORVASTATIN 40 MG TABLET PO (21:45)
[2025-08-20] MEDS: MELATONIN 5 MG TABLET PO (21:45)
[2025-08-21] VITALS (21 sets, daily range): BP systolic 130–141; BP diastolic 61–68; PULSE 60–183; RESP 15–24; TEMP 36.4–36.8; O2SAT 90–100
[2025-08-21 04:39] LABS: Hematocrit 39.3 % (37.0-47.0); Hemoglobin 11.8 g/dL (12.0-15.0); Immature Granulocyte Percent A 2.4 % (0-0.5); Lymphocytes Absolute Auto 0.41 K/mm3 (0.9-3.2); Mean Corpuscular HGB Conc 30.0 g/dl (32-36); Mean Corpuscular Hemoglobin 28.6 pg (26-34); Mean Corpuscular Volume 95.4 fl (80-100); Nucleated Red Blood Cells Absolute Auto 0.020 K/mm3 (0.0-0.012); Nucleated Red Blood Cells Perc 0.2 % (0.0-0.2); Platelet Count Result 283 k/mm3 (150-375); Red Blood Count 4.12 M/mm3 (4.2-5.4); White Blood Count 9.7 K/mm3 (4.5-10.0)
[2025-08-21 05:31] LABS: Anisocytosis 1+
[2025-08-21 05:32] LABS: Ovalocytes 1+; Schistocytes None Seen
[2025-08-21 07:28] LABS: Alanine Aminotransferase 22 U/L (6-35); Albumin Level 4.0 g/dL (3.5-5.1); Alkaline Phosphatase 72 U/L (38-126); Anion Gap 4 mmol/L (4-12); Aspartate Amino Transferase 25 U/L (14-36); Bilirubin,Total 0.4 mg/dL (0.2-1.3); Blood Urea Nitrogen 39 mg/dL (7-17); Calcium 8.5 mg/dL (8.4-10.2); Carbon Dioxide 31 mmol/L (22-30); Chloride 106 mmol/L (98-107); Estimated CRCL calculation 31 ml/min; Estimated Glomerular Filt Rate 41; Glucose 114 mg/dL (65-110); Magnesium 2.5 mg/dL (1.6-2.3); Potassium 4.4 mmol/L (3.4-5.0); Sodium 141 mmol/L (137-145); Total Protein 7.1 g/dL (6.3-8.2)
[2025-08-21] MEDS: IPRATROPIUM 0.5 MG/ALBUTEROL SULFATE 2.5 MG (BASE) AMPUL.NEB 3 ML INHALATION ×3 (08:15→20:49)
[2025-08-21] MEDS: cefTRIAXone 2 GM in SODIUM CHLORIDE 0.9% IV 100 ML 200 ML IVPB (09:28)
[2025-08-21] MEDS: ENOXAPARIN 40 MG/0.4 ML SYRINGE SUB-Q (09:28)
[2025-08-21] MEDS: POTASSIUM CHLORIDE 20 MEQ ER TABLET PO ×2 (09:29→18:16)
[2025-08-21] MEDS: ESCITALOPRAM OXALATE 10 MG TABLET PO (09:30)
[2025-08-21] MEDS: PANTOPRAZOLE 40 MG TABLET PO (09:30)
[2025-08-21] MEDS: MULTIVITAMINS THERAPEUTIC TAB (*BKC) 1 TABLET PO (09:30)
[2025-08-21] MEDS: SPIRONOLACTONE 25 MG TABLET PO (09:31)
[2025-08-21] MEDS: guaiFENesin 12 HR 600 MG TABCR PO (09:31)
[2025-08-21] MEDS: FERROUS SULFATE 325 MG TABLET BY MOUTH ×3 (09:31→18:17)
[2025-08-21] MEDS: ASPIRIN 81 MG ENTERIC TABLET PO (09:31)
[2025-08-21] MEDS: ALPRAZolam (*CRX) 0.5 MG TABLET PO ×2 (09:31→13:08)
[2025-08-21] MEDS: busPIRone HCL 2.5 MG TABLET PO (09:32)
[2025-08-21] MEDS: FUROSEMIDE INJ 40 MG/4 ML VIAL IV PUSH ×2 (09:32→18:17)
[2025-08-21 12:11] LABS: NT Pro B Type Natriuretic Pept 1810 pg/mL (19.9-100)
--- NOTE | 2025-08-21 12:42 | P.PNPL_ITS ---
Progress Note: A&P Assessment and Plan (1) COPD exacerbation: Code(s): J44.1 - Chronic obstructive pulmonary disease with (acute) exacerbation Status: Acute Assessment and Plan: GOLD grade 4 group E COPD Patient with tobacco use (35 PY, quit 2003), Alpha 1 anti trypsin genotype MM. PFTs 11/28/2022 with FEV1 0.59 L, 26%, no bronchodilator response, airtrapping, decreased DLCO when corrected for alveolar volume, severe apical panlobular emphysema on CT scan of the neck from 03/04/2019 and chest on 08/13/2022, hypoxic respiratory failure on 2 L NC rest and activity since 2020, hypercarbic respiratory failure with ABG on 2 L was 7.42/56/47 and started on noninvasive ventilation with 4 L bleed in on 12/2022. Unable to tolerate noninvasive ventilation due to mask discomfort despite multiple mask trials. Wheelchair bound after she had a stroke in 2013 with dyspnea on exertion with wheelchair transfers and pivots Echocardiogram from 06/06/2022 with LVEF 55-60, grade 1 diastolic dysfunction, Normal right ventricular size and function. Normal right atrial size. No tricuspid regurg to measure RVSP. Inpatient COPD exacerbation and pneumonia 09/15/2022. 09/15/2022 white blood cell count 18.8, eosinophils 1.3%=244/uL. 08/22/2022 white blood cell count 10.5, eosinophils 3.1% equals 326/uL. Last inpatient hospitalization 06/29/2023 (rhinoviral infection). 08/04/2025: Home O2 assessment: Rest room air saturation 88%. Rest nasal cannula 1 L saturation 92%. Exercise nasal cannula 1 L saturation 91%. Patient is nonambulatory and did exercises with the feet. Patient requires 1 L oxygen at rest and with activity. 08/20/25: Long standing advanced COPD, FEV1 much less than a liter in 2018, on Advair 230/21 and umeclidinium / Incruse 62.5 once a day; Isabela told me that her insurance is switching her to Spiriva on Sep 14, so she won't be able to take Incruse any longer. She has end stage COPD, and with increased eosinophils, she may benefit from Dupixent as add-on therapy. This is not for acute decompensations, only maintenance. This is not available in the [facility] setting as it is for maintanence, not exacerbations. 08/21/2025: Overall patient has shortness of breath at rest, shortness of breath with any activity, she has cough and the phlegm gets stuck in her throat. When I enter the room she was on 2.5 L with saturation 99%. I decreased her 1 L nasal cannula her saturations were 92%. She is afebrile. White blood cell count 9.7, creatinine 1.27, BNP has increased from 1200 on 08/19/2020 5-1810 today. Patient still has difficulty tolerating the noninvasive ventilation and has panic attacks. Plan: patient continues to deteriorate and never recovered from her previous hospital discharge on 08/04/2025. I will treat for reversible causes for short ness of breath at rest. I have treating for COPD exacerbation, pneumonia and fluid overload. I will decrease her Solu-Medrol to 20 mg q.6 hours, I will continue DuoNebs q.i.d.. I will discontinue Advair while she is on systemic steroids and DuoNebs q.i.d. I will increase her guaifenesin to 1200 mg p.o. q.i.d.. Continue ceftriaxone and azithromycin, both day 5. Continue Lasix 40 IV b.i.d.. patient with multiple exacerbations and I will add Daliresp 250 q.day. Patient has end-stage COPD now with 2 admissions in the last 4 weeks. She never recovered and has continued deterioration. I have told the patient and her caregiver that custodial facility may help her and that she may wish to consider gather information from a hospice team. (2) Acute and chronic respiratory failure, unspecified whether with hypoxia or hypercapnia: Qualifiers: Respiratory failure complication: hypoxia and hypercapnia Qualified Code(s): J96.21 - Acute and chronic respiratory failure with hypoxia; J96.22 - Acute and chronic respiratory failure with hypercapnia Code(s): J96.20 - Acute and chronic respiratory failure, unspecified whether with hypoxia or hypercapnia Status: Acute Assessment and Plan: Acute and chronic respiratory failure, unspecified whether with hypoxia or hypercapnia Status: Acute Assessment and Plan: Worsening compared to discharge on Aug 04, anxiety contributed to panic, poor choices, not using NIV, over using O2, more falls with lower leg injuries treated at ER and Dr Donahue's office. She may be at end stage, however O2 requirement is low. She has low exerzize toelrance due to stroke, right hemiplegia. Does not appear to have a new pneumonia. Some of this is destabilized cardiac function, EF 40%, has diastolic an systolic dysfunction, and the large ventral hernia is not helping. 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 08/04/2025: Home O2 assessment: Rest room air saturation 88%. Rest nasal cannula 1 L saturation 92%. Exercise nasal cannula 1 L saturation 91%. Patient is nonambulatory and did exercises with the feet. Patient requires 1 L oxygen at rest and with activity. 08/21/25: patient tolerates noninvasive ventilation poorly. Last admission she did tolerate her home noninvasive ventilator through via med with AVAPS AE settings rate of 14, tidal volume 500, EPAP minimum 5, EPAP maximum 15, pressure support minimum 10, pressure support maximum 25 with 2 L bleed in. last admission on 08/04/25: Patient was using and over the mouth under the nose mask And said that she slept for 3 hours and feels like this was greatly improved. Patient had an overnight oximetry on these settings with recording duration of 4 hours and 18 minutes, average saturation 93%, low saturation 82%, time with saturation less than or equal to 88% was 31 minutes. Oxygen desaturation index 8.9. Patient had ABG prior to removal with a pH of 7.40/50/59. Current AVAPS AE settings with under the nose over the mouth mask provide adequate ventilation. Overnight oximetry on 32% FiO2 on 08/01 provided adequate oxygenation and I will discharge her on 3 L bleed in at night. plan: Patient is brought in her home noninvasive ventilator with the over the mouth under the nose mask and will place her on these settings with 3 L bleed in tonight to see if she can tolerate this. Patient has significant anxiety and I will increase her BuSpar to 10 mg p.o. b.i.d.. Subjective Date/time seen: 08/21/25 12:42 Interval history: Patient was seen August 18, 2025, at 18:55, room 231 Her friend gabrielle ANTON for [facility], Isabela, is at the bedside, assists with the history. NEW: Teresa Levi is a 75-year-old woman with COPD [id number] in our clinic, sees Dr Nava, was admitted Jul 30 to , went home, did not use BiPAP at [facility]. She was admitted with increased shortness of breath, worsening balance in her wheelchair running into things causes gashes on her lower legs with trips to the ER. She banged up her left knee, left lateral leg, last admission she was on AVAPS, and although she was not wearing it, AVAPS would be a better option for her because of the indication, chronic hypercapneic respiraotry failure. She does not have obesity hypoventilation. She is using a hybrid mask at home, under the nose which is more comfortable comared to over the nose fidelina with her claustrophobia. recurrent hypercapnic respiratory failure, acute exacerbation of COPD, bilateral infiltrates consistent with pneumonia, dCHF, diuretics adjusted, and CKD, HTN, gout, lung cancer 10 yeas ago. She was here less than a month ago. She does not use BiPAP at home due to claustrophobia, takes alprazolam 0.5 mg HS to assist with sleep onset, also makes trying PAP easier, She uses O2 at home. At discharge, she was on be on O2 at 1 L, increase with exertion. She was not using her PAP machine at [facility], was sleeping in a recliner, turned O2 up when she felt short of breath. She has been falling frequently with injuries to lower legs, and has a large injury to the LUE after a tourniquet placed while in an ambulance. She had one of the gashes in her lower leg sewn together by Dr Donahue. She is on 2 L, sat is 93%.Admitted Dec , wbc 7.1 k with mild increase in eosinophils. She has had high eosinophils on at least 3 occasions, now 400 this admission. She was admitted July 30 through the , last month for an acute exacerbation of COPD, acute hypercapnic hypoxemic respiratory failure and right middle lobe pneumonia.She went home, did not use her NIV, slept in recliner, turne O2 higher than needed, was falling out of wheelchair and running into things, gashing her little legs. 08/21/2025: Overall patient has shortness of breath at rest, shortness of breath with any activity, she has cough and the phlegm gets stuck in her throat. When I enter the room she was on 2.5 L with saturation 99%. I decreased her 1 L nasal cannula her saturations were 92%. She is afebrile. White blood cell count 9.7, creatinine 1.27, BNP has increased from 1200 on 08/19/2020 5-1810 today. Patient still has difficulty tolerating the noninvasive ventilation and has panic attacks. DATA * Date 08/01:48 am discharged :59 :06 a.m. pH 7.41 7.40 7.39 7.37 pCO2 60 50 63 67 pO2 83 58.5 79 66.8 HCO3 37.8 30.5 38 38 sat 96% 90% 95% 92% CarboxyHgb FiO2 40% 28% 32% 30% O2 delivery BiPAP IPAP 25 16 EPAP 8 7 cm 8 * 08/17/25, CXR : Cardiomediastinal silhouette normal size and configuration. Mild right basilar airspace disease persists. No acute bony abnormality. Osteopenia. IMPRESSION: Suspect mild persistent right basilar airspace disease. {THIS IS WHERE SHE HAD INFILTRATES in [place]} * 08/17/2025 white blood cell count 8.3 k with 4.5% eosinophils, - absolute eosinophil count 400 which is increased. Also had elevated eosinophils on June 29, 2023, 740 eosinophils, June 21, 2023 with 500 eosinophils. 07/31/25: Echo Summary 1. Technically suboptimal study due to poor sonographic images. 2. Definity contrast administered improved wall motion interpretation. 3. Left ventricular chamber dimension is moderately enlarged. 4. Left ventricular systolic function is moderately globally reduced, estimated at 40-45. 5. The left ventricular diastolic function is grade I diastolic dysfunction. 6. No pulmonary hypertension, estimated pulmonary arterial systolic pressure is 19 mmHg. Right Ventricle Right ventricular chamber dimension is normal. Right ventricular systolic function is normal. Left Atria Left atrial chamber dimension is normal. Right Atria Right atrial chamber dimension is normal. 07/31/25: EXAMINATION:CT diagnostic chest wo con INDICATION: Pneumonia COPD COMPARISON: None. FINDINGS: Patchy consolidative changes are developing in the medial segment of the right middle lobe. Mild scattered fibrotic and atelectatic appearing changes throughout the lower lobes bilaterally. Moderately severe centrilobular emphy sematous changes especially in the upper lobes. No new nodules or masses seen. Heart and great vessels stable in size with no cardiomegaly or large pericardial effusion/bulky lymphadenopathy. Coronary artery calcification and/or stenting. 50% compression deformity of T6 similar to the previous exam. IMPRESSION: Small area of consolidation in the medial segment of the right middle lobe consistent with early pneumonia. Finding should be followed radiographically until clear. 01/29/25 - Overnight oximetry on noninvasive ventilator with 4 L bleed in. Recording duration 7 hours and 53 minutes. Basal saturation 97.5. Low saturation 94%. High saturation 99%. Time with saturation less than or equal to 88% was 0 minutes. Oxygen desaturation 0. 4 L provides adequate oxygenation. 11/06/23 - CXR - The lungs are clear, without evidence of focal consolidation or pleural effusion. Suspected COPD. Cardiomediastinal silhouette is within normal limits. Bones and soft tissues are unremarkable. 07/03/2023: Home O2 assessment: Rest room air saturations 83%. Rest nasal cannula 2 L saturation 87%. Rest nasal cannula 3 L saturation 88%. Rest nasal cannula 4 L saturation 91%. Exercise nasal cannula 4 L, saturations 88%. Exercise nasal cannula 5 L saturation 90%. Patient requires 4 L at rest and 5 with activity. 07/02/24: Patient wore her home noninvasive ventilator in the hospital, with an AVAPS-AE mode with a rate of 12, tidal volume 400, EPAP minimum 5, maximum EPAP 10, minimal pressure support 10, maximal pressure support 15, rise time of 3 with 4 L bleed in and did well.? Patient had an overnight oximetry with recordin g time of 7 hours and 31 minutes, average saturation 92%.? Low saturation 88%.? Time with saturation less than or equal to 88% was 1 minute, oxygen desaturation index 0.4.? Patient had a blood gas prior to removal of this machine with pH of 7.44/48/70.? These settings provide adequate oxygenation and ventilation.? 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 06/30/2023: EXAMINATION: CTA chest PE protocol ?INDICATION: Hypoxia. ?COMPARISON: Chest CT 08/12/2022 ?FINDINGS: There is severe emphysema. There is mild atelectasis bilaterally, worst in the lower lobes. No pleural effusion. The heart size is normal. There are coronary artery calcifications. No pericardial effusion. There is no pulmonary embolus. There is a gallstone in the gallbladder which is normal in size. There is a ventral hernia containing colon. There is kyphosis and moderate spondylosis of thoracic spine. There is a chronic burst fracture of T6. There is a chronic compression fracture of L1. ?IMPRESSION: ?1. No pulmonary embolus. ?2. Severe emphysema. ?11/28/2022 PFTs ??The test was performed and results interpreted in accordance with the 2019 and 2005 ATS/ERS Task Force guidelines respectively using the Global Lung Function Initiative-2012 reference equations. Patient demonstrated good effort and cooperation. Reproducibility criteria were met. The quality of the pre bronchodilator spirometry maneuver was Grade A and post bronchodilator spirometry maneuver was Grade A. ??Findings: ??Spirometry: ? There is decreased maximal expiratory airflow at all lung volumes with concave expiratory flow tracing.? The contour the inspiratory flow tracing is normal.? pre bronchodilator FVC is 1.39 L, 48% predicted.? The pre bronchodilator FEV1 is 0.59 L, 26% predicted.? The pre bronchodilator FEV1:? FVC ratio is 42%.? The post bronchodilator FVC is 1.50 L,? representing an 8% increase.? The post bronchodilator FEV1 is 0.63 L, representing a 6% increase.? The post bronchodilator FEV1:? FVC ratio is 42%.? ??Plethysmography:? The total lung capacity is 4.40 L, 85% predicted.? The functional residual capacity is 3.27 L, 110% predicted.? The residual volume is 3.01 L, 133% predicted.? ??Diffusing capacity:? The diffusing capacity unadjusted for hemoglobin and carboxyhemoglobin is 5.2, 25% predicted.? The diffusing capacity adjusted for alveolar volume is 2.58, 61% predicted. ??When compared to PFTs from [facility] on 06/20/2019 the post bronchodilator FVC has decreased from 2.10 L to 1.50 L.? The post bronchodilator FEV1 has decreased from 0.80 L to 0.63 L.? The total lung capacity is unchanged from 4.88 L to 4.40 L.? The functional residual capacity is unchanged from 3.71 L to 3.27 L.? The residual volume is unchanged from 3.24 L to 3.01 L.? The diffusing capacity unadjusted from hemoglobin and carboxyhemoglobin is unchanged from 5.6 to 5.2.? The diffusing capacity adjusted for alveolar volume is unchanged from 2.39 to 2.58. ??Impression:?There is a very severe obstructive abnormality without significant improvement after inhaling a single dose of albuterol.?The increase in residual volume is consistent with?air trapping?from an obstructive abnormality.? The diffusing capacity unadjusted for hemoglobin and carboxyhemoglobin is severely decreased and?remains mildly decreased when adjusted for alveolar volume. ??When compared to previous PFTs there has been a?greater than anticipated time dependent decrease in the FVC and FEV1?with no significant change in the total lung capacity, functional residual capacity, residual volume or DLCO. ?11/28/2022? ABG on 2 L nasal cannula pulse delivery: ? PH 7.42 / 56/47. ? Saturations were 83%.? Checked manually saturations were 84%. ?11/28/2022 ? Home O2 assessment:? Rest room air saturation 84%.? Rest nasal cannula 1 L saturation 86%, rest nasal cannula 2 L saturation 92%.? Exercise 2 L nasal cannula saturation 90%. ? These measurements were made with continuous flow nasal cannula.? I spoke with the building maintenance technician and they attempted to place the patient on 4 L pulse delivery nasal cannula and her saturations remained less than 88%.??The patient requires 2 L oxygen at rest and with exercise at continuous flow. ??? Collectively these results demonstrate progression of the patient's very severe obstructive abnormality consistent with GOLD grade 4 COPD? with chronic hypercarbic respiratory failure from her COPD and hypoxemic respiratory failure from her COPD. ? Patient has chronic hypercarbic respiratory failure from her COPD and would benefit from noninvasive ventilation. ? She would benefit from noninvasive ventilation to prevent further deterioration and subsequent hospitalizations. ? Previously the patient had been on BiPAP on 05/05/2022 and she said that she could not tolerate these pressures and she had claustrophobia.?? I talked to the patient about this and she is also had a stroke with decreased mobility of her right upper extremity and is unsure if she will be able to? initiate her machine and mask at home although she is willing to try. ??? I will initiate home noninvasive ventilation with an AVAPS-AE mode? with a set rate of auto, tidal volume 500, minimal inspiratory pressure 5, maximal expiratory pressure 15, minimal inspiratory pressure 6, maximal inspiratory pressure 25,? rise time 1.0 sec, and 2 L bleed in. These settings can be adjusted for patient comfort on initial set up. ??? The pulmonary function test coordinator [facility] and the outpatient clinic will coordinate our efforts with the PFT lab. ?? 08/12/2022 EXAMINATION: CT diagnostic chest wo con ???INDICATION: SOB for 2 days. COPD. History of lung cancer. ???COMPARISON: 07/17/2022 portable AP chest ???02/28/2019 CTA chest ???FINDINGS: Heart size is within normal range. No pericardial or pleural effusion. ???There is extensive thoracic aortic and some great vessel calcifications in addition to prominent coronary artery calcifications. No thoracic aortic aneurysm. ???Normal size and attenuation of the thyroid gland. No hilar or mediastinal mass lesion or lymphadenopathy. ???Moderate to moderately severe emphysema and bilateral pulmonary hyperinfl ation. ???There is a chronic linear scarring in the right lower lobe and left lower lobe. There is another linear scar or discoid atelectasis in the right lower lobe since 02/28/2019. ???There is minimal atelectasis at the dependent lung bases, both lower lobes. ???Included portions of the adrenal glands are unremarkable. ???One or more ventral abdominal wall hernias. ???Multiple old healed right rib fractures. ???Moderate anterior wedge compression fracture deformity of T6. ???Degenerative disc disease of the lower cervical spine and degenerative spurring of the thoracic spine. ???No suspicious osteolytic or osteoblastic lesions are noted. ???IMPRESSION:? Moderate to moderately severe emphysema ???Mild discoid atelectasis and/or scarring in the lower lobes ???Minimal bilateral lower lobe dependent atelectasis ???Aortic, great vessel and coronary artery atherosclerosis ???06/05/2022 CXR EXAMINATION: XR chest 2V ?INDICATION: SOB,?COMPARISON: 05/19/2022, 05/07/2022 ?FINDINGS: There are small pleural effusions. There is no pneumothorax. There are minimal airspace opacities of the lung bases. The cardiomediastinal silhouette is normal. There is a chronic compression fracture of T6 without significant change. ?IMPRESSION: ?1. Small pleural effusions with minimal bibasilar airspace opacities, likely atelectasis. ???04/03/2022 ABG on 3 L 7.42/49/111 ???03/10/2022 ABG RA 7.42/50/44 ?06/20/2019:? I have PFT report from [facility]. ???Findings: ???Spirometry:? There is decreased maximal expiratory airflow at all lung volumes with concave expiratory flow tracing.? The contour of the inspiratory flow tracing is normal.? The pre bronchodilator FVC is 1.64 L, 64% predicted.? The pre bronchodilator FEV1 is 0.76 L, 37% predicted.? The pre bronchodilator FEV1:? FVC ratio is 47%.? The post bronchodilator FVC is 2.10 L, representing a 28% increase.? The post bronchodilator FEV1 is 0.80 L, representing a 5% increase.? The post bronchodilator FEV1:? FVC ratio is 38%. ???Plethysmography:? The total lung capacity is 4.88 L, 110% predicted.? The functional residual capacity is 3.71 L, 159% predicted.? The residual volume is 3.24 L, 185% predicted. ???Diffusing capacity:? The diffusing capacity unadjusted for hemoglobin and carboxyhemoglobin is 5.6, 28% predicted.? The diffusing capacity adjusted for alveolar volume is 2.39, 66% predicted. ?My?Impression: There is a severe obstructive abnormality with significant improvement after inhaling a single dose of albuterol. The increase in residual volume is consistent with air trapping from an obstructive abnormality.? Hyperinflation is present as demonstrated by the increase in functional residual capacity and is consistent with an obstructive abnormality. The diffusing capacity unadjusted for hemoglobin and carboxyhemoglobin is severely decreased and is mildly decreased when adjusted for alveolar volume. ???When compared to the spirometry on 03/03/2019 the pre bronchodilator FVC has increased from 1.05 L to 1.64 L. The pre bronchodilator FEV1 has increased from 0.47 L to 0.76 L. ?03/03/2019 I have an echocardiogram report from [facility]: ???Summary:? The calculated ejection fraction is 52.? Left ventricular diastolic function is abnormal, grade 1 impaired relaxation.? Right ventricular systolic function is normal.? No evidence of pericardial effusion.? A trace of tricuspid regurgitation normal RV size and function normal right atrial size. ???01/09/[address] [facility].? Summary:? The left ventricle size is normal.? The left ventricular systolic function is lower limits of normal with an estimated LV EF of 50-55%.? Left ventricular diastolic function is abnormal grade 1, impaired relaxation, right ventricular systolic pressure is 37, mild aortic valve sclerosis ?03/03/2019:? I have a spirometry report from [facility]. ??Spirometry:? There is decreased maximal expiratory airflow at all lung volumes with concave expiratory flow tracing.? The contour the inspiratory flow tracing is normal.? The FVC is 1.05 L, 36% predicted.? The FEV1 is 0.47 L, 20% predicted.? The FEV1:? FVC ratio is 45%. ???My impression:? There is a very severe obstructive abnormality. ?? ?01/09/2019:? CT angiogram chest report from [facility].? Impression: no CT evidence of pulmonary embolism.? Mosaic perfusion in the upper and lower lobes may represent small airways disease or peripheral airways disease or sequela of radiation therapy if applicable.? The left hilar and suprahilar mass seen in 2012 is no longer present. ? 09/22/2018:? I have a report CT scan of the chest from [facility] demonstrating no pulmonary embolism, mild to moderate emphysema small amount of post infectious residual, no lymphadenopathy no pleural effusions, no pericardial effusion, no pneumothorax. ?? 01/09/2019: ? Report from [facility] ???EXAMINATION:CTA, CHEST FOR PE ???CLINICAL INDICATION: ???68-year-old inpatient with increasing SOB bilateral hand??and leg swelling over the past 6 weeks.? Given history of CHF, COPD,??coronary artery disease and lung carcinoma.??COMPARISON:??CTA chest abdomen pelvis with contrast 01/28/2013 and FDG PET/CT 02/02/2013 ?FINDINGS: ?The study was technically adequate??No intraluminal filling defects, wall thickening, or thrombus is present in??the pulmonary arterial vascular tree to suggest pulmonary embolus ?Although there is no given history of whether this patient had radiation or??chemotherapy the large left hilar and suprahilar mass seen in 2012 is no??longer present.? Mild thickening within the left hilar region of the??previously seen mass.? No recurrent hilar mass or mediastinal or hilar??lymphadenopathy.? Subtle mosaic perfusion of the upper lobes and dependent??lower lobes may represent small airway disease or peripheral airway disease ???or could be sequela of radiation therapy.? Additionally, small bibasilar??effusions and bilateral enhancing lower lobe atelectasis probably??compressive atelectasis.? The mosaic perfusion in the lower lobes has??superimposed interlobar septal thickening and groundglass opacities which??is suggestive of development of pulmonary edema. ???Mild cardiomegaly due to biventricular prominence.? No pericardial??effusion.? There is moderate hepatic venous reflux suggestive of a elevated??right heart pressures..? Normal caliber thoracic aorta.? No evidence of??aortic dissection. ???Included portions of the liver is homogeneous in density.? No definite??enhancing hepatic mass in the upper liver.? The spleen and adrenal glands??and tail of pancreas are unremarkable.? Stable wide neck supra u mbilical?epigastric region ventral wall hernia containing nonentrapped nonobstructed?appearing loops of transverse colon unchanged since 2013.? This is only?partially included on this study. ???Bone window imaging fails to demonstrate pathologic bony abnormality.???Interval wedge compression deformity of T6. ?IMPRESSION: ???1. No CT evidence of pulmonary embolus ???2.? Mosaic perfusion in the upper and lower lobes may represent small ???airway disease or peripheral airway disease or sequela of radiation therapy?if applicable. ???3.? Concomitant findings of definite pulmonary edema bibasilar effusions??lower lobe atelectasis may represent CHF; there is always a possibility??this could represent malignant pleural effusions ???4.? Although there is no given history of bladder on this patient has?undergone radiation therapy or chemotherapy the left hilar and suprahilar?mass seen in 2013 is no longer present. ???5.? Wedge compression deformity T6 Since 2013 Review of Systems Constitutional: Constitutional: Reports no additional constitutional complaints Eyes: Eyes: Reports no additional eye complaints ENT: Reports system reviewed and no additional complaints, except as documented Cardiovascular: Cardiovascular: Reports no additional cardiovascular complaints Respiratory: Respiratory: Reports no additional respiratory complaints Gastrointestinal: Gastrointestinal: Reports no additional gastrointestinal complaints Musculoskeletal: Musculoskeletal: Reports no additional musculoskeletal complaints Neurologic: Reports system reviewed and no additional complaints, except as documented Psychiatric: Psychiatric: Reports no additional psychiatric complaints Endocrine: Endocrine: Reports no additional endocrine complaints Hematologic/Lymphatic: Hematologic/Lymphatic: Reports no additional hematologic/lymphatic complaints Allergic/Immunologic: Allergic/Immunologic: Reports no additional allergic/immunologic complaints Exam Const: General: cooperative, comfortable and no acute distress Orientation/consciousness: oriented to person, oriented to place and oriented to time HENMT: Head: normal to inspection Ears: hearing grossly normal bilaterally Eyes: General: appearance normal, both eyes and all related structures Neck: Neck: normal visual inspection Chest: Chest palpation & inspection: normal inspection of the chest Resp: Effort & Inspection: normal respiratory effort and able to speak in complete sentences Auscultation: no crackles, no rales, no rhonchi, wheezes and diminished lung sounds Other: Expiratory wheezes Cardio: Jugular venous distension: no JVD GI: Inspection: normal to inspection Skin: General skin exam: normal color Neuro: General: oriented to person, oriented to place and oriented to time Extrem: General: normal to inspection and edema Other: Positive bilateral lower extremity edema. Psych: Appearance: grossly normal Objective Data Vital Signs Vital Signs: Vital Signs - 24 hr 08/20/25 14:00 08/20/25 14:20 08/20/25 15:00 Temperature Pulse Rate 87 73 73 Respiratory Rate 20 20 Blood Pressure Pulse Oximetry 98 Oxygen Delivery Oxygen Flow Rate 08/20/25 15:07 08/20/25 16:00 08/20/25 16:00 Temperature Pulse Rate 75 82 Respiratory Rate 20 Blood Pressure Pulse Oximetry 98 Oxygen Delivery Nasal Cannula Oxygen Flow Rate 2 08/20/25 16:00 08/20/25 18:00 08/20/25 20:00 Temperature 36.7 C Pulse Rate 82 87 Respiratory Rate 20 Blood Pressure 134/70 Pulse Oximetry 98 92 Oxygen Delivery Nasal Cannula Oxygen Flow Rate 2 08/20/25 20:00 08/20/25 20:28 08/20/25 20:50 Temperature 36.8 C Pulse Rate 83 88 84 Respiratory Rate 20 18 Blood Pressure 137/68 Pulse Oximetry 92 Oxygen Delivery Oxygen Flow Rate 08/20/25 20:53 08/20/25 20:57 08/20/25 22:00 Temperature Pulse Rate 84 81 Respiratory Rate 18 Blood Pressure Pulse Oximetry 92 Oxygen Delivery Nasal Cannula Oxygen Flow Rate 2 08/20/25 23:08 08/21/25 00:00 08/21/25 00:00 Temperature Pulse Rate 84 61 Respiratory Rate 19 Blood Pressure Pulse Oximetry 94 92 Oxygen Delivery Nasal Cannula Oxygen Flow Rate 2 08/21/25 00:15 08/21/25 02:00 08/21/25 02:28 Temperature 36.7 C Pulse Rate 64 68 66 Respiratory Rate 18 19 Blood Pressure 132/64 Pulse Oximetry 95 100 Oxygen Delivery Oxygen Flow Rate 08/21/25 04:00 08/21/25 04:00 08/21/25 06:00 Temperature Pulse Rate 60 63 Respiratory Rate Blood Pressure Pulse Oximetry 96 Oxygen Delivery Nasal Cannula Oxygen Flow Rate 2 08/21/25 07:05 08/21/25 08:00 08/21/25 08:17 Temperature 36.8 C 36.7 C Pulse Rate 63 73 91 Respiratory Rate 16 20 Blood Pressure 130/68 140/62 Pulse Oximetry 95 98 Oxygen Delivery Nasal Cannula Oxygen Flow Rate 2 08/21/25 08:17 08/21/25 08:22 08/21/25 11:13 Temperature Pulse Rate 91 84 85 Respiratory Rate 18 18 20 Blood Pressure Pulse Oximetry Oxygen Delivery Oxygen Flow Rate 08/21/25 11:18 08/21/25 12:00 Temperature 36.7 C Pulse Rate 72 98 Respiratory Rate 20 24 H Blood Pressure 141/61 H Pulse Oximetry 90 Oxygen Delivery Oxygen Flow Rate Intake/Output Intake/Output: Intake & Output 08/18/25 08/19/25 08/20/25 08/21/25 23:59 23:59 23:59 23:59 Intake Total 860 2120 1110 668 Output Total 638 746 6564 800 Balance 260 1340 20 -132 Meds/Results Medications: Active Medications Generic Name Dose Route Start Last Admin Trade Name Freq PRN Reason Stop Dose Admin Acetaminophen 650 mg 08/17/25 10:40 Acetaminophen 325 Mg Tablet PO Q4H PRN Mild Pain (1-3) or Fever Hydrocodone Bitart/Acetaminophen 1 tab 08/17/25 10:40 08/20/25 13:56 Hydrocodone/Acetaminophen (*Crx) 5-325 Mg Tablet PO 1 tab Q4H PRN Administration Moderate Pain (4-6) Al Hydrox/Mg Hydrox/Simethicone 30 ml 08/17/25 10:40 Mag Hydrox/Al Hydrox/Simeth 30 Ml Udc PO QID PRN Dyspepsia Albuterol 2 puff 08/17/25 14:38 Albuterol Sulfate (*Sp) Aerosol 1 Puff INHALATION Q6HRT PRN Shortness Of Breath Or Wheezing Albuterol/Ipratropium 3 ml 08/17/25 16:00 08/21/25 11:13 Ipratropium 0.5 Mg/Albuterol Sulfate 2.5 Mg (Base) Ampul.Neb 3 Ml INHALATION 3 ml QIDRT JESSIE Administration Alprazolam 0.5 mg 08/17/25 14:38 08/21/25 09:31 Alprazolam (*Crx) 0.5 Mg Tablet PO 0.5 mg Q8H PRN Administration Anxiety Aspirin 81 mg 08/18/25 09:00 08/21/25 09:31 Aspirin 81 Mg Enteric Tablet PO 81 mg DAILY JESSIE Administration Atorvastatin Calcium 40 mg 08/17/25 21:00 08/20/25 21:45 Atorvastatin 40 Mg Tablet PO 40 mg HS JESSIE Administration Buspirone HCl 10 mg 08/21/25 21:00 Buspirone Hcl 10 Mg Tablet PO Q12HR JESSIE Docusate Sodium 100 mg 08/20/25 11:23 Docusate Sodium 100 Mg Capsule PO Q12H PRN Constipation Enoxaparin Sodium 40 mg 08/17/25 11:00 08/21/25 09:28 Enoxaparin 40 Mg/0.4 Ml Syringe SUB-Q 40 mg DAILY JESSIE Administration Escitalopram Oxalate 10 mg 08/18/25 09:00 08/21/25 09:30 Escitalopram Oxalate 10 Mg Tablet PO 10 mg DAILY JESSIE Administration Ferrous Sulfate 325 mg 08/17/25 17:00 08/21/25 09:31 Ferrous Sulfate 325 Mg Tablet BY MOUTH 325 mg TID JESSIE Administration Furosemide 40 mg 08/17/25 11:00 08/21/25 09:32 Furosemide Inj 40 Mg/4 Ml Vial IV PUSH 40 mg BID JESSIE Administration Gabapentin 300 mg 08/17/25 22:00 08/20/25 21:44 Gabapentin 300 Mg Capsule PO 300 mg Q8HR [facility] Administration Guaifenesin 1,200 mg 08/21/25 21:00 Guaifenesin 12 Hr 600 Mg Tabcr PO Q12HR [facility] Azithromycin 500 mg/ Sodium 250 mls @ 250 mls/hr 08/18/25 10:00 08/20/25 10:30 Chloride IVPB 250 mls/hr Q24H JESSIE Administration Ceftriaxone Sodium 2 gm/ 100 mls @ 200 mls/hr 08/18/25 09:00 08/21/25 09:28 Sodium Chloride IVPB 200 mls/hr Q24H JESSIE Administration Levetiracetam 250 mg 08/17/25 21:00 08/21/25 09:30 Levetiracetam 250 Mg Tablet PO 250 mg Q12H JESSIE Administration Loratadine 5 mg 08/17/25 18:00 08/20/25 16:44 Loratadine 5 Mg Tablet PO 5 mg QPM JESSIE Administration Magnesium Hydroxide 30 ml 08/17/25 10:40 Magnesium Hydroxide Susp 30 Ml Udc PO DAILY PRN Constipation Melatonin 5 mg 08/17/25 21:00 08/20/25 21:45 Melatonin 5 Mg Tablet PO 5 mg HS JESSIE Administration Methylprednisolone Sodium Succinate 20 mg 08/21/25 13:00 Methylprednisolone Sod Succ 40 Mg Vial IV PUSH QID [facility] Multivitamins Therapeutic 1 tablet 12/05/25 09:00 08/21/25 09:30 Multivitamins Therapeutic Tab (*Bkc) PO 1 tablet DAILY JESSIE Administration Ondansetron HCl 4 mg 08/17/25 10:40 Ondansetron Inj 4 Mg/2 Ml Vial IV PUSH Q6H PRN Nausea And Vomiting Pantoprazole Sodium 40 mg 08/18/25 09:00 08/21/25 09:30 Pantoprazole 40 Mg Tablet PO 40 mg QAM [facility] Administration Potassium Chloride 20 meq 08/17/25 17:00 08/21/25 09:29 Potassium Chloride 20 Meq Er Tablet PO 20 meq BID JESSIE Administration Ropinirole HCl 1 mg 08/17/25 17:00 08/21/25 09:30 Ropinirole Hcl 1 Mg Tablet PO 1 mg TID JESSIE Administration Fluticasone/Salmeterol 2 puff 08/17/25 20:00 Fluticasone/Salmeterol 230-21 Mcg Inhaler 1 Puff INHALATION On Hold: 08/17/25 17:08 Q12HRT [facility] Comment: HOLD WHILE ON DUONEB UPDRAFT. ALSO PATIENT ON SOLUEDROL Spironolactone 25 mg 08/18/25 09:00 08/21/25 09:31 Spironolactone 25 Mg Tablet PO 25 mg DAILY JESSIE Administration Radiology Results: ITS Impressions Chest X-Ray 08/17/25 07:42 IMPRESSION: 1. Suspect mild persistent right basilar airspace disease. Labs Labs: Laboratory Results - last 24 hr 08/21/25 04:25 WBC 9.7 RBC 4.12 L Hgb 11.8 L Hct 39.3 MCV 95.4 MCH 28.6 MCHC 30.0 L RDW 14.7 H Plt Count 283 MPV 9.7 Immature Gran % (Auto) 2.4 H Neut % (Auto) 90.8 H Lymph % (Auto) 4.2 L [place] % (Auto) 2.1 L Eos % (Auto) 0.0 Baso % (Auto) 0.5 Lymph # (Auto) 0.41 L [place] # (Auto) 0.2 Eos # (Auto) 0.0 Baso # (Auto) 0.1 Abs Immat Gran (auto) 0.23 H Absolute Neuts (auto) 8.8 H Absolute Nucleated RBC 0.020 H Band Neutrophils % Not Reportable Nucleated RBC % 0.2 Platelet Estimate Adequate Anisocytosis 1+ Ovalocytes 1+ Schistocytes None seen Sodium 141 Potassium 4.4 Chloride 106 Carbon Dioxide 31 H Anion Gap 4 BUN 39 H Creatinine 1.27 H Estim Creat Clear Calc 31 Estimated GFR 41 L Glucose 114 H Calcium 8.5 Magnesium 2.5 H Total Bilirubin 0.4 AST 25 ALT 22 Alkaline Phosphatase 72 NT-Pro-B Natriuret Pep 1810 H Total Protein 7.1 Albumin 4.0
--- NOTE | 2025-08-21 12:48 | P.PNIM_ITS ---
Assessment and Plan Assessment and Plan (1) Acute hypercapnic respiratory failure: Code(s): J96.02 - Acute respiratory failure with hypercapnia Status: Acute Assessment and Plan: Has history of gold grade 4, history of alpha-1 antitrypsin genotype mm * Appreciate pulmonology consultation and recommendations * Continue with supplemental O2 and BiPAP settings as recommended by pulmonology (2) Acute exacerbation of chronic obstructive pulmonary disease: Code(s): J44.1 - Chronic obstructive pulmonary disease with (acute) exacerbation Status: Acute Assessment and Plan: Recently hospitalized and discharged, now having worsening symptoms. [place] to be due to poor compliance with noninvasive ventilation in overuse of supplemental O2 * As above, appreciate pulmonology recommendations * Continue with supplemental O2 per protocol * Continue IV Solu-Medrol, wean as tolerated * Continue with DuoNebs, expectorants, flutter valve * Will need close outpatient follow-up with pulmonology as her insurance is changing September 14 and will need to be started on new inhalers (3) Tachycardia: Code(s): R00.0 - Tachycardia, unspecified Status: Acute Assessment and Plan: HR in the 150-170s. Appears to be in Afib. States Dr. Nava just suggested Hospice and she is having a lot of anxiety -Order EKG -Metoprolol tartrate 5 mg IV x1 -Xanax x1 (4) Bilateral pneumonia: Qualifiers: Lung location: lower lobe of lung Pneumonia type: due to unspecified organism Qualified Code(s): J18.9 - Pneumonia, unspecified organism Code(s): J18.9 - Pneumonia, unspecified organism Status: Acute Assessment and Plan: Repeat CXR 08/17/2025 shows persistent airspace disease * Continue ceftriaxone and azithromycin day #5 * Continue supportive care measures as above * Urine antigens negative for strep pneumonia and Legionella (5) Diastolic CHF: Qualifiers: Heart failure chronicity: unspecified Qualified Code(s): I50.30 - Unspecified diastolic (congestive) heart failure Code(s): I50.30 - Unspecified diastolic (congestive) heart failure Status: Chronic Assessment and Plan: echocardiogram shows 40-45% left ventricular diastolic dysfunction * Appreciate cardiology consultation and recommendation * Continue Lasix 40 mg IV b.i.d., plan to wean as tolerated once she demonstrates improvement * When she is off IV diuresis, she will need to be transitioned to p.o. bumetanide 1 mg b.i.d. her Cardiology recommendations as oral Lasix had not been helping improve her symptoms. Will continue spironolactone 25 mg daily * Fluid restriction 1.5 L per day. Weigh patient daily * Continue compression stockings and leg elevation * Needs outpatient follow-up with Dr. Meyers 2 weeks following discharge (6) Laceration: Status: Acute Assessment and Plan: Developed right knee laceration following fall * Received wound care in ED. Wound was irrigated. 6 sutures placed. * Will need suture removal 10-14 days following placement (7) CKD (chronic kidney disease) stage 3, GFR 30-59 ml/min: Qualifiers: Chronic kidney disease stage 3 subtype: unspecified whether 3a or 3b Qualified Code(s): N18.30 - Chronic kidney disease, stage 3 unspecified Code(s): N18.30 - Chronic kidney disease, stage 3 unspecified Status: Acute Assessment and Plan: Chronic * Slight elevation in creatinine today to 1.27, likely due to IV diuresis * Monitor BMP closely, hold Lasix if any further increase (8) Iron deficiency anemia: Code(s): D50.9 - Iron deficiency anemia, unspecified Status: Acute Assessment and Plan: H&H remaining stable * Monitor daily (9) Hypertension: Qualifiers: Hypertension type: primary hypertension Qualified Code(s): I10 - Essential (primary) hypertension Code(s): I10 - Essential (primary) hypertension Status: Chronic Assessment and Plan: Blood pressure stable, 136/67 today * Continue furosemide and spironolactone * Monitor BP trends (10) Weakness: Code(s): R53.1 - Weakness Status: Acute Assessment and Plan: Progressive weakening with more frequent falls * Continue PT/OT during admission Subjective Date/time seen: 08/21/25 12:48 Interval history: Patient with labored breathing day. Says that she feels extremely short of breath. Her oxygen saturations were around 98. Discussed her care with Dr. Nava. He states that she is in end-stage COPD and that her labor breathing is baseline for her. Was called back in at 1:00 a.m. in the afternoon today due to elevated heart rate between [id number]. When listening to the patient she appeared to be in AFib. In looking through chart I cannot see history of AFib in her past medical history. She does mention that she is having a lot of anxiety due to Dr. Nava recommending hospice. Would agree that this is a good idea due to how severe her COPD is. Exam Narrative: GENERAL: Comfortable, no acute distress HENMT: moist mucous membranes. Dentures in place. EYES: EOM intact b/l NECK: no lymphadenopathy RESPIRATORY: Scattered wheezing, labored breathing, supplemental oxygen 2L CARDIO: irregular rhythm, irregular rate GI: Abdomen distended SKIN/EXTREMITIES: no rashes, no edema, no redness or tenderness Objective Data Vital Signs Vital Signs: Vital Signs - 24 hr 08/20/25 14:00 08/20/25 14:20 08/20/25 15:00 Temperature Pulse Rate 87 73 73 Respiratory Rate 20 20 Blood Pressure Pulse Oximetry 98 Oxygen Delivery Oxygen Flow Rate 08/20/25 15:07 08/20/25 16:00 08/20/25 16:00 Temperature Pulse Rate 75 82 Respiratory Rate 20 Blood Pressure Pulse Oximetry 98 Oxygen Delivery Nasal Cannula Oxygen Flow Rate 2 08/20/25 16:00 08/20/25 18:00 08/20/25 20:00 Temperature 98.1 F Pulse Rate 82 87 Respiratory Rate 20 Blood Pressure 134/70 Pulse Oximetry 98 92 Oxygen Delivery Nasal Cannula Oxygen Flow Rate 2 08/20/25 20:00 08/20/25 20:28 08/20/25 20:50 Temperature 98.2 F Pulse Rate 83 88 84 Respiratory Rate 20 18 Blood Pressure 137/68 Pulse Oximetry 92 Oxygen Delivery Oxygen Flow Rate 08/20/25 20:53 08/20/25 20:57 08/20/25 22:00 Temperature Pulse Rate 84 81 Respiratory Rate 18 Blood Pressure Pulse Oximetry 92 Oxygen Delivery Nasal Cannula Oxygen Flow Rate 2 08/20/25 23:08 08/21/25 00:00 08/21/25 00:00 Temperature Pulse Rate 84 61 Respiratory Rate 19 Blood Pressure Pulse Oximetry 94 92 Oxygen Delivery Nasal Cannula Oxygen Flow Rate 2 08/21/25 00:15 08/21/25 02:00 08/21/25 02:28 Temperature 98.0 F Pulse Rate 64 68 66 Respiratory Rate 18 19 Blood Pressure 132/64 Pulse Oximetry 95 100 Oxygen Delivery Oxygen Flow Rate 08/21/25 04:00 08/21/25 04:00 08/21/25 06:00 Temperature Pulse Rate 60 63 Respiratory Rate Blood Pressure Pulse Oximetry 96 Oxygen Delivery Nasal Cannula Oxygen Flow Rate 2 08/21/25 07:05 08/21/25 08:00 08/21/25 08:17 Temperature 98.2 F 98.0 F Pulse Rate 63 73 91 Respiratory Rate 16 20 Blood Pressure 130/68 140/62 Pulse Oximetry 95 98 Oxygen Delivery Nasal Cannula Oxygen Flow Rate 2 08/21/25 08:17 08/21/25 08:22 08/21/25 11:13 Temperature Pulse Rate 91 84 85 Respiratory Rate 18 18 20 Blood Pressure Pulse Oximetry Oxygen Delivery Oxygen Flow Rate 08/21/25 11:18 08/21/25 12:00 Temperature 98.0 F Pulse Rate 72 98 Respiratory Rate 20 24 H Blood Pressure 141/61 H Pulse Oximetry 90 Oxygen Delivery Oxygen Flow Rate Intake/Output Intake/Output: Intake & Output 08/18/25 08/19/25 08/20/25 08/21/25 23:59 23:59 23:59 23:59 Intake Total 860 2120 1110 890 Output Total 718 778 2272 800 Balance 260 1340 20 90 Meds/Results Medications: Active Medications Generic Name Dose Route Start Last Admin Trade Name Freq PRN Reason Stop Dose Admin Acetaminophen 650 mg 08/17/25 10:40 Acetaminophen 325 Mg Tablet PO Q4H PRN Mild Pain (1-3) or Fever Hydrocodone Bitart/Acetaminophen 1 tab 08/17/25 10:40 08/20/25 13:56 Hydrocodone/Acetaminophen (*Crx) 5-325 Mg Tablet PO 1 tab Q4H PRN Administration Moderate Pain (4-6) Al Hydrox/Mg Hydrox/Simethicone 30 ml 08/17/25 10:40 Mag Hydrox/Al Hydrox/Simeth 30 Ml Udc PO QID PRN Dyspepsia Albuterol 2 puff 08/17/25 14:38 Albuterol Sulfate (*Sp) Aerosol 1 Puff INHALATION Q6HRT PRN Shortness Of Breath Or Wheezing Albuterol/Ipratropium 3 ml 08/17/25 16:00 08/21/25 11:13 Ipratropium 0.5 Mg/Albuterol Sulfate 2.5 Mg (Base) Ampul.Neb 3 Ml INHALATION 3 ml QIDRT JESSIE Administration Alprazolam 0.5 mg 08/17/25 14:38 08/21/25 09:31 Alprazolam (*Crx) 0.5 Mg Tablet PO 0.5 mg Q8H PRN Administration Anxiety Aspirin 81 mg 08/18/25 09:00 08/21/25 09:31 Aspirin 81 Mg Enteric Tablet PO 81 mg DAILY JESSIE Administration Atorvastatin Calcium 40 mg 08/17/25 21:00 08/20/25 21:45 Atorvastatin 40 Mg Tablet PO 40 mg HS JESSIE Administration Buspirone HCl 10 mg 08/21/25 21:00 Buspirone Hcl 10 Mg Tablet PO Q12HR JESSIE Docusate Sodium 100 mg 08/20/25 11:23 Docusate Sodium 100 Mg Capsule PO Q12H PRN Constipation Enoxaparin Sodium 40 mg 08/17/25 11:00 08/21/25 09:28 Enoxaparin 40 Mg/0.4 Ml Syringe SUB-Q 40 mg DAILY JESSIE Administration Escitalopram Oxalate 10 mg 08/18/25 09:00 08/21/25 09:30 Escitalopram Oxalate 10 Mg Tablet PO 10 mg DAILY JESSIE Administration Ferrous Sulfate 325 mg 08/17/25 17:00 08/21/25 09:31 Ferrous Sulfate 325 Mg Tablet BY MOUTH 325 mg TID JESSIE Administration Furosemide 40 mg 08/17/25 11:00 08/21/25 09:32 Furosemide Inj 40 Mg/4 Ml Vial IV PUSH 40 mg BID JESSIE Administration Gabapentin 300 mg 08/17/25 22:00 08/20/25 21:44 Gabapentin 300 Mg Capsule PO 300 mg Q8HR JESSIE Administration Guaifenesin 1,200 mg 08/21/25 21:00 Guaifenesin 12 Hr 600 Mg Tabcr PO Q12HR JESSIE Azithromycin 500 mg/ Sodium 250 mls @ 250 mls/hr 08/18/25 10:00 08/20/25 10:30 Chloride IVPB 250 mls/hr Q24H JESSIE Administration Ceftriaxone Sodium 2 gm/ 100 mls @ 200 mls/hr 08/18/25 09:00 08/21/25 09:28 Sodium Chloride IVPB 200 mls/hr Q24H JESSIE Administration Levetiracetam 250 mg 08/17/25 21:00 08/21/25 09:30 Levetiracetam 250 Mg Tablet PO 250 mg Q12H JESSIE Administration Loratadine 5 mg 08/17/25 18:00 08/20/25 16:44 Loratadine 5 Mg Tablet PO 5 mg QPM JESSIE Administration Magnesium Hydroxide 30 ml 08/17/25 10:40 Magnesium Hydroxide Susp 30 Ml Udc PO DAILY PRN Constipation Melatonin 5 mg 08/17/25 21:00 08/20/25 21:45 Melatonin 5 Mg Tablet PO 5 mg HS JESSIE Administration Methylprednisolone Sodium Succinate 20 mg 08/21/25 13:00 Methylprednisolone Sod Succ 40 Mg Vial IV PUSH QID JESSIE Multivitamins Therapeutic 1 tablet 08/18/25 09:00 08/21/25 09:30 Multivitamins Therapeutic Tab (*Bkc) PO 1 tablet DAILY JESSIE Administration Ondansetron HCl 4 mg 08/17/25 10:40 Ondansetron Inj 4 Mg/2 Ml Vial IV PUSH Q6H PRN Nausea And Vomiting Pantoprazole Sodium 40 mg 08/18/25 09:00 08/21/25 09:30 Pantoprazole 40 Mg Tablet PO 40 mg QAM JESSIE Administration Potassium Chloride 20 meq 08/17/25 17:00 08/21/25 09:29 Potassium Chloride 20 Meq Er Tablet PO 20 meq BID JESSIE Administration Ropinirole HCl 1 mg 08/17/25 17:00 08/21/25 09:30 Ropinirole Hcl 1 Mg Tablet PO 1 mg TID JESSIE Administration Fluticasone/Salmeterol 2 puff 08/17/25 20:00 Fluticasone/Salmeterol 230-21 Mcg Inhaler 1 Puff INHALATION On Hold: 08/17/25 17:08 Q12HRT [facility] Comment: HOLD WHILE ON DUONEB UPDRAFT. ALSO PATIENT ON SOLUEDROL Spironolactone 25 mg 08/18/25 09:00 08/21/25 09:31 Spironolactone 25 Mg Tablet PO 25 mg DAILY JESSIE Administration Radiology Results: ITS Impressions Chest X-Ray 08/17/25 07:42 IMPRESSION: 1. Suspect mild persistent right basilar airspace disease. Labs Labs: Laboratory Results - last 24 hr 08/21/25 04:25 WBC 9.7 RBC 4.12 L Hgb 11.8 L Hct 39.3 MCV 95.4 MCH 28.6 MCHC 30.0 L RDW 14.7 H Plt Count 283 MPV 9.7 Immature Gran % (Auto) 2.4 H Neut % (Auto) 90.8 H Lymph % (Auto) 4.2 L [place] % (Auto) 2.1 L Eos % (Auto) 0.0 Baso % (Auto) 0.5 Lymph # (Auto) 0.41 L [place] # (Auto) 0.2 Eos # (Auto) 0.0 Baso # (Auto) 0.1 Abs Immat Gran (auto) 0.23 H Absolute Neuts (auto) 8.8 H Absolute Nucleated RBC 0.020 H Band Neutrophils % Not Reportable Nucleated RBC % 0.2 Platelet Estimate Adequate Anisocytosis 1+ Ovalocytes 1+ Schistocytes None seen Sodium 141 Potassium 4.4 Chloride 106 Carbon Dioxide 31 H Anion Gap 4 BUN 39 H Creatinine 1.27 H Estim Creat Clear Calc 31 Estimated GFR 41 L Glucose 114 H Calcium 8.5 Magnesium 2.5 H Total Bilirubin 0.4 AST 25 ALT 22 Alkaline Phosphatase 72 NT-Pro-B Natriuret Pep 1810 H Total Protein 7.1 Albumin 4.0
--- NOTE | 2025-08-21 13:00 | ECG_ITS ---
Test Date: 2025-08-21 13:49:27 Measurements Intervals [place] Rate: 83 P: 68 SC: 164 QRS: 27 QRSD: 89 T: 47 QT: 372 QTc: 438 Interpretive Statements SINUS RHYTHM BASELINE ARTIFACT- II, III, AVR, AVL, AVF, V1, V4-V6 NORMAL ECG Compared to ECG 08/17/2025 06:53:43 No significant changes Electronically Signed On 08-21-2025 14:58:27 [employer] by Oli Meyers D.O.
[2025-08-21] MEDS: METOPROLOL TARTRATE INJ 5 MG/5 ML VIAL IV PUSH (13:09)
[2025-08-21] MEDS: AZITHROMYCIN IV 500 MG in SODIUM CHLORIDE 0.9% IV 250 ML IVPB (13:12)
[2025-08-21] MEDS: ROFLUMILAST 250 MCG TABLET PO (13:14)
--- NOTE | 2025-08-21 13:14 | PCPTNOTE ---
The patient treatment was not able to be completed on 08/21/2025, per RN patient has been having elevated heart rate and decrease O2 SATs RN advised not to see patient for PT. Will plan to continue treatment per plan of care.
[2025-08-21] MEDS: busPIRone HCL 2.5 MG, busPIRone HCL 5 MG 7.5 MG PO (13:56)
--- NOTE | 2025-08-21 15:15 | PC.NURSE ---
called [facility] for report, nurse busy in another room and will call back
[2025-08-21] MEDS: LORATADINE 5 MG TABLET PO (18:17)
[2025-08-21] MEDS: ATORVASTATIN 40 MG TABLET PO (20:30)
[2025-08-21] MEDS: guaiFENesin 12 HR 600 MG TABCR 1200 MG PO (20:30)
[2025-08-21] MEDS: MELATONIN 5 MG TABLET PO (20:30)
[2025-08-21] MEDS: GABAPENTIN 300 MG CAPSULE PO (20:30)
[2025-08-21] MEDS: HYDROcodone/acetaminophen (*CRX) 5-325 MG TABLET 1 TAB PO (20:39)
[2025-08-22] VITALS (14 sets, daily range): BP systolic 116–123; BP diastolic 58–66; PULSE 63–84; RESP 16–20; TEMP 36.1–36.6; O2SAT 94–99
[2025-08-22] MEDS: GABAPENTIN 300 MG CAPSULE PO ×3 (05:01→23:56)
[2025-08-22] MEDS: SPIRONOLACTONE 25 MG TABLET PO (08:38)
[2025-08-22] MEDS: MULTIVITAMINS THERAPEUTIC TAB (*BKC) 1 TABLET PO (08:38)
[2025-08-22] MEDS: PANTOPRAZOLE 40 MG TABLET PO (08:38)
[2025-08-22] MEDS: POTASSIUM CHLORIDE 20 MEQ ER TABLET PO ×2 (08:38→17:00)
[2025-08-22] MEDS: ROFLUMILAST 250 MCG TABLET PO (08:38)
[2025-08-22] MEDS: FERROUS SULFATE 325 MG TABLET BY MOUTH ×3 (08:38→17:00)
[2025-08-22] MEDS: ESCITALOPRAM OXALATE 10 MG TABLET PO (08:38)
[2025-08-22] MEDS: ALPRAZolam (*CRX) 0.5 MG TABLET PO (08:38)
[2025-08-22] MEDS: ASPIRIN 81 MG ENTERIC TABLET PO (08:38)
[2025-08-22] MEDS: cefTRIAXone 2 GM in SODIUM CHLORIDE 0.9% IV 100 ML IVPB (08:39)
[2025-08-22] MEDS: guaiFENesin 12 HR 600 MG TABCR 1200 MG PO ×2 (08:39→21:06)
[2025-08-22] MEDS: FUROSEMIDE INJ 40 MG/4 ML VIAL IV PUSH ×2 (08:39→17:06)
[2025-08-22] MEDS: ENOXAPARIN 40 MG/0.4 ML SYRINGE SUB-Q (08:39)
[2025-08-22] MEDS: IPRATROPIUM 0.5 MG/ALBUTEROL SULFATE 2.5 MG (BASE) AMPUL.NEB 3 ML INHALATION ×3 (09:38→20:20)
--- NOTE | 2025-08-22 11:14 | P.PNPL_ITS ---
Progress Note: A&P Assessment and Plan (1) COPD exacerbation: Code(s): J44.1 - Chronic obstructive pulmonary disease with (acute) exacerbation Status: Acute Assessment and Plan: GOLD grade 4 group E COPD Patient with tobacco use (35 PY, quit 2003), Alpha 1 anti trypsin genotype MM. PFTs 11/28/2022 with FEV1 0.59 L, 26%, no bronchodilator response, airtrapping, decreased DLCO when corrected for alveolar volume, severe apical panlobular emphysema on CT scan of the neck from 03/04/2019 and chest on 08/13/2022, hypoxic respiratory failure on 2 L NC rest and activity since 2020, hypercarbic respiratory failure with ABG on 2 L was 7.42/56/47 and started on noninvasive ventilation with 4 L bleed in on 12/2022. Unable to tolerate noninvasive ventilation due to mask discomfort despite multiple mask trials. Wheelchair bound after she had a stroke in 2013 with dyspnea on exertion with wheelchair transfers and pivots Echocardiogram from 06/06/2022 with LVEF 55-60, grade 1 diastolic dysfunction, Normal right ventricular size and function. Normal right atrial size. No tricuspid regurg to measure RVSP. Inpatient COPD exacerbation and pneumonia 09/15/2022. 09/15/2022 white blood cell count 18.8, eosinophils 1.3%=244/uL. 08/22/2022 white blood cell count 10.5, eosinophils 3.1% equals 326/uL. Last inpatient hospitalization 06/29/2023 (rhinoviral infection). 08/04/2025: Home O2 assessment: Rest room air saturation 88%. Rest nasal cannula 1 L saturation 92%. Exercise nasal cannula 1 L saturation 91%. Patient is nonambulatory and did exercises with the feet. Patient requires 1 L oxygen at rest and with activity. 08/20/25: Long standing advanced COPD, FEV1 much less than a liter in 2018, on Advair 230/21 and umeclidinium / Incruse 62.5 once a day; Isabela told me that her insurance is switching her to Spiriva on Sep 14, so she won't be able to take Incruse any longer. She has end stage COPD, and with increased eosinophils, she may benefit from Dupixent as add-on therapy. This is not for acute decompensations, only maintenance. This is not available in the [facility] setting as it is for maintanence, not exacerbations. 08/21/2025: Overall patient has shortness of breath at rest, shortness of breath with any activity, she has cough and the phlegm gets stuck in her throat. When I enter the room she was on 2.5 L with saturation 99%. I decreased her 1 L nasal cannula her saturations were 92%. She is afebrile. White blood cell count 9.7, creatinine 1.27, BNP has increased from 1200 on 08/19/2020 5-1810 today. Patient still has difficulty tolerating the noninvasive ventilation and has panic attacks. Plan: patient continues to deteriorate and never recovered from her previous hospital discharge on 08/04/2025. I will treat for reversible causes for short ness of breath at rest. I have treating for COPD exacerbation, pneumonia and fluid overload. I will decrease her Solu-Medrol to 20 mg q.6 hours, I will continue DuoNebs q.i.d.. I will discontinue Advair while she is on systemic steroids and DuoNebs q.i.d. I will increase her guaifenesin to 1200 mg p.o. q.i.d.. Continue ceftriaxone and azithromycin, both day 5. Continue Lasix 40 IV b.i.d.. patient with multiple exacerbations and I will add Daliresp 250 q.day. Patient has end-stage COPD now with 2 admissions in the last 4 weeks. She never recovered and has continued deterioration. I have told the patient and her caregiver that [facility] facility may help her and that she may wish to consider gather information from a hospice team. 08/22/2025: Overall the patient feels the same. She has rest shortness of breath. She did sit up in the chair. She has the same cough and phlegm that is minimal. No hemoptysis. When I enter the room she was on 2 L nasal cannula sat uration 99%. I 2 decreased her to 1 L nasal cannula her saturations were 98%. Patient states she has phlegm that she cannot expectorate. Patient wore home noninvasive ventilator with the 100 over the mouth under the nose mask and said she wore this for a few hours and was able to get some sleep. Plan: continue to treat 1st possible COPD exacerbation. Continue Solu-Medrol 20 q.6, DuoNebs q.6, I will add Mucomyst as she has difficulty expectorating q.6. She has completed 5 days of azithromycin will continue ceftriaxone, day 6 of 7. She is on Lasix 40 IV b.i.d.. Continue Daliresp 250 q.day. (2) Acute and chronic respiratory failure, unspecified whether with hypoxia or hypercapnia: Qualifiers: Respiratory failure complication: hypoxia and hypercapnia Qualified Code(s): J96.21 - Acute and chronic respiratory failure with hypoxia; J96.22 - Acute and chronic respiratory failure with hypercapnia Code(s): J96.20 - Acute and chronic respiratory failure, unspecified whether with hypoxia or hypercapnia Status: Acute Assessment and Plan: Acute and chronic respiratory failure, unspecified whether with hypoxia or hypercapnia Status: Acute Assessment and Plan: Worsening compared to discharge on Aug 04, anxiety contributed to panic, poor choices, not using NIV, over using O2, more falls with lower leg injuries treated at ER and Dr Donahue's office. She may be at end stage, however O2 requirement is low. She has low exerzize to [place] due to stroke, right hemiplegia. Does not appear to have a new pneumonia. Some of this is destabilized cardiac function, EF 40%, has diastolic an systolic dysfunction, and the large ventral hernia is not helping. 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 08/04/2025: Home O2 assessment: Rest room air saturation 88%. Rest nasal cannula 1 L saturation 92%. Exercise nasal cannula 1 L saturation 91%. Patient is nonambulatory and did exercises with the feet. Patient requires 1 L oxygen at rest and with activity. 08/21/25: patient tolerates noninvasive ventilation poorly. Last admission she did tolerate her home noninvasive ventilator through via med with AVAPS AE set tings rate of 14, tidal volume 500, EPAP minimum 5, EPAP maximum 15, pressure support minimum 10, pressure support maximum 25 with 2 L bleed in. last admission on 08/04/25: Patient was using and over the mouth under the nose mask And said that she slept for 3 hours and feels like this was greatly improved. Patient had an overnight oximetry on these settings with recording duration of 4 hours and 18 minutes, average saturation 93%, low saturation 82%, time with saturation less than or equal to 88% was 31 minutes. Oxygen desaturation index 8.9. Patient had ABG prior to removal with a pH of 7.40/50/59. Current AVAPS AE settings with under the nose over the mouth mask provide adequate ventilation. Overnight oximetry on 32% FiO2 on 08/01 provided adequate oxygenation and I will discharge her on 3 L bleed in at night. plan: Patient is brought in her home noninvasive ventilator with the over the mouth under the nose mask and will place her on these settings with 3 L bleed in tonight to see if she can tolerate this. Patient has significant anxiety and I will increase her BuSpar to 10 mg p.o. b.i.d.. 08/22/2025: Patient wore home noninvasive ventilator with the 100 over the mouth under the nose mask and said she wore this for a few hours and was able to get some sleep. Plan: Continue her home noninvasive ventilator with the AVAPS AE settings and an over the mouth under the nose mask as tolerated during the day p.r.n. and at night. Subjective Date/time seen: 08/22/25 11:14 Interval history: Patient was seen August 18, 2025, at 18:55, room 231 Her friend [facility], Isabela, is at the bedside, assists with the history. NEW: Teresa Levi is a 75-year-old woman with COPD [id number] in our clinic, sees Dr Nava, was admitted Jul 30 to , went home, did not use BiPAP at [facility]. She was admitted with increased shortness of breath, worsening balance in her wheelchair running into things causes gashes on her lower legs with trips to the ER. She banged up her left knee, left lateral leg, last admission she was on AVAPS, and although she was not wearing it, AVAPS would be a better option for her because of the indication, chronic hypercapneic respiraotry failure. She does not have obesity hypoventilation. She is using a hybrid mask at home, under the nose which is more comfortable comared to over the nose fidelina with her claustrophobia. recurrent hypercapnic respiratory failure, acute exacerbation of COPD, bilateral infiltrates consistent with pneumonia, dCHF, diuretics adjusted, and CKD, HTN, gout, lung cancer 10 yeas ago. She was here less than a month ago. She does not use BiPAP at home due to claustrophobia, takes alprazolam 0.5 mg HS to assist with sleep onset, also makes trying PAP easier, She uses O2 at home. At discharge, she was on be on O2 at 1 L, increase with exertion. She was not using her PAP machine at [facility], was sleeping in a recliner, turned O2 up when she felt short of breath. She has been falling frequently with injuries to lower legs, and has a large injury to the LUE after a tourniquet placed while in an ambulance. She had one of the gashes in her lower leg sewn together by Dr Donahue. She is on 2 L, sat is 93%.Admitted Aug 17, wbc 7.1 k with mild increase in eosinophils. She has had high eosinophils on at least 3 occasions, now 400 this admission. She was admitted July 30 through the , last month for an acute exacerbation of COPD, acute hypercapnic hypoxemic respiratory failure and right middle lobe pneumonia.She went home, did not use her NIV, slept in recliner, turne O2 higher than needed, was falling out of wheelchair and running into things, gashing her little legs. 08/21/2025: Overall patient has shortness of breath at rest, shortness of breath with any activity, she has cough and the phlegm gets stuck in her throat. When I enter the room she was on 2.5 L with saturation 99%. I decreased her 1 L nasal cannula her saturations were 92%. She is afebrile. White blood cell count 9.7, creatinine 1.27, BNP has increased from 1200 on 08/19/2025 to 1810 today. Patient still has difficulty tolerating the noninvasive ventilation and has panic attacks. BuSpar increased to 10 mg p.o. b.i.d.. Daliresp 250 added. 08/22/2025: Overall the patient feels the same. She has rest shortness of breath. She did sit up in the chair. She has the same cough and phlegm that is minimal. No hemoptysis. When I enter the room she was on 2 L nasal cannula saturation 99%. I 2 decreased her to 1 L nasal cannula her saturations were 98%. Patient states she has phlegm that she cannot expectorate. Patient wore home noninvasive ventilator with the 100 over the mouth under the nose mask and said she wore this for a few hours and was able to get some sleep. DATA * Date 08/01:48 am discharged :59 :06 a.m. pH 7.41 7.40 7.39 7.37 pCO2 60 50 63 67 pO2 83 58.5 79 66.8 HCO3 37.8 30.5 38 38 sat 96% 90% 95% 92% CarboxyHgb FiO2 40% 28% 32% 30% O2 delivery BiPAP IPAP 25 16 EPAP 8 7 cm 8 * 08/17/25, CXR : Cardiomediastinal silhouette normal size and configuration. Mild right basilar airspace disease persists. No acute bony abnormality. Osteopenia. IMPRESSION: Suspect mild persistent right basilar airspace disease. {THIS IS WHERE SHE HAD INFILTRATES in [place]} * 08/17/2025 white blood cell count 8.3 k with 4.5% eosinophils, - absolute eosinophil count 400 which is increased. Also had elevated eosinophils on June 29, 2023, 740 eosinophils, June 21, 2023 with 500 eosinophils. 07/31/25: Echo Summary 1. Technically suboptimal study due to poor sonographic images. 2. Definity contrast administered improved wall motion interpretation. 3. Left ventricular chamber dimension is moderately enlarged. 4. Left ventricular systolic function is moderately globally reduced, estimated at 40-45. 5. The left ventricular diastolic function is grade I diastolic dysfunction. 6. No pulmonary hypertension, estimated pulmonary arterial systolic pressure is 19 mmHg. Right Ventricle Right ventricular chamber dimension is normal. Right ventricular systolic function is normal. Left Atria Left atrial chamber dimension is normal. Right Atria Right atrial chamber dimension is normal. 07/31/25: EXAMINATION:CT diagnostic chest wo con INDICATION: Pneumonia COPD COMPARISON: None. FINDINGS: Patchy consolidative changes are developing in the medial segment of the right middle lobe. Mild scattered fibrotic and atelectatic appearing changes throughout the lower lobes bilaterally. Moderately severe centrilobular emphysematous changes especially in the upper lobes. No new nodules or masses seen. Heart and great vessels stable in size with no cardiomegaly or large pericardial effusion/bulky lymphadenopathy. Coronary artery calcification and/or stenting. 50% compression deformity of T6 similar to the previous exam. IMPRESSION: Small area of consolidation in the medial segment of the right middle lobe consistent with early pneumonia. Finding should be followed radiographically until clear. 01/29/25 - Overnight oximetry on noninvasive ventilator with 4 L bleed in. Recording duration 7 hours and 53 minutes. Basal saturation 97.5. Low saturation 94%. High saturation 99%. Time with saturation less than or equal to 88% was 0 minutes. Oxygen desaturation 0. 4 L provides adequate oxygenation. 11/06/23 - CXR - The lungs are clear, without evidence of focal consolidation or pleural effusion. Suspected COPD. Cardiomediastinal silhouette is within normal limits. Bones and soft tissues are unremarkable. 07/03/2023: Home O2 assessment: Rest room air saturations 83%. Rest nasal cannula 2 L saturation 87%. Rest nasal cannula 3 L saturation 88%. Rest nasal cannula 4 L saturation 91%. Exercise nasal cannula 4 L, saturations 88%. Exercise nasal cannula 5 L saturation 90%. Patient requires 4 L at rest and 5 with activity. 07/02/24: Patient wore her home noninvasive ventilator in the hospital, with an AVAPS-AE mode with a rate of 12, tidal volume 400, EPAP minimum 5, maximum EPAP 10, minimal pressure support 10, maximal pressure support 15, rise time of 3 with 4 L bleed in and did well.? Patient had an overnight oximetry with recording time of 7 hours and 31 minutes, average saturation 92%.? Low saturation 88%.? Time with saturation less than or equal to 88% was 1 minute, oxygen desaturation index 0.4.? Patient had a blood gas prior to removal of this machine with pH of 7.44/48/70.? These settings provide adequate oxygenation and ventilation.? 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 06/30/2023: EXAMINATION: CTA chest PE protocol ?INDICATION: Hypoxia. ?COMPARISON: Chest CT 08/12/2022 ?FINDINGS: There is severe emphysema. There is mild atelectasis bilaterally, worst in the lower lobes. No pleural effusion. The heart size is normal. There are coronary artery calcifications. No pericardial effusion. There is no pulmonary embolus. There is a gallstone in the gallbladder which is normal in size. There is a ventral hernia containing colon. There is kyphosis and moderate spondylosis of thoracic spine. There is a chronic burst fracture of T6. There is a chronic compression fracture of L1. ?IMPRESSION: ?1. No pulmonary embolus. ?2. Severe emphysema. ?11/28/2022 PFTs ??The test was performed and results interpreted in accordance with the 2019 and 2005 ATS/ERS Task Force guidelines respectively using the Global Lung Function Initiative-2012 reference equations. Patient demonstrated good effort and cooperation. Reproducibility criteria were met. The quality of the pre bronchodilator spirometry maneuver was Grade A and post bronchodilator spirometry maneuver was Grade A. ??Findings: ??Spirometry: ? There is decreased maximal expiratory airflow at all lung volumes with concave expiratory flow tracing.? The contour the inspiratory flow tracing is normal.? pre bronchodilator FVC is 1.39 L, 48% predicted.? The pre bronchodilator FEV1 is 0.59 L, 26% predicted.? The pre bronchodilator FEV1:? FVC ratio is 42%.? The post bronchodilator FVC is 1.50 L,? representing an 8% increase.? The post bronchodilator FEV1 is 0.63 L, representing a 6% increase.? The post bronchodilator FEV1:? FVC ratio is 42%.? ??Plethysmography:? The total lung capacity is 4.40 L, 85% predicted.? The functional residual capacity is 3.27 L, 110% predicted.? The residual volume is 3.01 L, 133% predicted.? ??Diffusing capacity:? The diffusing capacity unadjusted for hemoglobin and carboxyhemoglobin is 5.2, 25% predicted.? The diffusing capacity adjusted for alveolar volume is 2.58, 61% predicted. ??When compared to PFTs from [facility] on 06/20/2019 the post bronchodilator FVC has decreased from 2.10 L to 1.50 L.? The post bronchodilator FEV1 has decreased from 0.80 L to 0.63 L.? The total lung capacity is unchanged from 4.88 L to 4.40 L.? The functional residual capacity is unchanged from 3.71 L to 3.27 L.? The residual volume is unchanged from 3.24 L to 3.01 L.? The diffusing capacity unadjusted from hemoglobin and carboxyhemoglobin is unchanged from 5.6 to 5.2.? The diffusing capacity adjusted for alveolar volume is unchanged from 2.39 to 2.58. ??Impression:?There is a very severe obstructive abnormality without significant improvement after inhaling a single dose of albuterol.?The increase in residual volume is consistent with?air trapping?from an obstructive abnormality.? The diffusing capacity unadjusted for hemoglobin and carboxyhemoglobin is severely decreased and?remains mildly decreased when adjusted for alveolar volume. ??When compared to previous PFTs there has been a?greater than anticipated time dependent decrease in the FVC and FEV1?with no significant change in the total lung capacity, functional residual capacity, residual volume or DLCO. ?11/28/2022? ABG on 2 L nasal cannula pulse delivery: ? PH 7.42 / 56/47. ? Saturations were 83%.? Checked manually saturations were 84%. ?11/28/2022 ? Home O2 assessment:? Rest room air saturation 84%.? Rest nasal cannula 1 L saturation 86%, rest nasal cannula 2 L saturation 92%.? Exercise 2 L nasal cannula saturation 90%. ? These measurements were made with continuous flow nasal cannula.? I spoke with the facility environmental technician and they attempted to place the patient on 4 L pulse delivery nasal cannula and her saturations remained less than 88%.??The patient requires 2 L oxygen at rest and with exercise at continuous flow. ??? Collectively these results demonstrate progression of the patient's very severe obstructive abnormality consistent with GOLD grade 4 COPD? with chronic hypercarbic respiratory failure from her COPD and hypoxemic respiratory failure from her COPD. ? Patient has chronic hypercarbic respiratory failure from her COPD and would benefit from noninvasive ventilation. ? She would benefit from noninvasive ventilation to prevent further deterioration and subsequent hospitalizations. ? Previously the patient had been on BiPAP on 05/05/2022 and she said that she could not tolerate these pressures and she had claustrophobia.?? I talked to the patient about this and she is also had a stroke with decreased mobility of her right upper extremity and is unsure if she will be able to? initiate her machine and mask at home although she is willing to try. ??? I will initiate home noninvasive ventilation with an AVAPS-AE mode? with a set rate of auto, tidal volume 500, minimal inspiratory pressure 5, maximal expiratory pressure 15, minimal inspiratory pressure 6, maximal inspiratory pressure 25,? rise time 1.0 sec, and 2 L bleed in. These settings can be adjusted for patient comfort on initial set up. ??? The pulmonary function test coordinator has reached out to [facility] to see if this can be coordinated through them and the outpatient clinic will coordinate our efforts with the PFT lab. ?? 08/12/2022 EXAMINATION: CT diagnostic chest wo con ???INDICATION: SOB for 2 days. COPD. History of lung cancer. ???COMPARISON: 07/17/2022 portable AP chest ???02/28/2019 CTA chest ???FINDINGS: Heart size is within normal range. No pericardial or pleural effusion. ???There is extensive thoracic aortic and some great vessel calcifications in addition to prominent coronary artery calcifications. No thoracic aortic aneurys m. ???Normal size and attenuation of the thyroid gland. No hilar or mediastinal mass lesion or lymphadenopathy. ???Moderate to moderately severe emphysema and bilateral pulmonary hyperinflation. ???There is a chronic linear scarring in the right lower lobe and left lower lobe. There is another linear scar or discoid atelectasis in the right lower lobe since 02/28/2019. ???There is minimal atelectasis at the dependent lung bases, both lower lobes. ???Included portions of the adrenal glands are unremarkable. ???One or more ventral abdominal wall hernias. ???Multiple old healed right rib fractures. ???Moderate anterior wedge compression fracture deformity of T6. ???Degenerative disc disease of the lower cervical spine and degenerative spurring of the thoracic spine. ???No suspicious osteolytic or osteoblastic lesions are noted. ???IMPRESSION:? Moderate to moderately severe emphysema ???Mild discoid atelectasis and/or scarring in the lower lobes ???Minimal bilateral lower lobe dependent atelectasis ???Aortic, great vessel and coronary artery atherosclerosis ???06/05/2022 CXR EXAMINATION: XR chest 2V ?INDICATION: SOB,?COMPARISON: 05/19/2022, 05/07/2022 ?FINDINGS: There are small pleural effusions. There is no pneumothorax. There are minimal airspace opacities of the lung bases. The cardiomediastinal silhouette is normal. There is a chronic compression fracture of T6 without significant change. ?IMPRESSION: ?1. Small pleural effusions with minimal bibasilar airspace opacities, likely atelectasis. ???04/03/2022 ABG on 3 L 7.42/49/111 ???03/10/2022 ABG RA 7.42/50/44 ?06/20/2019:? I have PFT report from [facility]. ???Findings: ???Spirometry:? There is decreased maximal expiratory airflow at all lung volumes with concave expiratory flow tracing.? The contour of the inspiratory flow tracing is normal.? The pre bronchodilator FVC is 1.64 L, 64% predicted.? The pre bronchodilator FEV1 is 0.76 L, 37% predicted.? The pre bronchodilator FEV1:? FVC ratio is 47%.? The post bronchodilator FVC is 2.10 L, representing a 28% increase.? The post bronchodilator FEV1 is 0.80 L, representing a 5% increase.? The post bronchodilator FEV1:? FVC ratio is 38%. ???Plethysmography:? The total lung capacity is 4.88 L, 110% predicted.? The functional residual capacity is 3.71 L, 159% predicted.? The residual volume is 3.24 L, 185% predicted. ???Diffusing capacity:? The diffusing capacity unadjusted for hemoglobin and carboxyhemoglobin is 5.6, 28% predicted.? The diffusing capacity adjusted for alveolar volume is 2.39, 66% predicted. ?My?Impression: There is a severe obstructive abnormality with significant improvement after inhaling a single dose of albuterol. The increase in residual volume is consistent with air trapping from an obstructive abnormality.? Hyperinflation is present as demonstrated by the increase in functional residual capacity and is consistent with an obstructive abnormality. The diffusing capacity unadjusted for hemoglobin and carboxyhemoglobin is severely decreased and is mildly decreased when adjusted for alveolar volume. ???When compared to the spirometry on 03/03/2019 the pre bronchodilator FVC has increased from 1.05 L to 1.64 L. The pre bronchodilator FEV1 has increased from 0.47 L to 0.76 L. ?03/03/2019 I have an echocardiogram report from [facility] facility: ???Summary:? The calculated ejection fraction is 52.? Left ventricular diastolic function is abnormal, grade 1 impaired relaxation.? Right ventricular systolic function is normal.? No evidence of pericardial effusion.? A trace of tricuspid regurgitation normal RV size and function normal right atrial size. ???01/09/2019 echocardiogram report from [facility].? Summary:? The left ventricle size is normal.? The left ventricular systolic function is lower limits of normal with an estimated LV EF of 50-55%.? Left ventricular diastolic function is abnormal grade 1, impaired relaxation, right ventricular systolic pressure is 37, mild aortic valve sclerosis ?03/03/2019:? I have a spirometry report from [facility]. ??Spirometry:? There is decreased maximal expiratory airflow at all lung volumes with concave expiratory flow tracing.? The contour the inspiratory flow tracing is normal.? The FVC is 1.05 L, 36% predicted.? The FEV1 is 0.47 L, 20% predicted.? The FEV1:? FVC ratio is 45%. ???My impression:? There is a very severe obstructive abnormality. ?? ?01/09/2019:? CT angiogram chest report from [facility].? Impression: no CT evidence of pulmonary embolism.? Mosaic perfusion in the upper and lower lobes may represent small airways disease or peripheral airways disease or sequela of radiation therapy if applicable.? The left hilar and suprahilar mass seen in 2013 is no longer present. ? 09/22/2018:? I have a report CT scan of the chest from [facility] demonstrating no pulmonary embolism, mild to moderate emphysema small amount of post infectious residual, no lymphadenopathy no pleural effusions, no pericardial effusion, no pneumothorax. ?? 01/09/2019: ? Report from [facility] ???EXAMINATION:CTA, CHEST FOR PE ???CLINICAL INDICATION: ???68-year-old inpatient with increasing SOB bilateral hand??and leg swelling over the past 6 weeks.? Given history of CHF, COPD,??coronary artery disease and lung carcinoma.??COMPARISON:??CTA chest abdomen pelvis with contrast 01/28/2013 and FDG PET/CT 02/02/2013 ?FINDINGS: ?The study was technically adequate??No intraluminal filling defects, wall thickening, or thrombus is present in??the pulmonary arterial vascular tree to suggest pulmonary embolus ?Although there is no given history of whether this patient had radiation or??chemotherapy the large left hilar and suprahilar mass seen in 2012 is no??longer present.? Mild thickening within the left hilar region of the??previously seen mass.? No recurrent hilar mass or mediastinal or hilar??lymphadenopathy.? Subtle mosaic perfusion of the upper lobes and dependent??lower lobes may represent small airway disease or peripheral airway disease ???or could be sequela of radiation therapy.? Additionally, small bibasilar??effusions and bilateral enhancing lower lobe atelectasis probably??compressive atelectasis.? The mosaic perfusion in the lower lobes has??superimposed interlobar septal thickening and groundglass opacities which??is suggestive of development of pulmonary edema. ???Mild cardiomegaly due to biventricular prominence.? No pericard ial??effusion.? There is moderate hepatic venous reflux suggestive of a elevated??right heart pressures..? Normal caliber thoracic aorta.? No evidence of??aortic dissection. ???Included portions of the liver is homogeneous in density.? No definite??enhancing hepatic mass in the upper liver.? The spleen and adrenal glands??and tail of pancreas are unremarkable.? Stable wide neck supra umbilical?epigastric region ventral wall hernia containing nonentrapped nonobstructed?appearing loops of transverse colon unchanged since 2012.? This is only?partially included on this study. ???Bone window imaging fails to demonstrate pathologic bony abnormality.???Interval wedge compression deformity of T6. ?IMPRESSION: ???1. No CT evidence of pulmonary embolus ???2.? Mosaic perfusion in the upper and lower lobes may represent small ???airway disease or peripheral airway disease or sequela of radiation therapy?if applicable. ???3.? Concomitant findings of definite pulmonary edema bibasilar effusions??lower lobe atelectasis may represent CHF; there is always a possibility??this could represent malignant pleural effusions ???4.? Although there is no given history of bladder on this patient has?undergone radiation therapy or chemotherapy the left hilar and suprahilar?mass seen in 2013 is no longer present. ???5.? Wedge compression deformity T6 Since 2013 Review of Systems Constitutional: Constitutional: Reports no additional constitutional complaints Eyes: Eyes: Reports no additional eye complaints ENT: Reports system reviewed and no additional complaints, except as documented Cardiovascular: Cardiovascular: Reports no additional cardiovascular complaints Respiratory: Respiratory: Reports no additional respiratory complaints Gastrointestinal: Gastrointestinal: Reports no additional gastrointestinal complaints Musculoskeletal: Musculoskeletal: Reports no additional musculoskeletal complaints Neurologic: Reports system reviewed and no additional complaints, except as documented Psychiatric: Psychiatric: Reports no additional psychiatric complaints Endocrine: Endocrine: Reports no additional endocrine complaints Hematologic/Lymphatic: Hematologic/Lymphatic: Reports no additional hematologic/lymphatic complaints Allergic/Immunologic: Allergic/Immunologic: Reports no additional allergic/immunologic complaints Exam Const: General: cooperative, comfortable and no acute distress Orientation/consciousness: oriented to person, oriented to place and oriented to time HENMT: Head: normal to inspection Ears: hearing grossly normal bilaterally Eyes: General: appearance normal, both eyes and all related structures Neck: Neck: normal visual inspection Chest: Chest palpation & inspection: normal inspection of the chest Resp: Effort & Inspection: normal respiratory effort and able to speak in complete sentences Auscultation: no crackles, no rales, no rhonchi, wheezes and diminished lung sounds Other: Improved but a few as Expiratory wheezes persist Cardio: Jugular venous distension: no JVD GI: Inspection: normal to inspection Skin: General skin exam: normal color Neuro: General: oriented to person, oriented to place and oriented to time Extrem: General: normal to inspection and edema Other: Positive bilateral lower extremity edema. Psych: Appearance: grossly normal Objective Data Vital Signs Vital Signs: Vital Signs - 24 hr 08/21/25 11:18 08/21/25 12:00 08/21/25 12:00 Temperature 36.7 C Pulse Rate 72 98 96 Respiratory Rate 20 24 H Blood Pressure 141/61 H Pulse Oximetry 90 Oxygen Delivery Oxygen Flow Rate 08/21/25 13:09 08/21/25 14:00 08/21/25 14:28 Temperature Pulse Rate 178 H 89 183 H Respiratory Rate Blood Pressure Pulse Oximetry Oxygen Delivery Oxygen Flow Rate 08/21/25 15:10 08/21/25 20:49 08/21/25 20:49 Temperature Pulse Rate 84 84 84 Respiratory Rate 18 18 Blood Pressure Pulse Oximetry 94 Oxygen Delivery Nasal Cannula Oxygen Flow Rate 1 08/21/25 21:05 08/21/25 21:32 08/21/25 23:47 Temperature 36.4 C Pulse Rate 78 Respiratory Rate 20 15 Blood Pressure 133/63 Pulse Oximetry 99 Oxygen Delivery High Flow Nasal Cannula Autopap Oxygen Flow Rate 08/21/25 23:47 08/22/25 02:35 08/22/25 02:35 Temperature Pulse Rate Respiratory Rate Blood Pressure Pulse Oximetry 95 96 96 Oxygen Delivery CPAP Nasal Cannula Nasal Cannula Oxygen Flow Rate 3 2 08/22/25 05:47 08/22/25 09:38 Temperature 36.1 C L Pulse Rate 63 69 Respiratory Rate 18 18 Blood Pressure 119/66 Pulse Oximetry 99 Oxygen Delivery Oxygen Flow Rate Intake/Output Intake/Output: Intake & Output 08/19/25 08/20/25 08/21/25 08/22/25 23:59 23:59 23:59 23:59 Intake Total 2120 1360 1462 450 Output Total 780 1090 1000 550 Balance 1340 270 462 -100 Meds/Results Medications: Active Medications Generic Name Dose Route Start Last Admin Trade Name Freq PRN Reason Stop Dose Admin Acetaminophen 650 mg 08/17/25 10:40 Acetaminophen 325 Mg Tablet PO Q4H PRN Mild Pain (1-3) or Fever Hydrocodone Bitart/Acetaminophen 1 tab 08/17/25 10:40 08/21/25 20:39 Hydrocodone/Acetaminophen (*Crx) 5-325 Mg Tablet PO 1 tab Q4H PRN Administration Moderate Pain (4-6) Al Hydrox/Mg Hydrox/Simethicone 30 ml 08/17/25 10:40 Mag Hydrox/Al Hydrox/Simeth 30 Ml Udc PO QID PRN Dyspepsia Albuterol 2 puff 08/17/25 14:38 Albuterol Sulfate (*Sp) Aerosol 1 Puff INHALATION Q6HRT PRN Shortness Of Breath Or Wheezing Alprazolam 0.5 mg 08/17/25 14:38 08/22/25 08:38 Alprazolam (*Crx) 0.5 Mg Tablet PO 0.5 mg Q8H PRN Administration Anxiety Aspirin 81 mg 08/18/25 09:00 08/22/25 08:38 Aspirin 81 Mg Enteric Tablet PO 81 mg DAILY JESSIE Administration Atorvastatin Calcium 40 mg 08/17/25 21:00 08/21/25 20:30 Atorvastatin 40 Mg Tablet PO 40 mg HS JESSIE Administration Buspirone HCl 10 mg 08/21/25 21:00 08/22/25 08:38 Buspirone Hcl 10 Mg Tablet PO 10 mg Q12HR JESSIE Administration Docusate Sodium 100 mg 08/20/25 11:23 Docusate Sodium 100 Mg Capsule PO Q12H PRN Constipation Enoxaparin Sodium 40 mg 08/17/25 11:00 08/22/25 08:39 Enoxaparin 40 Mg/0.4 Ml Syringe SUB-Q 40 mg DAILY JESSIE Administration Escitalopram Oxalate 10 mg 08/18/25 09:00 08/22/25 08:38 Escitalopram Oxalate 10 Mg Tablet PO 10 mg DAILY JESSIE Administration Ferrous Sulfate 325 mg 08/17/25 17:00 08/22/25 08:38 Ferrous Sulfate 325 Mg Tablet BY MOUTH 325 mg TID JESSIE Administration Furosemide 40 mg 08/17/25 11:00 08/22/25 08:39 Furosemide Inj 40 Mg/4 Ml Vial IV PUSH 40 mg BID JESSIE Administration Gabapentin 300 mg 08/17/25 22:00 08/22/25 05:01 Gabapentin 300 Mg Capsule PO 300 mg Q8HR JESSIE Administration Guaifenesin 1,200 mg 08/21/25 21:00 08/22/25 08:39 Guaifenesin 12 Hr 600 Mg Tabcr PO 1,200 mg Q12HR JESSIE Administration Ceftriaxone Sodium 2 gm/ 100 mls @ 200 mls/hr 08/18/25 09:00 08/22/25 08:39 Sodium Chloride IVPB 08/23/25 09:29 100 mls/hr Q24H JESSIE Administration Levetiracetam 250 mg 08/17/25 21:00 08/22/25 08:38 Levetiracetam 250 Mg Tablet PO 250 mg Q12H JESSIE Administration Loratadine 5 mg 08/17/25 18:00 08/21/25 18:17 Loratadine 5 Mg Tablet PO 5 mg QPM JESSIE Administration Magnesium Hydroxide 30 ml 08/17/25 10:40 Magnesium Hydroxide Susp 30 Ml Udc PO DAILY PRN Constipation Melatonin 5 mg 08/17/25 21:00 08/21/25 20:30 Melatonin 5 Mg Tablet PO 5 mg HS JESSIE Administration Methylprednisolone Sodium Succinate 20 mg 08/21/25 13:00 08/22/25 08:40 Methylprednisolone Sod Succ 40 Mg Vial IV PUSH 20 mg QID JESSIE Administration Multivitamins Therapeutic 1 tablet 08/18/25 09:00 08/22/25 08:38 Multivitamins Therapeutic Tab (*Bkc) PO 1 tablet DAILY JESSIE Administration Ondansetron HCl 4 mg 08/17/25 10:40 Ondansetron Inj 4 Mg/2 Ml Vial IV PUSH Q6H PRN Nausea And Vomiting Pantoprazole Sodium 40 mg 08/18/25 09:00 08/22/25 08:38 Pantoprazole 40 Mg Tablet PO 40 mg QAM JESSIE Administration Potassium Chloride 20 meq 08/17/25 17:00 08/22/25 08:38 Potassium Chloride 20 Meq Er Tablet PO 20 meq BID JESSIE Administration Roflumilast 250 mcg 08/21/25 13:15 08/22/25 08:38 Roflumilast 250 Mcg Tablet PO 250 mcg DAILY JESSIE Administration Ropinirole HCl 1 mg 08/17/25 17:00 08/22/25 08:38 Ropinirole Hcl 1 Mg Tablet PO 1 mg TID JESSIE Administration Spironolactone 25 mg 08/18/25 09:00 08/22/25 08:38 Spironolactone 25 Mg Tablet PO 25 mg DAILY JESSIE Administration Radiology Results: ITS Impressions Chest X-Ray 08/17/25 07:42 IMPRESSION: 1. Suspect mild persistent right basilar airspace disease. Labs Labs: Laboratory Results - last 24 hr 08/21/25 04:25 NT-Pro-B Natriuret Pep 1810 H
--- NOTE | 2025-08-22 12:04 | P.PNIM_ITS ---
Assessment and Plan Assessment and Plan (1) Acute hypercapnic respiratory failure: Code(s): J96.02 - Acute respiratory failure with hypercapnia Status: Acute Assessment and Plan: Has history of gold grade 4, history of alpha-1 antitrypsin genotype mm * Appreciate pulmonology consultation and recommendations * Continue with supplemental O2 and BiPAP settings as recommended by pulmonology * Now on 2 liters oxygen which is her baseline * however still feels dyspneic (2) Acute exacerbation of chronic obstructive pulmonary disease: Code(s): J44.1 - Chronic obstructive pulmonary disease with (acute) exacerbation Status: Acute Assessment and Plan: Recently hospitalized and discharged, now having worsening symptoms. [place] to be due to poor compliance with noninvasive ventilation in overuse of supplemental O2 * As above, appreciate pulmonology recommendations * Continue with supplemental O2 per protocol * Continue IV Solu-Medrol, wean as tolerated * Continue with DuoNebs, expectorants, flutter valve, Symbicort * Pulmonology following (3) Tachycardia: Code(s): R00.0 - Tachycardia, unspecified Status: Acute Assessment and Plan: HR in the 150-170s. Appears to be in Afib. States Dr. Nava just suggested Hospice and she is having a lot of anxiety -Order EKG -Metoprolol tartrate 5 mg IV x1 -Xanax x1 (4) Bilateral pneumonia: Qualifiers: Lung location: lower lobe of lung Pneumonia type: due to unspecified organism Qualified Code(s): J18.9 - Pneumonia, unspecified organism Code(s): J18.9 - Pneumonia, unspecified organism Status: Acute Assessment and Plan: Repeat CXR 08/17/2025 shows persistent airspace disease * Continue ceftriaxone and azithromycin day #6 * Continue supportive care measures as above * Urine antigens negative for strep pneumonia and Legionella (5) Diastolic CHF: Qualifiers: Heart failure chronicity: unspecified Qualified Code(s): I50.30 - Unspecified diastolic (congestive) heart failure Code(s): I50.30 - Unspecified diastolic (congestive) heart failure Status: Chronic Assessment and Plan: echocardiogram shows 40-45% left ventricular diastolic dysfunction * Appreciate cardiology consultation and recommendation * Continue Lasix 40 mg IV b.i.d., plan to wean as tolerated once she demonstrates improvement * When she is off IV diuresis, she will need to be transitioned to p.o. bumetanide 1 mg b.i.d. her Cardiology recommendations as oral Lasix had not been helping improve her symptoms. Will continue spironolactone 25 mg daily * Fluid restriction 1.5 L per day. Weigh patient daily * Continue compression stockings and leg elevation * Needs outpatient follow-up with Dr. Meyers 2 weeks following discharge (6) Laceration: Status: Acute Assessment and Plan: Developed right knee laceration following fall * Received wound care in ED. Wound was irrigated. 6 sutures placed. * Will need suture removal 10-14 days following placement (7) CKD (chronic kidney disease) stage 3, GFR 30-59 ml/min: Qualifiers: Chronic kidney disease stage 3 subtype: unspecified whether 3a or 3b Qualified Code(s): N18.30 - Chronic kidney disease, stage 3 unspecified Code(s): N18.30 - Chronic kidney disease, stage 3 unspecified Status: Acute Assessment and Plan: Chronic * Slight elevation in creatinine today to 1.27, likely due to IV diuresis * Monitor BMP closely, hold Lasix if any further increase (8) Iron deficiency anemia: Code(s): D50.9 - Iron deficiency anemia, unspecified Status: Acute Assessment and Plan: H&H remaining stable * Monitor daily (9) Hypertension: Qualifiers: Hypertension type: primary hypertension Qualified Code(s): I10 - Essential (primary) hypertension Code(s): I10 - Essential (primary) hypertension Status: Chronic Assessment and Plan: Blood pressure stable, 136/67 today * Continue furosemide and spironolactone * Monitor BP trends (10) Weakness: Code(s): R53.1 - Weakness Status: Acute Assessment and Plan: Progressive weakening with more frequent falls * Continue PT/OT during admission Plan DVT prophylaxis on Sq Lovenox PT/OT Subjective Date/time seen: 08/22/25 12:04 Interval history: Comfortable at bedside Patient noted no change in symptoms Review of Systems Review of Systems: All systems reviewed & are unremarkable except as noted in HPI and below Exam Narrative: GENERAL: Comfortable, no acute distress HENMT: moist mucous membranes. Dentures in place. EYES: EOM intact b/l NECK: no lymphadenopathy RESPIRATORY: Scattered wheezing, labored breathing, supplemental oxygen 2L CARDIO: irregular rhythm, irregular rate GI: Abdomen distended SKIN/EXTREMITIES: no rashes, no edema, no redness or tenderness Const: General: comfortable HENMT: Face/Nose/Sinus: Normal nares present Mouth: Yes moist mucous membranes Eyes: General: appearance normal, both eyes and all related structures Pupils: Equal, round and reactive pupils present EOM: EOMs intact bilaterally Neck: Neck: supple Thyroid: thyroid normal Resp: Effort & Inspection: normal respiratory effort (on BiPap at this time. ) Auscultation: rhonchi left upper and right upper and diminished lung sounds bilateral in the lower lung cristina Cardio: Jugular venous distension: no JVD Rate: regular rate Rhythm: regular rhythm Heart sounds: S1 normal heart sound present and S2 normal heart sound present GI: Auscultation: normal bowel sounds : General: Yes bladder normal to palpation Bimanual exam- vagina & uterus: bladder normal to palpation Skin: General skin exam: erythema (to the bilateral lower extremities, worse on left than right), abrasion (left anterior knee), laceration and wounds noted (right knee, laceration with steristrip/suture.) Trauma: abrasion (left anterior knee) and laceration Wounds: wounds noted (right knee, laceration with steristrip/suture.) Neuro: Cranial nerves: Yes Equal, round and reactive pupils present Motor exam (neuro): Abnormal motor strength present (generalized weakness) Extrem: General: pedal edema bilaterally pitting and 1+ Psych: Mental Status: mental status grossly normal Affect: normal affect Objective Data Vital Signs Vital Signs: Vital Signs - 24 hr 08/21/25 13:09 08/21/25 14:00 08/21/25 14:28 Temperature Pulse Rate 178 H 89 183 H Respiratory Rate Blood Pressure Pulse Oximetry Oxygen Delivery Oxygen Flow Rate 08/21/25 15:10 08/21/25 20:49 08/21/25 20:49 Temperature Pulse Rate 84 84 84 Respiratory Rate 18 18 Blood Pressure Pulse Oximetry 94 Oxygen Delivery Nasal Cannula Oxygen Flow Rate 1 08/21/25 21:05 08/21/25 21:32 08/21/25 23:47 Temperature 97.6 F Pulse Rate 78 Respiratory Rate 20 15 Blood Pressure 133/63 Pulse Oximetry 99 Oxygen Delivery High Flow Nasal Cannula Autopap Oxygen Flow Rate 08/21/25 23:47 08/22/25 02:35 08/22/25 02:35 Temperature Pulse Rate Respiratory Rate Blood Pressure Pulse Oximetry 95 96 96 Oxygen Delivery CPAP Nasal Cannula Nasal Cannula Oxygen Flow Rate 3 2 08/22/25 05:47 08/22/25 09:38 Temperature 96.9 F L Pulse Rate 63 69 Respiratory Rate 18 18 Blood Pressure 119/66 Pulse Oximetry 99 Oxygen Delivery Oxygen Flow Rate Intake/Output Intake/Output: Intake & Output 08/19/25 08/20/25 08/21/25 08/22/25 23:59 23:59 23:59 23:59 Intake Total 2120 1360 1462 450 Output Total 780 1090 1000 550 Balance 1340 270 462 -100 Meds/Results Medications: Active Medications Generic Name Dose Route Start Last Admin Trade Name Freq PRN Reason Stop Dose Admin Acetaminophen 650 mg 08/17/25 10:40 Acetaminophen 325 Mg Tablet PO Q4H PRN Mild Pain (1-3) or Fever Hydrocodone Bitart/Acetaminophen 1 tab 08/17/25 10:40 08/21/25 20:39 Hydrocodone/Acetaminophen (*Crx) 5-325 Mg Tablet PO 1 tab Q4H PRN Administration Moderate Pain (4-6) Acetylcysteine 200 mg 08/22/25 14:00 Acetylcysteine 20% Inhal Soln 800 Mg/4 Ml Vial INHALATION Q6HRT JESSIE Al Hydrox/Mg Hydrox/Simethicone 30 ml 08/17/25 10:40 Mag Hydrox/Al Hydrox/Simeth 30 Ml Udc PO QID PRN Dyspepsia Albuterol 2 puff 08/17/25 14:38 Albuterol Sulfate (*Sp) Aerosol 1 Puff INHALATION Q6HRT PRN Shortness Of Breath Or Wheezing Albuterol/Ipratropium 3 ml 08/22/25 14:00 Ipratropium 0.5 Mg/Albuterol Sulfate 2.5 Mg (Base) Ampul.Neb 3 Ml INHALATION Q6HRT JESSIE Alprazolam 0.5 mg 08/17/25 14:38 08/22/25 08:38 Alprazolam (*Crx) 0.5 Mg Tablet PO 0.5 mg Q8H PRN Administration Anxiety Aspirin 81 mg 08/18/25 09:00 08/22/25 08:38 Aspirin 81 Mg Enteric Tablet PO 81 mg DAILY JESSIE Administration Atorvastatin Calcium 40 mg 08/17/25 21:00 08/21/25 20:30 Atorvastatin 40 Mg Tablet PO 40 mg HS JESSIE Administration Buspirone HCl 10 mg 08/21/25 21:00 08/22/25 08:38 Buspirone Hcl 10 Mg Tablet PO 10 mg Q12HR JESSIE Administration Docusate Sodium 100 mg 08/20/25 11:23 Docusate Sodium 100 Mg Capsule PO Q12H PRN Constipation Enoxaparin Sodium 40 mg 08/17/25 11:00 08/22/25 08:39 Enoxaparin 40 Mg/0.4 Ml Syringe SUB-Q 40 mg DAILY JESSIE Administration Escitalopram Oxalate 10 mg 08/18/25 09:00 08/22/25 08:38 Escitalopram Oxalate 10 Mg Tablet PO 10 mg DAILY JESSIE Administration Ferrous Sulfate 325 mg 08/17/25 17:00 08/22/25 08:38 Ferrous Sulfate 325 Mg Tablet BY MOUTH 325 mg TID JESSIE Administration Furosemide 40 mg 08/17/25 11:00 08/22/25 08:39 Furosemide Inj 40 Mg/4 Ml Vial IV PUSH 40 mg BID JESSIE Administration Gabapentin 300 mg 08/17/25 22:00 08/22/25 05:01 Gabapentin 300 Mg Capsule PO 300 mg Q8HR JESSIE Administration Guaifenesin 1,200 mg 08/21/25 21:00 08/22/25 08:39 Guaifenesin 12 Hr 600 Mg Tabcr PO 1,200 mg Q12HR JESSIE Administration Ceftriaxone Sodium 2 gm/ 100 mls @ 200 mls/hr 08/18/25 09:00 08/22/25 08:39 Sodium Chloride IVPB 08/23/25 09:29 100 mls/hr Q24H JESSIE Administration Levetiracetam 250 mg 08/17/25 21:00 08/22/25 08:38 Levetiracetam 250 Mg Tablet PO 250 mg Q12H JESSIE Administration Loratadine 5 mg 08/17/25 18:00 08/21/25 18:17 Loratadine 5 Mg Tablet PO 5 mg QPM JESSIE Administration Magnesium Hydroxide 30 ml 08/17/25 10:40 Magnesium Hydroxide Susp 30 Ml Udc PO DAILY PRN Constipation Melatonin 5 mg 08/17/25 21:00 08/21/25 20:30 Melatonin 5 Mg Tablet PO 5 mg HS JESSIE Administration Methylprednisolone Sodium Succinate 20 mg 08/21/25 13:00 08/22/25 08:40 Methylprednisolone Sod Succ 40 Mg Vial IV PUSH 20 mg QID JESSIE Administration Multivitamins Therapeutic 1 tablet 08/18/25 09:00 08/22/25 08:38 Multivitamins Therapeutic Tab (*Bkc) PO 1 tablet DAILY JESSIE Administration Ondansetron HCl 4 mg 08/17/25 10:40 Ondansetron Inj 4 Mg/2 Ml Vial IV PUSH Q6H PRN Nausea And Vomiting Pantoprazole Sodium 40 mg 08/18/25 09:00 08/22/25 08:38 Pantoprazole 40 Mg Tablet PO 40 mg QAM JESSIE Administration Potassium Chloride 20 meq 08/17/25 17:00 08/22/25 08:38 Potassium Chloride 20 Meq Er Tablet PO 20 meq BID JESSIE Administration Roflumilast 250 mcg 08/21/25 13:15 08/22/25 08:38 Roflumilast 250 Mcg Tablet PO 250 mcg DAILY JESSIE Administration Ropinirole HCl 1 mg 08/17/25 17:00 08/22/25 08:38 Ropinirole Hcl 1 Mg Tablet PO 1 mg TID JESSIE Administration Spironolactone 25 mg 08/18/25 09:00 08/22/25 08:38 Spironolactone 25 Mg Tablet PO 25 mg DAILY JESSIE Administration Radiology Results: ITS Impressions Chest X-Ray 08/17/25 07:42 IMPRESSION: 1. Suspect mild persistent right basilar airspace disease. Labs Labs: Laboratory Results - last 24 hr 08/21/25 04:25 NT-Pro-B Natriuret Pep 1810 H Quality VTE Prophylaxis VTE prophylaxis: pharmacologic ordered
[2025-08-22] MEDS: ACETYLCYSTEINE 20% INHAL SOLN 800 MG/4 ML VIAL 200 MG INHALATION ×2 (13:30→20:20)
[2025-08-22] MEDS: LORATADINE 5 MG TABLET PO (17:00)
[2025-08-22] MEDS: ONDANSETRON INJ 4 MG/2 ML VIAL IV PUSH (21:05)
[2025-08-22] MEDS: MELATONIN 5 MG TABLET PO (21:06)
[2025-08-22] MEDS: ATORVASTATIN 40 MG TABLET PO (21:06)
[2025-08-22] MEDS: HYDROcodone/acetaminophen (*CRX) 5-325 MG TABLET 1 TAB PO (23:56)
[2025-08-23] VITALS (17 sets, daily range): BP systolic 131–136; BP diastolic 54–61; PULSE 58–81; RESP 16–24; TEMP 36.4–36.8; O2SAT 91–99
[2025-08-23] MEDS: ACETYLCYSTEINE 20% INHAL SOLN 800 MG/4 ML VIAL 200 MG INHALATION ×4 (02:40→20:29)
[2025-08-23] MEDS: IPRATROPIUM 0.5 MG/ALBUTEROL SULFATE 2.5 MG (BASE) AMPUL.NEB 3 ML INHALATION ×4 (02:40→20:29)
[2025-08-23] MEDS: GABAPENTIN 300 MG CAPSULE PO ×3 (05:45→21:00)
[2025-08-23 06:09] LABS: Hematocrit 36.1 % (37.0-47.0); Hemoglobin 10.9 g/dL (12.0-15.0); Immature Granulocyte Percent A 3.6 % (0-0.5); Lymphocytes Absolute Auto 0.69 K/mm3 (0.9-3.2); Mean Corpuscular HGB Conc 30.2 g/dl (32-36); Mean Corpuscular Hemoglobin 28.6 pg (26-34); Mean Corpuscular Volume 94.8 fl (80-100); Nucleated Red Blood Cells Absolute Auto 0.000 K/mm3 (0.0-0.012); Nucleated Red Blood Cells Perc 0.0 % (0.0-0.2); Platelet Count Result 246 k/mm3 (150-375); Red Blood Count 3.81 M/mm3 (4.2-5.4); White Blood Count 8.5 K/mm3 (4.5-10.0)
[2025-08-23 06:34] LABS: Alanine Aminotransferase 21 U/L (6-35); Albumin Level 3.2 g/dL (3.5-5.1); Alkaline Phosphatase 64 U/L (38-126); Anion Gap -1 mmol/L (4-12); Aspartate Amino Transferase 21 U/L (14-36); Bilirubin,Total 0.4 mg/dL (0.2-1.3); Blood Urea Nitrogen 35 mg/dL (7-17); Calcium 8.7 mg/dL (8.4-10.2); Carbon Dioxide 37 mmol/L (22-30); Chloride 102 mmol/L (98-107); Estimated CRCL calculation 32 ml/min; Estimated Glomerular Filt Rate 43; Glucose 91 mg/dL (65-110); Magnesium 2.3 mg/dL (1.6-2.3); Potassium 4.1 mmol/L (3.4-5.0); Sodium 138 mmol/L (137-145); Total Protein 5.8 g/dL (6.3-8.2)
[2025-08-23 07:56] LABS: NT Pro B Type Natriuretic Pept 1560 pg/mL (19.9-100)
[2025-08-23 08:53] LABS: Iron 36 ug/dL (37-170)
[2025-08-23] MEDS: POTASSIUM CHLORIDE 20 MEQ ER TABLET PO ×2 (08:58→16:56)
[2025-08-23] MEDS: guaiFENesin 12 HR 600 MG TABCR 1200 MG PO ×2 (08:58→20:59)
[2025-08-23] MEDS: PANTOPRAZOLE 40 MG TABLET PO (08:58)
[2025-08-23] MEDS: SPIRONOLACTONE 25 MG TABLET PO (08:59)
[2025-08-23] MEDS: FERROUS SULFATE 325 MG TABLET BY MOUTH ×3 (08:59→16:56)
[2025-08-23] MEDS: ASPIRIN 81 MG ENTERIC TABLET PO (08:59)
[2025-08-23] MEDS: MULTIVITAMINS THERAPEUTIC TAB (*BKC) 1 TABLET PO (09:00)
[2025-08-23] MEDS: ESCITALOPRAM OXALATE 10 MG TABLET PO (09:00)
[2025-08-23] MEDS: ROFLUMILAST 250 MCG TABLET PO (09:00)
[2025-08-23] MEDS: HYDROcodone/acetaminophen (*CRX) 5-325 MG TABLET 1 TAB PO ×2 (09:01→21:00)
[2025-08-23 09:02] LABS: Percent Iron Saturation 13 % (20-50)
[2025-08-23] MEDS: cefTRIAXone 2 GM in SODIUM CHLORIDE 0.9% IV 100 ML 150 ML IVPB (09:03)
[2025-08-23] MEDS: ENOXAPARIN 40 MG/0.4 ML SYRINGE SUB-Q (09:03)
[2025-08-23] MEDS: FUROSEMIDE INJ 40 MG/4 ML VIAL IV PUSH ×2 (09:03→16:57)
[2025-08-23 09:34] LABS: Ferritin 24.20 ng/mL (11.1-264)
--- NOTE | 2025-08-23 09:59 | P.PNPL_ITS ---
Progress Note: A&P Assessment and Plan (1) COPD exacerbation: Code(s): J44.1 - Chronic obstructive pulmonary disease with (acute) exacerbation Status: Acute Assessment and Plan: GOLD grade 4 group E COPD Patient with tobacco use (35 PY, quit 2003), Alpha 1 anti trypsin genotype MM. PFTs 11/28/2022 with FEV1 0.59 L, 26%, no bronchodilator response, airtrapping, decreased DLCO when corrected for alveolar volume, severe apical panlobular emphysema on CT scan of the neck from 03/04/2019 and chest on 08/13/2022, hypoxic respiratory failure on 2 L NC rest and activity since 2020, hypercarbic respiratory failure with ABG on 2 L was 7.42/56/47 and started on noninvasive ventilation with 4 L bleed in on 12/2022. Unable to tolerate noninvasive ventilation due to mask discomfort despite multiple mask trials. Wheelchair bound after she had a stroke in 2013 with dyspnea on exertion with wheelchair transfers and pivots Echocardiogram from 06/06/2022 with LVEF 55-60, grade 1 diastolic dysfunction, Normal right ventricular size and function. Normal right atrial size. No tricuspid regurg to measure RVSP. Inpatient COPD exacerbation and pneumonia 09/15/2022. 09/15/2022 white blood cell count 18.8, eosinophils 1.3%=244/uL. 08/22/2022 white blood cell count 10.5, eosinophils 3.1% equals 326/uL. Last inpatient hospitalization 06/29/2023 (rhinoviral infection). 08/04/2025: Home O2 assessment: Rest room air saturation 88%. Rest nasal cannula 1 L saturation 92%. Exercise nasal cannula 1 L saturation 91%. Patient is nonambulatory and did exercises with the feet. Patient requires 1 L oxygen at rest and with activity. 08/20/25: Long standing advanced COPD, FEV1 much less than a liter in 2018, on Advair 230/21 and umeclidinium / Incruse 62.5 once a day; Isabela told me that her insurance is switching her to Spiriva on Sep 14, so she won't be able to take Incruse any longer. She has end stage COPD, and with increased eosinophils, she may benefit from Dupixent as add-on therapy. This is not for acute decompensations, only maintenance. This is not available in the [place] [facility] setting as it is for maintanence, not exacerbations. 08/21/2025: Overall patient has shortness of breath at rest, shortness of breath with any activity, she has cough and the phlegm gets stuck in her throat. When I enter the room she was on 2.5 L with saturation 99%. I decreased her 1 L nasal cannula her saturations were 92%. She is afebrile. White blood cell count 9.7, creatinine 1.27, BNP has increased from 1200 on 08/19/2020 5-1810 today. Patient still has difficulty tolerating the noninvasive ventilation and has panic attacks. Plan: patient continues to deteriorate and never recovered from her previous hospital discharge on 08/04/2025. I will treat for reversible causes for short ness of breath at rest. I have treating for COPD exacerbation, pneumonia and fluid overload. I will decrease her Solu-Medrol to 20 mg q.6 hours, I will continue DuoNebs q.i.d.. I will discontinue Advair while she is on systemic steroids and DuoNebs q.i.d. I will increase her guaifenesin to 1200 mg p.o. q.i.d.. Continue ceftriaxone and azithromycin, both day 5. Continue Lasix 40 IV b.i.d.. patient with multiple exacerbations and I will add Daliresp 250 q.day. Patient has end-stage COPD now with 2 admissions in the last 4 weeks. She never recovered and has continued deterioration. I have told the patient and her caregiver [facility] and that she may wish to consider gather information from a hospice team. 08/22/2025: Overall the patient feels the same. She has rest shortness of breath. She did sit up in the chair. She has the same cough and phlegm that is minimal. No hemoptysis. When I enter the room she was on 2 L nasal cannula sat uration 99%. I 2 decreased her to 1 L nasal cannula her saturations were 98%. Patient states she has phlegm that she cannot expectorate. Patient wore home noninvasive ventilator with the 100 over the mouth under the nose mask and said she wore this for a few hours and was able to get some sleep. Plan: continue to treat 1st possible COPD exacerbation. Continue Solu-Medrol 20 q.6, DuoNebs q.6, I will add Mucomyst as she has difficulty expectorating q.6. She has completed 5 days of azithromycin will continue ceftriaxone, day 6 of 7. She is on Lasix 40 IV b.i.d.. Continue Daliresp 250 q.day. 08/23/2025: Overall the patient tells me she is better today. She says she is 70% back to her baseline. She sat in the chair yesterday for 8 hours. She still has some shortness of breath sitting and with activity. She denies cough. She still is unable to expectorate but feels she has less phlegm overall. She has minimal epistaxis. She is afebrile. On 1 L nasal cannula saturations are 94%. White blood cell count 8.5, creatinine 1.23, BNP has improved from 1810 on 08/21/2025 to 1560 today. Plan: Today is day 7 of steroids and she has no wheezing and will discontinue systemic steroids as she has laceration on her right knee and hematoma on her left knee. I will add budesonide 500 mcg b.i.d.. Continue DuoNebs and Mucomyst q.6 hours. Today is day 7 of 7 of ceftriaxone. Will increase Daliresp to 500 q.day. she is on Lasix 40 IV b.i.d. and her BNP has improved. Discussed with Dr. Zacarias, will follow with you (2) Acute and chronic respiratory failure, unspecified whether with hypoxia or hypercapnia: Qualifiers: Respiratory failure complication: hypoxia and hypercapnia Qualified Code(s): J96.21 - Acute and chronic respiratory failure with hypoxia; J96.22 - Acute and chronic respiratory failure with hypercapnia Code(s): J96.20 - Acute and chronic respiratory failure, unspecified whether with hypoxia or hypercapnia Status: Acute Assessment and Plan: Acute and chronic respiratory failure, unspecified whether with hypoxia or hypercapnia Status: Acute Assessment and Plan: Worsening compared to discharge on Aug 04, anxiety contributed to panic, poor choices, not using NIV, over using O2, more falls with lower leg injuries treated at ER and Dr Donahue's office. She may be at end stage, however O2 requirement is low. She has low exerzize toelrance due to stroke, right hemiplegia. Does not appear to have a new pneumonia. Some of this is destabilized cardiac function, EF 40%, has diastolic an systolic dysfunction, and the large ventral hernia is not helping. 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 08/04/2025: Home O2 assessment: Rest room air saturation 88%. Rest nasal cannula 1 L saturation 92%. Exercise nasal cannula 1 L saturation 91%. Patient is nonambulatory and did exercises with the feet. Patient requires 1 L oxygen at rest and with activity. 08/21/25: patient tolerates noninvasive ventilation poorly. Last admission she did tolerate her home noninvasive ventilator through via [employer] with AVAPS AE settings rate of 14, tidal volume 500, EPAP minimum 5, EPAP maximum 15, pressure support minimum 10, pressure support maximum 25 with 2 L bleed in. last admission on 08/04/25: Patient was using and over the mouth under the nose mask And said that she slept for 3 hours and feels like this was greatly improved. Patient had an overnight oximetry on these settings with recording duration of 4 hours and 18 minutes, average saturation 93%, low saturation 82%, time with saturation less than or equal to 88% was 31 minutes. Oxygen humberto aturation index 8.9. Patient had ABG prior to removal with a pH of 7.40/50/59. Current AVAPS AE settings with under the nose over the mouth mask provide adequate ventilation. Overnight oximetry on 32% FiO2 on 08/01 provided adequate oxygenation and I will discharge her on 3 L bleed in at night. plan: Patient is brought in her home noninvasive ventilator with the over the mouth under the nose mask and will place her on these settings with 3 L bleed in tonight to see if she can tolerate this. Patient has significant anxiety and I will increase her BuSpar to 10 mg p.o. b.i.d.. 08/22/2025: Patient wore home noninvasive ventilator with the 100 over the mouth under the nose mask and said she wore this for a few hours and was able to get some sleep. Plan: Continue her home noninvasive ventilator with the AVAPS AE settings and an over the mouth under the nose mask as tolerated during the day p.r.n. and at night. Later in the day obtained a download from via [employer] from 07/20/2025 to 08/22/2025. Patient is on of vivo 45 machine with the AVAPS AE settings of: rate 14, tidal volume 500, minimum EPAP 5, maximum EPAP 15, minimum pressure support 10, maximum pressure support 20 and 3 L bleed in. Usage days greater than or equal to 4 hours was 6%. Total usage days 26%. Average usage hours is 2 hours and 53 minutes. Average EPAP 10. Average peak pressure 20. Average tidal volume 487. Average leak 75. AHI 14. I interpret this download as very poor compliance, high leak with high AHI and adequate tidal volume. 08/23/2025: Patient tells me she wore her home noninvasive ventilator last night with 3 L bleed in for the whole night. She says it was a little bit rough but she thinks she got some sleep because she does not remember being awake all night. At [facility] there is no assistance to help her put the mask on and we practiced and she was able to successfully put her over the mouth under the nose mask on, turn her machine on. She had a large leak and we adjusted the mask and she said this felt better and was giving her better tidal volumes. Plan: Patient will continue noninvasive ventilation with the AVAPS AE mode and settings as above. She is tolerating and over the mouth under the nose mask. I will obtain an overnight oximetry on these settings with 3 L bleed in and an ABG prior to removal. Subjective Date/time seen: 08/23/25 09:59 Interval history: Patient was seen August 18, 2025, at 18:55, room 231 Her friend [facility], Isabela, is at the bedside, assists with the history. NEW: Teresa Levi is a 75-year-old woman with COPD [id number] in our clinic, sees Dr Nava, was admitted Jul 30 to , went home, did not use BiPAP at [facility]. She was admitted with increased shortness of breath, worsening balance in her wheelchair running into things causes gashes on her lower legs with trips to the ER. She banged up her left knee, left lateral leg, last admission she was on AVAPS, and although she was not wearing it, AVAPS would be a better option for her because of the indication, chronic hypercapneic respiraotry failure. She does not have obesity hypoventilation. She is using a hybrid mask at home, under the nose which is more comfortable comared to over the nose fidelina with her claustrophobia. recurrent hypercapnic respiratory failure, acute exacerbation of COPD, bilateral infiltrates consistent with pneumonia, dCHF, diuretics adjusted, and CKD, HTN, gout, lung cancer 10 yeas ago. She was here less than a month ago. She does not use BiPAP at home due to claustrophobia, takes alprazolam 0.5 mg HS to assist with sleep onset, also makes trying PAP easier, She uses O2 at home. At discharge, she was on be on O2 at 1 L, increase with exertion. She was not using her PAP machine at [facility], was sleeping in a recliner, turned O2 up when she felt short of breath. She has been falling frequently with injuries to lower legs, and has a large injury to the LUE after a tourniquet placed while in an ambulance. She had one of the gashes in her lower leg sewn together by Dr Donahue. She is on 2 L, sat is 93%.Admitted Aug 17, wbc 7.1 k with mild increase in eosinophils. She has had high eosinophils on at least 3 occasions, now 400 this admission. She was admitted July 30 through the , last month for an acute exacerbation of COPD, acute hypercapnic hypoxemic respiratory failure and right middle lobe pneumonia.She went home, did not use her NIV, slept in recliner, turne O2 higher than needed, was falling out of wheelchair and running into things, gashing her little legs. 08/21/2025: Overall patient has shortness of breath at rest, shortness of breath with any activity, she has cough and the phlegm gets stuck in her throat. When I enter the room she was on 2.5 L with saturation 99%. I decreased her 1 L nasal cannula her saturations were 92%. She is afebrile. White blood cell count 9.7, creatinine 1.27, BNP has increased from 1200 on 08/19/2025 to 1810 today. Patient still has difficulty tolerating the noninvasive ventilation and has panic attacks. BuSpar increased to 10 mg p.o. b.i.d.. Daliresp 250 added. 08/22/2025: Overall the patient feels the same. She has rest shortness of breath. She did sit up in the chair. She has the same cough and phlegm that is minimal. No hemoptysis. When I enter the room she was on 2 L nasal cannula sat uration 99%. I 2 decreased her to 1 L nasal cannula her saturations were 98%. Patient states she has phlegm that she cannot expectorate. Patient wore home noninvasive ventilator with the 100 over the mouth under the nose mask and said she wore this for a few hours and was able to get some sleep. Later in the day obtained a download from [employer] from 07/20/2025 to 08/22/2025. Patient is on of vivo 45 machine with the AVAPS AE settings of: rate 14, tidal volume 500, minimum EPAP 5, maximum EPAP 15, minimum pressure support 10, maximum pressure support 20 and 3 L bleed in. Usage days greater than or equal to 4 hours was 6%. Total usage days 26%. Average usage hours is 2 hours and 53 minutes. Average EPAP 10. Average peak pressure 20. Average tidal volume 487. Average leak 75. AHI 14. I interpret this download as very poor compliance, high leak with high AHI and adequate tidal volume. 08/23/2025: Overall the patient tells me she is better today. She says she is 70% back to her baseline. She sat in the chair yesterday for 8 hours. She still has some shortness of breath sitting and with activity. She denies cough. She still is unable to expectorate but feels she has less phlegm overall. She has minimal epistaxis. She is afebrile. On 1 L nasal cannula saturations are 94%. White blood cell count 8.5, creatinine 1.23, BNP has improved from 1810 on 08/21/2025 to 1560 today. Patient tells me she wore her home noninvasive ventilator last night with 3 L bleed in for the whole night. She says it was a little bit rough but she thinks she got some sleep because she does not remember being awake all night. At assisted living there is no assistance to help her put the mask on and we practiced and she was able to successfully put her over the mouth under the nose mask on, turn her machine on. She had a large leak and we adjusted the mask and she said this felt better and was giving her better tidal volumes. DATA * Date 08/01:48 am discharged 258:59 55:06 a.m. pH 7.41 7.40 7.39 7.37 pCO2 60 50 63 67 pO2 83 58.5 79 66.8 HCO3 37.8 30.5 38 38 sat 96% 90% 95% 92% CarboxyHgb FiO2 40% 28% 32% 30% O2 delivery BiPAP IPAP 25 16 EPAP 8 7 cm 8 * 08/17/25, CXR : Cardiomediastinal silhouette normal size and configuration. Mild right basilar airspace disease persists. No acute bony abnormality. Osteopenia. IMPRESSION: Suspect mild persistent right basilar airspace disease. {THIS IS WHERE SHE HAD INFILTRATES in [place]} * 08/17/2025 white blood cell count 8.3 k with 4.5% eosinophils, - absolute eosinophil count 400 which is increased. Also had elevated eosinophils on June 29, 2023, 740 eosinophils, June 21, 2023 with 500 eosinophils. 07/31/25: Echo Summary 1. Technically suboptimal study due to poor sonographic images. 2. Definity contrast administered improved wall motion interpretation. 3. Left ventricular chamber dimension is moderately enlarged. 4. Left ventricular systolic function is moderately globally reduced, estimated at 40-45. 5. The left ventricular diastolic function is grade I diastolic dysfunction. 6. No pulmonary hypertension, estimated pulmonary arterial systolic pressure is 19 mmHg. Right Ventricle Right ventricular chamber dimension is normal. Right ventricular systolic function is normal. Left Atria Left atrial chamber dimension is normal. Right Atria Right atrial chamber dimension is normal. 07/31/25: EXAMINATION:CT diagnostic chest wo con INDICATION: Pneumonia COPD COMPARISON: None. FINDINGS: Patchy consolidative changes are developing in the medial segment of the right middle lobe. Mild scattered fibrotic and atelectatic appearing changes throughout the lower lobes bilaterally. Moderately severe centrilobular emphysematous changes especially in the upper lobes. No new nodules or masses seen. Heart and great vessels stable in size with no cardiomegaly or large pericardial effusion/bulky lymphadenopathy. Coronary artery calcification and/or stenting. 50% compression deformity of T6 similar to the previous exam. IMPRESSION: Small area of consolidation in the medial segment of the right middle lobe consistent with early pneumonia. Finding should be followed radiographically until clear. 01/29/25 - Overnight oximetry on noninvasive ventilator with 4 L bleed in. Recording duration 7 hours and 53 minutes. Basal saturation 97.5. Low saturation 94%. High saturation 99%. Time with saturation less than or equal to 88% was 0 minutes. Oxygen desaturation 0. 4 L provides adequate oxygenation. 11/06/23 - CXR - The lungs are clear, without evidence of focal consolidation or pleural effusion. Suspected COPD. Cardiomediastinal silhouette is within normal limits. Bones and soft tissues are unremarkable. 07/03/2023: Home O2 assessment: Rest room air saturations 83%. Rest nasal cannula 2 L saturation 87%. Rest nasal cannula 3 L saturation 88%. Rest nasal cannula 4 L saturation 91%. Exercise nasal cannula 4 L, saturations 88%. Exercise nasal cannula 5 L saturation 90%. Patient requires 4 L at rest and 5 with activity. 07/02/24: Patient wore her home noninvasive ventilator in the hospital, with an AVAPS-AE mode with a rate of 12, tidal volume 400, EPAP minimum 5, maximum EPAP 10, minimal pressure support 10, maximal pressure support 15, rise time of 3 with 4 L bleed in and did well.? Patient had an overnight oximetry with recording time of 7 hours and 31 minutes, average saturation 92%.? Low saturation 88%.? Time with saturation less than or equal to 88% was 1 minute, oxygen desaturation index 0.4.? Patient had a blood gas prior to removal of this machine with pH of 7.44/48/70.? These settings provide adequate oxygenation and ventilation.? 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 06/30/2023: EXAMINATION: CTA chest PE protocol ?INDICATION: Hypoxia. ?COMPARISON: Chest CT 08/12/2022 ?FINDINGS: There is severe emphysema. There is mild atelectasis bilaterally, worst in the lower lobes. No pleural effusion. The heart size is normal. There are coronary artery calcifications. No pericardial effusion. There is no pulmonary embolus. There is a gallstone in the gallbladder which is normal in size. There is a ventral hernia containing colon. There is kyphosis and moderate spondylosis of thoracic spine. There is a chronic burst fracture of T6. There is a chronic compression fracture of L1. ?IMPRESSION: ?1. No pulmonary embolus. ?2. Severe emphysema. ?11/28/2022 PFTs ??The test was performed and results interpreted in accordance with the 2019 and 2005 ATS/ERS Task Force guidelines respectively using the Global Lung Function Initiative-2012 reference equations. Patient demonstrated good effort and cooperation. Reproducibility criteria were met. The quality of the pre bronchodilator spirometry maneuver was Grade A and post bronchodilator spirometry maneuver was Grade A. ??Findings: ??Spirometry: ? There is decreased maximal expiratory airflow at all lung volumes with concave expiratory flow tracing.? The contour the inspiratory flow tracing is normal.? pre bronchodilator FVC is 1.39 L, 48% predicted.? The pre bronchodilator FEV1 is 0.59 L, 26% predicted.? The pre bronchodilator FEV1:? FVC ratio is 42%.? The post bronchodilator FVC is 1.50 L,? representing an 8% increase.? The post bronchodilator FEV1 is 0.63 L, representing a 6% increase.? The post bronchodilator FEV1:? FVC ratio is 42%.? ??Plethysmography:? The total lung capacity is 4.40 L, 85% predicted.? The functional residual capacity is 3.27 L, 110% predicted.? The residual volume is 3.01 L, 133% predicted.? ??Diffusing capacity:? The diffusing capacity unadjusted for hemoglobin and carboxyhemoglobin is 5.2, 25% predicted.? The diffusing capacity adjusted for alveolar volume is 2.58, 61% predicted. ??When compared to PFTs from [facility] on 06/20/2019 the post bronchodilator FVC has decreased from 2.10 L to 1.50 L.? The post bronchodilator FEV1 has decreased from 0.80 L to 0.63 L.? The total lung capacity is unchanged from 4.88 L to 4.40 L.? The functional residual capacity is unchanged from 3.71 L to 3.27 L.? The residual volume is unchanged from 3.24 L to 3.01 L.? The diffusing capacity unadjusted from hemoglobin and carboxyhemoglobin is unchanged from 5.6 to 5.2.? The diffusing capacity adjusted for alveolar volume is unchanged from 2.39 to 2.58. ??Impression:?There is a very severe obstructive abnormality without significant improvement after inhaling a single dose of albuterol.?The increase in residual volume is consistent with?air trapping?from an obstructive abnormality.? The diffusing capacity unadjusted for hemoglobin and carboxyhemoglobin is severely decreased and?remains mildly decreased when adjusted for alveolar volume. ??When compared to previous PFTs there has been a?greater than anticipated time dependent decrease in the FVC and FEV1?with no significant change in the total lung capacity, functional residual capacity, residual volume or DLCO. ?11/28/2022? ABG on 2 L nasal cannula pulse delivery: ? PH 7.42 / 56/47. ? Saturations were 83%.? Checked manually saturations were 84%. ?11/28/2022 ? Home O2 assessment:? Rest room air saturation 84%.? Rest nasal cannula 1 L saturation 86%, rest nasal cannula 2 L saturation 92%.? Exercise 2 L nasal cannula saturation 90%. ? These measurements were made with continuous flow nasal cannula.? I spoke with the cardiopulmonary technician and eeg tech and they attempted to place the patient on 4 L pulse delivery nasal cannula and her saturations remained less than 88%.??The patient requires 2 L oxygen at rest and with exercise at continuous flow. ??? Collectively these results demonstrate progression of the patient's very severe obstructive abnormality consistent with GOLD grade 4 COPD? with chronic hypercarbic respiratory failure from her COPD and hypoxemic respiratory failure from her COPD. ? Patient has chronic hypercarbic respiratory failure from her COPD and would benefit from noninvasive ventilation. ? She would benefit from noninvasive ventilation to prevent further deterioration and subsequent hospitalizations. ? Previously the patient had been on BiPAP on 05/05/2022 and she said that she could not tolerate these pressures and she had claustrophobia.?? I talked to the patient about this and she is also had a stroke with decreased mobility of her right upper extremity and is unsure if she will be able to? initiate her machine and mask at home although she is willing to try. ??? I will initiate home noninvasive ventilation with an AVAPS-AE mode? with a set rate of auto, tidal volume 500, minimal inspiratory pressure 5, maximal expiratory pressure 15, minimal inspiratory pressure 6, maximal inspiratory pressure 25,? rise time 1.0 sec, and 2 L bleed in. These settings can be adjusted for patient comfort on initial set up. ??? The pulmonary function test coordinator has reached out to [employer] to see if this can be coordinated through them and the outpatient clinic will coordinate our efforts with the PFT lab. ?? 08/12/2022 EXAMINATION: CT diagnostic chest wo con ???INDICATION: SOB for 2 days. COPD. History of lung cancer. ???COMPARISON: 07/17/2022 portable AP chest ???02/28/2019 CTA chest ???FINDINGS: Heart size is within normal range. No pericardial or pleural effusion. ???There is extensive thoracic aortic and some great vessel calcifications in addition to prominent coronary artery calcifications. No thoracic aortic aneurysm. ???Normal size and attenuation of the thyroid gland. No hilar or mediastinal mass lesion or lymphadenopathy. ???Moderate to moderately severe emphysema and bilateral pulmonary hyperinflation. ???There is a chronic linear scarring in the right lower lobe and left lower lobe. There is another linear scar or discoid atelectasis in the right lower lobe since 02/28/2019. ???There is minimal atelectasis at the dependent lung bases, both lower lobes. ???Included portions of the adrenal glands are unremarkable. ???One or more ventral abdominal wall hernias. ???Multiple old healed right rib fractures. ???Moderate anterior wedge compression fracture deformity of T6. ???Degenerative disc disease of the lower cervical spine and degenerative spurring of the thoracic spine. ???No suspicious osteolytic or osteoblastic lesions are noted. ???IMPRESSION:? Moderate to moderately severe emphysema ???Mild discoid atelectasis and/or scarring in the lower lobes ???Minimal bilateral lower lobe dependent atelectasis ???Aortic, great vessel and coronary artery atherosclerosis ???06/05/2022 CXR EXAMINATION: XR chest 2V ?INDICATION: SOB,?COMPARISON: 05/19/2022, 05/07/2022 ?FINDINGS: There are small pleural effusions. There is no pneumothorax. There are minimal airspace opacities of the lung bases. The cardiomediastinal silhouette is normal. There is a chronic compression fracture of T6 without significant change. ?IMPRESSION: ?1. Small pleural effusions with minimal bibasilar airspace opacities, likely atelectasis. ???04/03/2022 ABG on 3 L 7.42/49/111 ???03/10/2022 ABG RA 7.42/50/44 ?06/20/2019:? I have PFT report from [facility]. ???Findings: ???Spirometry:? There is decreased maximal expiratory airflow at all lung volumes with concave expiratory flow tracing.? The contour of the inspiratory flow tracing is normal.? The pre bronchodilator FVC is 1.64 L, 64% predicted.? The pre bronchodilator FEV1 is 0.76 L, 37% predicted.? The pre bronchodilator FEV1:? FVC ratio is 47%.? The post bronchodilator FVC is 2.10 L, representing a 28% increase.? The post bronchodilator FEV1 is 0.80 L, representing a 5% increase.? The post bronchodilator FEV1:? FVC ratio is 38%. ???Plethysmography:? The total lung capacity is 4.88 L, 110% predicted.? The functional residual capacity is 3.71 L, 159% predicted.? The residual volume is 3.24 L, 185% predicted. ???Diffusing capacity:? The diffusing capacity unadjusted for hemoglobin and carboxyhemoglobin is 5.6, 28% predicted.? The diffusing capacity adjusted for alveolar volume is 2.39, 66% predicted. ?My?Impression: There is a severe obstructive abnormality with significant improvement after inhaling a single dose of albuterol. The increase in residual volume is consistent with air trapping from an obstructive abnormality.? Hyperinflation is present as demonstrated by the increase in functional residual capacity and is consistent with an obstructive abnormality. The diffusing capacity unadjusted for hemoglobin and carboxyhemoglobin is severely decreased and is mildly decreased when adjusted for alveolar volume. ???When compared to the spirometry on 03/03/2019 the pre bronchodilator FVC has increased from 1.05 L to 1.64 L. The pre bronchodilator FEV1 has increased from 0.47 L to 0.76 L. ?03/03/2019 I have an echocardiogram report from [facility] [place]: ???Summary:? The calculated ejection fraction is 52.? Left ventricular diastolic function is abnormal, grade 1 impaired relaxation.? Right ventricular systolic function is normal.? No evidence of pericardial effusion.? A trace of tricuspid regurgitation normal RV size and function normal right atrial size. ???01/09/2019 echocardiogram report from [facility].? Summary:? The left ventricle size is normal.? The left ventricular systolic function is lower limits of normal with an estimated LV EF of 50-55%.? Left ventricular diastolic function is abnormal grade 1, impaired relaxation, right ventricular systolic pressure is 37, mild aortic valve sclerosis ?03/03/2019:? I have a spirometry report from [facility]. ??Spirometry:? There is decreased maximal expiratory airflow at all lung volumes with concave expiratory flow tracing.? The contour the inspiratory flow tracing is normal.? The FVC is 1.05 L, 36% predicted.? The FEV1 is 0.47 L, 20% predicted.? The FEV1:? FVC ratio is 45%. ???My impression:? There is a very severe obstructive abnormality. ?? ?01/09/2019:? CT angiogram chest report from [facility].? Impression: no CT evidence of pulmonary embolism.? Mosaic perfusion in the upper and lower lobes may represent small airways disease or peripheral airways disease or sequela of radiation therapy if applicable.? The left hilar and suprahilar mass seen in 2012 is no longer present. ? 09/22/2018:? I have a report CT scan of the chest from [facility] demonstrating no pulmonary embolism, mild to moderate emphysema small amount of post infectious residual, no lymphadenopathy no pleural effusions, no pericardial effusion, no pneumothorax. ?? 01/09/2019: ? Report from [facility] ???EXAMINATION:CTA, CHEST FOR PE ???CLINICAL INDICATION: ???68-year-old inpatient with increasing SOB bilateral hand??and leg swelling over the past 6 weeks.? Given history of CHF, COPD,??coronary artery disease and lung carcinoma.??COMPARISON:??CTA chest abdomen pelvis with contrast 01/28/2013 and FDG PET/CT 02/02/2013 ?FINDINGS: ?The study was technically adequate??No intraluminal filling defects, wall thickening, or thrombus is present in??the pulmonary arterial vascular tree to suggest pulmonary embolus ?Although there is no given history of whether this patient had radiation or??chemotherapy the large left hilar and suprahilar mass seen in 2012 is no??longer present.? Mild thickening within the left hilar region of the??previously seen mass.? No recurrent hilar mass or mediastinal or hilar??lymphadenopathy.? Subtle mosaic perfusion of the upper lobes and dependent??lower lobes may represent small airway disease or peripheral airway disease ???or could be sequela of radiation therapy.? Additionally, small bibasilar??effusions and bilateral enhancing lower lobe atelectasis probably??compressive atelectasis.? The mosaic perfusion in the lower lobes has ??superimposed interlobar septal thickening and groundglass opacities which??is suggestive of development of pulmonary edema. ???Mild cardiomegaly due to biventricular prominence.? No pericardial??e ffusion.? There is moderate hepatic venous reflux suggestive of a elevated??right heart pressures..? Normal caliber thoracic aorta.? No evidence of??aortic dissection. ???Included portions of the liver is homogeneous in density.? No definite??enhancing hepatic mass in the upper liver.? The spleen and adrenal glands??and tail of pancreas are unremarkable.? Stable wide neck supra umbilical?epigastric region ventral wall hernia containing nonentrapped nonobstructed?appearing loops of transverse colon unchanged since 2013.? This is only?partially included on this study. ???Bone window imaging fails to demonstrate pathologic bony abnormality.???Interval wedge compression deformity of T6. ?IMPRESSION: ???1. No CT evidence of pulmonary embolus ???2.? Mosaic perfusion in the upper and lower lobes may represent small ???airway disease or peripheral airway disease or sequela of radiation therapy?if applicable. ???3.? Concomitant findings of definite pulmonary edema bibasilar eff usions??lower lobe atelectasis may represent CHF; there is always a possibility??this could represent malignant pleural effusions ???4.? Although there is no given history of bladder on this patient has?undergone radiation therapy or chemotherapy the left hilar and suprahilar?mass seen in 2013 is no longer present. ???5.? Wedge compression deformity T6 Since 2013 Review of Systems Constitutional: Constitutional: Reports no additional constitutional complaints Eyes: Eyes: Reports no additional eye complaints ENT: Reports system reviewed and no additional complaints, except as documented Cardiovascular: Cardiovascular: Reports no additional cardiovascular complaints Respiratory: Respiratory: Reports no additional respiratory complaints Gastrointestinal: Gastrointestinal: Reports no additional gastrointestinal complaints Musculoskeletal: Musculoskeletal: Reports no additional musculoskeletal complaints Neurologic: Reports system reviewed and no additional complaints, except as documented Psychiatric: Psychiatric: Reports no additional psychiatric complaints Endocrine: Endocrine: Reports no additional endocrine complaints Hematologic/Lymphatic: Hematologic/Lymphatic: Reports no additional hematologic/lymphatic complaints Allergic/Immunologic: Allergic/Immunologic: Reports no additional allergic/immunologic complaints Exam Const: General: cooperative, comfortable and no acute distress Orientation/consciousness: oriented to person, oriented to place and oriented to time HENMT: Head: normal to inspection Ears: hearing grossly normal bilaterally Eyes: General: appearance normal, both eyes and all related structures Neck: Neck: normal visual inspection Chest: Chest palpation & inspection: normal inspection of the chest Resp: Effort & Inspection: normal respiratory effort and able to speak in complete sentences Auscultation: no crackles, no rales, no rhonchi, no wheezes and diminished lung sounds Other: No wheezes Cardio: Jugular venous distension: no JVD GI: Inspection: normal to inspection Skin: General skin exam: normal color Neuro: General: oriented to person, oriented to place and oriented to time Extrem: General: normal to inspection and edema Other: Positive bilateral lower extremity edema. right knee area with Steri-Strips and sutures with no drainage. Left knee has a 3 cm fluid collection medial and below the knee joint that is tender with no drainage. Psych: Appearance: grossly normal Objective Data Vital Signs Vital Signs: Vital Signs - 24 hr 08/22/25 13:30 08/22/25 13:32 08/22/25 13:34 Temperature Pulse Rate 76 Respiratory Rate 18 Blood Pressure Pulse Oximetry 96 96 Oxygen Delivery Nasal Cannula Nasal Cannula Oxygen Flow Rate 1 08/22/25 13:42 08/22/25 14:00 08/22/25 20:00 Temperature 36.6 C Pulse Rate 73 79 Respiratory Rate 20 16 Blood Pressure 116/58 L Pulse Oximetry 99 98 Oxygen Delivery CPAP Oxygen Flow Rate 08/22/25 20:25 08/22/25 20:25 08/22/25 20:40 Temperature Pulse Rate 72 76 Respiratory Rate 20 20 Blood Pressure Pulse Oximetry 95 Oxygen Delivery Nasal Cannula Oxygen Flow Rate 1 08/22/25 22:00 08/22/25 22:55 08/23/25 02:35 Temperature 36.4 C Pulse Rate 64 70 59 L Respiratory Rate 17 Blood Pressure 123/62 Pulse Oximetry 94 95 91 Oxygen Delivery Oxygen Flow Rate 08/23/25 02:42 08/23/25 02:55 08/23/25 04:53 Temperature 36.4 C L Pulse Rate 59 L 62 58 L Respiratory Rate 18 18 16 Blood Pressure 136/61 Pulse Oximetry 98 Oxygen Delivery Oxygen Flow Rate 08/23/25 07:36 08/23/25 07:36 08/23/25 07:45 Temperature Pulse Rate 59 L 60 Respiratory Rate 16 20 Blood Pressure Pulse Oximetry 99 Oxygen Delivery Nasal Cannula Oxygen Flow Rate 1 Intake/Output Intake/Output: Intake & Output 08/20/25 08/21/25 08/22/25 08/23/25 23:59 23:59 23:59 23:59 Intake Total 1360 1462 2044 250 Output Total 1090 1000 1550 Balance 270 462 494 250 Meds/Results Medications: Active Medications Generic Name Dose Route Start Last Admin Trade Name Freq PRN Reason Stop Dose Admin Acetaminophen 650 mg 08/17/25 10:40 Acetaminophen 325 Mg Tablet PO Q4H PRN Mild Pain (1-3) or Fever Hydrocodone Bitart/Acetaminophen 1 tab 08/17/25 10:40 08/23/25 09:01 Hydrocodone/Acetaminophen (*Crx) 5-325 Mg Tablet PO 1 tab Q4H PRN Administration Moderate Pain (4-6) Acetylcysteine 200 mg 08/22/25 14:00 08/23/25 07:33 Acetylcysteine 20% Inhal Soln 800 Mg/4 Ml Vial INHALATION 200 mg Q6HRT JESSIE Administration Al Hydrox/Mg Hydrox/Simethicone 30 ml 08/17/25 10:40 Mag Hydrox/Al Hydrox/Simeth 30 Ml Udc PO QID PRN Dyspepsia Albuterol 2 puff 08/17/25 14:38 Albuterol Sulfate (*Sp) Aerosol 1 Puff INHALATION Q6HRT PRN Shortness Of Breath Or Wheezing Albuterol/Ipratropium 3 ml 08/22/25 14:00 08/23/25 07:33 Ipratropium 0.5 Mg/Albuterol Sulfate 2.5 Mg (Base) Ampul.Neb 3 Ml INHALATION 3 ml Q6HRT JESSIE Administration Alprazolam 0.5 mg 08/17/25 14:38 08/22/25 08:38 Alprazolam (*Crx) 0.5 Mg Tablet PO 0.5 mg Q8H PRN Administration Anxiety Aspirin 81 mg 08/18/25 09:00 08/23/25 08:59 Aspirin 81 Mg Enteric Tablet PO 81 mg DAILY JESSIE Administration Atorvastatin Calcium 40 mg 08/17/25 21:00 08/22/25 21:06 Atorvastatin 40 Mg Tablet PO 40 mg HS JESSIE Administration Budesonide 0.5 mg 08/23/25 10:00 Budesonide Respule Neb 0.5 Mg/2 Ml Amp INHALATION Q12HRT JESSIE Buspirone HCl 10 mg 08/21/25 21:00 08/23/25 08:59 Buspirone Hcl 10 Mg Tablet PO 10 mg Q12HR JESSIE Administration Docusate Sodium 100 mg 08/20/25 11:23 Docusate Sodium 100 Mg Capsule PO Q12H PRN Constipation Enoxaparin Sodium 40 mg 08/17/25 11:00 08/23/25 09:03 Enoxaparin 40 Mg/0.4 Ml Syringe SUB-Q 40 mg DAILY JESSIE Administration Escitalopram Oxalate 10 mg 08/18/25 09:00 08/23/25 09:00 Escitalopram Oxalate 10 Mg Tablet PO 10 mg DAILY JESSIE Administration Ferrous Sulfate 325 mg 08/17/25 17:00 08/23/25 08:59 Ferrous Sulfate 325 Mg Tablet BY MOUTH 325 mg TID JESSIE Administration Furosemide 40 mg 08/17/25 11:00 08/23/25 09:03 Furosemide Inj 40 Mg/4 Ml Vial IV PUSH 40 mg BID JESSIE Administration Gabapentin 300 mg 08/17/25 22:00 08/23/25 05:45 Gabapentin 300 Mg Capsule PO 300 mg Q8HR JESSIE Administration Guaifenesin 1,200 mg 08/21/25 21:00 08/23/25 08:58 Guaifenesin 12 Hr 600 Mg Tabcr PO 1,200 mg Q12HR JESSIE Administration Levetiracetam 250 mg 08/17/25 21:00 08/23/25 08:59 Levetiracetam 250 Mg Tablet PO 250 mg Q12H JESSIE Administration Loratadine 5 mg 08/17/25 18:00 08/22/25 17:00 Loratadine 5 Mg Tablet PO 5 mg QPM JESSIE Administration Magnesium Hydroxide 30 ml 08/17/25 10:40 Magnesium Hydroxide Susp 30 Ml Udc PO DAILY PRN Constipation Melatonin 5 mg 08/17/25 21:00 08/22/25 21:06 Melatonin 5 Mg Tablet PO 5 mg HS JESSIE Administration Multivitamins Therapeutic 1 tablet 08/18/25 09:00 08/23/25 09:00 Multivitamins Therapeutic Tab (*Bkc) PO 1 tablet DAILY JESSIE Administration Ondansetron HCl 4 mg 08/17/25 10:40 08/22/25 21:05 Ondansetron Inj 4 Mg/2 Ml Vial IV PUSH 4 mg Q6H PRN Administration Nausea And Vomiting Pantoprazole Sodium 40 mg 08/18/25 09:00 08/23/25 08:58 Pantoprazole 40 Mg Tablet PO 40 mg QAM JESSIE Administration Potassium Chloride 20 meq 08/17/25 17:00 08/23/25 08:58 Potassium Chloride 20 Meq Er Tablet PO 20 meq BID JESSIE Administration Roflumilast 500 mcg 08/24/25 09:00 Roflumilast 500 Mcg Tablet PO DAILY JESSIE Ropinirole HCl 1 mg 08/17/25 17:00 08/23/25 08:59 Ropinirole Hcl 1 Mg Tablet PO 1 mg TID JESSIE Administration Spironolactone 25 mg 08/18/25 09:00 08/23/25 08:59 Spironolactone 25 Mg Tablet PO 25 mg DAILY JESSIE Administration Radiology Results: ITS Impressions Chest X-Ray 08/17/25 07:42 IMPRESSION: 1. Suspect mild persistent right basilar airspace disease. Labs Labs: Laboratory Results - last 24 hr 08/23/25 08/23/25 05:29 05:32 WBC 8.5 RBC 3.81 L Hgb 10.9 L Hct 36.1 L MCV 94.8 MCH 28.6 MCHC 30.2 L RDW 14.7 H Plt Count 246 MPV 10.2 Immature Gran % (Auto) 3.6 H Neut % (Auto) 81.0 H Lymph % (Auto) 8.1 L [place] % (Auto) 6.8 Eos % (Auto) 0.0 Baso % (Auto) 0.5 Lymph # (Auto) 0.69 L [place] # (Auto) 0.6 Eos # (Auto) 0.0 Baso # (Auto) 0.0 Abs Immat Gran (auto) 0.31 H Absolute Neuts (auto) 6.9 H Absolute Nucleated RBC 0.000 Nucleated RBC % 0.0 Sodium 138 Potassium 4.1 Chloride 102 Carbon Dioxide 37 H Anion Gap -1 L BUN 35 H Creatinine 1.23 H Estim Creat Clear Calc 32 Estimated GFR 43 L Glucose 91 Calcium 8.7 Magnesium 2.3 Iron 36 L TIBC 272 % Saturation 13 L Ferritin 24.20 Total Bilirubin 0.4 AST 21 ALT 21 Alkaline Phosphatase 64 NT-Pro-B Natriuret Pep 1560 H Total Protein 5.8 L Albumin 3.2 L
[2025-08-23] MEDS: BUDESONIDE RESPULE NEB 0.5 MG/2 ML AMP INHALATION ×2 (10:07→20:29)
--- NOTE | 2025-08-23 10:44 | P.PNIM_ITS ---
Assessment and Plan Assessment and Plan (1) Acute hypercapnic respiratory failure: Code(s): J96.02 - Acute respiratory failure with hypercapnia Status: Acute Assessment and Plan: Has history of gold grade 4, history of alpha-1 antitrypsin genotype mm * Appreciate pulmonology consultation and recommendations * Continue with supplemental O2 and BiPAP settings as recommended by pulmonology * Now on 2 liters oxygen which is her baseline * noted dyspnea has mostly resolved * Continue Prednisone, bronchodilators and buspar * Discussed with Dr Nava from Pulmonology who recommended overnight oximetry * will perform overnight oximetry (2) Acute exacerbation of chronic obstructive pulmonary disease: Code(s): J44.1 - Chronic obstructive pulmonary disease with (acute) exacerbation Status: Acute Assessment and Plan: Recently hospitalized and discharged, now having worsening symptoms. [place]ga to be due to poor compliance with noninvasive ventilation in overuse of supplemental O2 * As above, appreciate pulmonology recommendations * Continue with supplemental O2 per protocol * S/p IV steroid, now Prednisone * Continue with DuoNebs, expectorants, flutter valve, long acting bronchodilators * Pulmonology following (3) Tachycardia: Code(s): R00.0 - Tachycardia, unspecified Status: Acute Assessment and Plan: resolved (4) Bilateral pneumonia: Qualifiers: Lung location: lower lobe of lung Pneumonia type: due to unspecified organism Qualified Code(s): J18.9 - Pneumonia, unspecified organism Code(s): J18.9 - Pneumonia, unspecified organism Status: Acute Assessment and Plan: Repeat CXR 08/17/2025 shows persistent airspace disease * Completed ceftriaxone and azithromycin * Continue supportive care measures as above * Urine antigens negative for strep pneumonia and Legionella (5) Diastolic CHF: Qualifiers: Heart failure chronicity: unspecified Qualified Code(s): I50.30 - Unspecified diastolic (congestive) heart failure Code(s): I50.30 - Unspecified diastolic (congestive) heart failure Status: Chronic Assessment and Plan: echocardiogram shows 40-45% left ventricular diastolic dysfunction * Appreciate cardiology consultation and recommendation * Continue Lasix 40 mg IV b.i.d., plan to wean as tolerated once she demonstrates improvement * When she is off IV diuresis, she will need to be transitioned to p.o. bumetanide 1 mg b.i.d. her Cardiology recommendations as oral Lasix had not been helping improve her symptoms. Will continue spironolactone 25 mg daily * Fluid restriction 1.5 L per day. Weigh patient daily * Continue compression stockings and leg elevation * Needs outpatient follow-up with Dr. Meyers 2 weeks following discharge (6) Laceration: Status: Acute Assessment and Plan: Developed right knee laceration following fall * Received wound care in ED. Wound was irrigated. 6 sutures placed. * suture is resorbable and strips will be removed in 3 days * wound care consulted (7) CKD (chronic kidney disease) stage 3, GFR 30-59 ml/min: Qualifiers: Chronic kidney disease stage 3 subtype: unspecified whether 3a or 3b Qualified Code(s): N18.30 - Chronic kidney disease, stage 3 unspecified Code(s): N18.30 - Chronic kidney disease, stage 3 unspecified Status: Acute Assessment and Plan: Chronic * Slight elevation in creatinine today to 1.27, likely due to IV diuresis * Monitor BMP closely, hold Lasix if any further increase (8) Iron deficiency anemia: Code(s): D50.9 - Iron deficiency anemia, unspecified Status: Acute Assessment and Plan: H&H remaining stable isat 13, and Hb 10.9 Started on Venofer, discontinue PO iron once patient is replete with IV iron (1000mg IV) monitor (9) Hypertension: Qualifiers: Hypertension type: primary hypertension Qualified Code(s): I10 - Essential (primary) hypertension Code(s): I10 - Essential (primary) hypertension Status: Chronic Assessment and Plan: Blood pressure stable, 136/67 today * Continue furosemide and spironolactone * Monitor BP trends (10) Weakness: Code(s): R53.1 - Weakness Status: Acute Assessment and Plan: Progressive weakening with more frequent falls * Continue PT/OT during admission Plan DVT prophylaxis on Sq Lovenox PT/OT Subjective Date/time seen: 08/23/25 10:44 Interval history: Comfortable at bedside Noting much improvement from yesterday Discussed with Pulmonology who stated that patient will undergo overnight oximetry and on home NIV. Review of Systems Review of Systems: All systems reviewed & are unremarkable except as noted in HPI and below Exam Narrative: GENERAL: Comfortable, no acute distress HENMT: moist mucous membranes. Dentures in place. EYES: EOM intact b/l NECK: no lymphadenopathy RESPIRATORY: Scattered wheezing, labored breathing, supplemental oxygen 2L CARDIO: irregular rhythm, irregular rate GI: Abdomen distended SKIN/EXTREMITIES: no rashes, no edema, no redness or tenderness Const: General: comfortable HENMT: Face/Nose/Sinus: Normal nares present Mouth: Yes moist mucous membra jay Eyes: General: appearance normal, both eyes and all related structures Pupils: Equal, round and reactive pupils present EOM: EOMs intact bilaterally Neck: Neck: supple Thyroid: thyroid normal Resp: Effort & Inspection: normal respiratory effort (on BiPap at this time. ) Auscultation: rhonchi left upper and right upper and diminished lung sounds bilateral in the lower lung cristina Cardio: Jugular venous distension: no JVD Rate: regular rate Rhythm: regular rhythm Heart sounds: S1 normal heart sound present and S2 normal heart sound present GI: Auscultation: normal bowel sounds : General: Yes bladder normal to palpation Bimanual exam- vagina & uterus: bladder normal to palpation Skin: General skin exam: erythema (to the bilateral lower extremities, worse on left than right), abrasion (left anterior knee), laceration and wounds noted (right knee, laceration with steristrip/suture.) Trauma: abrasion (left anterior knee) and laceration Wounds: wounds noted (right knee, laceration with steristrip/suture.) Neuro: Cranial nerves: Yes Equal, round and reactive pupils present Motor exam (neuro): Abnormal motor strength present (generalized weakness) Extrem: General: pedal edema bilaterally pitting and 1+ Psych: Mental Status: mental status grossly normal Affect: normal affect Objective Data Vital Signs Vital Signs: Vital Signs - 24 hr 08/22/25 13:30 08/22/25 13:32 08/22/25 13:34 Temperature Pulse Rate 76 Respiratory Rate 18 Blood Pressure Pulse Oximetry 96 96 Oxygen Delivery Nasal Cannula Nasal Cannula Oxygen Flow Rate 1 08/22/25 13:42 08/22/25 14:00 08/22/25 20:00 Temperature 97.8 F Pulse Rate 73 79 Respiratory Rate 20 16 Blood Pressure 116/58 L Pulse Oximetry 99 98 Oxygen Delivery CPAP Oxygen Flow Rate 08/22/25 20:25 08/22/25 20:25 08/22/25 20:40 Temperature Pulse Rate 72 76 Respiratory Rate 20 20 Blood Pressure Pulse Oximetry 95 Oxygen Delivery Nasal Cannula Oxygen Flow Rate 1 08/22/25 22:00 08/22/25 22:55 08/23/25 02:35 Temperature 97.6 F Pulse Rate 64 70 59 L Respiratory Rate 17 Blood Pressure 123/62 Pulse Oximetry 94 95 91 Oxygen Delivery Oxygen Flow Rate 08/23/25 02:42 08/23/25 02:55 08/23/25 04:53 Temperature 97.5 F L Pulse Rate 59 L 62 58 L Respiratory Rate 18 18 16 Blood Pressure 136/61 Pulse Oximetry 98 Oxygen Delivery Oxygen Flow Rate 08/23/25 07:36 08/23/25 07:36 08/23/25 07:45 Temperature Pulse Rate 59 L 60 Respiratory Rate 16 20 Blood Pressure Pulse Oximetry 99 Oxygen Delivery Nasal Cannula Oxygen Flow Rate 1 08/23/25 10:07 08/23/25 10:13 Temperature Pulse Rate 77 74 Respiratory Rate 24 H 24 H Blood Pressure Pulse Oximetry Oxygen Delivery Oxygen Flow Rate Intake/Output Intake/Output: Intake & Output 08/20/25 08/21/25 08/22/25 08/23/25 23:59 23:59 23:59 23:59 Intake Total 1360 1462 2044 400 Output Total 1090 1000 1550 Balance 270 462 494 400 Meds/Results Medications: Active Medications Generic Name Dose Route Start Last Admin Trade Name Freq PRN Reason Stop Dose Admin Acetaminophen 650 mg 08/17/25 10:40 Acetaminophen 325 Mg Tablet PO Q4H PRN Mild Pain (1-3) or Fever Hydrocodone Bitart/Acetaminophen 1 tab 08/17/25 10:40 08/23/25 09:01 Hydrocodone/Acetaminophen (*Crx) 5-325 Mg Tablet PO 1 tab Q4H PRN Administration Moderate Pain (4-6) Acetylcysteine 200 mg 08/22/25 14:00 08/23/25 07:33 Acetylcysteine 20% Inhal Soln 800 Mg/4 Ml Vial INHALATION 200 mg Q6HRT JESSIE Administration Al Hydrox/Mg Hydrox/Simethicone 30 ml 08/17/25 10:40 Mag Hydrox/Al Hydrox/Simeth 30 Ml Udc PO QID PRN Dyspepsia Albuterol 2 puff 08/17/25 14:38 Albuterol Sulfate (*Sp) Aerosol 1 Puff INHALATION Q6HRT PRN Shortness Of Breath Or Wheezing Albuterol/Ipratropium 3 ml 08/22/25 14:00 08/23/25 07:33 Ipratropium 0.5 Mg/Albuterol Sulfate 2.5 Mg (Base) Ampul.Neb 3 Ml INHALATION 3 ml Q6HRT JESSIE Administration Alprazolam 0.5 mg 08/17/25 14:38 08/22/25 08:38 Alprazolam (*Crx) 0.5 Mg Tablet PO 0.5 mg Q8H PRN Administration Anxiety Aspirin 81 mg 08/18/25 09:00 08/23/25 08:59 Aspirin 81 Mg Enteric Tablet PO 81 mg DAILY JESSEI Administration Atorvastatin Calcium 40 mg 08/17/25 21:00 08/22/25 21:06 Atorvastatin 40 Mg Tablet PO 40 mg HS JESSIE Administration Budesonide 0.5 mg 08/23/25 10:00 08/23/25 10:07 Budesonide Respule Neb 0.5 Mg/2 Ml Amp INHALATION 0.5 mg Q12HRT JESSIE Administration Buspirone HCl 10 mg 08/21/25 21:00 08/23/25 08:59 Buspirone Hcl 10 Mg Tablet PO 10 mg Q12HR JESSIE Administration Docusate Sodium 100 mg 08/20/25 11:23 Docusate Sodium 100 Mg Capsule PO Q12H PRN Constipation Enoxaparin Sodium 40 mg 08/17/25 11:00 08/23/25 09:03 Enoxaparin 40 Mg/0.4 Ml Syringe SUB-Q 40 mg DAILY JESSIE Administration Escitalopram Oxalate 10 mg 08/18/25 09:00 08/23/25 09:00 Escitalopram Oxalate 10 Mg Tablet PO 10 mg DAILY JESSIE Administration Ferrous Sulfate 325 mg 08/17/25 17:00 08/23/25 08:59 Ferrous Sulfate 325 Mg Tablet BY MOUTH 325 mg TID EJSSIE Administration Furosemide 40 mg 08/17/25 11:00 08/23/25 09:03 Furosemide Inj 40 Mg/4 Ml Vial IV PUSH 40 mg BID JESSIE Administration Gabapentin 300 mg 08/17/25 22:00 08/23/25 05:45 Gabapentin 300 Mg Capsule PO 300 mg Q8HR JESSIE Administration Guaifenesin 1,200 mg 08/21/25 21:00 08/23/25 08:58 Guaifenesin 12 Hr 600 Mg Tabcr PO 1,200 mg Q12HR JESSIE Administration Levetiracetam 250 mg 08/17/25 21:00 08/23/25 08:59 Levetiracetam 250 Mg Tablet PO 250 mg Q12H JESSIE Administration Loratadine 5 mg 08/17/25 18:00 08/22/25 17:00 Loratadine 5 Mg Tablet PO 5 mg QPM JESSIE Administration Magnesium Hydroxide 30 ml 08/17/25 10:40 Magnesium Hydroxide Susp 30 Ml Udc PO DAILY PRN Constipation Melatonin 5 mg 08/17/25 21:00 08/22/25 21:06 Melatonin 5 Mg Tablet PO 5 mg HS JESSIE Administration Multivitamins Therapeutic 1 tablet 08/18/25 09:00 08/23/25 09:00 Multivitamins Therapeutic Tab (*Bkc) PO 1 tablet DAILY JESSIE Administration Ondansetron HCl 4 mg 08/17/25 10:40 08/22/25 21:05 Ondansetron Inj 4 Mg/2 Ml Vial IV PUSH 4 mg Q6H PRN Administration Nausea And Vomiting Pantoprazole Sodium 40 mg 08/18/25 09:00 08/23/25 08:58 Pantoprazole 40 Mg Tablet PO 40 mg QAM JESSIE Administration Potassium Chloride 20 meq 08/17/25 17:00 08/23/25 08:58 Potassium Chloride 20 Meq Er Tablet PO 20 meq BID JESSIE Administration Roflumilast 500 mcg 08/24/25 09:00 Roflumilast 500 Mcg Tablet PO DAILY JESSIE Ropinirole HCl 1 mg 08/17/25 17:00 08/23/25 08:59 Ropinirole Hcl 1 Mg Tablet PO 1 mg TID JESSIE Administration Spironolactone 25 mg 08/18/25 09:00 08/23/25 08:59 Spironolactone 25 Mg Tablet PO 25 mg DAILY JESSIE Administration Radiology Results: ITS Impressions Chest X-Ray 08/17/25 07:42 IMPRESSION: 1. Suspect mild persistent right basilar airspace disease. Labs Labs: Laboratory Results - last 24 hr 08/23/25 08/23/25 05:29 05:32 WBC 8.5 RBC 3.81 L Hgb 10.9 L Hct 36.1 L MCV 94.8 MCH 28.6 MCHC 30.2 L RDW 14.7 H Plt Count 246 MPV 10.2 Immature Gran % (Auto) 3.6 H Neut % (Auto) 81.0 H Lymph % (Auto) 8.1 L [place] % (Auto) 6.8 Eos % (Auto) 0.0 Baso % (Auto) 0.5 Lymph # (Auto) 0.69 L [place] # (Auto) 0.6 Eos # (Auto) 0.0 Baso # (Auto) 0.0 Abs Immat Gran (auto) 0.31 H Absolute Neuts (auto) 6.9 H Absolute Nucleated RBC 0.000 Nucleated RBC % 0.0 Sodium 138 Potassium 4.1 Chloride 102 Carbon Dioxide 37 H Anion Gap -1 L BUN 35 H Creatinine 1.23 H Estim Creat Clear Calc 32 Estimated GFR 43 L Glucose 91 Calcium 8.7 Magnesium 2.3 Iron 36 L TIBC 272 % Saturation 13 L Ferritin 24.20 Total Bilirubin 0.4 AST 21 ALT 21 Alkaline Phosphatase 64 NT-Pro-B Natriuret Pep 1560 H Total Protein 5.8 L Albumin 3.2 L Quality VTE Prophylaxis VTE prophylaxis: pharmacologic ordered
[2025-08-23] MEDS: IRON SUCROSE COMPLEX 400 MG, IRON SUCROSE COMPLEX 100 MG in SODIUM CHLORIDE 0.9% IV 250 ML 78.57 MG IVPB (12:05)
[2025-08-23] MEDS: LORATADINE 5 MG TABLET PO (16:56)
[2025-08-23] MEDS: ATORVASTATIN 40 MG TABLET PO (20:57)
[2025-08-23] MEDS: MELATONIN 5 MG TABLET PO (21:00)
[2025-08-24] VITALS (12 sets, daily range): BP systolic 111–131; BP diastolic 49–64; PULSE 62–90; RESP 16–20; TEMP 36.4–36.9; O2SAT 94–98
--- NOTE | 2025-08-24 02:12 | PCRCNOTE ---
Patient participating in sleep study.
[2025-08-24 05:00] LABS: Alveolar/Arterial O2 Gradient 95.0 mmHg; Carboxyhemoglobin 0.6 % THb (0-2.0); Fractional Inspired Oxygen 32 %; HCO3 ABG 34.0 mEq/l (22.0-26.0); Methemoglobin ABG 0.3 %THb (0-1.5); Oxygen Content ABG 16.3 %vol (16.0-22.0); Oxygen Saturation ABG 94.0 % (95.0-100.0); PCO2 ABG 54.0 mmHg (35.0-45.0); PO2 ABG 70.0 mmHg (80.0-100.0); PO2 FiO2 Ratio Arterial Blood 2.19 %; Reduced Hemoglobin 5.1 %THb (0-5.0)
[2025-08-24 05:10] LABS: Modified Allen's Test Pass; Site Drawn RIGHT RADIAL
[2025-08-24] MEDS: ACETAMINOPHEN 325 MG TABLET 650 MG PO (05:10)
[2025-08-24] MEDS: GABAPENTIN 300 MG CAPSULE PO ×3 (05:10→22:10)
[2025-08-24 05:11] LABS: Liters per Minute 3.0 LPM
[2025-08-24 05:32] LABS: Hematocrit 36.6 % (37.0-47.0); Hemoglobin 11.1 g/dL (12.0-15.0); Immature Granulocyte Percent A 4.2 % (0-0.5); Lymphocytes Absolute Auto 0.93 K/mm3 (0.9-3.2); Mean Corpuscular HGB Conc 30.3 g/dl (32-36); Mean Corpuscular Hemoglobin 28.8 pg (26-34); Mean Corpuscular Volume 95.1 fl (80-100); Nucleated Red Blood Cells Absolute Auto 0.020 K/mm3 (0.0-0.012); Nucleated Red Blood Cells Perc 0.2 % (0.0-0.2); Platelet Count Result 242 k/mm3 (150-375); Red Blood Count 3.85 M/mm3 (4.2-5.4); White Blood Count 8.9 K/mm3 (4.5-10.0)
[2025-08-24 05:37] LABS: Alanine Aminotransferase 21 U/L (6-35); Albumin Level 3.1 g/dL (3.5-5.1); Alkaline Phosphatase 66 U/L (38-126); Anion Gap -1 mmol/L (4-12); Aspartate Amino Transferase 33 U/L (14-36); Bilirubin,Total 0.6 mg/dL (0.2-1.3); Blood Urea Nitrogen 32 mg/dL (7-17); Calcium 8.7 mg/dL (8.4-10.2); Carbon Dioxide 36 mmol/L (22-30); Chloride 103 mmol/L (98-107); Estimated CRCL calculation 36 ml/min; Estimated Glomerular Filt Rate 49; Glucose 78 mg/dL (65-110); Magnesium 1.9 mg/dL (1.6-2.3); Potassium 3.9 mmol/L (3.4-5.0); Sodium 138 mmol/L (137-145); Total Protein 5.7 g/dL (6.3-8.2)
[2025-08-24] MEDS: ROFLUMILAST 500 MCG TABLET PO (08:11)
[2025-08-24] MEDS: MULTIVITAMINS THERAPEUTIC TAB (*BKC) 1 TABLET PO (08:11)
[2025-08-24] MEDS: guaiFENesin 12 HR 600 MG TABCR 1200 MG PO ×2 (08:11→20:42)
[2025-08-24] MEDS: SPIRONOLACTONE 25 MG TABLET PO (08:12)
[2025-08-24] MEDS: ESCITALOPRAM OXALATE 10 MG TABLET PO (08:12)
[2025-08-24] MEDS: FERROUS SULFATE 325 MG TABLET BY MOUTH ×3 (08:12→16:57)
[2025-08-24] MEDS: POTASSIUM CHLORIDE 20 MEQ ER TABLET PO ×2 (08:12→16:57)
[2025-08-24] MEDS: ENOXAPARIN 40 MG/0.4 ML SYRINGE SUB-Q (08:12)
[2025-08-24] MEDS: ASPIRIN 81 MG ENTERIC TABLET PO (08:12)
[2025-08-24] MEDS: PANTOPRAZOLE 40 MG TABLET PO (08:12)
[2025-08-24] MEDS: FUROSEMIDE INJ 40 MG/4 ML VIAL IV PUSH ×2 (08:13→16:58)
[2025-08-24] MEDS: BUDESONIDE RESPULE NEB 0.5 MG/2 ML AMP INHALATION ×2 (08:24→21:13)
[2025-08-24] MEDS: ACETYLCYSTEINE 20% INHAL SOLN 800 MG/4 ML VIAL 200 MG INHALATION ×3 (08:25→21:13)
[2025-08-24] MEDS: IPRATROPIUM 0.5 MG/ALBUTEROL SULFATE 2.5 MG (BASE) AMPUL.NEB 3 ML INHALATION ×3 (08:25→21:13)
--- NOTE | 2025-08-24 10:42 | PCNWS ---
Weekly nutritional screen. Patient is tolerating current diet with adequate intake. No weight loss reported. No nutritional needs at this time.
--- NOTE | 2025-08-24 11:39 | PM.PNPUL ---
Progress Note: A&P Assessment and Plan (1) COPD exacerbation: Code(s): J44.1 - Chronic obstructive pulmonary disease with (acute) exacerbation Status: Acute Assessment and Plan: GOLD grade 4 group E COPD Patient with tobacco use (35 PY, quit 2003), Alpha 1 anti trypsin genotype MM. PFTs 11/28/2022 with FEV1 0.59 L, 26%, no bronchodilator response, airtrapping, decreased DLCO when corrected for alveolar volume, severe apical panlobular emphysema on CT scan of the neck from 03/04/2019 and chest on 08/13/2022, hypoxic respiratory failure on 2 L NC rest and activity since 2020, hypercarbic respiratory failure with ABG on 2 L was 7.42/56/47 and started on noninvasive ventilation with 4 L bleed in on 12/2022. Unable to tolerate noninvasive ventilation due to mask discomfort despite multiple mask trials. Wheelchair bound after she had a stroke in 2013 with dyspnea on exertion with wheelchair transfers and pivots Echocardiogram from 06/06/2022 with LVEF 55-60, grade 1 diastolic dysfunction, Normal right ventricular size and function. Normal right atrial size. No tricuspid regurg to measure RVSP. Inpatient COPD exacerbation and pneumonia 09/15/2022. 09/15/2022 white blood cell count 18.8, eosinophils 1.3%=244/uL. 08/22/2022 white blood cell count 10.5, eosinophils 3.1% equals 326/uL. Last inpatient hospitalization 06/29/2023 (rhinoviral infection). 08/04/2025: Home O2 assessment: Rest room air saturation 88%. Rest nasal cannula 1 L saturation 92%. Exercise nasal cannula 1 L saturation 91%. Patient is nonambulatory and did exercises with the feet. Patient requires 1 L oxygen at rest and with activity. 08/20/25: Long standing advanced COPD, FEV1 much less than a liter in 2018, on Advair 230/21 and umeclidinium / Incruse 62.5 once a day; Isabela told me that her insurance is switching her to Spiriva on Sep 14, so she won't be able to take Incruse any longer. She has end stage COPD, and with increased eosinophils, she may benefit from Dupixent as add-on therapy. This is not for acute decompensations, only maintenance. This is not available in the [facility] setting as it is for maintanence, not exacerbations. 08/21/2025: Overall patient has shortness of breath at rest, shortness of breath with any activity, she has cough and the phlegm gets stuck in her throat. When I enter the room she was on 2.5 L with saturation 99%. I decreased her 1 L nasal cannula her saturations were 92%. She is afebrile. White blood cell count 9.7, creatinine 1.27, BNP has increased from 1200 on 08/19/2020 5-1810 today. Patient still has difficulty tolerating the noninvasive ventilation and has panic attacks. Plan: patient continues to deteriorate and never recovered from her previous hospital discharge on 08/04/2025. I will treat for reversible causes for shortness of breath at rest. I have treating for COPD exacerbation, pneumonia and fluid overload. I will decrease her Solu-Medrol to 20 mg q.6 hours, I will continue DuoNebs q.i.d.. I will discontinue Advair while she is on systemic steroids and DuoNebs q.i.d. I will increase her guaifenesin to 1200 mg p.o. q.i.d.. Continue ceftriaxone and azithromycin, both day 5. Continue Lasix 40 IV b.i.d.. patient with multiple exacerbations and I will add Daliresp 250 q.day. Patient has end-stage COPD now with 2 admissions in the last 4 weeks. She never recovered and has continued deterioration. I have told the patient and her caregiver that care home facility may help her and that she may wish to consider gather information from a hospice team. 08/22/2025: Overall the patient feels the same. She has rest shortness of breath. She did sit up in the chair. She has the same cough and phlegm that is minimal. No hemoptysis. When I enter the room she was on 2 L nasal cannula saturation 99%. I 2 decreased her to 1 L nasal cannula her saturations were 98%. Patient states she has phlegm that she cannot expectorate. Patient wore home noninvasive ventilator with the 100 over the mouth under the nose mask and said she wore this for a few hours and was able to get some sleep. Plan: continue to treat 1st possible COPD exacerbation. Continue Solu-Medrol 20 q.6, DuoNebs q.6, I will add Mucomyst as she has difficulty expectorating q.6. She has completed 5 days of azithromycin will continue ceftriaxone, day 6 of 7. She is on Lasix 40 IV b.i.d.. Continue Daliresp 250 q.day. 08/23/2025: Overall the patient tells me she is better today. She says she is 70% back to her baseline. She sat in the chair yesterday for 8 hours. She still has some shortness of breath sitting and with activity. She denies cough. She still is unable to expectorate but feels she has less phlegm overall. She has minimal epistaxis. She is afebrile. On 1 L nasal cannula saturations are 94%. White blood cell count 8.5, creatinine 1.23, BNP has improved from 1810 on 08/21/2025 to 1560 today. Plan: Today is day 7 of steroids and she has no wheezing and will discontinue systemic steroids as she has laceration on her right knee and hematoma on her left knee. I will add budesonide 500 mcg b.i.d.. Continue DuoNebs and Mucomyst q.6 hours. Today is day 7 of 7 of ceftriaxone. Will increase Daliresp to 500 q.day. she is on Lasix 40 IV b.i.d. and her BNP has improved. 08/24/2025: Patient continues to improve. States she is 80% back to her normal. She has no rest shortness of breath but continues with dyspnea on exertion. Her cough is better and back to her normal. She is now expectorating phlegm. She has some epistaxis. She is on 1 L nasal cannula saturations 96%. She is afebrile. White blood cell count 8.9, creatinine 1.09. Plan: From a pulmonary perspective patient is ready to be discharged to [facility] bed on these pulmonary medications: DuoNebs q.i.d. Budesonide 500 mcg nebulized b.i.d. Daliresp 500 mcg q.day Guaifenesin 1200 mg p.o. b.i.d. Loratadine 5 mg p.o. q.p.m. Diuretics per hospitalist team. Currently the patient is on 40 IV b.i.d.. Her weight is 68 kg. Oxygen pursed on swing bed protocol. Currently she is on 1 L at rest. When she naps or sleeps: Noninvasive ventilation with AVAPS AE mode through via med: rate 14, tidal volume 500, minimum EPAP 5, maximum EPAP 15, minimum pressure support 10, maximum pressure support 20 and 5 L bleed in. if [facility] swing bed can perform an overnight oximetry on these settings to document adequate oxygenation this is recommended. Follow-up in the Pulmonary Clinic 4 weeks. I informed our personnel scheduler. Discussed with Dr. Zacarias, will sign off, call with questions. (2) Acute and chronic respiratory failure, unspecified whether with hypoxia or hypercapnia: Qualifiers: Respiratory failure complication: hypoxia and hypercapnia Qualified Code(s): J96.21 - Acute and chronic respiratory failure with hypoxia; J96.22 - Acute and chronic respiratory failure with hypercapnia Code(s): J96.20 - Acute and chronic respiratory failure, unspecified whether with hypoxia or hypercapnia Status: Acute Assessment and Plan: Acute and chronic respiratory failure, unspecified whether with hypoxia or hypercapnia Status: Acute Assessment and Plan: Worsening compared to discharge on Aug 04, anxiety contributed to panic, poor choices, not using NIV, over using O2, more falls with lower leg injuries treated at ER and Dr Donahue's office. She may be at end stage, however O2 requirement is low. She has low exerzize toelrance due to stroke, right hemiplegia. Does not appear to have a new pneumonia. Some of this is destabilized cardiac function, EF 40%, has diastolic an systolic dysfunction, and the large ventral hernia is not helping. 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 08/04/2025: Home O2 assessment: Rest room air saturation 88%. Rest nasal cannula 1 L saturation 92%. Exercise nasal cannula 1 L saturation 91%. Patient is nonambulatory and did exercises with the feet. Patient requires 1 L oxygen at rest and with activity. 08/21/25: patient tolerates noninvasive ventilation poorly. Last admission she did tolerate her home noninvasive ventilator through via med with AVAPS AE settings rate of 14, tidal volume 500, EPAP minimum 5, EPAP maximum 15, pressure support minimum 10, pressure support maximum 25 with 2 L bleed in. last admission on 08/04/25: Patient was using and over the mouth under the nose mask And said that she slept for 3 hours and feels like this was greatly improved. Patient had an overnight oximetry on these settings with recording duration of 4 hours and 18 minutes, average saturation 93%, low saturation 82%, time with saturation less than or equal to 88% was 31 minutes. Oxygen desaturation index 8.9. Patient had ABG prior to removal with a pH of 7.40/50/59. Current AVAPS AE settings with under the nose over the mouth mask provide adequate ventilation. Overnight oximetry on 32% FiO2 on 08/01 provided adequate oxygenation and I will discharge her on 3 L bleed in at night. plan: Patient is brought in her home noninvasive ventilator with the over the mouth under the nose mask and will place her on these settings with 3 L bleed in tonight to see if she can tolerate this. Patient has significant anxiety and I will increase her BuSpar to 10 mg p.o. b.i.d.. 08/22/2025: Patient wore home noninvasive ventilator with the 100 over the mouth under the nose mask and said she wore this for a few hours and was able to get some sleep. Plan: Continue her home noninvasive ventilator with the AVAPS AE settings and an over the mouth under the nose mask as tolerated during the day p.r.n. and at night. Later in the day obtained a download from [employer] from 07/20/2025 to 08/22/2025. Patient is on of vivo 45 machine with the AVAPS AE settings of: rate 14, tidal volume 500, minimum EPAP 5, maximum EPAP 15, minimum pressure support 10, maximum pressure support 20 and 3 L bleed in. Usage days greater than or equal to 4 hours was 6%. Total usage days 26%. Average usage hours is 2 hours and 53 minutes. Average EPAP 10. Average peak pressure 20. Average tidal volume 487. Average leak 75. AHI 14. I interpret this download as very poor compliance, high leak with high AHI and adequate tidal volume. 08/23/2025: Patient tells me she wore her home noninvasive ventilator last night with 3 L bleed in for the whole night. She says it was a little bit rough but she thinks she got some sleep because she does not remember being awake all night. At assisted living there is no assistance to help her put the mask on and we practiced and she was able to successfully put her over the mouth under the nose mask on, turn her machine on. She had a large leak and we adjusted the mask and she said this felt better and was giving her better tidal volumes. Plan: Patient will continue noninvasive ventilation with the AVAPS AE mode and settings as above. She is tolerating and over the mouth under the nose mask. I will obtain an overnight oximetry on these settings with 3 L bleed in and an ABG prior to removal. 08/24/25: Patient wore her home noninvasive ventilation with the settings above and 3 L bleed in. Patient said she did tolerate the mask and does not know if she slept. Patient had an ABG prior to removal of the mask of 7.42/54/70. Overnight oximetry recording duration 7 hours and 2 minutes. Average saturation 87%. Low saturation 78%. Time with saturation less than or equal to 88% was 277 minutes. Oxygen desaturation index 17.8. Plan: Current AVAPS AE settings provide adequate ventilation. Patient with low saturations on 3 L nasal cannula will discharge on 5 L nasal cannula bleed in. Subjective Date/time seen: 08/24/25 11:39 Interval history: Patient was seen August 18, 2025, at 18:55, room 231 Her friend gabrielle [facility], Isabela, is at the bedside, assists with the history. NEW: Teresa Levi is a 75-year-old woman with COPD [id number] in our clinic, sees Dr Nava, was admitted Jul 30 to , went home, did not use BiPAP at [facility]. She was admitted with increased shortness of breath, worsening balance in her wheelchair running into things causes gashes on her lower legs with trips to the ER. She banged up her left knee, left lateral leg, last admission she was on AVAPS, and although she was not wearing it, AVAPS would be a better option for her because of the indication, chronic hypercapneic respiraotry failure. She does not have obesity hypoventilation. She is using a hybrid mask at home, under the nose which is more comfortable comared to over the nose fidelina with her claustrophobia. recurrent hypercapnic respiratory failure, acute exacerbation of COPD, bilateral infiltrates consistent with pneumonia, dCHF, diuretics adjusted, and CKD, HTN, gout, lung cancer 10 yeas ago. She was here less than a month ago. She does not use BiPAP at home due to claustrophobia, takes alprazolam 0.5 mg HS to assist with sleep onset, also makes trying PAP easier, She uses O2 at home. At discharge, she was on be on O2 at 1 L, increase with exertion. She was not using her PAP machine at [facility], was sleeping in a recliner, turned O2 up when she felt short of breath. She has been falling frequently with injuries to lower legs, and has a large injury to the LUE after a tourniquet placed while in an ambulance. She had one of the gashes in her lower leg sewn together by Dr Donahue. She is on 2 L, sat is 93%.Admitted Aug 17, wbc 7.1 k with mild increase in eosinophils. She has had high eosinophils on at least 3 occasions, now 400 this admission. She was admitted July 30 through the , last month for an acute exacerbation of COPD, acute hypercapnic hypoxemic respiratory failure and right middle lobe pneumonia.She went home, did not use her NIV, slept in recliner, turne O2 higher than needed, was falling out of wheelchair and running into things, gashing her little legs. 08/21/2025: Overall patient has shortness of breath at rest, shortness of breath with any activity, she has cough and the phlegm gets stuck in her throat. When I enter the room she was on 2.5 L with saturation 99%. I decreased her 1 L nasal cannula her saturations were 92%. She is afebrile. White blood cell count 9.7, creatinine 1.27, BNP has increased from 1200 on 08/19/2025 to 1810 today. Patient still has difficulty tolerating the noninvasive ventilation and has panic attacks. BuSpar increased to 10 mg p.o. b.i.d.. Daliresp 250 added. 08/22/2025: Overall the patient feels the same. She has rest shortness of breath. She did sit up in the chair. She has the same cough and phlegm that is minimal. No hemoptysis. When I enter the room she was on 2 L nasal cannula saturation 99%. I 2 decreased her to 1 L nasal cannula her saturations were 98%. Patient states she has phlegm that she cannot expectorate. Patient wore home noninvasive ventilator with the 100 over the mouth under the nose mask and said she wore this for a few hours and was able to get some sleep. Later in the day obtained a download from [employer] from 07/20/2025 to 08/22/2025. Patient is on of vivo 45 machine with the AVAPS AE settings of: rate 14, tidal volume 500, minimum EPAP 5, maximum EPAP 15, minimum pressure support 10, maximum pressure support 20 and 3 L bleed in. Usage days greater than or equal to 4 hours was 6%. Total usage days 26%. Average usage hours is 2 hours and 53 minutes. Average EPAP 10. Average peak pressure 20. Average tidal volume 487. Average leak 75. AHI 14. I interpret this download as very poor compliance, high leak with high AHI and adequate tidal volume. 08/23/2025: Overall the patient tells me she is better today. She says she is 70% back to her baseline. She sat in the chair yesterday for 8 hours. She still has some shortness of breath sitting and with activity. She denies cough. She still is unable to expectorate but feels she has less phlegm overall. She has minimal epistaxis. She is afebrile. On 1 L nasal cannula saturations are 94%. White blood cell count 8.5, creatinine 1.23, BNP has improved from 1810 on 08/21/2025 to 1560 today. Patient tells me she wore her home noninvasive ventilator last night with 3 L bleed in for the whole night. She says it was a little bit rough but she thinks she got some sleep because she does not remember being awake all night. At assisted living there is no assistance to help her put the mask on and we practiced and she was able to successfully put her over the mouth under the nose mask on, turn her machine on. She had a large leak and we adjusted the mask and she said this felt better and was giving her better tidal volumes. 08/24/2025: Patient continues to improve. States she is 80% back to her normal. She has no rest shortness of breath but continues with dyspnea on exertion. Her cough is better and back to her normal. She is now expectorating phlegm. She has some epistaxis. She is on 1 L nasal cannula saturations 96%. She is afebrile. White blood cell count 8.9, creatinine 1.09. Patient wore her home noninvasive ventilation with the settings above and 3 L bleed in. Patient said she did tolerate the mask and does not know if she slept. Patient had an ABG prior to removal of the mask of 7.42/54/70. Overnight oximetry recording duration 7 hours and 2 minutes. Average saturation 87%. Low saturation 78%. Time with saturation less than or equal to 88% was 277 minutes. Oxygen desaturation index 17.8. DATA * Date 08/01253:48 am discharged 258:59 :06 a.m. pH 7.41 7.40 7.39 7.37 pCO2 60 50 63 67 pO2 83 58.5 79 66.8 HCO3 37.8 30.5 38 38 sat 96% 90% 95% 92% CarboxyHgb FiO2 40% 28% 32% 30% O2 delivery BiPAP IPAP 25 16 EPAP 8 7 cm 8 08/24/2025: Patient wore her home noninvasive ventilation with the settings above and 3 L bleed in. Patient said she did tolerate the mask and does not know if she slept. Patient had an ABG prior to removal of the mask of 7.42/54/70. Overnight oximetry recording duration 7 hours and 2 minutes. Average saturation 87%. Low saturation 78%. Time with saturation less than or equal to 88% was 277 minutes. Oxygen desaturation index 17.8. * 08/17/25, CXR : Cardiomediastinal silhouette normal size and configuration. Mild right basilar airspace disease persists. No acute bony abnormality. Osteopenia. IMPRESSION: Suspect mild persistent right basilar airspace disease. {THIS IS WHERE SHE HAD INFILTRATES in [place]} * 08/17/2025 white blood cell count 8.3 k with 4.5% eosinophils, - absolute eosinophil count 400 which is increased. Also had elevated eosinophils on June 29, 2023, 740 eosinophils, June 21, 2023 with 500 eosinophils. 07/31/25: Echo Summary 1. Technically suboptimal study due to poor sonographic images. 2. Definity contrast administered improved wall motion interpretation. 3. Left ventricular chamber dimension is moderately enlarged. 4. Left ventricular systolic function is moderately globally reduced, estimated at 40-45. 5. The left ventricular diastolic function is grade I diastolic dysfunction. 6. No pulmonary hypertension, estimated pulmonary arterial systolic pressure is 19 mmHg. Right Ventricle Right ventricular chamber dimension is normal. Right ventricular systolic function is normal. Left Atria Left atrial chamber dimension is normal. Right Atria Right atrial chamber dimension is normal. 07/31/25: EXAMINATION:CT diagnostic chest wo con INDICATION: Pneumonia COPD COMPARISON: None. FINDINGS: Patchy consolidative changes are developing in the medial segment of the right middle lobe. Mild scattered fibrotic and atelectatic appearing changes throughout the lower lobes bilaterally. Moderately severe centrilobular emphysematous changes especially in the upper lobes. No new nodules or masses seen. Heart and great vessels stable in size with no cardiomegaly or large pericardial effusion/bulky lymphadenopathy. Coronary artery calcification and/or stenting. 50% compression deformity of T6 similar to the previous exam. IMPRESSION: Small area of consolidation in the medial segment of the right middle lobe consistent with early pneumonia. Finding should be followed radiographically until clear. 01/29/25 - Overnight oximetry on noninvasive ventilator with 4 L bleed in. Recording duration 7 hours and 53 minutes. Basal saturation 97.5. Low saturation 94%. High saturation 99%. Time with saturation less than or equal to 88% was 0 minutes. Oxygen desaturation 0. 4 L provides adequate oxygenation. 11/06/23 - CXR - The lungs are clear, without evidence of focal consolidation or pleural effusion. Suspected COPD. Cardiomediastinal silhouette is within normal limits. Bones and soft tissues are unremarkable. 07/03/2023: Home O2 assessment: Rest room air saturations 83%. Rest nasal cannula 2 L saturation 87%. Rest nasal cannula 3 L saturation 88%. Rest nasal cannula 4 L saturation 91%. Exercise nasal cannula 4 L, saturations 88%. Exercise nasal cannula 5 L saturation 90%. Patient requires 4 L at rest and 5 with activity. 07/02/24: Patient wore her home noninvasive ventilator in the hospital, with an AVAPS-AE mode with a rate of 12, tidal volume 400, EPAP minimum 5, maximum EPAP 10, minimal pressure support 10, maximal pressure support 15, rise time of 3 with 4 L bleed in and did well.? Patient had an overnight oximetry with recording time of 7 hours and 31 minutes, average saturation 92%.? Low saturation 88%.? Time with saturation less than or equal to 88% was 1 minute, oxygen desaturation index 0.4.? Patient had a blood gas prior to removal of this machine with pH of 7.44/48/70.? These settings provide adequate oxygenation and ventilation.? 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 06/30/2023: EXAMINATION: CTA chest PE protocol ?INDICATION: Hypoxia. ?COMPARISON: Chest CT 08/12/2022 ?FINDINGS: There is severe emphysema. There is mild atelectasis bilaterally, worst in the lower lobes. No pleural effusion. The heart size is normal. There are coronary artery calcifications. No pericardial effusion. There is no pulmonary embolus. There is a gallstone in the gallbladder which is normal in size. There is a ventral hernia containing colon. There is kyphosis and moderate spondylosis of thoracic spine. There is a chronic burst fracture of T6. There is a chronic compression fracture of L1. ?IMPRESSION: ?1. No pulmonary embolus. ?2. Severe emphysema. ?11/28/2022 PFTs ??The test was performed and results interpreted in accordance with the 2019 and 2005 ATS/ERS Task Force guidelines respectively using the Global Lung Function Initiative-2012 reference equations. Patient demonstrated good effort and cooperation. Reproducibility criteria were met. The quality of the pre bronchodilator spirometry maneuver was Grade A and post bronchodilator spirometry maneuver was Grade A. ??Findings: ??Spirometry: ? There is decreased maximal expiratory airflow at all lung volumes with concave expiratory flow tracing.? The contour the inspiratory flow tracing is normal.? pre bronchodilator FVC is 1.39 L, 48% predicted.? The pre bronchodilator FEV1 is 0.59 L, 26% predicted.? The pre bronchodilator FEV1:? FVC ratio is 42%.? The post bronchodilator FVC is 1.50 L,? representing an 8% increase.? The post bronchodilator FEV1 is 0.63 L, representing a 6% increase.? The post bronchodilator FEV1:? FVC ratio is 42%.? ??Plethysmography:? The total lung capacity is 4.40 L, 85% predicted.? The functional residual capacity is 3.27 L, 110% predicted.? The residual volume is 3.01 L, 133% predicted.? ??Diffusing capacity:? The diffusing capacity unadjusted for hemoglobin and carboxyhemoglobin is 5.2, 25% predicted.? The diffusing capacity adjusted for alveolar volume is 2.58, 61% predicted. ??When compared to PFTs from [facility] on 06/20/2019 the post bronchodilator FVC has decreased from 2.10 L to 1.50 L.? The post bronchodilator FEV1 has decreased from 0.80 L to 0.63 L.? The total lung capacity is unchanged from 4.88 L to 4.40 L.? The functional residual capacity is unchanged from 3.71 L to 3.27 L.? The residual volume is unchanged from 3.24 L to 3.01 L.? The diffusing capacity unadjusted from hemoglobin and carboxyhemoglobin is unchanged from 5.6 to 5.2.? The diffusing capacity adjusted for alveolar volume is unchanged from 2.39 to 2.58. ??Impression:?There is a very severe obstructive abnormality without significant improvement after inhaling a single dose of albuterol.?The increase in residual volume is consistent with?air trapping?from an obstructive abnormality.? The diffusing capacity unadjusted for hemoglobin and carboxyhemoglobin is severely decreased and?remains mildly decreased when adjusted for alveolar volume. ??When compared to previous PFTs there has been a?greater than anticipated time dependent decrease in the FVC and FEV1?with no significant change in the total lung capacity, functional residual capacity, residual volume or DLCO. ?11/28/2022? ABG on 2 L nasal cannula pulse delivery: ? PH 7.42 / 56/47. ? Saturations were 83%.? Checked manually saturations were 84%. ?11/28/2022 ? Home O2 assessment:? Rest room air saturation 84%.? Rest nasal cannula 1 L saturation 86%, rest nasal cannula 2 L saturation 92%.? Exercise 2 L nasal cannula saturation 90%. ? These measurements were made with continuous flow nasal cannula.? I spoke with the opto mechanical technician and they attempted to place the patient on 4 L pulse delivery nasal cannula and her saturations remained less than 88%.??The patient requires 2 L oxygen at rest and with exercise at continuous flow. ??? Collectively these results demonstrate progression of the patient's very severe obstructive abnormality consistent with GOLD grade 4 COPD? with chronic hypercarbic respiratory failure from her COPD and hypoxemic respiratory failure from her COPD. ? Patient has chronic hypercarbic respiratory failure from her COPD and would benefit from noninvasive ventilation. ? She would benefit from noninvasive ventilation to prevent further deterioration and subsequent hospitalizations. ? Previously the patient had been on BiPAP on 05/05/2022 and she said that she could not tolerate these pressures and she had claustrophobia.?? I talked to the patient about this and she is also had a stroke with decreased mobility of her right upper extremity and is unsure if she will be able to? initiate her machine and mask at home although she is willing to try. ??? I will initiate home noninvasive ventilation with an AVAPS-AE mode? with a set rate of auto, tidal volume 500, minimal inspiratory pressure 5, maximal expiratory pressure 15, minimal inspiratory pressure 6, maximal inspiratory pressure 25,? rise time 1.0 sec, and 2 L bleed in. These settings can be adjusted for patient comfort on initial set up. ??? The pulmonary function test coordinator has reached out to [facility] to see if this can be coordinated through them and the outpatient clinic will coordinate our efforts with the PFT lab. ?? 08/12/2022 EXAMINATION: CT diagnostic chest wo con ???INDICATION: SOB for 2 days. COPD. History of lung cancer. ???COMPARISON: 07/17/2022 portable AP chest ???02/28/2019 CTA chest ???FINDINGS: Heart size is within normal range. No pericardial or pleural effusion. ???There is extensive thoracic aortic and some great vessel calcifications in addition to prominent coronary artery calcifications. No thoracic aortic aneurysm. ???Normal size and attenuation of the thyroid gland. No hilar or mediastinal mass lesion or lymphadenopathy. ???Moderate to moderately severe emphysema and bilateral pulmonary hyperinflation. ???There is a chronic linear scarring in the right lower lobe and left lower lobe. There is another linear scar or discoid atelectasis in the right lower lobe since 02/28/2019. ???There is minimal atelectasis at the dependent lung bases, both lower lobes. ???Included portions of the adrenal glands are unremarkable. ???One or more ventral abdominal wall hernias. ???Multiple old healed right rib fractures. ???Moderate anterior wedge compression fracture deformity of T6. ???Degenerative disc disease of the lower cervical spine and degenerative spurring of the thoracic spine. ???No suspicious osteolytic or osteoblastic lesions are noted. ???IMPRESSION:? Moderate to moderately severe emphysema ???Mild discoid atelectasis and/or scarring in the lower lobes ???Minimal bilateral lower lobe dependent atelectasis ???Aortic, great vessel and coronary artery atherosclerosis ???06/05/2022 CXR EXAMINATION: XR chest 2V ?INDICATION: SOB,?COMPARISON: 05/19/2022, 05/07/2022 ?FINDINGS: There are small pleural effusions. There is no pneumothorax. There are minimal airspace opacities of the lung bases. The cardiomediastinal silhouette is normal. There is a chronic compression fracture of T6 without significant change. ?IMPRESSION: ?1. Small pleural effusions with minimal bibasilar airspace opacities, likely atelectasis. ???04/03/2022 ABG on 3 L 7.42/49/111 ???03/10/2022 ABG RA 7.42/50/44 ?06/20/2019:? I have PFT report from [facility]. ???Findings: ???Spirometry:? There is decreased maximal expiratory airflow at all lung volumes with concave expiratory flow tracing.? The contour of the inspiratory flow tracing is normal.? The pre bronchodilator FVC is 1.64 L, 64% predicted.? The pre bronchodilator FEV1 is 0.76 L, 37% predicted.? The pre bronchodilator FEV1:? FVC ratio is 47%.? The post bronchodilator FVC is 2.10 L, representing a 28% increase.? The post bronchodilator FEV1 is 0.80 L, representing a 5% increase.? The post bronchodilator FEV1:? FVC ratio is 38%. ???Plethysmography:? The total lung capacity is 4.88 L, 110% predicted.? The functional residual capacity is 3.71 L, 159% predicted.? The residual volume is 3.24 L, 185% predicted. ???Diffusing capacity:? The diffusing capacity unadjusted for hemoglobin and carboxyhemoglobin is 5.6, 28% predicted.? The diffusing capacity adjusted for alveolar volume is 2.39, 66% predicted. ?My?Impression: There is a severe obstructive abnormality with significant improvement after inhaling a single dose of albuterol. The increase in residual volume is consistent with air trapping from an obstructive abnormality.? Hyperinflation is present as demonstrated by the increase in functional residual capacity and is consistent with an obstructive abnormality. The diffusing capacity unadjusted for hemoglobin and carboxyhemoglobin is severely decreased and is mildly decreased when adjusted for alveolar volume. ???When compared to the spirometry on 03/03/2019 the pre bronchodilator FVC has increased from 1.05 L to 1.64 L. The pre bronchodilator FEV1 has increased from 0.47 L to 0.76 L. ?03/03/2019 I have an echocardiogram [place] [facility] [place] ???Summary:? The calculated ejection fraction is 52.? Left ventricular diastolic function is abnormal, grade 1 impaired relaxation.? Right ventricular systolic function is normal.? No evidence of pericardial effusion.? A trace of tricuspid regurgitation normal RV size and function normal right atrial size. ???01/09/2019 echocardiogram report from [facility].? Summary:? The left ventricle size is normal.? The left ventricular systolic function is lower limits of normal with an estimated LV EF of 50-55%.? Left ventricular diastolic function is abnormal grade 1, impaired relaxation, right ventricular systolic pressure is 37, mild aortic valve sclerosis ?03/03/2019:? I have a spirometry report from [facility]. ??Spirometry:? There is decreased maximal expiratory airflow at all lung volumes with concave expiratory flow tracing.? The contour the inspiratory flow tracing is normal.? The FVC is 1.05 L, 36% predicted.? The FEV1 is 0.47 L, 20% predicted.? The FEV1:? FVC ratio is 45%. ???My impression:? There is a very severe obstructive abnormality. ?? ?01/09/2019:? CT angiogram chest report from [facility].? Impression: no CT evidence of pulmonary embolism.? Mosaic perfusion in the upper and lower lobes may represent small airways disease or peripheral airways disease or sequela of radiation therapy if applicable.? The left hilar and suprahilar mass seen in 2012 is no longer present. ? 09/22/2018:? I have a report CT scan of the chest from [facility] demonstrating no pulmonary embolism, mild to moderate emphysema small amount of post infectious residual, no lymphadenopathy no pleural effusions, no pericardial effusion, no pneumothorax. ?? 01/09/2019: ? Report from [facility] ???EXAMINATION:CTA, CHEST FOR PE ???CLINICAL INDICATION: ???68-year-old inpatient with increasing SOB bilateral hand??and leg swelling over the past 6 weeks.? Given history of CHF, COPD,??coronary artery disease and lung carcinoma.??COMPARISON:??CTA chest abdomen pelvis with contrast 01/28/2013 and FDG PET/CT 02/02/2013 ?FINDINGS: ?The study was technically adequate??No intraluminal filling defects, wall thickening, or thrombus is present in??the pulmonary arterial vascular tree to suggest pulmonary embolus ?Although there is no given history of whether this patient had radiation or??chemotherapy the large left hilar and suprahilar mass seen in 2013 is no??longer present.? Mild thickening within the left hilar region of the??previously seen mass.? No recurrent hilar mass or mediastinal or hilar??lymphadenopathy.? Subtle mosaic perfusion of the upper lobes and dependent??lower lobes may represent small airway disease or peripheral airway disease ???or could be sequela of radiation therapy.? Additionally, small bibasilar??effusions and bilateral enhancing lower lobe atelectasis probably??compressive atelectasis.? The mosaic perfusion in the lower lobes has??superimposed interlobar septal thickening and groundglass opacities which??is suggestive of development of pulmonary edema. ???Mild cardiomegaly due to biventricular prominence.? No pericardial??effusion.? There is moderate hepatic venous reflux suggestive of a elevated??right heart pressures..? Normal caliber thoracic aorta.? No evidence of??aortic dissection. ???Included portions of the liver is homogeneous in density.? No definite??enhancing hepatic mass in the upper liver.? The spleen and adrenal glands??and tail of pancreas are unremarkable.? Stable wide neck supra umbilical?epigastric region ventral wall hernia containing nonentrapped nonobstructed?appearing loops of transverse colon unchanged since 2013.? This is only?partially included on this study. ???Bone window imaging fails to demonstrate pathologic bony abnormality.???Interval wedge compression deformity of T6. ?IMPRESSION: ???1. No CT evidence of pulmonary embolus ???2.? Mosaic perfusion in the upper and lower lobes may represent small ???airway disease or peripheral airway disease or sequela of radiation therapy?if applicable. ???3.? Concomitant findings of definite pulmonary edema bibasilar effusions??lower lobe atelectasis may represent CHF; there is always a possibility??this could represent malignant pleural effusions ???4.? Although there is no given history of bladder on this patient has?undergone radiation therapy or chemotherapy the left hilar and suprahilar?mass seen in 2013 is no longer present. ???5.? Wedge compression deformity T6 Since 2013 Review of Systems Constitutional: Constitutional: Reports no additional constitutional complaints Eyes: Eyes: Reports no additional eye complaints ENT: Reports system reviewed and no additional complaints, except as documented Cardiovascular: Cardiovascular: Reports no additional cardiovascular complaints Respiratory: Respiratory: Reports no additional respiratory complaints Gastrointestinal: Gastrointestinal: Reports no additional gastrointestinal complaints Musculoskeletal: Musculoskeletal: Reports no additional musculoskeletal complaints Neurologic: Reports system reviewed and no additional complaints, except as documented Psychiatric: Psychiatric: Reports no additional psychiatric complaints Endocrine: Endocrine: Reports no additional endocrine complaints Hematologic/Lymphatic: Hematologic/Lymphatic: Reports no additional hematologic/lymphatic complaints Allergic/Immunologic: Allergic/Immunologic: Reports no additional allergic/immunologic complaints Exam Const: General: cooperative, comfortable and no acute distress Orientation/consciousness: oriented to person, oriented to place and oriented to time HENMT: Head: normal to inspection Ears: hearing grossly normal bilaterally Eyes: General: appearance normal, both eyes and all related structures Neck: Neck: normal visual inspection Chest: Chest palpation & inspection: normal inspection of the chest Resp: Effort & Inspection: normal respiratory effort and able to speak in complete sentences Auscultation: no crackles, no rales, no rhonchi, no wheezes and diminished lung sounds Other: No wheezes Cardio: Jugular venous distension: no JVD GI: Inspection: normal to inspection Skin: General skin exam: normal color Neuro: General: oriented to person, oriented to place and oriented to time Extrem: General: normal to inspection and edema Other: Positive bilateral lower extremity edema. right knee area with Steri-Strips and sutures with no drainage. Left knee has a 3 cm fluid collection medial and below the knee joint that is tender with no drainage. Psych: Appearance: grossly normal Objective Data Vital Signs Vital Signs: Vital Signs - 24 hr 08/23/25 13:31 08/23/25 13:40 08/23/25 14:00 Temperature 36.4 C Pulse Rate 74 73 59 L Respiratory Rate 20 20 17 Blood Pressure 132/58 L Pulse Oximetry 98 Oxygen Delivery Oxygen Flow Rate 08/23/25 20:00 08/23/25 20:30 08/23/25 20:30 Temperature Pulse Rate 71 Respiratory Rate 22 H Blood Pressure Pulse Oximetry 96 97 Oxygen Delivery Nasal Cannula Nasal Cannula Oxygen Flow Rate 1 1 08/23/25 20:41 08/23/25 21:04 08/23/25 22:09 Temperature 36.8 C Pulse Rate 78 81 60 Respiratory Rate 22 H 16 Blood Pressure 131/54 L Pulse Oximetry 96 95 Oxygen Delivery Oxygen Flow Rate 08/24/25 05:01 08/24/25 08:00 08/24/25 08:25 Temperature 36.4 C L Pulse Rate 62 Respiratory Rate 18 Blood Pressure 130/63 Pulse Oximetry 97 98 98 Oxygen Delivery Nasal Cannula Nasal Cannula Oxygen Flow Rate 1 1 08/24/25 08:25 08/24/25 08:36 Temperature Pulse Rate 66 65 Respiratory Rate 20 20 Blood Pressure Pulse Oximetry Oxygen Delivery Oxygen Flow Rate Intake/Output Intake/Output: Intake & Output 08/21/25 08/22/25 08/23/25 08/24/25 23:59 23:59 23:59 23:59 Intake Total 1462 2044 844 590 Output Total 1000 1550 1650 1200 Balance 217 698 -983 -046 Meds/Results Medications: Active Medications Generic Name Dose Route Start Last Admin Trade Name Freq PRN Reason Stop Dose Admin Acetaminophen 650 mg 08/17/25 10:40 08/24/25 05:10 Acetaminophen 325 Mg Tablet PO 650 mg Q4H PRN Administration Mild Pain (1-3) or Fever Hydrocodone Bitart/Acetaminophen 1 tab 08/17/25 10:40 08/23/25 21:00 Hydrocodone/Acetaminophen (*Crx) 5-325 Mg Tablet PO 1 tab Q4H PRN Administration Moderate Pain (4-6) Acetylcysteine 200 mg 08/22/25 14:00 08/24/25 08:25 Acetylcysteine 20% Inhal Soln 800 Mg/4 Ml Vial INHALATION 200 mg Q6HRT JESSIE Administration Al Hydrox/Mg Hydrox/Simethicone 30 ml 08/17/25 10:40 Mag Hydrox/Al Hydrox/Simeth 30 Ml Udc PO QID PRN Dyspepsia Albuterol 2 puff 08/17/25 14:38 Albuterol Sulfate (*Sp) Aerosol 1 Puff INHALATION Q6HRT PRN Shortness Of Breath Or Wheezing Albuterol/Ipratropium 3 ml 08/22/25 14:00 08/24/25 08:25 Ipratropium 0.5 Mg/Albuterol Sulfate 2.5 Mg (Base) Ampul.Neb 3 Ml INHALATION 3 ml Q6HRT JESSIE Administration Alprazolam 0.5 mg 08/17/25 14:38 08/22/25 08:38 Alprazolam (*Crx) 0.5 Mg Tablet PO 0.5 mg Q8H PRN Administration Anxiety Aspirin 81 mg 08/18/25 09:00 08/24/25 08:12 Aspirin 81 Mg Enteric Tablet PO 81 mg DAILY JESSIE Administration Atorvastatin Calcium 40 mg 08/17/25 21:00 08/23/25 20:57 Atorvastatin 40 Mg Tablet PO 40 mg HS JESSIE Administration Budesonide 0.5 mg 08/23/25 10:00 08/24/25 08:24 Budesonide Respule Neb 0.5 Mg/2 Ml Amp INHALATION 0.5 mg Q12HRT JESSIE Administration Buspirone HCl 10 mg 08/21/25 21:00 08/24/25 08:11 Buspirone Hcl 10 Mg Tablet PO 10 mg Q12HR JESSIE Administration Docusate Sodium 100 mg 08/20/25 11:23 Docusate Sodium 100 Mg Capsule PO Q12H PRN Constipation Enoxaparin Sodium 40 mg 08/17/25 11:00 08/24/25 08:12 Enoxaparin 40 Mg/0.4 Ml Syringe SUB-Q 40 mg DAILY JESSIE Administration Escitalopram Oxalate 10 mg 08/18/25 09:00 08/24/25 08:12 Escitalopram Oxalate 10 Mg Tablet PO 10 mg DAILY JESSIE Administration Ferrous Sulfate 325 mg 08/17/25 17:00 08/24/25 08:12 Ferrous Sulfate 325 Mg Tablet BY MOUTH 325 mg TID JESSIE Administration Furosemide 40 mg 08/17/25 11:00 08/24/25 08:13 Furosemide Inj 40 Mg/4 Ml Vial IV PUSH 40 mg BID JESSIE Administration Gabapentin 300 mg 08/17/25 22:00 08/24/25 05:10 Gabapentin 300 Mg Capsule PO 300 mg Q8HR JESSIE Administration Guaifenesin 1,200 mg 08/21/25 21:00 08/24/25 08:11 Guaifenesin 12 Hr 600 Mg Tabcr PO 1,200 mg Q12HR JESSIE Administration Levetiracetam 250 mg 08/17/25 21:00 08/24/25 08:11 Levetiracetam 250 Mg Tablet PO 250 mg Q12H JESSIE Administration Loratadine 5 mg 08/17/25 18:00 08/23/25 16:56 Loratadine 5 Mg Tablet PO 5 mg QPM JESSIE Administration Magnesium Hydroxide 30 ml 08/17/25 10:40 Magnesium Hydroxide Susp 30 Ml Udc PO DAILY PRN Constipation Melatonin 5 mg 08/17/25 21:00 08/23/25 21:00 Melatonin 5 Mg Tablet PO 5 mg HS JESSIE Administration Multivitamins Therapeutic 1 tablet 08/18/25 09:00 08/24/25 08:11 Multivitamins Therapeutic Tab (*Bkc) PO 1 tablet DAILY JESSIE Administration Ondansetron HCl 4 mg 08/17/25 10:40 08/22/25 21:05 Ondansetron Inj 4 Mg/2 Ml Vial IV PUSH 4 mg Q6H PRN Administration Nausea And Vomiting Pantoprazole Sodium 40 mg 08/18/25 09:00 08/24/25 08:12 Pantoprazole 40 Mg Tablet PO 40 mg QAM JESSIE Administration Potassium Chloride 20 meq 08/17/25 17:00 08/24/25 08:12 Potassium Chloride 20 Meq Er Tablet PO 20 meq BID JESSIE Administration Roflumilast 500 mcg 08/24/25 09:00 08/24/25 08:11 Roflumilast 500 Mcg Tablet PO 500 mcg DAILY JESSIE Administration Ropinirole HCl 1 mg 08/17/25 17:00 08/24/25 08:11 Ropinirole Hcl 1 Mg Tablet PO 1 mg TID JESSIE Administration Spironolactone 25 mg 08/18/25 09:00 08/24/25 08:12 Spironolactone 25 Mg Tablet PO 25 mg DAILY JESSIE Administration Radiology Results: ITS Impressions Chest X-Ray 08/17/25 07:42 IMPRESSION: 1. Suspect mild persistent right basilar airspace disease. Knee X-Ray 08/23/25 13:40 Impression: No acute fracture or malalignment. Labs Labs: Laboratory Results - last 24 hr 08/24/25 08/24/25 04:43 04:56 WBC 8.9 RBC 3.85 L Hgb 11.1 L Hct 36.6 L MCV 95.1 MCH 28.8 MCHC 30.3 L RDW 14.8 H Plt Count 242 MPV 10.1 Immature Gran % (Auto) 4.2 H Neut % (Auto) 72.0 Lymph % (Auto) 10.4 L Imperial % (Auto) 10.9 H Eos % (Auto) 2.1 Baso % (Auto) 0.4 Lymph # (Auto) 0.93 Imperial # (Auto) 1.0 H Eos # (Auto) 0.2 Baso # (Auto) 0.0 Abs Immat Gran (auto) 0.37 H Absolute Neuts (auto) 6.4 Absolute Nucleated RBC 0.020 H Nucleated RBC % 0.2 Puncture Site Right radial ABG pH 7.417 ABG pCO2 54.0 H ABG pO2 70.0 L ABG PO2/FiO2 Ratio 2.19 ABG HCO3 34.0 H ABG O2 Saturation 94.0 L ABG O2 Content 16.3 ABG Base Excess 8.0 A-a Gradient 95.0 Oxyhemoglobin 94.0 Carboxyhemoglobin 0.6 Methemoglobin 0.3 Reduced Hemoglobin 5.1 H Total Hemoglobin 12.3 O2 Delivery Device Other device O2 Liters/Min 3.0 FiO2 32 Sodium 138 Potassium 3.9 Chloride 103 Carbon Dioxide 36 H Anion Gap -1 L BUN 32 H Creatinine 1.09 H Estim Creat Clear Calc 36 Estimated GFR 49 L Glucose 78 Calcium 8.7 Magnesium 1.9 Total Bilirubin 0.6 AST 33 ALT 21 Alkaline Phosphatase 66 Total Protein 5.7 L Albumin 3.1 L
--- NOTE | 2025-08-24 12:24 | PM.CNOR ---
Assessment and Plan Assessment and plan (1) Infection of left knee: Code(s): M00.9 - Pyogenic arthritis, unspecified Status: Acute Plan The patient is a 75-year-old female who I was consulted to see with regards to her lacerations that she sustained about a week ago after falling that was treated in the emergency room at [facility]. The right knee appears to have stair strips and the left knee has a small punctate sort of a laceration or skin break over the anterior medial aspect of the left knee just inferior to the patella. She reports that she has the right knee being fine and is actually improving over time but the left knee has been slowly increasing in pain and very tender to the touch she says. She reports no fever or chills and she's had a pretty decent appetite since her admission Physical exam of the left knee is concerning for possible abscesses vs. cellulitis with no evidence of intra-articular involvement. At this point in time, I would recommend a Vanc IV for a period of 24 to 48 hours and follow the patient clinically. If she's doing well we may be able to send her home on something oral that also has some MRSA coverage. I would recommend following CRPs on a daily basis History of Present Illness HPI Consult date: 08/23/25 Chief complaint: Left knee infection Narrative: The patient is a 75-year-old female who I was consulted to see with regards to her lacerations that she sustained about a week ago after falling that was treated in the emergency room at [facility]. The right knee appears to have stair strips and the left knee has a small punctate sort of a laceration or skin break over the anterior medial aspect of the left knee just inferior to the patella. She reports that she has the right knee being fine and is actually improving over time but the left knee has been slowly increasing in pain and very tender to the touch she says. 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 Chronic obstructive pulmonary disease Chronic kidney disease, stage 3 Pulmonary embolism (11/2021) Small cell lung cancer Status post chemoradiotherapy. Dyslipidemia Diastolic dysfunction Surgical History Surgical History History of incisional hernia repair History of inguinal hernia repair History of heart artery stent History of cardiac catheterization History of left nephrectomy At age 3, done for unclear reasons. History of abdominal aortic aneurysm repair Family History Family History Sibling Family history of arthritis Lung transplant status, bilateral COPD (chronic obstructive pulmonary disease) Colon cancer Father Melanoma Mother No problems noted. Social History Social History Social History: [id number]: Isabela Ponce, friend. Code status: Full code. Smoking packs per day: 1 Smoking cigarettes per day: 20.0 Years smoked: 30 Smoking pack-years: 30.00 Smoking status: Former smoker Tobacco type: cigarettes Second hand tobacco smoke exposure: No Smoking end date: 09/14/05 Alcohol intake: never Alcohol use details: No alcohol since 2005. Substance use: never Substance use type: does not use Other substance usage details: one pack per day for 40 years Lack of Transportation: No Lack of Food: Never True Current Housing: I Have Housing Concerned About Future Housing: No Difficulty Paying Gas/Electric Bills: No Difficulty Paying for Meds: No Currently Unemployed: No Education: High School Diploma/GED Difficulty w/ Childcare or Family Care: No Additional living arrangements comments: Lives in assisted living. Wheelchair-bound due to right-sided deficits from prior CVA. Spiritual care concerns: No Meds Home Medications and Allergies Home Medications ?Medication ?Instructions ?Recorded ?Confirmed ?Type acetaminophen 500 mg capsule 500 mg PO Q6H PRN Pain (Scale 11/24/19 08/17/25 History Score 1-3) aspirin 81 mg tablet,delayed 81 mg PO DAILY 11/24/19 08/17/25 History release (Adult Aspirin Regimen) atorvastatin 40 mg tablet 40 mg PO HS 11/24/19 08/17/25 History levetiracetam 250 mg tablet 250 mg PO Q12H 11/24/19 08/17/25 History (Keppra) melatonin 5 mg capsule 5 mg PO HS 11/24/19 08/17/25 History potassium chloride 20 mEq 20 meq PO BID 11/24/19 08/17/25 History tablet,extended release multivitamin with folic acid 400 1 tablet PO DAILY 03/10/22 08/17/25 History mcg tablet (Daily-Annie (with folic acid)) pantoprazole 40 mg tablet,delayed 40 mg PO QAM #30 tabs 05/06/22 08/17/25 Rx release comp.stocking,knee,long,medium #12 ea 06/02/22 08/17/25 Rx furosemide 40 mg tablet (Lasix) 40 mg PO BID #60 tabs 06/02/22 08/17/25 Rx alprazolam 0.5 mg tablet 0.5 mg PO Q8-12H PRN Anxiety 06/29/23 08/17/25 History ferrous sulfate 325 mg (65 mg 325 mg PO TID 12/02/23 08/17/25 History iron) tablet Advair HFA 230 mcg-21 See Rx Instructions .Route 05/23/25 08/17/25 Rx mcg/actuation aerosol inhaler .COMPLEX #12 grams (fluticasone propion-salmeterol) albuterol sulfate 90 mcg/actuation 2 puff inhalation Q6H PRN 07/06/25 08/17/25 Rx aerosol inhaler shortness of breath or wheezing #8.5 grams escitalopram oxalate 10 mg tablet 10 mg PO DAILY 07/18/25 08/17/25 History levocetirizine 5 mg tablet 5 mg PO QPM 07/18/25 08/17/25 History ropinirole 2 mg tablet 1 mg PO TID 07/18/25 08/17/25 History ergocalciferol (vitamin D2) 1,250 1,250 mcg PO WEEKLY 07/30/25 08/17/25 History mcg (50,000 unit) capsule (Vitamin D2) gabapentin 300 mg capsule 300 mg PO TID 07/30/25 08/17/25 History spironolactone 25 mg tablet 25 mg PO DAILY 07/30/25 08/17/25 History (Aldactone) umeclidinium 62.5 mcg/actuation See Rx Instructions .Route 07/31/25 08/17/25 Rx blister powder for inhalation .COMPLEX #30 grams (Incruse Ellipta) mucus clearing device #10 ea 11/21/25 12/04/25 Rx guaifenesin 400 mg tablet (Mucus 400 mg PO DAILY 08/17/25 08/17/25 History Relief) Allergies Allergy/AdvReac Type Severity Reaction Status Date / Time Iodinated Contrast Media Allergy Unknown Rash Verified 08/17/25 13:55 latex Allergy Unknown Unknown Verified 08/17/25 13:55 adhesive tape AdvReac Rash Verified 08/17/25 13:55 nickel AdvReac Rash Verified 08/17/25 13:55 Vital Signs Vital Signs - 24 hr 08/23/25 13:31 08/23/25 13:40 08/23/25 14:00 Temperature 36.4 C Pulse Rate 74 73 59 L Respiratory Rate 20 20 17 Blood Pressure 132/58 L Pulse Oximetry 98 Oxygen Delivery Oxygen Flow Rate 08/23/25 20:00 08/23/25 20:30 08/23/25 20:30 Temperature Pulse Rate 71 Respiratory Rate 22 H Blood Pressure Pulse Oximetry 96 97 Oxygen Delivery Nasal Cannula Nasal Cannula Oxygen Flow Rate 1 1 08/23/25 20:41 08/23/25 21:04 08/23/25 22:09 Temperature 36.8 C Pulse Rate 78 81 60 Respiratory Rate 22 H 16 Blood Pressure 131/54 L Pulse Oximetry 96 95 Oxygen Delivery Oxygen Flow Rate 08/24/25 05:01 08/24/25 08:00 08/24/25 08:25 Temperature 36.4 C L Pulse Rate 62 Respiratory Rate 18 Blood Pressure 130/63 Pulse Oximetry 97 98 98 Oxygen Delivery Nasal Cannula Nasal Cannula Oxygen Flow Rate 1 1 08/24/25 08:25 08/24/25 08:36 Temperature Pulse Rate 66 65 Respiratory Rate 20 20 Blood Pressure Pulse Oximetry Oxygen Delivery Oxygen Flow Rate Exam Narrative: Examination of the patient's right knee shows a horizontal laceration inferior to the patella that is healing quite well with stair strips, minimal erythema, and no tenderness to palpation. Examining the patient's left knee shows a punctate (about a 1 cm x 1 cm) wound over the anterior medial aspect of the knee that is not draining. However surrounding erythema is noted with associated warmth and tenderness. She has no pain with passive range of motion of this knee and she has no obvious fluctuance of this knee with regards to intra-articular effusion. Const: General: cooperative, healthy appearing, comfortable, no acute distress, well developed, alert and awake Nutritional Appearance: average body habitus Orientation/consciousness: oriented to person, oriented to place and oriented to time Results Labs 08/24/25 04:56 08/24/25 04:56 Labs: Abnormal lab results 08/24/25 08/24/25 Range/Units 04:43 04:56 RBC 3.85 L (4.2-5.4) M/mm3 Hgb 11.1 L (12.0-15.0) g/dL Hct 36.6 L (37.0-47.0) % MCHC 30.3 L (32-36) g/dl RDW 14.8 H (11.5-14.5) % Immature Gran % (Auto) 4.2 H (0-0.5) % Lymph % (Auto) 10.4 L (18.3-44.2) % [place] % (Auto) 10.9 H (2.6-8.5) % [place] # (Auto) 1.0 H (0.1-0.6) K/mm3 Abs Immat Gran (auto) 0.37 H (0.00-0.031) K/mm3 Absolute Nucleated RBC 0.020 H (0.0-0.012) K/mm3 ABG pCO2 54.0 H (35.0-45.0) mmHg ABG pO2 70.0 L (80.0-100.0) mmHg ABG HCO3 34.0 H (22.0-26.0) mEq/l ABG O2 Saturation 94.0 L (95.0-100.0) % Reduced Hemoglobin 5.1 H (0-5.0) %THb Carbon Dioxide 36 H (22-30) mmol/L Anion Gap -1 L (4-12) mmol/L BUN 32 H (7-17) mg/dL Creatinine 1.09 H (0.7-1.0) mg/dL Estimated GFR 49 L (59 - ) Total Protein 5.7 L (6.3-8.2) g/dL Albumin 3.1 L (3.5-5.1) g/dL H & H 08/17/25 08/18/25 08/19/25 Range/Units 06:44 06:04 04:09 Hgb 11.3 L 12.1 10.3 L (12.0-15.0) g/dL Hct 37.5 41.6 34.3 L (37.0-47.0) % 08/20/25 08/21/25 08/23/25 Range/Units 04:10 04:25 05:32 Hgb 10.5 L 11.8 L 10.9 L (12.0-15.0) g/dL Hct 35.0 L 39.3 36.1 L (37.0-47.0) % 08/24/25 Range/Units 04:56 Hgb 11.1 L (12.0-15.0) g/dL Hct 36.6 L (37.0-47.0) % All other labs normal.
[2025-08-24 12:49] LABS: CRP < 0.5 mg/dL (<1.0)
--- NOTE | 2025-08-24 14:57 | P.PNIM_ITS ---
Assessment and Plan Assessment and Plan (1) Acute hypercapnic respiratory failure: Code(s): J96.02 - Acute respiratory failure with hypercapnia Status: Acute Assessment and Plan: Has history of gold grade 4, history of alpha-1 antitrypsin genotype mm * Appreciate pulmonology consultation and recommendations * Continue with supplemental O2 and BiPAP settings as recommended by pulmonology * Now on 2 liters oxygen which is her baseline * noted dyspnea has mostly resolved * Continue Prednisone, bronchodilators and buspar * Discussed with Dr Nava from Pulmonology who recommended overnight oximetry * for another overnight oximetry on 5 liters (2) Acute exacerbation of chronic obstructive pulmonary disease: Code(s): J44.1 - Chronic obstructive pulmonary disease with (acute) exacerbation Status: Acute Assessment and Plan: Recently hospitalized and discharged, now having worsening symptoms. [place] to be due to poor compliance with noninvasive ventilation in overuse of supplemental O2 * As above, appreciate pulmonology recommendations * Continue with supplemental O2 per protocol * S/p IV steroid, now Prednisone * Continue with DuoNebs, expectorants, flutter valve, long acting bronchodilators * Pulmonology following (3) Tachycardia: Code(s): R00.0 - Tachycardia, unspecified Status: Acute Assessment and Plan: resolved (4) Bilateral pneumonia: Qualifiers: Lung location: lower lobe of lung Pneumonia type: due to unspecified organism Qualified Code(s): J18.9 - Pneumonia, unspecified organism Code(s): J18.9 - Pneumonia, unspecified organism Status: Acute Assessment and Plan: Repeat CXR 08/17/2025 shows persistent airspace disease * Completed ceftriaxone and azithromycin * Continue supportive care measures as above * Urine antigens negative for strep pneumonia and Legionella (5) Diastolic CHF: Qualifiers: Heart failure chronicity: unspecified Qualified Code(s): I50.30 - Unspecified diastolic (congestive) heart failure Code(s): I50.30 - Unspecified diastolic (congestive) heart failure Status: Chronic Assessment and Plan: echocardiogram shows 40-45% left ventricular diastolic dysfunction * Appreciate cardiology consultation and recommendation * Continue Lasix 40 mg IV b.i.d., plan to wean as tolerated once she demonstrates improvement * When she is off IV diuresis, she will need to be transitioned to p.o. bumetanide 1 mg b.i.d. her Cardiology recommendations as oral Lasix had not been helping improve her symptoms. Will continue spironolactone 25 mg daily * Fluid restriction 1.5 L per day. Weigh patient daily * Continue compression stockings and leg elevation * Needs outpatient follow-up with Dr. Meyers 2 weeks following discharge (6) Laceration: Status: Acute Assessment and Plan: Developed right knee laceration following fall * Received wound care in ED. Wound was irrigated. 6 sutures placed. * suture is resorbable and strips will be removed in 3 days * wound care consulted (7) CKD (chronic kidney disease) stage 3, GFR 30-59 ml/min: Qualifiers: Chronic kidney disease stage 3 subtype: unspecified whether 3a or 3b Qualified Code(s): N18.30 - Chronic kidney disease, stage 3 unspecified Code(s): N18.30 - Chronic kidney disease, stage 3 unspecified Status: Acute Assessment and Plan: Chronic * Slight elevation in creatinine today to 1.27, likely due to IV diuresis * Monitor BMP closely, hold Lasix if any further increase (8) Iron deficiency anemia: Code(s): D50.9 - Iron deficiency anemia, unspecified Status: Acute Assessment and Plan: H&H remaining stable isat 13, and Hb 10.9 S/p 1000/1000 Venofer, discontinued PO iron once patient is replete with IV iron monitor (9) Hypertension: Qualifiers: Hypertension type: primary hypertension Qualified Code(s): I10 - Essential (primary) hypertension Code(s): I10 - Essential (primary) hypertension Status: Chronic Assessment and Plan: Blood pressure stable, 136/67 today * Continue furosemide and spironolactone * Monitor BP trends (10) Weakness: Code(s): R53.1 - Weakness Status: Acute Assessment and Plan: Progressive weakening with more frequent falls * Continue PT/OT during admission Plan Left knee effusion ? Infection vs hematoma Discussed with Ortho and he suspects infection and recommends Vanc and Rocephin Blood culture Ortho noted he will consider aspiration if no improvement monitor DVT prophylaxis on Sq Lovenox PT/OT Subjective Date/time seen: 08/24/25 14:57 Interval history: Comfortable at bedside Discussed with Ortho suspects left knee infusion, recommends Rocephin and Vancomycin Review of Systems Review of Systems: All systems reviewed & are unremarkable except as noted in HPI and below Exam Narrative: GENERAL: Comfortable, no acute distress HENMT: moist mucous membranes. Dentures in place. EYES: EOM intact b/l NECK: no lymphadenopathy RESPIRATORY: Scattered wheezing, labored breathing, supplemental oxygen 2L CARDIO: irregular rhythm, irregular rate GI: Abdomen distended SKIN/EXTREMITIES: no rashes, no edema, no redness or tenderness Const: General: comfortable HENMT: Face/Nose/Sinus: Normal nares present Mouth: Yes moist mucous membranes Eyes: General: appearance normal, both eyes and all related structures Pupils: Equal, round and reactive pupils present EOM: EOMs intact bilaterally Neck: Neck: supple Thyroid: thyroid normal Resp: Effort & Inspection: normal respiratory effort (on BiPap at this time. ) Auscultation: rhonchi left upper and right upper and diminished lung sounds bilateral in the lower lung cristina Cardio: Jugular venous distension: no JVD Rate: regular rate Rhythm: regular rhythm Heart sounds: S1 normal heart sound present and S2 normal heart sound present GI: Auscultation: normal bowel sounds : General: Yes bladder normal to palpation Bimanual exam- vagina & uterus: bladder normal to palpation Skin: General skin exam: erythema (to the bilateral lower extremities, worse on left than right), abrasion (left anterior knee), laceration and wounds noted (right knee, laceration with steristrip/suture.) Trauma: abrasion (left anterior knee) and laceration Wounds: wounds noted (right knee, laceration with steristrip/suture.) Neuro: Cranial nerves: Yes Equal, round and reactive pupils present Motor exam (neuro): Abnormal motor strength present (generalized weakness) Extrem: General: pedal edema bilaterally pitting and 1+ Psych: Mental Status: mental status grossly normal Affect: normal affect Objective Data Vital Signs Vital Signs: Vital Signs - 24 hr 08/23/25 20:00 08/23/25 20:30 08/23/25 20:30 Temperature Pulse Rate 71 Respiratory Rate 22 H Blood Pressure Pulse Oximetry 96 97 Oxygen Delivery Nasal Cannula Nasal Cannula Oxygen Flow Rate 1 1 08/23/25 20:41 08/23/25 21:04 08/23/25 22:09 Temperature 98.2 F Pulse Rate 78 81 60 Respiratory Rate 22 H 16 Blood Pressure 131/54 L Pulse Oximetry 96 95 Oxygen Delivery Oxygen Flow Rate 08/24/25 05:01 08/24/25 08:00 08/24/25 08:25 Temperature 97.5 F L Pulse Rate 62 Respiratory Rate 18 Blood Pressure 130/63 Pulse Oximetry 97 98 98 Oxygen Delivery Nasal Cannula Nasal Cannula Oxygen Flow Rate 1 1 08/24/25 08:25 08/24/25 08:36 08/24/25 13:38 Temperature Pulse Rate 66 65 88 Respiratory Rate 20 20 20 Blood Pressure Pulse Oximetry Oxygen Delivery Oxygen Flow Rate 08/24/25 13:48 08/24/25 14:00 Temperature 97.5 F L Pulse Rate 90 83 Respiratory Rate 20 16 Blood Pressure 111/49 L Pulse Oximetry 94 Oxygen Delivery Oxygen Flow Rate Intake/Output Intake/Output: Intake & Output 08/21/25 08/22/25 08/23/25 08/24/25 23:59 23:59 23:59 23:59 Intake Total 1462 2044 844 830 Output Total 1000 1550 1650 1200 Balance 462 494 -806 -370 Meds/Results Medications: Active Medications Generic Name Dose Route Start Last Admin Trade Name Freq PRN Reason Stop Dose Admin Acetaminophen 650 mg 08/17/25 10:40 08/24/25 05:10 Acetaminophen 325 Mg Tablet PO 650 mg Q4H PRN Administration Mild Pain (1-3) or Fever Hydrocodone Bitart/Acetaminophen 1 tab 08/17/25 10:40 08/23/25 21:00 Hydrocodone/Acetaminophen (*Crx) 5-325 Mg Tablet PO 1 tab Q4H PRN Administration Moderate Pain (4-6) Acetylcysteine 200 mg 08/22/25 14:00 08/24/25 13:37 Acetylcysteine 20% Inhal Soln 800 Mg/4 Ml Vial INHALATION 200 mg Q6HRT JESSIE Administration Al Hydrox/Mg Hydrox/Simethicone 30 ml 08/17/25 10:40 Mag Hydrox/Al Hydrox/Simeth 30 Ml Udc PO QID PRN Dyspepsia Albuterol 2 puff 08/17/25 14:38 Albuterol Sulfate (*Sp) Aerosol 1 Puff INHALATION Q6HRT PRN Shortness Of Breath Or Wheezing Albuterol/Ipratropium 3 ml 08/22/25 14:00 08/24/25 13:37 Ipratropium 0.5 Mg/Albuterol Sulfate 2.5 Mg (Base) Ampul.Neb 3 Ml INHALATION 3 ml Q6HRT JESSIE Administration Alprazolam 0.5 mg 08/17/25 14:38 08/22/25 08:38 Alprazolam (*Crx) 0.5 Mg Tablet PO 0.5 mg Q8H PRN Administration Anxiety Aspirin 81 mg 08/18/25 09:00 08/24/25 08:12 Aspirin 81 Mg Enteric Tablet PO 81 mg DAILY JESSIE Administration Atorvastatin Calcium 40 mg 08/17/25 21:00 08/23/25 20:57 Atorvastatin 40 Mg Tablet PO 40 mg HS JESSIE Administration Budesonide 0.5 mg 08/23/25 10:00 08/24/25 08:24 Budesonide Respule Neb 0.5 Mg/2 Ml Amp INHALATION 0.5 mg Q12HRT JESSIE Administration Buspirone HCl 10 mg 08/21/25 21:00 08/24/25 08:11 Buspirone Hcl 10 Mg Tablet PO 10 mg Q12HR JESSIE Administration Docusate Sodium 100 mg 08/20/25 11:23 Docusate Sodium 100 Mg Capsule PO Q12H PRN Constipation Enoxaparin Sodium 40 mg 08/17/25 11:00 08/24/25 08:12 Enoxaparin 40 Mg/0.4 Ml Syringe SUB-Q 40 mg DAILY JESSIE Administration Escitalopram Oxalate 10 mg 08/18/25 09:00 08/24/25 08:12 Escitalopram Oxalate 10 Mg Tablet PO 10 mg DAILY JESSIE Administration Ferrous Sulfate 325 mg 08/17/25 17:00 08/24/25 12:07 Ferrous Sulfate 325 Mg Tablet BY MOUTH 325 mg TID JESSIE Administration Furosemide 40 mg 08/17/25 11:00 08/24/25 08:13 Furosemide Inj 40 Mg/4 Ml Vial IV PUSH 40 mg BID JESSIE Administration Gabapentin 300 mg 08/17/25 22:00 08/24/25 14:06 Gabapentin 300 Mg Capsule PO 300 mg Q8HR JESSIE Administration Guaifenesin 1,200 mg 08/21/25 21:00 08/24/25 08:11 Guaifenesin 12 Hr 600 Mg Tabcr PO 1,200 mg Q12HR JESSIE Administration Levetiracetam 250 mg 08/17/25 21:00 08/24/25 08:11 Levetiracetam 250 Mg Tablet PO 250 mg Q12H JESSIE Administration Loratadine 5 mg 08/17/25 18:00 08/23/25 16:56 Loratadine 5 Mg Tablet PO 5 mg QPM JESSIE Administration Magnesium Hydroxide 30 ml 08/17/25 10:40 Magnesium Hydroxide Susp 30 Ml Udc PO DAILY PRN Constipation Melatonin 5 mg 08/17/25 21:00 08/23/25 21:00 Melatonin 5 Mg Tablet PO 5 mg HS JESSIE Administration Multivitamins Therapeutic 1 tablet 08/18/25 09:00 08/24/25 08:11 Multivitamins Therapeutic Tab (*Bkc) PO 1 tablet DAILY JESSIE Administration Ondansetron HCl 4 mg 08/17/25 10:40 08/22/25 21:05 Ondansetron Inj 4 Mg/2 Ml Vial IV PUSH 4 mg Q6H PRN Administration Nausea And Vomiting Pantoprazole Sodium 40 mg 08/18/25 09:00 08/24/25 08:12 Pantoprazole 40 Mg Tablet PO 40 mg QAM JESSIE Administration Potassium Chloride 20 meq 08/17/25 17:00 08/24/25 08:12 Potassium Chloride 20 Meq Er Tablet PO 20 meq BID JESSIE Administration Roflumilast 500 mcg 08/24/25 09:00 08/24/25 08:11 Roflumilast 500 Mcg Tablet PO 500 mcg DAILY JESSIE Administration Ropinirole HCl 1 mg 08/17/25 17:00 08/24/25 12:07 Ropinirole Hcl 1 Mg Tablet PO 1 mg TID [facility] Administration Spironolactone 25 mg 08/18/25 09:00 08/24/25 08:12 Spironolactone 25 Mg Tablet PO 25 mg DAILY JESSIE Administration Vancomycin HCl 1 each 08/24/25 14:55 Vancomycin Pharmacist To Dose IVPB PER PROTOCOL [facility] Radiology Results: ITS Impressions Chest X-Ray 08/17/25 07:42 IMPRESSION: 1. Suspect mild persistent right basilar airspace disease. Knee X-Ray 08/23/25 13:40 Impression: No acute fracture or malalignment. Labs Labs: Laboratory Results - last 24 hr 08/24/25 08/24/25 04:43 04:56 WBC 8.9 RBC 3.85 L Hgb 11.1 L Hct 36.6 L MCV 95.1 MCH 28.8 MCHC 30.3 L RDW 14.8 H Plt Count 242 MPV 10.1 Immature Gran % (Auto) 4.2 H Neut % (Auto) 72.0 Lymph % (Auto) 10.4 L [place] % (Auto) 10.9 H Eos % (Auto) 2.1 Baso % (Auto) 0.4 Lymph # (Auto) 0.93 [place] # (Auto) 1.0 H Eos # (Auto) 0.2 Baso # (Auto) 0.0 Abs Immat Gran (auto) 0.37 H Absolute Neuts (auto) 6.4 Absolute Nucleated RBC 0.020 H Nucleated RBC % 0.2 Puncture Site Right radial ABG pH 7.417 ABG pCO2 54.0 H ABG pO2 70.0 L ABG PO2/FiO2 Ratio 2.19 ABG HCO3 34.0 H ABG O2 Saturation 94.0 L ABG O2 Content 16.3 ABG Base Excess 8.0 A-a Gradient 95.0 Oxyhemoglobin 94.0 Carboxyhemoglobin 0.6 Methemoglobin 0.3 Reduced Hemoglobin 5.1 H Total Hemoglobin 12.3 O2 Delivery Device Other device O2 Liters/Min 3.0 FiO2 32 Sodium 138 Potassium 3.9 Chloride 103 Carbon Dioxide 36 H Anion Gap -1 L BUN 32 H Creatinine 1.09 H Estim Creat Clear Calc 36 Estimated GFR 49 L Glucose 78 Calcium 8.7 Magnesium 1.9 Total Bilirubin 0.6 AST 33 ALT 21 Alkaline Phosphatase 66 C-Reactive Protein < 0.5 Total Protein 5.7 L Albumin 3.1 L Quality VTE Prophylaxis VTE prophylaxis: pharmacologic ordered
[2025-08-24] MEDS: cefTRIAXone 1 GM in SODIUM CHLORIDE 0.9% IV 50 ML 100 ML IVPB (16:23)
[2025-08-24] MEDS: LORATADINE 5 MG TABLET PO (16:58)
[2025-08-24] MEDS: VANCOMYCIN 1,750 MG/NS 500 ML 1,750 MG/500 ML BAG 250 MG IVPB (17:07)
[2025-08-24] MEDS: IRON SUCROSE COMPLEX 400 MG, IRON SUCROSE COMPLEX 100 MG in SODIUM CHLORIDE 0.9% IV 250 ML 78.57 MG IVPB (19:25)
[2025-08-24] MEDS: ATORVASTATIN 40 MG TABLET PO (20:41)
[2025-08-24] MEDS: HYDROcodone/acetaminophen (*CRX) 5-325 MG TABLET 1 TAB PO (20:50)
[2025-08-24] MEDS: MELATONIN 5 MG TABLET PO (22:11)
[2025-08-25] VITALS (16 sets, daily range): BP systolic 117–137; BP diastolic 55–61; PULSE 72–94; RESP 16–20; TEMP 35.9–36.2; O2SAT 94–100
--- NOTE | 2025-08-25 03:32 | PCRCNOTE ---
0200 neb tx was omitted due to oximetrystudy
[2025-08-25 05:21] LABS: Hematocrit 37.6 % (37.0-47.0); Hemoglobin 11.3 g/dL (12.0-15.0); Immature Granulocyte Percent A 4.8 % (0-0.5); Lymphocytes Absolute Auto 0.99 K/mm3 (0.9-3.2); Mean Corpuscular HGB Conc 30.1 g/dl (32-36); Mean Corpuscular Hemoglobin 28.6 pg (26-34); Mean Corpuscular Volume 95.2 fl (80-100); Nucleated Red Blood Cells Absolute Auto 0.000 K/mm3 (0.0-0.012); Nucleated Red Blood Cells Perc 0.0 % (0.0-0.2); Platelet Count Result 257 k/mm3 (150-375); Red Blood Count 3.95 M/mm3 (4.2-5.4); White Blood Count 8.8 K/mm3 (4.5-10.0)
[2025-08-25] MEDS: GABAPENTIN 300 MG CAPSULE PO ×3 (05:57→21:20)
[2025-08-25 06:22] LABS: Alanine Aminotransferase 21 U/L (6-35); Albumin Level 3.1 g/dL (3.5-5.1); Alkaline Phosphatase 68 U/L (38-126); Aspartate Amino Transferase 24 U/L (14-36); Bilirubin,Total 0.6 mg/dL (0.2-1.3); Blood Urea Nitrogen 27 mg/dL (7-17); Calcium 9.0 mg/dL (8.4-10.2); Chloride 101 mmol/L (98-107); Estimated CRCL calculation 36 ml/min; Estimated Glomerular Filt Rate 49; Glucose 75 mg/dL (65-110); Magnesium 1.8 mg/dL (1.6-2.3); Potassium 3.6 mmol/L (3.4-5.0); Sodium 139 mmol/L (137-145); Total Protein 5.7 g/dL (6.3-8.2)
[2025-08-25 06:30] LABS: Anion Gap -1 mmol/L (4-12); Carbon Dioxide 39 mmol/L (22-30)
[2025-08-25 07:31] LABS: NT Pro B Type Natriuretic Pept 1380 pg/mL (19.9-100)
[2025-08-25] MEDS: IPRATROPIUM 0.5 MG/ALBUTEROL SULFATE 2.5 MG (BASE) AMPUL.NEB 3 ML INHALATION ×4 (08:13→20:20)
[2025-08-25] MEDS: ACETYLCYSTEINE 20% INHAL SOLN 800 MG/4 ML VIAL 200 MG INHALATION (08:14)
[2025-08-25] MEDS: BUDESONIDE RESPULE NEB 0.5 MG/2 ML AMP INHALATION ×2 (08:14→20:19)
[2025-08-25] MEDS: ESCITALOPRAM OXALATE 10 MG TABLET PO (08:55)
[2025-08-25] MEDS: guaiFENesin 12 HR 600 MG TABCR 1200 MG PO ×2 (08:55→21:22)
[2025-08-25] MEDS: POTASSIUM CHLORIDE 20 MEQ ER TABLET PO ×2 (08:55→17:35)
[2025-08-25] MEDS: SPIRONOLACTONE 25 MG TABLET PO (08:56)
[2025-08-25] MEDS: ROFLUMILAST 500 MCG TABLET PO (08:56)
[2025-08-25] MEDS: PANTOPRAZOLE 40 MG TABLET PO (08:56)
[2025-08-25] MEDS: ASPIRIN 81 MG ENTERIC TABLET PO (08:56)
[2025-08-25] MEDS: MULTIVITAMINS THERAPEUTIC TAB (*BKC) 1 TABLET PO (08:56)
[2025-08-25] MEDS: HYDROcodone/acetaminophen (*CRX) 5-325 MG TABLET 1 TAB PO ×2 (08:56→21:22)
[2025-08-25] MEDS: FERROUS SULFATE 325 MG TABLET BY MOUTH ×3 (08:56→17:34)
[2025-08-25] MEDS: FUROSEMIDE INJ 40 MG/4 ML VIAL IV PUSH ×2 (08:57→17:35)
[2025-08-25] MEDS: ENOXAPARIN 40 MG/0.4 ML SYRINGE SUB-Q (08:57)
--- NOTE | 2025-08-25 09:27 | PM.PNPUL ---
Progress Note: A&P Assessment and Plan (1) COPD exacerbation: Code(s): J44.1 - Chronic obstructive pulmonary disease with (acute) exacerbation Status: Acute Assessment and Plan: GOLD grade 4 group E COPD Patient with tobacco use (35 PY, quit 2003), Alpha 1 anti trypsin genotype MM. PFTs 11/28/2022 with FEV1 0.59 L, 26%, no bronchodilator response, airtrapping, decreased DLCO when corrected for alveolar volume, severe apical panlobular emphysema on CT scan of the neck from 03/04/2019 and chest on 08/13/2022, hypoxic respiratory failure on 2 L NC rest and activity since 2020, hypercarbic respiratory failure with ABG on 2 L was 7.42/56/47 and started on noninvasive ventilation with 4 L bleed in on 12/2022. Unable to tolerate noninvasive ventilation due to mask discomfort despite multiple mask trials. Wheelchair bound after she had a stroke in 2013 with dyspnea on exertion with wheelchair transfers and pivots Echocardiogram from 06/06/2022 with LVEF 55-60, grade 1 diastolic dysfunction, Normal right ventricular size and function. Normal right atrial size. No tricuspid regurg to measure RVSP. Inpatient COPD exacerbation and pneumonia 09/15/2022. 09/15/2022 white blood cell count 18.8, eosinophils 1.3%=244/uL. 08/22/2022 white blood cell count 10.5, eosinophils 3.1% equals 326/uL. Last inpatient hospitalization 06/29/2023 (rhinoviral infection). 08/04/2025: Home O2 assessment: Rest room air saturation 88%. Rest nasal cannula 1 L saturation 92%. Exercise nasal cannula 1 L saturation 91%. Patient is nonambulatory and did exercises with the feet. Patient requires 1 L oxygen at rest and with activity. 08/20/25: Long standing advanced COPD, FEV1 much less than a liter in 2018, on Advair 230/21 and umeclidinium / Incruse 62.5 once a day; Isabela told me that her insurance is switching her to Spiriva on Sep 14, so she won't be able to take Incruse any longer. She has end stage COPD, and with increased eosinophils, she may benefit from Dupixent as add-on therapy. This is not for acute decompensations, only maintenance. This is not available in the [facility] setting as it is for maintanence, not exacerbations. 08/21/2025: Overall patient has shortness of breath at rest, shortness of breath with any activity, she has cough and the phlegm gets stuck in her throat. When I enter the room she was on 2.5 L with saturation 99%. I decreased her 1 L nasal cannula her saturations were 92%. She is afebrile. White blood cell count 9.7, creatinine 1.27, BNP has increased from 1200 on 08/19/2020 5-1810 today. Patient still has difficulty tolerating the noninvasive ventilation and has panic attacks. Plan: patient continues to deteriorate and never recovered from her previous hospital discharge on 08/04/2025. I will treat for reversible causes for shortness of breath at rest. I have treating for COPD exacerbation, pneumonia and fluid overload. I will decrease her Solu-Medrol to 20 mg q.6 hours, I will continue DuoNebs q.i.d.. I will discontinue Advair while she is on systemic steroids and DuoNebs q.i.d. I will increase her guaifenesin to 1200 mg p.o. q.i.d.. Continue ceftriaxone and azithromycin, both day 5. Continue Lasix 40 IV b.i.d.. patient with multiple exacerbations and I will add Daliresp 250 q.day. Patient has end-stage COPD now with 2 admissions in the last 4 weeks. She never recovered and has continued deterioration. I have told the patient and her caregiver that [facility] may help her and that she may wish to consider gather information from a hospice team. 08/22/2025: Overall the patient feels the same. She has rest shortness of breath. She did sit up in the chair. She has the same cough and phlegm that is minimal. No hemoptysis. When I enter the room she was on 2 L nasal cannula saturation 99%. I 2 decreased her to 1 L nasal cannula her saturations were 98%. Patient states she has phlegm that she cannot expectorate. Patient wore home noninvasive ventilator with the 100 over the mouth under the nose mask and said she wore this for a few hours and was able to get some sleep. Plan: continue to treat 1st possible COPD exacerbation. Continue Solu-Medrol 20 q.6, DuoNebs q.6, I will add Mucomyst as she has difficulty expectorating q.6. She has completed 5 days of azithromycin will continue ceftriaxone, day 6 of 7. She is on Lasix 40 IV b.i.d.. Continue Daliresp 250 q.day. 08/23/2025: Overall the patient tells me she is better today. She says she is 70% back to her baseline. She sat in the chair yesterday for 8 hours. She still has some shortness of breath sitting and with activity. She denies cough. She still is unable to expectorate but feels she has less phlegm overall. She has minimal epistaxis. She is afebrile. On 1 L nasal cannula saturations are 94%. White blood cell count 8.5, creatinine 1.23, BNP has improved from 1810 on 08/21/2025 to 1560 today. Plan: Today is day 7 of steroids and she has no wheezing and will discontinue systemic steroids as she has laceration on her right knee and hematoma on her left knee. I will add budesonide 500 mcg b.i.d.. Continue DuoNebs and Mucomyst q.6 hours. Today is day 7 of 7 of ceftriaxone. Will increase Daliresp to 500 q.day. she is on Lasix 40 IV b.i.d. and her BNP has improved. 08/24/2025: Patient continues to improve. States she is 80% back to her normal. She has no rest shortness of breath but continues with dyspnea on exertion. Her cough is better and back to her normal. She is now expectorating phlegm. She has some epistaxis. She is on 1 L nasal cannula saturations 96%. She is afebrile. White blood cell count 8.9, creatinine 1.09. 08/25/2025: Patient states she is breathing normally at rest. She has dyspnea on exertion when she moves from the bed to the chair. Her cough is back to her normal with a little bit of clear phlegm. Overall she states her breathing is at her baseline. She is on 1 L nasal cannula saturations 98%. White blood cell count 8.8, creatinine 1.09, BNP has improved from 1560 on 08/23/2025 to 1380 today. Chest x-ray today is clear with no focal infiltrates or effusions. Yesterday she was -680 mL. Cumulative since admission she is positive 1.6 L. Her weight today is 68.6. Plan: From a pulmonary perspective patient is ready to be discharged to [facility] on these pulmonary medications: DuoNebs q.i.d. Budesonide 500 mcg nebulized b.i.d. Daliresp 500 mcg q.day Guaifenesin 1200 mg p.o. b.i.d. Loratadine 5 mg p.o. q.p.m. Diuretics per hospitalist team. Currently the patient is on 40 IV b.i.d.. Her weight is 68.6 kg. BNP improved from 1810 to 1380 Oxygen pursed on swing bed protocol. Currently she is on 1 L at rest. When she naps or sleeps: Noninvasive ventilation with AVAPS AE mode through via med: rate 14, tidal volume 500, minimum EPAP 5, maximum EPAP 15, minimum pressure support 10, maximum pressure support 20 and 5 L bleed in. Follow-up in the Pulmonary Clinic 4 weeks. I gave her our business card and I informed our hay baler. Discussed with Dr. Zacarias, will sign off, call with questions. (2) Acute and chronic respiratory failure, unspecified whether with hypoxia or hypercapnia: Qualifiers: Respiratory failure complication: hypoxia and hypercapnia Qualified Code(s): J96.21 - Acute and chronic respiratory failure with hypoxia; J96.22 - Acute and chronic respiratory failure with hypercapnia Code(s): J96.20 - Acute and chronic respiratory failure, unspecified whether with hypoxia or hypercapnia Status: Acute Assessment and Plan: Acute and chronic respiratory failure, unspecified whether with hypoxia or hypercapnia Status: Acute Assessment and Plan: Worsening compared to discharge on Aug 04, anxiety contributed to panic, poor choices, not using NIV, over using O2, more falls with lower leg injuries treated at ER and Dr Donahue's office. She may be at end stage, however O2 requirement is low. She has low exerzize toelrance due to stroke, right hemiplegia. Does not appear to have a new pneumonia. Some of this is destabilized cardiac function, EF 40%, has diastolic an systolic dysfunction, and the large ventral hernia is not helping. 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 08/04/2025: Home O2 assessment: Rest room air saturation 88%. Rest nasal cannula 1 L saturation 92%. Exercise nasal cannula 1 L saturation 91%. Patient is nonambulatory and did exercises with the feet. Patient requires 1 L oxygen at rest and with activity. 08/21/25: patient tolerates noninvasive ventilation poorly. Last admission she did tolerate her home noninvasive ventilator through via [facility] with AVAPS AE settings rate of 14, tidal volume 500, EPAP minimum 5, EPAP maximum 15, pressure support minimum 10, pressure support maximum 25 with 2 L bleed in. last admission on 08/04/25: Patient was using and over the mouth under the nose mask And said that she slept for 3 hours and feels like this was greatly improved. Patient had an overnight oximetry on these settings with recording duration of 4 hours and 18 minutes, average saturation 93%, low saturation 82%, time with saturation less than or equal to 88% was 31 minutes. Oxygen desaturation index 8.9. Patient had ABG prior to removal with a pH of 7.40/50/59. Current AVAPS AE settings with under the nose over the mouth mask provide adequate ventilation. Overnight oximetry on 32% FiO2 on 08/01 provided adequate oxygenation and I will discharge her on 3 L bleed in at night. plan: Patient is brought in her home noninvasive ventilator with the over the mouth under the nose mask and will place her on these settings with 3 L bleed in tonight to see if she can tolerate this. Patient has significant anxiety and I will increase her BuSpar to 10 mg p.o. b.i.d.. 08/22/2025: Patient wore home noninvasive ventilator with the 100 over the mouth under the nose mask and said she wore this for a few hours and was able to get some sleep. Plan: Continue her home noninvasive ventilator with the AVAPS AE settings and an over the mouth under the nose mask as tolerated during the day p.r.n. and at night. Later in the day obtained a download from [facility] from 07/20/2025 to 08/22/2025. Patient is on of vivo 45 machine with the AVAPS AE settings of: rate 14, tidal volume 500, minimum EPAP 5, maximum EPAP 15, minimum pressure support 10, maximum pressure support 20 and 3 L bleed in. Usage days greater than or equal to 4 hours was 6%. Total usage days 26%. Average usage hours is 2 hours and 53 minutes. Average EPAP 10. Average peak pressure 20. Average tidal volume 487. Average leak 75. AHI 14. I interpret this download as very poor compliance, high leak with high AHI and adequate tidal volume. 08/23/2025: Patient tells me she wore her home noninvasive ventilator last night with 3 L bleed in for the whole night. She says it was a little bit rough but she thinks she got some sleep because she does not remember being awake all night. At assisted living there is no assistance to help her put the mask on and we practiced and she was able to successfully put her over the mouth under the nose mask on, turn her machine on. She had a large leak and we adjusted the mask and she said this felt better and was giving her better tidal volumes. Plan: Patient will continue noninvasive ventilation with the AVAPS AE mode and settings as above. She is tolerating and over the mouth under the nose mask. I will obtain an overnight oximetry on these settings with 3 L bleed in and an ABG prior to removal. 08/24/25: Patient wore her home noninvasive ventilation with the settings above and 3 L bleed in. Patient said she did tolerate the mask and does not know if she slept. Patient had an ABG prior to removal of the mask of 7.42/54/70. Overnight oximetry recording duration 7 hours and 2 minutes. Average saturation 87%. Low saturation 78%. Time with saturation less than or equal to 88% was 277 minutes. Oxygen desaturation index 17.8. Plan: Current AVAPS AE settings provide adequate ventilation. Patient with low saturations on 3 L nasal cannula will discharge on 5 L nasal cannula bleed in. 08/25/2025: Patient wore her home noninvasive ventilator with 5 L bleed in and said that she did well but was having frequent trouble with the mask leaking and waking her up and having to be readjusted. Patient had an overnight oximetry on 5 L nasal cannula with recording duration of 5 hours and 12 minutes. average saturation 93%. Low saturation 78%. Time with saturation less than or equal to 88% was 21 minutes. Oxygen desaturation index 8. Plan: suspect her time with saturation less than 88% was related to mask leak and will continue 5 L nasal cannula at night. Subjective Date/time seen: 08/25/25 09:27 Interval history: Patient was seen August 18, 2025, at 18:55, room 231 Her friend and POA for [facility], Isabela, is at the bedside, assists with the history. NEW: Teresa Levi is a 75-year-old woman with COPD knqu0tme in our clinic, sees Dr Nava, was admitted Jul 30 to , went home, did not use BiPAP at [facility]. She was admitted with increased shortness of breath, worsening balance in her wheelchair running into things causes gashes on her lower legs with trips to the ER. She banged up her left knee, left lateral leg, last admission she was on AVAPS, and although she was not wearing it, AVAPS would be a better option for her because of the indication, chronic hypercapneic respiraotry failure. She does not have obesity hypoventilation. She is using a hybrid mask at home, under the nose which is more comfortable comared to over the nose fidelina with her claustrophobia. recurrent hypercapnic respiratory failure, acute exacerbation of COPD, bilateral infiltrates consistent with pneumonia, dCHF, diuretics adjusted, and CKD, HTN, gout, lung cancer 10 yeas ago. She was here less than a month ago. She does not use BiPAP at home due to claustrophobia, takes alprazolam 0.5 mg HS to assist with sleep onset, also makes trying PAP easier, She uses O2 at home. At discharge, she was on be on O2 at 1 L, increase with exertion. She was not using her PAP machine at [facility], was sleeping in a recliner, turned O2 up when she felt short of breath. She has been falling frequently with injuries to lower legs, and has a large injury to the LUE after a tourniquet placed while in an ambulance. She had one of the gashes in her lower leg sewn together by Dr Donahue. She is on 2 L, sat is 93%.Admitted Dec 4, wbc 7.1 k with mild increase in eosinophils. She has had high eosinophils on at least 3 occasions, now 400 this admission. She was admitted July 30 through the , last month for an acute exacerbation of COPD, acute hypercapnic hypoxemic respiratory failure and right middle lobe pneumonia.She went home, did not use her NIV, slept in recliner, turne O2 higher than needed, was falling out of wheelchair and running into things, gashing her little legs. 08/21/2025: Overall patient has shortness of breath at rest, shortness of breath with any activity, she has cough and the phlegm gets stuck in her throat. When I enter the room she was on 2.5 L with saturation 99%. I decreased her 1 L nasal cannula her saturations were 92%. She is afebrile. White blood cell count 9.7, creatinine 1.27, BNP has increased from 1200 on 08/19/2025 to 1810 today. Patient still has difficulty tolerating the noninvasive ventilation and has panic attacks. BuSpar increased to 10 mg p.o. b.i.d.. Daliresp 250 added. 08/22/2025: Overall the patient feels the same. She has rest shortness of breath. She did sit up in the chair. She has the same cough and phlegm that is minimal. No hemoptysis. When I enter the room she was on 2 L nasal cannula saturation 99%. I 2 decreased her to 1 L nasal cannula her saturations were 98%. Patient states she has phlegm that she cannot expectorate. Patient wore home noninvasive ventilator with the 100 over the mouth under the nose mask and said she wore this for a few hours and was able to get some sleep. Later in the day obtained a download from [facility] from 07/20/2025 to 08/22/2025. Patient is on of vivo 45 machine with the AVAPS AE settings of: rate 14, tidal volume 500, minimum EPAP 5, maximum EPAP 15, minimum pressure support 10, maximum pressure support 20 and 3 L bleed in. Usage days greater than or equal to 4 hours was 6%. Total usage days 26%. Average usage hours is 2 hours and 53 minutes. Average EPAP 10. Average peak pressure 20. Average tidal volume 487. Average leak 75. AHI 14. I interpret this download as very poor compliance, high leak with high AHI and adequate tidal volume. 08/23/2025: Overall the patient tells me she is better today. She says she is 70% back to her baseline. She sat in the chair yesterday for 8 hours. She still has some shortness of breath sitting and with activity. She denies cough. She still is unable to expectorate but feels she has less phlegm overall. She has minimal epistaxis. She is afebrile. On 1 L nasal cannula saturations are 94%. White blood cell count 8.5, creatinine 1.23, BNP has improved from 1810 on 08/21/2025 to 1560 today. Patient tells me she wore her home noninvasive ventilator last night with 3 L bleed in for the whole night. She says it was a little bit rough but she thinks she got some sleep because she does not remember being awake all night. At assisted living there is no assistance to help her put the mask on and we practiced and she was able to successfully put her over the mouth under the nose mask on, turn her machine on. She had a large leak and we adjusted the mask and she said this felt better and was giving her better tidal volumes. 08/24/2025: Patient continues to improve. States she is 80% back to her normal. She has no rest shortness of breath but continues with dyspnea on exertion. Her cough is better and back to her normal. She is now expectorating phlegm. She has some epistaxis. She is on 1 L nasal cannula saturations 96%. She is afebrile. White blood cell count 8.9, creatinine 1.09. Patient wore her home noninvasive ventilation with the settings above and 3 L bleed in. Patient said she did tolerate the mask and does not know if she slept. Patient had an ABG prior to removal of the mask of 7.42/54/70. Overnight oximetry recording duration 7 hours and 2 minutes. Average saturation 87%. Low saturation 78%. Time with saturation less than or equal to 88% was 277 minutes. Oxygen desaturation index 17.8. Seen by Orthopedic surgery and started on vancomycin and ceftriaxone for possible left leg cellulitis. 08/25/2025: Patient states she is breathing normally at rest. She has dyspnea on exertion when she moves from the bed to the chair. Her cough is back to her normal with a little bit of clear phlegm. Overall she states her breathing is at her baseline. She is on 1 L nasal cannula saturations 98%. White blood cell count 8.8, creatinine 1.09, BNP has improved from 1560 on 08/23/2025 to 1380 today. Chest x-ray today is clear with no focal infiltrates or effusions. Yesterday she was -680 mL. Cumulative since admission she is positive 1.6 L. Her weight today is 68.6. Patient wore her home noninvasive ventilator with 5 L bleed in and said that she did well but was having frequent trouble with the mask leaking and waking her up and having to be readjusted. Patient had an overnight oximetry on 5 L nasal cannula with recording duration of 5 hours and 12 minutes. average saturation 93%. Low saturation 78%. Time with saturation less than or equal to 88% was 21 minutes. Oxygen desaturation index 8. DATA * Date 08/01253:48 am discharged 258:59 :06 a.m. pH 7.41 7.40 7.39 7.37 pCO2 60 50 63 67 pO2 83 58.5 79 66.8 HCO3 37.8 30.5 38 38 sat 96% 90% 95% 92% CarboxyHgb FiO2 40% 28% 32% 30% O2 delivery BiPAP IPAP 25 16 EPAP 8 7 cm 8 08/24/2025: Patient wore her home noninvasive ventilation with the settings above and 3 L bleed in. Patient said she did tolerate the mask and does not know if she slept. Patient had an ABG prior to removal of the mask of 7.42/54/70. Overnight oximetry recording duration 7 hours and 2 minutes. Average saturation 87%. Low saturation 78%. Time with saturation less than or equal to 88% was 277 minutes. Oxygen desaturation index 17.8. * 08/17/25, CXR : Cardiomediastinal silhouette normal size and configuration. Mild right basilar airspace disease persists. No acute bony abnormality. Osteopenia. IMPRESSION: Suspect mild persistent right basilar airspace disease. {THIS IS WHERE SHE HAD INFILTRATES in [place]} * 08/17/2025 white blood cell count 8.3 k with 4.5% eosinophils, - absolute eosinophil count 400 which is increased. Also had elevated eosinophils on June 29, 2023, 740 eosinophils, June 21, 2023 with 500 eosinophils. 07/31/25: Echo Summary 1. Technically suboptimal study due to poor sonographic images. 2. Definity contrast administered improved wall motion interpretation. 3. Left ventricular chamber dimension is moderately enlarged. 4. Left ventricular systolic function is moderately globally reduced, estimated at 40-45. 5. The left ventricular diastolic function is grade I diastolic dysfunction. 6. No pulmonary hypertension, estimated pulmonary arterial systolic pressure is 19 mmHg. Right Ventricle Right ventricular chamber dimension is normal. Right ventricular systolic function is normal. Left Atria Left atrial chamber dimension is normal. Right Atria Right atrial chamber dimension is normal. 07/31/25: EXAMINATION:CT diagnostic chest wo con INDICATION: Pneumonia COPD COMPARISON: None. FINDINGS: Patchy consolidative changes are developing in the medial segment of the right middle lobe. Mild scattered fibrotic and atelectatic appearing changes throughout the lower lobes bilaterally. Moderately severe centrilobular emphysematous changes especially in the upper lobes. No new nodules or masses seen. Heart and great vessels stable in size with no cardiomegaly or large pericardial effusion/bulky lymphadenopathy. Coronary artery calcification and/or stenting. 50% compression deformity of T6 similar to the previous exam. IMPRESSION: Small area of consolidation in the medial segment of the right middle lobe consistent with early pneumonia. Finding should be followed radiographically until clear. 01/29/25 - Overnight oximetry on noninvasive ventilator with 4 L bleed in. Recording duration 7 hours and 53 minutes. Basal saturation 97.5. Low saturation 94%. High saturation 99%. Time with saturation less than or equal to 88% was 0 minutes. Oxygen desaturation 0. 4 L provides adequate oxygenation. 11/06/23 - CXR - The lungs are clear, without evidence of focal consolidation or pleural effusion. Suspected COPD. Cardiomediastinal silhouette is within normal limits. Bones and soft tissues are unremarkable. 07/03/2023: Home O2 assessment: Rest room air saturations 83%. Rest nasal cannula 2 L saturation 87%. Rest nasal cannula 3 L saturation 88%. Rest nasal cannula 4 L saturation 91%. Exercise nasal cannula 4 L, saturations 88%. Exercise nasal cannula 5 L saturation 90%. Patient requires 4 L at rest and 5 with activity. 07/02/24: Patient wore her home noninvasive ventilator in the hospital, with an AVAPS-AE mode with a rate of 12, tidal volume 400, EPAP minimum 5, maximum EPAP 10, minimal pressure support 10, maximal pressure support 15, rise time of 3 with 4 L bleed in and did well.? Patient had an overnight oximetry with recording time of 7 hours and 31 minutes, average saturation 92%.? Low saturation 88%.? Time with saturation less than or equal to 88% was 1 minute, oxygen desaturation index 0.4.? Patient had a blood gas prior to removal of this machine with pH of 7.44/48/70.? These settings provide adequate oxygenation and ventilation.? 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 06/30/2023: EXAMINATION: CTA chest PE protocol ?INDICATION: Hypoxia. ?COMPARISON: Chest CT 08/12/2022 ?FINDINGS: There is severe emphysema. There is mild atelectasis bilaterally, worst in the lower lobes. No pleural effusion. The heart size is normal. There are coronary artery calcifications. No pericardial effusion. There is no pulmonary embolus. There is a gallstone in the gallbladder which is normal in size. There is a ventral hernia containing colon. There is kyphosis and moderate spondylosis of thoracic spine. There is a chronic burst fracture of T6. There is a chronic compression fracture of L1. ?IMPRESSION: ?1. No pulmonary embolus. ?2. Severe emphysema. ?11/28/2022 PFTs ??The test was performed and results interpreted in accordance with the 2019 and 2005 ATS/ERS Task Force guidelines respectively using the Global Lung Function Initiative-2012 reference equations. Patient demonstrated good effort and cooperation. Reproducibility criteria were met. The quality of the pre bronchodilator spirometry maneuver was Grade A and post bronchodilator spirometry maneuver was Grade A. ??Findings: ??Spirometry: ? There is decreased maximal expiratory airflow at all lung volumes with concave expiratory flow tracing.? The contour the inspiratory flow tracing is normal.? pre bronchodilator FVC is 1.39 L, 48% predicted.? The pre bronchodilator FEV1 is 0.59 L, 26% predicted.? The pre bronchodilator FEV1:? FVC ratio is 42%.? The post bronchodilator FVC is 1.50 L,? representing an 8% increase.? The post bronchodilator FEV1 is 0.63 L, representing a 6% increase.? The post bronchodilator FEV1:? FVC ratio is 42%.? ??Plethysmography:? The total lung capacity is 4.40 L, 85% predicted.? The functional residual capacity is 3.27 L, 110% predicted.? The residual volume is 3.01 L, 133% predicted.? ??Diffusing capacity:? The diffusing capacity unadjusted for hemoglobin and carboxyhemoglobin is 5.2, 25% predicted.? The diffusing capacity adjusted for alveolar volume is 2.58, 61% predicted. ??When compared to PFTs from [facility] on 06/20/2019 the post bronchodilator FVC has decreased from 2.10 L to 1.50 L.? The post bronchodilator FEV1 has decreased from 0.80 L to 0.63 L.? The total lung capacity is unchanged from 4.88 L to 4.40 L.? The functional residual capacity is unchanged from 3.71 L to 3.27 L.? The residual volume is unchanged from 3.24 L to 3.01 L.? The diffusing capacity unadjusted from hemoglobin and carboxyhemoglobin is unchanged from 5.6 to 5.2.? The diffusing capacity adjusted for alveolar volume is unchanged from 2.39 to 2.58. ??Impression:?There is a very severe obstructive abnormality without significant improvement after inhaling a single dose of albuterol.?The increase in residual volume is consistent with?air trapping?from an obstructive abnormality.? The diffusing capacity unadjusted for hemoglobin and carboxyhemoglobin is severely decreased and?remains mildly decreased when adjusted for alveolar volume. ??When compared to previous PFTs there has been a?greater than anticipated time dependent decrease in the FVC and FEV1?with no significant change in the total lung capacity, functional residual capacity, residual volume or DLCO. ?11/28/2022? ABG on 2 L nasal cannula pulse delivery: ? PH 7.42 / 56/47. ? Saturations were 83%.? Checked manually saturations were 84%. ?11/28/2022 ? Home O2 assessment:? Rest room air saturation 84%.? Rest nasal cannula 1 L saturation 86%, rest nasal cannula 2 L saturation 92%.? Exercise 2 L nasal cannula saturation 90%. ? These measurements were made with continuous flow nasal cannula.? I spoke with the weatherization technician and they attempted to place the patient on 4 L pulse delivery nasal cannula and her saturations remained less than 88%.??The patient requires 2 L oxygen at rest and with exercise at continuous flow. ??? Collectively these results demonstrate progression of the patient's very severe obstructive abnormality consistent with GOLD grade 4 COPD? with chronic hypercarbic respiratory failure from her COPD and hypoxemic respiratory failure from her COPD. ? Patient has chronic hypercarbic respiratory failure from her COPD and would benefit from noninvasive ventilation. ? She would benefit from noninvasive ventilation to prevent further deterioration and subsequent hospitalizations. ? Previously the patient had been on BiPAP on 05/05/2022 and she said that she could not tolerate these pressures and she had claustrophobia.?? I talked to the patient about this and she is also had a stroke with decreased mobility of her right upper extremity and is unsure if she will be able to? initiate her machine and mask at home although she is willing to try. ??? I will initiate home noninvasive ventilation with an AVAPS-AE mode? with a set rate of auto, tidal volume 500, minimal inspiratory pressure 5, maximal expiratory pressure 15, minimal inspiratory pressure 6, maximal inspiratory pressure 25,? rise time 1.0 sec, and 2 L bleed in. These settings can be adjusted for patient comfort on initial set up. ??? The pulmonary function test coordinator has reached out to [facility] to see if this can be coordinated through them and the outpatient clinic will coordinate our efforts with the PFT lab. ?? 08/12/2022 EXAMINATION: CT diagnostic chest wo con ???INDICATION: SOB for 2 days. COPD. History of lung cancer. ???COMPARISON: 07/17/2022 portable AP chest ???02/28/2019 CTA chest ???FINDINGS: Heart size is within normal range. No pericardial or pleural effusion. ???There is extensive thoracic aortic and some great vessel calcifications in addition to prominent coronary artery calcifications. No thoracic aortic aneurysm. ???Normal size and attenuation of the thyroid gland. No hilar or mediastinal mass lesion or lymphadenopathy. ???Moderate to moderately severe emphysema and bilateral pulmonary hyperinflation. ???There is a chronic linear scarring in the right lower lobe and left lower lobe. There is another linear scar or discoid atelectasis in the right lower lobe since 02/28/2019. ???There is minimal atelectasis at the dependent lung bases, both lower lobes. ???Included portions of the adrenal glands are unremarkable. ???One or more ventral abdominal wall hernias. ???Multiple old healed right rib fractures. ???Moderate anterior wedge compression fracture deformity of T6. ???Degenerative disc disease of the lower cervical spine and degenerative spurring of the thoracic spine. ???No suspicious osteolytic or osteoblastic lesions are noted. ???IMPRESSION:? Moderate to moderately severe emphysema ???Mild discoid atelectasis and/or scarring in the lower lobes ???Minimal bilateral lower lobe dependent atelectasis ???Aortic, great vessel and coronary artery atherosclerosis ???06/05/2022 CXR EXAMINATION: XR chest 2V ?INDICATION: SOB,?COMPARISON: 05/19/2022, 05/07/2022 ?FINDINGS: There are small pleural effusions. There is no pneumothorax. There are minimal airspace opacities of the lung bases. The cardiomediastinal silhouette is normal. There is a chronic compression fracture of T6 without significant change. ?IMPRESSION: ?1. Small pleural effusions with minimal bibasilar airspace opacities, likely atelectasis. ???04/03/2022 ABG on 3 L 7.42/49/111 ???03/10/2022 ABG RA 7.42/50/44 ?06/20/2019:? I have PFT report from [facility]. ???Findings: ???Spirometry:? There is decreased maximal expiratory airflow at all lung volumes with concave expiratory flow tracing.? The contour of the inspiratory flow tracing is normal.? The pre bronchodilator FVC is 1.64 L, 64% predicted.? The pre bronchodilator FEV1 is 0.76 L, 37% predicted.? The pre bronchodilator FEV1:? FVC ratio is 47%.? The post bronchodilator FVC is 2.10 L, representing a 28% increase.? The post bronchodilator FEV1 is 0.80 L, representing a 5% increase.? The post bronchodilator FEV1:? FVC ratio is 38%. ???Plethysmography:? The total lung capacity is 4.88 L, 110% predicted.? The functional residual capacity is 3.71 L, 159% predicted.? The residual volume is 3.24 L, 185% predicted. ???Diffusing capacity:? The diffusing capacity unadjusted for hemoglobin and carboxyhemoglobin is 5.6, 28% predicted.? The diffusing capacity adjusted for alveolar volume is 2.39, 66% predicted. ?My?Impression: There is a severe obstructive abnormality with significant improvement after inhaling a single dose of albuterol. The increase in residual volume is consistent with air trapping from an obstructive abnormality.? Hyperinflation is present as demonstrated by the increase in functional residual capacity and is consistent with an obstructive abnormality. The diffusing capacity unadjusted for hemoglobin and carboxyhemoglobin is severely decreased and is mildly decreased when adjusted for alveolar volume. ???When compared to the spirometry on 03/03/2019 the pre bronchodilator FVC has increased from 1.05 L to 1.64 L. The pre bronchodilator FEV1 has increased from 0.47 L to 0.76 L. ?03/03/2019 I have an echocardiogram report from [facility]: ???Summary:? The calculated ejection fraction is 52.? Left ventricular diastolic function is abnormal, grade 1 impaired relaxation.? Right ventricular systolic function is normal.? No evidence of pericardial effusion.? A trace of tricuspid regurgitation normal RV size and function normal right atrial size. ???01/09/2019 echocardiogram report from [facility].? Summary:? The left ventricle size is normal.? The left ventricular systolic function is lower limits of normal with an estimated LV EF of 50-55%.? Left ventricular diastolic function is abnormal grade 1, impaired relaxation, right ventricular systolic pressure is 37, mild aortic valve sclerosis ?03/03/2019:? I have a spirometry report from [facility]. ??Spirometry:? There is decreased maximal expiratory airflow at all lung volumes with concave expiratory flow tracing.? The contour the inspiratory flow tracing is normal.? The FVC is 1.05 L, 36% predicted.? The FEV1 is 0.47 L, 20% predicted.? The FEV1:? FVC ratio is 45%. ???My impression:? There is a very severe obstructive abnormality. ?? ?01/09/2019:? CT angiogram chest report from [facility].? Impression: no CT evidence of pulmonary embolism.? Mosaic perfusion in the upper and lower lobes may represent small airways disease or peripheral airways disease or sequela of radiation therapy if applicable.? The left hilar and suprahilar mass seen in 2012 is no longer present. ? 09/22/2018:? I have a report CT scan of the chest from [facility] demonstrating no pulmonary embolism, mild to moderate emphysema small amount of post infectious residual, no lymphadenopathy no pleural effusions, no pericardial effusion, no pneumothorax. ?? 01/09/2019: ? Report from [facility] ???EXAMINATION:CTA, CHEST FOR PE ???CLINICAL INDICATION: ???68-year-old inpatient with increasing SOB bilateral hand??and leg swelling over the past 6 weeks.? Given history of CHF, COPD,??coronary artery disease and lung carcinoma.??COMPARISON:??CTA chest abdomen pelvis with contrast 01/28/2013 and FDG PET/CT 02/02/2013 ?FINDINGS: ?The study was technically adequate??No intraluminal filling defects, wall thickening, or thrombus is present in??the pulmonary arterial vascular tree to suggest pulmonary embolus ?Although there is no given history of whether this patient had radiation or??chemotherapy the large left hilar and suprahilar mass seen in 2013 is no??longer present.? Mild thickening within the left hilar region of the??previously seen mass.? No recurrent hilar mass or mediastinal or hilar??lymphadenopathy.? Subtle mosaic perfusion of the upper lobes and dependent??lower lobes may represent small airway disease or peripheral airway disease ???or could be sequela of radiation therapy.? Additionally, small bibasilar??effusions and bilateral enhancing lower lobe atelectasis probably??compressive atelectasis.? The mosaic perfusion in the lower lobes has??superimposed interlobar septal thickening and groundglass opacities which??is suggestive of development of pulmonary edema. ???Mild cardiomegaly due to biventricular prominence.? No pericardial??effusion.? There is moderate hepatic venous reflux suggestive of a elevated??right heart pressures..? Normal caliber thoracic aorta.? No evidence of??aortic dissection. ???Included portions of the liver is homogeneous in density.? No definite??enhancing hepatic mass in the upper liver.? The spleen and adrenal glands??and tail of pancreas are unremarkable.? Stable wide neck supra umbilical?epigastric region ventral wall hernia containing nonentrapped nonobstructed?appearing loops of transverse colon unchanged since 2013.? This is only?partially included on this study. ???Bone window imaging fails to demonstrate pathologic bony abnormality.???Interval wedge compression deformity of T6. ?IMPRESSION: ???1. No CT evidence of pulmonary embolus ???2.? Mosaic perfusion in the upper and lower lobes may represent small ???airway disease or peripheral airway disease or sequela of radiation therapy?if applicable. ???3.? Concomitant findings of definite pulmonary edema bibasilar effusions??lower lobe atelectasis may represent CHF; there is always a possibility??this could represent malignant pleural effusions ???4.? Although there is no given history of bladder on this patient has?undergone radiation therapy or chemotherapy the left hilar and suprahilar?mass seen in 2013 is no longer present. ???5.? Wedge compression deformity T6 Since 2013 Review of Systems Constitutional: Constitutional: Reports no additional constitutional complaints Eyes: Eyes: Reports no additional eye complaints ENT: Reports system reviewed and no additional complaints, except as documented Cardiovascular: Cardiovascular: Reports no additional cardiovascular complaints Respiratory: Respiratory: Reports no additional respiratory complaints Gastrointestinal: Gastrointestinal: Reports no additional gastrointestinal complaints Musculoskeletal: Musculoskeletal: Reports no additional musculoskeletal complaints Neurologic: Reports system reviewed and no additional complaints, except as documented Psychiatric: Psychiatric: Reports no additional psychiatric complaints Endocrine: Endocrine: Reports no additional endocrine complaints Hematologic/Lymphatic: Hematologic/Lymphatic: Reports no additional hematologic/lymphatic complaints Allergic/Immunologic: Allergic/Immunologic: Reports no additional allergic/immunologic complaints Exam Const: General: cooperative, comfortable and no acute distress Orientation/consciousness: oriented to person, oriented to place and oriented to time HENMT: Head: normal to inspection Ears: hearing grossly normal bilaterally Eyes: General: appearance normal, both eyes and all related structures Neck: Neck: normal visual inspection Chest: Chest palpation & inspection: normal inspection of the chest Resp: Effort & Inspection: normal respiratory effort and able to speak in complete sentences Auscultation: no crackles, no rales, no rhonchi, no wheezes and diminished lung sounds Other: No wheezes Cardio: Jugular venous distension: no JVD GI: Inspection: normal to inspection Skin: General skin exam: normal color Neuro: General: oriented to person, oriented to place and oriented to time Extrem: General: normal to inspection and edema Other: Positive bilateral lower extremity edema. right knee area with Steri-Strips and sutures with no drainage. Left knee has a 3 cm fluid collection medial and below the knee joint that is tender with no drainage. Psych: Appearance: grossly normal Objective Data Vital Signs Vital Signs: Vital Signs - 24 hr 08/24/25 13:38 08/24/25 13:48 08/24/25 14:00 Temperature 36.4 C L Pulse Rate 88 90 83 Respiratory Rate 20 20 16 Blood Pressure 111/49 L Pulse Oximetry 94 Oxygen Delivery Oxygen Flow Rate 08/24/25 20:00 08/24/25 20:54 08/24/25 21:16 Temperature 36.9 C Pulse Rate 88 Respiratory Rate 20 Blood Pressure 131/64 Pulse Oximetry 98 97 98 Oxygen Delivery Nasal Cannula Nasal Cannula Oxygen Flow Rate 2 2 08/24/25 21:16 08/24/25 23:10 08/24/25 23:15 Temperature Pulse Rate 81 74 Respiratory Rate 20 Blood Pressure Pulse Oximetry 97 97 Oxygen Delivery Nasal Cannula Oxygen Flow Rate 1 08/25/25 05:47 08/25/25 08:17 08/25/25 08:19 Temperature 36.2 C L Pulse Rate 75 92 Respiratory Rate 20 20 Blood Pressure 137/60 Pulse Oximetry 95 95 Oxygen Delivery Nasal Cannula Oxygen Flow Rate 1 08/25/25 08:24 Temperature Pulse Rate 94 Respiratory Rate 20 Blood Pressure Pulse Oximetry Oxygen Delivery Oxygen Flow Rate Intake/Output Intake/Output: Intake & Output 08/22/25 08/23/25 08/24/25 08/25/25 23:59 23:59 23:59 23:59 Intake Total 2044 844 1120 150 Output Total 1550 1650 1800 300 Balance 494 -806 -680 -150 Meds/Results Medications: Active Medications Generic Name Dose Route Start Last Admin Trade Name Freq PRN Reason Stop Dose Admin Acetaminophen 650 mg 08/17/25 10:40 08/24/25 05:10 Acetaminophen 325 Mg Tablet PO 650 mg Q4H PRN Administration Mild Pain (1-3) or Fever Hydrocodone Bitart/Acetaminophen 1 tab 08/17/25 10:40 08/25/25 08:56 Hydrocodone/Acetaminophen (*Crx) 5-325 Mg Tablet PO 1 tab Q4H PRN Administration Moderate Pain (4-6) Al Hydrox/Mg Hydrox/Simethicone 30 ml 08/17/25 10:40 Mag Hydrox/Al Hydrox/Simeth 30 Ml Udc PO QID PRN Dyspepsia Albuterol 2 puff 08/17/25 14:38 Albuterol Sulfate (*Sp) Aerosol 1 Puff INHALATION Q6HRT PRN Shortness Of Breath Or Wheezing Albuterol/Ipratropium 3 ml 08/22/25 14:00 08/25/25 08:13 Ipratropium 0.5 Mg/Albuterol Sulfate 2.5 Mg (Base) Ampul.Neb 3 Ml INHALATION 3 ml Q6HRT JESSIE Administration Alprazolam 0.5 mg 08/17/25 14:38 08/22/25 08:38 Alprazolam (*Crx) 0.5 Mg Tablet PO 0.5 mg Q8H PRN Administration Anxiety Aspirin 81 mg 08/18/25 09:00 08/25/25 08:56 Aspirin 81 Mg Enteric Tablet PO 81 mg DAILY JESSIE Administration Atorvastatin Calcium 40 mg 08/17/25 21:00 08/24/25 20:41 Atorvastatin 40 Mg Tablet PO 40 mg HS JESSIE Administration Budesonide 0.5 mg 08/23/25 10:00 08/25/25 08:14 Budesonide Respule Neb 0.5 Mg/2 Ml Amp INHALATION 0.5 mg Q12HRT JESSIE Administration Buspirone HCl 10 mg 08/21/25 21:00 08/25/25 08:55 Buspirone Hcl 10 Mg Tablet PO 10 mg Q12HR JESSIE Administration Docusate Sodium 100 mg 08/20/25 11:23 Docusate Sodium 100 Mg Capsule PO Q12H PRN Constipation Enoxaparin Sodium 40 mg 08/17/25 11:00 08/25/25 08:57 Enoxaparin 40 Mg/0.4 Ml Syringe SUB-Q 40 mg DAILY JESSIE Administration Escitalopram Oxalate 10 mg 08/18/25 09:00 08/25/25 08:55 Escitalopram Oxalate 10 Mg Tablet PO 10 mg DAILY JESSIE Administration Ferrous Sulfate 325 mg 08/17/25 17:00 08/25/25 08:56 Ferrous Sulfate 325 Mg Tablet BY MOUTH 325 mg TID JESSIE Administration Furosemide 40 mg 08/17/25 11:00 08/25/25 08:57 Furosemide Inj 40 Mg/4 Ml Vial IV PUSH 40 mg BID JESSIE Administration Gabapentin 300 mg 08/17/25 22:00 08/25/25 05:57 Gabapentin 300 Mg Capsule PO 300 mg Q8HR JESSIE Administration Guaifenesin 1,200 mg 08/21/25 21:00 08/25/25 08:55 Guaifenesin 12 Hr 600 Mg Tabcr PO 1,200 mg Q12HR JESSIE Administration Ceftriaxone Sodium 1 gm/ 50 mls @ 100 mls/hr 08/24/25 15:00 08/24/25 16:53 Sodium Chloride IVPB Infused Q24H JESSIE Infusion Vancomycin HCl 1,250 mg in 250 mls @ 166.667 mls/hr 08/26/25 04:00 Vancomycin 1,250 Mg/Ns 250 Ml IVPB Q36H JESSIE Levetiracetam 250 mg 08/17/25 21:00 08/25/25 08:55 Levetiracetam 250 Mg Tablet PO 250 mg Q12H JESSIE Administration Loratadine 5 mg 08/17/25 18:00 08/24/25 16:58 Loratadine 5 Mg Tablet PO 5 mg QPM JESSIE Administration Magnesium Hydroxide 30 ml 08/17/25 10:40 Magnesium Hydroxide Susp 30 Ml Udc PO DAILY PRN Constipation Melatonin 5 mg 08/17/25 21:00 08/24/25 22:11 Melatonin 5 Mg Tablet PO 5 mg HS JESSIE Administration Multivitamins Therapeutic 1 tablet 08/18/25 09:00 08/25/25 08:56 Multivitamins Therapeutic Tab (*Bkc) PO 1 tablet DAILY JESSIE Administration Ondansetron HCl 4 mg 08/17/25 10:40 08/22/25 21:05 Ondansetron Inj 4 Mg/2 Ml Vial IV PUSH 4 mg Q6H PRN Administration Nausea And Vomiting Pantoprazole Sodium 40 mg 08/18/25 09:00 08/25/25 08:56 Pantoprazole 40 Mg Tablet PO 40 mg QAM JESSIE Administration Potassium Chloride 20 meq 08/17/25 17:00 08/25/25 08:55 Potassium Chloride 20 Meq Er Tablet PO 20 meq BID JESSIE Administration Roflumilast 500 mcg 08/24/25 09:00 08/25/25 08:56 Roflumilast 500 Mcg Tablet PO 500 mcg DAILY JESSIE Administration Ropinirole HCl 1 mg 08/17/25 17:00 08/25/25 08:56 Ropinirole Hcl 1 Mg Tablet PO 1 mg TID JESSIE Administration Spironolactone 25 mg 08/18/25 09:00 08/25/25 08:56 Spironolactone 25 Mg Tablet PO 25 mg DAILY JESSIE Administration Radiology Results: ITS Impressions Knee X-Ray 08/23/25 13:40 Impression: No acute fracture or malalignment. Chest X-Ray 08/25/25 08:52 Impression: No acute cardiopulmonary abnormality. Labs Labs: Laboratory Results - last 24 hr 08/24/25 08/25/25 04:56 04:35 WBC 8.8 RBC 3.95 L Hgb 11.3 L Hct 37.6 MCV 95.2 MCH 28.6 MCHC 30.1 L RDW 15.0 H Plt Count 257 MPV 10.4 Immature Gran % (Auto) 4.8 H Neut % (Auto) 70.7 Lymph % (Auto) 11.3 L [place] % (Auto) 9.9 H Eos % (Auto) 2.5 Baso % (Auto) 0.8 Lymph # (Auto) 0.99 [place] # (Auto) 0.9 H Eos # (Auto) 0.2 Baso # (Auto) 0.1 Abs Immat Gran (auto) 0.42 H Absolute Neuts (auto) 6.2 Absolute Nucleated RBC 0.000 Nucleated RBC % 0.0 Sodium 139 Potassium 3.6 Chloride 101 Carbon Dioxide 39 H Anion Gap -1 L BUN 27 H Creatinine 1.09 H Estim Creat Clear Calc 36 Estimated GFR 49 L Glucose 75 Calcium 9.0 Magnesium 1.8 Total Bilirubin 0.6 AST 24 ALT 21 Alkaline Phosphatase 68 C-Reactive Protein < 0.5 NT-Pro-B Natriuret Pep 1380 H Total Protein 5.7 L Albumin 3.1 L
--- NOTE | 2025-08-25 09:58 | P.PNIM_ITS ---
Assessment and Plan Assessment and Plan (1) Acute hypercapnic respiratory failure: Code(s): J96.02 - Acute respiratory failure with hypercapnia Status: Acute Assessment and Plan: Has history of gold grade 4, history of alpha-1 antitrypsin genotype mm * Appreciate pulmonology consultation and recommendations * Continue with supplemental O2 and BiPAP settings as recommended by pulmonology * Now on 2 liters oxygen which is her baseline * noted dyspnea has mostly resolved * Continue Prednisone, bronchodilators and buspar * Discussed with Dr Nava from Pulmonology who recommended overnight oximetry * for another overnight oximetry on 5 liters (2) Acute exacerbation of chronic obstructive pulmonary disease: Code(s): J44.1 - Chronic obstructive pulmonary disease with (acute) exacerbation Status: Acute Assessment and Plan: Recently hospitalized and discharged, now having worsening symptoms. [place] to be due to poor compliance with noninvasive ventilation in overuse of supplemental O2 * As above, appreciate pulmonology recommendations * Continue with supplemental O2 per protocol * S/p IV steroid, now Prednisone * Continue with DuoNebs, expectorants, flutter valve, long acting bronchodilators * Pulmonology following (3) Tachycardia: Code(s): R00.0 - Tachycardia, unspecified Status: Acute Assessment and Plan: resolved (4) Bilateral pneumonia: Qualifiers: Lung location: lower lobe of lung Pneumonia type: due to unspecified organism Qualified Code(s): J18.9 - Pneumonia, unspecified organism Code(s): J18.9 - Pneumonia, unspecified organism Status: Acute Assessment and Plan: Repeat CXR 08/17/2025 shows persistent airspace disease * Completed ceftriaxone and azithromycin * Continue supportive care measures as above * Urine antigens negative for strep pneumonia and Legionella (5) Diastolic CHF: Qualifiers: Heart failure chronicity: unspecified Qualified Code(s): I50.30 - Unspecified diastolic (congestive) heart failure Code(s): I50.30 - Unspecified diastolic (congestive) heart failure Status: Chronic Assessment and Plan: echocardiogram shows 40-45% left ventricular diastolic dysfunction * Appreciate cardiology consultation and recommendation * Continue Lasix 40 mg IV b.i.d., plan to wean as tolerated once she demonstrates improvement * When she is off IV diuresis, she will need to be transitioned to p.o. bumetanide 1 mg b.i.d. her Cardiology recommendations as oral Lasix had not been helping improve her symptoms. Will continue spironolactone 25 mg daily * Fluid restriction 1.5 L per day. Weigh patient daily * Continue compression stockings and leg elevation * Needs outpatient follow-up with Dr. Meyers 2 weeks following discharge (6) Laceration: Status: Acute Assessment and Plan: Developed right knee laceration following fall * Received wound care in ED. Wound was irrigated. 6 sutures placed. * suture is resorbable and strips will be removed in 3 days * wound care consulted (7) CKD (chronic kidney disease) stage 3, GFR 30-59 ml/min: Qualifiers: Chronic kidney disease stage 3 subtype: unspecified whether 3a or 3b Qualified Code(s): N18.30 - Chronic kidney disease, stage 3 unspecified Code(s): N18.30 - Chronic kidney disease, stage 3 unspecified Status: Acute Assessment and Plan: Chronic * Slight elevation in creatinine today to 1.27, likely due to IV diuresis * Monitor BMP closely, hold Lasix if any further increase (8) Iron deficiency anemia: Code(s): D50.9 - Iron deficiency anemia, unspecified Status: Acute Assessment and Plan: H&H remaining stable isat 13, and Hb 11.3 S/p 1000/1000 Venofer, Stop PO Iron monitor (9) Hypertension: Qualifiers: Hypertension type: primary hypertension Qualified Code(s): I10 - Essential (primary) hypertension Code(s): I10 - Essential (primary) hypertension Status: Chronic Assessment and Plan: Blood pressure stable, 136/67 today * Continue furosemide and spironolactone * Monitor BP trends (10) Weakness: Code(s): R53.1 - Weakness Status: Acute Assessment and Plan: Progressive weakening with more frequent falls * Continue PT/OT during admission Plan Left knee effusion ? Infection vs hematoma Blood culture Day 2 on Rocephin and Vanc Ortho noted he will consider aspiration if no improvement monitor DVT prophylaxis on Sq Lovenox PT/OT Subjective Date/time seen: 08/25/25 09:58 Interval history: Comfortable at bedside Review of Systems Review of Systems: All systems reviewed & are unremarkable except as noted in HPI and below Exam Narrative: GENERAL: Comfortable, no acute distress HENMT: moist mucous membranes. Dentures in place. EYES: EOM intact b/l NECK: no lymphadenopathy RESPIRATORY: Scattered wheezing, labored breathing, supplemental oxygen 2L CARDIO: irregular rhythm, irregular rate GI: Abdomen distended SKIN/EXTREMITIES: no rashes, no edema, no redness or tenderness Const: General: comfortable HENMT: Face/Nose/Sinus: Normal nares present Mouth: Yes moist mucous membranes Eyes: General: appearance normal, both eyes and all related structures Pupils: Equal, round and reactive pupils present EOM: EOMs intact bilaterally Neck: Neck: supple Thyroid: thyroid normal Resp: Effort & Inspection: normal respiratory effort (on BiPap at this time. ) Auscultation: rhonchi left upper and right upper and diminished lung sounds bilateral in the lower lung cristina Cardio: Jugular venous distension: no JVD Rate: regular rate Rhythm: regular rhythm Heart sounds: S1 normal heart sound present and S2 normal heart sound present GI: Auscultation: normal bowel sounds : General: Yes bladder normal to palpation Bimanual exam- vagina & uterus: bladder normal to palpation Skin: General skin exam: erythema (to the bilateral lower extremities, worse on left than right), abrasion (left anterior knee), laceration and wounds noted (right knee, laceration with steristrip/suture.) Trauma: abrasion (left anterior knee) and laceration Wounds: wounds noted (right knee, laceration with steristrip/suture.) Neuro: Cranial nerves: Yes Equal, round and reactive pupils present Motor exam (neuro): Abnormal motor strength present (generalized weakness) Extrem: General: pedal edema bilaterally pitting and 1+ Psych: Mental Status: mental status grossly normal Affect: normal affect Objective Data Vital Signs Vital Signs: Vital Signs - 24 hr 08/24/25 13:38 08/24/25 13:48 08/24/25 14:00 Temperature 97.5 F L Pulse Rate 88 90 83 Respiratory Rate 20 20 16 Blood Pressure 111/49 L Pulse Oximetry 94 Oxygen Delivery Oxygen Flow Rate 08/24/25 20:00 08/24/25 20:54 08/24/25 21:16 Temperature 98.5 F Pulse Rate 88 Respiratory Rate 20 Blood Pressure 131/64 Pulse Oximetry 98 97 98 Oxygen Delivery Nasal Cannula Nasal Cannula Oxygen Flow Rate 2 2 08/24/25 21:16 08/24/25 23:10 08/24/25 23:15 Temperature Pulse Rate 81 74 Respiratory Rate 20 Blood Pressure Pulse Oximetry 97 97 Oxygen Delivery Nasal Cannula Oxygen Flow Rate 1 08/25/25 05:47 08/25/25 08:17 08/25/25 08:19 Temperature 97.1 F L Pulse Rate 75 92 Respiratory Rate 20 20 Blood Pressure 137/60 Pulse Oximetry 95 95 Oxygen Delivery Nasal Cannula Oxygen Flow Rate 1 08/25/25 08:24 Temperature Pulse Rate 94 Respiratory Rate 20 Blood Pressure Pulse Oximetry Oxygen Delivery Oxygen Flow Rate Intake/Output Intake/Output: Intake & Output 08/22/25 08/23/25 08/24/25 08/25/25 23:59 23:59 23:59 23:59 Intake Total 2044 844 1120 150 Output Total 1550 1650 1800 300 Balance 494 -806 -680 -150 Meds/Results Medications: Active Medications Generic Name Dose Route Start Last Admin Trade Name Freq PRN Reason Stop Dose Admin Acetaminophen 650 mg 08/17/25 10:40 08/24/25 05:10 Acetaminophen 325 Mg Tablet PO 650 mg Q4H PRN Administration Mild Pain (1-3) or Fever Hydrocodone Bitart/Acetaminophen 1 tab 08/17/25 10:40 08/25/25 08:56 Hydrocodone/Acetaminophen (*Crx) 5-325 Mg Tablet PO 1 tab Q4H PRN Administration Moderate Pain (4-6) Al Hydrox/Mg Hydrox/Simethicone 30 ml 08/17/25 10:40 Mag Hydrox/Al Hydrox/Simeth 30 Ml Udc PO QID PRN Dyspepsia Albuterol 2 puff 08/17/25 14:38 Albuterol Sulfate (*Sp) Aerosol 1 Puff INHALATION Q6HRT PRN Shortness Of Breath Or Wheezing Albuterol/Ipratropium 3 ml 08/25/25 12:00 Ipratropium 0.5 Mg/Albuterol Sulfate 2.5 Mg (Base) Ampul.Neb 3 Ml INHALATION [id number] JESSIE Alprazolam 0.5 mg 08/17/25 14:38 08/22/25 08:38 Alprazolam (*Crx) 0.5 Mg Tablet PO 0.5 mg Q8H PRN Administration Anxiety Aspirin 81 mg 08/18/25 09:00 08/25/25 08:56 Aspirin 81 Mg Enteric Tablet PO 81 mg DAILY JESSIE Administration Atorvastatin Calcium 40 mg 08/17/25 21:00 08/24/25 20:41 Atorvastatin 40 Mg Tablet PO 40 mg HS JESSIE Administration Budesonide 0.5 mg 08/23/25 10:00 08/25/25 08:14 Budesonide Respule Neb 0.5 Mg/2 Ml Amp INHALATION 0.5 mg Q12HRT JESSIE Administration Buspirone HCl 10 mg 08/21/25 21:00 08/25/25 08:55 Buspirone Hcl 10 Mg Tablet PO 10 mg Q12HR JESSIE Administration Docusate Sodium 100 mg 08/20/25 11:23 Docusate Sodium 100 Mg Capsule PO Q12H PRN Constipation Enoxaparin Sodium 40 mg 08/17/25 11:00 08/25/25 08:57 Enoxaparin 40 Mg/0.4 Ml Syringe SUB-Q 40 mg DAILY JESSIE Administration Escitalopram Oxalate 10 mg 08/18/25 09:00 08/25/25 08:55 Escitalopram Oxalate 10 Mg Tablet PO 10 mg DAILY JESSIE Administration Ferrous Sulfate 325 mg 08/17/25 17:00 08/25/25 08:56 Ferrous Sulfate 325 Mg Tablet BY MOUTH 325 mg TID JESSIE Administration Furosemide 40 mg 08/17/25 11:00 08/25/25 08:57 Furosemide Inj 40 Mg/4 Ml Vial IV PUSH 40 mg BID JESSIE Administration Gabapentin 300 mg 08/17/25 22:00 08/25/25 05:57 Gabapentin 300 Mg Capsule PO 300 mg Q8HR JESSIE Administration Guaifenesin 1,200 mg 08/21/25 21:00 08/25/25 08:55 Guaifenesin 12 Hr 600 Mg Tabcr PO 1,200 mg Q12HR JESSIE Administration Ceftriaxone Sodium 1 gm/ 50 mls @ 100 mls/hr 08/24/25 15:00 08/24/25 16:53 Sodium Chloride IVPB Infused Q24H JESSIE Infusion Vancomycin HCl 1,250 mg in 250 mls @ 166.667 mls/hr 08/26/25 04:00 Vancomycin 1,250 Mg/Ns 250 Ml IVPB Q36H JESSIE Levetiracetam 250 mg 08/17/25 21:00 08/25/25 08:55 Levetiracetam 250 Mg Tablet PO 250 mg Q12H JESSIE Administration Loratadine 5 mg 08/17/25 18:00 08/24/25 16:58 Loratadine 5 Mg Tablet PO 5 mg QPM JESSIE Administration Magnesium Hydroxide 30 ml 08/17/25 10:40 Magnesium Hydroxide Susp 30 Ml Udc PO DAILY PRN Constipation Melatonin 5 mg 08/17/25 21:00 08/24/25 22:11 Melatonin 5 Mg Tablet PO 5 mg HS JESSIE Administration Multivitamins Therapeutic 1 tablet 08/18/25 09:00 08/25/25 08:56 Multivitamins Therapeutic Tab (*Bkc) PO 1 tablet DAILY JESSIE Administration Ondansetron HCl 4 mg 08/17/25 10:40 08/22/25 21:05 Ondansetron Inj 4 Mg/2 Ml Vial IV PUSH 4 mg Q6H PRN Administration Nausea And Vomiting Pantoprazole Sodium 40 mg 08/18/25 09:00 08/25/25 08:56 Pantoprazole 40 Mg Tablet PO 40 mg QAM JESSIE Administration Potassium Chloride 20 meq 08/17/25 17:00 08/25/25 08:55 Potassium Chloride 20 Meq Er Tablet PO 20 meq BID JESSIE Administration Roflumilast 500 mcg 08/24/25 09:00 08/25/25 08:56 Roflumilast 500 Mcg Tablet PO 500 mcg DAILY JESSIE Administration Ropinirole HCl 1 mg 08/17/25 17:00 08/25/25 08:56 Ropinirole Hcl 1 Mg Tablet PO 1 mg TID JESSIE Administration Spironolactone 25 mg 08/18/25 09:00 08/25/25 08:56 Spironolactone 25 Mg Tablet PO 25 mg DAILY JESSIE Administration Radiology Results: ITS Impressions Knee X-Ray 08/23/25 13:40 Impression: No acute fracture or malalignment. Chest X-Ray 08/25/25 08:52 Impression: No acute cardiopulmonary abnormality. Labs Labs: Laboratory Results - last 24 hr 08/24/25 08/25/25 04:56 04:35 WBC 8.8 RBC 3.95 L Hgb 11.3 L Hct 37.6 MCV 95.2 MCH 28.6 MCHC 30.1 L RDW 15.0 H Plt Count 257 MPV 10.4 Immature Gran % (Auto) 4.8 H Neut % (Auto) 70.7 Lymph % (Auto) 11.3 L Ritchie % (Auto) 9.9 H Eos % (Auto) 2.5 Baso % (Auto) 0.8 Lymph # (Auto) 0.99 Ritchie # (Auto) 0.9 H Eos # (Auto) 0.2 Baso # (Auto) 0.1 Abs Immat Gran (auto) 0.42 H Absolute Neuts (auto) 6.2 Absolute Nucleated RBC 0.000 Nucleated RBC % 0.0 Sodium 139 Potassium 3.6 Chloride 101 Carbon Dioxide 39 H Anion Gap -1 L BUN 27 H Creatinine 1.09 H Estim Creat Clear Calc 36 Estimated GFR 49 L Glucose 75 Calcium 9.0 Magnesium 1.8 Total Bilirubin 0.6 AST 24 ALT 21 Alkaline Phosphatase 68 C-Reactive Protein < 0.5 NT-Pro-B Natriuret Pep 1380 H Total Protein 5.7 L Albumin 3.1 L Quality VTE Prophylaxis VTE prophylaxis: pharmacologic ordered
[2025-08-25] MEDS: cefTRIAXone 1 GM in SODIUM CHLORIDE 0.9% IV 50 ML 100 ML IVPB (15:04)
[2025-08-25] MEDS: LORATADINE 5 MG TABLET PO (17:35)
[2025-08-25] MEDS: MELATONIN 5 MG TABLET PO (21:21)
[2025-08-25] MEDS: ATORVASTATIN 40 MG TABLET PO (21:21)
[2025-08-26] VITALS (13 sets, daily range): BP systolic 112–145; BP diastolic 52–64; PULSE 72–97; RESP 16–24; TEMP 36.2–36.8; O2SAT 93–98
[2025-08-26] MEDS: VANCOMYCIN 1,250 MG/NS 250 ML 1,250 MG/250 ML BAG 166.67 MG IVPB (04:05)
[2025-08-26] MEDS: GABAPENTIN 300 MG CAPSULE PO ×3 (05:44→21:26)
[2025-08-26 06:18] LABS: Estimated CRCL calculation 34 ml/min; Estimated Glomerular Filt Rate 45
[2025-08-26] MEDS: IPRATROPIUM 0.5 MG/ALBUTEROL SULFATE 2.5 MG (BASE) AMPUL.NEB 3 ML INHALATION ×3 (08:36→20:37)
[2025-08-26] MEDS: BUDESONIDE RESPULE NEB 0.5 MG/2 ML AMP INHALATION ×2 (08:36→20:37)
[2025-08-26] MEDS: POTASSIUM CHLORIDE 20 MEQ ER TABLET PO ×2 (09:23→16:15)
[2025-08-26] MEDS: guaiFENesin 12 HR 600 MG TABCR 1200 MG PO ×2 (09:23→21:26)
[2025-08-26] MEDS: FERROUS SULFATE 325 MG TABLET BY MOUTH ×3 (09:24→16:15)
[2025-08-26] MEDS: ROFLUMILAST 500 MCG TABLET PO (09:24)
[2025-08-26] MEDS: PANTOPRAZOLE 40 MG TABLET PO (09:24)
[2025-08-26] MEDS: ESCITALOPRAM OXALATE 10 MG TABLET PO (09:24)
[2025-08-26] MEDS: ASPIRIN 81 MG ENTERIC TABLET PO (09:24)
[2025-08-26] MEDS: SPIRONOLACTONE 25 MG TABLET PO (09:24)
[2025-08-26] MEDS: MULTIVITAMINS THERAPEUTIC TAB (*BKC) 1 TABLET PO (09:25)
[2025-08-26] MEDS: FUROSEMIDE INJ 40 MG/4 ML VIAL IV PUSH ×2 (09:25→16:18)
[2025-08-26] MEDS: HYDROcodone/acetaminophen (*CRX) 5-325 MG TABLET 1 TAB PO (09:25)
[2025-08-26] MEDS: ENOXAPARIN 40 MG/0.4 ML SYRINGE SUB-Q (09:27)
--- NOTE | 2025-08-26 13:18 | P.PNIM_ITS ---
Assessment and Plan Assessment and Plan (1) Acute hypercapnic respiratory failure: Code(s): J96.02 - Acute respiratory failure with hypercapnia Status: Acute Assessment and Plan: Has history of gold grade 4, history of alpha-1 antitrypsin genotype mm * Appreciate pulmonology consultation and recommendations * Continue with supplemental O2 and BiPAP settings as recommended by pulmonology * Now on 2 liters oxygen which is her baseline * noted dyspnea has mostly resolved * Continue Prednisone, bronchodilators and buspar * Discussed with Dr Nava from Pulmonology who recommended overnight oximetry * for another overnight oximetry on 5 liters (2) Acute exacerbation of chronic obstructive pulmonary disease: Code(s): J44.1 - Chronic obstructive pulmonary disease with (acute) exacerbation Status: Acute Assessment and Plan: Recently hospitalized and discharged, now having worsening symptoms. [place] to be due to poor compliance with noninvasive ventilation in overuse of supplemental O2 * As above, appreciate pulmonology recommendations * Continue with supplemental O2 per protocol * S/p IV steroid, now Prednisone * Continue with DuoNebs, expectorants, flutter valve, long acting bronchodilators * Pulmonology following (3) Tachycardia: Code(s): R00.0 - Tachycardia, unspecified Status: Acute Assessment and Plan: resolved (4) Bilateral pneumonia: Qualifiers: Lung location: lower lobe of lung Pneumonia type: due to unspecified organism Qualified Code(s): J18.9 - Pneumonia, unspecified organism Code(s): J18.9 - Pneumonia, unspecified organism Status: Acute Assessment and Plan: Repeat CXR 08/17/2025 shows persistent airspace disease * Completed ceftriaxone and azithromycin * Continue supportive care measures as above * Urine antigens negative for strep pneumonia and Legionella (5) Diastolic CHF: Qualifiers: Heart failure chronicity: unspecified Qualified Code(s): I50.30 - Unspecified diastolic (congestive) heart failure Code(s): I50.30 - Unspecified diastolic (congestive) heart failure Status: Chronic Assessment and Plan: echocardiogram shows 40-45% left ventricular diastolic dysfunction * Appreciate cardiology consultation and recommendation * Continue Lasix 40 mg IV b.i.d., plan to wean as tolerated once she demonstrates improvement * When she is off IV diuresis, she will need to be transitioned to p.o. bumetanide 1 mg b.i.d. her Cardiology recommendations as oral Lasix had not been helping improve her symptoms. Will continue spironolactone 25 mg daily * Fluid restriction 1.5 L per day. Weigh patient daily * Continue compression stockings and leg elevation * Needs outpatient follow-up with Dr. Meyers 2 weeks following discharge (6) Laceration: Status: Acute Assessment and Plan: Developed right knee laceration following fall * Received wound care in ED. Wound was irrigated. 6 sutures placed. * suture is resorbable and strips will be removed in 2 days * wound care consulted (7) CKD (chronic kidney disease) stage 3, GFR 30-59 ml/min: Qualifiers: Chronic kidney disease stage 3 subtype: unspecified whether 3a or 3b Qualified Code(s): N18.30 - Chronic kidney disease, stage 3 unspecified Code(s): N18.30 - Chronic kidney disease, stage 3 unspecified Status: Acute Assessment and Plan: Chronic * Slight elevation in creatinine today to 1.27, likely due to IV diuresis * Monitor BMP closely, hold Lasix if any further increase (8) Iron deficiency anemia: Code(s): D50.9 - Iron deficiency anemia, unspecified Status: Acute Assessment and Plan: H&H remaining stable isat 13, and Hb 11.3 S/p 1000/1000 Venofer, Stop PO Iron monitor (9) Hypertension: Qualifiers: Hypertension type: primary hypertension Qualified Code(s): I10 - Essential (primary) hypertension Code(s): I10 - Essential (primary) hypertension Status: Chronic Assessment and Plan: Blood pressure stable, 136/67 today * Continue furosemide and spironolactone * Monitor BP trends (10) Weakness: Code(s): R53.1 - Weakness Status: Acute Assessment and Plan: Progressive weakening with more frequent falls * Continue PT/OT during admission Plan Left knee effusion ? Infection vs hematoma Still swollen and tender left knee Blood culture Day 3 on Rocephin and Vanc Discussed with Ortho for Aspiration monitor DVT prophylaxis on Sq Lovenox PT/OT Subjective Date/time seen: 08/26/25 13:18 Interval history: Comfortable at bedside Review of Systems Review of Systems: All systems reviewed & are unremarkable except as noted in HPI and below Exam Narrative: GENERAL: Comfortable, no acute distress HENMT: moist mucous membranes. Dentures in place. EYES: EOM intact b/l NECK: no lymphadenopathy RESPIRATORY: Scattered wheezing, labored breathing, supplemental oxygen 2L CARDIO: irregular rhythm, irregular rate GI: Abdomen distended SKIN/EXTREMITIES: no rashes, no edema, no redness or tenderness Const: General: comfortable HENMT: Face/Nose/Sinus: Normal nares present Mouth: Yes moist mucous membranes Eyes: General: appearance normal, both eyes and all related structures Pupils: Equal, round and reactive pupils present EOM: EOMs intact bilaterally Neck: Neck: supple Thyroid: thyroid normal Resp: Effort & Inspection: normal respiratory effort (on BiPap at this time. ) Auscultation: rhonchi left upper and right upper and diminished lung sounds bilateral in the lower lung cristina Cardio: Jugular venous distension: no JVD Rate: regular rate Rhythm: regular rhythm Heart sounds: S1 normal heart sound present and S2 normal heart sound present GI: Auscultation: normal bowel sounds : General: Yes bladder normal to palpation Bimanual exam- vagina & uterus: bladder normal to palpation Skin: General skin exam: erythema (to the bilateral lower extremities, worse on left than right), abrasion (left anterior knee), laceration and wounds noted (right knee, laceration with steristrip/suture.) Trauma: abrasion (left anterior knee) and laceration Wounds: wounds noted (right knee, laceration with steristrip/suture.) Neuro: Cranial nerves: Yes Equal, round and reactive pupils present Motor exam (neuro): Abnormal motor strength present (generalized weakness) Extrem: General: pedal edema bilaterally pitting and 1+ Psych: Mental Status: mental status grossly normal Affect: normal affect Objective Data Vital Signs Vital Signs: Vital Signs - 24 hr 08/25/25 13:43 08/25/25 13:51 08/25/25 13:58 Temperature 96.6 F L Pulse Rate 85 88 76 Respiratory Rate 20 20 17 Blood Pressure 123/55 L Pulse Oximetry 100 Oxygen Delivery Oxygen Flow Rate 08/25/25 16:57 08/25/25 17:09 08/25/25 20:00 Temperature Pulse Rate 78 82 Respiratory Rate 20 20 Blood Pressure Pulse Oximetry 96 Oxygen Delivery Nasal Cannula Oxygen Flow Rate 1 08/25/25 20:20 08/25/25 20:30 08/25/25 20:31 Temperature Pulse Rate 86 86 Respiratory Rate 16 16 Blood Pressure Pulse Oximetry 94 Oxygen Delivery Nasal Cannula Oxygen Flow Rate 1 08/25/25 22:00 12/12/25 23:15 08/26/25 06:00 Temperature 97.2 F L 97.2 F L Pulse Rate 83 72 72 Respiratory Rate 20 20 Blood Pressure 117/61 112/52 L Pulse Oximetry 94 96 97 Oxygen Delivery Oxygen Flow Rate 08/26/25 08:00 08/26/25 08:36 08/26/25 08:46 Temperature Pulse Rate 82 84 Respiratory Rate 16 16 Blood Pressure Pulse Oximetry 95 Oxygen Delivery Nasal Cannula Oxygen Flow Rate 1 Intake/Output Intake/Output: Intake & Output 08/23/25 08/24/25 08/25/25 08/26/25 23:59 23:59 23:59 23:59 Intake Total 844 1120 710 540 Output Total 1650 1800 600 350 Balance -806 -680 110 190 Meds/Results Medications: Active Medications Generic Name Dose Route Start Last Admin Trade Name Freq PRN Reason Stop Dose Admin Acetaminophen 650 mg 08/17/25 10:40 08/24/25 05:10 Acetaminophen 325 Mg Tablet PO 650 mg Q4H PRN Administration Mild Pain (1-3) or Fever Hydrocodone Bitart/Acetaminophen 1 tab 08/17/25 10:40 08/26/25 09:25 Hydrocodone/Acetaminophen (*Crx) 5-325 Mg Tablet PO 1 tab Q4H PRN Administration Moderate Pain (4-6) Al Hydrox/Mg Hydrox/Simethicone 30 ml 08/17/25 10:40 Mag Hydrox/Al Hydrox/Simeth 30 Ml Udc PO QID PRN Dyspepsia Albuterol 2 puff 08/17/25 14:38 Albuterol Sulfate (*Sp) Aerosol 1 Puff INHALATION Q6HRT PRN Shortness Of Breath Or Wheezing Albuterol/Ipratropium 3 ml 08/25/25 12:00 08/26/25 08:36 Ipratropium 0.5 Mg/Albuterol Sulfate 2.5 Mg (Base) Ampul.Neb 3 Ml INHALATION 3 ml [id number] JESSIE Administration Alprazolam 0.5 mg 08/17/25 14:38 08/22/25 08:38 Alprazolam (*Crx) 0.5 Mg Tablet PO 0.5 mg Q8H PRN Administration Anxiety Aspirin 81 mg 08/18/25 09:00 08/26/25 09:24 Aspirin 81 Mg Enteric Tablet PO 81 mg DAILY JESSIE Administration Atorvastatin Calcium 40 mg 08/17/25 21:00 08/25/25 21:21 Atorvastatin 40 Mg Tablet PO 40 mg HS JESSIE Administration Budesonide 0.5 mg 08/23/25 10:00 08/26/25 08:36 Budesonide Respule Neb 0.5 Mg/2 Ml Amp INHALATION 0.5 mg Q12HRT JESSIE Administration Buspirone HCl 10 mg 08/21/25 21:00 08/26/25 09:25 Buspirone Hcl 10 Mg Tablet PO 10 mg Q12HR JESSIE Administration Docusate Sodium 100 mg 08/20/25 11:23 Docusate Sodium 100 Mg Capsule PO Q12H PRN Constipation Enoxaparin Sodium 40 mg 08/17/25 11:00 08/26/25 09:27 Enoxaparin 40 Mg/0.4 Ml Syringe SUB-Q 40 mg DAILY JESSIE Administration Escitalopram Oxalate 10 mg 08/18/25 09:00 08/26/25 09:24 Escitalopram Oxalate 10 Mg Tablet PO 10 mg DAILY JESSIE Administration Ferrous Sulfate 325 mg 08/17/25 17:00 08/26/25 09:24 Ferrous Sulfate 325 Mg Tablet BY MOUTH 325 mg TID JESSIE Administration Furosemide 40 mg 08/17/25 11:00 08/26/25 09:25 Furosemide Inj 40 Mg/4 Ml Vial IV PUSH 40 mg BID JESSIE Administration Gabapentin 300 mg 08/17/25 22:00 08/26/25 05:44 Gabapentin 300 Mg Capsule PO 300 mg Q8HR JESSIE Administration Guaifenesin 1,200 mg 08/21/25 21:00 08/26/25 09:23 Guaifenesin 12 Hr 600 Mg Tabcr PO 1,200 mg Q12HR JESSIE Administration Ceftriaxone Sodium 1 gm/ 50 mls @ 100 mls/hr 08/24/25 15:00 08/25/25 15:34 Sodium Chloride IVPB Infused Q24H JESSIE Infusion Vancomycin HCl 1,250 mg in 250 mls @ 166.667 mls/hr 08/26/25 04:00 08/26/25 04:05 Vancomycin 1,250 Mg/Ns 250 Ml IVPB 166.67 mls/hr Q36H JESSIE Administration Levetiracetam 250 mg 08/17/25 21:00 08/26/25 09:24 Levetiracetam 250 Mg Tablet PO 250 mg Q12H JESSIE Administration Loratadine 5 mg 08/17/25 18:00 08/25/25 17:35 Loratadine 5 Mg Tablet PO 5 mg QPM JESSIE Administration Magnesium Hydroxide 30 ml 08/17/25 10:40 Magnesium Hydroxide Susp 30 Ml Udc PO DAILY PRN Constipation Melatonin 5 mg 08/17/25 21:00 08/25/25 21:21 Melatonin 5 Mg Tablet PO 5 mg HS JESSIE Administration Miscellaneous Information 1 each 08/27/25 00:01 Please Renew [place]. Per [employer] Procedure, It Will Discontinue If Not Renewed. XX 09/26/25 00:00 CLARIFY JESSIE Multivitamins Therapeutic 1 tablet 08/18/25 09:00 08/26/25 09:25 Multivitamins Therapeutic Tab (*Bkc) PO 1 tablet DAILY JESSIE Administration Ondansetron HCl 4 mg 08/17/25 10:40 08/22/25 21:05 Ondansetron Inj 4 Mg/2 Ml Vial IV PUSH 4 mg Q6H PRN Administration Nausea And Vomiting Pantoprazole Sodium 40 mg 08/18/25 09:00 08/26/25 09:24 Pantoprazole 40 Mg Tablet PO 40 mg QAM JESSIE Administration Potassium Chloride 20 meq 08/17/25 17:00 08/26/25 09:23 Potassium Chloride 20 Meq Er Tablet PO 20 meq BID JESSIE Administration Roflumilast 500 mcg 08/24/25 09:00 08/26/25 09:24 Roflumilast 500 Mcg Tablet PO 500 mcg DAILY JESSIE Administration Ropinirole HCl 1 mg 08/17/25 17:00 08/26/25 09:23 Ropinirole Hcl 1 Mg Tablet PO 1 mg TID JESSIE Administration Spironolactone 25 mg 08/18/25 09:00 08/26/25 09:24 Spironolactone 25 Mg Tablet PO 25 mg DAILY JESSIE Administration Radiology Results: ITS Impressions Knee X-Ray 08/23/25 13:40 Impression: No acute fracture or malalignment. Chest X-Ray 08/25/25 08:52 Impression: No acute cardiopulmonary abnormality. Labs Labs: Laboratory Results - last 24 hr 08/26/25 05:47 Creatinine 1.18 H Estim Creat Clear Calc 34 Estimated GFR 45 L Quality VTE Prophylaxis VTE prophylaxis: pharmacologic ordered
[2025-08-26] MEDS: ALPRAZolam (*CRX) 0.5 MG TABLET PO (14:48)
--- NOTE | 2025-08-26 14:56 | ECG_ITS ---
Test Date: 2025-08-26 15:09:50 Measurements Intervals [place] Rate: 76 P: 46 [place]: 116 QRS: 18 QRSD: 98 T: 24 QT: 384 QTc: 433 Interpretive Statements SINUS RHYTHM WITH ATRIAL AND VENTRICULAR PREMATURE COMPLEXES MINIMAL Q WAVES- INFERIOR LEADS BASELINE ARTIFACT- I, II, III, AVR, AVL, AVF, V1-V6 BORDERLINE ECG Compared to ECG 08/21/2025 13:49:27 ATRIAL AND VENTRICULAR PREMATURE COMPLEXES NOW PRESENT Electronically Signed On 08-26-2025 15:21:43 [employer] by Oli Meyers D.O.
[2025-08-26 15:25] LABS: CRP 0.7 mg/dL (<1.0)
[2025-08-26] MEDS: cefTRIAXone 1 GM in SODIUM CHLORIDE 0.9% IV 50 ML 100 ML IVPB (16:15)
[2025-08-26 17:29] LABS: Hematocrit 38.9 % (37.0-47.0); Hemoglobin 12.0 g/dL (12.0-15.0); Mean Corpuscular HGB Conc 30.8 g/dl (32-36); Mean Corpuscular Hemoglobin 28.6 pg (26-34); Mean Corpuscular Volume 92.8 fl (80-100); Platelet Count Result 289 k/mm3 (150-375); Red Blood Count 4.19 M/mm3 (4.2-5.4); White Blood Count 11.4 K/mm3 (4.5-10.0)
[2025-08-26 17:57] LABS: Troponin I < 0.012 ng/mL (0.000-0.034)
[2025-08-26] MEDS: LORATADINE 5 MG TABLET PO (18:28)
[2025-08-26 19:54] LABS: Alanine Aminotransferase 31 U/L (6-35); Albumin Level 3.4 g/dL (3.5-5.1); Alkaline Phosphatase 78 U/L (38-126); Anion Gap 2 mmol/L (4-12); Aspartate Amino Transferase 38 U/L (14-36); Bilirubin,Total 0.5 mg/dL (0.2-1.3); Blood Urea Nitrogen 24 mg/dL (7-17); Calcium 9.6 mg/dL (8.4-10.2); Carbon Dioxide 34 mmol/L (22-30); Chloride 102 mmol/L (98-107); Estimated CRCL calculation 31 ml/min; Estimated Glomerular Filt Rate 41; Glucose 113 mg/dL (65-110); Potassium 4.3 mmol/L (3.4-5.0); Sodium 138 mmol/L (137-145); Total Protein 6.0 g/dL (6.3-8.2)
--- NOTE | 2025-08-26 20:20 | P.PNOP_ITS ---
Progress Note: A&P Assessment and Plan (1) Infection of left knee: Code(s): M00.9 - Pyogenic arthritis, unspecified Status: Acute Assessment and Plan: 75 yr old female with hematoma (possible infected) Left Knee after fall with superficial abrasion. At bedside, I incised the Left Knee Hematoma, sanguinous material, no purulence, sent for cultures. Incision anteromedial knee, 2cm in length, anesthetized with lidocaine prior to incision. Incision left open and bandaged. Recommend daily dry dressing change. Subjective Subjective Date/Time Seen: 08/26/25 20:20 Principal diagnosis: Left Knee Superficial Hematoma Interval history: Decrease pain Left Knee, however, still somewhat sore to the touch. No fevers or chills and no drainage. Exam Narrative: Exam of Left Knee shows less erythema and warmth, although there is still tenderness surrounding the non draining wound. Objective Data Vital Signs Vital Signs: Vital Signs - 24 hr 08/25/25 20:30 08/25/25 20:31 08/25/25 22:00 Temperature 36.2 C L Pulse Rate 86 83 Respiratory Rate 16 20 Blood Pressure 117/61 Pulse Oximetry 94 94 Oxygen Delivery Nasal Cannula Oxygen Flow Rate 1 08/25/25 23:15 08/26/25 06:00 08/26/25 08:00 Temperature 36.2 C L Pulse Rate 72 72 Respiratory Rate 20 Blood Pressure 112/52 L Pulse Oximetry 96 97 95 Oxygen Delivery Nasal Cannula Oxygen Flow Rate 1 08/26/25 08:36 08/26/25 08:46 08/26/25 13:24 Temperature Pulse Rate 82 84 80 Respiratory Rate 16 16 16 Blood Pressure Pulse Oximetry Oxygen Delivery Oxygen Flow Rate 08/26/25 13:36 08/26/25 14:50 08/26/25 16:12 Temperature 36.8 C Pulse Rate 82 97 84 Respiratory Rate 16 24 H 20 Blood Pressure 145/64 H 116/62 Pulse Oximetry 93 94 Oxygen Delivery Oxygen Flow Rate Intake/Output Intake/Output: Intake & Output 08/23/25 08/24/25 08/25/25 08/26/25 23:59 23:59 23:59 23:59 Intake Total 844 1120 710 900 Output Total 1650 0343 255 3941 Balance -806 -297 110 -250 Meds/Results Medications: Active Medications Generic Name Dose Route Start Last Admin Trade Name Freq PRN Reason Stop Dose Admin Acetaminophen 650 mg 08/17/25 10:40 08/24/25 05:10 Acetaminophen 325 Mg Tablet PO 650 mg Q4H PRN Administration Mild Pain (1-3) or Fever Hydrocodone Bitart/Acetaminophen 1 tab 08/17/25 10:40 08/26/25 09:25 Hydrocodone/Acetaminophen (*Crx) 5-325 Mg Tablet PO 1 tab Q4H PRN Administration Moderate Pain (4-6) Al Hydrox/Mg Hydrox/Simethicone 30 ml 08/17/25 10:40 Mag Hydrox/Al Hydrox/Simeth 30 Ml Udc PO QID PRN Dyspepsia Albuterol 2 puff 08/17/25 14:38 Albuterol Sulfate (*Sp) Aerosol 1 Puff INHALATION Q6HRT PRN Shortness Of Breath Or Wheezing Albuterol/Ipratropium 3 ml 08/25/25 12:00 08/26/25 16:59 Ipratropium 0.5 Mg/Albuterol Sulfate 2.5 Mg (Base) Ampul.Neb 3 Ml INHALATION Not Given [id number] JESSIE Alprazolam 0.5 mg 08/17/25 14:38 08/26/25 14:48 Alprazolam (*Crx) 0.5 Mg Tablet PO 0.5 mg Q8H PRN Administration Anxiety Aspirin 81 mg 08/18/25 09:00 08/26/25 09:24 Aspirin 81 Mg Enteric Tablet PO 81 mg DAILY JESSIE Administration Atorvastatin Calcium 40 mg 08/17/25 21:00 08/25/25 21:21 Atorvastatin 40 Mg Tablet PO 40 mg HS JESSIE Administration Budesonide 0.5 mg 08/23/25 10:00 08/26/25 08:36 Budesonide Respule Neb 0.5 Mg/2 Ml Amp INHALATION 0.5 mg Q12HRT JESSIE Administration Buspirone HCl 10 mg 08/21/25 21:00 08/26/25 09:25 Buspirone Hcl 10 Mg Tablet PO 10 mg Q12HR JESSIE Administration Docusate Sodium 100 mg 08/20/25 11:23 Docusate Sodium 100 Mg Capsule PO Q12H PRN Constipation Enoxaparin Sodium 40 mg 08/17/25 11:00 08/26/25 09:27 Enoxaparin 40 Mg/0.4 Ml Syringe SUB-Q 40 mg DAILY JESSIE Administration Escitalopram Oxalate 10 mg 08/18/25 09:00 08/26/25 09:24 Escitalopram Oxalate 10 Mg Tablet PO 10 mg DAILY JESSIE Administration Ferrous Sulfate 325 mg 08/17/25 17:00 08/26/25 16:15 Ferrous Sulfate 325 Mg Tablet BY MOUTH 325 mg TID JESSIE Administration Furosemide 40 mg 08/17/25 11:00 08/26/25 16:18 Furosemide Inj 40 Mg/4 Ml Vial IV PUSH 40 mg BID JESSIE Administration Gabapentin 300 mg 08/17/25 22:00 08/26/25 14:48 Gabapentin 300 Mg Capsule PO 300 mg Q8HR JESSIE Administration Guaifenesin 1,200 mg 08/21/25 21:00 08/26/25 09:23 Guaifenesin 12 Hr 600 Mg Tabcr PO 1,200 mg Q12HR JESSIE Administration Ceftriaxone Sodium 1 gm/ 50 mls @ 100 mls/hr 08/24/25 15:00 08/26/25 16:15 Sodium Chloride IVPB 100 mls/hr Q24H JESSIE Administration Vancomycin HCl 1,250 mg in 250 mls @ 166.667 mls/hr 08/26/25 04:00 08/26/25 04:05 Vancomycin 1,250 Mg/Ns 250 Ml IVPB 166.67 mls/hr Q36H JESSIE Administration Levetiracetam 250 mg 08/17/25 21:00 08/26/25 09:24 Levetiracetam 250 Mg Tablet PO 250 mg Q12H JESSIE Administration Loratadine 5 mg 08/17/25 18:00 08/26/25 18:28 Loratadine 5 Mg Tablet PO 5 mg QPM JESSIE Administration Magnesium Hydroxide 30 ml 08/17/25 10:40 Magnesium Hydroxide Susp 30 Ml Udc PO DAILY PRN Constipation Melatonin 5 mg 08/17/25 21:00 08/25/25 21:21 Melatonin 5 Mg Tablet PO 5 mg HS JESSIE Administration Miscellaneous Information 1 each 08/27/25 00:01 Please Renew [place]. Per [employer] Procedure, It Will Discontinue If Not Renewed. XX 09/26/25 00:00 CLARIFY JESSIE Miscellaneous Information 1 each 08/26/25 00:01 Please Renew Alprazolam. Per [employer] Procedure, It Will Discontinue If Not Renewed. XX 09/25/25 00:00 CLARIFY JESSIE Multivitamins Therapeutic 1 tablet 08/18/25 09:00 08/26/25 09:25 Multivitamins Therapeutic Tab (*Bkc) PO 1 tablet DAILY JESSIE Administration Ondansetron HCl 4 mg 08/17/25 10:40 08/22/25 21:05 Ondansetron Inj 4 Mg/2 Ml Vial IV PUSH 4 mg Q6H PRN Administration Nausea And Vomiting Pantoprazole Sodium 40 mg 08/18/25 09:00 08/26/25 09:24 Pantoprazole 40 Mg Tablet PO 40 mg QAM JESSIE Administration Potassium Chloride 20 meq 08/17/25 17:00 08/26/25 16:15 Potassium Chloride 20 Meq Er Tablet PO 20 meq BID JESSIE Administration Roflumilast 500 mcg 08/24/25 09:00 08/26/25 09:24 Roflumilast 500 Mcg Tablet PO 500 mcg DAILY JESSIE Administration Ropinirole HCl 1 mg 08/17/25 17:00 08/26/25 16:16 Ropinirole Hcl 1 Mg Tablet PO 1 mg TID JESSIE Administration Spironolactone 25 mg 08/18/25 09:00 08/26/25 09:24 Spironolactone 25 Mg Tablet PO 25 mg DAILY JESSIE Administration Radiology Results: ITS Impressions Knee X-Ray 08/23/25 13:40 Impression: No acute fracture or malalignment. Chest X-Ray 08/25/25 08:52 Impression: No acute cardiopulmonary abnormality. Labs Labs: Laboratory Results - last 24 hr 08/26/25 08/26/25 08/26/25 05:47 14:34 17:07 WBC 11.4 H RBC 4.19 L Hgb 12.0 Hct 38.9 MCV 92.8 MCH 28.6 MCHC 30.8 L RDW 15.2 H Plt Count 289 MPV 10.2 Sodium 138 Potassium 4.3 Chloride 102 Carbon Dioxide 34 H Anion Gap 2 L BUN 24 H Creatinine 1.18 H 1.27 H Estim Creat Clear Calc 34 31 Estimated GFR 45 L 41 L Glucose 113 H Calcium 9.6 Total Bilirubin 0.5 AST 38 H ALT 31 Alkaline Phosphatase 78 Troponin I < 0.012 C-Reactive Protein 0.7 Total Protein 6.0 L Albumin 3.4 L
--- NOTE | 2025-08-26 20:25 | W.PM.PROC2 ---
Procedure Note - Detailed Date of Procedure 08/26/25 Pre-op Diagnosis Left knee infection Post-op Diagnosis Same Procedure Performed Left knee abscess, hematoma drained Surgeon Rik Alejandro MD Anesthesia Local Indications Left knee abscess,hematoma after fall Findings Sanguinous debridement Description of Procedure After obtaining consent for the procedure, I prepped the left knee the bedside with betadine to sterilize the area around the anterior medial aspect of the left knee which was super-frigid. I then proceeded to anesthetize locally infiltrating the skin with 1% lidocaine. After infiltration 1% lidocaine was used in an 11 blade to create a 2cm incision over the anterior medial aspect of the patient's left knee just below the patella tendon. I then dissected down and did a blood dissection to undermine onto the anterior medial aspect of her knee and I was able to get to a depth of about an additional 2cm and it was primarily a sanguidus materia which was consistent with a hematoma but did not appear to be infected. This was sent off to a lab for cultures. I then bandaged the knee in a sterile fashion and the small incision site was left open. There's a plan for daily dressing changes? Drains No Packing No Pathology Yes Complications No immediate complications Condition Stable Disposition No change
[2025-08-26] MEDS: MELATONIN 5 MG TABLET PO (21:26)
[2025-08-26] MEDS: ATORVASTATIN 40 MG TABLET PO (21:26)
[2025-08-27] VITALS (15 sets, daily range): BP systolic 113–118; BP diastolic 55–64; PULSE 62–81; RESP 18–20; TEMP 36.1–36.8; O2SAT 96–99
[2025-08-27 05:48] LABS: Hematocrit 35.9 % (37.0-47.0); Hemoglobin 10.8 g/dL (12.0-15.0); Immature Granulocyte Percent A 5.3 % (0-0.5); Lymphocytes Absolute Auto 1.14 K/mm3 (0.9-3.2); Mean Corpuscular HGB Conc 30.1 g/dl (32-36); Mean Corpuscular Hemoglobin 28.5 pg (26-34); Mean Corpuscular Volume 94.7 fl (80-100); Nucleated Red Blood Cells Absolute Auto 0.020 K/mm3 (0.0-0.012); Nucleated Red Blood Cells Perc 0.2 % (0.0-0.2); Platelet Count Result 256 k/mm3 (150-375); Red Blood Count 3.79 M/mm3 (4.2-5.4); White Blood Count 10.2 K/mm3 (4.5-10.0)
[2025-08-27] MEDS: GABAPENTIN 300 MG CAPSULE PO ×3 (06:11→21:00)
[2025-08-27 06:19] LABS: Alanine Aminotransferase 37 U/L (6-35); Albumin Level 3.2 g/dL (3.5-5.1); Alkaline Phosphatase 64 U/L (38-126); Anion Gap -1 mmol/L (4-12); Aspartate Amino Transferase 41 U/L (14-36); Bilirubin,Total 0.6 mg/dL (0.2-1.3); Blood Urea Nitrogen 25 mg/dL (7-17); Calcium 9.0 mg/dL (8.4-10.2); Carbon Dioxide 36 mmol/L (22-30); Chloride 101 mmol/L (98-107); Estimated CRCL calculation 34 ml/min; Estimated Glomerular Filt Rate 45; Glucose 78 mg/dL (65-110); Magnesium 2.0 mg/dL (1.6-2.3); Potassium 4.0 mmol/L (3.4-5.0); Sodium 136 mmol/L (137-145); Total Protein 5.8 g/dL (6.3-8.2)
[2025-08-27] MEDS: IPRATROPIUM 0.5 MG/ALBUTEROL SULFATE 2.5 MG (BASE) AMPUL.NEB 3 ML INHALATION ×4 (07:48→20:39)
[2025-08-27] MEDS: BUDESONIDE RESPULE NEB 0.5 MG/2 ML AMP INHALATION ×2 (07:48→20:39)
--- NOTE | 2025-08-27 09:09 | P.PNIM_ITS ---
Assessment and Plan Assessment and Plan (1) Acute hypercapnic respiratory failure: Code(s): J96.02 - Acute respiratory failure with hypercapnia Status: Acute Assessment and Plan: Has history of gold grade 4, history of alpha-1 antitrypsin genotype mm * Appreciate pulmonology consultation and recommendations * Continue with supplemental O2 and BiPAP settings as recommended by pulmonology * Now on 2 liters oxygen which is her baseline * noted dyspnea has mostly resolved * Continue Prednisone, bronchodilators and buspar * Discussed with Dr Nava from Pulmonology who recommended overnight oximetry * Continue nighttime NIV with oxygen (2) Acute exacerbation of chronic obstructive pulmonary disease: Code(s): J44.1 - Chronic obstructive pulmonary disease with (acute) exacerbation Status: Acute Assessment and Plan: Recently hospitalized and discharged, now having worsening symptoms. Central to be due to poor compliance with noninvasive ventilation in overuse of supplemental O2 * As above, appreciate pulmonology recommendations * Continue with supplemental O2 per protocol * S/p IV steroid, now Prednisone * Continue with DuoNebs, expectorants, flutter valve, long acting bronchodilators * Pulmonology following (3) Tachycardia: Code(s): R00.0 - Tachycardia, unspecified Status: Acute Assessment and Plan: resolved (4) Bilateral pneumonia: Qualifiers: Lung location: lower lobe of lung Pneumonia type: due to unspecified organism Qualified Code(s): J18.9 - Pneumonia, unspecified organism Code(s): J18.9 - Pneumonia, unspecified organism Status: Acute Assessment and Plan: Repeat CXR 08/17/2025 shows persistent airspace disease * Completed ceftriaxone and azithromycin * Continue supportive care measures as above * Urine antigens negative for strep pneumonia and Legionella (5) Diastolic CHF: Qualifiers: Heart failure chronicity: unspecified Qualified Code(s): I50.30 - Unspecified diastolic (congestive) heart failure Code(s): I50.30 - Unspecified diastolic (congestive) heart failure Status: Chronic Assessment and Plan: echocardiogram shows 40-45% left ventricular diastolic dysfunction * Appreciate cardiology consultation and recommendation * Continue Lasix 40 mg IV b.i.d., plan to wean as tolerated once she demonstrates improvement * When she is off IV diuresis, she will need to be transitioned to p.o. bumetanide 1 mg b.i.d. her Cardiology recommendations as oral Lasix had not been helping improve her symptoms. Will continue spironolactone 25 mg daily * Fluid restriction 1.5 L per day. Weigh patient daily * Continue compression stockings and leg elevation * Needs outpatient follow-up with Dr. Meyers 2 weeks following discharge (6) Laceration: Status: Acute Assessment and Plan: Developed right knee laceration following fall * Received wound care in ED. Wound was irrigated. 6 sutures placed. * suture is resorbable and strips will be removed in 2 days * wound care consulted (7) CKD (chronic kidney disease) stage 3, GFR 30-59 ml/min: Qualifiers: Chronic kidney disease stage 3 subtype: unspecified whether 3a or 3b Qualified Code(s): N18.30 - Chronic kidney disease, stage 3 unspecified Code(s): N18.30 - Chronic kidney disease, stage 3 unspecified Status: Acute Assessment and Plan: Chronic * Slight elevation in creatinine today to 1.27, likely due to IV diuresis * Monitor BMP closely, hold Lasix if any further increase (8) Iron deficiency anemia: Code(s): D50.9 - Iron deficiency anemia, unspecified Status: Acute Assessment and Plan: H&H remaining stable isat 13, and Hb 11.3 S/p 1000/1000 Venofer, Stop PO Iron monitor (9) Hypertension: Qualifiers: Hypertension type: primary hypertension Qualified Code(s): I10 - Essential (primary) hypertension Code(s): I10 - Essential (primary) hypertension Status: Chronic Assessment and Plan: Blood pressure stable, 136/67 today * Continue furosemide and spironolactone * Monitor BP trends (10) Weakness: Code(s): R53.1 - Weakness Status: Acute Assessment and Plan: Progressive weakening with more frequent falls * Continue PT/OT during admission Plan Left knee effusion ? Infection vs hematoma s/p I and Drainage, wound culture pending Blood culture Day 4 on Rocephin and Vanc Discussed with Ortho for Aspiration ID consulted monitor DVT prophylaxis on Sq Lovenox PT/OT Subjective Date/time seen: 08/27/25 09:09 Interval history: Patient is comfortable at bedsie and stated that left knee pain has resolved with drainage, awaiting wound culture Review of Systems Review of Systems: All systems reviewed & are unremarkable except as noted in HPI and below Exam Narrative: GENERAL: Comfortable, no acute distress HENMT: moist mucous membranes. Dentures in place. EYES: EOM intact b/l NECK: no lymphadenopathy RESPIRATORY: Scattered wheezing, labored breathing, supplemental oxygen 2L CARDIO: irregular rhythm, irregular rate GI: Abdomen distended SKIN/EXTREMITIES: no rashes, no edema, no redness or tenderness Const: General: comfortable HENMT: Face/Nose/Sinus: Normal nares present Mouth: Yes moist mucous membranes Eyes: General: appearance normal, both eyes and all related structures Pupils: Equal, round and reactive pupils present EOM: EOMs intact bilaterally Neck: Neck: supple Thyroid: thyroid normal Resp: Effort & Inspection: normal respiratory effort (on BiPap at this time. ) Auscultation: rhonchi left upper and right upper and diminished lung sounds bilateral in the lower lung cristina Cardio: Jugular venous distension: no JVD Rate: regular rate Rhythm: regular rhythm Heart sounds: S1 normal heart sound present and S2 normal heart sound present GI: Auscultation: normal bowel sounds : General: Yes bladder normal to palpation Bimanual exam- vagina & uterus: bladder normal to palpation Skin: General skin exam: erythema (to the bilateral lower extremities, worse on left than right), abrasion (left anterior knee), laceration and wounds noted (right knee, laceration with steristrip/suture.) Trauma: abrasion (left anterior knee) and laceration Wounds: wounds noted (right knee, laceration with steristrip/suture.) Neuro: Cranial nerves: Yes Equal, round and reactive pupils present Motor exam (neuro): Abnormal motor strength present (generalized weakness) Extrem: General: pedal edema bilaterally pitting and 1+ Psych: Mental Status: mental status grossly normal Affect: normal affect Objective Data Vital Signs Vital Signs: Vital Signs - 24 hr 08/26/25 13:24 08/26/25 13:36 08/26/25 14:50 Temperature Pulse Rate 80 82 97 Respiratory Rate 16 16 24 H Blood Pressure 145/64 H Pulse Oximetry 93 Oxygen Delivery Oxygen Flow Rate Fraction of Inspired Oxygen 08/26/25 16:12 08/26/25 20:00 08/26/25 20:38 Temperature 98.2 F Pulse Rate 84 92 80 Respiratory Rate 20 18 18 Blood Pressure 116/62 Pulse Oximetry 94 94 Oxygen Delivery Nasal Cannula Oxygen Flow Rate 1 Fraction of Inspired Oxygen 28 08/26/25 20:49 08/26/25 20:49 08/26/25 22:00 Temperature 97.6 F Pulse Rate 81 92 Respiratory Rate 18 18 Blood Pressure 112/60 Pulse Oximetry 95 94 Oxygen Delivery Nasal Cannula Oxygen Flow Rate 1 Fraction of Inspired Oxygen 08/26/25 23:45 08/27/25 05:02 08/27/25 07:49 Temperature 97 F L Pulse Rate 80 64 72 Respiratory Rate 20 20 Blood Pressure 113/60 Pulse Oximetry 98 96 Oxygen Delivery Oxygen Flow Rate Fraction of Inspired Oxygen 08/27/25 07:52 08/27/25 07:57 Temperature Pulse Rate 74 Respiratory Rate 20 Blood Pressure Pulse Oximetry 97 Oxygen Delivery Nasal Cannula Oxygen Flow Rate 1 Fraction of Inspired Oxygen Intake/Output Intake/Output: Intake & Output 08/24/25 08/25/25 08/26/25 08/27/25 23:59 23:59 23:59 23:59 Intake Total 1120 710 900 100 Output Total 7393 685 7785 1400 Balance -680 110 -550 -1300 Meds/Results Medications: Active Medications Generic Name Dose Route Start Last Admin Trade Name Freq PRN Reason Stop Dose Admin Acetaminophen 650 mg 08/17/25 10:40 08/24/25 05:10 Acetaminophen 325 Mg Tablet PO 650 mg Q4H PRN Administration Mild Pain (1-3) or Fever Hydrocodone Bitart/Acetaminophen 1 tab 08/17/25 10:40 08/26/25 09:25 Hydrocodone/Acetaminophen (*Crx) 5-325 Mg Tablet PO 1 tab Q4H PRN Administration Moderate Pain (4-6) Al Hydrox/Mg Hydrox/Simethicone 30 ml 08/17/25 10:40 Mag Hydrox/Al Hydrox/Simeth 30 Ml Udc PO QID PRN Dyspepsia Albuterol 2 puff 08/17/25 14:38 Albuterol Sulfate (*Sp) Aerosol 1 Puff INHALATION Q6HRT PRN Shortness Of Breath Or Wheezing Albuterol/Ipratropium 3 ml 08/25/25 12:00 08/27/25 07:48 Ipratropium 0.5 Mg/Albuterol Sulfate 2.5 Mg (Base) Ampul.Neb 3 Ml INHALATION 3 ml [id number] JESSIE Administration Alprazolam 0.5 mg 08/17/25 14:38 08/26/25 14:48 Alprazolam (*Crx) 0.5 Mg Tablet PO 0.5 mg Q8H PRN Administration Anxiety Aspirin 81 mg 08/18/25 09:00 08/26/25 09:24 Aspirin 81 Mg Enteric Tablet PO 81 mg DAILY JESSIE Administration Atorvastatin Calcium 40 mg 08/17/25 21:00 08/26/25 21:26 Atorvastatin 40 Mg Tablet PO 40 mg HS JESSIE Administration Budesonide 0.5 mg 08/23/25 10:00 08/27/25 07:48 Budesonide Respule Neb 0.5 Mg/2 Ml Amp INHALATION 0.5 mg Q12HRT JESSIE Administration Buspirone HCl 10 mg 08/21/25 21:00 08/26/25 21:26 Buspirone Hcl 10 Mg Tablet PO 10 mg Q12HR JESSIE Administration Docusate Sodium 100 mg 08/20/25 11:23 Docusate Sodium 100 Mg Capsule PO Q12H PRN Constipation Enoxaparin Sodium 40 mg 08/17/25 11:00 08/26/25 09:27 Enoxaparin 40 Mg/0.4 Ml Syringe SUB-Q 40 mg DAILY JESSIE Administration Escitalopram Oxalate 10 mg 08/18/25 09:00 08/26/25 09:24 Escitalopram Oxalate 10 Mg Tablet PO 10 mg DAILY JESSIE Administration Ferrous Sulfate 325 mg 08/17/25 17:00 08/26/25 16:15 Ferrous Sulfate 325 Mg Tablet BY MOUTH 325 mg TID JESSIE Administration Furosemide 40 mg 08/17/25 11:00 08/26/25 16:18 Furosemide Inj 40 Mg/4 Ml Vial IV PUSH 40 mg BID JESSIE Administration Gabapentin 300 mg 08/17/25 22:00 08/27/25 06:11 Gabapentin 300 Mg Capsule PO 300 mg Q8HR JESSIE Administration Guaifenesin 1,200 mg 08/21/25 21:00 08/26/25 21:26 Guaifenesin 12 Hr 600 Mg Tabcr PO 1,200 mg Q12HR JESSIE Administration Ceftriaxone Sodium 1 gm/ 50 mls @ 100 mls/hr 08/24/25 15:00 08/26/25 16:15 Sodium Chloride IVPB 100 mls/hr Q24H JESSIE Administration Vancomycin HCl 1,250 mg in 250 mls @ 166.667 mls/hr 08/26/25 04:00 08/26/25 04:05 Vancomycin 1,250 Mg/Ns 250 Ml IVPB 166.67 mls/hr Q36H JESSIE Administration Levetiracetam 250 mg 08/17/25 21:00 08/26/25 21:26 Levetiracetam 250 Mg Tablet PO 250 mg Q12H JESSIE Administration Loratadine 5 mg 08/17/25 18:00 08/26/25 18:28 Loratadine 5 Mg Tablet PO 5 mg QPM JESSIE Administration Magnesium Hydroxide 30 ml 08/17/25 10:40 Magnesium Hydroxide Susp 30 Ml Udc PO DAILY PRN Constipation Melatonin 5 mg 08/17/25 21:00 08/26/25 21:26 Melatonin 5 Mg Tablet PO 5 mg HS JESSIE Administration Miscellaneous Information 1 each 08/27/25 00:01 Please Renew [place]. Per [employer] Procedure, It Will Discontinue If Not Renewed. XX 09/26/25 00:00 CLARIFY JESSIE Miscellaneous Information 1 each 08/26/25 00:01 Please Renew Alprazolam. Per [employer] Procedure, It Will Discontinue If Not Renewed. XX 09/25/25 00:00 CLARIFY JESSIE Multivitamins Therapeutic 1 tablet 08/18/25 09:00 08/26/25 09:25 Multivitamins Therapeutic Tab (*Bkc) PO 1 tablet DAILY JESSIE Administration Ondansetron HCl 4 mg 08/17/25 10:40 08/22/25 21:05 Ondansetron Inj 4 Mg/2 Ml Vial IV PUSH 4 mg Q6H PRN Administration Nausea And Vomiting Pantoprazole Sodium 40 mg 08/18/25 09:00 08/26/25 09:24 Pantoprazole 40 Mg Tablet PO 40 mg QAM JESSIE Administration Potassium Chloride 20 meq 08/17/25 17:00 08/26/25 16:15 Potassium Chloride 20 Meq Er Tablet PO 20 meq BID JESSIE Administration Roflumilast 500 mcg 08/24/25 09:00 08/26/25 09:24 Roflumilast 500 Mcg Tablet PO 500 mcg DAILY JESSIE Administration Ropinirole HCl 1 mg 08/17/25 17:00 08/26/25 16:16 Ropinirole Hcl 1 Mg Tablet PO 1 mg TID JESSIE Administration Spironolactone 25 mg 08/18/25 09:00 08/26/25 09:24 Spironolactone 25 Mg Tablet PO 25 mg DAILY JESSIE Administration Radiology Results: ITS Impressions Knee X-Ray 08/23/25 13:40 Impression: No acute fracture or malalignment. Chest X-Ray 08/25/25 08:52 Impression: No acute cardiopulmonary abnormality. Labs Labs: Laboratory Results - last 24 hr 08/26/25 08/26/25 08/27/25 14:34 17:07 04:47 WBC 11.4 H 10.2 H RBC 4.19 L 3.79 L Hgb 12.0 10.8 L Hct 38.9 35.9 L MCV 92.8 94.7 MCH 28.6 28.5 MCHC 30.8 L 30.1 L RDW 15.2 H 15.4 H Plt Count 289 256 MPV 10.2 10.9 H Immature Gran % (Auto) 5.3 H Neut % (Auto) 68.5 Lymph % (Auto) 11.2 L [place] % (Auto) 9.9 H Eos % (Auto) 4.2 Baso % (Auto) 0.9 Lymph # (Auto) 1.14 [place] # (Auto) 1.0 H Eos # (Auto) 0.4 H Baso # (Auto) 0.1 Abs Immat Gran (auto) 0.54 H Absolute Neuts (auto) 7.0 H Absolute Nucleated RBC 0.020 H Nucleated RBC % 0.2 Sodium 138 136 L Potassium 4.3 4.0 Chloride 102 101 Carbon Dioxide 34 H 36 H Anion Gap 2 L -1 L BUN 24 H 25 H Creatinine 1.27 H 1.17 H Estim Creat Clear Calc 31 34 Estimated GFR 41 L 45 L Glucose 113 H 78 Calcium 9.6 9.0 Magnesium 2.0 Total Bilirubin 0.5 0.6 AST 38 H 41 H ALT 31 37 H Alkaline Phosphatase 78 64 Troponin I < 0.012 C-Reactive Protein 0.7 Total Protein 6.0 L 5.8 L Albumin 3.4 L 3.2 L Quality VTE Prophylaxis VTE prophylaxis: pharmacologic ordered
[2025-08-27] MEDS: ESCITALOPRAM OXALATE 10 MG TABLET PO (10:15)
[2025-08-27] MEDS: guaiFENesin 12 HR 600 MG TABCR 1200 MG PO ×2 (10:15→21:00)
[2025-08-27] MEDS: FERROUS SULFATE 325 MG TABLET BY MOUTH ×3 (10:15→18:17)
[2025-08-27] MEDS: ASPIRIN 81 MG ENTERIC TABLET PO (10:15)
[2025-08-27] MEDS: ENOXAPARIN 40 MG/0.4 ML SYRINGE SUB-Q (10:15)
[2025-08-27] MEDS: FUROSEMIDE INJ 40 MG/4 ML VIAL IV PUSH ×2 (10:15→18:52)
[2025-08-27] MEDS: MULTIVITAMINS THERAPEUTIC TAB (*BKC) 1 TABLET PO (10:16)
[2025-08-27] MEDS: ROFLUMILAST 500 MCG TABLET PO (10:16)
[2025-08-27] MEDS: POTASSIUM CHLORIDE 20 MEQ ER TABLET PO ×2 (10:16→18:18)
[2025-08-27] MEDS: PANTOPRAZOLE 40 MG TABLET PO (10:16)
[2025-08-27] MEDS: SPIRONOLACTONE 25 MG TABLET PO (10:16)
[2025-08-27] MEDS: cefTRIAXone 1 GM in SODIUM CHLORIDE 0.9% IV 50 ML 100 ML IVPB (16:24)
[2025-08-27] MEDS: ALPRAZolam (*CRX) 0.5 MG TABLET PO (18:17)
[2025-08-27] MEDS: ACETAMINOPHEN 325 MG TABLET 650 MG PO (18:17)
[2025-08-27] MEDS: LORATADINE 5 MG TABLET PO (18:18)
[2025-08-27] MEDS: VANCOMYCIN 1,500 MG/NS 500 ML 1,500 MG/500 ML BAG 250 MG IVPB (18:52)
[2025-08-27] MEDS: MELATONIN 5 MG TABLET PO (21:00)
[2025-08-27] MEDS: ATORVASTATIN 40 MG TABLET PO (21:00)
[2025-08-28] VITALS (14 sets, daily range): BP systolic 107–127; BP diastolic 51–56; PULSE 69–97; RESP 14–20; TEMP 36.4–36.5; O2SAT 96–98
[2025-08-28] MEDS: GABAPENTIN 300 MG CAPSULE PO ×3 (05:46→21:23)
[2025-08-28] MEDS: IPRATROPIUM 0.5 MG/ALBUTEROL SULFATE 2.5 MG (BASE) AMPUL.NEB 3 ML INHALATION ×4 (07:30→19:44)
[2025-08-28] MEDS: BUDESONIDE RESPULE NEB 0.5 MG/2 ML AMP INHALATION ×2 (07:30→19:44)
[2025-08-28] MEDS: MULTIVITAMINS THERAPEUTIC TAB (*BKC) 1 TABLET PO (08:08)
[2025-08-28] MEDS: guaiFENesin 12 HR 600 MG TABCR 1200 MG PO ×2 (08:08→21:22)
[2025-08-28] MEDS: SPIRONOLACTONE 25 MG TABLET PO (08:08)
[2025-08-28] MEDS: POTASSIUM CHLORIDE 20 MEQ ER TABLET PO ×2 (08:08→17:02)
[2025-08-28] MEDS: ASPIRIN 81 MG ENTERIC TABLET PO (08:08)
[2025-08-28] MEDS: PANTOPRAZOLE 40 MG TABLET PO (08:09)
[2025-08-28] MEDS: FERROUS SULFATE 325 MG TABLET BY MOUTH ×3 (08:09→17:02)
[2025-08-28] MEDS: ROFLUMILAST 500 MCG TABLET PO (08:09)
[2025-08-28] MEDS: ESCITALOPRAM OXALATE 10 MG TABLET PO (08:09)
[2025-08-28] MEDS: FUROSEMIDE INJ 40 MG/4 ML VIAL IV PUSH ×2 (08:20→17:02)
[2025-08-28] MEDS: ENOXAPARIN 40 MG/0.4 ML SYRINGE SUB-Q (08:21)
--- NOTE | 2025-08-28 11:37 | P.PNIM_ITS ---
Assessment and Plan Assessment and Plan (1) Acute hypercapnic respiratory failure: Code(s): J96.02 - Acute respiratory failure with hypercapnia Status: Acute Assessment and Plan: Has history of gold grade 4, history of alpha-1 antitrypsin genotype mm * Appreciate pulmonology consultation and recommendations * Continue with supplemental O2 and BiPAP settings as recommended by pulmonology * Now on 2 liters oxygen which is her baseline * noted dyspnea has mostly resolved * Continue Prednisone, bronchodilators and buspar * Discussed with Dr Nava from Pulmonology who recommended overnight oximetry * Continue nighttime NIV with oxygen (2) Acute exacerbation of chronic obstructive pulmonary disease: Code(s): J44.1 - Chronic obstructive pulmonary disease with (acute) exacerbation Status: Acute Assessment and Plan: Recently hospitalized and discharged, now having worsening symptoms. [place] to be due to poor compliance with noninvasive ventilation in overuse of supplemental O2 * As above, appreciate pulmonology recommendations * Continue with supplemental O2 per protocol * S/p IV steroid, now Prednisone * Continue with DuoNebs, expectorants, flutter valve, long acting bronchodilators * Pulmonology following (3) Tachycardia: Code(s): R00.0 - Tachycardia, unspecified Status: Acute Assessment and Plan: resolved (4) Bilateral pneumonia: Qualifiers: Lung location: lower lobe of lung Pneumonia type: due to unspecified organism Qualified Code(s): J18.9 - Pneumonia, unspecified organism Code(s): J18.9 - Pneumonia, unspecified organism Status: Acute Assessment and Plan: Repeat CXR 08/17/2025 shows persistent airspace disease * Completed ceftriaxone and azithromycin * Continue supportive care measures as above * Urine antigens negative for strep pneumonia and Legionella (5) Diastolic CHF: Qualifiers: Heart failure chronicity: unspecified Qualified Code(s): I50.30 - Unspecified diastolic (congestive) heart failure Code(s): I50.30 - Unspecified diastolic (congestive) heart failure Status: Chronic Assessment and Plan: echocardiogram shows 40-45% left ventricular diastolic dysfunction * Appreciate cardiology consultation and recommendation * Continue Lasix 40 mg IV b.i.d., plan to wean as tolerated once she demonstrates improvement * When she is off IV diuresis, she will need to be transitioned to p.o. bumetanide 1 mg b.i.d. her Cardiology recommendations as oral Lasix had not been helping improve her symptoms. Will continue spironolactone 25 mg daily * Fluid restriction 1.5 L per day. Weigh patient daily * Continue compression stockings and leg elevation * Needs outpatient follow-up with Dr. Meyers 2 weeks following discharge (6) Laceration: Status: Acute Assessment and Plan: Developed right knee laceration following fall * Received wound care in ED. Wound was irrigated. 6 sutures placed. * suture is resorbable and strips will be removed in 1 days * wound care consulted (7) CKD (chronic kidney disease) stage 3, GFR 30-59 ml/min: Qualifiers: Chronic kidney disease stage 3 subtype: unspecified whether 3a or 3b Qualified Code(s): N18.30 - Chronic kidney disease, stage 3 unspecified Code(s): N18.30 - Chronic kidney disease, stage 3 unspecified Status: Acute Assessment and Plan: Chronic * Slight elevation in creatinine today to 1.27, likely due to IV diuresis * Monitor BMP closely, hold Lasix if any further increase (8) Iron deficiency anemia: Code(s): D50.9 - Iron deficiency anemia, unspecified Status: Acute Assessment and Plan: H&H remaining stable isat 13, and Hb 11.3 S/p 1000/1000 Venofer, Stop PO Iron monitor (9) Hypertension: Qualifiers: Hypertension type: primary hypertension Qualified Code(s): I10 - Essential (primary) hypertension Code(s): I10 - Essential (primary) hypertension Status: Chronic Assessment and Plan: Blood pressure stable, 136/67 today * Continue furosemide and spironolactone * Monitor BP trends (10) Weakness: Code(s): R53.1 - Weakness Status: Acute Assessment and Plan: Progressive weakening with more frequent falls * Continue PT/OT during admission Plan Left knee effusion ? Infection vs hematoma s/p I and Drainage, wound culture pending Blood culture Day 5 on Rocephin and Vanc awaiting joint fluid culture and ID eval ID consulted monitor DVT prophylaxis on Sq Lovenox PT/OT Subjective Date/time seen: 08/28/25 11:37 Interval history: Patient is comfortable at bedside awaiting wound culture and ID eval Review of Systems Review of Systems: All systems reviewed & are unremarkable except as noted in HPI and below Exam Narrative: GENERAL: Comfortable, no acute distress HENMT: moist mucous membranes. Dentures in place. EYES: EOM intact b/l NECK: no lymphadenopathy RESPIRATORY: Scattered wheezing, labored breathing, supplemental oxygen 2L CARDIO: irregular rhythm, irregular rate GI: Abdomen distended SKIN/EXTREMITIES: no rashes, no edema, no redness or tenderness Const: General: comfortable HENMT: Face/Nose/Sinus: Normal nares present Mouth: Yes moist mucous membranes Eyes: General: appearance normal, both eyes and all related structures Pupils: Equal, round and reactive pupils present EOM: EOMs intact bilaterally Neck: Neck: supple Thyroid: thyroid normal Resp: Effort & Inspection: normal respiratory effort (on BiPap at this time. ) Auscultation: rhonchi left upper and right upper and diminished lung sounds bilateral in the lower lung cristina Cardio: Jugular venous distension: no JVD Rate: regular rate Rhythm: regular rhythm Heart sounds: S1 normal heart sound present and S2 normal heart sound present GI: Auscultation: normal bowel sounds : General: Yes bladder normal to palpation Bimanual exam- vagina & uterus: bladder normal to palpation Skin: General skin exam: erythema (to the bilateral lower extremities, worse on left than right), abrasion (left anterior knee), laceration and wounds noted (right knee, laceration with steristrip/suture.) Trauma: abrasion (left anterior knee) and laceration Wounds: wounds noted (right knee, laceration with steristrip/suture.) Neuro: Cranial nerves: Yes Equal, round and reactive pupils present Motor exam (neuro): Abnormal motor strength present (generalized weakness) Extrem: General: pedal edema bilaterally pitting and 1+ Psych: Mental Status: mental status grossly normal Affect: normal affect Objective Data Vital Signs Vital Signs: Vital Signs - 24 hr 08/27/25 13:18 08/27/25 13:23 08/27/25 14:00 Temperature 98.2 F Pulse Rate 74 78 62 Respiratory Rate 20 20 20 Blood Pressure 118/64 Pulse Oximetry 98 Oxygen Delivery Oxygen Flow Rate 08/27/25 17:40 08/27/25 17:45 08/27/25 20:00 Temperature Pulse Rate 80 76 Respiratory Rate 20 20 Blood Pressure Pulse Oximetry 97 Oxygen Delivery Nasal Cannula Oxygen Flow Rate 1 08/27/25 20:41 08/27/25 20:42 08/27/25 22:00 Temperature 97.1 F L Pulse Rate 78 81 Respiratory Rate 20 18 Blood Pressure 117/55 L Pulse Oximetry 98 99 Oxygen Delivery Nasal Cannula Oxygen Flow Rate 1 08/27/25 23:36 08/28/25 03:30 08/28/25 06:00 Temperature 97.6 F Pulse Rate 81 75 90 Respiratory Rate 18 Blood Pressure 127/51 L Pulse Oximetry 98 98 97 Oxygen Delivery Oxygen Flow Rate 08/28/25 07:31 08/28/25 07:31 08/28/25 07:46 Temperature Pulse Rate 69 76 Respiratory Rate 20 20 Blood Pressure Pulse Oximetry 98 Oxygen Delivery Nasal Cannula Oxygen Flow Rate 1 08/28/25 08:00 08/28/25 11:16 08/28/25 11:23 Temperature Pulse Rate 84 84 Respiratory Rate 20 20 Blood Pressure Pulse Oximetry 98 Oxygen Delivery Nasal Cannula Oxygen Flow Rate 1 Intake/Output Intake/Output: Intake & Output 08/25/25 08/26/25 08/27/25 08/28/25 23:59 23:59 23:59 23:59 Intake Total 667 592 7502 440 Output Total 600 1450 1800 500 Balance 110 -500 70 -60 Meds/Results Medications: Active Medications Generic Name Dose Route Start Last Admin Trade Name Freq PRN Reason Stop Dose Admin Acetaminophen 650 mg 08/17/25 10:40 08/27/25 18:17 Acetaminophen 325 Mg Tablet PO 650 mg Q4H PRN Administration Mild Pain (1-3) or Fever Hydrocodone Bitart/Acetaminophen 1 tab 08/27/25 20:07 Hydrocodone/Acetaminophen (*Crx) 5-325 Mg Tablet PO Q4H PRN Pain Rated 4-6 Al Hydrox/Mg Hydrox/Simethicone 30 ml 08/17/25 10:40 Mag Hydrox/Al Hydrox/Simeth 30 Ml Udc PO QID PRN Dyspepsia Albuterol 2 puff 08/17/25 14:38 Albuterol Sulfate (*Sp) Aerosol 1 Puff INHALATION Q6HRT PRN Shortness Of Breath Or Wheezing Albuterol/Ipratropium 3 ml 08/25/25 12:00 08/28/25 11:15 Ipratropium 0.5 Mg/Albuterol Sulfate 2.5 Mg (Base) Ampul.Neb 3 Ml INHALATION 3 ml [id number] JESSIE Administration Alprazolam 0.5 mg 08/27/25 17:37 08/27/25 18:17 Alprazolam (*Crx) 0.5 Mg Tablet PO 08/30/25 00:00 0.5 mg Q8HR PRN Administration Anxiety Aspirin 81 mg 08/18/25 09:00 08/28/25 08:08 Aspirin 81 Mg Enteric Tablet PO 81 mg DAILY JESSIE Administration Atorvastatin Calcium 40 mg 08/17/25 21:00 08/27/25 21:00 Atorvastatin 40 Mg Tablet PO 40 mg HS JESSIE Administration Budesonide 0.5 mg 08/23/25 10:00 08/28/25 07:30 Budesonide Respule Neb 0.5 Mg/2 Ml Amp INHALATION 0.5 mg Q12HRT JESSIE Administration Buspirone HCl 10 mg 08/21/25 21:00 08/28/25 08:09 Buspirone Hcl 10 Mg Tablet PO 10 mg Q12HR JESSIE Administration Docusate Sodium 100 mg 08/20/25 11:23 Docusate Sodium 100 Mg Capsule PO Q12H PRN Constipation Enoxaparin Sodium 40 mg 08/17/25 11:00 08/28/25 08:21 Enoxaparin 40 Mg/0.4 Ml Syringe SUB-Q 40 mg DAILY JESSIE Administration Escitalopram Oxalate 10 mg 08/18/25 09:00 08/28/25 08:09 Escitalopram Oxalate 10 Mg Tablet PO 10 mg DAILY JESSIE Administration Ferrous Sulfate 325 mg 08/17/25 17:00 08/28/25 08:09 Ferrous Sulfate 325 Mg Tablet BY MOUTH 325 mg TID JESSIE Administration Furosemide 40 mg 08/17/25 11:00 08/28/25 08:20 Furosemide Inj 40 Mg/4 Ml Vial IV PUSH 40 mg BID JESSIE Administration Gabapentin 300 mg 08/17/25 22:00 08/28/25 05:46 Gabapentin 300 Mg Capsule PO 300 mg Q8HR JESSIE Administration Guaifenesin 1,200 mg 08/21/25 21:00 08/28/25 08:08 Guaifenesin 12 Hr 600 Mg Tabcr PO 1,200 mg Q12HR JESSIE Administration Ceftriaxone Sodium 1 gm/ 50 mls @ 100 mls/hr 08/24/25 15:00 08/27/25 16:24 Sodium Chloride IVPB 100 mls/hr Q24H JESSIE Administration Vancomycin HCl 1,500 mg in 500 mls @ 250 mls/hr 08/27/25 18:00 08/27/25 21:01 Vancomycin 1,500 Mg/Ns 500 Ml IVPB Infused Q24H JESSIE Infusion Levetiracetam 250 mg 08/17/25 21:00 08/28/25 08:08 Levetiracetam 250 Mg Tablet PO 250 mg Q12H JESSIE Administration Loratadine 5 mg 08/17/25 18:00 08/27/25 18:18 Loratadine 5 Mg Tablet PO 5 mg QPM JESSIE Administration Magnesium Hydroxide 30 ml 08/17/25 10:40 Magnesium Hydroxide Susp 30 Ml Udc PO DAILY PRN Constipation Melatonin 5 mg 08/17/25 21:00 08/27/25 21:00 Melatonin 5 Mg Tablet PO 5 mg HS JESSIE Administration Multivitamins Therapeutic 1 tablet 08/18/25 09:00 08/28/25 08:08 Multivitamins Therapeutic Tab (*Bkc) PO 1 tablet DAILY JESSIE Administration Ondansetron HCl 4 mg 08/17/25 10:40 08/22/25 21:05 Ondansetron Inj 4 Mg/2 Ml Vial IV PUSH 4 mg Q6H PRN Administration Nausea And Vomiting Pantoprazole Sodium 40 mg 08/18/25 09:00 08/28/25 08:09 Pantoprazole 40 Mg Tablet PO 40 mg QAM JESSIE Administration Potassium Chloride 20 meq 08/17/25 17:00 08/28/25 08:08 Potassium Chloride 20 Meq Er Tablet PO 20 meq BID JESSIE Administration Roflumilast 500 mcg 08/24/25 09:00 08/28/25 08:09 Roflumilast 500 Mcg Tablet PO 500 mcg DAILY JESSIE Administration Ropinirole HCl 1 mg 08/17/25 17:00 08/28/25 08:08 Ropinirole Hcl 1 Mg Tablet PO 1 mg TID JESSIE Administration Spironolactone 25 mg 08/18/25 09:00 08/28/25 08:08 Spironolactone 25 Mg Tablet PO 25 mg DAILY JESSIE Administration Radiology Results: ITS Impressions Knee X-Ray 08/23/25 13:40 Impression: No acute fracture or malalignment. Chest X-Ray 08/25/25 08:52 Impression: No acute cardiopulmonary abnormality. Labs Labs: Laboratory Results - last 24 hr 08/27/25 16:00 Vancomycin Trough 10.2 Quality VTE Prophylaxis VTE prophylaxis: pharmacologic ordered
[2025-08-28] MEDS: cefTRIAXone 1 GM in SODIUM CHLORIDE 0.9% IV 50 ML 100 ML IVPB (15:13)
[2025-08-28] MEDS: ALPRAZolam (*CRX) 0.5 MG TABLET PO (17:02)
--- NOTE | 2025-08-28 18:42 | WPDIDCN ---
Assessment and Plan Assessment and plan (1) Infection of left knee: Code(s): M00.9 - Pyogenic arthritis, unspecified Status: Acute Plan ASSESSMENT: 1. left knee hematoma--doubt infection; had I&D on 08/26/25 2. COPD 3. CKD 4. HTN RECOMMENDATIONS: -Stop abx and monitor d/w pharmacy Pt was seen via video telehealth consultation with the assistance of staff. Chart, data and patient info reviewed. Patient was located at [facility] while I was in my [place] office. Pt gave consent. HPI Data of Consult Date/Time: 08/28/25 18:42 Requesting Physician: Harry evans Oca, MD Primary Care Provider: Salima Donahue MD Consult Narrative Reason for consult: possible left knee abscess Narrative: Teresa Levi is a 75 year old female with pmhx/o CoPD, CKD, HTN, had recent fall with trauma to bilateral knees. Had laceration of right knee which was sutured. Left knee with possible infected hematoma. Pt had I&D of left knee on 08/26. No signs of infection. On abx. 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 Chronic obstructive pulmonary disease Chronic kidney disease, stage 3 Pulmonary embolism (11/2021) Small cell lung cancer Status post chemoradiotherapy. Dyslipidemia Diastolic dysfunction Surgical History Surgical History History of incisional hernia repair History of inguinal hernia repair History of heart artery stent History of cardiac catheterization History of left nephrectomy At age 3, done for unclear reasons. History of abdominal aortic aneurysm repair Family History Family History Sibling Family history of arthritis Lung transplant status, bilateral COPD (chronic obstructive pulmonary disease) Colon cancer Father Melanoma Mother No problems noted. Social History Social History Social History: [id number]: Isabela Ponce, friend. Code status: Full code. Smoking packs per day: 1 Smoking cigarettes per day: 20.0 Years smoked: 30 Smoking pack-years: 30.00 Smoking status: Former smoker Tobacco type: cigarettes Second hand tobacco smoke exposure: No Smoking end date: 09/14/05 Alcohol intake: never Alcohol use details: No alcohol since 2005. Substance use: never Substance use type: does not use Other substance usage details: one pack per day for 40 years Lack of Transportation: No Lack of Food: Never True Current Housing: I Have Housing Concerned About Future Housing: No Difficulty Paying Gas/Electric Bills: No Difficulty Paying for Meds: No Currently Unemployed: No Education: High School Diploma/GED Difficulty w/ Childcare or Family Care: No Additional living arrangements comments: Lives in assisted living. Wheelchair-bound due to right-sided deficits from prior CVA. Spiritual care concerns: No Meds Home Medications and Allergies Home Medications ?Medication ?Instructions ?Recorded ?Confirmed ?Type acetaminophen 500 mg capsule 500 mg PO Q6H PRN Pain (Scale 11/24/19 08/17/25 History Score 1-3) aspirin 81 mg tablet,delayed 81 mg PO DAILY 11/24/19 08/17/25 History release (Adult Aspirin Regimen) atorvastatin 40 mg tablet 40 mg PO HS 11/24/19 08/17/25 History levetiracetam 250 mg tablet 250 mg PO Q12H 11/24/19 08/17/25 History (Keppra) melatonin 5 mg capsule 5 mg PO HS 11/24/19 08/17/25 History potassium chloride 20 mEq 20 meq PO BID 11/24/19 08/17/25 History tablet,extended release multivitamin with folic acid 400 1 tablet PO DAILY 03/10/22 08/17/25 History mcg tablet (Daily-Annie (with folic acid)) pantoprazole 40 mg tablet,delayed 40 mg PO QAM #30 tabs 05/06/22 08/17/25 Rx release comp.stocking,knee,long,medium #12 ea 06/02/22 08/17/25 Rx furosemide 40 mg tablet (Lasix) 40 mg PO BID #60 tabs 06/02/22 08/17/25 Rx alprazolam 0.5 mg tablet 0.5 mg PO Q8-12H PRN Anxiety 06/29/23 08/17/25 History ferrous sulfate 325 mg (65 mg 325 mg PO TID 12/02/23 08/17/25 History iron) tablet Advair HFA 230 mcg-21 See Rx Instructions .Route 05/23/25 08/17/25 Rx mcg/actuation aerosol inhaler .COMPLEX #12 grams (fluticasone propion-salmeterol) albuterol sulfate 90 mcg/actuation 2 puff inhalation Q6H PRN 07/06/25 08/17/25 Rx aerosol inhaler shortness of breath or wheezing #8.5 grams escitalopram oxalate 10 mg tablet 10 mg PO DAILY 07/18/25 08/17/25 History levocetirizine 5 mg tablet 5 mg PO QPM 07/18/25 08/17/25 History ropinirole 2 mg tablet 1 mg PO TID 07/18/25 08/17/25 History ergocalciferol (vitamin D2) 1,250 1,250 mcg PO WEEKLY 07/30/25 08/17/25 History mcg (50,000 unit) capsule (Vitamin D2) gabapentin 300 mg capsule 300 mg PO TID 07/30/25 08/17/25 History spironolactone 25 mg tablet 25 mg PO DAILY 07/30/25 08/17/25 History (Aldactone) umeclidinium 62.5 mcg/actuation See Rx Instructions .Route 07/31/25 08/17/25 Rx blister powder for inhalation .COMPLEX #30 grams (Incruse Ellipta) mucus clearing device #10 ea 08/04/25 08/17/25 Rx guaifenesin 400 mg tablet (Mucus 400 mg PO DAILY 08/17/25 08/17/25 History Relief) Allergies Allergy/AdvReac Type Severity Reaction Status Date / Time Iodinated Contrast Media Allergy Unknown Rash Verified 08/17/25 13:55 latex Allergy Unknown Unknown Verified 08/17/25 13:55 adhesive tape AdvReac Rash Verified 08/17/25 13:55 nickel AdvReac Rash Verified 08/17/25 13:55 Vital Signs Vital Signs - 24 hr 08/27/25 20:00 08/27/25 20:41 08/27/25 20:42 Temperature Pulse Rate 78 Respiratory Rate 20 Blood Pressure Pulse Oximetry 97 98 Oxygen Delivery Nasal Cannula Nasal Cannula Oxygen Flow Rate 1 1 08/27/25 22:00 08/27/25 23:36 08/28/25 03:30 Temperature 97.1 F L Pulse Rate 81 81 75 Respiratory Rate 18 Blood Pressure 117/55 L Pulse Oximetry 99 98 98 Oxygen Delivery Oxygen Flow Rate 08/28/25 06:00 08/28/25 07:31 08/28/25 07:31 Temperature 97.6 F Pulse Rate 90 69 Respiratory Rate 18 20 Blood Pressure 127/51 L Pulse Oximetry 97 98 Oxygen Delivery Nasal Cannula Oxygen Flow Rate 1 08/28/25 07:46 08/28/25 08:00 08/28/25 11:16 Temperature Pulse Rate 76 84 Respiratory Rate 20 20 Blood Pressure Pulse Oximetry 98 Oxygen Delivery Nasal Cannula Oxygen Flow Rate 1 08/28/25 11:23 08/28/25 14:00 08/28/25 15:35 Temperature 97.5 F L Pulse Rate 84 83 82 Respiratory Rate 20 14 20 Blood Pressure 110/53 L Pulse Oximetry 98 Oxygen Delivery Oxygen Flow Rate 08/28/25 15:45 Temperature Pulse Rate 84 Respiratory Rate 20 Blood Pressure Pulse Oximetry Oxygen Delivery Oxygen Flow Rate Exam Narrative: NAD, non-toxic, on o2 NC right knee with incision and steri strips left knee with wound inferior to knee, +ecchymoses, dry, no draiange Results Labs 08/27/25 04:47 08/27/25 04:47
[2025-08-28] MEDS: ATORVASTATIN 40 MG TABLET PO (21:22)
[2025-08-28] MEDS: MELATONIN 5 MG TABLET PO (21:23)
[2025-08-29] VITALS (11 sets, daily range): BP systolic 118–131; BP diastolic 51–65; PULSE 76–108; RESP 12–20; TEMP 36.4–36.8; O2SAT 93–97
[2025-08-29 05:21] LABS: Hematocrit 37.7 % (37.0-47.0); Hemoglobin 11.4 g/dL (12.0-15.0); Immature Granulocyte Percent A 4.2 % (0-0.5); Lymphocytes Absolute Auto 1.08 K/mm3 (0.9-3.2); Mean Corpuscular HGB Conc 30.2 g/dl (32-36); Mean Corpuscular Hemoglobin 29.1 pg (26-34); Mean Corpuscular Volume 96.2 fl (80-100); Nucleated Red Blood Cells Absolute Auto 0.000 K/mm3 (0.0-0.012); Nucleated Red Blood Cells Perc 0.0 % (0.0-0.2); Platelet Count Result 282 k/mm3 (150-375); Red Blood Count 3.92 M/mm3 (4.2-5.4); White Blood Count 11.0 K/mm3 (4.5-10.0)
[2025-08-29 05:33] LABS: Alanine Aminotransferase 48 U/L (6-35); Albumin Level 3.4 g/dL (3.5-5.1); Alkaline Phosphatase 64 U/L (38-126); Anion Gap 1 mmol/L (4-12); Aspartate Amino Transferase 48 U/L (14-36); Bilirubin,Total 0.6 mg/dL (0.2-1.3); Blood Urea Nitrogen 19 mg/dL (7-17); Calcium 8.6 mg/dL (8.4-10.2); Carbon Dioxide 35 mmol/L (22-30); Chloride 100 mmol/L (98-107); Estimated CRCL calculation 37 ml/min; Estimated Glomerular Filt Rate 50; Glucose 79 mg/dL (65-110); Magnesium 2.0 mg/dL (1.6-2.3); Potassium 4.2 mmol/L (3.4-5.0); Sodium 136 mmol/L (137-145); Total Protein 6.2 g/dL (6.3-8.2)
[2025-08-29] MEDS: GABAPENTIN 300 MG CAPSULE PO ×3 (05:57→21:42)
[2025-08-29] MEDS: IPRATROPIUM 0.5 MG/ALBUTEROL SULFATE 2.5 MG (BASE) AMPUL.NEB 3 ML INHALATION ×4 (07:56→20:20)
[2025-08-29] MEDS: BUDESONIDE RESPULE NEB 0.5 MG/2 ML AMP INHALATION ×2 (07:56→20:20)
[2025-08-29] MEDS: ROFLUMILAST 500 MCG TABLET PO (08:47)
[2025-08-29] MEDS: PANTOPRAZOLE 40 MG TABLET PO (08:47)
[2025-08-29] MEDS: FERROUS SULFATE 325 MG TABLET BY MOUTH ×3 (08:47→17:03)
[2025-08-29] MEDS: SPIRONOLACTONE 25 MG TABLET PO (08:47)
[2025-08-29] MEDS: guaiFENesin 12 HR 600 MG TABCR 1200 MG PO ×2 (08:47→21:42)
[2025-08-29] MEDS: ESCITALOPRAM OXALATE 10 MG TABLET PO (08:47)
[2025-08-29] MEDS: MULTIVITAMINS THERAPEUTIC TAB (*BKC) 1 TABLET PO (08:48)
[2025-08-29] MEDS: POTASSIUM CHLORIDE 20 MEQ ER TABLET PO ×2 (08:48→17:03)
[2025-08-29] MEDS: ASPIRIN 81 MG ENTERIC TABLET PO (08:48)
[2025-08-29] MEDS: ENOXAPARIN 40 MG/0.4 ML SYRINGE SUB-Q (08:48)
[2025-08-29] MEDS: FUROSEMIDE INJ 40 MG/4 ML VIAL IV PUSH (08:48)
--- NOTE | 2025-08-29 12:16 | P.PNIM_ITS ---
Assessment and Plan Assessment and Plan (1) Acute hypercapnic respiratory failure: Code(s): J96.02 - Acute respiratory failure with hypercapnia Status: Acute Assessment and Plan: Has history of gold grade 4, history of alpha-1 antitrypsin genotype mm * Appreciate pulmonology consultation and recommendations * Continue with supplemental O2 and BiPAP settings as recommended by pulmonology * Now on 2 liters oxygen which is her baseline * noted dyspnea has mostly resolved * Continue Prednisone, bronchodilators and buspar * Discussed with Dr Nava from Pulmonology who recommended overnight oximetry * Continue nighttime NIV with oxygen (2) Acute exacerbation of chronic obstructive pulmonary disease: Code(s): J44.1 - Chronic obstructive pulmonary disease with (acute) exacerbation Status: Acute Assessment and Plan: Recently hospitalized and discharged, now having worsening symptoms. [place] to be due to poor compliance with noninvasive ventilation in overuse of supplemental O2 * As above, appreciate pulmonology recommendations * Continue with supplemental O2 per protocol * S/p IV steroid, now Prednisone * Continue with DuoNebs, expectorants, flutter valve, long acting bronchodilators * Pulmonology following (3) Tachycardia: Code(s): R00.0 - Tachycardia, unspecified Status: Acute Assessment and Plan: resolved (4) Bilateral pneumonia: Qualifiers: Lung location: lower lobe of lung Pneumonia type: due to unspecified organism Qualified Code(s): J18.9 - Pneumonia, unspecified organism Code(s): J18.9 - Pneumonia, unspecified organism Status: Acute Assessment and Plan: Repeat CXR 08/17/2025 shows persistent airspace disease * Completed ceftriaxone and azithromycin * Continue supportive care measures as above * Urine antigens negative for strep pneumonia and Legionella (5) Diastolic CHF: Qualifiers: Heart failure chronicity: unspecified Qualified Code(s): I50.30 - Unspecified diastolic (congestive) heart failure Code(s): I50.30 - Unspecified diastolic (congestive) heart failure Status: Chronic Assessment and Plan: echocardiogram shows 40-45% left ventricular diastolic dysfunction * Appreciate cardiology consultation and recommendation * Continue Lasix 40 mg IV b.i.d., plan to wean as tolerated once she demonstrates improvement * When she is off IV diuresis, she will need to be transitioned to p.o. bumetanide 1 mg b.i.d. her Cardiology recommendations as oral Lasix had not been helping improve her symptoms. Will continue spironolactone 25 mg daily * Fluid restriction 1.5 L per day. Weigh patient daily * Continue compression stockings and leg elevation * Needs outpatient follow-up with Dr. Meyers 2 weeks following discharge (6) Laceration: Status: Acute Assessment and Plan: Developed right knee laceration following fall * Received wound care in ED. Wound was irrigated. 6 sutures placed. * suture is resorbable and strips will be removed in 1 days * wound care consulted (7) CKD (chronic kidney disease) stage 3, GFR 30-59 ml/min: Qualifiers: Chronic kidney disease stage 3 subtype: unspecified whether 3a or 3b Qualified Code(s): N18.30 - Chronic kidney disease, stage 3 unspecified Code(s): N18.30 - Chronic kidney disease, stage 3 unspecified Status: Acute Assessment and Plan: Chronic * Slight elevation in creatinine today to 1.27, likely due to IV diuresis * Monitor BMP closely, hold Lasix if any further increase (8) Iron deficiency anemia: Code(s): D50.9 - Iron deficiency anemia, unspecified Status: Acute Assessment and Plan: H&H remaining stable isat 13, and Hb 11.3 S/p 1000/1000 Venofer, Stop PO Iron monitor (9) Hypertension: Qualifiers: Hypertension type: primary hypertension Qualified Code(s): I10 - Essential (primary) hypertension Code(s): I10 - Essential (primary) hypertension Status: Chronic Assessment and Plan: Blood pressure stable, 136/67 today * Continue furosemide and spironolactone * Monitor BP trends (10) Weakness: Code(s): R53.1 - Weakness Status: Acute Assessment and Plan: Progressive weakening with more frequent falls * Continue PT/OT during admission Plan Left knee effusion ? Infection vs hematoma s/p I and Drainage, wound culture pending Blood culture Day 5 on Rocephin and Vanc awaiting joint fluid culture and ID eval ID consulted monitor DVT prophylaxis on Sq Lovenox PT/OT Subjective Date/time seen: 08/29/25 12:16 Interval history: No acute events overnight. Changed to furosemide from IV to p.o.. Will discharge tomorrow Review of Systems Review of Systems: All systems reviewed & are unremarkable except as noted in HPI and below Exam Narrative: GENERAL: Comfortable, no acute distress HENMT: moist mucous membranes. Dentures in place. EYES: EOM intact b/l NECK: no lymphadenopathy RESPIRATORY: Scattered wheezing, labored breathing, supplemental oxygen 2L CARDIO: irregular rhythm, irregular rate GI: Abdomen distended SKIN/EXTREMITIES: no rashes, no edema, no redness or tenderness Const: General: comfortable HENMT: Face/Nose/Sinus: Normal nares present Mouth: Yes moist mucous membranes Eyes: General: appearance normal, both eyes and all related structures Pupils: Equal, round and reactive pupils present EOM: EOMs intact bilaterally Neck: Neck: supple Thyroid: thyroid normal Resp: Effort & Inspection: normal respiratory effort (on BiPap at this time. ) Auscultation: rhonchi left upper and right upper and diminished lung sounds bilateral in the lower lung cristina Cardio: Jugular venous distension: no JVD Rate: regular rate Rhythm: regular rhythm Heart sounds: S1 normal heart sound present and S2 normal heart sound present GI: Auscultation: normal bowel sounds : General: Yes bladder normal to palpation Bimanual exam- vagina & uterus: bladder normal to palpation Skin: General skin exam: erythema (to the bilateral lower extremities, worse on left than right), abrasion (left anterior knee), laceration and wounds noted (right knee, laceration with steristrip/suture.) Trauma: abrasion (left anterior knee) and laceration Wounds: wounds noted (right knee, laceration with steristrip/suture.) Neuro: Cranial nerves: Yes Equal, round and reactive pupils present Motor exam (neuro): Abnormal motor strength present (generalized weakness) Extrem: General: pedal edema bilaterally pitting and 1+ Psych: Mental Status: mental status grossly normal Affect: normal affect Objective Data Vital Signs Vital Signs: Vital Signs - 24 hr 08/28/25 14:00 08/28/25 15:35 08/28/25 15:45 Temperature 97.5 F L Pulse Rate 83 82 84 Respiratory Rate 14 20 20 Blood Pressure 110/53 L Pulse Oximetry 98 Oxygen Delivery Oxygen Flow Rate 08/28/25 19:47 08/28/25 19:53 08/28/25 20:00 Temperature 97.7 F Pulse Rate 86 85 97 Respiratory Rate 19 19 20 Blood Pressure 107/56 L Pulse Oximetry 97 Oxygen Delivery Oxygen Flow Rate 08/28/25 20:00 08/28/25 22:00 08/29/25 04:50 Temperature 97.6 F Pulse Rate 81 Respiratory Rate 20 Blood Pressure 131/65 Pulse Oximetry 97 96 96 Oxygen Delivery Nasal Cannula Oxygen Flow Rate 1 08/29/25 08:01 08/29/25 08:01 08/29/25 08:45 Temperature Pulse Rate 88 88 Respiratory Rate 20 20 Blood Pressure Pulse Oximetry 93 94 Oxygen Delivery Nasal Cannula Nasal Cannula Oxygen Flow Rate 1 1 08/29/25 11:39 Temperature Pulse Rate 76 Respiratory Rate 18 Blood Pressure Pulse Oximetry Oxygen Delivery Oxygen Flow Rate Intake/Output Intake/Output: Intake & Output 08/26/25 08/27/25 08/28/25 08/29/25 23:59 23:59 23:59 23:59 Intake Total 950 1920 780 358 Output Total 1450 1800 1300 300 Balance -500 120 -520 58 Meds/Results Medications: Active Medications Generic Name Dose Route Start Last Admin Trade Name Freq PRN Reason Stop Dose Admin Acetaminophen 650 mg 08/17/25 10:40 08/27/25 18:17 Acetaminophen 325 Mg Tablet PO 650 mg Q4H PRN Administration Mild Pain (1-3) or Fever Hydrocodone Bitart/Acetaminophen 1 tab 08/27/25 20:07 Hydrocodone/Acetaminophen (*Crx) 5-325 Mg Tablet PO Q4H PRN Pain Rated 4-6 Al Hydrox/Mg Hydrox/Simethicone 30 ml 08/17/25 10:40 Mag Hydrox/Al Hydrox/Simeth 30 Ml Udc PO QID PRN Dyspepsia Albuterol 2 puff 08/17/25 14:38 Albuterol Sulfate (*Sp) Aerosol 1 Puff INHALATION Q6HRT PRN Shortness Of Breath Or Wheezing Albuterol/Ipratropium 3 ml 08/25/25 12:00 08/29/25 11:36 Ipratropium 0.5 Mg/Albuterol Sulfate 2.5 Mg (Base) Ampul.Neb 3 Ml INHALATION 3 ml [id number] JESSIE Administration Alprazolam 0.5 mg 08/27/25 17:37 08/28/25 17:02 Alprazolam (*Crx) 0.5 Mg Tablet PO 08/30/25 00:00 0.5 mg Q8HR PRN Administration Anxiety Aspirin 81 mg 08/18/25 09:00 08/29/25 08:48 Aspirin 81 Mg Enteric Tablet PO 81 mg DAILY JESSIE Administration Atorvastatin Calcium 40 mg 08/17/25 21:00 08/28/25 21:22 Atorvastatin 40 Mg Tablet PO 40 mg HS JESSIE Administration Budesonide 0.5 mg 08/23/25 10:00 08/29/25 07:56 Budesonide Respule Neb 0.5 Mg/2 Ml Amp INHALATION 0.5 mg Q12HRT JESSIE Administration Buspirone HCl 10 mg 08/21/25 21:00 08/29/25 08:47 Buspirone Hcl 10 Mg Tablet PO 10 mg Q12HR JESSIE Administration Docusate Sodium 100 mg 08/20/25 11:23 Docusate Sodium 100 Mg Capsule PO Q12H PRN Constipation Enoxaparin Sodium 40 mg 08/17/25 11:00 08/29/25 08:48 Enoxaparin 40 Mg/0.4 Ml Syringe SUB-Q 40 mg DAILY JESSIE Administration Escitalopram Oxalate 10 mg 08/18/25 09:00 08/29/25 08:47 Escitalopram Oxalate 10 Mg Tablet PO 10 mg DAILY JESSIE Administration Ferrous Sulfate 325 mg 08/17/25 17:00 08/29/25 08:47 Ferrous Sulfate 325 Mg Tablet BY MOUTH 325 mg TID JESSIE Administration Furosemide 40 mg 08/17/25 11:00 08/29/25 08:48 Furosemide Inj 40 Mg/4 Ml Vial IV PUSH 40 mg BID JESSIE Administration Gabapentin 300 mg 08/17/25 22:00 08/29/25 05:57 Gabapentin 300 Mg Capsule PO 300 mg Q8HR JESSIE Administration Guaifenesin 1,200 mg 08/21/25 21:00 08/29/25 08:47 Guaifenesin 12 Hr 600 Mg Tabcr PO 1,200 mg Q12HR JESSIE Administration Levetiracetam 250 mg 08/17/25 21:00 08/29/25 08:47 Levetiracetam 250 Mg Tablet PO 250 mg Q12H JESSIE Administration Loratadine 5 mg 08/17/25 18:00 08/28/25 21:22 Loratadine 5 Mg Tablet PO Not Given QPM [facility] Magnesium Hydroxide 30 ml 08/17/25 10:40 Magnesium Hydroxide Susp 30 Ml Udc PO DAILY PRN Constipation Melatonin 5 mg 08/17/25 21:00 08/28/25 21:23 Melatonin 5 Mg Tablet PO 5 mg HS JESSIE Administration Multivitamins Therapeutic 1 tablet 08/18/25 09:00 08/29/25 08:48 Multivitamins Therapeutic Tab (*Bkc) PO 1 tablet DAILY JESSIE Administration Ondansetron HCl 4 mg 08/17/25 10:40 08/22/25 21:05 Ondansetron Inj 4 Mg/2 Ml Vial IV PUSH 4 mg Q6H PRN Administration Nausea And Vomiting Pantoprazole Sodium 40 mg 08/18/25 09:00 08/29/25 08:47 Pantoprazole 40 Mg Tablet PO 40 mg QAM JESSIE Administration Potassium Chloride 20 meq 08/17/25 17:00 08/29/25 08:48 Potassium Chloride 20 Meq Er Tablet PO 20 meq BID JESSIE Administration Roflumilast 500 mcg 08/24/25 09:00 08/29/25 08:47 Roflumilast 500 Mcg Tablet PO 500 mcg DAILY JESSIE Administration Ropinirole HCl 1 mg 08/17/25 17:00 08/29/25 08:47 Ropinirole Hcl 1 Mg Tablet PO 1 mg TID JESSIE Administration Spironolactone 25 mg 08/18/25 09:00 08/29/25 08:47 Spironolactone 25 Mg Tablet PO 25 mg DAILY JESSIE Administration Radiology Results: ITS Impressions Knee X-Ray 08/23/25 13:40 Impression: No acute fracture or malalignment. Chest X-Ray 08/25/25 08:52 Impression: No acute cardiopulmonary abnormality. Labs Labs: Laboratory Results - last 24 hr 08/29/25 04:45 WBC 11.0 H RBC 3.92 L Hgb 11.4 L Hct 37.7 MCV 96.2 MCH 29.1 MCHC 30.2 L RDW 15.9 H Plt Count 282 MPV 10.1 Immature Gran % (Auto) 4.2 H Neut % (Auto) 71.2 Lymph % (Auto) 9.9 L [place] % (Auto) 9.9 H Eos % (Auto) 4.1 Baso % (Auto) 0.7 Lymph # (Auto) 1.08 [place] # (Auto) 1.1 H Eos # (Auto) 0.5 H Baso # (Auto) 0.1 Abs Immat Gran (auto) 0.46 H Absolute Neuts (auto) 7.8 H Absolute Nucleated RBC 0.000 Nucleated RBC % 0.0 Sodium 136 L Potassium 4.2 Chloride 100 Carbon Dioxide 35 H Anion Gap 1 L BUN 19 H Creatinine 1.07 H Estim Creat Clear Calc 37 Estimated GFR 50 L Glucose 79 Calcium 8.6 Magnesium 2.0 Total Bilirubin 0.6 AST 48 H ALT 48 H Alkaline Phosphatase 64 Total Protein 6.2 L Albumin 3.4 L Quality VTE Prophylaxis VTE prophylaxis: pharmacologic ordered Hospitalist MIPS Advance Care Plan I have confirmed that the patient's Advanced Care Plan is present, code status is documented, or surrogate decision maker is listed in patient medical record.: Yes Medication Reconciliation I have utilized all available resources to obtain, update and review the patients current medications (includes all prescriptions, OTC, herbals, cannabis, and nutritional supplements).: Yes
[2025-08-29] MEDS: FUROSEMIDE 40 MG TABLET PO (17:03)
[2025-08-29] MEDS: LORATADINE 5 MG TABLET PO (17:03)
[2025-08-29] MEDS: ALPRAZolam (*CRX) 0.5 MG TABLET PO (18:54)
[2025-08-29] MEDS: ATORVASTATIN 40 MG TABLET PO (21:42)
[2025-08-29] MEDS: MELATONIN 5 MG TABLET PO (21:42)
[2025-08-30] VITALS (7 sets, daily range): BP systolic 109; BP diastolic 53; PULSE 63–93; RESP 18–20; TEMP 36; O2SAT 91–97
--- NOTE | 2025-08-30 04:10 | PM.PNORT ---
Progress Note: A&P Assessment and Plan (1) Laceration: Status: Acute Assessment and Plan: Right knee laceration - steri strips still in place and very dry, I applied wet to dry dressing this evening to allow the steri strips to be removed with less bleading. Left Knee laceration - much improved after incision and drainage of hematoma. (no signs of infection) Follow up with my office 1 week after her discharge from hospital. Subjective Subjective Date/Time Seen: 08/30/25 04:10 Principal diagnosis: bilateral knee lacerations Interval history: Less pain in Left Knee after incision and drainage Exam Narrative: Right Knee with steri-strips, no sign of infection Left Knee, bandage removed, no signs of infection, no drainage. Objective Data Vital Signs Vital Signs: Vital Signs - 24 hr 08/29/25 04:50 08/29/25 08:01 08/29/25 08:01 Temperature 36.4 C Pulse Rate 81 88 88 Respiratory Rate 20 20 20 Blood Pressure 131/65 Pulse Oximetry 96 93 Oxygen Delivery Nasal Cannula Oxygen Flow Rate 1 08/29/25 08:45 08/29/25 11:39 08/29/25 14:00 Temperature 36.8 C Pulse Rate 76 94 Respiratory Rate 18 12 Blood Pressure 118/51 L Pulse Oximetry 94 96 Oxygen Delivery Nasal Cannula Oxygen Flow Rate 1 08/29/25 16:50 08/29/25 17:00 08/29/25 20:00 Temperature Pulse Rate 79 82 Respiratory Rate 18 18 Blood Pressure Pulse Oximetry 96 Oxygen Delivery Nasal Cannula Oxygen Flow Rate 1 08/29/25 20:13 08/29/25 20:20 08/29/25 20:20 Temperature 36.6 C Pulse Rate 94 96 Respiratory Rate 18 20 Blood Pressure 119/63 Pulse Oximetry 97 96 Oxygen Delivery Nasal Cannula Oxygen Flow Rate 1 08/29/25 20:32 08/30/25 02:28 Temperature Pulse Rate 108 H 63 Respiratory Rate 20 Blood Pressure Pulse Oximetry 95 Oxygen Delivery Oxygen Flow Rate Intake/Output Intake/Output: Intake & Output 08/27/25 08/28/25 08/29/25 08/30/25 23:59 23:59 23:59 23:59 Intake Total 1763 091 6436 Output Total 1800 1300 300 Balance 120 -520 898 Meds/Results Medications: Active Medications Generic Name Dose Route Start Last Admin Trade Name Freq PRN Reason Stop Dose Admin Acetaminophen 650 mg 08/17/25 10:40 08/27/25 18:17 Acetaminophen 325 Mg Tablet PO 650 mg Q4H PRN Administration Mild Pain (1-3) or Fever Hydrocodone Bitart/Acetaminophen 1 tab 08/27/25 20:07 Hydrocodone/Acetaminophen (*Crx) 5-325 Mg Tablet PO Q4H PRN Pain Rated 4-6 Al Hydrox/Mg Hydrox/Simethicone 30 ml 08/17/25 10:40 Mag Hydrox/Al Hydrox/Simeth 30 Ml Udc PO QID PRN Dyspepsia Albuterol 2 puff 08/17/25 14:38 Albuterol Sulfate (*Sp) Aerosol 1 Puff INHALATION Q6HRT PRN Shortness Of Breath Or Wheezing Albuterol/Ipratropium 3 ml 08/25/25 12:00 08/29/25 20:20 Ipratropium 0.5 Mg/Albuterol Sulfate 2.5 Mg (Base) Ampul.Neb 3 Ml INHALATION 3 ml [id number] JESSIE Administration Aspirin 81 mg 08/18/25 09:00 08/29/25 08:48 Aspirin 81 Mg Enteric Tablet PO 81 mg DAILY JESSIE Administration Atorvastatin Calcium 40 mg 08/17/25 21:00 08/29/25 21:42 Atorvastatin 40 Mg Tablet PO 40 mg HS JESSIE Administration Budesonide 0.5 mg 08/23/25 10:00 08/29/25 20:20 Budesonide Respule Neb 0.5 Mg/2 Ml Amp INHALATION 0.5 mg Q12HRT JESSIE Administration Buspirone HCl 10 mg 08/21/25 21:00 08/29/25 21:42 Buspirone Hcl 10 Mg Tablet PO 10 mg Q12HR JESSIE Administration Docusate Sodium 100 mg 08/20/25 11:23 Docusate Sodium 100 Mg Capsule PO Q12H PRN Constipation Enoxaparin Sodium 40 mg 08/17/25 11:00 08/29/25 08:48 Enoxaparin 40 Mg/0.4 Ml Syringe SUB-Q 40 mg DAILY JESSIE Administration Escitalopram Oxalate 10 mg 08/18/25 09:00 08/29/25 08:47 Escitalopram Oxalate 10 Mg Tablet PO 10 mg DAILY JESSIE Administration Ferrous Sulfate 325 mg 08/17/25 17:00 08/29/25 17:03 Ferrous Sulfate 325 Mg Tablet BY MOUTH 325 mg TID JESSIE Administration Furosemide 40 mg 08/29/25 17:00 08/29/25 17:03 Furosemide 40 Mg Tablet PO 40 mg BID JESSIE Administration Gabapentin 300 mg 08/17/25 22:00 08/29/25 21:42 Gabapentin 300 Mg Capsule PO 300 mg Q8HR JESSIE Administration Guaifenesin 1,200 mg 08/21/25 21:00 08/29/25 21:42 Guaifenesin 12 Hr 600 Mg Tabcr PO 1,200 mg Q12HR JESSIE Administration Levetiracetam 250 mg 08/17/25 21:00 08/29/25 21:41 Levetiracetam 250 Mg Tablet PO 250 mg Q12H JESSIE Administration Loratadine 5 mg 08/17/25 18:00 08/29/25 17:03 Loratadine 5 Mg Tablet PO 5 mg QPM JESSIE Administration Magnesium Hydroxide 30 ml 08/17/25 10:40 Magnesium Hydroxide Susp 30 Ml Udc PO DAILY PRN Constipation Melatonin 5 mg 08/17/25 21:00 08/29/25 21:42 Melatonin 5 Mg Tablet PO 5 mg HS JESSIE Administration Multivitamins Therapeutic 1 tablet 08/18/25 09:00 08/29/25 08:48 Multivitamins Therapeutic Tab (*Bkc) PO 1 tablet DAILY JESSIE Administration Ondansetron HCl 4 mg 08/17/25 10:40 08/22/25 21:05 Ondansetron Inj 4 Mg/2 Ml Vial IV PUSH 4 mg Q6H PRN Administration Nausea And Vomiting Pantoprazole Sodium 40 mg 08/18/25 09:00 08/29/25 08:47 Pantoprazole 40 Mg Tablet PO 40 mg QAM JESSIE Administration Potassium Chloride 20 meq 08/17/25 17:00 08/29/25 17:03 Potassium Chloride 20 Meq Er Tablet PO 20 meq BID JESSIE Administration Roflumilast 500 mcg 08/24/25 09:00 08/29/25 08:47 Roflumilast 500 Mcg Tablet PO 500 mcg DAILY JESSIE Administration Ropinirole HCl 1 mg 08/17/25 17:00 08/29/25 17:03 Ropinirole Hcl 1 Mg Tablet PO 1 mg TID JESSIE Administration Spironolactone 25 mg 08/18/25 09:00 08/29/25 08:47 Spironolactone 25 Mg Tablet PO 25 mg DAILY JESSIE Administration Radiology Results: ITS Impressions Knee X-Ray 08/23/25 13:40 Impression: No acute fracture or malalignment. Chest X-Ray 08/25/25 08:52 Impression: No acute cardiopulmonary abnormality. Labs Labs: Laboratory Results - last 24 hr 08/29/25 04:45 WBC 11.0 H RBC 3.92 L Hgb 11.4 L Hct 37.7 MCV 96.2 MCH 29.1 MCHC 30.2 L RDW 15.9 H Plt Count 282 MPV 10.1 Immature Gran % (Auto) 4.2 H Neut % (Auto) 71.2 Lymph % (Auto) 9.9 L [place] % (Auto) 9.9 H Eos % (Auto) 4.1 Baso % (Auto) 0.7 Lymph # (Auto) 1.08 [place] # (Auto) 1.1 H Eos # (Auto) 0.5 H Baso # (Auto) 0.1 Abs Immat Gran (auto) 0.46 H Absolute Neuts (auto) 7.8 H Absolute Nucleated RBC 0.000 Nucleated RBC % 0.0 Sodium 136 L Potassium 4.2 Chloride 100 Carbon Dioxide 35 H Anion Gap 1 L BUN 19 H Creatinine 1.07 H Estim Creat Clear Calc 37 Estimated GFR 50 L Glucose 79 Calcium 8.6 Magnesium 2.0 Total Bilirubin 0.6 AST 48 H ALT 48 H Alkaline Phosphatase 64 Total Protein 6.2 L Albumin 3.4 L
[2025-08-30] MEDS: GABAPENTIN 300 MG CAPSULE PO ×2 (05:29→13:36)
[2025-08-30] MEDS: ALPRAZolam (*CRX) 0.5 MG TABLET PO (05:36)
--- NOTE | 2025-08-30 07:20 | P.DS_ITS ---
DS: Admitting Diagnosis Discharge Date 08/30/2025 Admitting Diagnosis Fall DS: Discharge Diagnosis Discharge Diagnosis (1) Acute hypercapnic respiratory failure: Code(s): J96.02 - Acute respiratory failure with hypercapnia Status: Acute Assessment and Plan: Please refer to hospital course for brief summary Has history of gold grade 4, history of alpha-1 antitrypsin genotype mm * Appreciate pulmonology consultation and recommendations * Continue with supplemental O2 and BiPAP settings as recommended by pulmonology * Now on 2 liters oxygen which is her baseline * noted dyspnea has mostly resolved * Continue Prednisone, bronchodilators and buspar * Discussed with Dr Nava from Pulmonology who recommended overnight oximetry * Continue nighttime NIV with oxygen (2) Acute exacerbation of chronic obstructive pulmonary disease: Code(s): J44.1 - Chronic obstructive pulmonary disease with (acute) exacerbation Status: Acute Assessment and Plan: Recently hospitalized and discharged, now having worsening symptoms. [place] to be due to poor compliance with noninvasive ventilation in overuse of supplemental O2 * As above, appreciate pulmonology recommendations * Continue with supplemental O2 per protocol * S/p IV steroid, Prednisone * Continue with DuoNebs, expectorants, flutter valve, long acting bronchodilators * Pulmonology following (3) Tachycardia: Code(s): R00.0 - Tachycardia, unspecified Status: Acute Assessment and Plan: resolved (4) Bilateral pneumonia: Qualifiers: Lung location: lower lobe of lung Pneumonia type: due to unspecified organism Qualified Code(s): J18.9 - Pneumonia, unspecified organism Code(s): J18.9 - Pneumonia, unspecified organism Status: Acute Assessment and Plan: Repeat CXR 08/17/2025 shows persistent airspace disease * Completed ceftriaxone and azithromycin * Continue supportive care measures as above * Urine antigens negative for strep pneumonia and Legionella (5) Diastolic CHF: Qualifiers: Heart failure chronicity: unspecified Qualified Code(s): I50.30 - Unspecified diastolic (congestive) heart failure Code(s): I50.30 - Unspecified diastolic (congestive) heart failure Status: Chronic Assessment and Plan: echocardiogram shows 40-45% left ventricular diastolic dysfunction * Appreciate cardiology consultation and recommendation * Continue Lasix 40 mg IV b.i.d., plan to wean as tolerated once she demonstrates improvement * When she is off IV diuresis, she will need to be transitioned to p.o. bumetanide 1 mg b.i.d. her Cardiology recommendations as oral Lasix had not been helping improve her symptoms. Will continue spironolactone 25 mg daily * Fluid restriction 1.5 L per day. Weigh patient daily * Continue compression stockings and leg elevation * Needs outpatient follow-up with Dr. Meyers 2 weeks following discharge (6) Laceration: Status: Acute Assessment and Plan: Developed right knee laceration following fall * Received wound care in ED. Wound was irrigated. 6 sutures placed. * suture is resorbable and strips will be removed in 1 days * wound care consulted (7) CKD (chronic kidney disease) stage 3, GFR 30-59 ml/min: Qualifiers: Chronic kidney disease stage 3 subtype: unspecified whether 3a or 3b Qualified Code(s): N18.30 - Chronic kidney disease, stage 3 unspecified Code(s): N18.30 - Chronic kidney disease, stage 3 unspecified Status: Acute Assessment and Plan: Chronic * Slight elevation in creatinine today to 1.27, likely due to IV diuresis * Monitor BMP closely, hold Lasix if any further increase (8) Iron deficiency anemia: Code(s): D50.9 - Iron deficiency anemia, unspecified Status: Acute Assessment and Plan: H&H remaining stable isat 13, and Hb 11.3 S/p 1000/1000 Venofer, Stop PO Iron monitor (9) Hypertension: Qualifiers: Hypertension type: primary hypertension Qualified Code(s): I10 - Essential (primary) hypertension Code(s): I10 - Essential (primary) hypertension Status: Chronic Assessment and Plan: Blood pressure stable, 136/67 today * Continue furosemide and spironolactone * Monitor BP trends (10) Weakness: Code(s): R53.1 - Weakness Status: Acute Assessment and Plan: Progressive weakening with more frequent falls * Continue PT/OT during admission Plan Left knee effusion : Infection vs hematoma s/p I and Drainage, wound culture pending(anaerobic culture pending, aerobic culture no growth) Blood culture Completed Rocephin and Vanc ID consulted monitor As per Ortho Right knee laceration - steri strips still in place and very dry, I applied wet to dry dressing this evening to allow the steri strips to be removed with less bleading. Left Knee laceration - much improved after incision and drainage of hematoma. (no signs of infection) Follow up with my office 1 week after her discharge from hospital. DVT prophylaxis on Sq Lovenox PT/OT DS: Summary Hospital Course Hospital Course: 75 y/o female patient with medical history of CHF - EF of 40-45% left diastolic dysfunction, GERD, RLS, neuropathy, iron def anemia, hyperlipidemia, CVA, COPD on O2 @ 2 l, [place] Lung Cancer, HTN, seizures, that presented to the ER this am with reports of falling out of her wheel chair. Patient is wheelchair-bound at assisted living, and reports she slipped out of the chair onto her knees. patient had no LOC, no other injury, no injury to head. Patient had skin tear to the right knee on arrival. patient also reports the last 2 days has had increasing shortness of breath, to the point where she has had to sleep in her wheelchair. Patient was recently admitted to this hospital 07/30/25 - 08/04/25 for Acute COPD, chronic hypercapnic and hypoxic resp failure, Right middle lobe PNE, CHF with elevated BNP. Patient was instructed at that time to continue outpatient ATB, lasix, Oxygen at 2 liters with BiPap at night and while napping - rate of 14, tidal volume 500, EPAP minimum 5 max 15, pressure support minimum 10 max 25 with 3 liter bleed. patient admits she has not been compliant with her BiPap. She does see Dr Quiroz for pulmonology. She denies cough, fever, chills, headache, chest pain or distress. Patient states she had to sleep in her wheel chair the lasts two days due to shortness of breath. During the hospitalization patient elected to be DNR. Patient was treated following addition during the hospitalization: 1)Regarding right knee laceration patient underwent I and D with Ortho on 08/26/25 As per Ortho Right knee laceration - steri strips still in place and very dry, I applied wet to dry dressing this evening to allow the steri strips to be removed with less bleading. Left Knee laceration - much improved after incision and drainage of hematoma. (no signs of infection) Follow up with my office 1 week after her discharge from hospital. As per ID, recommend stopping antibiotic and monitor and doubt it is an infection. 2) Regarding COPD: Patient follows up with Dr. Nava and advised to follow will recommendation will discharge DuoNebs q.i.d. Budesonide 500 mcg nebulized b.i.d. Daliresp 500 mcg q.day Guaifenesin 1200 mg p.o. b.i.d. Loratadine 5 mg p.o. q.p.m. Diuretics per hospitalist team. Currently the patient is on 40 IV b.i.d.. Her weight is 68 kg. Oxygen pursed on swing bed protocol. Currently she is on 1 L at rest. When she naps or sleeps: Noninvasive ventilation with AVAPS AE mode through via med: rate 14, tidal volume 500, minimum EPAP 5, maximum EPAP 15, minimum pressure support 10, maximum pressure support 20 and 5 L bleed in. if [place] swing bed can perform an overnight oximetry on these settings to document adequate oxygenation this is recommended. Follow-up in the Pulmonary Clinic 4 weeks. Of note:Advair was discontinued due to systemic steroids in the hospital. Advised to follow-up with Dr. Nava for further recommendation. Also patient insurance wont cover Incruse from September 2025 and will benefit from Dupixent as add-on therapy. On the day of discharge, the patient was seen and examined. Vital signs were st able. Physical exam were stable and labs were reviewed at length. Discharge instructions, medications, and follow-up appointments were discussed with the patient at length and all day questions were answered. ER warnings were given. Status at Discharge Cognitive/behavioral status at discharge: Stable Time Spent with Patient Time attestation: Total time spent providing and/or coordinating discharge services: 45 minute Exam Narrative: GENERAL: Comfortable, no acute distress HENMT: moist mucous membranes. Dentures in place. EYES: EOM intact b/l NECK: no lymphadenopathy RESPIRATORY: Scattered wheezing, labored breathing, supplemental oxygen 2L CARDIO: irregular rhythm, irregular rate GI: Abdomen distended SKIN/EXTREMITIES: no rashes, no edema, no redness or tenderness Const: General: comfortable HENMT: Face/Nose/Sinus: Normal nares present Mouth: Yes moist mucous membranes Eyes: General: appearance normal, both eyes and all related structures Pupils: Equal, round and reactive pupils present EOM: EOMs intact bilaterally Neck: Neck: supple Thyroid: thyroid normal Resp: Effort & Inspection: normal respiratory effort (on BiPap at this time. ) Auscultation: rhonchi left upper and right upper and diminished lung sounds bilateral in the lower lung cristina Cardio: Jugular venous distension: no JVD Rate: regular rate Rhythm: regular rhythm Heart sounds: S1 normal heart sound present and S2 normal heart sound present GI: Auscultation: normal bowel sounds : General: Yes bladder normal to palpation Bimanual exam- vagina & uterus: bladder normal to palpation Skin: General skin exam: erythema (to the bilateral lower extremities, worse on left than right), abrasion (left anterior knee), laceration and wounds noted (right knee, laceration with steristrip/suture.) Trauma: abrasion (left anterior knee) and laceration Wounds: wounds noted (right knee, laceration with steristrip/suture.) Neuro: Cranial nerves: Yes Equal, round and reactive pupils present Motor exam (neuro): Abnormal motor strength present (generalized weakness) Extrem: General: pedal edema bilaterally pitting and 1+ Psych: Mental Status: mental status grossly normal Affect: normal affect DS: Data Data Completed and Pending Labs on day of discharge: Preliminary micro results at discharge 08/24/25 15:41 Blood Culture - Preliminary Blood 08/24/25 15:51 Blood Culture - Preliminary Blood Discharge Plan Discharge Attending physician on discharge: Solomon Wilkins Consulting providers: Stefanie Trejo; Connor Zacarias Felix F.; Leah Meyers; Eliseo Guzman Discharging Clinician: Solomon Wilkins Anticipated Discharge Date/Time: 08/30/25 07:34 Patient Disposition: Hospital Swing Bed Activity: as tolerated Diet: heart healthy Discharge Instructions: Follow-up with Dr. Nava, orthopedics and PCP within a week upon discharge. Patient Instructions: Antibiotic Form, Heart Failure (GEN) Patient Language: Estonian Stand Alone Forms: General Discharge Information Follow-up/Referrals: Oli Meyers DO [Physician, Cardiology] Salima Donahue MD [Primary Care Provider, Internal Medicine] Rik Alejandro MD [Physician, Orthopedics] Alex Nava MD [Physician, Pulmonology] Discharge Medications: New ipratropium-albuterol 0.5 mg-3 mg(2.5 mg base)/3 mL Solution For Nebulization 3 ml inhalation [id number] Qty: 3 0RF buspirone 10 mg Tablet 10 mg PO Q12HR Qty: 30 0RF docusate sodium 100 mg Capsule 100 mg PO Q12H PRN (Reason: Constipation) Qty: 30 0RF budesonide [Pulmicort] 0.5 mg/2 mL Suspension For Nebulization 0.5 mg inhalation Q12HRT Qty: 30 0RF roflumilast [Daliresp] 500 mcg Tablet 500 mcg PO DAILY Qty: 30 0RF guaifenesin [Mucus Relief ER] 600 mg Tablet Extended Release 12hr 1,200 mg PO Q12HR Qty: 30 0RF Continued multivitamin with folic acid [Daily-Annie (with folic acid)] 400 mcg tablet 1 tablet PO DAILY ropinirole 2 mg tablet 1 mg PO TID escitalopram oxalate 10 mg tablet 10 mg PO DAILY levocetirizine 5 mg tablet 5 mg PO QPM ferrous sulfate 325 mg (65 mg iron) tablet 325 mg PO TID potassium chloride 20 mEq tablet extended release 20 meq PO BID melatonin 5 mg capsule 5 mg PO HS levetiracetam [Keppra] 250 mg tablet 250 mg PO Q12H atorvastatin 40 mg tablet 40 mg PO HS aspirin [Adult Aspirin Regimen] 81 mg tablet,delayed release (DR/EC) 81 mg PO DAILY acetaminophen 500 mg capsule 500 mg PO Q6H PRN (Reason: Pain (Scale Score 1-3)) (DME) comp.stocking,knee,long,medium Misc See Rx Instructions .Route Qty: 12 0RF Rx Instructions: As directed furosemide [Lasix] 40 mg tablet 40 mg PO BID Qty: 60 0RF alprazolam 0.5 mg tablet 0.5 mg PO Q8-12H PRN (Reason: Anxiety) gabapentin 300 mg capsule 300 mg PO TID spironolactone [Aldactone] 25 mg tablet 25 mg PO DAILY ergocalciferol (vitamin D2) [Vitamin D2] 1,250 mcg (50,000 unit) capsule 1,250 mcg PO WEEKLY Patient Comments: Takes on Sundays (DME) mucus clearing device Device See Rx Instructions .Route Qty: 10 0RF Rx Instructions: As directed pantoprazole 40 mg Tablet,Delayed Release (Dr/Ec) 40 mg PO QAM Qty: 30 0RF albuterol sulfate 90 mcg/actuation HFA aerosol inhaler 2 puff inhalation Q6H PRN (Reason: shortness of breath or wheezing) Qty: 8.5 3RF Rx Instructions: Use with spacer. Held fluticasone propion-salmeterol [Advair HFA] 230-21 mcg/actuation HFA aerosol inhaler See Rx Instructions .ROUTE .COMPLEX Qty: 12 6RF Hold Instructions: Resume on 09/06/25. Advair was discontinued due to systemic steroids in the hospital. Advised to follow-up with Dr. Nava for further recommendation. Also patient insurance wont cover Incruse and will benefit from Dupixent as add-on therapy Dose Instruction: Inhale 2 puffs by mouth twice daily. Rx Instructions: Inhale 2 puffs by mouth twice daily. Discontinued guaifenesin [Mucus Relief] 400 mg tablet 400 mg PO DAILY Incruse Ellipta 62.5 mcg/actuation blister with device See Rx Instructions .ROUTE .COMPLEX Qty: 30 5RF Dose Instruction: Inhale 1 puff by mouth at the same time daily. Rx Instructions: Inhale 1 puff by mouth at the same time daily. Date of admission: 08/17/25 10:40 Primary Care Provider: Salima Donahue Admitting Provider: Harry Eastman Oca Attending physician on admission: Harry Eastman Oca Condition: Stable
[2025-08-30] MEDS: BUDESONIDE RESPULE NEB 0.5 MG/2 ML AMP INHALATION (09:04)
[2025-08-30] MEDS: IPRATROPIUM 0.5 MG/ALBUTEROL SULFATE 2.5 MG (BASE) AMPUL.NEB 3 ML INHALATION ×2 (09:05→11:56)
[2025-08-30] MEDS: MULTIVITAMINS THERAPEUTIC TAB (*BKC) 1 TABLET PO (09:51)
[2025-08-30] MEDS: ASPIRIN 81 MG ENTERIC TABLET PO (09:51)
[2025-08-30] MEDS: ESCITALOPRAM OXALATE 10 MG TABLET PO (09:52)
[2025-08-30] MEDS: PANTOPRAZOLE 40 MG TABLET PO (09:52)
[2025-08-30] MEDS: guaiFENesin 12 HR 600 MG TABCR 1200 MG PO (09:52)
[2025-08-30] MEDS: FERROUS SULFATE 325 MG TABLET BY MOUTH ×2 (09:52→13:36)
[2025-08-30] MEDS: POTASSIUM CHLORIDE 20 MEQ ER TABLET PO (09:52)
[2025-08-30] MEDS: ENOXAPARIN 40 MG/0.4 ML SYRINGE SUB-Q (09:52)
[2025-08-30] MEDS: SPIRONOLACTONE 25 MG TABLET PO (09:52)
[2025-08-30] MEDS: ROFLUMILAST 500 MCG TABLET PO (09:52)
[2025-08-30] MEDS: FUROSEMIDE 40 MG TABLET PO (09:52)
== END 2025-08-30 14:12 | disposition swing bed (61) | DRG 189 ==
LOC: ANHED 07:57 → ANHIMU 10:03 → ANH2MED 08-21 16:13
PROVIDERS: Internal Medicine; Internal Medicine Pulmonary Disease; Nurse Practitioner Family; Orthopaedic Surgery; Admitting Provider Student in an Organized Health Care Education/Training Program; Emergency Provider Emergency Medicine; PCP Internal Medicine; Visit Provider General Practice
DX: J96.21 Acute and chronic respiratory failure with hypoxia (principal); J18.9 Pneumonia, unspecified organism; J44.1 Chronic obstructive pulmonary disease with (acute) exacerbation; J44.0 Chronic obstructive pulmonary disease with (acute) lower respiratory infection; I69.351 Hemiplegia and hemiparesis following cerebral infarction affecting right dominant side; I13.0 Hypertensive heart and chronic kidney disease with heart failure and stage 1 through stage 4 chronic kidney disease, or unspecified chronic kidney disease; I50.32 Chronic diastolic (congestive) heart failure; J96.22 Acute and chronic respiratory failure with hypercapnia; W05.0XXA Fall from non-moving wheelchair, initial encounter; S81.011A Laceration without foreign body, right knee, initial encounter; S80.212A Abrasion, left knee, initial encounter; F41.8 Other specified anxiety disorders; E78.5 Hyperlipidemia, unspecified; G25.81 Restless legs syndrome; D50.9 Iron deficiency anemia, unspecified; G40.909 Epilepsy, unspecified, not intractable, without status epilepticus; K21.9 Gastro-esophageal reflux disease without esophagitis; N18.30 Chronic kidney disease, stage 3 unspecified; Z66 Do not resuscitate; I87.2 Venous insufficiency (chronic) (peripheral); Z23 Encounter for immunization; K43.9 Ventral hernia without obstruction or gangrene; F40.240 Claustrophobia; Z91.148 Patient's other noncompliance with medication regimen for other reason; Z91.81 History of falling; K59.00 Constipation, unspecified; Z99.3 Dependence on wheelchair; Z99.89 Dependence on other enabling machines and devices; Z79.51 Long term (current) use of inhaled steroids; Z79.2 Long term (current) use of antibiotics; Z79.82 Long term (current) use of aspirin; Z99.81 Dependence on supplemental oxygen; Z87.891 Personal history of nicotine dependence; Z86.711 Personal history of pulmonary embolism; Z85.118 Personal history of other malignant neoplasm of bronchus and lung; Z95.5 Presence of coronary angioplasty implant and graft; Z92.3 Personal history of irradiation
CPT/HCPCS: 12002; 36415; 36600; 71045; 71046; 73562; 80053; 80202; 82375; 82565; 82728; 82805; 83050; 83540; 83550; 83605; 83735; 83880; 84484; 85018; 85025; 85027; 86140; 87040; 87070; 87075; 90471; 90715; 93005; 94002; 94640; 94667; 94762; 96365; 97110; 97116; 97161; 97165; 97530; 97535; 99285; A9270; G0378; J0456; J0616; J0696; J1650; J1756; J1938; J2405; J2919; J3373; J7050

== ENCOUNTER 2025-08-30 15:00 | Inpatient (IN) | payer MEDICARE, MEDICAID, SELFPAY ==
[2025-08-30 15:21] VITALS: BMI 23.8
[2025-08-30 15:24] VITALS: BP 112/69; PULSE 94; RESP 20; TEMP 36.6; O2SAT 96
[2025-08-30 15:30] VITALS: O2SAT 96
--- NOTE | 2025-08-30 16:23 | WNDPHOTO ---
PHOTO ONLY - See Nursing Notes and/ or assessments for documentation.
--- NOTE | 2025-08-30 16:24 | WNDPHOTO ---
PHOTO ONLY - See Nursing Notes and/ or assessments for documentation.
[2025-08-30 16:28] VITALS: O2SAT 97
--- NOTE | 2025-08-30 16:37 | ADMGEN ---
1500 This patient, Teresa Levi, was admitted to 2nd Floor Room 205-1. for rehab after falling out of a chair from [facility]. has dry open areas to yamel knees r knee dry steri strips starting to fall off and encouraged her not to pick at them. they will fall off. l open and traffic attendant dark scabs reddened around scabs. nurse Kylee @ [facility] claims there is a pending culture on the l knee wound. Patient/family oriented to hospital policies and general routines including ID bracelet, bed and alarms, visiting hours, pain management, procedures, bathroom and other care routines, personal items, smoking policy, room service/diet, and visiting hours. Information on how to activate the Rapid Response Team has been discussed. Patient/Family are encouraged to report perceived risks to care and to ask questions if they do not understand what they are told or what they should do.
[2025-08-30] MEDS: IPRATROPIUM 0.5 MG/ALBUTEROL SULFATE 2.5 MG (BASE) AMPUL.NEB 3 ML INHALATION (16:56)
[2025-08-30] MEDS: BUDESONIDE RESPULE NEB 0.5 MG/2 ML AMP INHALATION (16:56)
[2025-08-30 16:59] VITALS: PULSE 84; RESP 24; O2SAT 98
[2025-08-30 17:08] VITALS: PULSE 84; RESP 24; O2SAT 98
[2025-08-30] MEDS: POTASSIUM CHLORIDE 20 MEQ ER TABLET PO (17:09)
[2025-08-30] MEDS: FUROSEMIDE 40 MG TABLET PO (17:10)
[2025-08-30] MEDS: GABAPENTIN 300 MG CAPSULE PO (17:10)
[2025-08-30] MEDS: FERROUS SULFATE 325 MG TABLET BY MOUTH (17:10)
--- OUTSIDE RECORDS SUMMARY | 2025-08-30 17:43 | XMS_ITS | Encounter Summary ---
Author Organization [facility] Address [address] [place] [address] Care Team Providers Care Reduction Furnace Operator Helper Name Role Phone Salima Donahue MD Primary Care Provider [phone] Gordy Rodriguez MD Unavailable Unavailable Encounter Details Date Type Department Care Team (Late st Contact Info) Description 02/19/2019 Abstract [facility] CONVERSION [address] [place] [address] , Generic Conversion, Social History Tobacco Use [...] on filedocumented in this encounter Care Teams Reduction Furnace Operator Helper Relationship Specialty Start Date End Date Salima Donahue MD [address] [place] [id number] PCP - General INTERNAL MEDICINE 12/10/17 Gordy Rodriguez MD [address] [place] [address] [place] Lead Consultant INTERVENTIONAL CARDIOLOGY 09/24/18 documented as of this encounter
--- OUTSIDE RECORDS SUMMARY | 2025-08-30 17:43 | XMS_ITS | Encounter Summary ---
Author Organization [facility] Address [address] [place] [address] Care Team Providers Care Financial Examiner Name Role Phone Salima Donahue MD Primary Care Provider [phone] Claude Pinto MD Unavailable [phone] Gordy Rodriguez MD Unavailable Unavailable Encounter Details Date Type Department Care Team (Late st Contact Info) Description 11/28/2017 Abstract [facility] CONVERSION [address] [place] [address] , Generic MD Jenniffer Social History Tobacco [...] on filedocumented in this encounter Care Teams Financial Examiner Relationship Specialty Start Date End Date Salima Donahue MD [address] [place] [address] PCP - General INTERNAL MEDICINE 12/10/17 Claude Pinto MD [address] [place] [address] [place] [employer] Machines Teacher CARDIOVASCULAR DISEASE 12/10/17 09/27/18 Gordy Rodriguez MD [address] [place] [address] [place] Teacher INTERVENTIONAL CARDIOLOGY 09/24/18 documented as of this encounter
--- OUTSIDE RECORDS SUMMARY | 2025-08-30 17:43 | XMS_ITS | Clinical Summary ---
Author Organization [facility] Address [address] [place] [address] Care Team Providers Care Truck Jumper Name Role Phone Salima Donahue MD Primary [...] 165.1 cm (5' 5) 07/31/2022 2:58 PM TIRE FIXER Body Mass Index 23.16 07/31/2022 2:58 PM TIRE FIXER Plan of Treatment Upcoming Encounters Date Type Department Care Team (Late st Contact Info) Description 09/28/2025 2:30 PM TIRE FIXER Office Visit [facility] On[facility] and Hematology - [place] [address] [facility] [address] [place] [address] Dino Farfan MD [address] [facility] [address] [place] [address] Health Maintenance Due Date Last [...] 05/05/2032 Insurance MEDICARE PART A AND B [facility] SUPP [facility] Care Teams Truck Jumper Relationship Specialty Start Date End Date Salima Donahue MD [address] [place] [id number] PCP - General Internal Medicine 07/31/22
--- OUTSIDE RECORDS SUMMARY | 2025-08-30 17:43 | XMS_ITS | Clinical Summary ---
Author Organization [facility] Address [address] [place] [address] Care Team Providers Care Order Manager Name Role Phone Salima Donahue MD Primary Care Provider [phone] Gordy Rodriguez MD Unavailable Unavailable Allergies Active [...] 20 mg by mouth daily. Active Umeclidinium Berne (INCRUSE ELLIPTA) 62.5 MCG/INH AEROSOL POWDER, BREATH ACTIVATED Inhale 1 puff into the lungs daily. Active alendronate 70 MG tablet Take 70 mg by mouth every 7 days. Take in the morning with a full glass of water, on an empty stomach, and do not take anything else by mouth or lie down for the next 30 min. Active vitamin D2, ergocalciferol, 04635 UNITS capsule Take 50,000 Units by mouth [...] CHOLESTEROL 112 MG/DL 03/01/2019 4:04 AM CDT [facility] Comment:DESIRABLE: <200 TRIGLYCERIDES 59 MG/DL 03/01/2019 4:04 AM CDT [facility] Comment:<150 NORMAL HDL 56 >49 MG/DL 03/01/2019 4:04 AM CDT [facility] LDL (CALCULATED) 44 MG/DL 03/01/20 4:04 AM CDT [facility] Comment:<100 OPTIMAL VLDL CALCULATION 12 MG/DL 03/01/20 4:04 AM CDT [facility] Comment:REFERENCE RANGE NOT ESTABLISHED CHOL/HDL RATIO 2.0 03/01/2019 4:04 AM CDT [facility] Comment:REFERENCE RANGE NOT ESTABLISHED LDL/HDL 0.8 03/01/2019 4:04 AM CDT [facility] Comment:REFERENCE RANGE NOT ESTABLISHED NON HDL CHOLESTEROL 56 MG/DL 03/01/2019 4:04 AM CDT [facility] Comment:REFERENCE RANGE NOT ESTABLISHED 03/01/2019 3:14 AM CDT Dino Frye DO LABORATORY Final Result Performing Organization Address City/State/[facility] Co de Phone Number [facility] [address] [place] [address], [id number] from Last 3 Months or Most Recently Relevant to Health Maintenance Insurance MEDICAID MEDICARE MEDICARE MEDICAID Advance Directives Documents on File Type Date Recorded Patient Geographic Information Systems Engineer Expl anation Advance Directives and Living Will 03/02/2019 10:16 AM short form poa for health care Advance Directives and Living Will 03/02/2019 9:23 AM POLST Power of Cabinet Worker 01/17/2019 7:32 AM Advance Directives and Living [...] 10:34 AM 01/13/2019 3:34 PM Care Teams Order Manager Relationship Specialty Start Date End Date Salima Donahue MD [address] [place] [address] PCP - General INTERNAL MEDICINE 12/10/17 Gordy Rodriguez MD [address] [place] [address] [place] Business Unit Leader INTERVENTIONAL CARDIOLOGY 09/24/18
[2025-08-30 20:00] VITALS: PULSE 86; RESP 20; O2SAT 94
[2025-08-30] MEDS: guaiFENesin 12 HR 600 MG TABCR 1200 MG PO (21:02)
[2025-08-30] MEDS: ATORVASTATIN 40 MG TABLET PO (21:02)
[2025-08-30] MEDS: MELATONIN 5 MG TABLET PO (21:02)
[2025-08-30] MEDS: ALPRAZolam (*CRX) 0.5 MG TABLET PO (21:02)
[2025-08-31] VITALS (13 sets, daily range): BP systolic 97–109; BP diastolic 53–65; PULSE 76–102; RESP 18–30; TEMP 36.2–36.9; O2SAT 90–100
[2025-08-31] MEDS: BUDESONIDE RESPULE NEB 0.5 MG/2 ML AMP INHALATION ×2 (05:47→17:06)
[2025-08-31] MEDS: IPRATROPIUM 0.5 MG/ALBUTEROL SULFATE 2.5 MG (BASE) AMPUL.NEB 3 ML INHALATION ×4 (05:48→17:06)
[2025-08-31] MEDS: guaiFENesin 12 HR 600 MG TABCR 1200 MG PO ×2 (09:00→21:40)
[2025-08-31] MEDS: ESCITALOPRAM OXALATE 10 MG TABLET PO (09:02)
[2025-08-31] MEDS: GABAPENTIN 300 MG CAPSULE PO ×3 (09:02→17:22)
[2025-08-31] MEDS: FUROSEMIDE 40 MG TABLET PO ×2 (09:03→17:22)
[2025-08-31] MEDS: POTASSIUM CHLORIDE 20 MEQ ER TABLET PO ×2 (09:03→17:22)
[2025-08-31] MEDS: FERROUS SULFATE 325 MG TABLET BY MOUTH ×3 (09:03→17:22)
[2025-08-31] MEDS: MULTIVITAMINS THERAPEUTIC TAB (*BKC) 1 TABLET PO (09:03)
[2025-08-31] MEDS: ASPIRIN 81 MG ENTERIC TABLET PO (09:03)
[2025-08-31] MEDS: ROFLUMILAST 250 MCG TABLET 500 MCG BY MOUTH (09:03)
[2025-08-31] MEDS: SPIRONOLACTONE 25 MG TABLET PO (09:04)
[2025-08-31] MEDS: PANTOPRAZOLE 40 MG TABLET PO (09:04)
--- NOTE | 2025-08-31 10:41 | PCPTNOTE ---
Cancelled session. Reports she is not feeling well.
--- NOTE | 2025-08-31 11:02 | P.HP_ITS ---
H&P: HPI History of Present Illness Date/Time: 08/31/25 11:02 Chief Complaint: Rehab/ physical deconditioned Narrative: Patient is a 75 y/o female patient with medical history of CHF - EF of 40-45% left diastolic dysfunction, GERD, RLS, neuropathy, iron def anemia, hyperlipidemia, CVA, COPD on O2 @ 2 l, Small Valery Lung Cancer, HTN, seizures, who was admitted to [facility] bed for continued physical and occupational therapy prior to returning to her assisted living. at [facility] she presented to the ER with reports of falling out of her wheel chair. Patient is wheelchair-bound at the [facility], and reported she had slipped out of the chair onto her knees. patient had no LOC, no other injury, no injury to head. Patient had skin tear to the right knee on arrival. patient also reports the last 2 days has had increasing shortness of breath, to the point where she has had to sleep in her wheelchair. . She denies cough, fever, chills, headache, chest pain or distress. Patient was placed on BiPAP in the emergency department. She had a consult to Audiology Director and Pulmonology during her hospitalization. patient was treated for underlying pneumonia and acute on chronic respiratory failure with hypoxia and hypercapnia. Due to patient's extended hospitalization physical therapy had recommended placement to SNF/swing bed for continued strength training and endurance with physical and occupational therapy at which time patient was transferred to [facility]. 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 Chronic obstructive pulmonary disease Chronic kidney disease, stage 3 Pulmonary embolism (11/2021) Small cell lung cancer Status post chemoradiotherapy. Dyslipidemia Diastolic dysfunction Surgical History Surgical History History of incisional hernia repair History of inguinal hernia repair History of heart artery stent History of cardiac catheterization History of left nephrectomy At age 3, done for unclear reasons. History of abdominal aortic aneurysm repair Family History Family History Sibling Family history of arthritis Lung transplant status, bilateral COPD (chronic obstructive pulmonary disease) Colon cancer Father Melanoma Mother No problems noted. Social History Social History Social History: [id number]-[id number]: Isabela Ponce, friend. Code status: Full code. Smoking packs per day: 1 Smoking cigarettes per day: 20.0 Years smoked: 30 Smoking pack-years: 30.00 Smoking status: Former smoker Tobacco type: cigarettes Second hand tobacco smoke exposure: No Smoking end date: 09/13/10 Alcohol intake: never Alcohol use details: No alcohol since 2005. Substance use: never Substance use type: does not use Other substance usage details: one pack per day for 40 years Lack of Transportation: No Lack of Food: Never True Current Housing: I Have Housing Concerned About Future Housing: No Difficulty Paying Gas/Electric Bills: No Difficulty Paying for Meds: No Currently Unemployed: No Education: High School Diploma/GED Difficulty w/ Childcare or Family Care: No Additional living arrangements comments: Lives in assisted living. Wheelchair- bound due to right-sided deficits from prior CVA. Spiritual care concerns: No Meds Home Medications and Allergies Home Medications ?Medication ?Instructions ?Recorded ?Confirmed ?Type acetaminophen 500 mg capsule 500 mg PO Q6H PRN Pain (S elizabeth 11/24/19 08/30/25 History Score 1-3) aspirin 81 mg tablet,delayed 81 mg PO DAILY 11/24/19 1 10/31/24 History release (Adult Aspirin Regimen) atorvastatin 40 mg tablet 40 mg PO HS 11/24/19 5 History levetiracetam 250 mg tablet 250 mg PO Q12H 11/24/19 History (Keppra) melatonin 5 mg capsule 5 mg PO HS 11/24/19 08/30/25 History potassium chloride 20 mEq 20 meq PO BID 11/24/1908/30 History tablet,extended release multivitamin with folic acid 400 1 tablet PO DAILY 08/30/25 History mcg tablet (Daily-Annie (with folic acid)) pantoprazole 40 mg tablet,delayed 40 mg PO QAM #30 tab s 05/06/22 08/30/25 Rx release comp.stocking,knee,long,medium #12 ea 06/02/22 5 Rx furosemide 40 mg tablet (Lasix) 40 mg PO BID #60 tabs 06/02/22 08/30/25 Rx alprazolam 0.5 mg tablet 0.5 mg PO Q8-12H PRN Anxiety 06/29/23 08/30/25 History ferrous sulfate 325 mg (65 mg 325 mg PO TID 12/02/23 1 10/31/24 History iron) tablet Advair HFA 230 mcg-21 See Rx Instructions .Route 0 05/23/25 08/30/25 Rx mcg/actuation aerosol inhaler .COMPLEX #12 grams (fluticasone propion-salmeterol) Held on 08/30/25. Instructions: Resume on 09/06/25. Advair was discontinued due to systemic steroids in the hospital. Advised to follow-up with Dr. Nava for further recommendation. Also patient insurance wont cover Incruse and will benefit from BioSTLixent as add-on therapy albuterol sulfate 90 mcg/actuation 2 puff inhalation Q 6H PRN 07/06/25 08/30/25 Rx aerosol inhaler shortness of breath or wheez ing #8.5 grams escitalopram oxalate 10 mg tablet 10 mg PO DAILY 07/1808/30/25 History levocetirizine 5 mg tablet 5 mg PO QPM 07/18/25 History ropinirole 2 mg tablet 1 mg PO TID 07/18/25 5 History ergocalciferol (vitamin D2) 1,250 1,250 mcg PO WEEKLY 07/30/25 08/30/25 History mcg (50,000 unit) capsule (Vitamin D2) gabapentin 300 mg capsule 300 mg PO TID 07/30/2508/30 History spironolactone 25 mg tablet 25 mg PO DAILY 07/30/25 History (Aldactone) mucus clearing device #10 ea 08/04/25 08/30/25 Rx budesonide 0.5 mg/2 mL suspension 0.5 mg (2 mL) inhala tion Q12HRT 08/30/25 08/30/25 Rx for nebulization (Pulmicort) #30 mL buspirone 10 mg tablet 10 mg PO Q12HR #30 tabs 08/1408/30/25 Rx docusate sodium 100 mg capsule 100 mg PO Q12H PRN Cons tipation 08/30/25 08/30/25 Rx #30 caps guaifenesin 600 mg tablet, 1,200 mg (2 x 600 mg) PO Q1 2HR #30 08/30/25 08/30/25 Rx extended release 12 hr (Mucus tabs Relief ER) ipratropium 0.5 mg-albuterol 3 mg 3 ml inhalation Q4HR TWA #3 mL 08/30/25 08/30/25 Rx (2.5 mg base)/3 mL nebulization soln roflumilast 500 mcg tablet 500 mcg PO DAILY #30 tabs 1 10/31/24 08/30/25 Rx (Daliresp) Allergies Allergy/AdvReac Type Severity Reaction Status Date / Time Iodinated Contrast Media Allergy Unknown Rash Verified 08/30/25 15:40 latex Allergy Unknown Unknown Verified 08/30/25 15:40 adhesive tape AdvReac Rash Verified 08/30/25 15:40 nickel AdvReac Rash Verified 08/30/25 15:40 Vital Signs Vital Signs - 24 hr 08/30/25 15:24 08/30/25 15:30 08/30/25 16:28 Temperature 98 F Pulse Rate 94 Respiratory Rate 20 Blood Pressure 112/69 Pulse Oximetry 96 96 97 Oxygen Delivery Nasal Cannula Nasal Cannula Oxygen Flow Rate 2 2 08/30/25 16:59 08/30/25 17:08 08/30/25 20:00 Temperature Pulse Rate 84 84 86 Respiratory Rate 24 H 24 H 20 Blood Pressure Pulse Oximetry 98 98 94 Oxygen Delivery Nasal Cannula Oxygen Flow Rate 2 2 1 08/31/25 00:00 08/31/25 05:51 08/31/25 06:07 Temperature 98.5 F Pulse Rate 86 102 H 100 Respiratory Rate 18 20 20 Blood Pressure 107/59 L Pulse Oximetry 94 98 99 Oxygen Delivery Nasal Cannula Oxygen Flow Rate 1 1 1 08/31/25 08:00 08/31/25 10:15 08/31/25 10:26 Temperature 97.2 F L Pulse Rate 91 78 81 Respiratory Rate 18 20 20 Blood Pressure 109/65 Pulse Oximetry 93 97 100 Oxygen Delivery Nasal Cannula Oxygen Flow Rate 1 1 1 Exam Const: General: comfortable Other: on 1L supplemental oxygen HENMT: Face/Nose/Sinus: Normal nares present Mouth: Yes moist mucous membranes Eyes: General: appearance normal, both eyes and all related structures Pupils: Equal, round and reactive pupils present EOM: EOMs intact bilaterally Neck: Neck: supple Thyroid: thyroid normal Resp: Effort & Inspection: normal respiratory effort (on BiPap at this time. ) Auscultation: rhonchi left upper and right upper and diminished lung sounds bilateral in the lower lung cristina Cardio: Jugular venous distension: no JVD Rate: regular rate Rhythm: regular rhythm Heart sounds: S1 normal heart sound present and S2 normal heart sound present GI: GI Palp: Yes Soft to palpation Auscultation: normal bowel sounds : General: Yes bladder normal to palpation Skin: General skin exam: erythema (to the bilateral lower extremities, worse on left than right) Trauma: abrasion (left anterior knee) and laceration Wounds: wounds noted (right knee, laceration with steristrip/suture.) Neuro: Motor exam (neuro): Abnormal motor strength present (generalized weakness) Extrem: General: pedal edema bilaterally pitting and 1+ Psych: Mental Status: mental status grossly normal Affect: normal affect Results Labs Labs: Short CBC 08/17/25 Range/Units 06:44 WBC 8.3 (4.5-10.0) K/mm3 Hgb 11.3 L (12.0-15.0) g/dL Hct 37.5 (37.0-47.0) % Plt Count 302 (150-375) k/mm3 BMP 08/17/25 06:44 Sodium 141 Potassium 3.8 Chloride 98 Carbon Dioxide > 40 H BUN 24 H Creatinine 1.22 H Glucose 90 Calcium 9.1 Liver Function 08/17/25 Range/Units 06:44 Total Bilirubin 0.4 (0.2-1.3) mg/dL AST 26 (14-36) U/L ALT 19 (6-35) U/L Alkaline Phosphatase 74 (38-126) U/L Albumin 3.8 (3.5-5.1) g/dL Attestation: I personally reviewed all lab results ABG ABG results: 08/17/25 08:59 Puncture Site Right radial ABG pH 7.397 ABG pCO2 63.0 H* ABG pO2 79.0 L ABG PO2/FiO2 Ratio 2.47 ABG HCO3 37.9 H ABG O2 Saturation 95.3 ABG O2 Content 16.4 ABG Base Excess 10.8 A-a Gradient 75.5 Oxyhemoglobin 95.0 Carboxyhemoglobin 0.8 Reduced Hemoglobin 3.9 Total Hemoglobin 12.2 O2 Delivery Device Nasal cannula O2 Liters/Min 3.0 FiO2 32 Attestation: I personally reviewed and interpreted this ABG as follows: Imaging Chest x-ray: Attestation: I personally reviewed this imaging study Radiologist's impression: Chest X-Ray 08/17/25 07:42 IMPRESSION: 1. Suspect mild persistent right basilar airspace disease. Quality VTE Prophylaxis VTE prophylaxis: mechanical ordered - Patient's previous records reviewed on admission -ER notes reviewed in detail on admission -discussed all findings and current treatment plan with patient/Family/POA -Consultations reviewed for recommendations -Patient's disposition for safe discharge discussed with insurance case manager -radiology imaging, EKG and test results I have personally reviewed and interpreted unless otherwise specified Dictation performed by [employer] speech recognition software, therefore home coordinator variants and typographical errors may occur. Assessment and Plan Assessment and plan (1) Weakness: Code(s): R53.1 - Weakness Status: Acute Assessment and Plan: * PT and OT * Up to chair with all meals * Fall precautions (2) Chronic respiratory failure with hypoxia and hypercapnia: Code(s): J96.11 - Chronic respiratory failure with hypoxia; J96.12 - Chronic respiratory failure with hypercapnia Status: Acute Assessment and Plan: has history of gold grade 4, history of alpha-1 antitrypsin genotype mm * Supplemental oxygen 1 L at rest 2-3 with activity (3) Acute exacerbation of chronic obstructive pulmonary disease: Code(s): J44.1 - Chronic obstructive pulmonary disease with (acute) exacerbation Status: Acute Assessment and Plan: * Inhaler b.i.d. * Guaifenesin 1200 mg b.i.d. * Duo nebs q.4 * Completed steroids while inpatient * Supplemental oxygen when L at rest 3 with activity (4) Diastolic CHF: Qualifiers: Heart failure chronicity: unspecified Qualified Code(s): I50.30 - Unspecified diastolic (congestive) heart failure Code(s): I50.30 - Unspecified diastolic (congestive) heart failure Status: Chronic Assessment and Plan: echocardiogram shows 40-45% left ventricular diastolic dysfunction BNP 729 previous admission not in exacerbation * continue lasix BID and spironolactone (5) Laceration: Status: Acute Assessment and Plan: * applied Steri-Strips then sewed over the Steri-Strips to hold everything together. Tetanus updated at previous hospital. (6) CKD (chronic kidney disease) stage 3, GFR 30-59 ml/min: Qualifiers: Chronic kidney disease stage 3 subtype: unspecified whether 3a or 3b Qualified Code(s): N18.30 - Chronic kidney disease, stage 3 unspecified Code(s): N18.30 - Chronic kidney disease, stage 3 unspecified Status: Acute Assessment and Plan: * CKD stage 3 * Trend renal function Q 3 days * Avoid nephrotoxins * Encouraged oral hydration (7) Iron deficiency anemia: Code(s): D50.9 - Iron deficiency anemia, unspecified Status: Acute Assessment and Plan: * Continued ferrous sulfate (8) Dyslipidemia: Code(s): E78.5 - Hyperlipidemia, unspecified Status: Acute Assessment and Plan: * Continue atorvastatin (9) Seizure disorder: Code(s): G40.909 - Epilepsy, unspecified, not intractable, without status epilepticus Status: Chronic Assessment and Plan: * continue keppra Plan code status -DNR DVT: SCDs Disposition -patient admitted to [facility] bed for continued physical and occupational therapy to increase patient's strength and endurance prior to returning home. Prior Studies I have reviewed the following patient records and this information was taken into consideration when formulating the assessment and plan.: previous labs Consultations Consultations: I have discussed the care of this pt with the consulting providers. Time Spent with Patient Time with patient: 45 - 74 minutes Hospitalist [facility] Advance Care Plan I have confirmed that the patient's Advanced Care Plan is present, code status is documented, or surrogate decision maker is listed in patient medical record.: Yes Medication Reconciliation I have utilized all available resources to obtain, update and review the patients current medications (includes all prescriptions, OTC, herbals, cannabis, and nutritional supplements).: Yes The patient is not eligible for med reconciliation; the patient is in a emergent medical situation where delaying treatment would jeopardize the patients health.: No
[2025-08-31] MEDS: ALPRAZolam (*CRX) 0.5 MG TABLET PO (21:41)
[2025-08-31] MEDS: ATORVASTATIN 40 MG TABLET PO (21:41)
[2025-08-31] MEDS: MELATONIN 5 MG TABLET PO (21:41)
[2025-09-01] VITALS (13 sets, daily range): BP systolic 105–127; BP diastolic 65–68; PULSE 61–98; RESP 18–24; TEMP 36.5–36.9; O2SAT 92–100
[2025-09-01] MEDS: BUDESONIDE RESPULE NEB 0.5 MG/2 ML AMP INHALATION ×2 (05:44→17:04)
[2025-09-01] MEDS: IPRATROPIUM 0.5 MG/ALBUTEROL SULFATE 2.5 MG (BASE) AMPUL.NEB 3 ML INHALATION ×4 (05:44→17:04)
[2025-09-01] MEDS: ASPIRIN 81 MG ENTERIC TABLET PO (09:11)
[2025-09-01] MEDS: GABAPENTIN 300 MG CAPSULE PO ×3 (09:11→17:48)
[2025-09-01] MEDS: ROFLUMILAST 250 MCG TABLET 500 MCG BY MOUTH (09:11)
[2025-09-01] MEDS: POTASSIUM CHLORIDE 20 MEQ ER TABLET PO ×2 (09:11→17:48)
[2025-09-01] MEDS: guaiFENesin 12 HR 600 MG TABCR 1200 MG PO ×2 (09:11→22:01)
[2025-09-01] MEDS: PANTOPRAZOLE 40 MG TABLET PO (09:11)
[2025-09-01] MEDS: FUROSEMIDE 40 MG TABLET PO ×2 (09:11→17:49)
[2025-09-01] MEDS: ESCITALOPRAM OXALATE 10 MG TABLET PO (09:12)
[2025-09-01] MEDS: FERROUS SULFATE 325 MG TABLET BY MOUTH ×3 (09:12→17:48)
[2025-09-01] MEDS: MULTIVITAMINS THERAPEUTIC TAB (*BKC) 1 TABLET PO (09:12)
[2025-09-01] MEDS: SPIRONOLACTONE 25 MG TABLET PO (09:12)
--- NOTE | 2025-09-01 14:52 | PC.NURSE ---
1450 - Transfer of care report given to LEON Calles
[2025-09-01] MEDS: ATORVASTATIN 40 MG TABLET PO (22:02)
[2025-09-01] MEDS: MELATONIN 5 MG TABLET PO (22:03)
[2025-09-01] MEDS: ALPRAZolam (*CRX) 0.5 MG TABLET PO (22:03)
[2025-09-02] VITALS (9 sets, daily range): BP systolic 100–128; BP diastolic 52–67; PULSE 74–87; RESP 18–20; TEMP 36.1–36.8; O2SAT 93–100
[2025-09-02] MEDS: BUDESONIDE RESPULE NEB 0.5 MG/2 ML AMP INHALATION ×2 (05:46→18:53)
[2025-09-02] MEDS: IPRATROPIUM 0.5 MG/ALBUTEROL SULFATE 2.5 MG (BASE) AMPUL.NEB 3 ML INHALATION ×4 (05:47→18:53)
[2025-09-02] MEDS: ESCITALOPRAM OXALATE 10 MG TABLET PO (08:56)
[2025-09-02] MEDS: POTASSIUM CHLORIDE 20 MEQ ER TABLET PO ×2 (08:56→16:10)
[2025-09-02] MEDS: ROFLUMILAST 250 MCG TABLET 500 MCG BY MOUTH (08:56)
[2025-09-02] MEDS: PANTOPRAZOLE 40 MG TABLET PO (08:56)
[2025-09-02] MEDS: GABAPENTIN 300 MG CAPSULE PO ×3 (08:56→16:10)
[2025-09-02] MEDS: guaiFENesin 12 HR 600 MG TABCR 1200 MG PO ×2 (08:56→21:26)
[2025-09-02] MEDS: ASPIRIN 81 MG ENTERIC TABLET PO (08:56)
[2025-09-02] MEDS: FERROUS SULFATE 325 MG TABLET BY MOUTH ×3 (08:56→16:10)
[2025-09-02] MEDS: MULTIVITAMINS THERAPEUTIC TAB (*BKC) 1 TABLET PO (08:56)
[2025-09-02] MEDS: FUROSEMIDE 40 MG TABLET PO ×2 (08:56→16:10)
[2025-09-02] MEDS: SPIRONOLACTONE 25 MG TABLET PO (08:57)
[2025-09-02] MEDS: ACETAMINOPHEN 500 MG TABLET PO (11:59)
[2025-09-02] MEDS: ALPRAZolam (*CRX) 0.5 MG TABLET PO (17:45)
[2025-09-02] MEDS: ATORVASTATIN 40 MG TABLET PO (21:26)
[2025-09-02] MEDS: MELATONIN 5 MG TABLET PO (21:27)
[2025-09-03] VITALS (7 sets, daily range): BP systolic 113–126; BP diastolic 60–66; PULSE 81–96; RESP 17–20; TEMP 36.6–37; O2SAT 91–98
[2025-09-03] MEDS: BUDESONIDE RESPULE NEB 0.5 MG/2 ML AMP INHALATION ×2 (06:13→18:53)
[2025-09-03] MEDS: IPRATROPIUM 0.5 MG/ALBUTEROL SULFATE 2.5 MG (BASE) AMPUL.NEB 3 ML INHALATION ×4 (06:30→18:53)
[2025-09-03 07:20] LABS: Hematocrit 38.3 % (35.0-42.0); Hemoglobin 11.4 g/dL (11.7-13.8); Mean Corpuscular HGB Conc 29.8 g/dL (32-36); Mean Corpuscular Hemoglobin 28.2 pg (27.0-31.0); Mean Corpuscular Volume 94.8 fL (78.0-102.0); Platelet Count Result 300 K/mm3 (150-420); Red Blood Count 4.04 M/mm3 (4.20-5.40); White Blood Count 9.4 K/mm3 (4.8-10.8)
[2025-09-03 07:33] LABS: Alanine Aminotransferase 36 U/L (6-35); Albumin Level 4.0 g/dL (3.5-5.1); Alkaline Phosphatase 86 U/L (38-126); Anion Gap 6 mmol/L (4-12); Aspartate Amino Transferase 28 U/L (14-36); Bilirubin,Total 0.6 mg/dL (0.2-1.3); Blood Urea Nitrogen 23 mg/dL (7-17); Calcium 9.2 mg/dL (8.4-10.2); Carbon Dioxide 32 mmol/L (22-30); Chloride 103 mmol/L (98-107); Estimated CRCL calculation 35 ml/min; Estimated Glomerular Filt Rate 47; Glucose 87 mg/dL (65-110); Magnesium 2.0 mg/dL (1.6-2.3); Osmolality Calculated 294 mOsm/kg (285-295); Potassium 3.8 mmol/L (3.4-5.0); Sodium 141 mmol/L (137-145); Total Protein 6.8 g/dL (6.3-8.2)
[2025-09-03] MEDS: MULTIVITAMINS THERAPEUTIC TAB (*BKC) 1 TABLET PO (08:54)
[2025-09-03] MEDS: guaiFENesin 12 HR 600 MG TABCR 1200 MG PO ×2 (08:54→21:17)
[2025-09-03] MEDS: FUROSEMIDE 40 MG TABLET PO ×2 (08:54→16:58)
[2025-09-03] MEDS: FERROUS SULFATE 325 MG TABLET BY MOUTH ×3 (08:54→16:59)
[2025-09-03] MEDS: GABAPENTIN 300 MG CAPSULE PO ×3 (08:54→16:58)
[2025-09-03] MEDS: POTASSIUM CHLORIDE 20 MEQ ER TABLET PO ×2 (08:54→16:58)
[2025-09-03] MEDS: ASPIRIN 81 MG ENTERIC TABLET PO (08:54)
[2025-09-03] MEDS: PANTOPRAZOLE 40 MG TABLET PO (08:55)
[2025-09-03] MEDS: SPIRONOLACTONE 25 MG TABLET PO (08:55)
[2025-09-03] MEDS: ROFLUMILAST 250 MCG TABLET 500 MCG BY MOUTH (08:55)
[2025-09-03] MEDS: ESCITALOPRAM OXALATE 10 MG TABLET PO (08:55)
--- NOTE | 2025-09-03 09:06 | P.PNIM_ITS ---
Assessment and Plan Assessment and Plan (1) Weakness: Code(s): R53.1 - Weakness Status: Acute Assessment and Plan: * PT and OT * Up to chair with all meals * Fall precautions (2) Chronic respiratory failure with hypoxia and hypercapnia: Code(s): J96.11 - Chronic respiratory failure with hypoxia; J96.12 - Chronic respiratory failure with hypercapnia Status: Acute Assessment and Plan: has history of gold grade 4, history of alpha-1 antitrypsin genotype mm * Supplemental oxygen 1 L at rest 2-3 with activity (3) Acute exacerbation of chronic obstructive pulmonary disease: Code(s): J44.1 - Chronic obstructive pulmonary disease with (acute) exacerbation Status: Acute Assessment and Plan: * Inhaler b.i.d. * Guaifenesin 1200 mg b.i.d. * Duo nebs q.4 * Completed steroids while inpatient * Supplemental oxygen when L at rest 3 with activity (4) Diastolic CHF: Qualifiers: Heart failure chronicity: unspecified Qualified Code(s): I50.30 - Unspecified diastolic (congestive) heart failure Code(s): I50.30 - Unspecified diastolic (congestive) heart failure Status: Chronic Assessment and Plan: echocardiogram shows 40-45% left ventricular diastolic dysfunction BNP 729 previous admission not in exacerbation * continue lasix BID and spironolactone (5) Laceration: Status: Acute Assessment and Plan: * applied Steri-Strips then sewed over the Steri-Strips to hold everything together. Tetanus updated at previous hospital. * Steri-strips removed 09/03/2025 (6) CKD (chronic kidney disease) stage 3, GFR 30-59 ml/min: Qualifiers: Chronic kidney disease stage 3 subtype: unspecified whether 3a or 3b Qualified Code(s): N18.30 - Chronic kidney disease, stage 3 unspecified Code(s): N18.30 - Chronic kidney disease, stage 3 unspecified Status: Acute Assessment and Plan: * CKD stage 3 * Trend renal function Q 3 days * Avoid nephrotoxins * Encouraged oral hydration (7) Iron deficiency anemia: Code(s): D50.9 - Iron deficiency anemia, unspecified Status: Acute Assessment and Plan: * Continued ferrous sulfate (8) Dyslipidemia: Code(s): E78.5 - Hyperlipidemia, unspecified Status: Acute Assessment and Plan: * Continue atorvastatin (9) Seizure disorder: Code(s): G40.909 - Epilepsy, unspecified, not intractable, without status epilepticus Status: Chronic Assessment and Plan: * continue keppra Plan code status -DNR DVT: SCDs Disposition -patient admitted to [facility] for continued physical and occupational therapy to increase patient's strength and endurance prior to returning home. Medical Record Review I have reviewed the following patient records and this information was taken into consideration when formulating the assessment and plan.: previous labs, previous ER visits and previous hospitalizations Time Spent With Patient Time with patient: 15 - 25 minutes Subjective Date/time seen: 09/03/25 09:06 Interval history: liz is a 75 y/o female patient with medical history of CHF - EF of 40-45% left diastolic dysfunction, GERD, RLS, neuropathy, iron def anemia, hyperlipidemia, CVA, COPD on O2 @ 2 l, Small Valery Lung Cancer, HTN, seizures, who was admitted to [facility] bed for continued physical and occupational therapy. treated for underlying pneumonia and acute on chronic respiratory failure with hypoxia and hypercapnia 09/03/2025: Patient up in chair with no complaints progressing with PT/OT as expected. Minimal pain and SOB improving with ambulation. Denies CP, N/V, ABD pain or difficulty with urination or stool. Removed steri-strips from right knee tolerated well and healing with no signs of infection. Review of Systems Review of Systems: All systems reviewed & are unremarkable except as noted in HPI and below Exam Const: General: comfortable Other: on 1L supplemental oxygen HENMT: Face/Nose/Sinus: Normal nares present Mouth: Yes moist mucous membranes Eyes: General: appearance normal, both eyes and all related structures Pupils: Equal, round and reactive pupils present EOM: EOMs intact bilaterally Neck: Neck: supple Thyroid: thyroid normal Resp: Effort & Inspection: normal respiratory effort (on BiPap at this time. ) Auscultation: rhonchi left upper and right upper and diminished lung sounds bilateral in the lower lung cristina Cardio: Jugular venous distension: no JVD Rate: regular rate Rhythm: regular rhythm Heart sounds: S1 normal heart sound present and S2 normal heart sound present GI: Auscultation: normal bowel sounds : General: Yes bladder normal to palpation Bimanual exam- vagina & uterus : bladder normal to palpation Skin: General skin exam: erythema (to the bilateral lower extremities, worse on left than right), abrasion (left anterior knee), laceration and wounds noted (right knee, laceration with steristrip/suture.) Trauma: abrasion (left anterior knee) and laceration Wounds: wounds noted (right knee, laceration with steristrip/suture.) Neuro: Cranial nerves: Yes Equal, round and reactive pupils present Motor exam (neuro): Abnormal motor strength present (generalized weakness) Extrem: General: pedal edema bilaterally pitting and 1+ Psych: Mental Status: mental status grossly normal Affect: normal affect Objective Data Vital Signs Vital Signs: Vital Signs - 24 hr 09/02/25 16:00 09/02/25 20:00 09/03/25 00:00 Temperature 97.8 F 98.6 F Pulse Rate 80 78 95 Respiratory Rate 18 20 20 Blood Pressure 114/64 126/66 Pulse Oximetry 95 95 91 Oxygen Delivery Nasal Cannula Nasal Cannula Nasal Cannula Oxygen Flow Rate 1 1 1 09/03/25 06:10 Temperature Pulse Rate 81 Respiratory Rate 18 Blood Pressure Pulse Oximetry 94 Oxygen Delivery Oxygen Flow Rate 1 Intake/Output Intake/Output: Intake & Output 08/31/25 09/01/25 09/02/25 09/03/25 23:59 23:59 23:59 23:59 Intake Total 1040 1540 1100 350 Output Total 500 Balance 1040 1040 1100 350 Meds/Results Medications: Active Medications Generic Name Dose Route Start Last Admin Trade Name Freq PRN Reason Stop Dose Admin Acetaminophen 500 mg 08/30/25 16:26 09/02/25 11:59 Acetaminophen 500 Mg Tablet PO 500 mg Q6H PRN Administration Pain (Scale Score 1-3) Albuterol 2 puff 08/30/25 16:26 Albuterol Sulfate (*Sp) Inhaler INHALATION Q6H PRN Shortness Of Breath Or Wheezing Albuterol/Ipratropium 3 ml 08/30/25 18:30 09/03/25 06:30 Ipratropium 0.5 Mg/Albuterol Sulfate 2.5 Mg (Base) Ampul.Neb 3 Ml INHALATION 3 ml [id number] JESSIE Administration Alprazolam 0.5 mg 08/30/25 16:26 09/02/25 17:45 Alprazolam (*Crx) 0.5 Mg Tablet PO 0.5 mg Q8HR PRN Administration Anxiety Aspirin 81 mg 08/31/25 09:00 09/03/25 08:54 Aspirin 81 Mg Enteric Tablet PO 81 mg DAILY JESSIE Administration Atorvastatin Calcium 40 mg 08/30/25 21:00 09/02/25 21:26 Atorvastatin 40 Mg Tablet PO 40 mg HS JESSIE Administration Budesonide 0.5 mg 08/30/25 18:30 09/03/25 06:13 Budesonide Respule Neb 0.5 Mg/2 Ml Amp INHALATION 0.5 mg Q12HRT JESSIE Administration Buspirone HCl 10 mg 08/30/25 21:00 09/03/25 08:54 Buspirone Hcl 10 Mg Tablet PO 10 mg Q12HR JESSIE Administration Docusate Sodium 100 mg 08/30/25 16:26 Docusate Sodium 100 Mg Capsule PO Q12H PRN Constipation Ergocalciferol 1,250 mcg 09/03/25 09:00 Ergocalciferol (Vitamin D2) 1,250 Mcg (50,000 Units) Capsule PO WEEKLY JESSIE Escitalopram Oxalate 10 mg 08/31/25 09:00 09/03/25 08:55 Escitalopram Oxalate 10 Mg Tablet PO 10 mg DAILY JESSIE Administration Ferrous Sulfate 325 mg 08/30/25 17:00 09/03/25 08:54 Ferrous Sulfate 325 Mg Tablet BY MOUTH 325 mg TID JESSIE Administration Furosemide 40 mg 08/30/25 17:00 09/03/25 08:54 Furosemide 40 Mg Tablet PO 40 mg BID JESSIE Administration Gabapentin 300 mg 08/30/25 17:00 09/03/25 08:54 Gabapentin 300 Mg Capsule PO 300 mg TID JESSIE Administration Guaifenesin 1,200 mg 08/30/25 21:00 09/03/25 08:54 Guaifenesin 12 Hr 600 Mg Tabcr PO 1,200 mg Q12HR JESSIE Administration Levetiracetam 250 mg 08/30/25 21:00 09/03/25 08:54 Levetiracetam 250 Mg Tablet PO 250 mg Q12HR JESSIE Administration Melatonin 5 mg 08/30/25 21:00 09/02/25 21:27 Melatonin 5 Mg Tablet PO 5 mg HS JESSIE Administration Multivitamins Therapeutic 1 tablet 08/31/25 09:00 09/03/25 08:54 Multivitamins Therapeutic Tab (*Bkc) PO 1 tablet DAILY JESSIE Administration Ondansetron HCl 4 mg 08/30/25 16:28 Ondansetron Hcl Odt 4 Mg Tablet PO Q6H PRN Nausea And Vomiting Pantoprazole Sodium 40 mg 08/31/25 09:00 09/03/25 08:55 Pantoprazole 40 Mg Tablet PO 40 mg QAM JESSIE Administration Potassium Chloride 20 meq 08/30/25 17:00 09/03/25 08:54 Potassium Chloride 20 Meq Er Tablet PO 20 meq BID JESSIE Administration Roflumilast 500 mcg 08/31/25 09:00 09/03/25 08:55 Roflumilast 250 Mcg Tablet BY MOUTH 500 mcg DAILY JESSIE Administration Ropinirole HCl 1 mg 08/30/25 17:00 09/03/25 08:55 Ropinirole Hcl 1 Mg Tablet PO 1 mg TID JESSIE Administration Spironolactone 25 mg 08/31/25 09:00 09/03/25 08:55 Spironolactone 25 Mg Tablet PO 25 mg DAILY JESSIE Administration Labs Labs: Laboratory Results - last 24 hr 09/03/25 07:06 WBC 9.4 RBC 4.04 L Hgb 11.4 L Hct 38.3 MCV 94.8 MCH 28.2 MCHC 29.8 L RDW 15.1 H Plt Count 300 MPV 9.8 Sodium 141 Potassium 3.8 Chloride 103 Carbon Dioxide 32 H Anion Gap 6 BUN 23 H Creatinine 1.14 H Estim Creat Clear Calc 35 Estimated GFR 47 L Glucose 87 Calculated Osmolality 294 Calcium 9.2 Magnesium 2.0 Total Bilirubin 0.6 AST 28 ALT 36 H Alkaline Phosphatase 86 Total Protein 6.8 Albumin 4.0 Attestation: I personally reviewed all lab results Quality VTE Prophylaxis VTE prophylaxis: mechanical ordered -Patient's previous records reviewed on admission -ER notes reviewed in detail on admission -discussed all findings and current treatment plan with patient/Family/POA -Consultations reviewed for recommendations -Patient's disposition for safe discharge discussed with shelter case manager -radiology imaging, EKG and test results I have personally reviewed and interpreted unless otherwise specified Dictation performed by [employer] direct speech recognition software, therefore care analyst variants and typographical errors may occur. Hospitalist MIPS Advance Care Plan I have confirmed that the patient's Advanced Care Plan is present, code status is documented, or surrogate decision maker is listed in patient medical record.: Yes Medication Reconciliation I have utilized all available resources to obtain, update and review the patients current medications (includes all prescriptions, OTC, herbals, cannabis, and nutritional supplements).: Yes The patient is not eligible for med reconciliation; the patient is in a emergent medical situation where delaying treatment would jeopardize the patients health.: No
[2025-09-03] MEDS: ERGOCALCIFEROL (VITAMIN D2) 1,250 MCG (50,000 UNITS) CAPSULE 1250 MCG PO (10:16)
[2025-09-03] MEDS: ALPRAZolam (*CRX) 0.5 MG TABLET PO ×2 (11:14→19:42)
[2025-09-03] MEDS: MELATONIN 5 MG TABLET PO (21:17)
[2025-09-03] MEDS: ACETAMINOPHEN 500 MG TABLET PO (21:18)
[2025-09-03] MEDS: ATORVASTATIN 40 MG TABLET PO (21:18)
[2025-09-04] VITALS (10 sets, daily range): BP systolic 106–118; BP diastolic 58–68; PULSE 74–98; RESP 16–20; TEMP 36.4–37.1; O2SAT 93–100
[2025-09-04] MEDS: IPRATROPIUM 0.5 MG/ALBUTEROL SULFATE 2.5 MG (BASE) AMPUL.NEB 3 ML INHALATION ×4 (05:41→18:27)
[2025-09-04] MEDS: BUDESONIDE RESPULE NEB 0.5 MG/2 ML AMP INHALATION ×2 (05:41→18:27)
[2025-09-04] MEDS: ESCITALOPRAM OXALATE 10 MG TABLET PO (09:39)
[2025-09-04] MEDS: GABAPENTIN 300 MG CAPSULE PO ×3 (09:39→16:45)
[2025-09-04] MEDS: SPIRONOLACTONE 25 MG TABLET PO (09:39)
[2025-09-04] MEDS: guaiFENesin 12 HR 600 MG TABCR 1200 MG PO ×2 (09:39→21:31)
[2025-09-04] MEDS: PANTOPRAZOLE 40 MG TABLET PO (09:39)
[2025-09-04] MEDS: ASPIRIN 81 MG ENTERIC TABLET PO (09:39)
[2025-09-04] MEDS: ROFLUMILAST 250 MCG TABLET 500 MCG BY MOUTH (09:39)
[2025-09-04] MEDS: FERROUS SULFATE 325 MG TABLET BY MOUTH ×3 (09:39→16:46)
[2025-09-04] MEDS: FUROSEMIDE 40 MG TABLET PO ×2 (09:39→16:46)
[2025-09-04] MEDS: MULTIVITAMINS THERAPEUTIC TAB (*BKC) 1 TABLET PO (09:39)
[2025-09-04] MEDS: POTASSIUM CHLORIDE 20 MEQ ER TABLET PO ×2 (09:40→16:46)
[2025-09-04] MEDS: ALPRAZolam (*CRX) 0.5 MG TABLET PO ×2 (14:52→21:32)
--- NOTE | 2025-09-04 18:50 | PC.NURSE ---
ASSUMED CARE. REPORT RECEIVED FROM TERI QUINTERO.
[2025-09-04] MEDS: ATORVASTATIN 40 MG TABLET PO (21:32)
--- NOTE | 2025-09-04 21:55 | PC.NURSE ---
PATIENT IS CURRENTLY SITTING UP IN WHEEL CHAIR. DOES NOT WANT TO GO TO BED AT THIS TIME. STATES SHE IS COMFORTABLE. CALL LIGHT IN REACH
[2025-09-04] MEDS: MELATONIN 5 MG TABLET PO (23:53)
[2025-09-05] VITALS (7 sets, daily range): BP systolic 108–111; BP diastolic 59–70; PULSE 71–100; RESP 16–20; TEMP 36.4; O2SAT 90–100
[2025-09-05] MEDS: IPRATROPIUM 0.5 MG/ALBUTEROL SULFATE 2.5 MG (BASE) AMPUL.NEB 3 ML INHALATION ×2 (05:54→10:23)
[2025-09-05] MEDS: BUDESONIDE RESPULE NEB 0.5 MG/2 ML AMP INHALATION (05:54)
--- NOTE | 2025-09-05 06:41 | PC.NURSE ---
Assisted to get dressed and up to w/c.. O2 @1L per n.c. in place. [email or web address].
[2025-09-05] MEDS: FUROSEMIDE 40 MG TABLET PO (08:08)
[2025-09-05] MEDS: SPIRONOLACTONE 25 MG TABLET PO (08:08)
[2025-09-05] MEDS: POTASSIUM CHLORIDE 20 MEQ ER TABLET PO (08:08)
[2025-09-05] MEDS: FERROUS SULFATE 325 MG TABLET BY MOUTH ×2 (08:08→11:59)
[2025-09-05] MEDS: ROFLUMILAST 250 MCG TABLET 500 MCG BY MOUTH (08:08)
[2025-09-05] MEDS: guaiFENesin 12 HR 600 MG TABCR 1200 MG PO (08:08)
[2025-09-05] MEDS: ESCITALOPRAM OXALATE 10 MG TABLET PO (08:08)
[2025-09-05] MEDS: GABAPENTIN 300 MG CAPSULE PO ×2 (08:08→12:00)
[2025-09-05] MEDS: ASPIRIN 81 MG ENTERIC TABLET PO (08:08)
[2025-09-05] MEDS: MULTIVITAMINS THERAPEUTIC TAB (*BKC) 1 TABLET PO (08:08)
[2025-09-05] MEDS: PANTOPRAZOLE 40 MG TABLET PO (08:08)
--- NOTE | 2025-09-05 09:05 | P.DS_ITS ---
DS: Admitting Diagnosis Discharge Date 09/05/2025 Admitting Diagnosis REHAB DS: Discharge Diagnosis Discharge Diagnosis (1) Weakness: Code(s): R53.1 - Weakness Status: Acute (2) Chronic respiratory failure with hypoxia and hypercapnia: Code(s): J96.11 - Chronic respiratory failure with hypoxia; J96.12 - Chronic respiratory failure with hypercapnia Status: Acute (3) Acute exacerbation of chronic obstructive pulmonary disease: Code(s): J44.1 - Chronic obstructive pulmonary disease with (acute) exacerbation Status: Acute (4) Diastolic CHF: Qualifiers: Heart failure chronicity: unspecified Qualified Code(s): I50.30 - Unspecified diastolic (congestive) heart failure Code(s): I50.30 - Unspecified diastolic (congestive) heart failure Status: Chronic (5) Laceration: Status: Acute (6) CKD (chronic kidney disease) stage 3, GFR 30-59 ml/min: Qualifiers: Chronic kidney disease stage 3 subtype: unspecified whether 3a or 3b Qualified Code(s): N18.30 - Chronic kidney disease, stage 3 unspecified Code(s): N18.30 - Chronic kidney disease, stage 3 unspecified Status: Acute (7) Iron deficiency anemia: Code(s): D50.9 - Iron deficiency anemia, unspecified Status: Acute (8) Dyslipidemia: Code(s): E78.5 - Hyperlipidemia, unspecified Status: Acute (9) Seizure disorder: Code(s): G40.909 - Epilepsy, unspecified, not intractable, without status epilepticus Status: Chronic DS: Summary Hospital Course Reason for hospitalization: REHAB Hospital Course: Mechanical fall with generalized weakness and acute on chronic respiratory fa ilure in the setting of COPD exacerbation. Hospital Course: The patient was a 75-year-old female with a complex medical history including chronic respiratory failure on home oxygen, severe COPD, diastolic CHF, CKD stage 3, seizure disorder, prior CVA with residual right-sided weakness, and small cell lung cancer status post chemoradiation. She initially presented to the emergency department after slipping from her wheelchair onto her knees at her assisted living facility. There was no loss of consciousness or head injury. She sustained a laceration to the right knee. At presentation, she also reported progressive shortness of breath over two days, requiring her to sleep upright in her wheelchair. She denied fever, cough, chest pain, or infectious symptoms. She required BiPAP support in the emergency department and was diagnosed with acute on chronic respiratory failure with hypoxia and hypercapnia and a COPD exacerbation, with concern for underlying pneumonia. Pulmonology and cardiology were consulted. She was treated with systemic steroids, nebulized bronchodilators, inhaled corticosteroids, mucolytics, antibiotics, and supplemental oxygen with gradual improvement in respiratory status. Oxygen requirements were weaned to 1 L at rest and 2?3 L with activity. Heart failure remained stable without evidence of acute exacerbation, and diuretics were continued. Renal function remained stable at CKD stage 3 with monitoring and avoidance of nephrotoxins. Iron deficiency anemia was managed with continued oral iron therapy. Her right knee laceration was managed with Steri-Strips and suturing, and tetanus immunization had been updated at the prior facility. Due to prolonged hospitalization, physical deconditioning, and baseline wheelchair dependence, physical and occupational therapy recommended continued rehabilitation. She was therefore transferred to the [facility] bed for skilled therapy prior to return to assisted living. At discharge, the patient had returned to her baseline functional and respiratory status, remained wheelchair-bound, and was medically stable. Status at Discharge Functional status at discharge: wheelchair bound Overall status at discharge: patient is back to baseline Time Spent with Patient Time attestation: Total time spent providing and/or coordinating discharge services: Time spent: Greater than 30 minutes Exam Const: General: comfortable Other: on 1L supplemental oxygen HENMT: Face/Nose/Sinus: Normal nares present Mouth: Yes moist mucous membranes Eyes: General: appearance normal, both eyes and all related structures Pupils: Equal, round and reactive pupils present EOM: EOMs intact bilaterally Neck: Neck: supple Thyroid: thyroid normal Resp: Effort & Inspection: normal respiratory effort (on BiPap at this time. ) Auscultation: rhonchi left upper and right upper and diminished lung sounds bilateral in the lower lung cristina Cardio: Jugular venous distension: no JVD Rate: regular rate Rhythm: regular rhythm Heart sounds: S1 normal heart sound present and S2 normal heart sound present GI: Auscultation: normal bowel sounds : General: Yes bladder normal to palpation Bimanual exam- vagina & uterus: bladder normal to palpation Skin: General skin exam: erythema (to the bilateral lower extremities, worse on left than right), abrasion (left anterior knee), laceration and wounds noted (right knee, laceration with steristrip/suture.) Trauma: abrasion (left anterior knee) and laceration Wounds: wounds noted (right knee, laceration with steristrip/suture.) Neuro: Cranial nerves: Yes Equal, round and reactive pupils present Motor exam (neuro): Abnormal motor strength present (generalized weakness) Extrem: General: pedal edema bilaterally pitting and 1+ Psych: Mental Status: mental status grossly normal Affect: normal affect Discharge Plan Discharge Attending physician on discharge: Demarcus Amezcua Consulting providers: Evon Villarreal Discharging Clinician: Evon Villarreal Anticipated Discharge Date/Time: 09/05/25 09:06 Patient Disposition: NH Residential/Asst Living Activity: as tolerated Diet: heart healthy Patient Instructions: Antibiotic Form, Acetaminophen (By mouth), Heart Failure (DC), Fall Prevention for Older Adults (DC), Using Oxygen at Home (DC) Patient Language: Greenlandic Stand Alone Forms: General Discharge Information, Long-Term Discharge Follow-up/Referrals: Oli Meyers DO [Physician, Cardiology] Salima Donahue MD [Primary Care Provider, Internal Medicine] - 2 weeks Rik Alejandro MD [Physician, Orthopedics] Alex Nava MD [Physician, Pulmonology] Discharge Medications: New ipratropium-albuterol 0.5 mg-3 mg(2.5 mg base)/3 mL solution for nebulization 3 ml inhalation Q4HWA Qty: 90 0RF Rx Instructions: J96.12 J44.1 NPI # [id number] Continued multivitamin with folic acid [Daily-Annie (with folic acid)] 400 mcg tablet 1 tablet PO DAILY gabapentin 300 mg capsule 300 mg PO TID Qty: 90 0RF budesonide [Pulmicort] 0.5 mg/2 mL Suspension For Nebulization 0.5 mg inhalation Q12HRT Qty: 30 0RF ropinirole 2 mg tablet 1 mg PO TID escitalopram oxalate 10 mg tablet 10 mg PO DAILY levocetirizine 5 mg tablet 5 mg PO QPM ferrous sulfate 325 mg (65 mg iron) tablet 325 mg PO TID potassium chloride 20 mEq tablet extended release 20 meq PO BID melatonin 5 mg capsule 5 mg PO HS levetiracetam [Keppra] 250 mg tablet 250 mg PO Q12H atorvastatin 40 mg tablet 40 mg PO HS aspirin [Adult Aspirin Regimen] 81 mg tablet,delayed release (DR/EC) 81 mg PO DAILY acetaminophen 500 mg capsule 500 mg PO Q6H PRN (Reason: Pain (Scale Score 1-3)) (DME) comp.stocking,knee,long,medium Misc See Rx Instructions .Route Qty: 12 0RF Rx Instructions: As directed furosemide [Lasix] 40 mg tablet 40 mg PO BID Qty: 60 0RF fluticasone propion-salmeterol [Advair HFA] 230-21 mcg/actuation HFA aerosol inhaler See Rx Instructions .ROUTE .COMPLEX Qty: 12 6RF Dose Instruction: Inhale 2 puffs by mouth twice daily. Rx Instructions: Inhale 2 puffs by mouth twice daily. alprazolam 0.5 mg tablet 0.5 mg PO Q8-12H PRN (Reason: Anxiety) spironolactone [Aldactone] 25 mg tablet 25 mg PO DAILY ergocalciferol (vitamin D2) [Vitamin D2] 1,250 mcg (50,000 unit) capsule 1,250 mcg PO WEEKLY Patient Comments: Takes on Sundays (DME) mucus clearing device Device See Rx Instructions .Route Qty: 10 0RF Rx Instructions: As directed pantoprazole 40 mg Tablet,Delayed Release (Dr/Ec) 40 mg PO QAM Qty: 30 0RF buspirone 10 mg Tablet 10 mg PO Q12HR Qty: 30 0RF docusate sodium 100 mg Capsule 100 mg PO Q12H PRN (Reason: Constipation) Qty: 30 0RF roflumilast [Daliresp] 500 mcg Tablet 500 mcg PO DAILY Qty: 30 0RF guaifenesin [Mucus Relief ER] 600 mg Tablet Extended Release 12hr 1,200 mg PO Q12HR Qty: 30 0RF albuterol sulfate 90 mcg/actuation HFA aerosol inhaler 2 puff inhalation Q6H PRN (Reason: shortness of breath or wheezing) Qty: 8.5 3RF Rx Instructions: Use with spacer. Date of admission: 08/30/25 15:00 Primary Care Provider: Salima Donahue Admitting Provider: Demarcus Amezcua Attending physician on admission: Demarcus Amezcua Condition: Improved Quality VTE Prophylaxis VTE prophylaxis: mechanical ordered -Patient's previous records reviewed on admission -ER notes reviewed in detail on admission -discussed all findings and current treatment plan with patient/Family/POA -Consultations reviewed for recommendations -Patient's disposition for safe discharge discussed with therapeutic case manager -radiology imaging, EKG and test results I have personally reviewed and interpreted unless otherwise specified Dictation performed by [employer] direct speech recognition software, therefore promotions team leader variants and typographical errors may occur. Hospitalist MIPS Heart Failure (Exclusion) Patient has history of Heart Transplant or Left Ventricular Assistive Device?: No IF YES, STOP HERE Heart Failure (Qualifier) Patient has current or prior documentation of LVEF less than or equal to 40%, or mod/servere depressed LVSF?: No IF NO, STOP HERE
--- NOTE | 2025-09-05 10:52 | PC.NURSE ---
Discharge instructions discussed with patient, states understanding.
--- NOTE | 2025-09-05 12:55 | PC.NURSE ---
Transported out of facility via wheel chair with personal O2, left by personal vehicle.
--- NOTE | 2025-09-06 10:12 | PC.NURSE ---
Call back completed, all meds received, doesn't have neb machine yet, Care Coordination looking in to the machine not being delivered, no other questions
== END 2025-09-05 12:55 | DRG 947 ==
PROVIDERS: Nurse Practitioner Family; Admitting Provider Internal Medicine; PCP Internal Medicine; Visit Provider Internal Medicine
DX: R53.1 Weakness (principal); J18.9 Pneumonia, unspecified organism; J96.21 Acute and chronic respiratory failure with hypoxia; J96.22 Acute and chronic respiratory failure with hypercapnia; J44.1 Chronic obstructive pulmonary disease with (acute) exacerbation; I13.0 Hypertensive heart and chronic kidney disease with heart failure and stage 1 through stage 4 chronic kidney disease, or unspecified chronic kidney disease; I50.32 Chronic diastolic (congestive) heart failure; I69.351 Hemiplegia and hemiparesis following cerebral infarction affecting right dominant side; S81.011D Laceration without foreign body, right knee, subsequent encounter; D50.9 Iron deficiency anemia, unspecified; E78.5 Hyperlipidemia, unspecified; F41.8 Other specified anxiety disorders; G40.909 Epilepsy, unspecified, not intractable, without status epilepticus; N18.30 Chronic kidney disease, stage 3 unspecified; W19.XXXD Unspecified fall, subsequent encounter; Z99.81 Dependence on supplemental oxygen; Z85.118 Personal history of other malignant neoplasm of bronchus and lung; Z92.21 Personal history of antineoplastic chemotherapy; Z92.3 Personal history of irradiation; Z99.3 Dependence on wheelchair; Z86.711 Personal history of pulmonary embolism; Z90.5 Acquired absence of kidney; Z87.891 Personal history of nicotine dependence; Z66 Do not resuscitate
CPT/HCPCS: 36415; 80053; 83735; 85027; 94640; 97110; 97161; 97165; 97530; A9270